=== PATIENT | female | born 1970 | race African-American/Black ===

== ENCOUNTER 2016-03-10 07:19 | Emergency (ER) | payer OTHER ==
[2016-03-10 07:27] VITALS: BMI 36.0
--- NOTE | 2016-03-10 08:26 | PDOC ---
*Physical Exam - Vital Signs Last Vital Signs Temp Pulse Resp BP Pulse Ox 98.1 F 80 20 132/78 100 03/10/16 07:24 03/10/16 07:24 03/10/16 07:24 03/10/16 07:24 03/10/16 07:24 - Physical Exam Comments: 03/10/16 08:25 Pt seen by the Advanced Practice Provider under my direct supervision Pt interviewed and examined Ancillary studies reviewed I agree with plan as outlined by the Advanced Practice Provider 03/10/16 08:26 ED Treatment Course - LABORATORY CBC & Chemistry Diagram: 03/10/16 08:00 03/10/16 08:00 *DC/Admit/Observation/Transfer Diagnosis at time of Disposition: Epigastric abdominal pain, Midsternal chest pain - Discharge Dispostion Disposition: HOME Condition at time of disposition: Improved - Referrals Referrals: Asad Angel MD [Staff Physician] - Richard Olivares MD [Primary Care Provider] - - Patient Instructions Printed Discharge Instructions: DI for Dyspepsia Additional Instructions: Continue taking medication as previously prescribed and if symptoms return or worsen please return to ED. Otherwise follow-up with your PCP
[2016-03-10 08:27] LABS: BASOPHIL 1.2 % (0-2.0); EOSINOPHIL 1.5 % (0-4.5); MCH 27.3 pg (25.7-33.7); MCHC 32.1 g/dl (32.0-36.0); MEAN CELL VOLUME 85.1 fl (80-96); NEUTROPHILS 63.7 % (42.8-82.8); PLATELET COUNT 298 K/MM3 (134-434); RDW 14.8 % (11.6-15.6); WHITE BLOOD COUNT 6.6 K/mm3 (4.0-10.0)
[2016-03-10 08:47] LABS: ALBUMIN 3.9 g/dl (3.4-5.0); ANION GAP 6 (8-16); CALCIUM 8.6 mg/dL (8.5-10.1); CO2 21 mmol/L (21-32); CREATININE 0.8 mg/dL (0.55-1.02); GLUCOSE,RANDOM 88 mg/dL (74-106); SGOT/AST 11 U/L (15-37); SGPT/ALT 12 U/L (12-78)
[2016-03-10 08:52] LABS: ALK PHOS 62 U/L (45-117); BILIRUBIN,TOTAL 0.4 mg/dL (0.2-1.0); TROPONIN I < 0.02 ng/ml (0.00-0.05)
--- NOTE | 2016-03-10 08:53 | PDOC ---
History of Present Illness - General Chief Complaint: Chest Pain Stated Complaint: CHEST PAIN Time Seen by Provider: 03/10/16 07:33 History Source: Patient, Unavil. due to pt. cond. - History of Present Illness Initial Comments: 03/10/16 08:29 45 y/o female presents to the emergency room with complaints of midsternal pressure after eating oatmeal while at work today. Patient initially thought it might up in her acid reflux took her Pepcid in hope of relief of symptoms. Patient states symptoms did subside slightly but continued also and was concerned for her heart and decided to go to the ER. 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 Patient describes the pain as a pressure as if something is in her mid sternal region but denies any radiation to her left side, diaphoresis, nausea, limitations, or shortness of breath. Timing/Duration: changing over time Severity: mild Associated Symptoms: reports: chest pain Past History - Past Medical History Allergies/Adverse Reactions: Allergies Allergy/AdvReac Type Severity Reaction Status Date / Time No Known Allergies Allergy Verified 03/10/16 07:23 Home Medications: Ambulatory Orders Famotidine [Pepcid] 20 mg PO DAILY #30 tablet 02/12/16 Naproxen [Naprosyn -] 500 mg PO PRN PRN 02/12/16 GI Disorders: No Suicide Attempt (Hx): No Other medical history: migraines - Reproductive History LMP Normal: Yes Is Patient Now?: No - Immunization History Immunization Up to Date: Yes - Psycho/Social/Smoking Cessation Hx Anxiety: No Suicidal Ideation: No Smoking Status: No Smoking History: Former smoker Have you smoked in the past 12 months: No Number of Cigarettes Smoked Daily: 0 If you are a former smoker, when did you quit?: 13 Information on smoking cessation initiated: No Hx Alcohol Use: No Drug/Substance Use Hx: No Substance Use Type: None Patient Lives Alone: No Lives with/in: spouse/SO Review of Systems - Review of Systems Able to Perform ROS?: Yes Constitutional: No: Symptoms Reported HEENTM: No: Symptoms Reported Respiratory: No: Symptoms reported Cardiac (ROS): Yes: Chest Pain ABD/GI: Yes: Indigestion : No: Symptoms Reported Musculoskeletal: No: Symptoms Reported Integumentary: No: Symptoms Reported Neurological: No: Symptoms reported *Physical Exam - Vital Signs Last Vital Signs Temp Pulse Resp BP Pulse Ox 98.1 F 80 20 132/78 100 03/10/16 07:24 03/10/16 07:24 03/10/16 07:24 03/10/16 07:24 03/10/16 07:24 - Physical Exam General Appearance: Yes: Nourished, Appropriately Dressed. No: Apparent Distress HEENT: positive: EOMI, JOSE JUAN. negative: Pale Conjunctivae Neck: positive: Supple Respiratory/Chest: positive: Lungs Clear, Normal Breath Sounds. negative: Chest Tender, Respiratory Distress, Accessory Muscle Use Cardiovascular: positive: Regular Rhythm, Regular Rate. negative: Murmur Gastrointestinal/Abdominal: positive: Soft, Tenderness (mild epigastric. No right upper quadrant tenderness) Musculoskeletal: negative: CVA Tenderness Extremity: positive: Normal Capillary Refill. negative: Pedal Edema Integumentary: positive: Normal Color, Warm, Moist Neurologic: positive: Motor Strength 5/5 (ambulatory) Heart Score/ECG Review - History History: Slightly suspicious - Electrocardiogram EKG: Normal - Age Age: 45-65 - Risk Factors Based on the list above the patient has:: No risk factors known - Troponin Troponin: </= normal limit - Score Heart Score - Total: 1 - ECG Intrepretation Rhythm: Regular Rhythm (rate 69. Intervals are regular. No ST depression or elevation noted.) ED Treatment Course - LABORATORY CBC & Chemistry Diagram: 03/10/16 08:00 03/10/16 08:00 - ADDITIONAL ORDERS Additional order review: 03/10/16 08:00 RBC 3.92 MCV 85.1 MCHC 32.1 RDW 14.8 MPV 9.0 Neutrophils % 63.7 Lymphocytes % 28.3 Monocytes % 5.3 Eosinophils % 1.5 Basophils % 1.2 Medical Decision Making - Medical Decision Making 03/10/16 08:32 Patient with midsternal chest pressure after eating patient would likely indigestion versus esophageal spasm but will order 1 set of cardiac enzymes to rule out ACS. Patient also ordered for Protonix. 03/10/16 11:21 Laboratory Tests 05/13/15 05/13/15 05/13/15 16:50 16:50 16:50 WBC 7.7 Hgb 11.4 Hct 36.3 Plt Count 317 Neutrophils % 49.9 Sodium 143 Potassium 4.1 Chloride 106 Carbon Dioxide 25 Anion Gap 12 BUN 10 Creatinine 0.8 Random Glucose 86 Calcium 8.7 Magnesium 2.0 AST ALT Alkaline Phosphatase Troponin I Serum , Qual Negative Urine Ketones Negative Ur Leukocyte Esterase Trace H D Urine WBC 2 03/10/16 03/10/16 08:00 08:00 WBC 6.6 Hgb 10.7 Hct 33.4 Plt Count Neutrophils % 63.7 Sodium 138 Potassium 4.1 Chloride 111 H Carbon Dioxide 21 Anion Gap 6 L BUN 19 H D Creatinine Random Glucose 88 Calcium Magnesium AST 11 L D ALT 12 Alkaline Phosphatase 62 Troponin I < 0.02 Serum , Qual Urine Ketones Ur Leukocyte Esterase Urine WBC Patient states feeling better and requesting to go home. 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 Otherwise follow-up with your PCP
[2016-03-10] MEDS ORDERED: PANTOPRAZOLE SODIUM 40 MG in SODIUM CHLORIDE 100 ML IVPB ONE (10:40)
[2016-03-10] MEDS ORDERED: PANTOPRAZOLE SODIUM 100 ML IVPB ONE (10:53)
--- NOTE | 2016-03-10 11:21 | EKG ---
Test Reason : Blood Pressure : / mmHG Vent. Rate : 069 BPM Atrial Rate : 069 BPM P-R Int : 150 ms QRS Dur : 086 ms QT Int : 390 ms P-R-T Axes : 002 055 043 degrees QTc Int : 417 ms NORMAL SINUS RHYTHM NORMAL ECG WHEN COMPARED WITH ECG OF 25-NOV-2015 13:57, NO SIGNIFICANT CHANGE WAS FOUND Confirmed by KENAN SANCHEZ MD ([id number]) on 03/10/2016 11:20:32 AM Referred By: Confirmed By:KENAN SANCHEZ MD
[2016-03-10 11:55] VITALS: BP 114/74; PULSE 68; TEMP 98
== END 2016-03-10 11:50 | disposition home or self-care (01) ==
LOC: JER 07:19
DX: R10.13 Epigastric pain (principal)
CPT/HCPCS: 36415; 80053; 82550; 84484; 85025; 93005; 93010; 99282-25

== ENCOUNTER 2016-03-11 08:38 | Emergency (ER) | payer OTHER ==
[2016-03-11 08:45] VITALS: TEMP 98; BMI 36.0
--- NOTE | 2016-03-11 10:00 | PDOC ---
History of Present Illness - General History Source: Patient Exam Limitations: No Limitations <Vanessa Kellogg - Last Filed: 03/11/16 11:59> - General History Source: Patient Exam Limitations: No Limitations - History of Present Illness Beta Margaret Contraindications (Core Measure): Yes: Not Prescribed <RandyMalina - Last Filed: 03/11/16 13:06> - General Chief Complaint: Chest Pain Stated Complaint: CHEST TIGHTNESS (REVISIT) Time Seen by Provider: 03/11/16 09:44 - History of Present Illness Initial Comments: 03/11/16 11:15 The patient is a 45-year-old female, with a significant past medical history of migraines, who presents to the ED with midsternal chest discomfort that began yesterday. Pt states that this discomfort began after the patient was eating oatmeal at work. She reports taking a Pepcid that helped to alleviate her symptoms. She states that her symptoms did subside but did recur and worsened today. Pt states that she feels like something is stuck in her chest. Her discomfort is not worsened by deep inspiration. Pt denies any fever, chills, or cough. Pt denies any nausea or vomiting. Pt denies any recent travel or leg swelling. Social Hx. Pt denies any tobacco, alcohol, or drug use. (Vanessa Kellogg) Past History <Vanessa Kellogg - Last Filed: 03/11/16 11:59> - Past Medical History GI Disorders: No Suicide Attempt (Hx): No Other medical history: migraines - Immunization History Immunization Up to Date: Yes - Psycho/Social/Smoking Cessation Hx Anxiety: No Suicidal Ideation: No Smoking Status: No Smoking History: Never smoked Have you smoked in the past 12 months: No Number of Cigarettes Smoked Daily: 0 If you are a former smoker, when did you quit?: 13 Information on smoking cessation initiated: No Hx Alcohol Use: No Drug/Substance Use Hx: No Substance Use Type: None <Malina Padilla - Last Filed: 03/11/16 13:06> - Past Medical History Allergies/Adverse Reactions: Allergies Allergy/AdvReac Type Severity Reaction Status Date / Time No Known Allergies Allergy Verified 03/11/16 08:41 Home Medications: Ambulatory Orders Famotidine [Pepcid] 20 mg PO DAILY #30 tablet 02/12/16 Naproxen [Naprosyn -] 500 mg PO PRN PRN 02/12/16 Magnesium 250 mg PO DAILY PRN 03/11/16 Review of Systems - Review of Systems Able to Perform ROS?: Yes <Vanessa Kellogg - Last Filed: 03/11/16 11:59> <Malina Padilla - Last Filed: 03/11/16 13:06> - Review of Systems Comments:: 03/11/16 11:15 GENERAL/CONSTITUTIONAL: No: fever, chills, weakness, loss of appetite. HEAD, EYES, EARS, NOSE AND THROAT: No: change in vision, ear pain, discharge, sore throat, throat swelling. CARDIOVASCULAR: No: lightheadedness, palpitations, syncope. (+)Chest discomfort. RESPIRATORY: No: cough, shortness of breath, wheezing, hemoptysis, stridor. GASTROINTESTINAL: No: nausea, vomiting, abdominal cramping, diarrhea, rectal bleeding, constipation. GENITOURINARY: No: dysuria, hematuria, frequency, urgency, flank pain. MUSCULOSKELETAL: No: back pain, neck pain, joint pain, muscle swelling or pain SKIN AND BREASTS: No: lesions, pallor, rash or easy bruising. NEUROLOGIC: No: headache, vertigo, paresthesias, weakness ENDOCRINE: No: unexplained weight gain or loss HEMATOLOGIC/LYMPHATIC: No: anemia, easy bleeding, swelling nodes (Vanessa Kellogg) *Physical Exam <Vanessa Kellogg - Last Filed: 03/11/16 11:59> <Malina Padilla - Last Filed: 03/11/16 13:06> - Vital Signs Last Vital Signs Temp Pulse Resp BP Pulse Ox 98.0 F 70 18 129/69 100 03/11/16 08:43 03/11/16 08:43 03/11/16 08:43 03/11/16 08:43 03/11/16 08:43 - Physical Exam Comments: 03/11/16 11:51 GENERAL: The patient is in no acute distress. HEAD: Normal with no signs of trauma. EYES: PERRLA, EOMI, sclera anicteric, conjunctiva clear. ENT: Ears normal, nares patent, oropharynx clear without exudates. Moist mucous membranes. NECK: Normal range of motion, supple without lymphadenopathy, JVD, or masses. LUNGS: Breath sounds equal, clear to auscultation bilaterally. No wheezes, and no crackles. HEART:Regular rate and rhythm, normal S1 and S2 without murmur, rub or gallop. ABDOMEN: Soft, nontender, normoactive bowel sounds. No guarding, no rebound. EXTREMITIES: Normal range of motion, no edema. No clubbing or cyanosis. No erythema, or tenderness. NEUROLOGICAL: Cranial nerves II through XII grossly intact. Normal speech. No focal neurological deficits. MUSCULOSKELETAL: Back non-tender to palpation, no CVA tenderness SKIN: Warm, Dry, normal turgor, no rashes or lesions noted. (Vanessa Kellogg) Heart Score/ECG Review #1 ECG reviewed & interpreted by me at: 10:22 General ECG Interpretation: Sinus Rhythm, Normal Rate, Normal Intervals, No acute ischemic changes <Malina Padilla - Last Filed: 03/11/16 13:06> - ADDITIONAL ORDERS Additional order review: Laboratory Results 03/11/16 10:08 Creatine Kinase 106 Troponin I < 0.02 - RADIOLOGY Radiology Studies Ordered: Category Date Time Status CHEST PA & LAT [RAD] Stat Radiology 03/11/16 10:05 Completed - Medications Given in the ED: ED Medications Discontinued Medications Generic Name Dose Route Start Last Admin Trade Name Freq PRN Reason Stop Dose Admin Ranitidine HCl 150 mg 03/11/16 10:31 03/11/16 10:34 Zantac - PO 03/11/16 10:32 150 mg ONCE ONE Administration Medical Decision Making <Vanessa Kellogg - Last Filed: 03/11/16 11:59> <Malina Padilla - Last Filed: 03/11/16 13:06> - Medical Decision Making 03/11/16 10:00 A portion of this note was documented by scribe services under my direction. I have reviewed the details of the note, within reason, and agree with the documentation with the following case summary and management plan written by me. Nursing documentation reviewed and incorporated into medical decision making 03/11/16 10:22 This is a 45 yo F with a history Migraines who presents to the ER with a complaint of persistent chest/epigastric pain No vomiting symptoms have been present since early in the morning on No associated fevers or chills No shortness of breath Pt was seen in the ER yesterday Cardiac work up negative Pt asked to follow up with GI Pt returns to the ER Requesting a Chest x ray 03/11/16 10:29 Will: repeat trop EKG done Give pepcid Do CXR 03/11/16 12:00 03/11/16 12:00 Laboratory Tests 03/11/16 10:08 Creatine Kinase 106 Troponin I < 0.02 03/11/16 13:05 Chest x-ray: Negative. Will discharged home. Please keep follow-up with your primary care physician as well as GI. Return to the ER for any other concerns or complaints. (Malina Padilla) *DC/Admit/Observation/Transfer <Vanessa Kellogg - Last Filed: 03/11/16 11:59> - Discharge Dispostion Admit: No <Malina Padilla - Last Filed: 03/11/16 13:06> Diagnosis at time of Disposition: Atypical chest pain - Discharge Dispostion Disposition: HOME Condition at time of disposition: Stable - Referrals Referrals: Richard Olivares MD [Primary Care Provider] - - Patient Instructions Printed Discharge Instructions: DI for Atypical Chest Pain Additional Instructions: Return to the emergency department immediately with ANY new, persistent or worsening symptoms. Continue any medications as previously prescribed by your physician. You should follow up with your primary doctor as soon as possible regarding today's emergency department visit. . Please make sure your doctor reviews the results of your emergency evaluation. Thank you for coming to the Emergency Department today for your care. It was a pleasure to see you today. Please note that your evaluation is INCOMPLETE until you follow-up with your doctor. - Attestations Scribe Attestion: 03/11/16 11:55 Documentation prepared by Vanessa Kellogg, acting as medical clerical assistant for Malina Padilla MD. (Vanessa Kellogg)
[2016-03-11] MEDS ORDERED: RANITIDINE HCL 150 MG TABLET (FP) PO ONE (10:31)
[2016-03-11] MEDS ORDERED: RANITIDINE HCL 150 MG TABLET (FP) ONE (10:33)
[2016-03-11 10:45] LABS: TROPONIN I < 0.02 ng/ml (0.00-0.05)
--- NOTE | 2016-03-11 10:52 | EKG ---
Test Reason : Blood Pressure : / mmHG Vent. Rate : 066 BPM Atrial Rate : 066 BPM P-R Int : 170 ms QRS Dur : 084 ms QT Int : 374 ms P-R-T Axes : 063 073 069 degrees QTc Int : 392 ms NORMAL SINUS RHYTHM NORMAL ECG WHEN COMPARED WITH ECG OF 10-MAR-2016 07:33, NO SIGNIFICANT CHANGE WAS FOUND Confirmed by CAROLE ACE MD ([id number]) on 03/11/2016 10:52:16 AM Referred By: Confirmed By:CAROLE ACE MD
[2016-03-11 13:17] VITALS: BP 111/66; PULSE 60
== END 2016-03-11 13:17 | disposition home or self-care (01) ==
LOC: JER 08:38
DX: R07.89 Other chest pain (principal); Z87.891 Personal history of nicotine dependence
CPT/HCPCS: 36415; 71020-TC; 82550; 84484; 93005; 93010; 99284-25

== ENCOUNTER → 2016-03-21 | Emergency (ER) | payer OTHER ==
[2016-03-21 09:40] VITALS: BMI 36.0
--- NOTE | 2016-03-21 09:53 | PDOC ---
History of Present Illness - General History Source: Patient - History of Present Illness Initial Comments: 03/21/16 10:21 Ms. Choudhury is an obese 45 y/o female with a PMH of migraines, presenting to the ED today complaining of chest pain. Pt. presents to ED after seeing Dr. Kemp. Pt. states that she has been having chest pain since 03/11/16 and the pain has remained unchanged. She states the pain is sub-sternal and is currently a 6/10. She describes the pain as if something is 'stuck in her chest' . Denies palpitations. The pain seems to be worse while lying down and resolves slightly while sitting. The pain does increase at times to which she describes the pain as a 10/10. When this happens the pain radiates to her midback. Pt states that she has been avoiding the stairs as she has been experiencing some shortness of breath. Denies N/V/D. Her she ate a small breakfast this morning. Pt. does not have a cardiac history and does not have a history of HTN, DM, or smoking. GENERAL/CONSTITUTIONAL: No fever or chills. No weakness. No weight change. HEAD, EYES, EARS, NOSE AND THROAT: No change in vision. No ear pain or discharge. No sore throat. CARDIOVASCULAR: (+) chest pain. (-) palpitations or edema. RESPIRATORY: (+) SOB with exertion No cough, wheezing. GASTROINTESTINAL: No nausea, vomiting, diarrhea or constipation. GENITOURINARY: No dysuria, frequency, or change in urination. MUSCULOSKELETAL: No joint or muscle swelling or pain. No neck or back pain. SKIN: No rash or easy bruising. NEUROLOGIC: No headache, vertigo, loss of consciousness, or loss of sensation. PSYCHIATRIC: No depression or anxiety. ENDOCRINE: No increased thirst. No abnormal weight change. HEMATOLOGIC/LYMPHATIC: No anemia, easy bleeding, or history of blood clots. ALLERGIC/IMMUNOLOGIC: No hives or skin allergy. No latex allergy. 03/21/16 11:17 <Ninfa Jenkins - Last Filed: 03/21/16 14:28> <Kaykay Soto - Last Filed: 03/21/16 17:02> - General Chief Complaint: Chest Pain Stated Complaint: CHEST PAIN Time Seen by Provider: 03/21/16 09:47 Past History - Past Medical History GI Disorders: No Suicide Attempt (Hx): No Other medical history: migraines - Immunization History Immunization Up to Date: Yes - Psycho/Social/Smoking Cessation Hx Anxiety: No Suicidal Ideation: No Smoking Status: No Smoking History: Never smoked Have you smoked in the past 12 months: No Number of Cigarettes Smoked Daily: 0 If you are a former smoker, when did you quit?: 13 Information on smoking cessation initiated: No Hx Alcohol Use: No Drug/Substance Use Hx: No Substance Use Type: None <Gregory,Ninfa - Last Filed: 03/21/16 14:28> <Kaykay Soto - Last Filed: 03/21/16 17:02> - Past Medical History Allergies/Adverse Reactions: Allergies Allergy/AdvReac Type Severity Reaction Status Date / Time No Known Allergies Allergy Verified 03/21/16 09:36 Home Medications: Ambulatory Orders Famotidine [Pepcid] 20 mg PO DAILY #30 tablet 02/12/16 Naproxen [Naprosyn -] 500 mg PO PRN PRN 02/12/16 Magnesium 250 mg PO DAILY PRN 03/11/16 *Physical Exam - Vital Signs Last Vital Signs Temp Pulse Resp BP Pulse Ox 98.0 F 66 18 132/66 100 03/21/16 09:37 03/21/16 09:37 03/21/16 09:37 03/21/16 09:37 03/21/16 09:37 - Physical Exam Comments: 03/21/16 10:47 GENERAL: The patient is awake, alert, and fully oriented, in no acute distress. HEAD: Normal with no signs of trauma. ENT: Pupils equal, round and reactive to light, extraocular movements intact, sclera anicteric, conjunctiva clear. Neck supple. LUNGS: Clear to auscultation bilaterally. Normal excursion. No respiratory distress or use of accessory muscles. CV: RRR, S1/S2, no MRG. Cap refill < 2 sec. ABDOMEN: Soft, non-distended, non-tender. EXTREMITIES: Normal range of motion, no edema. NEUROLOGICAL: Normal speech, normal gait. CN II-XII grossly intact. PSYCH: Normal mood, normal affect. SKIN: Warm, dry, normal turgor, no rashes or lesions noted. <Sciliano,Ninfa - Last Filed: 03/21/16 14:28> - Vital Signs Last Vital Signs Temp Pulse Resp BP Pulse Ox 98.8 F 87 20 156/80 100 03/21/16 11:17 03/21/16 11:17 03/21/16 11:17 03/21/16 11:17 03/21/16 10:13 <SotoKaykay - Last Filed: 03/21/16 17:02> ED Treatment Course - LABORATORY CBC & Chemistry Diagram: 03/21/16 10:10 03/21/16 10:10 <Ninfa Jenkins - Last Filed: 03/21/16 14:28> - LABORATORY CBC & Chemistry Diagram: 03/21/16 10:10 03/21/16 10:10 - ADDITIONAL ORDERS Additional order review: Laboratory Results 03/21/16 03/21/16 03/21/16 11:47 11:00 10:10 INR 1.16 H Sodium Potassium Chloride Carbon Dioxide Anion Gap BUN Creatinine Creat Clearance w eGFR Random Glucose Calcium Total Bilirubin AST ALT Alkaline Phosphatase Creatine Kinase 265 H D CK-MB (CK-2) < 1.000 Troponin I < 0.02 Total Protein Albumin Urine Color Straw Urine Appearance Clear Urine pH 6.0 Ur Specific [place] 1.008 Urine Protein Negative Urine Glucose (UA) Negative Urine Ketones Negative Urine Blood Negative Urine Nitrite Negative Urine Bilirubin Negative Urine Urobilinogen Negative Ur Leukocyte Esterase 3+ H D Urine RBC 3 Urine WBC 12 Ur Epithelial Cells Few Urine Bacteria Rare Urine Mucus Rare 03/21/16 10:10 INR Sodium 136 Potassium 5.2 H D Chloride 106 Carbon Dioxide 21 Anion Gap 9 BUN 13 D Creatinine 0.9 Creat Clearance w eGFR > 60 Random Glucose 75 Calcium 9.6 Total Bilirubin 0.4 AST 30 D ALT 15 D Alkaline Phosphatase 64 Creatine Kinase CK-MB (CK-2) Troponin I Total Protein 7.6 Albumin 4.2 Urine Color Urine Appearance Urine pH Ur Specific [place] Urine Protein Urine Glucose (UA) Urine Ketones Urine Blood Urine Nitrite Urine Bilirubin Urine Urobilinogen Ur Leukocyte Esterase Urine RBC Urine WBC Ur Epithelial Cells Urine Bacteria Urine Mucus 03/21/16 10:10 RBC 4.08 MCV 85.1 MCHC 32.3 RDW 14.9 MPV 9.1 Neutrophils % 64.1 Lymphocytes % 28.9 Monocytes % 5.3 Eosinophils % 0.9 Basophils % 0.8 <Kaykay Soto - Last Filed: 03/21/16 17:02> Medical Decision Making - Medical Decision Making 03/21/16 10:47 Ms. Choudhury is a 45 y/o female presenting with atypical chest pain lasting 2 weeks. Will order cardiac labs and EKG to r/o ACS. Could potentially be pericarditis given relieving factors or prinzmetal angina given history. Will consult cardiology, Dr. Martinez. Re-evaluate. EKG shows Q waves in II, III, aVF. No acute ST-T wave changes.Will compare to old EKG Consulted with cardiology. Dr. Martinez to see patient. 03/21/16 11:[address] Escalona. Pt. will be transferred to [facility] at this time for a cardiac cath. Receiving physician is Dr. Carson. 03/21/16 11:10 Troponin is negative at this time. 03/21/16 14:29 <Ninfa Jenkins - Last Filed: 03/21/16 14:28> *DC/Admit/Observation/Transfer - Transfer to Acute Care Facility Receiving Facility: [facility]. Accepting Physician:: Dr. Carson <Ninfa Jenkins - Last Filed: 03/21/16 14:28> - Attestations Physician Attestion: I reviewed the case with the mid-level practitioner and agree with the mid- level practitioner's assessment, diagnosis and disposition. <Kaykay Soto - Last Filed: 03/21/16 17:02> Diagnosis at time of Disposition: Atypical chest pain - Discharge Dispostion Disposition: TRANSFER ACUTE CARE/OTHER HOSP - Referrals Referrals: Sanchez Kemp MD [Primary Care Provider] -
[2016-03-21 10:28] LABS: BASOPHIL 0.8 % (0-2.0); EOSINOPHIL 0.9 % (0-4.5); MCH 27.5 pg (25.7-33.7); MCHC 32.3 g/dl (32.0-36.0); MEAN CELL VOLUME 85.1 fl (80-96); MEAN PLT VOLUME 9.1 fl (7.5-11.1); NEUTROPHILS 64.1 % (42.8-82.8); PLATELET COUNT 314 K/MM3 (134-434); RDW 14.9 % (11.6-15.6); WHITE BLOOD COUNT 8.5 K/mm3 (4.0-10.0)
[2016-03-21 10:49] LABS: ALBUMIN 4.2 g/dl (3.4-5.0); ALK PHOS 64 U/L (45-117); ANION GAP 9 (8-16); BILIRUBIN,TOTAL 0.4 mg/dL (0.2-1.0); CALCIUM 9.6 mg/dL (8.5-10.1); CO2 21 mmol/L (21-32); CREATININE 0.9 mg/dL (0.55-1.02); GLUCOSE,RANDOM 75 mg/dL (74-106); SGPT/ALT 15 U/L (12-78); TOT PROT 7.6 g/dl (6.4-8.2)
[2016-03-21 10:50] LABS: SGOT/AST 30 U/L (15-37)
[2016-03-21 10:51] LABS: TROPONIN I < 0.02 ng/ml (0.00-0.05)
--- NOTE | 2016-03-21 10:59 | EKG ---
Test Reason : Blood Pressure : / mmHG Vent. Rate : 067 BPM Atrial Rate : 067 BPM P-R Int : 164 ms QRS Dur : 086 ms QT Int : 382 ms P-R-T Axes : 057 061 055 degrees QTc Int : 403 ms NORMAL SINUS RHYTHM WITH SINUS ARRHYTHMIA NORMAL ECG WHEN COMPARED WITH ECG OF 11-MAR-2016 08:44, NO SIGNIFICANT CHANGE WAS FOUND Confirmed by MICHAEL NEAL MD ([id number]) on 03/21/2016 10:59:04 AM Referred By: Confirmed By:MICHAEL NEAL MD
[2016-03-21 11:19] VITALS: BP 156/80; PULSE 87; TEMP 98.8
[2016-03-21 11:20] LABS: URINE APPEARANCE CLEAR; URINE BILIRUBIN NEGATIVE (NEGATIVE); URINE BLOOD NEGATIVE (NEGATIVE); URINE COLOR STRAW; URINE GLUCOSE (UA) NEGATIVE (NEGATIVE); URINE KETONE NEGATIVE (NEGATIVE); URINE NITRITE NEGATIVE (NEGATIVE); URINE PROTEIN NEGATIVE (NEGATIVE); URINE UROBILINOGEN NEGATIVE E.U./dl (0.2-1.0)
[2016-03-21 11:22] LABS: URINE LEUK ESTERASE 3+ (NEGATIVE)
[2016-03-21 11:23] LABS: URINE BACTERIA RARE /hpf (NONE SEEN); URINE MUCUS RARE; URINE RBC 3 /hpf (0-3); URINE WBC 12 /hpf (3-5)
--- NOTE | 2016-03-21 11:27 | CON.CARD ---
Consult Consult Specialty:: Cardiology Referred by:: ER Reason for Consultation:: Chest pain - History of Present Illness Chief Complaint: chest pain History of Present Illness: 45 year old woman with persistent atypical chest pain, multiple hospital visits for this, prior nuclear stress test 10/2015 showed normal perfusion, echo showed normal structural heart with trivial pericardial effusion, cta in recent past showed no PE and no aortic dissection. Pt. was recently treated for presumed pericarditis but did not respond. she has had chest pain for the past week, continuous, substernal, worse with lying down, improved with sitting up and leaning forward. no associated symptoms. she was planned for outpatient cardiac cath this past monday but did not go as she didnt have a ride. she was seen in office today and sent to er for further evaluation. seen and examined in the er. still having chest pain, again improved with leaning forward. no other symptoms currently. - History Source History Provided By: Patient, Medical Record Limitations to Obtaining History: No Limitations - Alcohol/Substance Use Hx Alcohol Use: No - Smoking History Smoking history: Never smoked Have you smoked in the past 12 months: No Aproximately how many cigarettes per day: 0 If you are a former smoker, when did you quit?: 13 - Social History ADL: Independent History of Recent Travel: No Home Medications - Allergies Allergies/Adverse Reactions: Allergies Allergy/AdvReac Type Severity Reaction Status Date / Time No Known Allergies Allergy Verified 03/21/16 09:36 - Home Medications Home Medications: Ambulatory Orders Famotidine [Pepcid] 20 mg PO DAILY #30 tablet 02/12/16 Naproxen [Naprosyn -] 500 mg PO PRN PRN 02/12/16 Magnesium 250 mg PO DAILY PRN 03/11/16 Family Disease History - Family Disease History Family History: Denies Review of Systems - Review of Systems Constitutional: denies: No Symptoms, Chills, Diaphoresis, Fever, Lethargy, Loss of Appetite, Malaise, Night Sweats, Unintentional Wgt. Loss, Weakness, Other Eyes: denies: No Symptoms, Blind Spots, Blurred Vision, Double Vision, Eye Pain , Floaters, Photophobia, Recent Change in Vision, Other HENT: denies: No Symptoms, Difficult Swallowing, Ear Discharge, Ear Pain, Epistaxis, Gingival Bleeding, Hearing Loss, Mouth Swelling, Nasal Congestion, Ocular Prosthesis, Throat Pain, Toothache, Ringing in Ears, Other Neck: denies: No Symptoms, Decreased ROM, Lumps, Pain on Movement, Stiffness, Swollen Glands, Tenderness, Other Cardiovascular: reports: Chest Pain. denies: No Symptoms, Edema, Palpitations, Shortness of Breath, Other Respiratory: denies: No Symptoms, Cough, Exercise Intolerance, Hemoptysis, Orthopnea, PND, Snoring, SOB, SOB on Exertion, Wheezing, Other Gastrointestinal: denies: No Symptoms, Abdominal Pain, Bloating, Constipation, Diarrhea, Dysphagia, Indigestion, Melena, Nausea, Rectal Bleeding, Vomiting, Vomiting Blood, Other Genitourinary: denies: No Symptoms, Burning, Discharge, Dysuria, Flank Pain, Frequency, Hematuria, Incontinence, Lesions, Menses, Pain, Testicular Mass, Testicular Pain, Testicular Swelling, Urgency, Vaginal Bleeding, Other Breasts: denies: No Symptoms Reported, See HPI, Breast Implants, Discharge from Nipple, Lumps, Pain, Skin Changes, Other Musculoskeletal: denies: No Symptoms, Back Pain, Crepitus, Decreased ROM, Extremity Pain, Joint Pain, Joint Swelling, Muscle Pain, Muscle Cramps, Muscle Weakness, Other Integumentary: denies: No Symptoms, Blister, Bruising, Change in Color, Eczema, Erythema, Incision, Lesions, Lump, Pallor, Pruritis, Rash, Wound, Other Neurological: denies: No Symptoms, Change in LOC, Change in Speech, Confusion, Dizziness, Headache, Incoordination, Numbness, Parasthesia, Pre-Existing Deficit , Seizure, Syncope, Tremors, Unsteady Gait, Weakness, Other Endocrine: denies: No Symptoms, Excessive Sweating, Flushing, Increased Hunger, Increased Thirst, Intolerance to Cold, Intolerance to Heat, Unexplained Weight Gain, Unexplained Weight Loss, Other Hematology/Lymphatic: denies: No Symptoms, Easily Bruised, Excessive Bleeding, Swollen Glands, Other Psychiatric: denies: No Symptoms, Altered Sleep Pattern, Anxiety, Depression, Hallucinations, Panic, Paranoia, Suicidal, Other Vital Signs: Vital Signs Temperature 98.8 F 03/21/16 11:17 Pulse Rate 87 03/21/16 11:17 Respiratory Rate 20 03/21/16 11:17 Blood Pressure 156/80 03/21/16 11:17 O2 Sat by Pulse Oximetry (%) 100 03/21/16 10:13 Constitutional: Yes: No Distress, Calm, Obese Eyes: Yes: WNL, Conjunctiva Clear, EOM Intact, PERRL HENT: Yes: WNL, Atraumatic, Normocephalic Neck: Yes: WNL, Supple, Trachea Midline Respiratory: Yes: WNL, Regular, CTA Bilaterally. No: Rales, Rhonchi, Wheezes Gastrointestinal: Yes: WNL, Normal Bowel Sounds, Soft. No: Distention, Tenderness Renal/: Yes: WNL Cardiovascular: Yes: Regular Rate and Rhythm. No: Bradycardia, Tachycardia, Pulse Irregular, Gallop, Rub, Varicosities JVD: No Carotid Bruit: No PMI: Non-Displaced Heart Sounds: Yes: S1, S2. No: Split S2, S3, S4, Clicks, Gallop, Rub, Bruit Murmur: No: Systolic Murmur, Diastolic Murmur Musculoskeletal: Yes: WNL Extremities: Yes: WNL Edema: No Peripheral Pulses WNL: Yes Peripheral Pulses: 2+ Left Doralis Pedis, 2+ Right Dorsalis Pedis Integumentary: Yes: WNL Neurological: Yes: WNL, Alert, Oriented, Cran Nerves II-XII Intact ...Motor Strength: WNL Psychiatric: Yes: WNL, Alert, Oriented - Other Data Labs, Other Data: CBC, BMP 03/21/16 10:10 03/21/16 10:10 Troponin, BNP 03/21/16 10:10 Troponin I < 0.02 Troponin, BNP 03/21/16 10:10 Troponin I < 0.02 ekg-nsr 67bpm, early repolarization in inferior leads Echo: Report Reviewed Ejection Fraction %: LVEF > or = 40 % Imaging - Results Chest X-ray: Report Reviewed, Image Reviewed EKG: Report Reviewed, Image Reviewed Other: Report Reviewed, Image Reviewed Problem List - Problems (1) Atypical chest pain Code(s): R07.89 - OTHER CHEST PAIN (2) Palpitations Code(s): R00.2 - PALPITATIONS Assessment/Plan 45 year old woman with persistent atypical chest pain, multiple hospital visits for this, prior nuclear stress test 10/2015 showed normal perfusion, echo showed normal structural heart with trivial pericardial effusion, cta in recent past showed no PE and no aortic dissection. Pt. was recently treated for presumed pericarditis but did not respond. she has had chest pain for the past week, continuous, substernal, worse with lying down, improved with sitting up and leaning forward. no associated symptoms. she was planned for outpatient cardiac cath this past monday but did not go as she didnt have a ride. she was seen in office today and sent to er for further evaluation. seen and examined in the er. still having chest pain, again improved with leaning forward. no other symptoms currently. Chest pain-atypical but persistent and did not respond to outpatient treatment for pericarditis -will transfer for cardiac cath today to [facility] to definitively assess coronary anatomy and re-vascularization if needed -if no sig CAD will plan for more aggressive treatment of presumed pericarditis -cont home medical regimen for now
[2016-03-21 12:12] LABS: INR 1.16 (0.82-1.09); PROTHROMBIN TIME (PATIENT) 12.8 SEC (9.98-11.88)
== END | disposition short-term general hospital (02) ==
LOC: JER 09:31
DX: R07.89 Other chest pain (principal); R00.2 Palpitations
CPT/HCPCS: 36415; 71020-TC; 80053; 81003; 81015; 82550; 82553; 84484; 85025; 85610; 93005; 93010; 99285-25

== ENCOUNTER 2016-05-30 11:50 | Emergency (ER) | payer OTHER ==
[2016-05-30 11:55] VITALS: BP 127/71; PULSE 78; TEMP 98.6; BMI 33.6
[2016-05-30] MEDS ORDERED: KETOROLAC TROMETHAMINE 60 MG/2 ML VIAL IM ONE (12:47)
[2016-05-30] MEDS ORDERED: KETOROLAC TROMETHAMINE 60 MG/2 ML VIAL ONE (12:49)
--- NOTE | 2016-05-30 12:53 | PDOC ---
History of Present Illness - General Chief Complaint: Headache Stated Complaint: MIGRAINES Time Seen by Provider: 05/30/16 12:30 History Source: Patient Exam Limitations: No Limitations - History of Present Illness Initial Comments: 05/30/16 12:49 45 yr female history of migraines states she has had a headache for 4 days not relieved with her usual medication at home. Pt denies nausea has positive photophobia. Pt states she tried to see her neurologist but was unable to get there. Pt states she usually gets toradol and benadryl IM and that helps her break her headache. This is a typical migraine for her. 05/30/16 12:56 Past History - Past Medical History Allergies/Adverse Reactions: Allergies Allergy/AdvReac Type Severity Reaction Status Date / Time No Known Allergies Allergy Verified 05/30/16 11:55 Home Medications: Ambulatory Orders Famotidine [Pepcid] 20 mg PO DAILY #30 tablet 02/12/16 Naproxen [Naprosyn -] 500 mg PO PRN PRN 02/12/16 Magnesium 250 mg PO DAILY PRN 03/11/16 GI Disorders: No Suicide Attempt (Hx): No Other medical history: MIGRAINES - Immunization History Immunization Up to Date: Yes - Psycho/Social/Smoking Cessation Hx Anxiety: No Suicidal Ideation: No Smoking Status: No Smoking History: Never smoked Have you smoked in the past 12 months: No Number of Cigarettes Smoked Daily: 0 If you are a former smoker, when did you quit?: 13 Information on smoking cessation initiated: No Hx Alcohol Use: No Drug/Substance Use Hx: No Substance Use Type: None Neuro Specific PMHX - Complaint Specific PMHX Glaucoma: No Herniated Disk: No Laminectomy: No Migraine: Yes Review of Systems - Review of Systems Able to Perform ROS?: Yes Is the patient limited Japanese proficient: No Constitutional: No: Symptoms Reported HEENTM: No: Symptoms Reported Respiratory: No: Symptoms reported Cardiac (ROS): No: Symptoms Reported ABD/GI: No: Symptoms Reported : No: Symptoms Reported Musculoskeletal: No: Symptoms Reported Integumentary: No: Symptoms Reported Neurological: Yes: See HPI *Physical Exam - Vital Signs Last Vital Signs Temp Pulse Resp BP Pulse Ox 98.6 F 78 18 127/71 100 05/30/16 11:51 05/30/16 11:51 05/30/16 11:51 05/30/16 11:51 05/30/16 11:51 - Physical Exam General Appearance: Yes: Nourished, Appropriately Dressed HEENT: positive: EOMI, JOSE JUAN, Normal ENT Inspection, TMs Normal, Pharynx Normal Neck: positive: Supple Respiratory/Chest: positive: Lungs Clear, Normal Breath Sounds Cardiovascular: positive: Regular Rhythm, Regular Rate Gastrointestinal/Abdominal: positive: Normal Bowel Sounds, Soft Musculoskeletal: positive: Normal Inspection Extremity: positive: Normal Capillary Refill, Normal Inspection, Normal Range of Motion Integumentary: positive: Normal Color, Dry, Warm Neurologic: positive: Fully Oriented, Alert, Normal Mood/Affect, Normal Response , Motor Strength 5/5, Other (photophobia ) ED Treatment Course - ADDITIONAL ORDERS Additional order review: Laboratory Results 05/30/16 12:30 Urine HCG, Qual Negative Medical Decision Making - Medical Decision Making 05/30/16 12:53 cc: migraine headache will give toraodol and benadryl IM negative follow with neurologist this week pt stable ambulatory no distress *DC/Admit/Observation/Transfer Diagnosis at time of Disposition: Migraine Qualifiers: Migraine type: with aura Status migrainosus presence: with status migrainosus Intractability: intractable Qualified Code(s): G43.111 - Migraine with aura, intractable, with status migrainosus - Discharge Dispostion Disposition: HOME Condition at time of disposition: Good - Referrals Referrals: Chantel Soto MD [Primary Care Provider] - - Patient Instructions Additional Instructions: drink at least 2 liters of water a day avoid bright light, noise rest today in a quiet dark room if you can cool compresses to your forehead follow with the neurologist this week return if any worsening symptoms
== END 2016-05-30 13:08 | disposition home or self-care (01) ==
LOC: JERFT 11:50
PROC: 3E0233Z Introduction of Anti-inflammatory into Muscle, Percutaneous Approach (ICD-10-PCS; principal; 2016-05-30)
PROC: 3E023GC Introduction of Other Therapeutic Substance into Muscle, Percutaneous Approach (ICD-10-PCS; 2016-05-30)
DX: G43.111 Migraine with aura, intractable, with status migrainosus (principal)
CPT/HCPCS: 84703; 96372; 99281-25

== ENCOUNTER 2016-06-17 08:45 | Emergency (ER) | payer OTHER ==
[2016-06-17 08:50] VITALS: BP 114/67; PULSE 67; TEMP 98.7; BMI 33.6
[2016-06-17] MEDS ORDERED: KETOROLAC TROMETHAMINE 60 MG/2 ML VIAL IM ONE (09:36)
--- NOTE | 2016-06-17 09:38 | PDOC ---
[id number]: MIGRAINE Time Seen by Provider: 06/17/16 09:29 History Source: Patient - History of Present Illness Initial Comments: 06/17/16 09:34 45 year old female with chronic migraines c/o headache since this am. headaches trigger by lack of sleep. 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 cuevas. Past History - Past Medical History Allergies/Adverse Reactions: Allergies Allergy/AdvReac Type Severity Reaction Status Date / Time No Known Allergies Allergy Verified 06/17/16 08:50 Home Medications: Ambulatory Orders Famotidine [Pepcid] 20 mg PO DAILY #30 tablet 02/12/16 Naproxen [Naprosyn -] 500 mg PO PRN PRN 02/12/16 Magnesium 250 mg PO DAILY PRN 03/11/16 GI Disorders: No Suicide Attempt (Hx): No Other medical history: MIGRAINES - Immunization History Immunization Up to Date: Yes - Psycho/Social/Smoking Cessation Hx Anxiety: No Suicidal Ideation: No Smoking Status: No Smoking History: Never smoked Have you smoked in the past 12 months: No Number of Cigarettes Smoked Daily: 0 If you are a former smoker, when did you quit?: 13 Hx Alcohol Use: No Drug/Substance Use Hx: No Substance Use Type: None Neuro Specific PMHX - Complaint Specific PMHX Glaucoma: No Herniated Disk: No Laminectomy: No Migraine: Yes Review of Systems - Review of Systems Able to Perform ROS?: Yes Is the patient limited German proficient: No HEENTM: No: Symptoms Reported, See HPI, Eye Pain, Blurred Vision, Tearing, Recent change in vision, Double Vision, Cataracts, Ear Pain, Ocular Prothesis, Ear Discharge, Nose Pain, Nose Congestion, Tinnitus, Nose Bleeding, Hearing Loss , Throat Pain, Throat Swelling, Mouth Pain, Dental Problems, Difficulty Swallowing, Mouth Swelling, Other Neurological: Yes: Headache. No: Symptoms reported, See HPI, Numbness, Paresthesia, Pre-Existing Deficit, Seizure, Tingling, Tremors, Weakness, Unsteady Gait, Ataxia, Dizziness, Other *Physical Exam - Vital Signs Last Vital Signs Temp Pulse Resp BP Pulse Ox 98.7 F 67 18 114/67 100 06/17/16 08:48 06/17/16 08:48 06/17/16 08:48 06/17/16 08:48 06/17/16 08:48 - Physical Exam General Appearance: Yes: Appropriately Dressed Respiratory/Chest: positive: Lungs Clear, Normal Breath Sounds Cardiovascular: positive: Regular Rhythm, Regular Rate Gastrointestinal/Abdominal: positive: Normal Bowel Sounds, Soft Extremity: positive: Normal Capillary Refill, Normal Inspection, Normal Range of Motion Integumentary: positive: Normal Color, Dry, Warm 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 toradol/ benadryl. [facility] outpatient follow up *DC/Admit/Observation/Transfer Diagnosis at time of Disposition: Migraine Qualifiers: Migraine type: with aura Status migrainosus presence: without status migrainosus Intractability: not intractable Qualified Code(s): G43.109 - Migraine with aura, not intractable, without status migrainosus - Discharge Dispostion Disposition: HOME Condition at time of disposition: Stable - Referrals Referrals: Chantel Soto MD [Primary Care Provider] - - Patient Instructions Printed Discharge Instructions: Migraine -- Adult Additional Instructions: follow up with your neurologist return to the ER if symptoms worsen/
[2016-06-17] MEDS ORDERED: KETOROLAC TROMETHAMINE 60 MG/2 ML VIAL ONE (09:39)
== END 2016-06-17 10:04 | disposition home or self-care (01) ==
LOC: JERFT 08:45
PROC: 3E0233Z Introduction of Anti-inflammatory into Muscle, Percutaneous Approach (ICD-10-PCS; principal; 2016-06-17)
PROC: 3E023GC Introduction of Other Therapeutic Substance into Muscle, Percutaneous Approach (ICD-10-PCS; 2016-06-17)
DX: G43.109 Migraine with aura, not intractable, without status migrainosus (principal)
CPT/HCPCS: 96372; 99281-25

== ENCOUNTER 2016-07-02 13:05 | Emergency (ER) | payer OTHER ==
[2016-07-02 13:09] VITALS: BP 132/86; PULSE 93; TEMP 98.7; BMI 33.6
--- NOTE | 2016-07-02 13:29 | PDOC ---
History of Present Illness - General Chief Complaint: Cold Symptoms Stated Complaint: SOB Time Seen by Provider: 07/02/16 13:27 History Source: Patient Exam Limitations: No Limitations - History of Present Illness Initial Comments: CHIEF COMPLAINT: 45 y/o afebrile female with PMH migraines c/o cough and wheezing. HISTORY OF PRESENT ILLNESS: The patient states that she had cold symptoms of cough, runny nose and sneezing for a few days starting 5 days ago. She states the runny nose and sneezing have resolved. However, her cough has continued and now she feels like she has chest congestion. She is coughing up yellow phlegm and today while in [employer]ormonism she felt short of breath. She did see her doctor who prescribed her promethazine for cough but she did not take it. Instead she's been taking over the counter mucinex. She denies f/c, n/v/d, earache, CP, abd pain, back pain, hematuria, dysuria. Vital signs on arrival are within normal limits. REVIEW OF SYSTEMS: GENERAL/CONSTITUTIONAL: No fever/chills. No weakness. No weight change. HEAD, EYES, EARS, NOSE AND THROAT: No change in vision. No ear pain or discharge. No sore throat. CARDIOVASCULAR: +SOB. No chest pain. RESPIRATORY: +cough and wheezing. No hemoptysis. GASTROINTESTINAL: No abd pain, nausea, vomiting, diarrhea. GENITOURINARY: No dysuria, frequency, or change in urination. MUSCULOSKELETAL: No joint or muscle swelling or pain. No neck or back pain. SKIN: No rash or easy bruising. NEUROLOGIC: No headache, vertigo, loss of consciousness, or loss of sensation. PHYSICAL EXAM: GENERAL: The patient is awake, alert, and fully oriented, in no acute distress. She is well appearing, ambulatory, in NAD or obvious discomfort, speaks in full sentences. Very intermittent dry cough appreciated throughout exam. HEAD: Normal with no signs of trauma. ENT: Pupils equal, round and reactive to light, extraocular movements intact, sclera anicteric, conjunctiva clear. Neck supple. LUNGS: Clear to auscultation bilaterally. Normal excursion. No respiratory distress or use of accessory muscles. CV: RRR, S1/S2, no MRG. Cap refill < 2 sec. ABDOMEN: Soft, non-distended, non-tender even to deep palpation, no hepatomegaly or splenomegaly, no masses. EXTREMITIES: Normal range of motion, no edema. NEUROLOGICAL: Normal speech, normal gait. CN II-XII grossly intact. SKIN: Warm, dry, normal turgor, no rashes or lesions noted. Past History - Past Medical History Allergies/Adverse Reactions: Allergies Allergy/AdvReac Type Severity Reaction Status Date / Time No Known Allergies Allergy Verified 07/02/16 13:09 Home Medications: Ambulatory Orders Famotidine [Pepcid] 20 mg PO DAILY #30 tablet 02/12/16 Naproxen [Naprosyn -] 500 mg PO PRN PRN 02/12/16 Magnesium 250 mg PO DAILY PRN 03/11/16 Prednisone [Deltasone -] 40 mg PO UTDICT #8 tablet 07/02/16 GI Disorders: No Suicide Attempt (Hx): No Other medical history: NONE - Immunization History Immunization Up to Date: Yes - Psycho/Social/Smoking Cessation Hx Anxiety: No Suicidal Ideation: No Smoking Status: No Smoking History: Never smoked Have you smoked in the past 12 months: No Number of Cigarettes Smoked Daily: 0 If you are a former smoker, when did you quit?: 13 Hx Alcohol Use: No Drug/Substance Use Hx: No Substance Use Type: None *Physical Exam - Vital Signs Last Vital Signs Temp Pulse Resp BP Pulse Ox 98.7 F 93 H 20 132/86 100 07/02/16 13:05 07/02/16 13:05 07/02/16 13:05 07/02/16 13:05 07/02/16 13:05 Medical Decision Making - Medical Decision Making A/P: 45 y/o female with cough and wheezing, who states she was feeling SOB today. Plan is as follows: 1. hcg 2. PO prednisone 3. CXR hcg - negative CXR IMPRESSION: No acute pathology. No significant change from 03/21/16. The patient states she feels a bit better after prednisone. Provided her with CXR results. Will send rx for 4 day course of prednisone and strongly suggested she take the medication her doctor prescribed OR an over the counter allergy medication such as claritin, zyrtec or bronwyn. Pt instructed to f/u with her doctor next week and return to the ER with any worsening or concerning symptoms. The patient verbalizes understanding of all instructions, has no further questions and is awaiting discharge. *DC/Admit/Observation/Transfer Diagnosis at time of Disposition: Shortness of breath, Cough, Seasonal allergic rhinitis - Discharge Dispostion Disposition: HOME Condition at time of disposition: Improved - Referrals Referrals: Chantel Soto MD [Primary Care Provider] - - Patient Instructions Printed Discharge Instructions: DI for Cough -- Adult, Alternative Therapies for Allergies Additional Instructions: Discharge Instructions: -A prescription has been sent to your pharmacy; please take as prescribed -Take the cough medication your doctor prescribed for you -Take an over the counter allergy medicine, such as zyrtec, claritin, or bronwyn. -Follow up with your doctor in 1 week -Return to the ER with any worsening or concerning symptoms
[2016-07-02] MEDS ORDERED: predniSONE 20 MG TABLET (UD) ONE (13:45)
[2016-07-02] MEDS ORDERED: predniSONE 20 MG TABLET (UD) PO ONE (13:48)
== END 2016-07-02 14:49 | disposition home or self-care (01) ==
LOC: JERFT 13:05
DX: J30.2 Other seasonal allergic rhinitis (principal)
CPT/HCPCS: 71020-TC; 84703; 99281-25

== ENCOUNTER 2016-08-19 09:18 | Emergency (ER) | payer OTHER ==
[2016-08-19 09:26] VITALS: BP 136/77; PULSE 93; TEMP 98.2; BMI 34.4
[2016-08-19] MEDS ORDERED: KETOROLAC TROMETHAMINE 30 MG/1 ML VIAL IVPUSH ONE (10:03)
[2016-08-19] MEDS ORDERED: METOCLOPRAMIDE HCL INJECTION 10 MG/2 ML VIAL IVPUSH ONE (10:03)
--- NOTE | 2016-08-19 10:03 | PDOC ---
History of Present Illness <Sony Mandel - Last Filed: 08/19/16 12:21> - General History Source: Patient Exam Limitations: No Limitations - History of Present Illness Initial Comments: 08/19/16 10:11 The patient is a 45 year old female, with significant past medical history of migraines, who presents today complaining of a migraine starting this morning. The patient states that the headache began around 8:00am after working an overnight shift. She was driving her kids to school when she felt pressure across the top of her head as if her head was going to explode. This is not typical of her usual migraines; however, she notes that she had an episode like this once before when she was prescribed a medrol pack. She reports that she was on a Medrol Pack a couple of days ago, but finished the dose. She regularly takes Sumatriptan and naproxen for her migraines and her last dose was taken around 2am this morning. Denies nausea, vomiting. Denies dizziness, lightheadedness. Denies photophobia. Denies fever, chills. Denies chest pain, SOB. Allergies: none reported PCP- Dr. Chantel Soto Neurologist - Dr. You White ([place]) <Juanita Salazar - Last Filed: 08/19/16 12:33> - General Chief Complaint: Headache Stated Complaint: HEADACHE Time Seen by Provider: 08/19/16 09:31 Past History - Past Medical History Cardiac Disorders: Yes (pericarditis) GI Disorders: No Suicide Attempt (Hx): No Other medical history: migraines - Immunization History Immunization Up to Date: Yes - Psycho/Social/Smoking Cessation Hx Anxiety: No Suicidal Ideation: No Smoking Status: No Smoking History: Never smoked Have you smoked in the past 12 months: No Number of Cigarettes Smoked Daily: 0 If you are a former smoker, when did you quit?: 13 Information on smoking cessation initiated: No Hx Alcohol Use: No Drug/Substance Use Hx: No Substance Use Type: None <Sony Mandel - Last Filed: 08/19/16 12:21> <Juanita Salazar - Last Filed: 08/19/16 12:33> - Past Medical History Allergies/Adverse Reactions: Allergies Allergy/AdvReac Type Severity Reaction Status Date / Time No Known Allergies Allergy Verified 08/19/16 09:23 Home Medications: Ambulatory Orders Naproxen [Naprosyn -] 500 mg PO PRN PRN 02/12/16 Amitriptyline HCl [Elavil -] 100 mg PO HS 08/19/16 Colchicine 0.6 mg PO BID 08/19/16 Sumatriptan Succinate [Imitrex] 100 mg PO BID PRN 08/19/16 Topiramate [Topamax] 100 mg PO BID 08/19/16 Review of Systems - Review of Systems Able to Perform ROS?: Yes Comments:: 08/19/16 10:12 GENERAL/CONSTITUTIONAL: No fever or chills. No weakness. HEAD, EYES, EARS, NOSE AND THROAT: No change in vision. No ear pain or discharge. No sore throat. CARDIOVASCULAR: No chest pain or shortness of breath. RESPIRATORY: No cough, wheezing, or hemoptysis. GASTROINTESTINAL: No nausea, vomiting, diarrhea or constipation. GENITOURINARY: No dysuria, frequency, or change in urination. MUSCULOSKELETAL: No joint or muscle swelling or pain. No neck or back pain. SKIN: No rash NEUROLOGIC: +migraine starting this morning. No vertigo, loss of consciousness, or change in strength/sensation. ENDOCRINE: No increased thirst. No abnormal weight change. HEMATOLOGIC/LYMPHATIC: No anemia, easy bleeding, or history of blood clots. ALLERGIC/IMMUNOLOGIC: No hives or skin allergy. <Juanita Salazar - Last Filed: 08/19/16 12:33> *Physical Exam - Vital Signs Last Vital Signs Temp Pulse Resp BP Pulse Ox 98.2 F 93 H 18 136/77 100 08/19/16 09:24 08/19/16 09:24 08/19/16 09:24 08/19/16 09:24 08/19/16 09:24 <Sony Mandel - Last Filed: 08/19/16 12:21> - Vital Signs Last Vital Signs Temp Pulse Resp BP Pulse Ox 98.2 F 93 H 18 136/77 100 08/19/16 09:24 08/19/16 09:24 08/19/16 09:24 08/19/16 09:24 08/19/16 09:24 - Physical Exam Comments: 08/19/16 10:12 GENERAL: Awake, alert, and fully oriented, in no acute distress HEAD: No signs of trauma EYES: PERRLA, EOMI, sclera anicteric, conjunctiva clear ENT: Auricles normal inspection, hearing grossly normal, nares patent, oropharynx clear without exudates. Moist mucosa NECK: Normal ROM, supple, no lymphadenopathy, JVD, or masses LUNGS: Breath sounds equal, clear to auscultation bilaterally. No wheezes, and no crackles HEART: Regular rate and rhythm, normal S1 and S2, no murmurs, rubs or gallops ABDOMEN: Soft, nontender, normoactive bowel sounds. No guarding, no rebound. No masses EXTREMITIES: Normal range of motion, no edema. No clubbing or cyanosis. No cords , erythema, or tenderness NEUROLOGICAL: Cranial nerves II through XII grossly intact. Normal speech, normal gait SKIN: Warm, Dry, normal turgor, no rashes or lesions noted. <Juanita Salazar - Last Filed: 08/19/16 12:33> ED Treatment Course - RADIOLOGY Radiograph Interpretation: 08/19/16 12:32 EXAM#: TYPE/EXAM: RESULT: [id number] CT/HEAD CT WITHOUT CONTRAST CT of the brain without contrast Indication: Severe pressure in the head Comparison study available from 2015. Findings: Imaging of the brain was performed from base to vertex without contrast Ventricular size and configuration are age-appropriate There is no evidence of space-occupying mass or extra-axial fluid collection There is no evidence of acute ischemic pathology There is no evidence of intracranial hemorrhage The visualized extracranial soft tissues are normal Visualized paranasal sinuses are normally aerated The calvarium and skull base are intact Impression: No evidence of intracranial pathology Reported By: Angel Ragland MD 08/19/16 1219 <Juanita Salazar - Last Filed: 08/19/16 12:33> *DC/Admit/Observation/Transfer - Discharge Dispostion Admit: No - Attestations Physician Attestion: 08/19/16 09:35 I, Dr. Sony Mandel, attest that this document has been prepared under my direction and personally reviewed by me in its entirety. I further attest, that it accurately reflects all work, treatment, procedures and medical decision -making performed by me. <Sony Mandel - Last Filed: 08/19/16 12:21> - Attestations Scribe Attestion: 08/19/16 10:13 Documentation prepared by DAVID Herbert, acting as medical director occupational health for Sony Mandel DO. <Juanita Salazar - Last Filed: 08/19/16 12:33> Diagnosis at time of Disposition: Atypical migraine - Discharge Dispostion Disposition: HOME Condition at time of disposition: Good - Referrals Referrals: Chantel Soto MD [Primary Care Provider] - - Patient Instructions Printed Discharge Instructions: DI for Migraine Additional Instructions: Sybil- Your CT Scan was normal...... Good [place] with the [employer] treatments.... Return to us if any problems..... Best- Dr. Sony Mandel Keep your appointment with your neurologist
[2016-08-19] MEDS ORDERED: SODIUM CHLORIDE 1,000 ML IV STA (10:05)
[2016-08-19] MEDS ORDERED: METOCLOPRAMIDE HCL INJECTION 10 MG/2 ML VIAL ONE (10:09)
[2016-08-19] MEDS ORDERED: KETOROLAC TROMETHAMINE 30 MG/1 ML VIAL ONE (10:09)
== END 2016-08-19 12:44 | disposition home or self-care (01) ==
LOC: JER 09:18
PROC: 3E0333Z Introduction of Anti-inflammatory into Peripheral Vein, Percutaneous Approach (ICD-10-PCS; principal; 2016-08-19)
PROC: 3E033GC Introduction of Other Therapeutic Substance into Peripheral Vein, Percutaneous Approach (ICD-10-PCS; 2016-08-19)
PROC: 3E033GC Introduction of Other Therapeutic Substance into Peripheral Vein, Percutaneous Approach (ICD-10-PCS; 2016-08-19)
DX: G43.809 Other migraine, not intractable, without status migrainosus (principal)
CPT/HCPCS: 70450-TC; 84703; 96374; 96375; 99282-25

== ENCOUNTER 2016-09-21 20:42 | Emergency (ER) | payer OTHER ==
[2016-09-21 21:08] VITALS: BP 129/79; PULSE 69; TEMP 98.1; BMI 33.6
[2016-09-21] MEDS ORDERED: IBUPROFEN 400 MG TABLET (FP) PO ONE ×2 (23:27→23:40)
--- NOTE | 2016-09-21 23:27 | PDOC ---
History of Present Illness - General History Source: Patient Exam Limitations: No Limitations - History of Present Illness Initial Comments: 09/21/16 23:38 The patient is a 46 year old female with a PMHx of migraines presents to the ED with a migraine. She reports that she is compliant with her medications, but certain stressors exacerbate her pain. She reports the pain is mainly in the left occipital/cervical region. She is followed by a neurologist for her migraines. She denies high caffeine intake and cigarette smoking. <Verónica Torres - Last Filed: 09/21/16 23:37> - General History Source: Patient <Hector Brower - Last Filed: 09/22/16 01:03> - General Chief Complaint: Migraine Headache Stated Complaint: HEADACHE Time Seen by Provider: 09/21/16 23:22 Past History <Verónica Torres - Last Filed: 09/21/16 23:37> - Past Medical History Cardiac Disorders: Yes (pericarditis) GI Disorders: No Suicide Attempt (Hx): No Other medical history: migraine headache - Immunization History Immunization Up to Date: Yes - Psycho/Social/Smoking Cessation Hx Anxiety: No Suicidal Ideation: No Smoking Status: No Smoking History: Never smoked Have you smoked in the past 12 months: No Number of Cigarettes Smoked Daily: 0 If you are a former smoker, when did you quit?: 13 Hx Alcohol Use: No Drug/Substance Use Hx: No Substance Use Type: None <Hector Brower - Last Filed: 09/22/16 01:03> - Past Medical History Allergies/Adverse Reactions: Allergies Allergy/AdvReac Type Severity Reaction Status Date / Time No Known Allergies Allergy Verified 09/21/16 21:06 Home Medications: Ambulatory Orders Naproxen [Naprosyn -] 500 mg PO PRN PRN 02/12/16 Amitriptyline HCl [Elavil -] 100 mg PO HS 08/19/16 Colchicine 0.6 mg PO BID 08/19/16 Topiramate [Topamax] 100 mg PO BID 08/19/16 Sumatriptan Succinate [Imitrex] 50 mg PO BID #30 tablet 09/22/16 Review of Systems - Review of Systems Comments:: 09/21/16 23:39 CONSTITUTIONAL: Absent: fever, no chills, no fatigue EYES: Absent: visual changes ENT: Absent: ear pain, no sore throat CARDIOVASCULAR: Absent: chest pain, no palpitations RESPIRATORY: Absent: cough, no SOB GI: Absent: abdominal pain, no nausea, no vomiting, no constipation, no diarrhea GENITOURINARY: Absent: dysuria, no frequency, no hematuria MUSCULOSKELETAL: Absent: back pain, no arthralgia, no myalgia SKIN: Absent: rash NEURO: Present: migraine <Leora Torresobtoshia Parisi - Last Filed: 09/21/16 23:37> *Physical Exam - Vital Signs Last Vital Signs Temp Pulse Resp BP Pulse Ox 98.1 F 69 18 129/79 100 09/21/16 21:06 09/21/16 21:06 09/21/16 21:06 09/21/16 21:06 09/21/16 21:06 - Physical Exam Comments: 09/21/16 23:40 GENERAL: Well-appearing, well-nourished. HEENT: Mild left sided cervical muscle spasm, Normocephalic, atraumatic. PERRL, EOM intact. CARDIOVASCULAR: Normal S1, S2. Regular rate and rhythm. PULMONARY: Clear to auscultation bilaterally. ABDOMEN: Soft, non-distended, non-tender. EXTREMITIES: Normal ROM in all four extremities. No gross deformities. SKIN: Warm, dry. No rash NEUROLOGICAL: No focal neurological deficits. <Leora Torresobhan Ailin - Last Filed: 09/21/16 23:37> - Vital Signs Last Vital Signs Temp Pulse Resp BP Pulse Ox 98.1 F 69 18 129/79 100 09/21/16 21:06 09/21/16 21:06 09/21/16 21:06 09/21/16 21:06 09/21/16 21:06 <Hector Brower - Last Filed: 09/22/16 01:03> Medical Decision Making - Medical Decision Making 09/22/16 01:02 Dr. Brower: The scribe's documentation has been prepared under my direction and personally reviewed by me in its entirery. I confirm that the note above accurately reflects all work, treatment, procedures, and medical decision making performed by me. <Hector Brower - Last Filed: 09/22/16 01:03> *DC/Admit/Observation/Transfer - Attestations Scribe Attestion: 09/21/16 23:40 Documentation prepared by Verónica Torres, acting as medical claims processor for Hector Brower DO. <Verónica Torres - Last Filed: 09/21/16 23:37> - Discharge Dispostion Admit: No <Hector Brower - Last Filed: 09/22/16 01:03> Diagnosis at time of Disposition: Migraine - Discharge Dispostion Disposition: HOME Condition at time of disposition: Stable - Prescriptions Prescriptions: Sumatriptan Succinate [Imitrex] 50 mg PO BID #30 tablet - Referrals Referrals: Chantel Soto MD [Primary Care Provider] - - Patient Instructions Printed Discharge Instructions: DI for Migraine - Post Discharge Activity Work/School Note: Back to Work
[2016-09-21] MEDS ORDERED: diazePAM 5 MG TABLET PO ONE (23:28)
[2016-09-21] MEDS ORDERED: diazePAM 5 MG TABLET ONE (23:40)
[2016-09-22] MEDS ORDERED: SUMAtriptan SUCCINATE 50 MG TABLET ONE (01:14)
[2016-09-22] MEDS ORDERED: SUMAtriptan SUCCINATE 50 MG TABLET PO SCH (01:15)
== END 2016-09-22 01:19 | disposition home or self-care (01) ==
LOC: JER 20:42
DX: G43.909 Migraine, unspecified, not intractable, without status migrainosus (principal)
CPT/HCPCS: 84703; 99281-25

== ENCOUNTER 2016-09-23 20:27 | Emergency (ER) | payer OTHER ==
[2016-09-23 20:47] VITALS: BP 119/69; PULSE 73; TEMP 98.1; BMI 34.4
[2016-09-23] MEDS ORDERED: KETOROLAC TROMETHAMINE 60 MG/2 ML VIAL IM ONE (21:31)
--- NOTE | 2016-09-23 21:38 | PDOC ---
History of Present Illness - General Chief Complaint: Pain Stated Complaint: PAIN Time Seen by Provider: 09/23/16 20:57 - History of Present Illness Initial Comments: 09/23/16 21:33 CHIEF COMPLAINT: neck pain HISTORY OF PRESENT ILLNESS: 46 yo F with hx of migraines presents to fast track with pain to neck. Patient reports that she was seen in this fast track two days ago for a migraine and was given Valium for her neck pain, which resolved, but returned today. Patient reports that the pain is to the left side of her neck and shoulder and worsens when she moves. She denies any pain to the middle of her neck or back. She denies any headache at this time, fever , shortness of breath, palpitations, or weakness. No recent travel or sick contacts. 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 Denies tobacco, alcohol, illicit drug use. SURGICAL HISTORY: Denies ALLERGIES: No known drug allergies REVIEW OF SYSTEMS General/Constitutional: Denies fever or chills. Denies weakness, weight change. HEENT: Denies change in vision. Denies ear pain or discharge. Denies sore throat. Cardiovascular: Denies chest pain or shortness of breath. Respiratory: Denies cough, wheezing, or hemoptysis. Gastrointestinal: Denies nausea, vomiting, diarrhea or constipation. Denies rectal bleeding. Genitourinary: Denies dysuria, frequency, or change in urination. Musculoskeletal: Neck discomfort. Skin and breasts: Denies rash or easy bruising. Neurologic: Denies headache, vertigo, loss of consciousness, or loss of sensation. PHYSICAL EXAM General Appearance: Well-appearing, appropriately dressed. No apparent distress. HEENT: EOMI, PERRLA, normal ENT inspection, normal voice, TMs normal, pharynx normal. No conjunctival pallor. No photophobia, scleral icterus. Neck: Supple. Trachea midline. No tenderness, rigidity, carotid bruit, stridor , lymphadenopathy, or thyromegaly. Respiratory/Chest: Lungs CTAB. Cardiovascular: RRR. S1, S2. Gastrointestinal/Abdominal: Normal bowel sounds. Abdomen soft, non-distended. No tenderness or rebound tenderness. No organomegaly, pulsatile mass, guarding , hernia, hepatomegaly, splenomegaly. Lymphatic: No adenopathy, tenderness. Musculoskeletal/Extremities: Tenderness to L trapezius on palpation. Normal inspection. FROM of all extremities, normal capillary refill. Pelvis Stable. No CVA tenderness. No tenderness to extremities, pedal edema, swelling, erythema or deformity. Integumentary: Appropriate color, dry, warm. 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 Fully oriented, alert. Appropriate mood/affect. Motor strength 5/5. No appreciable EOM palsy, facial droop or sensory deficit. Past History - Past Medical History Allergies/Adverse Reactions: Allergies Allergy/AdvReac Type Severity Reaction Status Date / Time No Known Allergies Allergy Verified 09/23/16 20:42 Home Medications: Ambulatory Orders Naproxen [Naprosyn -] 500 mg PO PRN PRN 02/12/16 Amitriptyline HCl [Elavil -] 100 mg PO HS 08/19/16 Colchicine 0.6 mg PO BID 08/19/16 Topiramate [Topamax] 100 mg PO BID 08/19/16 Sumatriptan Succinate [Imitrex] 50 mg PO BID #30 tablet 09/22/16 Diazepam [Valium] 5 mg PO HS PRN #5 tablet MDD 1 09/23/16 Naproxen [Naprosyn -] 500 mg PO BID #14 tablet 09/23/16 Cardiac Disorders: Yes (pericarditis) GI Disorders: No Suicide Attempt (Hx): No - Immunization History Immunization Up to Date: Yes - Psycho/Social/Smoking Cessation Hx Anxiety: No Suicidal Ideation: No Smoking Status: No Smoking History: Never smoked Have you smoked in the past 12 months: No Number of Cigarettes Smoked Daily: 0 If you are a former smoker, when did you quit?: 13 Information on smoking cessation initiated: No Hx Alcohol Use: No Drug/Substance Use Hx: No Substance Use Type: None *Physical Exam - Vital Signs Last Vital Signs Temp Pulse Resp BP Pulse Ox 98.1 F 73 19 119/69 100 09/23/16 20:43 09/23/16 20:43 09/23/16 20:43 09/23/16 20:43 09/23/16 20:43 Medical Decision Making - Medical Decision Making 09/23/16 21:37 46 yo F with hx of migraines presents to fast track with pain to neck. Patient neurologically intact, pain is likely musculoskeletal in nature. -urine preg -Toradol 60 mg IM -Valium and naproxen rx sent to pharm Advised patient to take medication as prescribed and follow up with orthopedics if symptoms persist past 3-4 days. Advised patient of signs and symptoms for return to ED. Patient verbalized understanding and agrees to plan. *DC/Admit/Observation/Transfer Diagnosis at time of Disposition: Muscle spasm - Discharge Dispostion Disposition: HOME Condition at time of disposition: Stable Admit: No - Prescriptions Prescriptions: Naproxen [Naprosyn -] 500 mg PO BID #14 tablet Diazepam [Valium] 5 mg PO HS PRN #5 tablet MDD 1 PRN Reason: Muscle Spasms - Referrals Referrals: Chantel Soto MD [Primary Care Provider] - David Huggins MD [Staff Physician] - - Patient Instructions Printed Discharge Instructions: DI for Muscle Strain Additional Instructions: Please take medications as prescribed. Do NOT drive or operate machinery while taking Valium. As discussed, please follow up with orthopedics (referral provided) if your symptoms persist past 3-4 days. If you experience any new pain, headache, weakness, blurry vision, shortness of breath, chest pain, difficulty speaking or swallowing, loss of sensation, or any new or worsening symptoms, please return to the ER.
[2016-09-23] MEDS ORDERED: KETOROLAC TROMETHAMINE 60 MG/2 ML VIAL ONE (21:55)
== END 2016-09-23 22:15 | disposition home or self-care (01) ==
LOC: JERFT 20:27
PROC: 3E0233Z Introduction of Anti-inflammatory into Muscle, Percutaneous Approach (ICD-10-PCS; principal; 2016-09-23)
DX: M62.838 Other muscle spasm (principal)
CPT/HCPCS: 84703; 96372; 99281-25

== ENCOUNTER 2016-10-04 08:04 | Emergency (ER) | payer OTHER ==
[2016-10-04 08:16] VITALS: TEMP 97.9; BMI 34.4
--- NOTE | 2016-10-04 08:24 | PDOC ---
History of Present Illness <Brady Swenson - Last Filed: 10/04/16 12:30> - History of Present Illness Initial Comments: 10/04/16 08:59 46F w/ hx of chronic migraines (on amitryptiline and topiramate for ppx and sumatriptan, botox, and medropack for acute sxs) and pericarditis on colchicine presenting with several hours of palpitations. Pt reports that the palpitations are not a pounding sensation but a "skipped beat" feeling in her chest associated with discomfort but no pain or SOB, lasting a few seconds. She states that the palpitations began on route to the hospital to see her who is currently a patient. Once the symptom started, she took her colchicine as she thought it might be pericarditis-related. Her palpitations have been decreasing since it started. Pt was diagnosed with pericarditis about 3 months ago after a full cardiac workup for chest pain. She is on colchicine for a 6 month course. She was never told about a possible cause of it such as lupus. <Lonny Ruiz - Last Filed: 10/04/16 12:46> - General Chief Complaint: Palpitations Stated Complaint: PALPITATIONS Time Seen by Provider: 10/04/16 08:23 Past History <Brady Swenson - Last Filed: 10/04/16 12:30> - Past Medical History Cardiac Disorders: Yes (pericarditis) GI Disorders: No Suicide Attempt (Hx): No Comment:: 10/04/16 09:05 PMH: none other than stated above PSH: Meds: amitryptiline, topiramate, colchicine, sumatriptan, medropack Allergies: NKDA Fam Hx: DM in mother Social Hx: social drinker, no tobacco, no drugs - Immunization History Immunization Up to Date: Yes - Psycho/Social/Smoking Cessation Hx Anxiety: No Suicidal Ideation: No Smoking Status: No Smoking History: Never smoked Have you smoked in the past 12 months: No Number of Cigarettes Smoked Daily: 0 If you are a former smoker, when did you quit?: 13 Information on smoking cessation initiated: No Hx Alcohol Use: No Drug/Substance Use Hx: No Substance Use Type: None <Lonny Ruiz - Last Filed: 10/04/16 12:46> - Past Medical History Allergies/Adverse Reactions: Allergies Allergy/AdvReac Type Severity Reaction Status Date / Time No Known Allergies Allergy Verified 10/04/16 08:13 Home Medications: Ambulatory Orders Naproxen [Naprosyn -] 500 mg PO PRN PRN 02/12/16 Amitriptyline HCl [Elavil -] 100 mg PO HS 08/19/16 Colchicine 0.6 mg PO BID 08/19/16 Topiramate [Topamax] 100 mg PO BID 08/19/16 Sumatriptan Succinate [Imitrex] 50 mg PO BID #30 tablet 09/22/16 Diazepam [Valium] 5 mg PO HS PRN #5 tablet MDD 1 09/23/16 Naproxen [Naprosyn -] 500 mg PO BID #14 tablet 09/23/16 Review of Systems - Review of Systems Comments:: 10/04/16 09:10 GENERAL: No fever, chills, night sweats, or weakness. HEAD, EYES, EARS, NOSE AND THROAT: No change in vision, ear pain, or sore throat CARDIOVASCULAR: No chest pain, +palpitations RESPIRATORY: No cough, wheezing, or hemoptysis. GASTROINTESTINAL: No nausea, vomiting, diarrhea, constipation, or blood in the stool. GENITOURINARY: No dysuria, frequency, or urgency MUSCULOSKELETAL: No joint or muscle swelling or pain. SKIN: No rashes or pruritis ENDOCRINE: No increased thirst. No abnormal weight change NEUROLOGIC: + headache, no dizziness, loss of consciousness, or change in strength/sensation. <Lonny Ruiz - Last Filed: 10/04/16 12:46> *Physical Exam - Vital Signs Last Vital Signs Temp Pulse Resp BP Pulse Ox 97.9 F 88 20 117/64 100 10/04/16 08:13 10/04/16 08:13 10/04/16 08:13 10/04/16 08:13 10/04/16 08:13 <Brady Swenson - Last Filed: 10/04/16 12:30> - Vital Signs Last Vital Signs Temp Pulse Resp BP Pulse Ox 97.9 F 88 20 117/64 100 10/04/16 08:13 10/04/16 08:13 10/04/16 08:13 10/04/16 08:13 10/04/16 08:13 - Physical Exam Comments: 10/04/16 09:11 GENERAL: Awake, alert, and fully oriented, in no acute distress HEAD: normocephalic, atraumatic HEENT: PERRLA, EOMI NECK: Normal ROM, supple, no lymphadenopathy, JVD, or masses HEART: Regular rate and rhythm, normal S1 and S2, no murmurs, rubs or gallops, peripheral pulses normal and equal bilaterally. LUNGS: CTAB, no wheezing, no rales ABDOMEN: Soft, nontender, nondistended, normoactive bowel sounds. No guarding, no rebound. No masses EXTREMITIES: Normal range of motion, no edema. SKIN: Warm, dry, no rashes or lesions noted. NEUROLOGICAL: Cranial nerves II through XII grossly intact. Normal speech, normal gait, no focal sensorimotor deficits <Lonny Ruiz - Last Filed: 10/04/16 12:46> ED Treatment Course - LABORATORY CBC & Chemistry Diagram: 10/04/16 09:26 10/04/16 09:26 - ADDITIONAL ORDERS Additional order review: Laboratory Results 10/04/16 10/04/16 10:49 09:26 Sodium 137 Potassium 4.6 Chloride 104 Carbon Dioxide 23 Anion Gap 10 BUN 16 D Creatinine 0.8 Creat Clearance w eGFR > 60 Random Glucose 122 H D Calcium 9.0 Magnesium 2.5 H Total Bilirubin 0.4 AST 20 D ALT 21 D Alkaline Phosphatase 76 Creatine Kinase 223 H Creatine Kinase Index 0.6 CK-MB (CK-2) 1.393 Troponin I < 0.02 Total Protein 7.6 Albumin 4.0 Serum , Qual Negative 10/04/16 09:26 RBC 4.32 MCV 82.4 MCHC 31.7 L RDW 17.8 H D MPV 9.4 Neutrophils % 86.9 H D Lymphocytes % 9.1 D Monocytes % 3.7 L Eosinophils % 0.0 D Basophils % 0.3 - Medications Given in the ED: ED Medications Discontinued Medications Generic Name Dose Route Start Last Admin Trade Name Gastonq PRN Reason Stop Dose Admin Al Hydroxide/Mg Hydroxide 30 ml 10/04/16 09:33 10/04/16 10:30 Mylanta Oral Suspension - PO 10/04/16 09:34 30 ml ONCE ONE Administration Ranitidine HCl 150 mg 10/04/16 09:33 10/04/16 10:30 Zantac - PO 10/04/16 09:34 150 mg ONCE ONE Administration <Brady Swenson - Last Filed: 10/04/16 12:30> - LABORATORY CBC & Chemistry Diagram: 10/04/16 09:26 10/04/16 09:26 <Lonny Ruiz - Last Filed: 10/04/16 12:46> Medical Decision Making - Medical Decision Making 10/04/16 09:23 46F w/ hx of chronic migraines (on amitryptiline and topiramate for ppx and sumatriptan, botox, and medropack for acute sxs) and pericarditis on colchicine presenting with several hours of palpitations. Exam benign, EKG showing premature atrial complexes. symptoms consistent with PACs. Secondary to stress, metabolic derangements, ischemia? -EKG: PACs -CBC: leukocytosis and neutrophilia, likely due to steroid use -CMP: wnl -Mg: borderline elevated -cardiac profile: mildly elevated CK -preg test: negative 10/04/16 12:00 10/04/16 12:02 10/04/16 12:44 <Lonny Ruiz - Last Filed: 10/04/16 12:46> *DC/Admit/Observation/Transfer <Brady Swenson - Last Filed: 10/04/16 12:30> - Attestations Physician Attestion: 10/04/16 12:44 I, Dr. Lonny Ruiz, attest that this document has been prepared under my direction and personally reviewed by me in its entirety. I further attest, that it accurately reflects all work, treatment, procedures and medical decision -making performed by me. <Lonny Ruiz - Last Filed: 10/04/16 12:46> Diagnosis at time of Disposition: APC (atrial premature contractions) - Discharge Dispostion Disposition: HOME Condition at time of disposition: Improved - Referrals Referrals: Chantel Soto MD [Primary Care Provider] - - Patient Instructions Printed Discharge Instructions: DI for Palpitations Additional Instructions: Activity as tolerated. Stay hydrated. Blood tests showed no acute abnormalities. An EKG confirmed premature atrial contractions (APC) as the cause of your symptoms. These are mostly benign and self-resolving. Continue your medications as previously prescribed by your physician. 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 Bring the blood test and EKG results with you. Return to the emergency department for any new or concerning symptoms, particularly persistent palpitations, chest pain, shortness of breath/ difficulty breathing, cough/fever.
[2016-10-04] MEDS ORDERED: RANITIDINE HCL 150 MG TABLET (FP) PO ONE (09:33)
[2016-10-04] MEDS ORDERED: MAG HYDROX/AL HYDROX/SIMETH 30 ML UNIT-DOSE CUP PO ONE (09:33)
--- NOTE | 2016-10-04 09:47 | PDOC ---
Attending Attestation - Resident Resident Name: Lonny Ruiz - ED Attending Attestation I have performed the following: I have examined & evaluated the patient, The case was reviewed & discussed with the resident, I agree w/resident's findings & plan, Exceptions are as noted - HPI HPI: 10/04/16 09:33 46y/o F with h/o reportedly idiopathic pericarditis s/p complete workup with stress echo over the last 6-8 months, maintained on colchicine, also with severe migraines currently on multiple meds for recent exacerbation, presents with fleeting (1 seconds) episode of palpitation and chest discomfort. Occurring intermittently since last night, slightly increased frequency this morning. She accompanied her to the ED and decided to register for evaluation. Currently asx but she does confirm that she felt the abnormal beat during the EKG performed in triage. - Physicial Exam PE: 10/04/16 09:47 VSS, HR normal well appearing, nad heart regular, no ectopy on auscultation, lungs clear no edema 10/04/16 11:10 bedside echo by Drs. Loco/Tiffany showed no pericardial effusion. - Medical Decision Making 10/04/16 09:48 Patient seen and evaluated with the resident. I agree with the overall evaluation, assessment, and management with the following summary of visit: 46-year-old female with history of pericarditis maintained on colchicine with negative workup otherwise including stress echocardiogram, with recent migraine exacerbation on multiple medications presents with symptomatic and isolated APCs , no other red flags for other cardiopulmonary pathology. Will check electrolytes EKG, bedside echo If remains asymptomatic and without concerning events on telemetry, can follow- up with her automobile and property underwriter at [facility]. 10/04/16 12:29 workup negative, wbc 13 but on steroids. Feels well with only occasional APCs. Urine preg negative. Agrees with d/c plan and f/u with her automobile and property underwriter. understands return criteria. Heart Score/ECG Review #1 ECG reviewed & interpreted by me at: 08:12 General ECG Interpretation: Sinus Rhythm (single APC noted), Normal Rate (95), Normal Intervals (qtc 452, QRS 84), No acute ischemic changes
[2016-10-04] MEDS ORDERED: RANITIDINE HCL 150 MG TABLET (FP) ONE (10:29)
[2016-10-04] MEDS ORDERED: MAG HYDROX/AL HYDROX/SIMETH 30 ML UNIT-DOSE CUP ONE (10:30)
[2016-10-04 10:37] LABS: BASOPHIL 0.3 % (0-2.0); MCH 26.1 pg (25.7-33.7); MCHC 31.7 g/dl (32.0-36.0); MEAN CELL VOLUME 82.4 fl (80-96); MEAN PLT VOLUME 9.4 fl (7.5-11.1); NEUTROPHILS 86.9 % (42.8-82.8); PLATELET COUNT 316 K/MM3 (134-434); RDW 17.8 % (11.6-15.6); WHITE BLOOD COUNT 13.9 K/mm3 (4.0-10.0)
[2016-10-04 11:18] LABS: ANION GAP 10 (8-16); CO2 23 mmol/L (21-32); GLUCOSE,RANDOM 122 mg/dL (74-106)
[2016-10-04 11:26] LABS: ALK PHOS 76 U/L (45-117); BILIRUBIN,TOTAL 0.4 mg/dL (0.2-1.0); CREATININE 0.8 mg/dL (0.55-1.02); SGPT/ALT 21 U/L (12-78); TOT PROT 7.6 g/dl (6.4-8.2); TROPONIN I < 0.02 ng/ml (0.00-0.05)
[2016-10-04 11:28] LABS: CPK 223 IU/L (26-192); MAGNESIUM 2.5 mg/dL (1.8-2.4); SGOT/AST 20 U/L (15-37)
[2016-10-04 12:52] VITALS: BP 118/75; PULSE 60
--- NOTE | 2016-10-04 13:40 | EKG ---
Test Reason : Blood Pressure : / mmHG Vent. Rate : 095 BPM Atrial Rate : 095 BPM P-R Int : 172 ms QRS Dur : 084 ms QT Int : 360 ms P-R-T Axes : 068 064 052 degrees QTc Int : 452 ms SINUS RHYTHM WITH PREMATURE ATRIAL COMPLEXES ST ELEVATION, CONSIDER EARLY REPOLARIZATION, PERICARDITIS, OR INJURY WHEN COMPARED WITH ECG OF 21-MAR-2016 09:40, PREMATURE ATRIAL COMPLEXES ARE NOW PRESENT ST ELEVATION, CONSIDER EARLY REPOLARIZATION, PERICARDITIS, OR INJURY AND SIMILAR TO PREVIOUS TRACING CORELATE CLINICALLY. Confirmed by SUKHDEEP AUSTIN MD ([id number]) on 10/04/2016 1:40:27 PM Referred By: Confirmed By:SUKHDEEP AUSTIN MD
== END 2016-10-04 12:51 | disposition home or self-care (01) ==
LOC: JER 08:04
DX: I49.1 Atrial premature depolarization (principal); I31.9 Disease of pericardium, unspecified
CPT/HCPCS: 36415; 80053; 82553; 83735; 84484; 84703; 85025; 93005; 93010; 99285-25

== ENCOUNTER 2016-12-04 20:16 | Emergency (ER) | payer OTHER ==
[2016-12-04 20:38] VITALS: BP 113/59; PULSE 69; TEMP 98.8; BMI 35.2
--- NOTE | 2016-12-04 21:07 | PDOC ---
History of Present Illness - General Chief Complaint: Pain Stated Complaint: PAIN Time Seen by Provider: 12/04/16 20:53 Past History - Past Medical History Allergies/Adverse Reactions: Allergies Allergy/AdvReac Type Severity Reaction Status Date / Time No Known Allergies Allergy Verified 12/04/16 20:35 Home Medications: Ambulatory Orders Naproxen [Naprosyn -] 500 mg PO PRN PRN 02/12/16 Amitriptyline HCl [Elavil -] 100 mg PO HS 08/19/16 Colchicine 0.6 mg PO BID 08/19/16 Topiramate [Topamax] 100 mg PO BID 08/19/16 Sumatriptan Succinate [Imitrex] 50 mg PO BID #30 tablet 09/22/16 Diazepam [Valium] 5 mg PO HS PRN #5 tablet MDD 1 09/23/16 Naproxen [Naprosyn -] 500 mg PO BID #14 tablet 09/23/16 Cardiac Disorders: Yes (pericarditis) GI Disorders: Yes - Immunization History Immunization Up to Date: Yes - Suicide/Smoking/Psychosocial Hx Smoking Status: No Smoking History: Never smoked Have you smoked in the past 12 months: No Number of Cigarettes Smoked Daily: 0 If you are a former smoker, when did you quit?: 13 Information on smoking cessation initiated: No Hx Alcohol Use: No Drug/Substance Use Hx: No Substance Use Type: None *Physical Exam - Vital Signs Last Vital Signs Temp Pulse Resp BP Pulse Ox 98.8 F 69 20 113/59 99 12/04/16 20:35 12/04/16 20:35 12/04/16 20:35 12/04/16 20:35 12/04/16 20:35
--- NOTE | 2016-12-04 21:15 | PDOC ---
History of Present Illness - General History Source: Patient Exam Limitations: No Limitations - History of Present Illness Initial Comments: 12/04/16 21:43 The patient is a 46-year-old female with a significant past medical history of varicose veins, and presents to the emergency department with worsening bilateral lower leg pain and swelling for a five days. 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 She is also concerned about two knots at the dorsum of her feet, but denies any pain at the knots. She states she has been seeing her PCP and a vascular surgeon at [place]. She has been taking her prescribed water pills for 3 days with intermittent relief of swelling. She is also concerned about a pain at the center of her back, and has been taking heartburn medications. The patient denies chest pain, shortness of breath, headache and dizziness. The patient denies fever, chills, nausea, vomit, diarrhea and constipation. The patient denies dysuria, frequency, urgency and hematuria. Allergies: NKDA Past Surgical History: None reported Social History: No toxic habits reported <Sirisha Krishnamurthy - Last Filed: 12/04/16 21:43> <Ольга Palafox - Last Filed: 12/05/16 00:49> - General Chief Complaint: Pain Stated Complaint: PAIN Time Seen by Provider: 12/04/16 20:53 Past History <Sirisha Krishnamurthy - Last Filed: 12/04/16 21:43> - Past Medical History Cardiac Disorders: Yes (pericarditis) GI Disorders: Yes - Immunization History Immunization Up to Date: Yes - Suicide/Smoking/Psychosocial Hx Smoking Status: No Smoking History: Never smoked Have you smoked in the past 12 months: No Number of Cigarettes Smoked Daily: 0 If you are a former smoker, when did you quit?: 13 Information on smoking cessation initiated: No Hx Alcohol Use: No Drug/Substance Use Hx: No Substance Use Type: None <Ольга Palafox - Last Filed: 12/05/16 00:49> - Past Medical History Allergies/Adverse Reactions: Allergies Allergy/AdvReac Type Severity Reaction Status Date / Time No Known Allergies Allergy Verified 12/04/16 20:35 Home Medications: Ambulatory Orders Naproxen [Naprosyn -] 500 mg PO PRN PRN 02/12/16 Amitriptyline HCl [Elavil -] 100 mg PO HS 08/19/16 Colchicine 0.6 mg PO BID 08/19/16 Topiramate [Topamax] 100 mg PO BID 08/19/16 Sumatriptan Succinate [Imitrex] 50 mg PO BID #30 tablet 09/22/16 Diazepam [Valium] 5 mg PO HS PRN #5 tablet MDD 1 09/23/16 Naproxen [Naprosyn -] 500 mg PO BID #14 tablet 09/23/16 Review of Systems - Review of Systems Able to Perform ROS?: Yes Comments:: 12/04/16 21:43 GENERAL/CONSTITUTIONAL: No fever or chills. No weakness. HEAD, EYES, EARS, NOSE AND THROAT: No change in vision. No ear pain or discharge. No sore throat. CARDIOVASCULAR: No chest pain or shortness of breath. RESPIRATORY: No cough, wheezing, or hemoptysis. GASTROINTESTINAL: No nausea, vomiting, diarrhea or constipation. GENITOURINARY: No dysuria, frequency, or change in urination. MUSCULOSKELETAL: (+) Back pain. No joint swelling or pain. No neck pain. EXTREMITIES: (+) Bilateral lower leg pain and swelling. SKIN: No rash NEUROLOGIC: No headache, vertigo, loss of consciousness, or change in strength/ sensation. HEMATOLOGIC/LYMPHATIC: No anemia, easy bleeding, or history of blood clots. ALLERGIC/IMMUNOLOGIC: No hives or skin allergy. <Sirisha Krishnamurthy - Last Filed: 12/04/16 21:43> *Physical Exam - Vital Signs Last Vital Signs Temp Pulse Resp BP Pulse Ox 98.8 F 69 20 113/59 99 12/04/16 20:35 12/04/16 20:35 12/04/16 20:35 12/04/16 20:35 12/04/16 20:35 - Physical Exam Comments: 12/04/16 21:43 GENERAL: Awake, alert, and fully oriented, in no acute distress HEAD: No signs of trauma EYES: PERRLA, EOMI, sclera anicteric, conjunctiva clear ENT: Auricles normal inspection, hearing grossly normal, nares patent, oropharynx clear without exudates. Moist mucosa NECK: Normal ROM, supple, no lymphadenopathy, JVD, or masses LUNGS: Breath sounds equal, clear to auscultation bilaterally. No wheezes, and no crackles HEART: Regular rate and rhythm, normal S1 and S2, no murmurs, rubs or gallops ABDOMEN: Soft, nontender, normoactive bowel sounds. No guarding, no rebound. No masses EXTREMITIES: Normal range of motion. (+) Equal swelling of the bilateral lower legs with minimal pitting edema at the feet and ankles. No clubbing or cyanosis. No cords, erythema, or tenderness NEUROLOGICAL: Cranial nerves II through XII grossly intact. Normal speech, normal gait SKIN: Warm, Dry, normal turgor, no rashes or lesions noted. <Sirisha Krishnamurthy - Last Filed: 12/04/16 21:43> - Vital Signs Last Vital Signs Temp Pulse Resp BP Pulse Ox 98.8 F 69 20 113/59 99 12/04/16 20:35 12/04/16 20:35 12/04/16 20:35 12/04/16 20:35 12/04/16 20:35 <Ольга Palafox - Last Filed: 12/05/16 00:49> Medical Decision Making - Medical Decision Making 12/05/16 00:47 Pt is anxious and worried about the swelling in her legs. She has been following with vasc surg for this and she uses compression stockings and takes lasix for this. Pt is wondering if she has a blood clot in her legs. She has no calf tenderness; pt was reassured and referred to [facility] Vasc surgeons who do sclerotherapy and laser outpatient procedures for varicose veins. Pt will follow with PMD. <Ольга Palafox - Last Filed: 12/05/16 00:49> *DC/Admit/Observation/Transfer - Attestations Scribe Attestion: 12/04/16 21:44 Documentation prepared by Sirisha Krishnamurthy, acting as medical claims analyst for Ольга Palafox MD. <Sirisha Krishnamurthy - Last Filed: 12/04/16 21:43> - Discharge Dispostion Admit: No <Ольга Palafox - Last Filed: 12/05/16 00:49> Diagnosis at time of Disposition: Varicosities of leg, Varicose vein of leg, Leg swelling - Discharge Dispostion Disposition: HOME Condition at time of disposition: Stable - Referrals Referrals: Chantel Soto MD [Primary Care Provider] - - Patient Instructions Printed Discharge Instructions: Superficial Thrombophlebitis, Treatment of Varicose Veins of the Leg - Post Discharge Activity Forms/Work/School Notes: Back to Work
== END 2016-12-04 21:34 | disposition home or self-care (01) ==
LOC: JER 20:16
DX: I83.893 Varicose veins of bilateral lower extremities with other complications (principal)
CPT/HCPCS: 99281-25

== ENCOUNTER 2016-12-28 09:03 | Emergency (ER) | payer OTHER ==
[2016-12-28 09:16] VITALS: BP 121/72; PULSE 65; TEMP 98.2; BMI 35.0
--- NOTE | 2016-12-28 10:30 | PDOC ---
History of Present Illness - General Chief Complaint: Pain Stated Complaint: LT FOOT PAIN Time Seen by Provider: 12/28/16 09:31 History Source: Patient Exam Limitations: No Limitations - History of Present Illness Initial Comments: 12/28/16 10:29 46 yr female with foot pain for one week getting worse. Pt denies injury noted pain with walking then noticed swelling and warmth to the bottom of the foot. Lower Ext. Injury Location - Specific Injury Location Foot: left foot no evidence of injury, left foot normal range of motion, left foot pain, left foot swelling Past History - Past Medical History Allergies/Adverse Reactions: Allergies Allergy/AdvReac Type Severity Reaction Status Date / Time No Known Allergies Allergy Verified 12/28/16 09:16 Home Medications: Ambulatory Orders Pantoprazole Sodium 40 mg PO DAILY 12/28/16 Simvastatin 20 mg PO HS 12/28/16 Cardiac Disorders: Yes (pericarditis) COPD: No GI Disorders: Yes Other medical history: MIGRAINES - Immunization History Immunization Up to Date: Yes - Suicide/Smoking/Psychosocial Hx Smoking Status: No Smoking History: Never smoked Have you smoked in the past 12 months: No Number of Cigarettes Smoked Daily: 0 If you are a former smoker, when did you quit?: 13 Hx Alcohol Use: No Drug/Substance Use Hx: No Substance Use Type: None *Physical Exam - Vital Signs Last Vital Signs Temp Pulse Resp BP Pulse Ox 98.2 F 65 20 121/72 100 12/28/16 09:14 12/28/16 09:14 12/28/16 09:14 12/28/16 09:14 12/28/16 09:14 - Physical Exam General Appearance: Yes: Nourished, Appropriately Dressed HEENT: positive: EOMI, JOSE JUAN Neck: positive: Supple. negative: Tender Respiratory/Chest: positive: Lungs Clear, Normal Breath Sounds Cardiovascular: positive: Regular Rhythm, Regular Rate Gastrointestinal/Abdominal: positive: Normal Bowel Sounds, Soft Extremity: positive: Normal Capillary Refill, Normal Range of Motion, Tender ( top of the foot , swelling noted , no redness , nv intact) Integumentary: positive: Normal Color, Dry, Warm Neurologic: positive: Fully Oriented, Alert, Normal Mood/Affect, Normal Response , Motor Strength 5/5 ED Treatment Course - LABORATORY CBC & Chemistry Diagram: 12/28/16 10:37 - ADDITIONAL ORDERS Additional order review: Laboratory Results 12/28/16 09:33 Urine HCG, Qual Negative - RADIOLOGY Radiology Studies Ordered: Category Date Time Status FOOT-LEFT [RAD] Stat Radiology 12/28/16 09:53 Completed Medical Decision Making - Medical Decision Making 12/28/16 11:10 cc: left foot pain and swelling for one week no fever no chills denies trauma skin is intact will check labs r/o gout r/o fracture with xray pt has gastric ulcer unable to tolerate NSAIDS is taking tylenol with no relief 12/28/16 11:19 12/28/16 11:24 labs are WNL xray is negative will have pt follow up with local area network systems adminstrator and PMD 12/28/16 11:41 12/28/16 11:49 *DC/Admit/Observation/Transfer Diagnosis at time of Disposition: Foot pain, left - Discharge Dispostion Disposition: HOME Condition at time of disposition: Good - Referrals Referrals: Chantel Soto MD [Primary Care Provider] - Kirk Siu MD [Staff Physician] - - Patient Instructions Additional Instructions: follow with the local area network systems adminstrator elevate and apply warm compresses, you can also soak foot in warm epsom salt 3- 4 times a day take extra strength tylenol as directed for pain
[2016-12-28 10:51] LABS: BASOPHIL 1.1 % (0-2.0); EOSINOPHIL 1.2 % (0-4.5); MCHC 32.4 g/dl (32.0-36.0); MEAN CELL VOLUME 80.4 fl (80-96); MEAN PLT VOLUME 8.3 fl (7.5-11.1); NEUTROPHILS 56.9 % (42.8-82.8); PLATELET COUNT 379 K/MM3 (134-434); RDW 16.1 % (11.6-15.6); WHITE BLOOD COUNT 7.3 K/mm3 (4.0-10.0)
[2016-12-28 14:01] LABS: ERYTHROCYTE SEDIMENTATION RATE 27 mm/hr (0-20)
== END 2016-12-28 11:55 | disposition home or self-care (01) ==
LOC: JERFT 09:03
DX: M79.672 Pain in left foot (principal); Z87.891 Personal history of nicotine dependence; I31.9 Disease of pericardium, unspecified
CPT/HCPCS: 36415; 73630-TC-LT; 84550; 84703; 85025; 85651; 99282-25

== ENCOUNTER 2017-02-07 09:41 | Emergency (ER) | payer OTHER ==
[2017-02-07 09:45] VITALS: BP 132/67; PULSE 83; TEMP 98; BMI 34.1
[2017-02-07] MEDS ORDERED: KETOROLAC TROMETHAMINE 60 MG/2 ML VIAL IM ONE (10:24)
--- NOTE | 2017-02-07 10:33 | PDOC ---
History of Present Illness - General Chief Complaint: Migraine Headache Stated Complaint: MIGRAINE Time Seen by Provider: 02/07/17 10:10 History Source: Patient Exam Limitations: No Limitations - History of Present Illness Initial Comments: 02/07/17 10:25 Patient is here states has multiple ER visits for chronic migraine headache pain. States is classic symptoms, frontal primarily right side with some mild photophobia. Patient is currently receiving Botox treatment with good success and her headache clinic is at [facility] and has appointment this week for re-eval and treatment. States with break through headaches receive significant help with IM Benadryl and IM Toradol. Denies fevers, ear or throat pain, no other neurologic symptoms. Severity: Yes: mild, moderate Associated Symptoms: denies: fatigue, fever/chills, loss of consciousness, numbness in legs/feet, paresthesia, ringing in ears Past History - Travel Traveled outside of the country in the last 30 days: No Close contact w/someone who was outside of country & ill: No - Past Medical History Allergies/Adverse Reactions: Allergies Allergy/AdvReac Type Severity Reaction Status Date / Time No Known Allergies Allergy Verified 02/07/17 09:42 Home Medications: Ambulatory Orders Pantoprazole Sodium 40 mg PO DAILY 12/28/16 Simvastatin 20 mg PO HS 12/28/16 Cardiac Disorders: Yes (pericarditis) COPD: No GI Disorders: Yes Other medical history: MIGRANES - Immunization History Immunization Up to Date: Yes - Suicide/Smoking/Psychosocial Hx Smoking Status: No Smoking History: Never smoked Have you smoked in the past 12 months: No Number of Cigarettes Smoked Daily: 0 If you are a former smoker, when did you quit?: 13 Hx Alcohol Use: No Drug/Substance Use Hx: No Substance Use Type: None Neuro Specific PMHX - Complaint Specific PMHX Glaucoma: No Herniated Disk: No Laminectomy: No Migraine: Yes Review of Systems - Review of Systems Able to Perform ROS?: Yes Is the patient limited Niuean proficient: Yes Constitutional: Yes: Symptoms Reported, See HPI, Malaise. No: Fever, Loss of Appetite HEENTM: Yes: Symptoms Reported, See HPI. No: Blurred Vision (some photophobia) Respiratory: Yes: See HPI. No: Symptoms reported Musculoskeletal: No: Symptoms Reported Integumentary: No: Symptoms Reported Neurological: Yes: Symptoms reported, See HPI, Headache. No: Numbness, Paresthesia, Seizure, Unsteady Gait All Other Systems: Reviewed and Negative *Physical Exam - Vital Signs Last Vital Signs Temp Pulse Resp BP Pulse Ox 98 F 83 19 132/67 100 02/07/17 09:43 02/07/17 09:43 02/07/17 09:43 02/07/17 09:43 02/07/17 09:43 - Physical Exam General Appearance: Yes: Nourished, Appropriately Dressed, Apparent Distress, Mild Distress HEENT: positive: JOSE JUAN, Normal ENT Inspection, Normal Voice, TMs Normal, Pharynx Normal Neck: positive: Supple. negative: Tender, Carotid bruit, Lymphadenopathy (R) Respiratory/Chest: positive: Lungs Clear, Normal Breath Sounds Musculoskeletal: positive: Normal Inspection. negative: CVA Tenderness Integumentary: positive: Normal Color, Dry, Warm Neurologic: positive: evp strategy II-XII NML intact, Fully Oriented, Alert, Normal Mood/ Affect, Normal Response, Motor Strength 5/5 Progress Note - Progress Note Progress Note: Recurrent migraine, states feels much resolved after Benadryl and Toradol IM. No evidence of extending neurologic changes. We will discharge and have follow- up as scheduled with neurologist *DC/Admit/Observation/Transfer Diagnosis at time of Disposition: Migraine Qualifiers: Migraine type: unspecified Status migrainosus presence: without status migrainosus Intractability: intractable Qualified Code(s): G43.919 - Migraine, unspecified, intractable, without status migrainosus - Discharge Dispostion Disposition: HOME Condition at time of disposition: Stable Admit: No - Referrals Referrals: Chantel Soto MD [Primary Care Provider] - - Patient Instructions Printed Discharge Instructions: DI for Migraine Additional Instructions: Rest, avoid strenuous activity or exercise until symptoms resolve Lots of fluids, keep well hydrated See PMD as scheduled - Post Discharge Activity Forms/Work/School Notes: Back to Work
== END 2017-02-07 10:38 | disposition home or self-care (01) ==
LOC: JERFT 09:41
PROC: 3E033GC Introduction of Other Therapeutic Substance into Peripheral Vein, Percutaneous Approach (ICD-10-PCS; principal; 2017-02-07)
PROC: 3E0333Z Introduction of Anti-inflammatory into Peripheral Vein, Percutaneous Approach (ICD-10-PCS; 2017-02-07)
DX: G43.919 Migraine, unspecified, intractable, without status migrainosus (principal); Z87.891 Personal history of nicotine dependence
CPT/HCPCS: 96372; 99281-25

== ENCOUNTER 2017-02-09 14:18 | Emergency (ER) | payer OTHER ==
[2017-02-09 14:22] VITALS: BP 133/74; PULSE 70; TEMP 97.9; BMI 33.0
--- NOTE | 2017-02-09 15:15 | PDOC ---
History of Present Illness - General Chief Complaint: Headache Stated Complaint: MIGRAINE/HEADACHE Time Seen by Provider: 02/09/17 15:15 - History of Present Illness Initial Comments: 46 year old with history of migraine, HLD,and GERD presenting with throbbing bilateral temporal headache. States that this headache came on suddenly yesterday with light nausea as per her usual migraine presentation. She took her sumatriptain and her daily topamax without relief. The headache worsened on the morning of presentation to the ED. Denies Trauma, vomiting, diarrhea, constipation, loc, focal neuro deficits, or visual chanfe. Her neurologist at [facility] will see her tomorrow for better management but she had no avenue for acute headache relief so she came back to the ED. 02/09/17 15:22 Past History - Past Medical History Allergies/Adverse Reactions: Allergies Allergy/AdvReac Type Severity Reaction Status Date / Time No Known Allergies Allergy Verified 02/09/17 14:19 Home Medications: Ambulatory Orders Pantoprazole Sodium 40 mg PO DAILY 12/28/16 Simvastatin 20 mg PO HS 12/28/16 Cardiac Disorders: Yes (pericarditis) COPD: No DVT: No GI Disorders: Yes Hypercholesterolemia: Yes Other medical history: MIGRAINES - Immunization History Immunization Up to Date: Yes - Suicide/Smoking/Psychosocial Hx Smoking Status: No Smoking History: Never smoked Have you smoked in the past 12 months: No Number of Cigarettes Smoked Daily: 0 If you are a former smoker, when did you quit?: 13 Information on smoking cessation initiated: No Hx Alcohol Use: No Drug/Substance Use Hx: No Substance Use Type: None *Physical Exam - Vital Signs Last Vital Signs Temp Pulse Resp BP Pulse Ox 97.9 F 70 18 133/74 100 02/09/17 14:19 02/09/17 14:19 02/09/17 14:19 02/09/17 14:19 02/09/17 14:19 *DC/Admit/Observation/Transfer Diagnosis at time of Disposition: Migraine Qualifiers: Migraine type: without aura Status migrainosus presence: without status migrainosus Intractability: not intractable Qualified Code(s): G43.009 - Migraine without aura, not intractable, without status migrainosus - Discharge Dispostion Disposition: HOME Condition at time of disposition: Improved Admit: No - Referrals - Patient Instructions Printed Discharge Instructions: DI for Migraine Additional Instructions: We helped your migraine with Toradol and Benadryl. Please follow up with your neurologist. Please return if the symptoms get worse. - Post Discharge Activity
[2017-02-09] MEDS ORDERED: KETOROLAC TROMETHAMINE 30 MG/1 ML VIAL IM ONE (15:26)
[2017-02-09] MEDS ORDERED: KETOROLAC TROMETHAMINE 30 MG/1 ML VIAL ONE ×2 (15:29)
--- NOTE | 2017-02-09 16:16 | PDOC ---
Attending Attestation - Resident Resident Name: Bia Wilson - ED Attending Attestation I have performed the following: I have examined & evaluated the patient, The case was reviewed & discussed with the resident, I agree w/resident's findings & plan, Exceptions are as noted - HPI HPI: 02/09/17 16:11 46-year-old female with a history of migraines here today complaining of a headache started last p.m. states very similar to her prior migraines denies fevers chills no moderating factors has seen a neurologist who is not affiliated here in the past for her headaches - Physicial Exam PE: 02/09/17 16:13 Awake alert no acute distress lungs are clear bilaterally heart is regular without any murmurs rubs or gallops abdomen soft nontender neuro patient is alert and oriented 3 is 5 out of 5 muscle strength bilaterally sensation is intact cranial nerves are intact and speech is normal skin is warm and dry - Medical Decision Making 02/09/17 16:14 46-year-old for migraines plan to treat NSAIDs antiemeticsAnd reassess for improvement neurology outpatient follow-up if improved
== END 2017-02-09 16:24 | disposition home or self-care (01) ==
LOC: JER 14:18
PROC: 3E033GC Introduction of Other Therapeutic Substance into Peripheral Vein, Percutaneous Approach (ICD-10-PCS; principal; 2017-02-09)
PROC: 3E0337Z Introduction of Electrolytic and Water Balance Substance into Peripheral Vein, Percutaneous Approach (ICD-10-PCS; 2017-02-09)
DX: G43.009 Migraine without aura, not intractable, without status migrainosus (principal); I31.9 Disease of pericardium, unspecified; Z87.891 Personal history of nicotine dependence
CPT/HCPCS: 99281-25

== ENCOUNTER 2017-02-23 08:15 | Emergency (ER) | payer OTHER ==
[2017-02-23 08:22] VITALS: BP 136/69; PULSE 63; TEMP 98.8; BMI 33.0
[2017-02-23] MEDS ORDERED: KETOROLAC TROMETHAMINE 60 MG/2 ML VIAL IM ONE (08:44)
--- NOTE | 2017-02-23 09:08 | PDOC ---
History of Present Illness - General Chief Complaint: Migraine Headache Stated Complaint: MIGRAINE HEADACHE Time Seen by Provider: 02/23/17 08:38 History Source: Patient Exam Limitations: No Limitations - History of Present Illness Initial Comments: 02/23/17 08:52 Patient is a [46-year-old female, here requesting Toradol and Benadryl reports having history of migraines on naratriptan. The medication works however, if she does not take medication when symptoms start it does not work as well. She reports not taking the medication until headache was full blown. Denies change in symptoms, no photophobia, no neuro or sensory deficit. ] Past Medical History: [Denies]. Allergies: No known allergies Medications: [simvistatin, pantoprazole] Family History: Non-contributory Social History: Denies smoking, alcohol use, or IVDU Review of Systems GENERAL/CONSTITUTIONAL: [No fever or chills. No weakness. No weight change.] HEAD, EYES, EARS, NOSE AND THROAT: [No change in vision. No ear pain or discharge. No sore throat. ] CARDIOVASCULAR: [No chest pain or shortness of breath.] RESPIRATORY: [No cough, wheezing, or hemoptysis.] GASTROINTESTINAL: [No nausea, vomiting, diarrhea or constipation. No rectal bleeding.] GENITOURINARY: [No dysuria, frequency, or change in urination.] MUSCULOSKELETAL: [No joint or muscle swelling or pain. No neck or back pain.] SKIN AND BREASTS: [No rash or easy bruising.] NEUROLOGIC: [+ headache, no vertigo, loss of consciousness, or loss of sensation.] PSYCHIATRIC: [No depression or anxiety.] ENDOCRINE: [No increased thirst. No abnormal weight change.] HEMATOLOGIC/LYMPHATIC: [No anemia, easy bleeding, or history of blood clots.] ALLERGIC/IMMUNOLOGIC: [No hives or skin allergy. No latex allergy.] Physical Exam: GENERAL: [The patient is awake, alert, and fully oriented, in no acute distress. ] HEAD: [Normal with no signs of trauma.] EYES: [Pupils equal, round and reactive to light, extraocular movements intact, sclera anicteric, conjunctiva clear.] ENT: [Ears normal, nares patent, oropharynx clear without exudates. Moist mucous membranes. No uvula deviation] NECK: [Normal range of motion, supple without lymphadenopathy, JVD, or masses.] LUNGS: [Breath sounds equal, clear to auscultation bilaterally. No wheezes, and no crackles.] HEART: [Regular rate and rhythm, normal S1 and S2 without murmur, rub or gallop. ] ABDOMEN: [Soft, nontender, normoactive bowel sounds. No guarding, no rebound. No masses. No bruising or abrasions] RECTAL : [Guaiac negative, normal rectal tone.] MUSCULOSKELETAL: [Normal range of motion, no edema. No clubbing or cyanosis. No cords, erythema, or tenderness. No CVA Tenderness with fist.] NEUROLOGICAL: [Cranial nerves II through XII grossly intact. Normal speech, normal gait.] PSYCH: [Normal mood, normal affect.] SKIN: [Warm, Dry, normal turgor, no rashes or lesions noted.] Past History - Past Medical History Allergies/Adverse Reactions: Allergies Allergy/AdvReac Type Severity Reaction Status Date / Time No Known Allergies Allergy Verified 02/23/17 08:22 Home Medications: Ambulatory Orders Pantoprazole Sodium 40 mg PO DAILY 12/28/16 Simvastatin 20 mg PO HS 12/28/16 Cardiac Disorders: Yes (pericarditis) COPD: No DVT: No GI Disorders: Yes Hypercholesterolemia: Yes Other medical history: migraines - Immunization History Immunization Up to Date: Yes - Suicide/Smoking/Psychosocial Hx Smoking Status: No Smoking History: Never smoked Have you smoked in the past 12 months: No Number of Cigarettes Smoked Daily: 0 If you are a former smoker, when did you quit?: 13 Hx Alcohol Use: No Drug/Substance Use Hx: No Substance Use Type: None Neuro Specific PMHX - Complaint Specific PMHX Glaucoma: No Herniated Disk: No Laminectomy: No Migraine: Yes *Physical Exam - Vital Signs Last Vital Signs Temp Pulse Resp BP Pulse Ox 98.8 F 63 18 136/69 100 02/23/17 08:19 02/23/17 08:19 02/23/17 08:19 02/23/17 08:19 02/23/17 08:19 Medical Decision Making - Medical Decision Making 02/23/17 09:24 A/P: Patient here for requesting Toradol and Benadryl for chronic migraine. Did not take her medication on time now headache is not responding to her medication that she takes regularly. Toradol and Benadryl given with good result , patient's denies headache now. States total relief. We'll DC patient home to follow up with neurology. Continue current care. *DC/Admit/Observation/Transfer Diagnosis at time of Disposition: Migraine Qualifiers: Migraine type: without aura Status migrainosus presence: without status migrainosus Intractability: not intractable Qualified Code(s): G43.009 - Migraine without aura, not intractable, without status migrainosus - Discharge Dispostion Disposition: HOME Condition at time of disposition: Stable Admit: No - Referrals Referrals: Chantel Soto MD [Primary Care Provider] - - Patient Instructions Additional Instructions: Follow up with neurology - Post Discharge Activity Forms/Work/School Notes: Back to Work
== END 2017-02-23 09:25 | disposition home or self-care (01) ==
LOC: JERFT 08:15
PROC: 3E0233Z Introduction of Anti-inflammatory into Muscle, Percutaneous Approach (ICD-10-PCS; principal; 2017-02-23)
PROC: 3E023GC Introduction of Other Therapeutic Substance into Muscle, Percutaneous Approach (ICD-10-PCS; 2017-02-23)
DX: G43.009 Migraine without aura, not intractable, without status migrainosus (principal); E78.00 Pure hypercholesterolemia, unspecified; I31.9 Disease of pericardium, unspecified
CPT/HCPCS: 99281-25

== ENCOUNTER 2017-03-01 18:11 | Emergency (ER) | payer OTHER ==
--- NOTE | 2017-03-01 18:18 | PDOC ---
Rapid Medical Evaluation Time Seen by Provider: 03/01/17 18:16 Medical Evaluation: Allergies Allergy/AdvReac Type Severity Reaction Status Date / Time No Known Allergies Allergy Verified 02/23/17 08:22 I have performed a brief in-person evaluation of this patient. The patient presents with a chief complaint of: history of migraines; headache since this morning - migraine medication not working. Pertinent physical exam findings: none. No photophobia. No phonophobia. I have ordered the following: hcg The patient will proceed to the ED for further evaluation.
[2017-03-01 18:19] VITALS: BP 137/79; PULSE 81; TEMP 98.9; BMI 33.0
--- NOTE | 2017-03-01 19:35 | PDOC ---
History of Present Illness - General Chief Complaint: Migraine Headache Stated Complaint: HEADACHE Time Seen by Provider: 03/01/17 18:16 History Source: Patient Exam Limitations: No Limitations - History of Present Illness Initial Comments: 03/01/17 19:31 This is a 46-year-old woman with past medical history of migraines who presents to emergency department with frontal headache radiating to bitemporal regions. Patient states this is her usual migraine pain. Patient states pain started at approximately 6:30 this morning when she woke up for which she did not take her triptan medication. She reports photophobia but denies photophobia. Patient denies any nausea or vomiting or blurry vision. Neurologist: Christopher Lyons Past History - Past Medical History Allergies/Adverse Reactions: Allergies Allergy/AdvReac Type Severity Reaction Status Date / Time No Known Allergies Allergy Verified 03/01/17 18:18 Home Medications: Ambulatory Orders Pantoprazole Sodium 40 mg PO DAILY 12/28/16 Simvastatin 20 mg PO HS 12/28/16 Cardiac Disorders: Yes (pericarditis) COPD: No DVT: No GI Disorders: Yes (GERD) Hypercholesterolemia: Yes Other medical history: MIGRAINES - Immunization History Immunization Up to Date: Yes - Suicide/Smoking/Psychosocial Hx Smoking Status: No Smoking History: Never smoked Have you smoked in the past 12 months: No Number of Cigarettes Smoked Daily: 0 If you are a former smoker, when did you quit?: 13 Hx Alcohol Use: No Drug/Substance Use Hx: No Substance Use Type: None Neuro Specific PMHX - Complaint Specific PMHX Glaucoma: No Herniated Disk: No Laminectomy: No Migraine: Yes Review of Systems - Review of Systems Able to Perform ROS?: Yes Is the patient limited Japanese proficient: No Constitutional: No: Symptoms Reported HEENTM: No: Symptoms Reported Respiratory: No: Symptoms reported Cardiac (ROS): No: Symptoms Reported ABD/GI: No: Symptoms Reported : No: Symptoms Reported Musculoskeletal: No: Symptoms Reported Integumentary: No: Symptoms Reported Neurological: Yes: See HPI Endocrine: No: Symptoms Reported Hematologic/Lymphatic: No: Symptoms Reported *Physical Exam - Vital Signs Last Vital Signs Temp Pulse Resp BP Pulse Ox 98.9 F 81 20 137/79 100 03/01/17 18:16 03/01/17 18:16 03/01/17 18:16 03/01/17 18:16 03/01/17 18:16 - Physical Exam General Appearance: Yes: Appropriately Dressed. No: Apparent Distress HEENT: positive: Normal ENT Inspection Neck: positive: Trachea midline, Supple Respiratory/Chest: positive: Lungs Clear, Normal Breath Sounds. negative: Respiratory Distress, Accessory Muscle Use Cardiovascular: positive: Regular Rhythm, Regular Rate. negative: Murmur Gastrointestinal/Abdominal: positive: Normal Bowel Sounds, Soft. negative: Tender Musculoskeletal: positive: Normal Inspection. negative: CVA Tenderness Extremity: positive: Normal Capillary Refill, Normal Inspection Integumentary: positive: Normal Color, Dry, Warm Neurologic: positive: manager export II-XII NML intact, Fully Oriented, Alert, Normal Mood/ Affect, Normal Response, Motor Strength 5/5 Medical Decision Making - Medical Decision Making 03/01/17 19:33 A/P: This is a 46-year-old woman with past medical history of migraines who presents to emergency department with frontal headache radiating to bitemporal regions. Patient states this is her usual migraine pain. Patient states pain started at approximately 6:30 this morning when she woke up for which she did not take her triptan medication. She reports photophobia but denies photophobia. Patient denies any nausea or vomiting or blurry vision. Cranial nerves II through XII intact. Pupils equally round reactive light accommodation. Extraocular movements intact. Strength 5 out of 5 in all extremities. Diagnosis migraine I'll perform a urine test and if negative I will give the patient's 50 mg of IM Benadryl and 60 mg of IM Toradol. 03/01/17 20:36 Patient states symptoms are improved after receiving medication. Patient would like to be discharged. I will discharge the patient with strict return precautions and follow-up with her neurologist. *DC/Admit/Observation/Transfer Diagnosis at time of Disposition: Migraine Qualifiers: Migraine type: without aura Status migrainosus presence: without status migrainosus Intractability: not intractable Qualified Code(s): G43.009 - Migraine without aura, not intractable, without status migrainosus - Discharge Dispostion Disposition: HOME Condition at time of disposition: Stable Admit: No - Referrals Referrals: Chantel Soto MD [Primary Care Provider] - - Patient Instructions Additional Instructions: Take your migraine medication at the first sign of a migraine. The longer you wait, the less likely it is to work. Keep well-hydrated Make an appointment with your neurologist for follow-up. Return to emergency department for worsening headache, nausea, vomiting, dizziness or any other concerns. Thank you very much for choosing us to provide your emergent healthcare needs. - Post Discharge Activity
[2017-03-01] MEDS ORDERED: KETOROLAC TROMETHAMINE 60 MG/2 ML VIAL IM ONE (19:40)
[2017-03-01] MEDS ORDERED: diphenhydrAMINE HCL 25 MG CAPSULE (FP) PO ONE (20:23)
[2017-03-01] MEDS ORDERED: KETOROLAC TROMETHAMINE 60 MG/2 ML VIAL ONE (20:23)
== END 2017-03-01 20:39 | disposition home or self-care (01) ==
LOC: JERFT 18:11
PROC: 3E0233Z Introduction of Anti-inflammatory into Muscle, Percutaneous Approach (ICD-10-PCS; principal; 2017-03-01)
PROC: 3E023GC Introduction of Other Therapeutic Substance into Muscle, Percutaneous Approach (ICD-10-PCS; 2017-03-01)
DX: G43.009 Migraine without aura, not intractable, without status migrainosus (principal); K21.9 Gastro-esophageal reflux disease without esophagitis; E78.00 Pure hypercholesterolemia, unspecified; Z86.79 Personal history of other diseases of the circulatory system
CPT/HCPCS: 84703; 99281-25

== ENCOUNTER 2017-03-07 08:43 | Emergency (ER) | payer OTHER ==
[2017-03-07 08:51] VITALS: BP 118/69; PULSE 71; TEMP 98.8; BMI 33.0
[2017-03-07] MEDS ORDERED: KETOROLAC TROMETHAMINE 60 MG/2 ML VIAL IM ONE (09:07)
--- NOTE | 2017-03-07 09:11 | PDOC ---
History of Present Illness - General Chief Complaint: Headache Stated Complaint: MIGRAINE, PT REQUESTING FASTRACK Time Seen by Provider: 03/07/17 09:04 History Source: Patient Exam Limitations: No Limitations - History of Present Illness Initial Comments: 03/07/17 09:11 46 yr female historyof migraines seen in ER frequently for same requesting toradol and bebadryl. Pt states this is typical migraine sits in the forehead region has had for 2 days not relieved with triptan and excedrin at home. neg nv. neg head trauma. Pt has no other medical history. Severity: Yes: mild Episode Description: 2 days frontal headache , pressure Associated Symptoms: reports: denies symptoms Past History - Past Medical History Allergies/Adverse Reactions: Allergies Allergy/AdvReac Type Severity Reaction Status Date / Time No Known Allergies Allergy Verified 03/07/17 08:51 Home Medications: Ambulatory Orders Pantoprazole Sodium 40 mg PO DAILY 12/28/16 Simvastatin 20 mg PO HS 12/28/16 Cardiac Disorders: Yes (pericarditis) COPD: No DVT: No GI Disorders: Yes (GERD) Hypercholesterolemia: Yes - Immunization History Immunization Up to Date: Yes - Suicide/Smoking/Psychosocial Hx Smoking Status: No Smoking History: Never smoked Have you smoked in the past 12 months: No Number of Cigarettes Smoked Daily: 0 If you are a former smoker, when did you quit?: 13 Information on smoking cessation initiated: No Hx Alcohol Use: No Drug/Substance Use Hx: No Substance Use Type: None Neuro Specific PMHX - Complaint Specific PMHX Glaucoma: No Herniated Disk: No Laminectomy: No Migraine: Yes Review of Systems - Review of Systems Able to Perform ROS?: Yes Is the patient limited Syriac proficient: No Constitutional: No: Symptoms Reported HEENTM: No: Symptoms Reported Respiratory: No: Symptoms reported Cardiac (ROS): No: Symptoms Reported ABD/GI: No: Symptoms Reported : No: Symptoms Reported Musculoskeletal: No: Symptoms Reported Integumentary: No: Symptoms Reported Neurological: Yes: Headache *Physical Exam - Vital Signs Last Vital Signs Temp Pulse Resp BP Pulse Ox 98.8 F 71 17 118/69 99 03/07/17 08:49 03/07/17 08:49 03/07/17 08:49 03/07/17 08:49 03/07/17 08:49 - Physical Exam General Appearance: Yes: Nourished, Appropriately Dressed HEENT: positive: EOMI, JOSE JUAN, Normal ENT Inspection, TMs Normal, Pharynx Normal Neck: positive: Supple Respiratory/Chest: positive: Lungs Clear, Normal Breath Sounds Cardiovascular: positive: Regular Rhythm, Regular Rate Musculoskeletal: positive: Normal Inspection Extremity: positive: Normal Capillary Refill, Normal Inspection, Normal Range of Motion Integumentary: positive: Normal Color, Dry, Warm Neurologic: positive: roguer II-XII NML intact, Fully Oriented, Alert, Normal Mood/ Affect, Normal Response, Motor Strength 5/5, Finger to Nose (intact neuro ontact ). negative: Numbness, Sensory Deficit Medical Decision Making - Medical Decision Making 03/07/17 09:15 cc: migraine headache for 2 days not relieved with meds at home pt requesting toradol and benadryl IM injections pt states that will cure her headache pt denies any head trauma no nausea or vomiting *DC/Admit/Observation/Transfer Diagnosis at time of Disposition: Migraine Qualifiers: Migraine type: without aura Status migrainosus presence: without status migrainosus Intractability: intractable Qualified Code(s): G43.019 - Migraine without aura, intractable, without status migrainosus - Discharge Dispostion Disposition: HOME Condition at time of disposition: Good - Referrals Referrals: Chantel Soto MD [Primary Care Provider] - - Patient Instructions Additional Instructions: please follow with your neurologist as scheduled on March 09 drink at least 2 liters of water a day avoid texting, reading watching tv as this can make headaches worse RETURN to ER for any worsening symptoms or other concerns - Post Discharge Activity
== END 2017-03-07 09:36 | disposition home or self-care (01) ==
LOC: JERFT 08:43 → JER 08:43 → JERFT 09:36
PROC: 3E0233Z Introduction of Anti-inflammatory into Muscle, Percutaneous Approach (ICD-10-PCS; principal; 2017-03-07)
PROC: 3E023GC Introduction of Other Therapeutic Substance into Muscle, Percutaneous Approach (ICD-10-PCS; 2017-03-07)
DX: G43.019 Migraine without aura, intractable, without status migrainosus (principal)
CPT/HCPCS: 96372; 99281-25

== ENCOUNTER 2017-03-13 07:29 | Emergency (ER) | payer OTHER ==
[2017-03-13 07:56] VITALS: BP 110/69; PULSE 66; TEMP 98.9; BMI 34.0
[2017-03-13] MEDS ORDERED: KETOROLAC TROMETHAMINE 60 MG/2 ML VIAL IM ONE (08:17)
--- NOTE | 2017-03-13 08:19 | PDOC ---
History of Present Illness - General Chief Complaint: Migraine Headache Stated Complaint: HEADACHE Time Seen by Provider: 03/13/17 08:15 History Source: Patient Exam Limitations: No Limitations - History of Present Illness Initial Comments: 03/13/17 08:16 Patient is a [46-year-old female, here requesting Toradol and Benadryl reports having history of migraines on naratriptan. The medication works however, if she does not take medication when symptoms start it does not work as well. Has been having headaches more often. Has made an appointment for a headache specialist but not able to get appointment until the end of the month. Denies change in symptoms, no photophobia, no neuro or sensory deficit. ] Past Medical History: [Denies]. Allergies: No known allergies Medications: [simvistatin, pantoprazole] Family History: Non-contributory Social History: Denies smoking, alcohol use, or IVDU Review of Systems GENERAL/CONSTITUTIONAL: [No fever or chills. No weakness. No weight change.] HEAD, EYES, EARS, NOSE AND THROAT: [No change in vision. No ear pain or discharge. No sore throat. ] CARDIOVASCULAR: [No chest pain or shortness of breath.] RESPIRATORY: [No cough, wheezing, or hemoptysis.] GASTROINTESTINAL: [No nausea, vomiting, diarrhea or constipation. No rectal bleeding.] GENITOURINARY: [No dysuria, frequency, or change in urination.] MUSCULOSKELETAL: [No joint or muscle swelling or pain. No neck or back pain.] SKIN AND BREASTS: [No rash or easy bruising.] NEUROLOGIC: [+ headache, no vertigo, loss of consciousness, or loss of sensation.] PSYCHIATRIC: [No depression or anxiety.] ENDOCRINE: [No increased thirst. No abnormal weight change.] HEMATOLOGIC/LYMPHATIC: [No anemia, easy bleeding, or history of blood clots.] ALLERGIC/IMMUNOLOGIC: [No hives or skin allergy. No latex allergy.] Physical Exam: GENERAL: [The patient is awake, alert, and fully oriented, in no acute distress. ] HEAD: [Normal with no signs of trauma.] EYES: [Pupils equal, round and reactive to light, extraocular movements intact, sclera anicteric, conjunctiva clear.] ENT: [Ears normal, nares patent, oropharynx clear without exudates. Moist mucous membranes. No uvula deviation] NECK: [Normal range of motion, supple without lymphadenopathy, JVD, or masses.] LUNGS: [Breath sounds equal, clear to auscultation bilaterally. No wheezes, and no crackles.] HEART: [Regular rate and rhythm, normal S1 and S2 without murmur, rub or gallop. ] ABDOMEN: [Soft, nontender, normoactive bowel sounds. No guarding, no rebound. No masses. No bruising or abrasions] RECTAL : [Guaiac negative, normal rectal tone.] MUSCULOSKELETAL: [Normal range of motion, no edema. No clubbing or cyanosis. No cords, erythema, or tenderness. No CVA Tenderness with fist.] NEUROLOGICAL: [Cranial nerves II through XII grossly intact. Normal speech, normal gait.] PSYCH: [Normal mood, normal affect.] SKIN: [Warm, Dry, normal turgor, no rashes or lesions noted.] 03/13/17 08:18 Past History - Past Medical History Allergies/Adverse Reactions: Allergies Allergy/AdvReac Type Severity Reaction Status Date / Time No Known Allergies Allergy Verified 03/13/17 07:52 Home Medications: Ambulatory Orders Pantoprazole Sodium 40 mg PO DAILY 12/28/16 Simvastatin 20 mg PO HS 12/28/16 Cardiac Disorders: Yes (pericarditis) COPD: No DVT: No GI Disorders: Yes (GERD) Hypercholesterolemia: Yes - Immunization History Immunization Up to Date: Yes - Suicide/Smoking/Psychosocial Hx Smoking Status: No Smoking History: Never smoked Have you smoked in the past 12 months: No Number of Cigarettes Smoked Daily: 0 If you are a former smoker, when did you quit?: 13 Information on smoking cessation initiated: No Hx Alcohol Use: No Drug/Substance Use Hx: No Substance Use Type: None Neuro Specific PMHX - Complaint Specific PMHX Glaucoma: No Herniated Disk: No Laminectomy: No Migraine: Yes *Physical Exam - Vital Signs Last Vital Signs Temp Pulse Resp BP Pulse Ox 98.9 F 66 16 110/69 99 03/13/17 07:53 03/13/17 07:53 03/13/17 07:53 03/13/17 07:53 03/13/17 07:53 Medical Decision Making - Medical Decision Making 03/13/17 08:19 A/P: Patient with chronic headache, current medications are not working. I have ordered the toradol and the benadryl. 03/13/17 08:55 Patient is requesting to leave. States that she feels better even though it was a short time since the administration of medication. I will DC patient home to follow up with the neurologist. *DC/Admit/Observation/Transfer Diagnosis at time of Disposition: Migraine - Discharge Dispostion Disposition: HOME Condition at time of disposition: Stable Admit: No - Referrals Referrals: Chantel Soto MD [Primary Care Provider] - - Patient Instructions Additional Instructions: Follow up with neurologist. - Post Discharge Activity
[2017-03-13] MEDS ORDERED: KETOROLAC TROMETHAMINE 60 MG/2 ML VIAL ONE (08:21)
== END 2017-03-13 09:22 | disposition home or self-care (01) ==
LOC: JERFT 07:29
PROC: 3E0233Z Introduction of Anti-inflammatory into Muscle, Percutaneous Approach (ICD-10-PCS; principal; 2017-03-13)
PROC: 3E023GC Introduction of Other Therapeutic Substance into Muscle, Percutaneous Approach (ICD-10-PCS; 2017-03-13)
DX: G43.909 Migraine, unspecified, not intractable, without status migrainosus (principal); E78.00 Pure hypercholesterolemia, unspecified; K21.9 Gastro-esophageal reflux disease without esophagitis
CPT/HCPCS: 96372; 99281-25

== ENCOUNTER 2017-03-16 16:14 | Emergency (ER) | payer OTHER ==
[2017-03-16 16:43] VITALS: BP 128/56; PULSE 78; TEMP 98.8; BMI 34.0
--- NOTE | 2017-03-16 16:43 | PDOC ---
Rapid Medical Evaluation Time Seen by Provider: 03/16/17 16:40 Medical Evaluation: Allergies Allergy/AdvReac Type Severity Reaction Status Date / Time No Known Allergies Allergy Verified 03/16/17 16:39 03/16/17 16:42 pt c/o migraine headache for one day started this AM. pt has history of headaches , migraines that is relieved with toradol and benadryl injections. Pt followed by a neurologist. Pt states headache is her typical migraine neg nv.
[2017-03-16] MEDS ORDERED: KETOROLAC TROMETHAMINE 60 MG/2 ML VIAL IM ONE (18:03)
--- NOTE | 2017-03-16 18:16 | PDOC ---
History of Present Illness - General Chief Complaint: Migraine Headache Stated Complaint: MIGRANE Time Seen by Provider: 03/16/17 16:40 History Source: Patient Exam Limitations: No Limitations - History of Present Illness Initial Comments: 03/16/17 18:11 46-year-old female presents to the emergency with complaints of frontal to temporal throbbing pressure with mild photophobia without phonophobia which she states has been intermittent since December. Patient states has history of migraines and receives Botox every 3 months which she is due for on the this by her neurologist at [facility]. 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 Patient denies worsening or atypical symptoms and her previous over the past 4 years. Timing/Duration: reports: waxing and waning Severity: Yes: moderate Associated Symptoms: reports: denies symptoms Past History - Past Medical History Allergies/Adverse Reactions: Allergies Allergy/AdvReac Type Severity Reaction Status Date / Time No Known Allergies Allergy Verified 03/16/17 16:39 Home Medications: Ambulatory Orders Pantoprazole Sodium 40 mg PO DAILY 12/28/16 Simvastatin 20 mg PO HS 12/28/16 Cardiac Disorders: Yes (pericarditis) COPD: No DVT: No GI Disorders: Yes (GERD) Hypercholesterolemia: Yes - Immunization History Immunization Up to Date: Yes - Suicide/Smoking/Psychosocial Hx Smoking Status: No Smoking History: Former smoker Have you smoked in the past 12 months: No Number of Cigarettes Smoked Daily: 0 If you are a former smoker, when did you quit?: 13 Information on smoking cessation initiated: No Hx Alcohol Use: No Drug/Substance Use Hx: No Substance Use Type: None Patient Lives Alone: No Lives with/in: spouse/SO Neuro Specific PMHX - Complaint Specific PMHX Glaucoma: No Herniated Disk: No Laminectomy: No Migraine: Yes Review of Systems - Review of Systems Able to Perform ROS?: Yes Constitutional: No: Symptoms Reported HEENTM: Yes: Eye Pain (mild bilateral retrorbital). No: Blurred Vision, Tearing Respiratory: No: Symptoms reported Cardiac (ROS): No: Symptoms Reported ABD/GI: No: Symptoms Reported, Nausea Musculoskeletal: No: Symptoms Reported Integumentary: No: Symptoms Reported Neurological: Yes: Headache *Physical Exam - Vital Signs Last Vital Signs Temp Pulse Resp BP Pulse Ox 98.8 F 78 19 128/56 100 03/16/17 16:40 03/16/17 16:40 03/16/17 16:40 03/16/17 16:40 03/16/17 16:40 - Physical Exam General Appearance: Yes: Nourished, Appropriately Dressed. No: Apparent Distress HEENT: positive: EOMI, JOSE JUAN, Pharynx Normal Neck: positive: Supple Gastrointestinal/Abdominal: positive: Soft. negative: Tenderness Integumentary: positive: Normal Color, Warm, Moist Neurologic: positive: Motor Strength 5/5 (ambulatory) Medical Decision Making - Medical Decision Making 03/16/17 18:17 Pt with hx of migraine followed by a specialist at [facility] and is due for botox q 3 months. Pt denies atypical s/s or worsening s/s. Pt ordered for dph/toradol IM. 03/16/17 18:37 Patient requesting to go home and wait for the effects to kick in at home since her here for transportation. Patient understands the onset of medication and the need to follow-up with her neurologist as discussed. *DC/Admit/Observation/Transfer Diagnosis at time of Disposition: Migraine - Discharge Dispostion Disposition: HOME Condition at time of disposition: Good - Referrals Referrals: Chantel Soto MD [Primary Care Provider] - - Patient Instructions Printed Discharge Instructions: DI for Migraine Additional Instructions: Please follow-up with referred neurologist as discussed in the 30th and on the 26. Please continue to drink plenty of fluids and take your regular prescribed medication by a neurologist. Return to ED if any given time. - Post Discharge Activity
[2017-03-16] MEDS ORDERED: KETOROLAC TROMETHAMINE 60 MG/2 ML VIAL ONE (18:30)
== END 2017-03-16 18:44 | disposition home or self-care (01) ==
LOC: JERFT 16:14
PROC: 3E0233Z Introduction of Anti-inflammatory into Muscle, Percutaneous Approach (ICD-10-PCS; principal; 2017-03-16)
PROC: 3E023GC Introduction of Other Therapeutic Substance into Muscle, Percutaneous Approach (ICD-10-PCS; 2017-03-16)
DX: G43.909 Migraine, unspecified, not intractable, without status migrainosus (principal); E78.00 Pure hypercholesterolemia, unspecified; K21.9 Gastro-esophageal reflux disease without esophagitis; Z87.891 Personal history of nicotine dependence
CPT/HCPCS: 99281-25

== ENCOUNTER 2017-04-20 14:07 | Emergency (ER) | payer OTHER ==
[2017-04-20 14:17] VITALS: BP 124/62; PULSE 76; TEMP 97.9; BMI 34.2
[2017-04-20] MEDS ORDERED: ONDANSETRON *ODT* 4 MG TABLET SL ONE (14:17)
--- NOTE | 2017-04-20 14:18 | PDOC ---
Rapid Medical Evaluation Time Seen by Provider: 04/20/17 14:14 Medical Evaluation: Allergies Allergy/AdvReac Type Severity Reaction Status Date / Time No Known Allergies Allergy Verified 04/20/17 14:12 04/20/17 14:14 The patient presents with a chief complaint of: Migraine starting last night. Took vicoden and flexeril at home approximately one hour ago. States her pain is currently a 7/10 and is across the front of her head. Admits to nausea. Denies vomiting. I have performed a brief in-person evaluation of this patient; Pertinent physical exam findings: ambulatory, in no respiratory distress, no gross neurologic abnormalities I have ordered the following: Jennfran The patient will proceed to the ED for further evaluation. Discharge Disposition - Referrals Referrals: Chantel Soto MD [Primary Care Provider] - - Patient Instructions - Post Discharge Activity
[2017-04-20] MEDS ORDERED: KETOROLAC TROMETHAMINE 60 MG/2 ML VIAL IM ONE (14:49)
--- NOTE | 2017-04-20 15:01 | PDOC ---
History of Present Illness - General Chief Complaint: Migraine Headache Stated Complaint: Headache Time Seen by Provider: 04/20/17 14:14 History Source: Patient Exam Limitations: No Limitations - History of Present Illness Initial Comments: 04/20/17 14:56 pt presents with headache frontal for 3 days not relieved with OTC migraine medications. This is a typical migraine headache with nausea. Pt denies fever denies neck pain. pt is followed by neurology of [facility], usually receives botox injections. last CT was in July 2016, MRI 6 months ago . Past History - Past Medical History Allergies/Adverse Reactions: Allergies Allergy/AdvReac Type Severity Reaction Status Date / Time No Known Allergies Allergy Verified 04/20/17 14:12 Home Medications: Ambulatory Orders Pantoprazole Sodium 40 mg PO DAILY 12/28/16 Simvastatin 20 mg PO HS 12/28/16 Cardiac Disorders: Yes (pericarditis) COPD: No DVT: No GI Disorders: Yes (GERD) Hypercholesterolemia: Yes Other medical history: MIGRANES - Immunization History Immunization Up to Date: Yes - Suicide/Smoking/Psychosocial Hx Smoking Status: No Smoking History: Former smoker Have you smoked in the past 12 months: No Number of Cigarettes Smoked Daily: 0 If you are a former smoker, when did you quit?: 13 Information on smoking cessation initiated: No Hx Alcohol Use: No Drug/Substance Use Hx: No Substance Use Type: None Neuro Specific PMHX - Complaint Specific PMHX Glaucoma: No Herniated Disk: No Laminectomy: No Migraine: Yes *Physical Exam - Vital Signs Last Vital Signs Temp Pulse Resp BP Pulse Ox 97.9 F 76 19 124/62 100 04/20/17 14:13 04/20/17 14:13 04/20/17 14:13 04/20/17 14:13 04/20/17 14:13 ED Treatment Course - ADDITIONAL ORDERS Additional order review: Laboratory Results 04/20/17 14:22 Urine HCG, Qual Negative - Medications Given in the ED: ED Medications Discontinued Medications Generic Name Dose Route Start Last Admin Trade Name Freq PRN Reason Stop Dose Admin Ondansetron HCl 4 mg 04/20/17 14:17 04/20/17 14:19 Zofran Odt - SL 04/20/17 14:18 4 mg ONCE ONE Administration Medical Decision Making - Medical Decision Making 04/20/17 14:58 cc: acute on chronic migraine headache with nausea no fever no chills pt is asking for toradol and benadryl as that relieves the headache ambulatory steady gait no distress. *DC/Admit/Observation/Transfer Diagnosis at time of Disposition: Migraine Qualifiers: Migraine type: other Status migrainosus presence: with status migrainosus Intractability: not intractable Qualified Code(s): G43.801 - Other migraine, not intractable, with status migrainosus - Discharge Dispostion Disposition: HOME Condition at time of disposition: Good - Referrals Referrals: Chantel Soto MD [Primary Care Provider] - - Patient Instructions Printed Discharge Instructions: DI for Migraine Additional Instructions: please follow with your neurologist drink pleanty of water rest a dark quiet cool room avoid loud noise and reading - Post Discharge Activity
== END 2017-04-20 15:16 | disposition home or self-care (01) ==
LOC: JER 14:07 → JERFT 14:07
PROC: 3E0233Z Introduction of Anti-inflammatory into Muscle, Percutaneous Approach (ICD-10-PCS; principal; 2017-04-20)
PROC: 3E033GC Introduction of Other Therapeutic Substance into Peripheral Vein, Percutaneous Approach (ICD-10-PCS; 2017-04-20)
DX: G43.801 Other migraine, not intractable, with status migrainosus (principal); Z87.891 Personal history of nicotine dependence
CPT/HCPCS: 84703; 99281-25

== ENCOUNTER 2017-05-29 00:25 | Emergency (ER) | payer OTHER ==
[2017-05-29 00:31] VITALS: BP 134/73; PULSE 87; TEMP 98.7; BMI 35.2
--- NOTE | 2017-05-29 00:48 | PDOC ---
History of Present Illness - General Chief Complaint: Migraine Headache Stated Complaint: HEADACHE Time Seen by Provider: 05/29/17 00:47 - History of Present Illness Initial Comments: 46 year old female with migraines presenting with another episode of migraines that she describes as her usual frontal 7/10 bilateral sharp pain that co- presents with nausea but no vomiting. Her headache started earlier today at [facility] then she began to become nauseous while attempting to go to bed. Her headache started to get worse so she came to the ED. Denies any neuro deficit, vomiting, diarrhea, visual symptoms, SOB, chest pain, or other symptoms. She ran out of her imatrex and called her neurologist who may have refilled it but she is not sure. 05/29/17 02:15 Past History - Past Medical History Allergies/Adverse Reactions: Allergies Allergy/AdvReac Type Severity Reaction Status Date / Time No Known Allergies Allergy Verified 05/29/17 00:28 Home Medications: Ambulatory Orders Pantoprazole Sodium 40 mg PO DAILY 12/28/16 Simvastatin 20 mg PO HS 12/28/16 Cardiac Disorders: Yes (pericarditis) COPD: No DVT: No GI Disorders: Yes (GERD) Hypercholesterolemia: Yes - Immunization History Immunization Up to Date: Yes - Suicide/Smoking/Psychosocial Hx Smoking Status: No Smoking History: Never smoked Have you smoked in the past 12 months: No Number of Cigarettes Smoked Daily: 0 If you are a former smoker, when did you quit?: 13 Information on smoking cessation initiated: No Hx Alcohol Use: No Drug/Substance Use Hx: No Substance Use Type: None Review of Systems - Review of Systems Constitutional: No: Chills, Diaphoresis, Fever HEENTM: No: Blurred Vision, Double Vision Respiratory: No: Cough, Orthopnea, Shortness of Breath Cardiac (ROS): No: Chest Pain, Edema, Irregular Heart Rate ABD/GI: Yes: Nausea. No: Diarrhea, Vomiting : No: Dysuria, Discharge Integumentary: No: Bruising, Change in Color, Rash Neurological: Yes: Headache. No: Numbness, Paresthesia *Physical Exam - Vital Signs Last Vital Signs Temp Pulse Resp BP Pulse Ox 98.7 F 87 18 134/73 100 05/29/17 00:29 05/29/17 00:29 05/29/17 00:29 05/29/17 00:29 05/29/17 00:29 - Physical Exam General Appearance: Yes: Nourished, Appropriately Dressed. No: Apparent Distress HEENT: positive: EOMI, JOSE JUAN, Normal ENT Inspection, Normal Voice Neck: positive: Trachea midline, Normal Thyroid, Supple. negative: Tender, Rigid Respiratory/Chest: positive: Lungs Clear, Normal Breath Sounds. negative: Chest Tender, Respiratory Distress Cardiovascular: positive: Regular Rhythm, Regular Rate Gastrointestinal/Abdominal: positive: Normal Bowel Sounds, Flat, Soft. negative : Tender Musculoskeletal: positive: Normal Inspection. negative: Decreased Range of Motion Extremity: positive: Normal Capillary Refill, Normal Inspection, Normal Range of Motion. negative: Tender Integumentary: positive: Normal Color, Dry, Warm Neurologic: positive: Fully Oriented, Alert, Normal Mood/Affect, Normal Response , Motor Strength 5/5 Medical Decision Making - Medical Decision Making 46 year old female with PMH of migraines presenting with headaches that are exactly like her migraines according to her. Denies any focal neuro deficit. She sees her neurologist closely. Upreg negative, pain better after Toradol 30 IM, Benadryl 25 IM, and PO Reglan 10. Will DC her with instructions to follow up with him. 05/29/17 02:21 *DC/Admit/Observation/Transfer Diagnosis at time of Disposition: Status migrainosus without intractable migraine Qualifiers: Migraine type: unspecified Qualified Code(s): G43.901 - Migraine, unspecified, not intractable, with status migrainosus - Discharge Dispostion Disposition: HOME Condition at time of disposition: Improved Admit: No - Referrals Referrals: Chantel Soto MD [Primary Care Provider] - - Patient Instructions Printed Discharge Instructions: DI for Migraine Additional Instructions: Please follow up with your neurologist to discuss your prescription maintenance. Please return to the ED if you have new or worsening symptoms. - Post Discharge Activity
[2017-05-29] MEDS ORDERED: METOCLOPRAMIDE HCL 10 MG TABLET (FP) PO ONE ×2 (01:28→01:35)
[2017-05-29] MEDS ORDERED: diphenhydrAMINE HCL 25 MG CAPSULE (FP) PO ONE ×2 (01:28→01:34)
[2017-05-29] MEDS ORDERED: KETOROLAC TROMETHAMINE 30 MG/1 ML VIAL IM ONE (01:28)
[2017-05-29] MEDS ORDERED: KETOROLAC TROMETHAMINE 30 MG/1 ML VIAL ONE (01:35)
--- NOTE | 2017-05-29 03:09 | PDOC ---
Attending Attestation - Resident Resident Name: Bia Wilson - ED Attending Attestation I have performed the following: I have examined & evaluated the patient, The case was reviewed & discussed with the resident, I agree w/resident's findings & plan, Exceptions are as noted - Medical Decision Making 05/29/17 03:06 46 yo F with h/o migraines, on immitrex ran out,here with headache for today. mild nausea, no v/ no head trauma. no mod factors. no weakness. on exam awake alert normal nuero exam. plan will treat toradol benadryl , and reglan . will reassess. has nuerology followup. pt feeling improved. dc home. <Jerilyn Allen - Last Filed: 05/29/17 03:06> - HPI HPI: 05/29/17 03:09 Patient is a 46 year old female with a significant past medical history of migraine, HLD,and GERD who presents to the ED with complaints of multiple migraine episodes that she states began earlier this afternoon. Patient reports experiencing gradual migraine while in faith this morning that she states is a sharp 7/10 pain. She reports experiencing associated symptoms of nausea but denies any episodes of vomiting. Patient reports taking a dose of hydrocodone that she got from her friend that she states offered slight relief. Denies chest pain, Sob. Denies contact with sick individuals, out of state travelling. Denies any other symptoms. Allergies: None Social history: No smoking. No alcohol. No illicit drugs. Surgical history: None PMD: Dr. Soto - Physicial Exam PE: 05/29/17 03:10 GENERAL: Awake, alert, and fully oriented, in no acute distress HEAD: No signs of trauma EYES: PERRLA, EOMI, sclera anicteric, conjunctiva clear ENT: Auricles normal inspection, nares patent, Moist mucosa NECK: Normal ROM, supple, no lymphadenopathy, JVD, or masses LUNGS: Breath sounds equal, clear to auscultation bilaterally. No wheezes, and no crackles HEART: Regular rate and rhythm, normal S1 and S2, no murmurs, rubs or gallops ABDOMEN: Soft, nontender, normoactive bowel sounds. No guarding, no rebound. No masses EXTREMITIES: Normal range of motion, no edema. No clubbing or cyanosis. No cords, erythema, or tenderness NEUROLOGICAL: Normal speech SKIN: Warm, Dry, normal turgor, no rashes or lesions noted. <Nic Vidal - Last Filed: 05/29/17 03:10>
== END 2017-05-29 02:31 | disposition home or self-care (01) ==
LOC: JER 00:25
PROC: 3E0233Z Introduction of Anti-inflammatory into Muscle, Percutaneous Approach (ICD-10-PCS; principal; 2017-05-29)
PROC: 3E033GC Introduction of Other Therapeutic Substance into Peripheral Vein, Percutaneous Approach (ICD-10-PCS; 2017-05-29)
DX: G43.901 Migraine, unspecified, not intractable, with status migrainosus (principal); K21.9 Gastro-esophageal reflux disease without esophagitis; E78.00 Pure hypercholesterolemia, unspecified; Z86.79 Personal history of other diseases of the circulatory system
CPT/HCPCS: 84703; 96372; 99281-25

== ENCOUNTER 2017-06-07 08:30 | Emergency (ER) | payer OTHER ==
[2017-06-07 08:51] VITALS: BP 122/66; PULSE 71; TEMP 98.8; BMI 34.4
[2017-06-07] MEDS ORDERED: KETOROLAC TROMETHAMINE 60 MG/2 ML VIAL IM ONE (08:53)
[2017-06-07] MEDS ORDERED: KETOROLAC TROMETHAMINE 60 MG/2 ML VIAL ONE (09:14)
--- NOTE | 2017-06-07 10:25 | PDOC ---
History of Present Illness - General Chief Complaint: Migraine Headache Stated Complaint: Migraine Headache Time Seen by Provider: 06/07/17 08:53 History Source: Patient Exam Limitations: No Limitations - History of Present Illness Initial Comments: 06/07/17 11:50 Patient is a 46-year-old female, here requesting Toradol and Benadryl reports having history of migraines on naratriptan. The medication works however, if she does not take medication when symptoms start it does not work as well. Has been having headaches more often. Patient denies any neurosensory deficits, no vomiting, no visual disturbance. Pain is unchanged since previous episodes. Denies trauma. Past Medical History: Migraines Allergies: No known allergies Medications: simvistatin, pantoprazole Family History: Non-contributory Social History: Denies smoking, alcohol use, or IVDU Review of Systems GENERAL/CONSTITUTIONAL: No fever or chills. No weakness. No weight change. HEAD, EYES, EARS, NOSE AND THROAT: No change in vision. No ear pain or discharge. No sore throat. CARDIOVASCULAR: No chest pain or shortness of breath. RESPIRATORY: No cough, wheezing, or hemoptysis. GASTROINTESTINAL: No nausea, vomiting, diarrhea or constipation. No rectal bleeding. GENITOURINARY: No dysuria, frequency, or change in urination. MUSCULOSKELETAL: No joint or muscle swelling or pain. No neck or back pain. SKIN AND BREASTS: No rash or easy bruising. NEUROLOGIC: + headache, no vertigo, loss of consciousness, or loss of sensation. PSYCHIATRIC: No depression or anxiety. ENDOCRINE: No increased thirst. No abnormal weight change. HEMATOLOGIC/LYMPHATIC: No anemia, easy bleeding, or history of blood clots. ALLERGIC/IMMUNOLOGIC: No hives or skin allergy. No latex allergy. Physical Exam: GENERAL: The patient is awake, alert, and fully oriented, in no acute distress. HEAD: Normal with no signs of trauma. EYES: Pupils equal, round and reactive to light, extraocular movements intact, sclera anicteric, conjunctiva clear. ENT: Ears normal, nares patent, oropharynx clear without exudates. Moist mucous membranes. No uvula deviation NECK: Normal range of motion, supple without lymphadenopathy, JVD, or masses. LUNGS: Breath sounds equal, clear to auscultation bilaterally. No wheezes, and no crackles. HEART: Regular rate and rhythm, normal S1 and S2 without murmur, rub or gallop. ABDOMEN: Soft, nontender, normoactive bowel sounds. No guarding, no rebound. No masses. No bruising or abrasions MUSCULOSKELETAL: Normal range of motion, no edema. No clubbing or cyanosis. No cords, erythema, or tenderness. No CVA Tenderness with fist. NEUROLOGICAL: Cranial nerves II through XII grossly intact. Normal speech, normal gait. PSYCH: Normal mood, normal affect. SKIN: Warm, Dry, normal turgor, no rashes or lesions noted. Past History - Past Medical History Allergies/Adverse Reactions: Allergies Allergy/AdvReac Type Severity Reaction Status Date / Time No Known Allergies Allergy Verified 06/07/17 08:51 Home Medications: Ambulatory Orders Pantoprazole Sodium 40 mg PO DAILY 12/28/16 Simvastatin 20 mg PO HS 12/28/16 Cardiac Disorders: Yes (pericarditis) COPD: No DVT: No GI Disorders: Yes (GERD) Hypercholesterolemia: Yes - Immunization History Immunization Up to Date: Yes - Suicide/Smoking/Psychosocial Hx Smoking Status: No Smoking History: Never smoked Have you smoked in the past 12 months: No Number of Cigarettes Smoked Daily: 0 If you are a former smoker, when did you quit?: 13 Information on smoking cessation initiated: No Hx Alcohol Use: No Drug/Substance Use Hx: No Substance Use Type: None *Physical Exam - Vital Signs Last Vital Signs Temp Pulse Resp BP Pulse Ox 98.8 F 71 18 122/66 100 06/07/17 08:48 06/07/17 08:48 06/07/17 08:48 06/07/17 08:48 06/07/17 08:48 ED Treatment Course - Medications Given in the ED: ED Medications Discontinued Medications Generic Name Dose Route Start Last Admin Trade Name Freq PRN Reason Stop Dose Admin Diphenhydramine HCl 50 mg 06/07/17 09:30 06/07/17 09:35 Benadryl Injection - IM 06/07/17 09:31 50 mg ONCE ONE Administration Ketorolac Tromethamine 60 mg 06/07/17 08:53 06/07/17 09:25 Toradol Injection - IM 06/07/17 08:54 60 mg ONCE ONE Administration Medical Decision Making - Medical Decision Making 06/07/17 11:51 A/P: Patient here for migraine, requesting Toradol and Benadryl I have given patient 60 mg of Toradol and 50 mg of Benadryl IM. I have encouraged patient to follow-up with headache specialist she is coming more frequently and needs proper follow-up. She verbalized understanding will follow-up with Dr Soto and neurology *DC/Admit/Observation/Transfer Diagnosis at time of Disposition: Migraine Qualifiers: Migraine type: unspecified Status migrainosus presence: without status migrainosus Intractability: not intractable Qualified Code(s): G43.909 - Migraine, unspecified, not intractable, without status migrainosus - Discharge Dispostion Disposition: HOME Condition at time of disposition: Stable Admit: No - Referrals Referrals: Chantel Soto MD [Primary Care Provider] - - Patient Instructions Printed Discharge Instructions: DI for Migraine Additional Instructions: Increase fluids, recommend follow-up with neurology - Post Discharge Activity
== END 2017-06-07 10:38 | disposition home or self-care (01) ==
LOC: JERFT 08:30 → JER 08:30 → JERFT 10:38
PROC: 3E023GC Introduction of Other Therapeutic Substance into Muscle, Percutaneous Approach (ICD-10-PCS; principal; 2017-06-07)
PROC: 3E0233Z Introduction of Anti-inflammatory into Muscle, Percutaneous Approach (ICD-10-PCS; 2017-06-07)
DX: G43.909 Migraine, unspecified, not intractable, without status migrainosus (principal)
CPT/HCPCS: 96372; 99281-25

== ENCOUNTER 2017-07-02 14:29 | Emergency (ER) | payer OTHER ==
[2017-07-02 14:37] VITALS: BP 126/78; PULSE 62; TEMP 97.9; BMI 35.2
[2017-07-02] MEDS ORDERED: KETOROLAC TROMETHAMINE 60 MG/2 ML VIAL IM ONE (14:56)
[2017-07-02] MEDS ORDERED: KETOROLAC TROMETHAMINE 60 MG/2 ML VIAL ONE (15:00)
--- NOTE | 2017-07-02 15:01 | PDOC ---
History of Present Illness - General Chief Complaint: Migraine Headache Stated Complaint: MIGRAINE Time Seen by Provider: 07/02/17 14:49 History Source: Patient Exam Limitations: No Limitations - History of Present Illness Associated Symptoms: denies: denies symptoms, confusion, fatigue, fever/chills, muscle spasms, nausea/vomiting, numbness in legs/feet, paresthesia, ringing in ears Past History - Travel Traveled outside of the country in the last 30 days: No Close contact w/someone who was outside of country & ill: No - Past Medical History Allergies/Adverse Reactions: Allergies Allergy/AdvReac Type Severity Reaction Status Date / Time No Known Allergies Allergy Verified 06/09/17 08:53 Home Medications: Ambulatory Orders Pantoprazole Sodium 40 mg PO DAILY 12/28/16 Simvastatin 20 mg PO HS 12/28/16 Cardiac Disorders: Yes (pericarditis) COPD: No DVT: No GI Disorders: Yes (GERD) Hypercholesterolemia: Yes - Immunization History Immunization Up to Date: Yes - Suicide/Smoking/Psychosocial Hx Smoking Status: No Smoking History: Never smoked Have you smoked in the past 12 months: No Number of Cigarettes Smoked Daily: 0 If you are a former smoker, when did you quit?: 13 Information on smoking cessation initiated: No Hx Alcohol Use: No Drug/Substance Use Hx: No Substance Use Type: None Neuro Specific PMHX - Complaint Specific PMHX Glaucoma: No Herniated Disk: No Laminectomy: No Migraine: Yes Review of Systems - Review of Systems Is the patient limited [place] proficient: No Constitutional: No: Chills, Fever Respiratory: No: Cough, Orthopnea, Shortness of Breath Cardiac (ROS): No: Chest Pain, Lightheadedness, Palpitations, Syncope Neurological: Yes: Headache. No: Numbness, Paresthesia, Pre-Existing Deficit, Seizure, Tingling, Tremors, Weakness, Dizziness *Physical Exam - Vital Signs Last Vital Signs Temp Pulse Resp BP Pulse Ox 97.9 F 62 20 126/78 100 07/02/17 14:34 07/02/17 14:34 07/02/17 14:34 07/02/17 14:34 07/02/17 14:34 - Physical Exam General Appearance: Yes: Nourished HEENT: positive: EOMI, JOSE JUAN, TMs Normal, Pharynx Normal Neck: positive: Supple Respiratory/Chest: positive: Lungs Clear, Normal Breath Sounds Cardiovascular: positive: Regular Rhythm, Regular Rate, S1, S2 Extremity: positive: Normal Capillary Refill Integumentary: positive: Normal Color Neurologic: positive: leather stretcher II-XII NML intact, Fully Oriented, Alert, Normal Response, Motor Strength 5/5 Medical Decision Making - Medical Decision Making 07/02/17 15:01 46y/o F with h/o migriane OSCAR, last seen in ED 05/2017, s/p botox injection 2wks ago at Neurologist office, pt is also taking imitrex. Reports the heat triggered her OSCAR yesterday and she worked overnight. She denies f/c, stiff neck , photo/phonophobia or blurred vision. Requesting toradol/benadryl. Last CT imaging 08/16/16 Patient has a nonfocal neuro neurologic exam here in the emergency room vital signs are stable. Patient advised to follow up with neurologist for a better plan for headache management. Patient also recommended to follow-up ophthalmology given she with corrective contact lenses but has not seen one in 3 years. Patient discussed at length that Toradol and Benadryl cannot be the main treatment for each time she has a headache flare. *DC/Admit/Observation/Transfer Diagnosis at time of Disposition: Migraine Qualifiers: Migraine type: without aura Status migrainosus presence: without status migrainosus Intractability: not intractable Qualified Code(s): G43.009 - Migraine without aura, not intractable, without status migrainosus - Discharge Dispostion Disposition: HOME Condition at time of disposition: Stable Admit: No - Referrals Referrals: Chantel Soto MD [Primary Care Provider] - - Patient Instructions Printed Discharge Instructions: DI for Migraine - Post Discharge Activity
== END 2017-07-02 15:25 | disposition home or self-care (01) ==
LOC: JERFT 14:29
PROC: 3E0233Z Introduction of Anti-inflammatory into Muscle, Percutaneous Approach (ICD-10-PCS; principal; 2017-07-02)
PROC: 3E023GC Introduction of Other Therapeutic Substance into Muscle, Percutaneous Approach (ICD-10-PCS; 2017-07-02)
PROC: 3E023GC Introduction of Other Therapeutic Substance into Muscle, Percutaneous Approach (ICD-10-PCS; 2017-07-02)
DX: G43.009 Migraine without aura, not intractable, without status migrainosus (principal)
CPT/HCPCS: 96372; 99281-25

== ENCOUNTER 2017-07-06 08:30 | Emergency (ER) | payer OTHER ==
[2017-07-06 08:43] VITALS: BP 119/73; PULSE 69; TEMP 98.6; BMI 35.2
[2017-07-06] MEDS ORDERED: KETOROLAC TROMETHAMINE 60 MG/2 ML VIAL IM ONE (09:02)
[2017-07-06] MEDS ORDERED: ONDANSETRON *ODT* 4 MG TABLET SL ONE (09:17)
--- NOTE | 2017-07-06 09:17 | PDOC ---
History of Present Illness - General Chief Complaint: Migraine Headache Stated Complaint: MIGRAINES Time Seen by Provider: 07/06/17 09:00 History Source: Patient Exam Limitations: No Limitations - History of Present Illness Initial Comments: 07/06/17 09:21 Came to emergency department, well-known to this ER for recurrent headache known to be her migraine. Takes multiple medications including most recent Botox injection on June 26 to be treated for migraine chronic headache pain. Patient sees Dr. White neurology and is continuing her treatment for migraines. States is seen here frequently for Toradol and Benadryl injections which help the breakthrough pain. No fevers ear or throat pain, no URI symptoms. No Changes in behaviors, no changes in neuro status, states headache is same headache she suffers on a very regular and chronic basis. Timing/Duration: reports: unknown Associated Symptoms: reports: fatigue. denies: fever/chills Past History - Travel Traveled outside of the country in the last 30 days: No Close contact w/someone who was outside of country & ill: No - Past Medical History Allergies/Adverse Reactions: Allergies Allergy/AdvReac Type Severity Reaction Status Date / Time No Known Allergies Allergy Verified 07/06/17 08:39 Home Medications: Ambulatory Orders Pantoprazole Sodium 40 mg PO DAILY 12/28/16 Simvastatin 20 mg PO HS 12/28/16 Cardiac Disorders: Yes (pericarditis) COPD: No DVT: No GI Disorders: Yes (GERD) Hypercholesterolemia: Yes - Immunization History Immunization Up to Date: Yes - Suicide/Smoking/Psychosocial Hx Smoking Status: No Smoking History: Never smoked Have you smoked in the past 12 months: No Number of Cigarettes Smoked Daily: 0 If you are a former smoker, when did you quit?: 13 Information on smoking cessation initiated: No Hx Alcohol Use: No Drug/Substance Use Hx: No Substance Use Type: None Neuro Specific PMHX - Complaint Specific PMHX Glaucoma: No Herniated Disk: No Laminectomy: No Migraine: Yes Review of Systems - Review of Systems Able to Perform ROS?: Yes Is the patient limited [place] proficient: Yes Constitutional: Yes: Symptoms Reported, See HPI, Malaise HEENTM: Yes: See HPI. No: Symptoms Reported, Eye Pain, Tearing Respiratory: No: Symptoms reported Cardiac (ROS): No: Symptoms Reported Musculoskeletal: No: Symptoms Reported Integumentary: No: Symptoms Reported Neurological: Yes: Symptoms reported, See HPI, Headache. No: Numbness, Paresthesia, Weakness All Other Systems: Reviewed and Negative *Physical Exam - Vital Signs Last Vital Signs Temp Pulse Resp BP Pulse Ox 98.6 F 69 18 119/73 100 07/06/17 08:39 07/06/17 08:39 07/06/17 08:39 07/06/17 08:39 07/06/17 08:39 - Physical Exam General Appearance: Yes: Nourished, Appropriately Dressed HEENT: positive: JOSE JUAN, Normal ENT Inspection, Normal Voice, TMs Normal, Pharynx Normal Neck: positive: Tender, Supple Respiratory/Chest: positive: Lungs Clear Gastrointestinal/Abdominal: positive: Soft. negative: Tender Musculoskeletal: positive: Normal Inspection, CVA Tenderness Integumentary: positive: Normal Color, Dry, Warm, Pale Neurologic: positive: technical buyer II-XII NML intact, Fully Oriented, Alert, Normal Mood/ Affect, Normal Response, Motor Strength 5/5 Progress Note - Progress Note Progress Note: Classic migraine exacerbation, treated with Toradol and Benadryl IM injections with the Zofran for mild nausea. Will follow-up with her neurology. *DC/Admit/Observation/Transfer Diagnosis at time of Disposition: Migraine Qualifiers: Migraine type: unspecified Status migrainosus presence: with status migrainosus Intractability: not intractable Qualified Code(s): G43.901 - Migraine, unspecified, not intractable, with status migrainosus - Discharge Dispostion Disposition: HOME Condition at time of disposition: Stable Decision to Admit order: No - Referrals Referrals: Chantel Soto MD [Primary Care Provider] - - Patient Instructions Printed Discharge Instructions: DI for Headache Additional Instructions: Rest, drink lots of fluids: Teas, water, soups, Avoid strenuous activity or exercise until pain resolves Continue [id number] medications for symptomatic relief Tylenol or Motrin for fever and pain Into new other headache medications as prescribed Followup with private physician in one to 2 days as needed Return to emergency department for worsened symptoms, fevers, dehydration - Post Discharge Activity
== END 2017-07-06 09:24 | disposition home or self-care (01) ==
LOC: JERFT 08:30
PROC: 3E0233Z Introduction of Anti-inflammatory into Muscle, Percutaneous Approach (ICD-10-PCS; principal; 2017-07-06)
PROC: 3E023GC Introduction of Other Therapeutic Substance into Muscle, Percutaneous Approach (ICD-10-PCS; 2017-07-06)
DX: G43.901 Migraine, unspecified, not intractable, with status migrainosus (principal); K21.9 Gastro-esophageal reflux disease without esophagitis
CPT/HCPCS: 99281-25; Q0162

== ENCOUNTER 2017-07-13 18:41 | Emergency (ER) | payer OTHER ==
--- NOTE | 2017-07-13 18:51 | PDOC ---
Rapid Medical Evaluation Medical Evaluation: Allergies Allergy/AdvReac Type Severity Reaction Status Date / Time No Known Allergies Allergy Verified 07/06/17 08:39 07/13/17 18:46 The patient presents with a chief complaint of: Migraine starting last night. Worked overnight last night. Last saw the neurologist June 26. I have performed a brief in-person evaluation of this patient; Pertinent physical exam findings: ambulatory, in no respiratory distress. No gross neuro deficits I have ordered the following: Nothing The patient will proceed to the ED for further evaluation.
[2017-07-13 18:57] VITALS: BP 130/74; PULSE 76; TEMP 98.3; BMI 35.2
[2017-07-13] MEDS ORDERED: morphine CARPU-JECT 2 MG/1 ML DISP.SYRIN IM ONE ×3 (19:18→20:00)
--- NOTE | 2017-07-13 19:26 | PDOC ---
History of Present Illness - General Chief Complaint: Pain Stated Complaint: MIGRAINE Time Seen by Provider: 07/13/17 18:51 History Source: Patient Exam Limitations: No Limitations - History of Present Illness Initial Comments: 07/13/17 19:26 46-year-old female presents to the ED for evaluation of frontal /retro-orbital migraine for the past 2 days after eating onions which she states is the trigger for her migraines. Patient states was seen by her neurologist 2 weeks ago was given Botox. Patient states she normally takes Toradol and Benadryl which seems to alleviate her symptoms. Patient states that headache is same presentation as previous episodes without change in presentation. Timing/Duration: reports: 4-6 hours Severity: Yes: mild Associated Symptoms: reports: other Past History - Travel Traveled outside of the country in the last 30 days: No - Past Medical History Allergies/Adverse Reactions: Allergies Allergy/AdvReac Type Severity Reaction Status Date / Time No Known Allergies Allergy Verified 07/13/17 18:50 Home Medications: Ambulatory Orders Pantoprazole Sodium 40 mg PO DAILY 12/28/16 Simvastatin 20 mg PO HS 12/28/16 Cardiac Disorders: Yes (pericarditis) COPD: No DVT: No GI Disorders: Yes (GERD) Hypercholesterolemia: Yes - Immunization History Immunization Up to Date: Yes - Suicide/Smoking/Psychosocial Hx Smoking Status: No Smoking History: Never smoked Have you smoked in the past 12 months: No Number of Cigarettes Smoked Daily: 0 If you are a former smoker, when did you quit?: 13 Information on smoking cessation initiated: No Hx Alcohol Use: No Drug/Substance Use Hx: No Substance Use Type: None Patient Lives Alone: No Neuro Specific PMHX - Complaint Specific PMHX Glaucoma: No Herniated Disk: No Laminectomy: No Migraine: Yes Review of Systems - Review of Systems Able to Perform ROS?: Yes Constitutional: No: Symptoms Reported HEENTM: No: Symptoms Reported Respiratory: No: Symptoms reported Cardiac (ROS): No: Symptoms Reported ABD/GI: No: Symptoms Reported : No: Symptoms Reported Musculoskeletal: No: Symptoms Reported Integumentary: No: Symptoms Reported Neurological: Yes: Headache. No: Paresthesia, Weakness, Dizziness Hematologic/Lymphatic: No: Symptoms Reported *Physical Exam - Vital Signs Last Vital Signs Temp Pulse Resp BP Pulse Ox 98.3 F 76 18 130/74 100 07/13/17 18:50 07/13/17 18:50 07/13/17 18:50 07/13/17 18:50 07/13/17 18:50 - Physical Exam General Appearance: Yes: Nourished, Appropriately Dressed. No: Apparent Distress HEENT: positive: EOMI, JOSE JUAN, Pharynx Normal. negative: Pale Conjunctivae Neck: positive: Supple Respiratory/Chest: positive: Lungs Clear, Normal Breath Sounds. negative: Respiratory Distress, Accessory Muscle Use Cardiovascular: positive: Regular Rhythm, Regular Rate. negative: Murmur Gastrointestinal/Abdominal: positive: Soft. negative: Tenderness Integumentary: positive: Normal Color, Warm, Moist Neurologic: positive: Motor Strength 5/5 (ambulatory) Medical Decision Making - Medical Decision Making 07/13/17 19:30 Patient here requesting Toradol and Benadryl IM for her migraine treatment. Patient has no acute findings on exam or change in presentation based on her history. Patient has been seen numerous times in the ER for the same. Patient last dose of Toradol was on the 10th (7 days ago). Explained to patient on receiving Toradol frequently in regards to her kidneys and adverse effects. Patient will be given morphine 4 mg along with Benadryl 50 mg IM and will be discharged. *DC/Admit/Observation/Transfer Diagnosis at time of Disposition: Migraine - Discharge Dispostion Disposition: HOME Condition at time of disposition: Good - Referrals Referrals: Chantel Soto MD [Primary Care Provider] - - Patient Instructions Printed Discharge Instructions: DI for Migraine Additional Instructions: Please avoid triggers and follow-up with your neurologist. - Post Discharge Activity
[2017-07-13] MEDS ORDERED: MORPHINE SULFATE 10 MG/1 ML *VIAL ONE (19:34)
[2017-07-13] MEDS ORDERED: NAPROXEN 250 MG TABLET (FP) PO ONE (19:48)
[2017-07-13] MEDS ORDERED: NAPROXEN 500 MG TABLET (FP) ONE (19:53)
[2017-07-13] MEDS ORDERED: morphine SULFATE 4 MG/ML VIAL IM ONE ×2 (20:00)
== END 2017-07-13 19:59 | disposition home or self-care (01) ==
LOC: JERFT 18:41 → JER 18:41 → JERFT 19:59
PROC: 3E023GC Introduction of Other Therapeutic Substance into Muscle, Percutaneous Approach (ICD-10-PCS; principal; 2017-07-13)
DX: G43.909 Migraine, unspecified, not intractable, without status migrainosus (principal); K21.9 Gastro-esophageal reflux disease without esophagitis; E78.00 Pure hypercholesterolemia, unspecified
CPT/HCPCS: 99281-25

== ENCOUNTER 2017-07-23 22:22 | Emergency (ER) | payer OTHER ==
[2017-07-23 22:38] VITALS: BP 129/73; PULSE 109; TEMP 98.8; BMI 29.7
[2017-07-24] MEDS ORDERED: KETOROLAC TROMETHAMINE 60 MG/2 ML VIAL IM ONE (00:15)
[2017-07-24] MEDS ORDERED: METOCLOPRAMIDE HCL 10 MG TABLET (FP) PO ONE (00:15)
[2017-07-24] MEDS ORDERED: KETOROLAC TROMETHAMINE 60 MG/2 ML VIAL ONE (00:24)
[2017-07-24] MEDS ORDERED: METOCLOPRAMIDE HCL INJECTION 10 MG/2 ML VIAL ONE (00:25)
--- NOTE | 2017-07-24 00:35 | PDOC ---
History of Present Illness - General Chief Complaint: Migraine Headache Stated Complaint: HEADACHE Time Seen by Provider: 07/24/17 00:14 History Source: Patient Exam Limitations: No Limitations - History of Present Illness Initial Comments: 07/24/17 00:16 46-year-old female with history of migraine headaches chronically complaining of headache 2 days associated with nausea, no vomiting, (+) photophobia. Pain is frontal 9/10 dull aching associated with nausea. States she took Imitrex at 1 PM today and Vicodin one to 2 hours ago. She is on Botox every 90 days last dose was May. States when her headache is just bad she usually comes to the emergency room and gets a cocktail of Toradol and Reglan and Benadryl which alleviates her pain. Denies fever, chills, dysuria, abdominal pain. PMD: Dr. Soto NEURO: Dr. White PMHX: as above PSOCHX: Neg cig, EtOH, drugs ALL: NKDA GENERAL/CONSTITUTIONAL: [No fever or chills. No weakness. No weight change.] HEAD, EYES, EARS, NOSE AND THROAT: [No change in vision. No ear pain or discharge. No sore throat.] CARDIOVASCULAR: [No chest pain or shortness of breath.] RESPIRATORY: [No cough, wheezing, or hemoptysis.] GASTROINTESTINAL: [No nausea, vomiting, diarrhea or constipation. No rectal bleeding.] GENITOURINARY: [No dysuria, frequency, or change in urination.] MUSCULOSKELETAL: [No joint or muscle swelling or pain. No neck or back pain.] SKIN AND BREASTS: [No rash or easy bruising.] NEUROLOGIC: (+) headache, vertigo, loss of consciousness, or loss of sensation.] PSYCHIATRIC: [No depression or anxiety.] ENDOCRINE: [No increased thirst. No abnormal weight change.] HEMATOLOGIC/LYMPHATIC: [No anemia, easy bleeding, or history of blood clots.] ALLERGIC/IMMUNOLOGIC: [No hives or skin allergy. No latex allergy.] GENERAL: [The patient is awake, alert, and fully oriented, in no acute distress. ] HEAD: [Normal with no signs of trauma.] EYES: [Pupils equal, round and reactive to light, extraocular movements intact, sclera anicteric, conjunctiva clear.] ENT: [Ears normal, nares patent, oropharynx clear without exudates. Moist mucous membranes.] NECK: [Normal range of motion, supple without lymphadenopathy, JVD, or masses.] LUNGS: [Breath sounds equal, clear to auscultation bilaterally. No wheezes, and no crackles.] HEART: [Regular rate and rhythm, normal S1 and S2 without murmur, rub.] ABDOMEN: [Soft, nontender, normoactive bowel sounds. No guarding, no rebound. No masses.] EXTREMITIES: [Normal range of motion, no edema. No clubbing or cyanosis. No cords, erythema, or tenderness.] NEUROLOGICAL: [Cranial nerves II through XII grossly intact. Normal speech, normal gait. No nystagmus] PSYCH: [Normal mood, normal affect.] SKIN: [Warm, Dry, normal turgor, no rashes or lesions noted.] Past History - Past Medical History Allergies/Adverse Reactions: Allergies Allergy/AdvReac Type Severity Reaction Status Date / Time No Known Allergies Allergy Verified 07/23/17 22:36 Home Medications: Ambulatory Orders Pantoprazole Sodium 40 mg PO DAILY 12/28/16 Simvastatin 20 mg PO HS 12/28/16 Cardiac Disorders: Yes (pericarditis) COPD: No DVT: No GI Disorders: Yes (GERD) Hypercholesterolemia: Yes Other medical history: migraines - Immunization History Immunization Up to Date: Yes - Suicide/Smoking/Psychosocial Hx Smoking Status: No Smoking History: Never smoked Have you smoked in the past 12 months: No Number of Cigarettes Smoked Daily: 0 If you are a former smoker, when did you quit?: 13 Hx Alcohol Use: No Drug/Substance Use Hx: No Substance Use Type: None Neuro Specific PMHX - Complaint Specific PMHX Glaucoma: No Herniated Disk: No Laminectomy: No Migraine: Yes *Physical Exam - Vital Signs Last Vital Signs Temp Pulse Resp BP Pulse Ox 98.8 F 109 H 18 129/73 100 07/23/17 22:36 07/23/17 22:36 07/23/17 22:36 07/23/17 22:36 07/23/17 22:36 Medical Decision Making - Medical Decision Making 46-year-old female with history of migraine headaches chronically complaining of headache 2 days associated with nausea, no vomiting, (+) photophobia. Will treat with Toradol, Reglan, Benadryl. Patient walked out after treatment *DC/Admit/Observation/Transfer Diagnosis at time of Disposition: Migraine Qualifiers: Migraine type: unspecified Status migrainosus presence: without status migrainosus Intractability: not intractable Qualified Code(s): G43.909 - Migraine, unspecified, not intractable, without status migrainosus - Discharge Dispostion Disposition: ELOPED - Referrals Referrals: Chantel Soto MD [Primary Care Provider] - - Patient Instructions - Post Discharge Activity
== END 2017-07-24 01:30 | disposition left against medical advice (07) ==
LOC: JER 22:22
PROC: 3E0233Z Introduction of Anti-inflammatory into Muscle, Percutaneous Approach (ICD-10-PCS; principal; 2017-07-23)
PROC: 3E023GC Introduction of Other Therapeutic Substance into Muscle, Percutaneous Approach (ICD-10-PCS; 2017-07-23)
DX: G43.909 Migraine, unspecified, not intractable, without status migrainosus (principal)
CPT/HCPCS: 96372; 99281-25

== ENCOUNTER 2017-08-01 19:45 | Emergency (ER) | payer OTHER ==
[2017-08-01 20:02] VITALS: BP 131/68; PULSE 97; TEMP 98.1; BMI 35.5
--- NOTE | 2017-08-01 20:28 | PDOC ---
History of Present Illness - General Chief Complaint: Migraine Headache Stated Complaint: HEADACHE Time Seen by Provider: 08/01/17 20:23 - History of Present Illness Initial Comments: 36-year-old female presents for evaluation of headache. She states she suffers from migraines and takes Imitrex injections at home. Her headache started last night she gave herself an injection was mildly relieved and throughout the day today it started to come back. Her headache is frontal in nature exacerbated with motion and activity minimally relieved with rest without any radiation of symptoms. This is typical of her migraines that she usually gets. 08/01/17 20:26 Past History - Past Medical History Allergies/Adverse Reactions: Allergies Allergy/AdvReac Type Severity Reaction Status Date / Time No Known Allergies Allergy Verified 08/01/17 19:59 Home Medications: Ambulatory Orders Pantoprazole Sodium 40 mg PO DAILY 12/28/16 Simvastatin 20 mg PO HS 12/28/16 Cardiac Disorders: Yes (pericarditis) COPD: No DVT: No GI Disorders: Yes (GERD) Hypercholesterolemia: Yes - Immunization History Immunization Up to Date: Yes - Suicide/Smoking/Psychosocial Hx Smoking Status: No Smoking History: Never smoked Have you smoked in the past 12 months: No Number of Cigarettes Smoked Daily: 0 If you are a former smoker, when did you quit?: 13 Hx Alcohol Use: No Drug/Substance Use Hx: No Substance Use Type: None Review of Systems - Review of Systems Neurological: Yes: Headache All Other Systems: Reviewed and Negative *Physical Exam - Vital Signs Last Vital Signs Temp Pulse Resp BP Pulse Ox 98.1 F 97 H 18 131/68 100 08/01/17 20:00 08/01/17 20:00 08/01/17 20:00 08/01/17 20:00 08/01/17 20:00 - Physical Exam Comments: GENERAL: The patient is awake, alert, and fully oriented, in no acute distress. HEAD: Normal with no signs of trauma. EYES: Pupils equal, round and reactive to light, extraocular movements intact, sclera anicteric, conjunctiva clear. ENT: Ears normal, nares patent, oropharynx clear without exudates. Moist mucous membranes. NECK: Normal range of motion, supple without lymphadenopathy, JVD, or masses. LUNGS: Breath sounds equal, clear to auscultation bilaterally. No wheezes, and no crackles. HEART: Regular rate and rhythm, normal S1 and S2 without murmur, rub or gallop. ABDOMEN: Soft, nontender, normoactive bowel sounds. No guarding, no rebound. No masses. EXTREMITIES: Normal range of motion, no edema. No clubbing or cyanosis. No cords, erythema, or tenderness. NEUROLOGICAL: Cranial nerves II through XII grossly intact. Normal speech, normal gait. PSYCH: Normal mood, normal affect. SKIN: Warm, Dry, normal turgor, no rashes or lesions noted. 08/01/17 20:27 Medical Decision Making - Medical Decision Making She states her migraines are relieved when she comes to the emergency room with a shot of Toradol and Benadryl which I'm willing to give to her and reevaluate her symptoms. 08/01/17 20:28 08/01/17 21:25 re-Evaluation her symptoms have resolved *DC/Admit/Observation/Transfer Diagnosis at time of Disposition: Migraine - Discharge Dispostion Disposition: HOME Condition at time of disposition: Improved Decision to Admit order: No - Referrals Referrals: Chantel Soto MD [Primary Care Provider] - - Patient Instructions Printed Discharge Instructions: Migraine -- Adult, DI for Migraine Additional Instructions: Please follow-up with your neurologist in the next 1-2 days for further evaluation and treatment options return to the emergency room if your symptoms should return otherwise follow-up as advised. He may resume your migraine medication as directed. - Post Discharge Activity
[2017-08-01] MEDS ORDERED: KETOROLAC TROMETHAMINE 60 MG/2 ML VIAL IM ONE (20:51)
[2017-08-01] MEDS ORDERED: KETOROLAC TROMETHAMINE 60 MG/2 ML VIAL ONE (21:04)
== END 2017-08-01 21:27 | disposition home or self-care (01) ==
LOC: JERFT 19:45
PROC: 3E0233Z Introduction of Anti-inflammatory into Muscle, Percutaneous Approach (ICD-10-PCS; principal; 2017-08-01)
PROC: 3E023GC Introduction of Other Therapeutic Substance into Muscle, Percutaneous Approach (ICD-10-PCS; 2017-08-01)
DX: G43.909 Migraine, unspecified, not intractable, without status migrainosus (principal)
CPT/HCPCS: 84703; 96372; 99281-25

== ENCOUNTER 2017-08-24 17:58 | Emergency (ER) | payer OTHER ==
[2017-08-24 18:06] VITALS: TEMP 99.5; BMI 35.5
--- NOTE | 2017-08-24 18:20 | PDOC ---
History of Present Illness - General History Source: Patient Exam Limitations: No Limitations - History of Present Illness Initial Comments: 08/24/17 18:45 The patient is a 46 year old female with a significant PMH of GERD, pericarditis , hyperlipidemia, and migraines who presents to the emergency department with chest burning beginning approximately 2 days ago. She describes her chest burning as an intermittent sensation which is localized in the midsternal and epigastric regions. She reports taking TUMS, 150 mg of Zantac, and Pepcid to temporary relief. She states she has had a similar sensation intermittently in the past. She reports she used to take Pantoprazole but has not taken it in a while. The patient reports following with Dr. Kemp for Cardiology and reports a normal ECHO, stress test, and catheterization in the past. She notes she has an appointment with Dr. Kemp this coming Monday. The patient states she has had endoscopies done in the past and denies any history of H. pylori. The patient notes recent travel to [place]. She denies leg swelling. The patient denies chest pain, shortness of breath, headache and dizziness. Denies fever, chills, nausea, vomit, diarrhea and constipation. Denies dysuria, frequency, urgency and hematuria. Allergies: NKA Past surgical history: None reported. Social history: No reported cigarette, alcohol PCP: Dr. Soto Cardio: Dr. Kemp GI: Dr. Brito <Giovani Miller - Last Filed: 08/24/17 19:07> <Janny Meehan - Last Filed: 08/24/17 20:08> - General Chief Complaint: Chest Pain Stated Complaint: CHEST PAIN Time Seen by Provider: 08/24/17 18:14 Past History <Giovani Miller - Last Filed: 08/24/17 19:07> - Past Medical History Cardiac Disorders: Yes (pericarditis) COPD: No DVT: No GI Disorders: Yes (GERD) Hypercholesterolemia: Yes - Immunization History Immunization Up to Date: Yes - Suicide/Smoking/Psychosocial Hx Smoking Status: No Smoking History: Never smoked Have you smoked in the past 12 months: No Number of Cigarettes Smoked Daily: 0 If you are a former smoker, when did you quit?: 13 Hx Alcohol Use: No Drug/Substance Use Hx: No Substance Use Type: None <Janny Meehan - Last Filed: 08/24/17 20:08> - Past Medical History Allergies/Adverse Reactions: Allergies Allergy/AdvReac Type Severity Reaction Status Date / Time No Known Allergies Allergy Verified 08/10/17 18:40 Home Medications: Ambulatory Orders Simvastatin 40 mg PO HS 12/28/16 Ferrous Sulfate [Iron] 325 mg PO DAILY 08/24/17 Pantoprazole Sodium [Protonix -] 40 mg PO DAILY #14 tablet.ec 08/24/17 Sumatriptan Succinate [Imitrex Injection -] 6 mg SQ PRN 08/24/17 Review of Systems - Review of Systems Able to Perform ROS?: Yes Comments:: 08/24/17 18:45 GENERAL/CONSTITUTIONAL: No fever or chills. No weakness. HEAD, EYES, EARS, NOSE AND THROAT: No change in vision. No ear pain or discharge. No sore throat. GASTROINTESTINAL: No nausea, vomiting, diarrhea or constipation. GENITOURINARY: No dysuria, frequency, or change in urination. CARDIOVASCULAR: (+) Midsternal and epigastric burning. No shortness of breath. RESPIRATORY: No cough, wheezing, or hemoptysis. MUSCULOSKELETAL: No joint or muscle swelling or pain. No neck or back pain. SKIN: No rash NEUROLOGIC: No headache, vertigo, loss of consciousness, or change in strength/ sensation. ENDOCRINE: No increased thirst. No abnormal weight change. HEMATOLOGIC/LYMPHATIC: No anemia, easy bleeding, or history of blood clots. ALLERGIC/IMMUNOLOGIC: No hives or skin allergy. <Giovani Miller - Last Filed: 08/24/17 19:07> *Physical Exam - Vital Signs Last Vital Signs Temp Pulse Resp BP Pulse Ox 99.5 F 78 18 126/71 99 08/24/17 18:01 08/24/17 18:01 08/24/17 18:01 08/24/17 18:01 08/24/17 18:01 - Physical Exam Comments: 08/24/17 18:45 Constitutional: Awake, alert, oriented. No acute distress. Head: Normocephalic. Atraumatic Cardiovascular: (+) Anterior chest wall tenderness. Regular rate. Regular rhythm. S1, S2 regular. Distal pulses are 2+ and symmetric. Pulmonary/Chest: No evidence of respiratory distress. Clear to auscultation bilaterally No wheezing, rales or rhonchi. Abdominal: Soft and non-distended. There is no tenderness. No rebound, guarding or rigidity. No organomegaly. No palpable masses. Good bowel sounds. Back: No CVA tenderness. Musculoskeletal: No edema. No cyanosis. No clubbing. Full range of motion in all extremities. No calf tenderness. Radial/pedal pulses are intact and 2+ bilaterally Skin: Skin is warm and dry. No petechiae. No purpura. Neurological: Alert and oriented to person, place, and time. Cranial nerves II -XII are grossly intact. Normal speech. Strength is grossly symmetric. No sensory deficits. Psychiatric: Good eye contact. Normal interaction, affect and behavior. <Giovani Miller - Last Filed: 08/24/17 19:07> - Vital Signs Last Vital Signs Temp Pulse Resp BP Pulse Ox 99.5 F 78 18 126/71 99 08/24/17 18:01 08/24/17 18:01 08/24/17 18:01 08/24/17 18:01 08/24/17 18:01 <Janny Meehan - Last Filed: 08/24/17 20:08> Heart Score/ECG Review - ECG Intrepretation Comment:: 08/24/17 19:29 sinus at 65, nl axis, nl interval, no acute st/t wave findings <Janny Meehan - Last Filed: 08/24/17 20:08> ED Treatment Course - LABORATORY CBC & Chemistry Diagram: 08/24/17 18:45 08/24/17 18:45 <Giovani Miller - Last Filed: 08/24/17 19:07> - LABORATORY CBC & Chemistry Diagram: 08/24/17 18:45 08/24/17 18:45 <Janny Meehan - Last Filed: 08/24/17 20:08> Medical Decision Making - Medical Decision Making 08/24/17 19:29 46yo female with hx of gerd, hld with 3 days of burning chest pain -no other assoc symptoms GI lantin Cards [place] -has had negative cath, negative stress in last year -took pepcid, zantac, tums without relief -nontoxic in apperance -suspect gerd vs atypical cp -will however send trop - pain x 3 days -no acute ekg changes -will give gi cocktail and reassess -has appt with shay for Monday will need to schedule follow up with Dr. Brito as well 08/24/17 20:04 pt states feeling better has appt with martha for monday discussed diet changes - avoiding fried food, tomato based products pt now states pain started after eating spagetti cxr clear - ekg nonacute trop negative labs reviewed with the patient. stable for d/.c to home discussed BRAT diet, discussed follow up with Daryl answered all [email or web address]. <Janny Meehan - Last Filed: 08/24/17 20:08> *DC/Admit/Observation/Transfer - Attestations Scribe Attestion: 08/24/17 18:45 Documentation prepared by Giovani Miller, acting as medical office administrator for Janny Meehan DO. <Giovani Miller - Last Filed: 08/24/17 19:07> - Discharge Dispostion Decision to Admit order: No - Attestations Physician Attestion: 08/24/17 20:08 I, Dr. Janny Meehan DO, attest that this document has been prepared under my direction and personally reviewed by me in its entirety. I further attest, that it accurately reflects all work, treatment, procedures and medical decision -making performed by me. <Janny Meehan - Last Filed: 08/24/17 20:08> Diagnosis at time of Disposition: Atypical chest pain - Discharge Dispostion Disposition: HOME Condition at time of disposition: Stable - Prescriptions Prescriptions: Pantoprazole Sodium [Protonix -] 40 mg PO DAILY #14 tablet.ec - Referrals Referrals: Chantel Soto MD [Primary Care Provider] - Sanchez Kemp MD [Staff Physician] - Tello Brito MD [Staff Physician] - - Patient Instructions Printed Discharge Instructions: DI for Atypical Chest Pain Additional Instructions: Please keep your appointment on Monday with Dr. Kemp. Please make an appointment with Dr. Brito. Please follow up with your PMD. Please take all medications as prescribed. Please return to the ED with any further concerns or complaints. Please eat the BRAT diet (bananas, rice, apple sauce, and toast). Please stick to clear liquids for 24 hours then slowly advance your diet.
[2017-08-24] MEDS ORDERED: MAG HYDROX/AL HYDROX/SIMETH 30 ML UNIT-DOSE CUP PO ONE (18:27)
[2017-08-24] MEDS ORDERED: LIDOCAINE VISCOUS 2% ORAL/TOP 20 ML UNIT-DOSE CUP MM ONE (18:27)
[2017-08-24] MEDS ORDERED: MAG HYDROX/AL HYDROX/SIMETH 30 ML UNIT-DOSE CUP ONE (18:36)
[2017-08-24] MEDS ORDERED: LIDOCAINE VISCOUS 2% ORAL/TOP 20 ML UNIT-DOSE CUP ONE (18:36)
[2017-08-24 18:56] LABS: BASO % 0.7 % (0-2.0); HEMATOCRIT 36.1 % (32.4-45.2); HEMOGLOBIN 11.6 GM/dL (10.7-15.3); LYMPH % 44.2 % (8-40); MCH 26.8 pg (25.7-33.7); MCHC 32.2 g/dl (32.0-36.0); MEAN CELL VOLUME 83.2 fl (80-96); MEAN PLT VOLUME 8.1 fl (7.5-11.1); MONO % 6.9 % (3.8-10.2); NEUT % 47.2 % (42.8-82.8); PLATELET COUNT 290 K/MM3 (134-434); RBC 4.34 M/mm3 (3.60-5.2); RDW 18.6 % (11.6-15.6); WHITE BLOOD COUNT 8.3 K/mm3 (4.0-10.0)
[2017-08-24 19:19] LABS: ALBUMIN 3.5 g/dl (3.4-5.0); ANION GAP 7 (8-16); BILIRUBIN,TOTAL 0.3 mg/dL (0.2-1.0); BLOOD UREA NITROGEN 12 mg/dL (7-18); CALCIUM 8.6 mg/dL (8.5-10.1); CHLORIDE 105 mmol/L (98-107); CO2 28 mmol/L (21-32); CREATININE 0.8 mg/dL (0.55-1.02); GLUCOSE,RANDOM 84 mg/dL (74-106); LIPASE 176 U/L (73-393); POTASSIUM 3.7 mmol/L (3.5-5.1); SGOT/AST 16 U/L (15-37); SGPT/ALT 19 U/L (12-78); SODIUM 140 mmol/L (136-145); TOT PROT 7.5 g/dl (6.4-8.2)
[2017-08-24 19:21] LABS: ALK PHOS 77 U/L (45-117)
[2017-08-24 20:01] VITALS: BP 118/75; PULSE 64
--- NOTE | 2017-08-25 09:13 | EKG ---
Test Reason : Blood Pressure : / mmHG Vent. Rate : 065 BPM Atrial Rate : 065 BPM P-R Int : 180 ms QRS Dur : 082 ms QT Int : 406 ms P-R-T Axes : 054 048 057 degrees QTc Int : 422 ms NORMAL SINUS RHYTHM ST ELEVATION, CONSIDER EARLY REPOLARIZATION, PERICARDITIS, OR INJURY Confirmed by CAROLE ACE MD ([id number]) on 08/25/2017 9:13:34 AM Referred By: ER Confirmed By:CAROLE ACE MD
== END 2017-08-24 20:13 | disposition home or self-care (01) ==
LOC: JER 17:58
DX: R07.89 Other chest pain (principal); K21.9 Gastro-esophageal reflux disease without esophagitis; E78.5 Hyperlipidemia, unspecified; G43.909 Migraine, unspecified, not intractable, without status migrainosus
CPT/HCPCS: 36415; 71045-TC-FY; 80053; 82550; 83690; 83735; 84484; 84703; 85025; 93005; 93010; 99283-25

== ENCOUNTER 2017-09-11 08:28 | Emergency (ER) | payer OTHER ==
[2017-09-11 08:35] VITALS: BP 136/77; PULSE 71; TEMP 98.8; BMI 28.1
--- NOTE | 2017-09-11 08:42 | PDOC ---
History of Present Illness - General Chief Complaint: Pain Stated Complaint: MIGRAINES Time Seen by Provider: 09/11/17 08:37 History Source: Patient Exam Limitations: No Limitations - History of Present Illness Initial Comments: 09/11/17 08:38 46 yr female well known to ER frequent visits for chronic migraines. Pt states the heat and humidity is making the headache worse. Imitrex is not helping her headache. Pt requesting toradol and benadryl as this always works. Past History - Past Medical History Allergies/Adverse Reactions: Allergies Allergy/AdvReac Type Severity Reaction Status Date / Time No Known Allergies Allergy Verified 09/11/17 08:29 Home Medications: Ambulatory Orders Simvastatin 40 mg PO HS 12/28/16 Ferrous Sulfate [Iron] 325 mg PO DAILY 08/24/17 Pantoprazole Sodium [Protonix -] 40 mg PO DAILY #14 tablet.ec 08/24/17 Sumatriptan Succinate [Imitrex Injection -] 6 mg SQ PRN 08/24/17 Cardiac Disorders: Yes (pericarditis) COPD: No DVT: No GI Disorders: Yes (GERD) Hypercholesterolemia: Yes - Immunization History Immunization Up to Date: Yes - Suicide/Smoking/Psychosocial Hx Smoking Status: No Smoking History: Former smoker Have you smoked in the past 12 months: No Number of Cigarettes Smoked Daily: 0 If you are a former smoker, when did you quit?: 2002 Information on smoking cessation initiated: No Hx Alcohol Use: No Drug/Substance Use Hx: No Substance Use Type: None Review of Systems - Review of Systems Able to Perform ROS?: Yes Is the patient limited Cameroonian proficient: No Constitutional: No: Symptoms Reported HEENTM: No: Symptoms Reported Respiratory: No: Symptoms reported Cardiac (ROS): No: Symptoms Reported ABD/GI: No: Symptoms Reported : No: Symptoms Reported Musculoskeletal: No: Symptoms Reported Integumentary: No: Symptoms Reported Neurological: Yes: Symptoms reported *Physical Exam - Vital Signs Last Vital Signs Temp Pulse Resp BP Pulse Ox 98.8 F 71 16 136/77 99 09/11/17 08:29 09/11/17 08:29 09/11/17 08:29 09/11/17 08:29 09/11/17 08:29 - Physical Exam General Appearance: Yes: Nourished, Appropriately Dressed HEENT: positive: EOMI, JOSE JUAN, TMs Normal, Pharynx Normal Neck: positive: Supple. negative: Tender lateral, Tender midline Gastrointestinal/Abdominal: positive: Normal Bowel Sounds, Soft Lymphatic: negative: Adenopathy Musculoskeletal: positive: Normal Inspection Extremity: positive: Normal Capillary Refill, Normal Inspection, Normal Range of Motion Integumentary: positive: Normal Color, Dry, Warm Neurologic: positive: bread baker II-XII NML intact, Fully Oriented, Alert, Normal Mood/ Affect, Normal Response, Motor Strength 5/5 Medical Decision Making - Medical Decision Making 09/11/17 08:40 cc: chronic migraines, works over [employer], states had botox injection last week and gives herself imitrex injections as well pt denies fever, neg nausea or vomiting will r/o toradol and benadryl IM 09/11/17 08:52 *DC/Admit/Observation/Transfer Diagnosis at time of Disposition: Migraine Qualifiers: Migraine type: unspecified Status migrainosus presence: with status migrainosus Intractability: intractable Qualified Code(s): G43.911 - Migraine, unspecified, intractable, with status migrainosus - Discharge Dispostion Disposition: HOME Condition at time of disposition: Good - Referrals - Patient Instructions Printed Discharge Instructions: DI for Migraine Additional Instructions: drink pleanty of water follow with your neurologist as planned return if any worsening symptoms - Post Discharge Activity
[2017-09-11] MEDS ORDERED: KETOROLAC TROMETHAMINE 60 MG/2 ML VIAL IM ONE (09:10)
[2017-09-11] MEDS ORDERED: KETOROLAC TROMETHAMINE 60 MG/2 ML VIAL ONE (09:12)
== END 2017-09-11 09:21 | disposition home or self-care (01) ==
LOC: JERFT 08:28
PROC: 3E023GC Introduction of Other Therapeutic Substance into Muscle, Percutaneous Approach (ICD-10-PCS; principal; 2017-09-11)
PROC: 3E0233Z Introduction of Anti-inflammatory into Muscle, Percutaneous Approach (ICD-10-PCS; 2017-09-11)
DX: G43.911 Migraine, unspecified, intractable, with status migrainosus (principal); K21.9 Gastro-esophageal reflux disease without esophagitis; E78.00 Pure hypercholesterolemia, unspecified; Z86.79 Personal history of other diseases of the circulatory system; Z87.891 Personal history of nicotine dependence
CPT/HCPCS: 84703; 96372; 99281-25

== ENCOUNTER 2017-09-15 20:37 | Emergency (ER) | payer OTHER ==
--- NOTE | 2017-09-15 21:04 | PDOC ---
Rapid Medical Evaluation Time Seen by Provider: 09/15/17 21:01 Medical Evaluation: Allergies Allergy/AdvReac Type Severity Reaction Status Date / Time No Known Allergies Allergy Verified 09/11/17 08:29 09/15/17 21:01 I have performed a [id number] evaluation. The patient presents with a chief complaint:Frontal headache this mornin with photo and phonophobia. Usually gets migraines and tx with botox injections every 90 days. Next Botox injection on September 21, 2017 by her neurologist. Christopher Bae/Mitchell. Pt states she usually gets Toradol 60mg IM and Benadryl 50mg IM to cure the ramirez. Pt also takes imitrex at home but it doesn't work after it passes a certain point. Neg n/v/d, dizziness, lightheadedness Pertinent physical exam findings: NCAT, EOMI, Neg neck pain on palp, L/S CTAB I have ordered the followin The patient will proceed to the ED for further evaluation. Discharge Disposition - Referrals Referrals: Chantel Soto MD [Primary Care Provider] - - Patient Instructions - Post Discharge Activity
[2017-09-15 21:07] VITALS: BP 116/61; PULSE 69; TEMP 97.5; BMI 35.2
[2017-09-15] MEDS ORDERED: KETOROLAC TROMETHAMINE 60 MG/2 ML VIAL IM ONE (22:01)
--- NOTE | 2017-09-15 22:17 | PDOC ---
History of Present Illness - General Chief Complaint: Migraine Headache Stated Complaint: MIGRAINE HEADACHE Time Seen by Provider: 09/15/17 21:01 History Source: Patient Exam Limitations: No Limitations - History of Present Illness Initial Comments: 09/15/17 22:12 Best Contact: PCP: Dr. White/Mitchell Pmhx: Migraines Pshx: 2009/c section Allergies: NKDA FH:0 Social Hx: Cigarettes/ 0 Alcohol/ 0 Drugs/0 LMP:08/21/2017 47-year-old female presents to the ER complaining of frontal 6/10 throbbing nonradiating intermittent discomfort with mild photophobia/phonophobia but without nausea/vomiting, dizziness, lightheadedness, facial pain, neck pain/ stiffness, back pains, chest pain, shortness of breath, extremity numbness or tingling sensation. Patient states her symptoms are consistent with her chronic migraines. Patient states she usually gets Botox injections every 90 days for her migraines and takes Imitrex at home for breakthrough pain. Patient states she did not take her Imitrex at home early enough for her current migraine and since it passes a certain point, the only thing that will help her is Toradol and Benadryl IM. Patient states this is not one of her worst headaches. Patient states this is a mild headache. Patient denies exacerbating or alleviating factors at home. Past History - Past Medical History Allergies/Adverse Reactions: Allergies Allergy/AdvReac Type Severity Reaction Status Date / Time No Known Allergies Allergy Verified 09/11/17 08:29 Home Medications: Ambulatory Orders Simvastatin 40 mg PO HS 12/28/16 Ferrous Sulfate [Iron] 325 mg PO DAILY 08/24/17 Pantoprazole Sodium [Protonix -] 40 mg PO DAILY #14 tablet.ec 08/24/17 Sumatriptan Succinate [Imitrex Injection -] 6 mg SQ PRN 08/24/17 Cardiac Disorders: Yes (pericarditis) COPD: No DVT: No GI Disorders: Yes (GERD) Hypercholesterolemia: Yes Other medical history: migraines - Immunization History Immunization Up to Date: Yes - Suicide/Smoking/Psychosocial Hx Smoking Status: No Smoking History: Never smoked Have you smoked in the past 12 months: No Number of Cigarettes Smoked Daily: 0 If you are a former smoker, when did you quit?: 2002 Information on smoking cessation initiated: No Hx Alcohol Use: Yes ("socially") Drug/Substance Use Hx: No Substance Use Type: None Neuro Specific PMHX - Complaint Specific PMHX Glaucoma: No Herniated Disk: No Laminectomy: No Migraine: Yes Review of Systems - Review of Systems Able to Perform ROS?: Yes Comments:: 09/15/17 22:17 CONSTITUTIONAL: Absent: fever, chills, diaphoresis, generalized weakness, malaise, loss of appetite HEENT: Absent: rhinorrhea, nasal congestion, throat pain, throat swelling, difficulty swallowing, mouth swelling, ear pain, eye pain, visual Changes CARDIOVASCULAR: Absent: chest pain, loss of consciousness, palpitations, irregular heart rate, peripheral edema RESPIRATORY: Absent: cough, shortness of breath, dyspnea with exertion, orthopnea, wheezing, stridor, hemoptysis GASTROINTESTINAL: Absent: abdominal pain, abdominal distension, nausea, vomiting, diarrhea, constipation, melena, hematochezia GENITOURINARY: Absent: dysuria, frequency, urgency, hesitancy, hematuria, flank pain, genital pain MUSCULOSKELETAL: Absent: myalgia, arthralgia, joint swelling SKIN: Absent: rash, itching, pallor HEMATOLOGIC/IMMUNOLOGIC: Absent: easy bleeding, easy bruising, lymphadenopathy, frequent infections ENDOCRINE: Absent: unexplained weight gain, unexplained weight loss, heat intolerance, cold intolerance NEUROLOGIC: +Frontal ramirez Absent: focal weakness or paresthesias, dizziness, unsteady gait, seizure, mental status changes, bladder or bowel incontinence PSYCHIATRIC: Absent: anxiety, depression, suicidal or homicidal ideation, hallucinations. Is the patient limited Swedish proficient: No *Physical Exam - Vital Signs Last Vital Signs Temp Pulse Resp BP Pulse Ox 97.5 F L 69 20 116/61 100 09/15/17 21:02 09/15/17 21:02 09/15/17 21:02 09/15/17 21:02 09/15/17 21:02 - Physical Exam Comments: 09/15/17 22:17 GENERAL: Well developed, well nourished. Awake and alert. No acute distress. HEENT: Normocephalic, atraumatic. PERRLA, EOMI. No conjunctival pallor. Sclera are non- icteric. Moist mucous membranes. Oropharynx is clear. NECK: Supple. Full ROM. No JVD. Carotid pulses 2+ and symmetric, without bruits. No thyromegaly. No lymphadenopathy. CARDIOVASCULAR: Regular rate and rhythm. No murmurs, rubs, or gallops. Distal pulses are 2+ and symmetric. PULMONARY: No evidence of respiratory distress. Lungs clear to auscultation bilaterally. No wheezing, rales or rhonchi. ABDOMINAL: Soft. Non-tender. Non-distended. No rebound or guarding. No organomegaly. Normoactive bowel sounds. MUSCULOSKELETAL Normal range of motion at all joints. No bony deformities or tenderness. No CVA tenderness. EXTREMITIES: No cyanosis. No clubbing. No edema. No calf tenderness. SKIN: Warm and dry. Normal capillary refill. No rashes. No jaundice. NEUROLOGICAL: Alert, awake, appropriate. Cranial nerves 2-12 intact. No deficits to light touch and temperature in face, upper extremities and lower extremities. No motor deficits in the in face, upper extremities and lower extremities. Normoreflexic in the upper and lower extremities. Normal speech. Toes are down- going bilaterally. Gait is normal without ataxia. PSYCHIATRIC: Cooperative. Good eye contact. Appropriate mood and affect. *DC/Admit/Observation/Transfer Diagnosis at time of Disposition: Migraine Qualifiers: Migraine type: without aura Status migrainosus presence: without status migrainosus Intractability: not intractable Qualified Code(s): G43.009 - Migraine without aura, not intractable, without status migrainosus - Discharge Dispostion Disposition: HOME Condition at time of disposition: Stable Decision to Admit order: No - Referrals Referrals: Chantel Soto MD [Primary Care Provider] - - Patient Instructions Printed Discharge Instructions: DI for Migraine Additional Instructions: Rest Be sure to follow-up with your neurologist on September 21 as scheduled for your Botox injection Return back to the ER for severe/persistent or worsening symptoms - Post Discharge Activity
== END 2017-09-15 23:03 | disposition home or self-care (01) ==
LOC: JERFT 20:37
PROC: 3E0233Z Introduction of Anti-inflammatory into Muscle, Percutaneous Approach (ICD-10-PCS; principal; 2017-09-15)
PROC: 3E023GC Introduction of Other Therapeutic Substance into Muscle, Percutaneous Approach (ICD-10-PCS; 2017-09-15)
DX: G43.009 Migraine without aura, not intractable, without status migrainosus (principal)
CPT/HCPCS: 96372; 99281-25

== ENCOUNTER 2017-09-21 19:26 | Emergency (ER) | payer OTHER ==
[2017-09-21 19:41] VITALS: BP 146/85; PULSE 70; TEMP 98.8; BMI 34.4
[2017-09-21] MEDS ORDERED: KETOROLAC TROMETHAMINE 30 MG/1 ML VIAL IM ONE ×2 (19:41)
--- NOTE | 2017-09-21 19:43 | PDOC ---
Rapid Medical Evaluation Chief Complaint: Headache Time Seen by Provider: 09/21/17 19:39 Medical Evaluation: Allergies Allergy/AdvReac Type Severity Reaction Status Date / Time No Known Allergies Allergy Verified 09/11/17 08:29 09/21/17 19:39 c/o headacheafter botox shot (for migraines). seen by neurology today. history of migraines. + phonophobia PE: Patient alert ox3 A: migraines P: toradol, benadryl IM patient to fast track for further management of care. Discharge Disposition - Diagnosis Migraine Qualifiers: Migraine type: other Status migrainosus presence: without status migrainosus Intractability: not intractable Qualified Code(s): G43.809 - Other migraine, not intractable, without status migrainosus - Referrals - Patient Instructions - Post Discharge Activity
[2017-09-21] MEDS ORDERED: KETOROLAC TROMETHAMINE 60 MG/2 ML VIAL ONE (20:13)
--- NOTE | 2017-09-21 20:20 | PDOC ---
History of Present Illness - General Chief Complaint: Migraine Headache Stated Complaint: HEADACHE Time Seen by Provider: 09/21/17 19:39 History Source: Patient Exam Limitations: Clinical Condition - History of Present Illness Initial Comments: 09/21/17 20:21 Patient with history of migraine headaches presenting with complain of headache since this afternoon. Patient saw her neurologist today for Botox injection for her migraine and reported the time she gets a Botox injection she get headaches usually resolve wound Imitrex injection but helping now and again to neurologist was given a come to the emergency room for IM pain medication usually resolve her symptoms. Patient denies any other symptoms Past History - Past Medical History Allergies/Adverse Reactions: Allergies Allergy/AdvReac Type Severity Reaction Status Date / Time No Known Allergies Allergy Verified 09/21/17 19:41 Home Medications: Ambulatory Orders Simvastatin 40 mg PO HS 12/28/16 Ferrous Sulfate [Iron] 325 mg PO DAILY 08/24/17 Pantoprazole Sodium [Protonix -] 40 mg PO DAILY #14 tablet.ec 08/24/17 Sumatriptan Succinate [Imitrex Injection -] 6 mg SQ PRN 08/24/17 Cardiac Disorders: Yes (pericarditis) COPD: No DVT: No GI Disorders: Yes (GERD) Hypercholesterolemia: Yes - Immunization History Immunization Up to Date: Yes - Suicide/Smoking/Psychosocial Hx Smoking Status: No Smoking History: Never smoked Have you smoked in the past 12 months: No Number of Cigarettes Smoked Daily: 0 If you are a former smoker, when did you quit?: 2002 Hx Alcohol Use: Yes ("socially") Drug/Substance Use Hx: No Substance Use Type: None Review of Systems - Review of Systems Able to Perform ROS?: Yes Is the patient limited [place] proficient: No Constitutional: No: Chills, Diaphoresis, Fever, Loss of Appetite, Malaise, Night Sweats, Weakness, Weight Stable, Unintentional Wgt. Loss, Unexplained wgt Loss, Other HEENTM: No: Eye Pain, Blurred Vision, Tearing, Recent change in vision, Double Vision, Cataracts, Ear Pain, Ocular Prothesis, Ear Discharge, Nose Pain, Nose Congestion, Tinnitus, Nose Bleeding, Hearing Loss, Throat Pain, Throat Swelling , Mouth Pain, Dental Problems, Difficulty Swallowing, Mouth Swelling, Other Respiratory: No: Cough, Orthopnea, Shortness of Breath, SOB with Exertion, SOB at Rest, Stridor, Wheezing, Productive cough, Hemoptysis, Other Cardiac (ROS): No: Chest Pain, Edema, Irregular Heart Rate, Lightheadedness, Palpitations, Syncope, Chest Tightness, Other ABD/GI: No: Abdominal Distended, Abd. Pain w/ defecation, Blood Streaked Bowels , Constipated, Diarrhea, Difficulty Swallowing, Nausea, Poor Appetite, Poor Fluid Intake, Rectal Bleeding, Vomiting, Indigestion, Abdominal cramping, Tarry Stools, Other Musculoskeletal: No: Back Pain, Gout, Joint Pain, Joint Swelling, Muscle Pain, Muscle Weakness, Neck Pain, Joint Stiffness, Other Integumentary: No: Bruising, Change in Color, Change in Hair/Nails, Dryness, Erythema, Flushing, Lesions, Lumps, Pallor, Pruritus, Rash, Sweating, Other Neurological: Yes: See HPI, Headache All Other Systems: Reviewed and Negative *Physical Exam - Vital Signs Last Vital Signs Temp Pulse Resp BP Pulse Ox 98.8 F 70 18 146/85 98 09/21/17 19:39 09/21/17 19:39 09/21/17 19:39 09/21/17 19:39 09/21/17 19:39 - Physical Exam Comments: 09/21/17 20:22 GENERAL: Well developed, well nourished. Awake and alert. No acute distress. HEENT: Normocephalic, atraumatic. PERRLA, EOMI. No conjunctival pallor. Sclera are non- icteric. Moist mucous membranes. Oropharynx is clear. NECK: Supple. Full ROM. No JVD. Carotid pulses 2+ and symmetric, without bruits. No thyromegaly. No lymphadenopathy. CARDIOVASCULAR: Regular rate and rhythm. No murmurs, rubs, or gallops. Distal pulses are 2+ and symmetric. PULMONARY: No evidence of respiratory distress. Lungs clear to auscultation bilaterally. No wheezing, rales or rhonchi. ABDOMINAL: Soft. Non-tender. Non-distended. No rebound or guarding. No organomegaly. Normoactive bowel sounds. MUSCULOSKELETAL Normal range of motion at all joints. No bony deformities or tenderness. No CVA tenderness. EXTREMITIES: No cyanosis. No clubbing. No edema. No calf tenderness. SKIN: Warm and dry. Normal capillary refill. No rashes. No jaundice. NEUROLOGICAL: Alert, awake, appropriate. Cranial nerves 2-12 intact. No deficits to light touch and temperature in face, upper extremities and lower extremities. No motor deficits in the in face, upper extremities and lower extremities. Normoreflexic in the upper and lower extremities. Normal speech. Toes are down- going bilaterally. Gait is normal without ataxia. PSYCHIATRIC: Cooperative. Good eye contact. Appropriate mood and affect. General Appearance: Yes: Nourished, Appropriately Dressed. No: Apparent Distress ED Treatment Course - Medications Given in the ED: ED Medications Discontinued Medications Generic Name Dose Route Start Last Admin Trade Name Freq PRN Reason Stop Dose Admin Ketorolac Tromethamine 30 mg 09/21/17 19:41 09/21/17 20:12 Toradol Injection - IM 09/21/17 19:42 Not Given ONCE ONE Medical Decision Making - Medical Decision Making 09/21/17 20:18 Patient with history of migraine headaches presenting with complain of headache since this afternoon. Patient saw her neurologist today for Botox injection for her migraine and reported the time she gets a Botox injection she get headaches. Toradol 60 mg IM and Benadryl 25 mg IM given for migraine. Patient with improvement of migraine after 20 minutes the patient stable for home discharge to continue home medication with neurology follow-up *DC/Admit/Observation/Transfer Diagnosis at time of Disposition: Migraine Qualifiers: Migraine type: other Status migrainosus presence: without status migrainosus Intractability: not intractable Qualified Code(s): G43.809 - Other migraine, not intractable, without status migrainosus - Discharge Dispostion Disposition: HOME Condition at time of disposition: Good Decision to Admit order: No - Referrals Referrals: Chantel Soto MD [Primary Care Provider] - - Patient Instructions Printed Discharge Instructions: Migraine Headaches (Alternative Therapy), Migraine -- Adult - Post Discharge Activity
== END 2017-09-21 20:36 | disposition home or self-care (01) ==
LOC: JERFT 19:26
PROC: 3E023GC Introduction of Other Therapeutic Substance into Muscle, Percutaneous Approach (ICD-10-PCS; principal; 2017-09-21)
PROC: 3E0233Z Introduction of Anti-inflammatory into Muscle, Percutaneous Approach (ICD-10-PCS; 2017-09-21)
DX: G43.809 Other migraine, not intractable, without status migrainosus (principal); E78.00 Pure hypercholesterolemia, unspecified; K21.9 Gastro-esophageal reflux disease without esophagitis
CPT/HCPCS: 99281-25

== ENCOUNTER 2017-10-02 17:30 | Emergency (ER) | payer OTHER ==
[2017-10-02 17:38] VITALS: BP 127/72; PULSE 86; TEMP 98.8; BMI 34.4
[2017-10-02] MEDS ORDERED: KETOROLAC TROMETHAMINE 60 MG/2 ML VIAL IM ONE (18:22)
--- NOTE | 2017-10-02 18:25 | PDOC ---
History of Present Illness - General Chief Complaint: Migraine Headache Stated Complaint: MIGRAINE - History of Present Illness Initial Comments: 47-year-old female with a history of migraines presents for evaluation of a migraine typical of her prior headaches. Headache started this morning while at a 10/02/17 18:24 Past History - Past Medical History Allergies/Adverse Reactions: Allergies Allergy/AdvReac Type Severity Reaction Status Date / Time No Known Allergies Allergy Verified 09/21/17 19:41 Home Medications: Ambulatory Orders Simvastatin 40 mg PO HS 12/28/16 Ferrous Sulfate [Iron] 325 mg PO DAILY 08/24/17 Pantoprazole Sodium [Protonix -] 40 mg PO DAILY #14 tablet.ec 08/24/17 Sumatriptan Succinate [Imitrex Injection -] 6 mg SQ PRN 08/24/17 Cardiac Disorders: Yes (pericarditis) COPD: No DVT: No GI Disorders: Yes (GERD) Hypercholesterolemia: Yes - Immunization History Immunization Up to Date: Yes - Suicide/Smoking/Psychosocial Hx Smoking Status: No Smoking History: Never smoked Have you smoked in the past 12 months: No Number of Cigarettes Smoked Daily: 0 If you are a former smoker, when did you quit?: 2002 Hx Alcohol Use: Yes ("socially") Drug/Substance Use Hx: No Substance Use Type: None Review of Systems - Review of Systems Neurological: Yes: Headache All Other Systems: Reviewed and Negative *Physical Exam - Vital Signs Last Vital Signs Temp Pulse Resp BP Pulse Ox 98.8 F 86 18 127/72 98 10/02/17 17:32 10/02/17 17:32 10/02/17 17:32 10/02/17 17:32 10/02/17 17:32 - Physical Exam Comments: 10/02/17 18:24 HEAD: NC/AT EYES: Conjuntiva clear Ears: Canals and TM's normal NOSE: No d/c THROAT: Moist mucous membrances, oral pharanx clear, uvula midline NECK: Supple without adenopathy CARDIAC: S1 S2 LUNGS: CTA Full and Equal breath sounds ABDOMEN: Soft NT ND MS: Full ROM in all joints without edema NEUROLOGIC: No gross sensory or motor deficits, NVID SKIN: Normal color and temperature no lesions or rashes Medical Decision Making - Medical Decision Making I will give her usual medicines of Toradol and Benadryl IM and reassess her 10/02/17 18:25 10/02/17 19:12 Symptoms resolved *DC/Admit/Observation/Transfer Diagnosis at time of Disposition: Migraine - Discharge Dispostion Disposition: HOME Condition at time of disposition: Improved Decision to Admit order: No - Referrals Referrals: Chantel Soto MD [Primary Care Provider] - - Patient Instructions Printed Discharge Instructions: DI for Migraine, Migraine -- Adult Additional Instructions: Follow-up with your neurologist as scheduled and return to the emergency room should her symptoms come back. - Post Discharge Activity
== END 2017-10-02 20:05 | disposition home or self-care (01) ==
LOC: JERFT 17:30
PROC: 3E023GC Introduction of Other Therapeutic Substance into Muscle, Percutaneous Approach (ICD-10-PCS; principal; 2017-10-02)
PROC: 3E0233Z Introduction of Anti-inflammatory into Muscle, Percutaneous Approach (ICD-10-PCS; 2017-10-02)
DX: G43.909 Migraine, unspecified, not intractable, without status migrainosus (principal); E78.00 Pure hypercholesterolemia, unspecified; I31.9 Disease of pericardium, unspecified
CPT/HCPCS: 99281-25

== ENCOUNTER 2017-10-05 17:39 | Emergency (ER) | payer OTHER ==
[2017-10-05 17:43] VITALS: BP 120/74; PULSE 80; TEMP 99.1; BMI 35.2
--- NOTE | 2017-10-05 17:43 | PDOC ---
Rapid Medical Evaluation Time Seen by Provider: 10/05/17 17:41 Medical Evaluation: Allergies Allergy/AdvReac Type Severity Reaction Status Date / Time No Known Allergies Allergy Verified 09/21/17 19:41 I have performed a brief in-person evaluation of this patient. The patient presents with a chief complaint of: left buttock pain, radiating to left leg Pertinent physical exam findings: none I have ordered the following: hcg The patient will proceed to the ED for further evaluation. Discharge Disposition - Diagnosis Sciatica - Referrals - Patient Instructions - Post Discharge Activity
[2017-10-05] MEDS ORDERED: predniSONE 20 MG TABLET (UD) PO SCH (18:15)
--- NOTE | 2017-10-05 18:16 | PDOC ---
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 She denies injury or trauma. She denies history of sciatica. Patient has been attempting nonsteroidals with minimal success. Patient denies history of IV drug use, denies fever, denies loss of bowel/ bladder control or urinary retention. Patient denies previous injury or surgeries to her lumbosacral spine. Patient denies any relieving factors however states that movement exacerbates her discomfort. 10/05/17 18:11 Past History - Travel Traveled outside of the country in the last 30 days: No Close contact w/someone who was outside of country & ill: No - Past Medical History Allergies/Adverse Reactions: Allergies Allergy/AdvReac Type Severity Reaction Status Date / Time No Known Allergies Allergy Verified 10/05/17 17:43 Home Medications: Ambulatory Orders Simvastatin 40 mg PO HS 12/28/16 Ferrous Sulfate [Iron] 325 mg PO DAILY 08/24/17 Pantoprazole Sodium [Protonix -] 40 mg PO DAILY #14 tablet.ec 08/24/17 Sumatriptan Succinate [Imitrex Injection -] 6 mg SQ PRN 08/24/17 Methylprednisolone [Medrol Dose Obed] 4 mg PO ASDIR #21 tablet 10/05/17 Cardiac Disorders: Yes (pericarditis) COPD: No DVT: No GI Disorders: Yes (GERD) Hypercholesterolemia: Yes - Immunization History Immunization Up to Date: Yes - Suicide/Smoking/Psychosocial Hx Smoking Status: No Smoking History: Never smoked Have you smoked in the past 12 months: No Number of Cigarettes Smoked Daily: 0 If you are a former smoker, when did you quit?: 2002 Information on smoking cessation initiated: No Hx Alcohol Use: No Drug/Substance Use Hx: No Substance Use Type: None Review of Systems - Review of Systems Able to Perform ROS?: Yes All Other Systems: Reviewed and Negative *Physical Exam - Vital Signs Last Vital Signs Temp Pulse Resp BP Pulse Ox 99.1 F 80 20 120/74 98 10/05/17 17:40 10/05/17 17:40 10/05/17 17:40 10/05/17 17:40 10/05/17 17:40 - Physical Exam Comments: Constitutional: VS stated, pt appears in no apparent distress; obese, ambulated to examination room, steady gait noted. Skin: Warm and dry. Intact, no lesions or excoriations. Head: Normocephalic; atraumatic Eyes: conjunctiva pink without injection or discharge. Throat: Oropharynx with pink and moist mucosa. Lungs: Bilateral breath sounds clear upon auscultation. No adventitious breath sounds. Heart: Regular rate and rhythm, S1/S2 auscultated. No murmurs, rubs, or gallops. No visible pulsations, heaves, or lifts on precordium. Abdomen: Soft and non-tender. Bowel sounds present in all 4 quadrants, no hepatosplenomegaly, No bruits auscultated. No guarding or rebound. No masses or visible pulsations present. No suprapubic tenderness. No CVAT. No bruits. Musculoskeletal: Normal curves of cervical, thoracic, and lumbar spine. Full ROM of cervical and lumbar spine. Proximal joints normal; neck, arms, hips, knees, and ankles with full range of active and passive motion. Muscles appear symmetric. Sensation intact medially and laterally. No saddle anesthesia. DTRs+ 2. No tenderness on palpation of spine. I can duplicate the pain by pressing on the left gluteus bayron. + left straight leg test. 5/5 strength in upper extremities and lower extremity groups. Neurologic: Awake, alert. Conversation fluent. Psychiatric: Appropriate affect. 10/05/17 18:12 Medical Decision Making - Medical Decision Making Patient has no red flag signs. I can duplicate the pain by pressing on the left gluteus bayron. I feel this is more indicative of sciatica. Patient refused Toradol however accepted prednisone 60 mg by mouth in the department. Patient will be discharged on a steroid taper and follow-up with her PCP. 10/05/17 18:15 *DC/Admit/Observation/Transfer Diagnosis at time of Disposition: Sciatica - Discharge Dispostion Disposition: HOME Condition at time of disposition: Stable Decision to Admit order: No - Prescriptions Prescriptions: Methylprednisolone [Medrol Dose Obed] 4 mg PO ASDIR #21 tablet - Referrals Referrals: Chantel Soto MD [Primary Care Provider] - - Patient Instructions Printed Discharge Instructions: DI for Sciatica - Post Discharge Activity Forms/Work/School Notes: Back to Work
== END 2017-10-05 18:30 | disposition home or self-care (01) ==
LOC: JERFT 17:39
DX: M54.32 Sciatica, left side (principal); K21.9 Gastro-esophageal reflux disease without esophagitis; E78.00 Pure hypercholesterolemia, unspecified
CPT/HCPCS: 84703; 99281-25

== ENCOUNTER 2017-10-21 14:37 | Emergency (ER) | payer OTHER ==
[2017-10-21 14:41] VITALS: BP 122/63; PULSE 92; TEMP 98.4; BMI 36.0
[2017-10-21] MEDS ORDERED: KETOROLAC TROMETHAMINE 60 MG/2 ML VIAL IM ONE (15:04)
--- NOTE | 2017-10-21 15:10 | PDOC ---
History of Present Illness - General Chief Complaint: Back Pain Stated Complaint: BACK PAIN - History of Present Illness Initial Comments: 47-year-old female presents for evaluation of lower back pain. She states she recently had an MRI which showed a herniated disc. She has a history of migraines. She is requesting a shot of Toradol. She complains of lower back pain with left posterior lateral leg radiculopathy. No saddle paraesthesia or loss of b/b 10/21/17 15:08 10/21/17 15:09 Past History - Past Medical History Allergies/Adverse Reactions: Allergies Allergy/AdvReac Type Severity Reaction Status Date / Time No Known Allergies Allergy Verified 10/21/17 14:41 Home Medications: Ambulatory Orders Simvastatin 40 mg PO HS 12/28/16 Ferrous Sulfate [Iron] 325 mg PO DAILY 08/24/17 Pantoprazole Sodium [Protonix -] 40 mg PO DAILY #14 tablet.ec 08/24/17 Sumatriptan Succinate [Imitrex Injection -] 6 mg SQ PRN 08/24/17 Methylprednisolone [Medrol Dose Obed] 4 mg PO ASDIR #21 tablet 10/05/17 Methocarbamol [Robaxin -] 1,500 mg PO Q8H PRN #20 tablet 10/08/17 Naproxen [Naprosyn -] 500 mg PO TID #30 tablet 10/08/17 Cardiac Disorders: Yes (pericarditis) COPD: No DVT: No GI Disorders: Yes (GERD) Hypercholesterolemia: Yes - Immunization History Immunization Up to Date: Yes - Suicide/Smoking/Psychosocial Hx Smoking Status: No Smoking History: Never smoked Have you smoked in the past 12 months: No Number of Cigarettes Smoked Daily: 0 If you are a former smoker, when did you quit?: 2002 Hx Alcohol Use: No Drug/Substance Use Hx: No Substance Use Type: None Review of Systems - Review of Systems Musculoskeletal: Yes: See HPI, Back Pain *Physical Exam - Vital Signs Last Vital Signs Temp Pulse Resp BP Pulse Ox 98.4 F 92 H 16 122/63 98 10/21/17 14:39 10/21/17 14:39 10/21/17 14:39 10/21/17 14:39 10/21/17 14:39 - Physical Exam Comments: Lumbar spine skin color and temperature are normal range of motion is slightly decreased. There is mild left-sided paralumbar musculature tenderness and spasm. 5 out of 5 strength in bilateral lowers remedies without any gross sensorimotor deficits. Positive straight leg raise test on the left negative on the right. She has no gross sensorimotor deficits she is neurovascularly intact. Thighs and calves are soft and nontender. 10/21/17 15:09 *DC/Admit/Observation/Transfer Diagnosis at time of Disposition: Lumbar radicular pain - Discharge Dispostion Disposition: HOME Condition at time of disposition: Stable Decision to Admit order: No - Referrals Referrals: Chantel Soto MD [Primary Care Provider] - David Garrido MD [Staff Physician] - - Patient Instructions Additional Instructions: Return to the emergency room should symptoms worsen or go unresolved. Please follow up with spine surgery in 1-2 days for further evaluation and treatment options. Continue to take her home medication as directed. - Post Discharge Activity
[2017-10-21] MEDS ORDERED: KETOROLAC TROMETHAMINE 60 MG/2 ML VIAL ONE (15:41)
== END 2017-10-21 15:51 | disposition home or self-care (01) ==
LOC: JERFT 14:37
PROC: 3E0233Z Introduction of Anti-inflammatory into Muscle, Percutaneous Approach (ICD-10-PCS; principal; 2017-10-21)
DX: M54.16 Radiculopathy, lumbar region (principal); E78.00 Pure hypercholesterolemia, unspecified; Z87.19 Personal history of other diseases of the digestive system; Z86.79 Personal history of other diseases of the circulatory system
CPT/HCPCS: 96372; 99281-25

== ENCOUNTER 2017-11-12 13:07 | Emergency (ER) | payer OTHER ==
[2017-11-12 13:11] VITALS: BP 122/74; PULSE 100; TEMP 99.2; BMI 36.0
[2017-11-12] MEDS ORDERED: KETOROLAC TROMETHAMINE 60 MG/2 ML VIAL IM ONE (13:32)
--- NOTE | 2017-11-12 13:35 | PDOC ---
History of Present Illness - General Chief Complaint: Headache Stated Complaint: MIGRAINE HEADACHE Time Seen by Provider: 11/12/17 13:20 History Source: Patient Exam Limitations: Clinical Condition - History of Present Illness Initial Comments: 11/12/17 13:48 Patient with history of migraine headaches presenting with complain of 2 day history of severe headache with no other symptoms. Patient with multiple visits presenting with headaches which resolved with Toradol and Benadryl IM injection. Patient is being follow-up with neurology and has a follow-up appointment in 2 days. Denies nausea, vomiting, dizziness. Denies any from or injury to head Timing/Duration: reports: constant Past History - Past Medical History Allergies/Adverse Reactions: Allergies Allergy/AdvReac Type Severity Reaction Status Date / Time No Known Allergies Allergy Verified 11/12/17 13:11 Home Medications: Ambulatory Orders Simvastatin 40 mg PO HS 12/28/16 Ferrous Sulfate [Iron] 325 mg PO DAILY 08/24/17 Pantoprazole Sodium [Protonix -] 40 mg PO DAILY #14 tablet.ec 08/24/17 Sumatriptan Succinate [Imitrex Injection -] 6 mg SQ PRN 08/24/17 Methylprednisolone [Medrol Dose Obed] 4 mg PO ASDIR #21 tablet 10/05/17 Naproxen [Naprosyn -] 500 mg PO TID #30 tablet 10/08/17 Cardiac Disorders: Yes (pericarditis) COPD: No DVT: No GI Disorders: Yes (GERD) Hypercholesterolemia: Yes - Immunization History Immunization Up to Date: Yes - Suicide/Smoking/Psychosocial Hx Smoking Status: No Smoking History: Never smoked Have you smoked in the past 12 months: No Number of Cigarettes Smoked Daily: 0 If you are a former smoker, when did you quit?: 2002 Hx Alcohol Use: No Drug/Substance Use Hx: No Substance Use Type: None Neuro Specific PMHX - Complaint Specific PMHX Glaucoma: No Herniated Disk: No Laminectomy: No Migraine: Yes Review of Systems - Review of Systems Able to Perform ROS?: Yes Is the patient limited Citizen Of [place] proficient: No Constitutional: No: Chills, Fever, Weakness HEENTM: No: Symptoms Reported Respiratory: No: Cough, Orthopnea, Shortness of Breath, SOB with Exertion, SOB at Rest, Stridor, Wheezing, Productive cough, Hemoptysis, Other Cardiac (ROS): No: Chest Pain, Edema, Irregular Heart Rate, Lightheadedness, Palpitations, Syncope, Chest Tightness, Other ABD/GI: No: Abdominal Distended, Abd. Pain w/ defecation, Blood Streaked Bowels , Constipated, Diarrhea, Difficulty Swallowing, Nausea, Poor Appetite, Poor Fluid Intake, Rectal Bleeding, Vomiting, Indigestion, Abdominal cramping, Tarry Stools, Other : No: Symptoms Reported Musculoskeletal: No: Symptoms Reported Neurological: Yes: Headache. No: Dizziness All Other Systems: Reviewed and Negative *Physical Exam - Vital Signs Last Vital Signs Temp Pulse Resp BP Pulse Ox 99.2 F 100 H 20 122/74 99 11/12/17 13:08 11/12/17 13:08 11/12/17 13:08 11/12/17 13:08 11/12/17 13:08 - Physical Exam Comments: 11/12/17 13:52 GENERAL: Well developed, well nourished. Awake and alert. No acute distress. HEENT: Normocephalic, atraumatic. PERRLA, EOMI. No conjunctival pallor. Sclera are non- icteric. Moist mucous membranes. Oropharynx is clear. NECK: Supple. Full ROM. CARDIOVASCULAR: Regular rate and rhythm. No murmurs, rubs, or gallops. Distal pulses are 2+ and symmetric. PULMONARY: No evidence of respiratory distress. Lungs clear to auscultation bilaterally. No wheezing, rales or rhonchi. ABDOMINAL: Soft. Non-tender. Non-distended. No rebound or guarding. No organomegaly. Normoactive bowel sounds. MUSCULOSKELETAL Normal range of motion at all joints. EXTREMITIES: No cyanosis. No clubbing. No edema. No calf tenderness. SKIN: Warm and dry. Normal capillary refill. No rashes. No jaundice. NEUROLOGICAL: Alert, awake, appropriate. Cranial nerves 2-12 intact. Gait is normal without ataxia. PSYCHIATRIC: Cooperative. Good eye contact. Appropriate mood and affect. General Appearance: Yes: Nourished, Appropriately Dressed. No: Apparent Distress Medical Decision Making - Medical Decision Making 11/12/17 13:53 Patient with history of chronic migraines present with complain of severe headaches with no other symptoms. Clinical exam unremarkable with neuro the normal. Toradol 60 mg and Benadryl to 50 mg IM given for migraine. Patient has follow-up with neurology in 2 days *DC/Admit/Observation/Transfer Diagnosis at time of Disposition: Migraine Qualifiers: Migraine type: chronic without aura Status migrainosus presence: without status migrainosus Intractability: not intractable Qualified Code(s): G43.709 - Chronic migraine without aura, not intractable, without status migrainosus - Discharge Dispostion Disposition: HOME Condition at time of disposition: Stable Decision to Admit order: No - Referrals Referrals: Chantel Soto MD [Primary Care Provider] - - Patient Instructions Printed Discharge Instructions: Migraine Headaches (Alternative Therapy), DI for Migraine Additional Instructions: take home my the medication as prescribed. Follow-up with neurology as scheduled in 2 days - Post Discharge Activity
[2017-11-12] MEDS ORDERED: KETOROLAC TROMETHAMINE 60 MG/2 ML VIAL ONE (13:36)
== END 2017-11-12 13:48 | disposition home or self-care (01) ==
LOC: JERFT 13:07
PROC: 3E023GC Introduction of Other Therapeutic Substance into Muscle, Percutaneous Approach (ICD-10-PCS; principal; 2017-11-12)
PROC: 3E0333Z Introduction of Anti-inflammatory into Peripheral Vein, Percutaneous Approach (ICD-10-PCS; 2017-11-12)
DX: G43.709 Chronic migraine without aura, not intractable, without status migrainosus (principal)
CPT/HCPCS: 96372; 99281-25

== ENCOUNTER 2017-12-07 10:05 | Emergency (ER) | payer OTHER ==
[2017-12-07 10:12] VITALS: BP 126/72; PULSE 75; TEMP 98.6; BMI 35.5
[2017-12-07] MEDS ORDERED: KETOROLAC TROMETHAMINE 30 MG/1 ML VIAL IM ONE (10:48)
[2017-12-07] MEDS ORDERED: KETOROLAC TROMETHAMINE 30 MG/1 ML VIAL ONE (10:51)
--- NOTE | 2017-12-07 10:51 | PDOC ---
History of Present Illness - General Chief Complaint: Migraine Headache Stated Complaint: MIGRAINE HEADACHE Time Seen by Provider: 12/07/17 10:43 History Source: Patient Exam Limitations: No Limitations - History of Present Illness Initial Comments: 12/07/17 10:49 47 yr female with chronic migraine worse after working the overnight shift. pt gets relief with IM toradol 30 and benadryl 25mg. pt denies no abd pain , headache with photophobia similair to her typical migraine. 12/07/17 18:29 Past History - Past Medical History Allergies/Adverse Reactions: Allergies Allergy/AdvReac Type Severity Reaction Status Date / Time No Known Allergies Allergy Verified 12/07/17 10:09 Home Medications: Ambulatory Orders NK [No Known Home Medication] 12/07/17 Cardiac Disorders: Yes (pericarditis) COPD: No DVT: No GI Disorders: Yes (GERD) Hypercholesterolemia: Yes - Immunization History Immunization Up to Date: Yes - Suicide/Smoking/Psychosocial Hx Smoking Status: No Smoking History: Never smoked Have you smoked in the past 12 months: No Number of Cigarettes Smoked Daily: 0 If you are a former smoker, when did you quit?: 2002 Hx Alcohol Use: No Drug/Substance Use Hx: No Substance Use Type: None Neuro Specific PMHX - Complaint Specific PMHX Glaucoma: No Herniated Disk: No Laminectomy: No Migraine: Yes Review of Systems - Review of Systems Able to Perform ROS?: Yes Is the patient limited Belarusian proficient: No Constitutional: No: Symptoms Reported HEENTM: No: Symptoms Reported Respiratory: No: Symptoms reported Cardiac (ROS): No: Symptoms Reported ABD/GI: No: Symptoms Reported : No: Symptoms Reported *Physical Exam - Vital Signs Last Vital Signs Temp Pulse Resp BP Pulse Ox 98.6 F 75 18 126/72 100 12/07/17 10:09 12/07/17 10:09 12/07/17 10:09 12/07/17 10:09 12/07/17 10:09 - Physical Exam General Appearance: Yes: Nourished, Appropriately Dressed HEENT: positive: EOMI, JOSE JUAN Neck: positive: Supple. negative: Tender Respiratory/Chest: positive: Lungs Clear, Normal Breath Sounds Cardiovascular: positive: Regular Rhythm, Regular Rate Musculoskeletal: positive: Normal Inspection Extremity: positive: Normal Capillary Refill, Normal Inspection, Normal Range of Motion Integumentary: positive: Normal Color, Dry, Warm Neurologic: positive: Fully Oriented, Alert, Normal Mood/Affect, Normal Response , Motor Strength 5/5, Finger to Nose (intact). negative: Numbness, Sensory Deficit Medical Decision Making - Medical Decision Making 12/07/17 18:30 cc: chronic migraine asking for toradol and benadryl for relief pt states this is a typical migraine neg nvd, pos photophobia headache worse after working overnight shift steady gait *DC/Admit/Observation/Transfer Diagnosis at time of Disposition: Status migrainosus without intractable migraine Qualifiers: Migraine type: without aura Qualified Code(s): G43.001 - Migraine without aura , not intractable, with status migrainosus - Discharge Dispostion Disposition: HOME Condition at time of disposition: Improved - Referrals Referrals: Chantel Soto MD [Primary Care Provider] - - Patient Instructions Printed Discharge Instructions: DI for Migraine Additional Instructions: follow with your neurologist to create a plan for your constant migraine headaches please follow with your primary doctor - Post Discharge Activity
== END 2017-12-07 11:16 | disposition home or self-care (01) ==
LOC: JERFT 10:05
PROC: 3E0233Z Introduction of Anti-inflammatory into Muscle, Percutaneous Approach (ICD-10-PCS; principal; 2017-12-07)
PROC: 3E023GC Introduction of Other Therapeutic Substance into Muscle, Percutaneous Approach (ICD-10-PCS; 2017-12-07)
DX: G43.001 Migraine without aura, not intractable, with status migrainosus (principal); Z87.891 Personal history of nicotine dependence; K21.9 Gastro-esophageal reflux disease without esophagitis
CPT/HCPCS: 99281-25

== ENCOUNTER 2017-12-17 07:07 | Emergency (ER) | payer OTHER ==
[2017-12-17 07:22] VITALS: BMI 36.0
[2017-12-17] MEDS ORDERED: diphenhydrAMINE HCL 25 MG CAPSULE (FP) PO ONE ×2 (08:02→08:34)
[2017-12-17] MEDS ORDERED: KETOROLAC TROMETHAMINE 30 MG/1 ML VIAL IM ONE (08:02)
--- NOTE | 2017-12-17 08:02 | PDOC ---
History of Present Illness - General Chief Complaint: Migraine Headache Stated Complaint: MIGRAINE HEADACHE Time Seen by Provider: 12/17/17 07:51 History Source: Patient - History of Present Illness Initial Comments: 12/17/17 08:06 The patient is a 47 year old female with a PMH of migraines and HLD who presents to the ED c/o 2 day of headache. Headache started yesterday afternoon while at home and is global, pounding, c/w with her previous migraines. No visual changes, photophobia. Cyclobenzaprine which she takes daily on for her headaches did not resolve the pain. Follows with Dr. Chacon ([facility]) for headaches. Last evaluated 4 days previous at which time she recieved a "nerve marlin" shot. States a combination of Toradal and Benadryl always relieves her headaches when she comes to the ED. Notes h/o multiple CT scans and MRIs without any known concerning findings. Patient denies chest pain, shortness of breath, abdominal pain, nausea/vomiting , dysuria/hematuria. NKDA Surgical: C/S Social: denies toxic habits PMD: Dr. Soto Past History - Past Medical History Allergies/Adverse Reactions: Allergies Allergy/AdvReac Type Severity Reaction Status Date / Time No Known Allergies Allergy Verified 12/17/17 07:14 Home Medications: Ambulatory Orders NK [No Known Home Medication] 12/07/17 Cardiac Disorders: Yes (pericarditis) COPD: No DVT: No GI Disorders: Yes (GERD) Hypercholesterolemia: Yes - Immunization History Immunization Up to Date: Yes - Suicide/Smoking/Psychosocial Hx Smoking Status: No Smoking History: Never smoked Have you smoked in the past 12 months: No Number of Cigarettes Smoked Daily: 0 If you are a former smoker, when did you quit?: 2002 Hx Alcohol Use: No Drug/Substance Use Hx: No Substance Use Type: None Review of Systems - Review of Systems Constitutional: No: Chills, Fever HEENTM: No: Blurred Vision, Recent change in vision, Double Vision Respiratory: No: Cough, Shortness of Breath Cardiac (ROS): No: Chest Pain, Lightheadedness, Palpitations, Syncope ABD/GI: No: Constipated, Diarrhea, Nausea, Vomiting *Physical Exam - Vital Signs Last Vital Signs Temp Pulse Resp BP Pulse Ox 98.6 F 74 18 120/60 97 12/17/17 07:15 12/17/17 07:15 12/17/17 07:15 12/17/17 07:15 12/17/17 07:15 - Physical Exam General Appearance: Yes: Nourished, Appropriately Dressed HEENT: positive: EOMI, Normal Voice, Hearing Grossly Normal Neck: positive: Trachea midline, Supple Respiratory/Chest: positive: Lungs Clear, Normal Breath Sounds Cardiovascular: positive: S1, S2 Gastrointestinal/Abdominal: positive: Normal Bowel Sounds, Soft. negative: Distended, Guarding, Rebound, Tenderness Extremity: positive: Normal Capillary Refill, Normal Inspection Integumentary: positive: Normal Color, Dry, Warm Neurologic: positive: Fully Oriented, Alert, Responsive. negative: Confused, Disoriented Medical Decision Making - Medical Decision Making 12/17/17 08:11 47 year old female with headache similar in quality to chronic migraines.. No neurologic deficit on PE. VS stable. Will give Toradol + Benadryl as patient notes this cocktail has resolved her migraines previously. Reassess. 12/17/17 09:30 Pain resolved. Patient watching television on her Iphone. Requesting discharge. Ambulatory, improved, tolerating PO intake. Will discharge home with return precautions and PMD follow-up. I discussed the physical exam findings, ancillary test results and final diagnoses with the patient. I answered all of the patient's questions. The patient was satisfied with the care received and felt comfortable with the discharge plan and treatment plan. The patient will return to the Emergency Department with any new, persistent or worsening symptoms. *DC/Admit/Observation/Transfer Diagnosis at time of Disposition: Headache - Discharge Dispostion Disposition: HOME Condition at time of disposition: Good Decision to Admit order: No - Referrals Referrals: Chantel Soto MD [Primary Care Provider] - - Patient Instructions Printed Discharge Instructions: Migraine -- Adult Additional Instructions: You were evaluated today for your migraine. At this time you are safe for discharge. Follow-up with your neurologist and primary care doctor within the next 3 days. Return to the ED for any new/worsening/concerning symptoms. - Post Discharge Activity
[2017-12-17] MEDS ORDERED: KETOROLAC TROMETHAMINE 30 MG/1 ML VIAL ONE (08:35)
--- NOTE | 2017-12-17 09:32 | PDOC ---
Attending Attestation - Resident Resident Name: Amanda Loco - ED Attending Attestation I have performed the following: I have examined & evaluated the patient, The case was reviewed & discussed with the resident, I agree w/resident's findings & plan - HPI HPI: 12/17/17 09:33 \ 47 year old female with a PMH of migraines and HLD who presents to the ED c/o 2 day of headache, typical of her headaches. f/u neurologist at [facility]. - Physicial Exam PE: 12/17/17 09:33 agree with resident physical exam. NAD, well appearing, moving all extrem. no focal neuro deficits, ambulatory. speech clear. - Medical Decision Making 12/17/17 09:34 47-year-old female with history of headaches, worse 2 days. Patient has recurrent headaches and does get injections per her neurologist. Vital signs are normal, patient is well-appearing, no focal neurologic deficits. She is comfortable in chair and using her cell phone and also requesting to go off for smoke. She was given dose of Toradol and Benadryl with relief of her headaches. Instructions on [id number] medication use and follow up with her neurologist for headache management. Return precautions discussed, patient agrees with impression and plan as discussed.
[2017-12-17 09:52] VITALS: BP 118/74; PULSE 67; TEMP 98.7
== END 2017-12-17 09:45 | disposition home or self-care (01) ==
LOC: JER 07:07
PROC: 3E0333Z Introduction of Anti-inflammatory into Peripheral Vein, Percutaneous Approach (ICD-10-PCS; principal; 2017-12-17)
PROC: 3E033GC Introduction of Other Therapeutic Substance into Peripheral Vein, Percutaneous Approach (ICD-10-PCS; 2017-12-17)
DX: G43.909 Migraine, unspecified, not intractable, without status migrainosus (principal)
CPT/HCPCS: 96374; 96375; 99282-25

== ENCOUNTER 2018-01-09 14:56 | Emergency (ER) | payer OTHER ==
--- NOTE | 2018-01-09 15:16 | PDOC ---
Rapid Medical Evaluation Time Seen by Provider: 01/09/18 15:14 Medical Evaluation: Allergies Allergy/AdvReac Type Severity Reaction Status Date / Time No Known Allergies Allergy Verified 12/17/17 07:14 I have performed a brief in-person evaluation of this patient. The patient presents with a chief complaint of: Migraine headache; here often for same complaint. Wants toradol Pertinent physical exam findings: none I have ordered the following: nothing The patient will proceed to the ED for further evaluation. Discharge Disposition - Diagnosis Headache - Referrals Referrals: Chantel Soto MD [Primary Care Provider] - - Patient Instructions - Post Discharge Activity
[2018-01-09 15:21] VITALS: BP 124/69; PULSE 93; TEMP 98.2; BMI 35.2
[2018-01-09] MEDS ORDERED: KETOROLAC TROMETHAMINE 60 MG/2 ML VIAL IM ONE (16:38)
[2018-01-09] MEDS ORDERED: KETOROLAC TROMETHAMINE 60 MG/2 ML VIAL ONE (16:40)
--- NOTE | 2018-01-09 16:46 | PDOC ---
History of Present Illness - General Chief Complaint: Headache Stated Complaint: HEADACHE Time Seen by Provider: 01/09/18 15:14 - History of Present Illness Initial Comments: 01/09/18 16:41 39-year-old female without comorbidities presents for evaluation of headache. She states her headache started this morning, this is typical of the usual migraines she gets unrelieved by her muscle relaxer which at times helps her she comes to the emergency room for further treatment and evaluations. She requests Toradol and Benadryl IM Past History - Past Medical History Allergies/Adverse Reactions: Allergies Allergy/AdvReac Type Severity Reaction Status Date / Time No Known Allergies Allergy Verified 01/09/18 15:16 Home Medications: Ambulatory Orders NK [No Known Home Medication] 12/07/17 Cardiac Disorders: Yes (pericarditis) COPD: No DVT: No GI Disorders: Yes (GERD) Hypercholesterolemia: Yes - Immunization History Immunization Up to Date: Yes - Suicide/Smoking/Psychosocial Hx Smoking Status: No Smoking History: Never smoked Have you smoked in the past 12 months: No Number of Cigarettes Smoked Daily: 0 If you are a former smoker, when did you quit?: 2002 Hx Alcohol Use: No Drug/Substance Use Hx: No Substance Use Type: None Review of Systems - Review of Systems Neurological: Yes: Headache *Physical Exam - Vital Signs Last Vital Signs Temp Pulse Resp BP Pulse Ox 98.2 F 93 H 15 124/69 100 01/09/18 15:16 01/09/18 15:16 01/09/18 15:16 01/09/18 15:16 01/09/18 15:16 - Physical Exam Comments: 01/09/18 16:44 HEAD: NC/AT EYES: Conjuntiva clear MS: Full ROM in all joints without edema NEUROLOGIC: No gross sensory or motor deficits, NVID SKIN: Normal color and temperature no lesions or rashes *DC/Admit/Observation/Transfer Diagnosis at time of Disposition: Headache - Discharge Dispostion Disposition: HOME Condition at time of disposition: Improved Decision to Admit order: No - Referrals Referrals: Chantel Soto MD [Primary Care Provider] - - Patient Instructions Printed Discharge Instructions: Migraine -- Adult Additional Instructions: Return to the emergency room should symptoms worsen or go unresolved, follow-up with your primary care doctor for further evaluation and treatment options one to 2 days - Post Discharge Activity
== END 2018-01-09 17:17 | disposition home or self-care (01) ==
LOC: JERFT 14:56 → JER 14:56 → JERFT 17:17
PROC: 3E023GC Introduction of Other Therapeutic Substance into Muscle, Percutaneous Approach (ICD-10-PCS; principal; 2018-01-09)
PROC: 3E0233Z Introduction of Anti-inflammatory into Muscle, Percutaneous Approach (ICD-10-PCS; 2018-01-09)
DX: R51 Headache (principal)
CPT/HCPCS: 96372; 99281-25

== ENCOUNTER 2018-02-10 21:14 | Emergency (ER) | payer OTHER ==
[2018-02-10 21:31] VITALS: BP 136/79; PULSE 95; TEMP 100.1; BMI 32.7
--- NOTE | 2018-02-10 21:59 | PDOC ---
History of Present Illness - General Chief Complaint: Headache Stated Complaint: MIGRAINE Time Seen by Provider: 02/10/18 21:59 History Source: Patient - History of Present Illness Initial Comments: 02/10/18 22:05 47-year-old female with history of migraines complaining of 3 day history of headaches, nasal congestion, cough. Denies neck pain, rash, visual disturbance, photophobia. Patient reports that the cough has triggered her migraine headache. Reports muscle relaxant at home is not helping. Denies weakness/nausea, vomiting, chest pain, urinary symptoms. Patient to this ER for must multiple visits for migraines. 02/10/18 22:06 Past History - Past Medical History Allergies/Adverse Reactions: Allergies Allergy/AdvReac Type Severity Reaction Status Date / Time No Known Allergies Allergy Verified 02/10/18 21:28 Home Medications: Ambulatory Orders Amoxicillin/Potassium Clav [Augmentin 875-125 Tablet] 1 each PO BID #20 tablet 02/10/18 Fluticasone Prop 0.05% Nasal [Flonase -] 1 - 2 spray NS BID #1 spray.pump Cardiac Disorders: Yes (pericarditis) COPD: No DVT: No GI Disorders: Yes (GERD) Hypercholesterolemia: Yes - Immunization History Immunization Up to Date: Yes - Suicide/Smoking/Psychosocial Hx Smoking Status: No Smoking History: Never smoked Have you smoked in the past 12 months: No Number of Cigarettes Smoked Daily: 0 If you are a former smoker, when did you quit?: 2002 Information on smoking cessation initiated: No Hx Alcohol Use: No Drug/Substance Use Hx: No Substance Use Type: None Neuro Specific PMHX - Complaint Specific PMHX Glaucoma: No Herniated Disk: No Laminectomy: No Migraine: Yes Review of Systems - Review of Systems Able to Perform ROS?: Yes Is the patient limited Cape Verdean proficient: No Constitutional: No: Symptoms Reported, See HPI, Chills, Diaphoresis, Fever, Loss of Appetite, Malaise, Night Sweats, Weakness, Weight Stable, Unintentional Wgt. Loss, Unexplained wgt Loss, Other HEENTM: Yes: Nose Congestion, Throat Pain Respiratory: Yes: Cough Neurological: Yes: Headache *Physical Exam - Vital Signs Last Vital Signs Temp Pulse Resp BP Pulse Ox 100.1 F H 95 H 18 136/79 99 02/10/18 21:24 02/10/18 21:24 02/10/18 21:24 02/10/18 21:24 02/10/18 21:24 - Physical Exam General Appearance: Yes: Appropriately Dressed HEENT: positive: Normal Voice, Sinus Tenderness (bilateral), Other (no nuchal rigidity, b/l maxially sinus) Respiratory/Chest: positive: Lungs Clear, Normal Breath Sounds Cardiovascular: positive: Regular Rate Extremity: positive: Normal Capillary Refill, Normal Inspection, Normal Range of Motion Integumentary: positive: Normal Color, Dry, Warm Neurologic: positive: Fully Oriented, Alert Moderate Sedation - Procedure Monitoring Vital Signs: Procedure Monitoring Vital Signs Temperature 100.1 F H 02/10/18 21:24 Pulse Rate 95 H 02/10/18 21:24 Respiratory Rate 18 02/10/18 21:24 Blood Pressure 136/79 02/10/18 21:24 O2 Sat by Pulse Oximetry (%) 99 02/10/18 21:24 Progress Note - Progress Note Progress Note: A: sinusitis; headache P: toradol/ benadryl supportive care *DC/Admit/Observation/Transfer Diagnosis at time of Disposition: Sinusitis, acute Qualifiers: Sinusitis location: maxillary Recurrence: non-recurrent Qualified Code(s): J01.00 - Acute maxillary sinusitis, unspecified - Discharge Dispostion Disposition: HOME - Prescriptions Prescriptions: Amoxicillin/Potassium Clav [Augmentin 875-125 Tablet] 1 each PO BID #20 tablet Fluticasone Prop 0.05% Nasal [Flonase -] 1 - 2 spray NS BID #1 spray.pump - Referrals Referrals: Chantel Soto MD [Primary Care Provider] - - Patient Instructions Printed Discharge Instructions: DI for Migraine Additional Instructions: drink plenty of fluids take augmentin as prescribed follow up with your doctor and neurologist as soon as possible. Additional Instructions: * Please call your personal physician to report your Emergency Department visit and to report your progress, if any. * If there is no improvement in symptoms in 2 days call your physician. * Return to the Emergency Department for any worsening symptoms. - Post Discharge Activity
[2018-02-10] MEDS ORDERED: ACETAMINOPHEN 325 MG TABLET (FP) PO ONE (22:04)
[2018-02-10] MEDS ORDERED: KETOROLAC TROMETHAMINE 60 MG/2 ML VIAL IM ONE (22:04)
[2018-02-10] MEDS ORDERED: ACETAMINOPHEN 325 MG TABLET (FP) ONE (22:06)
[2018-02-10] MEDS ORDERED: KETOROLAC TROMETHAMINE 60 MG/2 ML VIAL ONE (22:06)
== END 2018-02-10 22:38 | disposition home or self-care (01) ==
LOC: JER 21:14 → JERFT 21:14
PROC: 3E023GC Introduction of Other Therapeutic Substance into Muscle, Percutaneous Approach (ICD-10-PCS; principal; 2018-02-10)
PROC: 3E0333Z Introduction of Anti-inflammatory into Peripheral Vein, Percutaneous Approach (ICD-10-PCS; 2018-02-10)
DX: J01.00 Acute maxillary sinusitis, unspecified (principal)
CPT/HCPCS: 99281-25

== ENCOUNTER 2018-03-07 08:45 | Emergency (ER) | payer OTHER ==
[2018-03-07 08:50] VITALS: BP 108/57; PULSE 89; TEMP 98.4; BMI 39.1
[2018-03-07] MEDS ORDERED: KETOROLAC TROMETHAMINE 60 MG/2 ML VIAL IM ONE (09:24)
[2018-03-07] MEDS ORDERED: KETOROLAC TROMETHAMINE 60 MG/2 ML VIAL ONE (09:28)
--- NOTE | 2018-03-07 09:29 | PDOC ---
History of Present Illness - General Chief Complaint: Headache Stated Complaint: MIGRAINE Time Seen by Provider: 03/07/18 09:09 History Source: Patient Exam Limitations: Clinical Condition - History of Present Illness Initial Comments: 03/07/18 09:24 Patient with history of migraines pain followed by neurology and receiving Botox ejections present with complaint of migraine exacerbation since overnight. Patient reported she took her Imitrex medication which improved her migraine but still persists. Patient reported when she gets severe migraines and usually reported improves with Toradol and Benadryl IM injection. Patient denies any other symptoms. Patient denies dizziness, blurry vision, nausea or vomiting. Timing/Duration: 24 hours Past History - Past Medical History Allergies/Adverse Reactions: Allergies Allergy/AdvReac Type Severity Reaction Status Date / Time No Known Allergies Allergy Verified 03/07/18 08:49 Home Medications: Ambulatory Orders Botulinum Toxin A [Botox (Nf)] 100 units IM ASDIR 03/07/18 Cardiac Disorders: Yes (pericarditis) COPD: No DVT: No GI Disorders: Yes (GERD) Hypercholesterolemia: Yes Other medical history: migranes - Immunization History Immunization Up to Date: Yes - Suicide/Smoking/Psychosocial Hx Smoking Status: No Smoking History: Never smoked Have you smoked in the past 12 months: No Number of Cigarettes Smoked Daily: 0 If you are a former smoker, when did you quit?: 2002 Information on smoking cessation initiated: No Hx Alcohol Use: No Drug/Substance Use Hx: No Substance Use Type: None Review of Systems - Review of Systems Able to Perform ROS?: Yes Is the patient limited Uzbek proficient: No Constitutional: No: Chills, Fever, Weakness HEENTM: No: Symptoms Reported, See HPI, Eye Pain, Blurred Vision, Tearing, Recent change in vision, Double Vision, Cataracts, Ear Pain, Ocular Prothesis, Ear Discharge, Nose Pain, Nose Congestion, Tinnitus, Nose Bleeding, Hearing Loss , Throat Pain, Throat Swelling, Mouth Pain, Dental Problems, Difficulty Swallowing, Mouth Swelling, Other Respiratory: No: Symptoms reported, See HPI, Cough, Orthopnea, Shortness of Breath, SOB with Exertion, SOB at Rest, Stridor, Wheezing, Productive cough, Hemoptysis, Other Cardiac (ROS): No: Symptoms Reported, See HPI, Chest Pain, Edema, Irregular Heart Rate, Lightheadedness, Palpitations, Syncope, Chest Tightness, Other ABD/GI: No: Nausea, Vomiting Neurological: Yes: Headache. No: Numbness, Paresthesia, Seizure, Tremors, Weakness, Unsteady Gait, Ataxia, Dizziness All Other Systems: Reviewed and Negative *Physical Exam - Vital Signs Last Vital Signs Temp Pulse Resp BP Pulse Ox 98.4 F 89 18 108/57 L 98 03/07/18 08:47 03/07/18 08:47 03/07/18 08:47 03/07/18 08:47 03/07/18 08:47 - Physical Exam Comments: 03/07/18 09:28 GENERAL: Well developed, well nourished. Awake and alert. No acute distress. HEENT: Normocephalic, atraumatic. PERRLA, EOMI. No conjunctival pallor. Sclera are non- icteric. Moist mucous membranes. Oropharynx is clear. NECK: Supple. Full ROM. No JVD. Carotid pulses 2+ and symmetric, without bruits. No thyromegaly. No lymphadenopathy. CARDIOVASCULAR: Regular rate and rhythm. No murmurs, rubs, or gallops. Distal pulses are 2+ and symmetric. PULMONARY: No evidence of respiratory distress. Lungs clear to auscultation bilaterally. No wheezing, rales or rhonchi. ABDOMINAL: Soft. Non-tender. Non-distended. No rebound or guarding. No organomegaly. Normoactive bowel sounds. MUSCULOSKELETAL Normal range of motion at all joints. SKIN: Warm and dry. Normal capillary refill. No rashes. No jaundice. NEUROLOGICAL: Alert, awake, appropriate. Cranial nerves 2-12 intact. Normal speech. Toes are down-going bilaterally. Gait is normal without ataxia.normal tandem walking PSYCHIATRIC: Cooperative. Good eye contact. Appropriate mood and affect. General Appearance: Yes: Nourished, Appropriately Dressed. No: Apparent Distress Moderate Sedation - Procedure Monitoring Vital Signs: Procedure Monitoring Vital Signs Temperature 98.4 F 03/07/18 08:47 Pulse Rate 89 03/07/18 08:47 Respiratory Rate 18 03/07/18 08:47 Blood Pressure 108/57 L 03/07/18 08:47 O2 Sat by Pulse Oximetry (%) 98 03/07/18 08:47 Medical Decision Making - Medical Decision Making 03/07/18 09:29 Patient with history of migraines pain followed by neurology and receiving Botox ejections present with complaint of migraine exacerbation since overnight. Patient reported she took her Imitrex medication which improved her migraine but still persists Clinical exam unremarkable with normal neuro exam. Toradol 60 mg IM and Benadryl 50 mg IM ordered for migraine. Reassess after 20 minutes. 03/07/18 09:43 Patient reported feeling much better with Toradol and Benadryl. Patient stable for discharge to take home mildly medication and follow-up patient neurologist. *DC/Admit/Observation/Transfer Diagnosis at time of Disposition: Migraine Qualifiers: Migraine type: without aura Status migrainosus presence: without status migrainosus Intractability: not intractable Qualified Code(s): G43.009 - Migraine without aura, not intractable, without status migrainosus - Discharge Dispostion Disposition: HOME Condition at time of disposition: Stable Decision to Admit order: No - Referrals Referrals: Chantel Soto MD [Primary Care Provider] - - Patient Instructions Printed Discharge Instructions: Migraine Headaches (Alternative Therapy) Additional Instructions: Take home medical medication as prescribed. Follow-up referred neurology. - Post Discharge Activity
== END 2018-03-07 09:50 | disposition home or self-care (01) ==
LOC: JERFT 08:45
PROC: 3E0233Z Introduction of Anti-inflammatory into Muscle, Percutaneous Approach (ICD-10-PCS; principal; 2018-03-07)
PROC: 3E023GC Introduction of Other Therapeutic Substance into Muscle, Percutaneous Approach (ICD-10-PCS; 2018-03-07)
DX: G43.009 Migraine without aura, not intractable, without status migrainosus (principal); E78.00 Pure hypercholesterolemia, unspecified; K21.9 Gastro-esophageal reflux disease without esophagitis; Z86.79 Personal history of other diseases of the circulatory system
CPT/HCPCS: 99281-25

== ENCOUNTER 2018-03-24 08:00 | Emergency (ER) | payer OTHER ==
[2018-03-24 08:13] VITALS: BP 122/58; PULSE 97; TEMP 99.9; BMI 36.0
--- NOTE | 2018-03-24 09:14 | PDOC ---
History of Present Illness - General Chief Complaint: Cold Symptoms Stated Complaint: FLU LIKE SYMPTOMS Time Seen by Provider: 03/24/18 08:54 History Source: Patient Exam Limitations: No Limitations - History of Present Illness Initial Comments: 03/24/18 09:08 47 year old female with medical history of migraine and high cholesterol and no surgical history presents with reports of flu like symptoms since . Patient reports productive coughing with yellowish phlegm, fever and bodyaches. 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 Timing/Duration: reports: week Severity: reports: mild Possible Cause: Yes: no prior episodes Modifying Factors: improves with: other Associated Symptoms: reports: cough, fever/chills Aspirin Received prior to arrival: Yes: no aspirin today ASA Contraindications(Core Measure): No: Allergy Beta Margaret Contraindications(Core Measure): Yes: Not Prescribed Beta Margaret Given by EMS(Core Measure): No Beta Margaret Taken at Home(Core Measure): No Beta Margaret Not Indicated at this Time(Core Measure): No Past History - Travel Traveled outside of the country in the last 30 days: No - Past Medical History Allergies/Adverse Reactions: Allergies Allergy/AdvReac Type Severity Reaction Status Date / Time No Known Allergies Allergy Verified 03/07/18 08:49 Home Medications: Ambulatory Orders Atorvastatin 40 mg PO DAILY 03/24/18 Oseltamivir Phosphate [Tamiflu -] 75 mg PO BID #10 capsule 03/24/18 Cardiac Disorders: Yes (pericarditis) COPD: No DVT: No GI Disorders: Yes (GERD) Hypercholesterolemia: Yes - Immunization History Immunization Up to Date: Yes - Suicide/Smoking/Psychosocial Hx Smoking Status: No Smoking History: Never smoked Have you smoked in the past 12 months: No Number of Cigarettes Smoked Daily: 0 If you are a former smoker, when did you quit?: 2002 Hx Alcohol Use: No Drug/Substance Use Hx: No Substance Use Type: None Respiratory Specific PMHX - Complaint Specific PMHX Angina: No Bronchitis: No Pneumonia: No Pulmonary Embolus: No TB (Tuberculosis): No Review of Systems - Review of Systems Able to Perform ROS?: Yes Is the patient limited Serbian proficient: No Constitutional: Yes: Fever, Malaise. No: Chills Respiratory: Yes: Cough, Shortness of Breath. No: Wheezing Cardiac (ROS): Yes: Chest Pain ABD/GI: No: Abdominal Distended, Nausea, Poor Appetite Integumentary: No: Bruising, Erythema Neurological: No: Numbness, Tingling *Physical Exam - Vital Signs Last Vital Signs Temp Pulse Resp BP Pulse Ox 99.9 F H 97 H 17 122/58 L 97 03/24/18 08:08 03/24/18 08:08 03/24/18 08:08 03/24/18 08:08 03/24/18 08:08 - Physical Exam General Appearance: Yes: Nourished, Appropriately Dressed. No: Apparent Distress HEENT: positive: JOSE JUAN, TMs Normal, Pharynx Normal Neck: positive: Supple. negative: Lymphadenopathy (R) Respiratory/Chest: positive: Lungs Clear, Normal Breath Sounds. negative: Respiratory Distress Cardiovascular: positive: Regular Rhythm, Regular Rate Extremity: positive: Normal Capillary Refill Neurologic: positive: senior program planner II-XII NML intact, Alert, Normal Mood/Affect. negative: Normal Response, Motor Strength 5/5 Moderate Sedation - Procedure Monitoring Vital Signs: Procedure Monitoring Vital Signs Temperature 99.9 F H 03/24/18 08:08 Pulse Rate 97 H 03/24/18 08:08 Respiratory Rate 17 03/24/18 08:08 Blood Pressure 122/58 L 03/24/18 08:08 O2 Sat by Pulse Oximetry (%) 97 03/24/18 08:08 Medical Decision Making - Medical Decision Making 03/24/18 09:16 47 year old female with medical history of migraine and high cholesterol and no surgical history presents with reports of flu like symptoms since . Plan flu test chest xray 03/24/18 10:17 influenza A + chest xray negative D/c Rx: tamiflu *DC/Admit/Observation/Transfer Diagnosis at time of Disposition: Influenza A - Discharge Dispostion Disposition: HOME Condition at time of disposition: Good Decision to Admit order: No - Prescriptions Prescriptions: Oseltamivir Phosphate [Tamiflu -] 75 mg PO BID #10 capsule - Referrals Referrals: Chantel Soto MD [Primary Care Provider] - - Patient Instructions Printed Discharge Instructions: How to Avoid a Cold or Flu, Influenza Additional Instructions: Please take medication until completed Drink plenty of fluids Rest - Post Discharge Activity Forms/Work/School Notes: Back to Work
== END 2018-03-24 10:40 | disposition home or self-care (01) ==
LOC: JERFT 08:00 → JER 08:00 → JERFT 10:40
DX: J09.X2 Influenza due to identified novel influenza A virus with other respiratory manifestations (principal); E78.00 Pure hypercholesterolemia, unspecified; G43.909 Migraine, unspecified, not intractable, without status migrainosus
CPT/HCPCS: 71045-TC-FY; 84703; 87804; 99281-25

== ENCOUNTER 2018-04-13 11:43 | Emergency (ER) | payer OTHER ==
[2018-04-13 11:58] VITALS: BP 136/76; PULSE 100; TEMP 98.4; BMI 36.0
[2018-04-13] MEDS ORDERED: KETOROLAC TROMETHAMINE 30 MG/1 ML VIAL IM ONE (12:29)
[2018-04-13] MEDS ORDERED: KETOROLAC TROMETHAMINE 30 MG/1 ML VIAL ONE (12:33)
--- NOTE | 2018-04-13 12:33 | PDOC ---
History of Present Illness - General Chief Complaint: Back Pain Stated Complaint: BACK PAIN Time Seen by Provider: 04/13/18 11:59 History Source: Patient, Old Records Exam Limitations: No Limitations - History of Present Illness Initial Comments: 04/13/18 12:30 CHIEF COMPLAINT: Lower back pain HISTORY OF PRESENT ILLNESS: This is a 47-year-old woman history of lower back pain, migraines presents emergency department for evaluation of acute on chronic lower back pain. Patient reports the pain is been present for the past 3 days for which she has been taking muscle relaxers and Aleve which has been minimally effective for her pain. She saw her primary doctor the other day and received a shot of Toradol with improvement in the back pain. Patient is made an appointment with a spinal surgeon at [facility] which she will see next week and is currently requesting a dose of Toradol the hold off the pain until she can see her doctor. Patient denies any numbness or tingling in the lower extremities, incontinence of bowel or bladder, urinary retention, saddle anesthesia, foot drop. She denies any history of IV drug use or cancer. REVIEW OF SYSTEMS: GENERAL: Afebrile, denies any weakness RESPIRATORY: No cough, wheezing, or hemoptysis. CARDIAC: No chest pain or shortness of breath MUSCULOSKELETAL: Pain to generalized lower back. No point tenderness. Pain worse on left than right. SKIN : No erythema, no bruising, no deformity. GI/: Denies any abdominal pain, no urinary difficulty, incontinence or urinary retention. RECTAL: Denies any difficulty this A.m. NEUROLOGICAL: Denies any numbness or tingling. No neurosensory deficits. PHYSICAL EXAM: GENERAL: The patient is awake, alert, and fully oriented, in no acute distress. RESPIRATORY: Lungs clear bilaterally, no rhonchi wheezes or crackles CARDIAC: S1-S2 audible, no murmur rub or gallop MUSCULOSKELETAL: Pain to generalized lower back, nonradiating, no tingling or sensory deficit. Less than 2 second cap refill, +2 pedal pulses. No spinal point tenderness. Normal reflexive and no deficits to sensation or strength. Able to perform straight leg raises. No palpable muscle spasms. GI/: Abdomen soft, nontender, nondistended. No rebound tenderness. No masses palpable. RECTAL: Deferred as patient with no neurological findings. SKIN: Warm, Dry, normal turgor, no erythema, no edema no bruising. Past History - Past Medical History Allergies/Adverse Reactions: Allergies Allergy/AdvReac Type Severity Reaction Status Date / Time No Known Allergies Allergy Verified 04/13/18 11:57 Home Medications: Ambulatory Orders Atorvastatin 40 mg PO DAILY 03/24/18 Cardiac Disorders: Yes (pericarditis) COPD: No DVT: No GI Disorders: Yes (GERD) Hypercholesterolemia: Yes - Immunization History Immunization Up to Date: Yes - Suicide/Smoking/Psychosocial Hx Smoking Status: No Smoking History: Unknown if ever smoked Have you smoked in the past 12 months: No Number of Cigarettes Smoked Daily: 0 If you are a former smoker, when did you quit?: 2002 Hx Alcohol Use: No Drug/Substance Use Hx: No Substance Use Type: None *Physical Exam - Vital Signs Last Vital Signs Temp Pulse Resp BP Pulse Ox 98.4 F 100 H 18 136/76 98 04/13/18 11:57 04/13/18 11:57 04/13/18 11:57 04/13/18 11:57 04/13/18 11:57 Moderate Sedation - Procedure Monitoring Vital Signs: Procedure Monitoring Vital Signs Temperature 98.4 F 04/13/18 11:57 Pulse Rate 100 H 04/13/18 11:57 Respiratory Rate 18 04/13/18 11:57 Blood Pressure 136/76 04/13/18 11:57 O2 Sat by Pulse Oximetry (%) 98 04/13/18 11:57 Medical Decision Making - Medical Decision Making 04/13/18 12:32 A/P: 47-year-old woman with acute on chronic lower back pain Toradol 30 millions IM now Discharge home *DC/Admit/Observation/Transfer Diagnosis at time of Disposition: Lumbar radicular pain - Discharge Dispostion Disposition: HOME Condition at time of disposition: Stable Decision to Admit order: No - Referrals Referrals: Chantel Soto MD [Primary Care Provider] - - Patient Instructions Additional Instructions: Take Aleve or Tylenol as needed for pain. Follow manufacturers instructions for appropriate dosage. Warm moist heat applied to your back may help alleviate pain. Return to emergency department for discoloration of the foot, numbness or tingling to the foot, worsening pain, or any other concerns. Thank you very much for choosing us to provide your emergent healthcare needs. - Post Discharge Activity
== END 2018-04-13 12:36 | disposition home or self-care (01) ==
LOC: JERFT 11:43
PROC: 3E0233Z Introduction of Anti-inflammatory into Muscle, Percutaneous Approach (ICD-10-PCS; principal; 2018-04-13)
DX: M54.16 Radiculopathy, lumbar region (principal); E78.00 Pure hypercholesterolemia, unspecified
CPT/HCPCS: 96372; 99281-25

== ENCOUNTER 2018-04-29 16:21 | Emergency (ER) | payer OTHER ==
[2018-04-29 16:24] VITALS: BP 134/86; PULSE 89; TEMP 98.5; BMI 37.5
[2018-04-29] MEDS ORDERED: KETOROLAC TROMETHAMINE 60 MG/2 ML VIAL IM ONE (17:02)
--- NOTE | 2018-04-29 17:04 | PDOC ---
History of Present Illness - General Chief Complaint: Headache Stated Complaint: HEADACHES Time Seen by Provider: 04/29/18 17:00 - History of Present Illness Initial Comments: 04/29/18 17:03 47-year-old female with a past medical history of dyslipidemia presents for evaluation of headache. This is typical of her usual migraines which she comes to the emergency room for. She states this was exacerbated by Jeronimo last night. No other symptoms. No systemic symptoms. Past History - Past Medical History Allergies/Adverse Reactions: Allergies Allergy/AdvReac Type Severity Reaction Status Date / Time No Known Allergies Allergy Verified 04/29/18 16:24 Home Medications: Ambulatory Orders Atorvastatin 40 mg PO DAILY 03/24/18 Cardiac Disorders: Yes (pericarditis) COPD: No DVT: No GI Disorders: Yes (GERD) Hypercholesterolemia: Yes Other medical history: migraines - Immunization History Immunization Up to Date: Yes - Suicide/Smoking/Psychosocial Hx Smoking Status: No Smoking History: Never smoked Have you smoked in the past 12 months: No Number of Cigarettes Smoked Daily: 0 If you are a former smoker, when did you quit?: 2002 Hx Alcohol Use: No Drug/Substance Use Hx: No Substance Use Type: None Review of Systems - Review of Systems Constitutional: No: Fever Neurological: Yes: Headache *Physical Exam - Vital Signs Last Vital Signs Temp Pulse Resp BP Pulse Ox 98.5 F 89 18 134/86 100 04/29/18 16:22 04/29/18 16:22 04/29/18 16:22 04/29/18 16:22 04/29/18 16:22 - Physical Exam Comments: 04/29/18 17:03 HEAD: NC/AT EYES: Conjuntiva clear Ears: Canals and TM's normal NOSE: No d/c THROAT: Moist mucous membrances, oral pharanx clear, uvula midline NECK: Supple without adenopathy CARDIAC: S1 S2 LUNGS: CTA Full and Equal breath sounds ABDOMEN: Soft NT ND MS: Full ROM in all joints without edema NEUROLOGIC: No gross sensory or motor deficits, NVID SKIN: Normal color and temperature no lesions or rashes Moderate Sedation - Procedure Monitoring Vital Signs: Procedure Monitoring Vital Signs Temperature 98.5 F 04/29/18 16:22 Pulse Rate 89 04/29/18 16:22 Respiratory Rate 18 04/29/18 16:22 Blood Pressure 134/86 04/29/18 16:22 O2 Sat by Pulse Oximetry (%) 100 04/29/18 16:22 *DC/Admit/Observation/Transfer Diagnosis at time of Disposition: Status migrainosus without intractable migraine - Discharge Dispostion Disposition: HOME Condition at time of disposition: Improved Decision to Admit order: No - Referrals Referrals: Chantel Soto MD [Primary Care Provider] - - Patient Instructions Printed Discharge Instructions: Migraine -- Adult, DI for Migraine Additional Instructions: Return to the emergency room if you're symptoms should return. Follow-up with your primary care physician and neurologist in one to 2 days for further evaluation and treatment options. Knee your regular medications. - Post Discharge Activity
[2018-04-29] MEDS ORDERED: KETOROLAC TROMETHAMINE 60 MG/2 ML VIAL ONE (17:08)
== END 2018-04-29 17:19 | disposition home or self-care (01) ==
LOC: JERFT 16:21
PROC: 3E023GC Introduction of Other Therapeutic Substance into Muscle, Percutaneous Approach (ICD-10-PCS; principal; 2018-04-29)
PROC: 3E0233Z Introduction of Anti-inflammatory into Muscle, Percutaneous Approach (ICD-10-PCS; 2018-04-29)
DX: G43.801 Other migraine, not intractable, with status migrainosus (principal); E78.5 Hyperlipidemia, unspecified; K21.9 Gastro-esophageal reflux disease without esophagitis; Z86.79 Personal history of other diseases of the circulatory system
CPT/HCPCS: 96372; 99281-25

== ENCOUNTER 2018-05-03 19:14 | Emergency (ER) | payer OTHER ==
[2018-05-03 19:57] VITALS: BP 121/76; PULSE 84; TEMP 98.3; BMI 37.5
--- NOTE | 2018-05-03 19:57 | PDOC ---
Rapid Medical Evaluation Chief Complaint: Headache Medical Evaluation: Allergies Allergy/AdvReac Type Severity Reaction Status Date / Time No Known Allergies Allergy Verified 04/29/18 16:24 05/03/18 19:56 I have performed a brief in-person evaluation of this patient. The patient presents with a chief complaint of: recurrant headache Pertinent physical exam findings: A and O x 3 , neuro I have ordered the following: Torodol 60mg IM The patient will proceed to the ED for further evaluation. Discharge Disposition - Diagnosis Migraine - Referrals - Patient Instructions - Post Discharge Activity
[2018-05-03] MEDS ORDERED: KETOROLAC TROMETHAMINE 60 MG/2 ML VIAL IM ONE (21:03)
[2018-05-03] MEDS ORDERED: KETOROLAC TROMETHAMINE 60 MG/2 ML VIAL ONE (21:06)
[2018-05-03] MEDS ORDERED: diphenhydrAMINE HCL 25 MG CAPSULE (FP) PO ONE ×2 (21:09→21:10)
--- NOTE | 2018-05-03 21:10 | PDOC ---
History of Present Illness - General Chief Complaint: Headache Stated Complaint: HEADACHE Time Seen by Provider: 05/03/18 21:00 History Source: Patient Exam Limitations: No Limitations - History of Present Illness Initial Comments: 05/03/18 21:00 c/o acute pain of chronic migraine headache, no fevers/ cough/ visual changes or fevers. Severity: Yes: mild, moderate Associated Symptoms: reports: denies symptoms. denies: numbness in legs/feet Past History - Travel Traveled outside of the country in the last 30 days: No Close contact w/someone who was outside of country & ill: No - Past Medical History Allergies/Adverse Reactions: Allergies Allergy/AdvReac Type Severity Reaction Status Date / Time No Known Allergies Allergy Verified 05/03/18 21:05 Home Medications: Ambulatory Orders Atorvastatin 40 mg PO DAILY 03/24/18 Cardiac Disorders: Yes (pericarditis) COPD: No DVT: No GI Disorders: Yes (GERD) Hypercholesterolemia: Yes - Immunization History Immunization Up to Date: Yes - Suicide/Smoking/Psychosocial Hx Smoking Status: No Smoking History: Never smoked Have you smoked in the past 12 months: No Number of Cigarettes Smoked Daily: 0 If you are a former smoker, when did you quit?: 2002 Information on smoking cessation initiated: No Hx Alcohol Use: No Drug/Substance Use Hx: No Substance Use Type: None Neuro Specific PMHX - Complaint Specific PMHX Glaucoma: No Herniated Disk: No Laminectomy: No Migraine: Yes Review of Systems - Review of Systems Able to Perform ROS?: Yes Is the patient limited Sami proficient: Yes Constitutional: Yes: Symptoms Reported, See HPI, Malaise. No: Chills, Fever, Loss of Appetite HEENTM: Yes: See HPI. No: Symptoms Reported Respiratory: Yes: See HPI. No: Symptoms reported, Cough Neurological: Yes: Symptoms reported, See HPI, Headache All Other Systems: Reviewed and Negative *Physical Exam - Vital Signs Last Vital Signs Temp Pulse Resp BP Pulse Ox 98.3 F 84 16 121/76 100 05/03/18 19:54 05/03/18 19:54 05/03/18 19:54 05/03/18 19:54 05/03/18 19:54 - Physical Exam General Appearance: Yes: Nourished, Appropriately Dressed, Apparent Distress, Mild Distress HEENT: positive: JOSE JUAN, Normal ENT Inspection, TMs Normal, Pharynx Normal Neck: positive: Tender, Supple. negative: Lymphadenopathy (R), Lymphadenopathy (L) Respiratory/Chest: positive: Lungs Clear Gastrointestinal/Abdominal: positive: Normal Bowel Sounds, Soft. negative: Tender Extremity: positive: Normal Capillary Refill Integumentary: positive: Normal Color, Dry, Warm, Pale Neurologic: positive: data architect II-XII NML intact, Fully Oriented, Alert, Normal Mood/ Affect, Normal Response, Motor Strength 5/5 Moderate Sedation - Procedure Monitoring Vital Signs: Procedure Monitoring Vital Signs Temperature 98.3 F 05/03/18 19:54 Pulse Rate 84 05/03/18 19:54 Respiratory Rate 16 05/03/18 19:54 Blood Pressure 121/76 05/03/18 19:54 O2 Sat by Pulse Oximetry (%) 100 05/03/18 19:54 Progress Note - Progress Note Progress Note: medicated with 60 mg of IM Toradol, and 50 mg by moutbenadryl per patient request and discharged. Will follow-up with headache cl Monday *DC/Admit/Observation/Transfer Diagnosis at time of Disposition: Migraine Qualifiers: Migraine type: unspecified Status migrainosus presence: without status migrainosus Intractability: not intractable Qualified Code(s): G43.909 - Migraine, unspecified, not intractable, without status migrainosus - Discharge Dispostion Disposition: HOME Condition at time of disposition: Stable Decision to Admit order: No - Referrals Referrals: Chantel Soto MD [Primary Care Provider] - - Patient Instructions Printed Discharge Instructions: DI for Migraine Additional Instructions: Rest, drink lots of fluids: Teas, water, soups, Pedialyte Saltwater gargles Steamy showers/seem to face break up mucus Avoid contact with others until fevers and cough resolved Lots of handwashing and good hygiene Continue [id number] medications for symptomatic relief Tylenol or Motrin for fever and pain Followup with private physician in one to 2 days as needed Return to emergency department for worsened symptoms, fevers, dehydration - Post Discharge Activity Forms/Work/School Notes: Back to Work
== END 2018-05-03 21:40 | disposition home or self-care (01) ==
LOC: JERFT 19:14
PROC: 3E0233Z Introduction of Anti-inflammatory into Muscle, Percutaneous Approach (ICD-10-PCS; principal; 2018-05-03)
DX: G43.909 Migraine, unspecified, not intractable, without status migrainosus (principal); E78.00 Pure hypercholesterolemia, unspecified; K21.9 Gastro-esophageal reflux disease without esophagitis; Z86.79 Personal history of other diseases of the circulatory system
CPT/HCPCS: 99281-25

== ENCOUNTER 2018-05-21 15:36 | Emergency (ER) | payer OTHER ==
[2018-05-21 15:40] VITALS: BP 133/75; PULSE 94; TEMP 98.1; BMI 36.0
[2018-05-21] MEDS ORDERED: KETOROLAC TROMETHAMINE 60 MG/2 ML VIAL IM ONE (16:33)
[2018-05-21] MEDS ORDERED: KETOROLAC TROMETHAMINE 60 MG/2 ML VIAL ONE (16:37)
--- NOTE | 2018-05-21 16:44 | PDOC ---
History of Present Illness - General Chief Complaint: Migraine Headache Stated Complaint: MIGRAINE Time Seen by Provider: 05/21/18 16:08 - History of Present Illness Initial Comments: 05/21/18 16:42 47-year-old female presents for evaluation of headache times one day. She has prior history of migraines she is here for Benadryl and Toradol. Past History - Past Medical History Allergies/Adverse Reactions: Allergies Allergy/AdvReac Type Severity Reaction Status Date / Time No Known Allergies Allergy Verified 05/21/18 15:41 Home Medications: Ambulatory Orders Atorvastatin 40 mg PO DAILY 03/24/18 Cardiac Disorders: Yes (pericarditis) COPD: No DVT: No GI Disorders: Yes (GERD) Hypercholesterolemia: Yes - Immunization History Immunization Up to Date: Yes - Suicide/Smoking/Psychosocial Hx Smoking Status: No Smoking History: Former smoker Have you smoked in the past 12 months: No Number of Cigarettes Smoked Daily: 0 If you are a former smoker, when did you quit?: 15 YRS AGO Information on smoking cessation initiated: No Hx Alcohol Use: No Drug/Substance Use Hx: No Substance Use Type: None Review of Systems - Review of Systems Neurological: Yes: Headache *Physical Exam - Vital Signs Last Vital Signs Temp Pulse Resp BP Pulse Ox 98.1 F 94 H 14 133/75 100 05/21/18 15:38 05/21/18 15:38 05/21/18 15:38 05/21/18 15:38 05/21/18 15:38 - Physical Exam Comments: 05/21/18 16:43 HEAD: NC/AT EYES: Conjuntiva clear MS: Full ROM in all joints without edema NEUROLOGIC: No gross sensory or motor deficits, NVID SKIN: Normal color and temperature no lesions or rashes ED Treatment Course - Medications Given in the ED: ED Medications Discontinued Medications Generic Name Dose Route Start Last Admin Trade Name Freq PRN Reason Stop Dose Admin Diphenhydramine HCl 25 mg 05/21/18 16:35 05/21/18 16:40 Benadryl Injection - IM 05/21/18 16:36 25 mg ONCE ONE Administration Ketorolac Tromethamine 60 mg 05/21/18 16:33 05/21/18 16:40 Toradol Injection - IM 05/21/18 16:34 60 mg ONCE ONE Administration Medical Decision Making - Medical Decision Making 05/21/18 17:21 Patient improved with Toradol and Benadryl I will have her follow-up with neurology *DC/Admit/Observation/Transfer Diagnosis at time of Disposition: Migraine - Discharge Dispostion Disposition: HOME Condition at time of disposition: Improved Decision to Admit order: No - Referrals Referrals: Chantel Soto MD [Primary Care Provider] - Baron Leung DO [Staff Physician] - - Patient Instructions Printed Discharge Instructions: DI for Migraine, Migraine -- Adult Additional Instructions: Return to the emergency room for worsening symptoms and follow-up with neurology in 2-3 days for further evaluation and treatment options - Post Discharge Activity
== END 2018-05-21 17:25 | disposition home or self-care (01) ==
LOC: JERFT 15:36
PROC: 3E0233Z Introduction of Anti-inflammatory into Muscle, Percutaneous Approach (ICD-10-PCS; principal; 2018-05-21)
PROC: 3E023GC Introduction of Other Therapeutic Substance into Muscle, Percutaneous Approach (ICD-10-PCS; 2018-05-21)
DX: G43.909 Migraine, unspecified, not intractable, without status migrainosus (principal)
CPT/HCPCS: 96372; 99281-25

== ENCOUNTER 2018-06-03 06:28 | Emergency (ER) | payer OTHER ==
[2018-06-03 07:11] VITALS: BP 117/72; PULSE 79; TEMP 98.3; BMI 36.0
[2018-06-03] MEDS ORDERED: KETOROLAC TROMETHAMINE 30 MG/1 ML VIAL IM ONE (07:42)
[2018-06-03] MEDS ORDERED: KETOROLAC TROMETHAMINE 60 MG/2 ML VIAL IM ONE (07:47)
--- NOTE | 2018-06-03 07:47 | PDOC ---
History of Present Illness - General Chief Complaint: Migraine Headache Stated Complaint: MIGRAINE Time Seen by Provider: 06/03/18 07:35 History Source: Patient Exam Limitations: Clinical Condition - History of Present Illness Initial Comments: 06/03/18 07:45 Patient with a history of chronic migraines on Botox treatment present with complaint of worsening headache since last night consistent with migraine. Patient had multiple visits for migraines and reported migraine resolved with Toradol and Benadryl. Patient was seen 2 weeks ago for same symptoms and treated and discharged with no findings. Patient be followed up with neurologist. Timing/Duration: 24 hours Past History - Past Medical History Allergies/Adverse Reactions: Allergies Allergy/AdvReac Type Severity Reaction Status Date / Time No Known Allergies Allergy Verified 06/03/18 07:11 Home Medications: Ambulatory Orders Atorvastatin 40 mg PO DAILY 03/24/18 Cardiac Disorders: Yes (pericarditis) COPD: No DVT: No GI Disorders: (GERD) Hypercholesterolemia: Yes Other medical history: migrains - Immunization History Immunization Up to Date: Yes - Suicide/Smoking/Psychosocial Hx Smoking Status: No Smoking History: Never smoked Have you smoked in the past 12 months: No Number of Cigarettes Smoked Daily: 0 If you are a former smoker, when did you quit?: 15 YRS AGO Hx Alcohol Use: No Drug/Substance Use Hx: No Substance Use Type: None Review of Systems - Review of Systems Able to Perform ROS?: Yes Is the patient limited Uzbek proficient: No Constitutional: No: Chills, Fever, Malaise, Weakness HEENTM: No: Symptoms Reported, See HPI, Eye Pain, Blurred Vision, Tearing, Recent change in vision, Double Vision, Cataracts, Ear Pain, Ocular Prothesis, Ear Discharge, Nose Pain, Nose Congestion, Tinnitus, Nose Bleeding, Hearing Loss , Throat Pain, Throat Swelling, Mouth Pain, Dental Problems, Difficulty Swallowing, Mouth Swelling, Other Respiratory: No: Symptoms reported, See HPI, Cough, Orthopnea, Shortness of Breath, SOB with Exertion, SOB at Rest, Stridor, Wheezing, Productive cough, Hemoptysis, Other Cardiac (ROS): No: Symptoms Reported, See HPI, Chest Pain, Edema, Irregular Heart Rate, Lightheadedness, Palpitations, Syncope, Chest Tightness, Other ABD/GI: No: Nausea, Vomiting Neurological: Yes: Headache. No: Pre-Existing Deficit, Seizure, Weakness, Unsteady Gait, Ataxia, Dizziness All Other Systems: Reviewed and Negative *Physical Exam - Vital Signs Last Vital Signs Temp Pulse Resp BP Pulse Ox 98.3 F 79 18 117/72 100 06/03/18 07:07 06/03/18 07:07 06/03/18 07:07 06/03/18 07:07 06/03/18 07:07 - Physical Exam Comments: 06/03/18 07:43 GENERAL: Well developed, well nourished. Awake and alert. No acute distress. HEENT: Normocephalic, atraumatic. PERRLA, EOMI. No conjunctival pallor. Sclera are non- icteric. Moist mucous membranes. Oropharynx is clear. NECK: Supple. Full ROM. No JVD. Carotid pulses 2+ and symmetric, without bruits. No thyromegaly. No lymphadenopathy. CARDIOVASCULAR: Regular rate and rhythm. No murmurs, rubs, or gallops. Distal pulses are 2+ and symmetric. PULMONARY: No evidence of respiratory distress. Lungs clear to auscultation bilaterally. No wheezing, rales or rhonchi. ABDOMINAL: Soft. Non-tender. Non-distended. No rebound or guarding. No organomegaly. Normoactive bowel sounds. MUSCULOSKELETAL Normal range of motion at all joints. No bony deformities or tenderness. EXTREMITIES: No cyanosis. No clubbing. No edema. SKIN: Warm and dry. Normal capillary refill. No rashes. No jaundice. NEUROLOGICAL: Alert, awake, appropriate. Cranial nerves 2-12 intact. No deficits to light touch and temperature in face, No motor deficits in the in face, upper extremities and lower extremities. Normal speech. Toes are down-going bilaterally. Gait is normal without ataxia. PSYCHIATRIC: Cooperative. Good eye contact. Appropriate mood and affect. General Appearance: Yes: Nourished, Appropriately Dressed. No: Apparent Distress Medical Decision Making - Medical Decision Making 06/03/18 07:44 Patient with a history of chronic migraines on Botox treatment present with complaint of worsening headache since last night consistent with migraine. Patient had multiple visits for migraines and reported migraine resolved with Toradol and Benadryl. Patient was seen 2 weeks ago for same symptoms and treated and discharged with no findings. Patient be followed up with neurologist. Clinical exam unremarkable with normal neuro exam. Toradol 30 mg IM and Benadryl 60 mg IM ordered. Patient is stable for discharge with neurology follow-up. *DC/Admit/Observation/Transfer Diagnosis at time of Disposition: Headache Qualifiers: Headache type: unspecified Headache chronicity pattern: chronic headache Intractability: not intractable Qualified Code(s): R51 - Headache Status migrainosus without intractable migraine Qualifiers: Migraine type: without aura Qualified Code(s): G43.001 - Migraine without aura , not intractable, with status migrainosus - Discharge Dispostion Disposition: HOME Condition at time of disposition: Stable Decision to Admit order: No - Referrals - Patient Instructions Printed Discharge Instructions: Migraine Headaches (Alternative Therapy), Migraine -- Adult Additional Instructions: Take home migraine medications as prescribed. Follow-up with neurologist as scheduled - Post Discharge Activity
== END 2018-06-03 08:20 | disposition home or self-care (01) ==
LOC: JER 06:28
PROC: 3E0233Z Introduction of Anti-inflammatory into Muscle, Percutaneous Approach (ICD-10-PCS; principal; 2018-06-03)
PROC: 3E023GC Introduction of Other Therapeutic Substance into Muscle, Percutaneous Approach (ICD-10-PCS; 2018-06-03)
DX: G43.001 Migraine without aura, not intractable, with status migrainosus (principal); K21.9 Gastro-esophageal reflux disease without esophagitis; E78.00 Pure hypercholesterolemia, unspecified; Z86.79 Personal history of other diseases of the circulatory system
CPT/HCPCS: 96372; 99282-25

== ENCOUNTER 2018-06-11 05:23 | Emergency (ER) | payer OTHER ==
--- NOTE | 2018-06-11 05:43 | PDOC ---
History of Present Illness - General Stated Complaint: MIGRANE Time Seen by Provider: 06/11/18 05:42 - History of Present Illness Initial Comments: 47yo F with PMH of HLD and chronic migraines presenting with headache. Patient states she has had two days of intermittent headache, rated 10/10. Her headache is consistent with previous headaches she has had, but she has had not had a headache this severe "in a minute." Patient gets monthly injections for her headaches. She has an appointment to see her neurologist today at 11am, but she reports she could not wait that long for analgesia. Patient has had head CT's in the past, but has never had a lumbar puncture. She has taken cyclobenzaprine 5mg and excedrin at home with minimal relief. Patient does not know what her headache triggers are. Endorses nausea, but no vomiting. Patient heard a large ' boom' overnight which she says her said was the thunder. No photophobia or vision changes. Denies focal neurologic deficits or paraesthesia. Patient states that benadryl and toradol usually help her headaches. No recent sick contacts or recent travel. No fever, chills, chest pain, or shortness of breath. Past History - Past Medical History Allergies/Adverse Reactions: Allergies Allergy/AdvReac Type Severity Reaction Status Date / Time No Known Allergies Allergy Verified 06/11/18 05:54 Home Medications: Ambulatory Orders Atorvastatin 40 mg PO DAILY 03/24/18 Cyclobenzaprine HCl [Flexeril 10 mg] 5 mg PO DAILY 06/11/18 Cardiac Disorders: Yes (pericarditis) COPD: No DVT: No GI Disorders: Yes (GERD) Hypercholesterolemia: Yes - Immunization History Immunization Up to Date: Yes - Suicide/Smoking/Psychosocial Hx Smoking Status: No Smoking History: Former smoker Have you smoked in the past 12 months: No Number of Cigarettes Smoked Daily: 0 If you are a former smoker, when did you quit?: 15 YRS AGO Hx Alcohol Use: No Drug/Substance Use Hx: No Substance Use Type: None Review of Systems - Review of Systems Comments:: Constitutional: no fever, no chills HEENT: no throat pain, no dysphagia Cardiovascular: no chest pain, no palpitations Respiratory: no cough, no shortness of breath Gastrointestinal: no abdominal pain, +nausea Genitourinary: no dysuria, no frequency Musculoskeletal: no myalgia, no arthralgia Skin: no rash, no itching Neurologic: +headache, no weakness *Physical Exam - Physical Exam Comments: General: Awake, alert, and fully oriented, in no acute distress, clutching her head Head: No signs of trauma Eyes: EOMI, sclera anicteric ENT: Moist mucus membranes Neck: Normal ROM, supple, no meningismus Lungs: Lungs clear, Normal breath sounds Cardio: Regular rhythm, S1 and S2 present Abdomen: Soft, nontender Extremities: Normal range of motion, Distal pulses present SKIN: Warm, Dry, normal turgor Neurologic: Cranial nerves II through XII intact. Normal speech, sensation, strength, coordination, and gait. ED Treatment Course - LABORATORY CBC & Chemistry Diagram: 06/11/18 06:16 06/11/18 06:16 Medical Decision Making - Medical Decision Making 47yo F with PMH of HLD and chronic migraines presenting with headache. DDX including but not limited to migraine headache, idiopathic intracranial headache, brain bleed/mass 975mg po tylenol CT head without contrast Urine hcg, CBC, CMP, PT/INR 06/11/18 05:58 LP recommended to patient to rule out IIH. She says she will think about it. 06/11/18 06:41 Urine Hcg negative Patient sent to CT scan Patient declined lumbar puncture, stating she has an appointment to see her neurologist today and will discuss it at that time. 06/11/18 06:56 Patient signed out to Dr. De Leon 06/11/18 07:01 *DC/Admit/Observation/Transfer Diagnosis at time of Disposition: Headache - Discharge Dispostion Disposition: HOME Condition at time of disposition: Improved - Referrals Referrals: Chantel Soto MD [Primary Care Provider] - - Patient Instructions Printed Discharge Instructions: DI for Headache Additional Instructions: You were seen today for headache. Your head CT was normal. Your lab work was normal. Take Tylenol 650 mg PO every 4 hours as needed for headache. Drink lots of fluids to stay hydrated. Get at least 8 hours of sleep at night. Follow up with your neurologist at your appointment today. Bring all the paperwork given to you today to your appointment. Return to the Emergency Department for increasing headache despite Tylenol use, weakness, numbness, tingling, neck stiffness, fever, chills, vomiting, changes in vision or any other new, worsening or concerning symptoms. - Post Discharge Activity Forms/Work/School Notes: Back to Work
--- NOTE | 2018-06-11 05:52 | PDOC ---
Attending Attestation - Resident Resident Name: Kaykay Lino - ED Attending Attestation I have performed the following: I have examined & evaluated the patient, The case was reviewed & discussed with the resident, I agree w/resident's findings & plan - HPI HPI: 06/11/18 05:51 Pt comes with a migraine OSCAR. She states that she always has this. I have never met patient and I will work her up and get LP to make sure that she has no increased CSF pressure that may be the cause of her frequent headaches. - Physicial Exam PE: 06/11/18 05:59 Agree with resident exam - Medical Decision Making 06/11/18 06:44 INR is 1; pt can get a diagnostic LP to measure her CSF opening pressure; if elevated, CSF can be removed, and closing pressure can be measured and reduced, as needed (CSF should be less than 25cm H2O) 06/11/18 06:50 Pt will be signed out to the day ER team. 06/11/18 06:52 Chem is normal and pt is not .
[2018-06-11 05:58] VITALS: TEMP 98.3; BMI 36.0
[2018-06-11] MEDS ORDERED: ACETAMINOPHEN 325 MG TABLET (FP) PO ONE (06:02)
[2018-06-11] MEDS ORDERED: ACETAMINOPHEN 325 MG TABLET (FP) ONE (06:17)
[2018-06-11 06:26] LABS: BASO % 0.7 % (0-2.0); EOS % 0.8 % (0-4.5); HEMATOCRIT 35.4 % (32.4-45.2); HEMOGLOBIN 11.6 GM/dL (10.7-15.3); LYMPH % 46.9 % (8-40); MCH 27.5 pg (25.7-33.7); MCHC 32.8 g/dl (32.0-36.0); MONO % 5.9 % (3.8-10.2); NEUT % 45.7 % (42.8-82.8); PLATELET COUNT 304 K/MM3 (134-434); RBC 4.21 M/mm3 (3.60-5.2); RDW 15.1 % (11.6-15.6); WHITE BLOOD COUNT 6.4 K/mm3 (4.0-10.0)
[2018-06-11 06:41] LABS: INR 1.02 (0.83-1.09)
[2018-06-11 06:50] LABS: ALBUMIN 3.3 g/dl (3.4-5.0); ALK PHOS 81 U/L (45-117); ANION GAP 5 MMOL/L (8-16); BILIRUBIN,TOTAL 0.2 mg/dL (0.2-1); BLOOD UREA NITROGEN 13 mg/dL (7-18); CALCIUM 8.5 mg/dL (8.5-10.1); CHLORIDE 108 mmol/L (98-107); CO2 24 mmol/L (21-32); CREATININE 0.6 mg/dL (0.55-1.3); GLUCOSE,RANDOM 100 mg/dL (74-106); POTASSIUM 3.9 mmol/L (3.5-5.1); SGOT/AST 15 U/L (15-37); SGPT/ALT 18 U/L (13-61); SODIUM 137 mmol/L (136-145); TOT PROT 7.2 g/dl (6.4-8.2)
[2018-06-11] MEDS ORDERED: SUMATRIPTAN SUCCINATE 6 MG/0.5 ML VIAL SQ ONE (06:56)
[2018-06-11] MEDS ORDERED: SODIUM CHLORIDE 1,000 ML IV STA (07:03)
[2018-06-11] MEDS ORDERED: METOCLOPRAMIDE HCL INJECTION 10 MG/2 ML VIAL IVPUSH ONE (07:04)
--- NOTE | 2018-06-11 07:07 | PDOC ---
*Physical Exam - Vital Signs Last Vital Signs Temp Pulse Resp BP Pulse Ox 98.3 F 93 H 18 136/81 100 06/11/18 05:23 06/11/18 05:23 06/11/18 05:23 06/11/18 05:23 06/11/18 05:23 ED Treatment Course - LABORATORY CBC & Chemistry Diagram: 06/11/18 06:16 06/11/18 06:16 - ADDITIONAL ORDERS Additional order review: Laboratory Results 06/11/18 06/11/18 06/11/18 06:30 06:16 06:16 PT with INR 12.00 INR 1.02 Sodium 137 Potassium 3.9 Chloride 108 H Carbon Dioxide 24 Anion Gap 5 L BUN 13 Creatinine 0.6 Creat Clearance w eGFR 106.70 Random Glucose 100 Calcium 8.5 Total Bilirubin 0.2 AST 15 ALT 18 Alkaline Phosphatase 81 Total Protein 7.2 Albumin 3.3 L Urine HCG, Qual Negative 06/11/18 06:16 RBC 4.21 MCV 84.0 MCHC 32.8 RDW 15.1 D MPV 8.0 Neutrophils % 45.7 Lymphocytes % 46.9 H Monocytes % 5.9 Eosinophils % 0.8 Basophils % 0.7 - Medications Given in the ED: ED Medications Discontinued Medications Generic Name Dose Route Start Last Admin Trade Name Freq PRN Reason Stop Dose Admin Acetaminophen 975 mg 06/11/18 06:02 06/11/18 06:23 Tylenol - PO 06/11/18 06:03 975 mg ONCE ONE Administration Medical Decision Making - Medical Decision Making 06/11/18 07:05 47 year old female with PMH migraine headaches presented to ED for headache similar to prior headaches. She has an appointment with her neurologist today at 0930, but could not make it until then, so came to the ED for treatment of her headache. Initial Vital Signs Temp Pulse Resp BP Pulse Ox 98.3 F 93 H 18 136/81 100 06/11/18 05:23 06/11/18 05:23 06/11/18 05:23 06/11/18 05:23 06/11/18 05:23 Afebrile. No tachycardia. No tachypnea. Mild hypertension. No hypoxia on room air. CBC WBC 6.4 K/mm3 (4.0-10.0) 06/11/18 06:16 RBC 4.21 M/mm3 (3.60-5.2) 06/11/18 06:16 Hgb 11.6 GM/dL (10.7-15.3) 06/11/18 06:16 Hct 35.4 % (32.4-45.2) 06/11/18 06:16 MCV 84.0 fl (80-96) 06/11/18 06:16 MCH 27.5 pg (25.7-33.7) 06/11/18 06:16 MCHC 32.8 g/dl (32.0-36.0) 06/11/18 06:16 RDW 15.1 % (11.6-15.6) D 06/11/18 06:16 Plt Count 304 K/MM3 (134-434) 06/11/18 06:16 MPV 8.0 fl (7.5-11.1) 06/11/18 06:16 Absolute Neuts (auto) 2.9 K/mm3 (1.5-8.0) 06/11/18 06:16 Neutrophils % 45.7 % (42.8-82.8) 06/11/18 06:16 Lymphocytes % 46.9 % (8-40) H 06/11/18 06:16 Monocytes % 5.9 % (3.8-10.2) 06/11/18 06:16 Eosinophils % 0.8 % (0-4.5) 06/11/18 06:16 Basophils % 0.7 % (0-2.0) 06/11/18 06:16 Nucleated RBC % 0 % (0-0) 06/11/18 06:16 No leukocytosis. No anemia. CMP Sodium 137 mmol/L (136-145) 06/11/18 06:16 Potassium 3.9 mmol/L (3.5-5.1) 06/11/18 06:16 Chloride 108 mmol/L (98-107) H 06/11/18 06:16 Carbon Dioxide 24 mmol/L (21-32) 06/11/18 06:16 Anion Gap 5 MMOL/L (8-16) L 06/11/18 06:16 BUN 13 mg/dL (7-18) 06/11/18 06:16 Creatinine 0.6 mg/dL (0.55-1.3) 06/11/18 06:16 Creat Clearance w eGFR 106.70 (>60) 06/11/18 06:16 Random Glucose 100 mg/dL (74-106) 06/11/18 06:16 Calcium 8.5 mg/dL (8.5-10.1) 06/11/18 06:16 Total Bilirubin 0.2 mg/dL (0.2-1) 06/11/18 06:16 AST 15 U/L (15-37) 06/11/18 06:16 ALT 18 U/L (13-61) 06/11/18 06:16 Alkaline Phosphatase 81 U/L (45-117) 06/11/18 06:16 Total Protein 7.2 g/dl (6.4-8.2) 06/11/18 06:16 Albumin 3.3 g/dl (3.4-5.0) L 06/11/18 06:16 No electrolyte abnormalities. No MITCHELL. No transaminitis. Urine test negative. Pending CT head. Medications given: Tylenol 976 mg PO, Sumitriptan 6 mg SQ once Medications ordered: normal saline 1000 cc bolus, Benadryl 12.5 mg IV once, Reglan 10 mg IV once 06/11/18 07:40 Ct head report: no hydrocephalus. no acute subarachnoid hemorrhage. no subdural or epidural hematoma. no mass effect. no midline shift. no herniation or edema. no evidence of acute territorial infarction. 06/11/18 08:35 Pt reported improvement of headache from 10/10 to 7/10. Will continue to observe. 06/11/18 08:52 Pt reported she is further improvement of headache and would like to leave to make it to her appointment with her neurologist. Alert and orientedx3, no neck stiffness, appears well, sitting up straight in chair, 5/5 strength all extremities, normal sensation throughout. Pt discharged. *DC/Admit/Observation/Transfer Diagnosis at time of Disposition: Headache - Discharge Dispostion Disposition: HOME Condition at time of disposition: Improved Decision to Admit order: No - Referrals Referrals: Chantel Soto MD [Primary Care Provider] - - Patient Instructions Printed Discharge Instructions: DI for Headache Additional Instructions: You were seen today for headache. Your head CT was normal. Your lab work was normal. Take Tylenol 650 mg PO every 4 hours as needed for headache. Drink lots of fluids to stay hydrated. Get at least 8 hours of sleep at night. Follow up with your neurologist at your appointment today. Bring all the paperwork given to you today to your appointment. Return to the Emergency Department for increasing headache despite Tylenol use, weakness, numbness, tingling, neck stiffness, fever, chills, vomiting, changes in vision or any other new, worsening or concerning symptoms. - Post Discharge Activity Forms/Work/School Notes: Back to Work
[2018-06-11] MEDS ORDERED: METOCLOPRAMIDE HCL INJECTION 10 MG/2 ML VIAL ONE (07:32)
[2018-06-11] MEDS ORDERED: SUMATRIPTAN SUCCINATE 6 MG/0.5 ML VIAL ONE (07:33)
[2018-06-11] MEDS ORDERED: KETOROLAC TROMETHAMINE 15 MG/ML VIAL IVPUSH ONE (08:05)
[2018-06-11] MEDS ORDERED: KETOROLAC TROMETHAMINE 30 MG/1 ML VIAL ONE (08:06)
[2018-06-11 08:28] VITALS: BP 113/70; PULSE 70
== END 2018-06-11 08:30 | disposition home or self-care (01) ==
LOC: JER 05:23
PROC: 3E033GC Introduction of Other Therapeutic Substance into Peripheral Vein, Percutaneous Approach (ICD-10-PCS; principal; 2018-06-11)
PROC: 3E033GC Introduction of Other Therapeutic Substance into Peripheral Vein, Percutaneous Approach (ICD-10-PCS; 2018-06-11)
PROC: 3E0333Z Introduction of Anti-inflammatory into Peripheral Vein, Percutaneous Approach (ICD-10-PCS; 2018-06-11)
DX: G43.909 Migraine, unspecified, not intractable, without status migrainosus (principal)
CPT/HCPCS: 36415; 70450-TC; 80053; 84703; 85025; 85610; 96374; 96375; 99282-25; J7030

== ENCOUNTER 2018-06-26 19:11 | Observation (INO) | payer OTHER ==
--- NOTE | 2018-06-26 19:15 | PDOC ---
Rapid Medical Evaluation Chief Complaint: Chest Pain Time Seen by Provider: 06/26/18 19:13 Medical Evaluation: Allergies Allergy/AdvReac Type Severity Reaction Status Date / Time No Known Allergies Allergy Verified 06/11/18 05:54 06/26/18 19:13 I have performed a brief in person evaluation at triage on this patient. CC: CP HPI: Pt is a 47 YO female who has had CP x 1 day. Pt denies family or personal hx of CV disease PE: Skin: clear Lungs: clear Heart: RRR MS: Moves all extremities without difficulty Neuro: Alert and oriented Psych: Appropriate affect I have ordered: Cv protocol Pt will proceed to the main ED for further evaluation. Discharge Disposition - Diagnosis Chest pain Qualifiers: Chest pain type: other chest pain Qualified Code(s): R07.89 - Other chest pain ; R07.8 - Other chest pain - Referrals - Patient Instructions - Post Discharge Activity
[2018-06-26 19:37] LABS: BASO % 0.7 % (0-2.0); EOS % 1.7 % (0-4.5); HEMATOCRIT 35.5 % (32.4-45.2); HEMOGLOBIN 11.6 GM/dL (10.7-15.3); LYMPH % 39.4 % (8-40); MCHC 32.7 g/dl (32.0-36.0); MEAN CELL VOLUME 85.6 fl (80-96); MEAN PLT VOLUME 8.1 fl (7.5-11.1); MONO % 5.8 % (3.8-10.2); NEUT % 52.4 % (42.8-82.8); PLATELET COUNT 310 K/MM3 (134-434); RBC 4.15 M/mm3 (3.60-5.2); RDW 15.5 % (11.6-15.6); WHITE BLOOD COUNT 8.1 K/mm3 (4.0-10.0)
[2018-06-26 20:08] LABS: INR 0.99 (0.83-1.09); PROTHROMBIN TIME (PATIENT) 11.7 SEC (9.7-13.0)
[2018-06-26 20:34] LABS: ALBUMIN 3.6 g/dl (3.4-5.0); ALK PHOS 93 U/L (45-117); ANION GAP 6 MMOL/L (8-16); BILIRUBIN,TOTAL 0.1 mg/dL (0.2-1); BLOOD UREA NITROGEN 8 mg/dL (7-18); CALCIUM 8.7 mg/dL (8.5-10.1); CHLORIDE 106 mmol/L (98-107); CO2 29 mmol/L (21-32); CREATININE 0.7 mg/dL (0.55-1.3); GLUCOSE,RANDOM 72 mg/dL (74-106); MAGNESIUM 2.1 mg/dL (1.8-2.4); POTASSIUM 3.8 mmol/L (3.5-5.1); SGOT/AST 13 U/L (15-37); SGPT/ALT 17 U/L (13-61); SODIUM 140 mmol/L (136-145); TOT PROT 7.6 g/dl (6.4-8.2)
[2018-06-26] MEDS ORDERED: MAG HYDROX/AL HYDROX/SIMETH 30 ML UNIT-DOSE CUP PO ONE (22:18)
[2018-06-26] MEDS ORDERED: FAMOTIDINE 20 MG/50 ML IVPB 20 MG/50 ML MG IVPB ONE ×2 (22:18→22:39)
[2018-06-26] MEDS ORDERED: MAG HYDROX/AL HYDROX/SIMETH 30 ML UNIT-DOSE CUP ONE (22:39)
[2018-06-27] MEDS ORDERED: ASPIRIN 81 MG CHEWABLE TABLETS PO ONE (04:49)
[2018-06-27] MEDS ORDERED: morphine CARPU-JECT 4 MG/1 ML DISP.SYRIN IVPUSH ONE (04:49)
--- NOTE | 2018-06-27 05:05 | PDOC ---
*Physical Exam - Vital Signs Last Vital Signs Temp Pulse Resp BP Pulse Ox 97.9 F 93 H 18 136/79 100 06/26/18 19:13 06/26/18 19:13 06/26/18 19:13 06/26/18 19:13 06/26/18 19:13 ED Treatment Course - LABORATORY CBC & Chemistry Diagram: 06/26/18 19:22 06/26/18 19:22 - ADDITIONAL ORDERS Additional order review: Laboratory Results 06/27/18 06/26/18 06/26/18 02:39 22:40 19:22 PT with INR INR Sodium 140 Potassium 3.8 Chloride 106 Carbon Dioxide 29 Anion Gap 6 L BUN 8 Creatinine 0.7 Creat Clearance w eGFR 89.31 Random Glucose 72 L Calcium 8.7 Magnesium 2.1 Total Bilirubin 0.1 L AST 13 L ALT 17 Alkaline Phosphatase 93 Creatine Kinase 113 129 Troponin I < 0.02 0.06 H < 0.02 Total Protein 7.6 Albumin 3.6 06/26/18 19:22 PT with INR 11.70 INR 0.99 Sodium Potassium Chloride Carbon Dioxide Anion Gap BUN Creatinine Creat Clearance w eGFR Random Glucose Calcium Magnesium Total Bilirubin AST ALT Alkaline Phosphatase Creatine Kinase Troponin I Total Protein Albumin 06/26/18 19:22 RBC 4.15 MCV 85.6 MCHC 32.7 RDW 15.5 MPV 8.1 Neutrophils % 52.4 Lymphocytes % 39.4 Monocytes % 5.8 Eosinophils % 1.7 D Basophils % 0.7 - Medications Given in the ED: ED Medications Discontinued Medications Generic Name Dose Route Start Last Admin Trade Name Freq PRN Reason Stop Dose Admin Al Hydroxide/Mg Hydroxide 30 ml 06/26/18 22:18 06/26/18 23:00 Mylanta Oral Suspension - PO 06/26/18 22:19 30 ml ONCE ONE Administration Famotidine/Sodium Chloride 20 mg in 50 mls @ 100 mls/hr 06/26/18 22:18 23:01 Pepcid 20 Mg Premixed Ivpb - IVPB 06/26/18 22:47 100 mls/hr ONCE ONE Administration Medical Decision Making - Medical Decision Making 06/27/18 04:58 47-year-old female signed out to me pending third troponin due to slight elevation of second set, patient is still complaining of active chest pressure Her troponin is within normal limits EKG with symptoms shows a sinus rhythm at 75 bpm with no acute ST elevations In light of patient's active symptoms she will be held for observation on medical service Morphine 4 mg as well as aspirin has been ordered as she has had minimal relief with GI cocktail and Pepcid *DC/Admit/Observation/Transfer Diagnosis at time of Disposition: Chest pain Qualifiers: Chest pain type: other chest pain Qualified Code(s): R07.89 - Other chest pain - Discharge Dispostion Condition at time of disposition: Fair Decision to Admit order Date/Time: Decision to Admit Order Category Date Time Status Decision to Admit to Hospital Routine Admission 06/27/18 04:51 Ordered - Referrals Referrals: Chantel Soto MD [Primary Care Provider] - - Patient Instructions - Post Discharge Activity
[2018-06-27] MEDS ORDERED: DEXTROSE 5%-0.45% SALINE 1,000 ML IV SCH (05:45)
--- NOTE | 2018-06-27 05:46 | HP ---
CHIEF COMPLAINT: Chest Pain PCP: Dr. Soto HISTORY OF PRESENT ILLNESS: This is a 47 y/o woman with a PMHx of: HLD, Chronic Migraines, s/p Cardiac Cath ([facility], 2017). Who presents to the ED with CP x last night. ER course was notable for: (1) troponin neg x3 (2) (3) Recent Travel: None PAST MEDICAL HISTORY: See HPI PAST SURGICAL HISTORY: Cardiac Cath ([facility], 2017) Social History: Smoking: Alcohol: Drugs: Family History: Allergies No Known Allergies Allergy (Verified 06/26/18 19:13) HOME MEDICATIONS: Home Medications Medication Instructions Recorded Atorvastatin 40 mg PO DAILY 03/24/18 Cyclobenzaprine HCl [Flexeril 10 5 mg PO DAILY 06/11/18 mg] REVIEW OF SYSTEMS CONSTITUTIONAL: Absent: fever, chills, diaphoresis, generalized weakness, malaise, loss of appetite, weight change HEENT: Absent: rhinorrhea, nasal congestion, throat pain, throat swelling, difficulty swallowing, mouth swelling, ear pain, eye pain, visual changes CARDIOVASCULAR: chest pain Absent: chest pain, syncope, palpitations, irregular heart rate, lightheadedness , peripheral edema RESPIRATORY: Absent: cough, shortness of breath, dyspnea with exertion, orthopnea, wheezing, stridor, hemoptysis GASTROINTESTINAL: Absent: abdominal pain, abdominal distension, nausea, vomiting, diarrhea, constipation, melena, hematochezia GENITOURINARY: Absent: dysuria, frequency, urgency, hesitancy, hematuria, flank pain, genital pain MUSCULOSKELETAL: Absent: myalgia, arthralgia, joint swelling, back pain, neck pain SKIN: Absent: rash, itching, pallor HEMATOLOGIC/IMMUNOLOGIC: Absent: easy bleeding, easy bruising, lymphadenopathy, frequent infections ENDOCRINE: Absent: unexplained weight gain, unexplained weight loss, heat intolerance, cold intolerance NEUROLOGIC: Absent: headache, focal weakness or paresthesias, dizziness, unsteady gait, seizure, mental status changes, bladder or bowel incontinence PSYCHIATRIC: Absent: anxiety, depression, suicidal or homicidal ideation, hallucinations. PHYSICAL EXAMINATION Vital Signs - 24 hr 06/26/18 19:13 Temperature 97.9 F Pulse Rate 93 H Respiratory 18 Rate Blood Pressure 136/79 O2 Sat by Pulse 100 Oximetry (%) GENERAL: Awake, alert, and fully oriented, in no acute distress. HEAD: Normal with no signs of trauma. EYES: Pupils equal, round and reactive to light, extraocular movements intact, sclera anicteric, conjunctiva clear. No lid lag. EARS, NOSE, THROAT: Ears normal, nares patent, oropharynx clear without exudates. Moist mucous membranes. NECK: Normal range of motion, supple without lymphadenopathy, JVD, or masses. LUNGS: Breath sounds equal, clear to auscultation bilaterally. No wheezes, and no crackles. No accessory muscle use. HEART: Regular rate and rhythm, normal S1 and S2 without murmur, rub or gallop. ABDOMEN: Soft, nontender, not distended, normoactive bowel sounds, no guarding, no rebound, no masses. No hepatomegaly or splenomegaly. MUSCULOSKELETAL: Normal range of motion at all joints. No bony deformities or tenderness. No CVA tenderness. UPPER EXTREMITIES: 2+ pulses, warm, well-perfused. No cyanosis. No clubbing. No peripheral edema. LOWER EXTREMITIES: 2+ pulses, warm, well-perfused. No calf tenderness. No peripheral edema. NEUROLOGICAL: Cranial nerves II-XII intact. Normal speech. Normal gait. PSYCHIATRIC: Cooperative. Good eye contact. Appropriate mood and affect. SKIN: Warm, dry, normal turgor, no rashes or lesions noted, normal capillary refill. Laboratory Results - last 24 hr 06/26/18 06/26/18 06/26/18 19:22 19:22 19:22 WBC 8.1 RBC 4.15 Hgb 11.6 Hct 35.5 MCV 85.6 MCH 28.0 MCHC 32.7 RDW 15.5 Plt Count 310 MPV 8.1 Absolute Neuts (auto) 4.2 Neutrophils % 52.4 Lymphocytes % 39.4 Monocytes % 5.8 Eosinophils % 1.7 D Basophils % 0.7 Nucleated RBC % 0 PT with INR 11.70 INR 0.99 Sodium 140 Potassium 3.8 Chloride 106 Carbon Dioxide 29 Anion Gap 6 L BUN 8 Creatinine 0.7 Creat Clearance w eGFR 89.31 Random Glucose 72 L Calcium 8.7 Magnesium 2.1 Total Bilirubin 0.1 L AST 13 L ALT 17 Alkaline Phosphatase 93 Creatine Kinase 129 Troponin I < 0.02 Total Protein 7.6 Albumin 3.6 06/26/18 06/27/18 22:40 02:39 WBC RBC Hgb Hct MCV MCH MCHC RDW Plt Count MPV Absolute Neuts (auto) Neutrophils % Lymphocytes % Monocytes % Eosinophils % Basophils % Nucleated RBC % PT with INR INR Sodium Potassium Chloride Carbon Dioxide Anion Gap BUN Creatinine Creat Clearance w eGFR Random Glucose Calcium Magnesium Total Bilirubin AST ALT Alkaline Phosphatase Creatine Kinase 113 Troponin I 0.06 H < 0.02 Total Protein Albumin ASSESSMENT/PLAN: This is a 47 y/o woman placed in Telemetry Observation for Chest Pain r/o ACS for further evaluation of their emergent condition Plan: See Problem List FEN D51/2NS@75ml/hr Replete lytes prn NPO DVT ppx OOB SCDs Consider AC if LOS > 48hr Dispo: Observation Problem List - Problem (1) Chest pain Assessment/Plan: r/o ACS Cardiac monitoring HEART Score 4 Serial Enzymes neg x3 Appreciate Cardiology consult Echo in am Stress Test in am Asa given in ED, will continue Continue Lipitor Morphine Sulfate prn Code(s): R07.9 - CHEST PAIN, UNSPECIFIED Qualifiers: Chest pain type: other chest pain Qualified Code(s): R07.89 - Other chest pain; R07.8 - Other chest pain (2) HLD (hyperlipidemia) Assessment/Plan: Continue Lipitor Code(s): E78.5 - HYPERLIPIDEMIA, UNSPECIFIED (3) Hx of migraines Assessment/Plan: stable no acute flare Will continue monitor and treat with interventions accordingly Code(s): Z86.69 - PERSONAL HISTORY OF DIS OF THE NERVOUS SYS AND SENSE ORGANS Visit type - Emergency Visit Emergency Visit: Yes ED Registration Date: 06/26/18 Care time: The patient presented to the Emergency Department on the above date and was hospitalized for further evaluation of their emergent condition. - New Patient This patient is new to me today: Yes Date on this admission: 06/27/18 - Critical Care Critical Care patient: No
[2018-06-27] MEDS ORDERED: ASPIRIN 81 MG CHEWABLE TABLETS ONE (06:05)
[2018-06-27] MEDS ORDERED: MORPHINE SULFATE 8 MG/ML VIAL ONE (06:05)
[2018-06-27 08:06] LABS: BASO % 0.7 % (0-2.0); EOS % 0.8 % (0-4.5); HEMATOCRIT 32.9 % (32.4-45.2); HEMOGLOBIN 10.7 GM/dL (10.7-15.3); MCH 27.4 pg (25.7-33.7); MCHC 32.6 g/dl (32.0-36.0); MEAN CELL VOLUME 83.8 fl (80-96); MEAN PLT VOLUME 8.1 fl (7.5-11.1); MONO % 6.5 % (3.8-10.2); PLATELET COUNT 328 K/MM3 (134-434); RBC 3.93 M/mm3 (3.60-5.2); RDW 15.4 % (11.6-15.6); WHITE BLOOD COUNT 7.1 K/mm3 (4.0-10.0)
[2018-06-27 08:07] LABS: ANION GAP 7 MMOL/L (8-16); BLOOD UREA NITROGEN 8 mg/dL (7-18); CALCIUM 9.1 mg/dL (8.5-10.1); CHLORIDE 108 mmol/L (98-107); CO2 25 mmol/L (21-32); CREATININE 0.7 mg/dL (0.55-1.3); GLUCOSE,RANDOM 121 mg/dL (74-106); MAGNESIUM 2.3 mg/dL (1.8-2.4); PHOSPHOROUS 3.2 mg/dL (2.5-4.9); POTASSIUM 4.1 mmol/L (3.5-5.1); SODIUM 139 mmol/L (136-145)
[2018-06-27] MEDS ORDERED: ONDANSETRON 4 MG/2 ML VIAL ONE (08:40)
[2018-06-27] MEDS ORDERED: morphine SULFATE 4 MG/ML VIAL IVPUSH PRN (09:00)
--- NOTE | 2018-06-27 10:13 | CON.CARD ---
Consult Consult Specialty:: Cardiology Referred by:: Medicine Reason for Consultation:: chest pain - History of Present Illness Chief Complaint: chest pain History of Present Illness: 47F h/o HLD, chronic migraines, chest pain s/p cath with normal cors 2017 at [facility] p/w chest pain since Monday. Patient of Dr. Kemp. Has prior history of chest pain with normal cath 2016, had no chest pain recently until Monday night. Has been constant since then, no radiation, no associated symptoms. Worse with lying down flat, feels it's harder to breathe, better with rubbing her chest. Feels better this AM, this morning feels nauseated after getting pain meds. - Alcohol/Substance Use Hx Alcohol Use: No - Smoking History Smoking history: Former smoker Have you smoked in the past 12 months: No Aproximately how many cigarettes per day: 0 If you are a former smoker, when did you quit?: 15 years ago - Social History ADL: Independent History of Recent Travel: No Home Medications - Allergies Allergies/Adverse Reactions: Allergies Allergy/AdvReac Type Severity Reaction Status Date / Time No Known Allergies Allergy Verified 06/27/18 09:53 - Home Medications Home Medications: Ambulatory Orders Atorvastatin 40 mg PO DAILY 03/24/18 Cyclobenzaprine HCl [Flexeril 10 mg] 5 mg PO DAILY 06/11/18 Family Disease History - Family Disease History Family History: Unremarkable Review of Systems - Review of Systems Constitutional: reports: No Symptoms Eyes: reports: No Symptoms HENT: reports: No Symptoms Neck: reports: No Symptoms Cardiovascular: reports: No Symptoms Respiratory: reports: No Symptoms Gastrointestinal: reports: No Symptoms Genitourinary: reports: No Symptoms Musculoskeletal: reports: No Symptoms Integumentary: reports: No Symptoms Neurological: reports: No Symptoms Endocrine: reports: No Symptoms Hematology/Lymphatic: reports: No Symptoms Psychiatric: reports: No Symptoms Vital Signs: Vital Signs Temperature 97.8 F 06/27/18 06:41 Pulse Rate 74 06/27/18 06:41 Respiratory Rate 18 06/27/18 09:00 Blood Pressure 115/78 06/27/18 06:41 O2 Sat by Pulse Oximetry (%) 98 06/27/18 09:00 Constitutional: Yes: Well Nourished, No Distress, Calm Eyes: Yes: Conjunctiva Clear, EOM Intact HENT: Yes: Atraumatic, Normocephalic Neck: Yes: Supple, Trachea Midline Respiratory: Yes: Regular, CTA Bilaterally Gastrointestinal: Yes: Normal Bowel Sounds, Soft Cardiovascular: Yes: Regular Rate and Rhythm JVD: No Carotid Bruit: No PMI: Non-Displaced Heart Sounds: Yes: S1, S2 Murmur: No: Systolic Murmur Musculoskeletal: No: Back Pain Extremities: No: Cold Edema: No Peripheral Pulses WNL: Yes Peripheral Pulses: 2+ Left Doralis Pedis, 2+ Right Dorsalis Pedis Integumentary: No: Jaundice Neurological: Yes: Alert, Oriented Psychiatric: No: Agitated - Other Data Labs, Other Data: CBC, BMP 06/27/18 07:10 06/27/18 07:10 INR, PTT INR 0.99 (0.83-1.09) 06/26/18 19:22 Troponin, BNP 06/26/18 06/26/18 06/27/18 19:22 22:40 02:39 Troponin I < 0.02 0.06 H < 0.02 Troponin, BNP 06/26/18 06/26/18 06/27/18 19:22 22:40 02:39 Troponin I < 0.02 0.06 H < 0.02 Assessment/Plan EKG: sinus, nl intervals, no ischemia CXR: no acute process chest pain - atypical for ACS, constant for 3 days, no ischemia on EKG, trop neg x 3 - echo and exercise stress pending, if benign findings no further inpatient workup HLD - cont atorvastatin migraines - manage per primary
--- NOTE | 2018-06-27 10:29 | PN ---
Progress Note, Physician - Current Medication List Current Medications: Active Medications Aspirin (Asa -) 81 mg PO DAILY [facility] Atorvastatin Calcium (Lipitor -) 40 mg PO HS [facility] Dextrose/Sodium Chloride (D5-1/2ns -) 1,000 mls @ 75 mls/hr IV ASDIR AMERICA Last Admin: 06/27/18 06:29 Dose: 75 mls/hr Morphine Sulfate (Morphine Sulfate) 4 mg IVPUSH Q4H PRN PRN Reason: PAIN LEVEL 7 - 10 - Objective Vital Signs: Vital Signs Temperature 97.8 F 06/27/18 06:41 Pulse Rate 74 06/27/18 06:41 Respiratory Rate 18 06/27/18 09:00 Blood Pressure 115/78 06/27/18 06:41 O2 Sat by Pulse Oximetry (%) 98 06/27/18 09:00 Cardiovascular: Yes: Regular Rate and Rhythm Respiratory: Yes: Regular, CTA Bilaterally Gastrointestinal: Yes: Normal Bowel Sounds, Soft Labs: CBC, BMP 06/27/18 07:10 06/27/18 07:10 INR, PTT INR 0.99 (0.83-1.09) 06/26/18 19:22 Problem List - Problems (1) Atypical chest pain Assessment/Plan: CE NEGATIVE CARDIO CONSULT STRESS TEST AND ECHO Code(s): R07.89 - OTHER CHEST PAIN (2) HLD (hyperlipidemia) Code(s): E78.5 - HYPERLIPIDEMIA, UNSPECIFIED
--- NOTE | 2018-06-27 10:33 | EKG ---
Test Reason : Blood Pressure : / mmHG Vent. Rate : 088 BPM Atrial Rate : 088 BPM P-R Int : 174 ms QRS Dur : 092 ms QT Int : 386 ms P-R-T Axes : 065 068 062 degrees QTc Int : 467 ms SINUS RHYTHM WITH PREMATURE ATRIAL COMPLEXES WITH ABERRANT CONDUCTION OTHERWISE NORMAL ECG WHEN COMPARED WITH ECG OF 24-AUG-2017 18:11, ABERRANT CONDUCTION IS NOW PRESENT Confirmed by BETINA ARAUJO, TAB ([id number]) on 06/27/2018 10:33:00 AM Referred By: Confirmed By:TAB MOFFETT MD
[2018-06-27] MEDS ORDERED: PANTOPRAZOLE SODIUM 40 MG VIAL ONE (13:05)
[2018-06-27] MEDS: PANTOPRAZOLE SODIUM 40 MG VIAL IVPUSH SCH ×2 (13:07→21:37)
--- NOTE | 2018-06-27 15:15 | ECHO ---
Name: RAZ NOBLE Exam:Adult Echocardiogram Study Date: 06/27/2018 02:04 PM Age: 47 yrs Reason For Study: CHEST PAIN Height: 67 in Weight: 233 lb BSA: 2.2 m2 MMode/2D Measurements & Calculations IVSd: 0.87 cm Ao root diam: 2.3 cm LVIDd: 4.3 cm LA dimension: 3.6 cm LVIDs: 2.7 cm LVPWd: 0.70 cm EDV(Teich): 85.3 ml LVOT diam: 2.0 cm ESV(Teich): 26.9 ml Doppler Measurements & Calculations MV E max yayo: 84.9 cm/sec Ao V2 max: 133.8 cm/sec MV A max yayo: 59.7 cm/sec Ao max P.2 mmHg MV E/A: 1.4 Ao V2 mean: 93.5 cm/sec MV dec time: 0.25 sec Ao mean P.0 mmHg Ao V2 VTI: 31.0 cm KENDRA(I,D): 2.4 cm2 KENDRA(V,D): 2.2 cm2 LV V1 max P.3 mmHg SV(LVOT): 74.2 ml LV V1 mean P.8 mmHg LV V1 max: 90.8 cm/sec LV V1 mean: 63.6 cm/sec LV V1 VTI: 22.6 cm Med Peak E' Yayo: 10.4 cm/sec Med E/e': 8.1 Lat Peak E' Yayo: 12.2 cm/sec Lat E/e': 6.9 Procedure A two-dimensional transthoracic echocardiogram with color flow and Doppler was performed. Left Ventricle The left ventricular size, thickness and function are normal. The left ventricular ejection fraction is normal. Left Ventricular Filling pattern is normal for age. The left ventricular wall motion is homero l. Right Ventricle The right ventricle is normal in size and function. Atria Normal left and right atrial size and function. Mitral Valve There is mild mitral valve thickening. There is no mitral valve stenosis. There is trace to mild mitr al regurgitation. Tricuspid Valve The tricuspid valve is not well visualized, but is grossly normal. There is no tricuspid stenosis. Th ere was insufficient TR detected to calculate RV systolic pressure. Aortic Valve The aortic valve is normal in structure and function. No hemodynamically significant valvular aortic stenosis. No aortic regurgitation is present. Pulmonic Valve The pulmonic valve is not well visualized. Great Vessels The aortic root is normal size. Pericardium/Pleura There is no pericardial effusion. Interpretation Summary Clinical correlation is recommended. The left ventricular size, thickness and function are normal The left ventricular ejection fraction is normal. There is trace to mild mitral regurgitation. There was insufficient TR detected to calculate RV systolic pressure. Clinical correlation is recommended. Left Ventricular Filling pattern is normal for age. MD Javi Moser 06/27/2018 03:15 PM
[2018-06-27] MEDS ORDERED: ONDANSETRON 4 MG/2 ML VIAL IVPUSH PRN (20:36)
[2018-06-27] MEDS ORDERED: ATORVASTATIN CA 40 MG TABLET (FP) PO SCH (22:00)
[2018-06-28 01:15] VITALS: BMI 36.5
[2018-06-28 05:30] VITALS: PULSE 77; TEMP 98
[2018-06-28] MEDS ORDERED: ASPIRIN 81 MG CHEWABLE TABLETS PO SCH (10:00)
[2018-06-28] MEDS: PANTOPRAZOLE SODIUM 40 MG VIAL IVPUSH SCH (12:04)
--- NOTE | 2018-06-28 12:24 | TRE ---
Protocol Name : CHANA Max Work Load (METS*10) : 84 Time In Exercise Phase : 00:06:58 Max. Systolic BP : 168 mmHg Max Diastolic BP : 75 mmHg Max Heart Rate : 166 BPM Max Predicted Heart Rate : 172 BPM Attending Physician : Reason For Termination : Target Heart Rate Achieved Reason for Test : CHEST PAIN Stress Protocol : CHANA Rest HR : 91 BPM PeakEx METs : 8.4 METS Recovery ECG Response (OLD) : Diagnosis : Baseline ecg shows sr. Normal bp and hr response to exercise. No anginal symptoms with exercise. No ischemic ecg changes or arrhythmias with exercise. Normal exercise stress ecg. Confirmed by KENAN SANCHEZ MD ([id number]) on 06/28/2018 12:23:20 PM
--- NOTE | 2018-06-28 12:25 | PN ---
Progress Note (short form) - Note Progress Note: s: no cp sob palps dizzy o: Vital Signs Period Temp Pulse Resp BP Sys/Guzmán Pulse Ox Last 24 Hr 97.5 F-98 F 18-89 18-20 116-133/62-81 100-100 Constitutional: Yes: Well Nourished, No Distress, Calm Eyes: Yes: Conjunctiva Clear Neck: Yes: Supple, Trachea Midline Respiratory: Yes: Regular, CTA Bilaterally Gastrointestinal: Yes: Normal Bowel Sounds, Soft Cardiovascular: Yes: Regular Rate and Rhythm JVD: No Heart Sounds: Yes: S1, S2 Murmur: No: Systolic Murmur Extremities: No: Cold Edema: No Peripheral Pulses: 2+ Left Doralis Pedis, 2+ Right Dorsalis Pedis Integumentary: No: Jaundice Neurological: Yes: Alert, Oriented Psychiatric: No: Agitated Current Medications Generic Name Dose Route Start Last Admin Trade Name Freq PRN Reason Stop Dose Admin Aspirin 81 mg 06/28/18 10:00 06/28/18 12:04 Asa - PO 81 mg DAILY AMERICA Administration Atorvastatin Calcium 40 mg 06/27/18 22:00 06/27/18 21:42 Lipitor - PO Not Given HS AMERICA Morphine Sulfate 4 mg 06/27/18 09:00 Morphine Sulfate IVPUSH Q4H PRN PAIN LEVEL 7 - 10 Ondansetron HCl 4 mg 06/27/18 20:36 06/27/18 21:36 Zofran Injection IVPUSH 4 mg Q6H PRN Administration NAUSEA Pantoprazole Sodium 40 mg 06/27/18 13:00 06/28/18 12:04 Protonix Iv IVPUSH 40 mg BID AMERICA Administration CBC, BMP 06/27/18 07:10 06/27/18 07:10 tele: sr echo 06/2018: nl lv/rv no sig valve path ett 06/2018: no ischemic findings EKG: sinus, nl intervals, no ischemia CXR: no acute process Assessment/Plan chest pain - atypical for ACS, constant for 3 days, no ischemia on EKG, trop neg x 3, resolved now - echo and ett both benign, no further cardiac testing needed at this time HLD - cont atorvastatin migraines - manage per primary cardiac cowan stable for dc
--- NOTE | 2018-06-28 12:47 | DS ---
Physical Examination Vital Signs: Vital Signs Temperature 98 F 06/28/18 05:00 Pulse Rate 77 06/28/18 05:00 Respiratory Rate 20 06/28/18 06:00 Blood Pressure 117/62 06/28/18 05:00 O2 Sat by Pulse Oximetry (%) 100 06/28/18 06:00 Constitutional: Yes: Calm Cardiovascular: Yes: Regular Rate and Rhythm, S1, S2 Respiratory: Yes: CTA Bilaterally Gastrointestinal: Yes: Normal Bowel Sounds, Soft Edema: No Neurological: Yes: Alert, Oriented Labs: CBC, BMP 06/27/18 07:10 06/27/18 07:10 Discharge Summary Reason For Visit: MIDSTERNAL CHEST PAIN Current Active Problems Chest pain (Acute) HLD (hyperlipidemia) (Acute) Hx of migraines (Acute) Hospital Course: CHIEF COMPLAINT: Chest Pain PCP: Dr. Soto HISTORY OF PRESENT ILLNESS: This is a 47 y/o woman with a PMHx of: HLD, Chronic Migraines, s/p Cardiac Cath ([facility], 2017). Who presents to the ED with CP x last night. ER course was notable for: (1) troponin neg x3 admitted to telemetry echo and stress test negative aspirin and statin Condition: Fair - Instructions - Home Medications Comprehensive Discharge Medication List: Ambulatory Orders Atorvastatin 40 mg PO DAILY 03/24/18 Cyclobenzaprine HCl [Flexeril 10 mg] 5 mg PO DAILY 06/11/18
[2018-06-28 13:23] VITALS: BP 127/72
--- NOTE | 2018-06-29 10:57 | EKG ---
Test Reason : Blood Pressure : / mmHG Vent. Rate : 075 BPM Atrial Rate : 075 BPM P-R Int : 182 ms QRS Dur : 086 ms QT Int : 408 ms P-R-T Axes : 062 059 053 degrees QTc Int : 455 ms NORMAL SINUS RHYTHM NORMAL ECG WHEN COMPARED WITH ECG OF 26-JUN-2018 19:19, ABERRANT CONDUCTION IS NO LONGER PRESENT Confirmed by CAROLE ACE MD ([id number]) on 06/29/2018 10:56:50 AM Referred By: Confirmed By:CAROLE ACE MD
== END 2018-06-28 14:40 | disposition home or self-care (01) ==
LOC: JER 19:11 → JERBED 06-27 04:51 → J4W 06-27 19:36
PROVIDERS: ADMIT Family Medicine; ATTEND Family Medicine
PROC: 3E033NZ Introduction of Analgesics, Hypnotics, Sedatives into Peripheral Vein, Percutaneous Approach (ICD-10-PCS; principal; 2018-06-27)
PROC: 3E0337Z Introduction of Electrolytic and Water Balance Substance into Peripheral Vein, Percutaneous Approach (ICD-10-PCS; 2018-06-27)
PROC: 3E033GC Introduction of Other Therapeutic Substance into Peripheral Vein, Percutaneous Approach (ICD-10-PCS; 2018-06-27)
DX: R07.89 Other chest pain (principal); K21.9 Gastro-esophageal reflux disease without esophagitis; E78.5 Hyperlipidemia, unspecified; Z87.891 Personal history of nicotine dependence; Z98.61 Coronary angioplasty status; Z86.69 Personal history of other diseases of the nervous system and sense organs
CPT/HCPCS: 36415; 71046-TC-FY; 80048; 80053; 82550; 83735; 84100; 84484; 85025; 85610; 93005; 93010; 93017; 93018; 93306-TC; 96365; 96375; 99285-25; G0378

== ENCOUNTER 2018-08-01 16:52 | Emergency (ER) | payer OTHER | END 2018-08-01 17:59 | disposition home or self-care (01) | LOC: JERFT 16:52 ==

== ENCOUNTER 2018-10-24 18:12 | Emergency (ER) | payer OTHER ==
--- NOTE | 2018-10-24 18:24 | PDOC ---
Rapid Medical Evaluation Time Seen by Provider: 10/24/18 18:21 Medical Evaluation: Allergies Allergy/AdvReac Type Severity Reaction Status Date / Time No Known Allergies Allergy Verified 10/22/18 15:33 10/24/18 18:22 I have performed a brief in-person evaluation of this patient. The patient presents with a chief complaint of:OSCAR. H/o migraine per pt. Saw her neurologist this am and given dose of toradol and "a nerve block" with no relief. Also took dose of flexeril at home today w/ no relief Pertinent physical exam findings:Stable and in NAD I have ordered the following:upreg The patient will proceed to the ED for further evaluation. Discharge Disposition - Diagnosis Headache Qualifiers: Headache type: unspecified Headache chronicity pattern: chronic headache Intractability: intractable Qualified Code(s): R51 - Headache - Referrals - Patient Instructions - Post Discharge Activity
[2018-10-24 18:25] VITALS: BMI 37.1
[2018-10-24] MEDS ORDERED: KETOROLAC TROMETHAMINE 60 MG/2 ML VIAL IM ONE (20:29)
[2018-10-24] MEDS ORDERED: METOCLOPRAMIDE HCL INJECTION 10 MG/2 ML VIAL IVPB ONE (20:30)
[2018-10-24] MEDS ORDERED: SODIUM CHLORIDE 0.9% 500 ML INFUS.BAG IV ONE (20:30)
--- NOTE | 2018-10-24 20:38 | PDOC ---
History of Present Illness - General Chief Complaint: Headache Stated Complaint: MIGRANE Time Seen by Provider: 10/24/18 18:21 - History of Present Illness Initial Comments: Ms. Choudhury is a 48 y/o female with PMH of migraines, HLD, chest pain, presenting today with headache. Reports that the headache started on Monday. Describes headache as stabbing in quality. Pain is bilateral. Reports muscle tightness in her neck. States that this headache is similar to her prior migraine headaches, and she has been to the ED multiple times for treatment of breakthrough migraine pain. Went to see her neurologist today for botox injections for migraines, but states that the pain got worse this evening. Denies any changes in the headache from prior. Denies that this is the worst in her life. No changes in vision. No photophobia/phonophobia. No dizziness. No nausea/vomiting. No fever. Denies chest pain/shortness of breath/abdominal pain/dysuria. PMH: migraines SurgHx: s/p cath Meds: statin, botox injections Past History - Past Medical History Allergies/Adverse Reactions: Allergies Allergy/AdvReac Type Severity Reaction Status Date / Time No Known Allergies Allergy Verified 10/24/18 18:25 Home Medications: Ambulatory Orders Atorvastatin 40 mg PO DAILY 03/24/18 Cyclobenzaprine HCl [Flexeril 10 mg] 10 mg PO PRN PRN 10/24/18 Cardiac Disorders: Yes (pericarditis) COPD: No DVT: No GI Disorders: Yes (GERD) Hypercholesterolemia: Yes Other medical history: migraines - Immunization History Immunization Up to Date: Yes - Suicide/Smoking/Psychosocial Hx Smoking Status: No Smoking History: Never smoked Have you smoked in the past 12 months: No Number of Cigarettes Smoked Daily: 0 If you are a former smoker, when did you quit?: 15 years ago Hx Alcohol Use: No Drug/Substance Use Hx: No Substance Use Type: None Hx Substance Use Treatment: No Review of Systems - Review of Systems Comments:: GENERAL/CONSTITUTIONAL: No fever or chills. No weakness._ HEAD, EYES, EARS, NOSE AND THROAT: No change in vision. No change in hearing. No sore throat._ CARDIOVASCULAR: No chest pain or shortness of breath_ RESPIRATORY: Denies cough, hemoptysis_ GASTROINTESTINAL: No nausea, vomiting, diarrhea or constipation._ GENITOURINARY: No dysuria, frequency, or change in urination._ MUSCULOSKELETAL: No joint or muscle swelling or pain. No neck or back pain._ SKIN: No rash_ NEUROLOGIC: Reports headache. No vertigo, loss of consciousness, or change in strength/sensation._ ENDOCRINE: No increased thirst. No abnormal weight change_ HEMATOLOGIC/LYMPHATIC: No anemia, easy bleeding, or history of blood clots._ ALLERGIC/IMMUNOLOGIC: No hives or skin allergy._ *Physical Exam - Vital Signs Last Vital Signs Temp Pulse Resp BP Pulse Ox 98.5 F 96 H 18 135/85 99 10/24/18 18:22 10/24/18 18:22 10/24/18 18:22 10/24/18 18:22 10/24/18 18:22 - Physical Exam Comments: GENERAL: Awake, alert, and oriented to person/place/time, in no acute distress_ HEAD: No signs of trauma, normocephalic, atraumatic _ EYES: PERRLA, EOMI, sclera anicteric, conjunctiva clear_ ENT: Hearing grossly normal, nares patent, oropharynx clear without exudates. No uvular deviation. Moist mucosa_ NECK: Normal ROM, supple, no lymphadenopathy, JVD, or masses_ LUNGS: No distress, speaks in full sentences, clear to auscultation bilaterally _ HEART: Regular rate and rhythm, normal S1 and S2, no murmurs appreciated, peripheral pulses normal and equal bilaterally._ ABDOMEN: Soft, nontender, normoactive bowel sounds. No guarding, no rebound. No masses_ EXTREMITIES: Normal inspection, Normal range of motion, no edema. No clubbing or cyanosis_ NEUROLOGICAL: Cranial nerves II through XII grossly intact. No slurred speech or dysarthria. Romberg's negative. Normal gait. No ataxia. Cerebellar testing intact. 5/5 strength and sensation in upper/lower extremities. SKIN: Warm, Dry, normal turgor, no rashes or lesions noted_ ED Treatment Course - LABORATORY CBC & Chemistry Diagram: 10/24/18 20:20 10/24/18 22:30 Medical Decision Making - Medical Decision Making 10/24/18 20:00 48F with hx of migraines presenting today with headache that is similar to her prior. Follows with neurologist and receives botox injections, but has been to ED before for breakthrough pain. No changes in quality of headache. No Obtain CBC, CMP, urine . Will give toradol, benadryl, reglan, fluids for migraine. 10/25/180 Patient reassessed. Reports that pain has much improved after meds and fluids. Plan to d/c home to f/u with her neurologist at [facility]. *DC/Admit/Observation/Transfer Diagnosis at time of Disposition: Headache Qualifiers: Headache type: unspecified Headache chronicity pattern: chronic headache Intractability: intractable Qualified Code(s): R51 - Headache - Discharge Dispostion Disposition: HOME Condition at time of disposition: Stable - Referrals Referrals: Chantel Soto MD [Primary Care Provider] - - Patient Instructions Printed Discharge Instructions: DI for Migraine Additional Instructions: Please stay hydrated and avoid wine. Please take your medications as prescribed. Please return to the ED if you have any new or worsening symptoms. - Post Discharge Activity
--- NOTE | 2018-10-24 20:53 | PDOC ---
Documentation entered by Patel Schulte SCRIBE, acting as scribe for Alfonso Marrero MD. Alfonso Marrero MD: This documentation has been prepared by the E[employer] box Daniel, SCRIBE, under my direction and personally reviewed by me in its entirety. I confirm that the documentation accurately reflects all work, treatment, procedures, and medical decision making performed by me. Attending Attestation - Resident Resident Name: Napoleon Alegriahan - ED Attending Attestation I have performed the following: I have examined & evaluated the patient, The case was reviewed & discussed with the resident, I agree w/resident's findings & plan, Exceptions are as noted - HPI HPI: 10/24/18 20:27 The patient is a 48 year old female with a past medical history of HLD, cardiac cath (2017 at [facility]), and migraines here today for evaluation of headache. The patient reports that she follows with a neurologist at [facility] and receives botox injections every 3 months. She states that her current headache began monday () and she received toradol and nerve block injections at her neurologist's office. She states that her current headache is similar to her usual migraines but worse. Patient denies lightheadedness, blurry vision. Denies fever, chills. Denies chest pain, shortness of breath. Denies nause, vomiting, diarrhea. Denies numbness, tingling. Allergies: NKA PCP: Chantel Soto - Physicial Exam PE: 10/24/18 20:33 GENERAL: Awake, alert, and fully oriented, in no acute distress HEAD: No signs of trauma EYES: PERRLA, EOMI, sclera anicteric, conjunctiva clear ENT: Auricles normal inspection, hearing grossly normal, nares patent, oropharynx clear without exudates. Moist mucosa NECK: Normal ROM, supple, no lymphadenopathy, JVD, or masses LUNGS: Breath sounds equal, clear to auscultation bilaterally. No wheezes, and no crackles HEART: Regular rate and rhythm, normal S1 and S2, no murmurs, rubs or gallops ABDOMEN: Soft, nontender, normoactive bowel sounds. No guarding, no rebound. No masses EXTREMITIES: Normal range of motion, no edema. No clubbing or cyanosis. No cords, erythema, or tenderness NEUROLOGICAL: Cranial nerves II through XII grossly intact. Normal speech, normal gait SKIN: Warm, Dry, normal turgor, no rashes or lesions noted. - Medical Decision Making 10/24/18 20:52 Headache x 3 days in pt with prior migraines Seen by neurologist in office today, received occipital nerve block persistent OSCAR normal neuro exam afebrile no indication for imaging andi crawford reassess
[2018-10-24 21:04] VITALS: BP 128/83; PULSE 68; TEMP 98.4
[2018-10-24] MEDS ORDERED: METOCLOPRAMIDE HCL INJECTION 10 MG/2 ML VIAL ONE (21:06)
[2018-10-24] MEDS ORDERED: KETOROLAC TROMETHAMINE 60 MG/2 ML VIAL ONE (21:07)
[2018-10-24 21:51] LABS: MCH 27.2 pg (25.7-33.7); WHITE BLOOD COUNT 10.3 K/mm3 (4.0-10.0)
[2018-10-24 22:01] LABS: BASO % 1.1 % (0-2.0); EOS % 1.9 % (0-4.5); HEMATOCRIT 33.3 % (32.4-45.2); HEMOGLOBIN 10.7 GM/dL (10.7-15.3); LYMPH % 40.1 % (8-40); MCHC 32.2 g/dl (32.0-36.0); MEAN CELL VOLUME 84.4 fl (80-96); MEAN PLT VOLUME 9.2 fl (7.5-11.1); MONO % 4.6 % (3.8-10.2); NEUT % 52.3 % (42.8-82.8); RBC 3.94 M/mm3 (3.60-5.2)
[2018-10-24] MEDS ORDERED: KETOROLAC TROMETHAMINE 15 MG/ML VIAL IVPUSH ONE (22:17)
[2018-10-24] MEDS ORDERED: KETOROLAC TROMETHAMINE 15 MG/ML VIAL ONE (22:18)
[2018-10-24 23:05] LABS: BILIRUBIN,TOTAL 0.2 mg/dL (0.2-1); BLOOD UREA NITROGEN 11.1 mg/dL (7-18); CALCIUM 8.9 mg/dL (8.5-10.1); CREATININE 0.8 mg/dL (0.55-1.3); POTASSIUM 3.6 mmol/L (3.5-5.1); TOT PROT 6.4 g/dl (6.4-8.2)
== END 2018-10-24 23:31 | disposition home or self-care (01) ==
LOC: JER 18:12
PROC: 3E033GC Introduction of Other Therapeutic Substance into Peripheral Vein, Percutaneous Approach (ICD-10-PCS; principal; 2018-10-24)
PROC: 3E0333Z Introduction of Anti-inflammatory into Peripheral Vein, Percutaneous Approach (ICD-10-PCS; 2018-10-24)
PROC: 3E0337Z Introduction of Electrolytic and Water Balance Substance into Peripheral Vein, Percutaneous Approach (ICD-10-PCS; 2018-10-24)
DX: R51 Headache (principal); Z87.891 Personal history of nicotine dependence; K21.9 Gastro-esophageal reflux disease without esophagitis; E78.00 Pure hypercholesterolemia, unspecified
CPT/HCPCS: 36415; 80053; 84703; 85025; 99282-25

== ENCOUNTER 2018-11-06 18:15 | Emergency (ER) | payer OTHER ==
[2018-11-06 18:22] VITALS: BP 141/81; PULSE 92; TEMP 99; BMI 36.0
[2018-11-06] MEDS ORDERED: KETOROLAC TROMETHAMINE 60 MG/2 ML VIAL IM ONE (18:38)
--- NOTE | 2018-11-06 18:41 | PDOC ---
History of Present Illness - General Chief Complaint: Headache Stated Complaint: MIGRAINE Time Seen by Provider: 11/06/18 18:35 - History of Present Illness Initial Comments: 11/06/18 18:38 48 y/o F presents for evaluation of headache which started today. She has chronic migraines and this headache is typical of her usual headache without change in intensity or character Past History - Past Medical History Allergies/Adverse Reactions: Allergies Allergy/AdvReac Type Severity Reaction Status Date / Time No Known Allergies Allergy Verified 11/06/18 18:22 Home Medications: Ambulatory Orders Atorvastatin 40 mg PO DAILY 03/24/18 Cyclobenzaprine HCl [Flexeril 10 mg] 10 mg PO PRN PRN 10/24/18 Cardiac Disorders: Yes (pericarditis) COPD: No DVT: No GI Disorders: Yes (GERD) Hypercholesterolemia: Yes - Immunization History Immunization Up to Date: Yes - Suicide/Smoking/Psychosocial Hx Smoking Status: No Smoking History: Never smoked Have you smoked in the past 12 months: No Number of Cigarettes Smoked Daily: 0 If you are a former smoker, when did you quit?: 15 years ago Hx Alcohol Use: Yes Drug/Substance Use Hx: No Substance Use Type: None Hx Substance Use Treatment: No Review of Systems - Review of Systems Neurological: Yes: Headache *Physical Exam - Vital Signs Last Vital Signs Temp Pulse Resp BP Pulse Ox 99.0 F 92 H 16 141/81 99 11/06/18 18:20 11/06/18 18:20 11/06/18 18:20 11/06/18 18:20 11/06/18 18:20 - Physical Exam Comments: 11/06/18 18:39 HEAD: NC/AT EYES: Conjuntiva clear MS: Full ROM in all joints without edema NEUROLOGIC: No gross sensory or motor deficits, NVID SKIN: Normal color and temperature no lesions or rashes Medical Decision Making - Medical Decision Making 11/06/18 18:40 will treat with usual medications. Pt warned about the chronic use of torodol *DC/Admit/Observation/Transfer Diagnosis at time of Disposition: Headache, Status migrainosus without intractable migraine - Discharge Dispostion Disposition: HOME Condition at time of disposition: Stable Decision to Admit order: No - Referrals Referrals: Chantel Soto MD [Primary Care Provider] - - Patient Instructions Additional Instructions: Please follow up with your neurologist as schedule tomorrow for further evaluation and treatment options of you migraines. Return to the emergency room should symptoms worsen or return . - Post Discharge Activity
[2018-11-06] MEDS ORDERED: KETOROLAC TROMETHAMINE 60 MG/2 ML VIAL ONE (18:50)
== END 2018-11-06 19:14 | disposition home or self-care (01) ==
LOC: JERFT 18:15
PROC: 3E023GC Introduction of Other Therapeutic Substance into Muscle, Percutaneous Approach (ICD-10-PCS; principal; 2018-11-06)
PROC: 3E0233Z Introduction of Anti-inflammatory into Muscle, Percutaneous Approach (ICD-10-PCS; 2018-11-06)
DX: G43.801 Other migraine, not intractable, with status migrainosus (principal)
CPT/HCPCS: 96372; 99281-25

== ENCOUNTER 2018-11-17 07:34 | Emergency (ER) | payer OTHER ==
[2018-11-17 07:39] VITALS: BP 125/57; PULSE 89; TEMP 97.9; BMI 36.0
[2018-11-17] MEDS ORDERED: KETOROLAC TROMETHAMINE 60 MG/2 ML VIAL IM ONE (07:46)
--- NOTE | 2018-11-17 08:04 | PDOC ---
History of Present Illness - General Chief Complaint: Migraine Headache Stated Complaint: MIGRAINE History Source: Patient Exam Limitations: No Limitations - History of Present Illness Initial Comments: 11/17/18 08:00 48-year-old female with history of chronic migraines under the care of neurologist receiving routine Botox injections presents today with her typical migraine pattern which she describes a bandlike pressure across her forehead radiating to her temporal and occipital region. Patient denies any abnormal symptoms such as dizziness, visual changes, fever, weakness, or rash. 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 Timing/Duration: reports: 4-6 hours Severity: Yes: mild Associated Symptoms: reports: other Past History - Travel Traveled outside of the country in the last 30 days: No Close contact w/someone who was outside of country & ill: No - Past Medical History Allergies/Adverse Reactions: Allergies Allergy/AdvReac Type Severity Reaction Status Date / Time No Known Allergies Allergy Verified 11/06/18 18:22 Home Medications: Ambulatory Orders Atorvastatin 40 mg PO DAILY 03/24/18 Cyclobenzaprine HCl [Flexeril 10 mg] 10 mg PO PRN PRN 10/24/18 Cardiac Disorders: Yes (pericarditis) COPD: No DVT: No GI Disorders: Yes (GERD) Hypercholesterolemia: Yes Other medical history: MIGRAINES - Immunization History Immunization Up to Date: Yes - Suicide/Smoking/Psychosocial Hx Smoking Status: No Smoking History: Never smoked Have you smoked in the past 12 months: No Number of Cigarettes Smoked Daily: 0 If you are a former smoker, when did you quit?: 15 years ago Hx Alcohol Use: No Drug/Substance Use Hx: No Substance Use Type: None Hx Substance Use Treatment: No Patient Lives Alone: No Lives with/in: spouse/SO Neuro Specific PMHX - Complaint Specific PMHX Glaucoma: No Herniated Disk: No Laminectomy: No Migraine: Yes Review of Systems - Review of Systems Able to Perform ROS?: Yes Constitutional: No: Symptoms Reported HEENTM: No: Symptoms Reported Respiratory: No: Symptoms reported Cardiac (ROS): No: Symptoms Reported ABD/GI: No: Nausea : No: Dysuria Musculoskeletal: No: Symptoms Reported Integumentary: No: Symptoms Reported Neurological: Yes: Headache. No: Weakness, Dizziness Endocrine: No: Symptoms Reported Hematologic/Lymphatic: No: Symptoms Reported *Physical Exam - Vital Signs Last Vital Signs Temp Pulse Resp BP Pulse Ox 97.9 F 89 14 125/57 L 98 11/17/18 07:37 11/17/18 07:37 11/17/18 07:37 11/17/18 07:37 11/17/18 07:37 - Physical Exam General Appearance: Yes: Nourished, Appropriately Dressed. No: Apparent Distress HEENT: positive: JOSE JUAN. negative: Pale Conjunctivae Neck: positive: Normal Thyroid Respiratory/Chest: positive: Lungs Clear, Normal Breath Sounds. negative: Respiratory Distress, Accessory Muscle Use Cardiovascular: positive: Regular Rhythm, Regular Rate. negative: Murmur Extremity: positive: Normal Inspection Integumentary: positive: Normal Color, Warm, Moist Neurologic: positive: Motor Strength 5/5 ( ambulatory) Medical Decision Making - Medical Decision Making 11/17/18 08:00 Chief complaint: Migraine for the past 4-5 hours patient with history of migraines and denies any change in migraine presentation or severity. Patient normally comes to the ER for injections of Benadryl and Toradol. Exam: Vital signs stable no neuro focal deficit Plan: Patient's labs reviewed from October 24 with normal creatinine level. Patient ordered for Toradol and Benadryl. Explained to patient the chronic use of Toradol along with precautions when receiving IM injections patient understands and requesting medications *DC/Admit/Observation/Transfer Diagnosis at time of Disposition: Migraine - Discharge Dispostion Disposition: HOME Condition at time of disposition: Good - Referrals - Patient Instructions Printed Discharge Instructions: DI for Migraine Additional Instructions: Please avoid migraine triggers and continue to take medication as prescribed along with following up with your neurologist. - Post Discharge Activity
[2018-11-17] MEDS ORDERED: KETOROLAC TROMETHAMINE 60 MG/2 ML VIAL ONE (08:16)
--- NOTE | 2018-11-17 08:18 | PDOC ---
*Physical Exam - Vital Signs Last Vital Signs Temp Pulse Resp BP Pulse Ox 97.9 F 89 14 125/57 L 98 11/17/18 07:37 11/17/18 07:37 11/17/18 07:37 11/17/18 07:37 11/17/18 07:37 Medical Decision Making - Medical Decision Making 11/17/18 08:12 Patient was seen by BOARD RUNNER Jeremie who performed the history and physical exam and has also dictated a record of this visit. Agree with BOARD RUNNER management and follow-up care instructions. For further details please see PA dictation. *DC/Admit/Observation/Transfer Diagnosis at time of Disposition: Migraine - Discharge Dispostion Disposition: HOME Condition at time of disposition: Good - Referrals - Patient Instructions Printed Discharge Instructions: DI for Migraine Additional Instructions: Please avoid migraine triggers and continue to take medication as prescribed along with following up with your neurologist. - Post Discharge Activity
== END 2018-11-17 08:33 | disposition home or self-care (01) ==
LOC: JER 07:34
PROC: 3E0233Z Introduction of Anti-inflammatory into Muscle, Percutaneous Approach (ICD-10-PCS; principal; 2018-11-17)
PROC: 3E023GC Introduction of Other Therapeutic Substance into Muscle, Percutaneous Approach (ICD-10-PCS; 2018-11-17)
DX: G43.909 Migraine, unspecified, not intractable, without status migrainosus (principal); E78.00 Pure hypercholesterolemia, unspecified; K21.9 Gastro-esophageal reflux disease without esophagitis
CPT/HCPCS: 96372; 99281-25

== ENCOUNTER 2018-12-09 13:36 | Emergency (ER) | payer OTHER ==
[2018-12-09 13:44] VITALS: BP 137/77; PULSE 89; TEMP 98.3; BMI 36.0
[2018-12-09] MEDS ORDERED: KETOROLAC TROMETHAMINE 60 MG/2 ML VIAL IM ONE (14:14)
[2018-12-09] MEDS ORDERED: KETOROLAC TROMETHAMINE 60 MG/2 ML VIAL ONE (14:16)
--- NOTE | 2018-12-09 14:58 | PDOC ---
History of Present Illness - General Chief Complaint: Headache Stated Complaint: MIGRAINE Time Seen by Provider: 12/09/18 13:50 History Source: Patient - History of Present Illness Timing/Duration: reports: other (today) Past History - Past Medical History Allergies/Adverse Reactions: Allergies Allergy/AdvReac Type Severity Reaction Status Date / Time No Known Allergies Allergy Verified 12/09/18 13:44 Home Medications: Ambulatory Orders Atorvastatin 40 mg PO DAILY 03/24/18 Cyclobenzaprine HCl [Flexeril 10 mg] 10 mg PO PRN PRN 10/24/18 Cardiac Disorders: Yes (pericarditis) COPD: No DVT: No GI Disorders: Yes (GERD) Hypercholesterolemia: Yes - Immunization History Immunization Up to Date: Yes - Psycho Social/Smoking Cessation Hx Smoking Status: No Smoking History: Never smoked Have you smoked in the past 12 months: No Number of Cigarettes Smoked Daily: 0 If you are a former smoker, when did you quit?: 15 years ago Hx Alcohol Use: No Drug/Substance Use Hx: No Substance Use Type: None Hx Substance Use Treatment: No Neuro Specific PMHX - Complaint Specific PMHX Glaucoma: No Herniated Disk: No Laminectomy: No Migraine: Yes Review of Systems - Review of Systems HEENTM: No: Blurred Vision ABD/GI: No: Nausea, Vomiting Neurological: Yes: Headache. No: Dizziness *Physical Exam - Vital Signs Last Vital Signs Temp Pulse Resp BP Pulse Ox 98.3 F 89 18 137/77 99 12/09/18 13:42 12/09/18 13:42 12/09/18 13:42 12/09/18 13:42 12/09/18 13:42 - Physical Exam Comments: 12/09/18 15:05 sitting on stretcher and texting on phone General Appearance: Yes: Appropriately Dressed. 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 Patient states current headache consistent with her usual headache. Was not home to take her muscle relaxant per pt. No dizziness, visual changes nausea or vomiting. Of note patient with numerous ER visits for headaches and states she is usually given an IM injection of Toradol and IM Benadryl of unclear reason. Patient specifically requesting IM injection of both meds. See exam Acute on chronic OSCAR Endorses h/o migraine w/ monthly botox injection Numerous ED visits for OSCAR, usually specifically requests toradol and "IM benadryl" I explained to patient that benadryl in the context of OSCAR is usually only given in conjunction with IV Reglan to prevent certain neurological reactions, i.e dystonia, etc, and that we can give her an IM dose of toradol but that benadryl is not indicated at this time. After given toradol, pt called me "an ass" and walked out of ER. Pt did sign discharge papers 12/09/18 15:07 Discharge - Discharge Information Problems reviewed: Yes Clinical Impression/Diagnosis: Headache Qualifiers: Headache type: unspecified Headache chronicity pattern: chronic headache Intractability: not intractable Qualified Code(s): R51 - Headache Disposition: HOME - Follow up/Referral Referrals: Chantel Soto MD [Primary Care Provider] - - Patient Discharge Instructions Additional Instructions: Please continue to follow-up with your neurologist for management of your chronic headache - Post Discharge Activity
== END 2018-12-09 14:26 | disposition home or self-care (01) ==
LOC: JERFT 13:36
PROC: 3E0233Z Introduction of Anti-inflammatory into Muscle, Percutaneous Approach (ICD-10-PCS; principal; 2018-12-09)
DX: G43.909 Migraine, unspecified, not intractable, without status migrainosus (principal); E78.00 Pure hypercholesterolemia, unspecified; K21.9 Gastro-esophageal reflux disease without esophagitis; Z86.79 Personal history of other diseases of the circulatory system
CPT/HCPCS: 96372; 99281-25

== ENCOUNTER 2019-01-04 14:58 | Emergency (ER) | payer OTHER ==
[2019-01-04 15:11] VITALS: BP 140/73; PULSE 85; TEMP 98.4; BMI 36.5
[2019-01-04] MEDS ORDERED: KETOROLAC TROMETHAMINE 15 MG/ML VIAL IM ONE (16:02)
[2019-01-04] MEDS ORDERED: diphenhydrAMINE HCL 25 MG CAPSULE (FP) PO ONE ×2 (16:02→16:16)
--- NOTE | 2019-01-04 16:02 | PDOC ---
History of Present Illness - General Chief Complaint: Migraine Headache Stated Complaint: MIGRANE Time Seen by Provider: 01/04/19 15:34 - History of Present Illness Initial Comments: 01/04/19 15:59 CHIEF COMPLAINT: migraine HISTORY OF PRESENT ILLNESS: 48 yo F with hx of chronic migraines, followed by a neurologist at [facility] who gives her Botox injections every two weeks along with Flexeril as her "rescue medicine." Patient describes that her headache started last night and feels exactly like her regular migraines of pressure across her forehead radiating to b/l temples. She notes that this began when she started eating pork rinds "because they're so salty." Patient denies any nausea, vomiting, visual changes, fever, chills. Patient notes that she usually gets IM Toradol and Benadryl for her migraines. No recent travel or sick contacts. PAST MEDICAL HISTORY: Denies past medical history FAMILY HISTORY: Denies SOCIAL HISTORY: Denies tobacco, alcohol, illicit drug use. SURGICAL HISTORY: Denies ALLERGIES: No known drug allergies REVIEW OF SYSTEMS General/Constitutional: Denies fever or chills. Denies weakness, weight change. HEENT: Denies change in vision. Denies ear pain or discharge. Denies sore throat. Cardiovascular: Denies chest pain or shortness of breath. Respiratory: Denies cough, wheezing, or hemoptysis. Gastrointestinal: Denies nausea, vomiting, diarrhea or constipation. Denies rectal bleeding. Genitourinary: Denies dysuria, frequency, or change in urination. Musculoskeletal: Denies joint or muscle swelling or pain. Denies neck or back pain. Skin and breasts: Denies rash or easy bruising. Neurologic: "I have a migraine." Denies vertigo, loss of consciousness, or loss of sensation. Psychiatric: Denies depression or anxiety. PHYSICAL EXAM General Appearance: Well-appearing, appropriately dressed. No apparent distress , no intoxication. HEENT: EOMI, PERRLA, normal ENT inspection, normal voice, TMs normal, pharynx normal. No conjunctival pallor. No photophobia, scleral icterus. Neck: Supple. Trachea midline. No tenderness, rigidity, carotid bruit, stridor , lymphadenopathy, or thyromegaly. Respiratory/Chest: Lungs CTAB. No shortness of breath, chest tenderness, respiratory distress, accessory muscle use. No crackles, rales, rhonchi, stridor , wheezing, dullness Cardiovascular: RRR. S1, S2. No JVD, murmur, bradycardia, tachycardia. Vascular Pulses: Dorsalis-Pedis (R): 2+, Dorsalis-Pedis (L): 2+ Gastrointestinal/Abdominal: Normal bowel sounds. Abdomen soft, non-distended. No tenderness or rebound tenderness. No organomegaly, pulsatile mass, guarding , hernia, hepatomegaly, splenomegaly. Lymphatic: No adenopathy, tenderness. Musculoskeletal/Extremities: Normal inspection. FROM of all extremities, normal capillary refill. Pelvis Stable. No CVA tenderness. No tenderness to extremities, pedal edema, swelling, erythema or deformity. Integumentary: Appropriate color, dry, warm. 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 Fully oriented, alert. Appropriate mood/affect. Motor strength 5/5. No appreciable EOM palsy, facial droop or sensory deficit. 01/04/19 16:01 Past History - Past Medical History Allergies/Adverse Reactions: Allergies Allergy/AdvReac Type Severity Reaction Status Date / Time No Known Allergies Allergy Verified 01/04/19 15:08 Home Medications: Ambulatory Orders Atorvastatin 40 mg PO DAILY 03/24/18 Cyclobenzaprine HCl [Flexeril 10 mg] 10 mg PO PRN PRN 10/24/18 Cardiac Disorders: Yes (pericarditis) COPD: No DVT: No GI Disorders: Yes (GERD) Hypercholesterolemia: Yes - Immunization History Immunization Up to Date: Yes - Psycho Social/Smoking Cessation Hx Smoking Status: No Smoking History: Never smoked Have you smoked in the past 12 months: No Number of Cigarettes Smoked Daily: 0 If you are a former smoker, when did you quit?: 15 years ago Information on smoking cessation initiated: No Hx Alcohol Use: Yes Drug/Substance Use Hx: No Substance Use Type: None Hx Substance Use Treatment: No Neuro Specific PMHX - Complaint Specific PMHX Glaucoma: No Herniated Disk: No Laminectomy: No Migraine: Yes *Physical Exam - Vital Signs Last Vital Signs Temp Pulse Resp BP Pulse Ox 98.4 F 85 18 140/73 100 01/04/19 15:09 01/04/19 15:09 01/04/19 15:09 01/04/19 15:01/04/19 15:09 Medical Decision Making - Medical Decision Making 01/04/19 16:02 48 yo F with hx of chronic migraines, followed by a neurologist at [facility] who gives her Botox injections every two weeks along with Flexeril as her "rescue medicine." -IM Toradol -po benadryl 01/04/19 16:02 Patient denies any chance of . Discharge - Discharge Information Problems reviewed: Yes Clinical Impression/Diagnosis: Migraine Qualifiers: Migraine type: unspecified Status migrainosus presence: without status migrainosus Intractability: not intractable Qualified Code(s): G43.909 - Migraine, unspecified, not intractable, without status migrainosus Condition: Stable Disposition: HOME - Admission No - Follow up/Referral Referrals: Chantel Soto MD [Primary Care Provider] - - Patient Discharge Instructions Patient Printed Discharge Instructions: DI for Migraine - Post Discharge Activity
[2019-01-04] MEDS ORDERED: KETOROLAC TROMETHAMINE 15 MG/ML VIAL ONE (16:16)
== END 2019-01-04 16:48 | disposition home or self-care (01) ==
LOC: JERFT 14:58
PROC: 3E0233Z Introduction of Anti-inflammatory into Muscle, Percutaneous Approach (ICD-10-PCS; principal; 2019-01-04)
DX: G43.909 Migraine, unspecified, not intractable, without status migrainosus (principal); K21.9 Gastro-esophageal reflux disease without esophagitis; E78.00 Pure hypercholesterolemia, unspecified
CPT/HCPCS: 96372; 99281-25

== ENCOUNTER 2019-01-13 11:30 | Emergency (ER) | payer OTHER ==
[2019-01-13 11:35] VITALS: TEMP 97.9; BMI 36.5
[2019-01-13] MEDS ORDERED: KETOROLAC TROMETHAMINE 60 MG/2 ML VIAL IM ONE (11:55)
[2019-01-13] MEDS ORDERED: SODIUM CHLORIDE 1,000 ML IV STA (11:56)
[2019-01-13] MEDS ORDERED: METOCLOPRAMIDE HCL INJECTION 10 MG/2 ML VIAL IVPB ONE (11:56)
[2019-01-13] MEDS ORDERED: KETOROLAC TROMETHAMINE 60 MG/2 ML VIAL ONE (12:03)
[2019-01-13] MEDS ORDERED: METOCLOPRAMIDE HCL INJECTION 10 MG/2 ML VIAL ONE (12:03)
[2019-01-13 12:46] LABS: BLOOD UREA NITROGEN 10.9 mg/dL (7-18); CALCIUM 8.6 mg/dL (8.5-10.1); CREATININE 0.7 mg/dL (0.55-1.3); POTASSIUM 4.3 mmol/L (3.5-5.1)
--- NOTE | 2019-01-13 12:48 | PDOC ---
History of Present Illness - General Chief Complaint: Migraine Headache Stated Complaint: HEADACHE Time Seen by Provider: 01/13/19 11:48 History Source: Patient Exam Limitations: No Limitations - History of Present Illness Initial Comments: 01/13/19 12:21 48-year-old female with history of migraines presents to ED with pressure to her forehead since awakening this morning unrelieved with Tylenol. Patient states normally waits and takes the medication again but states she was slightly nauseous and had pressure to her sinus region also. Patient states in the process of seeing a neurologist who has her scheduled for a brain MRI. Patient states symptoms similar to her migraine episodes including nausea, location and severity. Patient has no visual changes, complaints of headache, neck pain or difficulty swallowing. Patient also denies dizziness Timing/Duration: reports: 4-6 hours Severity: Yes: moderate, severe Associated Symptoms: reports: nausea/vomiting, other Past History - Travel Traveled outside of the country in the last 30 days: Yes Close contact w/someone who was outside of country & ill: Yes - Past Medical History Allergies/Adverse Reactions: Allergies Allergy/AdvReac Type Severity Reaction Status Date / Time No Known Allergies Allergy Verified 01/13/19 11:31 Home Medications: Ambulatory Orders Atorvastatin 40 mg PO DAILY 03/24/18 Cyclobenzaprine HCl [Flexeril 10 mg] 10 mg PO PRN PRN 10/24/18 Cardiac Disorders: Yes (pericarditis) COPD: No DVT: No GI Disorders: Yes (GERD) Hypercholesterolemia: Yes - Immunization History Immunization Up to Date: Yes - Psycho Social/Smoking Cessation Hx Smoking Status: No Smoking History: Never smoked Have you smoked in the past 12 months: No Number of Cigarettes Smoked Daily: 0 If you are a former smoker, when did you quit?: 15 years ago Hx Alcohol Use: Yes Drug/Substance Use Hx: No Substance Use Type: None Hx Substance Use Treatment: No Patient Lives Alone: No Lives with/in: spouse/SO Neuro Specific PMHX - Complaint Specific PMHX Glaucoma: No Herniated Disk: No Laminectomy: No Migraine: Yes Review of Systems - Review of Systems Able to Perform ROS?: Yes Constitutional: No: Symptoms Reported HEENTM: No: Symptoms Reported Respiratory: No: Symptoms reported Cardiac (ROS): No: Symptoms Reported ABD/GI: Yes: Nausea : No: Symptoms Reported Musculoskeletal: No: Symptoms Reported Integumentary: No: Symptoms Reported Neurological: Yes: Headache. No: Numbness, Paresthesia, Weakness, Dizziness Hematologic/Lymphatic: No: Symptoms Reported *Physical Exam - Vital Signs Last Vital Signs Temp Pulse Resp BP Pulse Ox 97.9 F 88 18 117/65 98 01/13/19 11:32 01/13/19 11:32 01/13/19 11:32 01/13/19 11:32 01/13/19 11:32 - Physical Exam General Appearance: Yes: Nourished, Appropriately Dressed. No: Apparent Distress HEENT: positive: EOMI, JOSE JUAN. negative: Pale Conjunctivae Neck: positive: Supple. negative: Normal Thyroid Gastrointestinal/Abdominal: positive: Soft. negative: Tenderness Integumentary: positive: Normal Color, Warm, Moist Neurologic: positive: Motor Strength 5/5 (Ambulatory) ED Treatment Course - LABORATORY CBC & Chemistry Diagram: 01/13/19 12:10 - ADDITIONAL ORDERS Additional order review: Laboratory Results 01/13/19 12:10 Sodium 138 Potassium 4.3 Chloride 108 H Carbon Dioxide 28 Anion Gap 3 L BUN 10.9 Creatinine 0.7 Est GFR (CKD-EPI)AfAm 117.91 Est GFR (CKD-EPI)NonAf 101.74 Random Glucose 91 Calcium 8.6 - Medications Given in the ED: ED Medications Discontinued Medications Generic Name Dose Route Start Last Admin Trade Name Gastonq PRN Reason Stop Dose Admin Ketorolac Tromethamine 60 mg 01/13/19 11:55 01/13/19 12:15 Toradol Injection - IM 01/13/19 11:56 60 mg ONCE ONE Administration Metoclopramide HCl 10 mg 01/13/19 11:56 01/13/19 12:10 Reglan Injection - IVPB 01/13/19 11:57 10 mg ONCE ONE Administration Medical Decision Making - Medical Decision Making 01/13/19 12:23 Chief complaint: Throbbing pressure to forehead since awakening this a.m. at around 7 AM patient states drink alcohol last night which she feels may have triggered the migraine. Patient took Tylenol with no relief requesting medication IV. Exam: Patient with no neurofocal deficits vital signs stable. No sinus tenderness. Plan: BMP to evaluate kidney function secondary to request of Toradol which she frequently receives in the ER, IV fluids, Toradol, and Reglan 01/13/19 13:25 Laboratory Tests 01/13/19 12:10 Sodium 138 Potassium 4.3 Chloride 108 H Carbon Dioxide 28 Anion Gap 3 L BUN 10.9 Creatinine 0.7 Est GFR (CKD-EPI)AfAm 117.91 Est GFR (CKD-EPI)NonAf 101.74 Random Glucose 91 Calcium 8.6 Patient states complete resolution of discomfort. Will discharge patient home Discharge - Discharge Information Problems reviewed: Yes Clinical Impression/Diagnosis: Migraine Condition: Improved Disposition: HOME - Follow up/Referral Referrals: Chantel Soto MD [Primary Care Provider] - - Patient Discharge Instructions Patient Printed Discharge Instructions: DI for Migraine Additional Instructions: Take medication as previously prescribed. Follow-up with neurologist. Avoid triggers. - Post Discharge Activity
[2019-01-13 13:20] VITALS: BP 121/76; PULSE 72
== END 2019-01-13 13:20 | disposition home or self-care (01) ==
LOC: JER 11:30
PROC: 3E0233Z Introduction of Anti-inflammatory into Muscle, Percutaneous Approach (ICD-10-PCS; principal; 2019-01-13)
PROC: 3E033GC Introduction of Other Therapeutic Substance into Peripheral Vein, Percutaneous Approach (ICD-10-PCS; 2019-01-13)
DX: G43.909 Migraine, unspecified, not intractable, without status migrainosus (principal)
CPT/HCPCS: 36415; 80048; 96372; 96374; 99282-25; J7030

== ENCOUNTER 2019-01-26 09:09 | Emergency (ER) | payer OTHER ==
[2019-01-26 09:20] VITALS: BP 129/70; PULSE 89; TEMP 98.7; BMI 36.5
[2019-01-26] MEDS ORDERED: KETOROLAC TROMETHAMINE 60 MG/2 ML VIAL IM ONE (09:54)
[2019-01-26] MEDS ORDERED: KETOROLAC TROMETHAMINE 60 MG/2 ML VIAL ONE (09:56)
--- NOTE | 2019-01-26 09:59 | PDOC ---
History of Present Illness - General Chief Complaint: Headache Stated Complaint: HEADACHE Time Seen by Provider: 01/26/19 09:19 History Source: Patient Exam Limitations: Clinical Condition - History of Present Illness Initial Comments: 01/26/19 09:59 Patient with past medical history of migraine headaches on both sides with multiple ED visit for headaches requesting Toradol injection present with complaint of frontal headache upon wake this morning typical of a migraine headache. Patient has been followed up with neurologist for migraine and has been receiving regular Botox injection but report has intermittent breakthrough headaches. Patient did not take anything for headache. Patient report headache of throbbing frontal headache. Denies nausea, vomiting, dizziness, blurry vision or change in vision. Denies any other symptoms Timing/Duration: reports: 4-6 hours, waxing and waning Associated Symptoms: denies: denies symptoms, confusion, fatigue, fever/chills, insomnia, loss of consciousness, muscle spasms, nausea/vomiting, numbness in legs/feet, paresthesia, ringing in ears, seizures, sleepy, slurred speech, tingling in legs/feet, trouble walking, vision changes, weakness, other Past History - Past Medical History Allergies/Adverse Reactions: Allergies Allergy/AdvReac Type Severity Reaction Status Date / Time No Known Allergies Allergy Verified 01/13/19 11:31 Home Medications: Ambulatory Orders Atorvastatin 40 mg PO DAILY 03/24/18 Cyclobenzaprine HCl [Flexeril 10 mg] 10 mg PO PRN PRN 10/24/18 Butalb/Acetaminophen/Caffeine [Fioricet 50-300-40 mg Capsule] 1 each PO Q6H PRN #20 capsule 01/26/19 Cardiac Disorders: Yes (pericarditis) COPD: No DVT: No GI Disorders: Yes (GERD) Hypercholesterolemia: Yes Other medical history: botox injections for freq migraines - Immunization History Immunization Up to Date: Yes - Psycho Social/Smoking Cessation Hx Smoking Status: No Smoking History: Unknown if ever smoked Have you smoked in the past 12 months: No Number of Cigarettes Smoked Daily: 0 If you are a former smoker, when did you quit?: 15 years ago Hx Alcohol Use: Yes Drug/Substance Use Hx: No Substance Use Type: None Hx Substance Use Treatment: No Neuro Specific PMHX - Complaint Specific PMHX Glaucoma: No Herniated Disk: No Laminectomy: No Migraine: Yes Review of Systems - Review of Systems Able to Perform ROS?: Yes Constitutional: No: Chills, Fever, Malaise HEENTM: Yes: Symptoms Reported, See HPI. No: Eye Pain, Blurred Vision, Tearing , Recent change in vision, Double Vision, Cataracts, Ear Pain, Ocular Prothesis , Ear Discharge, Nose Pain, Nose Congestion, Tinnitus, Nose Bleeding, Hearing Loss, Throat Pain, Throat Swelling, Mouth Pain, Dental Problems, Difficulty Swallowing, Mouth Swelling, Other Respiratory: No: Symptoms reported, See HPI, Cough, Orthopnea, Shortness of Breath, SOB with Exertion, SOB at Rest, Stridor, Wheezing, Productive cough, Hemoptysis, Other Cardiac (ROS): No: Symptoms Reported, See HPI, Chest Pain, Edema, Irregular Heart Rate, Lightheadedness, Palpitations, Syncope, Chest Tightness, Other ABD/GI: No: Symptoms Reported, Nausea, Vomiting Musculoskeletal: No: Symptoms Reported, See HPI Integumentary: No: Symptoms Reported Neurological: Yes: Symptoms reported, See HPI, Headache (frontal headache). No : Numbness, Paresthesia, Pre-Existing Deficit, Weakness, Unsteady Gait, Ataxia, Dizziness All Other Systems: Reviewed and Negative *Physical Exam - Vital Signs Last Vital Signs Temp Pulse Resp BP Pulse Ox 98.7 F 89 16 129/70 99 01/26/19 09:15 01/26/19 09:15 01/26/19 09:15 01/26/19 09:15 01/26/19 09:15 - Physical Exam 01/26/19 09:55 GENERAL: Well developed, well nourished. Awake and alert in mild acute distress. HEENT: Normocephalic, atraumatic. PERRLA, EOMI. No conjunctival pallor. Sclera are non- icteric. Moist mucous membranes. Oropharynx is clear. NECK: Supple. Full ROM. No JVD. CARDIOVASCULAR: Regular rate and rhythm. No murmurs, rubs, or gallops. Distal pulses are 2+ and symmetric. PULMONARY: No evidence of respiratory distress. Lungs clear to auscultation bilaterally. No wheezing, rales or rhonchi. MUSCULOSKELETAL Normal range of motion at all joints. No bony deformities or tenderness. SKIN: Warm and dry. Normal capillary refill. No rashes. No jaundice. NEUROLOGICAL: Alert, awake, appropriate. Cranial nerves 2-12 intact. No deficits to light touch in face, upper extremities and lower extremities. No motor deficits in the in face, upper extremities and lower extremities. Normoreflexic in the upper and lower extremities. Normal speech. Toes are down-going bilaterally. Gait is normal without ataxia. PSYCHIATRIC: Cooperative. Good eye contact. Appropriate mood and affect. General Appearance: Yes: Nourished, Appropriately Dressed. No: Apparent Distress Medical Decision Making - Medical Decision Making 01/26/19 10:00 Patient with past medical history of migraine headaches on both sides with multiple ED visit for headaches requesting Toradol injection present with complaint of frontal headache upon wake this morning typical of a migraine headache. Patient has been followed up with neurologist for migraine and has been receiving regular Botox injection but report has intermittent breakthrough headaches. Patient did not take anything for headache. Patient report headache of throbbing frontal headache. Denies nausea, vomiting, dizziness, blurry vision or change in vision. Denies any other symptoms. Patient was seen 2 weeks ago for same symptoms and all work-up was negative including blood work. Clinical exam unremarkable with normal neuro exam. Patient symptoms likely migraine headache. Toradol 60 mg IM ordered for headache. Will discharge patient home on Fioricet to take as needed for breakthrough headaches with neurology follow-up Discharge - Discharge Information Problems reviewed: Yes Clinical Impression/Diagnosis: Migraine Qualifiers: Migraine type: without aura Status migrainosus presence: without status migrainosus Intractability: not intractable Qualified Code(s): G43.009 - Migraine without aura, not intractable, without status migrainosus Condition: Improved Disposition: HOME - Admission No - Additional Discharge Information Prescriptions: Butalb/Acetaminophen/Caffeine [Fioricet 50-300-40 mg Capsule] 1 each PO Q6H PRN #20 capsule PRN Reason: headache - Follow up/Referral Referrals: Chantel Soto MD [Primary Care Provider] - - Patient Discharge Instructions Patient Printed Discharge Instructions: DI for Migraine Additional Instructions: Continue with Botox medication for migraine headache. To prescribe medication as needed for persistent headache. Follow-up with your neurologist as scheduled - Post Discharge Activity
== END 2019-01-26 10:05 | disposition home or self-care (01) ==
LOC: JERFT 09:09 → JER 09:09 → JERFT 10:05
PROC: 3E0233Z Introduction of Anti-inflammatory into Muscle, Percutaneous Approach (ICD-10-PCS; principal; 2019-01-26)
DX: G43.009 Migraine without aura, not intractable, without status migrainosus (principal); E78.00 Pure hypercholesterolemia, unspecified; K21.9 Gastro-esophageal reflux disease without esophagitis
CPT/HCPCS: 96372; 99281-25

== ENCOUNTER 2019-02-17 10:48 | Emergency (ER) | payer OTHER ==
[2019-02-17 11:07] VITALS: BP 132/72; PULSE 82; BMI 36.0
[2019-02-17] MEDS ORDERED: KETOROLAC TROMETHAMINE 60 MG/2 ML VIAL IM ONE (11:28)
--- NOTE | 2019-02-17 11:31 | PDOC ---
History of Present Illness - General Chief Complaint: Headache Stated Complaint: R/O MIGRAINE Time Seen by Provider: 02/17/19 11:01 - History of Present Illness Initial Comments: 02/17/19 11:29 48-year-old female presents for evaluation of migraine. Typical of her usual migraines this time this migraine was exacerbated by wine which she drank last night Past History - Past Medical History Allergies/Adverse Reactions: Allergies Allergy/AdvReac Type Severity Reaction Status Date / Time No Known Allergies Allergy Verified 02/17/19 11:01 Home Medications: Ambulatory Orders Atorvastatin 40 mg PO DAILY 03/24/18 Cyclobenzaprine HCl [Flexeril 10 mg] 10 mg PO PRN PRN 10/24/18 Butalb/Acetaminophen/Caffeine [Fioricet 50-300-40 mg Capsule] 1 each PO Q6H PRN #20 capsule 01/26/19 Cardiac Disorders: Yes (pericarditis) COPD: No DVT: No GI Disorders: Yes (GERD) Hypercholesterolemia: Yes - Immunization History Immunization Up to Date: Yes - Psycho Social/Smoking Cessation Hx Smoking Status: No Smoking History: Never smoked Have you smoked in the past 12 months: No Number of Cigarettes Smoked Daily: 0 If you are a former smoker, when did you quit?: 15 years ago Information on smoking cessation initiated: No Hx Alcohol Use: No Drug/Substance Use Hx: No Substance Use Type: None Hx Substance Use Treatment: No Review of Systems - Review of Systems Constitutional: No: Fever Neurological: Yes: Headache *Physical Exam - Vital Signs Last Vital Signs Temp Pulse Resp BP Pulse Ox 82 16 132/72 100 02/17/19 10:56 02/17/19 10:56 02/17/19 10:56 02/17/19 10:56 - Physical Exam 02/17/19 11:30 GENERAL: The patient is awake, alert, and fully oriented, in no acute distress. HEAD: Normal with no signs of trauma. EYES: sclera anicteric, conjunctiva clear. ENT: Ears normal NECK: Normal range of motion EXTREMITIES: Normal range of motion, no edema. No clubbing or cyanosis. No cords, erythema, or tenderness. NEUROLOGICAL: Cranial nerves II through XII grossly intact. Normal speech, normal gait. PSYCH: Normal mood, normal affect. SKIN: Warm, Dry, normal turgor, no rashes or lesions noted. Medical Decision Making - Medical Decision Making 02/17/19 11:30 Toradol and Benadryl for migraine this medication regimen has worked for her in the past Discharge - Discharge Information Problems reviewed: Yes Clinical Impression/Diagnosis: Migraine Condition: Stable Disposition: HOME - Admission No - Follow up/Referral Referrals: Chantel Soto MD [Primary Care Provider] - - Patient Discharge Instructions Additional Instructions: Return to the emergency room for worsening symptoms. Continue usual medication. Without fail follow-up with your primary care physician in 1 to 2 days for further evaluation and treatment options. No anti-inflammatories for 24 hours. - Post Discharge Activity
[2019-02-17] MEDS ORDERED: KETOROLAC TROMETHAMINE 60 MG/2 ML VIAL ONE (11:33)
== END 2019-02-17 11:51 | disposition home or self-care (01) ==
LOC: JER 10:48 → JERFT 10:48
PROC: 3E023GC Introduction of Other Therapeutic Substance into Muscle, Percutaneous Approach (ICD-10-PCS; principal; 2019-02-17)
PROC: 3E0233Z Introduction of Anti-inflammatory into Muscle, Percutaneous Approach (ICD-10-PCS; 2019-02-17)
DX: G43.909 Migraine, unspecified, not intractable, without status migrainosus (principal); E78.00 Pure hypercholesterolemia, unspecified; K21.9 Gastro-esophageal reflux disease without esophagitis; Z86.79 Personal history of other diseases of the circulatory system
CPT/HCPCS: 99281-25

== ENCOUNTER 2019-03-06 17:57 | Emergency (ER) | payer OTHER ==
[2019-03-06 18:22] VITALS: BMI 36.0
--- NOTE | 2019-03-06 18:31 | PDOC ---
Rapid Medical Evaluation Chief Complaint: Headache Time Seen by Provider: 03/06/19 18:19 Medical Evaluation: Allergies Allergy/AdvReac Type Severity Reaction Status Date / Time No Known Allergies Allergy Verified 02/17/19 11:01 Vital Signs Temp Pulse Resp BP Pulse Ox 98.2 F 99 H 17 149/97 99 03/06/19 18:19 03/06/19 18:19 03/06/19 18:19 03/06/19 18:19 03/06/19 18:19 03/06/19 18:24 I have performed a brief in-person evaluation of this patient. The patient presents with a chief complaint of: Usual headache. Pt has h/o migraines, f/u with neuro and receives freq botox injection. Pt well known to ED 2/2 numerous visits for HAs, usually requesting specifically "IM toradol and IM benadryl" and known to become upset when not given IM benadryl with her toradol Pertinent physical exam findings:cristhian well, NAD, stable I have ordered the following:nothing The patient will proceed to the ED for further evaluation. Discharge Disposition - Diagnosis Headache Qualifiers: Headache type: other headache syndrome Qualified Code(s): G44.89 - Other headache syndrome - Referrals - Patient Instructions - Post Discharge Activity
[2019-03-06] MEDS ORDERED: SODIUM CHLORIDE 1,000 ML IV STA (19:44)
[2019-03-06] MEDS ORDERED: ACETAMINOPHEN 1000 MG/100 ML VIAL (NON FORMULARY) IVPB ONE (19:44)
[2019-03-06] MEDS ORDERED: ACETAMINOPHEN INJECTION 100 ML IVPB ONE (20:13)
--- NOTE | 2019-03-06 20:23 | PDOC ---
*Physical Exam - Vital Signs Last Vital Signs Temp Pulse Resp BP Pulse Ox 98.2 F 99 H 17 149/97 99 03/06/19 18:19 03/06/19 18:19 03/06/19 18:19 03/06/19 18:19 03/06/19 18:19 ED Treatment Course - LABORATORY CBC & Chemistry Diagram: 03/06/19 20:30 03/06/19 20:30 Medical Decision Making - Medical Decision Making 03/06/19 20:23 Patient seen by the advanced practice provider under my direct supervision. Ancillary testing reviewed as necessary. I agree with plan as outlined by the advanced practice provider. Discharge - Discharge Information Problems reviewed: Yes Clinical Impression/Diagnosis: Headache Qualifiers: Headache type: other headache syndrome Qualified Code(s): G44.89 - Other headache syndrome - Follow up/Referral Referrals: Chantel Soto MD [Primary Care Provider] - - Patient Discharge Instructions - Post Discharge Activity
[2019-03-06 20:58] LABS: BASO % 0.7 % (0-2.0); EOS % 0.4 % (0-4.5); HEMATOCRIT 36.2 % (32.4-45.2); HEMOGLOBIN 11.6 GM/dL (10.7-15.3); LYMPH % 24.4 % (8-40); MCH 27.3 pg (25.7-33.7); MCHC 32.2 g/dl (32.0-36.0); MEAN CELL VOLUME 84.7 fl (80-96); MEAN PLT VOLUME 8.2 fl (7.5-11.1); MONO % 4.3 % (3.8-10.2); NEUT % 70.2 % (42.8-82.8); PLATELET COUNT 324 K/MM3 (134-434); RBC 4.27 M/mm3 (3.60-5.2); RDW 14.9 % (11.6-15.6); WHITE BLOOD COUNT 10.3 K/mm3 (4.0-10.0)
[2019-03-06 21:04] LABS: EPI CELLS 1.4 /HPF (0-5/HPF); HYALINE CASTS 1 /lpf (0-8); URINE APPEARANCE CLEAR; URINE BACTERIA 67.6 /hpf (NEGATIVE); URINE BILIRUBIN NEGATIVE (NEGATIVE); URINE COLOR YELLOW; URINE GLUCOSE (UA) NEGATIVE (NEGATIVE); URINE KETONE NEGATIVE (NEGATIVE); URINE LEUK ESTERASE TRACE (NEGATIVE); URINE NITRITE NEGATIVE (NEGATIVE); URINE PROTEIN NEGATIVE (NEGATIVE); URINE RBC 3 /hpf (0-4); URINE UROBILINOGEN 0.2 mg/dL (0.2-1.0); URINE WBC 4 /hpf (0-5)
[2019-03-06 21:26] LABS: ALBUMIN 3.6 g/dl (3.4-5.0); BILIRUBIN,TOTAL 0.3 mg/dL (0.2-1); BLOOD UREA NITROGEN 10.4 mg/dL (7-18); CALCIUM 8.9 mg/dL (8.5-10.1); CREATININE 0.8 mg/dL (0.55-1.3); POTASSIUM 4.2 mmol/L (3.5-5.1); TOT PROT 7.5 g/dl (6.4-8.2)
[2019-03-06] MEDS ORDERED: amLODIPine BESYLATE 5 MG TABLET (FP) PO ONE (22:10)
[2019-03-06] MEDS ORDERED: amLODIPine BESYLATE 5 MG TABLET (FP) ONE (22:26)
[2019-03-06] MEDS ORDERED: LIDOCAINE 5% TOPICAL PATCH TP ONE (22:26)
[2019-03-06] MEDS ORDERED: METOCLOPRAMIDE HCL INJECTION 10 MG/2 ML VIAL IVPB ONE (22:26)
--- NOTE | 2019-03-06 22:26 | PDOC ---
History of Present Illness - General Chief Complaint: Headache Stated Complaint: BAD HEADACHE Time Seen by Provider: 03/06/19 18:19 History Source: Patient Exam Limitations: No Limitations Past History - Travel Traveled outside of the country in the last 30 days: No Close contact w/someone who was outside of country & ill: No - Past Medical History Allergies/Adverse Reactions: Allergies Allergy/AdvReac Type Severity Reaction Status Date / Time No Known Allergies Allergy Verified 03/07/19 05:42 Home Medications: Ambulatory Orders Atorvastatin 40 mg PO DAILY 03/24/18 Cyclobenzaprine HCl [Flexeril 10 mg] 10 mg PO PRN PRN 10/24/18 Butalb/Acetaminophen/Caffeine [Fioricet 50-300-40 mg Capsule] 1 each PO Q6H PRN #20 capsule 01/26/19 Cardiac Disorders: Yes (pericarditis) COPD: No DVT: No GI Disorders: Yes (GERD) Hypercholesterolemia: Yes - Immunization History Immunization Up to Date: Yes - Psycho Social/Smoking Cessation Hx Smoking Status: No Smoking History: Never smoked Have you smoked in the past 12 months: No Number of Cigarettes Smoked Daily: 0 If you are a former smoker, when did you quit?: 15 years ago Hx Alcohol Use: No Drug/Substance Use Hx: No Substance Use Type: None Hx Substance Use Treatment: No Review of Systems - Review of Systems Able to Perform ROS?: Yes Comments:: 03/06/19 23:33 CONSTITUTIONAL: Absent: fever, chills, diaphoresis, generalized weakness, malaise, loss of appetite HEENT: Absent: rhinorrhea, nasal congestion, throat pain, throat swelling, difficulty swallowing, mouth swelling, ear pain, eye pain, visual Changes CARDIOVASCULAR: Absent: chest pain, loss of consciousness, palpitations, irregular heart rate, peripheral edema RESPIRATORY: Absent: cough, shortness of breath, dyspnea with exertion, orthopnea, wheezing, stridor, hemoptysis GASTROINTESTINAL: Absent: abdominal pain, abdominal distension, nausea, vomiting, diarrhea, constipation, melena, hematochezia GENITOURINARY: Absent: dysuria, frequency, urgency, hesitancy, hematuria, flank pain, genital pain MUSCULOSKELETAL: Absent: myalgia, arthralgia, joint swelling SKIN: Absent: rash, itching, pallor NEUROLOGIC: Present: Headache Absent: focal weakness or paresthesias, dizziness, unsteady gait, seizure, mental status changes, bladder or bowel incontinence PSYCHIATRIC: Absent: anxiety, depression, suicidal or homicidal ideation, hallucinations. Is the patient limited Indian proficient: No *Physical Exam - Vital Signs Last Vital Signs Temp Pulse Resp BP Pulse Ox 97.7 F 87 17 160/92 100 03/06/19 20:40 03/06/19 20:40 03/06/19 20:40 03/06/19 20:40 03/06/19 20:40 - Physical Exam 03/06/19 23:34 GENERAL: Well developed, well nourished. Awake and alert. No acute distress. HEENT: Normocephalic, atraumatic. PERRLA, EOMI. No conjunctival pallor. Sclera are non- icteric. Moist mucous membranes. Oropharynx is clear. NECK: Supple. Full ROM. No lymphadenopathy. CARDIOVASCULAR: Regular rate and rhythm. No murmurs, rubs, or gallops. Distal pulses are 2+ and symmetric. PULMONARY: No evidence of respiratory distress. Lungs clear to auscultation bilaterally. No wheezing, rales or rhonchi. ABDOMINAL: Soft. Non-tender. Non-distended. No rebound or guarding. No organomegaly. Normoactive bowel sounds. MUSCULOSKELETAL Tender to palpation of the right trapezius muscle with palpable knot. Normal range of motion at all joints. No bony deformities or tenderness. No CVA tenderness. EXTREMITIES: No cyanosis. No clubbing. No edema. No calf tenderness. SKIN: Warm and dry. Normal capillary refill. No rashes. No jaundice. NEUROLOGICAL: Alert, awake, appropriate. Cranial nerves 2-12 intact. No deficits to light touch and temperature in face, upper extremities and lower extremities. No motor deficits in the in face, upper extremities and lower extremities. Normoreflexic in the upper and lower extremities. Normal speech. Toes are down- going bilaterally. Gait is normal without ataxia. PSYCHIATRIC: Cooperative. Good eye contact. Appropriate mood and affect. ED Treatment Course - LABORATORY CBC & Chemistry Diagram: 03/06/19 20:30 03/06/19 20:30 - ADDITIONAL ORDERS Additional order review: Laboratory Results 03/06/19 03/06/19 03/06/19 20:30 20:30 20:30 Sodium 136 Potassium 4.2 Chloride 104 Carbon Dioxide 25 Anion Gap 6 L BUN 10.4 Creatinine 0.8 Est GFR (CKD-EPI)AfAm 100.33 Est GFR (CKD-EPI)NonAf 86.57 Random Glucose 83 Calcium 8.9 Total Bilirubin 0.3 AST 18 ALT 19 Alkaline Phosphatase 90 Total Protein 7.5 Albumin 3.6 Urine Color Yellow Urine Appearance Clear Urine pH 5.0 Ur Specific [place] 1.003 L Urine Protein Negative Urine Glucose (UA) Negative Urine Ketones Negative Urine Blood Negative Urine Nitrite Negative Urine Bilirubin Negative Urine Urobilinogen 0.2 Ur Leukocyte Esterase Trace Urine WBC (Auto) 4 Urine RBC (Auto) 3 Urine Casts (Auto) 1 U Epithel Cells (Auto) 1.4 Urine Bacteria (Auto) 67.6 Urine HCG, Qual Negative 03/06/19 20:30 RBC 4.27 MCV 84.7 MCHC 32.2 RDW 14.9 MPV 8.2 D Neutrophils % 70.2 D Lymphocytes % 24.4 D Monocytes % 4.3 Eosinophils % 0.4 Basophils % 0.7 - RADIOLOGY Radiology Studies Ordered: Category Date Time Status HEAD CT WITHOUT CONTRAST [CT] Stat CT Scan 03/06/19 19:47 Completed - Medications Given in the ED: ED Medications Discontinued Medications Generic Name Dose Route Start Last Admin Trade Name Freq PRN Reason Stop Dose Admin Acetaminophen 1,000 mg 03/06/19 19:44 03/06/19 20:22 Ofirmev Injection - IVPB 03/06/19 19:45 1,000 mg ONCE ONE Administration Sodium Chloride 1,000 mls @ 1,000 mls/hr 03/06/19 19:44 03/06/19 20:22 Normal Saline - IV 03/06/19 20:43 1,000 mls/hr ASDIR STA Administration Medical Decision Making - Medical Decision Making 03/06/19 22:29 The patient is a 48-year-old female past medical history of migraines, well known to this emergency department, presents for evaluation of a headache. She states that this does not feel like her usual headache. She states that she feels like her blood pressure is elevated and she feels flushed. Pt taking naratriptan to try and break her headache cycle; however, pt reports the medication has made her headache worse. she states that this is worse than her usual headache. She admits to lightheadedness. Denies fevers, chills, neck pain, nausea, vomiting or diarrhea. She also has some right shoulder tenderness. A/P: Migraine Patient is neurologically intact with no focal deficits. the patient's blood pressure is mildly elevated from her baseline. Today it is 150/80. Usually runs 120/70. Side effect profile of naratriptan includes high blood pressure and possible worsening of headaches. We will tell patient to discontinue this medication and follow-up with her primary care doctor. Head CT is negative for acute pathology at this time. Migraine cocktail given, 5 mg of amlodipine to lower her blood pressure. Patient reports relief of symptoms after the medication. Discharge home to follow up with her primary care doctor tomorrow. Repeat pressure now 125/70 I discussed the physical exam findings, ancillary test results and final diagnoses with the patient. I answered all of the patient's questions. The patient was satisfied with the care received and felt comfortable with the discharge plan and treatment plan. The Patient agrees to follow up with the primary care physician/specialist within 24-72 hours. Return precautions were given. Discharge - Discharge Information Problems reviewed: Yes Clinical Impression/Diagnosis: Headache Qualifiers: Headache type: unspecified Headache chronicity pattern: episodic headache Intractability: not intractable Qualified Code(s): R51 - Headache Condition: Stable Disposition: HOME - Admission No - Follow up/Referral Referrals: Chantel Soto MD [Primary Care Provider] - - Patient Discharge Instructions Patient Printed Discharge Instructions: DI for Headache Additional Instructions: You were evaluated for your headache today. Your head CT and blood work was normal. Please stop taking the naratriptan as this could have contributed to your headache (elevated pressure is a side effect) Drink plenty of fluids and get plenty of rest tonight. Follow-up with your primary care doctor tomorrow. Return to the ER for any new or worsening symptoms. - Post Discharge Activity
[2019-03-06] MEDS ORDERED: METOCLOPRAMIDE HCL INJECTION 10 MG/2 ML VIAL ONE (23:25)
[2019-03-06] MEDS ORDERED: LIDOCAINE 5% TOPICAL PATCH ONE (23:26)
[2019-03-07 01:06] VITALS: BP 125/79; PULSE 78; TEMP 97.5
== END 2019-03-07 01:06 | disposition home or self-care (01) ==
LOC: JERFT 17:57 → JER 17:57
PROC: 3E033NZ Introduction of Analgesics, Hypnotics, Sedatives into Peripheral Vein, Percutaneous Approach (ICD-10-PCS; principal; 2019-03-06)
PROC: 3E033GC Introduction of Other Therapeutic Substance into Peripheral Vein, Percutaneous Approach (ICD-10-PCS; 2019-03-06)
PROC: 3E033GC Introduction of Other Therapeutic Substance into Peripheral Vein, Percutaneous Approach (ICD-10-PCS; 2019-03-06)
DX: G44.89 Other headache syndrome (principal)
CPT/HCPCS: 36415; 70450-TC; 80053; 81003; 84703; 85025; 99284-25; J0131; J7030

== ENCOUNTER 2019-04-03 13:42 | Emergency (ER) | payer OTHER ==
[2019-04-03 13:57] VITALS: BP 134/80; PULSE 87; TEMP 98.4; BMI 36.8
[2019-04-03] MEDS ORDERED: KETOROLAC TROMETHAMINE 60 MG/2 ML VIAL IM ONE (13:57)
--- NOTE | 2019-04-03 13:58 | PDOC ---
Rapid Medical Evaluation Time Seen by Provider: 04/03/19 13:53 Medical Evaluation: Allergies Allergy/AdvReac Type Severity Reaction Status Date / Time No Known Allergies Allergy Verified 03/07/19 05:42 04/03/19 13:53 Pt presents for evaluation of migraine. States started last night and has gotten worse. Took her flexeril without relief of symptoms. Here for toradol shot. Brain MRI on 03/22 was normal with no acute pathology. Exam: Neurologically intact. Orders: toradol, benadryl Pt to proceed to the ER for further evaluation Discharge Disposition - Diagnosis Migraine Qualifiers: Migraine type: other Status migrainosus presence: without status migrainosus Intractability: not intractable Qualified Code(s): G43.809 - Other migraine, not intractable, without status migrainosus - Referrals - Patient Instructions - Post Discharge Activity
[2019-04-03] MEDS ORDERED: KETOROLAC TROMETHAMINE 60 MG/2 ML VIAL ONE (14:42)
--- NOTE | 2019-04-03 15:02 | PDOC ---
History of Present Illness - General Chief Complaint: Migraine Headache Stated Complaint: HEADACHES Time Seen by Provider: 04/03/19 13:53 - History of Present Illness Initial Comments: 04/03/19 15:01 48-year-old female presents for usual migraine Past History - Past Medical History Allergies/Adverse Reactions: Allergies Allergy/AdvReac Type Severity Reaction Status Date / Time No Known Allergies Allergy Verified 04/03/19 13:54 Home Medications: Ambulatory Orders Atorvastatin 40 mg PO DAILY 03/24/18 Cyclobenzaprine HCl [Flexeril 10 mg] 10 mg PO PRN PRN 10/24/18 Butalb/Acetaminophen/Caffeine [Fioricet 50-300-40 mg Capsule] 1 each PO Q6H PRN #20 capsule 01/26/19 Cardiac Disorders: Yes (pericarditis) COPD: No DVT: No GI Disorders: Yes (GERD) Hypercholesterolemia: Yes - Immunization History Immunization Up to Date: Yes - Psycho Social/Smoking Cessation Hx Smoking Status: No Smoking History: Never smoked Have you smoked in the past 12 months: No Number of Cigarettes Smoked Daily: 0 If you are a former smoker, when did you quit?: 15 years ago Information on smoking cessation initiated: No Hx Alcohol Use: No Drug/Substance Use Hx: No Substance Use Type: None Hx Substance Use Treatment: No Review of Systems - Review of Systems Neurological: Yes: Headache *Physical Exam - Vital Signs Last Vital Signs Temp Pulse Resp BP Pulse Ox 98.4 F 87 18 134/80 99 04/03/19 13:55 04/03/19 13:55 04/03/19 13:55 04/03/19 13:55 04/03/19 13:55 - Physical Exam 04/03/19 15:01 GENERAL: The patient is awake, alert, and fully oriented, in no acute distress. HEAD: Normal with no signs of trauma. EYES: sclera anicteric, conjunctiva clear. ENT: Ears normal tympanic membranes normal oropharynx clear uvula midline NECK: Normal range of motion LUNGS: Breath sounds equal, clear to auscultation bilaterally. No wheezes, and no crackles. HEART: S1 and S2 without murmur, rub or gallop. ABDOMEN: Soft, nontender, normoactive bowel sounds. No guarding, no rebound. No masses. EXTREMITIES: Normal range of motion, no edema. No clubbing or cyanosis. No cords, erythema, or tenderness. NEUROLOGICAL: Cranial nerves II through XII grossly intact. PSYCH: Normal mood, normal affect. SKIN: Warm, Dry, normal turgor, no rashes or lesions noted. ED Treatment Course - Medications Given in the ED: ED Medications Discontinued Medications Generic Name Dose Route Start Last Admin Trade Name Gastonq PRN Reason Stop Dose Admin Diphenhydramine HCl 25 mg 04/03/19 13:57 04/03/19 14:57 Benadryl Injection - IM 04/03/19 13:58 25 mg ONCE ONE Administration Ketorolac Tromethamine 60 mg 04/03/19 13:57 04/03/19 14:57 Toradol Injection - IM 04/03/19 13:58 60 mg ONCE ONE Administration Medical Decision Making - Medical Decision Making 04/03/19 15:01 Symptoms relieved after Toradol and Benadryl Discharge - Discharge Information Problems reviewed: Yes Clinical Impression/Diagnosis: Migraine Qualifiers: Migraine type: other Status migrainosus presence: without status migrainosus Intractability: not intractable Qualified Code(s): G43.809 - Other migraine, not intractable, without status migrainosus - Admission No - Follow up/Referral Referrals: Chantel Soto MD [Primary Care Provider] - - Patient Discharge Instructions Additional Instructions: Return to the emergency room for worsening symptoms and follow-up with your primary care provider in 1 to 2 days as well as your neurologist. Please keep in mind that continued injections of Toradol will injure your kidneys - Post Discharge Activity
== END 2019-04-03 15:08 | disposition home or self-care (01) ==
LOC: JERFT 13:42
PROC: 3E0233Z Introduction of Anti-inflammatory into Muscle, Percutaneous Approach (ICD-10-PCS; principal; 2019-04-03)
PROC: 3E023GC Introduction of Other Therapeutic Substance into Muscle, Percutaneous Approach (ICD-10-PCS; 2019-04-03)
DX: G43.809 Other migraine, not intractable, without status migrainosus (principal)
CPT/HCPCS: 99281-25

== ENCOUNTER 2019-04-15 15:55 | Emergency (ER) | payer OTHER ==
[2019-04-15 16:20] VITALS: BP 132/91; PULSE 108; TEMP 98.3; BMI 36.8
--- NOTE | 2019-04-15 16:21 | PDOC ---
Rapid Medical Evaluation Time Seen by Provider: 04/15/19 16:17 Medical Evaluation: Allergies Allergy/AdvReac Type Severity Reaction Status Date / Time No Known Allergies Allergy Verified 04/03/19 13:54 04/15/19 16:18 I performed a brief in-person evaluation of this patient. 48-year-old female with migraines, sees neurologist at [facility], only monthly injections, Botox injections, muscle relaxers at home. Headaches since Monday, rx nabumetone (last took at 12pm), persistent headache. No unusual symptoms, just not improving with therapy. Reports Toradol works well. Pertinent physical exam findings: No focal neurologic deficits. I have ordered the following: Pgu Patient to proceed to ED for further evaluation Discharge Disposition - Diagnosis Migraine - Referrals - Patient Instructions - Post Discharge Activity
[2019-04-15] MEDS ORDERED: KETOROLAC TROMETHAMINE 15 MG/ML VIAL IM ONE (17:41)
--- NOTE | 2019-04-15 17:47 | PDOC ---
History of Present Illness - General Chief Complaint: Migraine Headache Stated Complaint: Migraine Headache Time Seen by Provider: 04/15/19 16:17 History Source: Patient Exam Limitations: No Limitations - History of Present Illness Initial Comments: 04/15/19 17:42 48-year-old female history of hypertension and migraine headaches well-known to the ER presents for migraine headache similar to priors starting today. Patient has a neurologist however given the holiday she is unable to see her today. Today is her son's birthday and she feels that this is a trigger for her migraine headache. Denies fever, rash, vomiting, neck pain, changes in vision or any other complaint. Took nabumetone 500mg one tab at 11:30 AM today. Patient has been receiving nerve blocks and Botox treatment with some relief of headache over the past 8 to 9 years. ROS: As above PE: GENERAL: well-appearing, NAD HEAD: NCAT EYES: Pupils equal, round and reactive to light, sclera anicteric, conjunctiva clear ENT: pharynx: no erythema, no exudate, uvula midline NECK: supple CHEST: nontender RESP: clear, no w/r/r CARDIO: rrr, no m/g/r ABD: +BS, soft, nontender, non distended BACK: no midline spinal ttp, no CVAT EXTREMITIES: Normal range of motion, no edema NEUROLOGICAL: Normal speech, normal gait SKIN: Warm, Dry Is this a multiple visit Asthma Patient?: No Past History - Past Medical History Allergies/Adverse Reactions: Allergies Allergy/AdvReac Type Severity Reaction Status Date / Time No Known Allergies Allergy Verified 04/03/19 13:54 Home Medications: Ambulatory Orders Atorvastatin 40 mg PO DAILY 03/24/18 Cyclobenzaprine HCl [Flexeril 10 mg] 10 mg PO PRN PRN 10/24/18 Butalb/Acetaminophen/Caffeine [Fioricet 50-300-40 mg Capsule] 1 each PO Q6H PRN #20 capsule 01/26/19 Cardiac Disorders: Yes (pericarditis) COPD: No DVT: No GI Disorders: Yes (GERD) Hypercholesterolemia: Yes - Immunization History Immunization Up to Date: Yes - Psycho Social/Smoking Cessation Hx Smoking Status: No Smoking History: Never smoked Have you smoked in the past 12 months: No Number of Cigarettes Smoked Daily: 0 If you are a former smoker, when did you quit?: 15 years ago Hx Alcohol Use: No Drug/Substance Use Hx: No Substance Use Type: None Hx Substance Use Treatment: No *Physical Exam - Vital Signs Last Vital Signs Temp Pulse Resp BP Pulse Ox 98.3 F 108 H 16 132/91 98 04/15/19 16:18 04/15/19 16:18 04/15/19 16:18 04/15/19 16:18 04/15/19 16:18 ED Treatment Course - ADDITIONAL ORDERS Additional order review: Laboratory Results 04/15/19 16:24 Urine HCG, Qual Negative Medical Decision Making - Medical Decision Making 04/15/19 17:44 48-year-old female with hypertension and migraine headaches well-known to the ED presents complaining of migraine headache similar to priors which started today. Patient requesting Toradol and Benadryl IM. Neurologically intact Toradol 15 mg IM and Benadryl 25 mg IM given Patient aware that she must follow-up with her PMD and neurologist regarding her renal function given frequent Toradol injections from the ED Patient agrees to follow-up with neurologist this week Discharge - Discharge Information Problems reviewed: Yes Clinical Impression/Diagnosis: Migraine Qualifiers: Migraine type: unspecified Intractability: not intractable Condition: Stable Disposition: HOME - Admission No - Follow up/Referral Referrals: Chantle Soto MD [Primary Care Provider] - - Patient Discharge Instructions Additional Instructions: Follow-up with your neurologist this week Have your primary care doctor or neurologist check your renal function given your frequent Toradol injections Continue your headache regimen prescribed to you by your neurologist - Post Discharge Activity
[2019-04-15] MEDS ORDERED: KETOROLAC TROMETHAMINE 15 MG/ML VIAL ONE (17:56)
== END 2019-04-15 18:13 | disposition home or self-care (01) ==
LOC: JERFT 15:55 → JER 15:55 → JERFT 18:13
PROC: 3E023GC Introduction of Other Therapeutic Substance into Muscle, Percutaneous Approach (ICD-10-PCS; principal; 2019-04-15)
PROC: 3E0233Z Introduction of Anti-inflammatory into Muscle, Percutaneous Approach (ICD-10-PCS; 2019-04-15)
DX: G43.909 Migraine, unspecified, not intractable, without status migrainosus (principal)
CPT/HCPCS: 84703; 96372; 99284-25

== ENCOUNTER 2019-04-16 06:41 | Emergency (ER) | payer OTHER ==
[2019-04-16 07:16] VITALS: BP 122/72; PULSE 78; BMI 36.8
[2019-04-16] MEDS ORDERED: SODIUM CHLORIDE 1,000 ML IV STA (07:36)
[2019-04-16] MEDS ORDERED: METOCLOPRAMIDE HCL INJECTION 10 MG/2 ML VIAL IVPUSH ONE (07:36)
[2019-04-16] MEDS ORDERED: ACETAMINOPHEN 1000 MG/100 ML VIAL (NON FORMULARY) IVPB ONE (07:36)
--- NOTE | 2019-04-16 07:46 | PDOC ---
History of Present Illness - General Chief Complaint: Headache Stated Complaint: MIGRAINE History Source: Patient Exam Limitations: No Limitations - History of Present Illness Initial Comments: 04/16/19 07:37 48 yo female pmh HTN and chronic migraines presents to the ED for a migraine that began yesterday. Pt seen yesterday in the ED, given IV Toradol and IV Benadryl without relief of symptoms. Pt states her sons birthday was yesterday and the excess stress is usually a trigger. Pt admits to nausea, light sensitivity and sensitivity to loud noises which are normal findings during past migraines. Todays headache is described as the same intensity and severity as past headaches without new neurological symptoms, denies F/C, neck pain, changes in vision, weakness/sensory deficits on 1 side, incontinence/retention of bowel or bladder, CP, SOB, abdominal pain. Pt has botox injections every 3 weeks. Pt states she will call her Neuro headache specialist at [facility] at 9 am who usually sends out an unknown medication which breaks her migraines but believes fluids and tylenol will help today. Past History - Past Medical History Allergies/Adverse Reactions: Allergies Allergy/AdvReac Type Severity Reaction Status Date / Time No Known Allergies Allergy Verified 04/16/19 07:12 Home Medications: Ambulatory Orders Atorvastatin 40 mg PO DAILY 03/24/18 Cyclobenzaprine HCl [Flexeril 10 mg] 10 mg PO PRN PRN 10/24/18 Pantoprazole Sodium 40 mg PO DAILY 04/16/19 Cardiac Disorders: Yes (pericarditis) COPD: No DVT: No GI Disorders: Yes (GERD) Hypercholesterolemia: Yes - Immunization History Immunization Up to Date: Yes - Psycho Social/Smoking Cessation Hx Smoking Status: No Smoking History: Never smoked Have you smoked in the past 12 months: No Number of Cigarettes Smoked Daily: 0 If you are a former smoker, when did you quit?: 15 years ago Hx Alcohol Use: No Drug/Substance Use Hx: No Substance Use Type: None Hx Substance Use Treatment: No Review of Systems - Review of Systems Constitutional: No: Chills, Fever HEENTM: No: Eye Pain, Blurred Vision, Double Vision Respiratory: No: Shortness of Breath Cardiac (ROS): No: Chest Pain ABD/GI: Yes: Nausea. No: Constipated, Diarrhea, Vomiting : No: Burning, Dysuria, Frequency, Flank Pain Musculoskeletal: No: Back Pain, Muscle Pain, Neck Pain Integumentary: No: Rash Neurological: Yes: Headache. No: Numbness, Paresthesia, Weakness, Unsteady Gait , Ataxia, Dizziness *Physical Exam - Vital Signs Last Vital Signs Temp Pulse Resp BP Pulse Ox 78 18 122/72 100 04/16/19 07:13 04/16/19 07:13 04/16/19 07:13 04/16/19 07:13 - Physical Exam General Appearance: Yes: Nourished, Appropriately Dressed. No: Apparent Distress HEENT: positive: EOMI, JOSE JUAN, Hearing Grossly Normal. negative: Scleral Icterus (R), Scleral Icterus (L) Neck: positive: Supple. negative: Carotid bruit Respiratory/Chest: positive: Lungs Clear, Normal Breath Sounds. negative: Respiratory Distress, Accessory Muscle Use, Rapid RR, Crackles, Rales, Rhonchi, Stridor, Wheezing Cardiovascular: positive: Regular Rhythm, Regular Rate, S1, S2. negative: Edema , JVD, Murmur Vascular Pulses: Dorsalis-Pedis (R): 4+, Doralis-Pedis (L): 4+ Gastrointestinal/Abdominal: positive: Flat, Soft. 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 negative: Facial Droop, Numbness, Sensory Deficit, Finger to Nose, Confused, Disoriented Medical Decision Making - Medical Decision Making 04/16/19 07:59 48 yo female pmh HTN and chronic migraines presents to the ED for a migraine that began yesterday. Pt seen yesterday in the ED, given IV Toradol and IV Benadryl without relief of symptoms. Pt states her sons birthday was yesterday and the excess stress is usually a trigger. Pt admits to nausea, light sensitivity and sensitivity to loud noises which are normal findings during past migraines. Todays headache is described as the same intensity and severity as past headaches without new neurological symptoms, denies F/C, neck pain, changes in vision, weakness/sensory deficits on 1 side, incontinence/retention of bowel or bladder, CP, SOB, abdominal pain. Pt has botox injections every 3 weeks. Pt states she will call her Neuro headache specialist at [facility] at 9 am who usually sends out an unknown medication which breaks her migraines but believes fluids and tylenol will help today. joe WNL Pt well appearing, sitting up in bed, ambulates without difficulty MRI last month Brain WNL Todays OSCAR is the same presentation as past migraines as stated by pt. No imaging or labs required today, discussed with pt and agrees with plan to treat OSCAR symptomatically Given IV fluids, Tylenol and Reglan reassess and pt will contact Neurologist at 9 am 04/16/19 09:00 Pt admits to improvement of OSCAR after medications and states she will f/u with primary neurology clinic today safe for DC home Discharge - Discharge Information Problems reviewed: Yes Clinical Impression/Diagnosis: Migraine Condition: Improved Disposition: HOME - Admission No - Follow up/Referral Referrals: Chantel Soto MD [Primary Care Provider] - - Patient Discharge Instructions Patient Printed Discharge Instructions: DI for Migraine Additional Instructions: Please see your Neurologist as soon as possible and your Primary Doctor within the next 48 hours. Continue taking your prescribed medications for headaches. Return to the ER for new or concerning symptoms. Thank you - Post Discharge Activity
--- NOTE | 2019-04-16 07:49 | PDOC ---
Attending Attestation - Resident Resident Name: KhadraAyaz - ED Attending Attestation I have performed the following: I have examined & evaluated the patient, The case was reviewed & discussed with the resident, I agree w/resident's findings & plan, Exceptions are as noted - HPI HPI: 04/16/19 07:48 48y F hx of migraine headache, high cholesterol persents with 2 days of headache consistent with her previous migraines. Patient states she had a stressful day with her son's birthday yesterday and had not eaten or drank too much, her headache is localized to the frontal aspect and is a pressure-like pain that is nonradiating without associated vision changes, focal numbness, tingling, weakness, vomiting. Patient does feel a little bit nauseous and slight photophobia. She came yesterday and had Toradol and Benadryl with some mild relief however was not completely gone so she came back today for further management. Patient states the headache is similar to previous headaches. She denies any other symptoms including fever, chills, neck pain, chest pain, shortness of breath, abdominal pain. exam: GENERAL: The patient is awake, alert, and fully oriented, Nontoxic - in no acute distress. HEAD: Normocephalic, atraumatic. EYES: extraocular movements intact, sclera anicteric, conjunctiva clear. NEUROLOGICAL: No facial assymetry, Normal speech, moving all 4 expect extremity spontaneously and symmetrically PSYCH: Normal mood, normal affect. SKIN: Warm, Dry, normal turgor, Impression and plan: Migraine headache: We will treat with Reglan, Tylenol, fluids hydration No clinical signs or symptoms suggesting acute causes of her headache. Patient states that she will follow-up with her neurologist later today - Physicial Exam PE: 04/16/19 09:16 see above - Medical Decision Making 04/16/19 09:16 Patient is feeling improved with resolution of her headache will discharge patient follow-up with her headache clinic at [facility]. Return precautions were discussed
[2019-04-16 07:59] VITALS: TEMP 98.1
[2019-04-16] MEDS ORDERED: METOCLOPRAMIDE HCL INJECTION 10 MG/2 ML VIAL ONE (08:07)
[2019-04-16] MEDS ORDERED: ACETAMINOPHEN INJECTION 100 ML IVPB ONE (08:07)
== END 2019-04-16 09:34 | disposition home or self-care (01) ==
LOC: JER 06:41
PROC: 3E033GC Introduction of Other Therapeutic Substance into Peripheral Vein, Percutaneous Approach (ICD-10-PCS; principal; 2019-04-16)
PROC: 3E033NZ Introduction of Analgesics, Hypnotics, Sedatives into Peripheral Vein, Percutaneous Approach (ICD-10-PCS; 2019-04-16)
DX: G43.909 Migraine, unspecified, not intractable, without status migrainosus (principal); I10 Essential (primary) hypertension; E78.00 Pure hypercholesterolemia, unspecified; K21.9 Gastro-esophageal reflux disease without esophagitis; Z86.79 Personal history of other diseases of the circulatory system
CPT/HCPCS: 96374; 96375; 99284-25; J0131; J7030

== ENCOUNTER 2019-05-05 13:22 | Emergency (ER) | payer OTHER ==
[2019-05-05 13:27] VITALS: BP 125/76; PULSE 66; TEMP 99; BMI 36.0
[2019-05-05] MEDS ORDERED: CYCLOBENZAPRINE HCL 10 MG TABLET (FP) PO ONE (13:37)
[2019-05-05] MEDS ORDERED: IBUPROFEN 400 MG TABLET (FP) PO ONE (13:37)
[2019-05-05] MEDS ORDERED: CYCLOBENZAPRINE HCL 10 MG TABLET (FP) ONE (13:39)
--- NOTE | 2019-05-05 13:41 | PDOC ---
History of Present Illness - General Chief Complaint: Injury Stated Complaint: slip and fall Time Seen by Provider: 05/05/19 13:35 History Source: Patient - History of Present Illness Occurred: reports: this afternoon Pain Location: reports: back, neck Past History - Past Medical History Allergies/Adverse Reactions: Allergies Allergy/AdvReac Type Severity Reaction Status Date / Time No Known Allergies Allergy Verified 05/05/19 13:27 Home Medications: Ambulatory Orders Atorvastatin 40 mg PO DAILY 03/24/18 Cyclobenzaprine HCl [Flexeril 10 mg] 10 mg PO PRN PRN 10/24/18 Pantoprazole Sodium 40 mg PO DAILY 04/16/19 Cyclobenzaprine HCl [Flexeril 10 mg] 10 mg PO HS #9 tablet 05/05/19 Ibuprofen [Motrin -] 800 mg PO Q6H #30 tablet 05/05/19 Cardiac Disorders: Yes (pericarditis) COPD: No DVT: No GI Disorders: Yes (GERD) Hypercholesterolemia: Yes Other medical history: migraines - Immunization History Immunization Up to Date: Yes - Psycho Social/Smoking Cessation Hx Smoking Status: No Smoking History: Never smoked Have you smoked in the past 12 months: No Number of Cigarettes Smoked Daily: 0 If you are a former smoker, when did you quit?: 15 years ago Hx Alcohol Use: No Drug/Substance Use Hx: No Substance Use Type: None Hx Substance Use Treatment: No Review of Systems - Review of Systems Musculoskeletal: Yes: Back Pain, Neck Pain Neurological: No: Headache, Numbness, Tingling, Weakness, Dizziness *Physical Exam - Vital Signs Last Vital Signs Temp Pulse Resp BP Pulse Ox 99.0 F 66 18 125/76 99 05/05/19 13:24 05/05/19 13:24 05/05/19 13:24 05/05/19 13:24 05/05/19 13:24 - Physical Exam General Appearance: Yes: Appropriately Dressed. No: Apparent Distress HEENT: positive: Normal Voice Neck: positive: Supple Respiratory/Chest: positive: Lungs Clear, Normal Breath Sounds. negative: Respiratory Distress Cardiovascular: positive: Regular Rate, S1, S2 Gastrointestinal/Abdominal: positive: Soft Musculoskeletal: positive: Vertebral Tenderness (to R mid back) Integumentary: positive: Dry, Warm Neurologic: positive: Fully Oriented, Alert, Normal Mood/Affect Medical Decision Making - Medical Decision Making 05/05/19 13:39 48-year-old female, no significant history, here with R mid back pain after near fall today. States she tripped while walking on the street but was able to stop herself from falling. Also complaining of mild neck pain. No neuro symptoms.. Able to ambulate. see exam M/l muscle strain No e/o serious injury on exam Dc w/ pain control PMD f/u as needed Discharge - Discharge Information Problems reviewed: Yes Clinical Impression/Diagnosis: Back strain Qualifiers: Encounter type: initial encounter Qualified Code(s): S39.012A - Strain of muscle, fascia and tendon of lower back, initial encounter Condition: Good Disposition: HOME - Additional Discharge Information Prescriptions: Cyclobenzaprine HCl [Flexeril 10 mg] 10 mg PO HS #9 tablet Ibuprofen [Motrin -] 800 mg PO Q6H #30 tablet - Follow up/Referral Referrals: Chantel Soto MD [Primary Care Provider] - - Patient Discharge Instructions Patient Printed Discharge Instructions: DI for Back Strain or Sprain - Post Discharge Activity
== END 2019-05-05 13:42 | disposition home or self-care (01) ==
LOC: JERFT 13:22
DX: S39.012A Strain of muscle, fascia and tendon of lower back, initial encounter (principal)
CPT/HCPCS: 99283-25

== ENCOUNTER 2019-05-24 19:44 | Emergency (ER) | payer OTHER ==
--- NOTE | 2019-05-24 20:02 | PDOC ---
Rapid Medical Evaluation Time Seen by Provider: 05/24/19 20:02 Medical Evaluation: Allergies Allergy/AdvReac Type Severity Reaction Status Date / Time No Known Allergies Allergy Verified 05/05/19 13:27 05/24/19 20:02 HPI: The patient is a 48-year-old female with frequent ED visits for migraines presenting with 4 days of intermittent chest pain, worse with exertion. Some RESENDEZ. Took pantoprazole without relief. No fever, cough, diarrhea, other symptoms suggestive of COVID-19. ROS: NEGATIVE: difficulty breathing, shortness of breath, chest pain, lightheadedness, dizziness, nausea, vomiting and diarrhea. Other 12 point ROS reviewed and negative. Exam: General: NAD, Well-Appearing, Awake, Alert Oriented x3. BP 150/92. ENT: No rhinorrhea or nasal congestion. Neck: FROM, no midline tenderness. Lungs: Clear to auscultation bilaterally without wheezes, rhonchi or rales. Normal excursion. Patient is able to speak in full sentences. Heart: HR: Regular rhythm, S1-S2 present, no murmurs rubs or gallops. Abdomen: Non-distended. MSK/Extremities: No decrease ROM, No obvious deformities. No obvious cyanosis noted. Neuro: Normal Gait, Cranial Nerves II through XII Grossly Intact. Skin: No obvious rashes, bruising. Color Normal Appearing. Assessment/Plan: [Cough/fever] Patient has a history of this/these comorbidities: [none], denies recent travel and known COVID exposure. Patient does not meet testing criteria at this time. ASSESSMENT: Denies recent travel and known Covid exposure. Treatment: EKG CXR Main ED for further eval 05/24/19 20:06 Discharge Disposition - Diagnosis Chest pain - Referrals - Patient Instructions - Post Discharge Activity
[2019-05-24 20:11] VITALS: BP 150/92; PULSE 114; TEMP 98.3
[2019-05-24] MEDS ORDERED: MAG HYDROX/AL HYDROX/SIMETH 30 ML UNIT-DOSE CUP PO ONE (21:11)
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
[2019-05-24] MEDS ORDERED: MAG HYDROX/AL HYDROX/SIMETH 30 ML UNIT-DOSE CUP ONE (21:27)
[2019-05-24 21:52] LABS: BASO % 0.8 % (0-2.0); EOS % 0.6 % (0-4.5); HEMATOCRIT 38.5 % (32.4-45.2); HEMOGLOBIN 12.5 GM/dL (10.7-15.3); MCH 27.8 pg (25.7-33.7); MCHC 32.6 g/dl (32.0-36.0); MEAN CELL VOLUME 85.5 fl (80-96); MEAN PLT VOLUME 7.9 fl (7.5-11.1); MONO % 5.8 % (3.8-10.2); NEUT % 60.8 % (42.8-82.8); PLATELET COUNT 338 K/MM3 (134-434); RDW 15.3 % (11.6-15.6); WHITE BLOOD COUNT 10.3 K/mm3 (4.0-10.0)
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
--- NOTE | 2019-05-27 14:54 | EKG ---
Test Reason : Blood Pressure : / mmHG Vent. Rate : 098 BPM Atrial Rate : 098 BPM P-R Int : 174 ms QRS Dur : 090 ms QT Int : 358 ms P-R-T Axes : 071 081 067 degrees QTc Int : 457 ms NORMAL SINUS RHYTHM NORMAL ECG WHEN COMPARED WITH ECG OF 27-JUN-2018 04:44, NO SIGNIFICANT CHANGE WAS FOUND Confirmed by PHYLLIS HEART MD ([id number]) on 05/27/2019 2:53:52 PM Referred By: Confirmed By:PHYLLIS HEART MD
== END 2019-05-24 22:44 | disposition home or self-care (01) ==
LOC: JER 19:44 → JERFT 19:44
DX: R07.89 Other chest pain (principal)
CPT/HCPCS: 36415; 71046-TC-FY; 82550; 82553; 84484; 85025; 93005; 93010; 99285-25

== ENCOUNTER 2019-08-19 18:11 | Emergency (ER) | payer OTHER ==
[2019-08-19] MEDS ORDERED: KETOROLAC TROMETHAMINE 60 MG/2 ML VIAL IM ONE (18:17)
[2019-08-19 18:22] VITALS: BP 116/75; PULSE 89; TEMP 98.8; BMI 36.0
[2019-08-19] MEDS ORDERED: KETOROLAC TROMETHAMINE 60 MG/2 ML VIAL ONE (18:46)
== END 2019-08-19 19:12 | disposition home or self-care (01) ==
LOC: JER 18:11
PROC: 3E033NZ Introduction of Analgesics, Hypnotics, Sedatives into Peripheral Vein, Percutaneous Approach (ICD-10-PCS; principal; 2019-08-19)
DX: R51 Headache (principal)
CPT/HCPCS: 99284-25

== ENCOUNTER 2019-08-21 11:02 | Emergency (ER) | payer OTHER ==
[2019-08-21 11:10] VITALS: BP 117/70; PULSE 85; TEMP 99; BMI 36.0
--- NOTE | 2019-08-21 11:44 | PDOC ---
History of Present Illness - General Chief Complaint: Headache Stated Complaint: Headache Time Seen by Provider: 08/21/19 11:09 History Source: Patient Exam Limitations: No Limitations Past History - Travel History Traveled outside of the country in the last 30 days: No Close contact w/someone who was outside of country & ill: No - Medical History Allergies/Adverse Reactions: Allergies Allergy/AdvReac Type Severity Reaction Status Date / Time No Known Allergies Allergy Verified 08/21/19 11:04 Home Medications: Ambulatory Orders Atorvastatin 40 mg PO DAILY 03/24/18 Cyclobenzaprine HCl [Flexeril 10 mg] 10 mg PO PRN PRN 10/24/18 Pantoprazole Sodium 40 mg PO DAILY 04/16/19 Cyclobenzaprine HCl [Flexeril 10 mg] 10 mg PO HS #9 tablet 05/05/19 Ibuprofen [Motrin -] 800 mg PO Q6H #30 tablet 05/05/19 Cardiac Disorders: Yes (pericarditis) COPD: No DVT: No Diabetes: No GI Disorders: Yes (GERD) HTN: No Hypercholesterolemia: Yes - Immunization History Immunization Up to Date: Yes - Psycho-Social/Smoking History Smoking Status: No Smoking History: Never smoked Have you smoked in the past 12 months: No Number of Cigarettes Smoked Daily: 0 If you are a former smoker, when did you quit?: 15 years ago - Substance Abuse Hx (Audit-C & DAST Scrn) How often the patient has a drink containing alcohol: Never Score: In Men: 4 or > Positive; In Women: 3 or > Positive: 0 Screen Result (Pos requires Nsg. Audit-10AR): Negative In the last yr the pt used illegal drug/Rx for NonMed reason: No Score: Yes response is considered Positive: 0 Screen Result (Positive result requires Nsg. DAST-10): Negative Review of Systems - Review of Systems Able to Perform ROS?: Yes Comments:: 08/21/19 14:10 CONSTITUTIONAL: Absent: fever, chills, diaphoresis, generalized weakness, malaise, loss of appetite HEENT: Absent: rhinorrhea, nasal congestion, throat pain, throat swelling, difficulty swallowing, mouth swelling, ear pain, eye pain, visual Changes CARDIOVASCULAR: Absent: chest pain, loss of consciousness, palpitations, irregular heart rate, peripheral edema RESPIRATORY: Absent: cough, shortness of breath, dyspnea with exertion, orthopnea, wheezing, stridor, hemoptysis GASTROINTESTINAL: Absent: abdominal pain, abdominal distension, nausea, vomiting, diarrhea, constipation, melena, hematochezia GENITOURINARY: Absent: dysuria, frequency, urgency, hesitancy, hematuria, flank pain, genital pain MUSCULOSKELETAL: Absent: myalgia, arthralgia, joint swelling SKIN: Absent: rash, itching, pallor HEMATOLOGIC/IMMUNOLOGIC: Absent: easy bleeding, easy bruising, lymphadenopathy, frequent infections ENDOCRINE: Absent: unexplained weight gain, unexplained weight loss, heat intolerance, cold intolerance NEUROLOGIC: Present: Lightheadedness absent: headache, focal weakness or paresthesias, dizziness, unsteady gait, seizure, mental status changes, bladder or bowel incontinence PSYCHIATRIC: Absent: anxiety, depression, suicidal or homicidal ideation, hallucinations. Is the patient limited [place]ian proficient: No *Physical Exam - Vital Signs Last Vital Signs Temp Pulse Resp BP Pulse Ox 99 F 85 18 117/70 100 08/21/19 11:04 08/21/19 11:04 08/21/19 11:04 08/21/19 11:04 08/21/19 11:04 - Physical Exam 08/21/19 14:15 GENERAL: Well developed, well nourished. Awake and alert. No acute distress. HEENT: Normocephalic, atraumatic. PERRLA, EOMI. No conjunctival pallor. Sclera are non- icteric. Moist mucous membranes. Oropharynx is clear. NECK: Supple. Full ROM. No JVD. Carotid pulses 2+ and symmetric, without bruits. No thyromegaly. No lymphadenopathy. CARDIOVASCULAR: Regular rate and rhythm. No murmurs, rubs, or gallops. Distal pulses are 2+ and symmetric. PULMONARY: No evidence of respiratory distress. Lungs clear to auscultation bilaterally. No wheezing, rales or rhonchi. ABDOMINAL: Soft. Non-tender. Non-distended. No rebound or guarding. No organomegaly. Normoactive bowel sounds. MUSCULOSKELETAL Normal range of motion at all joints. No bony deformities or tenderness. No CVA tenderness. EXTREMITIES: No cyanosis. No clubbing. No edema. No calf tenderness. SKIN: Warm and dry. Normal capillary refill. No rashes. No jaundice. NEUROLOGICAL: Alert, awake, appropriate. Cranial nerves 2-12 intact. No deficits to light touch and temperature in face, upper extremities and lower extremities. No motor deficits in the in face, upper extremities and lower extremities. Normoreflexic in the upper and lower extremities. Normal speech. Toes are down-going bilaterally. Gait is normal without ataxia. PSYCHIATRIC: Cooperative. Good eye contact. Appropriate mood and affect. ED Treatment Course - LABORATORY CBC & Chemistry Diagram: 08/21/19 11:35 08/21/19 11:35 Medical Decision Making - Medical Decision Making 08/21/19 14:15 Patient is a 48-year-old female past medical history of migraines, well-known to this department, presents to the ER for lightheadedness. She states that she was seen 2 days ago for a migraine headache after standing outside in the sun. She states that her headache was treated in the ER with Toradol and she felt much better. She states that yesterday and today she has been standing outside in the heat and now she feels very lightheaded. She notes that she has not eaten or drank anything today. Denies fevers, chills, headache, dizziness, chest pain, shortness of breath, nausea, vomiting and diarrhea. A/P: Dehydration On exam lungs are clear auscultation bilaterally that wheezes rales or rhonchi. Heart with regular rate and rhythm, S1-S2 present no murmurs rubs or gallops. Cap refill less than 3 seconds. EKG: Rate 71 bpm, normal sinus rhythm. Normal intervals and axis. No acute ST- T wave changes. Overall normal EKG. Given heat exposure, suspect dehydration versus heat exhaustion. Basic labs ordered: No acute abnormalities identified. Troponin negative. Patient feels relief of symptoms after 2 L of fluid and IV Tylenol. Vital signs within normal limits. Patient is afebrile. We will discharge patient home to continue drinking and avoid the heat. I discussed the physical exam findings, ancillary test results and final diagnoses with the patient. I answered all of the patient's questions. The patient was satisfied with the care received and felt comfortable with the discharge plan and treatment plan. The Patient agrees to follow up with the primary care physician/specialist within 24-72 hours. Return precautions were given. Discharge - Discharge Information Problems reviewed: Yes Clinical Impression/Diagnosis: Dehydration Condition: Stable Disposition: HOME - Admission No - Follow up/Referral Referrals: Chantel Soto MD [Primary Care Provider] - - Patient Discharge Instructions Patient Printed Discharge Instructions: DI for Heat Exhaustion and Heat Stroke Additional Instructions: You were seen for your dehydration and possible heat exhaustion. Please continue to drink plenty of fluids at home. Please use air conditioning if you have it, avoid the outdoors during extreme temperatures You may take a cool bath to help with your symptoms. Please follow-up with your primary care doctor this week. Return to the ER for increasing dizziness, lightheadedness, if you are not acting like herself or if you have any changes in her symptoms - Post Discharge Activity Work/Back to School Note: Back to Work
[2019-08-21] MEDS ORDERED: SODIUM CHLORIDE 1,000 ML IV STA ×2 (11:51→13:08)
[2019-08-21 12:23] LABS: BASO % 0.9 % (0-2.0); EOS % 0.3 % (0-4.5); HEMATOCRIT 37.8 % (32.4-45.2); HEMOGLOBIN 12.2 GM/dL (10.7-15.3); LYMPH % 34.9 % (8-40); MCH 27.2 pg (25.7-33.7); MCHC 32.2 g/dl (32.0-36.0); MEAN CELL VOLUME 84.7 fl (80-96); MEAN PLT VOLUME 8.7 fl (7.5-11.1); MONO % 6.9 % (3.8-10.2); PLATELET COUNT 305 K/MM3 (134-434); RBC 4.46 M/mm3 (3.60-5.2); RDW 16.4 % (11.6-15.6); WHITE BLOOD COUNT 6.1 K/mm3 (4.0-10.0)
[2019-08-21 12:55] LABS: ALBUMIN 3.6 g/dl (3.4-5.0); ALK PHOS 90 U/L (45-117); ANION GAP 9 MMOL/L (8-16); BILIRUBIN,TOTAL 0.4 mg/dL (0.2-1); BLOOD UREA NITROGEN 10.5 mg/dL (7-18); CHLORIDE 110 mmol/L (98-107); CO2 20 mmol/L (21-32); CREATININE 0.9 mg/dL (0.55-1.3); GLUCOSE,RANDOM 97 mg/dL (74-106); POTASSIUM 4.1 mmol/L (3.5-5.1); SGOT/AST 21 U/L (15-37); SGPT/ALT 19 U/L (13-61); SODIUM 139 mmol/L (136-145); TOT PROT 7.6 g/dl (6.4-8.2)
[2019-08-21 13:11] LABS: PH,URINE 5.5 (5.0-8.0); URINE APPEARANCE CLEAR; URINE BILIRUBIN NEGATIVE (NEGATIVE); URINE COLOR YELLOW; URINE GLUCOSE (UA) NEGATIVE (NEGATIVE); URINE KETONE NEGATIVE (NEGATIVE); URINE LEUK ESTERASE NEGATIVE (NEGATIVE); URINE NITRITE NEGATIVE (NEGATIVE); URINE PROTEIN NEGATIVE (NEGATIVE); URINE UROBILINOGEN 0.2 mg/dL (0.2-1.0)
[2019-08-21] MEDS ORDERED: ACETAMINOPHEN 1000 MG/100 ML VIAL (NON FORMULARY) IVPB ONE (13:11)
[2019-08-21] MEDS ORDERED: ACETAMINOPHEN INJECTION 100 ML IVPB ONE (13:13)
[2019-08-21 13:15] LABS: HCG,QUALITATIVE URINE Negative
--- NOTE | 2019-08-21 13:43 | EKG ---
Test Reason : Blood Pressure : / mmHG Vent. Rate : 071 BPM Atrial Rate : 071 BPM P-R Int : 172 ms QRS Dur : 084 ms QT Int : 384 ms P-R-T Axes : 069 062 047 degrees QTc Int : 417 ms NORMAL SINUS RHYTHM NORMAL ECG WHEN COMPARED WITH ECG OF 12-AUG-2019 14:34, NO SIGNIFICANT CHANGE WAS FOUND Confirmed by MD Lynn Edward ([id number]) on 08/21/2019 1:42:59 PM Referred By: Confirmed By:Delmer Lynn MD
== END 2019-08-21 14:21 | disposition home or self-care (01) ==
LOC: JERFT 11:02 → JER 11:02 → JERFT 14:21
PROC: 3E033GC Introduction of Other Therapeutic Substance into Peripheral Vein, Percutaneous Approach (ICD-10-PCS; principal; 2019-08-21)
PROC: 3E0337Z Introduction of Electrolytic and Water Balance Substance into Peripheral Vein, Percutaneous Approach (ICD-10-PCS; principal; 2019-08-21)
DX: E86.0 Dehydration (principal)
CPT/HCPCS: 36415; 80053; 81003; 82550; 82553; 84484; 84703; 85025; 87086; 93005; 93010; 99284-25; J0131

== ENCOUNTER 2019-09-05 18:57 | Emergency (ER) | payer OTHER ==
[2019-09-05 19:08] VITALS: BP 136/87; PULSE 95; TEMP 98.3; BMI 36.0
[2019-09-05] MEDS ORDERED: KETOROLAC TROMETHAMINE 30 MG/1 ML VIAL IM ONE (19:30)
[2019-09-05] MEDS ORDERED: SODIUM CHLORIDE 0.9% 500 ML INFUS.BAG IV ONE (19:38)
[2019-09-05] MEDS ORDERED: ACETAMINOPHEN 500 MG TABLET (FP) PO ONE (19:38)
[2019-09-05] MEDS ORDERED: ACETAMINOPHEN 325 MG TABLET (FP) ONE (19:41)
[2019-09-05 20:06] LABS: BASO % 0.5 % (0-2.0); EOS % 0.4 % (0-4.5); HEMATOCRIT 38.9 % (32.4-45.2); HEMOGLOBIN 12.5 GM/dL (10.7-15.3); LYMPH % 37.1 % (8-40); MCH 27.4 pg (25.7-33.7); MCHC 32.2 g/dl (32.0-36.0); MEAN CELL VOLUME 84.9 fl (80-96); MEAN PLT VOLUME 8.2 fl (7.5-11.1); MONO % 5.6 % (3.8-10.2); NEUT % 56.4 % (42.8-82.8); PLATELET COUNT 328 K/MM3 (134-434); RBC 4.58 M/mm3 (3.60-5.2); RDW 15.8 % (11.6-15.6); WHITE BLOOD COUNT 8.6 K/mm3 (4.0-10.0)
--- NOTE | 2019-09-05 20:33 | PDOC ---
History of Present Illness - General Chief Complaint: Headache Stated Complaint: HEADACHE/CONSTANT THIRST/ Time Seen by Provider: 09/05/19 19:08 History Source: Patient Exam Limitations: No Limitations - History of Present Illness Initial Comments: 09/05/19 19:46 48-year-old female past medical history of migraine headaches well-known to the ER presents complaining of headache and weakness x2 days. Patient states that she is been spending a lot of time in the sun and her apartment is very hot. Patient states that she feels as if she has heat exhaustion since she has been spending so much time in the heat without drinking plenty of water. pts Headache not associated with lacrimation, fever, vomiting, changes in vision, photophobia or neck stiffness; not maximal intensity at onset and non-exertional at onset. Pt otherwise denies: fevers, chills, syncope, lightheadedness, dizziness, neck pain, chest pain, shortness of breath, palpitations, back pain, abdominal pain, nausea, vomiting, diarrhea, constipation. 09/05/19 19:47 Past History - Medical History Allergies/Adverse Reactions: Allergies Allergy/AdvReac Type Severity Reaction Status Date / Time No Known Allergies Allergy Verified 09/05/19 19:09 Home Medications: Ambulatory Orders Atorvastatin 40 mg PO DAILY 03/24/18 Cyclobenzaprine HCl [Flexeril 10 mg] 10 mg PO PRN PRN 10/24/18 Pantoprazole Sodium 40 mg PO DAILY 04/16/19 Cyclobenzaprine HCl [Flexeril 10 mg] 10 mg PO HS #9 tablet 05/05/19 Ibuprofen [Motrin -] 800 mg PO Q6H #30 tablet 05/05/19 Prochlorperazine Maleate [Compazine] 10 mg PO DAILY 09/05/19 Cardiac Disorders: Yes (pericarditis) COPD: No DVT: No Diabetes: No GI Disorders: Yes (GERD) HTN: No Hypercholesterolemia: Yes - Immunization History Immunization Up to Date: Yes - Psycho-Social/Smoking History Smoking Status: No Smoking History: Never smoked Have you smoked in the past 12 months: No Number of Cigarettes Smoked Daily: 0 If you are a former smoker, when did you quit?: 15 years ago Information on smoking cessation initiated: No - Substance Abuse Hx (Audit-C & DAST Scrn) How often the patient has a drink containing alcohol: Never Score: In Men: 4 or > Positive; In Women: 3 or > Positive: 0 Screen Result (Pos requires Nsg. Audit-10AR): Negative In the last yr the pt used illegal drug/Rx for NonMed reason: No Score: Yes response is considered Positive: 0 Screen Result (Positive result requires Nsg. DAST-10): Negative Review of Systems - Review of Systems Constitutional: Yes: Weakness. No: Chills, Fever HEENTM: No: Blurred Vision Respiratory: No: Shortness of Breath Cardiac (ROS): No: Chest Pain ABD/GI: No: Abdominal Distended : No: Burning, Dysuria Musculoskeletal: No: Back Pain Integumentary: No: Bruising Neurological: Yes: Headache. No: Numbness, Paresthesia, Tingling, Tremors *Physical Exam - Vital Signs Last Vital Signs Temp Pulse Resp BP Pulse Ox 98.3 F 95 H 18 136/87 100 09/05/19 19:06 09/05/19 19:06 09/05/19 19:06 09/05/19 19:06 09/05/19 19:06 - Physical Exam 09/05/19 19:49 Gen: AAOx 3, no acute distress, comfortable, no signs of respiratory distress HENT: atraumatic, normocephalic with no laceration or contusion. Nasal mucosa without erythema. Oropharynx without erythema or exudates. Mucous membranes [address] EYES: PERRL, EOM intact, conjunctiva pink NECK: supple; trachea midline; no JVD, no lymphadenopathy, or thyromegaly CV: RRR no murmurs, gallops, or rubs. CHEST: CTA b/l no wheezing, rales or rhonchi ABD: +BS/ND. no TTP; soft, no rebound, no guarding EXTREMITY: no cyanosis or erythema. 2+ dorsalis pedis, posterior tibial, and radial pulse. No pedal edema; no calf swelling or tenderness SKIN: no rash, warm and dry, no diaphoresis HEME: no purpura or ecchymosis NEURO: normal speech, CN II-XII intact, sensation intact, normal gait, no cerebellar deficits MS: 5/5 strength in all extremities, FROM intact in all extremities. ED Treatment Course - LABORATORY CBC & Chemistry Diagram: 09/05/19 19:50 09/05/19 19:50 - Medications Given in the ED: ED Medications Discontinued Medications Generic Name Dose Route Start Last Admin Trade Name Travis PRN Reason Stop Dose Admin Ketorolac Tromethamine 30 mg 09/05/19 19:30 09/05/19 19:40 Toradol Injection - IM 09/05/19 19:31 Not Given ONCE ONE Medical Decision Making - Medical Decision Making 09/05/19 19:49 48 year old female with OSCAR and weakness VSS Will obtain CBC and CMP to assess for electrolyte abnormalities as well as anemia Will give 1 L NS Tylenol for symptomatic relief Will reassess based on results Labs WNL Pt reports relief of symptoms with meds and fluids, pt states she no longer has OSCAR or feels weak Pt instructed on proper hydration. Strict return precautions Supportive care instructions explained and given to pt. Reasons to return emergently to ER explained and given. Importance of follow up with PMD and other specialists as indicated stressed to pt. Pt verbalized understanding of instructions. Pt to follow up with PMD in 2 days. 09/05/19 20:47 Discharge - Discharge Information Problems reviewed: Yes Clinical Impression/Diagnosis: Dehydration Condition: Stable Disposition: HOME - Admission No - Follow up/Referral Referrals: Chantel Soto MD [Primary Care Provider] - - Patient Discharge Instructions Patient Printed Discharge Instructions: DI for Dehydration -- Adult Additional Instructions: Please follow up with your PCP without fail - Post Discharge Activity
[2019-09-05 20:46] LABS: ALBUMIN 3.7 g/dl (3.4-5.0); BILIRUBIN,TOTAL 0.3 mg/dL (0.2-1); BLOOD UREA NITROGEN 13.2 mg/dL (7-18); CALCIUM 9.1 mg/dL (8.5-10.1); POTASSIUM 3.7 mmol/L (3.5-5.1)
--- NOTE | 2019-09-05 21:25 | PDOC ---
*Physical Exam - Vital Signs Last Vital Signs Temp Pulse Resp BP Pulse Ox 98.3 F 95 H 18 136/87 100 09/05/19 19:06 09/05/19 19:06 09/05/19 19:06 09/05/19 19:06 09/05/19 19:06 ED Treatment Course - LABORATORY CBC & Chemistry Diagram: 09/05/19 19:50 09/05/19 19:50 - ADDITIONAL ORDERS Additional order review: Laboratory Results 09/05/19 19:50 Sodium 139 Potassium 3.7 Chloride 106 Carbon Dioxide 27 Anion Gap 7 L BUN 13.2 Creatinine 1.0 Est GFR (CKD-EPI)AfAm 76.61 Est GFR (CKD-EPI)NonAf 66.10 Random Glucose 77 Calcium 9.1 Total Bilirubin 0.3 AST 21 ALT 21 Alkaline Phosphatase 98 Total Protein 8.0 Albumin 3.7 09/05/19 19:50 RBC 4.58 MCV 84.9 MCHC 32.2 RDW 15.8 H MPV 8.2 Neutrophils % 56.4 Lymphocytes % 37.1 Monocytes % 5.6 Eosinophils % 0.4 Basophils % 0.5 - Medications Given in the ED: ED Medications Discontinued Medications Generic Name Dose Route Start Last Admin Trade Name Freq PRN Reason Stop Dose Admin Acetaminophen 1,000 mg 09/05/19 19:38 09/05/19 19:56 Tylenol - PO 09/05/19 19:39 1,000 mg ONCE ONE Administration Ketorolac Tromethamine 30 mg 09/05/19 19:30 09/05/19 19:40 Toradol Injection - IM 09/05/19 19:31 Not Given ONCE ONE Sodium Chloride 1,000 ml 09/05/19 19:38 09/05/19 19:56 Normal Saline - IV 09/05/19 19:39 1,000 ml ONCE ONE Administration Medical Decision Making - Medical Decision Making 09/05/19 21:25 Case reviewed, agree with assessment and plan Discharge - Discharge Information Problems reviewed: Yes Clinical Impression/Diagnosis: Dehydration Condition: Stable Disposition: HOME - Follow up/Referral Referrals: Chantel Soto MD [Primary Care Provider] - - Patient Discharge Instructions Patient Printed Discharge Instructions: DI for Dehydration -- Adult Additional Instructions: Please follow up with your PCP without fail - Post Discharge Activity
== END 2019-09-05 21:08 | disposition home or self-care (01) ==
LOC: JER 18:57
DX: E86.0 Dehydration (principal)
CPT/HCPCS: 36415; 80053; 85025; 99284-25

== ENCOUNTER 2019-09-29 10:25 | Emergency (ER) | payer OTHER ==
[2019-09-29 10:34] VITALS: BMI 36.0
[2019-09-29] MEDS ORDERED: FAMOTIDINE 20 MG/50 ML IVPB 20 MG/50 ML MG IVPB ONE (11:15)
[2019-09-29] MEDS ORDERED: SODIUM CHLORIDE 0.9% 500 ML INFUS.BAG IV ONE (11:15)
[2019-09-29] MEDS ORDERED: MAG HYDROX/AL HYDROX/SIMETH -MYLANTA- ORAL SUSPENSION PO ONE (11:16)
--- NOTE | 2019-09-29 11:34 | PDOC ---
History of Present Illness - General History Source: Patient Exam Limitations: No Limitations - History of Present Illness Initial Comments: 09/29/19 11:30 49-year-old female history of migraine headaches, gastritis presents complaining of midsternal chest burning sensation x3 days. States for the past month she has intermittently drank wine and smoked cigarettes which she stopped 3 days ago. Yesterday drank whole milk "all day" and had 3-4 episodes of nonbloody loose stools. denies nausea, shortness of breath, back pain, abdominal pain, fever, chills, sick contacts, recent travel or urinary complaints. Patient took omeprazole 40 mg p.o. yesterday which slightly relieved symptoms. ROS: as above PE: GENERAL: well-appearing, NAD, obese HEAD: NCAT EYES: Pupils equal, round and reactive to light, sclera anicteric, conjunctiva clear ENT: pharynx: no erythema, no exudate, uvula midline NECK: supple CHEST: nontender RESP: clear, no w/r/r CARDIO: rrr, no m/g/r ABD: +BS, soft, nontender, non distended BACK: no midline spinal ttp, no CVAT EXTREMITIES: Normal range of motion, no edema NEUROLOGICAL: Normal speech, normal gait SKIN: Warm, Dry Is this a multiple visit Asthma Patient?: No <Sofiya Cardoso - Last Filed: 09/29/19 14:36> <Zane Manning - Last Filed: 09/29/19 15:41> - General Chief Complaint: Pain Stated Complaint: PAIN Time Seen by Provider: 09/29/19 11:00 Past History - Medical History Cardiac Disorders: Yes (pericarditis) COPD: No DVT: No Diabetes: No GI Disorders: Yes (GERD) HTN: No Hypercholesterolemia: Yes - Immunization History Immunization Up to Date: Yes - Psycho-Social/Smoking History Smoking Status: No Smoking History: Current some day smoker Have you smoked in the past 12 months: No Number of Cigarettes Smoked Daily: 0 If you are a former smoker, when did you quit?: 15 years ago Information on smoking cessation initiated: No - Substance Abuse Hx (Audit-C & DAST Scrn) How often the patient has a drink containing alcohol: Never Score: In Men: 4 or > Positive; In Women: 3 or > Positive: 0 Screen Result (Pos requires Nsg. Audit-10AR): Negative <Sofiya Cardoso - Last Filed: 09/29/19 14:36> <Zane Manning - Last Filed: 09/29/19 15:41> - Medical History Allergies/Adverse Reactions: Allergies Allergy/AdvReac Type Severity Reaction Status Date / Time No Known Allergies Allergy Verified 09/29/19 10:34 Home Medications: Ambulatory Orders Atorvastatin 40 mg PO DAILY 03/24/18 Cyclobenzaprine HCl [Flexeril 10 mg] 10 mg PO PRN PRN 10/24/18 Pantoprazole Sodium 40 mg PO DAILY 04/16/19 Cyclobenzaprine HCl [Flexeril 10 mg] 10 mg PO HS #9 tablet 05/05/19 Ibuprofen [Motrin -] 800 mg PO Q6H #30 tablet 05/05/19 Prochlorperazine Maleate [Compazine] 10 mg PO DAILY 09/05/19 *Physical Exam - Vital Signs Last Vital Signs Temp Pulse Resp BP Pulse Ox 98 F 72 18 129/79 100 09/29/19 10:31 09/29/19 10:31 09/29/19 10:31 09/29/19 10:31 09/29/19 10:31 <Sofiya Cardoso - Last Filed: 09/29/19 14:36> - Vital Signs Last Vital Signs Temp Pulse Resp BP Pulse Ox 98.1 F 71 20 125/84 98 09/29/19 14:50 09/29/19 14:50 09/29/19 14:50 09/29/19 14:50 09/29/19 14:50 <Zane Manning - Last Filed: 09/29/19 15:41> ED Treatment Course - LABORATORY CBC & Chemistry Diagram: 09/29/19 13:10 09/29/19 13:10 - RADIOLOGY Radiology Studies Ordered: Category Date Time Status CHEST PA & LAT [RAD] Stat Radiology 09/29/19 11:15 Taken <Sofiya Cardoso - Last Filed: 09/29/19 14:36> - LABORATORY CBC & Chemistry Diagram: 09/29/19 13:10 09/29/19 13:10 - ADDITIONAL ORDERS Additional order review: Laboratory Results 09/29/19 13:10 Sodium 137 Potassium 4.4 Chloride 105 Carbon Dioxide 27 Anion Gap 4 L BUN 10.6 Creatinine 0.9 Est GFR (CKD-EPI)AfAm 86.41 Est GFR (CKD-EPI)NonAf 74.55 Random Glucose 91 Calcium 9.6 Total Bilirubin 0.4 AST 14 L ALT 17 Alkaline Phosphatase 97 Total Protein 7.9 Albumin 3.6 09/29/19 13:10 RBC 4.60 MCV 86.0 MCHC 32.0 RDW 15.8 H MPV 8.3 Neutrophils % 67.4 Lymphocytes % 25.9 D Monocytes % 5.4 Eosinophils % 0.4 Basophils % 0.9 - Medications Given in the ED: ED Medications Discontinued Medications Generic Name Dose Route Start Last Admin Trade Name Freq PRN Reason Stop Dose Admin Al Hydroxide/Mg Hydroxide 30 ml 09/29/19 11:16 09/29/19 13:05 Mylanta Suspension - PO 09/29/19 11:17 30 ml ONCE ONE Administration Famotidine/Sodium Chloride 20 mg in 50 mls @ 100 mls/hr 09/29/19 11:15 09/29/19 13:05 Pepcid 20 Mg Premixed Ivpb - IVPB 09/29/19 11:44 100 mls/hr ONCE ONE Administration Sodium Chloride 1,000 ml 09/29/19 11:15 09/29/19 13:05 Normal Saline - IV 09/29/19 11:16 1,000 ml ONCE ONE Administration <Zane Manning - Last Filed: 09/29/19 15:41> Medical Decision Making - Medical Decision Making 09/29/19 11:33 49-year-old female history of migraine headaches, gastritis presents complaining of midsternal chest burning sensation x3 days. States for the past month she has intermittently drank wine and smoked cigarettes which she stopped 3 days ago. Yesterday drank whole milk "all day" and had 3-4 episodes of nonbloody loose stools. denies nausea, shortness of breath, back pain, abdominal pain, fever, chills, sick contacts, recent travel or urinary complaints. Patient took omeprazole 40 mg p.o. yesterday which slightly relieved symptoms. Chest x-ray, EKG CBC, CMP IV fluids, IV Pepcid and p.o. Maalox Reassess 09/29/19 14:36 ecg: HR 64, nsr, no st or tw changes cxr: Unremarkable on my wet read Labs reviewed Patient feels better after GI cocktail Stable for discharge <Sofiya Cardoso - Last Filed: 09/29/19 14:36> - Medical Decision Making 09/29/19 15:41 I reviewed the case of the mid-level practitioner and was available for consultation while in the emergency department <Zane Manning - Last Filed: 09/29/19 15:41> Discharge - Discharge Information Problems reviewed: Yes - Admission No <Sofiya Cardoso - Last Filed: 09/29/19 14:36> <Zane Manning - Last Filed: 09/29/19 15:41> - Discharge Information Clinical Impression/Diagnosis: GERD (gastroesophageal reflux disease) Qualifiers: Esophagitis presence: without esophagitis Qualified Code(s): K21.9 - Gastro- esophageal reflux disease without esophagitis Condition: Stable Disposition: HOME - Follow up/Referral Referrals: Chantel Soto MD [Primary Care Provider] - - Patient Discharge Instructions Additional Instructions: Take omeprazole 20 mg daily Do not smoke or drink alcohol Avoid citrus, greasy foods and chocolate which may exacerbate your symptoms Follow-up with your primary care doctor this week If you develop worsening symptoms return to ED - Post Discharge Activity
[2019-09-29 13:35] LABS: BASO % 0.9 % (0-2.0); EOS % 0.4 % (0-4.5); HEMATOCRIT 39.6 % (32.4-45.2); HEMOGLOBIN 12.7 GM/dL (10.7-15.3); LYMPH % 25.9 % (8-40); MCH 27.6 pg (25.7-33.7); MEAN PLT VOLUME 8.3 fl (7.5-11.1); MONO % 5.4 % (3.8-10.2); NEUT % 67.4 % (42.8-82.8); PLATELET COUNT 342 K/MM3 (134-434); RDW 15.8 % (11.6-15.6); WHITE BLOOD COUNT 7.4 K/mm3 (4.0-10.0)
[2019-09-29 14:02] LABS: ALBUMIN 3.6 g/dl (3.4-5.0); BILIRUBIN,TOTAL 0.4 mg/dL (0.2-1); BLOOD UREA NITROGEN 10.6 mg/dL (7-18); CALCIUM 9.6 mg/dL (8.5-10.1); CREATININE 0.9 mg/dL (0.55-1.3); POTASSIUM 4.4 mmol/L (3.5-5.1); TOT PROT 7.9 g/dl (6.4-8.2)
[2019-09-29 14:53] VITALS: BP 125/84; PULSE 71; TEMP 98.1
--- NOTE | 2019-09-30 09:58 | EKG ---
Test Reason : Blood Pressure : / mmHG Vent. Rate : 064 BPM Atrial Rate : 064 BPM P-R Int : 150 ms QRS Dur : 086 ms QT Int : 408 ms P-R-T Axes : 009 068 057 degrees QTc Int : 420 ms NORMAL SINUS RHYTHM NORMAL ECG WHEN COMPARED WITH ECG OF 21-AUG-2019 12:24, NO SIGNIFICANT CHANGE WAS FOUND Confirmed by Jesús George ([id number]) on 09/30/2019 9:58:29 AM Referred By: Confirmed By:Jesús George
== END 2019-09-29 14:54 | disposition home or self-care (01) ==
LOC: JER 10:25
PROC: 3E033GC Introduction of Other Therapeutic Substance into Peripheral Vein, Percutaneous Approach (ICD-10-PCS; principal; 2019-09-29)
DX: K21.9 Gastro-esophageal reflux disease without esophagitis (principal)
CPT/HCPCS: 36415; 71046-TC-FY; 80053; 85025; 93005; 93010; 99285-25

== ENCOUNTER 2019-10-14 18:48 | Emergency (ER) | payer OTHER ==
--- NOTE | 2019-10-14 19:06 | PDOC ---
Rapid Medical Evaluation Medical Evaluation: Allergies Allergy/AdvReac Type Severity Reaction Status Date / Time No Known Allergies Allergy Verified 10/11/19 19:13 10/14/19 19:03 I have performed a brief in-person evaluation of this patient. The patient presents with a chief complaint of: Obesity w/ HLD, GERD, migraines, here c/o CP ongoing x weeks, seen in ED 3 days ago w/ neg w/u including 2 trops. Has appt w/ cards tomorrow but returns today for unclear reason Pertinent physical exam findings:well cristhian, NAD, stable I have ordered the following:ekg The patient will proceed to the ED for further evaluation. 10/14/19 19:06 Discharge Disposition - Diagnosis Chest pain Qualifiers: Chest pain type: unspecified Qualified Code(s): R07.9 - Chest pain, unspecified - Referrals - Patient Instructions - Post Discharge Activity
[2019-10-14 19:09] VITALS: BP 118/70; PULSE 71; BMI 36.0
--- NOTE | 2019-10-15 09:08 | EKG ---
Test Reason : Blood Pressure : / mmHG Vent. Rate : 075 BPM Atrial Rate : 075 BPM P-R Int : 176 ms QRS Dur : 086 ms QT Int : 386 ms P-R-T Axes : 062 068 064 degrees QTc Int : 431 ms SINUS RHYTHM WITH PREMATURE ATRIAL COMPLEXES POSSIBLE LEFT ATRIAL ENLARGEMENT BORDERLINE ECG WHEN COMPARED WITH ECG OF 11-OCT-2019 19:08, PREMATURE ATRIAL COMPLEXES ARE NOW PRESENT Confirmed by Mo Triana MD ([id number]) on 10/15/2019 9:08:13 AM Referred By: Confirmed By:Mo Triana MD
== END 2019-10-14 20:56 | disposition left against medical advice (07) ==
LOC: JER 18:48
DX: R07.9 Chest pain, unspecified (principal)
CPT/HCPCS: 93005; 93010; 99283-25

== ENCOUNTER 2019-10-14 23:59 | Emergency (ER) | payer OTHER ==
[2019-10-15 00:09] VITALS: BP 145/76; PULSE 86; TEMP 98.7; BMI 36.0
--- NOTE | 2019-10-15 00:38 | PDOC ---
*Physical Exam - Vital Signs Last Vital Signs Temp Pulse Resp BP Pulse Ox 98.7 F 86 18 145/76 100 10/15/19 00:03 10/15/19 00:03 10/15/19 00:03 10/15/19 00:03 10/15/19 00:03 ED Treatment Course - LABORATORY CBC & Chemistry Diagram: 10/15/19 02:30 10/15/19 02:30 Medical Decision Making - Medical Decision Making 10/15/19 00:38 Patient seen by the advanced practice provider under my supervision. Ancillary testing reviewed as necessary. I agree with plan as outlined by the advanced practice provider. Discharge - Discharge Information Problems reviewed: Yes Clinical Impression/Diagnosis: Midsternal chest pain, Atypical chest pain, Pleuritic chest pain Disposition: HOME - Follow up/Referral Referrals: Chantel Soto MD [Primary Care Provider] - Call tomorrow - Patient Discharge Instructions Patient Printed Discharge Instructions: DI for Atypical Chest Pain Additional Instructions: Please follow-up with your travel pt as soon as possible. Return to the emergency room for any worsening symptoms. You may take Tylenol or ibuprofen for pain continue Protonix as prescribed by your pot pusher - Post Discharge Activity Work/Back to School Note: Back to Work
--- NOTE | 2019-10-15 00:53 | PDOC ---
History of Present Illness - General Chief Complaint: Chest Pain Stated Complaint: CHEST PAIN Time Seen by Provider: 10/15/19 00:21 History Source: Patient - History of Present Illness Initial Comments: 10/15/19 04:13 49-year-old female with history of migraines reports that about a month ago she started smoking cigarettes for 1 week. Patient reports that she was a previous smoker. After 1 week of smoking patient noticed that she is starting to have chest discomfort which she thought was related to acid reflux. Patient reports the chest discomfort chest pain is worsening over time.Patient did have a visit 3 days ago with similar complaint. Labs and chest x-ray within normal limits. Patient reports that she has followed up with GI who prescribed her pantoprazole however continues to have similar symptoms. Denies diaphoresis, nausea, vomiting, abdominal pain patient also reports b/l lower extremity edema x 3 weeks. Beta Margaret Contraindications (Core Measure): Yes: Not Prescribed Past History - Medical History Allergies/Adverse Reactions: Allergies Allergy/AdvReac Type Severity Reaction Status Date / Time No Known Allergies Allergy Verified 10/11/19 19:13 Home Medications: Ambulatory Orders Cephalexin Monohydrate [Keflex -] 500 mg PO BID #20 capsule 10/15/19 Cardiac Disorders: Yes (pericarditis) COPD: No DVT: No Diabetes: No GI Disorders: Yes (GERD) HTN: No Hypercholesterolemia: Yes - Reproductive History Is Patient Now?: No - Immunization History Immunization Up to Date: Yes - Psycho-Social/Smoking History Smoking Status: No Smoking History: Never smoked Have you smoked in the past 12 months: No Number of Cigarettes Smoked Daily: 0 If you are a former smoker, when did you quit?: 15 years ago - Substance Abuse Hx (Audit-C & DAST Scrn) How often the patient has a drink containing alcohol: Monthly or less Score: In Men: 4 or > Positive; In Women: 3 or > Positive: 1 Screen Result (Pos requires Nsg. Audit-10AR): Negative In the last yr the pt used illegal drug/Rx for NonMed reason: No Score: Yes response is considered Positive: 0 Screen Result (Positive result requires Nsg. DAST-10): Negative Cardiac Specific PMH - Complaint Specific PMHX Angina: No Pulmonary Embolus: No Review of Systems - Review of Systems Able to Perform ROS?: Yes Is the patient limited Ivorian proficient: No Constitutional: No: Symptoms Reported, See HPI, Chills, Diaphoresis, Fever, Loss of Appetite, Malaise, Night Sweats, Weakness, Weight Stable, Unintentional Wgt. Loss, Unexplained wgt Loss, Other Respiratory: Yes: Other (pleuritic pain) Cardiac (ROS): Yes: Chest Pain. No: Symptoms Reported, See HPI, Edema, Irregular Heart Rate, Lightheadedness, Palpitations, Syncope, Chest Tightness, Other *Physical Exam - Vital Signs Last Vital Signs Temp Pulse Resp BP Pulse Ox 98.7 F 86 18 145/76 100 10/15/19 00:03 10/15/19 00:03 10/15/19 00:03 10/15/19 00:03 10/15/19 00:03 - Physical Exam General Appearance: Yes: Appropriately Dressed Respiratory/Chest: positive: Lungs Clear, Normal Breath Sounds Extremity: positive: Normal Capillary Refill, Normal Inspection, Normal Range of Motion, Pedal Edema (b/l) Integumentary: positive: Normal Color, Dry, Warm Neurologic: positive: Fully Oriented, Alert ED Treatment Course - LABORATORY CBC & Chemistry Diagram: 10/15/19 02:30 10/15/19 02:30 - ADDITIONAL ORDERS Additional order review: Laboratory Results 10/15/19 10/15/19 10/15/19 04:15 02:30 02:30 PT with INR INR PTT (Actin FS) D-Dimer 919 H Sodium 140 Potassium 3.9 Chloride 106 Carbon Dioxide 25 Anion Gap 9 BUN 8.0 Creatinine 0.8 Est GFR (CKD-EPI)AfAm 99.63 Est GFR (CKD-EPI)NonAf 85.96 Random Glucose 83 Calcium 9.2 Magnesium 2.0 Total Bilirubin 0.2 AST 18 ALT 16 Alkaline Phosphatase 91 Creatine Kinase 145 Troponin I < 0.02 C-Reactive Protein < 0.3 B-Natriuretic Peptide 84.1 Total Protein 7.5 Albumin 3.6 Urine Color Yellow Urine Appearance Clear Urine pH 7.0 D Ur Specific [place] 1.020 Urine Protein Negative Urine Glucose (UA) Negative Urine Ketones Negative Urine Blood Trace-intact Urine Nitrite Negative Urine Bilirubin Negative Urine Urobilinogen 0.2 Ur Leukocyte Esterase 3+ H Urine WBC (Auto) 300.7 Urine RBC (Auto) 19.2 Urine Casts (Auto) 1.15 U Epithel Cells (Auto) 28.7 Urine Bacteria (Auto) 1935.8 10/15/19 02:30 PT with INR 12.60 INR 1.07 PTT (Actin FS) 27.3 D-Dimer Sodium Potassium Chloride Carbon Dioxide Anion Gap BUN Creatinine Est GFR (CKD-EPI)AfAm Est GFR (CKD-EPI)NonAf Random Glucose Calcium Magnesium Total Bilirubin AST ALT Alkaline Phosphatase Creatine Kinase Troponin I C-Reactive Protein B-Natriuretic Peptide Total Protein Albumin Urine Color Urine Appearance Urine pH Ur Specific [place] Urine Protein Urine Glucose (UA) Urine Ketones Urine Blood Urine Nitrite Urine Bilirubin Urine Urobilinogen Ur Leukocyte Esterase Urine WBC (Auto) Urine RBC (Auto) Urine Casts (Auto) U Epithel Cells (Auto) Urine Bacteria (Auto) 10/15/19 02:30 RBC 4.28 MCV 86.0 MCHC 32.4 RDW 15.7 H MPV 9.3 Neutrophils % 60.2 Lymphocytes % 31.6 Monocytes % 6.7 Eosinophils % 0.8 Basophils % 0.7 - RADIOLOGY Radiology Studies Ordered: Category Date Time Status CHEST CTA [CT] Stat CT Scan 10/15/19 04:06 Taken CHEST PA & LAT [RAD] Stat Radiology 10/15/19 01:03 Taken Medical Decision Making - Medical Decision Making A: chest pain P: EKG CBC CMP Cardiac labs D-Dimer elevated 10/15/19 05:37 CTA: chest: There is no PE or dissection. Heart size is normal. The trachea and bronchi are patent. There is no pleural or pericardial effusion. The lungs are clear. No fractures identified. The upper abdominal structures are normal. 10/15/19 05:38 10/15/19 06:03 UA: + 3 leuks, large bacteria, WBC: patient urinary symptoms. will empircally cover with cephalexin. patient is aware. patientw ill repeat UA with Dr. solano. Discharge - Discharge Information Problems reviewed: Yes Clinical Impression/Diagnosis: Midsternal chest pain, Atypical chest pain, Pleuritic chest pain UTI (urinary tract infection) Qualifiers: Urinary tract infection type: acute cystitis Hematuria presence: without hematuria Qualified Code(s): N30.00 - Acute cystitis without hematuria Disposition: HOME - Additional Discharge Information Prescriptions: Cephalexin Monohydrate [Keflex -] 500 mg PO BID #20 capsule - Follow up/Referral Referrals: Chantel Solano MD [Primary Care Provider] - Call tomorrow - Patient Discharge Instructions Patient Printed Discharge Instructions: DI for Atypical Chest Pain Additional Instructions: Please follow-up with your bus attendant as soon as possible. Return to the emergency room for any worsening symptoms. You may take Tylenol or ibuprofen for pain continue Protonix as prescribed by your pasteurizer helper - Post Discharge Activity Work/Back to School Note: Back to Work
[2019-10-15 03:08] LABS: BASO % 0.7 % (0-2.0); EOS % 0.8 % (0-4.5); HEMATOCRIT 36.8 % (32.4-45.2); HEMOGLOBIN 11.9 GM/dL (10.7-15.3); LYMPH % 31.6 % (8-40); MCH 27.9 pg (25.7-33.7); MCHC 32.4 g/dl (32.0-36.0); MEAN PLT VOLUME 9.3 fl (7.5-11.1); MONO % 6.7 % (3.8-10.2); NEUT % 60.2 % (42.8-82.8); PLATELET COUNT 341 K/MM3 (134-434); RBC 4.28 M/mm3 (3.60-5.2); RDW 15.7 % (11.6-15.6); WHITE BLOOD COUNT 9.3 K/mm3 (4.0-10.0)
[2019-10-15 03:30] LABS: INR 1.07 (0.83-1.09); PROTHROMBIN TIME (PATIENT) 12.6 SEC (9.7-13.0)
[2019-10-15 03:32] LABS: ACTIVATED PTT 27.3 SECONDS (25.2-36.5)
[2019-10-15 03:42] LABS: ALBUMIN 3.6 g/dl (3.4-5.0); ALK PHOS 91 U/L (45-117); ANION GAP 9 MMOL/L (8-16); BILIRUBIN,TOTAL 0.2 mg/dL (0.2-1); CALCIUM 9.2 mg/dL (8.5-10.1); CHLORIDE 106 mmol/L (98-107); CO2 25 mmol/L (21-32); CREATININE 0.8 mg/dL (0.55-1.3); GLUCOSE,RANDOM 83 mg/dL (74-106); N-TERMINAL BNP 84.1 pg/ml (5-125); POTASSIUM 3.9 mmol/L (3.5-5.1); SGOT/AST 18 U/L (15-37); SGPT/ALT 16 U/L (13-61); SODIUM 140 mmol/L (136-145); TOT PROT 7.5 g/dl (6.4-8.2)
[2019-10-15 05:20] LABS: URINE APPEARANCE Clear; URINE BILIRUBIN Negative (NEGATIVE); URINE COLOR Yellow; URINE GLUCOSE (UA) Negative (NEGATIVE); URINE KETONE Negative (NEGATIVE); URINE LEUK ESTERASE 3+ (NEGATIVE); URINE NITRITE Negative (NEGATIVE); URINE PROTEIN Negative (NEGATIVE); URINE UROBILINOGEN 0.2 mg/dL (0.2-1.0)
[2019-10-15 05:31] LABS: EPI CELLS 28.7 /uL (0-25.1); HYALINE CASTS 1.15 /uL (0-3.1); URINE BACTERIA 1935.8 /uL (0-1359); URINE RBC 19.2 /uL (0-23.9); URINE WBC 300.7 /uL (0-25.8)
--- NOTE | 2019-10-15 09:08 | EKG ---
Test Reason : Blood Pressure : / mmHG Vent. Rate : 072 BPM Atrial Rate : 072 BPM P-R Int : 178 ms QRS Dur : 088 ms QT Int : 390 ms P-R-T Axes : 062 062 057 degrees QTc Int : 427 ms SINUS RHYTHM WITH PREMATURE ATRIAL COMPLEXES WITH ABERRANT CONDUCTION OTHERWISE NORMAL ECG WHEN COMPARED WITH ECG OF 14-OCT-2019 18:57, NO SIGNIFICANT CHANGE WAS FOUND Confirmed by Mo Triana MD ([id number]) on 10/15/2019 9:07:59 AM Referred By: Confirmed By:Mo Triana MD
== END 2019-10-15 06:04 | disposition home or self-care (01) ==
LOC: JER 23:59
DX: R07.81 Pleurodynia (principal); N30.00 Acute cystitis without hematuria
CPT/HCPCS: 36415; 71046-TC-FY; 71275-TC; 80053; 81003; 82550; 83735; 83880; 84484; 85025; 85379; 85610; 85651; 85730; 86140; 93005; 93010; 99285-25

== ENCOUNTER 2019-10-29 20:54 | Emergency (ER) | payer OTHER ==
[2019-10-29] MEDS ORDERED: KETOROLAC TROMETHAMINE 60 MG/2 ML VIAL IM ONE (20:57)
--- NOTE | 2019-10-29 21:00 | PDOC ---
Rapid Medical Evaluation Time Seen by Provider: 10/29/19 20:56 Medical Evaluation: Allergies Allergy/AdvReac Type Severity Reaction Status Date / Time No Known Allergies Allergy Verified 10/11/19 19:13 10/29/19 20:58 CC: frontal throbbing to forehead since was at the [facility] and now worsening. Pt states similar presentation. Exam: bp slightly elevated, otherwise normal PE Plan: benadryl and toradol . labs reviewed from 10/14 and WNL Discharge Disposition - Diagnosis Migraine - Referrals - Patient Instructions - Post Discharge Activity
[2019-10-29 21:02] VITALS: BP 163/95; PULSE 87; TEMP 98.2; BMI 36.0
--- NOTE | 2019-10-29 21:24 | PDOC ---
History of Present Illness - General Chief Complaint: Headache Stated Complaint: HEADACHE Time Seen by Provider: 10/29/19 20:56 History Source: Patient - History of Present Illness Initial Comments: 10/29/19 21:44 49-year-old female complaining of headache and noted that her blood pressure has been elevated than normal for the last several visits with PCP. Patient is currently not on any had any antihypertensives. Denies dizziness, chest pain, nausea, vomiting, abdominal pain. Patient has a past medical history of migraines currently on Botox injections 10/29/19 21:49 Past History - Medical History Allergies/Adverse Reactions: Allergies Allergy/AdvReac Type Severity Reaction Status Date / Time No Known Allergies Allergy Verified 10/11/19 19:13 Home Medications: Ambulatory Orders Cephalexin Monohydrate [Keflex -] 500 mg PO BID #20 capsule 10/15/19 Cardiac Disorders: Yes (pericarditis) COPD: No DVT: No Diabetes: No GI Disorders: Yes (GERD) HTN: No Hypercholesterolemia: Yes - Reproductive History Is Patient Now?: No - Immunization History Immunization Up to Date: Yes - Psycho-Social/Smoking History Smoking Status: No Smoking History: Never smoked Have you smoked in the past 12 months: No Number of Cigarettes Smoked Daily: 0 If you are a former smoker, when did you quit?: 15 years ago - Substance Abuse Hx (Audit-C & DAST Scrn) How often the patient has a drink containing alcohol: Never Score: In Men: 4 or > Positive; In Women: 3 or > Positive: 0 Screen Result (Pos requires Nsg. Audit-10AR): Negative Neuro Specific PMHX - Complaint Specific PMHX Glaucoma: No Herniated Disk: No Laminectomy: No Migraine: Yes Review of Systems - Review of Systems Able to Perform ROS?: Yes Is the patient limited Cameroonian proficient: No Constitutional: No: Symptoms Reported, See HPI, Chills, Diaphoresis, Fever, Loss of Appetite, Malaise, Night Sweats, Weakness, Weight Stable, Unintentional Wgt. Loss, Unexplained wgt Loss, Other Cardiac (ROS): No: Symptoms Reported, See HPI, Chest Pain, Edema, Irregular Heart Rate, Lightheadedness, Palpitations, Syncope, Chest Tightness, Other Neurological: Yes: Headache. No: Symptoms reported, See HPI, Numbness, Paresthesia, Pre-Existing Deficit, Seizure, Tingling, Tremors, Weakness, Unsteady Gait, Ataxia, Dizziness, Other *Physical Exam - Vital Signs Last Vital Signs Temp Pulse Resp BP Pulse Ox 98.2 F 87 20 163/95 100 10/29/19 20:58 10/29/19 20:58 10/29/19 20:58 10/29/19 20:58 10/29/19 20:58 - Physical Exam General Appearance: Yes: Appropriately Dressed Respiratory/Chest: positive: Lungs Clear, Normal Breath Sounds Cardiovascular: positive: Regular Rhythm, Regular Rate Musculoskeletal: positive: Normal Inspection Extremity: positive: Normal Capillary Refill, Normal Inspection, Normal Range of Motion Integumentary: positive: Normal Color, Dry, Warm Neurologic: positive: drum tester II-XII NML intact, Fully Oriented, Alert, Normal Mood/Affect, Normal Response, Motor Strength 07/01 ED Progress Note - Progress Note Progress Note: 10/29/19 23:29 A: headache; hypertension P: tylenol norvasc reevaluate Medical Decision Making - Medical Decision Making 10/29/19 22:50 B/p is 125/86. reports no headache at this time. patient will follow up with Dr. solano. Discharge - Discharge Information Problems reviewed: Yes Clinical Impression/Diagnosis: Migraine Qualifiers: Migraine type: other Status migrainosus presence: without status migrainosus Intractability: not intractable Qualified Code(s): G43.809 - Other migraine, not intractable, without status migrainosus Hypertension Qualifiers: Hypertension type: unspecified Qualified Code(s): I10 - Essential (primary) hypertension Disposition: HOME - Follow up/Referral Referrals: Chantel Solano MD [Primary Care Provider] - Call tomorrow - Patient Discharge Instructions Patient Printed Discharge Instructions: Essential Hypertension Additional Instructions: Please follow-up with Dr. Solano tomorrow. Return to the emergency room for any worsening symptoms - Post Discharge Activity
--- NOTE | 2019-10-29 21:31 | PDOC ---
*Physical Exam - Vital Signs Last Vital Signs Temp Pulse Resp BP Pulse Ox 98.2 F 87 20 163/95 100 10/29/19 20:58 10/29/19 20:58 10/29/19 20:58 10/29/19 20:58 10/29/19 20:58 Medical Decision Making - Medical Decision Making 10/29/19 21:31 Patient seen by the advanced practice provider under my supervision. Ancillary testing reviewed as necessary. I agree with plan as outlined by the advanced practice provider. Discharge - Discharge Information Problems reviewed: Yes Clinical Impression/Diagnosis: Migraine Qualifiers: Migraine type: other Status migrainosus presence: without status migrainosus Intractability: not intractable Qualified Code(s): G43.809 - Other migraine, not intractable, without status migrainosus Hypertension Qualifiers: Hypertension type: unspecified Qualified Code(s): I10 - Essential (primary) hypertension Disposition: HOME - Follow up/Referral Referrals: Chantel Soto MD [Primary Care Provider] - Call tomorrow - Patient Discharge Instructions Patient Printed Discharge Instructions: Essential Hypertension Additional Instructions: Please follow-up with Dr. Soto tomorrow. Return to the emergency room for any worsening symptoms - Post Discharge Activity
[2019-10-29] MEDS ORDERED: KETOROLAC TROMETHAMINE 60 MG/2 ML VIAL ONE (21:38)
[2019-10-29] MEDS ORDERED: amLODIPine BESYLATE 5 MG TABLET (FP) ONE (21:41)
[2019-10-29] MEDS ORDERED: amLODIPine BESYLATE 10 MG TABLET (FP) PO ONE (21:41)
[2019-10-29] MEDS ORDERED: ACETAMINOPHEN 325 MG TABLET (FP) ONE (21:41)
[2019-10-29] MEDS ORDERED: ACETAMINOPHEN 500 MG TABLET (FP) PO ONE (21:41)
== END 2019-10-29 23:27 | disposition home or self-care (01) ==
LOC: JER 20:54
PROC: 3E0233Z Introduction of Anti-inflammatory into Muscle, Percutaneous Approach (ICD-10-PCS; principal; 2019-10-29)
PROC: 3E023GC Introduction of Other Therapeutic Substance into Muscle, Percutaneous Approach (ICD-10-PCS; 2019-10-29)
DX: G43.809 Other migraine, not intractable, without status migrainosus (principal); I10 Essential (primary) hypertension
CPT/HCPCS: 99284-25

== ENCOUNTER 2019-11-13 14:37 | Observation (INO) | payer OTHER ==
--- NOTE | 2019-11-13 14:57 | PDOC ---
History of Present Illness - General Chief Complaint: Chest Pain Stated Complaint: SENT BY PCP/CHEST PAIN Time Seen by Provider: 11/13/19 14:55 History Source: Patient, Old Records, Primary Care Provider Exam Limitations: No Limitations - History of Present Illness Initial Comments: 11/13/19 14:57 Sybil Choudhury is a 49F with PMH pericarditis, GERD, HLD, migraine, sent by PMD for evaluation of left-sided chest pain and lightheadedness. Evaluated last month for similar episode, HEART score 2, negative 2-trop, d/c home. Today was seeing Dr. Soto for follow-up for a chest pain she has been having intermittently all month. Always same chest pain, left chest with radiation up left neck. No trauma. Has had a normal stress test and echocardiogram in July, already had outpatient cardiac monitoring results pending. Cards [place]. On amlodipine for HTN. Denies palpitations or SOB. Seen by GI for GERD eval, on pantoprazole, not having reflux sx at this time. Denies abdominal pain or diarrhea, has nausea without vomiting PO intake fine. No urinary sx. Today in office had her typical chest pain, but also a sensation of "wooziness" Not room-spinning, sensation of lightheadeness Has PMH migraines, has Rx for compazine PRN, did not take today. Currently OSCAR is different from migraines. Denies vision changes, hearing changes, numbness/tingling. NDKA Past History - Medical History Allergies/Adverse Reactions: Allergies Allergy/AdvReac Type Severity Reaction Status Date / Time No Known Allergies Allergy Verified 10/11/19 19:13 Home Medications: Ambulatory Orders Albuterol 2.5/Ipratropium 0.5 [Duoneb -] PRN 11/13/19 Cardiac Disorders: Yes (pericarditis) COPD: No DVT: No Diabetes: No GI Disorders: Yes (GERD) HTN: No Hypercholesterolemia: Yes - Reproductive History Is Patient Now?: No - Immunization History Immunization Up to Date: Yes - Psycho-Social/Smoking History Smoking Status: No Smoking History: Never smoked Have you smoked in the past 12 months: No Number of Cigarettes Smoked Daily: 0 If you are a former smoker, when did you quit?: 15 years ago Information on smoking cessation initiated: No - Substance Abuse Hx (Audit-C & DAST Scrn) How often the patient has a drink containing alcohol: Monthly or less Number of drinks the patient has on a typical day: 1 or 2 How often the patient has six or more drinks on one occasion: Less than monthly Score: In Men: 4 or > Positive; In Women: 3 or > Positive: 2 Screen Result (Pos requires Nsg. Audit-10AR): Negative In the last yr the pt used illegal drug/Rx for NonMed reason: No Score: Yes response is considered Positive: 0 Screen Result (Positive result requires Nsg. DAST-10): Negative Review of Systems - Review of Systems Able to Perform ROS?: Yes Constitutional: No: Symptoms Reported HEENTM: No: Eye Pain, Blurred Vision Respiratory: No: Cough, Shortness of Breath, SOB with Exertion, SOB at Rest Cardiac (ROS): Yes: Chest Pain, Lightheadedness. No: Edema, Irregular Heart Rate, Palpitations ABD/GI: No: Constipated, Diarrhea, Nausea, Poor Appetite, Poor Fluid Intake, Vomiting : No: Symptoms Reported Musculoskeletal: No: Symptoms Reported Integumentary: No: Symptoms Reported Neurological: Yes: Headache Endocrine: No: Symptoms Reported Hematologic/Lymphatic: No: Symptoms Reported All Other Systems: Reviewed and Negative *Physical Exam - Vital Signs Last Vital Signs Temp Pulse Resp BP Pulse Ox 98.0 F 88 18 123/73 100 11/13/19 14:40 11/13/19 14:40 11/13/19 14:40 11/13/19 14:40 11/13/19 14:40 - Physical Exam General Appearance: Yes: Nourished, Appropriately Dressed. No: Apparent Distress HEENT: positive: EOMI, JOSE JUAN, Normal Voice, Symmetrical, Pharynx Normal. negative: Scleral Icterus (R), Scleral Icterus (L), Pharyngeal Erythema, Tonsillar Exudate, Tonsillar Erythema Neck: positive: Trachea midline, Normal Thyroid, Supple. negative: Tender, Rigid, Decreased range of motion, Lymphadenopathy (R), Lymphadenopathy (L), Tender lateral, Tender midline Respiratory/Chest: positive: Lungs Clear, Normal Breath Sounds. negative: Chest Tender, Respiratory Distress, Accessory Muscle Use, Crackles, Rales, Rhonchi, Stridor, Wheezing Cardiovascular: positive: Regular Rhythm, Regular Rate Gastrointestinal/Abdominal: positive: Normal Bowel Sounds, Flat, Soft. negative: Tender, Organomegaly, Guarding, Rebound Musculoskeletal: positive: Normal Inspection. negative: CVA Tenderness, Decreased Range of Motion, Vertebral Tenderness Extremity: positive: Normal Capillary Refill, Normal Inspection, Normal Range of Motion, Pelvis Stable. negative: Tender, Pedal Edema, Swelling, Calf Tenderness Integumentary: positive: Normal Color, Dry, Warm Neurologic: positive: judicial assistant II-XII NML intact, Fully Oriented, Alert, Normal M ood/Affect, Normal Response, Motor Strength 5/5, Finger to Nose (normal), Other (gait normal, finger/nose normal). negative: Sensory Deficit ED Treatment Course - LABORATORY CBC & Chemistry Diagram: 11/13/19 15:11 11/13/19 15:11 Medical Decision Making - Medical Decision Making 11/13/19 15:23 Patient has history of chest pain already evaluated by cards and GI already, sent by Dr. Soto for admission for chest pain as well as lightheadedness. VSS on arrival, will get orthostatics. Physical exam unremarkable for acute neurological deficit or other pathology. Concern for ACS vs. PNA as well as migraine vs. OSCAR. Most likely known pericarditis. Getting CBC/CMP/CP/ECG/CXR/BNP/UA/UC for evaluation. ECG NSR with HR 83, QTc 448, CHONG noted in inferior leads consistent with priors, no new CHONG/D or TWI. Plan for admit to TELE per PMD for further evaluation. 11/13/19 15:34 Negative for orthostatic hypotension. Giving IVF and Reglan for lightheadedness. CXR unremarkable for pathology. 11/13/19 17:02 Labs notable for: - CBC WNL - CMP WNL - CP WNL Will contact [facility] for [facility] admission. 11/13/19 17:54 Discussed with amee Garza for tele/obs admission. Discharge - Discharge Information Problems reviewed: Yes Clinical Impression/Diagnosis: Chest pain Qualifiers: Chest pain type: unspecified Qualified Code(s): R07.9 - Chest pain, unspecified Condition: Fair - Admission Yes - Follow up/Referral Referrals: Chantel Soto MD [Primary Care Provider] - - Patient Discharge Instructions - Post Discharge Activity
[2019-11-13 15:38] LABS: BASO % 0.6 % (0-2.0); EOS % 0.8 % (0-4.5); HEMATOCRIT 36.5 % (32.4-45.2); LYMPH % 35.9 % (8-40); MCH 28.2 pg (25.7-33.7); MCHC 32.9 g/dl (32.0-36.0); MEAN CELL VOLUME 85.6 fl (80-96); MEAN PLT VOLUME 8.3 fl (7.5-11.1); MONO % 7.3 % (3.8-10.2); NEUT % 55.4 % (42.8-82.8); PLATELET COUNT 327 K/MM3 (134-434); RBC 4.26 M/mm3 (3.60-5.2); RDW 15.4 % (11.6-15.6); WHITE BLOOD COUNT 9.2 K/mm3 (4.0-10.0)
--- NOTE | 2019-11-13 16:25 | PDOC ---
Documentation entered by Suma Ortiz SCRIBE, acting as scribe for Devin Negron MD. Devin Negron MD: This documentation has been prepared by the [employer], SCRIBE, under my direction and personally reviewed by me in its entirety. I confirm that the documentation accurately reflects all work, treatment, procedures, and medical decision making performed by me. Attending Attestation - Resident Resident Name: SarahcindaModesto - ED Attending Attestation I have performed the following: I have examined & evaluated the patient, The case was reviewed & discussed with the resident, I agree w/resident's findings & plan, Exceptions are as noted - HPI HPI: 11/13/19 16:08 The patient is a 49y/o F with a pmh of pericarditis, GERD, HLD, HTN, migraine, who presents to the ED sent by PMD, Dr. Soto for left-sided chest pain and lightheadedness. Pt reports she had a normal stress test and echocardiogram 07/2019. Pt denies SOB or palpitations. Allergies:NKDA PCP: Dr. Soto - Physicial Exam PE: 11/13/19 16:22 EXAMINATION CONSTITUTIONAL: Well-appearing; well-nourished; in no apparent distress HEAD: Normocephalic; atraumatic EYES: PERRL; EOM intact ENMT: External appears normal; normal oropharynx NECK: Supple; non-tender; no cervical lymphadenopathy CARD: Normal S1, S2; no murmurs, rubs, or gallops RESP: Normal chest excursion with respiration; breath sounds clear and equal bilaterally; no wheezes, rhonchi, or rales ABD: Soft, non-distended; non-tender; no palpable organomegaly, no palpable hernias EXT: Normal ROM in all four extremities; non-tender to palpation; distal pulses intact SKIN: Warm, dry, no rash NEURO: No focal neurological deficiencies. - Medical Decision Making 11/13/19 16:23 49-year-old female with history of hyperlipidemia, hypertension, migraine headaches, previous history of pericarditis presents with persistent, waxing and waning substernal chest discomfort that intermittently radiates to the left arm, positional and partially pleuritic. Patient had undergone an outpatient echocardiogram and stress testing at Dr. Soto's office and is scheduled for an outpatient cardiac MRI at [facility]. Patient was referred to the ER after developing similar symptoms in the PMDs office prior to arrival. In the ER, patient is awake and alert, nontoxic-appearing, vital signs are noted. EKG reveals no evidence of significant ST-T abnormalities, there is no evidence of LVH or dysrhythmia. Differential diagnosis includes ACS versus pericarditis versus PE versus pleurisy. Will obtain CBC/CMP/cardiac profile. Will obtain chest x-ray to rule out cardiomegaly versus infiltrate versus effusion. Will consult cardiology. Will admit. Discharge - Discharge Information Problems reviewed: Yes Clinical Impression/Diagnosis: Chest pain Qualifiers: Chest pain type: unspecified Qualified Code(s): R07.9 - Chest pain, unspecified Condition: Fair - Follow up/Referral Referrals: Chantel Soto MD [Primary Care Provider] - - Patient Discharge Instructions - Post Discharge Activity
[2019-11-13 16:34] LABS: ALBUMIN 3.6 g/dl (3.4-5.0); ALK PHOS 93 U/L (45-117); ANION GAP 6 MMOL/L (8-16); BILIRUBIN,TOTAL 0.2 mg/dL (0.2-1); BLOOD UREA NITROGEN 11.9 mg/dL (7-18); CALCIUM 9.3 mg/dL (8.5-10.1); CHLORIDE 106 mmol/L (98-107); CO2 27 mmol/L (21-32); GLUCOSE,RANDOM 86 mg/dL (74-106); N-TERMINAL BNP 49.2 pg/ml (5-125); POTASSIUM 4.1 mmol/L (3.5-5.1); SGOT/AST 17 U/L (15-37); SGPT/ALT 18 U/L (13-61); SODIUM 139 mmol/L (136-145); TOT PROT 7.8 g/dl (6.4-8.2)
[2019-11-13] MEDS ORDERED: METOCLOPRAMIDE HCL INJECTION 10 MG/2 ML VIAL IVPB ONE (17:15)
[2019-11-13] MEDS ORDERED: SODIUM CHLORIDE 0.9% 500 ML INFUS.BAG IV ONE (17:16)
[2019-11-13] MEDS ORDERED: METOCLOPRAMIDE HCL INJECTION 10 MG/2 ML VIAL ONE (17:19)
--- NOTE | 2019-11-13 18:29 | HP ---
CHIEF COMPLAINT: chest pain , L arm pain PCP: Charles HISTORY OF PRESENT ILLNESS: 49 yo F H pericarditis ( 2018), GERD, HTN HLD, migraine, sent by PMD for evaluation of left-sided chest pain, L arm pain. Pt states this occured as she was sitting in Dr. Soto's office. She states that the pain was 10/10 throbbing and radiating down L arm. she states that she never had chest pain of this nature- feels different from her pericarditis 2 years ago. she states that she also felt short of breath at the time. At time of exam, pain improved. endorses new LE edema. she denies Dyspnea on exertion, denies orthopnea. denies palpitations. Pt states she just started Amlodipine for her BP a few weeks ago. ER course was notable for: (1)EKG : NSR (2)trop neg x 1 Recent Travel: denies PAST MEDICAL HISTORY: see above PAST SURGICAL HISTORY: Cardiac Cath ([facility], 2017) Social History: Smokin y ago Alcohol:occasional 2 x / week Drugs: denies Allergies No Known Allergies Allergy (Verified 10/11/19 19:13) HOME MEDICATIONS: Home Medications Medication Instructions Recorded Amlodipine Besylate [Norvasc -] 5 mg PO DAILY 11/13/19 Cyclobenzaprine HCl 5 mg PO PRN PRN 11/13/19 REVIEW OF SYSTEMS CONSTITUTIONAL: Present: diaphoresis Absent: fever, chills, generalized weakness, malaise, loss of appetite, weight change HEENT: Absent: rhinorrhea, nasal congestion, throat pain, throat swelling, difficulty swallowing, mouth swelling, ear pain, eye pain, visual changes CARDIOVASCULAR: Present: chest pain, peripheral edema Absent: syncope, palpitations, irregular heart rate, lightheadedness RESPIRATORY: Absent: cough, shortness of breath, dyspnea with exertion, orthopnea, wheezing, stridor, hemoptysis GASTROINTESTINAL: Absent: abdominal pain, abdominal distension, nausea, vomiting, diarrhea, constipation, melena, hematochezia GENITOURINARY: Absent: dysuria, frequency, urgency, hesitancy, hematuria, flank pain, genital pain MUSCULOSKELETAL: Absent: myalgia, arthralgia, joint swelling, back pain, neck pain SKIN: Absent: rash, itching, pallor NEUROLOGIC: Absent: headache, focal weakness or paresthesias, dizziness, unsteady gait, seizure, mental status changes, bladder or bowel incontinence PHYSICAL EXAMINATION Vital Signs - 24 hr 11/13/19 11/13/19 14:40 15:15 Temperature 98.0 F Pulse Rate 88 Pulse Rate [ 88 Right side Standing] Pulse Rate [ 84 Right side Supine] Respiratory 18 Rate Blood Pressure 123/73 Blood Pressure 129/75 [Right side Standing] Blood Pressure 127/76 [Right side Supine] O2 Sat by Pulse 100 Oximetry (%) GENERAL: Awake, alert, and fully oriented, in no acute distress. HEAD: Normal with no signs of trauma. EYES: Pupils equal, round and reactive to light, extraocular movements intact EARS, NOSE, THROAT:oropharynx clear without exudates. Moist mucous membranes. NECK:+ JVD LUNGS: Breath sounds equal, clear to auscultation bilaterally. No wheezes, and no crackles. No accessory muscle use. HEART: Regular rate and rhythm, normal S1 and S2 without murmur ABDOMEN: Soft, nontender, not distended, normoactive bowel sounds, no guarding, no rebound, no masses. hepatomegaly MUSCULOSKELETAL: No CVA tenderness. UPPER EXTREMITIES: 2+ pulses, No peripheral edema. LOWER EXTREMITIES: 2+ pulses, warm, well-perfused. No calf tenderness. trace peripheral edema. NEUROLOGICAL: Cranial nerves II-XII intact. Normal speech. SKIN: Warm, dry, normal turgor, no rashes or lesions noted, normal capillary refill. Laboratory Results - last 24 hr 11/13/19 11/13/19 15:11 15:11 WBC 9.2 RBC 4.26 Hgb 12.0 Hct 36.5 MCV 85.6 MCH 28.2 MCHC 32.9 RDW 15.4 Plt Count 327 MPV 8.3 D Absolute Neuts (auto) 5.1 Neutrophils % 55.4 Lymphocytes % 35.9 Monocytes % 7.3 Eosinophils % 0.8 Basophils % 0.6 Nucleated RBC % 0 Sodium 139 Potassium 4.1 Chloride 106 Carbon Dioxide 27 Anion Gap 6 L BUN 11.9 Creatinine 1.0 Est GFR (CKD-EPI)AfAm 76.07 Est GFR (CKD-EPI)NonAf 65.64 Random Glucose 86 Calcium 9.3 Total Bilirubin 0.2 AST 17 ALT 18 Alkaline Phosphatase 93 Creatine Kinase 138 Troponin I < 0.02 B-Natriuretic Peptide 49.2 Total Protein 7.8 Albumin 3.6 ASSESSMENT/PLAN: 49 yo F PMH pericarditis (2018), GERD, HTN HLD, migraine, sent by PMD for evaluation of left-sided chest pain, L arm pain. Pt is admitted to obs for ACS r/o Chest Pain r/o ACS - 1st trop neg. pending rpt - EKG reviewed, NSR no ST changes. will rpt - cont tele monitoring - will consult cardiology, Dr. Triana - will hold amlodipine ( also complaining of peripheral edema) and will start lopressor 12.5 bid - will start atorvastatin - will get lipid panel, A1C, TSH - will order echo HTN - hold amlodipine - lopressor 12.5 bid sodium controlled diet DVTppx: lovenox tele obs Family Medical History Family History: Unremarkable Visit type - Emergency Visit Emergency Visit: Yes ED Registration Date: 11/13/19 Care time: The patient presented to the Emergency Department on the above date and was hospitalized for further evaluation of their emergent condition. - New Patient This patient is new to me today: Yes Date on this admission: 11/13/19 - Critical Care Critical Care patient: No ATTENDING PHYSICIAN STATEMENT I saw and evaluated the patient. I reviewed the resident's note and discussed the case with the resident. I agree with the resident's findings and plan as documented. SUBJECTIVE: OBJECTIVE: ASSESSMENT AND PLAN:
[2019-11-13] MEDS ORDERED: ACETAMINOPHEN 325 MG TABLET (FP) PO PRN (18:43)
--- OUTSIDE RECORDS SUMMARY | 2019-11-13 18:59 | XMS ---
:1970 Author Organization [facility] Care Team Providers Name Role Phone NOEL FOSTER, NOEL Unavailable Unavailable [facility], [id number] Unavailable Unavailable ED STAFF PHYSICIAN, MICHAEL Unavailable Unavailable JUAN EDMONDS Unavailable Unavailable EFREN SANTOS Unavailable Unavailable ED STAFF PHYSICIAN, STAFF Unavailable Unavailable GEORGE Richardson Unavailable Unavailable ED STAFF PHYSICIANYAKELIN Unavailable Unavailable ED STAFF PHYSICIAN, SHRUTHI Unavailable Unavailable DANYELLE CARDOSO Unavailable Unavailable DONNY STRONG Unavailable Unavailable Wan Angel MD Unavailable Unavailable Celestino Angel MD Unavailable Unavailable Celestino Angel MD Unavailable Unavailable Celestino Angel MD Unavailable Unavailable Celestino Angel MD Unavailable Unavailable Celestino Angel MD Unavailable Unavailable Celestino Angel MD Unavailable Unavailable LAURA KAHN Unavailable Unavailable ED STAFF PHYSICIAN Unavailable Unavailable WINSTON MORALES MD Unavailable Unavailable ED STAFF PHYSICIAN Unavailable Unavailable EMERGENCY SERVICE, X Unavailable Unavailable Charles Unavailable [phone] Charles Unavailable [phone] Charles Unavailable [phone] Charles Unavailable [phone] Charles Unavailable [phone] Charles Unavailable [phone] Charles Unavailable [phone] Charles Unavailable [phone] Charles Unavailable [phone] Charles Unavailable [phone] Charles Unavailable [phone] Hcarles Unavailable [phone] Charles Unavailable [phone] Charles Unavailable [phone] Charles Unavailable [phone] HOMER STEPHENSSON Unavailable Unavailable Re-disclosure Warning The records that you are about to access may contain information from federally- assisted alcohol or drug abuse programs. If such information is present, then the following federally mandated warning applies: This information has been disclosed to you from records protected by federal confidentiality rules (42 CFR part 2). The federal rules prohibit you from making any further disclosure of this information unless further disclosure is expressly permitted by the written consent of the person to whom it pertains or as otherwise permitted by 42 CFR part 2. A general authorization for the release of medical or other information is NOT sufficient for this purpose. The Federal rules restrict any use of the information to criminally investigate or prosecute any alcohol or drug abuse patient.The records that you are about to access may contain highly sensitive health information, the redisclosure of which is protected by Article 27-F of the [facility] Public Health law. If you continue you may haveaccess to information: Regarding HIV / AIDS; Provided by facilities licensed or operated by the [facility] Office of Mental Health; or Provided by the [facility] Office for People With Developmental Disabilities. If such information is present, then the following [facility] mandated warning applies: This information has been disclosed to you from confidential records which are protected by state law. State law prohibits you from making any further disclosure of this information without the specific written consent of the person to whom it pertains, or as otherwise permitted by law. Any unauthorized further disclosure in violation of state law may result in a fine or group home sentence or both. A general authorization for the release of medical or other information is NOT sufficient authorization for further disclosure. Allergies and Adverse Reactions Type Description Substance Reaction Status Data Source(s ) Drug allergy No Known Drug No Known Drug [facility] Encounters Encounter Providers Location Date Indications Data Source(s ) Outpatient Attender: 11/15/2019 I31.96 R07.9 R00.2 [facility], 06:00:00 AM [facility] Care ZVIAdmitter: EDT [facility] MANUEL CARDOSOadri: WINSTON MROALES MD I31.96 R07.9 R00.2 Attender: Winston Morales 11/13/2019 12:00:00 AM E DT MEDGEN (Adalbertominiharika Morales Physician) Office Attender: Winston Morales 11/13/2019 12:00:00 AM E DT MEDGEN (Adalbertominiharika Morales Physician) Office Attender: Winston Morales 11/13/2019 12:00:00 AM E DT MEDGEN (Adalbertominiharika Morales Physician) Office Emergency Attender: YAKELIN ED STAFF H 10/30/2019 06:42:00 AM [facility] PHYSICIANAttender: ED STAFF EDT - 10/30/2019 [facility] Center PHYSICIANAttender: STAFF ED 01:17:00 PM EDT STAFF PHYSICIANAdmitter: [facility] ED STAFF PHYSICIAN Patient discharged. Attender: Winston Morales 10/30/2019 12:00:00 AM E DT MEDGEN (Winston Morales Physician) Office Attender: Winston Morales 10/30/2019 12:00:00 AM E DT MEDGEN (Adalbertominiharika Morales Physician) Office Emergency Attender: KAT 10/22/2019 CHEST PAIN [facility] JASONAttender: 11:01:00 PM EDT PQR [facility] EMERGENCY SERVICE, [facility] ation XAdmitter: DERRICK STEPHENS CHEST PAIN PQR Attender: Winston Morales 10/17/2019 12:00:00 AM E DT MEDGEN (Winston Morales Physician) Office Attender: Winston Morales 10/17/2019 12:00:00 AM E DT MEDGEN (Adalbertominiharika Morales Physician) Office Attender: Winston Morales 10/14/2019 12:00:00 AM E DT MEDGEN (Adalbertominiharika Morales Physician) Office Attender: Winston Morales 10/14/2019 12:00:00 AM E DT MEDGEN (Adalbertominiharika Morales Physician) Office Attender: Winston Morales 10/14/2019 12:00:00 AM E DT MEDGEN (Ammir Charles Physician) [facility] 10/14/2019 12:00:00 AM E DT MEDGEN (Ammir Charles Physician) [facility] 10/14/2019 12:00:00 AM E DT MEDGEN (Ammir Charles Physician) Office [facility] 10/14/2019 12:00:00 AM E DT MEDGEN (Ammir Charles Physician) Office Attender: [facility] Charles 10/14/2019 12:00:00 AM E DT MEDGEN (Ammir Charles Physician) Office [facility] 10/14/2019 12:00:00 AM E DT MEDGEN (Ammir Charles Physician) Office [facility] 10/14/2019 12:00:00 AM E DT MEDGEN (Ammir Charles Physician) Office [facility] 10/14/2019 12:00:00 AM E DT MEDGEN (Ammir Charles Physician) Office Attender: [facility] Charles 10/14/2019 12:00:00 AM E DT MEDGEN (Ammir Charles Physician) Office [facility] 10/14/2019 12:00:00 AM E DT MEDGEN (Ammir Charles Physician) Office Outpatient Attender: [id number] [facility] 09/28/2019 12:45:00 PM [facility] ([facility] EDT [facility]) Patient admitted. Emergency Attender: ED STAFF H 09/06/2019 05:14:00 PM [facility] PHYSICIANAttender: STAFF ED EDT - 09/06/2019 Medical Center STAFF PHYSICIANAdmitter: ED 10:05:00 PM EDT STAFF PHYSICIAN Patient discharged. Emergency Attender: CRISS 06/09/2019 12:36:00 CHEST [place] [facility] IVANAttender: EMERGENCY AM EDT H [facility] Care SERVICE, XAdmitter: LAURA Vila CHEST PAIN Outpatient Attender: [id number] [facility] 05/17/2019 05:47:41 AM [facility] ([facility] EDT [facility]) Patient admitted. Emergency Attender: YAKELIN ED STAFF H 03/31/2019 08:00:00 AM [facility] PHYSICIANAttender: STAFF ED EST - 03/31/2019 Medical Center STAFF PHYSICIANAdmitter: YAKELIN 11:28:00 AM EST ED STAFF PHYSICIAN Patient discharged. Emergency Attender: EMERGENCY 03/05/2019 01:17:00 HEADACH [facility] SERVICE, XAttender: PM EST Healt h Zulma EDMONDS CAROLAdmitter: Cor poration GREY JUAN HEADACHE Emergency Attender: MICHAEL ED STAFF H 03/04/2019 06:29:00 AM [facility] PHYSICIANAttender: STAFF ED EST - 03/04/2019 [facility] Center STAFF PHYSICIANAdmitter: 11:09:00 AM EST RANCHO CORDOVA ED STAFF PHYSICIAN Patient discharged. Emergency Attender: YAKELIN ED STAFF H 02/19/2019 05:37:00 PM [facility] PHYSICIANAttender: STAFF ED EST - 02/19/2019 Medical Center STAFF PHYSICIANAdmitter: YAKELIN 06:29:00 PM EST ED STAFF PHYSICIAN Patient discharged. Emergency Attender: GEORGE MARTE H 02/15/2019 12:29:00 PM [facility] PAttender: STAFF ED STAFF EST - 02/15/2019 [facility] PHYSICIANAdmitter: GEORGE 01:48:00 PM EST ESTUARDO P Patient discharged. Emergency Attender: SHRUTHI ED STAFF H 01/23/2019 05:39:00 PM [facility] PHYSICIANAttender: STAFF ED EST - 01/23/2019 [facility] STAFF PHYSICIANAdmitter: SHRUTHI 08:54:00 PM EST ED STAFF PHYSICIAN Patient discharged. Emergency Attender: ED STAFF H 01/18/2019 06:22:00 PM [facility] PHYSICIANAttender: STAFF ED EST - 01/18/2019 [facility] STAFF PHYSICIANAdmitter: ED 09:45:00 PM EST STAFF PHYSICIAN Patient discharged. Emergency Attender: CIRSS 01/15/2019 HEADACHE, LEFT [facility] IVANAttender: 11:49:00 AM EST SIDE NUMB [facility] EMERGENCY SERVICE, [facility] XAdmitter: LAURA KAHN HEADACHE, LEFT SIDE NUMB Emergency Attender: STAFF ED STAFF H 01/12/2019 06:01:00 PM [facility] PHYSICIANAttender: ED STAFF EST - 01/12/2019 [facility] Center PHYSICIANAdmitter: ED STAFF 09:52:00 PM EST PHYSICIAN Patient discharged. Emergency Attender: NOEL 01/06/2019 06:52:00 HEADACHE [facility] SHANEKA FOSTERAAdmitter: AM EST Health Care NOEL CENTENO Cor poration HEADACHE Emergency Attender: YAKELIN ED STAFF H 01/03/2019 11:11:00 AM [facility] PHYSICIANAttender: MICHAEL ED EST - 01/03/2019 Medical Center STAFF PHYSICIANAttender: STAFF 12:38:00 PM EST ED STAFF PHYSICIANAdmitter: YAKELIN ED STAFF PHYSICIAN Patient discharged. Emergency Attender: Wan [facility] 12/10/2018 08:10:00 PM [facility] Zack MDAdmitter: Wan EDT - 12/10/2018 [place] [facility] ARAUJO 11:32:00 PM EDT Patient discharged. Emergency H 11/27/2018 03:30:00 PM EDT - [address] [place] [address] 07:11:00 PM EDT Patient discharged. Emergency H 11/15/2018 10:46:00 AM EDT - [address] [place] [address] 01:09:00 PM EDT Patient discharged. Emergency H 11/05/2018 06:38:00 PM EDT - [address] [place] [address] 08:20:00 PM EDT Patient discharged. Emergency Attender: DANIELLE 10/26/2018 [place] HEADACHE [facility] EFRENAdmitter: 05:19:00 PM EDT [facility] SEVERE HEADACHE Emergency H 10/22/2018 05:15:00 PM EDT - [address] [place] [address] 07:02:00 PM EDT Patient discharged. Emergency H 09/05/2018 01:20:00 [facility] PM EDT Center Emergency H 08/26/2018 08:15:00 [facility] AM EDT Center Emergency H 08/01/2018 05:54:00 [facility] AM EDT Center Emergency Attender: TAE 06/29/2018 05:23:00 CHEST PAIN S [facility] DONNYAdmitter: PM EDT Health [facility] access hospital DONNY STRONG [facility] CHEST PAINS Emergency H 06/09/2018 10:26:[address] [facility] Emergency H 05/05/2018 08:28:[address] [facility] Immunizations Vaccine Date Status Description Data Source(s) TB Skin test is not 06/14/2018 completed MEDGEN ( Ammir Charles vaccine. 12:00:00 AM EDT Physician) TB Skin test is not 06/14/2018 completed MEDGEN ( Ammir Charles vaccine. 12:00:00 AM EDT Physician) TB Skin test is not 06/14/2018 completed MEDGEN ( Ammir Charles vaccine. 12:00:00 AM EDT Physician) TB Skin test is not 06/14/2018 completed MEDGEN ( Ammir Charles vaccine. 12:00:00 AM EDT Physician) TB Skin test is not 06/14/2018 completed MEDGEN ( Ammir Charles vaccine. 12:00:00 AM EDT Physician) TB Skin test is not 06/12/2018 completed MEDGEN ( Ammir Charles vaccine. 12:00:00 AM EDT Physician) TB Skin test is not 06/12/2018 completed MEDGEN ( Ammir Charles vaccine. 12:00:00 AM EDT Physician) TB Skin test is not 06/12/2018 completed MEDGEN ( Ammir Charles vaccine. 12:00:00 AM EDT Physician) TB Skin test is not 06/12/2018 completed MEDGEN ( Ammir Charles vaccine. 12:00:00 AM EDT Physician) TB Skin test is not 06/12/2018 completed MEDGEN ( Ammir Charles vaccine. 12:00:00 AM EDT Physician) TB Skin test is not 01/26/2018 completed MEDGEN ( Ammir Charles vaccine. 12:00:00 AM EST Physician) TB Skin test is not 01/26/2018 completed MEDGEN ( Ammir Charles vaccine. 12:00:00 AM EST Physician) TB Skin test is not 01/26/2018 completed MEDGEN ( Ammir Charles vaccine. 12:00:00 AM EST Physician) TB Skin test is not 01/26/2018 completed MEDGEN ( Ammir Charles vaccine. 12:00:00 AM EST Physician) TB Skin test is not 01/26/2018 completed MEDGEN ( Ammir Charles vaccine. 12:00:00 AM EST Physician) TB Skin test is not 05/09/2017 completed MEDGEN ( Ammir Charles vaccine. 12:00:00 AM EDT Physician) TB Skin test is not 05/09/2017 completed MEDGEN ( Ammir Charles vaccine. 12:00:00 AM EDT Physician) TB Skin test is not 05/09/2017 completed MEDGEN ( Ammir Charles vaccine. 12:00:00 AM EDT Physician) TB Skin test is not 05/09/2017 completed MEDGEN ( Ammir Charles vaccine. 12:00:00 AM EDT Physician) TB Skin test is not 05/09/2017 completed MEDGEN ( Ammir Charles vaccine. 12:00:00 AM EDT Physician) TB Skin test is not 04/19/2016 completed MEDGEN ( Ammir Charles vaccine. 12:00:00 AM EST Physician) TB Skin test is not 04/19/2016 completed MEDGEN ( Ammir Charles vaccine. 12:00:00 AM EST Physician) TB Skin test is not 04/19/2016 completed MEDGEN ( Ammir Charles vaccine. 12:00:00 AM EST Physician) TB Skin test is not 04/19/2016 completed MEDGEN ( Ammir Charles vaccine. 12:00:00 AM EST Physician) TB Skin test is not 04/19/2016 completed MEDGEN ( Ammir Charles vaccine. 12:00:00 AM EST Physician) Medications Medication Brand Start Product Dose Route Administrative Pharmacy [facility] Indications Reaction Description Data Name Date Form Instructions Instructions Source(s) Amlodipine AMLODI 10/29/ TABLET 90 complet AMLOD IPINE MEDGEN 5 MG Oral PINE 2019 ed BESYLATE (Ammir Tablet BESYLA 12:00: Charles AMLODIPINE TE:197 00 AM Physic yazan) BESYLATE:19 361 EDT 7361 Amlodipine AMLODI 10/29/ TABLET 90 complet AMLOD IPINE MEDGEN 5 MG Oral PINE 2019 ed BESYLATE (Ammir Tablet BESYLA 12:00: Charles AMLODIPINE TE:197 00 AM Physic yazan) BESYLATE:19 361 EDT 7361 Cyclobenzap FLEXER 10/23/ TABLET 30 complet FLEX ERIL MEDGEN rine IL:828 2019 ed (Ammir hydrochlori 322 12:00: Charles de 5 MG 00 AM Physician) Oral Tablet EDT [Flexeril] FLEXERIL:82 8322 Prochlorper COMPAZ 10/23/ TABLET 30 complet COMP AZINE MEDGEN azine 10 MG INE:20 2019 ed (Ammir Oral Tablet 7685 12:00: Charles [Compazine] 00 AM Physici an) COMPAZINE:2 EDT 32036 Prochlorper COMPAZ 10/23/ TABLET 30 complet COMP AZINE MEDGEN azine 10 MG INE:20 2019 ed (Ammir Oral Tablet 7685 12:00: Charles [Compazine] 00 AM Physici an) COMPAZINE:2 EDT 52967 Cyclobenzap FLEXER 10/23/ TABLET 30 complet FLEX ERIL MEDGEN rine IL:828 2019 ed (Ammir hydrochlori 322 12:00: Charles de 5 MG 00 AM Physician) Oral Tablet EDT [Flexeril] FLEXERIL:82 8322 Tylenol Tyleno 999 UNK active Tylenol [facility] l 2020 mg Infusion r Count y (AD Infusi 11:46: (ADULT) or Healt h on (AD 31 PM GT 50 kg Care EDT 1000 mg IVPB Corpora alan n Medication administered onsite NITROFURANTOIN, MACROBID:[id number] 10/16/2019 CAPSULE 14 comp leted MACROBID MEDGEN MACROCRYSTALS 25 12:00:00 AM (Ammir MG / EDT Charles Nitrofurantoin, Phys ician) Monohydrate 75 MG Oral Capsule [Macrobid] MACROBID:[id number] Furosemide 40 MG LASIX:10/14/2019 TABLET 14 complet ed LASIX MEDGEN Oral Tablet 12:00:00 AM ( Ammir [Lasix] EDT Charles LASIX: Physici an) Famotidine 20 MG FAMOTIDINE:23616 10/14/2019 TABLET 30 com pleted FAMOTIDIN MEDGEN Oral Tablet 3 12:00:00 AM E ( Ammir FAMOTIDINE:90211 EDT Rab alex 3 Physician) Furosemide 40 MG LASIX:10/14/2019 TABLET 14 complet ed LASIX MEDGEN Oral Tablet 12:00:00 AM ( Ammir [Lasix] EDT Charles LASIX: Physici an) Furosemide 40 MG LASIX:10/14/2019 TABLET 14 complet ed LASIX MEDGEN Oral Tablet 12:00:00 AM ( Ammir [Lasix] EDT Charles LASIX: Physici an) Famotidine 20 MG FAMOTIDINE:83786 10/14/2019 TABLET 30 com pleted FAMOTIDIN MEDGEN Oral Tablet 3 12:00:00 AM E ( Ammir FAMOTIDINE:57363 EDT Rab alex 3 Physician) Famotidine 20 MG FAMOTIDINE:26639 10/14/2019 TABLET 30 com pleted FAMOTIDIN MEDGEN Oral Tablet 3 12:00:00 AM E ( Ammir FAMOTIDINE:74422 EDT Rab alex 3 Physician) Famotidine 20 MG FAMOTIDINE:42053 10/14/2019 TABLET 30 com pleted FAMOTIDIN MEDGEN Oral Tablet 3 12:00:00 AM E ( Ammir FAMOTIDINE:38661 EDT Rab alex 3 Physician) Furosemide 40 MG LASIX:10/14/2019 TABLET 14 complet ed LASIX MEDGEN Oral Tablet 12:00:00 AM ( Ammir [Lasix] EDT Charles LASIX: Physici an) Ciprofloxacin CIPROFLOXACIN:30 10/14/2019 TABLET 14 comple bianca CIPROFLOX MEDGEN 500 MG Oral 9309 12:00:00 AM ACIN ( Ammir Tablet EDT Charles CIPROFLOXACIN:30 Phy sician) 9309 Simethicone 80 SIMETHICONE:3142 10/09/2019 TABLET 1 compl eted SIMETHICO MEDGEN MG Chewable 16 12:00:00 AM NE ( Ammir Tablet EDT Charles SIMETHICONE:3142 Phy sician) 16 Simethicone 80 SIMETHICONE:3142 10/09/2019 TABLET 1 compl eted SIMETHICO MEDGEN MG Chewable 16 12:00:00 AM NE ( Ammir Tablet EDT Charles SIMETHICONE:3142 Phy sician) 16 Simethicone 80 SIMETHICONE:3142 10/09/2019 TABLET 1 compl eted SIMETHICO MEDGEN MG Chewable 16 12:00:00 AM NE ( Ammir Tablet EDT Charles SIMETHICONE:3142 Phy sician) 16 Simethicone 80 SIMETHICONE:3142 10/09/2019 TABLET 1 compl eted SIMETHICO MEDGEN MG Chewable 16 12:00:00 AM NE ( Ammir Tablet EDT Charles SIMETHICONE:3142 [facility] 16 Simethicone 80 SIMETHICONE:3142 10/09/2019 TABLET 1 compl eted SIMETHICO MEDGEN MG Chewable 16 12:00:00 AM NE ( Ammir Tablet EDT Charles SIMETHICONE:3142 [facility] 16 Colchicine 0.6 COLCHICINE:07/09/2019 TABLET 30 compl eted COLCHICIN MEDGEN MG Oral Tablet 1 12:00:00 AM E (Ammir COLCHICINE: EDT [facility] alex 1 Physician) [place] 0.6 COLCHICINE:07/09/2019 TABLET 30 compl eted COLCHICIN MEDGEN MG Oral Tablet 1 12:00:00 AM E (Ammir COLCHICINE: EDT [facility] 1 Physician) [place] 0.6 COLCHICINE:07/09/2019 TABLET 30 compl eted COLCHICIN MEDGEN MG Oral Tablet 1 12:00:00 AM E (Ammir COLCHICINE: EDT [facility] 1 Physician) [place] 0.6 COLCHICINE:07/09/2019 TABLET 30 compl eted COLCHICIN MEDGEN MG Oral Tablet 1 12:00:00 AM E (Ammir COLCHICINE: EDT [facility] 1 Physician) [place] 0.6 COLCHICINE:07/09/2019 TABLET 30 compl eted COLCHICIN MEDGEN MG Oral Tablet 1 12:00:00 AM E (Ammir COLCHICINE: T [facility] 1 Physician) Cyclobenzaprine FLEXERIL:985035 06/14/2019 TABLET 30 compl eted FLEXERIL MEDGEN hydrochloride 5 12:00:00 AM (Ammir MG Oral Tablet EDT Rabad i [Flexeril] Physician ) FLEXERIL:005297 Cyclobenzaprine FLEXERIL:771314 06/14/2019 TABLET 30 compl eted FLEXERIL MEDGEN hydrochloride 5 12:00:00 AM (Ammir MG Oral Tablet EDT Rabad i [Flexeril] Physician ) FLEXERIL:313305 Cyclobenzaprine FLEXERIL:934965 06/14/2019 TABLET 30 compl eted FLEXERIL MEDGEN hydrochloride 5 12:00:00 AM (Ammir MG Oral Tablet EDT Rabad i [Flexeril] Physician ) FLEXERIL:728462 Benadryl Benadryl 01/15/2019 25 U active Nirav adryl [place] (Diphenhyd (Diphenhyd 01:20:47 PM mg N ( Diphenhy [place] EST K dramine) Health Care Oral 25 Corporation mg PO Medication administered onsite Toradol 30 Toradol 30 01/15/2019 15 mg UNK active Toradol 30 [place] mg/mL (Ke mg/mL (Ke 01:20:38 PM mg/ mL [facility] EST (Ketorolac) Care Injection 15 Corpora tion mgIVP Medication administered onsite Tylenol Tylenol 01/15/2019 975 UNK active Tylen ol [place] (Acetaminoph (Acetaminoph 01:20:08 PM mg (Acetaminophen) County EST Oral 975 mg PO [facility]alt [facility] Corporation Medication administered onsite Reglan Reglan 01/15/2019 10 UNK active Reglan [place] (Metocloprami (Metocloprami 01:19:59 PM mg (Metoclopramide) County EST Injection 10 mg [facility]al [facility] Care IVP Corporation Medication administered onsite Reglan 10 01/06/2019 999 MG UNK completed Re glan 10 MG [place] MG Oral 10:30:09 AM Oral Table t [facility] Tablet EST TAKE 1 Care TABLET EVERY Corpora tion 6 HOURS NEEDED. Dispense: 12 Reglan 10 01/06/2019 999 MG UNK completed Re glan 10 MG [place] MG Oral 10:30:09 AM Oral Table t [facility] Tablet EST TAKE 1 Care TABLET EVERY Corpora tion 6 HOURS NEEDED. Dispense: 12 Valium 5 01/06/2019 999 MG UNK completed Hallie ium 5 MG [place] MG Oral 10:30:09 AM Oral Table t [facility] Tablet EST TAKE 1 Care TABLET 3 Corporation TIMES DAILY NEEDED. Dispense: 12 Valium 5 01/06/2019 999 MG UNK completed Hallie ium 5 MG [place] MG Oral 10:30:09 AM Oral Table t [facility] Tablet EST TAKE 1 Care TABLET 3 Corporation TIMES DAILY NEEDED. Dispense: 12 Valium 5 01/06/2019 999 MG UNK completed Hallie ium 5 MG [place] MG Oral 10:30:09 AM Oral Table t [facility] Tablet EST TAKE 1 Care TABLET 3 Corporation TIMES DAILY NEEDED. Dispense: 12 Reglan 10 01/06/2019 999 MG UNK completed Re glan 10 MG [place] MG Oral 10:30:09 AM Oral Table t [facility] Tablet EST TAKE 1 Care TABLET EVERY Corpora tion 6 HOURS NEEDED. Dispense: 12 Valium 5 01/06/2019 999 MG UNK completed Hallie ium 5 MG [place] MG Oral 09:30:09 AM Oral Table t [facility] Tablet EST TAKE 1 Care TABLET 3 Corporation TIMES DAILY NEEDED. Dispense: 12 Reglan 10 01/06/2019 999 MG UNK completed Re glan 10 MG [place] MG Oral 09:30:09 AM Oral Table t [facility] Tablet EST TAKE 1 Care TABLET EVERY Corpora tion 6 HOURS NEEDED. Dispense: 12 Reglan 10 01/06/2019 999 MG UNK completed Re glan 10 MG [place] MG Oral 09:30:09 AM Oral Table t [facility] Tablet EST TAKE 1 Care TABLET EVERY Corpora tion 6 HOURS NEEDED. Dispense: 12 Valium 5 01/06/2019 999 MG UNK completed Hallie ium 5 MG [place] MG Oral 09:30:09 AM Oral Table t [facility] Tablet EST TAKE 1 Care TABLET 3 Corporation TIMES DAILY NEEDED. Dispense: 12 0.9% NaCl 0.9% 01/06/2019 1000 mL UNK active 0.9 % NaCl [place] IV NaCl IV 08:24:46 AM IV 1000 mL ; [facility] IV rate: Care Bolus over Corporati on 30 minutes Medication administered onsite Valium Valium 01/06/2019 5 mg UNK active Valium [place] (Diazepam) (Diazepam) 08:24:32 AM ( Diazepam) [facility] Or Or EST Oral 5 mg PO [facility] Corporation Medication administered onsite Toradol 30 Toradol 30 01/06/2019 30 mg UNK active Toradol 30 [place] mg/mL (Ke mg/mL (Ke 08:23:40 AM mg/ mL [facility] (Ketorolac) Care Injection 30 Corpora tion mg IVP Medication administered onsite Diphenhydramine Diphenhydramine 01/06/2019 25 UNK active Diphenhydramine [place] (Nirav (Nirav 08:22:46 AM mg (Benadryl) Co unty EST Injection 25 mg [facility]al [facility] Care IVPB Corporation Medication administered onsite Reglan Reglan 01/06/2019 10 UNK active Reglan [place] (Metocloprami (Metocloprami 08:22:38 AM mg (Metoclopramide) County EST Injection 10 mg [facility] Medication administered onsite Dihydroergotamine DIHYDROERGOTAMINE:845936 01/02/2019 SPRAY 2 completed DIHYDROERGOTAMINE MEDGEN Mesylate 0.5 MG/ACTUAT 12:00:00 AM (Ammir Nasal [place] EST Charles DIHYDROERGOTAMINE:100753 Physician) Dihydroergotamine DIHYDROERGOTAMINE:506132 01/02/2019 SPRAY 2 completed DIHYDROERGOTAMINE MEDGEN Mesylate 0.5 MG/ACTUAT 12:00:00 AM (Ammir Nasal [place] EST Charles DIHYDROERGOTAMINE:444047 Physician) Dihydroergotamine DIHYDROERGOTAMINE:938989 01/02/2019 SPRAY 2 completed DIHYDROERGOTAMINE MEDGEN Mesylate 0.5 MG/ACTUAT 12:00:00 AM (Ammir Nasal [place] EST Charles DIHYDROERGOTAMINE:[id number] Physician) Dihydroergotamine DIHYDROERGOTAMINE:[id number] 01/02/2019 SPRAY 2 completed DIHYDROERGOTAMINE [facility] Mesylate 0.5 MG/ACTUAT 12:00:00 AM (Ammir [place] EST Charles DIHYDROERGOTAMINE:[id number] Physician) Dihydroergotamine DIHYDROERGOTAMINE:[id number] 01/02/2019 SPRAY 2 completed DIHYDROERGOTAMINE [facility] Mesylate 0.5 MG/ACTUAT 12:00:00 AM (Ammir [place] EST Charles DIHYDROERGOTAMINE:[id number] Physician) Cyclobenzaprine FLEXERIL:[id number] 12/24/2018 TABLET 30 compl eted FLEXERIL MEDGEN hydrochloride 5 MG Oral 12:00:00 AM (Ammir Tablet FLEXERIL:[id number] EDT Charles Physician) Cyclobenzaprine FLEXERIL:[id number] 12/24/2018 TABLET 30 compl eted FLEXERIL MEDGEN hydrochloride 5 MG Oral 12:00:00 AM (Ammir Tablet FLEXERIL:[id number] EDT Charles Physician) AIMOVIG SURECLICK 12/24/2018 SOLUTI 3 completed AIMOVIG SURECLICK MEDGEN AUTOINJECTOR:[id number] 12:00:00 AM ON AUTOINJECTOR (Ammir EDT Charles Physician) Cyclobenzaprine FLEXERIL:[id number] 12/24/2018 TABLET 30 compl eted FLEXERIL [facility]GEN hydrochloride 5 MG Oral 12:00:00 AM (Ammir Tablet FLEXERIL:[id number] EDT Charles Physician) AIMOVIG SURECLICK 12/24/2018 SOLUTI 3 completed AIMOVIG SURECLICK MEDGEN AUTOINJECTOR:[id number] 12:00:00 AM ON AUTOINJECTOR (Ammir EDT Charles Physician) Cyclobenzaprine FLEXERIL:[id number] 12/24/2018 TABLET 30 compl eted FLEXERIL [facility]GEN hydrochloride 5 MG Oral 12:00:00 AM (Ammir Tablet FLEXERIL:[id number] EDT Charles Physician) AIMOVIG SURECLICK 12/24/2018 SOLUTI 3 completed AIMOVIG SURECLICK MEDGEN AUTOINJECTOR:[id number] 12:00:00 AM ON AUTOINJECTOR (Amnvr EDT Charles Physician) AIMOVIG SURECLICK 12/24/2018 SOLUTI 3 completed AIMOVIG SURECLICK MEDGEN AUTOINJECTOR:[id number] 12:00:00 AM ON AUTOINJECTOR (Ammir EDT Charles Physician) Cyclobenzaprine FLEXERIL:[id number] 12/24/2018 TABLET 30 compl eted FLEXERIL [facility]GEN hydrochloride 5 MG Oral 12:00:00 AM (Ammir Tablet FLEXERIL:[id number] T Charles Physician) AIMOVIG SURECLICK 12/24/2018 SOLUTI 3 completed AIMOVIG SURECLICK MEDGEN AUTOINJECTOR:[id number] 12:00:00 AM ON AUTOINJECTOR (Amnvr EDT Charles Physician) pantoprazole 40 MG PANTOPRAZOLE:[id number] 07/16/2018 DELAYE 90 completed PANTOPRAZOLE [facility] Delayed Release Oral 12:00:00 AM D (Ammir Tablet EDT RELEAS Charles PANTOPRAZOLE:[id number] E Physician) TABLET pantoprazole 40 MG PANTOPRAZOLE:[id number] 07/16/2018 DELAYE 90 completed PANTOPRAZOLE [facility] Delayed Release Oral 12:00:00 AM D (Ammir Tablet EDT RELEAS Charles PANTOPRAZOLE:[id number] E Physician) TABLET pantoprazole 40 MG PANTOPRAZOLE:[id number] 07/16/2018 DELAYE 90 completed PANTOPRAZOLE [facility] Delayed Release Oral 12:00:00 AM D (Ammir Tablet EDT RELEAS Charles PANTOPRAZOLE:[id number] E Physician) TABLET pantoprazole 40 MG PANTOPRAZOLE:[id number] 07/16/2018 DELAYE 90 completed PANTOPRAZOLE [facility] Delayed Release Oral 12:00:00 AM D (Ammir Tablet EDT RELEAS Charles PANTOPRAZOLE:[id number] E Physician) TABLET pantoprazole 40 MG PANTOPRAZOLE:[id number] 07/16/2018 DELAYE 90 completed PANTOPRAZOLE [facility]GEN Delayed Release Oral 12:00:00 AM D (Ammir Tablet EDT RELEAS Charles PANTOPRAZOLE:[id number] E Physician) TABLET Ergocalciferol 55169 UNT VITAMIN D2:[id number] 03/27/2018 CAPSUL 12 completed VITAMIN D2 [facility] Oral Capsule VITAMIN 12:00:00 AM E (Ammir D2:[id number] EST Charles Physician) ferrous sulfate 325 MG FEOSOL:[id number] 03/27/2018 TABLET 90 completed FEOSOL [facility] Oral Tablet [Feosol] 12:00:00 AM (Ammir FEOSOL:[id number] EST Charles Physician) ferrous sulfate 325 MG FEOSOL:[id number] 03/27/2018 TABLET 90 completed FEOSOL [facility] Oral Tablet [Feosol] 12:00:00 AM (Ammir FEOSOL:[id number] EST Charles Physician) Ergocalciferol 15230 UNT VITAMIN D2:[id number] 03/27/2018 CAPSUL 12 completed VITAMIN D2 [facility] Oral Capsule VITAMIN 12:00:00 AM E (Ammir D2:[id number] EST [place] Physician) Ergocalciferol 77911 UNT VITAMIN D2:[id number] 03/27/2018 CAPSUL 12 completed VITAMIN D2 [facility]GEN Oral Capsule VITAMIN 12:00:00 AM E (Ammir D2:[id number] EST Charles Physician) ferrous sulfate 325 MG FEOSOL:[id number] 03/27/2018 TABLET 90 completed FEOSOL [facility] Oral Tablet [Feosol] 12:00:00 AM (Ammir FEOSOL:[id number] EST Charles Physician) ferrous sulfate 325 MG FEOSOL:[id number] 03/27/2018 TABLET 90 completed FEOSOL [facility]GEN Oral Tablet [Feosol] 12:00:00 AM (Ammir FEOSOL:097674 EST Charles Physician) Ergocalciferol 41639 UNT VITAMIN D2:[id number] 03/27/2018 CAPSUL 12 completed VITAMIN D2 [facility]GEN Oral Capsule VITAMIN 12:00:00 AM E (Ammir D2:[id number] EST [place] Physician) Ergocalciferol 73490 UNT VITAMIN D2:[id number] 03/27/2018 CAPSUL 12 completed VITAMIN D2 [facility]GEN Oral Capsule VITAMIN 12:00:00 AM E (Ammir D2:[id number] EST [place] Physician) ferrous sulfate 325 MG FEOSOL:[id number] 03/27/2018 TABLET 90 completed FEOSOL [facility]GEN Oral Tablet [Feosol] 12:00:00 AM (Ammir FEOSOL:534798 EST Charles Physician) atorvastatin 40 MG Oral LIPITOR:[id number] 03/26/2018 TABLET 90 completed LIPITOR MEDGEN Tablet LIPITOR:[id number] 12:00:00 AM (Ammir EST [place] Physician) atorvastatin 40 MG Oral LIPITOR:[id number] 03/26/2018 TABLET 90 completed LIPITOR MEDGEN Tablet LIPITOR:[id number] 12:00:00 AM (Ammir EST [place] Physician) atorvastatin 40 MG Oral LIPITOR:[id number] 03/26/2018 TABLET 90 completed LIPITOR MEDGEN Tablet LIPITOR:[id number] 12:00:00 AM (Ammir EST [place] Physician) atorvastatin 40 MG Oral LIPITOR:[id number] 03/26/2018 TABLET 90 completed LIPITOR MEDGEN Tablet LIPITOR:[id number] 12:00:00 AM (Ammir EST [place] Physician) atorvastatin 40 MG Oral LIPITOR:[id number] 03/26/2018 TABLET 90 completed LIPITOR MEDGEN Tablet LIPITOR:[id number] 12:00:00 AM (Ammir EST Charles Physician) pantoprazole 40 MG Oral Protonix 99 o completed Protonix [place] Granules [Protonix] 9 r [facility] [employer] pantoprazole 40 MG Oral pantoprazole 99 o disconti nu pantoprazole [place] Granules [Protonix] 9 r [facility] naratriptan 1 MG Oral naratriptan 99 o discontinu naratriptan [place] Tablet [Amerge] 9 r [facility] [employer] pantoprazole 40 MG Oral pantoprazole 99 o disconti nu pantoprazole [place] Granules [Protonix] 9 r [place] MG a BUX atorvastatin 10 MG Oral atorvastatin 99 o complete d atorvastatin [place] Tablet [Lipitor] 9 r Cou nty MG a BUX Sumatriptan 25 MG Oral sumatriptan succinate M o discontinu sumatriptan [place] Tablet [Imitrex] G r ed succinat e [facility] sumatriptan succinate a BUX pantoprazole 40 MG Oral pantoprazole 99 o disconti nu pantoprazole [place] Granules [Protonix] 9 r [place] MG a BUX Sumatriptan 25 MG Oral sumatriptan succinate M o discontinu sumatriptan [place] Tablet [Imitrex] G r ed succinat e [facility] sumatriptan succinate a BUX naratriptan 1 MG Oral naratriptan 99 o discontinu naratriptan [place] Tablet [Amerge] 9 r ed Coun ty MG a BUX pantoprazole 40 MG Oral Protonix 99 o completed Protonix [place] Granules [Protonix] 9 r [place] MG a BUX Sumatriptan 25 MG Oral sumatriptan succinate M o discontinu sumatriptan [place] Tablet [Imitrex] G r ed succinat e [facility] sumatriptan succinate a BUX naratriptan 1 MG Oral naratriptan 99 o discontinu naratriptan [place] Tablet [Amerge] 9 r ed Coun ty MG a BUX Not Taking Home Meds Not Taking Home Meds 99 U dis continu Not Taking Home [place] 9 N ed Med[place] MG K [employer] 200 ACTUAT Albuterol 0.09 albuterol 99 i completed albuterol [place] MG/ACTUAT Metered Dose 9 n [facility] Inhaler [Ventolin] MG h [facility] albuterol a Corporatio n l a t i o n naratriptan 1 MG Oral naratriptan 99 o discontinu naratriptan [place] Tablet [Amerge] 9 r ed Coun ty MG a BUX Diphenhydramine Benadryl 99 o completed Benadryl [place] Hydrochloride 25 MG Oral 9 r [facility] Capsule [Benadryl] MG a H ealt [employer] Not Taking Home Meds Not Taking Home Meds 99 U dis continu Not Taking Home [place] 9 N ed Meds [facility] MG K [employer] atorvastatin 10 MG Oral atorvastatin 99 o complete d atorvastatin [place] Tablet [Lipitor] 9 r Cou nty MG a BUX Not Taking Home Meds Not Taking Home Meds 99 U dis continu Not Taking Home [place] 9 N Meds [facility] MG K [employer] Colchicine 0.6 MG Oral colchicine 99 o completed colchicine [place] Capsule [Mitigare] 9 r C ounty colchicine MG a [place] atorvastatin 10 MG Oral atorvastatin 99 o complete d atorvastatin [place] Tablet [Lipitor] 9 r Cou nty MG a BUX atorvastatin 10 MG Oral atorvastatin 99 o complete d atorvastatin [place] Tablet [Lipitor] 9 r Cou nty MG a BUX pantoprazole 40 MG Oral Protonix 99 o discontinu Protonix [place] Granules [Protonix] 9 r [facility] MG BUX pantoprazole 40 MG Oral pantoprazole 99 o disconti nu pantoprazole [place] Granules [Protonix] 9 r [facility] MG a BUX pantoprazole 40 MG Oral pantoprazole 99 o disconti nu pantoprazole [place] Granules [Protonix] 9 [facility] MG BUX Sumatriptan 25 MG Oral sumatriptan succinate M o discontinu sumatriptan [place] Tablet [Imitrex] G r succinat e [facility] sumatriptan succinate a BUX 200 ACTUAT Albuterol 0.09 albuterol 99 i completed albuterol [place] MG/ACTUAT Metered Dose 9 n [facility] Inhaler [Ventolin] MG h [facility] albuterol a Corporatio n l a t i o n Not Taking Home Meds Not Taking Home Meds 99 U dis continu Not Taking Home [place] 9 N Meds [facility] MG K [employer] rizatriptan 10 MG Oral rizatriptan 10 mg Tablet, 1 completed [facility] Tablet rizatriptan 10 mg Ordered By: Yakelin Lyons Tablet, Ordered By: SHAWN Jackirections: 1 SHAWN Senirections: tablet oral daily PRN Center 1 tablet oral daily PRN headache headache Ketorolac Tromethamine 10 ketorolac 10 mg Tablet, 1 completed [facility] MG Oral Tablet ketorolac Ordered By: Yakelin Lyons 10 mg Tablet, Ordered By: SHAWN Enriquezirections: 1 Medical Yakelin Enriquez, tablet oral every six Center MDDirections: 1 tablet hours PRN headache oral every six hours PRN headache Diphenhydramine Benadryl 99 o completed Benadryl [place] Hydrochloride 25 MG Oral 9 [facility] Capsule [Benadryl] MG a [facility] [employer] Omeprazole 10 MG Delayed omeprazole 99 o completed omeprazole [place] Release Oral Capsule 9 r [facility] [Losec] omeprazole MG a [facility] [employer] atorvastatin 10 MG Oral atorvastatin 99 o complete d atorvastatin [place] Tablet [Lipitor] 9 r [facility] nty MG a BUX Diphenhydramine Benadryl 99 o discontinu Benadryl [place] Hydrochloride 25 MG Oral 9 r [facility] Capsule [Benadryl] MG a [facility] [employer] naratriptan 1 MG Oral naratriptan 99 o discontinu naratriptan [place] Tablet [Amerge] 9 r Coun ty MG a BUX Not Taking Home Meds Not Taking Home Meds 99 U dis continu Not Taking Home [place] 9 [place] MG K [employer] pantoprazole 40 MG Oral Protonix 99 o completed Protonix [place] Granules [Protonix] 9 r [facility] MG BUX Omeprazole 10 MG Delayed omeprazole 99 o discontin u omeprazole [place] Release Oral Capsule 9 r [facility] [Losec] omeprazole MG a H [facility] [employer] Prednisone 20 MG Oral predniSONE 20 mg Tablet, 2 completed [facility] Tablet predniSONE 20 mg Ordered By: Eloy Do Tablet, Ordered By: Viridiana PADirections: 2 tablet Samira Smalls PADirections: 2 oral daily Center tablet oral daily Ketorolac Tromethamine 10 ketorolac 10 mg Tablet, 1 completed [facility] MG Oral Tablet ketorolac Ordered By: Eloy Do 10 mg Tablet, Ordered By: PADirections: 1 tablet Medical Viridiana Green, oral every six hours PRN Center PADirections: 1 tablet pain oral every six hours PRN pain Diphenhydramine Benadryl 99 o completed Benadryl [place] Hydrochloride 25 MG Oral 9 r [facility] Capsule [Benadryl] MG a H [facility] [employer] Insurance Providers Payer name Policy type Policy ID Covered Covered libertarian's Policy P bryce / Coverage libertarian ID relationship to Trevino Inf ormation type trevino [place]ICA[place] [id number] [place] [id number] HMO MVP/HHP O [id number] 01 [id number] UNK [id number] UNK [id number] UNK [id number] UNK [id number] UNK [id number] Problems, Conditions, and Diagnoses Code Display Name Description Problem Type Effective Data Sour ce(s) Dates R00.2 Palpitations PALPITATIONS Problem 10/14/2019 MEDGEN (Am teetee 12:00:00 AM Charles EDT Physician) N39.0 Urinary tract URINARY TRACT Problem 10/14/2019 MEDGEN ( Ammir infection, site not INFECTION, SITE NOT 12:00:0 0 AM Charles specified SPECIFIED EDT Physician) R60.9 Edema, unspecified EDEMA, UNSPECIFIED Problem 0 MEDGEN (Ammir 12:00:00 AM [place] EDT Physician) R94.31 Abnormal ABNORMAL Problem 10/14/2019 MEDGEN (Ammir electrocardiogram ELECTROCARDIOGRAM 12:00:00 AM Charles [ECG] [EKG] [ECG] [EKG] EDT Physician) R00.2 Palpitations PALPITATIONS Problem 10/14/2019 MEDGEN (Am teetee 12:00:00 AM [place] EDT Physician) N39.0 Urinary tract URINARY TRACT Problem 10/14/2019 MEDGEN ( Ammir infection, site not INFECTION, SITE NOT 12:00:0 0 AM [place] specified SPECIFIED EDT Physician) R60.9 Edema, unspecified EDEMA, UNSPECIFIED Problem 0 MEDGEN (Ammir 12:00:00 AM [place] EDT Physician) R94.31 Abnormal ABNORMAL Problem 10/14/2019 MEDGEN (Ammir electrocardiogram ELECTROCARDIOGRAM 12:00:00 AM Charles [ECG] [EKG] [ECG] [EKG] EDT Physician) R00.2 Palpitations PALPITATIONS Problem 10/14/2019 MEDGEN (Am teetee 12:00:00 AM Charles EDT Physician) R60.9 Edema, unspecified EDEMA, UNSPECIFIED Problem 0 MEDGEN (Ammir 12:00:00 AM [place] EDT Physician) R94.31 Abnormal ABNORMAL Problem 10/14/2019 MEDGEN (Ammir electrocardiogram ELECTROCARDIOGRAM 12:00:00 AM Charles [ECG] [EKG] [ECG] [EKG] EDT Physician) R00.2 Palpitations PALPITATIONS Problem 10/14/2019 MEDGEN (Am teetee 12:00:00 AM Charles EDT Physician) R60.9 Edema, unspecified EDEMA, UNSPECIFIED Problem 0 MEDGEN (Ammir 12:00:00 AM Charles EDT Physician) R94.31 Abnormal ABNORMAL Problem 10/14/2019 MEDGEN (Ammir electrocardiogram ELECTROCARDIOGRAM 12:00:00 AM Charles [ECG] [EKG] [ECG] [EKG] EDT Physician) R00.2 Palpitations PALPITATIONS Problem 10/14/2019 MEDGEN (Am teetee 12:00:00 AM Charles EDT Physician) N39.0 Urinary tract URINARY TRACT Problem 10/14/2019 MEDGEN ( Ammir infection, site not INFECTION, SITE NOT 12:00:0 0 AM [place] specified SPECIFIED EDT Physician) R60.9 Edema, unspecified EDEMA, UNSPECIFIED Problem 0 MEDGEN (Ammir 12:00:00 AM Charles EDT Physician) R94.31 Abnormal ABNORMAL Problem 10/14/2019 MEDGEN (Ammir electrocardiogram ELECTROCARDIOGRAM 12:00:00 AM Charles [ECG] [EKG] [ECG] [EKG] EDT Physician) R05 Cough COUGH Problem 06/05/2019 MEDGEN (Ammir 12:00:00 AM [place] EDT Physician) R06.02 Shortness of breath SHORTNESS OF BREATH Problem 020 MEDGEN (Ammir 12:00:00 AM Charles EDT Physician) R05 Cough COUGH Problem 06/05/2019 MEDGEN (Ammir 12:00:00 AM [place] EDT Physician) R06.02 Shortness of breath SHORTNESS OF BREATH Problem 020 MEDGEN (Ammir 12:00:00 AM Charles EDT Physician) R05 Cough COUGH Problem 06/05/2019 MEDGEN (Ammir 12:00:00 AM [place] EDT Physician) R06.02 Shortness of breath SHORTNESS OF BREATH Problem 020 MEDGEN (Ammir 12:00:00 AM Charles EDT Physician) R05 Cough COUGH Problem 06/05/2019 MEDGEN (Ammir 12:00:00 AM [place] EDT Physician) R06.02 Shortness of breath SHORTNESS OF BREATH Problem 020 MEDGEN (Ammir 12:00:00 AM Charles EDT Physician) R05 Cough COUGH Problem 06/05/2019 MEDGEN (Ammir 12:00:00 AM [place] EDT Physician) R06.02 Shortness of breath SHORTNESS OF BREATH Problem 020 MEDGEN (Ammir 12:00:00 AM [place] EDT Physician) R19.7 Diarrhea, DIARRHEA, Problem 05/22/2019 MEDGEN (Ammir unspecified UNSPECIFIED 12:00:00 AM [place] EDT Physician) R19.7 Diarrhea, DIARRHEA, Problem 05/22/2019 MEDGEN (Ammir unspecified UNSPECIFIED 12:00:00 AM [place] EDT Physician) R19.7 Diarrhea, DIARRHEA, Problem 05/22/2019 MEDGEN (Ammir unspecified UNSPECIFIED 12:00:00 AM [place] EDT Physician) R19.7 Diarrhea, DIARRHEA, Problem 05/22/2019 MEDGEN (Ammir unspecified UNSPECIFIED 12:00:00 AM [place] EDT Physician) R19.7 Diarrhea, DIARRHEA, Problem 05/22/2019 MEDGEN (Ammir unspecified UNSPECIFIED 12:00:00 AM [place] EDT Physician) M25.559 Pain in unspecified PAIN IN UNSPECIFIED Problem 020 MEDGEN (Ammir hip HIP 12:00:00 AM [place] EDT Physician) M25.559 Pain in unspecified PAIN IN UNSPECIFIED Problem 020 MEDGEN (Ammir hip HIP 12:00:00 AM [place] EDT Physician) M25.559 Pain in unspecified PAIN IN UNSPECIFIED Problem 020 MEDGEN (Ammir hip HIP 12:00:00 AM [place] EDT Physician) M25.559 Pain in unspecified PAIN IN UNSPECIFIED Problem 020 MEDGEN (Ammir hip HIP 12:00:00 AM [place] EDT Physician) M25.559 Pain in unspecified PAIN IN UNSPECIFIED Problem 020 MEDGEN (Ammir hip HIP 12:00:00 AM [place] EDT Physician) M25.562 Pain in left knee PAIN IN LEFT KNEE Problem 12/24/2018 MEDGEN (Ammir 12:00:00 AM [place] EDT Physician) R73.03 Prediabetes PREDIABETES Problem 12/24/2018 MEDGEN (Ammi r 12:00:00 AM [place] EDT Physician) M25.562 Pain in left knee PAIN IN LEFT KNEE Problem 12/24/2018 MEDGEN (Ammir 12:00:00 AM [place] EDT Physician) R73.03 Prediabetes PREDIABETES Problem 12/24/2018 MEDGEN (Ammi r 12:00:00 AM [place] EDT Physician) M25.562 Pain in left knee PAIN IN LEFT KNEE Problem 12/24/2018 MEDGEN (Ammir 12:00:00 AM [place] EDT Physician) R73.03 Prediabetes PREDIABETES Problem 12/24/2018 MEDGEN (Ammi r 12:00:00 AM [place] EDT Physician) M25.562 Pain in left knee PAIN IN LEFT KNEE Problem 12/24/2018 MEDGEN (Ammir 12:00:00 AM [place] EDT Physician) R73.03 Prediabetes PREDIABETES Problem 12/24/2018 MEDGEN (Ammi r 12:00:00 AM [place] EDT Physician) M25.562 Pain in left knee PAIN IN LEFT KNEE Problem 12/24/2018 MEDGEN (Ammir 12:00:00 AM [place] EDT Physician) R73.03 Prediabetes PREDIABETES Problem 12/24/2018 MEDGEN (Ammi r 12:00:00 AM [place] EDT Physician) R07.9 Chest pain, CHEST PAIN, Problem 07/02/2018 MEDGEN (Ammi r unspecified UNSPECIFIED 12:00:00 AM [place] EDT Physician) Z09 Encounter for ENCOUNTER FOR Problem 07/02/2018 MEDGEN ( Ammir follow-up FOLLOW-UP 12:00:00 AM Charles examination after EXAMINATION AFTER EDT Physician) completed treatment COMPLETED TREATMENT for conditions other FOR CONDITIONS OTHER than malignant THAN MALIGNANT neoplasm NEOPLASM R07.9 Chest pain, CHEST PAIN, Problem 07/02/2018 MEDGEN (Ammi r unspecified UNSPECIFIED 12:00:00 AM [place] EDT Physician) Z09 Encounter for ENCOUNTER FOR Problem 07/02/2018 MEDGEN ( Ammir follow-up FOLLOW-UP 12:00:00 AM [place] examination after EXAMINATION AFTER EDT Physician) completed treatment COMPLETED TREATMENT for conditions other FOR CONDITIONS OTHER than malignant THAN MALIGNANT neoplasm NEOPLASM R07.9 Chest pain, CHEST PAIN, Problem 07/02/2018 MEDGEN (Ammi r unspecified UNSPECIFIED 12:00:00 AM [place] EDT Physician) Z09 Encounter for ENCOUNTER FOR Problem 07/02/2018 MEDGEN ( Ammir follow-up FOLLOW-UP 12:00:00 AM [place] examination after EXAMINATION AFTER EDT Physician) completed treatment COMPLETED TREATMENT for conditions other FOR CONDITIONS OTHER than malignant THAN MALIGNANT neoplasm NEOPLASM R07.9 Chest pain, CHEST PAIN, Problem 07/02/2018 MEDGEN (Ammi r unspecified UNSPECIFIED 12:00:00 AM [place] EDT Physician) Z09 Encounter for ENCOUNTER FOR Problem 07/02/2018 MEDGEN ( Ammir follow-up FOLLOW-UP 12:00:00 AM Charles examination after EXAMINATION AFTER EDT Physician) completed treatment COMPLETED TREATMENT for conditions other FOR CONDITIONS OTHER than malignant THAN MALIGNANT neoplasm NEOPLASM R07.9 Chest pain, CHEST PAIN, Problem 07/02/2018 MEDGEN (Ammi r unspecified UNSPECIFIED 12:00:00 AM [place] EDT Physician) Z09 Encounter for ENCOUNTER FOR Problem 07/02/2018 MEDGEN ( Ammir follow-up FOLLOW-UP 12:00:00 AM Charles examination after EXAMINATION AFTER EDT Physician) completed treatment COMPLETED TREATMENT for conditions other FOR CONDITIONS OTHER than malignant THAN MALIGNANT neoplasm NEOPLASM Z02.1 Encounter for ENCOUNTER FOR Problem 06/12/2018 MEDGEN ( Ammir pre-employment PRE-EMPLOYMENT 12:00:00 AM Rabad i examination EXAMINATION EDT Physician) Z02.1 Encounter for ENCOUNTER FOR Problem 06/12/2018 MEDGEN ( Ammir pre-employment PRE-EMPLOYMENT 12:00:00 AM Rabad i examination EXAMINATION EDT Physician) Z02.1 Encounter for ENCOUNTER FOR Problem 06/12/2018 MEDGEN ( Ammir pre-employment PRE-EMPLOYMENT 12:00:00 AM Rabad i examination EXAMINATION EDT Physician) Z02.1 Encounter for ENCOUNTER FOR Problem 06/12/2018 MEDGEN ( Ammir pre-employment PRE-EMPLOYMENT 12:00:00 AM Rabad i examination EXAMINATION EDT Physician) Z02.1 Encounter for ENCOUNTER FOR Problem 06/12/2018 MEDGEN ( Ammir pre-employment PRE-EMPLOYMENT 12:00:00 AM Rabad i examination EXAMINATION EDT Physician) M48.00 Spinal stenosis, SPINAL STENOSIS, Problem 04/11/2018 ME DGEN (Ammir site unspecified SITE UNSPECIFIED 12:00:00 AM R kyleigh EST Physician) M54.40 Lumbago with LUMBAGO WITH Problem 04/11/2018 MEDGEN (Am teetee sciatica, SCIATICA, 12:00:00 AM Charles unspecified side UNSPECIFIED SIDE EST Ph ysician) M48.00 Spinal stenosis, SPINAL STENOSIS, Problem 04/11/2018 ME DGEN (Ammir site unspecified SITE UNSPECIFIED 12:00:00 AM R kyleigh EST Physician) M54.40 Lumbago with LUMBAGO WITH Problem 04/11/2018 MEDGEN (Am teetee sciatica, SCIATICA, 12:00:00 AM Charles unspecified side UNSPECIFIED SIDE EST Ph ysician) M48.00 Spinal stenosis, SPINAL STENOSIS, Problem 04/11/2018 ME DGEN (Ammir site unspecified SITE UNSPECIFIED 12:00:00 AM R kyleigh EST Physician) M54.40 Lumbago with LUMBAGO WITH Problem 04/11/2018 MEDGEN (Am teetee sciatica, SCIATICA, 12:00:00 AM Charles unspecified side UNSPECIFIED SIDE EST Ph ysician) M48.00 Spinal stenosis, SPINAL STENOSIS, Problem 04/11/2018 ME DGEN (Ammir site unspecified SITE UNSPECIFIED 12:00:00 AM R kyleigh EST Physician) M54.40 Lumbago with LUMBAGO WITH Problem 04/11/2018 MEDGEN (Am teetee sciatica, SCIATICA, 12:00:00 AM [place] unspecified side UNSPECIFIED SIDE EST Ph ysician) M48.00 Spinal stenosis, SPINAL STENOSIS, Problem 04/11/2018 ME DGEN (Ammir site unspecified SITE UNSPECIFIED 12:00:00 AM R kyleigh EST Physician) M54.40 Lumbago with LUMBAGO WITH Problem 04/11/2018 MEDGEN (Am teetee sciatica, SCIATICA, 12:00:00 AM [place] unspecified side UNSPECIFIED SIDE EST Ph ysician) M54.5 Low back pain LOW BACK PAIN Problem 10/12/2017 MEDGEN ( Ammir 12:00:00 AM Charles EDT Physician) E66.8 Other obesity OTHER OBESITY Problem 10/12/2017 MEDGEN ( Ammir 12:00:00 AM [place] EDT Physician) M54.5 Low back pain LOW BACK PAIN Problem 10/12/2017 MEDGEN ( Ammir 12:00:00 AM [place] EDT Physician) E66.8 Other obesity OTHER OBESITY Problem 10/12/2017 MEDGEN ( Ammir 12:00:00 AM [place] EDT Physician) M54.5 Low back pain LOW BACK PAIN Problem 10/12/2017 MEDGEN ( Ammir 12:00:00 AM [place] EDT Physician) E66.8 Other obesity OTHER OBESITY Problem 10/12/2017 MEDGEN ( Ammir 12:00:00 AM [place] EDT Physician) M54.5 Low back pain LOW BACK PAIN Problem 10/12/2017 MEDGEN ( Ammir 12:00:00 AM [place] EDT Physician) E66.8 Other obesity OTHER OBESITY Problem 10/12/2017 MEDGEN ( Ammir 12:00:00 AM [place] EDT Physician) M54.5 Low back pain LOW BACK PAIN Problem 10/12/2017 MEDGEN ( Ammir 12:00:00 AM Charles EDT Physician) E66.8 Other obesity OTHER OBESITY Problem 10/12/2017 MEDGEN ( Ammir 12:00:00 AM [place] EDT Physician) M54.2 Cervicalgia CERVICALGIA Problem 10/06/2017 MEDGEN (Ammi r 12:00:00 AM [place] EDT Physician) M54.42 Lumbago with LUMBAGO WITH Problem 10/06/2017 MEDGEN (Am teetee sciatica, left side SCIATICA, LEFT SIDE 12:00:0 0 AM Charles EDT Physician) M54.16 Radiculopathy, RADICULOPATHY, Problem 10/06/2017 MEDGEN (Ammir lumbar region LUMBAR REGION 12:00:00 AM Charles EDT Physician) M54.2 Cervicalgia CERVICALGIA Problem 10/06/2017 MEDGEN (Ammi r 12:00:00 AM [place] EDT Physician) M54.42 Lumbago with LUMBAGO WITH Problem 10/06/2017 MEDGEN (Am teetee sciatica, left side SCIATICA, LEFT SIDE 12:00:0 0 AM Charles EDT Physician) M54.16 Radiculopathy, RADICULOPATHY, Problem 10/06/2017 MEDGEN (Ammir lumbar region LUMBAR REGION 12:00:00 AM Charles EDT Physician) M54.2 Cervicalgia CERVICALGIA Problem 10/06/2017 [facility] (Ammi r 12:00:00 AM Charles EDT Physician) M54.42 Lumbago with LUMBAGO WITH Problem 10/06/2017 [facility] (Am teetee sciatica, left side SCIATICA, LEFT SIDE 12:00:0 0 AM Charles EDT Physician) M54.16 Radiculopathy, RADICULOPATHY, Problem 10/06/2017 [facility] (Ammir lumbar region LUMBAR REGION 12:00:00 AM Charles EDT Physician) M54.2 Cervicalgia CERVICALGIA Problem 10/06/2017 [facility] (Ammi r 12:00:00 AM Charles EDT Physician) M54.42 Lumbago with LUMBAGO WITH Problem 10/06/2017 [facility] (Am teetee sciatica, left side SCIATICA, LEFT SIDE 12:00:0 0 AM Charles EDT Physician) M54.16 Radiculopathy, RADICULOPATHY, Problem 10/06/2017 [facility] (Ammir lumbar region LUMBAR REGION 12:00:00 AM Charles EDT Physician) M54.2 Cervicalgia CERVICALGIA Problem 10/06/2017 [facility] (Ammi r 12:00:00 AM Charles EDT Physician) M54.42 Lumbago with LUMBAGO WITH Problem 10/06/2017 [facility] (Am teetee sciatica, left side SCIATICA, LEFT SIDE 12:00:0 0 AM Charles EDT Physician) M54.16 Radiculopathy, RADICULOPATHY, Problem 10/06/2017 [facility] (Ammir lumbar region LUMBAR REGION 12:00:00 AM Charles EDT Physician) I10 Essential (primary) ESSENTIAL (PRIMARY) Problem 018 [facility] (Ammir hypertension HYPERTENSION 12:00:00 AM Charles EDT Physician) 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 Problem 07/31/2017 MEDG EN (Ammir anemia, unspecified ANEMIA, UNSPECIFIED 12:00:0 0 AM Charles EDT Physician) R51 Headache HEADACHE Problem 07/31/2017 [facility] (Ammir 12:00:00 AM Charles EDT Physician) I10 Essential (primary) ESSENTIAL (PRIMARY) Problem 018 [facility] (Ammir hypertension HYPERTENSION 12:00:00 AM Charles EDT Physician) 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 Problem 07/31/2017 MEDG EN (Ammir anemia, unspecified ANEMIA, UNSPECIFIED 12:00:0 0 AM Charles EDT Physician) R51 Headache HEADACHE Problem 07/31/2017 [facility] (Ammir 12:00:00 AM Charles EDT Physician) I10 Essential (primary) ESSENTIAL (PRIMARY) Problem 018 [facility] (Ammir hypertension HYPERTENSION 12:00:00 AM Charles EDT Physician) 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 Problem 07/31/2017 MEDG EN (Ammir anemia, unspecified ANEMIA, UNSPECIFIED 12:00:0 0 AM Charles EDT Physician) R51 Headache HEADACHE Problem 07/31/2017 [facility] (Ammir 12:00:00 AM Charles EDT Physician) I10 Essential (primary) ESSENTIAL (PRIMARY) Problem 018 [facility] (Ammir hypertension HYPERTENSION 12:00:00 AM Charles EDT Physician) 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 Problem 07/31/2017 MEDG EN (Ammir anemia, unspecified ANEMIA, UNSPECIFIED 12:00:0 0 AM Charles EDT Physician) R51 Headache HEADACHE Problem 07/31/2017 [facility] (Ammir 12:00:00 AM Charles EDT Physician) I10 Essential (primary) ESSENTIAL (PRIMARY) Problem 018 [facility] (Ammir hypertension HYPERTENSION 12:00:00 AM Charles EDT Physician) 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 Problem 07/31/2017 MED[facility] EN (Ammir anemia, unspecified ANEMIA, UNSPECIFIED 12:00:0 0 AM Charles EDT Physician) R51 Headache HEADACHE Problem 07/31/2017 [facility] (Ammir 12:00:00 AM Charles EDT Physician) H02.9 Unspecified disorder UNSPECIFIED DISORDER Problem 07/10 [facility] (Ammir of eyelid OF EYELID 12:00:00 AM Charles EDT Physician) H00.019 Hordeolum externum HORDEOLUM EXTERNUM Problem 8 [facility] (Ammir unspecified eye, UNSPECIFIED EYE, 12:00:00 AM R kyleigh unspecified eyelid UNSPECIFIED EYELID EDT Physician) H02.9 Unspecified disorder UNSPECIFIED DISORDER Problem 07/10 [facility] (Ammir of eyelid OF EYELID 12:00:00 AM Charles EDT Physician) H00.019 Hordeolum externum HORDEOLUM EXTERNUM Problem 8 [facility] (Ammir unspecified eye, UNSPECIFIED EYE, 12:00:00 AM R kyleigh unspecified eyelid UNSPECIFIED EYELID EDT Physician) H02.9 Unspecified disorder UNSPECIFIED DISORDER Problem 07/10 [facility] (Ammir of eyelid OF EYELID 12:00:00 AM Charles EDT Physician) H00.019 Hordeolum externum HORDEOLUM EXTERNUM Problem 8 [facility] (Ammir unspecified eye, UNSPECIFIED EYE, 12:00:00 AM R kyleigh unspecified eyelid UNSPECIFIED EYELID EDT Physician) H02.9 Unspecified disorder UNSPECIFIED DISORDER Problem 07/10 [facility] (Ammir of eyelid OF EYELID 12:00:00 AM Charles EDT Physician) H00.019 Hordeolum externum HORDEOLUM EXTERNUM Problem 8 [facility] (Ammir unspecified eye, UNSPECIFIED EYE, 12:00:00 AM R kyleigh unspecified eyelid UNSPECIFIED EYELID EDT Physician) H02.9 Unspecified disorder UNSPECIFIED DISORDER Problem 07/10 [facility] (Ammir of eyelid OF EYELID 12:00:00 AM Charles EDT Physician) H00.019 Hordeolum externum HORDEOLUM EXTERNUM Problem 8 [facility] (Ammir unspecified eye, UNSPECIFIED EYE, 12:00:00 AM R kyleigh unspecified eyelid UNSPECIFIED EYELID EDT Physician) Z11.1 Encounter for ENCOUNTER FOR Problem 05/09/2017 [facility] ( Ammir screening for SCREENING FOR 12:00:00 AM Charles respiratory RESPIRATORY EDT Physician) tuberculosis TUBERCULOSIS Z11.1 Encounter for ENCOUNTER FOR Problem 05/09/2017 [facility] ( Ammir screening for SCREENING FOR 12:00:00 AM Charlse respiratory RESPIRATORY EDT Physician) tuberculosis TUBERCULOSIS Z11.1 Encounter for ENCOUNTER FOR Problem 05/09/2017 [facility] ( Ammir screening for SCREENING FOR 12:00:00 AM Charles respiratory RESPIRATORY EDT Physician) tuberculosis TUBERCULOSIS Z11.1 Encounter for ENCOUNTER FOR Problem 05/09/2017 [facility] ( Ammir screening for SCREENING FOR 12:00:00 AM Charles respiratory RESPIRATORY EDT Physician) tuberculosis TUBERCULOSIS Z11.1 Encounter for ENCOUNTER FOR Problem 05/09/2017 [facility] ( Ammir screening for SCREENING FOR 12:00:00 AM Charles respiratory RESPIRATORY EDT Physician) tuberculosis TUBERCULOSIS K25.3 Acute gastric ulcer ACUTE GASTRIC ULCER Problem 017 [facility] (Ammir without hemorrhage WITHOUT HEMORRHAGE 12:00:00 AM Charles or perforation OR PERFORATION EDT Physic yazan) K25.7 Chronic gastric CHRONIC GASTRIC Problem 12/27/2016 [facility] EN (Ammir ulcer without ULCER WITHOUT 12:00:00 AM Charles hemorrhage or HEMORRHAGE OR EDT Physicia n) perforation PERFORATION D62 Acute ACUTE Problem 12/27/2016 [facility] (Ammir posthemorrhagic POSTHEMORRHAGIC 12:00:00 AM Rab alex anemia ANEMIA EDT Physician) D64.9 Anemia, unspecified ANEMIA, UNSPECIFIED Problem 017 [facility] (Ammir 12:00:00 AM Charles EDT Physician) E78.5 Hyperlipidemia, HYPERLIPIDEMIA, Problem 12/27/2016 [facility] EN (Ammir unspecified UNSPECIFIED 12:00:00 AM Charles EDT Physician) K25.3 Acute gastric ulcer ACUTE GASTRIC ULCER Problem 017 [facility] (Ammir without hemorrhage WITHOUT HEMORRHAGE 12:00:00 AM Charles or perforation OR PERFORATION EDT Physic yazan) K25.7 Chronic gastric CHRONIC GASTRIC Problem 12/27/2016 [facility] EN (Ammir ulcer without ULCER WITHOUT 12:00:00 AM Charles hemorrhage or HEMORRHAGE OR EDT Physicia n) perforation PERFORATION D62 Acute ACUTE Problem 12/27/2016 [facility] (Ammir posthemorrhagic POSTHEMORRHAGIC 12:00:00 AM Rab alex anemia ANEMIA EDT Physician) D64.9 Anemia, unspecified ANEMIA, UNSPECIFIED Problem 017 [facility] (Ammir 12:00:00 AM Charles EDT Physician) E78.5 Hyperlipidemia, HYPERLIPIDEMIA, Problem 12/27/2016 [facility] EN (Ammir unspecified UNSPECIFIED 12:00:00 AM Charles EDT Physician) K25.3 Acute gastric ulcer ACUTE GASTRIC ULCER Problem 017 [facility] (Ammir without hemorrhage WITHOUT HEMORRHAGE 12:00:00 AM Charles or perforation OR PERFORATION EDT Physic yazna) K25.7 Chronic gastric CHRONIC GASTRIC Problem 12/27/2016 [facility] EN (Ammir ulcer without ULCER WITHOUT 12:00:00 AM Charles hemorrhage or HEMORRHAGE OR EDT Physicia n) perforation PERFORATION D62 Acute ACUTE Problem 12/27/2016 [facility] (Ammir posthemorrhagic POSTHEMORRHAGIC 12:00:00 AM Rab alex anemia ANEMIA EDT Physician) D64.9 Anemia, unspecified ANEMIA, UNSPECIFIED Problem 017 [facility] (Ammir 12:00:00 AM Charles EDT Physician) E78.5 Hyperlipidemia, HYPERLIPIDEMIA, Problem 12/27/2016 [facility] EN (Ammir unspecified UNSPECIFIED 12:00:00 AM Charles EDT Physician) K25.3 Acute gastric ulcer ACUTE GASTRIC ULCER Problem 017 [facility] (Ammir without hemorrhage WITHOUT HEMORRHAGE 12:00:00 AM Charles or perforation OR PERFORATION EDT Physic yazan) K25.7 Chronic gastric CHRONIC GASTRIC Problem 12/27/2016 [facility] EN (Ammir ulcer without ULCER WITHOUT 12:00:00 AM Charles hemorrhage or HEMORRHAGE OR EDT Physicia n) perforation PERFORATION D62 Acute ACUTE Problem 12/27/2016 [facility] (Ammir posthemorrhagic POSTHEMORRHAGIC 12:00:00 AM Rab alex anemia ANEMIA EDT Physician) D64.9 Anemia, unspecified ANEMIA, UNSPECIFIED Problem 017 [facility] (Ammir 12:00:00 AM Charles EDT Physician) E78.5 Hyperlipidemia, HYPERLIPIDEMIA, Problem 12/27/2016 [facility] EN (Ammir unspecified UNSPECIFIED 12:00:00 AM Charles EDT Physician) K25.3 Acute gastric ulcer ACUTE GASTRIC ULCER Problem 017 [facility] (Ammir without hemorrhage WITHOUT HEMORRHAGE 12:00:00 AM Charles or perforation OR PERFORATION EDT Physic yazan) K25.7 Chronic gastric CHRONIC GASTRIC Problem 12/27/2016 [facility] EN (Ammir ulcer without ULCER WITHOUT 12:00:00 AM Charles hemorrhage or HEMORRHAGE OR EDT Physicia n) perforation PERFORATION D62 Acute ACUTE Problem 12/27/2016 [facility] (Ammir posthemorrhagic POSTHEMORRHAGIC 12:00:00 AM Rab alex anemia ANEMIA EDT Physician) D64.9 Anemia, unspecified ANEMIA, UNSPECIFIED Problem 017 [facility] (Ammir 12:00:00 AM Charles EDT Physician) E78.5 Hyperlipidemia, HYPERLIPIDEMIA, Problem 12/27/2016 [facility] EN (Ammir unspecified UNSPECIFIED 12:00:00 AM Charles EDT Physician) R60.0 Localized edema LOCALIZED EDEMA Problem 12/01/2016 [facility] EN (Ammir 12:00:00 AM Charles EDT Physician) M94.0 Chondrocostal CHONDROCOSTAL Problem 12/01/2016 [facility] ( Ammir junction syndrome JUNCTION SYNDROME 12:00:00 AM Charles [Tietze] [TIETZE] EDT Physician) R60.0 Localized edema LOCALIZED EDEMA Problem 12/01/2016 MEDG EN (Ammir 12:00:00 AM Charles EDT Physician) M94.0 Chondrocostal CHONDROCOSTAL Problem 12/01/2016 [facility] ( Ammir junction syndrome JUNCTION SYNDROME 12:00:00 AM Charles [Tietze] [TIETZE] EDT Physician) R60.0 Localized edema LOCALIZED EDEMA Problem 12/01/2016 MED[facility] EN (Ammir 12:00:00 AM Charles EDT Physician) M94.0 Chondrocostal CHONDROCOSTAL Problem 12/01/2016 [facility] ( Ammir junction syndrome JUNCTION SYNDROME 12:00:00 AM Charles [Tietze] [TIETZE] EDT Physician) R60.0 Localized edema LOCALIZED EDEMA Problem 12/01/2016 MED[facility] EN (Ammir 12:00:00 AM Charles EDT Physician) M94.0 Chondrocostal CHONDROCOSTAL Problem 12/01/2016 [facility] ( Ammir junction syndrome JUNCTION SYNDROME 12:00:00 AM Charles [Tietze] [TIETZE] EDT Physician) R60.0 Localized edema LOCALIZED EDEMA Problem 12/01/2016 [facility] EN (Ammir 12:00:00 AM Charles EDT Physician) M94.0 Chondrocostal CHONDROCOSTAL Problem 12/01/2016 [facility] ( Ammir junction syndrome JUNCTION SYNDROME 12:00:00 AM Charles [Tietze] [TIETZE] EDT Physician) G43.909 Migraine, MIGRAINE, Problem 11/17/2016 [facility] (Ammir unspecified, not UNSPECIFIED, NOT 12:00:00 AM R kyleigh intractable, without INTRACTABLE, WITHOUT EDT Physician) status migrainosus STATUS MIGRAINOSUS G43.909 Migraine, MIGRAINE, Problem 11/17/2016 [facility] (Ammir unspecified, not UNSPECIFIED, NOT 12:00:00 AM R kyleigh intractable, without INTRACTABLE, WITHOUT EDT Physician) status migrainosus STATUS MIGRAINOSUS G43.909 Migraine, MIGRAINE, Problem 11/17/2016 [facility] (Ammir unspecified, not UNSPECIFIED, NOT 12:00:00 AM R kyleigh intractable, without INTRACTABLE, WITHOUT EDT Physician) status migrainosus STATUS MIGRAINOSUS G43.909 Migraine, MIGRAINE, Problem 11/17/2016 [facility] (Ammir unspecified, not UNSPECIFIED, NOT 12:00:00 AM R kyleigh intractable, without INTRACTABLE, WITHOUT EDT Physician) status migrainosus STATUS MIGRAINOSUS G43.909 Migraine, MIGRAINE, Problem 11/17/2016 [facility] (Ammir unspecified, not UNSPECIFIED, NOT 12:00:00 AM R kyleigh intractable, without INTRACTABLE, WITHOUT EDT Physician) status migrainosus STATUS MIGRAINOSUS R07.89 Other chest pain OTHER CHEST PAIN Problem 10/06/2016 ME DGEN (Ammir 12:00:00 AM Charles EDT Physician) K21.9 Gastro-esophageal GASTRO-ESOPHAGEAL Problem 10/06/2016 [facility] (Ammir reflux disease REFLUX DISEASE 12:00:00 AM Rabad i without esophagitis WITHOUT ESOPHAGITIS EDT Physician) R07.89 Other chest pain OTHER CHEST PAIN Problem 10/06/2016 ME DGEN (Ammir 12:00:00 AM Charles EDT Physician) K21.9 Gastro-esophageal GASTRO-ESOPHAGEAL Problem 10/06/2016 [facility] (Ammir reflux disease REFLUX DISEASE 12:00:00 AM Rabad i without esophagitis WITHOUT ESOPHAGITIS EDT Physician) R07.89 Other chest pain OTHER CHEST PAIN Problem 10/06/2016 ME DGEN (Ammir 12:00:00 AM Charles EDT Physician) K21.9 Gastro-esophageal GASTRO-ESOPHAGEAL Problem 10/06/2016 [facility] (Ammir reflux disease REFLUX DISEASE 12:00:00 AM Rabad i without esophagitis WITHOUT ESOPHAGITIS EDT Physician) R07.89 Other chest pain OTHER CHEST PAIN Problem 10/06/2016 ME DGEN (Ammir 12:00:00 AM Charles EDT Physician) K21.9 Gastro-esophageal GASTRO-ESOPHAGEAL Problem 10/06/2016 [facility] (Ammir reflux disease REFLUX DISEASE 12:00:00 AM Rabad i without esophagitis WITHOUT ESOPHAGITIS EDT Physician) R07.89 Other chest pain OTHER CHEST PAIN Problem 10/06/2016 ME DGEN (Ammir 12:00:00 AM Charles EDT Physician) K21.9 Gastro-esophageal GASTRO-ESOPHAGEAL Problem 10/06/2016 [facility] (Ammir reflux disease REFLUX DISEASE 12:00:00 AM Rabad i without esophagitis WITHOUT ESOPHAGITIS EDT Physician) J30.9 Allergic rhinitis, ALLERGIC RHINITIS, Problem 7 [facility] (Ammir unspecified UNSPECIFIED 12:00:00 AM Charles EDT Physician) K92.1 Melena MELENA Problem 06/28/2016 [facility] (Ammir 12:00:00 AM Charles EDT Physician) J30.9 Allergic rhinitis, ALLERGIC RHINITIS, Problem 7 [facility] (Ammir unspecified UNSPECIFIED 12:00:00 AM Charles EDT Physician) K92.1 Melena MELENA Problem 06/28/2016 [facility] (Ammir 12:00:00 AM Charles EDT Physician) J30.9 Allergic rhinitis, ALLERGIC RHINITIS, Problem 7 [facility] (Ammir unspecified UNSPECIFIED 12:00:00 AM Charles EDT Physician) K92.1 Melena MELENA Problem 06/28/2016 [facility] (Ammir 12:00:00 AM Charles EDT Physician) J30.9 Allergic rhinitis, ALLERGIC RHINITIS, Problem 7 [facility] (Ammir unspecified UNSPECIFIED 12:00:00 AM Charles EDT Physician) K92.1 Melena MELENA Problem 06/28/2016 [facility] (Ammir 12:00:00 AM Charles EDT Physician) J30.9 Allergic rhinitis, ALLERGIC RHINITIS, Problem 7 [facility] (Ammir unspecified UNSPECIFIED 12:00:00 AM Charles EDT Physician) K92.1 Melena MELENA Problem 06/28/2016 [facility] (Ammir 12:00:00 AM Charles EDT Physician) M06.9 Rheumatoid RHEUMATOID Problem 04/21/2016 [facility] (Ammir arthritis, ARTHRITIS, 12:00:00 AM Charles unspecified UNSPECIFIED EST Physician) D50.8 Other iron OTHER IRON Problem 04/21/2016 [facility] (Ammir deficiency anemias DEFICIENCY ANEMIAS 12:00:00 AM Charles EST Physician) E55.9 Vitamin D VITAMIN D Problem 04/21/2016 [facility] (Ammir deficiency, DEFICIENCY, 12:00:00 AM Charles unspecified UNSPECIFIED EST Physician) N77.1 Vaginitis, vulvitis VAGINITIS, VULVITIS Problem 017 [facility] (Ammir and vulvovaginitis AND VULVOVAGINITIS 12:00:00 AM Charles in diseases IN DISEASES EST Physician) classified elsewhere CLASSIFIED ELSEWHERE M06.9 Rheumatoid RHEUMATOID Problem 04/21/2016 [facility] (Ammir arthritis, ARTHRITIS, 12:00:00 AM Charles unspecified UNSPECIFIED EST Physician) D50.8 Other iron OTHER IRON Problem 04/21/2016 [facility] (Ammir deficiency anemias DEFICIENCY ANEMIAS 12:00:00 AM Charles EST Physician) E55.9 Vitamin D VITAMIN D Problem 04/21/2016 [facility] (Ammir deficiency, DEFICIENCY, 12:00:00 AM Charles unspecified UNSPECIFIED EST Physician) N77.1 Vaginitis, vulvitis VAGINITIS, VULVITIS Problem 017 [facility] (Ammir and vulvovaginitis AND VULVOVAGINITIS 12:00:00 AM Charles in diseases IN DISEASES EST Physician) classified elsewhere CLASSIFIED ELSEWHERE M06.9 Rheumatoid RHEUMATOID Problem 04/21/2016 [facility] (Ammir arthritis, ARTHRITIS, 12:00:00 AM Charles unspecified UNSPECIFIED EST Physician) D50.8 Other iron OTHER IRON Problem 04/21/2016 [facility] (Ammir deficiency anemias DEFICIENCY ANEMIAS 12:00:00 AM Charles EST Physician) E55.9 Vitamin D VITAMIN D Problem 04/21/2016 [facility] (Ammir deficiency, DEFICIENCY, 12:00:00 AM Charles unspecified UNSPECIFIED EST Physician) N77.1 Vaginitis, vulvitis VAGINITIS, VULVITIS Problem 017 [facility] (Ammir and vulvovaginitis AND VULVOVAGINITIS 12:00:00 AM Charles in diseases IN DISEASES EST Physician) classified elsewhere CLASSIFIED ELSEWHERE M06.9 Rheumatoid RHEUMATOID Problem 04/21/2016 [facility] (Ammir arthritis, ARTHRITIS, 12:00:00 AM Charlse unspecified UNSPECIFIED EST Physician) D50.8 Other iron OTHER IRON Problem 04/21/2016 [facility] (Ammir deficiency anemias DEFICIENCY ANEMIAS 12:00:00 AM Charles EST Physician) E55.9 Vitamin D VITAMIN D Problem 04/21/2016 [facility] (Ammir deficiency, DEFICIENCY, 12:00:00 AM Charles unspecified UNSPECIFIED EST Physician) N77.1 Vaginitis, vulvitis VAGINITIS, VULVITIS Problem 017 MED[facility] (Ammir and vulvovaginitis AND VULVOVAGINITIS 12:00:00 AM Charles in diseases IN DISEASES EST Physician) classified elsewhere CLASSIFIED ELSEWHERE M06.9 Rheumatoid RHEUMATOID Problem 04/21/2016 [facility] (Ammir arthritis, ARTHRITIS, 12:00:00 AM Charles unspecified UNSPECIFIED EST Physician) D50.8 Other iron OTHER IRON Problem 04/21/2016 [facility] (Ammir deficiency anemias DEFICIENCY ANEMIAS 12:00:00 AM Charles EST Physician) E55.9 Vitamin D VITAMIN D Problem 04/21/2016 [facility] (Ammir deficiency, DEFICIENCY, 12:00:00 AM Charles unspecified UNSPECIFIED EST Physician) N77.1 Vaginitis, vulvitis VAGINITIS, VULVITIS Problem 017 [facility] (Ammir and vulvovaginitis AND VULVOVAGINITIS 12:00:00 AM Charles in diseases IN DISEASES EST Physician) classified elsewhere CLASSIFIED ELSEWHERE Z00.00 Encounter for ENCOUNTER FOR Problem 04/19/2016 MED[facility] ( Ammir general adult GENERAL ADULT 12:00:00 AM Charles medical examination MEDICAL EXAMINATION EST Physician) without abnormal WITHOUT ABNORMAL findings FINDINGS D25.9 Leiomyoma of uterus, LEIOMYOMA OF UTERUS, Problem 04/19 MED[facility] (Ammir unspecified UNSPECIFIED 12:00:00 AM Charles EST Physician) G43.019 Migraine without MIGRAINE WITHOUT Problem 04/19/2016 ME DGEN (Ammir aura, intractable, AURA, INTRACTABLE, 12:00:00 AM Charles without status WITHOUT STATUS EST Physic yazan) migrainosus MIGRAINOSUS E66.9 Obesity, unspecified OBESITY, UNSPECIFIED Problem 04/19 [facility] (Ammir 12:00:00 AM Charles EST Physician) Z00.00 Encounter for ENCOUNTER FOR Problem 04/19/2016 [facility] ( Ammir general adult GENERAL ADULT 12:00:00 AM Charles medical examination MEDICAL EXAMINATION EST Physician) without abnormal WITHOUT ABNORMAL findings FINDINGS D25.9 Leiomyoma of uterus, LEIOMYOMA OF UTERUS, Problem 04/19 MED[facility] (Ammir unspecified UNSPECIFIED 12:00:00 AM Charles EST Physician) G43.019 Migraine without MIGRAINE WITHOUT Problem 04/19/2016 ME DGEN (Ammir aura, intractable, AURA, INTRACTABLE, 12:00:00 AM Charles without status WITHOUT STATUS EST Physic yazan) migrainosus MIGRAINOSUS E66.9 Obesity, unspecified OBESITY, UNSPECIFIED Problem 04/19 MED[facility] (Ammir 12:00:00 AM Charles EST Physician) Z00.00 Encounter for ENCOUNTER FOR Problem 04/19/2016 [facility] 12:00:00 AM Charles medical examination MEDICAL EXAMINATION EST Physician) without abnormal WITHOUT ABNORMAL findings FINDINGS D25.9 Leiomyoma of uterus, LEIOMYOMA OF UTERUS, Problem 04/19 MEDGEN (Ammir unspecified UNSPECIFIED 12:00:00 AM Charles EST Physician) G43.019 Migraine without MIGRAINE WITHOUT Problem 04/19/2016 ME DGEN (Ammir aura, intractable, AURA, INTRACTABLE, 12:00:00 AM Charles without status WITHOUT STATUS EST Physic yazan) migrainosus MIGRAINOSUS E66.9 Obesity, unspecified OBESITY, UNSPECIFIED Problem 04/19 MED[facility] (Ammir 12:00:00 AM Charles EST Physician) Z00.00 Encounter for ENCOUNTER FOR Problem 04/19/2016 MED[facility] ( Ammir general adult GENERAL ADULT 12:00:00 AM Charles medical examination MEDICAL EXAMINATION EST Physician) without abnormal WITHOUT ABNORMAL findings FINDINGS D25.9 Leiomyoma of uterus, LEIOMYOMA OF UTERUS, Problem 04/19 MED[facility] (Ammir unspecified UNSPECIFIED 12:00:00 AM Charles EST Physician) G43.019 Migraine without MIGRAINE WITHOUT Problem 04/19/2016 ME DGEN (Ammir aura, intractable, AURA, INTRACTABLE, 12:00:00 AM Charles without status WITHOUT STATUS EST Physic yazan) migrainosus MIGRAINOSUS E66.9 Obesity, unspecified OBESITY, UNSPECIFIED Problem 04/19 MED[facility] (Ammir 12:00:00 AM Charles EST Physician) Z00.00 Encounter for ENCOUNTER FOR Problem 04/19/2016 MED[facility] ( Ammir general adult GENERAL ADULT 12:00:00 AM Charles medical examination MEDICAL EXAMINATION EST Physician) without abnormal WITHOUT ABNORMAL findings FINDINGS D25.9 Leiomyoma of uterus, LEIOMYOMA OF UTERUS, Problem 04/19 MED[facility] (Ammir unspecified UNSPECIFIED 12:00:00 AM Charles EST Physician) G43.019 Migraine without MIGRAINE WITHOUT Problem 04/19/2016 ME D[facility] (Ammir aura, intractable, AURA, INTRACTABLE, 12:00:00 AM Charles without status WITHOUT STATUS EST Physic yazan) migrainosus MIGRAINOSUS E66.9 Obesity, unspecified OBESITY, UNSPECIFIED Problem 04/19 MED[facility] (Ammir 12:00:00 AM Charles EST Physician) R00.2 Palpitations PALPITATIONS Diagnosis 11/15/2019 [facility] r 06:00:00 AM [facility] EDT Care [employer] R07.9 Chest pain, CHEST PAIN, Diagnosis 11/15/2019 [place] unspecified UNSPECIFIED 06:00:00 AM [facility] EDT Care [employer] I31.9 Disease of DISEASE OF Diagnosis 11/15/2019 [place] pericardium, PERICARDIUM, 06:00:00 AM [facility] unspecified UNSPECIFIED EDT [employer] I10 Essential (primary) ESSENTIAL (PRIMARY) Diagnosis 020 [facility] hypertension HYPERTENSION 06:42:00 AM Medical C enter EDT G43.909 Migraine, MIGRAINE, UNSP, NOT Diagnosis 10/30/2019 [place] unspecified, not INTRACTABLE, WITHOUT 06:42:00 AM [facility] intractable, without STATUS MIGRAINOSUS EDT status migrainosus R51 Headache HEADACHE Diagnosis 10/30/2019 [place] 06:42:00 AM [facility] EDT Z20.828 Contact with and CONTACT W AND Diagnosis 10/22/2019 [facility] rangel (suspected) exposure EXPOSURE TO OTH 11:01:00 P [facility] to other viral VIRAL COMMUNICABLE EDT [employer] DISEASES [employer] diseases G43.909 Migraine, MIGRAINE, UNSP, NOT Diagnosis 10/22/2019 [facility] multani unspecified, not INTRACTABLE, WITHOUT 11:01:00 PM [facility] intractable, without STATUS MIGRAINOSUS EDT Care status migrainosus Corpor ation E78.00 Pure PURE Diagnosis 10/22/2019 [place] hypercholesterolemia HYPERCHOLESTEROLEMIA 11:01 :00 PM [facility] , unspecified , UNSPECIFIED T [facility] [employer] Z53.21 Procedure and PROC/TRTMT NOT CRD Diagnosis 03/05/2019 [place] treatment not OUT D/T PT LV BEF 01:17:00 PM [facility] carried out due to SEEN BY [facility] patient leaving [facility] on prior to being seen by health care provider I72.9 Aneurysm of ANEURYSM OF Diagnosis 01/15/2019 [place] unspecified site UNSPECIFIED SITE 11:49:00 AM [facility] [employer] R51 Headache HEADACHE Diagnosis 01/15/2019 [place] 11:49:00 AM [facility] E78.5 Hyperlipidemia, HYPERLIPIDEMIA, Diagnosis 01/12/2019 [place] unspecified UNSPECIFIED 06:01:[address] EST M25.562 Pain in left knee PAIN IN LEFT KNEE Diagnosis 11/05/2018 [place] 06:38:00 PM [facility] EDT M25.569 Pain in unspecified PAIN IN UNSPECIFIED Diagnosis 019 [place] knee KNEE 06:38:00 PM [facility] EDT R07.89 Other chest pain OTHER CHEST PAIN Diagnosis 06/29/2018 [facility] R07.2 Precordial pain PRECORDIAL PAIN Diagnosis 06/29/2018 [place] 05:23:00 PM [facility] R40.241 Natasha coma scale NATASHA COMA SCALE Diagnosis 9 [place] 0 score 13-15, SCORE 13-15, 08:28:00 PM Medical C enter unspecified time UNSPECIFIED TIME EST Surgeries/Procedures Procedure Description Date Indications Data Source(s) Documentation of current 11/13/2019 MED [facility] (Ammir Charles medications (procedure) 12:00:00 AM EDT P hysician) Documentation of current 11/13/2019 [facility] (Ammir Charles medications (procedure) 12:00:00 AM EDT P hysician) Documentation of current 10/14/2019 MED [facility] (Ammir Charles medications (procedure) 12:00:00 AM EDT P hysician) Documentation of current 10/14/2019 MED [facility] ([facility] medications (procedure) 12:00:00 AM EDT P hysician) Documentation of current 10/14/2019 MED GEN (Amm[facility] medications (procedure) 12:00:00 AM EDT P hysician) Documentation of current 10/14/2019 MED GEN (Amm[facility] medications (procedure) 12:00:00 AM EDT P hysician) Documentation of current 10/14/2019 MED GEN (Amm[facility] medications (procedure) 12:00:00 AM EDT P hysician) Documentation of current 10/14/2019 MED GEN (Amm[facility] medications (procedure) 12:00:00 AM EDT P hysician) Documentation of current 10/14/2019 MED GEN (Amm[facility] medications (procedure) 12:00:00 AM EDT P hysician) Documentation of current 10/14/2019 MED GEN (Amm[facility] medications (procedure) 12:00:00 AM EDT P hysician) Documentation of current 10/14/2019 MED GEN (Amm[facility] medications (procedure) 12:00:00 AM EDT P hysician) Documentation of current 10/14/2019 MED GEN (Amm[facility] medications (procedure) 12:00:00 AM EDT P hysician) Documentation of current 10/14/2019 MED GEN (Amm[facility] medications (procedure) 12:00:00 AM EDT P hysician) Documentation of current 10/14/2019 MED GEN (Amm[facility] medications (procedure) 12:00:00 AM EDT P hysician) Documentation of current 05/13/2019 MED GEN (Amm[facility] medications (procedure) 12:00:00 AM EDT P hysician) Medication Reconciliation 05/13/2019 ME DGEN (Ammir Charles (procedure) 12:00:00 AM EDT Physician) Documentation of current 05/13/2019 MED GEN (Amm[facility] medications (procedure) 12:00:00 AM EDT P hysician) Documentation of current 05/13/2019 MED GEN (Amm[facility] medications (procedure) 12:00:00 AM EDT P hysician) Documentation of current 05/13/2019 MED GEN (Amm[facility] medications (procedure) 12:00:00 AM EDT P hysician) Documentation of current 05/13/2019 MED GEN (Amm[facility] medications (procedure) 12:00:00 AM EDT P hysician) Documentation of current 05/13/2019 MED GEN (Amm[facility] medications (procedure) 12:00:00 AM EDT P hysician) Medication Reconciliation 05/13/2019 ME DGEN (Ammir Charles (procedure) 12:00:00 AM EDT Physician) Documentation of current 05/13/2019 MED GEN (Amm[facility] medications (procedure) 12:00:00 AM EDT P hysician) Documentation of current 05/13/2019 MED GEN (Amm[facility] medications (procedure) 12:00:00 AM EDT P hysician) Documentation of current 05/13/2019 MED GEN (Amm[facility] medications (procedure) 12:00:00 AM EDT P hysician) Documentation of current 05/13/2019 MED GEN (Amm[facility] medications (procedure) 12:00:00 AM EDT P hysician) Documentation of current 05/13/2019 MED GEN (Amm[facility] medications (procedure) 12:00:00 AM EDT P hysician) Medication Reconciliation 05/13/2019 ME DGEN (Ammir Charles (procedure) 12:00:00 AM EDT Physician) Documentation of current 05/13/2019 MED GEN (Amm[facility] medications (procedure) 12:00:00 AM EDT P hysician) Documentation of current 05/13/2019 MED GEN (Amm[facility] medications (procedure) 12:00:00 AM EDT P hysician) Documentation of current 05/13/2019 MED GEN (Amm[facility] medications (procedure) 12:00:00 AM EDT P hysician) Documentation of current 05/13/2019 MED GEN (Amm[facility] medications (procedure) 12:00:00 AM EDT P hysician) Documentation of current 05/13/2019 MED GEN (Amm[facility] medications (procedure) 12:00:00 AM EDT P hysician) Medication Reconciliation 05/13/2019 [place] DGEN (Ammir Charles (procedure) 12:00:00 AM EDT Physician) Documentation of current 05/13/2019 MED GEN (Amm[facility] medications (procedure) 12:00:00 AM EDT P hysician) Documentation of current 05/13/2019 MED GEN (Amm[facility] medications (procedure) 12:00:00 AM EDT P hysician) Documentation of current 05/13/2019 MED GEN (Amm[facility] medications (procedure) 12:00:00 AM EDT P hysician) Documentation of current 05/13/2019 MED GEN (Amm[facility] medications (procedure) 12:00:00 AM EDT P hysician) Documentation of current 05/06/2019 MED GEN (Amm[facility] medications (procedure) 12:00:00 AM EDT P hysician) Documentation of current 05/06/2019 MED GEN (Amm[facility] medications (procedure) 12:00:00 AM EDT P hysician) Documentation of current 05/06/2019 MED GEN (Amm[facility] medications (procedure) 12:00:00 AM EDT P hysician) Documentation of current 05/06/2019 MED GEN (Amm[facility] medications (procedure) 12:00:00 AM EDT P hysician) Documentation of current 05/06/2019 MED GEN (Amm[facility] medications (procedure) 12:00:00 AM EDT P hysician) Documentation of current 05/06/2019 MED GEN (Amm[facility] medications (procedure) 12:00:00 AM EDT P hysician) Documentation of current 05/06/2019 MED GEN (Amm[facility] medications (procedure) 12:00:00 AM EDT P hysician) Documentation of current 05/06/2019 MED GEN (Amm[facility] medications (procedure) 12:00:00 AM EDT P hysician) Documentation of current 05/06/2019 MED GEN (Amm[facility] medications (procedure) 12:00:00 AM EDT P hysician) Documentation of current 05/06/2019 MED GEN (Amm[facility] medications (procedure) 12:00:00 AM EDT P hysician) Documentation of current 05/06/2019 MED GEN (Amm[facility] medications (procedure) 12:00:00 AM EDT P hysician) Documentation of current 05/06/2019 MED GEN (Amm[facility] medications (procedure) 12:00:00 AM EDT P hysician) Documentation of current 05/06/2019 MED GEN (Amm[facility] medications (procedure) 12:00:00 AM EDT P hysician) Documentation of current 05/06/2019 MED GEN (Amm[facility] medications (procedure) 12:00:00 AM EDT P hysician) Documentation of current 05/06/2019 MED GEN (Amm[facility] medications (procedure) 12:00:00 AM EDT P hysician) Documentation of current 05/06/2019 MED GEN (Amm[facility] medications (procedure) 12:00:00 AM EDT P hysician) Documentation of current 03/11/2019 MED GEN (Amm[facility] medications (procedure) 12:00:00 AM EST P hysician) Documentation of current 03/11/2019 MED GEN (Amm[facility] medications (procedure) 12:00:00 AM EST P hysician) Documentation of current 03/11/2019 MED GEN (Amm[facility] medications (procedure) 12:00:00 AM EST P hysician) Documentation of current 03/11/2019 MED GEN (Amm[facility] medications (procedure) 12:00:00 AM EST P hysician) Documentation of current 03/11/2019 MED GEN (Amm[facility] medications (procedure) 12:00:00 AM EST P hysician) Documentation of current 03/11/2019 MED GEN (Amm[facility] medications (procedure) 12:00:00 AM EST P hysician) Documentation of current 03/11/2019 MED GEN (Amm[facility] medications (procedure) 12:00:00 AM EST P hysician) Documentation of current 03/11/2019 MED GEN (Amm[facility] medications (procedure) 12:00:00 AM EST P hysician) Documentation of current 03/11/2019 MED GEN (Amm[facility] medications (procedure) 12:00:00 AM EST P hysician) Documentation of current 03/11/2019 MED GEN (Amm[facility] medications (procedure) 12:00:00 AM EST P hysician) Documentation of current 03/11/2019 MED GEN (Amm[facility] medications (procedure) 12:00:00 AM EST P hysician) Documentation of current 03/11/2019 MED GEN (Amm[facility] medications (procedure) 12:00:00 AM EST P hysician) Documentation of current 03/11/2019 MED GEN (Amm[facility] medications (procedure) 12:00:00 AM EST P hysician) Documentation of current 03/11/2019 MED GEN (Amm[facility] medications (procedure) 12:00:00 AM EST P hysician) Documentation of current 03/11/2019 MED GEN (Amm[facility] medications (procedure) 12:00:00 AM EST P hysician) Documentation of current 03/11/2019 MED GEN (Amm[facility] medications (procedure) 12:00:00 AM EST P hysician) Documentation of current 03/11/2019 MED GEN (Amm[facility] medications (procedure) 12:00:00 AM EST P hysician) Documentation of current 03/11/2019 MED GEN (Amm[facility] medications (procedure) 12:00:00 AM EST P hysician) Documentation of current 03/11/2019 MED GEN (Amm[facility] medications (procedure) 12:00:00 AM EST P hysician) Documentation of current 01/07/2019 MED GEN (Amm[facility] medications (procedure) 12:00:00 AM EST P hysician) Documentation of current 01/07/2019 MED GEN (Amm[facility] medications (procedure) 12:00:00 AM EST P hysician) Documentation of current 01/07/2019 MED GEN (Amm[facility] medications (procedure) 12:00:00 AM EST P hysician) Documentation of current 01/07/2019 MED GEN (Amm[facility] medications (procedure) 12:00:00 AM EST P hysician) Documentation of current 01/07/2019 MED GEN (Amm[facility] medications (procedure) 12:00:00 AM EST P hysician) Documentation of current 01/07/2019 MED GEN (Amm[facility] medications (procedure) 12:00:00 AM EST P hysician) Documentation of current 01/07/2019 MED GEN (Amm[facility] medications (procedure) 12:00:00 AM EST P hysician) Documentation of current 01/07/2019 MED GEN (Amm[facility] medications (procedure) 12:00:00 AM EST P hysician) Documentation of current 01/07/2019 MED GEN (Amm[facility] medications (procedure) 12:00:00 AM EST P hysician) Documentation of current 01/07/2019 MED GEN (Amm[facility] medications (procedure) 12:00:00 AM EST P hysician) Documentation of current 01/07/2019 MED GEN (Amm[facility] medications (procedure) 12:00:00 AM EST P hysician) Documentation of current 01/07/2019 MED GEN (Amm[facility] medications (procedure) 12:00:00 AM EST P hysician) Documentation of current 01/07/2019 MED GEN (Amm[facility] medications (procedure) 12:00:00 AM EST P hysician) Documentation of current 01/07/2019 MED GEN (Amm[facility] medications (procedure) 12:00:00 AM EST P hysician) Documentation of current 01/07/2019 MED GEN (Amm[facility] medications (procedure) 12:00:00 AM EST P hysician) Documentation of current 01/07/2019 MED GEN (Amm[facility] medications (procedure) 12:00:00 AM EST P hysician) Documentation of current 01/07/2019 MED GEN (Amm[facility] medications (procedure) 12:00:00 AM EST P hysician) Documentation of current 01/07/2019 MED GEN (Amm[facility] medications (procedure) 12:00:00 AM EST P hysician) Documentation of current 01/07/2019 MED GEN (Amm[facility] medications (procedure) 12:00:00 AM EST P hysician) Documentation of current 01/07/2019 MED GEN (Amm[facility] medications (procedure) 12:00:00 AM EST P hysician) Documentation of current 01/07/2019 MED GEN (Amm[facility] medications (procedure) 12:00:00 AM EST P hysician) Documentation of current 01/07/2019 MED GEN (Amm[facility] medications (procedure) 12:00:00 AM EST P hysician) Documentation of current 01/07/2019 MED GEN (Amm[facility] medications (procedure) 12:00:00 AM EST P hysician) Documentation of current 01/07/2019 MED GEN (Amm[facility] medications (procedure) 12:00:00 AM EST P hysician) Documentation of current 01/07/2019 MED GEN (Amm[facility] medications (procedure) 12:00:00 AM EST P hysician) Documentation of current 01/07/2019 MED GEN (Amm[facility] medications (procedure) 12:00:00 AM EST P hysician) Documentation of current 01/07/2019 MED GEN (Amm[facility] medications (procedure) 12:00:00 AM EST P hysician) Documentation of current 01/07/2019 MED GEN (Amm[facility] medications (procedure) 12:00:00 AM EST P hysician) Documentation of current 01/07/2019 MED GEN (Amm[facility] medications (procedure) 12:00:00 AM EST P hysician) Documentation of current 01/07/2019 MED GEN (Amm[facility] medications (procedure) 12:00:00 AM EST P hysician) Documentation of current 01/07/2019 MED GEN (Amm[facility] medications (procedure) 12:00:00 AM EST P hysician) Documentation of current 01/07/2019 MED GEN (Amm[facility] medications (procedure) 12:00:00 AM EST P hysician) Documentation of current 01/07/2019 MED GEN (Amm[facility] medications (procedure) 12:00:00 AM EST P hysician) Documentation of current 01/07/2019 MED GEN (Amm[facility] medications (procedure) 12:00:00 AM EST P hysician) Documentation of current 01/07/2019 MED GEN (Amm[facility] medications (procedure) 12:00:00 AM EST P hysician) Documentation of current 01/07/2019 MED GEN (Amm[facility] medications (procedure) 12:00:00 AM EST P hysician) Documentation of current 01/07/2019 MED GEN (Amm[facility] medications (procedure) 12:00:00 AM EST P hysician) Documentation of current 01/07/2019 MED GEN (Amm[facility] medications (procedure) 12:00:00 AM EST P hysician) Documentation of current 01/07/2019 MED GEN (Amm[facility] medications (procedure) 12:00:00 AM EST P hysician) Documentation of current 06/12/2018 MED GEN (Amm[facility] medications (procedure) 12:00:00 AM EDT P hysician) Documentation of current 06/12/2018 MED GEN (Amm[facility] Charles medications (procedure) 12:00:00 AM EDT P hysician) Medication Reconciliation 06/12/2018 [place] DGEN (Ammir Charles (procedure) 12:00:00 AM EDT Physician) Documentation of current 06/12/2018 MED GEN (Ammir Charles medications (procedure) 12:00:00 AM EDT P hysician) Documentation of current 06/12/2018 MED GEN (Amm[facility] medications (procedure) 12:00:00 AM EDT P hysician) Documentation of current 06/12/2018 MED GEN (Amm[facility] medications (procedure) 12:00:00 AM EDT P hysician) Documentation of current 06/12/2018 MED GEN (Amm[facility] medications (procedure) 12:00:00 AM EDT P hysician) Documentation of current 06/12/2018 MED GEN (Ammir Charles medications (procedure) 12:00:00 AM EDT P hysician) Medication Reconciliation 06/12/2018 [place] DGEN (Ammir Charles (procedure) 12:00:00 AM EDT Physician) Documentation of current 06/12/2018 MED GEN (Ammir [facility] medications (procedure) 12:00:00 AM EDT P hysician) Documentation of current 06/12/2018 MED GEN (Amm[facility] medications (procedure) 12:00:00 AM EDT P hysician) Documentation of current 06/12/2018 MED GEN (Amm[facility] medications (procedure) 12:00:00 AM EDT P hysician) Documentation of current 06/12/2018 MED GEN (Amm[facility] medications (procedure) 12:00:00 AM EDT P hysician) Documentation of current 06/12/2018 MED GEN (Amm[facility] Charles medications (procedure) 12:00:00 AM EDT P hysician) Medication Reconciliation 06/12/2018 [place] [facility]GEN (Ammir Charles (procedure) 12:00:00 AM EDT Physician) Documentation of current 06/12/2018 MED GEN (Ammir Charles medications (procedure) 12:00:00 AM EDT P hysician) Documentation of current 06/12/2018 MED GEN (Amm[facility] medications (procedure) 12:00:00 AM EDT P hysician) Documentation of current 06/12/2018 MED GEN (Amm[facility] medications (procedure) 12:00:00 AM EDT P hysician) Documentation of current 06/12/2018 MED GEN (Amm[facility] Charles medications (procedure) 12:00:00 AM EDT P hysician) Documentation of current 06/12/2018 MED GEN (Ammir Charles medications (procedure) 12:00:00 AM EDT P hysician) Medication Reconciliation 06/12/2018 ME DGEN (Ammir Charles (procedure) 12:00:00 AM EDT Physician) Documentation of current 06/12/2018 MED GEN (Ammir Charles medications (procedure) 12:00:00 AM EDT P hysician) Documentation of current 06/12/2018 MED GEN (Ammir [facility] medications (procedure) 12:00:00 AM EDT P hysician) Documentation of current 06/12/2018 MED GEN (Amm[facility] medications (procedure) 12:00:00 AM EDT P hysician) Documentation of current 06/12/2018 MED GEN (Amm[facility] medications (procedure) 12:00:00 AM EDT P hysician) Medication Reconciliation 06/12/2018 [place] [facility]GEN (Ammir Charles (procedure) 12:00:00 AM EDT Physician) Documentation of current 06/12/2018 MED GEN (Ammir [facility] medications (procedure) 12:00:00 AM EDT P hysician) Documentation of current 06/12/2018 MED GEN (Amm[facility] medications (procedure) 12:00:00 AM EDT P hysician) Documentation of current 06/12/2018 MED GEN (Amm[facility] medications (procedure) 12:00:00 AM EDT P hysician) Documentation of current 04/11/2018 MED GEN (Amm[facility] medications (procedure) 12:00:00 AM EST P hysician) Medication Reconciliation 04/11/2018 [place] DGEN (Ammir Charles (procedure) 12:00:00 AM EST Physician) Documentation of current 04/11/2018 MED GEN (Amm[facility] medications (procedure) 12:00:00 AM EST P hysician) Documentation of current 04/11/2018 MED GEN (Amm[facility] Charles medications (procedure) 12:00:00 AM EST P hysician) Documentation of current 04/11/2018 MED GEN (Ammir [facility] medications (procedure) 12:00:00 AM EST P hysician) Documentation of current 04/11/2018 MED GEN (Amm[facility] Charles medications (procedure) 12:00:00 AM EST P hysician) Documentation of current 04/11/2018 MED GEN (Amm[facility] medications (procedure) 12:00:00 AM EST P hysician) Documentation of current 04/11/2018 MED GEN (Amm[facility] Charles medications (procedure) 12:00:00 AM EST P hysician) Medication Reconciliation 04/11/2018 [place] [facility] (Ammir Charles (procedure) 12:00:00 AM EST Physician) Documentation of current 04/11/2018 MED GEN (Amm[facility] Charles medications (procedure) 12:00:00 AM EST P hysician) Documentation of current 04/11/2018 MED GEN (Amm[facility] medications (procedure) 12:00:00 AM EST P hysician) Documentation of current 04/11/2018 MED GEN (Amm[facility] medications (procedure) 12:00:00 AM EST P hysician) Documentation of current 04/11/2018 MED GEN (Amm[facility] medications (procedure) 12:00:00 AM EST P hysician) Documentation of current 04/11/2018 MED GEN (Amm[facility] medications (procedure) 12:00:00 AM EST P hysician) Documentation of current 04/11/2018 MED GEN (Ammir [facility] medications (procedure) 12:00:00 AM EST P hysician) Medication Reconciliation 04/11/2018 [place] [facility]GEN (Ammir Charles (procedure) 12:00:00 AM EST Physician) Documentation of current 04/11/2018 MED GEN (Amm[facility] Charles medications (procedure) 12:00:00 AM EST P hysician) Documentation of current 04/11/2018 MED GEN (Ammir Charles medications (procedure) 12:00:00 AM EST P hysician) Documentation of current 04/11/2018 MED GEN (Amm[facility] medications (procedure) 12:00:00 AM EST P hysician) Documentation of current 04/11/2018 MED GEN (Amm[facility] medications (procedure) 12:00:00 AM EST P hysician) Documentation of current 04/11/2018 MED GEN (Amm[facility] Charles medications (procedure) 12:00:00 AM EST P hysician) Documentation of current 04/11/2018 MED GEN (Amm[facility] Charles medications (procedure) 12:00:00 AM EST P hysician) Medication Reconciliation 04/11/2018 [place] [facility]GEN (Ammir Charles (procedure) 12:00:00 AM EST Physician) Documentation of current 04/11/2018 MED GEN (Amm[facility] Charles medications (procedure) 12:00:00 AM EST P hysician) Documentation of current 04/11/2018 MED GEN (Amm[facility] Charles medications (procedure) 12:00:00 AM EST P hysician) Documentation of current 04/11/2018 MED GEN (Amm[facility] medications (procedure) 12:00:00 AM EST P hysician) Documentation of current 04/11/2018 MED GEN (Ammir Charles medications (procedure) 12:00:00 AM EST P hysician) Documentation of current 04/11/2018 MED GEN (Ammir Charles medications (procedure) 12:00:00 AM EST P hysician) Medication Reconciliation 04/11/2018 [place] [facility]GEN (Ammir Charles (procedure) 12:00:00 AM EST Physician) Documentation of current 04/11/2018 MED GEN (Ammir Charles medications (procedure) 12:00:00 AM EST P hysician) Documentation of current 04/11/2018 MED GEN (Ammir Charles medications (procedure) 12:00:00 AM EST P hysician) Documentation of current 04/11/2018 MED GEN (Amm[facility] Charles medications (procedure) 12:00:00 AM EST P hysician) Documentation of current 04/11/2018 MED GEN (Amm[facility] medications (procedure) 12:00:00 AM EST P hysician) Documentation of current 04/11/2018 MED GEN (Amm[facility] Charles medications (procedure) 12:00:00 AM EST P hysician) Documentation of current 01/24/2018 MED GEN (Ammir Charles medications (procedure) 12:00:00 AM EST P hysician) Documentation of current 01/24/2018 MED GEN (Amm[facility] Charles medications (procedure) 12:00:00 AM EST P hysician) Documentation of current 01/24/2018 MED GEN (Amm[facility] Charles medications (procedure) 12:00:00 AM EST P hysician) Documentation of current 01/24/2018 MED GEN (Ammir Charles medications (procedure) 12:00:00 AM EST P hysician) Documentation of current 01/24/2018 MED GEN (Amm[facility] Charles medications (procedure) 12:00:00 AM EST P hysician) Documentation of current 01/24/2018 MED GEN (Ammir Charles medications (procedure) 12:00:00 AM EST P hysician) Documentation of current 01/24/2018 MED GEN (Ammir Charles medications (procedure) 12:00:00 AM EST P hysician) Documentation of current 01/24/2018 MED GEN (Ammir Charles medications (procedure) 12:00:00 AM EST P hysician) Documentation of current 01/24/2018 MED GEN (Ammir Charles medications (procedure) 12:00:00 AM EST P hysician) Documentation of current 01/24/2018 MED GEN (Ammir Charles medications (procedure) 12:00:00 AM EST P hysician) Documentation of current 01/24/2018 MED GEN (Ammir Charles medications (procedure) 12:00:00 AM EST P hysician) Documentation of current 01/24/2018 MED GEN (Ammir Charles medications (procedure) 12:00:00 AM EST P hysician) Documentation of current 01/24/2018 MED GEN (Ammir Charles medications (procedure) 12:00:00 AM EST P hysician) Documentation of current 01/24/2018 MED GEN (Amm[facility] Charles medications (procedure) 12:00:00 AM EST P hysician) Documentation of current 01/24/2018 MED GEN (Amm[facility] Charles medications (procedure) 12:00:00 AM EST P hysician) Documentation of current 01/24/2018 MED GEN (Ammir Charles medications (procedure) 12:00:00 AM EST P hysician) Documentation of current 01/24/2018 MED GEN (Ammir Charles medications (procedure) 12:00:00 AM EST P hysician) Documentation of current 01/24/2018 MED GEN (Ammir Charles medications (procedure) 12:00:00 AM EST P hysician) Documentation of current 01/24/2018 MED GEN (Ammir Charles medications (procedure) 12:00:00 AM EST P hysician) Documentation of current 01/24/2018 MED GEN (Ammir Charles medications (procedure) 12:00:00 AM EST P hysician) Documentation of current 01/24/2018 MED GEN (Ammir Charles medications (procedure) 12:00:00 AM EST P hysician) Documentation of current 01/24/2018 MED GEN (Ammir Charles medications (procedure) 12:00:00 AM EST P hysician) Documentation of current 01/24/2018 MED GEN (Ammir Charles medications (procedure) 12:00:00 AM EST P hysician) Documentation of current 01/24/2018 MED GEN (Ammir Charles medications (procedure) 12:00:00 AM EST P hysician) Documentation of current 01/24/2018 MED GEN (Ammir Charles medications (procedure) 12:00:00 AM EST P hysician) Documentation of current 01/24/2018 MED GEN (Ammir Charles medications (procedure) 12:00:00 AM EST P hysician) Documentation of current 01/24/2018 MED GEN (Ammir Charles medications (procedure) 12:00:00 AM EST P hysician) Documentation of current 01/24/2018 MED GEN (Ammir Charles medications (procedure) 12:00:00 AM EST P hysician) Documentation of current 01/24/2018 MED GEN (Ammir Charles medications (procedure) 12:00:00 AM EST P hysician) Documentation of current 01/24/2018 MED GEN (Ammir Charles medications (procedure) 12:00:00 AM EST P hysician) Documentation of current 01/24/2018 MED GEN (Ammir Charles medications (procedure) 12:00:00 AM EST P hysician) Documentation of current 01/24/2018 MED GEN (Ammir Charles medications (procedure) 12:00:00 AM EST P hysician) Documentation of current 01/24/2018 MED GEN (Ammir Charles medications (procedure) 12:00:00 AM EST P hysician) Documentation of current 01/24/2018 MED GEN (Ammir Charles medications (procedure) 12:00:00 AM EST P hysician) Documentation of current 01/24/2018 MED GEN (Ammir Charles medications (procedure) 12:00:00 AM EST P hysician) Documentation of current 01/24/2018 MED GEN (Ammir Charles medications (procedure) 12:00:00 AM EST P hysician) Documentation of current 01/24/2018 MED GEN (Ammir Charles medications (procedure) 12:00:00 AM EST P hysician) Documentation of current 01/24/2018 MED GEN (Ammir Charles medications (procedure) 12:00:00 AM EST P hysician) Documentation of current 01/24/2018 MED GEN (Ammir Charles medications (procedure) 12:00:00 AM EST P hysician) Documentation of current 01/24/2018 MED GEN (Ammir Charles medications (procedure) 12:00:00 AM EST P hysician) Documentation of current 01/24/2018 MED GEN (Ammir Charles medications (procedure) 12:00:00 AM EST P hysician) Documentation of current 01/24/2018 MED GEN (Ammir Charles medications (procedure) 12:00:00 AM EST P hysician) Documentation of current 01/24/2018 MED GEN (Ammir Charles medications (procedure) 12:00:00 AM EST P hysician) Documentation of current 01/24/2018 MED GEN (Ammir Charles medications (procedure) 12:00:00 AM EST P hysician) Documentation of current 01/24/2018 MED GEN (Ammir Charles medications (procedure) 12:00:00 AM EST P hysician) Documentation of current 12/20/2017 MED GEN (Ammir Charles medications (procedure) 12:00:00 AM EDT P hysician) Documentation of current 12/20/2017 MED [facility] ([facility] medications (procedure) 12:00:00 AM EDT P hysician) Documentation of current 12/20/2017 MED GEN ([facility] medications (procedure) 12:00:00 AM EDT P hysician) Documentation of current 12/20/2017 MED GEN ([facility] medications (procedure) 12:00:00 AM EDT P hysician) Documentation of current 12/20/2017 MED GEN ([facility] medications (procedure) 12:00:00 AM EDT P hysician) Documentation of current 12/20/2017 MED GEN ([facility] medications (procedure) 12:00:00 AM EDT P hysician) Documentation of current 12/20/2017 MED GEN ([facility] medications (procedure) 12:00:00 AM EDT P hysician) Documentation of current 12/20/2017 MED GEN ([facility] medications (procedure) 12:00:00 AM EDT P hysician) Documentation of current 12/20/2017 MED GEN ([facility] medications (procedure) 12:00:00 AM EDT P hysician) Documentation of current 12/20/2017 MED GEN ([facility] medications (procedure) 12:00:00 AM EDT P hysician) Documentation of current 12/20/2017 MED GEN ([facility] medications (procedure) 12:00:00 AM EDT P hysician) Documentation of current 12/20/2017 MED GEN ([facility] medications (procedure) 12:00:00 AM EDT P hysician) Documentation of current 12/20/2017 MED GEN ([facility] medications (procedure) 12:00:00 AM EDT P hysician) Documentation of current 12/20/2017 MED GEN ([facility] medications (procedure) 12:00:00 AM EDT P hysician) Documentation of current 12/20/2017 MED GEN ([facility] medications (procedure) 12:00:00 AM EDT P hysician) Documentation of current 12/20/2017 MED GEN ([facility] medications (procedure) 12:00:00 AM EDT P hysician) Documentation of current 12/20/2017 MED GEN ([facility] medications (procedure) 12:00:00 AM EDT P hysician) Documentation of current 12/20/2017 MED GEN ([facility] medications (procedure) 12:00:00 AM EDT P hysician) Documentation of current 12/20/2017 MED GEN ([facility] medications (procedure) 12:00:00 AM EDT P hysician) Documentation of current 12/20/2017 MED GEN ([facility] medications (procedure) 12:00:00 AM EDT P hysician) Documentation of current 12/20/2017 MED GEN ([facility] medications (procedure) 12:00:00 AM EDT P hysician) Documentation of current 12/20/2017 MED GEN ([facility] medications (procedure) 12:00:00 AM EDT P hysician) Documentation of current 12/20/2017 MED GEN ([facility] medications (procedure) 12:00:00 AM EDT P hysician) Documentation of current 12/20/2017 MED GEN ([facility] medications (procedure) 12:00:00 AM EDT P hysician) Documentation of current 12/20/2017 MED GEN ([facility] medications (procedure) 12:00:00 AM EDT P hysician) Documentation of current 12/20/2017 MED GEN ([facility] medications (procedure) 12:00:00 AM EDT P hysician) Documentation of current 12/20/2017 MED GEN ([facility] medications (procedure) 12:00:00 AM EDT P hysician) Documentation of current 12/20/2017 MED GEN ([facility] medications (procedure) 12:00:00 AM EDT P hysician) Documentation of current 12/20/2017 MED GEN ([facility] medications (procedure) 12:00:00 AM EDT P hysician) Documentation of current 12/20/2017 MED GEN ([facility] medications (procedure) 12:00:00 AM EDT P hysician) Documentation of current 12/20/2017 MED GEN ([facility] medications (procedure) 12:00:00 AM EDT P hysician) Documentation of current 12/20/2017 MED GEN ([facility] medications (procedure) 12:00:00 AM EDT P hysician) Documentation of current 12/20/2017 MED GEN ([facility] medications (procedure) 12:00:00 AM EDT P hysician) Documentation of current 12/20/2017 MED GEN ([facility] medications (procedure) 12:00:00 AM EDT P hysician) Documentation of current 12/20/2017 MED GEN ([facility] medications (procedure) 12:00:00 AM EDT P hysician) Documentation of current 11/06/2017 MED GEN ([facility] medications (procedure) 12:00:00 AM EDT P hysician) Documentation of current 11/06/2017 MED GEN ([facility] medications (procedure) 12:00:00 AM EDT P hysician) Documentation of current 11/06/2017 MED GEN ([facility] medications (procedure) 12:00:00 AM EDT P hysician) Documentation of current 11/06/2017 MED GEN ([facility] medications (procedure) 12:00:00 AM EDT P hysician) Documentation of current 11/06/2017 MED GEN ([facility] medications (procedure) 12:00:00 AM EDT P hysician) Documentation of current 11/06/2017 MED GEN ([facility] medications (procedure) 12:00:00 AM EDT P hysician) Documentation of current 11/06/2017 MED GEN ([facility] medications (procedure) 12:00:00 AM EDT P hysician) Documentation of current 11/06/2017 MED GEN ([facility] medications (procedure) 12:00:00 AM EDT P hysician) Documentation of current 11/06/2017 MED GEN ([facility] medications (procedure) 12:00:00 AM EDT P hysician) Documentation of current 11/06/2017 MED GEN ([facility] medications (procedure) 12:00:00 AM EDT P hysician) Documentation of current 11/06/2017 MED GEN ([facility] medications (procedure) 12:00:00 AM EDT P hysician) Documentation of current 11/06/2017 MED GEN ([facility] medications (procedure) 12:00:00 AM EDT P hysician) Documentation of current 11/06/2017 MED GEN ([facility] medications (procedure) 12:00:00 AM EDT P hysician) Documentation of current 11/06/2017 MED GEN ([facility] medications (procedure) 12:00:00 AM EDT P hysician) Documentation of current 11/06/2017 MED GEN ([facility] medications (procedure) 12:00:00 AM EDT P hysician) Documentation of current 11/06/2017 MED GEN ([facility] medications (procedure) 12:00:00 AM EDT P hysician) Documentation of current 11/06/2017 MED GEN ([facility] medications (procedure) 12:00:00 AM EDT P hysician) Documentation of current 11/06/2017 MED GEN ([facility] medications (procedure) 12:00:00 AM EDT P hysician) Documentation of current 11/06/2017 MED GEN ([facility] medications (procedure) 12:00:00 AM EDT P hysician) Documentation of current 11/06/2017 MED GEN ([facility] medications (procedure) 12:00:00 AM EDT P hysician) Documentation of current 11/06/2017 MED GEN ([facility] medications (procedure) 12:00:00 AM EDT P hysician) Documentation of current 11/06/2017 MED GEN ([facility] medications (procedure) 12:00:00 AM EDT P hysician) Documentation of current 11/06/2017 MED GEN ([facility] medications (procedure) 12:00:00 AM EDT P hysician) Documentation of current 11/06/2017 MED GEN ([facility] medications (procedure) 12:00:00 AM EDT P hysician) Documentation of current 11/06/2017 MED GEN ([facility] medications (procedure) 12:00:00 AM EDT P hysician) Documentation of current 11/06/2017 MED GEN ([facility] medications (procedure) 12:00:00 AM EDT P hysician) Documentation of current 11/06/2017 MED GEN ([facility] medications (procedure) 12:00:00 AM EDT P hysician) Documentation of current 11/06/2017 MED GEN ([facility] medications (procedure) 12:00:00 AM EDT P hysician) Documentation of current 11/06/2017 MED GEN ([facility] medications (procedure) 12:00:00 AM EDT P hysician) Documentation of current 11/06/2017 MED GEN ([facility] medications (procedure) 12:00:00 AM EDT P hysician) Documentation of current 11/06/2017 MED GEN ([facility] medications (procedure) 12:00:00 AM EDT P hysician) Documentation of current 11/06/2017 MED GEN ([facility] medications (procedure) 12:00:00 AM EDT P hysician) Documentation of current 11/06/2017 MED GEN ([facility] medications (procedure) 12:00:00 AM EDT P hysician) Documentation of current 11/06/2017 MED GEN ([facility] medications (procedure) 12:00:00 AM EDT P hysician) Documentation of current 11/06/2017 MED GEN ([facility] medications (procedure) 12:00:00 AM EDT P hysician) Documentation of current 11/06/2017 MED GEN ([facility] medications (procedure) 12:00:00 AM EDT P hysician) Documentation of current 11/06/2017 MED GEN ([facility] medications (procedure) 12:00:00 AM EDT P hysician) Documentation of current 11/06/2017 MED GEN ([facility] medications (procedure) 12:00:00 AM EDT P hysician) Documentation of current 11/06/2017 MED GEN ([facility] medications (procedure) 12:00:00 AM EDT P hysician) Documentation of current 11/06/2017 MED GEN ([facility] medications (procedure) 12:00:00 AM EDT P hysician) Documentation of current 11/06/2017 MED GEN ([facility] medications (procedure) 12:00:00 AM EDT P hysician) Documentation of current 11/06/2017 MED GEN ([facility] medications (procedure) 12:00:00 AM EDT P hysician) Documentation of current 11/06/2017 MED GEN ([facility] medications (procedure) 12:00:00 AM EDT P hysician) Documentation of current 11/06/2017 MED GEN ([facility] medications (procedure) 12:00:00 AM EDT P hysician) Documentation of current 11/06/2017 MED GEN ([facility] medications (procedure) 12:00:00 AM EDT P hysician) Documentation of current 11/06/2017 MED GEN ([facility] medications (procedure) 12:00:00 AM EDT P hysician) Documentation of current 11/06/2017 MED GEN ([facility] medications (procedure) 12:00:00 AM EDT P hysician) Documentation of current 11/06/2017 MED GEN ([facility] medications (procedure) 12:00:00 AM EDT P hysician) Documentation of current 11/06/2017 MED GEN ([facility] medications (procedure) 12:00:00 AM EDT P hysician) Documentation of current 11/06/2017 MED GEN ([facility] medications (procedure) 12:00:00 AM EDT P hysician) Documentation of current 11/06/2017 MED GEN ([facility] medications (procedure) 12:00:00 AM EDT P hysician) Documentation of current 11/06/2017 MED GEN ([facility] medications (procedure) 12:00:00 AM EDT P hysician) Documentation of current 11/06/2017 MED GEN ([facility] medications (procedure) 12:00:00 AM EDT P hysician) Documentation of current 11/06/2017 MED GEN ([facility] medications (procedure) 12:00:00 AM EDT P hysician) Documentation of current 11/06/2017 MED GEN ([facility] medications (procedure) 12:00:00 AM EDT P hysician) Documentation of current 10/23/2017 MED GEN ([facility] medications (procedure) 12:00:00 AM EDT P hysician) Documentation of current 10/23/2017 MED GEN ([facility] medications (procedure) 12:00:00 AM EDT P hysician) Documentation of current 10/23/2017 MED GEN ([facility] medications (procedure) 12:00:00 AM EDT P hysician) Documentation of current 10/23/2017 MED GEN ([facility] medications (procedure) 12:00:00 AM EDT P hysician) Documentation of current 10/23/2017 MED GEN ([facility] medications (procedure) 12:00:00 AM EDT P hysician) Documentation of current 10/23/2017 MED GEN ([facility] medications (procedure) 12:00:00 AM EDT P hysician) Documentation of current 10/23/2017 MED GEN ([facility] medications (procedure) 12:00:00 AM EDT P hysician) Documentation of current 10/23/2017 MED GEN ([facility] medications (procedure) 12:00:00 AM EDT P hysician) Documentation of current 10/23/2017 MED GEN ([facility] medications (procedure) 12:00:00 AM EDT P hysician) Documentation of current 10/23/2017 MED GEN ([facility] medications (procedure) 12:00:00 AM EDT P hysician) Documentation of current 10/23/2017 MED GEN ([facility] medications (procedure) 12:00:00 AM EDT P hysician) Documentation of current 10/23/2017 MED GEN ([facility] medications (procedure) 12:00:00 AM EDT P hysician) Documentation of current 10/23/2017 MED GEN ([facility] medications (procedure) 12:00:00 AM EDT P hysician) Documentation of current 10/23/2017 MED GEN ([facility] medications (procedure) 12:00:00 AM EDT P hysician) Documentation of current 10/23/2017 MED GEN ([facility] medications (procedure) 12:00:00 AM EDT P hysician) Documentation of current 10/23/2017 MED GEN ([facility] medications (procedure) 12:00:00 AM EDT P hysician) Documentation of current 10/23/2017 MED GEN ([facility] medications (procedure) 12:00:00 AM EDT P hysician) Documentation of current 10/23/2017 MED GEN ([facility] medications (procedure) 12:00:00 AM EDT P hysician) Documentation of current 10/23/2017 MED GEN ([facility] medications (procedure) 12:00:00 AM EDT P hysician) Documentation of current 10/23/2017 MED GEN ([facility] medications (procedure) 12:00:00 AM EDT P hysician) Documentation of current 10/23/2017 MED GEN ([facility] medications (procedure) 12:00:00 AM EDT P hysician) Documentation of current 10/23/2017 MED GEN ([facility] medications (procedure) 12:00:00 AM EDT P hysician) Documentation of current 10/23/2017 MED GEN ([facility] medications (procedure) 12:00:00 AM EDT P hysician) Documentation of current 10/23/2017 MED GEN ([facility] medications (procedure) 12:00:00 AM EDT P hysician) Documentation of current 10/23/2017 MED GEN ([facility] medications (procedure) 12:00:00 AM EDT P hysician) Documentation of current 10/23/2017 MED GEN ([facility] medications (procedure) 12:00:00 AM EDT P hysician) Documentation of current 10/23/2017 MED GEN ([facility] medications (procedure) 12:00:00 AM EDT P hysician) Documentation of current 10/23/2017 MED GEN ([facility] medications (procedure) 12:00:00 AM EDT P hysician) Documentation of current 10/23/2017 MED GEN ([facility] medications (procedure) 12:00:00 AM EDT P hysician) Documentation of current 10/23/2017 MED GEN ([facility] medications (procedure) 12:00:00 AM EDT P hysician) Documentation of current 10/23/2017 MED GEN ([facility] medications (procedure) 12:00:00 AM EDT P hysician) Documentation of current 10/23/2017 MED GEN ([facility] medications (procedure) 12:00:00 AM EDT P hysician) Documentation of current 10/23/2017 MED GEN ([facility] medications (procedure) 12:00:00 AM EDT P hysician) Documentation of current 10/23/2017 MED GEN ([facility] medications (procedure) 12:00:00 AM EDT P hysician) Documentation of current 10/23/2017 MED GEN ([facility] medications (procedure) 12:00:00 AM EDT P hysician) Documentation of current 10/23/2017 MED GEN ([facility] medications (procedure) 12:00:00 AM EDT P hysician) Documentation of current 10/23/2017 MED GEN ([facility] medications (procedure) 12:00:00 AM EDT P hysician) Documentation of current 10/23/2017 MED GEN ([facility] medications (procedure) 12:00:00 AM EDT P hysician) Documentation of current 10/23/2017 MED GEN ([facility] medications (procedure) 12:00:00 AM EDT P hysician) Documentation of current 10/23/2017 MED GEN ([facility] medications (procedure) 12:00:00 AM EDT P hysician) Documentation of current 09/25/2017 MED GEN ([facility] medications (procedure) 12:00:00 AM EDT P hysician) Documentation of current 09/25/2017 MED GEN ([facility] medications (procedure) 12:00:00 AM EDT P hysician) Documentation of current 09/25/2017 MED GEN ([facility] medications (procedure) 12:00:00 AM EDT P hysician) Documentation of current 09/25/2017 MED GEN ([facility] medications (procedure) 12:00:00 AM EDT P hysician) Documentation of current 09/25/2017 MED GEN ([facility] medications (procedure) 12:00:00 AM EDT P hysician) Documentation of current 09/25/2017 MED GEN ([facility] medications (procedure) 12:00:00 AM EDT P hysician) Documentation of current 09/25/2017 MED GEN ([facility] medications (procedure) 12:00:00 AM EDT P hysician) Documentation of current 09/25/2017 MED GEN ([facility] medications (procedure) 12:00:00 AM EDT P hysician) Documentation of current 09/25/2017 MED GEN ([facility] medications (procedure) 12:00:00 AM EDT P hysician) Documentation of current 09/25/2017 MED GEN ([facility] medications (procedure) 12:00:00 AM EDT P hysician) Documentation of current 09/25/2017 MED GEN ([facility] medications (procedure) 12:00:00 AM EDT P hysician) Documentation of current 09/25/2017 MED GEN ([facility] medications (procedure) 12:00:00 AM EDT P hysician) Documentation of current 09/25/2017 MED GEN ([facility] medications (procedure) 12:00:00 AM EDT P hysician) Documentation of current 09/25/2017 MED GEN ([facility] medications (procedure) 12:00:00 AM EDT P hysician) Documentation of current 09/25/2017 MED GEN ([facility] medications (procedure) 12:00:00 AM EDT P hysician) Documentation of current 09/25/2017 MED GEN ([facility] medications (procedure) 12:00:00 AM EDT P hysician) Documentation of current 09/25/2017 MED GEN ([facility] medications (procedure) 12:00:00 AM EDT P hysician) Documentation of current 09/25/2017 MED GEN ([facility] medications (procedure) 12:00:00 AM EDT P hysician) Documentation of current 09/25/2017 MED GEN ([facility] medications (procedure) 12:00:00 AM EDT P hysician) Documentation of current 09/25/2017 MED GEN ([facility] medications (procedure) 12:00:00 AM EDT P hysician) Documentation of current 09/25/2017 MED GEN ([facility] medications (procedure) 12:00:00 AM EDT P hysician) Documentation of current 09/25/2017 MED GEN ([facility] medications (procedure) 12:00:00 AM EDT P hysician) Documentation of current 09/25/2017 MED GEN ([facility] medications (procedure) 12:00:00 AM EDT P hysician) Documentation of current 09/25/2017 MED GEN ([facility] medications (procedure) 12:00:00 AM EDT P hysician) Documentation of current 09/25/2017 MED GEN ([facility] medications (procedure) 12:00:00 AM EDT P hysician) Documentation of current 09/25/2017 MED GEN ([facility] medications (procedure) 12:00:00 AM EDT P hysician) Documentation of current 09/25/2017 MED GEN ([facility] medications (procedure) 12:00:00 AM EDT P hysician) Documentation of current 09/25/2017 MED GEN ([facility] medications (procedure) 12:00:00 AM EDT P hysician) Documentation of current 09/25/2017 MED GEN ([facility] medications (procedure) 12:00:00 AM EDT P hysician) Documentation of current 09/25/2017 MED GEN ([facility] medications (procedure) 12:00:00 AM EDT P hysician) Documentation of current 09/25/2017 MED GEN ([facility] medications (procedure) 12:00:00 AM EDT P hysician) Documentation of current 09/25/2017 MED GEN ([facility] medications (procedure) 12:00:00 AM EDT P hysician) Documentation of current 09/25/2017 MED GEN ([facility] medications (procedure) 12:00:00 AM EDT P hysician) Documentation of current 09/25/2017 MED GEN ([facility] medications (procedure) 12:00:00 AM EDT P hysician) Documentation of current 09/25/2017 MED GEN ([facility] medications (procedure) 12:00:00 AM EDT P hysician) Documentation of current 12/01/2016 [facility] GEN ([facility] medications (procedure) 12:00:00 AM EDT P hysician) Documentation of current 12/01/2016 MED GEN ([facility] medications (procedure) 12:00:00 AM EDT P hysician) Documentation of current 12/01/2016 MED GEN ([facility] medications (procedure) 12:00:00 AM EDT P hysician) Documentation of current 12/01/2016 MED GEN ([facility] medications (procedure) 12:00:00 AM EDT P hysician) Documentation of current 12/01/2016 MED GEN ([facility] medications (procedure) 12:00:00 AM EDT P hysician) Documentation of current 12/01/2016 MED GEN ([facility] medications (procedure) 12:00:00 AM EDT P hysician) Documentation of current 12/01/2016 MED GEN ([facility] medications (procedure) 12:00:00 AM EDT P hysician) Documentation of current 12/01/2016 MED GEN ([facility] medications (procedure) 12:00:00 AM EDT P hysician) Documentation of current 12/01/2016 MED GEN ([facility] medications (procedure) 12:00:00 AM EDT P hysician) Documentation of current 12/01/2016 MED GEN ([facility] medications (procedure) 12:00:00 AM EDT P hysician) Documentation of current 12/01/2016 MED GEN ([facility] medications (procedure) 12:00:00 AM EDT P hysician) Documentation of current 12/01/2016 MED GEN ([facility] medications (procedure) 12:00:00 AM EDT P hysician) Documentation of current 12/01/2016 MED GEN ([facility] medications (procedure) 12:00:00 AM EDT P hysician) Documentation of current 12/01/2016 MED GEN ([facility] medications (procedure) 12:00:00 AM EDT P hysician) Documentation of current 12/01/2016 MED GEN ([facility] medications (procedure) 12:00:00 AM EDT P hysician) Documentation of current 12/01/2016 MED GEN ([facility] medications (procedure) 12:00:00 AM EDT P hysician) Documentation of current 12/01/2016 [facility] GEN ([facility] medications (procedure) 12:00:00 AM EDT P hysician) Documentation of current 12/01/2016 MED GEN ([facility] medications (procedure) 12:00:00 AM EDT P hysician) Documentation of current 12/01/2016 MED GEN ([facility] medications (procedure) 12:00:00 AM EDT P hysician) Documentation of current 12/01/2016 MED GEN ([facility] medications (procedure) 12:00:00 AM EDT P hysician) Documentation of current 12/01/2016 MED GEN ([facility] medications (procedure) 12:00:00 AM EDT P hysician) Documentation of current 12/01/2016 MED GEN ([facility] medications (procedure) 12:00:00 AM EDT P hysician) Documentation of current 12/01/2016 MED GEN ([facility] medications (procedure) 12:00:00 AM EDT P hysician) Documentation of current 12/01/2016 MED GEN ([facility] medications (procedure) 12:00:00 AM EDT P hysician) Documentation of current 12/01/2016 MED GEN ([facility] medications (procedure) 12:00:00 AM EDT P hysician) Documentation of current 12/01/2016 MED GEN ([facility] medications (procedure) 12:00:00 AM EDT P hysician) Documentation of current 12/01/2016 MED GEN ([facility] medications (procedure) 12:00:00 AM EDT P hysician) Documentation of current 12/01/2016 MED GEN ([facility] medications (procedure) 12:00:00 AM EDT P hysician) Documentation of current 12/01/2016 MED GEN ([facility] medications (procedure) 12:00:00 AM EDT P hysician) Documentation of current 12/01/2016 MED GEN ([facility] medications (procedure) 12:00:00 AM EDT P hysician) Documentation of current 12/01/2016 MED GEN ([facility] medications (procedure) 12:00:00 AM EDT P hysician) Documentation of current 12/01/2016 MED GEN ([facility] medications (procedure) 12:00:00 AM EDT P hysician) Documentation of current 12/01/2016 MED GEN ([facility] medications (procedure) 12:00:00 AM EDT P hysician) Documentation of current 12/01/2016 MED GEN ([facility] medications (procedure) 12:00:00 AM EDT P hysician) Documentation of current 12/01/2016 MED GEN ([facility] medications (procedure) 12:00:00 AM EDT P hysician) Documentation of current 12/01/2016 MED GEN ([facility] medications (procedure) 12:00:00 AM EDT P hysician) Documentation of current 12/01/2016 MED GEN ([facility] medications (procedure) 12:00:00 AM EDT P hysician) Documentation of current 12/01/2016 MED GEN ([facility] medications (procedure) 12:00:00 AM EDT P hysician) Documentation of current 12/01/2016 MED GEN ([facility] medications (procedure) 12:00:00 AM EDT P hysician) Documentation of current 12/01/2016 MED GEN ([facility] medications (procedure) 12:00:00 AM EDT P hysician) Documentation of current 12/01/2016 MED GEN ([facility] medications (procedure) 12:00:00 AM EDT P hysician) Documentation of current 12/01/2016 MED GEN ([facility] medications (procedure) 12:00:00 AM EDT P hysician) Documentation of current 12/01/2016 MED GEN ([facility] medications (procedure) 12:00:00 AM EDT P hysician) Documentation of current 12/01/2016 MED GEN ([facility] medications (procedure) 12:00:00 AM EDT P hysician) Documentation of current 12/01/2016 MED GEN ([facility] medications (procedure) 12:00:00 AM EDT P hysician) Documentation of current 12/01/2016 MED GEN ([facility] medications (procedure) 12:00:00 AM EDT P hysician) Documentation of current 12/01/2016 MED GEN ([facility] medications (procedure) 12:00:00 AM EDT P hysician) Documentation of current 12/01/2016 MED GEN ([facility] medications (procedure) 12:00:00 AM EDT P hysician) Documentation of current 12/01/2016 [facility] GEN ([facility] medications (procedure) 12:00:00 AM EDT P hysician) Documentation of current 12/01/2016 [facility] ([facility] medications (procedure) 12:00:00 AM EDT P hysician) Results ID Date Data Source [id number] 10/30/2019 12:00:00 AM EDT [facility] ([facility] Physician) Name Value Range Interpretation Description Data Sup porting Code Source(s) Document(s ) MICROALBUMIN 1.2 Normal (applies [facility] URINE mg/dL to non-numeric ([facility] results) Charles Physician) CREATININE, 34.8 Normal (applies [facility] URINE mg/dL to non-numeric (Ammir results) Charles Physician) MICROALBUMIN/CRE 34.5 Above high normal [facility] N ATININ RATIO mg/g (Ammir creat Charles Physician) ID Date Data Source [id number] 10/22/2019 12:00:00 AM EDT [facility] [[email or web address]] Name Value Range Interpretation Code Description Data Faiza rce(s) Supporting Document(s ) SARS-COV-2 [place] RNA RT-PCR [facility] This lab was ordered by [facility] and reported by [facility]. ID Date Data Source [id number] 10/16/2019 08:43:00 AM EDT [facility] Name Value Range Interpretation Code Description Data Faiza rce(s) Supporting Document(s ) HOLOGIC [facility] SARS-CoV-2 [place] PCR [facility] and reported by [facility]. ID Date Data Source [id number] 10/14/2019 12:00:00 AM EDT [facility] (Ammir Charles Physician) Name Value Range Interpretation Description Data Sup porting Code Source(s) Document(s ) GLUCOSE 87 mg/dL Normal (applies [facility] NONFASTING,SERUM to non-numeric (Ammir results) Charles Physician) SODIUM, SERUM 140 Normal (applies [facility] mEq/L to non-numeric (Ammir results) Charles Physician) POTASSIUM, SERUM 4.2 Normal (applies [facility] mEq/L to non-numeric (Ammir results) Charles Physician) CHLORIDE, SERUM 108 Normal (applies [facility] mEq/L to non-numeric (Ammir results) Charles Physician) Carbon dioxide 27 mEq/L Normal (applies [facility] [VFr/PPres] in to non-numeric (Ammir Gas delivery results) Charles system Physician) Anion gap in 9.2 Normal (applies [facility] Body fluid mEq/L to non-numeric (Ammir results) Charles Physician) BLOOD UREA 8 mg/dL Below low normal [facility] NITROGEN (Ammir Charles Physician) CREATININE, 0.70 Normal (applies [facility] SERUM mg/dL to non-numeric (Ammir results) Charles Physician) BUN/CREATININE 11.43 Normal (applies [facility] RATIO to non-numeric (Ammir results) Charles Physician) CALCIUM, SERUM 9.8 Normal (applies [facility] mg/dL to non-numeric (Ammir results) Charles Physician) TOTAL PROTEIN 7.2 g/dL Normal (applies [facility] to non-numeric (Ammir results) Charles Physician) Microalbumin 4.2 g/dL Normal (applies [facility] [Mass/time] in to non-numeric (Ammir Urine collected results) Charles for unspecified Physician) duration Globulin 3.0 gldl Normal (applies [facility] [Mass/time] in to non-numeric (Ammir 24 hour Urine results) Charles Physician) A/G RATIO 1.40 Normal (applies [facility] g/dl to non-numeric (Ammir results) Charles Physician) BILIRUBIN, TOTAL 0.2 Below low normal [facility] mg/dL (Ammir Charles Physician) ALKALINE 87 U/L Normal (applies [facility] PHOSPHATASE, ALP to non-numeric (Ammir results) Charles Physician) ALT (SGPT) 14 U/L Normal (applies [facility] to non-numeric (Ammir results) Charles Physician) AST 21 U/L Normal (applies [facility] to non-numeric (Ammir results) Charles Physician) EGFR NON AFR 94 Normal (applies [facility] SUDANESE mL/min/1 to non-numeric (Ammir .73m2 results) Charles Physician) EGFR AFR 114 Normal (applies [facility] SUDANESE mL/min/1 to non-numeric (Ammir .73m2 results) Charles Physician) ID Date Data Source [id number] 10/14/2019 12:00:00 AM EDT [facility] (Ammir Charles Physician) Name Value Range Interpretation Description Data Sup porting Code Source(s) Document(s ) CREATINE 159 U/L Normal (applies to [facility] (Amm ir KINASE (CK) non-numeric Charles results) Physician) ID Date Data Source [id number] 10/14/2019 12:00:00 AM EDT [facility] (Ammir Charles Physician) Name Value Range Interpretation Description Data Sup porting Code Source(s) Document(s ) GLUCOSE UA NEGATIVE Normal (applies [facility] to non-numeric (Ammir results) Charles Physician) BILIRUBIN, TOTAL NEGATIVE Normal (applies [facility] to non-numeric (Ammir results) Charles Physician) Ketones NEGATIVE Normal (applies [facility] [Presence] in to non-numeric (Ammir Blood by Tablet results) Charles Physician) Specific gravity 1.009 SG Normal (applies [facility] of Pericardial units to non-numeric (Ammir fluid by results) [facility] Refractometry Physician) Blood [Presence] NEGATIVE Normal (applies [facility] in Urine by to non-numeric (Ammir Visual results) Charles Physician) pH of Lower 8 Ph units Normal (applies [facility] respiratory to non-numeric (Ammir specimen results) Charles Physician) Protein NEGATIVE Normal (applies [facility] [Mass/volume] in to non-numeric (Ammir Lower results) [facility] respiratory Physician) specimen Urobilinogen 0-2.0 Normal (applies [facility] [Presence] in to non-numeric (Ammir Urine by results) [facility] Automated test Physician) strip Nitrite NEGATIVE Normal (applies [facility] [Presence] in to non-numeric (Ammir Urine by Test results) [facility] strip Physician) Leukocyte LARGE Abnormal [facility] esterase (applies to (Ammir [Presence] in non-numeric Charles Body fluid by results) Physician) Automated test strip Color of YELLOW Normal (applies [facility] Peritoneal to non-numeric (Ammir dialysis fluid results) Charles Physician) TRANSPARENCY CLOUDY Abnormal [facility] (applies to (Ammir non-numeric Charles results) Physician) RBC`S 0-4 Normal (applies [facility] to non-numeric (Ammir results) Charles Physician) WBC`S 21-50 Abnormal [facility] (applies to (Ammir non-numeric Charles results) Physician) Bacteria FEW Abnormal [facility] [Presence] in (applies to (Ammir Prostatic fluid non-numeric Charles by Light results) Physician) microscopy SQUAMOUS FEW Normal (applies [facility] EPITHELIAL to non-numeric (Ammir results) Charles Physician) MUCOUS FEW Normal (applies [facility] to non-numeric (Ammir results) Charles Physician) ID Date Data Source [id number] 10/14/2019 12:00:00 AM EDT [facility] (Ammir Charles Physician) Name Value Range Interpretation Description Data Sup porting Code Source(s) Document(s ) BNP, B-TYPE 52.8 Normal (applies [facility] NATRIURETIC pg/mL to non-numeric (Ammir results) Charles Physician) ID Date Data Source [id number] 10/14/2019 12:00:00 AM EDT [facility] (Ammir Charles Physician) Name Value Range Interpretation Description Data Sup porting Code Source(s) Document(s ) Hemoglobin A1c 5.7 % Above high normal [facility] (Ammir in Blood Charles Physician) ID Date Data Source [id number] 10/14/2019 12:00:00 AM EDT [facility] (Ammir Charles Physician) Name Value Range Interpretation Description Data Sup porting Code Source(s) Document(s ) VITAMIN D 32.27 Below low normal [facility] (Ammir 25-HYDROXY ng/mL Charles Physician) ID Date Data Source [id number] 10/14/2019 12:00:00 AM EDT [facility] (Ammir Charles Physician) Name Value Range Interpretation Description Data Sup porting Code Source(s) Document(s ) FOLATE SERUM 15.6 Normal (applies to [facility] ( Ammir ng/mL non-numeric Charles results) Physician) VITAMIN B12 924 pg/mL Above high normal [facility] (Am teetee Charles Physician) ID Date Data Source [id number] 10/14/2019 12:00:00 AM EDT [facility] (Ammir Charles Physician) Name Value Range Interpretation Description Data Sup porting Code Source(s) Document(s ) WBC 6.8 Normal (applies [facility] 10(3)/uL to non-numeric (Ammir results) Charles Physician) RBC 4.4 Normal (applies [facility] 10(6)/uL to non-numeric (Ammir results) Charles Physician) Hemoglobin 11.7 g/dL Below low normal [facility] [Mass/volume] (Ammir in Mixed venous Charles blood by Physician) Oximetry Hematocrit 36.0 % Normal (applies [facility] [Pure volume to non-numeric (Ammir fraction] of results) Charles Blood by Physician) Automated count MCV 82.8 fL Normal (applies [facility] to non-numeric (Ammir results) Charles Physician) MCH 27 pg Normal (applies [facility] to non-numeric (Ammir results) Charles Physician) MCHC 33 g/dL Normal (applies [facility] to non-numeric (Ammir results) Charles Physician) RDWSD 41.6 fL Normal (applies [facility] to non-numeric (Ammir results) Charles Physician) RDWCV 13.9 % Normal (applies [facility] to non-numeric (Ammir results) Charles Physician) Platelet Count 362 Normal (applies [facility] 10(3)/uL to non-numeric (Ammir results) Charles Physician) MPV 10.7 fL Normal (applies [facility] to non-numeric (Ammir results) Charles Physician) Neutrophil Abs 3.86 Normal (applies [facility] 10(3)/uL to non-numeric (Ammir results) Charles Physician) Lymphocyte Abs 2.40 Normal (applies [facility] 10(3)/uL to non-numeric (Ammir results) Charles Physician) Monocyte Abs 0.48 Normal (applies [facility] 10(3)/uL to non-numeric (Ammir results) Charles Physician) Eosinophil Abs 0.07 Normal (applies [facility] 10(3)/uL to non-numeric (Ammir results) Charles Physician) Basophil Abs 0.03 Normal (applies [facility] 10(3)/uL to non-numeric (Ammir results) Charles Physician) Immature 0.01 Normal (applies [facility] Granulocyte Abs 10(3)/uL to non-numeric (Ammir results) Charles Physician) Neutrophil % 56.50 % Normal (applies [facility] to non-numeric (Ammir results) Charles Physician) Lymphocyte % 35 % Normal (applies [facility] to non-numeric (Ammir results) Charles Physician) Monocyte % 7.0 % Normal (applies [facility] to non-numeric (Ammir results) Charles Physician) Eosinophil % 1.0 % Normal (applies [facility] to non-numeric (Ammir results) Charles Physician) Basophil % 0.4 % Normal (applies [facility] to non-numeric (Ammir results) Charles Physician) Immature 0.10 % Normal (applies [facility] Granulocyte % to non-numeric (Ammir results) Charles Physician) NRBC % 0.0 % Normal (applies [facility] to non-numeric (Ammir results) Charles Physician) NRBC Abs 0.00 Normal (applies [facility] 10(3)/uL to non-numeric (Ammir results) Charles Physician) ID Date Data Source [id number] 10/14/2019 12:00:00 AM EDT [facility] (Ammir Charles Physician) Name Value Range Interpretation Description Data Sup porting Code Source(s) Document(s ) MICROALBUMIN 0.3 Normal (applies [facility] URINE mg/dL to non-numeric (Ammir results) Charles Physician) CREATININE, 62.9 Normal (applies [facility] URINE mg/dL to non-numeric (Ammir results) Charles Physician) MICROALBUMIN/CRE 4.8 mg/g Normal (applies [facility] ATININ RATIO creat to non-numeric (Ammir results) Charles Physician) ID Date Data Source [id number] 10/14/2019 12:00:00 AM EDT [facility] (Ammir Charles Physician) Name Value Range Interpretation Description Data Sup porting Code Source(s) Document(s ) TSH,3RD 1.59 Normal (applies to [facility] GENERATION uIU/mL non-numeric (Ammir results) Charles Physician) T4 FREE, 1.00 Normal (applies to [facility] THYROXINE ng/dL non-numeric (Ammir results) Charles Physician) ID Date Data Source [id number] 10/14/2019 12:00:00 AM EDT [facility] (Ammir Charles Physician) Name Value Range Interpretation Description Data Sup porting Code Source(s) Document(s ) Cholesterol 169 Normal (applies [facility] [Moles/volume] mg/dL to non-numeric (Ammir in Pericardial results) Charles fluid Physician) LDL CALCULATION 101.6 Normal (applies [facility] mg/dL to non-numeric (Ammir results) [place] Physician) CHOL/HDL RATIO 3.19 Normal (applies [facility] ratio to non-numeric (Ammir results) Charles Physician) HDL CHOLESTEROL 53 mg/dL Normal (applies [facility] to non-numeric (Ammir results) Charles Physician) VLDL CALCULATION 14.4 Normal (applies [facility] mg/dl to non-numeric (Ammir results) Charles Physician) TRIGLYCERIDES 72 mg/dL Normal (applies [facility] to non-numeric (Ammir results) Charles Physician) ID Date Data Source [id number] 10/14/2019 12:00:00 AM EDT [facility] (Ammir Charles Physician) Name Value Range Interpretation Description Data Sup porting Code Source(s) Document(s ) GLUCOSE 87 mg/dL Normal (applies [facility] NONFASTING,SERUM to non-numeric (Ammir results) Charles Physician) SODIUM, SERUM 140 Normal (applies [facility] mEq/L to non-numeric (Ammir results) Charles Physician) POTASSIUM, SERUM 4.2 Normal (applies [facility] mEq/L to non-numeric (Ammir results) Charles Physician) CHLORIDE, SERUM 108 Normal (applies [facility] mEq/L to non-numeric (Ammir results) Charles Physician) Carbon dioxide 27 mEq/L Normal (applies [facility] [VFr/PPres] in to non-numeric (Ammir Gas delivery results) Charles system Physician) Anion gap in 9.2 Normal (applies [facility] Body fluid mEq/L to non-numeric (Ammir results) Charles Physician) BLOOD UREA 8 mg/dL Below low normal [facility] NITROGEN (Ammir Charles Physician) CREATININE, 0.70 Normal (applies [facility] SERUM mg/dL to non-numeric (Ammir results) Charles Physician) BUN/CREATININE 11.43 Normal (applies [facility] RATIO to non-numeric (Ammir results) Charles Physician) CALCIUM, SERUM 9.8 Normal (applies [facility] mg/dL to non-numeric (Ammir results) Charles Physician) TOTAL PROTEIN 7.2 g/dL Normal (applies [facility] to non-numeric (Ammir results) Charles Physician) Microalbumin 4.2 g/dL Normal (applies [facility] [Mass/time] in to non-numeric (Ammir Urine collected results) Charles for unspecified Physician) duration Globulin 3.0 gldl Normal (applies [facility] [Mass/time] in to non-numeric (Ammir 24 hour Urine results) Charles Physician) A/G RATIO 1.40 Normal (applies [facility] g/dl to non-numeric (Ammir results) Charles Physician) BILIRUBIN, TOTAL 0.2 Below low normal [facility] mg/dL (Ammir Charles Physician) ALKALINE 87 U/L Normal (applies [facility] PHOSPHATASE, ALP to non-numeric (Ammir results) Charles Physician) ALT (SGPT) 14 U/L Normal (applies [facility] to non-numeric (Ammir results) Charles Physician) AST 21 U/L Normal (applies [facility] to non-numeric (Ammir results) Charles Physician) EGFR NON AFR 94 Normal (applies [facility] SUDANESE mL/min/1 to non-numeric (Ammir .73m2 results) Charles Physician) EGFR AFR 114 Normal (applies [facility] SUDANESE mL/min/1 to non-numeric (Ammir .73m2 results) Charles Physician) ID Date Data Source [id number] 10/14/2019 12:00:00 AM EDT [facility] (Ammir Charles Physician) Name Value Range Interpretation Description Data Sup porting Code Source(s) Document(s ) CREATINE 159 U/L Normal (applies to [facility] (Amm ir KINASE (CK) non-numeric Charles results) Physician) ID Date Data Source [id number] 10/14/2019 12:00:00 AM EDT [facility] (Ammir Charles Physician) Name Value Range Interpretation Description Data Sup porting Code Source(s) Document(s ) GLUCOSE UA NEGATIVE Normal (applies [facility] to non-numeric (Ammir results) Charles Physician) BILIRUBIN, TOTAL NEGATIVE Normal (applies [facility] to non-numeric (Ammir results) Charles Physician) Ketones NEGATIVE Normal (applies [facility] [Presence] in to non-numeric (Ammir Blood by Tablet results) Charles Physician) Specific gravity 1.009 SG Normal (applies [facility] of Pericardial units to non-numeric (Ammir fluid by results) Charles Refractometry Physician) Blood [Presence] NEGATIVE Normal (applies [facility] in Urine by to non-numeric (Ammir Visual results) Charles Physician) pH of Lower 8 Ph units Normal (applies [facility] respiratory to non-numeric (Ammir specimen results) Charles Physician) Protein NEGATIVE Normal (applies [facility] [Mass/volume] in to non-numeric (Ammir Lower results) Charles respiratory Physician) specimen Urobilinogen 0-2.0 Normal (applies [facility] [Presence] in to non-numeric (Ammir Urine by results) Charles Automated test Physician) strip Nitrite NEGATIVE Normal (applies [facility] [Presence] in to non-numeric (Ammir Urine by Test results) Charles strip Physician) Leukocyte LARGE Abnormal [facility] esterase (applies to (Ammir [Presence] in non-numeric Charles Body fluid by results) Physician) Automated test strip Color of YELLOW Normal (applies [facility] Peritoneal to non-numeric (Ammir dialysis fluid results) Charles Physician) TRANSPARENCY CLOUDY Abnormal [facility] (applies to (Ammir non-numeric Charles results) Physician) RBC`S 0-4 Normal (applies [facility] to non-numeric (Ammir results) Charles Physician) WBC`S 21-50 Abnormal [facility] (applies to (Ammir non-numeric Charles results) Physician) SQUAMOUS FEW Normal (applies [facility] EPITHELIAL to non-numeric (Ammir results) Charles Physician) Bacteria FEW Abnormal [facility] [Presence] in (applies to (Ammir Prostatic fluid non-numeric Charles by Light results) Physician) microscopy MUCOUS FEW Normal (applies [facility] to non-numeric (Ammir results) Charles Physician) ID Date Data Source [id number] 10/14/2019 12:00:00 AM EDT [facility] (Ammir Charles Physician) Name Value Range Interpretation Description Data Sup porting Code Source(s) Document(s ) BNP, B-TYPE 52.8 Normal (applies [facility] NATRIURETIC pg/mL to non-numeric (Ammir results) Charles Physician) ID Date Data Source [id number] 10/14/2019 12:00:00 AM EDT [facility] (Ammir Charles Physician) Name Value Range Interpretation Description Data Sup porting Code Source(s) Document(s ) Hemoglobin A1c 5.7 % Above high normal [facility] (Ammir in Blood Charles Physician) ID Date Data Source [id number] 10/14/2019 12:00:00 AM EDT [facility] (Ammir Charles Physician) Name Value Range Interpretation Description Data Sup porting Code Source(s) Document(s ) VITAMIN D 32.27 Below low normal [facility] (Ammir 25-HYDROXY ng/mL Charles Physician) ID Date Data Source [id number] 10/14/2019 12:00:00 AM EDT [facility] (Ammir Charles Physician) Name Value Range Interpretation Description Data Sup porting Code Source(s) Document(s ) FOLATE SERUM 15.6 Normal (applies to [facility] ( Ammir ng/mL non-numeric Charles results) Physician) VITAMIN B12 924 pg/mL Above high normal [facility] (Am teetee Charles Physician) ID Date Data Source [id number] 10/14/2019 12:00:00 AM EDT [facility] (Ammir Charles Physician) Name Value Range Interpretation Description Data Sup porting Code Source(s) Document(s ) WBC 6.8 Normal (applies [facility] 10(3)/uL to non-numeric (Ammir results) Charles Physician) RBC 4.4 Normal (applies [facility] 10(6)/uL to non-numeric (Ammir results) Charles Physician) Hemoglobin 11.7 g/dL Below low normal [facility] [Mass/volume] (Ammir in Mixed venous Charles blood by Physician) Oximetry Hematocrit 36.0 % Normal (applies [facility] [Pure volume to non-numeric (Ammir fraction] of results) Charles Blood by Physician) Automated count MCV 82.8 fL Normal (applies [facility] to non-numeric (Ammir results) Charles Physician) MCH 27 pg Normal (applies [facility] to non-numeric (Ammir results) Charles Physician) MCHC 33 g/dL Normal (applies [facility] to non-numeric (Ammir results) Charles Physician) RDWSD 41.6 fL Normal (applies [facility] to non-numeric (Ammir results) Charles Physician) RDWCV 13.9 % Normal (applies [facility] to non-numeric (Ammir results) Charles Physician) Platelet Count 362 Normal (applies [facility] 10(3)/uL to non-numeric (Ammir results) Charles Physician) MPV 10.7 fL Normal (applies [facility] to non-numeric (Ammir results) Charles Physician) Neutrophil Abs 3.86 Normal (applies [facility] 10(3)/uL to non-numeric (Ammir results) Charles Physician) Lymphocyte Abs 2.40 Normal (applies [facility] 10(3)/uL to non-numeric (Ammir results) Charles Physician) Monocyte Abs 0.48 Normal (applies [facility] 10(3)/uL to non-numeric (Ammir results) Charles Physician) Eosinophil Abs 0.07 Normal (applies [facility] 10(3)/uL to non-numeric (Ammir results) Charles Physician) Immature 0.01 Normal (applies [facility] Granulocyte Abs 10(3)/uL to non-numeric (Ammir results) Charles Physician) Basophil Abs 0.03 Normal (applies [facility] 10(3)/uL to non-numeric (Ammir results) Charles Physician) Neutrophil % 56.50 % Normal (applies [facility] to non-numeric (Ammir results) Charles Physician) Lymphocyte % 35 % Normal (applies [facility] to non-numeric (Ammir results) Charles Physician) Monocyte % 7.0 % Normal (applies [facility] to non-numeric (Ammir results) Charles Physician) Eosinophil % 1.0 % Normal (applies [facility] to non-numeric (Ammir results) Charles Physician) Basophil % 0.4 % Normal (applies [facility] to non-numeric (Ammir results) Charles Physician) Immature 0.10 % Normal (applies [facility] Granulocyte % to non-numeric (Ammir results) Charles Physician) NRBC % 0.0 % Normal (applies [facility] to non-numeric (Ammir results) Charles Physician) NRBC Abs 0.00 Normal (applies [facility] 10(3)/uL to non-numeric (Ammir results) Charles Physician) ID Date Data Source [id number] 10/14/2019 12:00:00 AM EDT [facility] (Ammir Charles Physician) Name Value Range Interpretation Description Data Sup porting Code Source(s) Document(s ) MICROALBUMIN 0.3 Normal (applies [facility] URINE mg/dL to non-numeric (Ammir results) Charles Physician) CREATININE, 62.9 Normal (applies [facility] URINE mg/dL to non-numeric (Ammir results) Charles Physician) MICROALBUMIN/CRE 4.8 mg/g Normal (applies [facility] ATININ RATIO creat to non-numeric (Ammir results) Charles Physician) ID Date Data Source [id number] 10/14/2019 12:00:00 AM EDT [facility] (Ammir Charles Physician) Name Value Range Interpretation Description Data Sup porting Code Source(s) Document(s ) TSH,3RD 1.59 Normal (applies to [facility] GENERATION uIU/mL non-numeric (Ammir results) Charles Physician) T4 FREE, 1.00 Normal (applies to [facility] THYROXINE ng/dL non-numeric (Ammir results) Charles Physician) ID Date Data Source [id number] 10/14/2019 12:00:00 AM EDT [facility] (Ammir Charles Physician) Name Value Range Interpretation Description Data Sup porting Code Source(s) Document(s ) Cholesterol 169 Normal (applies [facility] [Moles/volume] mg/dL to non-numeric (Ammir in Pericardial results) Charles fluid Physician) LDL CALCULATION 101.6 Normal (applies [facility] mg/dL to non-numeric (Ammir results) Charles Physician) HDL CHOLESTEROL 53 mg/dL Normal (applies [facility] to non-numeric (Ammir results) Charles Physician) CHOL/HDL RATIO 3.19 Normal (applies [facility] ratio to non-numeric (Ammir results) Charles Physician) VLDL CALCULATION 14.4 Normal (applies [facility] mg/dl to non-numeric (Ammir results) Charles Physician) TRIGLYCERIDES 72 mg/dL Normal (applies [facility] to non-numeric (Ammir results) Charles Physician) ID Date Data Source [id number] 10/14/2019 12:00:00 AM EDT [facility] (Ammir Charles Physician) Name Value Range Interpretation Description Data Sup porting Code Source(s) Document(s ) GLUCOSE 87 mg/dL Normal (applies [facility] NONFASTING,SERUM to non-numeric (Ammir results) Charles Physician) SODIUM, SERUM 140 Normal (applies [facility] mEq/L to non-numeric (Ammir results) Charles Physician) POTASSIUM, SERUM 4.2 Normal (applies [facility] mEq/L to non-numeric (Ammir results) Charles Physician) CHLORIDE, SERUM 108 Normal (applies [facility] mEq/L to non-numeric (Ammir results) Charles Physician) Carbon dioxide 27 mEq/L Normal (applies [facility] [VFr/PPres] in to non-numeric (Ammir Gas delivery results) Charles system Physician) Anion gap in 9.2 Normal (applies [facility] Body fluid mEq/L to non-numeric (Ammir results) Charles Physician) BLOOD UREA 8 mg/dL Below low normal [facility] NITROGEN (Ammir Charles Physician) CREATININE, 0.70 Normal (applies [facility] SERUM mg/dL to non-numeric (Ammir results) Charles Physician) BUN/CREATININE 11.43 Normal (applies [facility] RATIO to non-numeric (Ammir results) Charles Physician) CALCIUM, SERUM 9.8 Normal (applies [facility] mg/dL to non-numeric (Ammir results) Charles Physician) TOTAL PROTEIN 7.2 g/dL Normal (applies [facility] to non-numeric (Ammir results) Charles Physician) Microalbumin 4.2 g/dL Normal (applies [facility] [Mass/time] in to non-numeric (Ammir Urine collected results) Charles for unspecified Physician) duration Globulin 3.0 gldl Normal (applies [facility] [Mass/time] in to non-numeric (Ammir 24 hour Urine results) Charles Physician) A/G RATIO 1.40 Normal (applies [facility] g/dl to non-numeric (Ammir results) Charles Physician) BILIRUBIN, TOTAL 0.2 Below low normal [facility] mg/dL (Ammir Charles Physician) ALKALINE 87 U/L Normal (applies [facility] PHOSPHATASE, ALP to non-numeric (Ammir results) Charles Physician) ALT (SGPT) 14 U/L Normal (applies [facility] to non-numeric (Ammir results) Charles Physician) AST 21 U/L Normal (applies [facility] to non-numeric (Ammir results) Charles Physician) EGFR NON AFR 94 Normal (applies [facility] SUDANESE mL/min/1 to non-numeric (Ammir .73m2 results) Charles Physician) EGFR AFR 114 Normal (applies [facility] SUDANESE mL/min/1 to non-numeric (Ammir .73m2 results) Charles Physician) ID Date Data Source [id number] 10/14/2019 12:00:00 AM EDT [facility] (Ammir Charles Physician) Name Value Range Interpretation Description Data Sup porting Code Source(s) Document(s ) CREATINE 159 U/L Normal (applies to [facility] (Amm ir KINASE (CK) non-numeric Charles results) Physician) ID Date Data Source [id number] 10/14/2019 12:00:00 AM EDT [facility] (Ammir Charles Physician) Name Value Range Interpretation Description Data Sup porting Code Source(s) Document(s ) GLUCOSE UA NEGATIVE Normal (applies [facility] to non-numeric (Ammir results) Charles Physician) BILIRUBIN, TOTAL NEGATIVE Normal (applies [facility] to non-numeric (Ammir results) Charles Physician) Ketones NEGATIVE Normal (applies [facility] [Presence] in to non-numeric (Ammir Blood by Tablet results) Charles Physician) Specific gravity 1.009 SG Normal (applies [facility] of Pericardial units to non-numeric (Ammir fluid by results) Charles Refractometry Physician) Blood [Presence] NEGATIVE Normal (applies [facility] in Urine by to non-numeric (Ammir Visual results) Charles Physician) pH of Lower 8 Ph units Normal (applies [facility] respiratory to non-numeric (Ammir specimen results) Charles Physician) Protein NEGATIVE Normal (applies [facility] [Mass/volume] in to non-numeric (Ammir Lower results) Charles respiratory Physician) specimen Urobilinogen 0-2.0 Normal (applies [facility] [Presence] in to non-numeric (Ammir Urine by results) Charles Automated test Physician) strip Nitrite NEGATIVE Normal (applies [facility] [Presence] in to non-numeric (Ammir Urine by Test results) Charles strip Physician) Leukocyte LARGE Abnormal [facility] esterase (applies to (Ammir [Presence] in non-numeric Charles Body fluid by results) Physician) Automated test strip Color of YELLOW Normal (applies [facility] Peritoneal to non-numeric (Ammir dialysis fluid results) Charles Physician) TRANSPARENCY CLOUDY Abnormal [facility] (applies to (Ammir non-numeric Charles results) Physician) RBC`S 0-4 Normal (applies [facility] to non-numeric (Ammir results) Charles Physician) WBC`S 21-50 Abnormal [facility] (applies to (Ammir non-numeric Charles results) Physician) Bacteria FEW Abnormal [facility] [Presence] in (applies to (Ammir Prostatic fluid non-numeric Charles by Light results) Physician) microscopy SQUAMOUS FEW Normal (applies [facility] EPITHELIAL to non-numeric (Ammir results) Charles Physician) MUCOUS FEW Normal (applies [facility] to non-numeric (Ammir results) Charles Physician) ID Date Data Source [id number] 10/14/2019 12:00:00 AM EDT [facility] (Ammir Charles Physician) Name Value Range Interpretation Description Data Sup porting Code Source(s) Document(s ) BNP, B-TYPE 52.8 Normal (applies [facility] NATRIURETIC pg/mL to non-numeric (Ammir results) Charles Physician) ID Date Data Source [id number] 10/14/2019 12:00:00 AM EDT [facility] (Ammir Charles Physician) Name Value Range Interpretation Description Data Sup porting Code Source(s) Document(s ) Hemoglobin A1c 5.7 % Above high normal [facility] (Ammir in Blood Charles Physician) ID Date Data Source [id number] 10/14/2019 12:00:00 AM EDT [facility] (Ammir Charles Physician) Name Value Range Interpretation Description Data Sup porting Code Source(s) Document(s ) VITAMIN D 32.27 Below low normal [facility] (Ammir 25-HYDROXY ng/mL Charles Physician) ID Date Data Source [id number] 10/14/2019 12:00:00 AM EDT [facility] (Ammir Charles Physician) Name Value Range Interpretation Description Data Sup porting Code Source(s) Document(s ) FOLATE SERUM 15.6 Normal (applies to [facility] ( Ammir ng/mL non-numeric Charles results) Physician) VITAMIN B12 924 pg/mL Above high normal [facility] (Am teetee Charles Physician) ID Date Data Source [id number] 10/14/2019 12:00:00 AM EDT [facility] (Ammir Charles Physician) Name Value Range Interpretation Description Data Sup porting Code Source(s) Document(s ) WBC 6.8 Normal (applies [facility] 10(3)/uL to non-numeric (Ammir results) Charles Physician) RBC 4.4 Normal (applies [facility] 10(6)/uL to non-numeric (Ammir results) Charles Physician) Hemoglobin 11.7 g/dL Below low normal [facility] [Mass/volume] (Ammir in Mixed venous Charles blood by Physician) Oximetry Hematocrit 36.0 % Normal (applies [facility] [Pure volume to non-numeric (Ammir fraction] of results) Charles Blood by Physician) Automated count MCV 82.8 fL Normal (applies [facility] to non-numeric (Ammir results) Charles Physician) MCH 27 pg Normal (applies [facility] to non-numeric (Ammir results) Charles Physician) MCHC 33 g/dL Normal (applies [facility] to non-numeric (Ammir results) Charles Physician) RDWSD 41.6 fL Normal (applies [facility] to non-numeric (Ammir results) Charles Physician) RDWCV 13.9 % Normal (applies [facility] to non-numeric (Ammir results) Charles Physician) Platelet Count 362 Normal (applies [facility] 10(3)/uL to non-numeric (Ammir results) Charles Physician) MPV 10.7 fL Normal (applies [facility] to non-numeric (Ammir results) Charles Physician) Neutrophil Abs 3.86 Normal (applies [facility] 10(3)/uL to non-numeric (Ammir results) Charles Physician) Lymphocyte Abs 2.40 Normal (applies [facility] 10(3)/uL to non-numeric (Ammir results) Charles Physician) Monocyte Abs 0.48 Normal (applies [facility] 10(3)/uL to non-numeric (Ammir results) Charles Physician) Eosinophil Abs 0.07 Normal (applies [facility] 10(3)/uL to non-numeric (Ammir results) Charles Physician) Basophil Abs 0.03 Normal (applies [facility] 10(3)/uL to non-numeric (Ammir results) Charles Physician) Immature 0.01 Normal (applies [facility] Granulocyte Abs 10(3)/uL to non-numeric (Ammir results) Charles Physician) Neutrophil % 56.50 % Normal (applies [facility] to non-numeric (Ammir results) Charles Physician) Lymphocyte % 35 % Normal (applies [facility] to non-numeric (Ammir results) Charles Physician) Monocyte % 7.0 % Normal (applies [facility] to non-numeric (Ammir results) Charles Physician) Eosinophil % 1.0 % Normal (applies [facility] to non-numeric (Ammir results) Charles Physician) Basophil % 0.4 % Normal (applies [facility] to non-numeric (Ammir results) Charles Physician) Immature 0.10 % Normal (applies [facility] Granulocyte % to non-numeric (Ammir results) Charles Physician) NRBC % 0.0 % Normal (applies [facility] to non-numeric (Ammir results) Charles Physician) NRBC Abs 0.00 Normal (applies [facility] 10(3)/uL to non-numeric (Ammir results) Charles Physician) ID Date Data Source [id number] 10/14/2019 12:00:00 AM EDT [facility] (Ammir Charles Physician) Name Value Range Interpretation Description Data Sup porting Code Source(s) Document(s ) MICROALBUMIN 0.3 Normal (applies [facility] URINE mg/dL to non-numeric (Ammir results) Charles Physician) CREATININE, 62.9 Normal (applies [facility] URINE mg/dL to non-numeric (Ammir results) Charles Physician) MICROALBUMIN/CRE 4.8 mg/g Normal (applies [facility] ATININ RATIO creat to non-numeric (Ammir results) Charles Physician) ID Date Data Source [id number] 10/14/2019 12:00:00 AM EDT [facility] (Ammir Charles Physician) Name Value Range Interpretation Description Data Sup porting Code Source(s) Document(s ) TSH,3RD 1.59 Normal (applies to [facility] GENERATION uIU/mL non-numeric (Ammir results) Charles Physician) T4 FREE, 1.00 Normal (applies to [facility] THYROXINE ng/dL non-numeric (Ammir results) Charles Physician) ID Date Data Source [id number] 10/14/2019 12:00:00 AM EDT [facility] (Ammir Charles Physician) Name Value Range Interpretation Description Data Sup porting Code Source(s) Document(s ) Cholesterol 169 Normal (applies [facility] [Moles/volume] mg/dL to non-numeric (Ammir in Pericardial results) Charles fluid Physician) LDL CALCULATION 101.6 Normal (applies [facility] mg/dL to non-numeric (Ammir results) Charles Physician) CHOL/HDL RATIO 3.19 Normal (applies [facility] ratio to non-numeric (Ammir results) Charles Physician) HDL CHOLESTEROL 53 mg/dL Normal (applies [facility] to non-numeric (Ammir results) Charles Physician) VLDL CALCULATION 14.4 Normal (applies [facility] mg/dl to non-numeric (Ammir results) Charles Physician) TRIGLYCERIDES 72 mg/dL Normal (applies [facility] to non-numeric (Ammir results) Charles Physician) ID Date Data Source [id number] 10/04/2019 10:15:00 AM EDT [facility] Name Value Range Interpretation Code Description Data Faiza rce(s) Supporting Document(s ) HOLOGIC [place] SARS-CoV-2 TMA PCR This lab was ordered by [employer] and reported by [employer]. ID Date Data Source [id number] 09/27/2019 10:08:00 AM EDT [facility] Name Value Range Interpretation Code Description Data Faiza rce(s) Supporting Document(s ) HOLOGIC [place] SARS-CoV-2 TMA PCR This lab was ordered by [employer] and reported by [employer]. ID Date Data Source [id number] 06/09/2019 12:00:00 AM EDT [facility] Name Value Range Interpretation Code Description Data Faiza rce(s) Supporting Document(s ) 2019-nCoV [place] RNA XXX CARMEN+probe- Imp This lab was ordered by [facility] and reported by [employer] ID Date Data Source [id number] 01/07/2019 12:00:00 AM EST [facility] (Ammir Charles Physician) Name Value Range Interpretation Description Data Sup porting Code Source(s) Document(s ) QUANTIFERON NEGATIVE Normal (applies [facility] PLUS to non-numeric (Ammir results) Charles Physician) QFTPLUSNIL 0.03 IU/mL Normal (applies [facility] to non-numeric (Ammir results) Charles Physician) TB1 MINUS NIL 0.00 IU/mL Normal (applies [facility] to non-numeric (Ammir results) Charles Physician) TB2 MINUS NIL 0.01 IU/mL Normal (applies [facility] to non-numeric (Ammir results) Charles Physician) QFTPLUS 0.09 IU/mL Normal (applies [facility] MITOGEN MINUS to non-numeric (Ammir NIL results) Charles Physician) ID Date Data Source [id number] 01/07/2019 12:00:00 AM EST [facility] (Ammir Charles Physician) Name Value Range Interpretation Description Data Sup porting Code Source(s) Document(s ) QUANTIFERON NEGATIVE Normal (applies [facility] PLUS to non-numeric (Ammir results) Charles Physician) QFTPLUSNIL 0.03 IU/mL Normal (applies [facility] to non-numeric (Ammir results) Charles Physician) TB1 MINUS NIL 0.00 IU/mL Normal (applies [facility] to non-numeric (Ammir results) Charles Physician) TB2 MINUS NIL 0.01 IU/mL Normal (applies [facility] to non-numeric (Ammir results) Charles Physician) QFTPLUS 0.09 IU/mL Normal (applies [facility] MITOGEN MINUS to non-numeric (Ammir NIL results) Charles Physician) ID Date Data Source [id number] 01/07/2019 12:00:00 AM EST [facility] (Ammir Charles Physician) Name Value Range Interpretation Description Data Sup porting Code Source(s) Document(s ) QUANTIFERON NEGATIVE Normal (applies [facility] PLUS to non-numeric (Ammir results) Charles Physician) QFTPLUSNIL 0.03 IU/mL Normal (applies [facility] to non-numeric (Ammir results) Charles Physician) TB1 MINUS NIL 0.00 IU/mL Normal (applies [facility] to non-numeric (Ammir results) Charles Physician) QFTPLUS 0.09 IU/mL Normal (applies [facility] MITOGEN MINUS to non-numeric (Ammir NIL results) Charles Physician) TB2 MINUS NIL 0.01 IU/mL Normal (applies [facility] to non-numeric (Ammir results) Charles Physician) ID Date Data Source [id number] 01/07/2019 12:00:00 AM EST [facility] (Ammir Charles Physician) Name Value Range Interpretation Description Data Sup porting Code Source(s) Document(s ) QUANTIFERON NEGATIVE Normal (applies [facility] PLUS to non-numeric (Ammir results) Charles Physician) QFTPLUSNIL 0.03 IU/mL Normal (applies [facility] to non-numeric (Ammir results) Charles Physician) TB1 MINUS NIL 0.00 IU/mL Normal (applies [facility] to non-numeric (Ammir results) Charles Physician) TB2 MINUS NIL 0.01 IU/mL Normal (applies [facility] to non-numeric (Ammir results) Charles Physician) QFTPLUS 0.09 IU/mL Normal (applies [facility] MITOGEN MINUS to non-numeric (Ammir NIL results) Charles Physician) ID Date Data Source [id number] 01/07/2019 12:00:00 AM EST [facility] (Ammir Charles Physician) Name Value Range Interpretation Description Data Sup porting Code Source(s) Document(s ) QUANTIFERON NEGATIVE Normal (applies [facility] PLUS to non-numeric (Ammir results) Charles Physician) QFTPLUSNIL 0.03 IU/mL Normal (applies [facility] to non-numeric (Ammir results) Charles Physician) TB1 MINUS NIL 0.00 IU/mL Normal (applies [facility] to non-numeric (Ammir results) Charles Physician) TB2 MINUS NIL 0.01 IU/mL Normal (applies [facility] to non-numeric (Ammir results) Charles Physician) QFTPLUS 0.09 IU/mL Normal (applies [facility] MITOGEN MINUS to non-numeric (Ammir NIL results) Charles Physician) ID Date Data Source [id number] 12/24/2018 12:00:00 AM EDT [facility] (Ammir Charles Physician) Name Value Range Interpretation Description Data Sup porting Code Source(s) Document(s ) GLUCOSE 71 mg/dL Normal (applies [facility] NONFASTING,SERUM to non-numeric (Ammir results) Charles Physician) GLUCOSE 71 mg/dL Normal (applies [facility] NONFASTING,SERUM to non-numeric (Ammir results) Charles Physician) SODIUM, SERUM 137 Normal (applies [facility] mEq/L to non-numeric (Ammir results) Charles Physician) SODIUM, SERUM 137 Normal (applies [facility] mEq/L to non-numeric (Ammir results) Charles Physician) POTASSIUM, SERUM 4.4 Normal (applies [facility] mEq/L to non-numeric (Ammir results) Charles Physician) POTASSIUM, SERUM 4.4 Normal (applies [facility] mEq/L to non-numeric (Ammir results) Charles Physician) CHLORIDE, SERUM 108 Normal (applies [facility] mEq/L to non-numeric (Ammir results) Charles Physician) CHLORIDE, SERUM 108 Normal (applies [facility] mEq/L to non-numeric (Ammir results) Charles Physician) Carbon dioxide 26 mEq/L Normal (applies [facility] [VFr/PPres] in to non-numeric (Ammir Gas delivery results) Charles system Physician) Carbon dioxide 26 mEq/L Normal (applies [facility] [VFr/PPres] in to non-numeric (Ammir Gas delivery results) Charles system Physician) Anion gap in 7.4 Normal (applies [facility] Body fluid mEq/L to non-numeric (Ammir results) Charles Physician) Anion gap in 7.4 Normal (applies [facility] Body fluid mEq/L to non-numeric (Ammir results) Charles Physician) BLOOD UREA 23 mg/dL Normal (applies [facility] NITROGEN to non-numeric (Ammir results) Charles Physician) BLOOD UREA 23 mg/dL Normal (applies [facility] NITROGEN to non-numeric (Ammir results) Charles Physician) CREATININE, 0.70 Normal (applies [facility] SERUM mg/dL to non-numeric (Ammir results) Charles Physician) CREATININE, 0.70 Normal (applies [facility] SERUM mg/dL to non-numeric (Ammir results) Charles Physician) CALCIUM, SERUM 9.2 Normal (applies [facility] mg/dL to non-numeric (Ammir results) Charles Physician) CALCIUM, SERUM 9.2 Normal (applies [facility] mg/dL to non-numeric (Ammir results) Charles Physician) TOTAL PROTEIN 7.0 g/dL Normal (applies [facility] to non-numeric (Ammir results) Charles Physician) TOTAL PROTEIN 7.0 g/dL Normal (applies [facility] to non-numeric (Ammir results) Charles Physician) Microalbumin 3.9 g/dL Normal (applies [facility] [Mass/time] in to non-numeric (Ammir Urine collected results) Charles for unspecified Physician) duration Microalbumin 3.9 g/dL Normal (applies [facility] [Mass/time] in to non-numeric (Ammir Urine collected results) Charles for unspecified Physician) duration Globulin 3.1 gldl Normal (applies [facility] [Mass/time] in to non-numeric (Ammir 24 hour Urine results) Charles Physician) Globulin 3.1 gldl Normal (applies [facility] [Mass/time] in to non-numeric (Ammir 24 hour Urine results) Charles Physician) A/G RATIO 1.26 Normal (applies [facility] g/dl to non-numeric (Ammir results) Charles Physician) A/G RATIO 1.26 Normal (applies [facility] g/dl to non-numeric (Ammir results) Charles Physician) BILIRUBIN, TOTAL 0.2 Below low normal [facility] mg/dL (Ammir Charles Physician) BILIRUBIN, TOTAL 0.2 Below low normal [facility] mg/dL (Ammir Charles Physician) ALKALINE 88 U/L Normal (applies [facility] PHOSPHATASE, ALP to non-numeric (Ammir results) Charles Physician) ALKALINE 88 U/L Normal (applies [facility] PHOSPHATASE, ALP to non-numeric (Ammir results) Charles Physician) ALT (SGPT) 18 U/L Normal (applies [facility] to non-numeric (Ammir results) Charles Physician) ALT (SGPT) 18 U/L Normal (applies [facility] to non-numeric (Ammir results) Charles Physician) AST 23 U/L Normal (applies [facility] to non-numeric (Ammir results) Charles Physician) AST 23 U/L Normal (applies [facility] to non-numeric (Ammir results) Charles Physician) EGFR NON AFR 95 Normal (applies [facility] SUDANESE mL/min/1 to non-numeric (Ammir .73m2 results) Charles Physician) EGFR NON AFR 95 Normal (applies [facility] SUDANESE mL/min/1 to non-numeric (Ammir .73m2 results) Charles Physician) EGFR AFR 114 Normal (applies [facility] SUDANESE mL/min/1 to non-numeric (Ammir .73m2 results) Charles Physician) EGFR AFR 114 Normal (applies [facility] SUDANESE mL/min/1 to non-numeric (Ammir .73m2 results) Charles Physician) ID Date Data Source [id number] 12/24/2018 12:00:00 AM EDT [facility] (Ammir Charles Physician) Name Value Range Interpretation Code Description Data Faiza rce(s) Supporting Document(s ) IRON, 42 ug/dL Normal (applies to [facility] (Amm ir TOTAL non-numeric Charles results) Physician) IRON, 42 ug/dL Normal (applies to [facility] (Amm ir TOTAL non-numeric Charles results) Physician) ID Date Data Source [id number] 12/24/2018 12:00:00 AM EDT [facility] (Ammir Charles Physician) Name Value Range Interpretation Code Description Data Faiza rce(s) Supporting Document(s ) IRON, 42 ug/dL Normal (applies to [facility] (Amm ir TOTAL non-numeric Charles results) Physician) IRON, 42 ug/dL Normal (applies to [facility] (Amm ir TOTAL non-numeric Charles results) Physician) ID Date Data Source [id number] 12/24/2018 12:00:00 AM EDT [facility] (Ammir Charles Physician) Name Value Range Interpretation Description Data Sup porting Code Source(s) Document(s ) Hemoglobin A1c 5.7 % Above high normal [facility] (Ammir in Blood Charles Physician) Hemoglobin A1c 5.7 % Above high normal [facility] (Ammir in Blood Charles Physician) ID Date Data Source [id number] 12/24/2018 12:00:00 AM EDT [facility] (Ammir Charles Physician) Name Value Range Interpretation Description Data Sup porting Code Source(s) Document(s ) Hemoglobin A1c 5.7 % Above high normal [facility] (Ammir in Blood Charles Physician) Hemoglobin A1c 5.7 % Above high normal [facility] (Ammir in Blood Charles Physician) ID Date Data Source [id number] 12/24/2018 12:00:00 AM EDT [facility] (Ammir Charles Physician) Name Value Range Interpretation Description Data Sup porting Code Source(s) Document(s ) VITAMIN D 26.99 Below low normal [facility] (Ammir 25-HYDROXY ng/mL Charles Physician) VITAMIN D 26.99 Below low normal [facility] (Ammir 25-HYDROXY ng/mL Charles Physician) ID Date Data Source [id number] 12/24/2018 12:00:00 AM EDT [facility] (Ammir Charles Physician) Name Value Range Interpretation Description Data Sup porting Code Source(s) Document(s ) VITAMIN D 26.99 Below low normal [facility] (Ammir 25-HYDROXY ng/mL Charles Physician) VITAMIN D 26.99 Below low normal [facility] (Ammir 25-HYDROXY ng/mL Charles Physician) ID Date Data Source [id number] 12/24/2018 12:00:00 AM EDT [facility] (Ammir Charles Physician) Name Value Range Interpretation Description Data Sup porting Code Source(s) Document(s ) FOLATE SERUM 25.9 Normal (applies to [facility] ( Ammir ng/mL non-numeric Charles results) Physician) FOLATE SERUM 25.9 Normal (applies to [facility] ( Ammir ng/mL non-numeric Charles results) Physician) VITAMIN B12 881 pg/mL Normal (applies to [facility] (A mmir non-numeric Charles results) Physician) VITAMIN B12 881 pg/mL Normal (applies to [facility] (A mmir non-numeric Charles results) Physician) ID Date Data Source [id number] 12/24/2018 12:00:00 AM EDT [facility] (Ammir Charles Physician) Name Value Range Interpretation Description Data Sup porting Code Source(s) Document(s ) FOLATE SERUM 25.9 Normal (applies to [facility] ( Ammir ng/mL non-numeric Charles results) Physician) FOLATE SERUM 25.9 Normal (applies to [facility] ( Ammir ng/mL non-numeric Charles results) Physician) VITAMIN B12 881 pg/mL Normal (applies to [facility] (A mmir non-numeric Charles results) Physician) VITAMIN B12 881 pg/mL Normal (applies to [facility] (A mmir non-numeric Charles results) Physician) ID Date Data Source [id number] 12/24/2018 12:00:00 AM EDT [facility] (Ammir Charles Physician) Name Value Range Interpretation Description Data Sup porting Code Source(s) Document(s ) WBC 7.3 Normal (applies [facility] 10(3)/uL to non-numeric (Ammir results) Charles Physician) WBC 7.3 Normal (applies [facility] 10(3)/uL to non-numeric (Ammir results) Charles Physician) RBC 4.0 Normal (applies [facility] 10(6)/uL to non-numeric (Ammir results) Charles Physician) RBC 4.0 Normal (applies [facility] 10(6)/uL to non-numeric (Ammir results) Charles Physician) Hemoglobin 10.9 g/dL Below low normal [facility] [Mass/volume] (Ammir in Mixed venous Charles blood by Physician) Oximetry Hemoglobin 10.9 g/dL Below low normal [facility] [Mass/volume] (Ammir in Mixed venous Charles blood by Physician) Oximetry Hematocrit 33.9 % Below low normal [facility] [Pure volume (Ammir fraction] of Charles Blood by Physician) Automated count Hematocrit 33.9 % Below low normal [facility] [Pure volume (Ammir fraction] of Charles Blood by Physician) Automated count MCV 84.8 fL Normal (applies [facility] to non-numeric (Ammir results) Charles Physician) MCV 84.8 fL Normal (applies [facility] to non-numeric (Ammir results) Charles Physician) MCH 27 pg Normal (applies [facility] to non-numeric (Ammir results) Charles Physician) MCH 27 pg Normal (applies [facility] to non-numeric (Ammir results) Charles Physician) MCHC 32 g/dL Normal (applies [facility] to non-numeric (Ammir results) Charles Physician) MCHC 32 g/dL Normal (applies [facility] to non-numeric (Ammir results) Charles Physician) RDWSD 42.3 fL Normal (applies [facility] to non-numeric (Ammir results) Charles Physician) RDWSD 42.3 fL Normal (applies [facility] to non-numeric (Ammir results) Charles Physician) RDWCV 13.7 % Normal (applies [facility] to non-numeric (Ammir results) Charles Physician) RDWCV 13.7 % Normal (applies [facility] to non-numeric (Ammir results) Charles Physician) Platelet Count 330 Normal (applies [facility] 10(3)/uL to non-numeric (Ammir results) Charles Physician) Platelet Count 330 Normal (applies [facility] 10(3)/uL to non-numeric (Ammir results) Charles Physician) MPV 10.7 fL Normal (applies [facility] to non-numeric (Ammir results) Charles Physician) MPV 10.7 fL Normal (applies [facility] to non-numeric (Ammir results) Charles Physician) Neutrophil Abs 3.74 Normal (applies [facility] 10(3)/uL to non-numeric (Ammir results) Charles Physician) Neutrophil Abs 3.74 Normal (applies [facility] 10(3)/uL to non-numeric (Ammir results) Charles Physician) Lymphocyte Abs 2.95 Normal (applies [facility] 10(3)/uL to non-numeric (Ammir results) Charles Physician) Lymphocyte Abs 2.95 Normal (applies [facility] 10(3)/uL to non-numeric (Ammir results) Charles Physician) Monocyte Abs 0.42 Normal (applies [facility] 10(3)/uL to non-numeric (Ammir results) Charles Physician) Monocyte Abs 0.42 Normal (applies [facility] 10(3)/uL to non-numeric (Ammir results) Charles Physician) Eosinophil Abs 0.09 Normal (applies [facility] 10(3)/uL to non-numeric (Ammir results) Charles Physician) Eosinophil Abs 0.09 Normal (applies [facility] 10(3)/uL to non-numeric (Ammir results) Charles Physician) Basophil Abs 0.06 Normal (applies [facility] 10(3)/uL to non-numeric (Ammir results) Charles Physician) Basophil Abs 0.06 Normal (applies [facility] 10(3)/uL to non-numeric (Ammir results) Charles Physician) Immature 0.01 Normal (applies [facility] Granulocyte Abs 10(3)/uL to non-numeric (Ammir results) Charles Physician) Immature 0.01 Normal (applies [facility] Granulocyte Abs 10(3)/uL to non-numeric (Ammir results) Charles Physician) Neutrophil % 51.50 % Normal (applies [facility] to non-numeric (Ammir results) Charles Physician) Neutrophil % 51.50 % Normal (applies [facility] to non-numeric (Ammir results) Charles Physician) Lymphocyte % 41 % Normal (applies [facility] to non-numeric (Ammir results) Charles Physician) Lymphocyte % 41 % Normal (applies [facility] to non-numeric (Ammir results) Charles Physician) Monocyte % 5.8 % Normal (applies [facility] to non-numeric (Ammir results) Charles Physician) Monocyte % 5.8 % Normal (applies [facility] to non-numeric (Ammir results) Charles Physician) Eosinophil % 1.2 % Normal (applies [facility] to non-numeric (Ammir results) Charles Physician) Eosinophil % 1.2 % Normal (applies [facility] to non-numeric (Ammir results) Charles Physician) Basophil % 0.8 % Normal (applies [facility] to non-numeric (Ammir results) Charles Physician) Basophil % 0.8 % Normal (applies [facility] to non-numeric (Ammir results) Charles Physician) Immature 0.10 % Normal (applies [facility] Granulocyte % to non-numeric (Ammir results) Charles Physician) Immature 0.10 % Normal (applies [facility] Granulocyte % to non-numeric (Ammir results) Charles Physician) NRBC % 0.0 % Normal (applies [facility] to non-numeric (Ammir results) Charles Physician) NRBC % 0.0 % Normal (applies [facility] to non-numeric (Ammir results) Charles Physician) NRBC Abs 0.00 Normal (applies [facility] 10(3)/uL to non-numeric (Ammir results) Charles Physician) NRBC Abs 0.00 Normal (applies [facility] 10(3)/uL to non-numeric (Ammir results) Charles Physician) ID Date Data Source [id number] 12/24/2018 12:00:00 AM EDT [facility] (Ammir Charles Physician) Name Value Range Interpretation Description Data Sup porting Code Source(s) Document(s ) GLUCOSE 71 mg/dL Normal (applies [facility] NONFASTING,SERUM to non-numeric (Ammir results) [facility] Physician) GLUCOSE 71 mg/dL Normal (applies [facility] NONFASTING,SERUM to non-numeric (Ammir results) [facility] Physician) SODIUM, SERUM 137 Normal (applies [facility] mEq/L to non-numeric (Ammir results) [facility] Physician) SODIUM, SERUM 137 Normal (applies [facility] mEq/L to non-numeric (Ammir results) [facility] Physician) POTASSIUM, SERUM 4.4 Normal (applies [facility] mEq/L to non-numeric (Ammir results) [facility] Physician) POTASSIUM, SERUM 4.4 Normal (applies [facility] mEq/L to non-numeric (Ammir results) Charles Physician) CHLORIDE, SERUM 108 Normal (applies [facility] mEq/L to non-numeric (Ammir results) [facility] Physician) CHLORIDE, SERUM 108 Normal (applies [facility] mEq/L to non-numeric (Ammir results) [facility] Physician) Carbon dioxide 26 mEq/L Normal (applies [facility] [VFr/PPres] in to non-numeric (Ammir Gas delivery results) Charles system Physician) Carbon dioxide 26 mEq/L Normal (applies [facility] [VFr/PPres] in to non-numeric (Ammir Gas delivery results) [facility] system Physician) Anion gap in 7.4 Normal (applies [facility] Body fluid mEq/L to non-numeric (Ammir results) [facility] Physician) Anion gap in 7.4 Normal (applies [facility] Body fluid mEq/L to non-numeric (Ammir results) [facility] Physician) BLOOD UREA 23 mg/dL Normal (applies [facility] NITROGEN to non-numeric (Ammir results) [facility] Physician) BLOOD UREA 23 mg/dL Normal (applies [facility] NITROGEN to non-numeric (Ammir results) [facility] Physician) CREATININE, 0.70 Normal (applies [facility] SERUM mg/dL to non-numeric (Ammir results) Charles Physician) CREATININE, 0.70 Normal (applies [facility] SERUM mg/dL to non-numeric (Ammir results) [facility] Physician) CALCIUM, SERUM 9.2 Normal (applies [facility] mg/dL to non-numeric (Ammir results) Charles Physician) CALCIUM, SERUM 9.2 Normal (applies [facility] mg/dL to non-numeric (Ammir results) [facility] Physician) TOTAL PROTEIN 7.0 g/dL Normal (applies [facility] to non-numeric (Ammir results) [facility] Physician) TOTAL PROTEIN 7.0 g/dL Normal (applies [facility] to non-numeric (Ammir results) [facility] Physician) Microalbumin 3.9 g/dL Normal (applies [facility] [Mass/time] in to non-numeric (Ammir Urine collected results) Charles for unspecified Physician) duration Microalbumin 3.9 g/dL Normal (applies [facility] [Mass/time] in to non-numeric (Ammir Urine collected results) Charles for unspecified Physician) duration Globulin 3.1 gldl Normal (applies [facility] [Mass/time] in to non-numeric (Ammir 24 hour Urine results) Charles Physician) Globulin 3.1 gldl Normal (applies [facility] [Mass/time] in to non-numeric (Ammir 24 hour Urine results) Charles Physician) A/G RATIO 1.26 Normal (applies [facility] g/dl to non-numeric (Ammir results) [facility] Physician) A/G RATIO 1.26 Normal (applies [facility] g/dl to non-numeric (Ammir results) [facility] Physician) BILIRUBIN, TOTAL 0.2 Below low normal [facility] mg/dL (Ammir Charles Physician) BILIRUBIN, TOTAL 0.2 Below low normal [facility] mg/dL (Ammir Charles Physician) ALKALINE 88 U/L Normal (applies [facility] PHOSPHATASE, ALP to non-numeric (Ammir results) Charles Physician) ALKALINE 88 U/L Normal (applies [facility] PHOSPHATASE, ALP to non-numeric (Ammir results) Charles Physician) ALT (SGPT) 18 U/L Normal (applies [facility] to non-numeric (Ammir results) Charles Physician) ALT (SGPT) 18 U/L Normal (applies [facility] to non-numeric (Ammir results) Charles Physician) AST 23 U/L Normal (applies [facility] to non-numeric (Ammir results) [facility] Physician) AST 23 U/L Normal (applies [facility] to non-numeric (Ammir results) [facility] Physician) EGFR NON AFR 95 Normal (applies [facility] SUDANESE mL/min/1 to non-numeric (Ammir .73m2 results) [facility] Physician) EGFR NON AFR 95 Normal (applies [facility] SUDANESE mL/min/1 to non-numeric (Ammir .73m2 results) [facility] Physician) EGFR AFR 114 Normal (applies [facility] SUDANESE mL/min/1 to non-numeric (Ammir .73m2 results) [facility] Physician) EGFR AFR 114 Normal (applies [facility] SUDANESE mL/min/1 to non-numeric (Ammir .73m2 results) Charles Physician) ID Date Data Source [id number] 12/24/2018 12:00:00 AM EDT [facility] (Ammir [facility] Physician) Name Value Range Interpretation Description Data Sup porting Code Source(s) Document(s ) WBC 7.3 Normal (applies [facility] 10(3)/uL to non-numeric (Ammir results) [facility] Physician) WBC 7.3 Normal (applies [facility] 10(3)/uL to non-numeric (Ammir results) [facility] Physician) RBC 4.0 Normal (applies [facility] 10(6)/uL to non-numeric (Ammir results) [facility] Physician) RBC 4.0 Normal (applies [facility] 10(6)/uL to non-numeric (Ammir results) [facility] Physician) Hemoglobin 10.9 g/dL Below low normal [facility] [Mass/volume] (Ammir in Mixed venous Charles blood by Physician) Oximetry Hemoglobin 10.9 g/dL Below low normal [facility] [Mass/volume] (Ammir in Mixed venous Charles blood by Physician) Oximetry Hematocrit 33.9 % Below low normal [facility] [Pure volume (Ammir fraction] of [facility] Blood by Physician) Automated count Hematocrit 33.9 % Below low normal [facility] [Pure volume (Ammir fraction] of [facility] Blood by Physician) Automated count MCV 84.8 fL Normal (applies [facility] to non-numeric (Ammir results) [facility] Physician) MCV 84.8 fL Normal (applies [facility] to non-numeric (Ammir results) Charles Physician) MCH 27 pg Normal (applies [facility] to non-numeric (Ammir results) Charles Physician) MCH 27 pg Normal (applies [facility] to non-numeric (Ammir results) [facility] Physician) MCHC 32 g/dL Normal (applies [facility] to non-numeric (Ammir results) Charles Physician) MCHC 32 g/dL Normal (applies [facility] to non-numeric (Ammir results) [facility] Physician) RDWSD 42.3 fL Normal (applies [facility] to non-numeric (Ammir results) [facility] Physician) RDWSD 42.3 fL Normal (applies [facility] to non-numeric (Ammir results) [facility] Physician) RDWCV 13.7 % Normal (applies [facility] to non-numeric (Ammir results) [facility] Physician) RDWCV 13.7 % Normal (applies [facility] to non-numeric (Ammir results) [facility] Physician) Platelet Count 330 Normal (applies [facility] 10(3)/uL to non-numeric (Ammir results) [facility] Physician) Platelet Count 330 Normal (applies [facility] 10(3)/uL to non-numeric (Ammir results) [facility] Physician) MPV 10.7 fL Normal (applies [facility] to non-numeric (Ammir results) [facility] Physician) MPV 10.7 fL Normal (applies [facility] to non-numeric (Ammir results) [facility] Physician) Neutrophil Abs 3.74 Normal (applies [facility] 10(3)/uL to non-numeric (Ammir results) [facility] Physician) Neutrophil Abs 3.74 Normal (applies [facility] 10(3)/uL to non-numeric (Ammir results) [facility] Physician) Lymphocyte Abs 2.95 Normal (applies [facility] 10(3)/uL to non-numeric (Ammir results) [facility] Physician) Lymphocyte Abs 2.95 Normal (applies [facility] 10(3)/uL to non-numeric (Ammir results) [facility] Physician) Monocyte Abs 0.42 Normal (applies [facility] 10(3)/uL to non-numeric (Ammir results) [facility] Physician) Monocyte Abs 0.42 Normal (applies [facility] 10(3)/uL to non-numeric (Ammir results) [facility] Physician) Eosinophil Abs 0.09 Normal (applies [facility] 10(3)/uL to non-numeric (Ammir results) [facility] Physician) Eosinophil Abs 0.09 Normal (applies [facility] 10(3)/uL to non-numeric (Ammir results) [facility] Physician) Basophil Abs 0.06 Normal (applies [facility] 10(3)/uL to non-numeric (Ammir results) [facility] Physician) Basophil Abs 0.06 Normal (applies [facility] 10(3)/uL to non-numeric (Ammir results) [facility] Physician) Immature 0.01 Normal (applies [facility] Granulocyte Abs 10(3)/uL to non-numeric (Ammir results) Charles Physician) Immature 0.01 Normal (applies [facility] Granulocyte Abs 10(3)/uL to non-numeric (Ammir results) Charles Physician) Neutrophil % 51.50 % Normal (applies [facility] to non-numeric (Ammir results) [facility] Physician) Neutrophil % 51.50 % Normal (applies [facility] to non-numeric (Ammir results) Charles Physician) Lymphocyte % 41 % Normal (applies [facility] to non-numeric (Ammir results) [facility] Physician) Lymphocyte % 41 % Normal (applies [facility] to non-numeric (Ammir results) [facility] Physician) Monocyte % 5.8 % Normal (applies [facility] to non-numeric (Ammir results) [facility] Physician) Monocyte % 5.8 % Normal (applies [facility] to non-numeric (Ammir results) [facility] Physician) Eosinophil % 1.2 % Normal (applies [facility] to non-numeric (Ammir results) [facility] Physician) Eosinophil % 1.2 % Normal (applies [facility] to non-numeric (Ammir results) [facility] Physician) Basophil % 0.8 % Normal (applies [facility] to non-numeric (Ammir results) [facility] Physician) Basophil % 0.8 % Normal (applies [facility] to non-numeric (Ammir results) [facility] Physician) Immature 0.10 % Normal (applies [facility] Granulocyte % to non-numeric (Ammir results) Charles Physician) Immature 0.10 % Normal (applies [facility] Granulocyte % to non-numeric (Ammir results) Charles Physician) NRBC % 0.0 % Normal (applies [facility] to non-numeric (Ammir results) Charles Physician) NRBC % 0.0 % Normal (applies [facility] to non-numeric (Ammir results) [facility] Physician) NRBC Abs 0.00 Normal (applies [facility] 10(3)/uL to non-numeric (Ammir results) [facility] Physician) NRBC Abs 0.00 Normal (applies [facility] 10(3)/uL to non-numeric (Ammir results) [facility] Physician) ID Date Data Source [id number] 12/24/2018 12:00:00 AM EDT [facility] (Ammir [facility] Physician) Name Value Range Interpretation Description Data Sup porting Code Source(s) Document(s ) Transferrin 267 mg/dL Normal (applies [facility] [Mass/time] in to non-numeric (Ammir 24 hour Urine results) [facility] Physician) Transferrin 267 mg/dL Normal (applies [facility] [Mass/time] in to non-numeric (Ammir 24 hour Urine results) Charles Physician) TIBC 374.4 Normal (applies [facility] ug/dL to non-numeric (Ammir results) Charles Physician) TIBC 374.4 Normal (applies [facility] ug/dL to non-numeric (Ammir results) Charles Physician) UIBC 332.4 Normal (applies [facility] ug/dL to non-numeric (Ammir results) Charles Physician) UIBC 332.4 Normal (applies [facility] ug/dL to non-numeric (Ammir results) Charles Physician) %SATURATION 11.2 % Below low normal [facility] (Ammir Charles Physician) %SATURATION 11.2 % Below low normal [facility] (Ammir Charles Physician) ID Date Data Source [id number] 12/24/2018 12:00:00 AM EDT [facility] (Ammir Charles Physician) Name Value Range Interpretation Description Data Sup porting Code Source(s) Document(s ) Transferrin 267 mg/dL Normal (applies [facility] [Mass/time] in to non-numeric (Ammir 24 hour Urine results) Charles Physician) Transferrin 267 mg/dL Normal (applies [facility] [Mass/time] in to non-numeric (Ammir 24 hour Urine results) Charles Physician) TIBC 374.4 Normal (applies [facility] ug/dL to non-numeric (Ammir results) Charles Physician) TIBC 374.4 Normal (applies [facility] ug/dL to non-numeric (Ammir results) Charles Physician) UIBC 332.4 Normal (applies [facility] ug/dL to non-numeric (Ammir results) [facility] Physician) UIBC 332.4 Normal (applies [facility] ug/dL to non-numeric (Ammir results) Charles Physician) %SATURATION 11.2 % Below low normal [facility] (Ammir Charles Physician) %SATURATION 11.2 % Below low normal [facility] (Ammir Charles Physician) ID Date Data Source [id number] 12/24/2018 12:00:00 AM EDT [facility] (Ammir [facility] Physician) Name Value Range Interpretation Description Data Sup porting Code Source(s) Document(s ) Ferritin 14.4 Normal (applies to [facility] (Amm ir [Interpretat ng/mL non-numeric Charles ion] in results) Physician) Blood Ferritin 14.4 Normal (applies to [facility] (Amm ir [Interpretat ng/mL non-numeric Charles ion] in results) Physician) Blood ID Date Data Source [id number] 12/24/2018 12:00:00 AM EDT [facility] (Ammir [facility] Physician) Name Value Range Interpretation Description Data Sup porting Code Source(s) Document(s ) Ferritin 14.4 Normal (applies to [facility] (Amm ir [Interpretat ng/mL non-numeric Charles ion] in results) Physician) Blood Ferritin 14.4 Normal (applies to [facility] (Amm ir [Interpretat ng/mL non-numeric Charles ion] in results) Physician) Blood ID Date Data Source [id number] 12/24/2018 12:00:00 AM EDT [facility] (Ammir [facility] Physician) Name Value Range Interpretation Description Data Sup porting Code Source(s) Document(s ) T4 FREE, 0.85 Below low normal [facility] THYROXINE ng/dL (Ammir [facility] Physician) T4 FREE, 0.85 Below low normal [facility] THYROXINE ng/dL (Ammir Charles Physician) TSH,3RD 1.60 Normal (applies to [facility] GENERATION uIU/mL non-numeric (Ammir results) [facility] Physician) TSH,3RD 1.60 Normal (applies to [facility] GENERATION uIU/mL non-numeric (Ammir results) [facility] Physician) ID Date Data Source [id number] 12/24/2018 12:00:00 AM EDT [facility] (Ammir [facility] Physician) Name Value Range Interpretation Description Data Sup porting Code Source(s) Document(s ) T4 FREE, 0.85 Below low normal [facility] THYROXINE ng/dL (Ammir Charles Physician) T4 FREE, 0.85 Below low normal [facility] THYROXINE ng/dL (Ammir Charles Physician) TSH,3RD 1.60 Normal (applies to [facility] GENERATION uIU/mL non-numeric (Ammir results) Charles Physician) TSH,3RD 1.60 Normal (applies to [facility] GENERATION uIU/mL non-numeric (Ammir results) [facility] Physician) ID Date Data Source [id number] 12/24/2018 12:00:00 AM EDT [facility] (Ammir [facility] Physician) Name Value Range Interpretation Description Data Sup porting Code Source(s) Document(s ) Cholesterol 132 Normal (applies [facility] [Moles/volume] mg/dL to non-numeric (Ammir in Pericardial results) Charles fluid Physician) Cholesterol 132 Normal (applies [facility] [Moles/volume] mg/dL to non-numeric (Ammir in Pericardial results) Charles fluid Physician) LDL CALCULATION 68.0 Normal (applies [facility] mg/dL to non-numeric (Ammir results) Charles Physician) LDL CALCULATION 68.0 Normal (applies [facility] mg/dL to non-numeric (Ammir results) Charles Physician) CHOL/HDL RATIO 2.40 Normal (applies [facility] ratio to non-numeric (Ammir results) Charles Physician) CHOL/HDL RATIO 2.40 Normal (applies [facility] ratio to non-numeric (Ammir results) Charles Physician) HDL CHOLESTEROL 55 mg/dL Normal (applies [facility] to non-numeric (Ammir results) Charles Physician) HDL CHOLESTEROL 55 mg/dL Normal (applies [facility] to non-numeric (Ammir results) Charles Physician) VLDL CALCULATION 9.0 Normal (applies [facility] mg/dl to non-numeric (Ammir results) Charles Physician) VLDL CALCULATION 9.0 Normal (applies [facility] mg/dl to non-numeric (Ammir results) Charles Physician) TRIGLYCERIDES 45 mg/dL Normal (applies [facility] to non-numeric (Ammir results) Charles Physician) TRIGLYCERIDES 45 mg/dL Normal (applies [facility] to non-numeric (Ammir results) Charles Physician) ID Date Data Source [id number] 12/24/2018 12:00:00 AM EDT [facility] (Ammir Charles Physician) Name Value Range Interpretation Description Data Sup porting Code Source(s) Document(s ) Cholesterol 132 Normal (applies [facility] [Moles/volume] mg/dL to non-numeric (Ammir in Pericardial results) Charles fluid Physician) Cholesterol 132 Normal (applies [facility] [Moles/volume] mg/dL to non-numeric (Ammir in Pericardial results) Charles fluid Physician) LDL CALCULATION 68.0 Normal (applies [facility] mg/dL to non-numeric (Ammir results) Charles Physician) LDL CALCULATION 68.0 Normal (applies [facility] mg/dL to non-numeric (Ammir results) Charles Physician) CHOL/HDL RATIO 2.40 Normal (applies [facility] ratio to non-numeric (Ammir results) Charles Physician) CHOL/HDL RATIO 2.40 Normal (applies [facility] ratio to non-numeric (Ammir results) Charles Physician) HDL CHOLESTEROL 55 mg/dL Normal (applies [facility] to non-numeric (Ammir results) Charles Physician) HDL CHOLESTEROL 55 mg/dL Normal (applies [facility] to non-numeric (Ammir results) Charles Physician) VLDL CALCULATION 9.0 Normal (applies [facility] mg/dl to non-numeric (Ammir results) Charles Physician) VLDL CALCULATION 9.0 Normal (applies [facility] mg/dl to non-numeric (Ammir results) Charles Physician) TRIGLYCERIDES 45 mg/dL Normal (applies [facility] to non-numeric (Ammir results) Charles Physician) TRIGLYCERIDES 45 mg/dL Normal (applies [facility] to non-numeric (Ammir results) Charles Physician) ID Date Data Source [id number] 12/24/2018 12:00:00 AM EDT [facility] (Ammir Charles Physician) Name Value Range Interpretation Description Data Sup porting Code Source(s) Document(s ) Transferrin 267 mg/dL Normal (applies [facility] [Mass/time] in to non-numeric (Ammir 24 hour Urine results) Charles Physician) Transferrin 267 mg/dL Normal (applies [facility] [Mass/time] in to non-numeric (Ammir 24 hour Urine results) Charles Physician) TIBC 374.4 Normal (applies [facility] ug/dL to non-numeric (Ammir results) Charles Physician) TIBC 374.4 Normal (applies [facility] ug/dL to non-numeric (Ammir results) Charles Physician) UIBC 332.4 Normal (applies [facility] ug/dL to non-numeric (Ammir results) Charles Physician) UIBC 332.4 Normal (applies [facility] ug/dL to non-numeric (Ammir results) Charles Physician) %SATURATION 11.2 % Below low normal [facility] (Ammir Charles Physician) %SATURATION 11.2 % Below low normal [facility] (Ammir Charles Physician) ID Date Data Source [id number] 12/24/2018 12:00:00 AM EDT [facility] (Ammir Charles Physician) Name Value Range Interpretation Description Data Sup porting Code Source(s) Document(s ) Transferrin 267 mg/dL Normal (applies [facility] [Mass/time] in to non-numeric (Ammir 24 hour Urine results) Charles Physician) Transferrin 267 mg/dL Normal (applies [facility] [Mass/time] in to non-numeric (Ammir 24 hour Urine results) Charles Physician) TIBC 374.4 Normal (applies [facility] ug/dL to non-numeric (Ammir results) Charles Physician) TIBC 374.4 Normal (applies [facility] ug/dL to non-numeric (Ammir results) Charles Physician) UIBC 332.4 Normal (applies [facility] ug/dL to non-numeric (Ammir results) Charles Physician) UIBC 332.4 Normal (applies [facility] ug/dL to non-numeric (Ammir results) Charles Physician) %SATURATION 11.2 % Below low normal [facility] (Ammir Charles Physician) %SATURATION 11.2 % Below low normal [facility] (Ammir Charles Physician) ID Date Data Source [id number] 12/24/2018 12:00:00 AM EDT [facility] (Ammir Charles Physician) Name Value Range Interpretation Description Data Sup porting Code Source(s) Document(s ) Ferritin 14.4 Normal (applies to [facility] (Amm ir [Interpretat ng/mL non-numeric Charles ion] in results) Physician) Blood Ferritin 14.4 Normal (applies to [facility] (Amm ir [Interpretat ng/mL non-numeric Charles ion] in results) Physician) Blood ID Date Data Source [id number] 12/24/2018 12:00:00 AM EDT [facility] (Ammir Charles Physician) Name Value Range Interpretation Description Data Sup porting Code Source(s) Document(s ) Ferritin 14.4 Normal (applies to [facility] (Amm ir [Interpretat ng/mL non-numeric Charles ion] in results) Physician) Blood Ferritin 14.4 Normal (applies to [facility] (Amm ir [Interpretat ng/mL non-numeric Charles ion] in results) Physician) Blood ID Date Data Source [id number] 12/24/2018 12:00:00 AM EDT [facility] (Ammir Charles Physician) Name Value Range Interpretation Description Data Sup porting Code Source(s) Document(s ) T4 FREE, 0.85 Below low normal [facility] THYROXINE ng/dL (Ammir Charles Physician) T4 FREE, 0.85 Below low normal [facility] THYROXINE ng/dL (Ammir Charles Physician) TSH,3RD 1.60 Normal (applies to [facility] GENERATION uIU/mL non-numeric (Ammir results) Charles Physician) TSH,3RD 1.60 Normal (applies to [facility] GENERATION uIU/mL non-numeric (Ammir results) Charles Physician) ID Date Data Source [id number] 12/24/2018 12:00:00 AM EDT [facility] (Ammir Charles Physician) Name Value Range Interpretation Description Data Sup porting Code Source(s) Document(s ) T4 FREE, 0.85 Below low normal [facility] THYROXINE ng/dL (Ammir Charles Physician) T4 FREE, 0.85 Below low normal [facility] THYROXINE ng/dL (Ammir Charles Physician) TSH,3RD 1.60 Normal (applies to [facility] GENERATION uIU/mL non-numeric (Ammir results) Charles Physician) TSH,3RD 1.60 Normal (applies to [facility] GENERATION uIU/mL non-numeric (Ammir results) Charles Physician) ID Date Data Source [id number] 12/24/2018 12:00:00 AM EDT [facility] (Ammir Charles Physician) Name Value Range Interpretation Description Data Sup porting Code Source(s) Document(s ) GLUCOSE 71 mg/dL Normal (applies [facility] NONFASTING,SERUM to non-numeric (Ammir results) Charles Physician) GLUCOSE 71 mg/dL Normal (applies [facility] NONFASTING,SERUM to non-numeric (Ammir results) Charles Physician) SODIUM, SERUM 137 Normal (applies [facility] mEq/L to non-numeric (Ammir results) Charles Physician) SODIUM, SERUM 137 Normal (applies [facility] mEq/L to non-numeric (Ammir results) Charles Physician) POTASSIUM, SERUM 4.4 Normal (applies [facility] mEq/L to non-numeric (Ammir results) Charles Physician) POTASSIUM, SERUM 4.4 Normal (applies [facility] mEq/L to non-numeric (Ammir results) Charles Physician) CHLORIDE, SERUM 108 Normal (applies [facility] mEq/L to non-numeric (Ammir results) Charles Physician) CHLORIDE, SERUM 108 Normal (applies [facility] mEq/L to non-numeric (Ammir results) Charles Physician) Carbon dioxide 26 mEq/L Normal (applies [facility] [VFr/PPres] in to non-numeric (Ammir Gas delivery results) Charles system Physician) Carbon dioxide 26 mEq/L Normal (applies [facility] [VFr/PPres] in to non-numeric (Ammir Gas delivery results) Charles system Physician) Anion gap in 7.4 Normal (applies [facility] Body fluid mEq/L to non-numeric (Ammir results) Charles Physician) Anion gap in 7.4 Normal (applies [facility] Body fluid mEq/L to non-numeric (Ammir results) Charles Physician) BLOOD UREA 23 mg/dL Normal (applies [facility] NITROGEN to non-numeric (Ammir results) Charles Physician) BLOOD UREA 23 mg/dL Normal (applies [facility] NITROGEN to non-numeric (Ammir results) Charles Physician) CREATININE, 0.70 Normal (applies [facility] SERUM mg/dL to non-numeric (Ammir results) Charles Physician) CREATININE, 0.70 Normal (applies [facility] SERUM mg/dL to non-numeric (Ammir results) Charles Physician) CALCIUM, SERUM 9.2 Normal (applies [facility] mg/dL to non-numeric (Ammir results) Charles Physician) CALCIUM, SERUM 9.2 Normal (applies [facility] mg/dL to non-numeric (Ammir results) Charles Physician) TOTAL PROTEIN 7.0 g/dL Normal (applies [facility] to non-numeric (Ammir results) Charles Physician) TOTAL PROTEIN 7.0 g/dL Normal (applies [facility] to non-numeric (Ammir results) Charles Physician) Microalbumin 3.9 g/dL Normal (applies [facility] [Mass/time] in to non-numeric (Ammir Urine collected results) Charles for unspecified Physician) duration Microalbumin 3.9 g/dL Normal (applies [facility] [Mass/time] in to non-numeric (Ammir Urine collected results) Charles for unspecified Physician) duration Globulin 3.1 gldl Normal (applies [facility] [Mass/time] in to non-numeric (Ammir 24 hour Urine results) Charles Physician) Globulin 3.1 gldl Normal (applies [facility] [Mass/time] in to non-numeric (Ammir 24 hour Urine results) Charles Physician) A/G RATIO 1.26 Normal (applies [facility] g/dl to non-numeric (Ammir results) Charles Physician) A/G RATIO 1.26 Normal (applies [facility] g/dl to non-numeric (Ammir results) Charles Physician) BILIRUBIN, TOTAL 0.2 Below low normal [facility] mg/dL (Ammir Charles Physician) BILIRUBIN, TOTAL 0.2 Below low normal [facility] mg/dL (Ammir Charles Physician) ALKALINE 88 U/L Normal (applies [facility] PHOSPHATASE, ALP to non-numeric (Ammir results) Charles Physician) ALKALINE 88 U/L Normal (applies [facility] PHOSPHATASE, ALP to non-numeric (Ammir results) Charles Physician) ALT (SGPT) 18 U/L Normal (applies [facility] to non-numeric (Ammir results) Charles Physician) ALT (SGPT) 18 U/L Normal (applies [facility] to non-numeric (Ammir results) Charles Physician) AST 23 U/L Normal (applies [facility] to non-numeric (Ammir results) Charles Physician) AST 23 U/L Normal (applies [facility] to non-numeric (Ammir results) Charles Physician) EGFR NON AFR 95 Normal (applies [facility] SUDANESE mL/min/1 to non-numeric (Ammir .73m2 results) Charles Physician) EGFR NON AFR 95 Normal (applies [facility] SUDANESE mL/min/1 to non-numeric (Ammir .73m2 results) Charles Physician) EGFR AFR 114 Normal (applies [facility] SUDANESE mL/min/1 to non-numeric (Ammir .73m2 results) Charles Physician) EGFR AFR 114 Normal (applies [facility] SUDANESE mL/min/1 to non-numeric (Ammir .73m2 results) Charles Physician) ID Date Data Source [id number] 12/24/2018 12:00:00 AM EDT [facility] (Ammir Charles Physician) Name Value Range Interpretation Description Data Sup porting Code Source(s) Document(s ) GLUCOSE 71 mg/dL Normal (applies [facility] NONFASTING,SERUM to non-numeric (Ammir results) Charles Physician) GLUCOSE 71 mg/dL Normal (applies [facility] NONFASTING,SERUM to non-numeric (Ammir results) Charles Physician) SODIUM, SERUM 137 Normal (applies [facility] mEq/L to non-numeric (Ammir results) Charles Physician) SODIUM, SERUM 137 Normal (applies [facility] mEq/L to non-numeric (Ammir results) [facility] Physician) POTASSIUM, SERUM 4.4 Normal (applies [facility] mEq/L to non-numeric (Ammir results) [facility] Physician) POTASSIUM, SERUM 4.4 Normal (applies [facility] mEq/L to non-numeric (Ammir results) [facility] Physician) CHLORIDE, SERUM 108 Normal (applies [facility] mEq/L to non-numeric (Ammir results) [facility] Physician) CHLORIDE, SERUM 108 Normal (applies [facility] mEq/L to non-numeric (Ammir results) [facility] Physician) Carbon dioxide 26 mEq/L Normal (applies [facility] [VFr/PPres] in to non-numeric (Ammir Gas delivery results) Charles system Physician) Carbon dioxide 26 mEq/L Normal (applies [facility] [VFr/PPres] in to non-numeric (Ammir Gas delivery results) [facility] system Physician) Anion gap in 7.4 Normal (applies [facility] Body fluid mEq/L to non-numeric (Ammir results) [facility] Physician) Anion gap in 7.4 Normal (applies [facility] Body fluid mEq/L to non-numeric (Ammir results) [facility] Physician) BLOOD UREA 23 mg/dL Normal (applies [facility] NITROGEN to non-numeric (Ammir results) [facility] Physician) BLOOD UREA 23 mg/dL Normal (applies [facility] NITROGEN to non-numeric (Ammir results) [facility] Physician) CREATININE, 0.70 Normal (applies [facility] SERUM mg/dL to non-numeric (Ammir results) [facility] Physician) CREATININE, 0.70 Normal (applies [facility] SERUM mg/dL to non-numeric (Ammir results) [facility] Physician) CALCIUM, SERUM 9.2 Normal (applies [facility] mg/dL to non-numeric (Ammir results) [facility] Physician) CALCIUM, SERUM 9.2 Normal (applies [facility] mg/dL to non-numeric (Ammir results) [facility] Physician) TOTAL PROTEIN 7.0 g/dL Normal (applies [facility] to non-numeric (Ammir results) [facility] Physician) TOTAL PROTEIN 7.0 g/dL Normal (applies [facility] to non-numeric (Ammir results) [facility] Physician) Microalbumin 3.9 g/dL Normal (applies [facility] [Mass/time] in to non-numeric (Ammir Urine collected results) Charles for unspecified Physician) duration Microalbumin 3.9 g/dL Normal (applies [facility] [Mass/time] in to non-numeric (Ammir Urine collected results) Charles for unspecified Physician) duration Globulin 3.1 gldl Normal (applies [facility] [Mass/time] in to non-numeric (Ammir 24 hour Urine results) Charles Physician) Globulin 3.1 gldl Normal (applies [facility] [Mass/time] in to non-numeric (Ammir 24 hour Urine results) Charles Physician) A/G RATIO 1.26 Normal (applies [facility] g/dl to non-numeric (Ammir results) [facility] Physician) A/G RATIO 1.26 Normal (applies [facility] g/dl to non-numeric (Ammir results) [facility] Physician) BILIRUBIN, TOTAL 0.2 Below low normal [facility] mg/dL (Ammir [facility] Physician) BILIRUBIN, TOTAL 0.2 Below low normal [facility] mg/dL (Ammir [facility] Physician) ALKALINE 88 U/L Normal (applies [facility] PHOSPHATASE, ALP to non-numeric (Ammir results) Charles Physician) ALKALINE 88 U/L Normal (applies [facility] PHOSPHATASE, ALP to non-numeric (Ammir results) Charles Physician) ALT (SGPT) 18 U/L Normal (applies [facility] to non-numeric (Ammir results) [facility] Physician) ALT (SGPT) 18 U/L Normal (applies [facility] to non-numeric (Ammir results) [facility] Physician) AST 23 U/L Normal (applies [facility] to non-numeric (Ammir results) [facility] Physician) AST 23 U/L Normal (applies [facility] to non-numeric (Ammir results) [facility] Physician) EGFR NON AFR 95 Normal (applies [facility] SUDANESE mL/min/1 to non-numeric (Ammir .73m2 results) [facility] Physician) EGFR NON AFR 95 Normal (applies [facility] SUDANESE mL/min/1 to non-numeric (Ammir .73m2 results) [facility] Physician) EGFR AFR 114 Normal (applies [facility] SUDANESE mL/min/1 to non-numeric (Ammir .73m2 results) [facility] Physician) EGFR AFR 114 Normal (applies [facility] SUDANESE mL/min/1 to non-numeric (Ammir .73m2 results) [facility] Physician) ID Date Data Source [id number] 12/24/2018 12:00:00 AM EDT [facility] (Ammir [facility] Physician) Name Value Range Interpretation Code Description Data Faiza rce(s) Supporting Document(s ) IRON, 42 ug/dL Normal (applies to [facility] (Amm ir TOTAL non-numeric Charles results) Physician) IRON, 42 ug/dL Normal (applies to [facility] (Amm ir TOTAL non-numeric Charles results) Physician) ID Date Data Source [id number] 12/24/2018 12:00:00 AM EDT [facility] (Ammir [facility] Physician) Name Value Range Interpretation Code Description Data Faiza rce(s) Supporting Document(s ) IRON, 42 ug/dL Normal (applies to [facility] (Amm ir TOTAL non-numeric Charles results) Physician) IRON, 42 ug/dL Normal (applies to [facility] (Amm ir TOTAL non-numeric Charles results) Physician) ID Date Data Source [id number] 12/24/2018 12:00:00 AM EDT [facility] (Ammir [facility] Physician) Name Value Range Interpretation Description Data Sup porting Code Source(s) Document(s ) Hemoglobin A1c 5.7 % Above high normal [facility] (Ammir in Blood [facility] Physician) Hemoglobin A1c 5.7 % Above high normal [facility] (Ammir in Blood [facility] Physician) ID Date Data Source [id number] 12/24/2018 12:00:00 AM EDT [facility] (Ammir [facility] Physician) Name Value Range Interpretation Description Data Sup porting Code Source(s) Document(s ) Hemoglobin A1c 5.7 % Above high normal [facility] (Ammir in Blood [facility] Physician) Hemoglobin A1c 5.7 % Above high normal [facility] (Ammir in Blood [facility] Physician) ID Date Data Source [id number] 12/24/2018 12:00:00 AM EDT [facility] (Ammir [facility] Physician) Name Value Range Interpretation Description Data Sup porting Code Source(s) Document(s ) VITAMIN D 26.99 Below low normal [facility] (Ammir 25-HYDROXY ng/mL [facility] Physician) VITAMIN D 26.99 Below low normal [facility] (Ammir 25-HYDROXY ng/mL [facility] Physician) ID Date Data Source [id number] 12/24/2018 12:00:00 AM EDT [facility] (Ammir [facility] Physician) Name Value Range Interpretation Description Data Sup porting Code Source(s) Document(s ) VITAMIN D 26.99 Below low normal [facility] (Ammir 25-HYDROXY ng/mL [facility] Physician) VITAMIN D 26.99 Below low normal [facility] (Ammir 25-HYDROXY ng/mL [facility] Physician) ID Date Data Source [id number] 12/24/2018 12:00:00 AM EDT [facility] (Ammir [facility] Physician) Name Value Range Interpretation Description Data Sup porting Code Source(s) Document(s ) FOLATE SERUM 25.9 Normal (applies to [facility] ( Ammir ng/mL non-numeric Charles results) Physician) FOLATE SERUM 25.9 Normal (applies to [facility] ( Ammir ng/mL non-numeric Charles results) Physician) VITAMIN B12 881 pg/mL Normal (applies to [facility] (A mmir non-numeric Charles results) Physician) VITAMIN B12 881 pg/mL Normal (applies to [facility] (A mmir non-numeric Charles results) Physician) ID Date Data Source [id number] 12/24/2018 12:00:00 AM EDT [facility] (Ammir [facility] Physician) Name Value Range Interpretation Description Data Sup porting Code Source(s) Document(s ) FOLATE SERUM 25.9 Normal (applies to [facility] ( Ammir ng/mL non-numeric Charles results) Physician) FOLATE SERUM 25.9 Normal (applies to [facility] ( Ammir ng/mL non-numeric Charles results) Physician) VITAMIN B12 881 pg/mL Normal (applies to [facility] (A mmir non-numeric Charles results) Physician) VITAMIN B12 881 pg/mL Normal (applies to [facility] (A mmir non-numeric Charles results) Physician) ID Date Data Source [id number] 12/24/2018 12:00:00 AM EDT [facility] (Ammir [facility] Physician) Name Value Range Interpretation Description Data Sup porting Code Source(s) Document(s ) WBC 7.3 Normal (applies [facility] 10(3)/uL to non-numeric (Ammir results) [facility] Physician) WBC 7.3 Normal (applies [facility] 10(3)/uL to non-numeric (Ammir results) [facility] Physician) RBC 4.0 Normal (applies [facility] 10(6)/uL to non-numeric (Ammir results) [facility] Physician) RBC 4.0 Normal (applies [facility] 10(6)/uL to non-numeric (Ammir results) [facility] Physician) Hemoglobin 10.9 g/dL Below low normal [facility] [Mass/volume] (Ammir in Mixed venous Charles blood by Physician) Oximetry Hemoglobin 10.9 g/dL Below low normal [facility] [Mass/volume] (Ammir in Mixed venous [facility] blood by Physician) Oximetry Hematocrit 33.9 % Below low normal [facility] [Pure volume (Ammir fraction] of [facility] Blood by Physician) Automated count Hematocrit 33.9 % Below low normal [facility] [Pure volume (Ammir fraction] of [facility] Blood by Physician) Automated count MCV 84.8 fL Normal (applies [facility] to non-numeric (Ammir results) [facility] Physician) MCV 84.8 fL Normal (applies [facility] to non-numeric (Ammir results) [facility] Physician) MCH 27 pg Normal (applies [facility] to non-numeric (Ammir results) [facility] Physician) MCH 27 pg Normal (applies [facility] to non-numeric (Ammir results) Charles Physician) MCHC 32 g/dL Normal (applies [facility] to non-numeric (Ammir results) Charles Physician) MCHC 32 g/dL Normal (applies [facility] to non-numeric (Ammir results) Charles Physician) RDWSD 42.3 fL Normal (applies [facility] to non-numeric (Ammir results) Charles Physician) RDWSD 42.3 fL Normal (applies [facility] to non-numeric (Ammir results) [facility] Physician) RDWCV 13.7 % Normal (applies [facility] to non-numeric (Ammir results) [facility] Physician) RDWCV 13.7 % Normal (applies [facility] to non-numeric (Ammir results) [facility] Physician) Platelet Count 330 Normal (applies [facility] 10(3)/uL to non-numeric (Ammir results) [facility] Physician) Platelet Count 330 Normal (applies [facility] 10(3)/uL to non-numeric (Ammir results) Charles Physician) MPV 10.7 fL Normal (applies [facility] to non-numeric (Ammir results) [facility] Physician) MPV 10.7 fL Normal (applies [facility] to non-numeric (Ammir results) [facility] Physician) Neutrophil Abs 3.74 Normal (applies [facility] 10(3)/uL to non-numeric (Ammir results) [facility] Physician) Neutrophil Abs 3.74 Normal (applies [facility] 10(3)/uL to non-numeric (Ammir results) Charles Physician) Lymphocyte Abs 2.95 Normal (applies [facility] 10(3)/uL to non-numeric (Ammir results) Charles Physician) Lymphocyte Abs 2.95 Normal (applies [facility] 10(3)/uL to non-numeric (Ammir results) [facility] Physician) Monocyte Abs 0.42 Normal (applies [facility] 10(3)/uL to non-numeric (Ammir results) [facility] Physician) Monocyte Abs 0.42 Normal (applies [facility] 10(3)/uL to non-numeric (Ammir results) [facility] Physician) Eosinophil Abs 0.09 Normal (applies [facility] 10(3)/uL to non-numeric (Ammir results) [facility] Physician) Eosinophil Abs 0.09 Normal (applies [facility] 10(3)/uL to non-numeric (Ammir results) [facility] Physician) Basophil Abs 0.06 Normal (applies [facility] 10(3)/uL to non-numeric (Ammir results) Charles Physician) Basophil Abs 0.06 Normal (applies [facility] 10(3)/uL to non-numeric (Ammir results) [facility] Physician) Immature 0.01 Normal (applies [facility] Granulocyte Abs 10(3)/uL to non-numeric (Ammir results) [facility] Physician) Immature 0.01 Normal (applies [facility] Granulocyte Abs 10(3)/uL to non-numeric (Ammir results) [facility] Physician) Neutrophil % 51.50 % Normal (applies [facility] to non-numeric (Ammir results) [facility] Physician) Neutrophil % 51.50 % Normal (applies [facility] to non-numeric (Ammir results) [facility] Physician) Lymphocyte % 41 % Normal (applies [facility] to non-numeric (Ammir results) Charles Physician) Lymphocyte % 41 % Normal (applies [facility] to non-numeric (Ammir results) Charles Physician) Monocyte % 5.8 % Normal (applies [facility] to non-numeric (Ammir results) [facility] Physician) Monocyte % 5.8 % Normal (applies [facility] to non-numeric (Ammir results) [facility] Physician) Eosinophil % 1.2 % Normal (applies [facility] to non-numeric (Ammir results) Charles Physician) Eosinophil % 1.2 % Normal (applies [facility] to non-numeric (Ammir results) Charles Physician) Basophil % 0.8 % Normal (applies [facility] to non-numeric (Ammir results) Charles Physician) Basophil % 0.8 % Normal (applies [facility] to non-numeric (Ammir results) Charles Physician) Immature 0.10 % Normal (applies [facility] Granulocyte % to non-numeric (Ammir results) Charles Physician) Immature 0.10 % Normal (applies [facility] Granulocyte % to non-numeric (Ammir results) [facility] Physician) NRBC % 0.0 % Normal (applies [facility] to non-numeric (Ammir results) Charles Physician) NRBC % 0.0 % Normal (applies [facility] to non-numeric (Ammir results) [facility] Physician) NRBC Abs 0.00 Normal (applies [facility] 10(3)/uL to non-numeric (Ammir results) [facility] Physician) NRBC Abs 0.00 Normal (applies [facility] 10(3)/uL to non-numeric (Ammir results) [facility] Physician) ID Date Data Source [id number] 12/24/2018 12:00:00 AM EDT [facility] (Ammir [facility] Physician) Name Value Range Interpretation Description Data Sup porting Code Source(s) Document(s ) GLUCOSE 71 mg/dL Normal (applies [facility] NONFASTING,SERUM to non-numeric (Ammir results) [facility] Physician) GLUCOSE 71 mg/dL Normal (applies [facility] NONFASTING,SERUM to non-numeric (Ammir results) Charles Physician) SODIUM, SERUM 137 Normal (applies [facility] mEq/L to non-numeric (Ammir results) Charles Physician) POTASSIUM, SERUM 4.4 Normal (applies [facility] mEq/L to non-numeric (Ammir results) Charles Physician) SODIUM, SERUM 137 Normal (applies [facility] mEq/L to non-numeric (Ammir results) Charles Physician) POTASSIUM, SERUM 4.4 Normal (applies [facility] mEq/L to non-numeric (Ammir results) Charles Physician) CHLORIDE, SERUM 108 Normal (applies [facility] mEq/L to non-numeric (Ammir results) Charles Physician) CHLORIDE, SERUM 108 Normal (applies [facility] mEq/L to non-numeric (Ammir results) Charles Physician) Carbon dioxide 26 mEq/L Normal (applies [facility] [VFr/PPres] in to non-numeric (Ammir Gas delivery results) [facility] system Physician) Carbon dioxide 26 mEq/L Normal (applies [facility] [VFr/PPres] in to non-numeric (Ammir Gas delivery results) Charles system Physician) Anion gap in 7.4 Normal (applies [facility] Body fluid mEq/L to non-numeric (Ammir results) Charles Physician) Anion gap in 7.4 Normal (applies [facility] Body fluid mEq/L to non-numeric (Ammir results) Charles Physician) BLOOD UREA 23 mg/dL Normal (applies [facility] NITROGEN to non-numeric (Ammir results) Charles Physician) BLOOD UREA 23 mg/dL Normal (applies [facility] NITROGEN to non-numeric (Ammir results) Charles Physician) CREATININE, 0.70 Normal (applies [facility] SERUM mg/dL to non-numeric (Ammir results) Charles Physician) CREATININE, 0.70 Normal (applies [facility] SERUM mg/dL to non-numeric (Ammir results) Charles Physician) CALCIUM, SERUM 9.2 Normal (applies [facility] mg/dL to non-numeric (Ammir results) Charles Physician) CALCIUM, SERUM 9.2 Normal (applies [facility] mg/dL to non-numeric (Ammir results) Charles Physician) TOTAL PROTEIN 7.0 g/dL Normal (applies [facility] to non-numeric (Ammir results) Charles Physician) TOTAL PROTEIN 7.0 g/dL Normal (applies [facility] to non-numeric (Ammir results) Charles Physician) Microalbumin 3.9 g/dL Normal (applies [facility] [Mass/time] in to non-numeric (Ammir Urine collected results) Charles for unspecified Physician) duration Microalbumin 3.9 g/dL Normal (applies [facility] [Mass/time] in to non-numeric (Ammir Urine collected results) Charles for unspecified Physician) duration Globulin 3.1 gldl Normal (applies [facility] [Mass/time] in to non-numeric (Ammir 24 hour Urine results) Charles Physician) Globulin 3.1 gldl Normal (applies [facility] [Mass/time] in to non-numeric (Ammir 24 hour Urine results) Charles Physician) A/G RATIO 1.26 Normal (applies [facility] g/dl to non-numeric (Ammir results) Charles Physician) A/G RATIO 1.26 Normal (applies [facility] g/dl to non-numeric (Ammir results) Charles Physician) BILIRUBIN, TOTAL 0.2 Below low normal [facility] mg/dL (Ammir Charles Physician) BILIRUBIN, TOTAL 0.2 Below low normal [facility] mg/dL (Ammir Charles Physician) ALKALINE 88 U/L Normal (applies [facility] PHOSPHATASE, ALP to non-numeric (Ammir results) Charles Physician) ALKALINE 88 U/L Normal (applies [facility] PHOSPHATASE, ALP to non-numeric (Ammir results) Charles Physician) ALT (SGPT) 18 U/L Normal (applies [facility] to non-numeric (Ammir results) Charles Physician) ALT (SGPT) 18 U/L Normal (applies [facility] to non-numeric (Ammir results) Charles Physician) AST 23 U/L Normal (applies [facility] to non-numeric (Ammir results) Charles Physician) AST 23 U/L Normal (applies [facility] to non-numeric (Ammir results) Charles Physician) EGFR NON AFR 95 Normal (applies [facility] SUDANESE mL/min/1 to non-numeric (Ammir .73m2 results) Charles Physician) EGFR NON AFR 95 Normal (applies [facility] SUDANESE mL/min/1 to non-numeric (Ammir .73m2 results) Charles Physician) EGFR AFR 114 Normal (applies [facility] SUDANESE mL/min/1 to non-numeric (Ammir .73m2 results) Charles Physician) EGFR AFR 114 Normal (applies [facility] SUDANESE mL/min/1 to non-numeric (Ammir .73m2 results) Charles Physician) ID Date Data Source [id number] 12/24/2018 12:00:00 AM EDT [facility] (Ammir Charles Physician) Name Value Range Interpretation Code Description Data Faiza rce(s) Supporting Document(s ) IRON, 42 ug/dL Normal (applies to [facility] (Amm ir TOTAL non-numeric Charles results) Physician) IRON, 42 ug/dL Normal (applies to [facility] (Amm ir TOTAL non-numeric Charles results) Physician) ID Date Data Source [id number] 12/24/2018 12:00:00 AM EDT [facility] (Ammir Charles Physician) Name Value Range Interpretation Code Description Data Faiza rce(s) Supporting Document(s ) IRON, 42 ug/dL Normal (applies to [facility] (Amm ir TOTAL non-numeric Charles results) Physician) IRON, 42 ug/dL Normal (applies to [facility] (Amm ir TOTAL non-numeric Charles results) Physician) ID Date Data Source [id number] 12/24/2018 12:00:00 AM EDT [facility] (Ammir Charles Physician) Name Value Range Interpretation Description Data Sup porting Code Source(s) Document(s ) Hemoglobin A1c 5.7 % Above high normal [facility] (Ammir in Blood [facility] Physician) Hemoglobin A1c 5.7 % Above high normal [facility] (Ammir in Blood Charles Physician) ID Date Data Source [id number] 12/24/2018 12:00:00 AM EDT [facility] (Ammir Charles Physician) Name Value Range Interpretation Description Data Sup porting Code Source(s) Document(s ) Hemoglobin A1c 5.7 % Above high normal [facility] (Ammir in Blood [facility] Physician) Hemoglobin A1c 5.7 % Above high normal [facility] (Ammir in Blood Charles Physician) ID Date Data Source [id number] 12/24/2018 12:00:00 AM EDT [facility] (Ammir Charles Physician) Name Value Range Interpretation Description Data Sup porting Code Source(s) Document(s ) VITAMIN D 26.99 Below low normal [facility] (Ammir 25-HYDROXY ng/mL Charles Physician) VITAMIN D 26.99 Below low normal [facility] (Ammir 25-HYDROXY ng/mL [facility] Physician) ID Date Data Source [id number] 12/24/2018 12:00:00 AM EDT [facility] (Ammir Charles Physician) Name Value Range Interpretation Description Data Sup porting Code Source(s) Document(s ) VITAMIN D 26.99 Below low normal [facility] (Ammir 25-HYDROXY ng/mL [facility] Physician) VITAMIN D 26.99 Below low normal [facility] (Ammir 25-HYDROXY ng/mL Charles Physician) ID Date Data Source [id number] 12/24/2018 12:00:00 AM EDT [facility] (Ammir Charles Physician) Name Value Range Interpretation Description Data Sup porting Code Source(s) Document(s ) FOLATE SERUM 25.9 Normal (applies to [facility] ( Ammir ng/mL non-numeric Charles results) Physician) FOLATE SERUM 25.9 Normal (applies to [facility] ( Ammir ng/mL non-numeric Charles results) Physician) VITAMIN B12 881 pg/mL Normal (applies to [facility] (A mmir non-numeric Charles results) Physician) VITAMIN B12 881 pg/mL Normal (applies to [facility] (A mmir non-numeric Charles results) Physician) ID Date Data Source [id number] 12/24/2018 12:00:00 AM EDT [facility] (Ammir Charles Physician) Name Value Range Interpretation Description Data Sup porting Code Source(s) Document(s ) FOLATE SERUM 25.9 Normal (applies to [facility] ( Ammir ng/mL non-numeric Charles results) Physician) FOLATE SERUM 25.9 Normal (applies to [facility] ( Ammir ng/mL non-numeric Charles results) Physician) VITAMIN B12 881 pg/mL Normal (applies to [facility] (A mmir non-numeric Charles results) Physician) VITAMIN B12 881 pg/mL Normal (applies to [facility] (A mmir non-numeric Charles results) Physician) ID Date Data Source [id number] 12/24/2018 12:00:00 AM EDT [facility] (Ammir Charles Physician) Name Value Range Interpretation Description Data Sup porting Code Source(s) Document(s ) WBC 7.3 Normal (applies [facility] 10(3)/uL to non-numeric (Ammir results) Charles Physician) WBC 7.3 Normal (applies [facility] 10(3)/uL to non-numeric (Ammir results) Charles Physician) RBC 4.0 Normal (applies [facility] 10(6)/uL to non-numeric (Ammir results) Charles Physician) RBC 4.0 Normal (applies [facility] 10(6)/uL to non-numeric (Ammir results) Charles Physician) Hemoglobin 10.9 g/dL Below low normal [facility] [Mass/volume] (Ammir in Mixed venous Charles blood by Physician) Oximetry Hemoglobin 10.9 g/dL Below low normal [facility] [Mass/volume] (Ammir in Mixed venous Charles blood by Physician) Oximetry Hematocrit 33.9 % Below low normal [facility] [Pure volume (Ammir fraction] of [facility] Blood by Physician) Automated count Hematocrit 33.9 % Below low normal [facility] [Pure volume (Ammir fraction] of [facility] Blood by Physician) Automated count MCV 84.8 fL Normal (applies [facility] to non-numeric (Ammir results) Charles Physician) MCV 84.8 fL Normal (applies [facility] to non-numeric (Ammir results) Charles Physician) MCH 27 pg Normal (applies [facility] to non-numeric (Ammir results) Charles Physician) MCH 27 pg Normal (applies [facility] to non-numeric (Ammir results) Charles Physician) MCHC 32 g/dL Normal (applies [facility] to non-numeric (Ammir results) Charles Physician) MCHC 32 g/dL Normal (applies [facility] to non-numeric (Ammir results) Charles Physician) RDWSD 42.3 fL Normal (applies [facility] to non-numeric (Ammir results) Charles Physician) RDWSD 42.3 fL Normal (applies [facility] to non-numeric (Ammir results) Charles Physician) RDWCV 13.7 % Normal (applies [facility] to non-numeric (Ammir results) Charles Physician) RDWCV 13.7 % Normal (applies [facility] to non-numeric (Ammir results) Charles Physician) Platelet Count 330 Normal (applies [facility] 10(3)/uL to non-numeric (Ammir results) Charles Physician) Platelet Count 330 Normal (applies [facility] 10(3)/uL to non-numeric (Ammir results) Charles Physician) MPV 10.7 fL Normal (applies [facility] to non-numeric (Ammir results) Charles Physician) MPV 10.7 fL Normal (applies [facility] to non-numeric (Ammir results) Charles Physician) Neutrophil Abs 3.74 Normal (applies [facility] 10(3)/uL to non-numeric (Ammir results) Charles Physician) Neutrophil Abs 3.74 Normal (applies [facility] 10(3)/uL to non-numeric (Ammir results) Charles Physician) Lymphocyte Abs 2.95 Normal (applies [facility] 10(3)/uL to non-numeric (Ammir results) Charles Physician) Lymphocyte Abs 2.95 Normal (applies [facility] 10(3)/uL to non-numeric (Ammir results) Charles Physician) Monocyte Abs 0.42 Normal (applies [facility] 10(3)/uL to non-numeric (Ammir results) Charles Physician) Monocyte Abs 0.42 Normal (applies [facility] 10(3)/uL to non-numeric (Ammir results) Charles Physician) Eosinophil Abs 0.09 Normal (applies [facility] 10(3)/uL to non-numeric (Ammir results) Charles Physician) Eosinophil Abs 0.09 Normal (applies [facility] 10(3)/uL to non-numeric (Ammir results) Charles Physician) Basophil Abs 0.06 Normal (applies [facility] 10(3)/uL to non-numeric (Ammir results) Charles Physician) Basophil Abs 0.06 Normal (applies [facility] 10(3)/uL to non-numeric (Ammir results) Charles Physician) Immature 0.01 Normal (applies [facility] Granulocyte Abs 10(3)/uL to non-numeric (Ammir results) Charles Physician) Immature 0.01 Normal (applies [facility] Granulocyte Abs 10(3)/uL to non-numeric (Ammir results) Charles Physician) Neutrophil % 51.50 % Normal (applies [facility] to non-numeric (Ammir results) Charles Physician) Lymphocyte % 41 % Normal (applies [facility] to non-numeric (Ammir results) Charles Physician) Neutrophil % 51.50 % Normal (applies [facility] to non-numeric (Ammir results) Charles Physician) Lymphocyte % 41 % Normal (applies [facility] to non-numeric (Ammir results) Charles Physician) Monocyte % 5.8 % Normal (applies [facility] to non-numeric (Ammir results) Charles Physician) Monocyte % 5.8 % Normal (applies [facility] to non-numeric (Ammir results) Charles Physician) Eosinophil % 1.2 % Normal (applies [facility] to non-numeric (Ammir results) Charles Physician) Eosinophil % 1.2 % Normal (applies [facility] to non-numeric (Ammir results) Charles Physician) Basophil % 0.8 % Normal (applies [facility] to non-numeric (Ammir results) Charles Physician) Basophil % 0.8 % Normal (applies [facility] to non-numeric (Ammir results) Charles Physician) Immature 0.10 % Normal (applies [facility] Granulocyte % to non-numeric (Ammir results) Charles Physician) Immature 0.10 % Normal (applies [facility] Granulocyte % to non-numeric (Ammir results) Charles Physician) NRBC % 0.0 % Normal (applies [facility] to non-numeric (Ammir results) Charles Physician) NRBC % 0.0 % Normal (applies [facility] to non-numeric (Ammir results) Charles Physician) NRBC Abs 0.00 Normal (applies [facility] 10(3)/uL to non-numeric (Ammir results) Charles Physician) NRBC Abs 0.00 Normal (applies [facility] 10(3)/uL to non-numeric (Ammir results) Charles Physician) ID Date Data Source [id number] 12/24/2018 12:00:00 AM EDT [facility] (Ammir Charles Physician) Name Value Range Interpretation Description Data Sup porting Code Source(s) Document(s ) Transferrin 267 mg/dL Normal (applies [facility] [Mass/time] in to non-numeric (Ammir 24 hour Urine results) Charles Physician) Transferrin 267 mg/dL Normal (applies [facility] [Mass/time] in to non-numeric (Ammir 24 hour Urine results) Charles Physician) TIBC 374.4 Normal (applies [facility] ug/dL to non-numeric (Ammir results) Charles Physician) TIBC 374.4 Normal (applies [facility] ug/dL to non-numeric (Ammir results) Charles Physician) UIBC 332.4 Normal (applies [facility] ug/dL to non-numeric (Ammir results) Charles Physician) UIBC 332.4 Normal (applies [facility] ug/dL to non-numeric (Ammir results) Charles Physician) %SATURATION 11.2 % Below low normal [facility] (Ammir Charles Physician) %SATURATION 11.2 % Below low normal [facility] (Ammir Charles Physician) ID Date Data Source [id number] 12/24/2018 12:00:00 AM EDT [facility] (Ammir Charles Physician) Name Value Range Interpretation Description Data Sup porting Code Source(s) Document(s ) Transferrin 267 mg/dL Normal (applies [facility] [Mass/time] in to non-numeric (Ammir 24 hour Urine results) Charles Physician) Transferrin 267 mg/dL Normal (applies [facility] [Mass/time] in to non-numeric (Ammir 24 hour Urine results) Charles Physician) TIBC 374.4 Normal (applies [facility] ug/dL to non-numeric (Ammir results) Charles Physician) TIBC 374.4 Normal (applies [facility] ug/dL to non-numeric (Ammir results) Charles Physician) UIBC 332.4 Normal (applies [facility] ug/dL to non-numeric (Ammir results) Charles Physician) UIBC 332.4 Normal (applies [facility] ug/dL to non-numeric (Ammir results) Charles Physician) %SATURATION 11.2 % Below low normal [facility] (Ammir Charles Physician) %SATURATION 11.2 % Below low normal [facility] (Ammir Charles Physician) ID Date Data Source [id number] 12/24/2018 12:00:00 AM EDT [facility] (Ammir Charles Physician) Name Value Range Interpretation Description Data Sup porting Code Source(s) Document(s ) Ferritin 14.4 Normal (applies to [facility] (Amm ir [Interpretat ng/mL non-numeric Charles ion] in results) Physician) Blood Ferritin 14.4 Normal (applies to [facility] (Amm ir [Interpretat ng/mL non-numeric Charles ion] in results) Physician) Blood ID Date Data Source [id number] 12/24/2018 12:00:00 AM EDT [facility] (Ammir Charles Physician) Name Value Range Interpretation Description Data Sup porting Code Source(s) Document(s ) Ferritin 14.4 Normal (applies to [facility] (Amm ir [Interpretat ng/mL non-numeric Charles ion] in results) Physician) Blood Ferritin 14.4 Normal (applies to [facility] (Amm ir [Interpretat ng/mL non-numeric Charles ion] in results) Physician) Blood ID Date Data Source [id number] 12/24/2018 12:00:00 AM EDT [facility] (Ammir Charles Physician) Name Value Range Interpretation Description Data Sup porting Code Source(s) Document(s ) T4 FREE, 0.85 Below low normal [facility] THYROXINE ng/dL (Ammir Charles Physician) T4 FREE, 0.85 Below low normal [facility] THYROXINE ng/dL (Ammir Charles Physician) TSH,3RD 1.60 Normal (applies to [facility] GENERATION uIU/mL non-numeric (Ammir results) Charles Physician) TSH,3RD 1.60 Normal (applies to [facility] GENERATION uIU/mL non-numeric (Ammir results) Charles Physician) ID Date Data Source [id number] 12/24/2018 12:00:00 AM EDT [facility] (Ammir Charles Physician) Name Value Range Interpretation Description Data Sup porting Code Source(s) Document(s ) T4 FREE, 0.85 Below low normal [facility] THYROXINE ng/dL (Ammir Charles Physician) T4 FREE, 0.85 Below low normal [facility] THYROXINE ng/dL (Ammir Charles Physician) TSH,3RD 1.60 Normal (applies to [facility] GENERATION uIU/mL non-numeric (Ammir results) Charles Physician) TSH,3RD 1.60 Normal (applies to [facility] GENERATION uIU/mL non-numeric (Ammir results) Charles Physician) ID Date Data Source [id number] 12/24/2018 12:00:00 AM EDT [facility] (Ammir Charles Physician) Name Value Range Interpretation Description Data Sup porting Code Source(s) Document(s ) Cholesterol 132 Normal (applies [facility] [Moles/volume] mg/dL to non-numeric (Ammir in Pericardial results) Charles fluid Physician) Cholesterol 132 Normal (applies [facility] [Moles/volume] mg/dL to non-numeric (Ammir in Pericardial results) Charles fluid Physician) LDL CALCULATION 68.0 Normal (applies [facility] mg/dL to non-numeric (Ammir results) Charles Physician) LDL CALCULATION 68.0 Normal (applies [facility] mg/dL to non-numeric (Ammir results) Charles Physician) CHOL/HDL RATIO 2.40 Normal (applies [facility] ratio to non-numeric (Ammir results) Charles Physician) CHOL/HDL RATIO 2.40 Normal (applies [facility] ratio to non-numeric (Ammir results) Charles Physician) HDL CHOLESTEROL 55 mg/dL Normal (applies [facility] to non-numeric (Ammir results) Charles Physician) HDL CHOLESTEROL 55 mg/dL Normal (applies [facility] to non-numeric (Ammir results) Charles Physician) VLDL CALCULATION 9.0 Normal (applies [facility] mg/dl to non-numeric (Ammir results) Charles Physician) VLDL CALCULATION 9.0 Normal (applies [facility] mg/dl to non-numeric (Ammir results) Charles Physician) TRIGLYCERIDES 45 mg/dL Normal (applies [facility] to non-numeric (Ammir results) Charles Physician) TRIGLYCERIDES 45 mg/dL Normal (applies [facility] to non-numeric (Ammir results) Charles Physician) ID Date Data Source [id number] 12/24/2018 12:00:00 AM EDT [facility] (Ammir Charles Physician) Name Value Range Interpretation Description Data Sup porting Code Source(s) Document(s ) Cholesterol 132 Normal (applies [facility] [Moles/volume] mg/dL to non-numeric (Ammir in Pericardial results) Charles fluid Physician) Cholesterol 132 Normal (applies [facility] [Moles/volume] mg/dL to non-numeric (Ammir in Pericardial results) Charles fluid Physician) LDL CALCULATION 68.0 Normal (applies [facility] mg/dL to non-numeric (Ammir results) Charles Physician) LDL CALCULATION 68.0 Normal (applies [facility] mg/dL to non-numeric (Ammir results) Charles Physician) CHOL/HDL RATIO 2.40 Normal (applies [facility] ratio to non-numeric (Ammir results) Charles Physician) CHOL/HDL RATIO 2.40 Normal (applies [facility] ratio to non-numeric (Ammir results) Charles Physician) HDL CHOLESTEROL 55 mg/dL Normal (applies [facility] to non-numeric (Ammir results) Charles Physician) HDL CHOLESTEROL 55 mg/dL Normal (applies [facility] to non-numeric (Ammir results) Charles Physician) VLDL CALCULATION 9.0 Normal (applies [facility] mg/dl to non-numeric (Ammir results) Charles Physician) VLDL CALCULATION 9.0 Normal (applies [facility] mg/dl to non-numeric (Ammir results) Charles Physician) TRIGLYCERIDES 45 mg/dL Normal (applies [facility] to non-numeric (Ammir results) Charles Physician) TRIGLYCERIDES 45 mg/dL Normal (applies [facility] to non-numeric (Ammir results) Charles Physician) ID Date Data Source [id number] 12/24/2018 12:00:00 AM EDT [facility] (Ammir Charles Physician) Name Value Range Interpretation Description Data Sup porting Code Source(s) Document(s ) WBC 7.3 Normal (applies [facility] 10(3)/uL to non-numeric (Ammir results) Charles Physician) WBC 7.3 Normal (applies [facility] 10(3)/uL to non-numeric (Ammir results) Charles Physician) RBC 4.0 Normal (applies [facility] 10(6)/uL to non-numeric (Ammir results) Charles Physician) RBC 4.0 Normal (applies [facility] 10(6)/uL to non-numeric (Ammir results) Charles Physician) Hemoglobin 10.9 g/dL Below low normal [facility] [Mass/volume] (Ammir in Mixed venous Charles blood by Physician) Oximetry Hemoglobin 10.9 g/dL Below low normal [facility] [Mass/volume] (Ammir in Mixed venous Charles blood by Physician) Oximetry Hematocrit 33.9 % Below low normal [facility] [Pure volume (Ammir fraction] of Charles Blood by Physician) Automated count Hematocrit 33.9 % Below low normal [facility] [Pure volume (Ammir fraction] of Charles Blood by Physician) Automated count MCV 84.8 fL Normal (applies [facility] to non-numeric (Ammir results) Charles Physician) MCV 84.8 fL Normal (applies [facility] to non-numeric (Ammir results) Charles Physician) MCH 27 pg Normal (applies [facility] to non-numeric (Ammir results) Charles Physician) MCH 27 pg Normal (applies [facility] to non-numeric (Ammir results) Charles Physician) MCHC 32 g/dL Normal (applies [facility] to non-numeric (Ammir results) Charles Physician) MCHC 32 g/dL Normal (applies [facility] to non-numeric (Ammir results) Charles Physician) RDWSD 42.3 fL Normal (applies [facility] to non-numeric (Ammir results) Charles Physician) RDWSD 42.3 fL Normal (applies [facility] to non-numeric (Ammir results) Charles Physician) RDWCV 13.7 % Normal (applies [facility] to non-numeric (Ammir results) Charles Physician) RDWCV 13.7 % Normal (applies [facility] to non-numeric (Ammir results) Charles Physician) Platelet Count 330 Normal (applies [facility] 10(3)/uL to non-numeric (Ammir results) Charles Physician) Platelet Count 330 Normal (applies [facility] 10(3)/uL to non-numeric (Ammir results) Charles Physician) MPV 10.7 fL Normal (applies [facility] to non-numeric (Ammir results) Charles Physician) MPV 10.7 fL Normal (applies [facility] to non-numeric (Ammir results) Charles Physician) Neutrophil Abs 3.74 Normal (applies [facility] 10(3)/uL to non-numeric (Ammir results) Charles Physician) Neutrophil Abs 3.74 Normal (applies [facility] 10(3)/uL to non-numeric (Ammir results) Charles Physician) Lymphocyte Abs 2.95 Normal (applies [facility] 10(3)/uL to non-numeric (Ammir results) Charles Physician) Lymphocyte Abs 2.95 Normal (applies [facility] 10(3)/uL to non-numeric (Ammir results) Charles Physician) Monocyte Abs 0.42 Normal (applies [facility] 10(3)/uL to non-numeric (Ammir results) Charles Physician) Monocyte Abs 0.42 Normal (applies [facility] 10(3)/uL to non-numeric (Ammir results) Charles Physician) Eosinophil Abs 0.09 Normal (applies [facility] 10(3)/uL to non-numeric (Ammir results) Charles Physician) Eosinophil Abs 0.09 Normal (applies [facility] 10(3)/uL to non-numeric (Ammir results) Charles Physician) Basophil Abs 0.06 Normal (applies [facility] 10(3)/uL to non-numeric (Ammir results) Charles Physician) Basophil Abs 0.06 Normal (applies [facility] 10(3)/uL to non-numeric (Ammir results) Charles Physician) Immature 0.01 Normal (applies [facility] Granulocyte Abs 10(3)/uL to non-numeric (Ammir results) Charles Physician) Immature 0.01 Normal (applies [facility] Granulocyte Abs 10(3)/uL to non-numeric (Ammir results) Charles Physician) Neutrophil % 51.50 % Normal (applies [facility] to non-numeric (Ammir results) Charles Physician) Neutrophil % 51.50 % Normal (applies [facility] to non-numeric (Ammir results) Charles Physician) Lymphocyte % 41 % Normal (applies [facility] to non-numeric (Ammir results) Charles Physician) Lymphocyte % 41 % Normal (applies [facility] to non-numeric (Ammir results) Charles Physician) Monocyte % 5.8 % Normal (applies [facility] to non-numeric (Ammir results) Charles Physician) Monocyte % 5.8 % Normal (applies [facility] to non-numeric (Ammir results) Charles Physician) Eosinophil % 1.2 % Normal (applies [facility] to non-numeric (Ammir results) Charles Physician) Eosinophil % 1.2 % Normal (applies [facility] to non-numeric (Ammir results) Charles Physician) Basophil % 0.8 % Normal (applies [facility] to non-numeric (Ammir results) Charles Physician) Basophil % 0.8 % Normal (applies [facility] to non-numeric (Ammir results) Charles Physician) Immature 0.10 % Normal (applies [facility] Granulocyte % to non-numeric (Ammir results) Charles Physician) Immature 0.10 % Normal (applies [facility] Granulocyte % to non-numeric (Ammir results) Charles Physician) NRBC % 0.0 % Normal (applies [facility] to non-numeric (Ammir results) Charles Physician) NRBC % 0.0 % Normal (applies [facility] to non-numeric (Ammir results) Charles Physician) NRBC Abs 0.00 Normal (applies [facility] 10(3)/uL to non-numeric (Ammir results) Charles Physician) NRBC Abs 0.00 Normal (applies [facility] 10(3)/uL to non-numeric (Ammir results) Charles Physician) ID Date Data Source [id number] 12/24/2018 12:00:00 AM EDT [facility] (Ammir [facility] Physician) Name Value Range Interpretation Description Data Sup porting Code Source(s) Document(s ) Cholesterol 132 Normal (applies [facility] [Moles/volume] mg/dL to non-numeric (Ammir in Pericardial results) Charles fluid Physician) Cholesterol 132 Normal (applies [facility] [Moles/volume] mg/dL to non-numeric (Ammir in Pericardial results) Charles fluid Physician) LDL CALCULATION 68.0 Normal (applies [facility] mg/dL to non-numeric (Ammir results) Charles Physician) LDL CALCULATION 68.0 Normal (applies [facility] mg/dL to non-numeric (Ammir results) Charles Physician) CHOL/HDL RATIO 2.40 Normal (applies [facility] ratio to non-numeric (Ammir results) Charles Physician) CHOL/HDL RATIO 2.40 Normal (applies [facility] ratio to non-numeric (Ammir results) Charles Physician) HDL CHOLESTEROL 55 mg/dL Normal (applies [facility] to non-numeric (Ammir results) Charles Physician) HDL CHOLESTEROL 55 mg/dL Normal (applies [facility] to non-numeric (Ammir results) Charles Physician) VLDL CALCULATION 9.0 Normal (applies [facility] mg/dl to non-numeric (Ammir results) Charles Physician) VLDL CALCULATION 9.0 Normal (applies [facility] mg/dl to non-numeric (Ammir results) Charles Physician) TRIGLYCERIDES 45 mg/dL Normal (applies [facility] to non-numeric (Ammir results) Charles Physician) TRIGLYCERIDES 45 mg/dL Normal (applies [facility] to non-numeric (Ammir results) Charles Physician) ID Date Data Source [id number] 12/24/2018 12:00:00 AM EDT [facility] (Ammir [facility] Physician) Name Value Range Interpretation Description Data Sup porting Code Source(s) Document(s ) Cholesterol 132 Normal (applies [facility] [Moles/volume] mg/dL to non-numeric (Ammir in Pericardial results) Charles fluid Physician) Cholesterol 132 Normal (applies [facility] [Moles/volume] mg/dL to non-numeric (Ammir in Pericardial results) Charles fluid Physician) LDL CALCULATION 68.0 Normal (applies [facility] mg/dL to non-numeric (Ammir results) Charles Physician) LDL CALCULATION 68.0 Normal (applies [facility] mg/dL to non-numeric (Ammir results) Charles Physician) CHOL/HDL RATIO 2.40 Normal (applies [facility] ratio to non-numeric (Ammir results) Charles Physician) CHOL/HDL RATIO 2.40 Normal (applies [facility] ratio to non-numeric (Ammir results) Charles Physician) HDL CHOLESTEROL 55 mg/dL Normal (applies [facility] to non-numeric (Ammir results) Charles Physician) HDL CHOLESTEROL 55 mg/dL Normal (applies [facility] to non-numeric (Ammir results) Chrales Physician) VLDL CALCULATION 9.0 Normal (applies [facility] mg/dl to non-numeric (Ammir results) Charles Physician) VLDL CALCULATION 9.0 Normal (applies [facility] mg/dl to non-numeric (Ammir results) Charles Physician) TRIGLYCERIDES 45 mg/dL Normal (applies [facility] to non-numeric (Ammir results) Charles Physician) TRIGLYCERIDES 45 mg/dL Normal (applies [facility] to non-numeric (Ammir results) Charles Physician) ID Date Data Source [id number] 12/24/2018 12:00:00 AM EDT [facility] (Ammir Charles Physician) Name Value Range Interpretation Description Data Sup porting Code Source(s) Document(s ) GLUCOSE 71 mg/dL Normal (applies [facility] NONFASTING,SERUM to non-numeric (Ammir results) Charles Physician) GLUCOSE 71 mg/dL Normal (applies [facility] NONFASTING,SERUM to non-numeric (Ammir results) Charles Physician) SODIUM, SERUM 137 Normal (applies [facility] mEq/L to non-numeric (Ammir results) Charles Physician) SODIUM, SERUM 137 Normal (applies [facility] mEq/L to non-numeric (Ammir results) Charles Physician) POTASSIUM, SERUM 4.4 Normal (applies [facility] mEq/L to non-numeric (Ammir results) Charles Physician) POTASSIUM, SERUM 4.4 Normal (applies [facility] mEq/L to non-numeric (Ammir results) Charles Physician) CHLORIDE, SERUM 108 Normal (applies [facility] mEq/L to non-numeric (Ammir results) Charles Physician) Carbon dioxide 26 mEq/L Normal (applies [facility] [VFr/PPres] in to non-numeric (Ammir Gas delivery results) Charles system Physician) CHLORIDE, SERUM 108 Normal (applies [facility] mEq/L to non-numeric (Ammir results) Charles Physician) Carbon dioxide 26 mEq/L Normal (applies [facility] [VFr/PPres] in to non-numeric (Ammir Gas delivery results) Charles system Physician) Anion gap in 7.4 Normal (applies [facility] Body fluid mEq/L to non-numeric (Ammir results) Charles Physician) Anion gap in 7.4 Normal (applies [facility] Body fluid mEq/L to non-numeric (Ammir results) Charles Physician) BLOOD UREA 23 mg/dL Normal (applies [facility] NITROGEN to non-numeric (Ammir results) Charles Physician) BLOOD UREA 23 mg/dL Normal (applies [facility] NITROGEN to non-numeric (Ammir results) Charles Physician) CREATININE, 0.70 Normal (applies [facility] SERUM mg/dL to non-numeric (Ammir results) Charles Physician) CREATININE, 0.70 Normal (applies [facility] SERUM mg/dL to non-numeric (Ammir results) Charles Physician) CALCIUM, SERUM 9.2 Normal (applies [facility] mg/dL to non-numeric (Ammir results) Charles Physician) CALCIUM, SERUM 9.2 Normal (applies [facility] mg/dL to non-numeric (Ammir results) Charles Physician) TOTAL PROTEIN 7.0 g/dL Normal (applies [facility] to non-numeric (Ammir results) Charles Physician) TOTAL PROTEIN 7.0 g/dL Normal (applies [facility] to non-numeric (Ammir results) Charles Physician) Microalbumin 3.9 g/dL Normal (applies [facility] [Mass/time] in to non-numeric (Ammir Urine collected results) Charles for unspecified Physician) duration Microalbumin 3.9 g/dL Normal (applies [facility] [Mass/time] in to non-numeric (Ammir Urine collected results) Charles for unspecified Physician) duration Globulin 3.1 gldl Normal (applies [facility] [Mass/time] in to non-numeric (Ammir 24 hour Urine results) Charles Physician) Globulin 3.1 gldl Normal (applies [facility] [Mass/time] in to non-numeric (Ammir 24 hour Urine results) Charles Physician) A/G RATIO 1.26 Normal (applies [facility] g/dl to non-numeric (Ammir results) Charles Physician) BILIRUBIN, TOTAL 0.2 Below low normal [facility] mg/dL (Ammir Charles Physician) A/G RATIO 1.26 Normal (applies [facility] g/dl to non-numeric (Ammir results) Charles Physician) BILIRUBIN, TOTAL 0.2 Below low normal [facility] mg/dL (Ammir Charles Physician) ALKALINE 88 U/L Normal (applies [facility] PHOSPHATASE, ALP to non-numeric (Ammir results) Charles Physician) ALKALINE 88 U/L Normal (applies [facility] PHOSPHATASE, ALP to non-numeric (Ammir results) Charles Physician) ALT (SGPT) 18 U/L Normal (applies [facility] to non-numeric (Ammir results) Charles Physician) ALT (SGPT) 18 U/L Normal (applies [facility] to non-numeric (Ammir results) Charles Physician) AST 23 U/L Normal (applies [facility] to non-numeric (Ammir results) Charles Physician) AST 23 U/L Normal (applies [facility] to non-numeric (Ammir results) Charles Physician) EGFR NON AFR 95 Normal (applies [facility] SUDANESE mL/min/1 to non-numeric (Ammir .73m2 results) Charles Physician) EGFR NON AFR 95 Normal (applies [facility] SUDANESE mL/min/1 to non-numeric (Ammir .73m2 results) Charles Physician) EGFR AFR 114 Normal (applies [facility] SUDANESE mL/min/1 to non-numeric (Ammir .73m2 results) Charles Physician) EGFR AFR 114 Normal (applies [facility] SUDANESE mL/min/1 to non-numeric (Ammir .73m2 results) Charles Physician) ID Date Data Source [id number] 12/24/2018 12:00:00 AM EDT [facility] (Ammir Charles Physician) Name Value Range Interpretation Description Data Sup porting Code Source(s) Document(s ) GLUCOSE 71 mg/dL Normal (applies [facility] NONFASTING,SERUM to non-numeric (Ammir results) Charles Physician) GLUCOSE 71 mg/dL Normal (applies [facility] NONFASTING,SERUM to non-numeric (Ammir results) Charles Physician) SODIUM, SERUM 137 Normal (applies [facility] mEq/L to non-numeric (Ammir results) Charles Physician) SODIUM, SERUM 137 Normal (applies [facility] mEq/L to non-numeric (Ammir results) Charles Physician) POTASSIUM, SERUM 4.4 Normal (applies [facility] mEq/L to non-numeric (Ammir results) Charles Physician) POTASSIUM, SERUM 4.4 Normal (applies [facility] mEq/L to non-numeric (Ammir results) Charles Physician) CHLORIDE, SERUM 108 Normal (applies [facility] mEq/L to non-numeric (Ammir results) Charles Physician) CHLORIDE, SERUM 108 Normal (applies [facility] mEq/L to non-numeric (Ammir results) Charles Physician) Carbon dioxide 26 mEq/L Normal (applies [facility] [VFr/PPres] in to non-numeric (Ammir Gas delivery results) Charles system Physician) Carbon dioxide 26 mEq/L Normal (applies [facility] [VFr/PPres] in to non-numeric (Ammir Gas delivery results) Charles system Physician) Anion gap in 7.4 Normal (applies [facility] Body fluid mEq/L to non-numeric (Ammir results) Charles Physician) Anion gap in 7.4 Normal (applies [facility] Body fluid mEq/L to non-numeric (Ammir results) Charles Physician) BLOOD UREA 23 mg/dL Normal (applies [facility] NITROGEN to non-numeric (Ammir results) Charles Physician) BLOOD UREA 23 mg/dL Normal (applies [facility] NITROGEN to non-numeric (Ammir results) Charles Physician) CREATININE, 0.70 Normal (applies [facility] SERUM mg/dL to non-numeric (Ammir results) Charles Physician) CREATININE, 0.70 Normal (applies [facility] SERUM mg/dL to non-numeric (Ammir results) Charles Physician) CALCIUM, SERUM 9.2 Normal (applies [facility] mg/dL to non-numeric (Ammir results) Charles Physician) CALCIUM, SERUM 9.2 Normal (applies [facility] mg/dL to non-numeric (Ammir results) Charles Physician) TOTAL PROTEIN 7.0 g/dL Normal (applies [facility] to non-numeric (Ammir results) Charles Physician) TOTAL PROTEIN 7.0 g/dL Normal (applies [facility] to non-numeric (Ammir results) Charles Physician) Microalbumin 3.9 g/dL Normal (applies [facility] [Mass/time] in to non-numeric (Ammir Urine collected results) Charles for unspecified Physician) duration Microalbumin 3.9 g/dL Normal (applies [facility] [Mass/time] in to non-numeric (Ammir Urine collected results) Charles for unspecified Physician) duration Globulin 3.1 gldl Normal (applies [facility] [Mass/time] in to non-numeric (Ammir 24 hour Urine results) Charles Physician) Globulin 3.1 gldl Normal (applies [facility] [Mass/time] in to non-numeric (Ammir 24 hour Urine results) Charles Physician) A/G RATIO 1.26 Normal (applies [facility] g/dl to non-numeric (Ammir results) Charles Physician) A/G RATIO 1.26 Normal (applies [facility] g/dl to non-numeric (Ammir results) Charles Physician) BILIRUBIN, TOTAL 0.2 Below low normal [facility] mg/dL (Ammir Charles Physician) BILIRUBIN, TOTAL 0.2 Below low normal [facility] mg/dL (Ammir Charles Physician) ALKALINE 88 U/L Normal (applies [facility] PHOSPHATASE, ALP to non-numeric (Ammir results) Charles Physician) ALKALINE 88 U/L Normal (applies [facility] PHOSPHATASE, ALP to non-numeric (Ammir results) Charles Physician) ALT (SGPT) 18 U/L Normal (applies [facility] to non-numeric (Ammir results) Charles Physician) ALT (SGPT) 18 U/L Normal (applies [facility] to non-numeric (Ammir results) Charles Physician) AST 23 U/L Normal (applies [facility] to non-numeric (Ammir results) Charles Physician) AST 23 U/L Normal (applies [facility] to non-numeric (Ammir results) Charles Physician) EGFR NON AFR 95 Normal (applies [facility] SUDANESE mL/min/1 to non-numeric (Ammir .73m2 results) Charles Physician) EGFR NON AFR 95 Normal (applies [facility] SUDANESE mL/min/1 to non-numeric (Ammir .73m2 results) Charles Physician) EGFR AFR 114 Normal (applies [facility] SUDANESE mL/min/1 to non-numeric (Ammir .73m2 results) Charles Physician) EGFR AFR 114 Normal (applies [facility] SUDANESE mL/min/1 to non-numeric (Ammir .73m2 results) Charles Physician) ID Date Data Source [id number] 12/24/2018 12:00:00 AM EDT [facility] (Ammir Charles Physician) Name Value Range Interpretation Code Description Data Faiza rce(s) Supporting Document(s ) IRON, 42 ug/dL Normal (applies to [facility] (Amm ir TOTAL non-numeric Charles results) Physician) IRON, 42 ug/dL Normal (applies to [facility] (Amm ir TOTAL non-numeric Charles results) Physician) ID Date Data Source [id number] 12/24/2018 12:00:00 AM EDT [facility] (Ammir Charles Physician) Name Value Range Interpretation Code Description Data Faiza rce(s) Supporting Document(s ) IRON, 42 ug/dL Normal (applies to [facility] (Amm ir TOTAL non-numeric Charles results) Physician) IRON, 42 ug/dL Normal (applies to [facility] (Amm ir TOTAL non-numeric Charles results) Physician) ID Date Data Source [id number] 12/24/2018 12:00:00 AM EDT [facility] (Ammir Charles Physician) Name Value Range Interpretation Description Data Sup porting Code Source(s) Document(s ) Hemoglobin A1c 5.7 % Above high normal [facility] (Ammir in Blood Charles Physician) Hemoglobin A1c 5.7 % Above high normal [facility] (Ammir in Blood Charles Physician) ID Date Data Source [id number] 12/24/2018 12:00:00 AM EDT [facility] ([facility]mmir [facility] Physician) Name Value Range Interpretation Description Data Sup porting Code Source(s) Document(s ) Hemoglobin A1c 5.7 % Above high normal [facility] (Ammir in Blood [facility] Physician) Hemoglobin A1c 5.7 % Above high normal [facility] (Ammir in Blood [facility] Physician) ID Date Data Source [id number] 12/24/2018 12:00:00 AM EDT [facility] ([facility]mm[facility]ician) Name Value Range Interpretation Description Data Sup porting Code Source(s) Document(s ) VITAMIN D 26.99 Below low normal [facility] (Ammir 25-HYDROXY ng/mL Charles Physician) VITAMIN D 26.99 Below low normal [facility] (Ammir 25-HYDROXY ng/mL Charles Physician) ID Date Data Source [id number] 12/24/2018 12:00:00 AM EDT [facility] ([facility]ician) Name Value Range Interpretation Description Data Sup porting Code Source(s) Document(s ) VITAMIN D 26.99 Below low normal [facility] (Ammir 25-HYDROXY ng/mL Charles Physician) VITAMIN D 26.99 Below low normal [facility] (Ammir 25-HYDROXY ng/mL [facility] Physician) ID Date Data Source [id number] 12/24/2018 12:00:00 AM EDT [facility] ([facility]ician) Name Value Range Interpretation Description Data Sup porting Code Source(s) Document(s ) FOLATE SERUM 25.9 Normal (applies to [facility] ( Ammir ng/mL non-numeric Charles results) Physician) FOLATE SERUM 25.9 Normal (applies to [facility] ( Ammir ng/mL non-numeric Charles results) Physician) VITAMIN B12 881 pg/mL Normal (applies to [facility] (A mmir non-numeric Charles results) Physician) VITAMIN B12 881 pg/mL Normal (applies to [facility] (A mmir non-numeric Charles results) Physician) ID Date Data Source [id number] 12/24/2018 12:00:00 AM EDT [facility] ([facility]mm[facility]ician) Name Value Range Interpretation Description Data Sup porting Code Source(s) Document(s ) FOLATE SERUM 25.9 Normal (applies to [facility] ( Ammir ng/mL non-numeric Charles results) Physician) FOLATE SERUM 25.9 Normal (applies to [facility] ( Ammir ng/mL non-numeric Charles results) Physician) VITAMIN B12 881 pg/mL Normal (applies to [facility] (A mmir non-numeric Charles results) Physician) VITAMIN B12 881 pg/mL Normal (applies to [facility] (A mmir non-numeric Charles results) Physician) ID Date Data Source [id number] 12/24/2018 12:00:00 AM EDT [facility] ([facility]mm[facility] Physician) Name Value Range Interpretation Description Data Sup porting Code Source(s) Document(s ) WBC 7.3 Normal (applies [facility] 10(3)/uL to non-numeric (Ammir results) [facility] Physician) WBC 7.3 Normal (applies [facility] 10(3)/uL to non-numeric (Ammir results) Charles Physician) RBC 4.0 Normal (applies [facility] 10(6)/uL to non-numeric (Ammir results) [facility] Physician) RBC 4.0 Normal (applies [facility] 10(6)/uL to non-numeric (Ammir results) Charles Physician) Hemoglobin 10.9 g/dL Below low normal [facility] [Mass/volume] (Ammir in Mixed venous [place] blood by Physician) Oximetry Hemoglobin 10.9 g/dL Below low normal [facility] [Mass/volume] (Ammir in Mixed venous Charles blood by Physician) Oximetry Hematocrit 33.9 % Below low normal [facility] [Pure volume (Ammir fraction] of Charles Blood by Physician) Automated count Hematocrit 33.9 % Below low normal [facility] [Pure volume (Ammir fraction] of Charles Blood by Physician) Automated count MCV 84.8 fL Normal (applies [facility] to non-numeric (Ammir results) Charles Physician) MCV 84.8 fL Normal (applies [facility] to non-numeric (Ammir results) Charles Physician) MCH 27 pg Normal (applies [facility] to non-numeric (Ammir results) Charles Physician) MCH 27 pg Normal (applies [facility] to non-numeric (Ammir results) Charles Physician) MCHC 32 g/dL Normal (applies [facility] to non-numeric (Ammir results) Charles Physician) MCHC 32 g/dL Normal (applies [facility] to non-numeric (Ammir results) Charles Physician) RDWSD 42.3 fL Normal (applies [facility] to non-numeric (Ammir results) Charles Physician) RDWSD 42.3 fL Normal (applies [facility] to non-numeric (Ammir results) Charles Physician) RDWCV 13.7 % Normal (applies [facility] to non-numeric (Ammir results) Charles Physician) RDWCV 13.7 % Normal (applies [facility] to non-numeric (Ammir results) Charles Physician) Platelet Count 330 Normal (applies [facility] 10(3)/uL to non-numeric (Ammir results) Charles Physician) Platelet Count 330 Normal (applies [facility] 10(3)/uL to non-numeric (Ammir results) Charles Physician) MPV 10.7 fL Normal (applies [facility] to non-numeric (Ammir results) Charles Physician) MPV 10.7 fL Normal (applies [facility] to non-numeric (Ammir results) Charles Physician) Neutrophil Abs 3.74 Normal (applies [facility] 10(3)/uL to non-numeric (Ammir results) Charles Physician) Neutrophil Abs 3.74 Normal (applies [facility] 10(3)/uL to non-numeric (Ammir results) Charles Physician) Lymphocyte Abs 2.95 Normal (applies [facility] 10(3)/uL to non-numeric (Ammir results) Charles Physician) Lymphocyte Abs 2.95 Normal (applies [facility] 10(3)/uL to non-numeric (Ammir results) Charles Physician) Monocyte Abs 0.42 Normal (applies [facility] 10(3)/uL to non-numeric (Ammir results) Charles Physician) Monocyte Abs 0.42 Normal (applies [facility] 10(3)/uL to non-numeric (Ammir results) Charles Physician) Eosinophil Abs 0.09 Normal (applies [facility] 10(3)/uL to non-numeric (Ammir results) Charles Physician) Eosinophil Abs 0.09 Normal (applies [facility] 10(3)/uL to non-numeric (Ammir results) Charles Physician) Basophil Abs 0.06 Normal (applies [facility] 10(3)/uL to non-numeric (Ammir results) Charles Physician) Basophil Abs 0.06 Normal (applies [facility] 10(3)/uL to non-numeric (Ammir results) Charles Physician) Immature 0.01 Normal (applies [facility] Granulocyte Abs 10(3)/uL to non-numeric (Ammir results) Charles Physician) Immature 0.01 Normal (applies [facility] Granulocyte Abs 10(3)/uL to non-numeric (Ammir results) Charles Physician) Neutrophil % 51.50 % Normal (applies [facility] to non-numeric (Ammir results) Charles Physician) Neutrophil % 51.50 % Normal (applies [facility] to non-numeric (Ammir results) Charles Physician) Lymphocyte % 41 % Normal (applies [facility] to non-numeric (Ammir results) Charles Physician) Lymphocyte % 41 % Normal (applies [facility] to non-numeric (Ammir results) Charles Physician) Monocyte % 5.8 % Normal (applies [facility] to non-numeric (Ammir results) Charles Physician) Monocyte % 5.8 % Normal (applies [facility] to non-numeric (Ammir results) Charles Physician) Eosinophil % 1.2 % Normal (applies [facility] to non-numeric (Ammir results) Charles Physician) Eosinophil % 1.2 % Normal (applies [facility] to non-numeric (Ammir results) Charles Physician) Basophil % 0.8 % Normal (applies [facility] to non-numeric (Ammir results) Charles Physician) Basophil % 0.8 % Normal (applies [facility] to non-numeric (Ammir results) Charles Physician) Immature 0.10 % Normal (applies [facility] Granulocyte % to non-numeric (Ammir results) Charles Physician) Immature 0.10 % Normal (applies [facility] Granulocyte % to non-numeric (Ammir results) Charles Physician) NRBC % 0.0 % Normal (applies [facility] to non-numeric (Ammir results) Charles Physician) NRBC % 0.0 % Normal (applies [facility] to non-numeric (Ammir results) Charles Physician) NRBC Abs 0.00 Normal (applies [facility] 10(3)/uL to non-numeric (Ammir results) Charles Physician) NRBC Abs 0.00 Normal (applies [facility] 10(3)/uL to non-numeric (Ammir results) [facility] Physician) ID Date Data Source [id number] 12/24/2018 12:00:00 AM EDT [facility] ([facility]) Name Value Range Interpretation Description Data Sup porting Code Source(s) Document(s ) WBC 7.3 Normal (applies [facility] 10(3)/uL to non-numeric (Ammir results) [facility] Physician) WBC 7.3 Normal (applies [facility] 10(3)/uL to non-numeric (Ammir results) [facility] Physician) RBC 4.0 Normal (applies [facility] 10(6)/uL to non-numeric (Ammir results) Charles Physician) RBC 4.0 Normal (applies [facility] 10(6)/uL to non-numeric (Ammir results) Charles Physician) Hemoglobin 10.9 g/dL Below low normal [facility] [Mass/volume] (Ammir in Mixed venous Charles blood by Physician) Oximetry Hemoglobin 10.9 g/dL Below low normal [facility] [Mass/volume] (Ammir in Mixed venous Charles blood by Physician) Oximetry Hematocrit 33.9 % Below low normal [facility] [Pure volume (Ammir fraction] of Charles Blood by Physician) Automated count Hematocrit 33.9 % Below low normal [facility] [Pure volume (Ammir fraction] of Charles Blood by Physician) Automated count MCV 84.8 fL Normal (applies [facility] to non-numeric (Ammir results) [facility] Physician) MCV 84.8 fL Normal (applies [facility] to non-numeric (Ammir results) Charles Physician) MCH 27 pg Normal (applies [facility] to non-numeric (Ammir results) Charles Physician) MCH 27 pg Normal (applies [facility] to non-numeric (Ammir results) Charles Physician) MCHC 32 g/dL Normal (applies [facility] to non-numeric (Ammir results) Charles Physician) MCHC 32 g/dL Normal (applies [facility] to non-numeric (Ammir results) Charles Physician) RDWSD 42.3 fL Normal (applies [facility] to non-numeric (Ammir results) Charles Physician) RDWSD 42.3 fL Normal (applies [facility] to non-numeric (Ammir results) Charles Physician) RDWCV 13.7 % Normal (applies [facility] to non-numeric (Ammir results) Charles Physician) RDWCV 13.7 % Normal (applies [facility] to non-numeric (Ammir results) [facility] Physician) Platelet Count 330 Normal (applies [facility] 10(3)/uL to non-numeric (Ammir results) Charles Physician) Platelet Count 330 Normal (applies [facility] 10(3)/uL to non-numeric (Ammir results) Charles Physician) MPV 10.7 fL Normal (applies [facility] to non-numeric (Ammir results) [facility] Physician) MPV 10.7 fL Normal (applies [facility] to non-numeric (Ammir results) [facility] Physician) Neutrophil Abs 3.74 Normal (applies [facility] 10(3)/uL to non-numeric (Ammir results) [facility] Physician) Neutrophil Abs 3.74 Normal (applies [facility] 10(3)/uL to non-numeric (Ammir results) [facility] Physician) Lymphocyte Abs 2.95 Normal (applies [facility] 10(3)/uL to non-numeric (Ammir results) [facility] Physician) Lymphocyte Abs 2.95 Normal (applies [facility] 10(3)/uL to non-numeric (Ammir results) [facility] Physician) Monocyte Abs 0.42 Normal (applies [facility] 10(3)/uL to non-numeric (Ammir results) [facility] Physician) Monocyte Abs 0.42 Normal (applies [facility] 10(3)/uL to non-numeric (Ammir results) [facility] Physician) Eosinophil Abs 0.09 Normal (applies [facility] 10(3)/uL to non-numeric (Ammir results) [facility] Physician) Eosinophil Abs 0.09 Normal (applies [facility] 10(3)/uL to non-numeric (Ammir results) [facility] Physician) Basophil Abs 0.06 Normal (applies [facility] 10(3)/uL to non-numeric (Ammir results) [facility] Physician) Basophil Abs 0.06 Normal (applies [facility] 10(3)/uL to non-numeric (Ammir results) [facility] Physician) Immature 0.01 Normal (applies [facility] Granulocyte Abs 10(3)/uL to non-numeric (Ammir results) [facility] Physician) Immature 0.01 Normal (applies [facility] Granulocyte Abs 10(3)/uL to non-numeric (Ammir results) [facility] Physician) Neutrophil % 51.50 % Normal (applies [facility] to non-numeric (Ammir results) [facility] Physician) Neutrophil % 51.50 % Normal (applies [facility] to non-numeric (Ammir results) [facility] Physician) Lymphocyte % 41 % Normal (applies [facility] to non-numeric (Ammir results) [facility] Physician) Lymphocyte % 41 % Normal (applies [facility] to non-numeric (Ammir results) [facility] Physician) Monocyte % 5.8 % Normal (applies [facility] to non-numeric (Ammir results) [facility] Physician) Monocyte % 5.8 % Normal (applies [facility] to non-numeric (Ammir results) [facility] Physician) Eosinophil % 1.2 % Normal (applies [facility] to non-numeric (Ammir results) [facility] Physician) Eosinophil % 1.2 % Normal (applies [facility] to non-numeric (Ammir results) [facility] Physician) Basophil % 0.8 % Normal (applies [facility] to non-numeric (Ammir results) [facility] Physician) Basophil % 0.8 % Normal (applies [facility] to non-numeric (Ammir results) [facility] Physician) Immature 0.10 % Normal (applies [facility] Granulocyte % to non-numeric (Ammir results) [facility] Physician) Immature 0.10 % Normal (applies [facility] Granulocyte % to non-numeric (Ammir results) [facility] Physician) NRBC % 0.0 % Normal (applies [facility] to non-numeric (Ammir results) [facility] Physician) NRBC % 0.0 % Normal (applies [facility] to non-numeric (Ammir results) [facility] Physician) NRBC Abs 0.00 Normal (applies [facility] 10(3)/uL to non-numeric (Ammir results) [facility] Physician) NRBC Abs 0.00 Normal (applies [facility] 10(3)/uL to non-numeric (Ammir results) [facility] Physician) ID Date Data Source [id number] 12/24/2018 12:00:00 AM EDT [facility] ([facility]) Name Value Range Interpretation Description Data Sup porting Code Source(s) Document(s ) Transferrin 267 mg/dL Normal (applies [facility] [Mass/time] in to non-numeric (Ammir 24 hour Urine results) [facility] Physician) Transferrin 267 mg/dL Normal (applies [facility] [Mass/time] in to non-numeric (Ammir 24 hour Urine results) Charles Physician) TIBC 374.4 Normal (applies [facility] ug/dL to non-numeric (Ammir results) [facility] Physician) TIBC 374.4 Normal (applies [facility] ug/dL to non-numeric (Ammir results) [facility] Physician) UIBC 332.4 Normal (applies [facility] ug/dL to non-numeric (Ammir results) [facility] Physician) UIBC 332.4 Normal (applies [facility] ug/dL to non-numeric (Ammir results) [facility] Physician) %SATURATION 11.2 % Below low normal [facility] (Amm[facility] Physician) %SATURATION 11.2 % Below low normal [facility] (Amm[facility] Physician) ID Date Data Source [id number] 12/24/2018 12:00:00 AM EDT [facility] ([facility]ician) Name Value Range Interpretation Description Data Sup porting Code Source(s) Document(s ) Transferrin 267 mg/dL Normal (applies [facility] [Mass/time] in to non-numeric (Ammir 24 hour Urine results) [facility] Physician) Transferrin 267 mg/dL Normal (applies [facility] [Mass/time] in to non-numeric (Ammir 24 hour Urine results) Charles Physician) TIBC 374.4 Normal (applies [facility] ug/dL to non-numeric (Ammir results) [facility] Physician) TIBC 374.4 Normal (applies [facility] ug/dL to non-numeric (Ammir results) Charles Physician) UIBC 332.4 Normal (applies [facility] ug/dL to non-numeric (Ammir results) Charles Physician) UIBC 332.4 Normal (applies [facility] ug/dL to non-numeric (Ammir results) Charles Physician) %SATURATION 11.2 % Below low normal [facility] (Amm[facility] Physician) %SATURATION 11.2 % Below low normal [facility] ([facility]mm[facility] Physician) ID Date Data Source [id number] 12/24/2018 12:00:00 AM EDT [facility] ([facility] Physician) Name Value Range Interpretation Description Data Sup porting Code Source(s) Document(s ) Ferritin 14.4 Normal (applies to [facility] (Amm ir [Interpretat ng/mL non-numeric Charles ion] in results) Physician) Blood Ferritin 14.4 Normal (applies to [facility] (Amm ir [Interpretat ng/mL non-numeric Charles ion] in results) Physician) Blood ID Date Data Source [id number] 12/24/2018 12:00:00 AM EDT [facility] ([facility] Physician) Name Value Range Interpretation Description Data Sup porting Code Source(s) Document(s ) Ferritin 14.4 Normal (applies to [facility] (Amm ir [Interpretat ng/mL non-numeric Charles ion] in results) Physician) Blood Ferritin 14.4 Normal (applies to [facility] (Amm ir [Interpretat ng/mL non-numeric Charles ion] in results) Physician) Blood ID Date Data Source [id number] 12/24/2018 12:00:00 AM EDT [facility] ([facility]mm[facility] Physician) Name Value Range Interpretation Description Data Sup porting Code Source(s) Document(s ) T4 FREE, 0.85 Below low normal [facility] THYROXINE ng/dL (Ammir Charles Physician) T4 FREE, 0.85 Below low normal [facility] THYROXINE ng/dL (Ammir Charles Physician) TSH,3RD 1.60 Normal (applies to [facility] GENERATION uIU/mL non-numeric (Ammir results) Charles Physician) TSH,3RD 1.60 Normal (applies to [facility] GENERATION uIU/mL non-numeric (Ammir results) Charles Physician) ID Date Data Source [id number] 12/24/2018 12:00:00 AM EDT [facility] (Ammir [facility] Physician) Name Value Range Interpretation Description Data Sup porting Code Source(s) Document(s ) T4 FREE, 0.85 Below low normal [facility] THYROXINE ng/dL (Ammir Charles Physician) T4 FREE, 0.85 Below low normal [facility] THYROXINE ng/dL (Ammir Charles Physician) TSH,3RD 1.60 Normal (applies to [facility] GENERATION uIU/mL non-numeric (Ammir results) Charles Physician) TSH,3RD 1.60 Normal (applies to [facility] GENERATION uIU/mL non-numeric (Ammir results) [facility] Physician) ID Date Data Source [id number] 12/24/2018 12:00:00 AM EDT [facility] (Ammir [facility] Physician) Name Value Range Interpretation Description Data Sup porting Code Source(s) Document(s ) Cholesterol 132 Normal (applies [facility] [Moles/volume] mg/dL to non-numeric (Ammir in Pericardial results) Charles fluid Physician) Cholesterol 132 Normal (applies [facility] [Moles/volume] mg/dL to non-numeric (Ammir in Pericardial results) Charles fluid Physician) LDL CALCULATION 68.0 Normal (applies [facility] mg/dL to non-numeric (Ammir results) Charles Physician) LDL CALCULATION 68.0 Normal (applies [facility] mg/dL to non-numeric (Ammir results) Charles Physician) CHOL/HDL RATIO 2.40 Normal (applies [facility] ratio to non-numeric (Ammir results) Charles Physician) CHOL/HDL RATIO 2.40 Normal (applies [facility] ratio to non-numeric (Ammir results) Charles Physician) HDL CHOLESTEROL 55 mg/dL Normal (applies [facility] to non-numeric (Ammir results) Charles Physician) HDL CHOLESTEROL 55 mg/dL Normal (applies [facility] to non-numeric (Ammir results) Charles Physician) VLDL CALCULATION 9.0 Normal (applies [facility] mg/dl to non-numeric (Ammir results) Charles Physician) VLDL CALCULATION 9.0 Normal (applies [facility] mg/dl to non-numeric (Ammir results) Charles Physician) TRIGLYCERIDES 45 mg/dL Normal (applies [facility] to non-numeric (Ammir results) Charles Physician) TRIGLYCERIDES 45 mg/dL Normal (applies [facility] to non-numeric (Ammir results) Charles Physician) ID Date Data Source [id number] 12/24/2018 12:00:00 AM EDT [facility] (Ammir [facility] Physician) Name Value Range Interpretation Description Data Sup porting Code Source(s) Document(s ) Cholesterol 132 Normal (applies [facility] [Moles/volume] mg/dL to non-numeric (Ammir in Pericardial results) Charles fluid Physician) Cholesterol 132 Normal (applies [facility] [Moles/volume] mg/dL to non-numeric (Ammir in Pericardial results) Charles fluid Physician) LDL CALCULATION 68.0 Normal (applies [facility] mg/dL to non-numeric (Ammir results) Charles Physician) LDL CALCULATION 68.0 Normal (applies [facility] mg/dL to non-numeric (Ammir results) Charles Physician) CHOL/HDL RATIO 2.40 Normal (applies [facility] ratio to non-numeric (Ammir results) Charles Physician) HDL CHOLESTEROL 55 mg/dL Normal (applies [facility] to non-numeric (Ammir results) Charles Physician) CHOL/HDL RATIO 2.40 Normal (applies [facility] ratio to non-numeric (Ammir results) Charles Physician) HDL CHOLESTEROL 55 mg/dL Normal (applies [facility] to non-numeric (Ammir results) Charles Physician) VLDL CALCULATION 9.0 Normal (applies [facility] mg/dl to non-numeric (Ammir results) Charles Physician) VLDL CALCULATION 9.0 Normal (applies [facility] mg/dl to non-numeric (Ammir results) Charles Physician) TRIGLYCERIDES 45 mg/dL Normal (applies [facility] to non-numeric (Ammir results) Charles Physician) TRIGLYCERIDES 45 mg/dL Normal (applies [facility] to non-numeric (Ammir results) Charles Physician) ID Date Data Source [id number] 12/24/2018 12:00:00 AM EDT [facility] (Ammir [facility] Physician) Name Value Range Interpretation Description Data Sup porting Code Source(s) Document(s ) GLUCOSE 71 mg/dL Normal (applies [facility] NONFASTING,SERUM to non-numeric (Ammir results) [facility] Physician) GLUCOSE 71 mg/dL Normal (applies [facility] NONFASTING,SERUM to non-numeric (Ammir results) Charles Physician) SODIUM, SERUM 137 Normal (applies [facility] mEq/L to non-numeric (Ammir results) Charles Physician) SODIUM, SERUM 137 Normal (applies [facility] mEq/L to non-numeric (Ammir results) Charles Physician) POTASSIUM, SERUM 4.4 Normal (applies [facility] mEq/L to non-numeric (Ammir results) Charles Physician) POTASSIUM, SERUM 4.4 Normal (applies [facility] mEq/L to non-numeric (Ammir results) Charles Physician) CHLORIDE, SERUM 108 Normal (applies [facility] mEq/L to non-numeric (Ammir results) Charles Physician) CHLORIDE, SERUM 108 Normal (applies [facility] mEq/L to non-numeric (Ammir results) Charles Physician) Carbon dioxide 26 mEq/L Normal (applies [facility] [VFr/PPres] in to non-numeric (Ammir Gas delivery results) [facility] system Physician) Carbon dioxide 26 mEq/L Normal (applies [facility] [VFr/PPres] in to non-numeric (Ammir Gas delivery results) [facility] system Physician) Anion gap in 7.4 Normal (applies [facility] Body fluid mEq/L to non-numeric (Ammir results) [facility] Physician) Anion gap in 7.4 Normal (applies [facility] Body fluid mEq/L to non-numeric (Ammir results) Charles Physician) BLOOD UREA 23 mg/dL Normal (applies [facility] NITROGEN to non-numeric (Ammir results) Charles Physician) BLOOD UREA 23 mg/dL Normal (applies [facility] NITROGEN to non-numeric (Ammir results) Charles Physician) CREATININE, 0.70 Normal (applies [facility] SERUM mg/dL to non-numeric (Ammir results) Charles Physician) CREATININE, 0.70 Normal (applies [facility] SERUM mg/dL to non-numeric (Ammir results) Charles Physician) CALCIUM, SERUM 9.2 Normal (applies [facility] mg/dL to non-numeric (Ammir results) Charles Physician) CALCIUM, SERUM 9.2 Normal (applies [facility] mg/dL to non-numeric (Ammir results) Charles Physician) TOTAL PROTEIN 7.0 g/dL Normal (applies [facility] to non-numeric (Ammir results) Charles Physician) TOTAL PROTEIN 7.0 g/dL Normal (applies [facility] to non-numeric (Ammir results) Charles Physician) Microalbumin 3.9 g/dL Normal (applies [facility] [Mass/time] in to non-numeric (Ammir Urine collected results) Charles for unspecified Physician) duration Microalbumin 3.9 g/dL Normal (applies [facility] [Mass/time] in to non-numeric (Ammir Urine collected results) Charles for unspecified Physician) duration Globulin 3.1 gldl Normal (applies [facility] [Mass/time] in to non-numeric (Ammir 24 hour Urine results) Charles Physician) Globulin 3.1 gldl Normal (applies [facility] [Mass/time] in to non-numeric (Ammir 24 hour Urine results) Charles Physician) A/G RATIO 1.26 Normal (applies [facility] g/dl to non-numeric (Ammir results) Charles Physician) A/G RATIO 1.26 Normal (applies [facility] g/dl to non-numeric (Ammir results) Charles Physician) BILIRUBIN, TOTAL 0.2 Below low normal [facility] mg/dL (Ammir Charles Physician) BILIRUBIN, TOTAL 0.2 Below low normal [facility] mg/dL (Ammir Charles Physician) ALKALINE 88 U/L Normal (applies [facility] PHOSPHATASE, ALP to non-numeric (Ammir results) Charles Physician) ALKALINE 88 U/L Normal (applies [facility] PHOSPHATASE, ALP to non-numeric (Ammir results) Charles Physician) ALT (SGPT) 18 U/L Normal (applies [facility] to non-numeric (Ammir results) Charles Physician) ALT (SGPT) 18 U/L Normal (applies [facility] to non-numeric (Ammir results) Charles Physician) AST 23 U/L Normal (applies [facility] to non-numeric (Ammir results) Charles Physician) AST 23 U/L Normal (applies [facility] to non-numeric (Ammir results) Charles Physician) EGFR NON AFR 95 Normal (applies [facility] SUDANESE mL/min/1 to non-numeric (Ammir .73m2 results) Charles Physician) EGFR NON AFR 95 Normal (applies [facility] SUDANESE mL/min/1 to non-numeric (Ammir .73m2 results) Charles Physician) EGFR AFR 114 Normal (applies [facility] SUDANESE mL/min/1 to non-numeric (Ammir .73m2 results) Charles Physician) EGFR AFR 114 Normal (applies [facility] SUDANESE mL/min/1 to non-numeric (Ammir .73m2 results) Charles Physician) ID Date Data Source [id number] 12/24/2018 12:00:00 AM EDT [facility] (Ammir Charles Physician) Name Value Range Interpretation Description Data Sup porting Code Source(s) Document(s ) GLUCOSE 71 mg/dL Normal (applies [facility] NONFASTING,SERUM to non-numeric (Ammir results) Charles Physician) GLUCOSE 71 mg/dL Normal (applies [facility] NONFASTING,SERUM to non-numeric (Ammir results) Charles Physician) SODIUM, SERUM 137 Normal (applies [facility] mEq/L to non-numeric (Ammir results) Charles Physician) SODIUM, SERUM 137 Normal (applies [facility] mEq/L to non-numeric (Ammir results) Charles Physician) POTASSIUM, SERUM 4.4 Normal (applies [facility] mEq/L to non-numeric (Ammir results) Charles Physician) POTASSIUM, SERUM 4.4 Normal (applies [facility] mEq/L to non-numeric (Ammir results) Charles Physician) CHLORIDE, SERUM 108 Normal (applies [facility] mEq/L to non-numeric (Ammir results) Charles Physician) CHLORIDE, SERUM 108 Normal (applies [facility] mEq/L to non-numeric (Ammir results) Charles Physician) Carbon dioxide 26 mEq/L Normal (applies [facility] [VFr/PPres] in to non-numeric (Ammir Gas delivery results) [facility] system Physician) Carbon dioxide 26 mEq/L Normal (applies [facility] [VFr/PPres] in to non-numeric (Ammir Gas delivery results) [facility] system Physician) Anion gap in 7.4 Normal (applies [facility] Body fluid mEq/L to non-numeric (Ammir results) [facility] Physician) Anion gap in 7.4 Normal (applies [facility] Body fluid mEq/L to non-numeric (Ammir results) [facility] Physician) BLOOD UREA 23 mg/dL Normal (applies [facility] NITROGEN to non-numeric (Ammir results) Charles Physician) BLOOD UREA 23 mg/dL Normal (applies [facility] NITROGEN to non-numeric (Ammir results) [facility] Physician) CREATININE, 0.70 Normal (applies [facility] SERUM mg/dL to non-numeric (Ammir results) [facility] Physician) CREATININE, 0.70 Normal (applies [facility] SERUM mg/dL to non-numeric (Ammir results) [facility] Physician) CALCIUM, SERUM 9.2 Normal (applies [facility] mg/dL to non-numeric (Ammir results) [facility] Physician) CALCIUM, SERUM 9.2 Normal (applies [facility] mg/dL to non-numeric (Ammir results) [facility] Physician) TOTAL PROTEIN 7.0 g/dL Normal (applies [facility] to non-numeric (Ammir results) [facility] Physician) TOTAL PROTEIN 7.0 g/dL Normal (applies [facility] to non-numeric (Ammir results) [facility] Physician) Microalbumin 3.9 g/dL Normal (applies [facility] [Mass/time] in to non-numeric (Ammir Urine collected results) Charles for unspecified Physician) duration Microalbumin 3.9 g/dL Normal (applies [facility] [Mass/time] in to non-numeric (Ammir Urine collected results) Charles for unspecified Physician) duration Globulin 3.1 gldl Normal (applies [facility] [Mass/time] in to non-numeric (Ammir 24 hour Urine results) [facility] Physician) Globulin 3.1 gldl Normal (applies [facility] [Mass/time] in to non-numeric (Ammir 24 hour Urine results) Charles Physician) A/G RATIO 1.26 Normal (applies [facility] g/dl to non-numeric (Ammir results) [facility] Physician) A/G RATIO 1.26 Normal (applies [facility] g/dl to non-numeric (Ammir results) [facility] Physician) BILIRUBIN, TOTAL 0.2 Below low normal [facility] mg/dL (Ammir [facility] Physician) BILIRUBIN, TOTAL 0.2 Below low normal [facility] mg/dL (Ammir [facility] Physician) ALKALINE 88 U/L Normal (applies [facility] PHOSPHATASE, ALP to non-numeric (Ammir results) Charles Physician) ALKALINE 88 U/L Normal (applies [facility] PHOSPHATASE, ALP to non-numeric (Ammir results) Charles Physician) ALT (SGPT) 18 U/L Normal (applies [facility] to non-numeric (Ammir results) Charles Physician) ALT (SGPT) 18 U/L Normal (applies [facility] to non-numeric (Ammir results) Charles Physician) AST 23 U/L Normal (applies [facility] to non-numeric (Ammir results) Charles Physician) AST 23 U/L Normal (applies [facility] to non-numeric (Ammir results) [facility] Physician) EGFR NON AFR 95 Normal (applies [facility] SUDANESE mL/min/1 to non-numeric (Ammir .73m2 results) Charles Physician) EGFR NON AFR 95 Normal (applies [facility] SUD[place]ESE mL/min/1 to non-numeric (Ammir .73m2 results) [facility] Physician) EGFR AFR 114 Normal (applies [facility] SUDAN[place] mL/min/1 to non-numeric (Ammir .73m2 results) Charles Physician) EGFR AFR 114 Normal (applies [facility] SUDANESE mL/min/1 to non-numeric (Ammir .73m2 results) Charles Physician) ID Date Data Source [id number] 12/24/2018 12:00:00 AM EDT [facility] (Ammir [facility] Physician) Name Value Range Interpretation Description Data Sup porting Code Source(s) Document(s ) Transferrin 267 mg/dL Normal (applies [facility] [Mass/time] in to non-numeric (Ammir 24 hour Urine results) Charles Physician) Transferrin 267 mg/dL Normal (applies [facility] [Mass/time] in to non-numeric (Ammir 24 hour Urine results) Charles Physician) TIBC 374.4 Normal (applies [facility] ug/dL to non-numeric (Ammir results) Charles Physician) TIBC 374.4 Normal (applies [facility] ug/dL to non-numeric (Ammir results) Charles Physician) UIBC 332.4 Normal (applies [facility] ug/dL to non-numeric (Ammir results) Charles Physician) UIBC 332.4 Normal (applies [facility] ug/dL to non-numeric (Ammir results) Charles Physician) %SATURATION 11.2 % Below low normal [facility] (Ammir [facility] Physician) %SATURATION 11.2 % Below low normal [facility] (Ammir [facility] Physician) ID Date Data Source [id number] 12/24/2018 12:00:00 AM EDT [facility] (Ammir [facility] Physician) Name Value Range Interpretation Description Data Sup porting Code Source(s) Document(s ) Transferrin 267 mg/dL Normal (applies [facility] [Mass/time] in to non-numeric (Ammir 24 hour Urine results) [facility] Physician) Transferrin 267 mg/dL Normal (applies [facility] [Mass/time] in to non-numeric (Ammir 24 hour Urine results) Charles Physician) TIBC 374.4 Normal (applies [facility] ug/dL to non-numeric (Ammir results) Charles Physician) TIBC 374.4 Normal (applies [facility] ug/dL to non-numeric (Ammir results) Charles Physician) UIBC 332.4 Normal (applies [facility] ug/dL to non-numeric (Ammir results) Charles Physician) UIBC 332.4 Normal (applies [facility] ug/dL to non-numeric (Ammir results) Charles Physician) %SATURATION 11.2 % Below low normal [facility] (Ammir [facility] Physician) %SATURATION 11.2 % Below low normal [facility] (Ammir [facility] Physician) ID Date Data Source [id number] 12/24/2018 12:00:00 AM EDT [facility] (Ammir [facility] Physician) Name Value Range Interpretation Description Data Sup porting Code Source(s) Document(s ) Ferritin 14.4 Normal (applies to [facility] (Amm ir [Interpretat ng/mL non-numeric Charles ion] in results) Physician) Blood Ferritin 14.4 Normal (applies to [facility] (Amm ir [Interpretat ng/mL non-numeric Charles ion] in results) Physician) Blood ID Date Data Source [id number] 12/24/2018 12:00:00 AM EDT [facility] (Ammir [facility] Physician) Name Value Range Interpretation Description Data Sup porting Code Source(s) Document(s ) Ferritin 14.4 Normal (applies to [facility] (Amm ir [Interpretat ng/mL non-numeric Charles ion] in results) Physician) Blood Ferritin 14.4 Normal (applies to [facility] (Amm ir [Interpretat ng/mL non-numeric Charles ion] in results) Physician) Blood ID Date Data Source [id number] 12/24/2018 12:00:00 AM EDT [facility] (Ammir [facility] Physician) Name Value Range Interpretation Description Data Sup porting Code Source(s) Document(s ) T4 FREE, 0.85 Below low normal [facility] THYROXINE ng/dL (Ammir [facility] Physician) T4 FREE, 0.85 Below low normal [facility] THYROXINE ng/dL (Ammir [facility] Physician) TSH,3RD 1.60 Normal (applies to [facility] GENERATION uIU/mL non-numeric (Ammir results) [facility] Physician) TSH,3RD 1.60 Normal (applies to [facility] GENERATION uIU/mL non-numeric (Ammir results) [facility] Physician) ID Date Data Source [id number] 12/24/2018 12:00:00 AM EDT [facility] (Ammir [facility] Physician) Name Value Range Interpretation Description Data Sup porting Code Source(s) Document(s ) T4 FREE, 0.85 Below low normal [facility] THYROXINE ng/dL (Ammir [facility] Physician) T4 FREE, 0.85 Below low normal [facility] THYROXINE ng/dL (Ammir [facility] Physician) TSH,3RD 1.60 Normal (applies to [facility] GENERATION uIU/mL non-numeric (Ammir results) [facility] Physician) TSH,3RD 1.60 Normal (applies to [facility] GENERATION uIU/mL non-numeric (Ammir results) [facility] Physician) ID Date Data Source [id number] 12/24/2018 12:00:00 AM EDT [facility] (Ammir [facility] Physician) Name Value Range Interpretation Description Data Sup porting Code Source(s) Document(s ) Cholesterol 132 Normal (applies [facility] [Moles/volume] mg/dL to non-numeric (Ammir in Pericardial results) [facility] fluid Physician) Cholesterol 132 Normal (applies [facility] [Moles/volume] mg/dL to non-numeric (Ammir in Pericardial results) [facility] fluid Physician) LDL CALCULATION 68.0 Normal (applies [facility] mg/dL to non-numeric (Ammir results) [facility] Physician) LDL CALCULATION 68.0 Normal (applies [facility] mg/dL to non-numeric (Ammir results) [facility] Physician) CHOL/HDL RATIO 2.40 Normal (applies [facility] ratio to non-numeric (Ammir results) [facility] Physician) CHOL/HDL RATIO 2.40 Normal (applies [facility] ratio to non-numeric (Ammir results) [facility] Physician) HDL CHOLESTEROL 55 mg/dL Normal (applies [facility] to non-numeric (Ammir results) Charles Physician) HDL CHOLESTEROL 55 mg/dL Normal (applies [facility] to non-numeric (Ammir results) Charles Physician) VLDL CALCULATION 9.0 Normal (applies [facility] mg/dl to non-numeric (Ammir results) [facility] Physician) VLDL CALCULATION 9.0 Normal (applies [facility] mg/dl to non-numeric (Ammir results) Charles Physician) TRIGLYCERIDES 45 mg/dL Normal (applies [facility] to non-numeric (Ammir results) Charles Physician) TRIGLYCERIDES 45 mg/dL Normal (applies [facility] to non-numeric (Ammir results) [facility] Physician) ID Date Data Source [id number] 12/24/2018 12:00:00 AM EDT [facility] (Ammir [facility] Physician) Name Value Range Interpretation Code Description Data Faiza rce(s) Supporting Document(s ) IRON, 42 ug/dL Normal (applies to [facility] (Amm ir TOTAL non-numeric Charles results) Physician) IRON, 42 ug/dL Normal (applies to [facility] (Amm ir TOTAL non-numeric Charles results) Physician) ID Date Data Source [id number] 12/24/2018 12:00:00 AM EDT [facility] (Ammir [facility] Physician) Name Value Range Interpretation Code Description Data Faiza rce(s) Supporting Document(s ) IRON, 42 ug/dL Normal (applies to [facility] (Amm ir TOTAL non-numeric Charles results) Physician) IRON, 42 ug/dL Normal (applies to [facility] (Amm ir TOTAL non-numeric Charles results) Physician) ID Date Data Source [id number] 12/24/2018 12:00:00 AM EDT [facility] (Ammir [facility] Physician) Name Value Range Interpretation Description Data Sup porting Code Source(s) Document(s ) RBC 4.0 Normal (applies [facility] 10(6)/uL to non-numeric (Ammir results) [facility] Physician) RBC 4.0 Normal (applies [facility] 10(6)/uL to non-numeric (Ammir results) [facility] Physician) Hemoglobin 10.9 g/dL Below low normal [facility] [Mass/volume] (Ammir in Mixed venous Charles blood by Physician) Oximetry Hemoglobin 10.9 g/dL Below low normal [facility] [Mass/volume] (Ammir in Mixed venous Charles blood by Physician) Oximetry Hematocrit 33.9 % Below low normal [facility] [Pure volume (Ammir fraction] of [facility] Blood by Physician) Automated count Hematocrit 33.9 % Below low normal [facility] [Pure volume (Ammir fraction] of [facility] Blood by Physician) Automated count MCV 84.8 fL Normal (applies [facility] to non-numeric (Ammir results) [facility] Physician) MCV 84.8 fL Normal (applies [facility] to non-numeric (Ammir results) Charles Physician) MCH 27 pg Normal (applies [facility] to non-numeric (Ammir results) Charles Physician) MCH 27 pg Normal (applies [facility] to non-numeric (Ammir results) Charles Physician) MCHC 32 g/dL Normal (applies [facility] to non-numeric (Ammir results) Charles Physician) MCHC 32 g/dL Normal (applies [facility] to non-numeric (Ammir results) Charles Physician) RDWSD 42.3 fL Normal (applies [facility] to non-numeric (Ammir results) Charles Physician) RDWSD 42.3 fL Normal (applies [facility] to non-numeric (Ammir results) Charles Physician) RDWCV 13.7 % Normal (applies [facility] to non-numeric (Ammir results) [facility] Physician) RDWCV 13.7 % Normal (applies [facility] to non-numeric (Ammir results) [facility] Physician) Platelet Count 330 Normal (applies [facility] 10(3)/uL to non-numeric (Ammir results) [facility] Physician) Platelet Count 330 Normal (applies [facility] 10(3)/uL to non-numeric (Ammir results) Charles Physician) MPV 10.7 fL Normal (applies [facility] to non-numeric (Ammir results) [facility] Physician) MPV 10.7 fL Normal (applies [facility] to non-numeric (Ammir results) [facility] Physician) Neutrophil Abs 3.74 Normal (applies [facility] 10(3)/uL to non-numeric (Ammir results) [facility] Physician) Neutrophil Abs 3.74 Normal (applies [facility] 10(3)/uL to non-numeric (Ammir results) [facility] Physician) Lymphocyte Abs 2.95 Normal (applies [facility] 10(3)/uL to non-numeric (Ammir results) [facility] Physician) Lymphocyte Abs 2.95 Normal (applies [facility] 10(3)/uL to non-numeric (Ammir results) [facility] Physician) Monocyte Abs 0.42 Normal (applies [facility] 10(3)/uL to non-numeric (Ammir results) [facility] Physician) Monocyte Abs 0.42 Normal (applies [facility] 10(3)/uL to non-numeric (Ammir results) [facility] Physician) Eosinophil Abs 0.09 Normal (applies [facility] 10(3)/uL to non-numeric (Ammir results) [facility] Physician) Eosinophil Abs 0.09 Normal (applies [facility] 10(3)/uL to non-numeric (Ammir results) [facility] Physician) Basophil Abs 0.06 Normal (applies [facility] 10(3)/uL to non-numeric (Ammir results) [facility] Physician) Basophil Abs 0.06 Normal (applies [facility] 10(3)/uL to non-numeric (Ammir results) Charles Physician) Immature 0.01 Normal (applies [facility] Granulocyte Abs 10(3)/uL to non-numeric (Ammir results) Charles Physician) Immature 0.01 Normal (applies [facility] Granulocyte Abs 10(3)/uL to non-numeric (Ammir results) Charles Physician) Neutrophil % 51.50 % Normal (applies [facility] to non-numeric (Ammir results) Charles Physician) Neutrophil % 51.50 % Normal (applies [facility] to non-numeric (Ammir results) Charles Physician) Lymphocyte % 41 % Normal (applies [facility] to non-numeric (Ammir results) Charles Physician) Lymphocyte % 41 % Normal (applies [facility] to non-numeric (Ammir results) Charles Physician) Monocyte % 5.8 % Normal (applies [facility] to non-numeric (Ammir results) Charles Physician) Monocyte % 5.8 % Normal (applies [facility] to non-numeric (Ammir results) Charles Physician) Eosinophil % 1.2 % Normal (applies [facility] to non-numeric (Ammir results) Charles Physician) Eosinophil % 1.2 % Normal (applies [facility] to non-numeric (Ammir results) Charles Physician) Basophil % 0.8 % Normal (applies [facility] to non-numeric (Ammir results) Charles Physician) Basophil % 0.8 % Normal (applies [facility] to non-numeric (Ammir results) Charles Physician) Immature 0.10 % Normal (applies [facility] Granulocyte % to non-numeric (Ammir results) Charles Physician) Immature 0.10 % Normal (applies [facility] Granulocyte % to non-numeric (Ammir results) Charles Physician) NRBC % 0.0 % Normal (applies [facility] to non-numeric (Ammir results) Charles Physician) NRBC % 0.0 % Normal (applies [facility] to non-numeric (Ammir results) Charles Physician) NRBC Abs 0.00 Normal (applies [facility] 10(3)/uL to non-numeric (Ammir results) Charles Physician) NRBC Abs 0.00 Normal (applies [facility] 10(3)/uL to non-numeric (Ammir results) Charles Physician) Hemoglobin A1c 5.7 % Above high normal [facility] in Blood (Ammir Charles Physician) Hemoglobin A1c 5.7 % Above high normal [facility] in Blood (Ammir Charles Physician) ID Date Data Source [id number] 12/24/2018 12:00:00 AM EDT [facility] (Ammir [facility] Physician) Name Value Range Interpretation Description Data Sup porting Code Source(s) Document(s ) Hemoglobin A1c 5.7 % Above high normal [facility] (Ammir in Blood Charles Physician) Hemoglobin A1c 5.7 % Above high normal [facility] (Ammir in Blood Charles Physician) ID Date Data Source [id number] 12/24/2018 12:00:00 AM EDT [facility] (Ammir [facility] Physician) Name Value Range Interpretation Description Data Sup porting Code Source(s) Document(s ) VITAMIN D 26.99 Below low normal [facility] (Ammir 25-HYDROXY ng/mL Charles Physician) VITAMIN D 26.99 Below low normal [facility] (Ammir 25-HYDROXY ng/mL Charles Physician) ID Date Data Source [id number] 12/24/2018 12:00:00 AM EDT [facility] (Ammir [facility] Physician) Name Value Range Interpretation Description Data Sup porting Code Source(s) Document(s ) VITAMIN D 26.99 Below low normal [facility] (Ammir 25-HYDROXY ng/mL Charles Physician) VITAMIN D 26.99 Below low normal [facility] (Ammir 25-HYDROXY ng/mL Charles Physician) ID Date Data Source [id number] 12/24/2018 12:00:00 AM EDT [facility] (Ammir [facility] Physician) Name Value Range Interpretation Description Data Sup porting Code Source(s) Document(s ) FOLATE SERUM 25.9 Normal (applies to [facility] ( Ammir ng/mL non-numeric Charles results) Physician) FOLATE SERUM 25.9 Normal (applies to [facility] ( Ammir ng/mL non-numeric Charles results) Physician) VITAMIN B12 881 pg/mL Normal (applies to [facility] (A mmir non-numeric Charles results) Physician) VITAMIN B12 881 pg/mL Normal (applies to [facility] (A mmir non-numeric Charles results) Physician) ID Date Data Source [id number] 12/24/2018 12:00:00 AM EDT [facility] (Ammir [facility] Physician) Name Value Range Interpretation Description Data Sup porting Code Source(s) Document(s ) FOLATE SERUM 25.9 Normal (applies to [facility] ( Ammir ng/mL non-numeric Charles results) Physician) FOLATE SERUM 25.9 Normal (applies to [facility] ( Ammir ng/mL non-numeric Charles results) Physician) VITAMIN B12 881 pg/mL Normal (applies to [facility] (A mmir non-numeric Charles results) Physician) VITAMIN B12 881 pg/mL Normal (applies to [facility] (A mmir non-numeric Charles results) Physician) ID Date Data Source [id number] 12/24/2018 12:00:00 AM EDT [facility] (Ammir [facility] Physician) Name Value Range Interpretation Description Data Sup porting Code Source(s) Document(s ) WBC 7.3 Normal (applies [facility] 10(3)/uL to non-numeric (Ammir results) [facility] Physician) WBC 7.3 Normal (applies [facility] 10(3)/uL to non-numeric (Ammir results) Charles Physician) RBC 4.0 Normal (applies [facility] 10(6)/uL to non-numeric (Ammir results) Charles Physician) RBC 4.0 Normal (applies [facility] 10(6)/uL to non-numeric (Ammir results) Charles Physician) Hemoglobin 10.9 g/dL Below low normal [facility] [Mass/volume] (Ammir in Mixed venous Charles blood by Physician) Oximetry Hemoglobin 10.9 g/dL Below low normal [facility] [Mass/volume] (Ammir in Mixed venous Charles blood by Physician) Oximetry Hematocrit 33.9 % Below low normal [facility] [Pure volume (Ammir fraction] of [facility] Blood by Physician) Automated count Hematocrit 33.9 % Below low normal [facility] [Pure volume (Ammir fraction] of Charles Blood by Physician) Automated count MCV 84.8 fL Normal (applies [facility] to non-numeric (Ammir results) Charles Physician) MCV 84.8 fL Normal (applies [facility] to non-numeric (Ammir results) Charles Physician) MCH 27 pg Normal (applies [facility] to non-numeric (Ammir results) Charles Physician) MCH 27 pg Normal (applies [facility] to non-numeric (Ammir results) Charles Physician) MCHC 32 g/dL Normal (applies [facility] to non-numeric (Ammir results) Charles Physician) MCHC 32 g/dL Normal (applies [facility] to non-numeric (Ammir results) Charles Physician) RDWSD 42.3 fL Normal (applies [facility] to non-numeric (Ammir results) Charles Physician) RDWSD 42.3 fL Normal (applies [facility] to non-numeric (Ammir results) Charles Physician) RDWCV 13.7 % Normal (applies [facility] to non-numeric (Ammir results) Charles Physician) RDWCV 13.7 % Normal (applies [facility] to non-numeric (Ammir results) Charles Physician) Platelet Count 330 Normal (applies [facility] 10(3)/uL to non-numeric (Ammir results) Charles Physician) Platelet Count 330 Normal (applies [facility] 10(3)/uL to non-numeric (Ammir results) Charles Physician) MPV 10.7 fL Normal (applies [facility] to non-numeric (Ammir results) Charles Physician) MPV 10.7 fL Normal (applies [facility] to non-numeric (Ammir results) Charles Physician) Neutrophil Abs 3.74 Normal (applies [facility] 10(3)/uL to non-numeric (Ammir results) Charles Physician) Neutrophil Abs 3.74 Normal (applies [facility] 10(3)/uL to non-numeric (Ammir results) Charles Physician) Lymphocyte Abs 2.95 Normal (applies [facility] 10(3)/uL to non-numeric (Ammir results) Charles Physician) Lymphocyte Abs 2.95 Normal (applies [facility] 10(3)/uL to non-numeric (Ammir results) Charles Physician) Monocyte Abs 0.42 Normal (applies [facility] 10(3)/uL to non-numeric (Ammir results) Charles Physician) Monocyte Abs 0.42 Normal (applies [facility] 10(3)/uL to non-numeric (Ammir results) Charles Physician) Eosinophil Abs 0.09 Normal (applies [facility] 10(3)/uL to non-numeric (Ammir results) Charles Physician) Eosinophil Abs 0.09 Normal (applies [facility] 10(3)/uL to non-numeric (Ammir results) Charles Physician) Basophil Abs 0.06 Normal (applies [facility] 10(3)/uL to non-numeric (Ammir results) Charles Physician) Basophil Abs 0.06 Normal (applies [facility] 10(3)/uL to non-numeric (Ammir results) Charles Physician) Immature 0.01 Normal (applies [facility] Granulocyte Abs 10(3)/uL to non-numeric (Ammir results) Charles Physician) Immature 0.01 Normal (applies [facility] Granulocyte Abs 10(3)/uL to non-numeric (Ammir results) Charles Physician) Neutrophil % 51.50 % Normal (applies [facility] to non-numeric (Ammir results) Charles Physician) Neutrophil % 51.50 % Normal (applies [facility] to non-numeric (Ammir results) Charles Physician) Lymphocyte % 41 % Normal (applies [facility] to non-numeric (Ammir results) Charles Physician) Lymphocyte % 41 % Normal (applies [facility] to non-numeric (Ammir results) Charles Physician) Monocyte % 5.8 % Normal (applies [facility] to non-numeric (Ammir results) Charles Physician) Monocyte % 5.8 % Normal (applies [facility] to non-numeric (Ammir results) Charles Physician) Eosinophil % 1.2 % Normal (applies [facility] to non-numeric (Ammir results) Charles Physician) Eosinophil % 1.2 % Normal (applies [facility] to non-numeric (Ammir results) Charles Physician) Basophil % 0.8 % Normal (applies [facility] to non-numeric (Ammir results) Charles Physician) Basophil % 0.8 % Normal (applies [facility] to non-numeric (Ammir results) Charles Physician) Immature 0.10 % Normal (applies [facility] Granulocyte % to non-numeric (Ammir results) Charles Physician) Immature 0.10 % Normal (applies [facility] Granulocyte % to non-numeric (Ammir results) Charles Physician) NRBC % 0.0 % Normal (applies [facility] to non-numeric (Ammir results) Charles Physician) NRBC % 0.0 % Normal (applies [facility] to non-numeric (Ammir results) Charles Physician) NRBC Abs 0.00 Normal (applies [facility] 10(3)/uL to non-numeric (Ammir results) Charles Physician) NRBC Abs 0.00 Normal (applies [facility] 10(3)/uL to non-numeric (Ammir results) Charles Physician) ID Date Data Source [id number] 12/24/2018 12:00:00 AM EDT [facility] (Ammir Charles Physician) Name Value Range Interpretation Description Data Sup porting Code Source(s) Document(s ) WBC 7.3 Normal (applies [facility] 10(3)/uL to non-numeric (Ammir results) Charles Physician) WBC 7.3 Normal (applies [facility] 10(3)/uL to non-numeric (Ammir results) Charles Physician) RBC 4.0 Normal (applies [facility] 10(6)/uL to non-numeric (Ammir results) Charles Physician) RBC 4.0 Normal (applies [facility] 10(6)/uL to non-numeric (Ammir results) Charles Physician) Hemoglobin 10.9 g/dL Below low normal [facility] [Mass/volume] (Ammir in Mixed venous Charles blood by Physician) Oximetry Hemoglobin 10.9 g/dL Below low normal [facility] [Mass/volume] (Ammir in Mixed venous Charles blood by Physician) Oximetry Hematocrit 33.9 % Below low normal [facility] [Pure volume (Ammir fraction] of [facility] Blood by Physician) Automated count Hematocrit 33.9 % Below low normal [facility] [Pure volume (Ammir fraction] of Charles Blood by Physician) Automated count MCV 84.8 fL Normal (applies [facility] to non-numeric (Ammir results) Charles Physician) MCV 84.8 fL Normal (applies [facility] to non-numeric (Ammir results) Charles Physician) MCH 27 pg Normal (applies [facility] to non-numeric (Ammir results) Charles Physician) MCH 27 pg Normal (applies [facility] to non-numeric (Ammir results) Charles Physician) MCHC 32 g/dL Normal (applies [facility] to non-numeric (Ammir results) Charles Physician) MCHC 32 g/dL Normal (applies [facility] to non-numeric (Ammir results) Charles Physician) RDWSD 42.3 fL Normal (applies [facility] to non-numeric (Ammir results) Charles Physician) RDWSD 42.3 fL Normal (applies [facility] to non-numeric (Ammir results) Charles Physician) RDWCV 13.7 % Normal (applies [facility] to non-numeric (Ammir results) Charles Physician) RDWCV 13.7 % Normal (applies [facility] to non-numeric (Ammir results) Charles Physician) Platelet Count 330 Normal (applies [facility] 10(3)/uL to non-numeric (Ammir results) Charles Physician) Platelet Count 330 Normal (applies [facility] 10(3)/uL to non-numeric (Ammir results) Charles Physician) MPV 10.7 fL Normal (applies [facility] to non-numeric (Ammir results) Charles Physician) MPV 10.7 fL Normal (applies [facility] to non-numeric (Ammir results) Charles Physician) Neutrophil Abs 3.74 Normal (applies [facility] 10(3)/uL to non-numeric (Ammir results) Charles Physician) Neutrophil Abs 3.74 Normal (applies [facility] 10(3)/uL to non-numeric (Ammir results) Charles Physician) Lymphocyte Abs 2.95 Normal (applies [facility] 10(3)/uL to non-numeric (Ammir results) Charles Physician) Lymphocyte Abs 2.95 Normal (applies [facility] 10(3)/uL to non-numeric (Ammir results) Charles Physician) Monocyte Abs 0.42 Normal (applies [facility] 10(3)/uL to non-numeric (Ammir results) Charles Physician) Monocyte Abs 0.42 Normal (applies [facility] 10(3)/uL to non-numeric (Ammir results) Charles Physician) Eosinophil Abs 0.09 Normal (applies [facility] 10(3)/uL to non-numeric (Ammir results) Charles Physician) Eosinophil Abs 0.09 Normal (applies [facility] 10(3)/uL to non-numeric (Ammir results) Charles Physician) Basophil Abs 0.06 Normal (applies [facility] 10(3)/uL to non-numeric (Ammir results) [facility] Physician) Basophil Abs 0.06 Normal (applies [facility] 10(3)/uL to non-numeric (Ammir results) [facility] Physician) Immature 0.01 Normal (applies [facility] Granulocyte Abs 10(3)/uL to non-numeric (Ammir results) [facility] Physician) Immature 0.01 Normal (applies [facility] Granulocyte Abs 10(3)/uL to non-numeric (Ammir results) [facility] Physician) Neutrophil % 51.50 % Normal (applies [facility] to non-numeric (Ammir results) [facility] Physician) Neutrophil % 51.50 % Normal (applies [facility] to non-numeric (Ammir results) [facility] Physician) Lymphocyte % 41 % Normal (applies [facility] to non-numeric (Ammir results) [facility] Physician) Lymphocyte % 41 % Normal (applies [facility] to non-numeric (Ammir results) [facility] Physician) Monocyte % 5.8 % Normal (applies [facility] to non-numeric (Ammir results) [facility] Physician) Monocyte % 5.8 % Normal (applies [facility] to non-numeric (Ammir results) [facility] Physician) Eosinophil % 1.2 % Normal (applies [facility] to non-numeric (Ammir results) [facility] Physician) Eosinophil % 1.2 % Normal (applies [facility] to non-numeric (Ammir results) [facility] Physician) Basophil % 0.8 % Normal (applies [facility] to non-numeric (Ammir results) [facility] Physician) Basophil % 0.8 % Normal (applies [facility] to non-numeric (Ammir results) [facility] Physician) Immature 0.10 % Normal (applies [facility] Granulocyte % to non-numeric (Ammir results) [facility] Physician) Immature 0.10 % Normal (applies [facility] Granulocyte % to non-numeric (Ammir results) [facility] Physician) NRBC % 0.0 % Normal (applies [facility] to non-numeric (Ammir results) [facility] Physician) NRBC % 0.0 % Normal (applies [facility] to non-numeric (Ammir results) [facility] Physician) NRBC Abs 0.00 Normal (applies [facility] 10(3)/uL to non-numeric (Ammir results) [facility] Physician) NRBC Abs 0.00 Normal (applies [facility] 10(3)/uL to non-numeric (Ammir results) [facility] Physician) ID Date Data Source [id number] 12/24/2018 12:00:00 AM EDT [facility] (Ammir [facility] Physician) Name Value Range Interpretation Description Data Sup porting Code Source(s) Document(s ) Cholesterol 132 Normal (applies [facility] [Moles/volume] mg/dL to non-numeric (Ammir in Pericardial results) [facility] fluid Physician) Cholesterol 132 Normal (applies [facility] [Moles/volume] mg/dL to non-numeric (Ammir in Pericardial results) [facility] fluid Physician) LDL CALCULATION 68.0 Normal (applies [facility] mg/dL to non-numeric (Ammir results) [facility] Physician) LDL CALCULATION 68.0 Normal (applies [facility] mg/dL to non-numeric (Ammir results) [facility] Physician) CHOL/HDL RATIO 2.40 Normal (applies [facility] ratio to non-numeric (Ammir results) [facility] Physician) CHOL/HDL RATIO 2.40 Normal (applies [facility] ratio to non-numeric (Ammir results) [facility] Physician) HDL CHOLESTEROL 55 mg/dL Normal (applies [facility] to non-numeric (Ammir results) [facility] Physician) HDL CHOLESTEROL 55 mg/dL Normal (applies [facility] to non-numeric (Ammir results) [facility] Physician) VLDL CALCULATION 9.0 Normal (applies [facility] mg/dl to non-numeric (Ammir results) [facility] Physician) VLDL CALCULATION 9.0 Normal (applies [facility] mg/dl to non-numeric (Ammir results) [facility] Physician) TRIGLYCERIDES 45 mg/dL Normal (applies [facility] to non-numeric (Ammir results) [facility] Physician) TRIGLYCERIDES 45 mg/dL Normal (applies [facility] to non-numeric (Ammir results) [facility] Physician) ID Date Data Source [id number] 03/27/2018 12:00:00 AM EST [facility] (Ammir [facility] Physician) Name Value Range Interpretation Description Data Sup porting Code Source(s) Document(s ) IRON, TOTAL 34 ug/dL Below low normal [facility] (Ammir [facility] Physician) Transferrin 240 mg/dL Normal (applies [facility] [Mass/time] in to non-numeric (Ammir 24 hour Urine results) [facility] Physician) TIBC 336.5 Normal (applies [facility] ug/dL to non-numeric (Ammir results) [facility] Physician) UIBC 302.5 Normal (applies [facility] ug/dL to non-numeric (Ammir results) [facility] Physician) %SATURATION 10.1 % Below low normal [facility] (Ammir [facility] Physician) ID Date Data Source [id number] 03/27/2018 12:00:00 AM EST [facility] (Ammir [facility] Physician) Name Value Range Interpretation Description Data Sup porting Code Source(s) Document(s ) WBC 4.8 Normal (applies [facility] 10(3)/uL to non-numeric (Ammir results) [facility] Physician) RBC 4.6 Normal (applies [facility] 10(6)/uL to non-numeric (Ammir results) [facility] Physician) Hemoglobin 12.7 g/dL Normal (applies [facility] [Mass/volume] to non-numeric (Ammir in Mixed venous results) Charles blood by Physician) Oximetry Hematocrit 38.0 % Normal (applies [facility] [Pure volume to non-numeric (Ammir fraction] of results) [facility] Blood by Physician) Automated count MCV 82.6 fL Normal (applies [facility] to non-numeric (Ammir results) [facility] Physician) MCH 28 pg Normal (applies [facility] to non-numeric (Ammir results) [facility] Physician) MCHC 33 g/dL Normal (applies [facility] to non-numeric (Ammir results) [facility] Physician) RDWSD 38.9 fL Normal (applies [facility] to non-numeric (Ammir results) [facility] Physician) RDWCV 13.0 % Normal (applies [facility] to non-numeric (Ammir results) [facility] Physician) Platelet Count 247 Normal (applies [facility] 10(3)/uL to non-numeric (Ammir results) [facility] Physician) MPV 10.7 fL Normal (applies [facility] to non-numeric (Ammir results) [facility] Physician) Neutrophil Abs 1.77 Normal (applies [facility] 10(3)/uL to non-numeric (Ammir results) [facility] Physician) Lymphocyte Abs 2.69 Normal (applies [facility] 10(3)/uL to non-numeric (Ammir results) [facility] Physician) Monocyte Abs 0.29 Normal (applies [facility] 10(3)/uL to non-numeric (Ammir results) [facility] Physician) Eosinophil Abs 0.04 Normal (applies [facility] 10(3)/uL to non-numeric (Ammir results) [facility] Physician) Immature 0.01 Normal (applies [facility] Granulocyte Abs 10(3)/uL to non-numeric (Ammir results) [facility] Physician) Neutrophil % 36.70 % Below low normal [facility] (Ammir [facility] Physician) Lymphocyte % 56 % Above high normal [facility] (Ammir [facility] Physician) Monocyte % 6.0 % Normal (applies [facility] to non-numeric (Ammir results) [facility] Physician) Eosinophil % 0.8 % Normal (applies [facility] to non-numeric (Ammir results) [facility] Physician) Basophil % 0.6 % Normal (applies [facility] to non-numeric (Ammir results) [facility] Physician) Immature 0.20 % Normal (applies [facility] Granulocyte % to non-numeric (Ammir results) [facility] Physician) ID Date Data Source [id number] 03/27/2018 12:00:00 AM EST [facility] (Ammir [facility] Physician) Name Value Range Interpretation Description Data Sup porting Code Source(s) Document(s ) Ferritin 52.2 Normal (applies to [facility] (Amm ir [Interpretat ng/mL non-numeric Charles ion] in results) Physician) Blood ID Date Data Source [id number] 03/27/2018 12:00:00 AM EST [facility] (Ammir [facility] Physician) Name Value Range Interpretation Description Data Sup porting Code Source(s) Document(s ) T4 FREE, 1.09 Normal (applies to [facility] THYROXINE ng/dL non-numeric (Ammir results) [facility] Physician) TSH,3RD 3.30 Normal (applies to [facility] GENERATION uIU/mL non-numeric (Ammir results) [facility] Physician) ID Date Data Source [id number] 03/27/2018 12:00:00 AM EST [facility] (Ammir [facility] Physician) Name Value Range Interpretation Description Data Sup porting Code Source(s) Document(s ) Hemoglobin A1c 5.8 % Above high normal [facility] (Ammir in Blood [facility] Physician) ID Date Data Source [id number] 03/27/2018 12:00:00 AM EST [facility] (Ammir [facility] Physician) Name Value Range Interpretation Description Data Sup porting Code Source(s) Document(s ) GLUCOSE 87 mg/dL Normal (applies [facility] NONFASTING,SERUM to non-numeric (Ammir results) [facility] Physician) SODIUM, SERUM 138 Normal (applies [facility] mEq/L to non-numeric (Ammir results) [facility] Physician) POTASSIUM, SERUM 4.1 Normal (applies [facility] mEq/L to non-numeric (Ammir results) [facility] Physician) CHLORIDE, SERUM 107 Normal (applies [facility] mEq/L to non-numeric (Ammir results) [facility] Physician) Carbon dioxide 22 mEq/L Normal (applies [facility] [VFr/PPres] in to non-numeric (Ammir Gas delivery results) [facility] system Physician) Anion gap in 13.1 Normal (applies [facility] Body fluid mEq/L to non-numeric (Ammir results) [facility] Physician) BLOOD UREA 13 mg/dL Normal (applies [facility] NITROGEN to non-numeric (Ammir results) [facility] Physician) CREATININE, 0.80 Normal (applies [facility] SERUM mg/dL to non-numeric (Ammir results) [facility] Physician) CALCIUM, SERUM 9.0 Normal (applies [facility] mg/dL to non-numeric (Ammir results) [facility] Physician) TOTAL PROTEIN 7.9 g/dL Normal (applies [facility] to non-numeric (Ammir results) [facility] Physician) Microalbumin 4.2 g/dL Normal (applies [facility] [Mass/time] in to non-numeric (Ammir Urine collected results) Charles for unspecified Physician) duration Globulin 3.7 gldl Normal (applies [facility] [Mass/time] in to non-numeric (Ammir 24 hour Urine results) [facility] Physician) A/G RATIO 1.14 Normal (applies [facility] g/dl to non-numeric (Ammir results) [facility] Physician) BILIRUBIN, TOTAL 0.2 Below low normal [facility] mg/dL (Ammir [facility] Physician) ALKALINE 78 U/L Normal (applies [facility] PHOSPHATASE, ALP to non-numeric (Ammir results) [facility] Physician) ALT (SGPT) 20 U/L Normal (applies [facility] to non-numeric (Ammir results) [facility] Physician) AST 26 U/L Normal (applies [facility] to non-numeric (Ammir results) [facility] Physician) EGFR NON AFR 81 Above high normal [facility] SUDANESE mL/min/1 (Ammir .73m2 [facility] Physician) EGFR AFR 98 Above high normal [facility] SUDANESE mL/min/1 (Ammir .73m2 [facility] Physician) ID Date Data Source [id number] 03/27/2018 12:00:00 AM EST [facility] (Ammir [facility] Physician) Name Value Range Interpretation Description Data Sup porting Code Source(s) Document(s ) Cholesterol 158 Normal (applies [facility] [Moles/volume] mg/dL to non-numeric (Ammir in Pericardial results) Charles fluid Physician) LDL CALCULATION 84.4 Normal (applies [facility] mg/dL to non-numeric (Ammir results) [facility] Physician) CHOL/HDL RATIO 2.87 Normal (applies [facility] ratio to non-numeric (Ammir results) [facility] Physician) HDL CHOLESTEROL 55 mg/dL Above high normal [facility] (Ammir [facility] Physician) VLDL CALCULATION 18.6 Normal (applies [facility] mg/dl to non-numeric (Ammir results) [facility] Physician) TRIGLYCERIDES 93 mg/dL Normal (applies [facility] to non-numeric (Ammir results) [facility] Physician) ID Date Data Source [id number] 03/27/2018 12:00:00 AM EST [facility] (Ammir [facility] Physician) Name Value Range Interpretation Description Data Sup porting Code Source(s) Document(s ) VITAMIN D 15.16 Below low normal [facility] (Ammir 25-HYDROXY ng/mL [facility] Physician) ID Date Data Source [id number] 03/27/2018 12:00:00 AM EST [facility] (Ammir [facility] Physician) Name Value Range Interpretation Description Data Sup porting Code Source(s) Document(s ) FOLATE 20.7 ng/mL Above high normal [facility] (Amm ir SERUM [facility] Physician) ID Date Data Source [id number] 03/27/2018 12:00:00 AM EST [facility] (Ammir [facility] Physician) Name Value Range Interpretation Description Data Sup porting Code Source(s) Document(s ) VITAMIN B12 1353 Above high normal [facility] (Am teetee pg/mL [facility] Physician) ID Date Data Source [id number] 03/27/2018 12:00:00 AM EST [facility] (Ammir [facility] Physician) Name Value Range Interpretation Description Data Sup porting Code Source(s) Document(s ) Ferritin 52.2 Normal (applies to [facility] (Amm ir [Interpretat ng/mL non-numeric Charles ion] in results) Physician) Blood ID Date Data Source [id number] 03/27/2018 12:00:00 AM EST [facility] (Ammir [facility] Physician) Name Value Range Interpretation Description Data Sup porting Code Source(s) Document(s ) T4 FREE, 1.09 Normal (applies to [facility] THYROXINE ng/dL non-numeric (Ammir results) [facility] Physician) TSH,3RD 3.30 Normal (applies to [facility] GENERATION uIU/mL non-numeric (Ammir results) [facility] Physician) ID Date Data Source [id number] 03/27/2018 12:00:00 AM EST [facility] (Ammir [facility] Physician) Name Value Range Interpretation Description Data Sup porting Code Source(s) Document(s ) Hemoglobin A1c 5.8 % Above high normal [facility] (Ammir in Blood [facility] Physician) ID Date Data Source [id number] 03/27/2018 12:00:00 AM EST [facility] (Ammir [facility] Physician) Name Value Range Interpretation Description Data Sup porting Code Source(s) Document(s ) GLUCOSE 87 mg/dL Normal (applies [facility] NONFASTING,SERUM to non-numeric (Ammir results) [facility] Physician) SODIUM, SERUM 138 Normal (applies [facility] mEq/L to non-numeric (Ammir results) [facility] Physician) POTASSIUM, SERUM 4.1 Normal (applies [facility] mEq/L to non-numeric (Ammir results) [facility] Physician) CHLORIDE, SERUM 107 Normal (applies [facility] mEq/L to non-numeric (Ammir results) [facility] Physician) Carbon dioxide 22 mEq/L Normal (applies [facility] [VFr/PPres] in to non-numeric (Ammir Gas delivery results) [facility] system Physician) Anion gap in 13.1 Normal (applies [facility] Body fluid mEq/L to non-numeric (Ammir results) [facility] Physician) BLOOD UREA 13 mg/dL Normal (applies [facility] NITROGEN to non-numeric (Ammir results) [facility] Physician) CREATININE, 0.80 Normal (applies [facility] SERUM mg/dL to non-numeric (Ammir results) [facility] Physician) CALCIUM, SERUM 9.0 Normal (applies [facility] mg/dL to non-numeric (Ammir results) [facility] Physician) TOTAL PROTEIN 7.9 g/dL Normal (applies [facility] to non-numeric (Ammir results) [facility] Physician) Microalbumin 4.2 g/dL Normal (applies [facility] [Mass/time] in to non-numeric (Ammir Urine collected results) Charles for unspecified Physician) duration Globulin 3.7 gldl Normal (applies [facility] [Mass/time] in to non-numeric (Ammir 24 hour Urine results) [facility] Physician) A/G RATIO 1.14 Normal (applies [facility] g/dl to non-numeric (Ammir results) [facility] Physician) BILIRUBIN, TOTAL 0.2 Below low normal [facility] mg/dL (Ammir [facility] Physician) ALKALINE 78 U/L Normal (applies [facility] PHOSPHATASE, ALP to non-numeric (Ammir results) [facility] Physician) ALT (SGPT) 20 U/L Normal (applies [facility] to non-numeric (Ammir results) [facility] Physician) AST 26 U/L Normal (applies [facility] to non-numeric (Ammir results) [facility] Physician) EGFR NON AFR 81 Above high normal [facility] SUDANESE mL/min/1 (Ammir .73m2 [facility] Physician) EGFR AFR 98 Above high normal [facility] SUDANESE mL/min/1 (Ammir .73m2 [facility] Physician) ID Date Data Source [id number] 03/27/2018 12:00:00 AM EST [facility] (Ammir [facility] Physician) Name Value Range Interpretation Description Data Sup porting Code Source(s) Document(s ) Cholesterol 158 Normal (applies [facility] [Moles/volume] mg/dL to non-numeric (Ammir in Pericardial results) Charles fluid Physician) LDL CALCULATION 84.4 Normal (applies [facility] mg/dL to non-numeric (Ammir results) [facility] Physician) CHOL/HDL RATIO 2.87 Normal (applies [facility] ratio to non-numeric (Ammir results) [facility] Physician) HDL CHOLESTEROL 55 mg/dL Above high normal [facility] (Ammir [facility] Physician) VLDL CALCULATION 18.6 Normal (applies [facility] mg/dl to non-numeric (Ammir results) [facility] Physician) TRIGLYCERIDES 93 mg/dL Normal (applies [facility] to non-numeric (Ammir results) [facility] Physician) ID Date Data Source [id number] 03/27/2018 12:00:00 AM EST [facility] (Ammir [facility] Physician) Name Value Range Interpretation Description Data Sup porting Code Source(s) Document(s ) VITAMIN D 15.16 Below low normal [facility] (Ammir 25-HYDROXY ng/mL [facility] Physician) ID Date Data Source [id number] 03/27/2018 12:00:00 AM EST [facility] (Ammir [facility] Physician) Name Value Range Interpretation Description Data Sup porting Code Source(s) Document(s ) FOLATE 20.7 ng/mL Above high normal [facility] (Amm ir SERUM Charles Physician) ID Date Data Source [id number] 03/27/2018 12:00:00 AM EST [facility] (Ammir [facility] Physician) Name Value Range Interpretation Description Data Sup porting Code Source(s) Document(s ) VITAMIN B12 1353 Above high normal [facility] (Am teetee pg/mL Charles Physician) ID Date Data Source [id number] 03/27/2018 12:00:00 AM EST [facility] (Ammir [facility] Physician) Name Value Range Interpretation Description Data Sup porting Code Source(s) Document(s ) IRON, TOTAL 34 ug/dL Below low normal [facility] (Ammir [facility] Physician) Transferrin 240 mg/dL Normal (applies [facility] [Mass/time] in to non-numeric (Ammir 24 hour Urine results) Charles Physician) TIBC 336.5 Normal (applies [facility] ug/dL to non-numeric (Ammir results) Charles Physician) UIBC 302.5 Normal (applies [facility] ug/dL to non-numeric (Ammir results) [facility] Physician) %SATURATION 10.1 % Below low normal [facility] (Ammir Charles Physician) ID Date Data Source [id number] 03/27/2018 12:00:00 AM EST [facility] (Ammir [facility] Physician) Name Value Range Interpretation Description Data Sup porting Code Source(s) Document(s ) WBC 4.8 Normal (applies [facility] 10(3)/uL to non-numeric (Ammir results) [facility] Physician) RBC 4.6 Normal (applies [facility] 10(6)/uL to non-numeric (Ammir results) [facility] Physician) Hemoglobin 12.7 g/dL Normal (applies [facility] [Mass/volume] to non-numeric (Ammir in Mixed venous results) Charles blood by Physician) Oximetry Hematocrit 38.0 % Normal (applies [facility] [Pure volume to non-numeric (Ammir fraction] of results) [facility] Blood by Physician) Automated count MCV 82.6 fL Normal (applies [facility] to non-numeric (Ammir results) Charles Physician) MCH 28 pg Normal (applies [facility] to non-numeric (Ammir results) Charles Physician) MCHC 33 g/dL Normal (applies [facility] to non-numeric (Ammir results) Charles Physician) RDWSD 38.9 fL Normal (applies [facility] to non-numeric (Ammir results) Charles Physician) RDWCV 13.0 % Normal (applies [facility] to non-numeric (Ammir results) [facility] Physician) Platelet Count 247 Normal (applies [facility] 10(3)/uL to non-numeric (Ammir results) Charles Physician) MPV 10.7 fL Normal (applies [facility] to non-numeric (Ammir results) [facility] Physician) Neutrophil Abs 1.77 Normal (applies [facility] 10(3)/uL to non-numeric (Ammir results) Charles Physician) Lymphocyte Abs 2.69 Normal (applies [facility] 10(3)/uL to non-numeric (Ammir results) [facility] Physician) Monocyte Abs 0.29 Normal (applies [facility] 10(3)/uL to non-numeric (Ammir results) [facility] Physician) Eosinophil Abs 0.04 Normal (applies [facility] 10(3)/uL to non-numeric (Ammir results) Charles Physician) Immature 0.01 Normal (applies [facility] Granulocyte Abs 10(3)/uL to non-numeric (Ammir results) Charles Physician) Neutrophil % 36.70 % Below low normal [facility] (Ammir Charles Physician) Lymphocyte % 56 % Above high normal [facility] (Ammir Charles Physician) Monocyte % 6.0 % Normal (applies [facility] to non-numeric (Ammir results) Charles Physician) Eosinophil % 0.8 % Normal (applies [facility] to non-numeric (Ammir results) Charles Physician) Basophil % 0.6 % Normal (applies [facility] to non-numeric (Ammir results) Charles Physician) Immature 0.20 % Normal (applies [facility] Granulocyte % to non-numeric (Ammir results) Charles Physician) ID Date Data Source [id number] 03/27/2018 12:00:00 AM EST [facility] (Ammir Charles Physician) Name Value Range Interpretation Description Data Sup porting Code Source(s) Document(s ) Ferritin 52.2 Normal (applies to [facility] (Amm ir [Interpretat ng/mL non-numeric Charles ion] in results) Physician) Blood ID Date Data Source [id number] 03/27/2018 12:00:00 AM EST [facility] (Ammir Charles Physician) Name Value Range Interpretation Description Data Sup porting Code Source(s) Document(s ) T4 FREE, 1.09 Normal (applies to [facility] THYROXINE ng/dL non-numeric (Ammir results) Charles Physician) TSH,3RD 3.30 Normal (applies to [facility] GENERATION uIU/mL non-numeric (Ammir results) Charles Physician) ID Date Data Source [id number] 03/27/2018 12:00:00 AM EST [facility] (Ammir Charles Physician) Name Value Range Interpretation Description Data Sup porting Code Source(s) Document(s ) Hemoglobin A1c 5.8 % Above high normal [facility] (Ammir in Blood [facility] Physician) ID Date Data Source [id number] 03/27/2018 12:00:00 AM EST [facility] (Ammir Charles Physician) Name Value Range Interpretation Description Data Sup porting Code Source(s) Document(s ) GLUCOSE 87 mg/dL Normal (applies [facility] NONFASTING,SERUM to non-numeric (Ammir results) Charles Physician) SODIUM, SERUM 138 Normal (applies [facility] mEq/L to non-numeric (Ammir results) Charles Physician) POTASSIUM, SERUM 4.1 Normal (applies [facility] mEq/L to non-numeric (Ammir results) Charles Physician) CHLORIDE, SERUM 107 Normal (applies [facility] mEq/L to non-numeric (Ammir results) Charles Physician) Carbon dioxide 22 mEq/L Normal (applies [facility] [VFr/PPres] in to non-numeric (Ammir Gas delivery results) Charles system Physician) Anion gap in 13.1 Normal (applies [facility] Body fluid mEq/L to non-numeric (Ammir results) Charles Physician) BLOOD UREA 13 mg/dL Normal (applies [facility] NITROGEN to non-numeric (Ammir results) Charles Physician) CREATININE, 0.80 Normal (applies [facility] SERUM mg/dL to non-numeric (Ammir results) Charles Physician) CALCIUM, SERUM 9.0 Normal (applies [facility] mg/dL to non-numeric (Ammir results) Charles Physician) TOTAL PROTEIN 7.9 g/dL Normal (applies [facility] to non-numeric (Ammir results) Charles Physician) Microalbumin 4.2 g/dL Normal (applies [facility] [Mass/time] in to non-numeric (Ammir Urine collected results) Charles for unspecified Physician) duration Globulin 3.7 gldl Normal (applies [facility] [Mass/time] in to non-numeric (Ammir 24 hour Urine results) Charles Physician) A/G RATIO 1.14 Normal (applies [facility] g/dl to non-numeric (Ammir results) Charles Physician) BILIRUBIN, TOTAL 0.2 Below low normal [facility] mg/dL (Ammir Charles Physician) ALKALINE 78 U/L Normal (applies [facility] PHOSPHATASE, ALP to non-numeric (Ammir results) Charles Physician) ALT (SGPT) 20 U/L Normal (applies [facility] to non-numeric (Ammir results) Charles Physician) AST 26 U/L Normal (applies [facility] to non-numeric (Ammir results) Charles Physician) EGFR NON AFR 81 Above high normal [facility] SUDANESE mL/min/1 (Ammir .73m2 Charles Physician) EGFR AFR 98 Above high normal [facility] SUDANESE mL/min/1 (Ammir .73m2 Charles Physician) ID Date Data Source [id number] 03/27/2018 12:00:00 AM EST [facility] (Ammir Charles Physician) Name Value Range Interpretation Description Data Sup porting Code Source(s) Document(s ) Cholesterol 158 Normal (applies [facility] [Moles/volume] mg/dL to non-numeric (Ammir in Pericardial results) Charles fluid Physician) LDL CALCULATION 84.4 Normal (applies [facility] mg/dL to non-numeric (Ammir results) Charles Physician) CHOL/HDL RATIO 2.87 Normal (applies [facility] ratio to non-numeric (Ammir results) Charles Physician) HDL CHOLESTEROL 55 mg/dL Above high normal [facility] (Ammir Charles Physician) VLDL CALCULATION 18.6 Normal (applies [facility] mg/dl to non-numeric (Ammir results) Charles Physician) TRIGLYCERIDES 93 mg/dL Normal (applies [facility] to non-numeric (Ammir results) Charles Physician) ID Date Data Source [id number] 03/27/2018 12:00:00 AM EST [facility] (Ammir Charles Physician) Name Value Range Interpretation Description Data Sup porting Code Source(s) Document(s ) IRON, TOTAL 34 ug/dL Below low normal [facility] (Ammir Charles Physician) Transferrin 240 mg/dL Normal (applies [facility] [Mass/time] in to non-numeric (Ammir 24 hour Urine results) Charles Physician) TIBC 336.5 Normal (applies [facility] ug/dL to non-numeric (Ammir results) Charles Physician) UIBC 302.5 Normal (applies [facility] ug/dL to non-numeric (Ammir results) Charles Physician) %SATURATION 10.1 % Below low normal [facility] (Ammir Charles Physician) ID Date Data Source [id number] 03/27/2018 12:00:00 AM EST [facility] (Ammir Charles Physician) Name Value Range Interpretation Description Data Sup porting Code Source(s) Document(s ) WBC 4.8 Normal (applies [facility] 10(3)/uL to non-numeric (Ammir results) Charles Physician) RBC 4.6 Normal (applies [facility] 10(6)/uL to non-numeric (Ammir results) Charles Physician) Hemoglobin 12.7 g/dL Normal (applies [facility] [Mass/volume] to non-numeric (Ammir in Mixed venous results) Charles blood by Physician) Oximetry Hematocrit 38.0 % Normal (applies [facility] [Pure volume to non-numeric (Ammir fraction] of results) Charles Blood by Physician) Automated count MCV 82.6 fL Normal (applies [facility] to non-numeric (Ammir results) Charles Physician) MCH 28 pg Normal (applies [facility] to non-numeric (Ammir results) Charles Physician) MCHC 33 g/dL Normal (applies [facility] to non-numeric (Ammir results) Charles Physician) RDWSD 38.9 fL Normal (applies [facility] to non-numeric (Ammir results) Charles Physician) RDWCV 13.0 % Normal (applies [facility] to non-numeric (Ammir results) Charles Physician) Platelet Count 247 Normal (applies [facility] 10(3)/uL to non-numeric (Ammir results) Charles Physician) MPV 10.7 fL Normal (applies [facility] to non-numeric (Ammir results) [facility] Physician) Neutrophil Abs 1.77 Normal (applies [facility] 10(3)/uL to non-numeric (Ammir results) [facility] Physician) Lymphocyte Abs 2.69 Normal (applies [facility] 10(3)/uL to non-numeric (Ammir results) [facility] Physician) Monocyte Abs 0.29 Normal (applies [facility] 10(3)/uL to non-numeric (Ammir results) [facility] Physician) Eosinophil Abs 0.04 Normal (applies [facility] 10(3)/uL to non-numeric (Ammir results) [facility] Physician) Immature 0.01 Normal (applies [facility] Granulocyte Abs 10(3)/uL to non-numeric (Ammir results) Charles Physician) Neutrophil % 36.70 % Below low normal [facility] (Ammir Charles Physician) Lymphocyte % 56 % Above high normal [facility] (Ammir Charles Physician) Monocyte % 6.0 % Normal (applies [facility] to non-numeric (Ammir results) Charles Physician) Eosinophil % 0.8 % Normal (applies [facility] to non-numeric (Ammir results) Charles Physician) Basophil % 0.6 % Normal (applies [facility] to non-numeric (Ammir results) [facility] Physician) Immature 0.20 % Normal (applies [facility] Granulocyte % to non-numeric (Ammir results) Charles Physician) ID Date Data Source [id number] 03/27/2018 12:00:00 AM EST [facility] (Ammir Charles Physician) Name Value Range Interpretation Description Data Sup porting Code Source(s) Document(s ) Ferritin 52.2 Normal (applies to [facility] (Amm ir [Interpretat ng/mL non-numeric Charles ion] in results) Physician) Blood ID Date Data Source [id number] 03/27/2018 12:00:00 AM EST [facility] (Ammir Charles Physician) Name Value Range Interpretation Description Data Sup porting Code Source(s) Document(s ) T4 FREE, 1.09 Normal (applies to [facility] THYROXINE ng/dL non-numeric (Ammir results) Charles Physician) TSH,3RD 3.30 Normal (applies to [facility] GENERATION uIU/mL non-numeric (Ammir results) Charles Physician) ID Date Data Source [id number] 03/27/2018 12:00:00 AM EST [facility] (Ammir Charles Physician) Name Value Range Interpretation Description Data Sup porting Code Source(s) Document(s ) Hemoglobin A1c 5.8 % Above high normal [facility] (Ammir in Blood Charles Physician) ID Date Data Source [id number] 03/27/2018 12:00:00 AM EST [facility] (Ammir Charles Physician) Name Value Range Interpretation Description Data Sup porting Code Source(s) Document(s ) GLUCOSE 87 mg/dL Normal (applies [facility] NONFASTING,SERUM to non-numeric (Ammir results) Charles Physician) SODIUM, SERUM 138 Normal (applies [facility] mEq/L to non-numeric (Ammir results) Charles Physician) POTASSIUM, SERUM 4.1 Normal (applies [facility] mEq/L to non-numeric (Ammir results) Charles Physician) CHLORIDE, SERUM 107 Normal (applies [facility] mEq/L to non-numeric (Ammir results) Charles Physician) Carbon dioxide 22 mEq/L Normal (applies [facility] [VFr/PPres] in to non-numeric (Ammir Gas delivery results) Charles system Physician) Anion gap in 13.1 Normal (applies [facility] Body fluid mEq/L to non-numeric (Ammir results) Charles Physician) BLOOD UREA 13 mg/dL Normal (applies [facility] NITROGEN to non-numeric (Ammir results) Charles Physician) CREATININE, 0.80 Normal (applies [facility] SERUM mg/dL to non-numeric (Ammir results) Charles Physician) CALCIUM, SERUM 9.0 Normal (applies [facility] mg/dL to non-numeric (Ammir results) Charles Physician) TOTAL PROTEIN 7.9 g/dL Normal (applies [facility] to non-numeric (Ammir results) Charles Physician) Microalbumin 4.2 g/dL Normal (applies [facility] [Mass/time] in to non-numeric (Ammir Urine collected results) Charles for unspecified Physician) duration Globulin 3.7 gldl Normal (applies [facility] [Mass/time] in to non-numeric (Ammir 24 hour Urine results) Charles Physician) A/G RATIO 1.14 Normal (applies [facility] g/dl to non-numeric (Ammir results) Charles Physician) BILIRUBIN, TOTAL 0.2 Below low normal [facility] mg/dL (Ammir Charles Physician) ALKALINE 78 U/L Normal (applies [facility] PHOSPHATASE, ALP to non-numeric (Ammir results) Charles Physician) ALT (SGPT) 20 U/L Normal (applies [facility] to non-numeric (Ammir results) Charles Physician) AST 26 U/L Normal (applies [facility] to non-numeric (Ammir results) Charles Physician) EGFR NON AFR 81 Above high normal [facility] SUDANESE mL/min/1 (Ammir .73m2 Charles Physician) EGFR AFR 98 Above high normal [facility] SUDANESE mL/min/1 (Ammir .73m2 Charles Physician) ID Date Data Source [id number] 03/27/2018 12:00:00 AM EST [facility] (Ammir Charles Physician) Name Value Range Interpretation Description Data Sup porting Code Source(s) Document(s ) Cholesterol 158 Normal (applies [facility] [Moles/volume] mg/dL to non-numeric (Ammir in Pericardial results) Charles fluid Physician) LDL CALCULATION 84.4 Normal (applies [facility] mg/dL to non-numeric (Ammir results) Charles Physician) CHOL/HDL RATIO 2.87 Normal (applies [facility] ratio to non-numeric (Ammir results) Charles Physician) HDL CHOLESTEROL 55 mg/dL Above high normal [facility] (Ammir Charles Physician) VLDL CALCULATION 18.6 Normal (applies [facility] mg/dl to non-numeric (Ammir results) Charles Physician) TRIGLYCERIDES 93 mg/dL Normal (applies [facility] to non-numeric (Ammir results) Charles Physician) ID Date Data Source [id number] 03/27/2018 12:00:00 AM EST [facility] (Ammir Charles Physician) Name Value Range Interpretation Description Data Sup porting Code Source(s) Document(s ) VITAMIN D 15.16 Below low normal [facility] (Ammir 25-HYDROXY ng/mL [facility] Physician) ID Date Data Source [id number] 03/27/2018 12:00:00 AM EST [facility] (Ammir Charles Physician) Name Value Range Interpretation Description Data Sup porting Code Source(s) Document(s ) FOLATE 20.7 ng/mL Above high normal [facility] (Amm ir SERUM Charles Physician) ID Date Data Source [id number] 03/27/2018 12:00:00 AM EST [facility] (Ammir Charles Physician) Name Value Range Interpretation Description Data Sup porting Code Source(s) Document(s ) VITAMIN B12 1353 Above high normal [facility] (Am teet[place] pg/mL Charles Physician) ID Date Data Source [id number] 03/27/2018 12:00:00 AM EST [facility] (Ammir Charles Physician) Name Value Range Interpretation Description Data Sup porting Code Source(s) Document(s ) IRON, TOTAL 34 ug/dL Below low normal [facility] (Ammir [facility] Physician) Transferrin 240 mg/dL Normal (applies [facility] [Mass/time] in to non-numeric (Ammir 24 hour Urine results) Charles Physician) TIBC 336.5 Normal (applies [facility] ug/dL to non-numeric (Ammir results) Charles Physician) UIBC 302.5 Normal (applies [facility] ug/dL to non-numeric (Ammir results) Charles Physician) %SATURATION 10.1 % Below low normal [facility] (Ammir Charles Physician) ID Date Data Source [id number] 03/27/2018 12:00:00 AM EST [facility] (Ammir Charles Physician) Name Value Range Interpretation Description Data Sup porting Code Source(s) Document(s ) WBC 4.8 Normal (applies [facility] 10(3)/uL to non-numeric (Ammir results) [facility] Physician) RBC 4.6 Normal (applies [facility] 10(6)/uL to non-numeric (Ammir results) Charles Physician) Hemoglobin 12.7 g/dL Normal (applies [facility] [Mass/volume] to non-numeric (Ammir in Mixed venous results) Charles blood by Physician) Oximetry Hematocrit 38.0 % Normal (applies [facility] [Pure volume to non-numeric (Ammir fraction] of results) Charles Blood by Physician) Automated count MCV 82.6 fL Normal (applies [facility] to non-numeric (Ammir results) Charles Physician) MCH 28 pg Normal (applies [facility] to non-numeric (Ammir results) Charles Physician) MCHC 33 g/dL Normal (applies [facility] to non-numeric (Ammir results) Charles Physician) RDWSD 38.9 fL Normal (applies [facility] to non-numeric (Ammir results) Charles Physician) RDWCV 13.0 % Normal (applies [facility] to non-numeric (Ammir results) Charles Physician) Platelet Count 247 Normal (applies [facility] 10(3)/uL to non-numeric (Ammir results) Charles Physician) MPV 10.7 fL Normal (applies [facility] to non-numeric (Ammir results) Charles Physician) Neutrophil Abs 1.77 Normal (applies [facility] 10(3)/uL to non-numeric (Ammir results) Charles Physician) Lymphocyte Abs 2.69 Normal (applies [facility] 10(3)/uL to non-numeric (Ammir results) [facility] Physician) Monocyte Abs 0.29 Normal (applies [facility] 10(3)/uL to non-numeric (Ammir results) [facility] Physician) Eosinophil Abs 0.04 Normal (applies [facility] 10(3)/uL to non-numeric (Ammir results) Charles Physician) Immature 0.01 Normal (applies [facility] Granulocyte Abs 10(3)/uL to non-numeric (Ammir results) Charles Physician) Neutrophil % 36.70 % Below low normal [facility] (Ammir Charles Physician) Lymphocyte % 56 % Above high normal [facility] (Ammir Charles Physician) Monocyte % 6.0 % Normal (applies [facility] to non-numeric (Ammir results) [facility] Physician) Eosinophil % 0.8 % Normal (applies [facility] to non-numeric (Ammir results) Charles Physician) Basophil % 0.6 % Normal (applies [facility] to non-numeric (Ammir results) Charles Physician) Immature 0.20 % Normal (applies [facility] Granulocyte % to non-numeric (Ammir results) Charles Physician) ID Date Data Source [id number] 03/27/2018 12:00:00 AM EST [facility] (Ammir Charles Physician) Name Value Range Interpretation Description Data Sup porting Code Source(s) Document(s ) IRON, TOTAL 34 ug/dL Below low normal [facility] (Ammir Charles Physician) Transferrin 240 mg/dL Normal (applies [facility] [Mass/time] in to non-numeric (Ammir 24 hour Urine results) Charles Physician) TIBC 336.5 Normal (applies [facility] ug/dL to non-numeric (Ammir results) Charles Physician) UIBC 302.5 Normal (applies [facility] ug/dL to non-numeric (Ammir results) Charles Physician) %SATURATION 10.1 % Below low normal [facility] (Ammir Charles Physician) ID Date Data Source [id number] 03/27/2018 12:00:00 AM EST [facility] (Ammir Charles Physician) Name Value Range Interpretation Description Data Sup porting Code Source(s) Document(s ) WBC 4.8 Normal (applies [facility] 10(3)/uL to non-numeric (Ammir results) [facility] Physician) RBC 4.6 Normal (applies [facility] 10(6)/uL to non-numeric (Ammir results) Charles Physician) Hemoglobin 12.7 g/dL Normal (applies [facility] [Mass/volume] to non-numeric (Ammir in Mixed venous results) Charles blood by Physician) Oximetry Hematocrit 38.0 % Normal (applies [facility] [Pure volume to non-numeric (Ammir fraction] of results) [facility] Blood by Physician) Automated count MCV 82.6 fL Normal (applies [facility] to non-numeric (Ammir results) Charles Physician) MCH 28 pg Normal (applies [facility] to non-numeric (Ammir results) Charles Physician) MCHC 33 g/dL Normal (applies [facility] to non-numeric (Ammir results) Charles Physician) RDWSD 38.9 fL Normal (applies [facility] to non-numeric (Ammir results) Charles Physician) RDWCV 13.0 % Normal (applies [facility] to non-numeric (Ammir results) Charles Physician) Platelet Count 247 Normal (applies [facility] 10(3)/uL to non-numeric (Ammir results) Charles Physician) MPV 10.7 fL Normal (applies [facility] to non-numeric (Ammir results) Charles Physician) Neutrophil Abs 1.77 Normal (applies [facility] 10(3)/uL to non-numeric (Ammir results) Charles Physician) Lymphocyte Abs 2.69 Normal (applies [facility] 10(3)/uL to non-numeric (Ammir results) [facility] Physician) Monocyte Abs 0.29 Normal (applies [facility] 10(3)/uL to non-numeric (Ammir results) [facility] Physician) Eosinophil Abs 0.04 Normal (applies [facility] 10(3)/uL to non-numeric (Ammir results) [facility] Physician) Immature 0.01 Normal (applies [facility] Granulocyte Abs 10(3)/uL to non-numeric (Ammir results) Charles Physician) Neutrophil % 36.70 % Below low normal [facility] (Ammir Charles Physician) Lymphocyte % 56 % Above high normal [facility] (Ammir Charles Physician) Monocyte % 6.0 % Normal (applies [facility] to non-numeric (Ammir results) Charles Physician) Eosinophil % 0.8 % Normal (applies [facility] to non-numeric (Ammir results) Charles Physician) Basophil % 0.6 % Normal (applies [facility] to non-numeric (Ammir results) Charles Physician) Immature 0.20 % Normal (applies [facility] Granulocyte % to non-numeric (Ammir results) Charles Physician) ID Date Data Source [id number] 03/27/2018 12:00:00 AM EST [facility] (Ammir Charles Physician) Name Value Range Interpretation Description Data Sup porting Code Source(s) Document(s ) Ferritin 52.2 Normal (applies to [facility] (Amm ir [Interpretat ng/mL non-numeric Charles ion] in results) Physician) Blood ID Date Data Source [id number] 03/27/2018 12:00:00 AM EST [facility] (Ammir [facility] Physician) Name Value Range Interpretation Description Data Sup porting Code Source(s) Document(s ) T4 FREE, 1.09 Normal (applies to [facility] THYROXINE ng/dL non-numeric (Ammir results) [facility] Physician) TSH,3RD 3.30 Normal (applies to [facility] GENERATION uIU/mL non-numeric (Ammir results) Charles Physician) ID Date Data Source [id number] 03/27/2018 12:00:00 AM EST [facility] (Ammir Charles Physician) Name Value Range Interpretation Description Data Sup porting Code Source(s) Document(s ) Hemoglobin A1c 5.8 % Above high normal [facility] (Ammir in Blood [facility] Physician) ID Date Data Source [id number] 03/27/2018 12:00:00 AM EST [facility] (Ammir [facility] Physician) Name Value Range Interpretation Description Data Sup porting Code Source(s) Document(s ) GLUCOSE 87 mg/dL Normal (applies [facility] NONFASTING,SERUM to non-numeric (Ammir results) Charles Physician) SODIUM, SERUM 138 Normal (applies [facility] mEq/L to non-numeric (Ammir results) Charles Physician) POTASSIUM, SERUM 4.1 Normal (applies [facility] mEq/L to non-numeric (Ammir results) Charles Physician) CHLORIDE, SERUM 107 Normal (applies [facility] mEq/L to non-numeric (Ammir results) [facility] Physician) Carbon dioxide 22 mEq/L Normal (applies [facility] [VFr/PPres] in to non-numeric (Ammir Gas delivery results) Charles system Physician) Anion gap in 13.1 Normal (applies [facility] Body fluid mEq/L to non-numeric (Ammir results) Charles Physician) BLOOD UREA 13 mg/dL Normal (applies [facility] NITROGEN to non-numeric (Ammir results) Charles Physician) CREATININE, 0.80 Normal (applies [facility] SERUM mg/dL to non-numeric (Ammir results) Charles Physician) CALCIUM, SERUM 9.0 Normal (applies [facility] mg/dL to non-numeric (Ammir results) Charles Physician) TOTAL PROTEIN 7.9 g/dL Normal (applies [facility] to non-numeric (Ammir results) Charles Physician) Microalbumin 4.2 g/dL Normal (applies [facility] [Mass/time] in to non-numeric (Ammir Urine collected results) Charles for unspecified Physician) duration Globulin 3.7 gldl Normal (applies [facility] [Mass/time] in to non-numeric (Ammir 24 hour Urine results) Charles Physician) A/G RATIO 1.14 Normal (applies [facility] g/dl to non-numeric (Ammir results) Charles Physician) BILIRUBIN, TOTAL 0.2 Below low normal [facility] mg/dL (Ammir Charles Physician) ALKALINE 78 U/L Normal (applies [facility] PHOSPHATASE, ALP to non-numeric (Ammir results) Charles Physician) ALT (SGPT) 20 U/L Normal (applies [facility] to non-numeric (Ammir results) Charles Physician) AST 26 U/L Normal (applies [facility] to non-numeric (Ammir results) Charles Physician) EGFR NON AFR 81 Above high normal [facility] SUDANESE mL/min/1 (Ammir .73m2 Charles Physician) EGFR AFR 98 Above high normal [facility] SUDANESE mL/min/1 (Ammir .73m2 Charles Physician) ID Date Data Source [id number] 03/27/2018 12:00:00 AM EST [facility] (Ammir Charles Physician) Name Value Range Interpretation Description Data Sup porting Code Source(s) Document(s ) Cholesterol 158 Normal (applies [facility] [Moles/volume] mg/dL to non-numeric (Ammir in Pericardial results) Charles fluid Physician) LDL CALCULATION 84.4 Normal (applies [facility] mg/dL to non-numeric (Ammir results) Charles Physician) CHOL/HDL RATIO 2.87 Normal (applies [facility] ratio to non-numeric (Ammir results) Charles Physician) HDL CHOLESTEROL 55 mg/dL Above high normal [facility] (Ammir Charles Physician) VLDL CALCULATION 18.6 Normal (applies [facility] mg/dl to non-numeric (Ammir results) Charles Physician) TRIGLYCERIDES 93 mg/dL Normal (applies [facility] to non-numeric (Ammir results) Charles Physician) ID Date Data Source [id number] 03/27/2018 12:00:00 AM EST [facility] (Ammir Charles Physician) Name Value Range Interpretation Description Data Sup porting Code Source(s) Document(s ) VITAMIN D 15.16 Below low normal [facility] (Ammir 25-HYDROXY ng/mL Charles Physician) ID Date Data Source [id number] 03/27/2018 12:00:00 AM EST [facility] (Ammir Charles Physician) Name Value Range Interpretation Description Data Sup porting Code Source(s) Document(s ) FOLATE 20.7 ng/mL Above high normal [facility] (Amm ir SERUM Charles Physician) ID Date Data Source [id number] 03/27/2018 12:00:00 AM EST [facility] (Ammir Charles Physician) Name Value Range Interpretation Description Data Sup porting Code Source(s) Document(s ) VITAMIN B12 1353 Above high normal [facility] (Am [place] pg/mL Charles Physician) ID Date Data Source [id number] 01/25/2018 12:00:00 AM EST [facility] (Ammir Charles Physician) Name Value Range Interpretation Description Data Sup porting Code Source(s) Document(s ) Amphetamines NEGATIVE Normal (applies [facility] [Presence] in to non-numeric (Ammir Stool results) Charles Physician) BENZODIAZEPINE NEGATIVE Normal (applies [facility] to non-numeric (Ammir results) Charles Physician) Barbiturates NEGATIVE Normal (applies [facility] [Mass/volume] in to non-numeric (Ammir Serum or Plasma results) Charles Physician) Methadone NEGATIVE Normal (applies [facility] [Mass/volume] in to non-numeric (Ammir Blood results) Charles Physician) Opiates NEGATIVE Normal (applies [facility] [Presence] in to non-numeric (Ammir Unknown substance results) Charles by Confirmatory Physician) method PCP NEGATIVE Normal (applies [facility] (PHENCYCLIDINE) to non-numeric (Ammir results) Charles Physician) Cocaine NEGATIVE Normal (applies [facility] [Presence] in to non-numeric (Ammir Unknown substance results) Charles by Confirmatory Physician) method Cannabinoids NEGATIVE Normal (applies [facility] [Presence] in to non-numeric (Ammir Unknown substance results) Charles by Confirmatory Physician) method Propoxyphene NEGATIVE Normal (applies [facility] [Presence] in to non-numeric (Ammir Meconium by results) Charles Screen method Physician) Ethanol NEGATIVE Normal (applies [facility] [Mass/volume] in to non-numeric (Ammir Urine collected results) Charles for unspecified Physician) duration CREATININE,URINE 119.4 Above high [facility] mg/dL normal (Ammir Charles Physician) ID Date Data Source [id number] 01/25/2018 12:00:00 AM EST [facility] (Ammir Charles Physician) Name Value Range Interpretation Description Data Sup porting Code Source(s) Document(s ) HEPATITIS BS NONREACTIVE Normal (applies [facility] AG SCREEN to non-numeric (Ammir results) Charles Physician) ID Date Data Source [id number] 01/25/2018 12:00:00 AM EST [facility] (Ammir Charles Physician) Name Value Range Interpretation Description Data Sup porting Code Source(s) Document(s ) HEPATITIS B 100.73 Normal (applies to [facility] (A mmir SURFACE AB (REACTIVE non-numeric Charles ) results) Physician) ID Date Data Source [id number] 01/25/2018 12:00:00 AM EST [facility] (Ammir Charles Physician) Name Value Range Interpretation Description Data Sup porting Code Source(s) Document(s ) MEASLES IGG 50.2 Above high normal [facility] (Am [place] AU/mL Charles Physician) ID Date Data Source [id number] 01/25/2018 12:00:00 AM EST [facility] (Ammir Charles Physician) Name Value Range Interpretation Code Description Data Supporting Source(s) Document(s ) MUMPS IGG 67.8 AU/mL Above high normal [facility] (Amm ir Charles Physician) ID Date Data Source [id number] 01/25/2018 12:00:00 AM EST [facility] (Ammir Charles Physician) Name Value Range Interpretation Description Data Sup porting Code Source(s) Document(s ) RUBELLA IGG 7.3 INDEX Above high normal [facility] (Am teet[place] AB Charles Physician) ID Date Data Source [id number] 01/25/2018 12:00:00 AM EST [facility] (Ammir Charles Physician) Name Value Range Interpretation Code Description Data Supporting Source(s) Document(s ) VARICELLA- 1377 INDEX Above high normal [facility] (Am teetee ZOSTER Charles VIRUS IGG Physician) ID Date Data Source [id number] 01/25/2018 12:00:00 AM EST [facility] (Ammir Charles Physician) Name Value Range Interpretation Description Data Sup porting Code Source(s) Document(s ) MEASLES IGG 50.2 Above high normal [facility] (Am [place] AU/mL Charles Physician) ID Date Data Source [id number] 01/25/2018 12:00:00 AM EST [facility] (Ammir Charles Physician) Name Value Range Interpretation Code Description Data Supporting Source(s) Document(s ) MUMPS IGG 67.8 AU/mL Above high normal [facility] (Amm ir Charles Physician) ID Date Data Source [id number] 01/25/2018 12:00:00 AM EST [facility] (Ammir Charles Physician) Name Value Range Interpretation Description Data Sup porting Code Source(s) Document(s ) RUBELLA IGG 7.3 INDEX Above high normal [facility] (Am teet[place] AB Charles Physician) ID Date Data Source [id number] 01/25/2018 12:00:00 AM EST [facility] (Ammir Charles Physician) Name Value Range Interpretation Code Description Data Supporting Source(s) Document(s ) VARICELLA- 1377 INDEX Above high normal [facility] (Am teetee ZOSTER Charles VIRUS IGG Physician) ID Date Data Source [id number] 01/25/2018 12:00:00 AM EST [facility] (Ammir Charles Physician) Name Value Range Interpretation Description Data Sup porting Code Source(s) Document(s ) Amphetamines NEGATIVE Normal (applies [facility] [Presence] in to non-numeric (Ammir Stool results) Charles Physician) BENZODIAZEPINE NEGATIVE Normal (applies [facility] to non-numeric (Ammir results) Charles Physician) Barbiturates NEGATIVE Normal (applies [facility] [Mass/volume] in to non-numeric (Ammir Serum or Plasma results) Charles Physician) Methadone NEGATIVE Normal (applies [facility] [Mass/volume] in to non-numeric (Ammir Blood results) Charles Physician) Opiates NEGATIVE Normal (applies [facility] [Presence] in to non-numeric (Ammir Unknown substance results) Charles by Confirmatory Physician) method PCP NEGATIVE Normal (applies [facility] (PHENCYCLIDINE) to non-numeric (Ammir results) Charles Physician) Cocaine NEGATIVE Normal (applies [facility] [Presence] in to non-numeric (Ammir Unknown substance results) Charles by Confirmatory Physician) method Cannabinoids NEGATIVE Normal (applies [facility] [Presence] in to non-numeric (Ammir Unknown substance results) Charles by Confirmatory Physician) method Propoxyphene NEGATIVE Normal (applies [facility] [Presence] in to non-numeric (Ammir Meconium by results) Charles Screen method Physician) Ethanol NEGATIVE Normal (applies [facility] [Mass/volume] in to non-numeric (Ammir Urine collected results) Charles for unspecified Physician) duration CREATININE,URINE 119.4 Above high [facility] mg/dL normal (Ammir Charles Physician) ID Date Data Source [id number] 01/25/2018 12:00:00 AM EST [facility] (Ammir Charles Physician) Name Value Range Interpretation Description Data Sup porting Code Source(s) Document(s ) HEPATITIS BS NONREACTIVE Normal (applies [facility] AG SCREEN to non-numeric (Ammir results) Charles Physician) ID Date Data Source [id number] 01/25/2018 12:00:00 AM EST [facility] (Ammir Charles Physician) Name Value Range Interpretation Description Data Sup porting Code Source(s) Document(s ) HEPATITIS B 100.73 Normal (applies to [facility] (A mmir SURFACE AB (REACTIVE non-numeric Charles ) results) Physician) ID Date Data Source [id number] 01/25/2018 12:00:00 AM EST [facility] (Ammir Charles Physician) Name Value Range Interpretation Description Data Sup porting Code Source(s) Document(s ) MEASLES IGG 50.2 Above high normal [facility] (Am [place] AU/mL Charles Physician) ID Date Data Source [id number] 01/25/2018 12:00:00 AM EST [facility] (Ammir Charles Physician) Name Value Range Interpretation Code Description Data Supporting Source(s) Document(s ) MUMPS IGG 67.8 AU/mL Above high normal [facility] (Amm ir Charles Physician) ID Date Data Source [id number] 01/25/2018 12:00:00 AM EST [facility] (Ammir Charles Physician) Name Value Range Interpretation Description Data Sup porting Code Source(s) Document(s ) RUBELLA IGG 7.3 INDEX Above high normal [facility] (Am te[place] AB Charles Physician) ID Date Data Source [id number] 01/25/2018 12:00:00 AM EST [facility] (Ammir Charles Physician) Name Value Range Interpretation Code Description Data Supporting Source(s) Document(s ) VARICELLA- 1377 INDEX Above high normal [facility] (Am teetee ZOSTER Charles VIRUS IGG Physician) ID Date Data Source [id number] 01/25/2018 12:00:00 AM EST [facility] (Ammir Charles Physician) Name Value Range Interpretation Description Data Sup porting Code Source(s) Document(s ) Amphetamines NEGATIVE Normal (applies [facility] [Presence] in to non-numeric (Ammir Stool results) Charles Physician) BENZODIAZEPINE NEGATIVE Normal (applies [facility] to non-numeric (Ammir results) Charles Physician) Barbiturates NEGATIVE Normal (applies [facility] [Mass/volume] in to non-numeric (Ammir Serum or Plasma results) Charles Physician) Methadone NEGATIVE Normal (applies [facility] [Mass/volume] in to non-numeric (Ammir Blood results) Charles Physician) Opiates NEGATIVE Normal (applies [facility] [Presence] in to non-numeric (Ammir Unknown substance results) Charles by Confirmatory Physician) method PCP NEGATIVE Normal (applies [facility] (PHENCYCLIDINE) to non-numeric (Ammir results) Charles Physician) Cocaine NEGATIVE Normal (applies [facility] [Presence] in to non-numeric (Ammir Unknown substance results) Charles by Confirmatory Physician) method Cannabinoids NEGATIVE Normal (applies [facility] [Presence] in to non-numeric (Ammir Unknown substance results) Charles by Confirmatory Physician) method Propoxyphene NEGATIVE Normal (applies [facility] [Presence] in to non-numeric (Ammir Meconium by results) Charles Screen method Physician) Ethanol NEGATIVE Normal (applies [facility] [Mass/volume] in to non-numeric (Ammir Urine collected results) Charles for unspecified Physician) duration CREATININE,URINE 119.4 Above high [facility] mg/dL normal (Ammir Charles Physician) ID Date Data Source [id number] 01/25/2018 12:00:00 AM EST [facility] (Ammir Charles Physician) Name Value Range Interpretation Description Data Sup porting Code Source(s) Document(s ) HEPATITIS BS NONREACTIVE Normal (applies [facility] AG SCREEN to non-numeric (Ammir results) Charles Physician) ID Date Data Source [id number] 01/25/2018 12:00:00 AM EST [facility] (Ammir Charles Physician) Name Value Range Interpretation Description Data Sup porting Code Source(s) Document(s ) HEPATITIS B 100.73 Normal (applies to [facility] (A mmir SURFACE AB (REACTIVE non-numeric Charles ) results) Physician) ID Date Data Source [id number] 01/25/2018 12:00:00 AM EST [facility] (Ammir Charles Physician) Name Value Range Interpretation Description Data Sup porting Code Source(s) Document(s ) MEASLES IGG 50.2 Above high normal [facility] (Am teetee AU/mL Charles Physician) ID Date Data Source [id number] 01/25/2018 12:00:00 AM EST [facility] (Ammir Charles Physician) Name Value Range Interpretation Code Description Data Supporting Source(s) Document(s ) MUMPS IGG 67.8 AU/mL Above high normal [facility] (Amm ir Charles Physician) ID Date Data Source [id number] 01/25/2018 12:00:00 AM EST [facility] (Ammir Charles Physician) Name Value Range Interpretation Description Data Sup porting Code Source(s) Document(s ) RUBELLA IGG 7.3 INDEX Above high normal [facility] (Am teetee AB Charles Physician) ID Date Data Source [id number] 01/25/2018 12:00:00 AM EST [facility] (Ammir Charles Physician) Name Value Range Interpretation Code Description Data Supporting Source(s) Document(s ) VARICELLA- 1377 INDEX Above high normal [facility] (Am teetee ZOSTER Charles VIRUS IGG Physician) ID Date Data Source [id number] 01/25/2018 12:00:00 AM EST [facility] (Ammir Charles Physician) Name Value Range Interpretation Description Data Sup porting Code Source(s) Document(s ) Amphetamines NEGATIVE Normal (applies [facility] [Presence] in to non-numeric (Ammir Stool results) Charles Physician) BENZODIAZEPINE NEGATIVE Normal (applies [facility] to non-numeric (Ammir results) Charles Physician) Barbiturates NEGATIVE Normal (applies [facility] [Mass/volume] in to non-numeric (Ammir Serum or Plasma results) Charles Physician) Methadone NEGATIVE Normal (applies [facility] [Mass/volume] in to non-numeric (Ammir Blood results) Charles Physician) Opiates NEGATIVE Normal (applies [facility] [Presence] in to non-numeric (Ammir Unknown substance results) Charles by Confirmatory Physician) method PCP NEGATIVE Normal (applies [facility] (PHENCYCLIDINE) to non-numeric (Ammir results) Charles Physician) Cocaine NEGATIVE Normal (applies [facility] [Presence] in to non-numeric (Ammir Unknown substance results) Charles by Confirmatory Physician) method Cannabinoids NEGATIVE Normal (applies [facility] [Presence] in to non-numeric (Ammir Unknown substance results) Charles by Confirmatory Physician) method Propoxyphene NEGATIVE Normal (applies [facility] [Presence] in to non-numeric (Ammir Meconium by results) Charles Screen method Physician) Ethanol NEGATIVE Normal (applies [facility] [Mass/volume] in to non-numeric (Ammir Urine collected results) Charles for unspecified Physician) duration CREATININE,URINE 119.4 Above high [facility] mg/dL normal (Ammir Charles Physician) ID Date Data Source [id number] 01/25/2018 12:00:00 AM EST [facility] (Ammir Charles Physician) Name Value Range Interpretation Description Data Sup porting Code Source(s) Document(s ) HEPATITIS BS NONREACTIVE Normal (applies [facility] AG SCREEN to non-numeric (Ammir results) Charles Physician) ID Date Data Source [id number] 01/25/2018 12:00:00 AM EST [facility] (Ammir Charles Physician) Name Value Range Interpretation Description Data Sup porting Code Source(s) Document(s ) HEPATITIS B 100.73 Normal (applies to [facility] (A mmir SURFACE AB (REACTIVE non-numeric Charles ) results) Physician) ID Date Data Source [id number] 01/25/2018 12:00:00 AM EST [facility] (Ammir Charles Physician) Name Value Range Interpretation Description Data Sup porting Code Source(s) Document(s ) MEASLES IGG 50.2 Above high normal [facility] (Am teet[place] AU/mL Charles Physician) ID Date Data Source [id number] 01/25/2018 12:00:00 AM EST [facility] (Ammir Charles Physician) Name Value Range Interpretation Code Description Data Supporting Source(s) Document(s ) MUMPS IGG 67.8 AU/mL Above high normal [facility] (Amm ir Charles Physician) ID Date Data Source [id number] 01/25/2018 12:00:00 AM EST [facility] (Ammir Charles Physician) Name Value Range Interpretation Description Data Sup porting Code Source(s) Document(s ) GLUCOSE 71 mg/dL Normal (applies [facility] NONFASTING,SERUM to non-numeric (Ammir results) Charles Physician) SODIUM, SERUM 137 Normal (applies [facility] mEq/L to non-numeric (Ammir results) Charles Physician) SODIUM, SERUM 137 Normal (applies [facility] mEq/L to non-numeric (Ammir results) Charles Physician) POTASSIUM, SERUM 4.4 Normal (applies [facility] mEq/L to non-numeric (Ammir results) Charles Physician) POTASSIUM, SERUM 4.4 Normal (applies [facility] mEq/L to non-numeric (Ammir results) Charles Physician) CHLORIDE, SERUM 108 Normal (applies [facility] mEq/L to non-numeric (Ammir results) Charles Physician) CHLORIDE, SERUM 108 Normal (applies [facility] mEq/L to non-numeric (Ammir results) Charles Physician) Carbon dioxide 26 mEq/L Normal (applies [facility] [VFr/PPres] in to non-numeric (Ammir Gas delivery results) Charles system Physician) Carbon dioxide 26 mEq/L Normal (applies [facility] [VFr/PPres] in to non-numeric (Ammir Gas delivery results) Charles system Physician) Anion gap in 7.4 Normal (applies [facility] Body fluid mEq/L to non-numeric (Ammir results) Charles Physician) Anion gap in 7.4 Normal (applies [facility] Body fluid mEq/L to non-numeric (Ammir results) Charles Physician) BLOOD UREA 23 mg/dL Normal (applies [facility] NITROGEN to non-numeric (Ammir results) Charles Physician) BLOOD UREA 23 mg/dL Normal (applies [facility] NITROGEN to non-numeric (Ammir results) Charles Physician) CREATININE, 0.70 Normal (applies [facility] SERUM mg/dL to non-numeric (Ammir results) Charles Physician) CREATININE, 0.70 Normal (applies [facility] SERUM mg/dL to non-numeric (Ammir results) Charles Physician) CALCIUM, SERUM 9.2 Normal (applies [facility] mg/dL to non-numeric (Ammir results) Charles Physician) CALCIUM, SERUM 9.2 Normal (applies [facility] mg/dL to non-numeric (Ammir results) Charles Physician) TOTAL PROTEIN 7.0 g/dL Normal (applies [facility] to non-numeric (Ammir results) Charles Physician) TOTAL PROTEIN 7.0 g/dL Normal (applies [facility] to non-numeric (Ammir results) Charles Physician) Microalbumin 3.9 g/dL Normal (applies [facility] [Mass/time] in to non-numeric (Ammir Urine collected results) Charles for unspecified Physician) duration Microalbumin 3.9 g/dL Normal (applies [facility] [Mass/time] in to non-numeric (Ammir Urine collected results) Charles for unspecified Physician) duration Globulin 3.1 gldl Normal (applies [facility] [Mass/time] in to non-numeric (Ammir 24 hour Urine results) Charles Physician) Globulin 3.1 gldl Normal (applies [facility] [Mass/time] in to non-numeric (Ammir 24 hour Urine results) Charles Physician) A/G RATIO 1.26 Normal (applies [facility] g/dl to non-numeric (Ammir results) Charles Physician) A/G RATIO 1.26 Normal (applies [facility] g/dl to non-numeric (Ammir results) Charles Physician) BILIRUBIN, TOTAL 0.2 Below low normal [facility] mg/dL (Ammir Charles Physician) BILIRUBIN, TOTAL 0.2 Below low normal [facility] mg/dL (Ammir Charles Physician) ALKALINE 88 U/L Normal (applies [facility] PHOSPHATASE, ALP to non-numeric (Ammir results) Charles Physician) ALKALINE 88 U/L Normal (applies [facility] PHOSPHATASE, ALP to non-numeric (Ammir results) Charles Physician) ALT (SGPT) 18 U/L Normal (applies [facility] to non-numeric (Ammir results) Charles Physician) ALT (SGPT) 18 U/L Normal (applies [facility] to non-numeric (Ammir results) Charles Physician) AST 23 U/L Normal (applies [facility] to non-numeric (Ammir results) Charles Physician) AST 23 U/L Normal (applies [facility] to non-numeric (Ammir results) Charles Physician) EGFR NON AFR 95 Normal (applies [facility] SUDANESE mL/min/1 to non-numeric (Ammir .73m2 results) Charles Physician) EGFR NON AFR 95 Normal (applies [facility] SUDANESE mL/min/1 to non-numeric (Ammir .73m2 results) Charles Physician) EGFR AFR 114 Normal (applies [facility] SUDANESE mL/min/1 to non-numeric (Ammir .73m2 results) Charles Physician) EGFR AFR 114 Normal (applies [facility] SUDANESE mL/min/1 to non-numeric (Ammir .73m2 results) Charles Physician) RUBELLA IGG AB 7.3 Above high normal [facility] INDEX (Ammir Charles Physician) ID Date Data Source [id number] 01/25/2018 12:00:00 AM EST [facility] (Ammir Charles Physician) Name Value Range Interpretation Code Description Data Supporting Source(s) Document(s ) VARICELLA- 1377 INDEX Above high normal [facility] (Am teetee ZOSTER Charles VIRUS IGG Physician) ID Date Data Source [id number] 10/21/2017 12:00:00 AM EDT [facility] (Ammir Charles Physician) Name Value Range Interpretation Description Data Sup porting Code Source(s) Document(s ) Amphetamines NEGATIVE Normal (applies [facility] [Presence] in to non-numeric (Ammir Stool results) Charles Physician) BENZODIAZEPINE NEGATIVE Normal (applies [facility] to non-numeric (Ammir results) Charles Physician) Barbiturates NEGATIVE Normal (applies [facility] [Mass/volume] in to non-numeric (Ammir Serum or Plasma results) Charles Physician) Methadone NEGATIVE Normal (applies [facility] [Mass/volume] in to non-numeric (Ammir Blood results) Charles Physician) Opiates NEGATIVE Normal (applies [facility] [Presence] in to non-numeric (Ammir Unknown substance results) Charles by Confirmatory Physician) method PCP NEGATIVE Normal (applies [facility] (PHENCYCLIDINE) to non-numeric (Ammir results) Charles Physician) Cocaine NEGATIVE Normal (applies [facility] [Presence] in to non-numeric (Ammir Unknown substance results) Charles by Confirmatory Physician) method Cannabinoids NEGATIVE Normal (applies [facility] [Presence] in to non-numeric (Ammir Unknown substance results) Charles by Confirmatory Physician) method Propoxyphene NEGATIVE Normal (applies [facility] [Presence] in to non-numeric (Ammir Meconium by results) Charles Screen method Physician) Ethanol NEGATIVE Normal (applies [facility] [Mass/volume] in to non-numeric (Ammir Urine collected results) Charles for unspecified Physician) duration CREATININE,URINE 101.7 Above high [facility] mg/dL normal (Ammir Charles Physician) ID Date Data Source [id number] 10/21/2017 12:00:00 AM EDT [facility] (Ammir Charles Physician) Name Value Range Interpretation Description Data Sup porting Code Source(s) Document(s ) Amphetamines NEGATIVE Normal (applies [facility] [Presence] in to non-numeric (Ammir Stool results) Charles Physician) BENZODIAZEPINE NEGATIVE Normal (applies [facility] to non-numeric (Ammir results) Charles Physician) Barbiturates NEGATIVE Normal (applies [facility] [Mass/volume] in to non-numeric (Ammir Serum or Plasma results) Charles Physician) Methadone NEGATIVE Normal (applies [facility] [Mass/volume] in to non-numeric (Ammir Blood results) Charles Physician) Opiates NEGATIVE Normal (applies [facility] [Presence] in to non-numeric (Ammir Unknown substance results) Charles by Confirmatory Physician) method PCP NEGATIVE Normal (applies [facility] (PHENCYCLIDINE) to non-numeric (Ammir results) Charles Physician) Cocaine NEGATIVE Normal (applies [facility] [Presence] in to non-numeric (Ammir Unknown substance results) Charles by Confirmatory Physician) method Cannabinoids NEGATIVE Normal (applies [facility] [Presence] in to non-numeric (Ammir Unknown substance results) Charles by Confirmatory Physician) method Propoxyphene NEGATIVE Normal (applies [facility] [Presence] in to non-numeric (Ammir Meconium by results) Charles Screen method Physician) Ethanol NEGATIVE Normal (applies [facility] [Mass/volume] in to non-numeric (Ammir Urine collected results) Charles for unspecified Physician) duration CREATININE,URINE 101.7 Above high [facility] mg/dL normal (Ammir Charles Physician) ID Date Data Source [id number] 10/21/2017 12:00:00 AM EDT [facility] (Ammir Charles Physician) Name Value Range Interpretation Description Data Sup porting Code Source(s) Document(s ) Amphetamines NEGATIVE Normal (applies [facility] [Presence] in to non-numeric (Ammir Stool results) Charles Physician) BENZODIAZEPINE NEGATIVE Normal (applies [facility] to non-numeric (Ammir results) Charles Physician) Barbiturates NEGATIVE Normal (applies [facility] [Mass/volume] in to non-numeric (Ammir Serum or Plasma results) Charles Physician) Methadone NEGATIVE Normal (applies [facility] [Mass/volume] in to non-numeric (Ammir Blood results) Charles Physician) Opiates NEGATIVE Normal (applies [facility] [Presence] in to non-numeric (Ammir Unknown substance results) Charles by Confirmatory Physician) method PCP NEGATIVE Normal (applies [facility] (PHENCYCLIDINE) to non-numeric (Ammir results) Charles Physician) Cocaine NEGATIVE Normal (applies [facility] [Presence] in to non-numeric (Ammir Unknown substance results) Charles by Confirmatory Physician) method Cannabinoids NEGATIVE Normal (applies [facility] [Presence] in to non-numeric (Ammir Unknown substance results) Charles by Confirmatory Physician) method Propoxyphene NEGATIVE Normal (applies [facility] [Presence] in to non-numeric (Ammir Meconium by results) Charles Screen method Physician) Ethanol NEGATIVE Normal (applies [facility] [Mass/volume] in to non-numeric (Ammir Urine collected results) Charles for unspecified Physician) duration CREATININE,URINE 101.7 Above high [facility] mg/dL normal (Ammir Charles Physician) ID Date Data Source [id number] 10/21/2017 12:00:00 AM EDT [facility] (Ammir Charles Physician) Name Value Range Interpretation Description Data Sup porting Code Source(s) Document(s ) Amphetamines NEGATIVE Normal (applies [facility] [Presence] in to non-numeric (Ammir Stool results) Charles Physician) BENZODIAZEPINE NEGATIVE Normal (applies [facility] to non-numeric (Ammir results) Charles Physician) Barbiturates NEGATIVE Normal (applies [facility] [Mass/volume] in to non-numeric (Ammir Serum or Plasma results) Charles Physician) Methadone NEGATIVE Normal (applies [facility] [Mass/volume] in to non-numeric (Ammir Blood results) Charles Physician) Opiates NEGATIVE Normal (applies [facility] [Presence] in to non-numeric (Ammir Unknown substance results) Charles by Confirmatory Physician) method PCP NEGATIVE Normal (applies [facility] (PHENCYCLIDINE) to non-numeric (Ammir results) Charles Physician) Cocaine NEGATIVE Normal (applies [facility] [Presence] in to non-numeric (Ammir Unknown substance results) Charles by Confirmatory Physician) method Cannabinoids NEGATIVE Normal (applies [facility] [Presence] in to non-numeric (Ammir Unknown substance results) Charles by Confirmatory Physician) method Propoxyphene NEGATIVE Normal (applies [facility] [Presence] in to non-numeric (Ammir Meconium by results) Charles Screen method Physician) Ethanol NEGATIVE Normal (applies [facility] [Mass/volume] in to non-numeric (Ammir Urine collected results) Charles for unspecified Physician) duration CREATININE,URINE 101.7 Above high [facility] mg/dL normal (Ammir Charles Physician) ID Date Data Source [id number] 10/21/2017 12:00:00 AM EDT [facility] (Ammir Cahrles Physician) Name Value Range Interpretation Description Data Sup porting Code Source(s) Document(s ) Amphetamines NEGATIVE Normal (applies [facility] [Presence] in to non-numeric (Ammir Stool results) Charles Physician) BENZODIAZEPINE NEGATIVE Normal (applies [facility] to non-numeric (Ammir results) Charles Physician) Barbiturates NEGATIVE Normal (applies [facility] [Mass/volume] in to non-numeric (Ammir Serum or Plasma results) Charles Physician) Methadone NEGATIVE Normal (applies [facility] [Mass/volume] in to non-numeric (Ammir Blood results) Charles Physician) Opiates NEGATIVE Normal (applies [facility] [Presence] in to non-numeric (Ammir Unknown substance results) Charles by Confirmatory Physician) method PCP NEGATIVE Normal (applies [facility] (PHENCYCLIDINE) to non-numeric (Ammir results) Charles Physician) Cocaine NEGATIVE Normal (applies [facility] [Presence] in to non-numeric (Ammir Unknown substance results) Charles by Confirmatory Physician) method Cannabinoids NEGATIVE Normal (applies [facility] [Presence] in to non-numeric (Ammir Unknown substance results) Charles by Confirmatory Physician) method Propoxyphene NEGATIVE Normal (applies [facility] [Presence] in to non-numeric (Ammir Meconium by results) Charles Screen method Physician) Ethanol NEGATIVE Normal (applies [facility] [Mass/volume] in to non-numeric (Ammir Urine collected results) Charles for unspecified Physician) duration CREATININE,URINE 101.7 Above high [facility] mg/dL normal (Ammir Charles Physician) ID Date Data Source [id number] 07/31/2017 12:00:00 AM EDT [facility] (Ammir Charles Physician) Name Value Range Interpretation Code Description Data Faiza rce(s) Supporting Document(s ) DIHYDROTES 16 Normal (applies to [facility] (Am teetee TOSTERON,L non-numeric results) Charles [facility] Physician) ID Date Data Source [id number] 07/31/2017 12:00:00 AM EDT [facility] (Ammir Charles Physician) Name Value Range Interpretation Code Description Data Faiza rce(s) Supporting Document(s ) ESTROGEN, 138.4 Normal (applies to [facility] (Amm ir TOTAL, non-numeric Charles SERUM results) Physician) ID Date Data Source [id number] 07/31/2017 12:00:00 AM EDT [facility] (Ammir Charles Physician) Name Value Range Interpretation Code Description Data Supporting Source(s) Document(s ) RADHA 0.3 Ratio Normal (applies to [facility] (Amm ir Screen(Sym non-numeric Charles phony) results) Physician) dsDNA 1.3 IU/ml Normal (applies to [facility] (Amm ir non-numeric Charles results) Physician) ID Date Data Source [id number] 07/31/2017 12:00:00 AM EDT [facility] (Ammir Charles Physician) Name Value Range Interpretation Code Description Data Faiza rce(s) Supporting Document(s ) ESR 24 mm/hr Above high normal [facility] (Ammi r Charles Physician) ID Date Data Source [id number] 07/31/2017 12:00:00 AM EDT [facility] (Ammir Charles Physician) Name Value Range Interpretation Description Data Sup porting Code Source(s) Document(s ) RHEUMATOID 5.30 Normal (applies to [facility] FACTOR IGG/IGM IU/mL non-numeric (Ammir results) Charles Physician) ID Date Data Source [id number] 07/31/2017 12:00:00 AM EDT [facility] (Ammir Charles Physician) Name Value Range Interpretation Code Description Data Faiza rce(s) Supporting Document(s ) URIC ACID 4.6 mg/dL Normal (applies to [facility] (Amm ir non-numeric Charles results) Physician) ID Date Data Source [id number] 07/31/2017 12:00:00 AM EDT [facility] (Ammir Charles Physician) Name Value Range Interpretation Code Description Data Faiza rce(s) Supporting Document(s ) SSA/Ro IgG <0.3 Normal (applies to [facility] (Am teetee non-numeric results) Charles Physician) ID Date Data Source [id number] 07/31/2017 12:00:00 AM EDT [facility] (Ammir Charles Physician) Name Value Range Interpretation Code Description Data Faiza rce(s) Supporting Document(s ) SSB/La IgG <0.3 Normal (applies to [facility] (Am teetee non-numeric results) Charles Physician) ID Date Data Source [id number] 07/31/2017 12:00:00 AM EDT [facility] (Ammir Charles Physician) Name Value Range Interpretation Code Description Data Supporting Source(s) Document(s ) Gordon IgG 1.6 Robert Normal (applies to [facility] (Amm ir U/mL non-numeric Charles results) Physician) ION IMPLANT MACHINE OPERATOR IgG 1.9 Robert Normal (applies to [facility] (Amm ir U/mL non-numeric Charles results) Physician) ID Date Data Source [id number] 07/31/2017 12:00:00 AM EDT [facility] (Ammir Charles Physician) Name Value Range Interpretation Description Data Sup porting Code Source(s) Document(s ) Cyclic 0.6 U/ml Normal (applies [facility] Citrullinated to non-numeric (Ammir Peptide IgG results) Charles Physician) ID Date Data Source [id number] 07/31/2017 12:00:00 AM EDT [facility] (Ammir Charles Physician) Name Value Range Interpretation Description Data Sup porting Code Source(s) Document(s ) C-REACTIVE 1.7 mg/dL Above high normal [facility] (Amm ir PROTEIN Charles (INFL) Physician) ID Date Data Source [id number] 07/31/2017 12:00:00 AM EDT [facility] (Ammir Charles Physician) Name Value Range Interpretation Code Description Data Faiza rce(s) Supporting Document(s ) DIHYDROTES 16 Normal (applies to [facility] (Am teetee TOSTERON,L non-numeric results) Charles [facility] Physician) ID Date Data Source [id number] 07/31/2017 12:00:00 AM EDT [facility] (Ammir Charles Physician) Name Value Range Interpretation Code Description Data Faiza rce(s) Supporting Document(s ) ESTROGEN, 138.4 Normal (applies to [facility] (Amm ir TOTAL, non-numeric Charles SERUM results) Physician) ID Date Data Source [id number] 07/31/2017 12:00:00 AM EDT [facility] (Ammir Charles Physician) Name Value Range Interpretation Code Description Data Supporting Source(s) Document(s ) RADHA 0.3 Ratio Normal (applies to [facility] (Amm ir Screen(Sym non-numeric Charles phony) results) Physician) dsDNA 1.3 IU/ml Normal (applies to [facility] (Amm ir non-numeric Charles results) Physician) ID Date Data Source [id number] 07/31/2017 12:00:00 AM EDT [facility] (Ammir Charles Physician) Name Value Range Interpretation Code Description Data Faiza rce(s) Supporting Document(s ) ESR 24 mm/hr Above high normal [facility] (Ammi r Charles Physician) ID Date Data Source [id number] 07/31/2017 12:00:00 AM EDT [facility] Charles Physician[facility] Name Value Range Interpretation Description Data Sup porting Code Source(s) Document(s ) RHEUMATOID 5.30 Normal (applies to [facility] FACTOR IGG/IGM IU/mL non-numeric (Ammir results) Charles Physician) ID Date Data Source [id number] 07/31/2017 12:00:00 AM EDT [facility] Charles Physician[facility] Name Value Range Interpretation Code Description Data Faiza rce(s) Supporting Document(s ) URIC ACID 4.6 mg/dL Normal (applies to [facility] (Amm ir non-numeric Charles results) Physician) ID Date Data Source [id number] 07/31/2017 12:00:00 AM EDT [facility] (Ammir Charles Physician) Name Value Range Interpretation Code Description Data Faiza rce(s) Supporting Document(s ) SSA/Ro IgG <0.3 Normal (applies to [facility] (Am teet[place] non-numeric results) Charles Physician) ID Date Data Source [id number] 07/31/2017 12:00:00 AM EDT [facility] Charles Physician[facility] Name Value Range Interpretation Code Description Data Faiza rce(s) Supporting Document(s ) SSB/La IgG <0.3 Normal (applies to [facility] (Am teet[place] non-numeric results) Charles Physician) ID Date Data Source [id number] 07/31/2017 12:00:00 AM EDT [facility] (Ammir Charles Physician) Name Value Range Interpretation Code Description Data Supporting Source(s) Document(s ) Gordon IgG 1.6 Robert Normal (applies to [facility] (Amm ir U/mL non-numeric Charles results) Physician) ION IMPLANT MACHINE OPERATOR IgG 1.9 Robert Normal (applies to [facility] (Amm ir U/mL non-numeric Charles results) Physician) ID Date Data Source [id number] 07/31/2017 12:00:00 AM EDT [facility] (Ammir Charles Physician) Name Value Range Interpretation Description Data Sup porting Code Source(s) Document(s ) Cyclic 0.6 U/ml Normal (applies [facility] Citrullinated to non-numeric (Ammir Peptide IgG results) Charles Physician) ID Date Data Source [id number] 07/31/2017 12:00:00 AM EDT [facility] (Ammir Charles Physician) Name Value Range Interpretation Description Data Sup porting Code Source(s) Document(s ) C-REACTIVE 1.7 mg/dL Above high normal [facility] (Amm ir PROTEIN Charles (INFL) Physician) ID Date Data Source [id number] 07/31/2017 12:00:00 AM EDT [facility] (Ammir Charles Physician) Name Value Range Interpretation Description Data Sup porting Code Source(s) Document(s ) WBC 6.6 Normal (applies to [facility] 10(3)/uL non-numeric (Ammir results) [facility] Physician) RBC 4.1 Normal (applies to [facility] 10(6)/uL non-numeric (Ammir results) [facility] Physician) Hemoglobin 10.8 g/dL Below low normal [facility] [Mass/volume] (Ammir in Mixed Charles venous blood Physician) by Oximetry Hematocrit 33.9 % Below low normal [facility] [Pure volume (Ammir fraction] of [facility] Blood by Physician) Automated count MCV 81.9 fL Normal (applies to [facility] non-numeric (Ammir results) [facility] Physician) MCH 26 pg Normal (applies to [facility] non-numeric (Ammir results) [facility] Physician) MCHC 32 g/dL Normal (applies to [facility] non-numeric (Ammir results) [facility] Physician) RDWSD 46.8 fL Normal (applies to [facility] non-numeric (Ammir results) [facility] Physician) RDWCV 15.7 % Above high normal [facility] (Ammir [facility] Physician) PLT 304 Normal (applies to [facility] 10(3)/uL non-numeric (Ammir results) [facility] Physician) MPV 10.8 fL Normal (applies to [facility] non-numeric (Ammir results) [facility] Physician) NE# 3.53 Normal (applies to [facility] 10(3)/uL non-numeric (Ammir results) [facility] Physician) LY# 2.46 Normal (applies to [facility] 10(3)/uL non-numeric (Ammir results) [facility] Physician) MO# 0.45 Normal (applies to [facility] 10(3)/uL non-numeric (Ammir results) [facility] Physician) EO# 0.07 Normal (applies to [facility] 10(3)/uL non-numeric (Ammir results) [facility] Physician) IG# 0.01 Normal (applies to [facility] 10(3)/uL non-numeric (Ammir results) [facility] Physician) NE% 53.70 % Normal (applies to [facility] non-numeric (Ammir results) [facility] Physician) LY% 38 % Normal (applies to [facility] non-numeric (Ammir results) Charles Physician) MO% 6.9 % Normal (applies to [facility] non-numeric (Ammir results) [facility] Physician) EO% 1.1 % Normal (applies to [facility] non-numeric (Ammir results) Charles Physician) BA% 0.5 % Normal (applies to [facility] non-numeric (Ammir results) [facility] Physician) IG% 0.20 % Normal (applies to [facility] non-numeric (Ammir results) [facility] Physician) ID Date Data Source [id number] 07/31/2017 12:00:00 AM EDT [facility] (Ammir [facility] Physician) Name Value Range Interpretation Description Data Sup porting Code Source(s) Document(s ) GLUCOSE 75 mg/dL Normal (applies [facility] NONFASTING,SERUM to non-numeric (Ammir results) [facility] Physician) SODIUM, SERUM 140 Normal (applies [facility] mEq/L to non-numeric (Ammir results) [facility] Physician) POTASSIUM, SERUM 4.1 Normal (applies [facility] mEq/L to non-numeric (Ammir results) [facility] Physician) CHLORIDE, SERUM 107 Normal (applies [facility] mEq/L to non-numeric (Ammir results) [facility] Physician) Carbon dioxide 24 mEq/L Normal (applies [facility] [VFr/PPres] in to non-numeric (Ammir Gas delivery results) [facility] system Physician) Anion gap in 13.1 Normal (applies [facility] Body fluid mEq/L to non-numeric (Ammir results) [facility] Physician) BLOOD UREA 13 mg/dL Normal (applies [facility] NITROGEN to non-numeric (Ammir results) [facility] Physician) CREATININE, 0.80 Normal (applies [facility] SERUM mg/dL to non-numeric (Ammir results) [facility] Physician) CALCIUM, SERUM 8.8 Normal (applies [facility] mg/dL to non-numeric (Ammir results) [facility] Physician) TOTAL PROTEIN 6.9 g/dL Normal (applies [facility] to non-numeric (Ammir results) [facility] Physician) Microalbumin 3.7 g/dL Normal (applies [facility] [Mass/time] in to non-numeric (Ammir Urine collected results) Charles for unspecified Physician) duration Globulin 3.2 gldl Normal (applies [facility] [Mass/time] in to non-numeric (Ammir 24 hour Urine results) [facility] Physician) A/G RATIO 1.16 Normal (applies [facility] g/dl to non-numeric (Ammir results) [facility] Physician) BILIRUBIN, TOTAL 0.3 Normal (applies [facility] mg/dL to non-numeric (Ammir results) [facility] Physician) ALKALINE 64 U/L Normal (applies [facility] PHOSPHATASE, ALP to non-numeric (Ammir results) [facility] Physician) ALT (SGPT) 15 U/L Normal (applies [facility] to non-numeric (Ammir results) [facility] Physician) AST 23 U/L Normal (applies [facility] to non-numeric (Ammir results) [facility] Physician) EGFR NON AFR 82 Above high normal [facility] SUDANESE mL/min/1 (Ammir .73m2 Charles Physician) EGFR AFR 99 Above high normal [facility] SUDANESE mL/min/1 (Ammir .73m2 [facility] Physician) ID Date Data Source [id number] 07/31/2017 12:00:00 AM EDT [facility] (Ammir [facility] Physician) Name Value Range Interpretation Code Description Data Faiza rce(s) Supporting Document(s ) LH(LUTEIN 3 mIU/mL Above high normal [facility] (Ammi r IZING Charles HORMONE) Physician) ID Date Data Source [id number] 07/31/2017 12:00:00 AM EDT [facility] (Ammir [facility] Physician) Name Value Range Interpretation Code Description Data Faiza rce(s) Supporting Document(s ) BETA-hCG <2.0 Normal (applies to [facility] (Amm ir non-numeric results) [facility] Physician) ID Date Data Source [id number] 07/31/2017 12:00:00 AM EDT [facility] (Ammir [facility] Physician) Name Value Range Interpretation Description Data Sup porting Code Source(s) Document(s ) Progesterone 0.27 Above high normal [facility] [Mass/volume] in ng/mL (Ammir Saliva (oral Charles fluid) Physician) ID Date Data Source [id number] 07/31/2017 12:00:00 AM EDT [facility] (Ammir [facility] Physician) Name Value Range Interpretation Code Description Data Faiza rce(s) Supporting Document(s ) ESTRADIOL 45 pg/mL Above high normal [facility] (Ammi r -E2 [facility] Physician) ID Date Data Source [id number] 07/31/2017 12:00:00 AM EDT [facility] (Ammir [facility] Physician) Name Value Range Interpretation Description Data Sup porting Code Source(s) Document(s ) WBC 6.6 Normal (applies to [facility] 10(3)/uL non-numeric (Ammir results) [facility] Physician) RBC 4.1 Normal (applies to [facility] 10(6)/uL non-numeric (Ammir results) [facility] Physician) Hemoglobin 10.8 g/dL Below low normal [facility] [Mass/volume] (Ammir in Mixed [facility] venous blood Physician) by Oximetry Hematocrit 33.9 % Below low normal [facility] [Pure volume (Ammir fraction] of [facility] Blood by Physician) Automated count MCV 81.9 fL Normal (applies to [facility] non-numeric (Ammir results) [facility] Physician) MCH 26 pg Normal (applies to [facility] non-numeric (Ammir results) [facility] Physician) MCHC 32 g/dL Normal (applies to [facility] non-numeric (Ammir results) Charles Physician) RDWSD 46.8 fL Normal (applies to [facility] non-numeric (Ammir results) [facility] Physician) RDWCV 15.7 % Above high normal [facility] (Ammir [facility] Physician) PLT 304 Normal (applies to [facility] 10(3)/uL non-numeric (Ammir results) [facility] Physician) MPV 10.8 fL Normal (applies to [facility] non-numeric (Ammir results) [facility] Physician) NE# 3.53 Normal (applies to [facility] 10(3)/uL non-numeric (Ammir results) [facility] Physician) LY# 2.46 Normal (applies to [facility] 10(3)/uL non-numeric (Ammir results) [facility] Physician) MO# 0.45 Normal (applies to [facility] 10(3)/uL non-numeric (Ammir results) [facility] Physician) EO# 0.07 Normal (applies to [facility] 10(3)/uL non-numeric (Ammir results) [facility] Physician) IG# 0.01 Normal (applies to [facility] 10(3)/uL non-numeric (Ammir results) [facility] Physician) NE% 53.70 % Normal (applies to [facility] non-numeric (Ammir results) [facility] Physician) LY% 38 % Normal (applies to [facility] non-numeric (Ammir results) [facility] Physician) MO% 6.9 % Normal (applies to [facility] non-numeric (Ammir results) [facility] Physician) EO% 1.1 % Normal (applies to [facility] non-numeric (Ammir results) [facility] Physician) BA% 0.5 % Normal (applies to [facility] non-numeric (Ammir results) [facility] Physician) IG% 0.20 % Normal (applies to [facility] non-numeric (Ammir results) [facility] Physician) ID Date Data Source [id number] 07/31/2017 12:00:00 AM EDT [facility] (Ammir [facility] Physician) Name Value Range Interpretation Description Data Sup porting Code Source(s) Document(s ) GLUCOSE 75 mg/dL Normal (applies [facility] NONFASTING,SERUM to non-numeric (Ammir results) [facility] Physician) SODIUM, SERUM 140 Normal (applies [facility] mEq/L to non-numeric (Ammir results) [facility] Physician) POTASSIUM, SERUM 4.1 Normal (applies [facility] mEq/L to non-numeric (Ammir results) [facility] Physician) CHLORIDE, SERUM 107 Normal (applies [facility] mEq/L to non-numeric (Ammir results) [facility] Physician) Carbon dioxide 24 mEq/L Normal (applies [facility] [VFr/PPres] in to non-numeric (Ammir Gas delivery results) [facility] system Physician) Anion gap in 13.1 Normal (applies [facility] Body fluid mEq/L to non-numeric (Ammir results) [facility] Physician) BLOOD UREA 13 mg/dL Normal (applies [facility] NITROGEN to non-numeric (Ammir results) [facility] Physician) CREATININE, 0.80 Normal (applies [facility] SERUM mg/dL to non-numeric (Ammir results) [facility] Physician) CALCIUM, SERUM 8.8 Normal (applies [facility] mg/dL to non-numeric (Ammir results) [facility] Physician) TOTAL PROTEIN 6.9 g/dL Normal (applies [facility] to non-numeric (Ammir results) [facility] Physician) Microalbumin 3.7 g/dL Normal (applies [facility] [Mass/time] in to non-numeric (Ammir Urine collected results) Charles for unspecified Physician) duration Globulin 3.2 gldl Normal (applies [facility] [Mass/time] in to non-numeric (Ammir 24 hour Urine results) [facility] Physician) A/G RATIO 1.16 Normal (applies [facility] g/dl to non-numeric (Ammir results) [facility] Physician) BILIRUBIN, TOTAL 0.3 Normal (applies [facility] mg/dL to non-numeric (Ammir results) [facility] Physician) ALKALINE 64 U/L Normal (applies [facility] PHOSPHATASE, ALP to non-numeric (Ammir results) [facility] Physician) ALT (SGPT) 15 U/L Normal (applies [facility] to non-numeric (Ammir results) [facility] Physician) AST 23 U/L Normal (applies [facility] to non-numeric (Ammir results) [facility] Physician) EGFR NON AFR 82 Above high normal [facility] SUDANESE mL/min/1 (Ammir .73m2 Charles Physician) EGFR AFR 99 Above high normal [facility] SUDANESE mL/min/1 (Ammir .73m2 [facility] Physician) ID Date Data Source [id number] 07/31/2017 12:00:00 AM EDT [facility] (Ammir [facility] Physician) Name Value Range Interpretation Code Description Data Faiza rce(s) Supporting Document(s ) LH(LUTEIN 3 mIU/mL Above high normal [facility] (Ammi r IZING Charles HORMONE) Physician) ID Date Data Source [id number] 07/31/2017 12:00:00 AM EDT [facility] (Ammir [facility] Physician) Name Value Range Interpretation Code Description Data Faiza rce(s) Supporting Document(s ) BETA-hCG <2.0 Normal (applies to [facility] (Amm ir non-numeric results) [facility] Physician) ID Date Data Source [id number] 07/31/2017 12:00:00 AM EDT [facility] (Ammir [facility] Physician) Name Value Range Interpretation Description Data Sup porting Code Source(s) Document(s ) Progesterone 0.27 Above high normal [facility] [Mass/volume] in ng/mL (Ammir Saliva (oral Charles fluid) Physician) ID Date Data Source [id number] 07/31/2017 12:00:00 AM EDT [facility] (Ammir [facility] Physician) Name Value Range Interpretation Code Description Data Faiza rce(s) Supporting Document(s ) ESTRADIOL 45 pg/mL Above high normal [facility] (Ammi r -E2 [facility] Physician) ID Date Data Source [id number] 07/31/2017 12:00:00 AM EDT [facility] (Ammir [facility] Physician) Name Value Range Interpretation Description Data Sup porting Code Source(s) Document(s ) Prolactin 5.3 ng/mL Normal (applies to [facility] (Amm ir [Mass/volume] non-numeric Charles in Serum or results) Physician) Plasma by 3rd IS ID Date Data Source [id number] 07/31/2017 12:00:00 AM EDT [facility] (Ammir [facility] Physician) Name Value Range Interpretation Code Description Data Faiza rce(s) Supporting Document(s ) DHEA-SULF 48.1 ug/dl Normal (applies to [facility] (Am teetee ATE non-numeric Charles results) Physician) ID Date Data Source [id number] 07/31/2017 12:00:00 AM EDT [facility] (Ammir [facility] Physician) Name Value Range Interpretation Description Data Sup porting Code Source(s) Document(s ) PTH, INTACT 68.1 pg/mL Normal (applies to [facility] ( Ammir non-numeric Charles results) Physician) ID Date Data Source [id number] 07/31/2017 12:00:00 AM EDT [facility] (Ammir [facility] Physician) Name Value Range Interpretation Description Data Sup porting Code Source(s) Document(s ) EGG WHITE 0.12 kU/L Above high normal [facility] (Ammi r (F1) IGE [facility] Physician) MILK (F2) 0.16 kU/L Above high normal [facility] (Ammi r IGE [facility] Physician) CODFISH (F3) <0.10 Normal (applies to [facility] ( Ammir IGE non-numeric Charles results) Physician) WHEAT (F4) <0.10 Normal (applies to [facility] (Am teetee IGE non-numeric Charles results) Physician) MAIZE / CORN <0.10 Normal (applies to [facility] ( Ammir (F8) IGE non-numeric Charles results) Physician) SESAME SEED <0.10 Normal (applies to [facility] (A mmir (F10) IGE non-numeric Charles results) Physician) PEANUT (F13) <0.10 Normal (applies to [facility] ( Ammir IGE non-numeric Charles results) Physician) SOYBEAN <0.10 Normal (applies to [facility] (Amm ir (F14) IGE non-numeric Charles results) Physician) SHRIMP (F24) <0.10 Normal (applies to [facility] ( Ammir IGE non-numeric Charles results) Physician) WALNUT <0.10 Normal (applies to [facility] (Amm ir (F256) IGE non-numeric Charles results) Physician) SCALLOP <0.10 Normal (applies to [facility] (Amm ir (F338) IGE non-numeric Charles results) Physician) SALMON (F41) <0.10 Normal (applies to [facility] ( Ammir IGE non-numeric Charles results) Physician) TUNA (F40) <0.10 Normal (applies to [facility] (Am teetee IGE non-numeric Charles results) Physician) HAZELNUT(F17 <0.10 Normal (applies to [facility] ( Ammir ) IGE non-numeric Charles results) Physician) CASHEW <0.10 Normal (applies to [facility] (Amm ir NUT(F202) non-numeric Charles IGE results) Physician) ALMOND <0.10 Normal (applies to [facility] (Amm ir (F20)IGE non-numeric Charles results) Physician) TOTAL IGE 133 kU/L Above high normal [facility] (Ammi r [facility] Physician) ID Date Data Source [id number] 07/31/2017 12:00:00 AM EDT [facility] (Ammir [facility] Physician) Name Value Range Interpretation Description Data Sup porting Code Source(s) Document(s ) FSH(FOLLICLE 6.6 Above high normal [facility] STIMULATING mIU/mL (Ammir HORMONE) Charles Physician) ID Date Data Source [id number] 07/31/2017 12:00:00 AM EDT [facility] (Ammir [facility] Physician) Name Value Range Interpretation Description Data Sup porting Code Source(s) Document(s ) MULBERRY (T70) IGE <0.10 Normal (applies [facility] N to non-numeric (Ammir results) Charles Physician) OAK (T7) IGE <0.10 Normal (applies [facility] to non-numeric (Ammir results) Charles Physician) BERMUDA GRASS (G2) <0.10 Normal (applies [facility] N IGE to non-numeric (Ammir results) Charles Physician) RADU GRASS (G6) <0.10 Normal (applies [facility] N IGE to non-numeric (Ammir results) Charles Physician) COMMON RAGWEED WEED <0.10 Normal (applies [facility] EN to non-numeric (Ammir results) Charles Physician) MUGWORT (W6) IGE <0.10 Normal (applies [facility] to non-numeric (Ammir results) Charles Physician) ROUGH PIGWEED (W14) <0.10 Normal (applies [facility] EN IGE to non-numeric (Ammir results) Charles Physician) DERMATOPHAGOIDES <0.10 Normal (applies [facility] FARINAE to non-numeric (Ammir results) Charles Physician) CAT EPITHEL. & <0.10 Normal (applies [facility] DANDER IGE to non-numeric (Ammir results) Charles Physician) DOG DANDER (E5) IGE <0.10 Normal (applies [facility] EN to non-numeric (Ammir results) Charles Physician) COCKROACH (I6) IGE <0.10 Normal (applies [facility] N to non-numeric (Ammir results) Charles Physician) PENICILLIUM NOTATUM <0.10 Normal (applies [facility] EN (M1) to non-numeric (Ammir results) Charles Physician) CLADOSPORIUM <0.10 Normal (applies [facility] HERBARUM(M2) IGE to non-numeric (Ammir results) Charles Physician) ASPERGILLUS <0.10 Normal (applies [facility] FUMIGATUS (M3 to non-numeric (Ammir results) Charles Physician) ALTERNARIA <0.10 Normal (applies [facility] ALTERNATA (M6) to non-numeric (Ammir results) Charles Physician) MAPLE (BOX <0.10 Normal (applies [facility] ELEDER)(T1)IGE to non-numeric (Ammir results) Charles Physician) BIRCH (T3) IGE <0.10 Normal (applies [facility] to non-numeric (Ammir results) Charles Physician) [place] (T6) <0.10 Normal (applies [facility] EN IGE to non-numeric (Ammir results) Charles Physician) ELM (T8) IGE <0.10 Normal (applies [facility] to non-numeric (Ammir results) Charles Physician) WALNUT TREE (T10) <0.10 Normal (applies [facility] IGE to non-numeric (Ammir results) Charles Physician) [place] (T11) IGE <0.10 Normal (applies MED[facility] N to non-numeric (Ammir results) Charles Physician) [place] (T14) <0.10 Normal (applies [facility] IGE to non-numeric (Ammir results) Charles Physician) WH[place] LUIS (T15) IGE <0.10 Normal (applies [facility] EN to non-numeric (Ammir results) Charles Physician) D. PTERONYS <0.10 Normal (applies [facility] SINUS(D1) IGE to non-numeric (Ammir results) Charles Physician) SHEEP SORREL (W18) <0.10 Normal (applies [facility] N IGE to non-numeric (Ammir results) Charles Physician) MOUSE UR PROT (E72) <0.10 Normal (applies [facility] EN IGE to non-numeric (Ammir results) Charles Physician) ID Date Data Source [id number] 07/31/2017 12:00:00 AM EDT [facility] (Ammir Charles Physician) Name Value Range Interpretation Description Data Sup porting Code Source(s) Document(s ) GLUCOSE 75 mg/dL Normal (applies [facility] NONFASTING,SERUM to non-numeric (Ammir results) Charles Physician) SODIUM, SERUM 140 Normal (applies [facility] mEq/L to non-numeric (Ammir results) Charles Physician) POTASSIUM, SERUM 4.1 Normal (applies [facility] mEq/L to non-numeric (Ammir results) Charles Physician) CHLORIDE, SERUM 107 Normal (applies [facility] mEq/L to non-numeric (Ammir results) [place] Physician) Carbon dioxide 24 mEq/L Normal (applies [facility] [VFr/PPres] in to non-numeric (Ammir Gas delivery results) Charles system Physician) Anion gap in 13.1 Normal (applies [facility] Body fluid mEq/L to non-numeric (Ammir results) Charles Physician) BLOOD UREA 13 mg/dL Normal (applies [facility] NITROGEN to non-numeric (Ammir results) Charles Physician) CREATININE, 0.80 Normal (applies [facility] SERUM mg/dL to non-numeric (Ammir results) Charles Physician) CALCIUM, SERUM 8.8 Normal (applies [facility] mg/dL to non-numeric (Ammir results) Charles Physician) TOTAL PROTEIN 6.9 g/dL Normal (applies [facility] to non-numeric (Ammir results) Charles Physician) Microalbumin 3.7 g/dL Normal (applies [facility] [Mass/time] in to non-numeric (Ammir Urine collected results) Charles for unspecified Physician) duration Globulin 3.2 gldl Normal (applies [facility] [Mass/time] in to non-numeric (Ammir 24 hour Urine results) Charles Physician) A/G RATIO 1.16 Normal (applies [facility] g/dl to non-numeric (Ammir results) Charles Physician) BILIRUBIN, TOTAL 0.3 Normal (applies [facility] mg/dL to non-numeric (Ammir results) Charles Physician) ALKALINE 64 U/L Normal (applies [facility] PHOSPHATASE, ALP to non-numeric (Ammir results) Charles Physician) ALT (SGPT) 15 U/L Normal (applies [facility] to non-numeric (Ammir results) Charles Physician) AST 23 U/L Normal (applies [facility] to non-numeric (Ammir results) Charles Physician) EGFR NON AFR 82 Above high normal [facility] SUDANESE mL/min/1 (Ammir .73m2 Charles Physician) EGFR AFR 99 Above high normal [facility] SUDANESE mL/min/1 (Ammir .73m2 Charles Physician) ID Date Data Source [id number] 07/31/2017 12:00:00 AM EDT [facility] (Ammir Charles Physician) Name Value Range Interpretation Code Description Data Faiza rce(s) Supporting Document(s ) LH(LUTEIN 3 mIU/mL Above high normal [facility] (Ammi r IZING Chrales HORMONE) Physician) ID Date Data Source [id number] 07/31/2017 12:00:00 AM EDT [facility] (Ammir Charles Physician) Name Value Range Interpretation Code Description Data Faiza rce(s) Supporting Document(s ) BETA-hCG <2.0 Normal (applies to [facility] (Amm ir non-numeric results) Charles Physician) ID Date Data Source [id number] 07/31/2017 12:00:00 AM EDT [facility] (Ammir Charles Physician) Name Value Range Interpretation Description Data Sup porting Code Source(s) Document(s ) Progesterone 0.27 Above high normal [facility] [Mass/volume] in ng/mL (Ammir Saliva (oral Charles fluid) Physician) ID Date Data Source [id number] 07/31/2017 12:00:00 AM EDT [facility] (Ammir Charles Physician) Name Value Range Interpretation Code Description Data Faiza rce(s) Supporting Document(s ) ESTRADIOL 45 pg/mL Above high normal [facility] (Ammi r -E2 Charles Physician) ID Date Data Source [id number] 07/31/2017 12:00:00 AM EDT [facility] (Ammir Charles Physician) Name Value Range Interpretation Description Data Sup porting Code Source(s) Document(s ) Prolactin 5.3 ng/mL Normal (applies to [facility] (Amm ir [Mass/volume] non-numeric Charles in Serum or results) Physician) Plasma by 3rd IS ID Date Data Source [id number] 07/31/2017 12:00:00 AM EDT [facility] (Ammir Charles Physician) Name Value Range Interpretation Code Description Data Faiza rce(s) Supporting Document(s ) DHEA-SULF 48.1 ug/dl Normal (applies to [facility] (Am teetee ATE non-numeric Charles results) Physician) ID Date Data Source [id number] 07/31/2017 12:00:00 AM EDT [facility] (Ammir Charles Physician) Name Value Range Interpretation Description Data Sup porting Code Source(s) Document(s ) PTH, INTACT 68.1 pg/mL Normal (applies to [facility] ( Ammir non-numeric Charles results) Physician) ID Date Data Source [id number] 07/31/2017 12:00:00 AM EDT [facility] Physician[facility] Name Value Range Interpretation Description Data Sup porting Code Source(s) Document(s ) EGG WHITE 0.12 kU/L Above high normal [facility] (Ammi r (F1) IGE Charles Physician) MILK (F2) 0.16 kU/L Above high normal [facility] (Ammi r IGE Charles Physician) CODFISH (F3) <0.10 Normal (applies to [facility] ( Ammir IGE non-numeric Charles results) Physician) WHEAT (F4) <0.10 Normal (applies to [facility] (Am teetee IGE non-numeric Charles results) Physician) MAIZE / CORN <0.10 Normal [facility] ( Ammir (F8) IGE non-numeric Charles results) Physician) SESAME SEED <0.10 Normal (applies to [facility] (A mmir (F10) IGE non-numeric Charles results) Physician) PEANUT (F13) <0.10 Normal (applies to [facility] ( Ammir IGE non-numeric Charles results) Physician) SOYBEAN <0.10 Normal (applies to [facility] (Amm ir (F14) IGE non-numeric Charles results) Physician) SHRIMP (F24) <0.10 Normal (applies to [facility] ( Ammir IGE non-numeric Charles results) Physician) WALNUT <0.10 Normal (applies to [facility] (Amm ir (F256) IGE non-numeric Charles results) Physician) SCALLOP <0.10 Normal (applies to [facility] (Amm ir (F338) IGE non-numeric Charles results) Physician) SALMON (F41) <0.10 Normal (applies to [facility] ( Ammir IGE non-numeric Charles results) Physician) TUNA (F40) <0.10 Normal (applies to [facility] (Am teetee IGE non-numeric Charles results) Physician) HAZELNUT(F17 <0.10 Normal (applies to [facility] ( Ammir ) IGE non-numeric Charles results) Physician) CASHEW <0.10 Normal (applies to [facility] (Amm ir NUT(F202) non-numeric Charles IGE results) Physician) ALMOND <0.10 Normal (applies to [facility] (Amm ir (F20)IGE non-numeric Charles results) Physician) TOTAL IGE 133 kU/L Above high normal [facility] (Ammi r Charles Physician) ID Date Data Source [id number] 07/31/2017 12:00:00 AM EDT [facility] (Ammir Charles Physician) Name Value Range Interpretation Description Data Sup porting Code Source(s) Document(s ) FSH(FOLLICLE 6.6 Above high normal [facility] STIMULATING mIU/mL (Ammir HORMONE) Charles Physician) ID Date Data Source [id number] 07/31/2017 12:00:00 AM EDT [facility] (Ammir Charles Physician) Name Value Range Interpretation Description Data Sup porting Code Source(s) Document(s ) MULBERRY (T70) IGE <0.10 Normal (applies MED[facility] N to non-numeric (Ammir results) Charles Physician) OAK (T7) IGE <0.10 Normal (applies [facility] to non-numeric (Ammir results) Charles Physician) BERMUDA GRASS (G2) <0.10 Normal (applies MED[facility] N IGE to non-numeric (Ammir results) Charles Physician) RADU GRASS (G6) <0.10 Normal (applies MED[facility] N IGE to non-numeric (Ammir results) Charles Physician) COMMON RAGWEED WEED <0.10 Normal (applies MED[facility] EN to non-numeric (Ammir results) Charles Physician) MUGWORT (W6) IGE <0.10 Normal (applies [facility] to non-numeric (Ammir results) Charles Physician) ROUGH PIGWEED (W14) <0.10 Normal (applies MED[facility] EN IGE to non-numeric (Ammir results) Charles Physician) DERMATOPHAGOIDES <0.10 Normal (applies [facility] FARINAE to non-numeric (Ammir results) Charles Physician) CAT EPITHEL. & <0.10 Normal (applies [facility] DANDER IGE to non-numeric (Ammir results) Charles Physician) DOG DANDER (E5) IGE <0.10 Normal (applies [facility] EN to non-numeric (Ammir results) Charles Physician) COCKROACH (I6) IGE <0.10 Normal (applies MED[facility] N to non-numeric (Ammir results) Charles Physician) PENICILLIUM NOTATUM <0.10 Normal (applies MED[facility] EN (M1) to non-numeric (Ammir results) Charles Physician) CLADOSPORIUM <0.10 Normal (applies [facility] HERBARUM(M2) IGE to non-numeric (Ammir results) Charles Physician) ASPERGILLUS <0.10 Normal (applies [facility] FUMIGATUS (M3 to non-numeric (Ammir results) Charles Physician) ALTERNARIA <0.10 Normal (applies [facility] ALTERNATA (M6) to non-numeric (Ammir results) Charles Physician) MAPLE (BOX <0.10 Normal (applies [facility] ELEDER)(T1)IGE to non-numeric (Ammir results) Charles Physician) BIRCH (T3) IGE <0.10 Normal (applies [facility] to non-numeric (Ammir results) Charles Physician) MOUNTAIN CEDAR (T6) <0.10 Normal (applies MEDG EN IGE to non-numeric (Ammir results) Charles Physician) ELM (T8) IGE <0.10 Normal (applies [facility] to non-numeric (Ammir results) Charles Physician) WALNUT TREE (T10) <0.10 Normal (applies [facility] IGE to non-numeric (Ammir results) Charles Physician) SYCAMORE (T11) IGE <0.10 Normal (applies MEDGE N to non-numeric (Ammir results) Charles Physician) COT[place] (T14) <0.10 Normal (applies [facility] IGE to non-numeric (Ammir results) Charles Physician) WHITE LUIS (T15) IGE <0.10 Normal (applies MEDG EN to non-numeric (Ammir results) Charles Physician) D. PTERONYS <0.10 Normal (applies [facility] SINUS(D1) IGE to non-numeric (Ammir results) Charles Physician) SHEEP SORREL (W18) <0.10 Normal (applies MEDGE N IGE to non-numeric (Ammir results) Charles Physician) MOUSE UR PROT (E72) <0.10 Normal (applies MEDG EN IGE to non-numeric (Ammir results) Charles Physician) ID Date Data Source [id number] 07/31/2017 12:00:00 AM EDT [facility] (Ammir Charles Physician) Name Value Range Interpretation Description Data Sup porting Code Source(s) Document(s ) MULBERRY (T70) IGE <0.10 Normal (applies MEDGE N to non-numeric (Ammir results) Charles Physician) OAK (T7) IGE <0.10 Normal (applies [facility] to non-numeric (Ammir results) Charles Physician) BERMUDA GRASS (G2) <0.10 Normal (applies MEDGE N IGE to non-numeric (Ammir results) Charles Physician) RADU GRASS (G6) <0.10 Normal (applies MEDGE N IGE to non-numeric (Ammir results) Charles Physician) COMMON RAGWEED WEED <0.10 Normal (applies MEDG EN to non-numeric (Ammir results) Charles Physician) MUGWORT (W6) IGE <0.10 Normal (applies [facility] to non-numeric (Ammir results) Charles Physician) ROUGH PIGWEED (W14) <0.10 Normal (applies MEDG EN IGE to non-numeric (Ammir results) Charles Physician) DERMATOPHAGOIDES <0.10 Normal (applies [facility] FARINAE to non-numeric (Ammir results) Charles Physician) CAT EPITHEL. & <0.10 Normal (applies [facility] DANDER IGE to non-numeric (Ammir results) Charles Physician) DOG DANDER (E5) IGE <0.10 Normal (applies MEDG EN to non-numeric (Ammir results) Charles Physician) COCKROACH (I6) IGE <0.10 Normal (applies MEDGE N to non-numeric (Ammir results) Charles Physician) CLADOSPORIUM <0.10 Normal (applies [facility] HERBARUM(M2) IGE to non-numeric (Ammir results) Charles Physician) PENICILLIUM NOTATUM <0.10 Normal (applies MEDG EN (M1) to non-numeric (Ammir results) Charles Physician) ASPERGILLUS <0.10 Normal (applies [facility] FUMIGATUS (M3 to non-numeric (Ammir results) Charles Physician) ALTERNARIA <0.10 Normal (applies [facility] ALTERNATA (M6) to non-numeric (Ammir results) Charles Physician) MAPLE (BOX <0.10 Normal (applies [facility] ELEDER)(T1)IGE to non-numeric (Ammir results) Charles Physician) BIRCH (T3) IGE <0.10 Normal (applies [facility] to non-numeric (Ammir results) Charles Physician) MOUNTAIN CEDAR (T6) <0.10 Normal (applies MEDG EN IGE to non-numeric (Ammir results) Charles Physician) ELM (T8) IGE <0.10 Normal (applies [facility] to non-numeric (Ammir results) Charles Physician) W[place] TREE (T10) <0.10 Normal (applies [facility] IGE to non-numeric (Ammir results) Charles Physician) [place] (T11) IGE <0.10 Normal (applies MEDGE N to non-numeric (Ammir results) Charles Physician) [place] (T14) <0.10 Normal (applies [facility] IGE to non-numeric (Ammir results) Charles Physician) WHITE LUIS (T15) IGE <0.10 Normal (applies MEDG EN to non-numeric (Ammir results) Charles Physician) D. PTERONYS <0.10 Normal (applies [facility] SINUS(D1) IGE to non-numeric (Ammir results) Charles Physician) SHEEP SORREL (W18) <0.10 Normal (applies MEDGE N IGE to non-numeric (Ammir results) Charles Physician) MOUSE UR PROT (E72) <0.10 Normal (applies MEDG EN IGE to non-numeric (Ammir results) Charles Physician) ID Date Data Source [id number] 07/31/2017 12:00:00 AM EDT [facility] (Ammir Charles Physician) Name Value Range Interpretation Code Description Data Faiza rce(s) Supporting Document(s ) DIHYDROTES 16 Normal (applies to [facility] (Am teetee TOSTERON,L non-numeric results) [facility] ID Date Data Source [id number] 07/31/2017 12:00:00 AM EDT [facility] (Ammir Charles Physician) Name Value Range Interpretation Code Description Data Faiza rce(s) Supporting Document(s ) ESTROGEN, 138.4 Normal (applies to [facility] (Amm ir TOTAL, non-numeric Charles SERUM results) Physician) ID Date Data Source [id number] 07/31/2017 12:00:00 AM EDT [facility] (Ammir Charles Physician) Name Value Range Interpretation Code Description Data Supporting Source(s) Document(s ) RADHA 0.3 Ratio Normal (applies to [facility] (Amm ir Screen(Sym non-numeric Charles phony) results) Physician) dsDNA 1.3 IU/ml Normal (applies to [facility] (Amm ir non-numeric Charles results) Physician) ID Date Data Source [id number] 07/31/2017 12:00:00 AM EDT [facility] (Ammir Charles Physician) Name Value Range Interpretation Code Description Data Faiza rce(s) Supporting Document(s ) ESR 24 mm/hr Above high normal [facility] (Ammi r Charles Physician) ID Date Data Source [id number] 07/31/2017 12:00:00 AM EDT [facility] (Ammir Charles Physician) Name Value Range Interpretation Description Data Sup porting Code Source(s) Document(s ) RHEUMATOID 5.30 Normal (applies to [facility] FACTOR IGG/IGM IU/mL non-numeric (Ammir results) Charles Physician) ID Date Data Source [id number] 07/31/2017 12:00:00 AM EDT [facility] (Ammir Charles Physician) Name Value Range Interpretation Code Description Data Faiza rce(s) Supporting Document(s ) URIC ACID 4.6 mg/dL Normal (applies to [facility] (Amm ir non-numeric Charles results) Physician) ID Date Data Source [id number] 07/31/2017 12:00:00 AM EDT [facility] (Ammir Charles Physician) Name Value Range Interpretation Code Description Data Faiza rce(s) Supporting Document(s ) SSA/Ro IgG <0.3 Normal (applies to [facility] (Am teetee non-numeric results) Charles Physician) ID Date Data Source [id number] 07/31/2017 12:00:00 AM EDT [facility] (Ammir Charles Physician) Name Value Range Interpretation Code Description Data Faiza rce(s) Supporting Document(s ) SSB/La IgG <0.3 Normal (applies to [facility] (Am teetee non-numeric results) Charles Physician) ID Date Data Source [id number] 07/31/2017 12:00:00 AM EDT [facility] (Ammir Charles Physician) Name Value Range Interpretation Code Description Data Supporting Source(s) Document(s ) Gordon IgG 1.6 Robert Normal (applies to [facility] (Amm ir U/mL non-numeric Charles results) Physician) ION IMPLANT MACHINE OPERATOR IgG 1.9 Robert Normal (applies to [facility] (Amm ir U/mL non-numeric Charles results) Physician) ID Date Data Source [id number] 07/31/2017 12:00:00 AM EDT [facility] (Ammir Charles Physician) Name Value Range Interpretation Description Data Sup porting Code Source(s) Document(s ) C-REACTIVE 1.7 mg/dL Above high normal [facility] (Amm ir PROTEIN Charles (INFL) Physician) ID Date Data Source [id number] 07/31/2017 12:00:00 AM EDT [facility] (Ammir Charles Physician) Name Value Range Interpretation Description Data Sup porting Code Source(s) Document(s ) WBC 6.6 Normal (applies to [facility] 10(3)/uL non-numeric (Ammir results) Charles Physician) RBC 4.1 Normal (applies to [facility] 10(6)/uL non-numeric (Ammir results) Charles Physician) Hemoglobin 10.8 g/dL Below low normal [facility] [Mass/volume] (Ammir in Mixed Charles venous blood Physician) by Oximetry Hematocrit 33.9 % Below low normal [facility] [Pure volume (Ammir fraction] of Charles Blood by Physician) Automated count MCV 81.9 fL Normal (applies to [facility] non-numeric (Ammir results) Charles Physician) MCH 26 pg Normal (applies to [facility] non-numeric (Ammir results) Charles Physician) MCHC 32 g/dL Normal (applies to [facility] non-numeric (Ammir results) Charles Physician) RDWSD 46.8 fL Normal (applies to [facility] non-numeric (Ammir results) Charles Physician) RDWCV 15.7 % Above high normal [facility] (Ammir Charles Physician) PLT 304 Normal (applies to [facility] 10(3)/uL non-numeric (Ammir results) Charles Physician) MPV 10.8 fL Normal (applies to [facility] non-numeric (Ammir results) Charles Physician) NE# 3.53 Normal (applies to [facility] 10(3)/uL non-numeric (Ammir results) Charles Physician) LY# 2.46 Normal (applies to [facility] 10(3)/uL non-numeric (Ammir results) Charles Physician) MO# 0.45 Normal (applies to [facility] 10(3)/uL non-numeric (Ammir results) Charles Physician) EO# 0.07 Normal (applies to [facility] 10(3)/uL non-numeric (Ammir results) Charles Physician) IG# 0.01 Normal (applies to [facility] 10(3)/uL non-numeric (Ammir results) Charles Physician) NE% 53.70 % Normal (applies to [facility] non-numeric (Ammir results) Charles Physician) LY% 38 % Normal (applies to [facility] non-numeric (Ammir results) Charles Physician) MO% 6.9 % Normal (applies to [facility] non-numeric (Ammir results) Charles Physician) EO% 1.1 % Normal (applies to [facility] non-numeric (Ammir results) Charles Physician) BA% 0.5 % Normal (applies to [facility] non-numeric (Ammir results) Charles Physician) IG% 0.20 % Normal (applies to [facility] non-numeric (Ammir results) Charles Physician) ID Date Data Source [id number] 07/31/2017 12:00:00 AM EDT [facility] (Ammir Charles Physician) Name Value Range Interpretation Description Data Sup porting Code Source(s) Document(s ) GLUCOSE 75 mg/dL Normal (applies [facility] NONFASTING,SERUM to non-numeric (Ammir results) Charles Physician) SODIUM, SERUM 140 Normal (applies [facility] mEq/L to non-numeric (Ammir results) Charles Physician) POTASSIUM, SERUM 4.1 Normal (applies [facility] mEq/L to non-numeric (Ammir results) Charles Physician) CHLORIDE, SERUM 107 Normal (applies [facility] mEq/L to non-numeric (Ammir results) Charles Physician) Carbon dioxide 24 mEq/L Normal (applies [facility] [VFr/PPres] in to non-numeric (Ammir Gas delivery results) Charles system Physician) Anion gap in 13.1 Normal (applies [facility] Body fluid mEq/L to non-numeric (Ammir results) Charles Physician) BLOOD UREA 13 mg/dL Normal (applies [facility] NITROGEN to non-numeric (Ammir results) Charles Physician) CREATININE, 0.80 Normal (applies [facility] SERUM mg/dL to non-numeric (Ammir results) Charles Physician) CALCIUM, SERUM 8.8 Normal (applies [facility] mg/dL to non-numeric (Ammir results) Charles Physician) TOTAL PROTEIN 6.9 g/dL Normal (applies [facility] to non-numeric (Ammir results) Charles Physician) Microalbumin 3.7 g/dL Normal (applies [facility] [Mass/time] in to non-numeric (Ammir Urine collected results) Charles for unspecified Physician) duration Globulin 3.2 gldl Normal (applies [facility] [Mass/time] in to non-numeric (Ammir 24 hour Urine results) Charles Physician) A/G RATIO 1.16 Normal (applies [facility] g/dl to non-numeric (Ammir results) Charles Physician) ALKALINE 64 U/L Normal (applies [facility] PHOSPHATASE, ALP to non-numeric (Ammir results) Charles Physician) BILIRUBIN, TOTAL 0.3 Normal (applies [facility] mg/dL to non-numeric (Ammir results) Charels Physician) ALT (SGPT) 15 U/L Normal (applies [facility] to non-numeric (Ammir results) Charles Physician) AST 23 U/L Normal (applies [facility] to non-numeric (Ammir results) Charles Physician) EGFR NON AFR 82 Above high normal [facility] SUDANESE mL/min/1 (Ammir .73m2 Charles Physician) EGFR AFR 99 Above high normal [facility] SUDANESE mL/min/1 (Ammir .73m2 Charles Physician) ID Date Data Source [id number] 07/31/2017 12:00:00 AM EDT [facility] (Ammir Charles Physician) Name Value Range Interpretation Code Description Data Faiza rce(s) Supporting Document(s ) LH(LUTEIN 3 mIU/mL Above high normal [facility] (Ammi r IZING Charles HORMONE) Physician) ID Date Data Source [id number] 07/31/2017 12:00:00 AM EDT [facility] (Ammir Charles Physician) Name Value Range Interpretation Code Description Data Faiza rce(s) Supporting Document(s ) BETA-hCG <2.0 Normal (applies to [facility] (Amm ir non-numeric results) Charles Physician) ID Date Data Source [id number] 07/31/2017 12:00:00 AM EDT [facility] (Ammir Charles Physician) Name Value Range Interpretation Description Data Sup porting Code Source(s) Document(s ) Progesterone 0.27 Above high normal [facility] [Mass/volume] in ng/mL (Ammir Saliva (oral Charles fluid) Physician) ID Date Data Source [id number] 07/31/2017 12:00:00 AM EDT [facility] (Ammir Charles Physician) Name Value Range Interpretation Description Data Sup porting Code Source(s) Document(s ) PTH, INTACT 68.1 pg/mL Normal (applies to [facility] ( Ammir non-numeric Charles results) Physician) ID Date Data Source [id number] 07/31/2017 12:00:00 AM EDT [facility] (Ammir Charles Physician) Name Value Range Interpretation Description Data Sup porting Code Source(s) Document(s ) EGG WHITE 0.12 kU/L Above high normal [facility] (Ammi r (F1) IGE Charles Physician) MILK (F2) 0.16 kU/L Above high normal [facility] (Ammi r IGE Charles Physician) CODFISH (F3) <0.10 Normal (applies to [facility] ( Ammir IGE non-numeric Charles results) Physician) WHEAT (F4) <0.10 Normal (applies to [facility] (Am teetee IGE non-numeric Charles results) Physician) MAIZE / CORN <0.10 Normal (applies to [facility] ( Ammir (F8) IGE non-numeric Charles results) Physician) SESAME SEED <0.10 Normal (applies to [facility] (A mmir (F10) IGE non-numeric Charles results) Physician) PEANUT (F13) <0.10 Normal (applies to [facility] ( Ammir IGE non-numeric Charles results) Physician) SOYBEAN <0.10 Normal (applies to [facility] (Amm ir (F14) IGE non-numeric Charles results) Physician) SHRIMP (F24) <0.10 Normal (applies to [facility] ( Ammir IGE non-numeric Charles results) Physician) WALNUT <0.10 Normal (applies to [facility] (Amm ir (F256) IGE non-numeric Charles results) Physician) SCALLOP <0.10 Normal (applies to [facility] (Amm ir (F338) IGE non-numeric Charles results) Physician) SALMON (F41) <0.10 Normal (applies to [facility] ( Ammir IGE non-numeric Charles results) Physician) TUNA (F40) <0.10 Normal (applies to [facility] (Am teetee IGE non-numeric Charles results) Physician) HAZELNUT(F17 <0.10 Normal (applies to [facility] ( Ammir ) IGE non-numeric Charles results) Physician) CASHEW <0.10 Normal (applies to [facility] (Amm ir NUT(F202) non-numeric Charles IGE results) Physician) ALMOND <0.10 Normal (applies to [facility] (Amm ir (F20)IGE non-numeric Charles results) Physician) TOTAL IGE 133 kU/L Above high normal [facility] (Ammi r Charles Physician) ID Date Data Source [id number] 07/31/2017 12:00:00 AM EDT [facility] (Ammir Charles Physician) Name Value Range Interpretation Description Data Sup porting Code Source(s) Document(s ) FSH(FOLLICLE 6.6 Above high normal [facility] STIMULATING mIU/mL (Ammir HORMONE) Charles Physician) ID Date Data Source [id number] 07/31/2017 12:00:00 AM EDT [facility] (Ammir Charles Physician) Name Value Range Interpretation Description Data Sup porting Code Source(s) Document(s ) Prolactin 5.3 ng/mL Normal (applies to [facility] (Amm ir [Mass/volume] non-numeric Charles in Serum or results) Physician) Plasma by 3rd IS ID Date Data Source [id number] 07/31/2017 12:00:00 AM EDT [facility] (Ammir Charles Physician) Name Value Range Interpretation Code Description Data Faiza rce(s) Supporting Document(s ) DHEA-SULF 48.1 ug/dl Normal (applies to [facility] (Am teetee ATE non-numeric Charles results) Physician) ID Date Data Source [id number] 07/31/2017 12:00:00 AM EDT [facility] (Ammir Charles Physician) Name Value Range Interpretation Description Data Sup porting Code Source(s) Document(s ) PTH, INTACT 68.1 pg/mL Normal (applies to [facility] ( Ammir non-numeric Charles results) Physician) ID Date Data Source [id number] 07/31/2017 12:00:00 AM EDT [facility] (Ammir Charles Physician) Name Value Range Interpretation Description Data Sup porting Code Source(s) Document(s ) EGG WHITE 0.12 kU/L Above high normal [facility] (Ammi r (F1) IGE Charles Physician) MILK (F2) 0.16 kU/L Above high normal [facility] (Ammi r IGE Charles Physician) CODFISH (F3) <0.10 Normal (applies to [facility] ( Ammir IGE non-numeric Charles results) Physician) WHEAT (F4) <0.10 Normal (applies to [facility] (Am teetee IGE non-numeric Charles results) Physician) MAIZE / CORN <0.10 Normal (applies to [facility] ( Ammir (F8) IGE non-numeric Charles results) Physician) SESAME SEED <0.10 Normal (applies to [facility] (A mmir (F10) IGE non-numeric Charles results) Physician) PEANUT (F13) <0.10 Normal (applies to [facility] ( Ammir IGE non-numeric Charles results) Physician) SOYBEAN <0.10 Normal (applies to [facility] (Amm ir (F14) IGE non-numeric Charles results) Physician) SHRIMP (F24) <0.10 Normal (applies to [facility] ( Ammir IGE non-numeric Charles results) Physician) WALNUT <0.10 Normal (applies to [facility] (Amm ir (F256) IGE non-numeric Charles results) Physician) SCALLOP <0.10 Normal (applies to [facility] (Amm ir (F338) IGE non-numeric Charles results) Physician) SALMON (F41) <0.10 Normal (applies to [facility] ( Ammir IGE non-numeric Charles results) Physician) TUNA (F40) <0.10 Normal (applies to [facility] (Am teetee IGE non-numeric Charles results) Physician) HAZELNUT(F17 <0.10 Normal (applies to [facility] ( Ammir ) IGE non-numeric Charles results) Physician) CASHEW <0.10 Normal (applies to [facility] (Amm ir NUT(F202) non-numeric Charles IGE results) Physician) ALMOND <0.10 Normal (applies to [facility] (Amm ir (F20)IGE non-numeric Charles results) Physician) TOTAL IGE 133 kU/L Above high normal [facility] (Ammi r Charles Physician) ID Date Data Source [id number] 07/31/2017 12:00:00 AM EDT [facility] (Ammir Charles Physician) Name Value Range Interpretation Description Data Sup porting Code Source(s) Document(s ) FSH(FOLLICLE 6.6 Above high normal [facility] STIMULATING mIU/mL (Ammir HORMONE) Charles Physician) ID Date Data Source [id number] 07/31/2017 12:00:00 AM EDT [facility] (Ammir Charles Physician) Name Value Range Interpretation Description Data Sup porting Code Source(s) Document(s ) MULBERRY (T70) IGE <0.10 Normal (applies MED[facility] N to non-numeric (Ammir results) Charles Physician) OAK (T7) IGE <0.10 Normal (applies [facility] to non-numeric (Ammir results) Charles Physician) BERMUDA GRASS (G2) <0.10 Normal (applies MEDGE N IGE to non-numeric (Ammir results) Charles Physician) RADU GRASS (G6) <0.10 Normal (applies MEDGE N IGE to non-numeric (Ammir results) Charles Physician) COMMON RAGWEED WEED <0.10 Normal (applies MEDG EN to non-numeric (Ammir results) Charles Physician) ROUGH PIGWEED (W14) <0.10 Normal (applies MEDG EN IGE to non-numeric (Ammir results) Charles Physician) MUGWORT (W6) IGE <0.10 Normal (applies [facility] to non-numeric (Ammir results) Charles Physician) DERMATOPHAGOIDES <0.10 Normal (applies [facility] FARINAE to non-numeric (Ammir results) Charles Physician) CAT EPITHEL. & <0.10 Normal (applies [facility] DANDER IGE to non-numeric (Ammir results) Charles Physician) DOG DANDER (E5) IGE <0.10 Normal (applies [facility] EN to non-numeric (Ammir results) Charles Physician) COCKROACH (I6) IGE <0.10 Normal (applies MED[facility] N to non-numeric (Ammir results) Charles Physician) CLADOSPORIUM <0.10 Normal (applies [facility] HERBARUM(M2) IGE to non-numeric (Ammir results) Charles Physician) PENICILLIUM NOTATUM <0.10 Normal (applies MEDG EN (M1) to non-numeric (Ammir results) Charles Physician) ASPERGILLUS <0.10 Normal (applies [facility] FUMIGATUS (M3 to non-numeric (Ammir results) Charles Physician) ALTERNARIA <0.10 Normal (applies [facility] ALTERNATA (M6) to non-numeric (Ammir results) Charles Physician) MAPLE (BOX <0.10 Normal (applies [facility] ELEDER)(T1)IGE to non-numeric (Ammir results) Charles Physician) BIRCH (T3) IGE <0.10 Normal (applies [facility] to non-numeric (Ammir results) Charles Physician) MOUNTAIN CEDAR (T6) <0.10 Normal (applies MEDG EN IGE to non-numeric (Ammir results) Charles Physician) ELM (T8) IGE <0.10 Normal (applies [facility] to non-numeric (Ammir results) Charles Physician) WALNUT TREE (T10) <0.10 Normal (applies [facility] IGE to non-numeric (Ammir results) Charles Physician) SY[place] (T11) IGE <0.10 Normal (applies MEDGE N to non-numeric (Ammir results) Charles Physician) [place] (T14) <0.10 Normal (applies [facility] IGE to non-numeric (Ammir results) Charles Physician) WHITE LUIS (T15) IGE <0.10 Normal (applies MEDG EN to non-numeric (Ammir results) Charles Physician) D. PTERONYS <0.10 Normal (applies [facility] SINUS(D1) IGE to non-numeric (Ammir results) Charles Physician) SHEEP SORREL (W18) <0.10 Normal (applies MEDGE N IGE to non-numeric (Ammir results) Charles Physician) MOUSE UR PROT (E72) <0.10 Normal (applies MEDG EN IGE to non-numeric (Ammir results) Charles Physician) ID Date Data Source [id number] 07/31/2017 12:00:00 AM EDT [facility] (Ammir Charles Physician) Name Value Range Interpretation Code Description Data Faiza rce(s) Supporting Document(s ) DIHYDROTES 16 Normal (applies to [facility] (Am teetee TOSTERON,L non-numeric results) Charles [facility] Physician) ID Date Data Source [id number] 07/31/2017 12:00:00 AM EDT [facility] (Ammir Charles Physician) Name Value Range Interpretation Code Description Data Faiza rce(s) Supporting Document(s ) ESTROGEN, 138.4 Normal (applies to [facility] (Amm ir TOTAL, non-numeric Charles SERUM results) Physician) ID Date Data Source [id number] 07/31/2017 12:00:00 AM EDT [facility] (Ammir Charles Physician) Name Value Range Interpretation Code Description Data Supporting Source(s) Document(s ) RADHA 0.3 Ratio Normal (applies to [facility] (Amm ir Screen(Sym non-numeric Charles phony) results) Physician) dsDNA 1.3 IU/ml Normal (applies to [facility] (Amm ir non-numeric Charles results) Physician) ID Date Data Source [id number] 07/31/2017 12:00:00 AM EDT [facility] (Ammir Charles Physician) Name Value Range Interpretation Code Description Data Faiza rce(s) Supporting Document(s ) ESR 24 mm/hr Above high normal [facility] (Ammi r Charles Physician) ID Date Data Source [id number] 07/31/2017 12:00:00 AM EDT [facility] (Ammir Charles Physician) Name Value Range Interpretation Description Data Sup porting Code Source(s) Document(s ) RHEUMATOID 5.30 Normal (applies to [facility] FACTOR IGG/IGM IU/mL non-numeric (Ammir results) Charles Physician) ID Date Data Source [id number] 07/31/2017 12:00:00 AM EDT [facility] (Ammir Charles Physician) Name Value Range Interpretation Code Description Data Faiza rce(s) Supporting Document(s ) URIC ACID 4.6 mg/dL Normal (applies to [facility] (Amm ir non-numeric Charles results) Physician) ID Date Data Source [id number] 07/31/2017 12:00:00 AM EDT [facility] (Ammir Charles Physician) Name Value Range Interpretation Code Description Data Faiza rce(s) Supporting Document(s ) SSA/Ro IgG <0.3 Normal (applies to [facility] (Am teetee non-numeric results) Charles Physician) ID Date Data Source [id number] 07/31/2017 12:00:00 AM EDT [facility] (Ammir Charles Physician) Name Value Range Interpretation Code Description Data Faiza rce(s) Supporting Document(s ) SSB/La IgG <0.3 Normal (applies to [facility] (Am teetee non-numeric results) [place] Physician) ID Date Data Source [id number] 07/31/2017 12:00:00 AM EDT [facility] (Ammir Charles Physician) Name Value Range Interpretation Code Description Data Supporting Source(s) Document(s ) Gordon IgG 1.6 Robert Normal (applies to [facility] (Amm ir U/mL non-numeric Charles results) Physician) ION IMPLANT MACHINE OPERATOR IgG 1.9 Robert Normal (applies to [facility] (Amm ir U/mL non-numeric Charles results) Physician) ID Date Data Source [id number] 07/31/2017 12:00:00 AM EDT [facility] (Ammir Charles Physician) Name Value Range Interpretation Description Data Sup porting Code Source(s) Document(s ) Cyclic 0.6 U/ml Normal (applies [facility] Citrullinated to non-numeric (Ammir Peptide IgG results) Charles Physician) ID Date Data Source [id number] 07/31/2017 12:00:00 AM EDT [facility] (Ammir Charles Physician) Name Value Range Interpretation Description Data Sup porting Code Source(s) Document(s ) C-REACTIVE 1.7 mg/dL Above high normal [facility] (Amm ir PROTEIN Charles (INFL) Physician) ID Date Data Source [id number] 07/31/2017 12:00:00 AM EDT [facility] (Ammir Charles Physician) Name Value Range Interpretation Description Data Sup porting Code Source(s) Document(s ) WBC 6.6 Normal (applies to [facility] 10(3)/uL non-numeric (Ammir results) Charles Physician) RBC 4.1 Normal (applies to [facility] 10(6)/uL non-numeric (Ammir results) Charles Physician) Hemoglobin 10.8 g/dL Below low normal [facility] [Mass/volume] (Ammir in Mixed Charles venous blood Physician) by Oximetry Hematocrit 33.9 % Below low normal [facility] [Pure volume (Ammir fraction] of Charles Blood by Physician) Automated count MCV 81.9 fL Normal (applies to [facility] non-numeric (Ammir results) Charles Physician) MCH 26 pg Normal (applies to [facility] non-numeric (Ammir results) [place] Physician) MCHC 32 g/dL Normal (applies to [facility] non-numeric (Ammir results) Charles Physician) RDWSD 46.8 fL Normal (applies to [facility] non-numeric (Ammir results) Charles Physician) RDWCV 15.7 % Above high normal [facility] (Ammir Charles Physician) PLT 304 Normal (applies to [facility] 10(3)/uL non-numeric (Ammir results) Charles Physician) MPV 10.8 fL Normal (applies to [facility] non-numeric (Ammir results) Charles Physician) NE# 3.53 Normal (applies to [facility] 10(3)/uL non-numeric (Ammir results) Charles Physician) LY# 2.46 Normal (applies to [facility] 10(3)/uL non-numeric (Ammir results) Charles Physician) MO# 0.45 Normal (applies to [facility] 10(3)/uL non-numeric (Ammir results) Charles Physician) EO# 0.07 Normal (applies to [facility] 10(3)/uL non-numeric (Ammir results) Charles Physician) IG# 0.01 Normal (applies to [facility] 10(3)/uL non-numeric (Ammir results) Charles Physician) NE% 53.70 % Normal (applies to [facility] non-numeric (Ammir results) Charles Physician) LY% 38 % Normal (applies to [facility] non-numeric (Ammir results) Charles Physician) MO% 6.9 % Normal (applies to [facility] non-numeric (Ammir results) Charles Physician) EO% 1.1 % Normal (applies to [facility] non-numeric (Ammir results) Charles Physician) BA% 0.5 % Normal (applies to [facility] non-numeric (Ammir results) Charles Physician) IG% 0.20 % Normal (applies to [facility] non-numeric (Ammir results) Charles Physician) ID Date Data Source [id number] 07/31/2017 12:00:00 AM EDT [facility] (Ammir Charles Physician) Name Value Range Interpretation Code Description Data Supporting Source(s) Document(s ) RADHA 0.3 Ratio Normal (applies to [facility] (Amm ir Screen(Sym non-numeric Charles phony) results) Physician) dsDNA 1.3 IU/ml Normal (applies to [facility] (Amm ir non-numeric Charles results) Physician) ID Date Data Source [id number] 07/31/2017 12:00:00 AM EDT [facility] (Ammir Charles Physician) Name Value Range Interpretation Code Description Data Faiza rce(s) Supporting Document(s ) ESR 24 mm/hr Above high normal [facility] (Ammi r Charles Physician) ID Date Data Source [id number] 07/31/2017 12:00:00 AM EDT [facility] (Ammir Charles Physician) Name Value Range Interpretation Description Data Sup porting Code Source(s) Document(s ) RHEUMATOID 5.30 Normal (applies to [facility] FACTOR IGG/IGM IU/mL non-numeric (Ammir results) Charles Physician) ID Date Data Source [id number] 07/31/2017 12:00:00 AM EDT [facility] (Ammir Charles Physician) Name Value Range Interpretation Code Description Data Faiza rce(s) Supporting Document(s ) URIC ACID 4.6 mg/dL Normal (applies to [facility] (Amm ir non-numeric Charles results) Physician) ID Date Data Source [id number] 07/31/2017 12:00:00 AM EDT [facility] (Ammir Charles Physician) Name Value Range Interpretation Code Description Data Faiza rce(s) Supporting Document(s ) SSA/Ro IgG <0.3 Normal (applies to [facility] (Am teetee non-numeric results) Charles Physician) ID Date Data Source [id number] 07/31/2017 12:00:00 AM EDT [facility] (Ammir Charles Physician) Name Value Range Interpretation Code Description Data Faiza rce(s) Supporting Document(s ) SSB/La IgG <0.3 Normal (applies to [facility] (Am teetee non-numeric results) Charles Physician) ID Date Data Source [id number] 07/31/2017 12:00:00 AM EDT [facility] (Ammir Charles Physician) Name Value Range Interpretation Code Description Data Supporting Source(s) Document(s ) Gordon IgG 1.6 Robert Normal (applies to [facility] (Amm ir U/mL non-numeric Charles results) Physician) [employer]ON [employer] MACHINE OPERATOR IgG 1.9 Robert Normal (applies to [facility] (Amm ir U/mL non-numeric Charles results) Physician) ID Date Data Source [id number] 07/31/2017 12:00:00 AM EDT [facility] (Ammir Charles Physician) Name Value Range Interpretation Description Data Sup porting Code Source(s) Document(s ) Cyclic 0.6 U/ml Normal (applies [facility] Citrullinated to non-numeric (Ammir Peptide IgG results) Charles Physician) ID Date Data Source [id number] 07/31/2017 12:00:00 AM EDT [facility] (Ammir Charles Physician) Name Value Range Interpretation Description Data Sup porting Code Source(s) Document(s ) C-REACTIVE 1.7 mg/dL Above high normal [facility] (Amm ir PROTEIN Charles (INFL) Physician) ID Date Data Source [id number] 07/31/2017 12:00:00 AM EDT [facility] (Ammir Charles Physician) Name Value Range Interpretation Description Data Sup porting Code Source(s) Document(s ) WBC 6.6 Normal (applies to [facility] 10(3)/uL non-numeric (Ammir results) Charles Physician) RBC 4.1 Normal (applies to [facility] 10(6)/uL non-numeric (Ammir results) Charles Physician) Hemoglobin 10.8 g/dL Below low normal [facility] [Mass/volume] (Ammir in Mixed Charles venous blood Physician) by Oximetry Hematocrit 33.9 % Below low normal [facility] [Pure volume (Ammir fraction] of [facility] Blood by Physician) Automated count MCV 81.9 fL Normal (applies to [facility] non-numeric (Ammir results) Charles Physician) MCH 26 pg Normal (applies to [facility] non-numeric (Ammir results) Charles Physician) MCHC 32 g/dL Normal (applies to [facility] non-numeric (Ammir results) Charles Physician) RDWSD 46.8 fL Normal (applies to [facility] non-numeric (Ammir results) Charles Physician) RDWCV 15.7 % Above high normal [facility] (Ammir Charles Physician) PLT 304 Normal (applies to [facility] 10(3)/uL non-numeric (Ammir results) Charles Physician) MPV 10.8 fL Normal (applies to [facility] non-numeric (Ammir results) Charles Physician) NE# 3.53 Normal (applies to [facility] 10(3)/uL non-numeric (Ammir results) Charles Physician) LY# 2.46 Normal (applies to [facility] 10(3)/uL non-numeric (Ammir results) Charles Physician) MO# 0.45 Normal (applies to [facility] 10(3)/uL non-numeric (Ammir results) Charles Physician) EO# 0.07 Normal (applies to [facility] 10(3)/uL non-numeric (Ammir results) Charles Physician) IG# 0.01 Normal (applies to [facility] 10(3)/uL non-numeric (Ammir results) Charles Physician) NE% 53.70 % Normal (applies to [facility] non-numeric (Ammir results) Charles Physician) LY% 38 % Normal (applies to [facility] non-numeric (Ammir results) Charles Physician) MO% 6.9 % Normal (applies to [facility] non-numeric (Ammir results) Charles Physician) EO% 1.1 % Normal (applies to [facility] non-numeric (Ammir results) Charles Physician) BA% 0.5 % Normal (applies to [facility] non-numeric (Ammir results) Charles Physician) IG% 0.20 % Normal (applies to [facility] non-numeric (Ammir results) Charles Physician) ID Date Data Source [id number] 07/31/2017 12:00:00 AM EDT [facility] (Ammir Charles Physician) Name Value Range Interpretation Description Data Sup porting Code Source(s) Document(s ) GLUCOSE 75 mg/dL Normal (applies [facility] NONFASTING,SERUM to non-numeric (Ammir results) Charles Physician) SODIUM, SERUM 140 Normal (applies [facility] mEq/L to non-numeric (Ammir results) Charles Physician) POTASSIUM, SERUM 4.1 Normal (applies [facility] mEq/L to non-numeric (Ammir results) Charles Physician) CHLORIDE, SERUM 107 Normal (applies [facility] mEq/L to non-numeric (Ammir results) Charles Physician) Carbon dioxide 24 mEq/L Normal (applies [facility] [VFr/PPres] in to non-numeric (Ammir Gas delivery results) Charles system Physician) Anion gap in 13.1 Normal (applies [facility] Body fluid mEq/L to non-numeric (Ammir results) Charles Physician) BLOOD UREA 13 mg/dL Normal (applies [facility] NITROGEN to non-numeric (Ammir results) [facility] Physician) CREATININE, 0.80 Normal (applies [facility] SERUM mg/dL to non-numeric (Ammir results) Charles Physician) CALCIUM, SERUM 8.8 Normal (applies [facility] mg/dL to non-numeric (Ammir results) [facility] Physician) TOTAL PROTEIN 6.9 g/dL Normal (applies [facility] to non-numeric (Ammir results) [facility] Physician) Microalbumin 3.7 g/dL Normal (applies [facility] [Mass/time] in to non-numeric (Ammir Urine collected results) Charles for unspecified Physician) duration Globulin 3.2 gldl Normal (applies [facility] [Mass/time] in to non-numeric (Ammir 24 hour Urine results) [facility] Physician) A/G RATIO 1.16 Normal (applies [facility] g/dl to non-numeric (Ammir results) [facility] Physician) BILIRUBIN, TOTAL 0.3 Normal (applies [facility] mg/dL to non-numeric (Ammir results) [facility] Physician) ALKALINE 64 U/L Normal (applies [facility] PHOSPHATASE, ALP to non-numeric (Ammir results) [facility] Physician) ALT (SGPT) 15 U/L Normal (applies [facility] to non-numeric (Ammir results) [facility] Physician) AST 23 U/L Normal (applies [facility] to non-numeric (Ammir results) [facility] Physician) EGFR NON AFR 82 Above high normal [facility] SUDANESE mL/min/1 (Ammir .73m2 Charles Physician) EGFR AFR 99 Above high normal [facility] SUDANESE mL/min/1 (Ammir .73m2 Charles Physician) ID Date Data Source [id number] 07/31/2017 12:00:00 AM EDT [facility] (Ammir Charles Physician) Name Value Range Interpretation Code Description Data Faiza rce(s) Supporting Document(s ) DIHYDROTES 16 Normal (applies to [facility] (Am teetee TOSTERON,L non-numeric results) Charles [facility] Physician) ID Date Data Source [id number] 07/31/2017 12:00:00 AM EDT [facility] (Ammir Charles Physician) Name Value Range Interpretation Code Description Data Faiza rce(s) Supporting Document(s ) ESTROGEN, 138.4 Normal (applies to [facility] (Amm ir TOTAL, non-numeric Charles SERUM results) Physician) ID Date Data Source [id number] 07/31/2017 12:00:00 AM EDT [facility] (Ammir Charles Physician) Name Value Range Interpretation Description Data Sup porting Code Source(s) Document(s ) BENZODIAZEPINE NEGATIVE Normal (applies [facility] to non-numeric (Ammir results) Charles Physician) Barbiturates NEGATIVE Normal (applies [facility] [Mass/volume] in to non-numeric (Ammir Serum or Plasma results) Charles Physician) Methadone NEGATIVE Normal (applies [facility] [Mass/volume] in to non-numeric (Ammir Blood results) Charles Physician) Opiates NEGATIVE Normal (applies [facility] [Presence] in to non-numeric (Ammir Unknown substance results) Charles by Confirmatory Physician) method PCP NEGATIVE Normal (applies [facility] (PHENCYCLIDINE) to non-numeric (Ammir results) Charles Physician) Cocaine NEGATIVE Normal (applies [facility] [Presence] in to non-numeric (Ammir Unknown substance results) Charles by Confirmatory Physician) method Cannabinoids NEGATIVE Normal (applies [facility] [Presence] in to non-numeric (Ammir Unknown substance results) Charles by Confirmatory Physician) method Propoxyphene NEGATIVE Normal (applies [facility] [Presence] in to non-numeric (Ammir Meconium by results) Charles Screen method Physician) Ethanol NEGATIVE Normal (applies [facility] [Mass/volume] in to non-numeric (Ammir Urine collected results) Charles for unspecified Physician) duration CREATININE,URINE 119.4 Above high [facility] mg/dL normal (Ammir Chalres Physician) LH(LUTEINIZING 3 mIU/mL Above high [facility] HORMONE) normal (Ammir Charles Physician) ID Date Data Source [id number] 07/31/2017 12:00:00 AM EDT [facility] (Ammir Charles Physician) Name Value Range Interpretation Code Description Data Faiza rce(s) Supporting Document(s ) BETA-hCG <2.0 Normal (applies to [facility] (Amm ir non-numeric results) Charles Physician) ID Date Data Source [id number] 07/31/2017 12:00:00 AM EDT [facility] (Ammir Charles Physician) Name Value Range Interpretation Description Data Sup porting Code Source(s) Document(s ) Progesterone 0.27 Above high normal [facility] [Mass/volume] in ng/mL (Ammir Saliva (oral Charles fluid) Physician) ID Date Data Source [id number] 07/31/2017 12:00:00 AM EDT [facility] (Ammir Charles Physician) Name Value Range Interpretation Code Description Data Faiza rce(s) Supporting Document(s ) ESTRADIOL 45 pg/mL Above high normal [facility] (Ammi r -E2 Charles Physician) ID Date Data Source [id number] 07/31/2017 12:00:00 AM EDT [facility] (Ammir Charles Physician) Name Value Range Interpretation Description Data Sup porting Code Source(s) Document(s ) Prolactin 5.3 ng/mL Normal (applies to [facility] (Amm ir [Mass/volume] non-numeric Charles in Serum or results) Physician) Plasma by 3rd IS ID Date Data Source [id number] 07/31/2017 12:00:00 AM EDT [facility] (Ammir Charles Physician) Name Value Range Interpretation Code Description Data Faiza rce(s) Supporting Document(s ) DHEA-SULF 48.1 ug/dl Normal (applies to [facility] (Am teetee ATE non-numeric Charles results) Physician) ID Date Data Source [id number] 07/31/2017 12:00:00 AM EDT [facility] (Ammir Charles Physician) Name Value Range Interpretation Description Data Sup porting Code Source(s) Document(s ) PTH, INTACT 68.1 pg/mL Normal (applies to [facility] ( Ammir non-numeric Charles results) Physician) ID Date Data Source [id number] 07/31/2017 12:00:00 AM EDT [facility] (Ammir Charles Physician) Name Value Range Interpretation Description Data Sup porting Code Source(s) Document(s ) EGG WHITE 0.12 kU/L Above high normal [facility] (Ammi r (F1) IGE Charles Physician) MILK (F2) 0.16 kU/L Above high normal [facility] (Ammi r IGE Charles Physician) CODFISH (F3) <0.10 Normal (applies to [facility] ( Ammir IGE non-numeric Charles results) Physician) WHEAT (F4) <0.10 Normal (applies to [facility] (Am teetee IGE non-numeric Charles results) Physician) MAIZE / CORN <0.10 Normal (applies to [facility] ( Ammir (F8) IGE non-numeric Charles results) Physician) SESAME SEED <0.10 Normal (applies to [facility] (A mmir (F10) IGE non-numeric Charles results) Physician) PEANUT (F13) <0.10 Normal (applies to [facility] ( Ammir IGE non-numeric Charles results) Physician) SOYBEAN <0.10 Normal (applies to [facility] (Amm ir (F14) IGE non-numeric Charles results) Physician) SHRIMP (F24) <0.10 Normal (applies to [facility] ( Ammir IGE non-numeric Charles results) Physician) WALNUT <0.10 Normal (applies to [facility] (Amm ir (F256) IGE non-numeric Charles results) Physician) SCALLOP <0.10 Normal (applies to [facility] (Amm ir (F338) IGE non-numeric Charles results) Physician) SALMON (F41) <0.10 Normal (applies to [facility] ( Ammir IGE non-numeric Charles results) Physician) TUNA (F40) <0.10 Normal (applies to [facility] (Am teetee IGE non-numeric Charles results) Physician) HAZELNUT(F17 <0.10 Normal (applies to [facility] ( Ammir ) IGE non-numeric Charles results) Physician) CASHEW <0.10 Normal (applies to [facility] (Amm ir NUT(F202) non-numeric Charles IGE results) Physician) ALMOND <0.10 Normal (applies to [facility] (Amm ir (F20)IGE non-numeric Charles results) Physician) TOTAL IGE 133 kU/L Above high normal [facility] (Ammi r Charles Physician) ID Date Data Source [id number] 07/31/2017 12:00:00 AM EDT [facility] (Ammir Charles Physician) Name Value Range Interpretation Description Data Sup porting Code Source(s) Document(s ) FSH(FOLLICLE 6.6 Above high normal [facility] STIMULATING mIU/mL (Ammir HORMONE) Charles Physician) ID Date Data Source [id number] 07/31/2017 12:00:00 AM EDT [facility] (Ammir Charles Physician) Name Value Range Interpretation Description Data Sup porting Code Source(s) Document(s ) MULBERRY (T70) IGE <0.10 Normal (applies [facility] N to non-numeric (Ammir results) Charles Physician) OAK (T7) IGE <0.10 Normal (applies [facility] to non-numeric (Ammir results) Charles Physician) BERMUDA GRASS (G2) <0.10 Normal (applies [facility] N IGE to non-numeric (Ammir results) Charles Physician) RADU GRASS (G6) <0.10 Normal (applies [facility] N IGE to non-numeric (Ammir results) Charles Physician) COMMON RAGWEED WEED <0.10 Normal (applies [facility] EN to non-numeric (Ammir results) Charles Physician) MUGWORT (W6) IGE <0.10 Normal (applies [facility] to non-numeric (Ammir results) Charles Physician) ROUGH PIGWEED (W14) <0.10 Normal (applies [facility] EN IGE to non-numeric (Ammir results) Charles Physician) DERMATOPHAGOIDES <0.10 Normal (applies [facility] FARINAE to non-numeric (Ammir results) Charles Physician) CAT EPITHEL. & <0.10 Normal (applies [facility] DANDER IGE to non-numeric (Ammir results) Charles Physician) DOG DANDER (E5) IGE <0.10 Normal (applies [facility] EN to non-numeric (Ammir results) Charles Physician) COCKROACH (I6) IGE <0.10 Normal (applies [facility] N to non-numeric (Ammir results) Charles Physician) PENICILLIUM NOTATUM <0.10 Normal (applies [facility] EN (M1) to non-numeric (Ammir results) Charles Physician) CLADOSPORIUM <0.10 Normal (applies [facility] HERBARUM(M2) IGE to non-numeric (Ammir results) Charles Physician) ASPERGILLUS <0.10 Normal (applies [facility] FUMIGATUS (M3 to non-numeric (Ammir results) Charles Physician) ALTERNARIA <0.10 Normal (applies [facility] ALTERNATA (M6) to non-numeric (Ammir results) Charles Physician) MAPLE (BOX <0.10 Normal (applies [facility] ELEDER)(T1)IGE to non-numeric (Ammir results) Charles Physician) BIRCH (T3) IGE <0.10 Normal (applies [facility] to non-numeric (Ammir results) Charles Physician) M[place]AIN CEDAR (T6) <0.10 Normal (applies [facility] EN IGE to non-numeric (Ammir results) Charles Physician) ELM (T8) IGE <0.10 Normal (applies [facility] to non-numeric (Ammir results) Charles Physician) WALNUT TREE (T10) <0.10 Normal (applies [facility] IGE to non-numeric (Ammir results) Charles Physician) SYCAMORE (T11) IGE <0.10 Normal (applies MED[facility] N to non-numeric (Ammir results) Charles Physician) [place] (T14) <0.10 Normal (applies [facility] IGE to non-numeric (Ammir results) Charles Physician) WHITE LUIS (T15) IGE <0.10 Normal (applies [facility] EN to non-numeric (Ammir results) Charles Physician) D. PTERONYS <0.10 Normal (applies [facility] SINUS(D1) IGE to non-numeric (Ammir results) Charles Physician) SHEEP SORREL (W18) <0.10 Normal (applies [facility] N IGE to non-numeric (Ammir results) [place] Physician) MOUSE UR PROT (E72) <0.10 Normal (applies [facility] EN IGE to non-numeric (Ammir results) Charles Physician) ID Date Data Source [id number] 07/10/2017 12:00:00 AM EDT [facility] (Ammir Charles Physician) Name Value Range Interpretation Description Data Sup porting Code Source(s) Document(s ) WBC 7.5 Normal (applies to [facility] 10(3)/uL non-numeric (Ammir results) Charles Physician) RBC 4.5 Normal (applies to [facility] 10(6)/uL non-numeric (Ammir results) Charles Physician) Hemoglobin 11.3 g/dL Below low normal [facility] [Mass/volume] (Ammir in Mixed Charles venous blood Physician) by Oximetry Hematocrit 36.3 % Normal (applies to [facility] [Pure volume non-numeric (Ammir fraction] of results) Charles Blood by Physician) Automated count MCV 81.6 fL Normal (applies to [facility] non-numeric (Ammir results) Charles Physician) MCH 25 pg Normal (applies to [facility] non-numeric (Ammir results) Charles Physician) MCHC 31 g/dL Normal (applies to [facility] non-numeric (Ammir results) Charles Physician) RDWSD 44.2 fL Normal (applies to [facility] non-numeric (Ammir results) Charles Physician) RDWCV 15.0 % Normal (applies to [facility] non-numeric (Ammir results) Charles Physician) PLT 312 Normal (applies to [facility] 10(3)/uL non-numeric (Ammir results) Charles Physician) MPV 10.6 fL Normal (applies to [facility] non-numeric (Ammir results) Charles Physician) NE# 3.97 Normal (applies to [facility] 10(3)/uL non-numeric (Ammir results) Charles Physician) LY# 2.96 Normal (applies to [facility] 10(3)/uL non-numeric (Ammir results) Charles Physician) MO# 0.39 Normal (applies to [facility] 10(3)/uL non-numeric (Ammir results) Charles Physician) EO# 0.08 Normal (applies to [facility] 10(3)/uL non-numeric (Ammir results) Charles Physician) IG# 0.02 Normal (applies to [facility] 10(3)/uL non-numeric (Ammir results) Charles Physician) NE% 53.00 % Normal (applies to [facility] non-numeric (Ammir results) Charles Physician) LY% 40 % Normal (applies to [facility] non-numeric (Ammir results) Charles Physician) MO% 5.2 % Normal (applies to [facility] non-numeric (Ammir results) Charles Physician) EO% 1.1 % Normal (applies to [facility] non-numeric (Ammir results) Charles Physician) BA% 0.8 % Normal (applies to [facility] non-numeric (Ammir results) Charles Physician) IG% 0.30 % Normal (applies to [facility] non-numeric (Ammir results) Charles Physician) ID Date Data Source [id number] 07/10/2017 12:00:00 AM EDT [facility] (Ammir Charles Physician) Name Value Range Interpretation Description Data Sup porting Code Source(s) Document(s ) WBC 7.5 Normal (applies to [facility] 10(3)/uL non-numeric (Ammir results) Charles Physician) RBC 4.5 Normal (applies to [facility] 10(6)/uL non-numeric (Ammir results) Charles Physician) Hemoglobin 11.3 g/dL Below low normal [facility] [Mass/volume] (Ammir in Mixed Charles venous blood Physician) by Oximetry Hematocrit 36.3 % Normal (applies to [facility] [Pure volume non-numeric (Ammir fraction] of results) Charles Blood by Physician) Automated count MCV 81.6 fL Normal (applies to [facility] non-numeric (Ammir results) Charles Physician) MCH 25 pg Normal (applies to [facility] non-numeric (Ammir results) Charles Physician) MCHC 31 g/dL Normal (applies to [facility] non-numeric (Ammir results) Charles Physician) RDWSD 44.2 fL Normal (applies to [facility] non-numeric (Ammir results) Charles Physician) RDWCV 15.0 % Normal (applies to [facility] non-numeric (Ammir results) Charles Physician) PLT 312 Normal (applies to [facility] 10(3)/uL non-numeric (Ammir results) Charles Physician) MPV 10.6 fL Normal (applies to [facility] non-numeric (Ammir results) Charles Physician) NE# 3.97 Normal (applies to [facility] 10(3)/uL non-numeric (Ammir results) Charles Physician) LY# 2.96 Normal (applies to [facility] 10(3)/uL non-numeric (Ammir results) Charles Physician) MO# 0.39 Normal (applies to [facility] 10(3)/uL non-numeric (Ammir results) Charles Physician) EO# 0.08 Normal (applies to [facility] 10(3)/uL non-numeric (Ammir results) Charles Physician) IG# 0.02 Normal (applies to [facility] 10(3)/uL non-numeric (Ammir results) Charles Physician) NE% 53.00 % Normal (applies to [facility] non-numeric (Ammir results) Charles Physician) LY% 40 % Normal (applies to [facility] non-numeric (Ammir results) Charles Physician) MO% 5.2 % Normal (applies to [facility] non-numeric (Ammir results) Charles Physician) EO% 1.1 % Normal (applies to [facility] non-numeric (Ammir results) Charles Physician) BA% 0.8 % Normal (applies to [facility] non-numeric (Ammir results) [place] Physician) IG% 0.30 % Normal (applies to [facility] non-numeric (Ammir results) Charles Physician) ID Date Data Source [id number] 07/10/2017 12:00:00 AM EDT [facility] (Ammir Charles Physician) Name Value Range Interpretation Description Data Sup porting Code Source(s) Document(s ) WBC 7.5 Normal (applies to [facility] 10(3)/uL non-numeric (Ammir results) Charles Physician) RBC 4.5 Normal (applies to [facility] 10(6)/uL non-numeric (Ammir results) Charles Physician) Hemoglobin 11.3 g/dL Below low normal [facility] [Mass/volume] (Ammir in Mixed Charles venous blood Physician) by Oximetry Hematocrit 36.3 % Normal (applies to [facility] [Pure volume non-numeric (Ammir fraction] of results) Charles Blood by Physician) Automated count MCV 81.6 fL Normal (applies to [facility] non-numeric (Ammir results) Charles Physician) MCH 25 pg Normal (applies to [facility] non-numeric (Ammir results) Charles Physician) MCHC 31 g/dL Normal (applies to [facility] non-numeric (Ammir results) Charles Physician) RDWSD 44.2 fL Normal (applies to [facility] non-numeric (Ammir results) Charles Physician) RDWCV 15.0 % Normal (applies to [facility] non-numeric (Ammir results) Charles Physician) PLT 312 Normal (applies to [facility] 10(3)/uL non-numeric (Ammir results) Charles Physician) MPV 10.6 fL Normal (applies to [facility] non-numeric (Ammir results) Charles Physician) NE# 3.97 Normal (applies to [facility] 10(3)/uL non-numeric (Ammir results) Charles Physician) LY# 2.96 Normal (applies to [facility] 10(3)/uL non-numeric (Ammir results) Charles Physician) MO# 0.39 Normal (applies to [facility] 10(3)/uL non-numeric (Ammir results) Charles Physician) EO# 0.08 Normal (applies to [facility] 10(3)/uL non-numeric (Ammir results) Charles Physician) IG# 0.02 Normal (applies to [facility] 10(3)/uL non-numeric (Ammir results) Charles Physician) NE% 53.00 % Normal (applies to [facility] non-numeric (Ammir results) Charles Physician) LY% 40 % Normal (applies to [facility] non-numeric (Ammir results) Charles Physician) MO% 5.2 % Normal (applies to [facility] non-numeric (Ammir results) Charles Physician) EO% 1.1 % Normal (applies to [facility] non-numeric (Ammir results) Charles Physician) BA% 0.8 % Normal (applies to [facility] non-numeric (Ammir results) Charles Physician) IG% 0.30 % Normal (applies to [facility] non-numeric (Ammir results) [facility] Physician) ID Date Data Source [id number] 07/10/2017 12:00:00 AM EDT [facility] (Ammir [facility] Physician) Name Value Range Interpretation Description Data Sup porting Code Source(s) Document(s ) WBC 7.5 Normal (applies to [facility] 10(3)/uL non-numeric (Ammir results) [facility] Physician) RBC 4.5 Normal (applies to [facility] 10(6)/uL non-numeric (Ammir results) [facility] Physician) Hemoglobin 11.3 g/dL Below low normal [facility] [Mass/volume] (Ammir in Mixed [facility] venous blood Physician) by Oximetry Hematocrit 36.3 % Normal (applies to [facility] [Pure volume non-numeric (Ammir fraction] of results) [facility] Blood by Physician) Automated count MCV 81.6 fL Normal (applies to [facility] non-numeric (Ammir results) [facility] Physician) MCH 25 pg Normal (applies to [facility] non-numeric (Ammir results) [facility] Physician) MCHC 31 g/dL Normal (applies to [facility] non-numeric (Ammir results) [facility] Physician) RDWSD 44.2 fL Normal (applies to [facility] non-numeric (Ammir results) [facility] Physician) RDWCV 15.0 % Normal (applies to [facility] non-numeric (Ammir results) [facility] Physician) PLT 312 Normal (applies to [facility] 10(3)/uL non-numeric (Ammir results) [facility] Physician) MPV 10.6 fL Normal (applies to [facility] non-numeric (Ammir results) [facility] Physician) NE# 3.97 Normal (applies to [facility] 10(3)/uL non-numeric (Ammir results) [facility] Physician) LY# 2.96 Normal (applies to [facility] 10(3)/uL non-numeric (Ammir results) [facility] Physician) MO# 0.39 Normal (applies to [facility] 10(3)/uL non-numeric (Ammir results) [facility] Physician) EO# 0.08 Normal (applies to [facility] 10(3)/uL non-numeric (Ammir results) [facility] Physician) IG# 0.02 Normal (applies to [facility] 10(3)/uL non-numeric (Ammir results) [facility] Physician) NE% 53.00 % Normal (applies to [facility] non-numeric (Ammir results) [facility] Physician) LY% 40 % Normal (applies to [facility] non-numeric (Ammir results) [facility] Physician) MO% 5.2 % Normal (applies to [facility] non-numeric (Ammir results) [facility] Physician) EO% 1.1 % Normal (applies to [facility] non-numeric (Ammir results) [facility] Physician) BA% 0.8 % Normal (applies to [facility] non-numeric (Ammir results) [facility] Physician) IG% 0.30 % Normal (applies to [facility] non-numeric (Ammir results) [facility] Physician) ID Date Data Source [id number] 07/10/2017 12:00:00 AM EDT [facility] (Ammir [facility] Physician) Name Value Range Interpretation Description Data Sup porting Code Source(s) Document(s ) WBC 7.5 Normal (applies to [facility] 10(3)/uL non-numeric (Ammir results) [facility] Physician) RBC 4.5 Normal (applies to [facility] 10(6)/uL non-numeric (Ammir results) [facility] Physician) Hemoglobin 11.3 g/dL Below low normal [facility] [Mass/volume] (Ammir in Mixed [facility] venous blood Physician) by Oximetry Hematocrit 36.3 % Normal (applies to [facility] [Pure volume non-numeric (Ammir fraction] of results) [facility] Blood by Physician) Automated count MCV 81.6 fL Normal (applies to [facility] non-numeric (Ammir results) Charles Physician) MCH 25 pg Normal (applies to [facility] non-numeric (Ammir results) Charles Physician) MCHC 31 g/dL Normal (applies to [facility] non-numeric (Ammir results) Charles Physician) RDWSD 44.2 fL Normal (applies to [facility] non-numeric (Ammir results) Charles Physician) RDWCV 15.0 % Normal (applies to [facility] non-numeric (Ammir results) Charles Physician) PLT 312 Normal (applies to [facility] 10(3)/uL non-numeric (Ammir results) Charles Physician) MPV 10.6 fL Normal (applies to [facility] non-numeric (Ammir results) [facility] Physician) NE# 3.97 Normal (applies to [facility] 10(3)/uL non-numeric (Ammir results) [facility] Physician) LY# 2.96 Normal (applies to [facility] 10(3)/uL non-numeric (Ammir results) Charles Physician) MO# 0.39 Normal (applies to [facility] 10(3)/uL non-numeric (Ammir results) [facility] Physician) EO# 0.08 Normal (applies to [facility] 10(3)/uL non-numeric (Ammir results) [facility] Physician) IG# 0.02 Normal (applies to [facility] 10(3)/uL non-numeric (Ammir results) [facility] Physician) NE% 53.00 % Normal (applies to [facility] non-numeric (Ammir results) [facility] Physician) LY% 40 % Normal (applies to [facility] non-numeric (Ammir results) [facility] Physician) MO% 5.2 % Normal (applies to [facility] non-numeric (Ammir results) [facility] Physician) EO% 1.1 % Normal (applies to [facility] non-numeric (Ammir results) [facility] Physician) BA% 0.8 % Normal (applies to [facility] non-numeric (Ammir results) [facility] Physician) IG% 0.30 % Normal (applies to [facility] non-numeric (Ammir results) Charles Physician) ID Date Data Source [id number] 03/23/2017 12:00:00 AM EST [facility] (Ammir [facility] Physician) Name Value Range Interpretation Description Data Sup porting Code Source(s) Document(s ) VITAMIN D 52.2 Normal (applies to [facility] (Amm ir 1.25 pg/mL non-numeric Charles results) Physician) ID Date Data Source [id number] 03/23/2017 12:00:00 AM EST [facility] (Ammir Chalres Physician) Name Value Range Interpretation Description Data Sup porting Code Source(s) Document(s ) FOLATE SERUM 10 ng/mL Above high normal [facility] (A mmir Cahrles Physician) VITAMIN B12 815 pg/mL Normal (applies to [facility] (A mmir non-numeric Charles results) Physician) ID Date Data Source [id number] 03/23/2017 12:00:00 AM EST [facility] (Ammir [facility] Physician) Name Value Range Interpretation Description Data Sup porting Code Source(s) Document(s ) IRON, TOTAL 22 ug/dL Below low normal [facility] (Ammir [facility] Physician) Transferrin 310 mg/dL Normal (applies [facility] [Mass/time] in to non-numeric (Ammir 24 hour Urine results) Charles Physician) TIBC 434.7 Normal (applies [facility] ug/dL to non-numeric (Ammir results) [facility] Physician) UIBC 412.7 Above high normal [facility] ug/dL (Ammir Charles Physician) %SATURATION 5.1 % Below low normal [facility] (Ammir Charles Physician) ID Date Data Source [id number] 03/23/2017 12:00:00 AM EST [facility] (Ammir Charles Physician) Name Value Range Interpretation Description Data Sup porting Code Source(s) Document(s ) WBC 7.7 Normal (applies to [facility] 10(3)/uL non-numeric (Ammir results) [facility] Physician) RBC 4.1 Normal (applies to [facility] 10(6)/uL non-numeric (Ammir results) Charles Physician) Hemoglobin 10.2 g/dL Below low normal [facility] [Mass/volume] (Ammir in Mixed Charles venous blood Physician) by Oximetry Hematocrit 33.1 % Below low normal [facility] [Pure volume (Ammir fraction] of [facility] Blood by Physician) Automated count MCV 81.3 fL Normal (applies to [facility] non-numeric (Ammir results) Charles Physician) MCH 25 pg Normal (applies to [facility] non-numeric (Ammir results) Charles Physician) MCHC 31 g/dL Normal (applies to [facility] non-numeric (Ammir results) Charles Physician) RDWSD 48.2 fL Normal (applies to [facility] non-numeric (Ammir results) Charles Physician) RDWCV 16.5 % Above high normal [facility] (Ammir Charles Physician) PLT 334 Normal (applies to [facility] 10(3)/uL non-numeric (Ammir results) Charles Physician) MPV 11.2 fL Normal (applies to [facility] non-numeric (Ammir results) Charles Physician) NE# 3.69 Normal (applies to [facility] 10(3)/uL non-numeric (Ammir results) Charles Physician) LY# 3.50 Normal (applies to [facility] 10(3)/uL non-numeric (Ammir results) Charles Physician) MO# 0.39 Normal (applies to [facility] 10(3)/uL non-numeric (Ammir results) [facility] Physician) EO# 0.08 Normal (applies to [facility] 10(3)/uL non-numeric (Ammir results) Charles Physician) IG# 0.01 Normal (applies to [facility] 10(3)/uL non-numeric (Ammir results) Charles Physician) NE% 47.80 % Normal (applies to [facility] non-numeric (Ammir results) Charles Physician) LY% 45 % Normal (applies to [facility] non-numeric (Ammir results) Charles Physician) MO% 5.0 % Normal (applies to [facility] non-numeric (Ammir results) Charles Physician) EO% 1.0 % Normal (applies to [facility] non-numeric (Ammir results) Charles Physician) BA% 0.8 % Normal (applies to [facility] non-numeric (Ammir results) Charles Physician) IG% 0.10 % Normal (applies to [facility] non-numeric (Ammir results) [facility] Physician) ID Date Data Source [id number] 03/23/2017 12:00:00 AM EST [facility] (Ammir [facility] Physician) Name Value Range Interpretation Description Data Sup porting Code Source(s) Document(s ) Ferritin 11.1 Normal (applies to [facility] (Amm ir [Interpretat ng/mL non-numeric Charles ion] in results) Physician) Blood ID Date Data Source [id number] 03/23/2017 12:00:00 AM EST [facility] (Ammir Charles Physician) Name Value Range Interpretation Description Data Sup porting Code Source(s) Document(s ) T4 FREE, 1.27 Normal (applies to [facility] THYROXINE ng/dL non-numeric (Ammir results) Charles Physician) TSH,3RD 1.71 Normal (applies to [facility] GENERATION uIU/mL non-numeric (Ammir results) Charles Physician) ID Date Data Source [id number] 03/23/2017 12:00:00 AM EST [facility] (Ammir Charles Physician) Name Value Range Interpretation Description Data Sup porting Code Source(s) Document(s ) GLUCOSE 79 mg/dL Normal (applies [facility] NONFASTING,SERUM to non-numeric (Ammir results) Charles Physician) SODIUM, SERUM 137 Normal (applies [facility] mEq/L to non-numeric (Ammir results) Charles Physician) POTASSIUM, SERUM 4.2 Normal (applies [facility] mEq/L to non-numeric (Ammir results) Charles Physician) CHLORIDE, SERUM 104 Normal (applies [facility] mEq/L to non-numeric (Ammir results) Charles Physician) Carbon dioxide 25 mEq/L Normal (applies [facility] [VFr/PPres] in to non-numeric (Ammir Gas delivery results) Charles system Physician) Anion gap in 12.2 Normal (applies [facility] Body fluid mEq/L to non-numeric (Ammir results) Charles Physician) BLOOD UREA 12 mg/dL Normal (applies [facility] NITROGEN to non-numeric (Ammir results) Charles Physician) CREATININE, 0.80 Normal (applies [facility] SERUM mg/dL to non-numeric (Ammir results) Charles Physician) CALCIUM, SERUM 9.5 Normal (applies [facility] mg/dL to non-numeric (Ammir results) Charles Physician) TOTAL PROTEIN 7.2 g/dL Normal (applies [facility] to non-numeric (Ammir results) Charles Physician) Microalbumin 4.1 g/dL Normal (applies [facility] [Mass/time] in to non-numeric (Ammir Urine collected results) Charles for unspecified Physician) duration Globulin 3.1 gldl Normal (applies [facility] [Mass/time] in to non-numeric (Ammir 24 hour Urine results) Charles Physician) A/G RATIO 1.32 Normal (applies [facility] g/dl to non-numeric (Ammir results) Charles Physician) BILIRUBIN, TOTAL 0.3 Normal (applies [facility] mg/dL to non-numeric (Ammir results) Charles Physician) ALKALINE 72 U/L Normal (applies [facility] PHOSPHATASE, ALP to non-numeric (Ammir results) Charles Physician) ALT (SGPT) 21 U/L Normal (applies [facility] to non-numeric (Ammir results) Charles Physician) AST 22 U/L Normal (applies [facility] to non-numeric (Ammir results) [facility] Physician) EGFR NON AFR 82 Above high normal [facility] SUDANESE mL/min/1 (Ammir .73m2 Charles Physician) EGFR AFR 99 Above high normal [facility] SUDANESE mL/min/1 (Ammir .73m2 Charles Physician) ID Date Data Source [id number] 03/23/2017 12:00:00 AM EST [facility] (Ammir Charles Physician) Name Value Range Interpretation Description Data Sup porting Code Source(s) Document(s ) Cholesterol 149 Normal (applies [facility] [Moles/volume] mg/dL to non-numeric (Ammir in Pericardial results) Charles fluid Physician) LDL CALCULATION 79.6 Normal (applies [facility] mg/dL to non-numeric (Ammir results) Charles Physician) CHOL/HDL RATIO 2.53 Normal (applies [facility] ratio to non-numeric (Ammir results) Charles Physician) HDL CHOLESTEROL 59 mg/dL Above high normal [facility] (Ammir Charles Physician) VLDL CALCULATION 10.4 Normal (applies [facility] mg/dl to non-numeric (Ammir results) Charles Physician) TRIGLYCERIDES 52 mg/dL Normal (applies [facility] to non-numeric (Ammir results) Charles Physician) ID Date Data Source [id number] 03/23/2017 12:00:00 AM EST [facility] (Ammir Charles Physician) Name Value Range Interpretation Description Data Sup porting Code Source(s) Document(s ) VITAMIN D 52.2 Normal (applies to [facility] (Amm ir 1.25 pg/mL non-numeric Charles results) Physician) ID Date Data Source [id number] 03/23/2017 12:00:00 AM EST [facility] (Ammir Charles Physician) Name Value Range Interpretation Description Data Sup porting Code Source(s) Document(s ) FOLATE SERUM 10 ng/mL Above high normal [facility] (A mmir Charles Physician) VITAMIN B12 815 pg/mL Normal (applies to [facility] (A mmir non-numeric Charles results) Physician) ID Date Data Source [id number] 03/23/2017 12:00:00 AM EST [facility] (Ammir Charles Physician) Name Value Range Interpretation Description Data Sup porting Code Source(s) Document(s ) IRON, TOTAL 22 ug/dL Below low normal [facility] (Ammir Charles Physician) Transferrin 310 mg/dL Normal (applies [facility] [Mass/time] in to non-numeric (Ammir 24 hour Urine results) Charles Physician) TIBC 434.7 Normal (applies [facility] ug/dL to non-numeric (Ammir results) Charles Physician) UIBC 412.7 Above high normal [facility] ug/dL (Ammir Charles Physician) %SATURATION 5.1 % Below low normal [facility] (Ammir Charles Physician) ID Date Data Source [id number] 03/23/2017 12:00:00 AM EST [facility] (Ammir Charles Physician) Name Value Range Interpretation Description Data Sup porting Code Source(s) Document(s ) RBC 4.1 Normal (applies to [facility] 10(6)/uL non-numeric (Ammir results) [facility] Physician) WBC 7.7 Normal (applies to [facility] 10(3)/uL non-numeric (Ammir results) [facility] Physician) Hemoglobin 10.2 g/dL Below low normal [facility] [Mass/volume] (Ammir in Mixed Charles venous blood Physician) by Oximetry Hematocrit 33.1 % Below low normal [facility] [Pure volume (Ammir fraction] of Charles Blood by Physician) Automated count MCV 81.3 fL Normal (applies to [facility] non-numeric (Ammir results) [facility] Physician) MCH 25 pg Normal (applies to [facility] non-numeric (Ammir results) Charles Physician) MCHC 31 g/dL Normal (applies to [facility] non-numeric (Ammir results) Charles Physician) RDWSD 48.2 fL Normal (applies to [facility] non-numeric (Ammir results) Charles Physician) RDWCV 16.5 % Above high normal [facility] (Ammir Charles Physician) PLT 334 Normal (applies to [facility] 10(3)/uL non-numeric (Ammir results) Charles Physician) MPV 11.2 fL Normal (applies to [facility] non-numeric (Ammir results) [facility] Physician) NE# 3.69 Normal (applies to [facility] 10(3)/uL non-numeric (Ammir results) Charles Physician) LY# 3.50 Normal (applies to [facility] 10(3)/uL non-numeric (Ammir results) Charles Physician) MO# 0.39 Normal (applies to [facility] 10(3)/uL non-numeric (Ammir results) [facility] Physician) EO# 0.08 Normal (applies to [facility] 10(3)/uL non-numeric (Ammir results) Charles Physician) IG# 0.01 Normal (applies to [facility] 10(3)/uL non-numeric (Ammir results) Charles Physician) NE% 47.80 % Normal (applies to [facility] non-numeric (Ammir results) Charles Physician) LY% 45 % Normal (applies to [facility] non-numeric (Ammir results) Charles Physician) MO% 5.0 % Normal (applies to [facility] non-numeric (Ammir results) Charles Physician) EO% 1.0 % Normal (applies to [facility] non-numeric (Ammir results) Charles Physician) BA% 0.8 % Normal (applies to [facility] non-numeric (Ammir results) Charles Physician) IG% 0.10 % Normal (applies to [facility] non-numeric (Ammir results) Charles Physician) ID Date Data Source [id number] 03/23/2017 12:00:00 AM EST [facility] (Ammir Charles Physician) Name Value Range Interpretation Description Data Sup porting Code Source(s) Document(s ) VITAMIN D 52.2 Normal (applies to [facility] (Amm ir 1.25 pg/mL non-numeric Charles results) Physician) ID Date Data Source [id number] 03/23/2017 12:00:00 AM EST [facility] (Ammir [facility] Physician) Name Value Range Interpretation Description Data Sup porting Code Source(s) Document(s ) FOLATE SERUM 10 ng/mL Above high normal [facility] (A mmir [facility] Physician) VITAMIN B12 815 pg/mL Normal (applies to [facility] (A mmir non-numeric Charles results) Physician) ID Date Data Source [id number] 03/23/2017 12:00:00 AM EST [facility] (Ammir [facility] Physician) Name Value Range Interpretation Description Data Sup porting Code Source(s) Document(s ) IRON, TOTAL 22 ug/dL Below low normal [facility] (Ammir [facility] Physician) Transferrin 310 mg/dL Normal (applies [facility] [Mass/time] in to non-numeric (Ammir 24 hour Urine results) Charles Physician) TIBC 434.7 Normal (applies [facility] ug/dL to non-numeric (Ammir results) Charles Physician) UIBC 412.7 Above high normal [facility] ug/dL (Ammir Charles Physician) %SATURATION 5.1 % Below low normal [facility] (Ammir Charles Physician) ID Date Data Source [id number] 03/23/2017 12:00:00 AM EST [facility] (Ammir [facility] Physician) Name Value Range Interpretation Description Data Sup porting Code Source(s) Document(s ) Ferritin 11.1 Normal (applies to [facility] (Amm ir [Interpretat ng/mL non-numeric Charles ion] in results) Physician) Blood ID Date Data Source [id number] 03/23/2017 12:00:00 AM EST [facility] (Ammir Charles Physician) Name Value Range Interpretation Description Data Sup porting Code Source(s) Document(s ) T4 FREE, 1.27 Normal (applies to [facility] THYROXINE ng/dL non-numeric (Ammir results) [facility] Physician) TSH,3RD 1.71 Normal (applies to [facility] GENERATION uIU/mL non-numeric (Ammir results) [facility] Physician) ID Date Data Source [id number] 03/23/2017 12:00:00 AM EST [facility] (Ammir [facility] Physician) Name Value Range Interpretation Description Data Sup porting Code Source(s) Document(s ) GLUCOSE 79 mg/dL Normal (applies [facility] NONFASTING,SERUM to non-numeric (Ammir results) [facility] Physician) SODIUM, SERUM 137 Normal (applies [facility] mEq/L to non-numeric (Ammir results) Charles Physician) POTASSIUM, SERUM 4.2 Normal (applies [facility] mEq/L to non-numeric (Ammir results) Charles Physician) CHLORIDE, SERUM 104 Normal (applies [facility] mEq/L to non-numeric (Ammir results) Charles Physician) Carbon dioxide 25 mEq/L Normal (applies [facility] [VFr/PPres] in to non-numeric (Ammir Gas delivery results) [facility] system Physician) Anion gap in 12.2 Normal (applies [facility] Body fluid mEq/L to non-numeric (Ammir results) Charles Physician) BLOOD UREA 12 mg/dL Normal (applies [facility] NITROGEN to non-numeric (Ammir results) Charles Physician) CREATININE, 0.80 Normal (applies [facility] SERUM mg/dL to non-numeric (Ammir results) [facility] Physician) CALCIUM, SERUM 9.5 Normal (applies [facility] mg/dL to non-numeric (Ammir results) [facility] Physician) TOTAL PROTEIN 7.2 g/dL Normal (applies [facility] to non-numeric (Ammir results) [facility] Physician) Microalbumin 4.1 g/dL Normal (applies [facility] [Mass/time] in to non-numeric (Ammir Urine collected results) Charles for unspecified Physician) duration Globulin 3.1 gldl Normal (applies [facility] [Mass/time] in to non-numeric (Ammir 24 hour Urine results) Charles Physician) A/G RATIO 1.32 Normal (applies [facility] g/dl to non-numeric (Ammir results) [facility] Physician) BILIRUBIN, TOTAL 0.3 Normal (applies [facility] mg/dL to non-numeric (Ammir results) [facility] Physician) ALKALINE 72 U/L Normal (applies [facility] PHOSPHATASE, ALP to non-numeric (Ammir results) Charles Physician) ALT (SGPT) 21 U/L Normal (applies [facility] to non-numeric (Ammir results) Charles Physician) AST 22 U/L Normal (applies [facility] to non-numeric (Ammir results) Charles Physician) EGFR NON AFR 82 Above high normal [facility] SUDANESE mL/min/1 (Ammir .73m2 Charles Physician) EGFR AFR 99 Above high normal [facility] SUDANESE mL/min/1 (Ammir .73m2 Charles Physician) ID Date Data Source [id number] 03/23/2017 12:00:00 AM EST [facility] (Ammir Charles Physician) Name Value Range Interpretation Description Data Sup porting Code Source(s) Document(s ) Cholesterol 149 Normal (applies [facility] [Moles/volume] mg/dL to non-numeric (Ammir in Pericardial results) Charles fluid Physician) LDL CALCULATION 79.6 Normal (applies [facility] mg/dL to non-numeric (Ammir results) Charles Physician) CHOL/HDL RATIO 2.53 Normal (applies [facility] ratio to non-numeric (Ammir results) Charles Physician) HDL CHOLESTEROL 59 mg/dL Above high normal [facility] (Ammir Charles Physician) VLDL CALCULATION 10.4 Normal (applies [facility] mg/dl to non-numeric (Ammir results) Charles Physician) TRIGLYCERIDES 52 mg/dL Normal (applies [facility] to non-numeric (Ammir results) Charles Physician) ID Date Data Source [id number] 03/23/2017 12:00:00 AM EST [facility] (Ammir Charles Physician) Name Value Range Interpretation Description Data Sup porting Code Source(s) Document(s ) VITAMIN D 52.2 Normal (applies to [facility] (Amm ir 1.25 pg/mL non-numeric Charles results) Physician) ID Date Data Source [id number] 03/23/2017 12:00:00 AM EST [facility] (Ammir Charles Physician) Name Value Range Interpretation Description Data Sup porting Code Source(s) Document(s ) FOLATE SERUM 10 ng/mL Above high normal [facility] (A mmir Charles Physician) VITAMIN B12 815 pg/mL Normal (applies to [facility] (A mmir non-numeric Charles results) Physician) ID Date Data Source [id number] 03/23/2017 12:00:00 AM EST [facility] (Ammir Charles Physician) Name Value Range Interpretation Description Data Sup porting Code Source(s) Document(s ) IRON, TOTAL 22 ug/dL Below low normal [facility] (Ammir Charles Physician) Transferrin 310 mg/dL Normal (applies [facility] [Mass/time] in to non-numeric (Ammir 24 hour Urine results) Charles Physician) TIBC 434.7 Normal (applies [facility] ug/dL to non-numeric (Ammir results) Charles Physician) UIBC 412.7 Above high normal [facility] ug/dL (Ammir Charles Physician) %SATURATION 5.1 % Below low normal [facility] (Ammir Charles Physician) ID Date Data Source [id number] 03/23/2017 12:00:00 AM EST [facility] (Ammir Charles Physician) Name Value Range Interpretation Description Data Sup porting Code Source(s) Document(s ) WBC 7.7 Normal (applies to [facility] 10(3)/uL non-numeric (Ammir results) [facility] Physician) RBC 4.1 Normal (applies to [facility] 10(6)/uL non-numeric (Ammir results) [facility] Physician) Hemoglobin 10.2 g/dL Below low normal [facility] [Mass/volume] (Ammir in Mixed [facility] venous blood Physician) by Oximetry Hematocrit 33.1 % Below low normal [facility] [Pure volume (Ammir fraction] of [facility] Blood by Physician) Automated count MCV 81.3 fL Normal (applies to [facility] non-numeric (Ammir results) [facility] Physician) MCH 25 pg Normal (applies to [facility] non-numeric (Ammir results) Charles Physician) MCHC 31 g/dL Normal (applies to [facility] non-numeric (Ammir results) Charles Physician) RDWSD 48.2 fL Normal (applies to [facility] non-numeric (Ammir results) Charles Physician) RDWCV 16.5 % Above high normal [facility] (Ammir Charles Physician) PLT 334 Normal (applies to [facility] 10(3)/uL non-numeric (Ammir results) [facility] Physician) MPV 11.2 fL Normal (applies to [facility] non-numeric (Ammir results) [facility] Physician) NE# 3.69 Normal (applies to [facility] 10(3)/uL non-numeric (Ammir results) Charles Physician) LY# 3.50 Normal (applies to [facility] 10(3)/uL non-numeric (Ammir results) Charles Physician) MO# 0.39 Normal (applies to [facility] 10(3)/uL non-numeric (Ammir results) [facility] Physician) EO# 0.08 Normal (applies to [facility] 10(3)/uL non-numeric (Ammir results) Charles Physician) IG# 0.01 Normal (applies to [facility] 10(3)/uL non-numeric (Ammir results) [facility] Physician) NE% 47.80 % Normal (applies to [facility] non-numeric (Ammir results) Charles Physician) LY% 45 % Normal (applies to [facility] non-numeric (Ammir results) Charles Physician) MO% 5.0 % Normal (applies to [facility] non-numeric (Ammir results) Charles Physician) EO% 1.0 % Normal (applies to [facility] non-numeric (Ammir results) Charles Physician) BA% 0.8 % Normal (applies to [facility] non-numeric (Ammir results) Charles Physician) IG% 0.10 % Normal (applies to [facility] non-numeric (Ammir results) Charles Physician) ID Date Data Source [id number] 03/23/2017 12:00:00 AM EST [facility] (Ammir [facility] Physician) Name Value Range Interpretation Description Data Sup porting Code Source(s) Document(s ) Ferritin 11.1 Normal (applies to [facility] (Amm ir [Interpretat ng/mL non-numeric Charles ion] in results) Physician) Blood ID Date Data Source [id number] 03/23/2017 12:00:00 AM EST [facility] (Ammir [facility] Physician) Name Value Range Interpretation Description Data Sup porting Code Source(s) Document(s ) T4 FREE, 1.27 Normal (applies to [facility] THYROXINE ng/dL non-numeric (Ammir results) [facility] Physician) TSH,3RD 1.71 Normal (applies to [facility] GENERATION uIU/mL non-numeric (Ammir results) [facility] Physician) ID Date Data Source [id number] 03/23/2017 12:00:00 AM EST [facility] (Ammir [facility] Physician) Name Value Range Interpretation Description Data Sup porting Code Source(s) Document(s ) GLUCOSE 79 mg/dL Normal (applies [facility] NONFASTING,SERUM to non-numeric (Ammir results) [facility] Physician) SODIUM, SERUM 137 Normal (applies [facility] mEq/L to non-numeric (Ammir results) Charles Physician) POTASSIUM, SERUM 4.2 Normal (applies [facility] mEq/L to non-numeric (Ammir results) Charles Physician) CHLORIDE, SERUM 104 Normal (applies [facility] mEq/L to non-numeric (Ammir results) Charles Physician) Carbon dioxide 25 mEq/L Normal (applies [facility] [VFr/PPres] in to non-numeric (Ammir Gas delivery results) Charles system Physician) Anion gap in 12.2 Normal (applies [facility] Body fluid mEq/L to non-numeric (Ammir results) Charles Physician) BLOOD UREA 12 mg/dL Normal (applies [facility] NITROGEN to non-numeric (Ammir results) Charles Physician) CREATININE, 0.80 Normal (applies [facility] SERUM mg/dL to non-numeric (Ammir results) Charles Physician) CALCIUM, SERUM 9.5 Normal (applies [facility] mg/dL to non-numeric (Ammir results) Charles Physician) TOTAL PROTEIN 7.2 g/dL Normal (applies [facility] to non-numeric (Ammir results) Charles Physician) Microalbumin 4.1 g/dL Normal (applies [facility] [Mass/time] in to non-numeric (Ammir Urine collected results) Charles for unspecified Physician) duration Globulin 3.1 gldl Normal (applies [facility] [Mass/time] in to non-numeric (Ammir 24 hour Urine results) Charles Physician) A/G RATIO 1.32 Normal (applies [facility] g/dl to non-numeric (Ammir results) Charles Physician) BILIRUBIN, TOTAL 0.3 Normal (applies [facility] mg/dL to non-numeric (Ammir results) Charles Physician) ALKALINE 72 U/L Normal (applies [facility] PHOSPHATASE, ALP to non-numeric (Ammir results) Charles Physician) ALT (SGPT) 21 U/L Normal (applies [facility] to non-numeric (Ammir results) Charles Physician) AST 22 U/L Normal (applies [facility] to non-numeric (Ammir results) Charles Physician) EGFR NON AFR 82 Above high normal [facility] SUDANESE mL/min/1 (Ammir .73m2 Charles Physician) EGFR AFR 99 Above high normal [facility] SUDANESE mL/min/1 (Ammir .73m2 Charles Physician) ID Date Data Source [id number] 03/23/2017 12:00:00 AM EST [facility] (Ammir Charles Physician) Name Value Range Interpretation Description Data Sup porting Code Source(s) Document(s ) Cholesterol 149 Normal (applies [facility] [Moles/volume] mg/dL to non-numeric (Ammir in Pericardial results) Charles fluid Physician) LDL CALCULATION 79.6 Normal (applies [facility] mg/dL to non-numeric (Ammir results) Charles Physician) CHOL/HDL RATIO 2.53 Normal (applies [facility] ratio to non-numeric (Ammir results) Charles Physician) HDL CHOLESTEROL 59 mg/dL Above high normal [facility] (Ammir Charles Physician) VLDL CALCULATION 10.4 Normal (applies [facility] mg/dl to non-numeric (Ammir results) Charles Physician) TRIGLYCERIDES 52 mg/dL Normal (applies [facility] to non-numeric (Ammir results) Charles Physician) ID Date Data Source [id number] 03/23/2017 12:00:00 AM EST [facility] (Ammir Charles Physician) Name Value Range Interpretation Description Data Sup porting Code Source(s) Document(s ) Ferritin 11.1 Normal (applies to [facility] (Amm ir [Interpretat ng/mL non-numeric Charles ion] in results) Physician) Blood ID Date Data Source [id number] 03/23/2017 12:00:00 AM EST [facility] (Ammir Charles Physician) Name Value Range Interpretation Description Data Sup porting Code Source(s) Document(s ) T4 FREE, 1.27 Normal (applies to [facility] THYROXINE ng/dL non-numeric (Ammir results) Charles Physician) TSH,3RD 1.71 Normal (applies to [facility] GENERATION uIU/mL non-numeric (Ammir results) Charles Physician) ID Date Data Source [id number] 03/23/2017 12:00:00 AM EST [facility] (Ammir Charles Physician) Name Value Range Interpretation Description Data Sup porting Code Source(s) Document(s ) GLUCOSE 79 mg/dL Normal (applies [facility] NONFASTING,SERUM to non-numeric (Ammir results) Charles Physician) SODIUM, SERUM 137 Normal (applies [facility] mEq/L to non-numeric (Ammir results) Charles Physician) POTASSIUM, SERUM 4.2 Normal (applies [facility] mEq/L to non-numeric (Ammir results) Charles Physician) CHLORIDE, SERUM 104 Normal (applies [facility] mEq/L to non-numeric (Ammir results) Charles Physician) Carbon dioxide 25 mEq/L Normal (applies [facility] [VFr/PPres] in to non-numeric (Ammir Gas delivery results) Charles system Physician) Anion gap in 12.2 Normal (applies [facility] Body fluid mEq/L to non-numeric (Ammir results) Charles Physician) BLOOD UREA 12 mg/dL Normal (applies [facility] NITROGEN to non-numeric (Ammir results) Charles Physician) CREATININE, 0.80 Normal (applies [facility] SERUM mg/dL to non-numeric (Ammir results) Charles Physician) TOTAL PROTEIN 7.2 g/dL Normal (applies [facility] to non-numeric (Ammir results) Charles Physician) CALCIUM, SERUM 9.5 Normal (applies [facility] mg/dL to non-numeric (Ammir results) Charles Physician) Microalbumin 4.1 g/dL Normal (applies [facility] [Mass/time] in to non-numeric (Ammir Urine collected results) Charles for unspecified Physician) duration Globulin 3.1 gldl Normal (applies [facility] [Mass/time] in to non-numeric (Ammir 24 hour Urine results) Charles Physician) A/G RATIO 1.32 Normal (applies [facility] g/dl to non-numeric (Ammir results) Charles Physician) BILIRUBIN, TOTAL 0.3 Normal (applies [facility] mg/dL to non-numeric (Ammir results) Charles Physician) ALKALINE 72 U/L Normal (applies [facility] PHOSPHATASE, ALP to non-numeric (Ammir results) Charles Physician) ALT (SGPT) 21 U/L Normal (applies [facility] to non-numeric (Ammir results) Charles Physician) AST 22 U/L Normal (applies [facility] to non-numeric (Ammir results) Charles Physician) EGFR NON AFR 82 Above high normal [facility] SUDANESE mL/min/1 (Ammir .73m2 Charles Physician) EGFR AFR 99 Above high normal [facility] SUDANESE mL/min/1 (Ammir .73m2 Charles Physician) ID Date Data Source [id number] 03/23/2017 12:00:00 AM EST [facility] (Ammir Charles Physician) Name Value Range Interpretation Description Data Sup porting Code Source(s) Document(s ) Cholesterol 149 Normal (applies [facility] [Moles/volume] mg/dL to non-numeric (Ammir in Pericardial results) Charles fluid Physician) LDL CALCULATION 79.6 Normal (applies [facility] mg/dL to non-numeric (Ammir results) Charles Physician) CHOL/HDL RATIO 2.53 Normal (applies [facility] ratio to non-numeric (Ammir results) Charles Physician) HDL CHOLESTEROL 59 mg/dL Above high normal [facility] (Ammir Charles Physician) VLDL CALCULATION 10.4 Normal (applies [facility] mg/dl to non-numeric (Ammir results) Charles Physician) TRIGLYCERIDES 52 mg/dL Normal (applies [facility] to non-numeric (Ammir results) Charles Physician) ID Date Data Source [id number] 03/23/2017 12:00:00 AM EST [facility] (Ammir Charles Physician) Name Value Range Interpretation Description Data Sup porting Code Source(s) Document(s ) Cholesterol 149 Normal (applies [facility] [Moles/volume] mg/dL to non-numeric (Ammir in Pericardial results) Charles fluid Physician) LDL CALCULATION 79.6 Normal (applies [facility] mg/dL to non-numeric (Ammir results) Charles Physician) CHOL/HDL RATIO 2.53 Normal (applies [facility] ratio to non-numeric (Ammir results) Charles Physician) HDL CHOLESTEROL 59 mg/dL Above high normal [facility] (Ammir Charles Physician) VLDL CALCULATION 10.4 Normal (applies [facility] mg/dl to non-numeric (Ammir results) Charles Physician) TRIGLYCERIDES 52 mg/dL Normal (applies [facility] to non-numeric (Ammir results) Charles Physician) ID Date Data Source [id number] 03/23/2017 12:00:00 AM EST [facility] (Ammir Charles Physician) Name Value Range Interpretation Description Data Sup porting Code Source(s) Document(s ) VITAMIN D 52.2 Normal (applies to [facility] (Amm ir 1.25 pg/mL non-numeric Charles results) Physician) ID Date Data Source [id number] 03/23/2017 12:00:00 AM EST [facility] (Ammir Charles Physician) Name Value Range Interpretation Description Data Sup porting Code Source(s) Document(s ) FOLATE SERUM 10 ng/mL Above high normal [facility] (A mmir Chrales Physician) VITAMIN B12 815 pg/mL Normal (applies to [facility] (A mmir non-numeric Charles results) Physician) ID Date Data Source [id number] 03/23/2017 12:00:00 AM EST [facility] (Ammir Charles Physician) Name Value Range Interpretation Description Data Sup porting Code Source(s) Document(s ) IRON, TOTAL 22 ug/dL Below low normal [facility] (Ammir Charles Physician) Transferrin 310 mg/dL Normal (applies [facility] [Mass/time] in to non-numeric (Ammir 24 hour Urine results) Charles Physician) TIBC 434.7 Normal (applies [facility] ug/dL to non-numeric (Ammir results) Charles Physician) UIBC 412.7 Above high normal [facility] ug/dL (Ammir Charles Physician) %SATURATION 5.1 % Below low normal [facility] (Ammir Charles Physician) ID Date Data Source [id number] 03/23/2017 12:00:00 AM EST [facility] (Ammir Charles Physician) Name Value Range Interpretation Description Data Sup porting Code Source(s) Document(s ) WBC 7.7 Normal (applies to [facility] 10(3)/uL non-numeric (Ammir results) Charles Physician) RBC 4.1 Normal (applies to [facility] 10(6)/uL non-numeric (Ammir results) Charles Physician) Hemoglobin 10.2 g/dL Below low normal [facility] [Mass/volume] (Ammir in Mixed Charles venous blood Physician) by Oximetry Hematocrit 33.1 % Below low normal [facility] [Pure volume (Ammir fraction] of Charles Blood by Physician) Automated count MCV 81.3 fL Normal (applies to [facility] non-numeric (Ammir results) Charles Physician) MCH 25 pg Normal (applies to [facility] non-numeric (Ammir results) Charles Physician) MCHC 31 g/dL Normal (applies to [facility] non-numeric (Ammir results) Charles Physician) RDWSD 48.2 fL Normal (applies to [facility] non-numeric (Ammir results) Charles Physician) RDWCV 16.5 % Above high normal [facility] (Ammir Charles Physician) PLT 334 Normal (applies to [facility] 10(3)/uL non-numeric (Ammir results) Charles Physician) MPV 11.2 fL Normal (applies to [facility] non-numeric (Ammir results) Charles Physician) NE# 3.69 Normal (applies to [facility] 10(3)/uL non-numeric (Ammir results) Charles Physician) LY# 3.50 Normal (applies to [facility] 10(3)/uL non-numeric (Ammir results) Charles Physician) MO# 0.39 Normal (applies to [facility] 10(3)/uL non-numeric (Ammir results) Charles Physician) EO# 0.08 Normal (applies to [facility] 10(3)/uL non-numeric (Ammir results) Charles Physician) IG# 0.01 Normal (applies to [facility] 10(3)/uL non-numeric (Ammir results) Charles Physician) NE% 47.80 % Normal (applies to [facility] non-numeric (Ammir results) Charles Physician) LY% 45 % Normal (applies to [facility] non-numeric (Ammir results) Charles Physician) MO% 5.0 % Normal (applies to [facility] non-numeric (Ammir results) Charles Physician) EO% 1.0 % Normal (applies to [facility] non-numeric (Ammir results) Charles Physician) BA% 0.8 % Normal (applies to [facility] non-numeric (Ammir results) Charles Physician) IG% 0.10 % Normal (applies to [facility] non-numeric (Ammir results) Charles Physician) ID Date Data Source [id number] 03/23/2017 12:00:00 AM EST [facility] (Ammir Charles Physician) Name Value Range Interpretation Description Data Sup porting Code Source(s) Document(s ) Ferritin 11.1 Normal (applies to [facility] (Amm ir [Interpretat ng/mL non-numeric Charles ion] in results) Physician) Blood ID Date Data Source [id number] 03/23/2017 12:00:00 AM EST [facility] (Ammir Charles Physician) Name Value Range Interpretation Description Data Sup porting Code Source(s) Document(s ) T4 FREE, 1.27 Normal (applies to [facility] THYROXINE ng/dL non-numeric (Ammir results) Charles Physician) TSH,3RD 1.71 Normal (applies to [facility] GENERATION uIU/mL non-numeric (Ammir results) Charles Physician) ID Date Data Source [id number] 03/23/2017 12:00:00 AM EST [facility] (Ammir Charles Physician) Name Value Range Interpretation Description Data Sup porting Code Source(s) Document(s ) GLUCOSE 79 mg/dL Normal (applies [facility] NONFASTING,SERUM to non-numeric (Ammir results) Charles Physician) SODIUM, SERUM 137 Normal (applies [facility] mEq/L to non-numeric (Ammir results) Charles Physician) POTASSIUM, SERUM 4.2 Normal (applies [facility] mEq/L to non-numeric (Ammir results) Charles Physician) CHLORIDE, SERUM 104 Normal (applies [facility] mEq/L to non-numeric (Ammir results) Charles Physician) Carbon dioxide 25 mEq/L Normal (applies [facility] [VFr/PPres] in to non-numeric (Ammir Gas delivery results) Charles system Physician) Anion gap in 12.2 Normal (applies [facility] Body fluid mEq/L to non-numeric (Ammir results) Charles Physician) BLOOD UREA 12 mg/dL Normal (applies [facility] NITROGEN to non-numeric (Ammir results) Charles Physician) CREATININE, 0.80 Normal (applies [facility] SERUM mg/dL to non-numeric (Ammir results) Charles Physician) CALCIUM, SERUM 9.5 Normal (applies [facility] mg/dL to non-numeric (Ammir results) Charles Physician) TOTAL PROTEIN 7.2 g/dL Normal (applies [facility] to non-numeric (Ammir results) Charles Physician) Microalbumin 4.1 g/dL Normal (applies [facility] [Mass/time] in to non-numeric (Ammir Urine collected results) Charles for unspecified Physician) duration Globulin 3.1 gldl Normal (applies [facility] [Mass/time] in to non-numeric (Ammir 24 hour Urine results) Charles Physician) A/G RATIO 1.32 Normal (applies [facility] g/dl to non-numeric (Ammir results) Charles Physician) BILIRUBIN, TOTAL 0.3 Normal (applies [facility] mg/dL to non-numeric (Ammir results) Charles Physician) ALKALINE 72 U/L Normal (applies [facility] PHOSPHATASE, ALP to non-numeric (Ammir results) Charles Physician) ALT (SGPT) 21 U/L Normal (applies [facility] to non-numeric (Ammir results) Charles Physician) AST 22 U/L Normal (applies [facility] to non-numeric (Ammir results) Charles Physician) EGFR NON AFR 82 Above high normal [facility] SUDANESE mL/min/1 (Ammir .73m2 Charles Physician) EGFR AFR 99 Above high normal [facility] SUD[place]ESE mL/min/1 (Ammir .73m2 Charles Physician) ID Date Data Source [id number] 12/27/2016 12:00:00 AM EDT [facility] (Ammir Charles Physician) Name Value Range Interpretation Code Description Data Faiza rce(s) Supporting Document(s ) MAGNESIUM, 2 mg/dL Normal (applies to [facility] (Am teetee SERUM non-numeric Charles results) Physician) ID Date Data Source [id number] 12/27/2016 12:00:00 AM EDT [facility] (Ammir Charles Physician) Name Value Range Interpretation Description Data Sup porting Code Source(s) Document(s ) PHOSPHATE 3.7 mg/dL Normal (applies to [facility] (Amm ir (PHOSPHORUS) non-numeric Charles results) Physician) ID Date Data Source [id number] 12/27/2016 12:00:00 AM EDT [facility] (Ammir Charles Physician) Name Value Range Interpretation Description Data Sup porting Code Source(s) Document(s ) GLUCOSE 91 mg/dL Normal (applies to [facility] (Amm ir NONFASTING,S non-numeric Charles NANY results) Physician) SODIUM, 139 mEq/L Normal (applies to [facility] (Amm ir SERUM non-numeric Charles results) Physician) POTASSIUM, 4.5 mEq/L Normal (applies to [facility] (Am teetee SERUM non-numeric Charles results) Physician) CHLORIDE, 106 mEq/L Normal (applies to [facility] (Amm ir SERUM non-numeric Charles results) Physician) Carbon 26 mEq/L Normal (applies to [facility] (Amm ir dioxide non-numeric Charles [VFr/PPres] results) Physician) in Gas delivery system Anion gap in 11.5 Normal (applies to [facility] ( Ammir Body fluid mEq/L non-numeric Charles results) Physician) BLOOD UREA 12 mg/dL Normal (applies to [facility] (Am teetee NITROGEN non-numeric Charles results) Physician) CREATININE, 0.80 Normal (applies to [facility] (A mmir SERUM mg/dL non-numeric Charles results) Physician) CALCIUM, 9.6 mg/dL Normal (applies to [facility] (Amm ir SERUM non-numeric Charles results) Physician) EGFR NON AFR 82 Above high normal [facility] (A mmir SUDANESE mL/min/1. Charles 73m2 Physician) EGFR AFR 99 Above high normal [facility] (Ammi r SUDANESE mL/min/1. Charles 73m2 Physician) ID Date Data Source [id number] 12/27/2016 12:00:00 AM EDT [facility] (Ammir Charles Physician) Name Value Range Interpretation Description Data Sup porting Code Source(s) Document(s ) IRON, TOTAL 17 ug/dL Below low normal [facility] (Ammir Charles Physician) Transferrin 345 mg/dL Normal (applies [facility] [Mass/time] in to non-numeric (Ammir 24 hour Urine results) Charles Physician) TIBC 483.8 Above high normal [facility] ug/dL (Ammir Charles Physician) UIBC 466.8 Above high normal [facility] ug/dL (Ammir Charles Physician) %SATURATION 3.5 % Below low normal [facility] (Ammir Charles Physician) ID Date Data Source [id number] 12/27/2016 12:00:00 AM EDT [facility] (Ammir Charles Physician) Name Value Range Interpretation Description Data Sup porting Code Source(s) Document(s ) WBC 7.4 Normal (applies to [facility] 10(3)/uL non-numeric (Ammir results) Charles Physician) RBC 3.8 Normal (applies to [facility] 10(6)/uL non-numeric (Ammir results) Charles Physician) Hemoglobin 9.6 g/dL Below low normal [facility] [Mass/volume] (Ammir in Mixed Charles venous blood Physician) by Oximetry Hematocrit 30.5 % Below low normal [facility] [Pure volume (Ammir fraction] of Charles Blood by Physician) Automated count MCV 81.3 fL Normal (applies to [facility] non-numeric (Ammir results) Charles Physician) MCH 26 pg Normal (applies to [facility] non-numeric (Ammir results) Charles Physician) MCHC 32 g/dL Normal (applies to [facility] non-numeric (Ammir results) Charles Physician) RDWSD 42.6 fL Normal (applies to [facility] non-numeric (Ammir results) Charles Physician) RDWCV 14.5 % Normal (applies to [facility] non-numeric (Ammir results) Charles Physician) PLT 364 Normal (applies to [facility] 10(3)/uL non-numeric (Ammir results) Charles Physician) MPV 11.3 fL Normal (applies to [facility] non-numeric (Ammir results) Charles Physician) NE# 4.40 Normal (applies to [facility] 10(3)/uL non-numeric (Ammir results) Charles Physician) LY# 2.54 Normal (applies to [facility] 10(3)/uL non-numeric (Ammir results) Charles Physician) MO# 0.36 Normal (applies to [facility] 10(3)/uL non-numeric (Ammir results) Charles Physician) EO# 0.07 Normal (applies to [facility] 10(3)/uL non-numeric (Ammir results) Charles Physician) IG# 0.02 Normal (applies to [facility] 10(3)/uL non-numeric (Ammir results) Charles Physician) NE% 59.20 % Normal (applies to [facility] non-numeric (Ammir results) Charles Physician) LY% 34 % Normal (applies to [facility] non-numeric (Ammir results) Charles Physician) MO% 4.8 % Normal (applies to [facility] non-numeric (Ammir results) Charles Physician) EO% 0.9 % Normal (applies to [facility] non-numeric (Ammir results) Charles Physician) BA% 0.7 % Normal (applies to [facility] non-numeric (Ammir results) Charles Physician) IG% 0.30 % Normal (applies to [facility] non-numeric (Ammir results) Charles Physician) ID Date Data Source [id number] 12/27/2016 12:00:00 AM EDT [facility] (Ammir Charles Physician) Name Value Range Interpretation Description Data Sup porting Code Source(s) Document(s ) Ferritin 7.3 ng/mL Below low normal [facility] (Ammir [Interpretat Charles ion] in Physician) Blood ID Date Data Source [id number] 12/27/2016 12:00:00 AM EDT [facility] (Ammir Charles Physician) Name Value Range Interpretation Description Data Sup porting Code Source(s) Document(s ) Ferritin 7.3 ng/mL Below low normal [facility] (Ammir [Interpretat Charles ion] in Physician) Blood ID Date Data Source [id number] 12/27/2016 12:00:00 AM EDT [facility] (Ammir Charles Physician) Name Value Range Interpretation Description Data Sup porting Code Source(s) Document(s ) GLUCOSE 91 mg/dL Normal (applies to [facility] (Amm ir NONFASTING,S non-numeric Charles NANY results) Physician) SODIUM, 139 mEq/L Normal [facility] (Amm ir SERUM non-numeric Charles results) Physician) POTASSIUM, 4.5 mEq/L Normal [facility] (Am teetee SERUM non-numeric Charles results) Physician) CHLORIDE, 106 mEq/L Normal (applies to [facility] (Amm ir SERUM non-numeric Charles results) Physician) Carbon 26 mEq/L Normal (applies to [facility] (Amm ir dioxide non-numeric Charles [VFr/PPres] results) Physician) in Gas delivery system Anion gap in 11.5 Normal (applies to [facility] ( Ammir Body fluid mEq/L non-numeric Charles results) Physician) BLOOD UREA 12 mg/dL Normal (applies to [facility] (Am teetee NITROGEN non-numeric Charles results) Physician) CREATININE, 0.80 Normal (applies to [facility] (A mmir SERUM mg/dL non-numeric Charles results) Physician) CALCIUM, 9.6 mg/dL Normal (applies to [facility] (Amm ir SERUM non-numeric Charles results) Physician) EGFR NON AFR 82 Above high normal [facility] (A mmir SUDANESE mL/min/1. Charles 73m2 Physician) EGFR AFR 99 Above high normal [facility] (Ammi r SUDANESE mL/min/1. Charles 73m2 Physician) ID Date Data Source [id number] 12/27/2016 12:00:00 AM EDT [facility] (Ammir Charles Physician) Name Value Range Interpretation Code Description Data Faiza rce(s) Supporting Document(s ) MAGNESIUM, 2 mg/dL Normal (applies to [facility] (Am teetee SERUM non-numeric Charles results) Physician) ID Date Data Source [id number] 12/27/2016 12:00:00 AM EDT [facility] (Ammir Charles Physician) Name Value Range Interpretation Description Data Sup porting Code Source(s) Document(s ) PHOSPHATE 3.7 mg/dL Normal (applies to [facility] (Amm ir (PHOSPHORUS) non-numeric Charlse results) Physician) ID Date Data Source [id number] 12/27/2016 12:00:00 AM EDT [facility] (Ammir Charles Physician) Name Value Range Interpretation Description Data Sup porting Code Source(s) Document(s ) IRON, TOTAL 17 ug/dL Below low normal [facility] (Ammir Charles Physician) Transferrin 345 mg/dL Normal (applies [facility] [Mass/time] in to non-numeric (Ammir 24 hour Urine results) Charles Physician) TIBC 483.8 Above high normal [facility] ug/dL (Ammir Charles Physician) UIBC 466.8 Above high normal [facility] ug/dL (Ammir Charles Physician) %SATURATION 3.5 % Below low normal [facility] (Ammir Charles Physician) ID Date Data Source [id number] 12/27/2016 12:00:00 AM EDT [facility] (Ammir Charles Physician) Name Value Range Interpretation Description Data Sup porting Code Source(s) Document(s ) WBC 7.4 Normal (applies to [facility] 10(3)/uL non-numeric (Ammir results) Charles Physician) RBC 3.8 Normal (applies to [facility] 10(6)/uL non-numeric (Ammir results) Charles Physician) Hemoglobin 9.6 g/dL Below low normal [facility] [Mass/volume] (Ammir in Mixed Charles venous blood Physician) by Oximetry Hematocrit 30.5 % Below low normal [facility] [Pure volume (Ammir fraction] of Charles Blood by Physician) Automated count MCV 81.3 fL Normal (applies to [facility] non-numeric (Ammir results) Charles Physician) MCH 26 pg Normal (applies to [facility] non-numeric (Ammir results) Charles Physician) MCHC 32 g/dL Normal (applies to [facility] non-numeric (Ammir results) Charles Physician) RDWSD 42.6 fL Normal (applies to [facility] non-numeric (Ammir results) Charles Physician) RDWCV 14.5 % Normal (applies to [facility] non-numeric (Ammir results) Charles Physician) PLT 364 Normal (applies to [facility] 10(3)/uL non-numeric (Ammir results) Charles Physician) MPV 11.3 fL Normal (applies to [facility] non-numeric (Ammir results) Charles Physician) NE# 4.40 Normal (applies to [facility] 10(3)/uL non-numeric (Ammir results) Charles Physician) LY# 2.54 Normal (applies to [facility] 10(3)/uL non-numeric (Ammir results) Charles Physician) MO# 0.36 Normal (applies to [facility] 10(3)/uL non-numeric (Ammir results) Charles Physician) EO# 0.07 Normal (applies to [facility] 10(3)/uL non-numeric (Ammir results) Charles Physician) IG# 0.02 Normal (applies to [facility] 10(3)/uL non-numeric (Ammir results) Charles Physician) NE% 59.20 % Normal (applies to [facility] non-numeric (Ammir results) Charles Physician) LY% 34 % Normal (applies to [facility] non-numeric (Ammir results) Charles Physician) MO% 4.8 % Normal (applies to [facility] non-numeric (Ammir results) Charles Physician) EO% 0.9 % Normal (applies to [facility] non-numeric (Ammir results) Charles Physician) BA% 0.7 % Normal (applies to [facility] non-numeric (Ammir results) Charles Physician) IG% 0.30 % Normal (applies to [facility] non-numeric (Ammir results) Charles Physician) ID Date Data Source [id number] 12/27/2016 12:00:00 AM EDT [facility] (Ammir Charles Physician) Name Value Range Interpretation Description Data Sup porting Code Source(s) Document(s ) Ferritin 7.3 ng/mL Below low normal [facility] (Ammir [Interpretat Charles ion] in Physician) Blood ID Date Data Source [id number] 12/27/2016 12:00:00 AM EDT [facility] (Ammir Charles Physician) Name Value Range Interpretation Code Description Data Faiza rce(s) Supporting Document(s ) MAGNESIUM, 2 mg/dL Normal (applies to [facility] (Am teetee SERUM non-numeric Charles results) Physician) ID Date Data Source [id number] 12/27/2016 12:00:00 AM EDT [facility] (Ammir Charles Physician) Name Value Range Interpretation Description Data Sup porting Code Source(s) Document(s ) PHOSPHATE 3.7 mg/dL Normal (applies to [facility] (Amm ir (PHOSPHORUS) non-numeric Charles results) Physician) ID Date Data Source [id number] 12/27/2016 12:00:00 AM EDT [facility] (Ammir Charles Physician) Name Value Range Interpretation Description Data Sup porting Code Source(s) Document(s ) IRON, TOTAL 17 ug/dL Below low normal [facility] (Ammir Charles Physician) Transferrin 345 mg/dL Normal (applies [facility] [Mass/time] in to non-numeric (Ammir 24 hour Urine results) Charles Physician) TIBC 483.8 Above high normal [facility] ug/dL (Ammir Charles Physician) UIBC 466.8 Above high normal [facility] ug/dL (Ammir Charles Physician) %SATURATION 3.5 % Below low normal [facility] (Ammir Charles Physician) ID Date Data Source [id number] 12/27/2016 12:00:00 AM EDT [facility] (Ammir Charles Physician) Name Value Range Interpretation Description Data Sup porting Code Source(s) Document(s ) WBC 7.4 Normal (applies to [facility] 10(3)/uL non-numeric (Ammir results) Charles Physician) RBC 3.8 Normal (applies to [facility] 10(6)/uL non-numeric (Ammir results) Charles Physician) Hemoglobin 9.6 g/dL Below low normal [facility] [Mass/volume] (Ammir in Mixed Charles venous blood Physician) by Oximetry Hematocrit 30.5 % Below low normal [facility] [Pure volume (Ammir fraction] of Charles Blood by Physician) Automated count MCV 81.3 fL Normal (applies to [facility] non-numeric (Ammir results) Charles Physician) MCH 26 pg Normal (applies to [facility] non-numeric (Ammir results) Charles Physician) MCHC 32 g/dL Normal (applies to [facility] non-numeric (Ammir results) Charles Physician) RDWSD 42.6 fL Normal (applies to [facility] non-numeric (Ammir results) Charles Physician) RDWCV 14.5 % Normal (applies to [facility] non-numeric (Ammir results) Charles Physician) PLT 364 Normal (applies to [facility] 10(3)/uL non-numeric (Ammir results) Charles Physician) MPV 11.3 fL Normal (applies to [facility] non-numeric (Ammir results) Charles Physician) NE# 4.40 Normal (applies to [facility] 10(3)/uL non-numeric (Ammir results) Charles Physician) LY# 2.54 Normal (applies to [facility] 10(3)/uL non-numeric (Ammir results) Charles Physician) MO# 0.36 Normal (applies to [facility] 10(3)/uL non-numeric (Ammir results) Charles Physician) EO# 0.07 Normal (applies to [facility] 10(3)/uL non-numeric (Ammir results) Charles Physician) IG# 0.02 Normal (applies to [facility] 10(3)/uL non-numeric (Ammir results) Charles Physician) NE% 59.20 % Normal (applies to [facility] non-numeric (Ammir results) Charles Physician) LY% 34 % Normal (applies to [facility] non-numeric (Ammir results) Charles Physician) MO% 4.8 % Normal (applies to [facility] non-numeric (Ammir results) Charles Physician) EO% 0.9 % Normal (applies to [facility] non-numeric (Ammir results) Charles Physician) BA% 0.7 % Normal (applies to [facility] non-numeric (Ammir results) Charles Physician) IG% 0.30 % Normal (applies to [facility] non-numeric (Ammir results) Charles Physician) ID Date Data Source [id number] 12/27/2016 12:00:00 AM EDT [facility] (Ammir Charles Physician) Name Value Range Interpretation Description Data Sup porting Code Source(s) Document(s ) Ferritin 7.3 ng/mL Below low normal [facility] (Ammir [Interpretat Charles ion] in Physician) Blood ID Date Data Source [id number] 12/27/2016 12:00:00 AM EDT [facility] (Ammir Charles Physician) Name Value Range Interpretation Description Data Sup porting Code Source(s) Document(s ) GLUCOSE 91 mg/dL Normal (applies to [facility] (Amm ir NONFASTING,S non-numeric Charles NANY results) Physician) SODIUM, 139 mEq/L Normal ([facility] (Amm ir SERUM non-numeric Charles results) Physician) POTASSIUM, 4.5 mEq/L Normal (applies to [facility] (Am teetee SERUM non-numeric Charles results) Physician) CHLORIDE, 106 mEq/L Normal (applies to [facility] (Amm ir SERUM non-numeric Charles results) Physician) Carbon 26 mEq/L Normal (applies to [facility] (Amm ir dioxide non-numeric Charles [VFr/PPres] results) Physician) in Gas delivery system Anion gap in 11.5 Normal (applies to [facility] ( Ammir Body fluid mEq/L non-numeric Charles results) Physician) BLOOD UREA 12 mg/dL Normal (applies to [facility] (Am teetee NITROGEN non-numeric Charles results) Physician) CREATININE, 0.80 Normal ([facility] (A mmir SERUM mg/dL non-numeric Charles results) Physician) CALCIUM, 9.6 mg/dL Normal (applies to [facility] (Amm ir SERUM non-numeric Charles results) Physician) EGFR NON AFR 82 Above high normal [facility] (A mmir SUDANESE mL/min/1. Charles 73m2 Physician) EGFR AFR 99 Above high normal [facility] (Ammi r SUDANESE mL/min/1. Charles 73m2 Physician) ID Date Data Source [id number] 12/27/2016 12:00:00 AM EDT [facility] (Ammir Charles Physician) Name Value Range Interpretation Code Description Data Faiza rce(s) Supporting Document(s ) MAGNESIUM, 2 mg/dL Normal (applies to [facility] (Am teetee SERUM non-numeric Charles results) Physician) ID Date Data Source [id number] 12/27/2016 12:00:00 AM EDT [facility] (Ammir Charles Physician) Name Value Range Interpretation Description Data Sup porting Code Source(s) Document(s ) PHOSPHATE 3.7 mg/dL Normal (applies to [facility] (Amm ir (PHOSPHORUS) non-numeric Charles results) Physician) ID Date Data Source [id number] 12/27/2016 12:00:00 AM EDT [facility] (Ammir Charles Physician) Name Value Range Interpretation Description Data Sup porting Code Source(s) Document(s ) IRON, TOTAL 17 ug/dL Below low normal [facility] (Ammir Charles Physician) Transferrin 345 mg/dL Normal (applies [facility] [Mass/time] in to non-numeric (Ammir 24 hour Urine results) Charles Physician) TIBC 483.8 Above high normal [facility] ug/dL (Ammir Charles Physician) UIBC 466.8 Above high normal [facility] ug/dL (Ammir Charles Physician) %SATURATION 3.5 % Below low normal [facility] (Ammir Charles Physician) ID Date Data Source [id number] 12/27/2016 12:00:00 AM EDT [facility] (Ammir Charles Physician) Name Value Range Interpretation Description Data Sup porting Code Source(s) Document(s ) WBC 7.4 Normal (applies to [facility] 10(3)/uL non-numeric (Ammir results) Charles Physician) RBC 3.8 Normal (applies to [facility] 10(6)/uL non-numeric (Ammir results) Charles Physician) Hemoglobin 9.6 g/dL Below low normal [facility] [Mass/volume] (Ammir in Mixed Charles venous blood Physician) by Oximetry Hematocrit 30.5 % Below low normal [facility] [Pure volume (Ammir fraction] of Charles Blood by Physician) Automated count MCV 81.3 fL Normal (applies to [facility] non-numeric (Ammir results) Charles Physician) MCH 26 pg Normal (applies to [facility] non-numeric (Ammir results) Charles Physician) MCHC 32 g/dL Normal (applies to [facility] non-numeric (Ammir results) Charles Physician) RDWSD 42.6 fL Normal (applies to [facility] non-numeric (Ammir results) Charles Physician) RDWCV 14.5 % Normal (applies to [facility] non-numeric (Ammir results) Charles Physician) PLT 364 Normal (applies to [facility] 10(3)/uL non-numeric (Ammir results) Charles Physician) MPV 11.3 fL Normal (applies to [facility] non-numeric (Ammir results) Charles Physician) NE# 4.40 Normal (applies to [facility] 10(3)/uL non-numeric (Ammir results) Charles Physician) LY# 2.54 Normal (applies to [facility] 10(3)/uL non-numeric (Ammir results) Charles Physician) MO# 0.36 Normal (applies to [facility] 10(3)/uL non-numeric (Ammir results) Charles Physician) EO# 0.07 Normal (applies to [facility] 10(3)/uL non-numeric (Ammir results) Charles Physician) IG# 0.02 Normal (applies to [facility] 10(3)/uL non-numeric (Ammir results) Charles Physician) NE% 59.20 % Normal (applies to [facility] non-numeric (Ammir results) Charles Physician) LY% 34 % Normal (applies to [facility] non-numeric (Ammir results) Charles Physician) MO% 4.8 % Normal (applies to [facility] non-numeric (Ammir results) Charles Physician) EO% 0.9 % Normal (applies to [facility] non-numeric (Ammir results) Charles Physician) BA% 0.7 % Normal (applies to [facility] non-numeric (Ammir results) Charles Physician) IG% 0.30 % Normal (applies to [facility] non-numeric (Ammir results) Charles Physician) ID Date Data Source [id number] 12/27/2016 12:00:00 AM EDT [facility] (Ammir Charles Physician) Name Value Range Interpretation Description Data Sup porting Code Source(s) Document(s ) IRON, TOTAL 17 ug/dL Below low normal [facility] (Ammir Charles Physician) Transferrin 345 mg/dL Normal (applies [facility] [Mass/time] in to non-numeric (Ammir 24 hour Urine results) Charles Physician) TIBC 483.8 Above high normal [facility] ug/dL (Ammir Charles Physician) UIBC 466.8 Above high normal [facility] ug/dL (Ammir Charles Physician) %SATURATION 3.5 % Below low normal [facility] (Ammir Charles Physician) ID Date Data Source [id number] 12/27/2016 12:00:00 AM EDT [facility] (Ammir Charles Physician) Name Value Range Interpretation Description Data Sup porting Code Source(s) Document(s ) WBC 7.4 Normal (applies to [facility] 10(3)/uL non-numeric (Ammir results) Charles Physician) RBC 3.8 Normal (applies to [facility] 10(6)/uL non-numeric (Ammir results) Charles Physician) Hemoglobin 9.6 g/dL Below low normal [facility] [Mass/volume] (Ammir in Mixed Charles venous blood Physician) by Oximetry Hematocrit 30.5 % Below low normal [facility] [Pure volume (Ammir fraction] of Charles Blood by Physician) Automated count MCV 81.3 fL Normal (applies to [facility] non-numeric (Ammir results) Charles Physician) MCH 26 pg Normal (applies to [facility] non-numeric (Ammir results) Charles Physician) MCHC 32 g/dL Normal (applies to [facility] non-numeric (Ammir results) Charles Physician) RDWSD 42.6 fL Normal (applies to [facility] non-numeric (Ammir results) Charles Physician) RDWCV 14.5 % Normal (applies to [facility] non-numeric (Ammir results) Charles Physician) PLT 364 Normal (applies to [facility] 10(3)/uL non-numeric (Ammir results) Charles Physician) MPV 11.3 fL Normal (applies to [facility] non-numeric (Ammir results) Charles Physician) NE# 4.40 Normal (applies to [facility] 10(3)/uL non-numeric (Ammir results) Charles Physician) LY# 2.54 Normal (applies to [facility] 10(3)/uL non-numeric (Ammir results) Charles Physician) MO# 0.36 Normal (applies to [facility] 10(3)/uL non-numeric (Ammir results) Charles Physician) EO# 0.07 Normal (applies to [facility] 10(3)/uL non-numeric (Ammir results) Charles Physician) IG# 0.02 Normal (applies to [facility] 10(3)/uL non-numeric (Ammir results) Charles Physician) NE% 59.20 % Normal (applies to [facility] non-numeric (Ammir results) Charles Physician) LY% 34 % Normal (applies to [facility] non-numeric (Ammir results) Charles Physician) MO% 4.8 % Normal (applies to [facility] non-numeric (Ammir results) Charles Physician) EO% 0.9 % Normal (applies to [facility] non-numeric (Ammir results) Charles Physician) BA% 0.7 % Normal (applies to [facility] non-numeric (Ammir results) Charles Physician) IG% 0.30 % Normal (applies to [facility] non-numeric (Ammir results) Charles Physician) ID Date Data Source [id number] 12/27/2016 12:00:00 AM EDT [facility] (Ammir Charles Physician) Name Value Range Interpretation Description Data Sup porting Code Source(s) Document(s ) Ferritin 7.3 ng/mL Below low normal [facility] (Ammir [Interpretat Charles ion] in Physician) Blood ID Date Data Source [id number] 12/27/2016 12:00:00 AM EDT [facility] (Ammir Charles Physician) Name Value Range Interpretation Description Data Sup porting Code Source(s) Document(s ) GLUCOSE 91 mg/dL Normal (applies to [facility] (Amm ir NONFASTING,S non-numeric Charles NANY results) Physician) SODIUM, 139 mEq/L Normal (applies to [facility] (Amm ir SERUM non-numeric Charles results) Physician) POTASSIUM, 4.5 mEq/L Normal (applies to [facility] (Am teetee SERUM non-numeric Charles results) Physician) CHLORIDE, 106 mEq/L Normal (applies to [facility] (Amm ir SERUM non-numeric Charles results) Physician) Carbon 26 mEq/L Normal (applies to [facility] (Amm ir dioxide non-numeric Charles [VFr/PPres] results) Physician) in Gas delivery system Anion gap in 11.5 Normal (applies to [facility] ( Ammir Body fluid mEq/L non-numeric Charles results) Physician) BLOOD UREA 12 mg/dL Normal (applies to [facility] (Am teetee NITROGEN non-numeric Charles results) Physician) CREATININE, 0.80 Normal (applies to [facility] (A mmir SERUM mg/dL non-numeric Charles results) Physician) CALCIUM, 9.6 mg/dL Normal (applies to [facility] (Amm ir SERUM non-numeric Charles results) Physician) EGFR NON AFR 82 Above high normal [facility] (A mmir SUDANESE mL/min/1. Charles 73m2 Physician) EGFR AFR 99 Above high normal [facility] (Ammi r SUDANESE mL/min/1. Charles 73m2 Physician) ID Date Data Source [id number] 12/27/2016 12:00:00 AM EDT [facility] (Ammir Charles Physician) Name Value Range Interpretation Code Description Data Faiza rce(s) Supporting Document(s ) MAGNESIUM, 2 mg/dL Normal (applies to [facility] (Am teetee SERUM non-numeric Charles results) Physician) ID Date Data Source [id number] 12/27/2016 12:00:00 AM EDT [facility] (Ammir Charles Physician) Name Value Range Interpretation Description Data Sup porting Code Source(s) Document(s ) PHOSPHATE 3.7 mg/dL Normal (applies to [facility] (Amm ir (PHOSPHORUS) non-numeric Charles results) Physician) ID Date Data Source [id number] 12/01/2016 12:00:00 AM EDT [facility] (Ammir Charles Physician) Name Value Range Interpretation Description Data Sup porting Code Source(s) Document(s ) GLUCOSE 91 mg/dL Normal (applies to [facility] (Amm ir NONFASTING,S non-numeric Charles NANY results) Physician) SODIUM, 138 mEq/L Normal (applies to [facility] (Amm ir SERUM non-numeric Charles results) Physician) POTASSIUM, 4.2 mEq/L Normal (applies to [facility] (Am teetee SERUM non-numeric Charles results) Physician) CHLORIDE, 108 mEq/L Normal (applies to [facility] (Amm ir SERUM non-numeric Charles results) Physician) Carbon 23 mEq/L Normal (applies to [facility] (Amm ir dioxide non-numeric Charles [VFr/PPres] results) Physician) in Gas delivery system Anion gap in 11.2 Normal (applies to [facility] ( Ammir Body fluid mEq/L non-numeric Charles results) Physician) BLOOD UREA 11 mg/dL Normal (applies to [facility] (Am teetee NITROGEN non-numeric Charles results) Physician) CREATININE, 0.80 Normal (applies to [facility] (A mmir SERUM mg/dL non-numeric Charles results) Physician) CALCIUM, 9.7 mg/dL Normal ([facility] (Amm ir SERUM non-numeric Charles results) Physician) EGFR NON AFR 82 Above high normal [facility] (A mmir SUDANESE mL/min/1. Charles 73m2 Physician) EGFR AFR 99 Above high normal [facility] (Ammi r SUDANESE mL/min/1. Charles 73m2 Physician) ID Date Data Source [id number] 12/01/2016 12:00:00 AM EDT [facility] (Ammir Charles Physician) Name Value Range Interpretation Description Data Sup porting Code Source(s) Document(s ) GLUCOSE 91 mg/dL Normal (applies to [facility] (Amm ir NONFASTING,S non-numeric Charles NANY results) Physician) SODIUM, 138 mEq/L Normal ([facility] (Amm ir SERUM non-numeric Charles results) Physician) POTASSIUM, 4.2 mEq/L Normal (applies to [facility] (Am teetee SERUM non-numeric Charles results) Physician) CHLORIDE, 108 mEq/L Normal (applies to [facility] (Amm ir SERUM non-numeric Charles results) Physician) Carbon 23 mEq/L Normal (applies to [facility] (Amm ir dioxide non-numeric Charles [VFr/PPres] results) Physician) in Gas delivery system Anion gap in 11.2 Normal (applies to [facility] ( Ammir Body fluid mEq/L non-numeric Charles results) Physician) BLOOD UREA 11 mg/dL Normal (applies to [facility] (Am teetee NITROGEN non-numeric Charles results) Physician) CREATININE, 0.80 Normal (applies to [facility] (A mmir SERUM mg/dL non-numeric Charles results) Physician) CALCIUM, 9.7 mg/dL Normal (applies to [facility] (Amm ir SERUM non-numeric Charles results) Physician) EGFR NON AFR 82 Above high normal [facility] (A mmir SUDANESE mL/min/1. Charles 73m2 Physician) EGFR AFR 99 Above high normal [facility] (Ammi r SUDANESE mL/min/1. Charles 73m2 Physician) ID Date Data Source [id number] 12/01/2016 12:00:00 AM EDT [facility] (Ammir Charles Physician) Name Value Range Interpretation Description Data Sup porting Code Source(s) Document(s ) GLUCOSE 91 mg/dL Normal (applies to [facility] (Amm ir NONFASTING,S non-numeric Charles NANY results) Physician) SODIUM, 138 mEq/L Normal (applies to [facility] (Amm ir SERUM non-numeric Charles results) Physician) POTASSIUM, 4.2 mEq/L Normal (applies to [facility] (Am teetee SERUM non-numeric Charles results) Physician) CHLORIDE, 108 mEq/L Normal (applies to [facility] (Amm ir SERUM non-numeric Charles results) Physician) Carbon 23 mEq/L Normal (applies to [facility] (Amm ir dioxide non-numeric Charles [VFr/PPres] results) Physician) in Gas delivery system Anion gap in 11.2 Normal (applies to [facility] ( Ammir Body fluid mEq/L non-numeric Charles results) Physician) BLOOD UREA 11 mg/dL Normal (applies to [facility] (Am teetee NITROGEN non-numeric Charles results) Physician) CREATININE, 0.80 Normal (applies to [facility] (A mmir SERUM mg/dL non-numeric Charles results) Physician) CALCIUM, 9.7 mg/dL Normal (applies to [facility] (Amm ir SERUM non-numeric Charles results) Physician) EGFR NON AFR 82 Above high normal [facility] (A mmir SUDANESE mL/min/1. Charles 73m2 Physician) EGFR AFR 99 Above high normal [facility] (Ammi r SUDANESE mL/min/1. Charles 73m2 Physician) ID Date Data Source [id number] 12/01/2016 12:00:00 AM EDT [facility] (Ammir Charles Physician) Name Value Range Interpretation Description Data Sup porting Code Source(s) Document(s ) GLUCOSE 91 mg/dL Normal (applies to [facility] (Amm ir NONFASTING,S non-numeric Charles NANY results) Physician) SODIUM, 138 mEq/L Normal (applies to [facility] (Amm ir SERUM non-numeric Charles results) Physician) POTASSIUM, 4.2 mEq/L Normal (applies to [facility] (Am teetee SERUM non-numeric Charles results) Physician) CHLORIDE, 108 mEq/L Normal (applies to [facility] (Amm ir SERUM non-numeric Charles results) Physician) Carbon 23 mEq/L Normal (applies to [facility] (Amm ir dioxide non-numeric Charles [VFr/PPres] results) Physician) in Gas delivery system Anion gap in 11.2 Normal (applies to [facility] ( Ammir Body fluid mEq/L non-numeric Charles results) Physician) BLOOD UREA 11 mg/dL Normal (applies to [facility] (Am teetee NITROGEN non-numeric Charles results) Physician) CREATININE, 0.80 Normal (applies to [facility] (A mmir SERUM mg/dL non-numeric Charles results) Physician) CALCIUM, 9.7 mg/dL Normal (applies to [facility] (Amm ir SERUM non-numeric Charles results) Physician) EGFR NON AFR 82 Above high normal [facility] (A mmir SUDANESE mL/min/1. Charles 73m2 Physician) EGFR AFR 99 Above high normal [facility] (Ammi r SUDANESE mL/min/1. Charles 73m2 Physician) ID Date Data Source [id number] 12/01/2016 12:00:00 AM EDT [facility] (Ammir Charles Physician) Name Value Range Interpretation Description Data Sup porting Code Source(s) Document(s ) GLUCOSE 91 mg/dL Normal (applies to [facility] (Amm ir NONFASTING,S non-numeric Charles NANY results) Physician) SODIUM, 138 mEq/L Normal (applies to [facility] (Amm ir SERUM non-numeric Charles results) Physician) POTASSIUM, 4.2 mEq/L Normal (applies to [facility] (Am teetee SERUM non-numeric Charles results) Physician) CHLORIDE, 108 mEq/L Normal (applies to [facility] (Amm ir SERUM non-numeric Charles results) Physician) Carbon 23 mEq/L Normal (applies to [facility] (Amm ir dioxide non-numeric Charles [VFr/PPres] results) Physician) in Gas delivery system Anion gap in 11.2 Normal (applies to [facility] ( Ammir Body fluid mEq/L non-numeric Charles results) Physician) BLOOD UREA 11 mg/dL Normal (applies to [facility] (Am teetee NITROGEN non-numeric Charles results) Physician) CREATININE, 0.80 Normal (applies to [facility] (A mmir SERUM mg/dL non-numeric Charles results) Physician) CALCIUM, 9.7 mg/dL Normal (applies to [facility] (Amm ir SERUM non-numeric Charles results) Physician) EGFR NON AFR 82 Above high normal [facility] (A mmir SUDANESE mL/min/1. Charles 73m2 Physician) EGFR AFR 99 Above high normal [facility] (Ammi r SUDANESE mL/min/1. Charles 73m2 Physician) ID Date Data Source [id number] 11/17/2016 12:00:00 AM EDT [facility] (Ammir Charles Physician) Name Value Range Interpretation Description Data Sup porting Code Source(s) Document(s ) GLUCOSE UA NEGATIVE Normal (applies [facility] to non-numeric (Ammir results) Charles Physician) BILIRUBIN, TOTAL NEGATIVE Normal (applies [facility] to non-numeric (Ammir results) Charles Physician) Ketones NEGATIVE Normal (applies [facility] [Presence] in to non-numeric (Ammir Blood by Tablet results) Charles Physician) Specific gravity 1.023 SG Normal (applies [facility] of Pericardial units to non-numeric (Ammir fluid by results) Charles Refractometry Physician) Blood [Presence] NEGATIVE Normal (applies [facility] in Urine by to non-numeric (Ammir Visual results) Charles Physician) pH of Lower 5 Ph units Normal (applies [facility] respiratory to non-numeric (Ammir specimen results) Charles Physician) Protein NEGATIVE Normal (applies [facility] [Mass/volume] in to non-numeric (Ammir Lower results) Charles respiratory Physician) specimen Urobilinogen 0-2.0 Normal (applies [facility] [Presence] in to non-numeric (Ammir Urine by results) Charles Automated test Physician) strip Nitrite NEGATIVE Normal (applies [facility] [Presence] in to non-numeric (Ammir Urine by Test results) Charles strip Physician) Leukocyte LARGE Normal (applies [facility] esterase to non-numeric (Ammir [Presence] in results) Charles Body fluid by Physician) Automated test strip Color of YELLOW Normal (applies [facility] Peritoneal to non-numeric (Ammir dialysis fluid results) Charles Physician) TRANSPARENCY SLIGHTLY-CL Normal (applies [facility] OUDY to non-numeric (Ammir results) Charles Physician) RBC`S 0-4 Normal (applies [facility] to non-numeric (Ammir results) Charles Physician) WBC`S >50 Above high [facility] normal (Ammir Charles Physician) SQUMAOUS FEW Normal (applies [facility] EPITHELIAL to non-numeric (Ammir results) Charles Physician) MUCOUS FEW Normal (applies [facility] to non-numeric (Ammir results) Charles Physician) ID Date Data Source [id number] 11/17/2016 12:00:00 AM EDT [facility] (Ammir Charles Physician) Name Value Range Interpretation Description Data Sup porting Code Source(s) Document(s ) ORGANISM Abnormal (applies [facility] to non-numeric (Ammir results) Charles Physician) Comment Normal (applies [facility] [Interpretation] to non-numeric (Ammir Left eye Narrative results) Charles Ophthalmometer Physician) ID Date Data Source [id number] 11/17/2016 12:00:00 AM EDT [facility] (Ammir Charles Physician) Name Value Range Interpretation Description Data Sup porting Code Source(s) Document(s ) GLUCOSE UA NEGATIVE Normal (applies [facility] to non-numeric (Ammir results) Charles Physician) BILIRUBIN, TOTAL NEGATIVE Normal (applies [facility] to non-numeric (Ammir results) Charles Physician) Ketones NEGATIVE Normal (applies [facility] [Presence] in to non-numeric (Ammir Blood by Tablet results) Charles Physician) Specific gravity 1.023 SG Normal (applies [facility] of Pericardial units to non-numeric (Ammir fluid by results) Charles Refractometry Physician) Blood [Presence] NEGATIVE Normal (applies [facility] in Urine by to non-numeric (Ammir Visual results) Charles Physician) pH of Lower 5 Ph units Normal (applies [facility] respiratory to non-numeric (Ammir specimen results) Charles Physician) Protein NEGATIVE Normal (applies [facility] [Mass/volume] in to non-numeric (Ammir Lower results) Charles respiratory Physician) specimen Urobilinogen 0-2.0 Normal (applies [facility] [Presence] in to non-numeric (Ammir Urine by results) Charles Automated test Physician) strip Nitrite NEGATIVE Normal (applies [facility] [Presence] in to non-numeric (Ammir Urine by Test results) Charles strip Physician) Leukocyte LARGE Normal (applies [facility] esterase to non-numeric (Ammir [Presence] in results) Charles Body fluid by Physician) Automated test strip Color of YELLOW Normal (applies [facility] Peritoneal to non-numeric (Ammir dialysis fluid results) Charles Physician) TRANSPARENCY SLIGHTLY-CL Normal (applies [facility] OUDY to non-numeric (Ammir results) Charles Physician) RBC`S 0-4 Normal (applies [facility] to non-numeric (Ammir results) Charles Physician) WBC`S >50 Above high [facility] normal (Ammir Charles Physician) SQUMAOUS FEW Normal (applies [facility] EPITHELIAL to non-numeric (Ammir results) Charles Physician) MUCOUS FEW Normal (applies [facility] to non-numeric (Ammir results) Charles Physician) ID Date Data Source [id number] 11/17/2016 12:00:00 AM EDT [facility] (Ammir Charles Physician) Name Value Range Interpretation Description Data Sup porting Code Source(s) Document(s ) ORGANISM Abnormal (applies [facility] to non-numeric (Ammir results) Charles Physician) Comment Normal (applies [facility] [Interpretation] to non-numeric (Ammir Left eye Narrative results) [facility] Ophthalmometer Physician) ID Date Data Source [id number] 11/17/2016 12:00:00 AM EDT [facility] (Ammir Charles Physician) Name Value Range Interpretation Description Data Sup porting Code Source(s) Document(s ) GLUCOSE UA NEGATIVE Normal (applies [facility] to non-numeric (Ammir results) Charles Physician) BILIRUBIN, TOTAL NEGATIVE Normal (applies [facility] to non-numeric (Ammir results) Charles Physician) Ketones NEGATIVE Normal (applies [facility] [Presence] in to non-numeric (Ammir Blood by Tablet results) Charles Physician) Specific gravity 1.023 SG Normal (applies [facility] of Pericardial units to non-numeric (Ammir fluid by results) Charles Refractometry Physician) Blood [Presence] NEGATIVE Normal (applies [facility] in Urine by to non-numeric (Ammir Visual results) Charles Physician) pH of Lower 5 Ph units Normal (applies [facility] respiratory to non-numeric (Ammir specimen results) Charles Physician) Protein NEGATIVE Normal (applies [facility] [Mass/volume] in to non-numeric (Ammir Lower results) Charles respiratory Physician) specimen Urobilinogen 0-2.0 Normal (applies [facility] [Presence] in to non-numeric (Ammir Urine by results) Charles Automated test Physician) strip Nitrite NEGATIVE Normal (applies [facility] [Presence] in to non-numeric (Ammir Urine by Test results) Charles strip Physician) Leukocyte LARGE Normal (applies [facility] esterase to non-numeric (Ammir [Presence] in results) Charles Body fluid by Physician) Automated test strip Color of YELLOW Normal (applies [facility] Peritoneal to non-numeric (Ammir dialysis fluid results) Charles Physician) TRANSPARENCY SLIGHTLY-CL Normal (applies [facility] OUDY to non-numeric (Ammir results) Charles Physician) RBC`S 0-4 Normal (applies [facility] to non-numeric (Ammir results) Charles Physician) WBC`S >50 Above high [facility] normal (Ammir Charles Physician) SQUMAOUS FEW Normal (applies [facility] EPITHELIAL to non-numeric (Ammir results) Charles Physician) MUCOUS FEW Normal (applies [facility] to non-numeric (Ammir results) Charles Physician) ID Date Data Source [id number] 11/17/2016 12:00:00 AM EDT [facility] (Ammir Charles Physician) Name Value Range Interpretation Description Data Sup porting Code Source(s) Document(s ) ORGANISM Abnormal (applies [facility] to non-numeric (Ammir results) Charles Physician) Comment Normal (applies [facility] [Interpretation] to non-numeric (Ammir Left eye Narrative results) Charles Ophthalmometer Physician) ID Date Data Source [id number] 11/17/2016 12:00:00 AM EDT [facility] (Ammir Charles Physician) Name Value Range Interpretation Description Data Sup porting Code Source(s) Document(s ) ORGANISM Abnormal (applies [facility] to non-numeric (Ammir results) Charles Physician) Comment Normal (applies [facility] [Interpretation] to non-numeric (Ammir Left eye Narrative results) [facility] Ophthalmometer Physician) ID Date Data Source [id number] 11/17/2016 12:00:00 AM EDT [facility] (Ammir Charles Physician) Name Value Range Interpretation Description Data Sup porting Code Source(s) Document(s ) GLUCOSE UA NEGATIVE Normal (applies [facility] to non-numeric (Ammir results) Charles Physician) BILIRUBIN, TOTAL NEGATIVE Normal (applies [facility] to non-numeric (Ammir results) Charles Physician) Ketones NEGATIVE Normal (applies [facility] [Presence] in to non-numeric (Ammir Blood by Tablet results) Charles Physician) Specific gravity 1.023 SG Normal (applies [facility] of Pericardial units to non-numeric (Ammir fluid by results) Charles Refractometry Physician) Blood [Presence] NEGATIVE Normal (applies [facility] in Urine by to non-numeric (Ammir Visual results) Charles Physician) pH of Lower 5 Ph units Normal (applies [facility] respiratory to non-numeric (Ammir specimen results) Charles Physician) Protein NEGATIVE Normal (applies [facility] [Mass/volume] in to non-numeric (Ammir Lower results) Charles respiratory Physician) specimen Urobilinogen 0-2.0 Normal (applies [facility] [Presence] in to non-numeric (Ammir Urine by results) Charles Automated test Physician) strip Nitrite NEGATIVE Normal (applies [facility] [Presence] in to non-numeric (Ammir Urine by Test results) Charles strip Physician) Leukocyte LARGE Normal (applies [facility] esterase to non-numeric (Ammir [Presence] in results) Charles Body fluid by Physician) Automated test strip Color of YELLOW Normal (applies [facility] Peritoneal to non-numeric (Ammir dialysis fluid results) Charles Physician) TRANSPARENCY SLIGHTLY-CL Normal (applies [facility] OUDY to non-numeric (Ammir results) Charles Physician) RBC`S 0-4 Normal (applies [facility] to non-numeric (Ammir results) Charles Physician) WBC`S >50 Above high [facility] normal (Ammir Charles Physician) SQUMAOUS FEW Normal (applies [facility] EPITHELIAL to non-numeric (Ammir results) Charles Physician) MUCOUS FEW Normal (applies [facility] to non-numeric (Ammir results) Charles Physician) ID Date Data Source [id number] 11/17/2016 12:00:00 AM EDT [facility] (Ammir Charles Physician) Name Value Range Interpretation Description Data Sup porting Code Source(s) Document(s ) Hemoglobin 10.2 Below low normal [facility] [Mass/volume] in g/dL (Ammir Mixed venous Charles blood by Oximetry Physician) Hematocrit [Pure 33.1 % Below low normal [facility] volume fraction] (Ammir of Blood by Charles Automated count Physician) MCV 81.3 fL Normal (applies [facility] to non-numeric (Ammir results) Charles Physician) MCH 25 pg Normal (applies [facility] to non-numeric (Ammir results) Charles Physician) MCHC 31 g/dL Normal (applies [facility] to non-numeric (Ammir results) Charles Physician) RDWSD 48.2 fL Normal (applies [facility] to non-numeric (Ammir results) Charles Physician) RDWCV 16.5 % Above high normal [facility] (Ammir Charles Physician) PLT 334 Normal (applies [facility] 10(3)/uL to non-numeric (Ammir results) Charles Physician) MPV 11.2 fL Normal (applies [facility] to non-numeric (Ammir results) Charles Physician) NE# 3.69 Normal (applies [facility] 10(3)/uL to non-numeric (Ammir results) Charles Physician) LY# 3.50 Normal (applies [facility] 10(3)/uL to non-numeric (Ammir results) Charles Physician) MO# 0.39 Normal (applies [facility] 10(3)/uL to non-numeric (Ammir results) Charles Physician) EO# 0.08 Normal (applies [facility] 10(3)/uL to non-numeric (Ammir results) Charles Physician) IG# 0.01 Normal (applies [facility] 10(3)/uL to non-numeric (Ammir results) Charles Physician) NE% 47.80 % Normal (applies [facility] to non-numeric (Ammir results) Charles Physician) LY% 45 % Normal (applies [facility] to non-numeric (Ammir results) Charles Physician) MO% 5.0 % Normal (applies [facility] to non-numeric (Ammir results) Charles Physician) EO% 1.0 % Normal (applies [facility] to non-numeric (Ammir results) Charles Physician) BA% 0.8 % Normal (applies [facility] to non-numeric (Ammir results) Charles Physician) IG% 0.10 % Normal (applies [facility] to non-numeric (Ammir results) Charles Physician) ORGANISM Abnormal (applies [facility] to non-numeric (Ammir results) Charles Physician) Comment Normal (applies [facility] [Interpretation] to non-numeric (Ammir Left eye results) Charles Narrative Physician) Ophthalmometer ID Date Data Source [id number] 07/04/2016 12:00:00 AM EDT [facility] (Ammir Charles Physician) Name Value Range Interpretation Code Description Data Supporting Source(s) Document(s ) OCCULT NEGATIVE Normal (applies to [facility] (Amm ir BLOOD, non-numeric Charles STOOL SPC 1 results) Physician) OCCULT NEGATIVE Normal (applies to [facility] (Amm ir BLOOD, non-numeric Charles STOOL SPC 2 results) Physician) OCCULT NEGATIVE Normal (applies to [facility] (Amm ir BLOOD, non-numeric Charles STOOL SPC 3 results) Physician) ID Date Data Source [id number] 07/04/2016 12:00:00 AM EDT [facility] (Ammir Charles Physician) Name Value Range Interpretation Code Description Data Supporting Source(s) Document(s ) OCCULT NEGATIVE Normal (applies to [facility] (Amm ir BLOOD, non-numeric Charles STOOL SPC 1 results) Physician) OCCULT NEGATIVE Normal (applies to [facility] (Amm ir BLOOD, non-numeric Charles STOOL SPC 2 results) Physician) OCCULT NEGATIVE Normal (applies to [facility] (Amm ir BLOOD, non-numeric Charles STOOL SPC 3 results) Physician) ID Date Data Source [id number] 07/04/2016 12:00:00 AM EDT [facility] (Ammir Charles Physician) Name Value Range Interpretation Code Description Data Supporting Source(s) Document(s ) OCCULT NEGATIVE Normal (applies to [facility] (Amm ir BLOOD, non-numeric Charles STOOL SPC 1 results) Physician) OCCULT NEGATIVE Normal (applies to [facility] (Amm ir BLOOD, non-numeric Charles STOOL SPC 2 results) Physician) OCCULT NEGATIVE Normal (applies to [facility] (Amm ir BLOOD, non-numeric Charles STOOL SPC 3 results) Physician) ID Date Data Source [id number] 07/04/2016 12:00:00 AM EDT [facility] (Ammir Charles Physician) Name Value Range Interpretation Code Description Data Supporting Source(s) Document(s ) OCCULT NEGATIVE Normal (applies to [facility] (Amm ir BLOOD, non-numeric Charles STOOL SPC 1 results) Physician) OCCULT NEGATIVE Normal (applies to [facility] (Amm ir BLOOD, non-numeric Charles STOOL SPC 2 results) Physician) OCCULT NEGATIVE Normal (applies to [facility] (Amm ir BLOOD, non-numeric Charles STOOL SPC 3 results) Physician) ID Date Data Source [id number] 06/29/2016 12:00:00 AM EDT [facility] (Ammir Charles Physician) Name Value Range Interpretation Description Data Sup porting Code Source(s) Document(s ) VITAMIN D 58.8 Normal (applies to [facility] (Amm ir 1.25 pg/mL non-numeric Charles results) Physician) ID Date Data Source [id number] 06/29/2016 12:00:00 AM EDT [facility] (Ammir Charles Physician) Name Value Range Interpretation Description Data Sup porting Code Source(s) Document(s ) FOLATE SERUM 13.4 Above high normal [facility] (A mmir ng/mL Charles Physician) VITAMIN B12 676 pg/mL Normal (applies to [facility] (A mmir non-numeric Charles results) Physician) ID Date Data Source [id number] 06/29/2016 12:00:00 AM EDT [facility] (Ammir Charles Physician) Name Value Range Interpretation Description Data Sup porting Code Source(s) Document(s ) T4 FREE, 0.88 Below low normal [facility] THYROXINE ng/dL (Ammir Charles Physician) TSH,3RD 1.588 Normal (applies to [facility] GENERATION uIU/mL non-numeric (Ammir results) Charles Physician) ID Date Data Source [id number] 06/29/2016 12:00:00 AM EDT [facility] (Ammir Charles Physician) Name Value Range Interpretation Description Data Sup porting Code Source(s) Document(s ) HEPATITIS A NONREACTIVE Normal (applies [facility] AB to non-numeric (Ammir results) Charles Physician) ID Date Data Source [id number] 06/29/2016 12:00:00 AM EDT [facility] (Ammir Charles Physician) Name Value Range Interpretation Description Data Sup porting Code Source(s) Document(s ) HEPATITIS BS NONREACTIVE Normal (applies [facility] AG SCREEN to non-numeric (Ammir results) Charles Physician) ID Date Data Source [id number] 06/29/2016 12:00:00 AM EDT [facility] (Ammir Charles Physician) Name Value Range Interpretation Code Description Data Faiza rce(s) Supporting Document(s ) HBeAB NEGATIVE Normal (applies to [facility] (Amm ir non-numeric results) Charles Physician) ID Date Data Source [id number] 06/29/2016 12:00:00 AM EDT [facility] (Ammir Charles Physician) Name Value Range Interpretation Description Data Sup porting Code Source(s) Document(s ) HEPATITIS C NONREACTIVE Normal (applies [facility] AB QL to non-numeric (Ammir results) Charles Physician) ID Date Data Source [id number] 06/29/2016 12:00:00 AM EDT [facility] (Ammir Charles Physician) Name Value Range Interpretation Description Data Sup porting Code Source(s) Document(s ) HEPATITIS B NONREACTIVE Normal (applies [facility] CORE AB QL to non-numeric (Ammir results) Charles Physician) ID Date Data Source [id number] 06/29/2016 12:00:00 AM EDT [facility] (Ammir Charles Physician) Name Value Range Interpretation Description Data Sup porting Code Source(s) Document(s ) HEPATITIS B 97.07 Normal (applies to [facility] (A mmir SURFACE AB (REACTIVE non-numeric Charles ) results) Physician) ID Date Data Source [id number] 06/29/2016 12:00:00 AM EDT [facility] (Ammir Charles Physician) Name Value Range Interpretation Description Data Sup porting Code Source(s) Document(s ) HEPATITIS BE NONREACTIVE Normal (applies [facility] AG to non-numeric (Ammir results) Charles Physician) ID Date Data Source [id number] 06/29/2016 12:00:00 AM EDT [facility] (Ammir Charles Physician) Name Value Range Interpretation Description Data Sup porting Code Source(s) Document(s ) Hemoglobin A1c 5.6 % Normal (applies to [facility] (Ammir in Blood non-numeric Charles results) Physician) ID Date Data Source [id number] 06/29/2016 12:00:00 AM EDT [facility] (Ammir Charles Physician) Name Value Range Interpretation Code Description Data Supporting Source(s) Document(s ) GLYCOMARK 16.56 Normal (applies to [facility] (Amm ir ug/mL non-numeric Charles results) Physician) ID Date Data Source [id number] 06/29/2016 12:00:00 AM EDT [facility] (Ammir Charles Physician) Name Value Range Interpretation Description Data Sup porting Code Source(s) Document(s ) WBC 5.42 Normal (applies to [facility] 10(3)/uL non-numeric (Ammir results) Charles Physician) RBC 3.93 Normal (applies to [facility] 10(6)/uL non-numeric (Ammir results) Charles Physician) Hemoglobin 10.2 g/dL Below low normal [facility] [Mass/volume] (Ammir in Mixed Charles venous blood Physician) by Oximetry Hematocrit 33.6 % Below low normal [facility] [Pure volume (Ammir fraction] of Charles Blood by Physician) Automated count MCV 85.5 fL Normal (applies to [facility] non-numeric (Ammir results) Charles Physician) MCH 26.0 pg Normal (applies to [facility] non-numeric (Ammir results) Charles Physician) MCHC 30.4 g/dL Below low normal [facility] (Ammir Charles Physician) PLT 242 Normal (applies to [facility] 10(3)/uL non-numeric (Ammir results) Charles Physician) RDWSD 43.5 fL Normal (applies to [facility] non-numeric (Ammir results) Charles Physician) RDWCV 14.1 % Normal (applies to [facility] non-numeric (Ammir results) Charles Physician) MPV 11.2 fL Normal (applies to [facility] non-numeric (Ammir results) Charles Physician) NE# 2.13 Normal (applies to [facility] 10(3)/uL non-numeric (Ammir results) Charles Physician) LY# 2.43 Normal (applies to [facility] 10(3)/uL non-numeric (Ammir results) Charles Physician) MO# 0.62 Normal (applies to [facility] 10(3)/uL non-numeric (Ammir results) Charles Physician) EO# 0.16 Normal (applies to [facility] 10(3)/uL non-numeric (Ammir results) Charles Physician) BA# 0.07 Normal (applies to [facility] 10(3)/uL non-numeric (Ammir results) Charles Physician) IG# 0.01 Normal (applies to [facility] 10(3)/uL non-numeric (Ammir results) Charles Physician) NE% 39.3 % Normal (applies to [facility] non-numeric (Ammir results) Charles Physician) LY% 44.8 % Normal (applies to [facility] non-numeric (Ammir results) Charles Physician) MO% 11.4 % Normal (applies to [facility] non-numeric (Ammir results) Charles Physician) EO% 3.0 % Normal (applies to [facility] non-numeric (Ammir results) Charles Physician) BA% 1.3 % Normal (applies to [facility] non-numeric (Ammir results) Charles Physician) IG% 0.2 % Normal (applies to [facility] non-numeric (Ammir results) Charles Physician) ID Date Data Source [id number] 06/29/2016 12:00:00 AM EDT [facility] (Ammir Charles Physician) Name Value Range Interpretation Description Data Sup porting Code Source(s) Document(s ) GLUCOSE 83 mg/dL Normal (applies [facility] NONFASTING,SERUM to non-numeric (Ammir results) Charles Physician) SODIUM, SERUM 140 Normal (applies [facility] mEq/L to non-numeric (Ammir results) Charles Physician) POTASSIUM, SERUM 4.2 Normal (applies [facility] mEq/L to non-numeric (Ammir results) Charles Physician) CHLORIDE, SERUM 111 Above high normal [facility] mEq/L (Ammir Charles Physician) Carbon dioxide 23 mEq/L Normal (applies [facility] [VFr/PPres] in to non-numeric (Ammir Gas delivery results) Charles system Physician) Anion gap in 10.2 Normal (applies [facility] Body fluid mEq/L to non-numeric (Ammir results) Charles Physician) BLOOD UREA 11 mg/dL Normal (applies [facility] NITROGEN to non-numeric (Ammir results) Charles Physician) CREATININE, 0.9 Normal (applies [facility] SERUM mg/dL to non-numeric (Ammir results) Charles Physician) CALCIUM, SERUM 9.2 Normal (applies [facility] mg/dL to non-numeric (Ammir results) Charles Physician) TOTAL PROTEIN 6.8 g/dL Normal (applies [facility] to non-numeric (Ammir results) Charles Physician) Microalbumin 3.8 g/dL Normal (applies [facility] [Mass/time] in to non-numeric (Ammir Urine collected results) Charles for unspecified Physician) duration Globulin 3.0 gldl Normal (applies [facility] [Mass/time] in to non-numeric (Ammir 24 hour Urine results) Charles Physician) A/G RATIO 1.27 Normal (applies [facility] g/dl to non-numeric (Ammir results) Charles Physician) BILIRUBIN, TOTAL 0.1 Below low normal [facility] mg/dL (Ammir Charles Physician) ALKALINE 75 U/L Normal (applies [facility] PHOSPHATASE, ALP to non-numeric (Ammir results) Charles Physician) ALT (SGPT) 11 U/L Normal (applies [facility] to non-numeric (Ammir results) Charles Physician) AST 16 U/L Normal (applies [facility] to non-numeric (Ammir results) Charles Physician) EGFR NON AFR 72 Above high normal [facility] SUDANESE mL/min/1 (Ammir .73m2 Charles Physician) EGFR AFR 87 Above high normal [facility] SUDANESE mL/min/1 (Ammir .73m2 Charles Physician) ID Date Data Source [id number] 06/29/2016 12:00:00 AM EDT [facility] (Ammir Charles Physician) Name Value Range Interpretation Description Data Sup porting Code Source(s) Document(s ) Cholesterol 153 Normal (applies [facility] [Moles/volume] mg/dL to non-numeric (Ammir in Pericardial results) Charles fluid Physician) LDL CALCULATION 86.4 Normal (applies [facility] mg/dL to non-numeric (Ammir results) Charles Physician) CHOL/HDL RATIO 2.94 Normal (applies [facility] ratio to non-numeric (Ammir results) Charles Physician) HDL CHOLESTEROL 52 mg/dL Above high normal [facility] (Ammir Charles Physician) VLDL CALCULATION 14.6 Normal (applies [facility] mg/dl to non-numeric (Ammir results) Charles Physician) TRIGLYCERIDES 73 mg/dL Normal (applies [facility] to non-numeric (Ammir results) Charles Physician) ID Date Data Source [id number] 06/29/2016 12:00:00 AM EDT [facility] (Ammir Charles Physician) Name Value Range Interpretation Description Data Sup porting Code Source(s) Document(s ) T3 FREE 2.4 Normal (applies [facility] TRIIODOTHYRONINE pg/mL to non-numeric (Ammir results) Charles Physician) ID Date Data Source [id number] 06/29/2016 12:00:00 AM EDT [facility] (Ammir Charles Physician) Name Value Range Interpretation Description Data Sup porting Code Source(s) Document(s ) T4 TOTAL 5.9 ug/dL Normal (applies to [facility] (Amm ir THYROXINE non-numeric Charles results) Physician) ID Date Data Source [id number] 06/29/2016 12:00:00 AM EDT [facility] (Ammir Charles Physician) Name Value Range Interpretation Code Description Data Faiza rce(s) Supporting Document(s ) T3 TOTAL 91 ng/dL Normal (applies to [facility] (Amm ir non-numeric Charles results) Physician) ID Date Data Source [id number] 06/29/2016 12:00:00 AM EDT [facility] (Ammir Charles Physician) Name Value Range Interpretation Description Data Sup porting Code Source(s) Document(s ) T4 TOTAL 5.9 ug/dL Normal (applies to [facility] (Amm ir THYROXINE non-numeric Charles results) Physician) ID Date Data Source [id number] 06/29/2016 12:00:00 AM EDT [facility] (Ammir Charles Physician) Name Value Range Interpretation Code Description Data Faiza rce(s) Supporting Document(s ) T3 TOTAL 91 ng/dL Normal (applies to [facility] (Amm ir non-numeric Charles results) Physician) ID Date Data Source [id number] 06/29/2016 12:00:00 AM EDT [facility] (Ammir Charles Physician) Name Value Range Interpretation Description Data Sup porting Code Source(s) Document(s ) VITAMIN D 58.8 Normal (applies to [facility] (Amm ir 1.25 pg/mL non-numeric Charles results) Physician) ID Date Data Source [id number] 06/29/2016 12:00:00 AM EDT [facility] (Ammir Charles Physician) Name Value Range Interpretation Description Data Sup porting Code Source(s) Document(s ) FOLATE SERUM 13.4 Above high normal [facility] (A mmir ng/mL Charles Physician) VITAMIN B12 676 pg/mL Normal (applies to [facility] (A mmir non-numeric Charles results) Physician) ID Date Data Source [id number] 06/29/2016 12:00:00 AM EDT [facility] (Ammir Charles Physician) Name Value Range Interpretation Description Data Sup porting Code Source(s) Document(s ) T4 FREE, 0.88 Below low normal [facility] THYROXINE ng/dL (Ammir Charles Physician) TSH,3RD 1.588 Normal (applies to [facility] GENERATION uIU/mL non-numeric (Ammir results) Charles Physician) ID Date Data Source [id number] 06/29/2016 12:00:00 AM EDT [facility] (Ammir Charles Physician) Name Value Range Interpretation Description Data Sup porting Code Source(s) Document(s ) HEPATITIS A NONREACTIVE Normal (applies [facility] AB to non-numeric (Ammir results) Charles Physician) ID Date Data Source [id number] 06/29/2016 12:00:00 AM EDT [facility] (Ammir Charles Physician) Name Value Range Interpretation Description Data Sup porting Code Source(s) Document(s ) HEPATITIS BS NONREACTIVE Normal (applies [facility] AG SCREEN to non-numeric (Ammir results) Charles Physician) ID Date Data Source [id number] 06/29/2016 12:00:00 AM EDT [facility] (Ammir Charles Physician) Name Value Range Interpretation Code Description Data Faiza rce(s) Supporting Document(s ) HBeAB NEGATIVE Normal (applies to [facility] (Amm ir non-numeric results) Charles Physician) ID Date Data Source [id number] 06/29/2016 12:00:00 AM EDT [facility] (Ammir Charles Physician) Name Value Range Interpretation Description Data Sup porting Code Source(s) Document(s ) HEPATITIS C NONREACTIVE Normal (applies [facility] AB QL to non-numeric (Ammir results) Charles Physician) ID Date Data Source [id number] 06/29/2016 12:00:00 AM EDT [facility] (Ammir Charles Physician) Name Value Range Interpretation Description Data Sup porting Code Source(s) Document(s ) HEPATITIS B NONREACTIVE Normal (applies [facility] CORE AB QL to non-numeric (Ammir results) Charles Physician) ID Date Data Source [id number] 06/29/2016 12:00:00 AM EDT [facility] (Ammir Charles Physician) Name Value Range Interpretation Description Data Sup porting Code Source(s) Document(s ) HEPATITIS B 97.07 Normal (applies to [facility] (A mmir SURFACE AB (REACTIVE non-numeric Charles ) results) Physician) ID Date Data Source [id number] 06/29/2016 12:00:00 AM EDT [facility] ([facility]mmir [facility] Physician) Name Value Range Interpretation Description Data Sup porting Code Source(s) Document(s ) HEPATITIS BE NONREACTIVE Normal (applies [facility] AG to non-numeric (Ammir results) [facility] Physician) ID Date Data Source [id number] 06/29/2016 12:00:00 AM EDT [facility] ([facility]) Name Value Range Interpretation Description Data Sup porting Code Source(s) Document(s ) Hemoglobin A1c 5.6 % Normal (applies to [facility] (Ammir in Blood non-numeric Charles results) Physician) ID Date Data Source [id number] 06/29/2016 12:00:00 AM EDT [facility] ([facility]ician) Name Value Range Interpretation Code Description Data Supporting Source(s) Document(s ) GLYCOMARK 16.56 Normal (applies to [facility] (Amm ir ug/mL non-numeric Charles results) Physician) ID Date Data Source [id number] 06/29/2016 12:00:00 AM EDT [facility] ([facility] Physician) Name Value Range Interpretation Description Data Sup porting Code Source(s) Document(s ) WBC 5.42 Normal (applies to [facility] 10(3)/uL non-numeric (Ammir results) [facility] Physician) RBC 3.93 Normal (applies to [facility] 10(6)/uL non-numeric (Ammir results) [facility] Physician) Hemoglobin 10.2 g/dL Below low normal [facility] [Mass/volume] (Ammir in Mixed Charles venous blood Physician) by Oximetry Hematocrit 33.6 % Below low normal [facility] [Pure volume (Ammir fraction] of Charles Blood by Physician) Automated count MCV 85.5 fL Normal (applies to [facility] non-numeric (Ammir results) [facility] Physician) MCH 26.0 pg Normal (applies to [facility] non-numeric (Ammir results) [facility] Physician) MCHC 30.4 g/dL Below low normal [facility] (Ammir Charles Physician) PLT 242 Normal (applies to [facility] 10(3)/uL non-numeric (Ammir results) Charles Physician) RDWSD 43.5 fL Normal (applies to [facility] non-numeric (Ammir results) Charles Physician) RDWCV 14.1 % Normal (applies to [facility] non-numeric (Ammir results) [facility] Physician) MPV 11.2 fL Normal (applies to [facility] non-numeric (Ammir results) [facility] Physician) NE# 2.13 Normal (applies to [facility] 10(3)/uL non-numeric (Ammir results) [facility] Physician) LY# 2.43 Normal (applies to [facility] 10(3)/uL non-numeric (Ammir results) [facility] Physician) EO# 0.16 Normal (applies to [facility] 10(3)/uL non-numeric (Ammir results) [facility] Physician) MO# 0.62 Normal (applies to [facility] 10(3)/uL non-numeric (Ammir results) Charles Physician) BA# 0.07 Normal (applies to [facility] 10(3)/uL non-numeric (Ammir results) Charles Physician) IG# 0.01 Normal (applies to [facility] 10(3)/uL non-numeric (Ammir results) Charles Physician) NE% 39.3 % Normal (applies to [facility] non-numeric (Ammir results) Charles Physician) LY% 44.8 % Normal (applies to [facility] non-numeric (Ammir results) Charles Physician) MO% 11.4 % Normal (applies to [facility] non-numeric (Ammir results) Charles Physician) EO% 3.0 % Normal (applies to [facility] non-numeric (Ammir results) Charles Physician) BA% 1.3 % Normal (applies to [facility] non-numeric (Ammir results) [facility] Physician) IG% 0.2 % Normal (applies to [facility] non-numeric (Ammir results) [facility] Physician) ID Date Data Source [id number] 06/29/2016 12:00:00 AM EDT [facility] ([facility] Physician) Name Value Range Interpretation Description Data Sup porting Code Source(s) Document(s ) GLUCOSE 83 mg/dL Normal (applies [facility] NONFASTING,SERUM to non-numeric (Ammir results) Charles Physician) SODIUM, SERUM 140 Normal (applies [facility] mEq/L to non-numeric (Ammir results) Charles Physician) POTASSIUM, SERUM 4.2 Normal (applies [facility] mEq/L to non-numeric (Ammir results) Charles Physician) CHLORIDE, SERUM 111 Above high normal [facility] mEq/L (Ammir Charles Physician) Carbon dioxide 23 mEq/L Normal (applies [facility] [VFr/PPres] in to non-numeric (Ammir Gas delivery results) Charles system Physician) Anion gap in 10.2 Normal (applies [facility] Body fluid mEq/L to non-numeric (Ammir results) Charles Physician) BLOOD UREA 11 mg/dL Normal (applies [facility] NITROGEN to non-numeric (Ammir results) Charles Physician) CREATININE, 0.9 Normal (applies [facility] SERUM mg/dL to non-numeric (Ammir results) Charles Physician) CALCIUM, SERUM 9.2 Normal (applies [facility] mg/dL to non-numeric (Ammir results) Charles Physician) TOTAL PROTEIN 6.8 g/dL Normal (applies [facility] to non-numeric (Ammir results) Charles Physician) Microalbumin 3.8 g/dL Normal (applies [facility] [Mass/time] in to non-numeric (Ammir Urine collected results) Charles for unspecified Physician) duration Globulin 3.0 gldl Normal (applies [facility] [Mass/time] in to non-numeric (Ammir 24 hour Urine results) Charles Physician) A/G RATIO 1.27 Normal (applies [facility] g/dl to non-numeric (Ammir results) Charles Physician) BILIRUBIN, TOTAL 0.1 Below low normal [facility] mg/dL (Ammir Charles Physician) ALKALINE 75 U/L Normal (applies [facility] PHOSPHATASE, ALP to non-numeric (Ammir results) Charles Physician) ALT (SGPT) 11 U/L Normal (applies [facility] to non-numeric (Ammir results) Charles Physician) AST 16 U/L Normal (applies [facility] to non-numeric (Ammir results) Charles Physician) EGFR NON AFR 72 Above high normal [facility] SUDANESE mL/min/1 (Ammir .73m2 Charles Physician) EGFR AFR 87 Above high normal [facility] SUDANESE mL/min/1 (Ammir .73m2 Charles Physician) ID Date Data Source [id number] 06/29/2016 12:00:00 AM EDT [facility] ([facility] Physician) Name Value Range Interpretation Description Data Sup porting Code Source(s) Document(s ) Cholesterol 153 Normal (applies [facility] [Moles/volume] mg/dL to non-numeric (Ammir in Pericardial results) Charles fluid Physician) LDL CALCULATION 86.4 Normal (applies [facility] mg/dL to non-numeric (Ammir results) Charles Physician) CHOL/HDL RATIO 2.94 Normal (applies [facility] ratio to non-numeric (Ammir results) Charles Physician) HDL CHOLESTEROL 52 mg/dL Above high normal [facility] ([facility]mm[facility] Charles Physician) VLDL CALCULATION 14.6 Normal (applies [facility] mg/dl to non-numeric (Ammir results) Charles Physician) TRIGLYCERIDES 73 mg/dL Normal (applies [facility] to non-numeric (Ammir results) Charles Physician) ID Date Data Source [id number] 06/29/2016 12:00:00 AM EDT [facility] ([facility] Physician) Name Value Range Interpretation Description Data Sup porting Code Source(s) Document(s ) T3 FREE 2.4 Normal (applies [facility] TRIIODOTHYRONINE pg/mL to non-numeric (Ammir results) [facility] Physician) ID Date Data Source [id number] 06/29/2016 12:00:00 AM EDT [facility] ([facility] Physician) Name Value Range Interpretation Description Data Sup porting Code Source(s) Document(s ) FOLATE SERUM 13.4 Above high normal [facility] (A mmir ng/mL [facility] Physician) VITAMIN B12 676 pg/mL Normal (applies to [facility] (A mmir non-numeric Charles results) Physician) ID Date Data Source [id number] 06/29/2016 12:00:00 AM EDT [facility] ([facility] Physician) Name Value Range Interpretation Description Data Sup porting Code Source(s) Document(s ) T4 FREE, 0.88 Below low normal [facility] THYROXINE ng/dL (Ammir Charles Physician) TSH,3RD 1.588 Normal (applies to [facility] GENERATION uIU/mL non-numeric (Ammir results) Charles Physician) ID Date Data Source [id number] 06/29/2016 12:00:00 AM EDT [facility] ([facility]mm[facility] Physician) Name Value Range Interpretation Description Data Sup porting Code Source(s) Document(s ) HEPATITIS A NONREACTIVE Normal (applies [facility] AB to non-numeric (Ammir results) [facility] Physician) ID Date Data Source [id number] 06/29/2016 12:00:00 AM EDT [facility] ([facility] Physician) Name Value Range Interpretation Description Data Sup porting Code Source(s) Document(s ) HEPATITIS BS NONREACTIVE Normal (applies [facility] AG SCREEN to non-numeric (Ammir results) [facility] Physician) ID Date Data Source [id number] 06/29/2016 12:00:00 AM EDT [facility] ([facility] Physician) Name Value Range Interpretation Code Description Data Faiza rce(s) Supporting Document(s ) HBeAB NEGATIVE Normal (applies to [facility] (Amm ir non-numeric results) Charles Physician) ID Date Data Source [id number] 06/29/2016 12:00:00 AM EDT [facility] ([facility] Physician) Name Value Range Interpretation Description Data Sup porting Code Source(s) Document(s ) HEPATITIS C NONREACTIVE Normal (applies [facility] AB QL to non-numeric (Ammir results) [facility] Physician) ID Date Data Source [id number] 06/29/2016 12:00:00 AM EDT [facility] ([facility] Physician) Name Value Range Interpretation Description Data Sup porting Code Source(s) Document(s ) HEPATITIS B NONREACTIVE Normal (applies [facility] CORE AB QL to non-numeric (Ammir results) [facility] Physician) ID Date Data Source [id number] 06/29/2016 12:00:00 AM EDT [facility] ([facility] Physician) Name Value Range Interpretation Description Data Sup porting Code Source(s) Document(s ) HEPATITIS B 97.07 Normal (applies to [facility] (A mmir SURFACE AB (REACTIVE non-numeric Charles ) results) Physician) ID Date Data Source [id number] 06/29/2016 12:00:00 AM EDT [facility] ([facility] Physician) Name Value Range Interpretation Description Data Sup porting Code Source(s) Document(s ) HEPATITIS BE NONREACTIVE Normal (applies [facility] AG to non-numeric (Ammir results) [facility] Physician) ID Date Data Source [id number] 06/29/2016 12:00:00 AM EDT [facility] ([facility] Physician) Name Value Range Interpretation Description Data Sup porting Code Source(s) Document(s ) Hemoglobin A1c 5.6 % Normal (applies to [facility] (Ammir in Blood non-numeric Charles results) Physician) ID Date Data Source [id number] 06/29/2016 12:00:00 AM EDT [facility] ([facility] Physician) Name Value Range Interpretation Code Description Data Supporting Source(s) Document(s ) GLYCOMARK 16.56 Normal (applies to [facility] (Amm ir ug/mL non-numeric Charles results) Physician) ID Date Data Source [id number] 06/29/2016 12:00:00 AM EDT [facility] ([facility] Physician) Name Value Range Interpretation Description Data Sup porting Code Source(s) Document(s ) WBC 5.42 Normal (applies to [facility] 10(3)/uL non-numeric (Ammir results) [facility] Physician) RBC 3.93 Normal (applies to [facility] 10(6)/uL non-numeric (Ammir results) [place] Physician) Hemoglobin 10.2 g/dL Below low normal [facility] [Mass/volume] (Ammir in Mixed [facility] venous blood Physician) by Oximetry Hematocrit 33.6 % Below low normal [facility] [Pure volume (Ammir fraction] of [place] Blood by Physician) Automated count MCV 85.5 fL Normal (applies to [facility] non-numeric (Ammir results) Charles Physician) MCH 26.0 pg Normal (applies to [facility] non-numeric (Ammir results) Charles Physician) MCHC 30.4 g/dL Below low normal [facility] (Ammir Charles Physician) PLT 242 Normal (applies to [facility] 10(3)/uL non-numeric (Ammir results) Charles Physician) RDWSD 43.5 fL Normal (applies to [facility] non-numeric (Ammir results) Charles Physician) RDWCV 14.1 % Normal (applies to [facility] non-numeric (Ammir results) Charles Physician) MPV 11.2 fL Normal (applies to [facility] non-numeric (Ammir results) Charles Physician) NE# 2.13 Normal (applies to [facility] 10(3)/uL non-numeric (Ammir results) Charles Physician) LY# 2.43 Normal (applies to [facility] 10(3)/uL non-numeric (Ammir results) [facility] Physician) MO# 0.62 Normal (applies to [facility] 10(3)/uL non-numeric (Ammir results) Charles Physician) EO# 0.16 Normal (applies to [facility] 10(3)/uL non-numeric (Ammir results) Charles Physician) BA# 0.07 Normal (applies to [facility] 10(3)/uL non-numeric (Ammir results) Charles Physician) IG# 0.01 Normal (applies to [facility] 10(3)/uL non-numeric (Ammir results) Charles Physician) NE% 39.3 % Normal (applies to [facility] non-numeric (Ammir results) Charles Physician) LY% 44.8 % Normal (applies to [facility] non-numeric (Ammir results) Charles Physician) MO% 11.4 % Normal (applies to [facility] non-numeric (Ammir results) Charles Physician) EO% 3.0 % Normal (applies to [facility] non-numeric (Ammir results) Charles Physician) BA% 1.3 % Normal (applies to [facility] non-numeric (Ammir results) Charles Physician) IG% 0.2 % Normal (applies to [facility] non-numeric (Ammir results) Charles Physician) ID Date Data Source [id number] 06/29/2016 12:00:00 AM EDT [facility] ([facility] Physician) Name Value Range Interpretation Description Data Sup porting Code Source(s) Document(s ) GLUCOSE 83 mg/dL Normal (applies [facility] NONFASTING,SERUM to non-numeric (Ammir results) [facility] Physician) SODIUM, SERUM 140 Normal (applies [facility] mEq/L to non-numeric (Ammir results) Charles Physician) POTASSIUM, SERUM 4.2 Normal (applies [facility] mEq/L to non-numeric (Ammir results) Charles Physician) CHLORIDE, SERUM 111 Above high normal [facility] mEq/L (Ammir Charles Physician) Carbon dioxide 23 mEq/L Normal (applies [facility] [VFr/PPres] in to non-numeric (Ammir Gas delivery results) Charles system Physician) Anion gap in 10.2 Normal (applies [facility] Body fluid mEq/L to non-numeric (Ammir results) Charles Physician) BLOOD UREA 11 mg/dL Normal (applies [facility] NITROGEN to non-numeric (Ammir results) Charles Physician) CREATININE, 0.9 Normal (applies [facility] SERUM mg/dL to non-numeric (Ammir results) Charles Physician) CALCIUM, SERUM 9.2 Normal (applies [facility] mg/dL to non-numeric (Ammir results) Charles Physician) TOTAL PROTEIN 6.8 g/dL Normal (applies [facility] to non-numeric (Ammir results) Charles Physician) Microalbumin 3.8 g/dL Normal (applies [facility] [Mass/time] in to non-numeric (Ammir Urine collected results) Charles for unspecified Physician) duration Globulin 3.0 gldl Normal (applies [facility] [Mass/time] in to non-numeric (Ammir 24 hour Urine results) Charles Physician) A/G RATIO 1.27 Normal (applies [facility] g/dl to non-numeric (Ammir results) Charles Physician) BILIRUBIN, TOTAL 0.1 Below low normal [facility] mg/dL (Ammir Charles Physician) ALKALINE 75 U/L Normal (applies [facility] PHOSPHATASE, ALP to non-numeric (Ammir results) Charles Physician) ALT (SGPT) 11 U/L Normal (applies [facility] to non-numeric (Ammir results) Charles Physician) AST 16 U/L Normal (applies [facility] to non-numeric (Ammir results) Charles Physician) EGFR NON AFR 72 Above high normal [facility] SUDANESE mL/min/1 (Ammir .73m2 Charles Physician) EGFR AFR 87 Above high normal [facility] SUDANESE mL/min/1 (Ammir .73m2 Charles Physician) ID Date Data Source [id number] 06/29/2016 12:00:00 AM EDT [facility] ([facility]mm[facility] Physician) Name Value Range Interpretation Description Data Sup porting Code Source(s) Document(s ) Cholesterol 153 Normal (applies [facility] [Moles/volume] mg/dL to non-numeric (Ammir in Pericardial results) Charles fluid Physician) LDL CALCULATION 86.4 Normal (applies [facility] mg/dL to non-numeric (Ammir results) Charles Physician) CHOL/HDL RATIO 2.94 Normal (applies [facility] ratio to non-numeric (Ammir results) Charles Physician) HDL CHOLESTEROL 52 mg/dL Above high normal [facility] (Ammir Charles Physician) VLDL CALCULATION 14.6 Normal (applies [facility] mg/dl to non-numeric (Ammir results) Charles Physician) TRIGLYCERIDES 73 mg/dL Normal (applies [facility] to non-numeric (Ammir results) Charles Physician) ID Date Data Source [id number] 06/29/2016 12:00:00 AM EDT [facility] (Ammir [facility] Physician) Name Value Range Interpretation Description Data Sup porting Code Source(s) Document(s ) T3 FREE 2.4 Normal (applies [facility] TRIIODOTHYRONINE pg/mL to non-numeric (Ammir results) Charles Physician) ID Date Data Source [id number] 06/29/2016 12:00:00 AM EDT [facility] (Ammir [facility] Physician) Name Value Range Interpretation Description Data Sup porting Code Source(s) Document(s ) VITAMIN D 58.8 Normal (applies to [facility] (Amm ir 1.25 pg/mL non-numeric Charles results) Physician) ID Date Data Source [id number] 06/29/2016 12:00:00 AM EDT [facility] (Ammir [facility] Physician) Name Value Range Interpretation Description Data Sup porting Code Source(s) Document(s ) FOLATE SERUM 13.4 Above high normal [facility] (A mmir ng/mL Charles Physician) VITAMIN B12 676 pg/mL Normal (applies to [facility] (A mmir non-numeric Charles results) Physician) ID Date Data Source [id number] 06/29/2016 12:00:00 AM EDT [facility] (Ammir Charles Physician) Name Value Range Interpretation Description Data Sup porting Code Source(s) Document(s ) T4 FREE, 0.88 Below low normal [facility] THYROXINE ng/dL (Ammir Charles Physician) TSH,3RD 1.588 Normal (applies to [facility] GENERATION uIU/mL non-numeric (Ammir results) Charles Physician) ID Date Data Source [id number] 06/29/2016 12:00:00 AM EDT [facility] (Ammir Charles Physician) Name Value Range Interpretation Description Data Sup porting Code Source(s) Document(s ) HEPATITIS A NONREACTIVE Normal (applies [facility] AB to non-numeric (Ammir results) Charles Physician) ID Date Data Source [id number] 06/29/2016 12:00:00 AM EDT [facility] (Ammir Charles Physician) Name Value Range Interpretation Description Data Sup porting Code Source(s) Document(s ) HEPATITIS BS NONREACTIVE Normal (applies [facility] AG SCREEN to non-numeric (Ammir results) Charles Physician) ID Date Data Source [id number] 06/29/2016 12:00:00 AM EDT [facility] (Ammir Charles Physician) Name Value Range Interpretation Code Description Data Faiza rce(s) Supporting Document(s ) HBeAB NEGATIVE Normal (applies to [facility] (Amm ir non-numeric results) Charles Physician) ID Date Data Source [id number] 06/29/2016 12:00:00 AM EDT [facility] (Ammir Charles Physician) Name Value Range Interpretation Description Data Sup porting Code Source(s) Document(s ) HEPATITIS C NONREACTIVE Normal (applies [facility] AB QL to non-numeric (Ammir results) Charles Physician) ID Date Data Source [id number] 06/29/2016 12:00:00 AM EDT [facility] (Ammir Charles Physician) Name Value Range Interpretation Description Data Sup porting Code Source(s) Document(s ) HEPATITIS B NONREACTIVE Normal (applies [facility] CORE AB QL to non-numeric (Ammir results) Charles Physician) ID Date Data Source [id number] 06/29/2016 12:00:00 AM EDT [facility] (Ammir Charles Physician) Name Value Range Interpretation Description Data Sup porting Code Source(s) Document(s ) HEPATITIS B 97.07 Normal (applies to [facility] (A mmir SURFACE AB (REACTIVE non-numeric Charles ) results) Physician) ID Date Data Source [id number] 06/29/2016 12:00:00 AM EDT [facility] (Ammir Charles Physician) Name Value Range Interpretation Description Data Sup porting Code Source(s) Document(s ) HEPATITIS BE NONREACTIVE Normal (applies [facility] AG to non-numeric (Ammir results) [facility] Physician) ID Date Data Source [id number] 06/29/2016 12:00:00 AM EDT [facility] (Ammir Charles Physician) Name Value Range Interpretation Description Data Sup porting Code Source(s) Document(s ) Hemoglobin A1c 5.6 % Normal (applies to [facility] (Ammir in Blood non-numeric Charles results) Physician) ID Date Data Source [id number] 06/29/2016 12:00:00 AM EDT [facility] (Ammir Charles Physician) Name Value Range Interpretation Code Description Data Supporting Source(s) Document(s ) GLYCOMARK 16.56 Normal (applies to [facility] (Amm ir ug/mL non-numeric Charles results) Physician) ID Date Data Source [id number] 06/29/2016 12:00:00 AM EDT [facility] (Ammir Charles Physician) Name Value Range Interpretation Description Data Sup porting Code Source(s) Document(s ) WBC 5.42 Normal (applies to [facility] 10(3)/uL non-numeric (Ammir results) Charles Physician) RBC 3.93 Normal (applies to [facility] 10(6)/uL non-numeric (Ammir results) Charles Physician) Hemoglobin 10.2 g/dL Below low normal [facility] [Mass/volume] (Ammir in Mixed Charles venous blood Physician) by Oximetry Hematocrit 33.6 % Below low normal [facility] [Pure volume (Ammir fraction] of [facility] Blood by Physician) Automated count MCV 85.5 fL Normal (applies to [facility] non-numeric (Ammir results) Charles Physician) MCH 26.0 pg Normal (applies to [facility] non-numeric (Ammir results) Charles Physician) MCHC 30.4 g/dL Below low normal [facility] (Ammir Charles Physician) PLT 242 Normal (applies to [facility] 10(3)/uL non-numeric (Ammir results) Charles Physician) RDWSD 43.5 fL Normal (applies to [facility] non-numeric (Ammir results) Charles Physician) RDWCV 14.1 % Normal (applies to [facility] non-numeric (Ammir results) Charles Physician) MPV 11.2 fL Normal (applies to [facility] non-numeric (Ammir results) Charles Physician) NE# 2.13 Normal (applies to [facility] 10(3)/uL non-numeric (Ammir results) Charles Physician) LY# 2.43 Normal (applies to [facility] 10(3)/uL non-numeric (Ammir results) Charles Physician) MO# 0.62 Normal (applies to [facility] 10(3)/uL non-numeric (Ammir results) Charles Physician) EO# 0.16 Normal (applies to [facility] 10(3)/uL non-numeric (Ammir results) Charles Physician) BA# 0.07 Normal (applies to [facility] 10(3)/uL non-numeric (Ammir results) Charles Physician) IG# 0.01 Normal (applies to [facility] 10(3)/uL non-numeric (Ammir results) Charles Physician) NE% 39.3 % Normal (applies to [facility] non-numeric (Ammir results) Charles Physician) LY% 44.8 % Normal (applies to [facility] non-numeric (Ammir results) Charles Physician) MO% 11.4 % Normal (applies to [facility] non-numeric (Ammir results) Charles Physician) EO% 3.0 % Normal (applies to [facility] non-numeric (Ammir results) Charles Physician) BA% 1.3 % Normal (applies to [facility] non-numeric (Ammir results) Charles Physician) IG% 0.2 % Normal (applies to [facility] non-numeric (Ammir results) Charles Physician) ID Date Data Source [id number] 06/29/2016 12:00:00 AM EDT [facility] (Ammir Charles Physician) Name Value Range Interpretation Description Data Sup porting Code Source(s) Document(s ) GLUCOSE 83 mg/dL Normal (applies [facility] NONFASTING,SERUM to non-numeric (Ammir results) Charles Physician) SODIUM, SERUM 140 Normal (applies [facility] mEq/L to non-numeric (Ammir results) Charles Physician) POTASSIUM, SERUM 4.2 Normal (applies [facility] mEq/L to non-numeric (Ammir results) Charles Physician) CHLORIDE, SERUM 111 Above high normal [facility] mEq/L (Ammir Charles Physician) Carbon dioxide 23 mEq/L Normal (applies [facility] [VFr/PPres] in to non-numeric (Ammir Gas delivery results) Charles system Physician) Anion gap in 10.2 Normal (applies [facility] Body fluid mEq/L to non-numeric (Ammir results) Charles Physician) BLOOD UREA 11 mg/dL Normal (applies [facility] NITROGEN to non-numeric (Ammir results) Charles Physician) CREATININE, 0.9 Normal (applies [facility] SERUM mg/dL to non-numeric (Ammir results) Charles Physician) CALCIUM, SERUM 9.2 Normal (applies [facility] mg/dL to non-numeric (Ammir results) Charles Physician) TOTAL PROTEIN 6.8 g/dL Normal (applies [facility] to non-numeric (Ammir results) Charles Physician) Microalbumin 3.8 g/dL Normal (applies [facility] [Mass/time] in to non-numeric (Ammir Urine collected results) Charles for unspecified Physician) duration Globulin 3.0 gldl Normal (applies [facility] [Mass/time] in to non-numeric (Ammir 24 hour Urine results) Charles Physician) A/G RATIO 1.27 Normal (applies [facility] g/dl to non-numeric (Ammir results) Charles Physician) BILIRUBIN, TOTAL 0.1 Below low normal [facility] mg/dL (Ammir Charles Physician) ALKALINE 75 U/L Normal (applies [facility] PHOSPHATASE, ALP to non-numeric (Ammir results) Charles Physician) ALT (SGPT) 11 U/L Normal (applies [facility] to non-numeric (Ammir results) Charles Physician) AST 16 U/L Normal (applies [facility] to non-numeric (Ammir results) Charles Physician) EGFR AFR 87 Above high normal [facility] SUDANESE mL/min/1 (Ammir .73m2 Charles Physician) EGFR NON AFR 72 Above high normal [facility] SUDANESE mL/min/1 (Ammir .73m2 Charles Physician) ID Date Data Source [id number] 06/29/2016 12:00:00 AM EDT [facility] (Ammir Charles Physician) Name Value Range Interpretation Description Data Sup porting Code Source(s) Document(s ) Cholesterol 153 Normal (applies [facility] [Moles/volume] mg/dL to non-numeric (Ammir in Pericardial results) Charles fluid Physician) LDL CALCULATION 86.4 Normal (applies [facility] mg/dL to non-numeric (Ammir results) Charles Physician) CHOL/HDL RATIO 2.94 Normal (applies [facility] ratio to non-numeric (Ammir results) Charles Physician) HDL CHOLESTEROL 52 mg/dL Above high normal [facility] (Ammir Charles Physician) VLDL CALCULATION 14.6 Normal (applies [facility] mg/dl to non-numeric (Ammir results) Charles Physician) TRIGLYCERIDES 73 mg/dL Normal (applies [facility] to non-numeric (Ammir results) [facility] Physician) ID Date Data Source [id number] 06/29/2016 12:00:00 AM EDT [facility] (Ammir Charles Physician) Name Value Range Interpretation Description Data Sup porting Code Source(s) Document(s ) T3 FREE 2.4 Normal (applies [facility] TRIIODOTHYRONINE pg/mL to non-numeric (Ammir results) [facility] Physician) ID Date Data Source [id number] 06/29/2016 12:00:00 AM EDT [facility] (Ammir [facility] Physician) Name Value Range Interpretation Description Data Sup porting Code Source(s) Document(s ) T4 TOTAL 5.9 ug/dL Normal (applies to [facility] (Amm ir THYROXINE non-numeric Charles results) Physician) ID Date Data Source [id number] 06/29/2016 12:00:00 AM EDT [facility] (Ammir Charles Physician) Name Value Range Interpretation Code Description Data Faiza rce(s) Supporting Document(s ) T3 TOTAL 91 ng/dL Normal (applies to [facility] (Amm ir non-numeric Charles results) Physician) ID Date Data Source [id number] 06/29/2016 12:00:00 AM EDT [facility] (Ammir Charles Physician) Name Value Range Interpretation Description Data Sup porting Code Source(s) Document(s ) VITAMIN D 58.8 Normal (applies to [facility] (Amm ir 1.25 pg/mL non-numeric Charles results) Physician) ID Date Data Source [id number] 06/29/2016 12:00:00 AM EDT [facility] (Ammir Charles Physician) Name Value Range Interpretation Description Data Sup porting Code Source(s) Document(s ) T4 TOTAL 5.9 ug/dL Normal (applies to [facility] (Amm ir THYROXINE non-numeric Charles results) Physician) ID Date Data Source [id number] 06/29/2016 12:00:00 AM EDT [facility] (Ammir Cahrles Physician) Name Value Range Interpretation Description Data Sup porting Code Source(s) Document(s ) HEPATITIS A NONREACTIVE Normal (applies [facility] AB to non-numeric (Ammir results) Charles Physician) ID Date Data Source [id number] 06/29/2016 12:00:00 AM EDT [facility] (Ammir Charles Physician) Name Value Range Interpretation Description Data Sup porting Code Source(s) Document(s ) OCCULT NEGATIVE Normal (applies [facility] BLOOD, STOOL to non-numeric (Ammir SPC 2 results) Charles Physician) OCCULT NEGATIVE Normal (applies [facility] BLOOD, STOOL to non-numeric (Ammir SPC 3 results) Charles Physician) HEPATITIS BS NONREACTIVE Normal (applies [facility] AG SCREEN to non-numeric (Ammir results) Charles Physician) ID Date Data Source [id number] 06/29/2016 12:00:00 AM EDT [facility] (Ammir Charles Physician) Name Value Range Interpretation Code Description Data Faiza rce(s) Supporting Document(s ) HBeAB NEGATIVE Normal (applies to [facility] (Amm ir non-numeric results) Charles Physician) ID Date Data Source [id number] 06/29/2016 12:00:00 AM EDT [facility] (Ammir Charles Physician) Name Value Range Interpretation Description Data Sup porting Code Source(s) Document(s ) BILIRUBIN, NEGATIVE Normal (applies [facility] TOTAL to non-numeric (Ammir results) Charles Physician) Ketones NEGATIVE Normal (applies [facility] [Presence] in to non-numeric (Ammir Blood by Tablet results) Charles Physician) Specific 1.023 SG Normal (applies [facility] gravity of units to non-numeric (Ammir Pericardial results) Charles fluid by Physician) Refractometry Blood NEGATIVE Normal (applies [facility] [Presence] in to non-numeric (Ammir Urine by Visual results) Charles Physician) pH of Lower 5 Ph units Normal (applies [facility] respiratory to non-numeric (Ammir specimen results) Charles Physician) Protein NEGATIVE Normal (applies [facility] [Mass/volume] to non-numeric (Ammir in Lower results) Charles respiratory Physician) specimen Urobilinogen 0-2.0 Normal (applies [facility] [Presence] in to non-numeric (Ammir Urine by results) Charles Automated test Physician) strip Nitrite NEGATIVE Normal (applies [facility] [Presence] in to non-numeric (Ammir Urine by Test results) Charles strip Physician) Leukocyte LARGE Normal (applies [facility] esterase to non-numeric (Ammir [Presence] in results) Charles Body fluid by Physician) Automated test strip Color of YELLOW Normal (applies [facility] Peritoneal to non-numeric (Ammir dialysis fluid results) Charles Physician) TRANSPARENCY SLIGHTLY-CLOU Normal (applies [facility] DY to non-numeric (Ammir results) Charles Physician) RBC`S 0-4 Normal (applies [facility] to non-numeric (Ammir results) Charles Physician) WBC`S >50 Above high [facility] normal (Ammir Charles Physician) SQUMAOUS FEW Normal (applies [facility] EPITHELIAL to non-numeric (Ammir results) Charles Physician) MUCOUS FEW Normal (applies [facility] to non-numeric (Ammir results) Charles Physician) HEPATITIS C AB NONREACTIVE Normal (applies [facility] QL to non-numeric (Ammir results) Charles Physician) ID Date Data Source [id number] 06/29/2016 12:00:00 AM EDT [facility] (Ammir Charles Physician) Name Value Range Interpretation Description Data Sup porting Code Source(s) Document(s ) HEPATITIS B NONREACTIVE Normal (applies [facility] CORE AB QL to non-numeric (Ammir results) Charles Physician) ID Date Data Source [id number] 06/29/2016 12:00:00 AM EDT [facility] (Ammir Charles Physician) Name Value Range Interpretation Description Data Sup porting Code Source(s) Document(s ) HEPATITIS B 97.07 Normal (applies to [facility] (A mmir SURFACE AB (REACTIVE non-numeric Charles ) results) Physician) ID Date Data Source [id number] 06/29/2016 12:00:00 AM EDT [facility] (Ammir Charles Physician) Name Value Range Interpretation Description Data Sup porting Code Source(s) Document(s ) HEPATITIS BE NONREACTIVE Normal (applies [facility] AG to non-numeric (Ammir results) Charles Physician) ID Date Data Source [id number] 06/29/2016 12:00:00 AM EDT [facility] (Ammir Charles Physician) Name Value Range Interpretation Description Data Sup porting Code Source(s) Document(s ) Hemoglobin A1c 5.6 % Normal (applies to [facility] (Ammir in Blood non-numeric Charles results) Physician) ID Date Data Source [id number] 06/29/2016 12:00:00 AM EDT [facility] (Ammir Charles Physician) Name Value Range Interpretation Code Description Data Supporting Source(s) Document(s ) GLYCOMARK 16.56 Normal (applies to [facility] (Amm ir ug/mL non-numeric Charles results) Physician) ID Date Data Source [id number] 06/29/2016 12:00:00 AM EDT [facility] (Ammir Charles Physician) Name Value Range Interpretation Description Data Sup porting Code Source(s) Document(s ) WBC 5.42 Normal (applies to [facility] 10(3)/uL non-numeric (Ammir results) Charles Physician) RBC 3.93 Normal (applies to [facility] 10(6)/uL non-numeric (Ammir results) Charles Physician) Hemoglobin 10.2 g/dL Below low normal [facility] [Mass/volume] (Ammir in Mixed Charles venous blood Physician) by Oximetry Hematocrit 33.6 % Below low normal [facility] [Pure volume (Ammir fraction] of Charles Blood by Physician) Automated count MCV 85.5 fL Normal (applies to [facility] non-numeric (Ammir results) Charles Physician) MCH 26.0 pg Normal (applies to [facility] non-numeric (Ammir results) Charles Physician) MCHC 30.4 g/dL Below low normal [facility] (Ammir Charles Physician) PLT 242 Normal (applies to [facility] 10(3)/uL non-numeric (Ammir results) Charles Physician) RDWSD 43.5 fL Normal (applies to [facility] non-numeric (Ammir results) Charles Physician) RDWCV 14.1 % Normal (applies to [facility] non-numeric (Ammir results) Charles Physician) MPV 11.2 fL Normal (applies to [facility] non-numeric (Ammir results) Charles Physician) NE# 2.13 Normal (applies to [facility] 10(3)/uL non-numeric (Ammir results) Charles Physician) LY# 2.43 Normal (applies to [facility] 10(3)/uL non-numeric (Ammir results) Charles Physician) MO# 0.62 Normal (applies to [facility] 10(3)/uL non-numeric (Ammir results) Charles Physician) EO# 0.16 Normal (applies to [facility] 10(3)/uL non-numeric (Ammir results) Charles Physician) BA# 0.07 Normal (applies to [facility] 10(3)/uL non-numeric (Ammir results) Charles Physician) IG# 0.01 Normal (applies to [facility] 10(3)/uL non-numeric (Ammir results) Charles Physician) NE% 39.3 % Normal (applies to [facility] non-numeric (Ammir results) Charles Physician) LY% 44.8 % Normal (applies to [facility] non-numeric (Ammir results) Charles Physician) MO% 11.4 % Normal (applies to [facility] non-numeric (Ammir results) Charles Physician) EO% 3.0 % Normal (applies to [facility] non-numeric (Ammir results) Charles Physician) BA% 1.3 % Normal (applies to [facility] non-numeric (Ammir results) Charles Physician) IG% 0.2 % Normal (applies to [facility] non-numeric (Ammir results) Charles Physician) ID Date Data Source [id number] 06/29/2016 12:00:00 AM EDT [facility] (Ammir Charles Physician) Name Value Range Interpretation Description Data Sup porting Code Source(s) Document(s ) GLUCOSE 83 mg/dL Normal (applies [facility] NONFASTING,SERUM to non-numeric (Ammir results) Charles Physician) SODIUM, SERUM 140 Normal (applies [facility] mEq/L to non-numeric (Ammir results) Charles Physician) POTASSIUM, SERUM 4.2 Normal (applies [facility] mEq/L to non-numeric (Ammir results) Charles Physician) CHLORIDE, SERUM 111 Above high normal [facility] mEq/L (Ammir Charles Physician) Carbon dioxide 23 mEq/L Normal (applies [facility] [VFr/PPres] in to non-numeric (Ammir Gas delivery results) Charles system Physician) Anion gap in 10.2 Normal (applies [facility] Body fluid mEq/L to non-numeric (Ammir results) Charles Physician) BLOOD UREA 11 mg/dL Normal (applies [facility] NITROGEN to non-numeric (Ammir results) Charles Physician) CREATININE, 0.9 Normal (applies [facility] SERUM mg/dL to non-numeric (Ammir results) Charles Physician) CALCIUM, SERUM 9.2 Normal (applies [facility] mg/dL to non-numeric (Ammir results) Charles Physician) TOTAL PROTEIN 6.8 g/dL Normal (applies [facility] to non-numeric (Ammir results) Charles Physician) Microalbumin 3.8 g/dL Normal (applies [facility] [Mass/time] in to non-numeric (Ammir Urine collected results) Charles for unspecified Physician) duration Globulin 3.0 gldl Normal (applies [facility] [Mass/time] in to non-numeric (Ammir 24 hour Urine results) Charles Physician) A/G RATIO 1.27 Normal (applies [facility] g/dl to non-numeric (Ammir results) Charles Physician) BILIRUBIN, TOTAL 0.1 Below low normal [facility] mg/dL (Ammir Charles Physician) ALKALINE 75 U/L Normal (applies [facility] PHOSPHATASE, ALP to non-numeric (Ammir results) Charles Physician) ALT (SGPT) 11 U/L Normal (applies [facility] to non-numeric (Ammir results) Charles Physician) AST 16 U/L Normal (applies [facility] to non-numeric (Ammir results) Charles Physician) EGFR NON AFR 72 Above high normal [facility] SUDANESE mL/min/1 (Ammir .73m2 Charles Physician) EGFR AFR 87 Above high normal [facility] SUDANESE mL/min/1 (Ammir .73m2 Charles Physician) ID Date Data Source [id number] 06/29/2016 12:00:00 AM EDT [facility] (Ammir Charles Physician) Name Value Range Interpretation Description Data Sup porting Code Source(s) Document(s ) Cholesterol 153 Normal (applies [facility] [Moles/volume] mg/dL to non-numeric (Ammir in Pericardial results) Charles fluid Physician) LDL CALCULATION 86.4 Normal (applies [facility] mg/dL to non-numeric (Ammir results) Charles Physician) CHOL/HDL RATIO 2.94 Normal (applies [facility] ratio to non-numeric (Ammir results) Charles Physician) HDL CHOLESTEROL 52 mg/dL Above high normal [facility] (Ammir Charles Physician) VLDL CALCULATION 14.6 Normal (applies [facility] mg/dl to non-numeric (Ammir results) Charles Physician) TRIGLYCERIDES 73 mg/dL Normal (applies [facility] to non-numeric (Ammir results) Charles Physician) ID Date Data Source [id number] 06/29/2016 12:00:00 AM EDT [facility] (Ammir Charles Physician) Name Value Range Interpretation Description Data Sup porting Code Source(s) Document(s ) SODIUM, SERUM 139 Normal (applies [facility] mEq/L to non-numeric (Ammir results) Charles Physician) POTASSIUM, SERUM 4.5 Normal (applies [facility] mEq/L to non-numeric (Ammir results) Charles Physician) CHLORIDE, SERUM 106 Normal (applies [facility] mEq/L to non-numeric (Ammir results) Charles Physician) Carbon dioxide 26 mEq/L Normal (applies [facility] [VFr/PPres] in Gas to non-numeric (Ammir delivery system results) Charles Physician) Anion gap in Body 11.5 Normal (applies [facility] fluid mEq/L to non-numeric (Ammir results) Charles Physician) BLOOD UREA NITROGEN 12 mg/dL Normal (applies [facility] EN to non-numeric (Ammir results) Charles Physician) CREATININE, SERUM 0.80 Normal (applies [facility] mg/dL to non-numeric (Ammir results) Charles Physician) CALCIUM, SERUM 9.6 Normal (applies [facility] mg/dL to non-numeric (Ammir results) Charles Physician) EGFR NON AFR 82 Above high [facility] SUDANESE mL/min/1 normal (Ammir .73m2 Charles Physician) EGFR AFR SUDANESE 99 Above high [facility] mL/min/1 normal (Ammir .73m2 Charles Physician) T3 FREE 2.4 Normal (applies [facility] TRIIODOTHYRONINE pg/mL to non-numeric (Ammir results) Charles Physician) ID Date Data Source [id number] 06/29/2016 12:00:00 AM EDT [facility] (Ammir Charles Physician) Name Value Range Interpretation Description Data Sup porting Code Source(s) Document(s ) T4 TOTAL 5.9 ug/dL Normal (applies to [facility] (Amm ir THYROXINE non-numeric Charles results) Physician) ID Date Data Source [id number] 06/29/2016 12:00:00 AM EDT [facility] (Ammir Charles Physician) Name Value Range Interpretation Code Description Data Faiza rce(s) Supporting Document(s ) T3 TOTAL 91 ng/dL Normal (applies to [facility] (Amm ir non-numeric Charles results) Physician) ID Date Data Source [id number] 06/29/2016 12:00:00 AM EDT [facility] (Ammir Charles Physician) Name Value Range Interpretation Description Data Sup porting Code Source(s) Document(s ) VITAMIN D 58.8 Normal (applies to [facility] (Amm ir 1.25 pg/mL non-numeric Charles results) Physician) ID Date Data Source [id number] 06/29/2016 12:00:00 AM EDT [facility] (Ammir Charles Physician) Name Value Range Interpretation Description Data Sup porting Code Source(s) Document(s ) FOLATE SERUM 13.4 Above high normal [facility] (A mmir ng/mL Charles Physician) VITAMIN B12 676 pg/mL Normal (applies to [facility] (A mmir non-numeric Charles results) Physician) ID Date Data Source [id number] 06/29/2016 12:00:00 AM EDT [facility] (Ammir Charles Physician) Name Value Range Interpretation Description Data Sup porting Code Source(s) Document(s ) T4 FREE, 0.88 Below low normal [facility] THYROXINE ng/dL (Ammir Charles Physician) TSH,3RD 1.588 Normal (applies to [facility] GENERATION uIU/mL non-numeric (Ammir results) Charles Physician) Procedure Social History Code Duration Value Status Description Data Source(s ) Smoking 11/13/2019 Unknown if ever completed Unknown if ever [facility] (Ammir 12:00:00 AM EDT smoked smoked Charles Ph ysician) Smoking 11/13/2019 Former smoker completed Former smoker (quit [facility] (Ammir 12:00:00 AM EDT (quit 14 years 14 years ago), n o Charles Physician) ago), no alcohol use alcohol use Smoking 10/30/2019 Denies Ever completed Denies Ever Smoked [place] 11:07:00 AM EDT Smoked [facility] C enter Smoking 10/30/2019 Denies Ever completed Denies Ever Smoked [place] 06:50:00 AM EDT Smoked Medical C enter Smoking 10/30/2019 Unknown if ever completed Unknown if ever [facility] (Ammir 12:00:00 AM EDT smoked smoked Charles Ph ysician) Smoking 10/30/2019 Former smoker completed Former smoker (quit [facility] (Ammir 12:00:00 AM EDT (quit 14 years 14 years ago), n o Charles Physician) ago), no alcohol use alcohol use Smoking 10/20/2019 Unknown if ever completed Unknown if ever [facility] (Ammir 12:00:00 AM EDT smoked smoked Charles Ph ysician) Smoking 10/20/2019 Former smoker completed Former smoker (quit [facility] (Ammir 12:00:00 AM EDT (quit 14 years 14 years ago), n o Charles Physician) ago), no alcohol use alcohol use Smoking 10/14/2019 Unknown if ever completed Unknown if ever [facility] (Ammir 12:00:00 AM EDT smoked smoked Charles Ph ysician) Smoking 10/14/2019 Former smoker completed Former smoker (quit [facility] (Ammir 12:00:00 AM EDT (quit 14 years 14 years ago), n o Charles Physician) ago), no alcohol use alcohol use Smoking 10/14/2019 Unknown if ever completed Unknown if ever [facility] (Ammir 12:00:00 AM EDT smoked smoked Charles Ph ysician) Smoking 10/14/2019 Former smoker completed Former smoker (quit [facility] (Ammir 12:00:00 AM EDT (quit 14 years 14 years ago), n o Charles Physician) ago), no alcohol use alcohol use Smoking 09/06/2019 Denies Ever completed Denies Ever Smoked [place] 06:17:00 PM EDT Smoked Medical C enter Smoking 09/06/2019 Denies Ever completed Denies Ever Smoked [place] 05:29:00 PM EDT Smoked [facility] C enter Smoking 03/31/2019 Denies Ever completed Denies Ever Smoked [place] 08:37:00 AM EST Smoked Medical C enter Smoking 03/31/2019 Denies Ever completed Denies Ever Smoked [place] 08:30:00 AM EST Smoked [facility] C enter Smoking 03/31/2019 Denies Ever completed Denies Ever Smoked [place] 08:15:00 AM EST Smoked [facility] C enter Smoking 03/04/2019 Denies Ever completed Denies Ever Smoked [place] 07:34:00 AM EST Smoked [facility] C enter Smoking 03/04/2019 Denies Ever completed Denies Ever Smoked [place] 07:15:00 AM EST Smoked [facility] C enter Smoking 03/04/2019 Denies Ever completed Denies Ever Smoked [place] 06:38:00 AM EST Smoked [facility] C enter Smoking 02/19/2019 Denies Ever completed Denies Ever Smoked [place] 06:21:00 PM EST Smoked [facility] C enter Smoking 02/19/2019 Denies Ever completed Denies Ever Smoked [place] 05:54:00 PM EST Smoked [facility] C enter Smoking 02/19/2019 Denies Ever completed Denies Ever Smoked [place] 05:45:00 PM EST Smoked [facility] C enter Smoking 02/15/2019 Denies Ever completed Denies Ever Smoked [place] 01:00:00 PM EST Smoked [facility] C enter Smoking 02/15/2019 Denies Ever completed Denies Ever Smoked [place] 12:31:00 PM EST Smoked [facility] C enter Smoking 01/23/2019 Denies Ever completed Denies Ever Smoked [place] 05:59:00 PM EST Smoked [facility] C enter Smoking 01/23/2019 Denies Ever completed Denies Ever Smoked [place] 05:47:00 PM EST Smoked [facility] C enter Smoking 01/18/2019 Denies Ever completed Denies Ever Smoked [place] 07:33:00 PM EST Smoked Medical C enter Smoking 01/18/2019 Denies Ever completed Denies Ever Smoked [place] 07:23:00 PM EST Smoked [facility] C enter Smoking 01/12/2019 Denies Ever completed Denies Ever Smoked [place] 06:33:00 PM EST Smoked [facility] C enter Smoking 01/12/2019 Denies Ever completed Denies Ever Smoked [place] 06:15:00 PM EST Smoked Medical C enter Smoking 01/12/2019 Denies Ever completed Denies Ever Smoked [place] 06:11:00 PM EST Smoked [facility] C enter Smoking 01/03/2019 Denies Ever completed Denies Ever Smoked [place] 11:41:00 AM EST Smoked [facility] C enter Smoking 01/03/2019 Denies Ever completed Denies Ever Smoked [place] 11:15:00 AM EST Smoked [facility] C enter Smoking 01/03/2019 Denies Ever completed Denies Ever Smoked [place] 11:13:00 AM EST Smoked [facility] C enter Smoking 12/10/2018 Denies Ever completed Denies Ever Smoked [place] 09:25:00 PM EDT Smoked Medical C enter Smoking 12/10/2018 Denies Ever completed Denies Ever Smoked [place] 09:00:00 PM EDT Smoked [facility] C enter Smoking 12/10/2018 Denies Ever completed Denies Ever Smoked [place] 08:59:00 PM EDT Smoked [facility] C enter Smoking 11/27/2018 Denies Ever completed Denies Ever Smoked [place] 03:37:00 PM EDT Smoked Medical C enter Smoking 11/27/2018 Denies Ever completed Denies Ever Smoked [place] 03:31:00 PM EDT Smoked Medical C enter Smoking 11/15/2018 Denies Ever completed Denies Ever Smoked [place] 11:22:00 AM EDT Smoked Medical C enter Smoking 11/15/2018 Denies Ever completed Denies Ever Smoked [place] 11:10:00 AM EDT Smoked Medical C enter Smoking 11/05/2018 Denies Ever completed Denies Ever Smoked [place] 07:20:00 PM EDT Smoked [facility] C enter Smoking 11/05/2018 Denies Ever completed Denies Ever Smoked [place] 06:40:00 PM EDT Smoked Medical C enter Smoking 10/22/2018 Denies Ever completed Denies Ever Smoked [place] 05:33:00 PM EDT Smoked Medical C enter Smoking 10/22/2018 Denies Ever completed Denies Ever Smoked [place] 05:33:00 PM EDT Smoked Medical C enter Smoking 10/22/2018 Denies Ever completed Denies Ever Smoked [place] 05:19:00 PM EDT Smoked Medical C enter Smoking 09/05/2018 Denies Ever completed Denies Ever Smoked [place] 01:37:00 PM EDT Smoked Medical C enter Smoking 09/05/2018 Denies Ever completed Denies Ever Smoked [place] 01:36:00 PM EDT Smoked Medical C enter Smoking 09/05/2018 Denies Ever completed Denies Ever Smoked [place] 01:32:00 PM EDT Smoked Medical C enter Smoking 08/26/2018 Denies Ever completed Denies Ever Smoked [place] 09:40:00 AM EDT Smoked Medical C enter Smoking 08/26/2018 Denies Ever completed Denies Ever Smoked [place] 08:18:00 AM EDT Smoked Medical C enter Smoking 08/01/2018 Denies Ever completed Denies Ever Smoked [place] 06:03:00 AM EDT Smoked Medical C enter Smoking 08/01/2018 Denies Ever completed Denies Ever Smoked [place] 06:01:00 AM EDT Smoked Medical C enter Smoking 08/01/2018 Denies Ever completed Denies Ever Smoked [place] 05:56:00 AM EDT Smoked Medical C enter Smoking 06/09/2018 Denies Ever completed Denies Ever Smoked [place] 10:39:00 AM EDT Smoked Medical C enter Smoking 06/09/2018 Denies Ever completed Denies Ever Smoked [place] 10:28:00 AM EDT Smoked Medical C enter Smoking 05/05/2018 Denies Ever completed Denies Ever Smoked [place] 07:57:00 PM EST Smoked Medical C enter Smoking 05/05/2018 Denies Ever completed Denies Ever Smoked [place] 07:54:00 PM EST Smoked Medical C enter Smoking 05/05/2018 Denies Ever completed Denies Ever Smoked [place] 07:51:00 PM EST Smoked [facility] C enter Smoking 03/13/2018 Denies Ever completed Denies Ever Smoked [place] 05:27:00 PM EST Smoked Medical C enter Smoking 03/13/2018 Denies Ever completed Denies Ever Smoked [place] 05:13:00 PM EST Smoked Medical C enter Vital Signs ID Date Data Source UNK Name Value Range Interpretation Code Description Data Source(s) Systolic blood 110 mm[Hg] 110 mm[Hg] [facility] (Am [place] pressure Charles Physician) Diastolic blood 70 mm[Hg] 70 mm[Hg] [facility] (A mmir pressure Charles Physician) Inhaled oxygen 99 % 99 % [facility] (Am [place] concentration Charles Physician) Heart rate 77 /min 77 /min [facility] (Ammir Charles Physician) Body temperature 36.770252 [id number] [facility] Respiratory rate 18 /min 18 /min [facility] Oxygen saturation 99 % 99 % [facility] Arterial blood [facility] by Pulse oximetry Heart rate 85 /min 85 /min [facility] Diastolic blood 90 mm[Hg] 90 mm[Hg] [facility] Systolic blood 136 mm[Hg] 136 mm[Hg] [facility] Body temperature 35.120804 [phone] [facility] Respiratory rate 20 /min 20 /min [facility] Oxygen saturation 99 % 99 % [facility] Arterial blood [facility] by Pulse oximetry Heart rate 75 /min 75 /min [facility] Diastolic blood 90 mm[Hg] 90 mm[Hg] [facility] Systolic blood 144 mm[Hg] 144 mm[Hg] [facility] Body temperature 36.006348 [phone] [facility] Respiratory rate 20 /min 20 /min [facility] Oxygen saturation 100 % 100 % [facility] blood [facility] by Pulse oximetry Heart rate 88 /min 88 /min [facility] Diastolic blood 75 mm[Hg] 75 mm[Hg] [facility] Systolic blood 122 mm[Hg] 122 mm[Hg] [facility] pressure Medical Center Heart rate 83 /min 83 /min [facility] Diastolic blood 93 mm[Hg] 93 mm[Hg] [facility] pressure [facility] [place] Systolic blood 153 mm[Hg] 153 mm[Hg] [facility] Body temperature 36.850366 [id number] [facility] Respiratory rate 18 /min 18 /min [facility] Oxygen saturation 100 % 100 % [facility] in [facility] blood [facility] by Pulse oximetry Body height 67 in 67 in [facility] (Ammir Charles Physician) Body weight 231 lb 231 lb [facility] (Ammir Charles Physician) Systolic blood 120 mm[Hg] 120 mm[Hg] [facility] (Am [place] pressure Charles Physician) Diastolic blood 65 mm[Hg] 65 mm[Hg] [facility] (A mmir pressure Charles Physician) Body mass index 36.2 kg/m2 36.2 kg/m2 [facility] (A mmir (BMI) [Ratio] Charles Physician) Inhaled oxygen 97 % 97 % [facility] (Am [place] concentration Charles Physician) Heart rate 87 /min 87 /min [facility] (Ammir Charles Physician) Body height 67 in 67 in [facility] (Ammir Charles Physician) Body weight 231 lb 231 lb [facility] (Ammir Charles Physician) Systolic blood 120 mm[Hg] 120 mm[Hg] [facility] (Am [place] pressure Charles Physician) Diastolic blood 65 mm[Hg] 65 mm[Hg] [facility] (A mmir pressure Charles Physician) Body mass index 36.2 kg/m2 36.2 kg/m2 [facility] (A mmir (BMI) [Ratio] Charles Physician) Inhaled oxygen 97 % 97 % [facility] (Am [place] concentration Charles Physician) Heart rate 87 /min 87 /min [facility] (Ammir Charles Physician) Body weight 230 lb 230 lb [facility] (Ammir Charles Physician) Systolic blood 120 mm[Hg] 120 mm[Hg] [facility] (Am [place] pressure Charles Physician) Diastolic blood 76 mm[Hg] 76 mm[Hg] [facility] (A mmir pressure Charles Physician) Inhaled oxygen 98 % 98 % [facility] (Am [place] concentration Charles Physician) Heart rate 87 /min 87 /min [facility] (Ammir Charles Physician) Body weight 230 lb 230 lb [facility] (Ammir [facility]) Systolic blood 120 mm[Hg] 120 mm[Hg] [facility] (Am teetee pressure [facility]) Diastolic blood 76 mm[Hg] 76 mm[Hg] [facility] (A mmir pressure [facility]) Inhaled oxygen 98 % 98 % [facility] (Am [employer] concentration [facility]) Heart rate 87 /min 87 /min [facility] (Ammir [facility]ician) Body weight 230 lb 230 lb [facility] (Ammir Charles [facility]ician) Systolic blood 120 mm[Hg] 120 mm[Hg] [facility] (Am [employer] pressure [facility]) Diastolic blood 76 mm[Hg] 76 mm[Hg] [facility] (A mmir pressure [facility]ician) Inhaled oxygen 98 % 98 % [facility] (Am [employer] concentration [facility]) Heart rate 87 /min 87 /min [facility] (Ammir [facility]) Body temperature 98.8 F 98.8 F [facility] ( Ammir Charles [facility]ician) Heart rate 85 /min 85 /min [facility] (Ammir [facility]) Body height 67 in 67 in [facility] (Ammir Charles [facility]ician) Body weight 231 lb 231 lb [facility] (Ammir [facility]ician) Systolic blood 138 mm[Hg] 138 mm[Hg] [facility] (Am [employer] pressure [facility]) Diastolic blood 96 mm[Hg] 96 mm[Hg] [facility] (A mmir pressure [facility]ician) Body mass index 36.2 kg/m2 36.2 kg/m2 [facility] (A mmir (BMI) [Ratio] [facility]) Inhaled oxygen 98 % 98 % [facility] (Am [employer] concentration [facility]) Body height 67 in 67 in [facility] (Ammir [facility]ician) Body weight 231 lb 231 lb [facility] (Ammir Charles [facility]ician) Systolic blood 138 mm[Hg] 138 mm[Hg] [facility] (Am [employer] pressure [facility]) Diastolic blood 96 mm[Hg] 96 mm[Hg] [facility] (A mmir pressure [facility]ician) Body mass index 36.2 kg/m2 36.2 kg/m2 [facility] (A mmir (BMI) [Ratio] [facility]) Inhaled oxygen 98 % 98 % [facility] (Am [employer] concentration [facility]) Body temperature 98.8 F 98.8 F [facility] ( Ammir Charles Physician) Heart rate 85 /min 85 /min [facility] (Ammir Charles [facility]ician) Body height 67 in in [facility] (Ammir Charles [facility]ician) Body weight 231 lb 231 lb [facility] (Ammir Charles Physician) Systolic blood 138 mm[Hg] 138 mm[Hg] [facility] (Am [place] pressure [facility]) Diastolic blood 96 mm[Hg] 96 mm[Hg] [facility] (A mmir pressure [facility]ician) Body mass index 36.2 kg/m2 36.2 kg/m2 [facility] (A mmir (BMI) [Ratio] [facility]) Inhaled oxygen 98 % 98 % [facility] (Am [employer] concentration [facility]) Body temperature 98.8 F 98.8 F [facility] ( Ammir Charles Physician) Heart rate 85 /min 85 /min [facility] (Ammir Charles [facility]ician) Body height 67 in in [facility] (Ammir Charles [facility]ician) Body weight 231 lb 231 lb [facility] (Ammir Charles Physician) Systolic blood 108 mm[Hg] 108 mm[Hg] [facility] (Am [employer] pressure [facility]) Diastolic blood 80 mm[Hg] 80 mm[Hg] [facility] (A mmir pressure [facility]ician) Body mass index 36.2 kg/m2 36.2 kg/m2 [facility] (A mmir (BMI) [Ratio] [facility]) Inhaled oxygen 98 % 98 % [facility] (Am [employer] concentration [facility]) Body temperature 98.8 F 98.8 F [facility] ( Ammir Charles [facility]ician) Heart rate 85 /min 85 /min [facility] (Ammir Charles [facility]ician) Body height 67 in in [facility] (Ammir Charles Physician) Body weight 231 lb 231 lb [facility] (Ammir Charles Physician) Systolic blood 138 mm[Hg] 138 mm[Hg] [facility] (Am [employer] pressure [facility]ician) Diastolic blood 96 mm[Hg] 96 mm[Hg] [facility] (A mmir pressure [facility]ician) Body mass index 36.2 kg/m2 36.2 kg/m2 [facility] (A mmir (BMI) [Ratio] [facility]) Inhaled oxygen 98 % 98 % [facility] (Am [employer] concentration [facility]) Body temperature 98.8 F 98.8 F [facility] ( Ammir Charles [facility]ician) Heart rate 85 /min 85 /min [facility] (Ammir Charles Physician) Body temperature 36.997554 36.837230 [facility] Respiratory rate 18 /min 18 /min [facility] Oxygen saturation 98 % 98 % [facility] radha in [facility] blood [facility] by Pulse oximetry Heart rate 76 /min 76 /min [facility] Diastolic blood 88 mm[Hg] 88 mm[Hg] [facility] pressure [facility] Center Systolic blood 145 mm[Hg] 145 mm[Hg] [facility] Body height 67 in in [facility] (Ammir Charles Physician) Body weight 233 lb 233 lb [facility] (Ammir Charles Physician) Systolic blood 124 mm[Hg] 124 mm[Hg] [facility] (Am [employer] pressure [facility]ician) Diastolic blood 82 mm[Hg] 82 mm[Hg] [facility] (A mmir pressure [facility]ician) Body mass index 36.5 kg/m2 36.5 kg/m2 [facility] (A mmir (BMI) [Ratio] [facility]) Inhaled oxygen 95 % 95 % [facility] (Am [employer] concentration [facility]ician) Body temperature 98.8 F 98.8 F [facility] ( Ammir Charles [facility]ician) Heart rate 96 /min 96 /min [facility] (Ammir Charles [facility]ician) Body height in in [facility] (Ammir Charles [facility]ician) Body weight 233 lb 233 lb [facility] (Ammir Charles Physician) Systolic blood 124 mm[Hg] 124 mm[Hg] [facility] (Am [employer] pressure [facility]) Diastolic blood 82 mm[Hg] 82 mm[Hg] [facility] (A mmir pressure Charles [facility]ician) Body mass index 36.5 kg/m2 36.5 kg/m2 [facility] (A mmir (BMI) [Ratio] [facility]) Inhaled oxygen 95 % 95 % [facility] (Am [employer] concentration [facility]ician) Body temperature 98.8 F 98.8 F [facility] ( Ammir Charles Physician) Heart rate 96 /min 96 /min [facility] (Ammir Charles [facility]ician) Body height 67 in in [facility] (Ammir Charles Physician) Body weight 233 lb 233 lb [facility] (Ammir Charles Physician) Systolic blood 124 mm[Hg] 124 mm[Hg] [facility] (Am [employer] pressure [facility]ician) Diastolic blood 82 mm[Hg] 82 mm[Hg] [facility] (A mmir pressure Charles [facility]ician) Body mass index 36.5 kg/m2 36.5 kg/m2 [facility] (A mmir (BMI) [Ratio] [facility]) Inhaled oxygen 95 % 95 % [facility] (Am [employer] concentration [facility]ician) Body temperature 98.8 F 98.8 F [facility] ( Ammir Charles Physician) Heart rate 96 /min 96 /min [facility] (Ammir Charles [facility]ician) Body height 67 in in [facility] (Ammir Charles Physician) Body weight 233 lb 233 lb [facility] (Ammir Charles Physician) Systolic blood 124 mm[Hg] 124 mm[Hg] [facility] (Am [employer] pressure [facility]ician) Diastolic blood 82 mm[Hg] 82 mm[Hg] [facility] (A mmir pressure Charles [facility]ician) Body mass index 36.5 kg/m2 36.5 kg/m2 [facility] (A mmir (BMI) [Ratio] [facility]) Inhaled oxygen 95 % 95 % [facility] (Am [employer] concentration [facility]ician) Body temperature 98.8 F 98.8 F [facility] ( Ammir Charles Physician) Heart rate 96 /min 96 /min [facility] (Ammir Charles [facility]ician) Body height 67 in in [facility] (Ammir Charles Physician) Body weight 233 lb 233 lb [facility] (Ammir Charles Physician) Systolic blood 124 mm[Hg] 124 mm[Hg] [facility] (Am [employer] pressure [facility]ician) Diastolic blood 82 mm[Hg] 82 mm[Hg] [facility] (A mmir pressure Charles [facility]ician) Body mass index 36.5 kg/m2 36.5 kg/m2 [facility] (A mmir (BMI) [Ratio] [facility]) Inhaled oxygen 95 % 95 % [facility] (Am [employer] concentration [facility]ician) Body temperature 98.8 F 98.8 F [facility] ( Ammir Charles Physician) Heart rate 96 /min 96 /min [facility] (Ammir Charles [facility]ician) Body height 67 in in [facility] (Ammir Charles Physician) Body weight 233 lb 233 lb [facility] (Ammir Charles Physician) Systolic blood 130 mm[Hg] 130 mm[Hg] [facility] (Am [place] pressure [facility]ician) Diastolic blood 84 mm[Hg] 84 mm[Hg] [facility] (A mmir pressure Charles [facility]ician) Body mass index 36.5 kg/m2 36.5 kg/m2 [facility] (A mmir (BMI) [Ratio] [facility]) Inhaled oxygen 95 % 95 % [facility] (Am [place] concentration Charles [facility]ician) Heart rate 84 /min 84 /min [facility] (Ammir Charles Physician) Body height 67 in in [facility] (Ammir Charles Physician) Body weight 233 lb 233 lb [facility] (Ammir Charles Physician) Systolic blood 130 mm[Hg] 130 mm[Hg] [facility] (Am [place] pressure Charles [facility]ician) Diastolic blood 84 mm[Hg] 84 mm[Hg] [facility] (A mmir pressure Charles [facility]ician) Body mass index 36.5 kg/m2 36.5 kg/m2 [facility] (A mmir (BMI) [Ratio] Charles [facility]ician) Inhaled oxygen 95 % 95 % [facility] (Am [place] concentration Charles [facility]ician) Heart rate 84 /min 84 /min [facility] (Ammir Charles Physician) Body height in in [facility] (Ammir Charles Physician) Body weight 233 lb 233 lb [facility] (Ammir Charles Physician) Systolic blood 130 mm[Hg] 130 mm[Hg] [facility] (Am [place] pressure Charles [facility]ician) Diastolic blood 84 mm[Hg] 84 mm[Hg] [facility] (A mmir pressure Charles [facility]ician) Body mass index 36.5 kg/m2 36.5 kg/m2 [facility] (A mmir (BMI) [Ratio] [facility]) Inhaled oxygen 95 % 95 % [facility] (Am [place] concentration Charles [facility]ician) Heart rate 84 /min 84 /min [facility] (Ammir Charles Physician) Body height in in [facility] (Ammir Charles Physician) Body weight 233 lb 233 lb [facility] (Ammir Charles Physician) Systolic blood 130 mm[Hg] 130 mm[Hg] [facility] (Am [place] pressure Charles [facility]ician) Diastolic blood 84 mm[Hg] 84 mm[Hg] [facility] (A mmir pressure Charles [facility]ician) Body mass index 36.5 kg/m2 36.5 kg/m2 [facility] (A mmir (BMI) [Ratio] [facility]) Inhaled oxygen 95 % 95 % [facility] (Am [place] concentration Charles [facility]ician) Heart rate 84 /min 84 /min [facility] (Ammir Charles Physician) Body height in in [facility] (Ammir Charles Physician) Body weight 233 lb 233 lb [facility] (Ammir Charles Physician) Systolic blood 130 mm[Hg] 130 mm[Hg] [facility] (Am [place] pressure Charles [facility]ician) Diastolic blood 84 mm[Hg] 84 mm[Hg] [facility] (A mmir pressure Charles Physician) Body mass index 36.5 kg/m2 36.5 kg/m2 [facility] (A mmir (BMI) [Ratio] [facility]ician) Inhaled oxygen 95 % 95 % [facility] (Am [place] concentration Charles [facility]ician) Heart rate 84 /min 84 /min [facility] (Ammir Charles Physician) Body height 67 in in [facility] (Ammir Charles Physician) Body weight 233 lb 233 lb [facility] (Ammir Charles Physician) Systolic blood 130 mm[Hg] 130 mm[Hg] [facility] (Am [place] pressure Charles [facility]ician) Diastolic blood 84 mm[Hg] 84 mm[Hg] [facility] (A mmir pressure Charles [facility]ician) Body mass index 36.5 kg/m2 36.5 kg/m2 [facility] (A mmir (BMI) [Ratio] [facility]ician) Inhaled oxygen 98 % 98 % [facility] (Am [place] concentration [facility]ician) Heart rate 95 /min 95 /min [facility] (Ammir Charles [facility]ician) Body height 67 in in [facility] (Ammir Charles Physician) Body weight 233 lb 233 lb [facility] (Ammir Charles Physician) Systolic blood 130 mm[Hg] 130 mm[Hg] [facility] (Am [place] pressure [facility]ician) Diastolic blood 84 mm[Hg] 84 mm[Hg] [facility] (A mmir pressure Charles [facility]ician) Body mass index 36.5 kg/m2 36.5 kg/m2 [facility] (A mmir (BMI) [Ratio] [facility]ician) Inhaled oxygen 98 % 98 % [facility] (Am [place] concentration Charles [facility]ician) Heart rate 95 /min 95 /min [facility] (Ammir Charles Physician) Body height 67 in in [facility] (Ammir Charles Physician) Body weight 233 lb 233 lb [facility] (Ammir Charles Physician) Systolic blood 130 mm[Hg] 130 mm[Hg] [facility] (Am [place] pressure Charles [facility]ician) Diastolic blood 84 mm[Hg] 84 mm[Hg] [facility] (A mmir pressure Charles [facility]ician) Body mass index 36.5 kg/m2 36.5 kg/m2 [facility] (A mmir (BMI) [Ratio] [facility]ician) Inhaled oxygen 98 % 98 % [facility] (Am [place] concentration Charles Physician) Heart rate 95 /min 95 /min [facility] (Ammir Charles Physician) Body height 67 in in [facility] (Ammir Charles Physician) Body weight 233 lb 233 lb [facility] (Ammir Charles Physician) Systolic blood 130 mm[Hg] 130 mm[Hg] [facility] (Am [place] pressure Charles [facility]ician) Diastolic blood 84 mm[Hg] 84 mm[Hg] [facility] (A mmir pressure Charles Physician) Body mass index 36.5 kg/m2 36.5 kg/m2 [facility] (A mmir (BMI) [Ratio] Charles [facility]ician) Inhaled oxygen 98 % 98 % [facility] (Am [place] concentration Charles Physician) Heart rate 95 /min 95 /min [facility] (Ammir Charles Physician) Body height in [facility] (Ammir Charles Physician) Body weight 233 lb 233 lb [facility] (Ammir Charles Physician) Systolic blood 130 mm[Hg] 130 mm[Hg] [facility] (Am [employer] pressure Charles [facility]ician) Diastolic blood 84 mm[Hg] 84 mm[Hg] [facility] (A mmir pressure Charles Physician) Body mass index 36.5 kg/m2 36.5 kg/m2 [facility] (A mmir (BMI) [Ratio] Charles [facility]ician) Inhaled oxygen 98 % 98 % [facility] (Am [place] concentration Charles [facility]ician) Heart rate 95 /min 95 /min [facility] (Ammir Charles Physician) Body height in [facility] (Ammir Charles Physician) Body weight 237 lb 237 lb [facility] (Ammir Charles Physician) Systolic blood 126 mm[Hg] 126 mm[Hg] [facility] (Am [employer] pressure Charles [facility]ician) Diastolic blood 80 mm[Hg] 80 mm[Hg] [facility] (A mmir pressure Charles [facility]ician) Body mass index 37.1 kg/m2 37.1 kg/m2 [facility] (A mmir (BMI) [Ratio] [facility]ician) Inhaled oxygen 96 % 96 % [facility] (Am [employer] concentration Charles [facility]ician) Heart rate 74 /min 74 /min [facility] (Ammir Charles Physician) Body height in [facility] (Ammir Charles Physician) Body weight 237 lb 237 lb [facility] (Ammir Charles Physician) Systolic blood 126 mm[Hg] 126 mm[Hg] [facility] (Am [employer] pressure Charles [facility]ician) Diastolic blood 80 mm[Hg] 80 mm[Hg] [facility] (A mmir pressure Charles [facility]ician) Body mass index 37.1 kg/m2 37.1 kg/m2 [facility] (A mmir (BMI) [Ratio] Charles [facility]ician) Inhaled oxygen 96 % 96 % [facility] (Am [place] concentration Charles [facility]ician) Heart rate 74 /min 74 /min [facility] (Ammir Charles Physician) Body height 67 in in [facility] (Ammir Charles Physician) Body weight 237 lb 237 lb [facility] (Ammir Charles Physician) Systolic blood 126 mm[Hg] 126 mm[Hg] [facility] (Am [employer] pressure Charles [facility]ician) Diastolic blood 80 mm[Hg] 80 mm[Hg] [facility] (A mmir pressure Charles Physician) Body mass index 37.1 kg/m2 37.1 kg/m2 [facility] (A mmir (BMI) [Ratio] Charles [facility]ician) Inhaled oxygen 96 % 96 % [facility] (Am [employer] concentration Charles [facility]ician) Heart rate 74 /min 74 /min [facility] (Ammir Charles Physician) Heart rate 74 /min 74 /min [facility] (Ammir Charles Physician) Body height 67 in in [facility] (Ammir Charles Physician) Body weight 237 lb 237 lb [facility] (Ammir Charles Physician) Systolic blood 126 mm[Hg] 126 mm[Hg] [facility] (Am [place] pressure Charles [facility]ician) Diastolic blood 80 mm[Hg] 80 mm[Hg] [facility] (A mmir pressure Charles [facility]ician) Body mass index 37.1 kg/m2 37.1 kg/m2 [facility] (A mmir (BMI) [Ratio] Charles [facility]ician) Inhaled oxygen 96 % 96 % [facility] (Am [employer] concentration Charles [facility]ician) Body height 67 in in [facility] (Ammir Charles Physician) Body weight 237 lb 237 lb [facility] (Ammir Charles Physician) Systolic blood 126 mm[Hg] 126 mm[Hg] [facility] (Am te[place] pressure Charles Physician) Diastolic blood 80 mm[Hg] 80 mm[Hg] [facility] (A mmir pressure Charles Physician) Body mass index 37.1 kg/m2 37.1 kg/m2 [facility] (A mmir (BMI) [Ratio] Charles [facility]ician) Inhaled oxygen 96 % 96 % [facility] (Am [employer] concentration Charles [facility]ician) Heart rate 74 /min 74 /min [facility] (Ammir Charles Physician) Body weight 105.780655 105.293736 kg [facility] Measured kg [facility] Body temperature 36.348342 36.418843 [facility] Respiratory rate 18 /min 18 /min [facility] Oxygen saturation 98 % 98 % [facility] in Arterial blood [facility] by Pulse oximetry Heart rate 97 /min 97 /min [facility] Body height 170.519087 170.849990 cm [facility] cm [facility] Diastolic blood 72 mm[Hg] 72 mm[Hg] [facility] pressure [facility] Center Systolic blood 132 mm[Hg] 132 mm[Hg] [facility] pressure [facility] Center Body mass index 36.2 kg/m2 36.2 kg/m2 [facility] (BMI) [Ratio] Medical [address] Body height 67 in 67 in [facility] (Ammir Charles Physician) Body weight 237 lb 237 lb [facility] (Ammir Charles Physician) Systolic blood 126 mm[Hg] 126 mm[Hg] [facility] (Am [employer] pressure Charles [facility]ician) Diastolic blood 80 mm[Hg] 80 mm[Hg] [facility] (A mmir pressure Charles [facility]ician) Body mass index 37.1 kg/m2 37.1 kg/m2 [facility] (A mmir (BMI) [Ratio] Charles [facility]ician) Inhaled oxygen 96 % 96 % [facility] (Am [place] concentration Charles [facility]ician) Heart rate 74 /min 74 /min [facility] (Ammir Charles Physician) Body height 67 in 67 in [facility] (Ammir Charles Physician) Body weight 237 lb 237 lb [facility] (Ammir Charles Physician) Systolic blood 126 mm[Hg] 126 mm[Hg] [facility] (Am [employer] pressure Charles [facility]ician) Diastolic blood 80 mm[Hg] 80 mm[Hg] [facility] (A mmir pressure Charles Physician) Body mass index 37.1 kg/m2 37.1 kg/m2 [facility] (A mmir (BMI) [Ratio] [facility]ician) Inhaled oxygen 96 % 96 % [facility] (Am [place] concentration Charles Physician) Heart rate 74 /min 74 /min [facility] (Ammir Charles Physician) Body height 67 in in [facility] (Ammir Charles Physician) Body weight 237 lb 237 lb [facility] (Ammir Charles Physician) Systolic blood 126 mm[Hg] 126 mm[Hg] [facility] (Am [place] pressure Charles [facility]ician) Diastolic blood 80 mm[Hg] 80 mm[Hg] [facility] (A mmir pressure Charles [facility]ician) Body mass index 37.1 kg/m2 37.1 kg/m2 [facility] (A mmir (BMI) [Ratio] Charles [facility]ician) Inhaled oxygen 96 % 96 % [facility] (Am [place] concentration Charles [facility]ician) Heart rate 74 /min 74 /min [facility] (Ammir Charles Physician) Body height 67 in [facility] Body weight 237 lb 237 lb [facility] (Ammir Charles Physician) Systolic blood 126 mm[Hg] 126 mm[Hg] [facility] (Am [employer] pressure Charles [facility]ician) Diastolic blood 80 mm[Hg] 80 mm[Hg] [facility] (A mmir pressure Charles Physician) Body mass index 37.1 kg/m2 37.1 kg/m2 [facility] (A mmir (BMI) [Ratio] Charles [facility]ician) Inhaled oxygen 96 % 96 % [facility] (Am [employer] concentration Charles [facility]ician) Heart rate 74 /min 74 /min [facility] (Ammir Charles Physician) Body height 67 in in [facility] Body weight 237 lb 237 lb [facility] (Ammir Charles Physician) Systolic blood 126 mm[Hg] 126 mm[Hg] [facility] (Am [employer] pressure [facility]ician) Diastolic blood 80 mm[Hg] 80 mm[Hg] [facility] (A mmir pressure Charles [facility]ician) Body mass index 37.1 kg/m2 37.1 kg/m2 [facility] (A mmir (BMI) [Ratio] [facility]ician) Inhaled oxygen 96 % 96 % [facility] (Am [employer] concentration Charles [facility]ician) Heart rate 74 /min 74 /min [facility] (Ammir Charles Physician) Body temperature 36.821167 36.109927 [facility] Respiratory rate 18 /min 18 /min [facility] Heart rate 92 /min 92 /min [facility] Diastolic blood 98 mm[Hg] 98 mm[Hg] [facility] Systolic blood 155 mm[Hg] 155 mm[Hg] [facility] Body weight 100.684826 100.528243 kg [facility] Measured kg [facility] Body temperature 36.446372 36.106976 [facility] Respiratory rate 19 /min 19 /min [facility] Oxygen saturation 97 % 97 % [facility] Ar[facility]ial blood [facility] by Pulse oximetry Heart rate 90 /min 90 /min [facility] Body height 170.393297 170.257280 cm [facility] Diastolic blood 84 mm[Hg] 84 mm[Hg] [facility] pressure Medical Center Systolic blood 141 mm[Hg] 141 mm[Hg] [facility] Body mass index 34.5 kg/m2 34.5 kg/m2 [facility] (BMI) [Ratio] [facility] Body temperature 36.507732 36.117219 [facility] Respiratory rate 17 /min 17 /min [facility] Oxygen saturation 99 % 99 % [facility] Arterial blood [facility] by Pulse oximetry Heart rate 88 /min 88 /min [facility] Diastolic blood 95 mm[Hg] 95 mm[Hg] [facility] Systolic blood 143 mm[Hg] 143 mm[Hg] [facility] Respiratory rate 18 /min 18 /min [facility] Oxygen saturation 96 % 96 % [facility] blood [facility] by Pulse oximetry Heart rate 75 /min 75 /min [facility] Diastolic blood 75 mm[Hg] 75 mm[Hg] [facility] Systolic blood 144 mm[Hg] 144 mm[Hg] [facility] Body weight 106.853406 106.384226 kg [facility] Measured kg [facility] Center Body temperature 37.010672 37.876525 [facility] Respiratory rate 16 /min 16 /min [facility] Oxygen saturation 98 % 98 % [facility] blood [facility] by Pulse oximetry Heart rate 96 /min 96 /min [facility] Body height 170.597531 170.098986 cm [facility] Medical [place] Diastolic blood 92 mm[Hg] 92 mm[Hg] [facility] Systolic blood 153 mm[Hg] 153 mm[Hg] [facility] Body mass index 36.8 kg/m2 36.8 kg/m2 [facility] (BMI) [Ratio] Medical [facility] Body weight 104.085426 104.907041 kg [facility] Measured kg [facility] Body temperature 36.022863 36.890674 [facility] Respiratory rate 17 /min 17 /min [facility] Oxygen saturation 100 % 100 % [facility] Arterial blood [facility] by Pulse oximetry Heart rate 96 /min 96 /min [facility] Body height 170.043421 170.545797 cm [facility] Diastolic blood 88 mm[Hg] 88 mm[Hg] [facility] pressure [facility] Systolic blood 147 mm[Hg] 147 mm[Hg] [facility] Body mass index 36.0 kg/m2 36.0 kg/m2 [facility] (BMI) [Ratio] Medical [facility] Body temperature 36.509401 36.025832 [facility] Respiratory rate 17 /min 17 /min [facility] Oxygen saturation 100 % 100 % [facility] Arterial blood [facility] by Pulse oximetry Heart rate 90 /min 90 /min [facility] Diastolic blood 76 mm[Hg] 76 mm[Hg] [facility] Systolic blood 142 mm[Hg] 142 mm[Hg] [facility] Body height 67 in 67 in [facility] (Ammir Charles Physician) Body weight 233 lb 233 lb [facility] (Ammir Charles Physician) Systolic blood 130 mm[Hg] 130 mm[Hg] [facility] ([employer] [place] pressure [facility]) Diastolic blood 78 mm[Hg] 78 mm[Hg] [facility] (A mmir pressure [facility]) Body mass index 36.5 kg/m2 36.5 kg/m2 [facility] (A mmir (BMI) [Ratio] [facility]) Inhaled oxygen 96 % 96 % [facility] (Am [place] concentration [facility]ician) Heart rate 74 /min 74 /min [facility] (Ammir Charles Physician) Body height 67 in 67 in [facility] (Ammir Charles Physician) Body weight 233 lb 233 lb [facility] (Ammir Charles Physician) Systolic blood 130 mm[Hg] 130 mm[Hg] [facility] (Am [place] pressure [facility]ician) Diastolic blood 78 mm[Hg] 78 mm[Hg] [facility] (A mmir pressure [facility]ician) Body mass index 36.5 kg/m2 36.5 kg/m2 [facility] (A mmir (BMI) [Ratio] [facility]) Inhaled oxygen 96 % 96 % [facility] ([employer] [place] concentration Charles [facility]ician) Heart rate 74 /min 74 /min [facility] (Ammir Charles Physician) Body height 67 in in [facility] (Ammir Charles Physician) Body weight 233 lb 233 lb [facility] (Ammir Charles Physician) Systolic blood 130 mm[Hg] 130 mm[Hg] [facility] (Am [employer] pressure [facility]ician) Diastolic blood 78 mm[Hg] 78 mm[Hg] [facility] (A mmir pressure [facility]ician) Body mass index 36.5 kg/m2 36.5 kg/m2 [facility] (A mmir (BMI) [Ratio] [facility]) Inhaled oxygen 96 % 96 % [facility] (Am [place] concentration Charles [facility]ician) Heart rate 74 /min 74 /min [facility] (Ammir Charles Physician) Body height 67 in in [facility] (Ammir Charles Physician) Body weight 233 lb 233 lb [facility] (Ammir Charles Physician) Systolic blood 130 mm[Hg] 130 mm[Hg] [facility] (Am [place] pressure [facility]ician) Diastolic blood 78 mm[Hg] 78 mm[Hg] [facility] (A mmir pressure [facility]) Body mass index 36.5 kg/m2 36.5 kg/m2 [facility] (A mmir (BMI) [Ratio] [facility]) Inhaled oxygen 96 % 96 % [facility] ([employer] [place] concentration Charles [facility]ician) Heart rate 74 /min 74 /min [facility] (Ammir Charles Physician) Body height 67 in in [facility] (Ammir Charles Physician) Body weight 233 lb 233 lb [facility] (Ammir Charles Physician) Systolic blood 130 mm[Hg] 130 mm[Hg] [facility] (Am [employer] pressure [facility]ician) Diastolic blood 78 mm[Hg] 78 mm[Hg] [facility] (A mmir pressure [facility]) Body mass index 36.5 kg/m2 36.5 kg/m2 [facility] (A mmir (BMI) [Ratio] [facility]) Inhaled oxygen 96 % 96 % [facility] (Am [place] concentration [facility]) Heart rate 74 /min 74 /min [facility] (Ammir Charles Physician) Body temperature 37.023227 37.373022 [facility] Respiratory rate 18 /min 18 /min [facility] Oxygen saturation 99 % 99 % [facility] J osephs in Arterial blood [facility] by Pulse oximetry Heart rate 82 /min 82 /min [facility] Diastolic blood 68 mm[Hg] 68 mm[Hg] [facility] pressure [facility] Systolic blood 134 mm[Hg] 134 mm[Hg] [facility] Body temperature 37.598220 37.794574 [facility] Respiratory rate 18 /min 18 /min [facility] Oxygen saturation 99 % 99 % [facility] J osephs in Arterial blood [facility] by Pulse oximetry Heart rate 85 /min 85 /min [facility] Diastolic blood 70 mm[Hg] 70 mm[Hg] [facility] Systolic blood 131 mm[Hg] 131 mm[Hg] [facility] Body height 67 in 67 in [facility] (Ammir Charles Physician) Body weight 233 lb 233 lb [facility] (Ammir Charles Physician) Systolic blood 124 mm[Hg] 124 mm[Hg] [facility] ([place] pressure Charles Physician) Diastolic blood 80 mm[Hg] 80 mm[Hg] [facility] (A mmir pressure Charles Physician) Body mass index 36.5 kg/m2 36.5 kg/m2 [facility] (A mmir (BMI) [Ratio] Charles Physician) Inhaled oxygen 98 % 98 % [facility] (Am [place] concentration Charles Physician) Heart rate 84 /min 84 /min [facility] (Ammir Charles Physician) Body height 67 in 67 in [facility] (Ammir Charles Physician) Body weight 233 lb 233 lb [facility] (Ammir Charles Physician) Systolic blood 124 mm[Hg] 124 mm[Hg] [facility] ([place] pressure Charles Physician) Diastolic blood 80 mm[Hg] 80 mm[Hg] [facility] (A mmir pressure Charles Physician) Body mass index 36.5 kg/m2 36.5 kg/m2 [facility] (A mmir (BMI) [Ratio] Charles Physician) Inhaled oxygen 98 % 98 % [facility] ([place] concentration Charles Physician) Heart rate 84 /min 84 /min [facility] (Ammir Charles Physician) Body height 67 in in [facility] (Ammir Charles Physician) Body weight 233 lb 233 lb [facility] (Ammir Charles Physician) Systolic blood 124 mm[Hg] 124 mm[Hg] [facility] ([place] pressure Charles Physician) Diastolic blood 80 mm[Hg] 80 mm[Hg] [facility] (A mmir pressure Charles Physician) Body mass index 36.5 kg/m2 36.5 kg/m2 [facility] (A mmir (BMI) [Ratio] Charles Physician) Inhaled oxygen 98 % 98 % [facility] ([place] concentration Charles Physician) Heart rate 84 /min 84 /min [facility] (Ammir Charles Physician) Body height 67 in in [facility] (Ammir Charles Physician) Body weight 233 lb 233 lb [facility] (Ammir Charles Physician) Systolic blood 124 mm[Hg] 124 mm[Hg] [facility] ([place] pressure Charlse Physician) Diastolic blood 80 mm[Hg] 80 mm[Hg] [facility] (A mmir pressure Charles Physician) Body mass index 36.5 kg/m2 36.5 kg/m2 [facility] (A mmir (BMI) [Ratio] Charles Physician) Inhaled oxygen 98 % 98 % [facility] ([place] concentration Charles Physician) Heart rate 84 /min 84 /min [facility] (Ammir Charles Physician) Body height 67 in in [facility] (Ammir Charles Physician) Body weight 233 lb 233 lb [facility] (Ammir Charles Physician) Systolic blood 124 mm[Hg] 124 mm[Hg] [facility] ([place] pressure Charles Physician) Diastolic blood 80 mm[Hg] 80 mm[Hg] [facility] (A mmir pressure Charles Physician) Body mass index 36.5 kg/m2 36.5 kg/m2 [facility] (A mmir (BMI) [Ratio] Charles Physician) Inhaled oxygen 98 % 98 % [facility] ([place] concentration Charles Physician) Heart rate 84 /min 84 /min [facility] (Ammir Charles Physician) Body temperature 36.721953 36.990337 [facility] Respiratory rate 19 /min 19 /min [facility] Oxygen saturation 100 % 100 % [facility] in [facility] by Pulse oximetry Heart rate 81 /min 81 /min [facility] Diastolic blood 87 mm[Hg] 87 mm[Hg] [facility] Systolic blood 153 mm[Hg] 153 mm[Hg] [facility] Body weight 104.524289 104.258258 kg [facility] Measured kg Medical Center Body temperature 36.648602 36.493651 Lakshmi [facility] Respiratory rate 17 /min 17 /min [facility] Oxygen saturation 98 % 98 % [facility] in Arterial blood [facility] by Pulse oximetry Heart rate 90 /min 90 /min [facility] Body height 170.374325 170.403571 cm [facility] Diastolic blood 76 mm[Hg] 76 mm[Hg] [facility] Systolic blood 140 mm[Hg] 140 mm[Hg] [facility] Body mass index 36.0 kg/m2 36.0 kg/m2 [facility] (BMI) [Ratio] Medical [address] Body weight 104.432806 104.672951 kg [facility] Measured kg Medical Center Body temperature 36.101350 36.885011 [facility] Respiratory rate 17 /min 17 /min [facility] Oxygen saturation 98 % 98 % [facility] in Arterial blood [facility] Center by Pulse oximetry Heart rate 86 /min 86 /min [facility] Body height 170.900342 170.864361 cm [facility] Diastolic blood 65 mm[Hg] 65 mm[Hg] [facility] Systolic blood 110 mm[Hg] 110 mm[Hg] [facility] Body mass index 36.0 kg/m2 36.0 kg/m2 [facility] (BMI) [Ratio] [facility] [address] Body temperature 37.310739 37.952598 [facility] Respiratory rate 20 /min 20 /min [facility] Oxygen saturation 99 % 99 % [facility] in Arterial blood [facility] by Pulse oximetry Heart rate 85 /min 85 /min [facility] Diastolic blood 67 mm[Hg] 67 mm[Hg] [facility] Systolic blood 124 mm[Hg] 124 mm[Hg] [facility] Body temperature 36.949370 36.261461 Laksh[facility] Heart rate 91 /min 91 /min [facility] Body temperature 37.685866 37.660577 [facility] Respiratory rate 20 /min 20 /min [facility] Oxygen saturation 98 % 98 % [facility] in Arterial blood [facility] Center by Pulse oximetry Heart rate 99 /min 99 /min [facility] Diastolic blood 84 mm[Hg] 84 mm[Hg] [facility] Systolic blood 148 mm[Hg] 148 mm[Hg] [facility] Body weight 105.550758 105.804835 kg [facility] Measured kg Medical Center Body temperature 36.076711 36.579779 [facility] Respiratory rate 16 /min 16 /min [facility] Oxygen saturation 100 % 100 % [facility] in Arterial blood [facility] Center by Pulse oximetry Heart rate 85 /min 85 /min [facility] Body height 170.186916 170.151495 cm [facility] Diastolic blood 73 mm[Hg] 73 mm[Hg] [facility] Systolic blood 132 mm[Hg] 132 mm[Hg] [facility] Body mass index 36.4 kg/m2 36.4 kg/m2 [facility] (BMI) [Ratio] Medical [facility] Body weight 104.360426 104.867115 kg [facility] Measured kg Medical Center Body temperature 36.475991 36.384350 [facility] Respiratory rate 16 /min 16 /min [facility] Oxygen saturation 99 % 99 % [facility]ph[facility] in [facility] blood [facility] by Pulse oximetry Heart rate 84 /min 84 /min [facility] Body height 170.378562 170.345062 cm [facility] Diastolic blood 84 mm[Hg] 84 mm[Hg] [facility] Systolic blood 147 mm[Hg] 147 mm[Hg] [facility] Body mass index 36.0 kg/m2 36.0 kg/m2 [facility] (BMI) [Ratio] Medical [facility] Body temperature 36.607220 36.816677 [facility] Respiratory rate 17 /min 17 /min [facility] Oxygen saturation 98 % 98 % [facility] in [facility] blood [facility] by Pulse oximetry Heart rate 78 /min 78 /min [facility] Diastolic blood 76 mm[Hg] 76 mm[Hg] [facility] pressure Medical [place] Systolic blood 132 mm[Hg] 132 mm[Hg] [facility] Body temperature 36.482527 36.334823 Laksh[facility] Respiratory rate 17 /min 17 /min [facility] Oxygen saturation 100 % 100 % [facility] Tony osephs in [facility] by Pulse oximetry Heart rate 82 /min 82 /min [facility] Diastolic blood 78 mm[Hg] 78 mm[Hg] [facility] pressure [facility] Systolic blood 138 mm[Hg] 138 mm[Hg] [facility] Body weight 233 lb 233 lb [facility] (Ammir Charles Physician) Systolic blood 124 mm[Hg] 124 mm[Hg] [facility] ([place] pressure Charles Physician) Diastolic blood 76 mm[Hg] 76 mm[Hg] [facility] (A mmir pressure Charles Physician) Inhaled oxygen 98 % 98 % [facility] ([place] concentration Charles Physician) Heart rate 84 /min 84 /min [facility] (Ammir Charles Physician) Body weight 233 lb 233 lb [facility] (Ammir Charles Physician) Systolic blood 124 mm[Hg] 124 mm[Hg] [facility] ([place] pressure Charles Physician) Diastolic blood 76 mm[Hg] 76 mm[Hg] [facility] (A mmir pressure Charles Physician) Inhaled oxygen 98 % 98 % [facility] ([place] concentration Charles Physician) Heart rate 84 /min 84 /min [facility] (Ammir Charles Physician) Body weight 233 lb 233 lb [facility] (Ammir Charles Physician) Systolic blood 124 mm[Hg] 124 mm[Hg] [facility] ([place] pressure Charles Physician) Diastolic blood 76 mm[Hg] 76 mm[Hg] [facility] (A mmir pressure Charles Physician) Inhaled oxygen 98 % 98 % [facility] ([place] concentration Charles Physician) Heart rate 84 /min 84 /min [facility] (Ammir Charles Physician) Body weight 233 lb 233 lb [facility] (Ammir Charles Physician) Systolic blood 124 mm[Hg] 124 mm[Hg] [facility] ([place] pressure Charles Physician) Diastolic blood 76 mm[Hg] 76 mm[Hg] [facility] (A mmir pressure Charles Physician) Inhaled oxygen 98 % 98 % [facility] ([place] concentration Charles Physician) Heart rate 84 /min 84 /min [facility] (Ammir Charles Physician) Body weight 233 lb 233 lb [facility] (Ammir Charles Physician) Systolic blood 124 mm[Hg] 124 mm[Hg] [facility] ([place] pressure Charles Physician) Diastolic blood 76 mm[Hg] 76 mm[Hg] [facility] (A mmir pressure Charles Physician) Inhaled oxygen 98 % 98 % [facility] ([place] concentration Charles Physician) Heart rate 84 /min 84 /min [facility] (Ammir Charles Physician) Body height 67 in in [facility] (Ammir Charles Physician) Body weight 237 lb 237 lb [facility] (Ammir Charles Physician) Systolic blood 132 mm[Hg] 132 mm[Hg] [facility] ([place] pressure Charles Physician) Diastolic blood 88 mm[Hg] 88 mm[Hg] [facility] (A mmir pressure Charles Physician) Body mass index 37.1 kg/m2 37.1 kg/m2 [facility] (A mmir (BMI) [Ratio] Charles Physician) Inhaled oxygen 99 % 99 % [facility] ([place] concentration Charles Physician) Heart rate 81 /min 81 /min [facility] (Ammir Charles Physician) Body height 67 in in [facility] (Ammir Charles Physician) Body weight 237 lb 237 lb [facility] (Ammir Charles Physician) Systolic blood 132 mm[Hg] 132 mm[Hg] [facility] ([place] pressure Charles Physician) Diastolic blood 88 mm[Hg] 88 mm[Hg] [facility] (A mmir pressure Charles Physician) Body mass index 37.1 kg/m2 37.1 kg/m2 [facility] (A mmir (BMI) [Ratio] Charles Physician) Inhaled oxygen 99 % 99 % [facility] ([place] concentration Charles Physician) Heart rate 81 /min 81 /min [facility] (Ammir Charles Physician) Body height 67 in in [facility] (Ammir Charles Physician) Body weight 237 lb 237 lb [facility] (Ammir Charles Physician) Systolic blood 132 mm[Hg] 132 mm[Hg] [facility] ([place] pressure Charles Physician) Diastolic blood 88 mm[Hg] 88 mm[Hg] [facility] (A mmir pressure Charles Physician) Body mass index 37.1 kg/m2 37.1 kg/m2 [facility] (A mmir (BMI) [Ratio] Charles Physician) Inhaled oxygen 99 % 99 % [facility] ([place] concentration Charles Physician) Heart rate 81 /min 81 /min [facility] (Ammir Charles Physician) Body height 67 in 67 in [facility] (Ammir Charles Physician) Body weight 237 lb 237 lb [facility] (Ammir Charles Physician) Systolic blood 132 mm[Hg] 132 mm[Hg] [facility] ([place] pressure Charles Physician) Diastolic blood 88 mm[Hg] 88 mm[Hg] [facility] (A mmir pressure Charles Physician) Body mass index 37.1 kg/m2 37.1 kg/m2 [facility] (A mmir (BMI) [Ratio] Charles Physician) Inhaled oxygen 99 % 99 % [facility] ([place] concentration Charles Physician) Heart rate 81 /min 81 /min [facility] (Ammir Charles Physician) Body height 67 in 67 in [facility] (Ammir Charles Physician) Body weight 237 lb 237 lb [facility] (Ammir Charles Physician) Systolic blood 132 mm[Hg] 132 mm[Hg] [facility] ([place] pressure Charles Physician) Diastolic blood 88 mm[Hg] 88 mm[Hg] [facility] (A mmir pressure Charles Physician) Body mass index 37.1 kg/m2 37.1 kg/m2 [facility] (A mmir (BMI) [Ratio] Charles Physician) Inhaled oxygen 99 % 99 % [facility] ([place] concentration Charles Physician) Heart rate 81 /min 81 /min [facility] (Ammir Charles Physician) Respiratory rate 18 /min 18 /min [facility] Oxygen saturation 98 % 98 % [facility] J osephs in [facility] by Pulse oximetry Heart rate 80 /min 80 /min [facility] Diastolic blood 86 mm[Hg] 86 mm[Hg] [facility] Systolic blood 158 mm[Hg] 158 mm[Hg] [facility] Body temperature 36.347803 36.906057 [facility] Respiratory rate 18 /min 18 /min [facility] Oxygen saturation 98 % 98 % [facility] J osephs in Arterial blood [facility] by Pulse oximetry Heart rate 86 /min 86 /min [facility] Diastolic blood 97 mm[Hg] 97 mm[Hg] [facility] Systolic blood 158 mm[Hg] 158 mm[Hg] [facility] Body temperature 36.242267 36.708029 Laksh[facility] Respiratory rate 17 /min 17 /min [facility] Oxygen saturation 98 % 98 % [facility] in Arterial blood [facility] by Pulse oximetry Heart rate 76 /min 76 /min [facility] Diastolic blood 76 mm[Hg] 76 mm[Hg] [facility] Systolic blood 142 mm[Hg] 142 mm[Hg] [facility] Body temperature 36.443825 36.531504 Laksh[facility] Respiratory rate 17 /min 17 /min [facility] Oxygen saturation 98 % 98 % [facility] in Arterial blood [facility] by Pulse oximetry Heart rate 78 /min 78 /min [facility] Diastolic blood 85 mm[Hg] 85 mm[Hg] [facility] Systolic blood 145 mm[Hg] 145 mm[Hg] [facility] Systolic blood 110 mm[Hg] 110 mm[Hg] [facility] ([place] pressure Charles Physician) Diastolic blood 80 mm[Hg] 80 mm[Hg] [facility] (A mmir pressure Charles Physician) Inhaled oxygen 98 % 98 % [facility] ([place] concentration Charles Physician) Heart rate 90 /min 90 /min [facility] (Ammir Charles Physician) Systolic blood 110 mm[Hg] 110 mm[Hg] [facility] ([place] pressure Charles Physician) Diastolic blood 80 mm[Hg] 80 mm[Hg] [facility] (A mmir pressure Charles Physician) Inhaled oxygen 98 % 98 % [facility] ([place] concentration Charles Physician) Heart rate 90 /min 90 /min [facility] (Ammir Charles Physician) Systolic blood 110 mm[Hg] 110 mm[Hg] [facility] ([place] pressure Charles Physician) Diastolic blood 80 mm[Hg] 80 mm[Hg] [facility] (A mmir pressure Charles Physician) Inhaled oxygen 98 % 98 % [facility] ([place] concentration Charles Physician) Heart rate 90 /min 90 /min [facility] (Ammir Charles Physician) Systolic blood 110 mm[Hg] 110 mm[Hg] [facility] ([place] pressure Charles Physician) Diastolic blood 80 mm[Hg] 80 mm[Hg] [facility] (A mmir pressure Charles Physician) Inhaled oxygen 98 % 98 % [facility] ([place] concentration Charles Physician) Heart rate 90 /min 90 /min [facility] (Ammir Charles Physician) Systolic blood 110 mm[Hg] 110 mm[Hg] [facility] ([place] pressure Charles Physician) Diastolic blood 80 mm[Hg] 80 mm[Hg] [facility] (A mmir pressure Charles Physician) Inhaled oxygen 98 % 98 % [facility] ([place] concentration Charles Physician) Heart rate 90 /min 90 /min [facility] (Ammir Charles Physician) Body height 65 in 65 in [facility] (Ammir Charles Physician) Body weight 235 lb 235 lb [facility] (Ammir Charles Physician) Systolic blood 120 mm[Hg] 120 mm[Hg] [facility] ([place] pressure Charles Physician) Diastolic blood 84 mm[Hg] 84 mm[Hg] [facility] (A mmir pressure Charles Physician) Body mass index 39.1 kg/m2 39.1 kg/m2 [facility] (A mmir (BMI) [Ratio] Charles Physician) Inhaled oxygen 99 % 99 % [facility] ([place] concentration Charles Physician) Heart rate 84 /min 84 /min [facility] (Ammir Charles Physician) Body height 65 in 65 in [facility] (Ammir Charles Physician) Body weight 235 lb 235 lb [facility] (Ammir Charles Physician) Systolic blood 120 mm[Hg] 120 mm[Hg] [facility] ([place] pressure Charles Physician) Diastolic blood 84 mm[Hg] 84 mm[Hg] [facility] (A mmir pressure Charles Physician) Body mass index 39.1 kg/m2 39.1 kg/m2 [facility] (A mmir (BMI) [Ratio] Charles Physician) Inhaled oxygen 99 % 99 % [facility] ([place] concentration Charles Physician) Heart rate 84 /min 84 /min [facility] (Ammir Charles Physician) Body height 65 in 65 in [facility] (Ammir Charles Physician) Body weight 235 lb 235 lb [facility] (Ammir Charles Physician) Systolic blood 120 mm[Hg] 120 mm[Hg] [facility] ([place] pressure Charles Physician) Diastolic blood 84 mm[Hg] 84 mm[Hg] [facility] (A mmir pressure Charles Physician) Body mass index 39.1 kg/m2 39.1 kg/m2 [facility] (A mmir (BMI) [Ratio] Charles Physician) Inhaled oxygen 99 % 99 % [facility] ([place] concentration Charles Physician) Heart rate 84 /min 84 /min [facility] (Ammir Charles Physician) Body height 65 in 65 in [facility] (Ammir Charles Physician) Body weight 235 lb 235 lb [facility] (Ammir Charles Physician) Systolic blood 120 mm[Hg] 120 mm[Hg] [facility] ([place] pressure Charles Physician) Diastolic blood 84 mm[Hg] 84 mm[Hg] [facility] (A mmir pressure Charles Physician) Body mass index 39.1 kg/m2 39.1 kg/m2 [facility] (A mmir (BMI) [Ratio] Charles Physician) Inhaled oxygen 99 % 99 % [facility] ([place] concentration Charles Physician) Heart rate 84 /min 84 /min [facility] (Ammir Charles Physician) Body height 65 in 65 in [facility] (Ammir Charles Physician) Body weight 235 lb 235 lb [facility] (Ammir Charles Physician) Systolic blood 120 mm[Hg] 120 mm[Hg] [facility] ([place] pressure Charles Physician) Diastolic blood 84 mm[Hg] 84 mm[Hg] [facility] (A mmir pressure Charles Physician) Body mass index 39.1 kg/m2 39.1 kg/m2 [facility] (A mmir (BMI) [Ratio] Charles Physician) Inhaled oxygen 99 % 99 % [facility] ([place] concentration Charles Physician) Heart rate 84 /min 84 /min [facility] (Ammir Charles Physician) Body weight 108.116851 108.988321 kg [facility] Measured kg [facility] Body temperature 36.247662 36.455432 Laksh[facility] Respiratory rate 20 /min 20 /min [facility] Oxygen saturation 100 % 100 % [facility] Tony garciahs in Arterial blood [facility] Center by Pulse oximetry Heart rate 92 /min 92 /min [facility] Body height 170.525670 170.483186 cm [facility] Diastolic blood 76 mm[Hg] 76 mm[Hg] [facility] pressure [facility] Systolic blood 131 mm[Hg] 131 mm[Hg] [facility] pressure [facility] Body mass index 37.2 kg/m2 37.2 kg/m2 [facility] (BMI) [Ratio] Medical [address] Body height 65 in 65 in [facility] (Ammir Charles Physician) Body weight 235 lb 235 lb [facility] (Ammir Charles Physician) Systolic blood 120 mm[Hg] 120 mm[Hg] [facility] ([place] pressure Charles Physician) Diastolic blood 70 mm[Hg] 70 mm[Hg] [facility] (A mmir pressure Charles Physician) Body mass index 39.1 kg/m2 39.1 kg/m2 [facility] (A mmir (BMI) [Ratio] Charles Physician) Inhaled oxygen 98 % 98 % [facility] ([place] concentration Charles Physician) Heart rate 84 /min 84 /min [facility] (Ammir Charles Physician) Body mass index 39.1 kg/m2 39.1 kg/m2 [facility] (A mmir (BMI) [Ratio] Charles Physician) Inhaled oxygen 98 % 98 % [facility] ([place] concentration Charles Physician) Heart rate 84 /min 84 /min [facility] (Ammir Charles Physician) Body height 65 in 65 in [facility] (Ammir Charles Physician) Body weight 235 lb 235 lb [facility] (Ammir Charles Physician) Systolic blood 120 mm[Hg] 120 mm[Hg] [facility] ([place] pressure Charles Physician) Diastolic blood 70 mm[Hg] 70 mm[Hg] [facility] (A mmir pressure Charles Physician) Body height 65 in 65 in [facility] (Ammir Charles Physician) Body weight 235 lb 235 lb [facility] (Ammir Charles Physician) Systolic blood 120 mm[Hg] 120 mm[Hg] [facility] ([place] pressure Charles Physician) Diastolic blood 70 mm[Hg] 70 mm[Hg] [facility] (A mmir pressure Charles Physician) Body mass index 39.1 kg/m2 39.1 kg/m2 [facility] (A mmir (BMI) [Ratio] Charles Physician) Inhaled oxygen 98 % 98 % [facility] ([place] concentration Charles Physician) Heart rate 84 /min 84 /min [facility] (Ammir Charles Physician) Body height 65 in 65 in [facility] (Ammir Charles Physician) Body weight 235 lb 235 lb [facility] (Ammir Charles Physician) Systolic blood 120 mm[Hg] 120 mm[Hg] [facility] ([place] pressure Charles Physician) Diastolic blood 70 mm[Hg] 70 mm[Hg] [facility] (A mmir pressure Charles Physician) Body mass index 39.1 kg/m2 39.1 kg/m2 [facility] (A mmir (BMI) [Ratio] Charles Physician) Inhaled oxygen 98 % 98 % [facility] ([place] concentration Charles Physician) Heart rate 84 /min 84 /min [facility] (Ammir Charles Physician) Body height 65 in 65 in [facility] (Ammir Charles Physician) Body weight 235 lb 235 lb [facility] (Ammir Charles Physician) Systolic blood 120 mm[Hg] 120 mm[Hg] [facility] ([place] pressure Charles Physician) Diastolic blood 70 mm[Hg] 70 mm[Hg] [facility] (A mmir pressure Charles Physician) Body mass index 39.1 kg/m2 39.1 kg/m2 [facility] (A mmir (BMI) [Ratio] Charles Physician) Inhaled oxygen 98 % 98 % [facility] ([place] concentration Charles Physician) Heart rate 84 /min 84 /min [facility] (Ammir Charles Physician) Body height 67 in 67 in [facility] (Ammir Charles Physician) Body weight 235 lb 235 lb [facility] (Ammir Charles Physician) Systolic blood 134 mm[Hg] 134 mm[Hg] [facility] ([place] pressure Charles Physician) Diastolic blood 70 mm[Hg] 70 mm[Hg] [facility] (A mmir pressure Charles Physician) Body mass index 36.8 kg/m2 36.8 kg/m2 [facility] (A mmir (BMI) [Ratio] Charles Physician) Inhaled oxygen 98 % 98 % [facility] ([place] concentration Charles Physician) Body temperature 98.7 F 98.7 F [facility] ( Ammir Charles Physician) Heart rate 82 /min 82 /min [facility] (Ammir Charles Physician) Body height 67 in 67 in [facility] (Ammir Charles Physician) Body weight 235 lb 235 lb [facility] (Ammir Charles Physician) Systolic blood 134 mm[Hg] 134 mm[Hg] [facility] ([place] pressure Charles Physician) Diastolic blood 70 mm[Hg] 70 mm[Hg] [facility] (A mmir pressure Charles Physician) Body mass index 36.8 kg/m2 36.8 kg/m2 [facility] (A mmir (BMI) [Ratio] Charles Physician) Inhaled oxygen 98 % 98 % [facility] ([place] concentration Charles Physician) Body temperature 98.7 F 98.7 F [facility] ( Ammir Charles Physician) Heart rate 82 /min 82 /min [facility] (Ammir Charles Physician) Body height 67 in in [facility] (Ammir Charles Physician) Body weight 235 lb 235 lb [facility] (Ammir Charles Physician) Systolic blood 134 mm[Hg] 134 mm[Hg] [facility] ([place] pressure Charles Physician) Diastolic blood 70 mm[Hg] 70 mm[Hg] [facility] (A mmir pressure Charles Physician) Body mass index 36.8 kg/m2 36.8 kg/m2 [facility] (A mmir (BMI) [Ratio] Charles Physician) Inhaled oxygen 98 % 98 % [facility] ([place] concentration Charles Physician) Body temperature 98.7 F 98.7 F [facility] ( Ammir Charles Physician) Heart rate 82 /min 82 /min [facility] (Ammir Charles Physician) Body height in in [facility] (Ammir Charles Physician) Body weight 235 lb 235 lb [facility] (Ammir Charles Physician) Systolic blood 134 mm[Hg] 134 mm[Hg] [facility] ([place] pressure Charles Physician) Diastolic blood 70 mm[Hg] 70 mm[Hg] [facility] (A mmir pressure Charles Physician) Body mass index 36.8 kg/m2 36.8 kg/m2 [facility] (A mmir (BMI) [Ratio] Charles Physician) Inhaled oxygen 98 % 98 % [facility] ([place] concentration Charles Physician) Body temperature 98.7 F 98.7 F [facility] ( Ammir Charles Physician) Heart rate 82 /min 82 /min [facility] ([facility]) Body height in in [facility] ([facility]) Body weight 235 lb 235 lb [facility] ([facility]) Systolic blood 134 mm[Hg] 134 mm[Hg] [facility] ([facility] [employer] [employer] [facility]) Diastolic blood 70 mm[Hg] 70 mm[Hg] [facility] (A mm[facility] pressure [facility]) Body mass index 36.8 kg/m2 36.8 kg/m2 [facility] (A mmir (BMI) [Ratio] [facility]) Inhaled oxygen 98 % 98 % [facility] ([facility] [place] [employer] [facility]) Body temperature 98.7 F 98.7 F [facility] ( A[facility]) Heart rate 82 /min 82 /min [facility] ([facility]) Body height 67 in in [facility] ([facility]mm[facility]) Body weight 236 lb 236 lb [facility] ([facility]mm[facility]) Systolic blood 134 mm[Hg] 134 mm[Hg] [facility] ([facility] [employer] [employer] [facility]) Diastolic blood 70 mm[Hg] 70 mm[Hg] [facility] (A mmir pressure [facility]) Body mass index 37 kg/m2 37 kg/m2 [facility] (A mmir (BMI) [Ratio] [facility]) Inhaled oxygen 96 % 96 % [facility] ([employer] [place] [employer] [facility]) Body temperature 98.7 F 98.7 F [facility] ( A[facility]) Heart rate 89 /min 89 /min [facility] ([facility]mm[facility]) Body height 67 in in [facility] (Amm[facility]) Body weight 236 lb 236 lb [facility] ([facility]mm[facility]) Systolic blood 134 mm[Hg] 134 mm[Hg] [facility] ([facility] [employer] [employer] [facility]) Diastolic blood 70 mm[Hg] 70 mm[Hg] [facility] (A mm[facility] pressure [facility]) Body mass index 37 kg/m2 37 kg/m2 [facility] (A mmir (BMI) [Ratio] [facility]) Inhaled oxygen 96 % 96 % [facility] ([employer] [place] [employer] [facility]) Body temperature 98.7 F 98.7 F [facility] ( A[facility]) Heart rate 89 /min 89 /min [facility] ([facility]mm[facility]) Body height 67 in in [facility] (Amm[facility]) Body weight 236 lb 236 lb [facility] (Amm[facility]) Systolic blood 134 mm[Hg] 134 mm[Hg] [facility] ([employer] [employer] [facility]) Diastolic blood 70 mm[Hg] 70 mm[Hg] [facility] (A mm[facility] pressure [facility]) Body mass index 37 kg/m2 37 kg/m2 [facility] (A mmir (BMI) [Ratio] [facility]) Inhaled oxygen 96 % 96 % [facility] ([employer] [place] [employer] [facility]) Body temperature 98.7 F 98.7 F [facility] ( Amm[facility]) Heart rate 89 /min 89 /min [facility] (Amm[facility]) Body height 67 in in [facility] (Amm[facility]ician) Body weight 236 lb 236 lb [facility] (Amm[facility]) Systolic blood 134 mm[Hg] 134 mm[Hg] [facility] ([employer] [employer] [facility]) Diastolic blood 70 mm[Hg] 70 mm[Hg] [facility] (A mm[facility] pressure [facility]) Body mass index 37 kg/m2 37 kg/m2 [facility] (A mmir (BMI) [Ratio] [facility]) Inhaled oxygen 96 % 96 % [facility] ([employer] [place] [employer] [facility]) Body temperature 98.7 F 98.7 F [facility] ( Amm[facility]) Heart rate 89 /min 89 /min [facility] ([facility]mm[facility]) Body height in [facility] (Amm[facility]) Body weight 236 lb 236 lb [facility] (Amm[facility]) Systolic blood 134 mm[Hg] 134 mm[Hg] [facility] ([employer] [place] [employer] [facility]) Diastolic blood 70 mm[Hg] 70 mm[Hg] [facility] (A mm[facility] pressure [facility]) Body mass index 37 kg/m2 37 kg/m2 [facility] (A mmir (BMI) [Ratio] [facility]) Inhaled oxygen 96 % 96 % [facility] ([employer] [place] [employer] [facility]) Body temperature 98.7 F 98.7 F [facility] ( Amm[facility]) Heart rate 89 /min 89 /min [facility] (Amm[facility]) Body height in [facility] (Amm[facility]) Systolic blood 112 mm[Hg] 112 mm[Hg] [facility] ([employer] [place] [employer] [facility]) Diastolic blood 80 mm[Hg] 80 mm[Hg] [facility] (A mm[facility] pressure [facility]) Inhaled oxygen 98 % 98 % [facility] ([employer] [employer] [facility]) Body temperature 98.7 F 98.7 F [facility] ( Amm[facility]) Heart rate 92 /min 92 /min [facility] (Amm[facility]) Body height in [facility] (Amm[facility]) Systolic blood 112 mm[Hg] 112 mm[Hg] [facility] ([employer] [employer] [facility]) Diastolic blood 80 mm[Hg] 80 mm[Hg] [facility] (A mm[facility] pressure [facility]) Inhaled oxygen 98 % 98 % [facility] ([employer] [employer] [facility]) Body temperature 98.7 F 98.7 F [facility] ( Amm[facility]) Heart rate 92 /min 92 /min [facility] (Amm[facility]) Body height 67 in in [facility] ([facility]mm[facility]) Systolic blood 112 mm[Hg] 112 mm[Hg] [facility] ([employer] [employer] [facility]) Diastolic blood 80 mm[Hg] 80 mm[Hg] [facility] (A mm[facility] pressure [facility]) Inhaled oxygen 98 % 98 % [facility] ([employer] [place] [employer] [facility]) Body temperature 98.7 F 98.7 F [facility] ( Amm[facility]) Heart rate 92 /min 92 /min [facility] (Amm[facility]) Body height 67 in in [facility] (Amm[facility]ician) Systolic blood 112 mm[Hg] 112 mm[Hg] [facility] ([employer] [place] [employer] [facility]) Diastolic blood 80 mm[Hg] 80 mm[Hg] [facility] (A mm[facility] pressure [facility]) Inhaled oxygen 98 % 98 % [facility] ([employer] [employer] [facility]) Body temperature 98.7 F 98.7 F [facility] ( Amm[facility]) Heart rate 92 /min 92 /min [facility] (Amm[facility]) Body height 67 in in [facility] (Amm[facility]) Systolic blood 112 mm[Hg] 112 mm[Hg] [facility] ([employer] [employer] [facility]) Diastolic blood 80 mm[Hg] 80 mm[Hg] [facility] (A mm[facility] pressure [facility]) Inhaled oxygen 98 % 98 % [facility] ([employer] [employer] [facility]) Body temperature 98.7 F 98.7 F [facility] ( Amm[facility]) Heart rate 92 /min 92 /min [facility] (Amm[facility]) Body height 67 in in [facility] (Amm[facility]) Systolic blood 130 mm[Hg] 130 mm[Hg] [facility] ([employer] [place] [employer] [facility]) Diastolic blood 78 mm[Hg] 78 mm[Hg] [facility] (A mm[facility] pressure [facility]) Inhaled oxygen 98 % 98 % [facility] ([employer] [employer] [facility]) Body temperature 98.7 F 98.7 F [facility] ( Ammir [facility]) Heart rate 69 /min 69 /min [facility] (Amm[facility]) Body height 67 in in [facility] (Ammir [facility]ician) Systolic blood 130 mm[Hg] 130 mm[Hg] [facility] ([employer] [employer] [facility]) Diastolic blood 78 mm[Hg] 78 mm[Hg] [facility] (A mm[facility] pressure [facility]) Inhaled oxygen 98 % 98 % [facility] ([employer] [place] [employer] [facility]) Body temperature 98.7 F 98.7 F [facility] ( Amm[facility]) Heart rate 69 /min 69 /min [facility] (Amm[facility]) Systolic blood 130 mm[Hg] 130 mm[Hg] [facility] ([employer] [employer] [facility]) Diastolic blood 78 mm[Hg] 78 mm[Hg] [facility] (A mm[facility] pressure [facility]) Inhaled oxygen 98 % 98 % [facility] ([employer] [employer] [facility]) Body temperature 98.7 F 98.7 F [facility] ( Amm[facility]) Heart rate 69 /min 69 /min [facility] (Amm[facility]) Body height 67 in in [facility] (Amm[facility]) Body height 67 in in [facility] (Amm[facility]ician) Systolic blood 130 mm[Hg] 130 mm[Hg] [facility] ([employer] [place] [employer] [facility]) Diastolic blood 78 mm[Hg] 78 mm[Hg] [facility] (A mm[facility] pressure [facility]) Inhaled oxygen 98 % 98 % [facility] ([employer] [place] [employer] [facility]) Body temperature 98.7 F 98.7 F [facility] ( Amm[facility]) Heart rate 69 /min 69 /min [facility] (Amm[facility]) Body height 67 in in [facility] (Ammir [facility]ician) Systolic blood 130 mm[Hg] 130 mm[Hg] [facility] ([employer] [place] [employer] [facility]) Diastolic blood 78 mm[Hg] 78 mm[Hg] [facility] (A mm[facility] pressure [facility]) Inhaled oxygen 98 % 98 % [facility] ([employer] [place] [employer] [facility]) Body temperature 98.7 F 98.7 F [facility] ( Amm[facility]) Heart rate 69 /min 69 /min [facility] (Amm[facility]) Body weight 227 lb 227 lb [facility] (Amm[facility]ician) Systolic blood 116 mm[Hg] 116 mm[Hg] [facility] ([employer] [place] [employer] [facility]) Diastolic blood 70 mm[Hg] 70 mm[Hg] [facility] (A mm[facility] pressure [facility]) Inhaled oxygen 98 % 98 % [facility] ([employer] [employer] [facility]) Heart rate 85 /min 85 /min [facility] (Amm[facility]ician) Body weight 227 lb 227 lb [facility] (Amm[facility]ician) Systolic blood 116 mm[Hg] 116 mm[Hg] [facility] ([employer] [employer] [facility]) Diastolic blood 70 mm[Hg] 70 mm[Hg] [facility] (A mm[facility] pressure [facility]) Inhaled oxygen 98 % 98 % [facility] ([employer] [employer] [facility]) Heart rate 85 /min 85 /min [facility] ([facility]mm[facility]) Body weight 227 lb 227 lb [facility] (Amm[facility]) Systolic blood 116 mm[Hg] 116 mm[Hg] [facility] ([employer] [employer] [facility]) Diastolic blood 70 mm[Hg] 70 mm[Hg] [facility] (A mm[facility] pressure [facility]) Inhaled oxygen 98 % 98 % [facility] ([employer] [place] [employer] [facility]) Heart rate 85 /min 85 /min [facility] (Amm[facility]ician) Body weight 227 lb 227 lb [facility] ([facility]mm[facility]ician) Systolic blood 116 mm[Hg] 116 mm[Hg] [facility] ([employer] [employer] [facility]) Diastolic blood 70 mm[Hg] 70 mm[Hg] [facility] (A mm[facility] pressure [facility]) Inhaled oxygen 98 % 98 % [facility] ([employer] [employer] [facility]) Heart rate 85 /min 85 /min [facility] (Amm[facility]ician) Body weight 227 lb 227 lb [facility] (Amm[facility]ician) Systolic blood 116 mm[Hg] 116 mm[Hg] [facility] ([employer] [employer] [facility]) Diastolic blood 70 mm[Hg] 70 mm[Hg] [facility] (A mm[facility] pressure [facility]) Inhaled oxygen 98 % 98 % [facility] ([employer] [employer] [facility]) Heart rate 85 /min 85 /min [facility] (Amm[facility]) Body weight 226 lb 226 lb [facility] (Amm[facility]) Systolic blood 140 mm[Hg] 140 mm[Hg] [facility] ([employer] [employer] [facility]) Diastolic blood 85 mm[Hg] 85 mm[Hg] [facility] (A mm[facility] pressure [facility]) Inhaled oxygen 98 % 98 % [facility] ([employer] [employer] [facility]) Heart rate 94 /min 94 /min [facility] (Amm[facility]ician) Body weight 226 lb 226 lb [facility] (Amm[facility]) Systolic blood 140 mm[Hg] 140 mm[Hg] [facility] ([employer] [place] [employer] [facility]) Diastolic blood 85 mm[Hg] 85 mm[Hg] [facility] (A mm[facility] pressure [facility]) Inhaled oxygen 98 % 98 % [facility] ([employer] [employer] [facility]) Heart rate 94 /min 94 /min [facility] (Amm[facility]) Body weight 226 lb 226 lb [facility] (Amm[facility]) Systolic blood 140 mm[Hg] 140 mm[Hg] [facility] ([employer] [employer] [facility]) Diastolic blood 85 mm[Hg] 85 mm[Hg] [facility] (A mm[facility] pressure [facility]) Inhaled oxygen 98 % 98 % [facility] ([employer] [employer] [facility]) Heart rate 94 /min 94 /min [facility] (Amm[facility]ician) Body weight 226 lb 226 lb [facility] (Amm[facility]ician) Systolic blood 140 mm[Hg] 140 mm[Hg] [facility] ([employer] [employer] [facility]) Diastolic blood 85 mm[Hg] 85 mm[Hg] [facility] (A mm[facility] pressure [facility]) Inhaled oxygen 98 % 98 % [facility] ([employer] [employer] [facility]) Heart rate 94 /min 94 /min [facility] (Amm[facility]ician) Body weight 226 lb 226 lb [facility] (Amm[facility]) Systolic blood 140 mm[Hg] 140 mm[Hg] [facility] ([employer] [employer] [facility]) Diastolic blood 85 mm[Hg] 85 mm[Hg] [facility] (A mm[facility] pressure [facility]) Inhaled oxygen 98 % 98 % [facility] ([employer] [employer] [facility]) Heart rate 94 /min 94 /min [facility] (Amm[facility]) Systolic blood 110 mm[Hg] 110 mm[Hg] [facility] ([employer] [employer] [facility]) Diastolic blood 78 mm[Hg] 78 mm[Hg] [facility] (A mm[facility] pressure [facility]) Inhaled oxygen 98 % 98 % [facility] ([employer] [employer] [facility]) Heart rate 77 /min 77 /min [facility] (Amm[facility]ician) Systolic blood 110 mm[Hg] 110 mm[Hg] [facility] ([employer] [employer] [facility]) Diastolic blood 78 mm[Hg] 78 mm[Hg] [facility] (A mm[facility] pressure [facility]) Inhaled oxygen 98 % 98 % [facility] ([employer] [employer] [facility]) Heart rate 77 /min 77 /min [facility] (Amm[facility]ician) Systolic blood 110 mm[Hg] 110 mm[Hg] [facility] ([employer] [employer] [facility]) Diastolic blood 78 mm[Hg] 78 mm[Hg] [facility] (A mm[facility] pressure [facility]) Inhaled oxygen 98 % 98 % [facility] ([employer] [employer] [facility]) Heart rate 77 /min 77 /min [facility] (Amm[facility]) Systolic blood 110 mm[Hg] 110 mm[Hg] [facility] ([employer] [employer] [facility]) Diastolic blood 78 mm[Hg] 78 mm[Hg] [facility] (A mm[facility] pressure [facility]) Inhaled oxygen 98 % 98 % [facility] ([employer] [employer] [facility]) Heart rate 77 /min 77 /min [facility] (Amm[facility]ician) Systolic blood 110 mm[Hg] 110 mm[Hg] [facility] ([employer] [employer] [facility]) Diastolic blood 78 mm[Hg] 78 mm[Hg] [facility] (A mm[facility] pressure [facility]) Inhaled oxygen 98 % 98 % [facility] ([employer] [employer] [facility]) Heart rate 77 /min 77 /min [facility] (Amm[facility]) Diastolic blood 76 mm[Hg] 76 mm[Hg] [facility] (A mm[facility] pressure [facility]) Body mass index 35.1 kg/m2 35.1 kg/m2 [facility] (A mmir (BMI) [Ratio] [facility]) Inhaled oxygen 98 % 98 % [facility] ([employer] [employer] [facility]) Heart rate 64 /min 64 /min [facility] (Amm[facility]) Body height 67 in 67 in [facility] (Amm[facility]ician) Body weight 224.2 lb 224.2 lb [facility] (Ammir [facility]ician) Systolic blood 116 mm[Hg] 116 mm[Hg] [facility] ([employer] [employer] [facility]) Body height 67 in 67 in [facility] (Amm[facility]ician) Body weight 224.2 lb 224.2 lb [facility] (Ammir [facility]ician) Systolic blood 116 mm[Hg] 116 mm[Hg] [facility] ([employer] [employer] [facility]) Diastolic blood 76 mm[Hg] 76 mm[Hg] [facility] (A mm[facility] pressure [facility]) Body mass index 35.1 kg/m2 35.1 kg/m2 [facility] (A mmir (BMI) [Ratio] [facility]) Inhaled oxygen 98 % 98 % [facility] ([employer] [place] [employer] [facility]) Heart rate 64 /min 64 /min [facility] (Amm[facility]) Body height 67 in 67 in [facility] (Amm[facility]ician) Body weight 224.2 lb 224.2 lb [facility] (Amm[facility]ician) Systolic blood 116 mm[Hg] 116 mm[Hg] [facility] ([employer] [employer] [facility]) Diastolic blood 76 mm[Hg] 76 mm[Hg] [facility] (A mm[facility] pressure [facility]) Body mass index 35.1 kg/m2 35.1 kg/m2 [facility] (A mmir (BMI) [Ratio] [facility]) Inhaled oxygen 98 % 98 % [facility] ([employer] [employer] [facility]) Heart rate 64 /min 64 /min [facility] (Amm[facility]) Body height 67 in 67 in [facility] (Amm[facility]ician) Body weight 224.2 lb 224.2 lb [facility] (Amm[facility]ician) Systolic blood 116 mm[Hg] 116 mm[Hg] [facility] ([employer] [employer] [facility]) Diastolic blood 76 mm[Hg] 76 mm[Hg] [facility] (A mm[facility] pressure [facility]) Body mass index 35.1 kg/m2 35.1 kg/m2 [facility] (A mmir (BMI) [Ratio] [facility]) Inhaled oxygen 98 % 98 % [facility] ([employer] [employer] [facility]) Heart rate 64 /min 64 /min [facility] (Amm[facility]ician) Body weight 224.2 lb 224.2 lb [facility] (Ammir [facility]ician) Systolic blood 116 mm[Hg] 116 mm[Hg] [facility] ([employer] [employer] [facility]) Diastolic blood 76 mm[Hg] 76 mm[Hg] [facility] (A mm[facility] pressure [facility]) Body mass index 35.1 kg/m2 35.1 kg/m2 [facility] (A mmir (BMI) [Ratio] [facility]) Inhaled oxygen 98 % 98 % [facility] ([employer] [employer] [facility]) Heart rate 64 /min 64 /min [facility] (Amm[facility]) Body height in [facility] (Amm[facility]ician) Body height in [facility] (Ammir [facility]ician) Body weight 224.2 lb 224.2 lb [facility] (Ammir [facility]ician) Systolic blood 116 mm[Hg] 116 mm[Hg] [facility] ([employer] [employer] [facility]) Diastolic blood 76 mm[Hg] 76 mm[Hg] [facility] (A mm[facility] pressure [facility]) Body mass index 35.1 kg/m2 35.1 kg/m2 [facility] (A mmir (BMI) [Ratio] [facility]) Inhaled oxygen 98 % 98 % [facility] ([employer] [employer] [facility]) Heart rate 64 /min 64 /min [facility] (Amm[facility]) Body height in [facility] (Amm[facility]ician) Body weight 224.2 lb 224.2 lb [facility] (Ammir [facility]ician) Systolic blood 116 mm[Hg] 116 mm[Hg] [facility] ([employer] [employer] [facility]) Diastolic blood 76 mm[Hg] 76 mm[Hg] [facility] (A mm[facility] pressure [facility]) Body mass index 35.1 kg/m2 35.1 kg/m2 [facility] (A mmir (BMI) [Ratio] [facility]) Inhaled oxygen 98 % 98 % [facility] ([employer] [employer] [facility]) Heart rate 64 /min 64 /min [facility] (Amm[facility]) Body height in [facility] (Amm[facility]ician) Body weight 224.2 lb 224.2 lb [facility] (Ammir [facility]ician) Systolic blood 116 mm[Hg] 116 mm[Hg] [facility] ([employer] [employer] [facility]) Diastolic blood 76 mm[Hg] 76 mm[Hg] [facility] (A mm[facility] pressure [facility]) Body mass index 35.1 kg/m2 35.1 kg/m2 [facility] (A mmir (BMI) [Ratio] [facility]) Inhaled oxygen 98 % 98 % [facility] ([employer] [employer] [facility]) Heart rate 64 /min 64 /min [facility] (Amm[facility]) Body height in [facility] (Amm[facility]ician) Body weight 224.2 lb 224.2 lb [facility] (Ammir [facility]ician) Systolic blood 116 mm[Hg] 116 mm[Hg] [facility] ([employer] [employer] [facility]) Diastolic blood 76 mm[Hg] 76 mm[Hg] [facility] (A mm[facility] pressure [facility]) Body mass index 35.1 kg/m2 35.1 kg/m2 [facility] (A mmir (BMI) [Ratio] [facility]) Inhaled oxygen 98 % 98 % [facility] ([employer] [employer] [facility]) Heart rate 64 /min 64 /min [facility] (Amm[facility]) Body height 67 in in [facility] (Amm[facility]ician) Body weight 224.2 lb 224.2 lb [facility] (Amm[facility]ician) Systolic blood 116 mm[Hg] 116 mm[Hg] [facility] ([employer] [employer] [facility]) Diastolic blood 76 mm[Hg] 76 mm[Hg] [facility] (A mm[facility] pressure [facility]) Body mass index 35.1 kg/m2 35.1 kg/m2 [facility] (A mmir (BMI) [Ratio] [facility]) Inhaled oxygen 98 % 98 % [facility] ([employer] [employer] [facility]) Heart rate 64 /min 64 /min [facility] (Amm[facility]ician) Body height in [facility] (Amm[facility]) Body weight 220 lb 220 lb [facility] (Ammir [facility]ician) Systolic blood 130 mm[Hg] 130 mm[Hg] [facility] ([employer] [employer] [facility]) Diastolic blood 80 mm[Hg] 80 mm[Hg] [facility] (A mm[facility] pressure [facility]) Body mass index 34.5 kg/m2 34.5 kg/m2 [facility] (A mmir (BMI) [Ratio] [facility]) Inhaled oxygen 97 % 97 % [facility] ([employer] [employer] [facility]) Heart rate 87 /min 87 /min [facility] (Amm[facility]) Body height 67 in in [facility] (Amm[facility]ician) Body weight 220 lb 220 lb [facility] (Ammir [facility]ician) Systolic blood 130 mm[Hg] 130 mm[Hg] [facility] ([employer] [employer] [facility]) Diastolic blood 80 mm[Hg] 80 mm[Hg] [facility] (A mm[facility] pressure [facility]) Body mass index 34.5 kg/m2 34.5 kg/m2 [facility] (A mmir (BMI) [Ratio] [facility]) Inhaled oxygen 97 % 97 % [facility] ([employer] [employer] [facility]) Heart rate 87 /min 87 /min [facility] (Ammir [facility]ician) Diastolic blood 80 mm[Hg] 80 mm[Hg] [facility] (A mm[facility] pressure [facility]) Body mass index 34.5 kg/m2 34.5 kg/m2 [facility] (A mmir (BMI) [Ratio] [facility]) Inhaled oxygen 97 % 97 % [facility] ([employer] [employer] [facility]) Heart rate 87 /min 87 /min [facility] (Amm[facility]) Body height 67 in in [facility] (Amm[facility]ician) Body weight 220 lb 220 lb [facility] (Ammir [facility]ician) Systolic blood 130 mm[Hg] 130 mm[Hg] [facility] ([employer] [employer] [facility]) Body height 67 in in [facility] (Amm[facility]ician) Body weight 220 lb 220 lb [facility] (Amm[facility]ician) Systolic blood 130 mm[Hg] 130 mm[Hg] [facility] ([employer] [employer] [facility]) Diastolic blood 80 mm[Hg] 80 mm[Hg] [facility] (A mm[facility] pressure [facility]) Body mass index 34.5 kg/m2 34.5 kg/m2 [facility] (A mmir (BMI) [Ratio] [facility]) Inhaled oxygen 97 % 97 % [facility] ([employer] [employer] [facility]) Heart rate 87 /min 87 /min [facility] (Amm[facility]) Body height 67 in in [facility] (Amm[facility]ician) Body weight 220 lb 220 lb [facility] (Amm[facility]ician) Systolic blood 130 mm[Hg] 130 mm[Hg] [facility] ([employer] [employer] [facility]) Diastolic blood 80 mm[Hg] 80 mm[Hg] [facility] (A mm[facility] pressure [facility]) Body mass index 34.5 kg/m2 34.5 kg/m2 [facility] (A mmir (BMI) [Ratio] [facility]) Inhaled oxygen 97 % 97 % [facility] ([employer] [employer] [facility]) Heart rate 87 /min 87 /min [facility] (Amm[facility]) Body weight 210 lb 210 lb [facility] (Amm[facility]ician) Systolic blood 120 mm[Hg] 120 mm[Hg] [facility] ([employer] [employer] [facility]) Diastolic blood 80 mm[Hg] 80 mm[Hg] [facility] (A mm[facility] pressure [facility]) Inhaled oxygen 95 % 95 % [facility] ([employer] [employer] [facility]) Heart rate 82 /min 82 /min [facility] (Amm[facility]ician) Body weight 210 lb 210 lb [facility] (Amm[facility]ician) Systolic blood 120 mm[Hg] 120 mm[Hg] [facility] ([employer] [employer] [facility]) Diastolic blood 80 mm[Hg] 80 mm[Hg] [facility] (A mm[facility] pressure [facility]) Inhaled oxygen 95 % 95 % [facility] ([employer] [employer] [facility]) Heart rate 82 /min 82 /min [facility] (Amm[facility]ician) Body weight 210 lb 210 lb [facility] (Amm[facility]) Systolic blood 120 mm[Hg] 120 mm[Hg] [facility] ([employer] [employer] [facility]) Diastolic blood 80 mm[Hg] 80 mm[Hg] [facility] (A mmir pressure [facility]) Inhaled oxygen 95 % 95 % [facility] ([employer] [employer] [facility]) Heart rate 82 /min 82 /min [facility] (Amm[facility]) Inhaled oxygen 95 % 95 % [facility] ([employer] [employer] [facility]) Heart rate 82 /min 82 /min [facility] (Amm[facility]ician) Body weight 210 lb 210 lb [facility] (Amm[facility]ician) Systolic blood 120 mm[Hg] 120 mm[Hg] [facility] ([employer] [employer] [facility]) Diastolic blood 80 mm[Hg] 80 mm[Hg] [facility] (A mmir pressure [facility]) Body weight 210 lb 210 lb [facility] (Amm[facility]ician) Systolic blood 120 mm[Hg] 120 mm[Hg] [facility] ([employer] [employer] [facility]) Diastolic blood 80 mm[Hg] 80 mm[Hg] [facility] (A mm[facility] pressure [facility]) Inhaled oxygen 95 % 95 % [facility] ([employer] [employer] [facility]) Heart rate 82 /min 82 /min [facility] (Amm[facility]ician) Systolic blood 120 mm[Hg] 120 mm[Hg] [facility] ([employer] [facility]) Diastolic blood 70 mm[Hg] 70 mm[Hg] [facility] (A mm[facility] pressure [facility]) Inhaled oxygen 98 % 98 % [facility] ([employer] [employer] [facility]) Heart rate 72 /min 72 /min [facility] (Amm[facility]) Heart rate 72 /min 72 /min [facility] (Amm[facility]) Systolic blood 120 mm[Hg] 120 mm[Hg] [facility] ([employer] [facility]) Diastolic blood 70 mm[Hg] 70 mm[Hg] [facility] (A mm[facility] pressure [facility]) Inhaled oxygen 98 % 98 % [facility] ([employer] [employer] [facility]) Systolic blood 120 mm[Hg] 120 mm[Hg] [facility] ([employer] [facility]) Diastolic blood 70 mm[Hg] 70 mm[Hg] [facility] (A mmir pressure [facility]) Inhaled oxygen 98 % 98 % [facility] ([employer] [employer] [facility]) Heart rate 72 /min 72 /min [facility] (Amm[facility]) Diastolic blood 70 mm[Hg] 70 mm[Hg] [facility] (A mmir pressure [facility]) Inhaled oxygen 98 % 98 % [facility] ([employer] [employer] [facility]) Heart rate 72 /min 72 /min [facility] (Amm[facility]ician) Systolic blood 120 mm[Hg] 120 mm[Hg] [facility] ([employer] [facility]) Systolic blood 120 mm[Hg] 120 mm[Hg] [facility] ([employer] [facility]) Diastolic blood 70 mm[Hg] 70 mm[Hg] [facility] (A mmir pressure [facility]) Inhaled oxygen 98 % 98 % [facility] ([employer] [employer] [facility]) Heart rate 72 /min 72 /min [facility] (Amm[facility]) Systolic blood 120 mm[Hg] 120 mm[Hg] [facility] ([employer] [facility]) Diastolic blood 80 mm[Hg] 80 mm[Hg] [facility] (A mmir pressure [facility]) Inhaled oxygen 97 % 97 % [facility] ([employer] [employer] [facility]) Heart rate 70 /min 70 /min [facility] (Amm[facility]) Systolic blood 120 mm[Hg] 120 mm[Hg] [facility] ([employer] [facility]) Diastolic blood 80 mm[Hg] 80 mm[Hg] [facility] (A mmir pressure [facility]) Inhaled oxygen 97 % 97 % [facility] ([employer] [facility]) Heart rate 70 /min 70 /min [facility] (Amm[facility]) Systolic blood 120 mm[Hg] 120 mm[Hg] [facility] ([facility] pressure [facility]) Diastolic blood 80 mm[Hg] 80 mm[Hg] [facility] (A mmir pressure [facility]) Inhaled oxygen 97 % 97 % [facility] (Am [place] concentration [facility]) Heart rate 70 /min 70 /min [facility] (Ammir [facility]) Systolic blood 120 mm[Hg] 120 mm[Hg] [facility] (Am [place] pressure [facility]) Diastolic blood 80 mm[Hg] 80 mm[Hg] [facility] (A mmir pressure [facility]) Inhaled oxygen 97 % 97 % [facility] (Am [place] concentration [facility]) Heart rate 70 /min 70 /min [facility] (Ammir [facility]) Systolic blood 120 mm[Hg] 120 mm[Hg] [facility] (Am [place] pressure [facility]) Diastolic blood 80 mm[Hg] 80 mm[Hg] [facility] (A mmir pressure [facility]) Inhaled oxygen 97 % 97 % [facility] (Am [place] concentration [facility]) Heart rate 70 /min 70 /min [facility] (Ammir [facility]) Body height 67 in 67 in [facility] (Ammir [facility]) Body weight 224 lb 224 lb [facility] (Ammir [facility]) Systolic blood 122 mm[Hg] 122 mm[Hg] [facility] (Am [place] pressure [facility]) Diastolic blood 70 mm[Hg] 70 mm[Hg] [facility] (A mmir pressure [facility]) Body mass index 35.1 kg/m2 35.1 kg/m2 [facility] (A mmir (BMI) [Ratio] [facility]) Inhaled oxygen 99 % 99 % [facility] (Am [place] concentration [facility]) Heart rate 65 /min 65 /min [facility] (Ammir [facility]) Body height 67 in 67 in [facility] (Ammir [facility]) Body weight 224 lb 224 lb [facility] (Ammir [facility]) Systolic blood 122 mm[Hg] 122 mm[Hg] [facility] (Am [place] pressure [facility]) Diastolic blood 70 mm[Hg] 70 mm[Hg] [facility] (A mmir pressure [facility]) Body mass index 35.1 kg/m2 35.1 kg/m2 [facility] (A mmir (BMI) [Ratio] [facility]) Inhaled oxygen 99 % 99 % [facility] (Am [place] concentration [facility]) Heart rate 65 /min 65 /min [facility] (Ammir [facility]) Body height 67 in in [facility] (Ammir [facility]) Body weight 224 lb 224 lb [facility] (Ammir [facility]) Systolic blood 122 mm[Hg] 122 mm[Hg] [facility] (Am [place] pressure [facility]) Diastolic blood 70 mm[Hg] 70 mm[Hg] [facility] (A mmir pressure [facility]) Body mass index 35.1 kg/m2 35.1 kg/m2 [facility] (A mmir (BMI) [Ratio] [facility]) Inhaled oxygen 99 % 99 % [facility] (Am [place] concentration [facility]) Heart rate 65 /min 65 /min [facility] (Ammir [facility]ician) Body height in [facility] (Ammir [facility]) Body weight 224 lb 224 lb [facility] (Ammir [facility]) Systolic blood 122 mm[Hg] 122 mm[Hg] [facility] (Am [place] pressure [facility]) Diastolic blood 70 mm[Hg] 70 mm[Hg] [facility] (A mmir pressure [facility]) Body mass index 35.1 kg/m2 35.1 kg/m2 [facility] (A mmir (BMI) [Ratio] [facility]) Inhaled oxygen 99 % 99 % [facility] (Am [place] concentration [facility]) Heart rate 65 /min 65 /min [facility] (Ammir [facility]) Body height in [facility] (Ammir [facility]) Body weight 224 lb 224 lb [facility] (Ammir [facility]ician) Systolic blood 122 mm[Hg] 122 mm[Hg] [facility] (Am [place] pressure [facility]) Diastolic blood 70 mm[Hg] 70 mm[Hg] [facility] (A mmir pressure [facility]) Body mass index 35.1 kg/m2 35.1 kg/m2 [facility] (A mmir (BMI) [Ratio] [facility]) Inhaled oxygen 99 % 99 % [facility] ([employer] [place] concentration [facility]) Heart rate 65 /min 65 /min [facility] (Ammir [facility]ician) Body height in [facility] (Ammir [facility]) Body weight 229 lb 229 lb [facility] (Ammir [facility]) Systolic blood 116 mm[Hg] 116 mm[Hg] [facility] (Am [place] pressure [facility]) Diastolic blood 72 mm[Hg] 72 mm[Hg] [facility] (A mmir pressure [facility]) Body mass index 35.9 kg/m2 35.9 kg/m2 [facility] (A mmir (BMI) [Ratio] [facility]) Inhaled oxygen 98 % 98 % [facility] (Am [place] concentration [facility]) Heart rate 73 /min 73 /min [facility] (Ammir Charlse Physician) Body height 67 in in [facility] (Ammir [facility]) Body weight 229 lb 229 lb [facility] (Ammir [facility]ician) Systolic blood 116 mm[Hg] 116 mm[Hg] [facility] (Am [place] pressure [facility]) Diastolic blood 72 mm[Hg] 72 mm[Hg] [facility] (A mmir pressure [facility]) Body mass index 35.9 kg/m2 35.9 kg/m2 [facility] (A mmir (BMI) [Ratio] [facility]) Inhaled oxygen 98 % 98 % [facility] (Am [place] concentration [facility]) Heart rate 73 /min 73 /min [facility] (Ammir [facility]ician) Body height in in [facility] (Ammir [facility]) Body weight 229 lb 229 lb [facility] (Ammir [facility]) Systolic blood 116 mm[Hg] 116 mm[Hg] [facility] (Am [place] pressure [facility]) Diastolic blood 72 mm[Hg] 72 mm[Hg] [facility] (A mmir pressure [facility]) Body mass index 35.9 kg/m2 35.9 kg/m2 [facility] (A mmir (BMI) [Ratio] [facility]) Inhaled oxygen 98 % 98 % [facility] (Am [place] concentration [facility]) Heart rate 73 /min 73 /min [facility] (Ammir [facility]ician) Body height 67 in in [facility] (Ammir [facility]ician) Body weight 229 lb 229 lb [facility] (Ammir [facility]ician) Systolic blood 116 mm[Hg] 116 mm[Hg] [facility] (Am [place] pressure [facility]ician) Diastolic blood 72 mm[Hg] 72 mm[Hg] [facility] (A mmir pressure [facility]) Body mass index 35.9 kg/m2 35.9 kg/m2 [facility] (A mmir (BMI) [Ratio] [facility]) Inhaled oxygen 98 % 98 % [facility] (Am [place] concentration [facility]) Heart rate 73 /min 73 /min [facility] (Ammir [facility]) Body height 67 in [facility] (Ammir [facility]ician) Body weight 229 lb 229 lb [facility] (Ammir [facility]ician) Systolic blood 116 mm[Hg] 116 mm[Hg] [facility] (Am [place] pressure [facility]) Diastolic blood 72 mm[Hg] 72 mm[Hg] [facility] (A mmir pressure [facility]) Body mass index 35.9 kg/m2 35.9 kg/m2 [facility] (A mmir (BMI) [Ratio] [facility]) Inhaled oxygen 98 % 98 % [facility] (Am [place] concentration [facility]) Heart rate 73 /min 73 /min [facility] (Ammir [facility]ician) Body height in [facility] (Ammir [facility]ician) Body weight 228 lb 228 lb [facility] (Ammir [facility]ician) Systolic blood 110 mm[Hg] 110 mm[Hg] [facility] (Am [place] pressure [facility]) Diastolic blood 66 mm[Hg] 66 mm[Hg] [facility] (A mmir pressure [facility]) Body mass index 35.7 kg/m2 35.7 kg/m2 [facility] (A mmir (BMI) [Ratio] [facility]) Inhaled oxygen 98 % 98 % [facility] (Am [place] concentration [facility]) Body temperature 98.2 F 98.2 F [facility] ( Ammir [facility]) Body height in [facility] (Ammir [facility]) Body weight 228 lb 228 lb [facility] (Ammir [facility]ician) Systolic blood 110 mm[Hg] 110 mm[Hg] [facility] (Am [place] pressure [facility]) Diastolic blood 66 mm[Hg] 66 mm[Hg] [facility] (A mmir pressure [facility]) Body mass index 35.7 kg/m2 35.7 kg/m2 [facility] (A mmir (BMI) [Ratio] [facility]) Inhaled oxygen 98 % 98 % [facility] (Am [place] concentration [facility]) Body temperature 98.2 F 98.2 F [facility] ( Ammir [facility]) Body height in [facility] (Ammir [facility]) Body weight 228 lb 228 lb [facility] (Ammir [facility]) Systolic blood 110 mm[Hg] 110 mm[Hg] [facility] (Am [place] pressure [facility]) Diastolic blood 66 mm[Hg] 66 mm[Hg] [facility] (A mmir pressure [facility]) Body mass index 35.7 kg/m2 35.7 kg/m2 [facility] (A mmir (BMI) [Ratio] [facility]) Inhaled oxygen 98 % 98 % [facility] (Am [place] concentration [facility]) Body temperature 98.2 F 98.2 F [facility] ( Ammir [facility]) Body height 67 in in [facility] (Ammir [facility]) Body weight 228 lb 228 lb [facility] (Ammir [facility]ician) Systolic blood 110 mm[Hg] 110 mm[Hg] [facility] (Am [place] pressure [facility]) Diastolic blood 66 mm[Hg] 66 mm[Hg] [facility] (A mmir pressure [facility]) Body mass index 35.7 kg/m2 35.7 kg/m2 [facility] (A mmir (BMI) [Ratio] [facility]) Inhaled oxygen 98 % 98 % [facility] (Am [place] concentration [facility]) Body temperature 98.2 F 98.2 F [facility] ( Ammir [facility]) Inhaled oxygen 98 % 98 % [facility] (Am [place] concentration [facility]) Body temperature 98.2 F 98.2 F [facility] ( Ammir [facility]) Body height 67 in in [facility] (Ammir [facility]) Body weight 228 lb 228 lb [facility] (Ammir [facility]) Systolic blood 110 mm[Hg] 110 mm[Hg] [facility] (Am [place] pressure [facility]) Diastolic blood 66 mm[Hg] 66 mm[Hg] [facility] (A mmir pressure [facility]) Body mass index 35.7 kg/m2 35.7 kg/m2 [facility] (A mmir (BMI) [Ratio] [facility]) Systolic blood 110 mm[Hg] 110 mm[Hg] [facility] (Am [place] pressure [facility]) Diastolic blood 70 mm[Hg] 70 mm[Hg] [facility] (A mmir pressure [facility]) Inhaled oxygen 99 % 99 % [facility] (Am [place] concentration [facility]) Body temperature 98.3 F 98.3 F [facility] ( Ammir [facility]) Heart rate 74 /min 74 /min [facility] (Ammir Chalres Physician) Systolic blood 110 mm[Hg] 110 mm[Hg] [facility] (Am [place] pressure [facility]) Diastolic blood 70 mm[Hg] 70 mm[Hg] [facility] (A mmir pressure [facility]) Inhaled oxygen 99 % 99 % [facility] (Am [place] concentration [facility]) Body temperature 98.3 F 98.3 F [facility] ( Ammir [facility]) Heart rate 74 /min 74 /min [facility] (Ammir [facility]) Systolic blood 110 mm[Hg] 110 mm[Hg] [facility] (Am [place] pressure [facility]) Diastolic blood 70 mm[Hg] 70 mm[Hg] [facility] (A mmir pressure [facility]) Inhaled oxygen 99 % 99 % [facility] (Am [place] concentration [facility]) Body temperature 98.3 F 98.3 F [facility] ( Ammir [facility]) Heart rate 74 /min 74 /min [facility] (Ammir [facility]) Systolic blood 110 mm[Hg] 110 mm[Hg] [facility] (Am [place] pressure [facility]) Diastolic blood 70 mm[Hg] 70 mm[Hg] [facility] (A mmir pressure [facility]) Inhaled oxygen 99 % 99 % [facility] (Am [place] concentration [facility]) Body temperature 98.3 F 98.3 F [facility] ( Ammir [facility]) Heart rate 74 /min 74 /min [facility] (Ammir [facility]ician) Systolic blood 110 mm[Hg] 110 mm[Hg] [facility] (Am [place] pressure [facility]) Diastolic blood 70 mm[Hg] 70 mm[Hg] [facility] (A mmir pressure [facility]) Inhaled oxygen 99 % 99 % [facility] (Am [place] concentration [facility]) Body temperature 98.3 F 98.3 F [facility] ( Ammir [facility]ician) Heart rate 74 /min 74 /min [facility] (Ammir [facility]ician) Body height 67 in 67 in [facility] (Ammir [facility]ician) Body weight 217 lb 217 lb [facility] (Ammir [facility]ician) Systolic blood 110 mm[Hg] 110 mm[Hg] [facility] (Am [place] pressure [facility]) Diastolic blood 70 mm[Hg] 70 mm[Hg] [facility] (A mmir pressure [facility]) Body mass index 34 kg/m2 34 kg/m2 [facility] (A mmir (BMI) [Ratio] [facility]) Body temperature 98 F 98 F [facility] ( Ammir [facility]ician) Heart rate 84 /min 84 /min [facility] (Ammir [facility]) Body height 67 in in [facility] (Ammir [facility]ician) Body weight 217 lb 217 lb [facility] (Ammir [facility]ician) Systolic blood 110 mm[Hg] 110 mm[Hg] [facility] (Am [place] pressure [facility]) Diastolic blood 70 mm[Hg] 70 mm[Hg] [facility] (A mmir pressure [facility]) Body mass index 34 kg/m2 34 kg/m2 [facility] (A mmir (BMI) [Ratio] [facility]) Body temperature 98 F 98 F [facility] ( Ammir [facility]ician) Heart rate 84 /min 84 /min [facility] (Ammir [facility]) Body mass index 34 kg/m2 34 kg/m2 [facility] (A mmir (BMI) [Ratio] [facility]) Body temperature 98 F 98 F [facility] ( Ammir [facility]ician) Heart rate 84 /min 84 /min [facility] (Ammir [facility]) Body height in in [facility] (Ammir [facility]ician) Body weight 217 lb 217 lb [facility] (Ammir [facility]ician) Systolic blood 110 mm[Hg] 110 mm[Hg] [facility] (Am [place] pressure [facility]) Diastolic blood 70 mm[Hg] 70 mm[Hg] [facility] (A mmir pressure [facility]) Body height in in [facility] (Ammir [facility]ician) Body weight 217 lb 217 lb [facility] (Ammir [facility]ician) Systolic blood 110 mm[Hg] 110 mm[Hg] [facility] (Am [place] pressure [facility]) Diastolic blood 70 mm[Hg] 70 mm[Hg] [facility] (A mmir pressure [facility]) Body mass index 34 kg/m2 34 kg/m2 [facility] (A mmir (BMI) [Ratio] [facility]) Body temperature 98 F 98 F [facility] ( Ammir [facility]ician) Heart rate 84 /min 84 /min [facility] (Ammir [facility]ician) Body height 67 in in [facility] (Ammir [facility]ician) Body weight 217 lb 217 lb [facility] (Ammir [facility]ician) Systolic blood 110 mm[Hg] 110 mm[Hg] [facility] (Am [place] pressure [facility]) Diastolic blood 70 mm[Hg] 70 mm[Hg] [facility] (A mmir pressure [facility]) Body mass index 34 kg/m2 34 kg/m2 [facility] (A mmir (BMI) [Ratio] [facility]) Body temperature 98 F 98 F [facility] ( Ammir [facility]ician) Heart rate 84 /min 84 /min [facility] (Ammir [facility]) Body height 67 in in [facility] (Ammir [facility]ician) Body weight 215 lb 215 lb [facility] (Ammir [facility]ician) Systolic blood 100 mm[Hg] 100 mm[Hg] [facility] (Am [place] pressure [facility]) Diastolic blood 70 mm[Hg] 70 mm[Hg] [facility] (A mmir pressure [facility]) Body mass index 33.7 kg/m2 33.7 kg/m2 [facility] (A mmir (BMI) [Ratio] [facility]) Inhaled oxygen 90 % 90 % [facility] (Am [place] concentration [facility]) Body temperature 97.8 F 97.8 F [facility] ( Ammir [facility]ician) Heart rate 94 /min 94 /min [facility] (Ammir [facility]) Body height 67 in in [facility] (Ammir [facility]ician) Body weight 215 lb 215 lb [facility] (Ammir [facility]ician) Systolic blood 100 mm[Hg] 100 mm[Hg] [facility] (Am [place] pressure [facility]) Diastolic blood 70 mm[Hg] 70 mm[Hg] [facility] (A mmir pressure [facility]) Body mass index 33.7 kg/m2 33.7 kg/m2 [facility] (A mmir (BMI) [Ratio] [facility]) Inhaled oxygen 90 % 90 % [facility] (Am [place] concentration [facility]) Body temperature 97.8 F 97.8 F [facility] ( Ammir [facility]ician) Heart rate 94 /min 94 /min [facility] (Ammir [facility]) Body height 67 in in [facility] (Ammir [facility]ician) Body weight 215 lb 215 lb [facility] (Ammir [facility]ician) Systolic blood 100 mm[Hg] 100 mm[Hg] [facility] (Am [place] pressure [facility]) Diastolic blood 70 mm[Hg] 70 mm[Hg] [facility] (A mmir pressure [facility]) Body mass index 33.7 kg/m2 33.7 kg/m2 [facility] (A mmir (BMI) [Ratio] [facility]) Inhaled oxygen 90 % 90 % [facility] (Am [place] concentration [facility]) Body temperature 97.8 F 97.8 F [facility] ( Ammir [facility]ician) Heart rate 94 /min 94 /min [facility] (Ammir [facility]) Body height 67 in 67 in [facility] (Ammir [facility]ician) Body weight 215 lb 215 lb [facility] (Ammir [facility]ician) Systolic blood 100 mm[Hg] 100 mm[Hg] [facility] (Am [place] pressure [facility]) Diastolic blood 70 mm[Hg] 70 mm[Hg] [facility] (A mmir pressure [facility]) Body mass index 33.7 kg/m2 33.7 kg/m2 [facility] (A mmir (BMI) [Ratio] [facility]) Inhaled oxygen 90 % 90 % [facility] (Am [place] concentration [facility]) Body temperature 97.8 F 97.8 F [facility] ( Ammir [facility]ician) Heart rate 94 /min 94 /min [facility] (Ammir [facility]ician) Body height 67 in 67 in [facility] (Ammir [facility]ician) Body weight 215 lb 215 lb [facility] (Ammir [facility]ician) Systolic blood 100 mm[Hg] 100 mm[Hg] [facility] (Am [place] pressure [facility]ician) Diastolic blood 70 mm[Hg] 70 mm[Hg] [facility] (A mmir pressure [facility]ician) Body mass index 33.7 kg/m2 33.7 kg/m2 [facility] (A mmir (BMI) [Ratio] [facility]) Inhaled oxygen 90 % 90 % [facility] (Am [place] concentration [facility]) Body temperature 97.8 F 97.8 F [facility] ( Ammir [facility]ician) Heart rate 94 /min 94 /min [facility] (Ammir Charles Physician) Patient Treatment Plan of Care Planned Activity Planned Date Details Description Data Source (s) Tylenol Infusion (AD 10/22/2019 [facility] 11:46:31 PM EDT [facility] Benadryl (Diphenhyd 01/15/2019 [facility] 01:20:47 PM EST [employer] [facility] Toradol 30 mg/mL (Ke 01/15/2019 [facility] 01:20:38 PM EST [employer] [facility] Tylenol (Acetaminoph 01/15/2019 [facility] 01:20:08 PM [facility] Reglan (Metocloprami 01/15/2019 [facility] 01:19:59 PM [facility] 0.9% NaCl IV 01/06/2019 [facility] 08:24:46 AM [facility] (Diazepam) Or 01/06/2019 [facility] 08:24:32 AM [facility] Ambiq Micro Toradol 30 mg/mL (Ke 01/06/2019 [facility] 08:23:40 AM [facility] Ambiq Micro Diphenhydramine (Nirav 01/06/2019 [facility] 08:22:46 AM [facility] Ambiq Micro Reglan (Metocloprami 01/06/2019 [facility] 08:22:38 AM [facility] Prednisone 20 MG Oral [facility] Ket[facility] Tromethamine 10 Sa int [facility] Ketorolac Tromethamine 10 int [facility] rizatriptan 10 MG Oral Tristar [facility] [place]
--- OUTSIDE RECORDS SUMMARY | 2019-11-13 20:02 | XMS ---
:1970 Author Organization [facility] Care Team Providers Name Role Phone NOEL [...] is protected by Article 27-F of the [facility] Public Health law. If you continue you may haveaccess to information: Regarding HIV / AIDS; Provided by facilities licensed or operated by the [facility] Office of Mental Health; or Provided by the [facility] Office for People With Developmental Disabilities. If such information is present, then the following [facility] mandated warning applies: This information has been [...] law may result in a fine or fpc sentence or both. A general authorization for the release of medical or other information is NOT sufficient authorization for further disclosure. Allergies and Adverse Reactions Type Description Substance Reaction Status Data Source(s ) Drug allergy No Known Drug No Known Drug [facility] Encounters Encounter Providers Location Date Indications Data Source(s ) Outpatient Attender: 11/15/2019 I31.96 R07.9 R00.2 [facility], 06:00:[address] [facility] Care ZVIAdmitter: EDT [facility] MANUEL CARDOSOadri: WINSTON MORALES MD I31.96 R07.9 R00.2 Attender: Winston Morales 11/13/2019 12:00:00 AM E DT MEDGEN (Adalbertominiharika Morales Physician) Office Attender: Winston Morales 11/13/2019 12:00:00 AM E DT MEDGEN (Adalbertominiharika Morales Physician) Office Attender: Winston Morales 11/13/2019 12:00:00 AM E DT MEDGEN (Adalbertominiharika Morales Physician) Office Emergency Attender: YAKELIN ED STAFF H 10/30/2019 06:42:00 AM [facility] PHYSICIANAttender: ED STAFF EDT - 10/30/2019 [facility] PHYSICIANAttender: STAFF ED 01:17:00 PM EDT STAFF PHYSICIANAdmitter: [facility] ED STAFF PHYSICIAN Patient discharged. Attender: Winston Morales 10/30/2019 12:00:00 AM E DT MEDGEN (Winston Morales Physician) Office Attender: Winston Morales 10/30/2019 12:00:00 AM E DT MEDGEN (Adalbertominiharika Morales Physician) Office Emergency Attender: KAT 10/22/2019 CHEST PAIN [facility] JASONAttender: 11:01:00 PM EDT PQR [facility] EMERGENCY SERVICE, [facility] ation XAdmitter: DERRICK STEPHENS CHEST PAIN PQR [...] DT MEDGEN (Ammir Charles Physician) [facility]/14/2019 12:00:00 AM E DT MEDGEN (Ammir Charles Physician) [facility] 10/14/2019 12:00:00 AM E DT MEDGEN (Ammir Charles Physician) [facility] 10/14/2019 12:00:00 AM E DT MEDGEN (Ammir Charles Physician) Office Attender: [facility] Charles 10/14/2019 12:00:00 AM E DT MEDGEN (Ammir Charles Physician) Office [facility] 10/14/2019 12:00:00 AM E DT MEDGEN (Ammir Charles Physician) Office [facility] 10/14/2019 12:00:00 AM E DT MEDGEN (Ammir Charles Physician) Office [facility] 10/14/2019 12:00:00 AM E DT MEDGEN (Ammir Charles Physician) Office Attender: [facility] Charles 10/14/2019 12:00:00 AM E DT MEDGEN (Ammir Charles Physician) Office [facility] 10/14/2019 12:00:00 AM E DT MEDGEN (Ammir Charles Physician) Office Outpatient Attender: [email or web address] [facility] 09/28/2019 12:45:00 PM [facility] ([facility] EDT Collaborative) Patient admitted. Emergency Attender: ED STAFF H 09/06/2019 05:14:00 PM [facility] PHYSICIANAttender: STAFF ED EDT - 09/06/2019 [facility] STAFF PHYSICIANAdmitter: ED 10:05:00 PM EDT STAFF PHYSICIAN Patient discharged. Emergency Attender: CRISS 06/09/2019 12:36:00 CHEST MITCHELL [facility] IVANAttender: EMERGENCY AM EDT H [facility] Care SERVICE, XAdmitter: LAURA Vila CHEST PAIN Outpatient Attender: STJRH9 [facility] 05/17/2019 05:47:41 AM [facility] ([facility] EDT Collaborative) Patient admitted. Emergency Attender: YAKELIN ED STAFF H 03/31/2019 08:00:00 AM [facility] PHYSICIANAttender: STAFF ED EST - 03/31/2019 [facility] STAFF PHYSICIANAdmitter: YAKELIN 11:28:00 AM EST ED STAFF PHYSICIAN Patient discharged. Emergency Attender: EMERGENCY 03/05/2019 01:17:00 HEADACH [facility] SERVICE, XAttender: PM EST Healt h Zulma EDMONDS CAROLAdmitter: Cor poration GREY JUAN HEADACHE Emergency Attender: MICHAEL ED STAFF H 03/04/2019 06:29:00 AM [facility] PHYSICIANAttender: STAFF ED EST - 03/04/2019 [facility] STAFF PHYSICIANAdmitter: 11:09:00 AM EST [place] ED STAFF PHYSICIAN Patient discharged. Emergency Attender: YAKELIN ED STAFF H 02/19/2019 05:37:00 PM [facility] PHYSICIANAttender: STAFF ED EST - 02/19/2019 [facility] STAFF PHYSICIANAdmitter: YAKELIN 06:29:00 PM EST ED STAFF PHYSICIAN Patient discharged. Emergency Attender: GEORGE MARTE H 02/15/2019 12:29:00 PM [facility] PAttender: STAFF ED STAFF EST - 02/15/2019 [facility] PHYSICIANAdmitter: GEORGE 01:48:00 PM EST ESTUARDO P Patient discharged. Emergency Attender: SHRUTHI ED STAFF H 01/23/2019 05:39:00 PM [facility] PHYSICIANAttender: STAFF ED EST - 01/23/2019 [facility] STAFF PHYSICIANAdmitter: SHRUTHI 08:54:00 PM EST ED STAFF PHYSICIAN Patient discharged. Emergency Attender: ED STAFF H 01/18/2019 06:22:00 PM [facility] PHYSICIANAttender: STAFF ED EST - 01/18/2019 [facility] STAFF PHYSICIANAdmitter: ED 09:45:00 PM EST STAFF PHYSICIAN Patient discharged. Emergency Attender: CRISS 01/15/2019 HEADACHE, LEFT [facility] IVANAttender: 11:49:00 AM EST SIDE NUMB [facility] EMERGENCY SERVICE, [facility] XAdmitter: LAURA KAHN HEADACHE, LEFT SIDE NUMB Emergency Attender: STAFF ED STAFF H 01/12/2019 06:01:00 PM [facility] PHYSICIANAttender: ED STAFF EST - 01/12/2019 [facility] PHYSICIANAdmitter: ED STAFF 09:52:00 PM EST PHYSICIAN Patient discharged. Emergency Attender: NOEL 01/06/2019 06:52:00 HEADACHE [facility] SHANEKA FOSTERAAdmitter: AM EST Health Care NOEL CENTENO Cor poration HEADACHE Emergency Attender: YAKELIN ED STAFF H 01/03/2019 11:11:00 AM [facility] PHYSICIANAttender: MICHAEL ED EST - 01/03/2019 [facility] Center STAFF PHYSICIANAttender: STAFF 12:38:00 PM EST ED STAFF PHYSICIANAdmitter: YAKELIN ED STAFF PHYSICIAN Patient discharged. Emergency Attender: Wan [facility] 12/10/2018 08:10:00 PM [facility] Zack MDAdmitter: Wan EDT - 12/10/2018 [facility] ARAUJO 11:32:00 PM EDT Patient discharged. Emergency H 11/27/2018 03:30:00 PM EDT - [address] [place] [address] 07:11:00 PM EDT Patient discharged. Emergency H 11/15/2018 10:46:00 AM EDT - [address] [place] [address] 01:09:00 PM EDT Patient discharged. Emergency H 11/05/2018 06:38:00 PM EDT - [address] [place] [address] 08:20:00 PM EDT Patient discharged. Emergency Attender: DANIELLE 10/26/2018 SE[place]ERE HEADACHE [facility] EFRENAdmitter: 05:19:00 PM EDT [facility] EFREN SANTOS [facility] SEVERE HEADACHE Emergency H 10/22/2018 05:15:00 PM EDT - [address] [place] [address] 07:02:00 PM EDT Patient discharged. Emergency H 09/05/2018 01:20:00 [facility] PM EDT Center Emergency H 08/26/2018 08:15:00 [facility] AM EDT Center Emergency H 08/01/2018 05:54:00 [facility] AM EDT Center Emergency Attender: TAE 06/29/2018 05:23:00 CHEST PAIN S [facility] DONNYAdmitter: PM EDT Health [facility] DONNY STRONG [facility] CHEST PAINS Emergency H 06/09/2018 10:26:[address] [facility] Emergency H 05/05/2018 08:28:[address] [facility] Immunizations Vaccine Date Status Description Data Source(s) [...] Brand Start Product Dose Route Administrative Pharmacy [facility] Indications Reaction Description Data Name [...] [Compazine] 00 AM Physici an) COMPAZINE:2 EDT 89006 Prochlorper COMPAZ 10/23/ TABLET 30 complet COMP AZINE MEDGEN azine 10 MG INE:20 2019 ed (Ammir Oral Tablet 7685 12:00: Charles [Compazine] 00 AM Physici an) COMPAZINE:2 EDT 76762 Cyclobenzap FLEXER 10/23/ TABLET 30 complet FLEX [...] Corpora alan n Medication administered onsite NITROFURANTOIN, MACROBID:[id number] 10/16/2019 CAPSULE 14 comp leted MACROBID MEDGEN MACROCRYSTALS 25 12:00:00 AM (Ammir MG / EDT Charles Nitrofurantoin, Phys ician) Monohydrate 75 MG Oral Capsule [Macrobid] MACROBID:[id number] Furosemide 40 MG LASIX:10/14/2019 TABLET 14 complet ed LASIX MEDGEN Oral Tablet 12:00:00 AM ( Ammir [Lasix] EDT Charles LASIX: Physici an) Famotidine 20 MG FAMOTIDINE:40933 10/14/2019 TABLET 30 com pleted FAMOTIDIN MEDGEN Oral Tablet 3 12:00:00 AM E ( Ammir FAMOTIDINE:88006 EDT Rab alex 3 Physician) Furosemide 40 MG LASIX:10/14/2019 TABLET 14 complet ed LASIX MEDGEN Oral Tablet 12:00:00 AM ( Ammir [Lasix] EDT Charles LASIX: Physici an) Furosemide 40 MG LASIX:10/14/2019 TABLET 14 complet ed LASIX MEDGEN Oral Tablet 12:00:00 AM ( Ammir [Lasix] EDT Charles LASIX: Physici an) Famotidine 20 MG FAMOTIDINE:76065 10/14/2019 TABLET 30 com pleted FAMOTIDIN MEDGEN Oral Tablet 3 12:00:00 AM E ( Ammir FAMOTIDINE:48843 EDT Rab alex 3 Physician) Famotidine 20 MG FAMOTIDINE:43532 10/14/2019 TABLET 30 com pleted FAMOTIDIN MEDGEN Oral Tablet 3 12:00:00 AM E ( Ammir FAMOTIDINE:21645 EDT Rab alex 3 Physician) Famotidine 20 MG FAMOTIDINE:43813 10/14/2019 TABLET 30 com pleted FAMOTIDIN MEDGEN Oral Tablet 3 12:00:00 AM E ( Ammir FAMOTIDINE:24289 EDT Rab alex 3 Physician) Furosemide 40 [...] ( Ammir Tablet EDT Charles [facility]:3142 [facility] 16 Simethicone 80 SIMETHICONE:3142 10/09/2019 TABLET 1 compl eted SIMETHICO MEDGEN MG Chewable 16 12:00:00 AM NE ( Ammir Tablet EDT Charles SIMETHICONE:3142 [facility] 16 [place] 0.6 COLCHICINE:07/09/2019 TABLET 30 compl eted COLCHICIN MEDGEN MG Oral Tablet 1 12:00:00 AM E (Ammir COLCHICINE: EDT [facility] alex 1 Physician) [place] 0.6 COLCHICINE:07/09/2019 TABLET 30 compl eted COLCHICIN MEDGEN MG Oral Tablet 1 12:00:00 AM E (Ammir COLCHICINE: EDT [facility] 1 Physician) [place] 0.6 COLCHICINE:07/09/2019 TABLET 30 compl eted COLCHICIN MEDGEN MG Oral Tablet 1 12:00:00 AM E (Ammir COLCHICINE: EDT [facility] 1 Physician) [place] 0.6 COLCHICINE:07/09/2019 TABLET 30 compl eted COLCHICIN MEDGEN MG Oral Tablet 1 12:00:00 AM E (Ammir COLCHICINE: EDT [facility] 1 Physician) [place] 0.6 COLCHICINE:07/09/2019 TABLET 30 compl eted COLCHICIN MEDGEN MG Oral Tablet 1 12:00:00 AM E (Ammir COLCHICINE: T [facility] 1 Physician) Cyclobenzaprine FLEXERIL:220659 06/14/2019 TABLET 30 compl eted FLEXERIL MEDGEN hydrochloride 5 12:00:00 AM (Ammir MG Oral Tablet EDT Rabad i [Flexeril] Physician ) FLEXERIL:419999 Cyclobenzaprine FLEXERIL:735746 06/14/2019 TABLET 30 compl eted FLEXERIL MEDGEN hydrochloride 5 12:00:00 AM (Ammir MG Oral Tablet EDT Rabad i [Flexeril] Physician ) FLEXERIL:375280 Cyclobenzaprine FLEXERIL:415108 06/14/2019 TABLET 30 compl eted FLEXERIL MEDGEN hydrochloride 5 12:00:00 AM (Ammir MG Oral Tablet EDT Rabad i [Flexeril] Physician ) FLEXERIL:408246 Benadryl Benadryl 01/15/2019 25 U active Nirav adryl [place] (Diphenhyd (Diphenhyd 01:20:47 PM mg N ( Diphen[place] EST K dramine) Health Care Oral 25 Corporation mg PO Medication administered onsite Toradol 30 Toradol 30 01/15/2019 15 mg UNK active Toradol 30 [place] mg/mL (Ke mg/mL (Ke 01:20:38 PM mg/ mL [facility] EST (Ketorolac) Care Injection 15 Corpora tion mgIVP Medication administered onsite Tylenol Tylenol 01/15/2019 975 UNK active Tylen ol [place] (Acetaminoph (Acetaminoph 01:20:08 PM mg (Acetaminophen) County EST Oral 975 mg PO [facility] Corporation Medication administered onsite Reglan Reglan 01/15/2019 10 UNK active Reglan [place] (Metocloprami (Metocloprami 01:19:59 PM mg (Metoclopramide) County EST Injection 10 mg [facility] IVP Corporation Medication administered onsite Reglan 10 01/06/2019 999 MG UNK completed Re glan 10 MG [place] MG Oral 10:30:09 AM Oral Table t [facility] Tablet EST TAKE 1 Care TABLET EVERY Corpora tion 6 HOURS NEEDED. Dispense: 12 Reglan 10 01/06/2019 999 MG UNK completed Re glan 10 MG [place] MG Oral 10:30:09 AM Oral Table t [facility] Tablet EST TAKE 1 Care TABLET EVERY Corpora tion 6 HOURS NEEDED. Dispense: 12 Valium 5 01/06/2019 999 MG UNK completed Hallie ium 5 MG [place] MG Oral 10:30:09 AM Oral Table t [facility] Tablet EST TAKE 1 Care TABLET 3 Corporation TIMES DAILY NEEDED. Dispense: 12 Valium 5 01/06/2019 999 MG UNK completed Hallie ium 5 MG [place] MG Oral 10:30:09 AM Oral Table t [facility] Tablet EST TAKE 1 Care TABLET 3 Corporation TIMES DAILY NEEDED. Dispense: 12 Valium 5 01/06/2019 999 MG UNK completed Hallie ium 5 MG [place] MG Oral 10:30:09 AM Oral Table t [facility] Tablet EST TAKE 1 Care TABLET 3 Corporation TIMES DAILY NEEDED. Dispense: 12 Reglan 10 01/06/2019 999 MG UNK completed Re glan 10 MG [place] MG Oral 10:30:09 AM Oral Table t [facility] Tablet EST TAKE 1 Care TABLET EVERY Corpora tion 6 HOURS NEEDED. Dispense: 12 Valium 5 01/06/2019 999 MG UNK completed Hallie ium 5 MG [place] MG Oral 09:30:09 AM Oral Table t [facility] Tablet EST TAKE 1 Care TABLET 3 Corporation TIMES DAILY NEEDED. Dispense: 12 Reglan 10 01/06/2019 999 MG UNK completed Re glan 10 MG [place] MG Oral 09:30:09 AM Oral Table t [facility] Tablet EST TAKE 1 Care TABLET EVERY Corpora tion 6 HOURS NEEDED. Dispense: 12 Reglan 10 01/06/2019 999 MG UNK completed Re glan 10 MG [place] MG Oral 09:30:09 AM Oral Table t [facility] Tablet EST TAKE 1 Care TABLET EVERY Corpora tion 6 HOURS NEEDED. Dispense: 12 Valium 5 01/06/2019 999 MG UNK completed Hallie ium 5 MG [place] MG Oral 09:30:09 AM Oral Table t [facility] Tablet EST TAKE 1 Care TABLET 3 Corporation TIMES DAILY NEEDED. Dispense: 12 0.9% NaCl 0.9% 01/06/2019 1000 mL UNK active 0.9 % NaCl [place] IV NaCl IV 08:24:46 AM IV 1000 mL ; [facility] IV rate: Care Bolus over Corporati on 30 minutes Medication administered onsite Valium Valium 01/06/2019 5 mg UNK active Valium [place] (Diazepam) (Diazepam) 08:24:32 AM ( Diazepam) [facility] Or Or EST Oral 5 mg PO [facility] Corporation Medication administered onsite Toradol 30 Toradol 30 01/06/2019 30 mg UNK active Toradol 30 [place] mg/mL (Ke mg/mL (Ke 08:23:40 AM mg/ mL [facility] (Ketorolac) Care Injection 30 Corpora tion mg IVP Medication administered onsite Diphenhydramine Diphenhydramine 01/06/2019 25 UNK active Diphenhydramine [place] (Nirav (Nirav 08:22:46 AM mg (Benadryl) Co unty EST Injection 25 mg [facility] IVPB Corporation Medication administered onsite Reglan Reglan 01/06/2019 10 UNK active Reglan [place] (Metocloprami (Metocloprami 08:22:38 AM mg (Metoclopramide) County EST Injection 10 mg [facility] Medication administered onsite Dihydroergotamine DIHYDROERGOTAMINE:674543 01/02/2019 SPRAY 2 completed DIHYDROERGOTAMINE MEDGEN Mesylate 0.5 MG/ACTUAT 12:00:00 AM (Ammir Nasal [place] EST Charles DIHYDROERGOTAMINE:020303 Physician) Dihydroergotamine DIHYDROERGOTAMINE:205681 01/02/2019 SPRAY 2 completed DIHYDROERGOTAMINE MEDGEN Mesylate 0.5 MG/ACTUAT 12:00:00 AM (Ammir Nasal [place] EST Charles DIHYDROERGOTAMINE:646516 Physician) Dihydroergotamine DIHYDROERGOTAMINE:285999 01/02/2019 SPRAY 2 completed DIHYDROERGOTAMINE MEDGEN Mesylate 0.5 MG/ACTUAT 12:00:00 AM (Ammir Nasal [place] EST Charles DIHYDROERGOTAMINE:283779 Physician) Dihydroergotamine DIHYDROERGOTAMINE:585458 01/02/2019 SPRAY 2 completed DIHYDROERGOTAMINE MEDGEN Mesylate 0.5 MG/ACTUAT 12:00:00 AM (Ammir Nasal [place] EST Charles DIHYDROERGOTAMINE:618749 Physician) Dihydroergotamine DIHYDROERGOTAMINE:998732 01/02/2019 SPRAY 2 completed DIHYDROERGOTAMINE MEDGEN Mesylate 0.5 MG/ACTUAT 12:00:00 AM (Ammir Nasal [place] EST Charles DIHYDROERGOTAMINE:048164 Physician) Cyclobenzaprine FLEXERIL:190824 12/24/2018 TABLET 30 compl eted FLEXERIL MEDGEN hydrochloride 5 MG Oral 12:00:00 AM (Ammir Tablet FLEXERIL:720650 EDT Charles Physician) Cyclobenzaprine FLEXERIL:642181 12/24/2018 TABLET 30 compl eted FLEXERIL MEDGEN hydrochloride 5 MG Oral 12:00:00 AM (Ammir Tablet FLEXERIL:143730 EDT Charles Physician) AIMOVIG SURECLICK 12/24/2018 SOLUTI 3 completed AIMOVIG SURECLICK MEDGEN AUTOINJECTOR:[id number] 12:00:00 AM ON AUTOINJECTOR (Ammir EDT Charles Physician) Cyclobenzaprine FLEXERIL:050220 12/24/2018 TABLET 30 compl eted FLEXERIL MEDGEN hydrochloride 5 MG Oral 12:00:00 AM (Ammir Tablet FLEXERIL:943854 EDT Charles Physician) AIMOVIG SURECLICK 12/24/2018 SOLUTI 3 completed AIMOVIG SURECLICK MEDGEN AUTOINJECTOR:[id number] 12:00:00 AM ON AUTOINJECTOR (Ammir EDT Charles Physician) Cyclobenzaprine FLEXERIL:165477 12/24/2018 TABLET 30 compl eted FLEXERIL MEDGEN hydrochloride 5 MG Oral 12:00:00 AM (Ammir Tablet FLEXERIL:196134 EDT Charles Physician) AIMOVIG SURECLICK 12/24/2018 SOLUTI 3 completed AIMOVIG SURECLICK MEDGEN AUTOINJECTOR:[id number] 12:00:00 AM ON AUTOINJECTOR (Ammtr EDT Charles Physician) AIMOVIG SURECLICK 12/24/2018 SOLUTI 3 completed AIMOVIG SURECLICK MEDGEN AUTOINJECTOR:[id number] 12:00:00 AM ON AUTOINJECTOR (Ammir EDT Charles Physician) Cyclobenzaprine FLEXERIL:318721 12/24/2018 TABLET 30 compl eted FLEXERIL MEDGEN hydrochloride 5 MG Oral 12:00:00 AM (Ammir Tablet FLEXERIL:422054 T Charles Physician) AIMOVIG SURECLICK 12/24/2018 SOLUTI 3 completed AIMOVIG SURECLICK MEDGEN AUTOINJECTOR:[id number] 12:00:00 AM ON AUTOINJECTOR (Ammtr EDT Charles Physician) pantoprazole 40 MG PANTOPRAZOLE:529477 07/16/2018 DELAYE 90 completed PANTOPRAZOLE MEDGEN Delayed Release Oral 12:00:00 AM D (Ammir Tablet EDT RELEAS Charles PANTOPRAZOLE:032382 E Physician) TABLET pantoprazole 40 MG PANTOPRAZOLE:463863 07/16/2018 DELAYE 90 completed PANTOPRAZOLE MEDGEN Delayed Release Oral 12:00:00 AM D (Ammir Tablet EDT RELEAS Charles PANTOPRAZOLE:345962 E Physician) TABLET pantoprazole 40 MG PANTOPRAZOLE:898371 07/16/2018 DELAYE 90 completed PANTOPRAZOLE MEDGEN Delayed Release Oral 12:00:00 AM D (Ammir Tablet EDT RELEAS Charles PANTOPRAZOLE:846593 E Physician) TABLET pantoprazole 40 MG PANTOPRAZOLE:610055 07/16/2018 DELAYE 90 completed PANTOPRAZOLE MEDGEN Delayed Release Oral 12:00:00 AM D (Ammir Tablet EDT RELEAS Charles PANTOPRAZOLE:098889 E Physician) TABLET pantoprazole 40 MG PANTOPRAZOLE:691994 07/16/2018 DELAYE 90 completed PANTOPRAZOLE MEDGEN Delayed Release Oral 12:00:00 AM D (Ammir Tablet EDT RELEAS Charles PANTOPRAZOLE:902251 E Physician) TABLET Ergocalciferol 55592 UNT VITAMIN D2:4367218 03/27/2018 CAPSUL 12 completed VITAMIN D2 MEDGEN Oral Capsule VITAMIN 12:00:00 AM E (Ammir D2:8784553 EST Charles Physician) ferrous sulfate 325 MG FEOSOL:132117 03/27/2018 TABLET 90 completed FEOSOL MEDGEN Oral Tablet [Feosol] 12:00:00 AM (Ammir FEOSOL:544381 EST Charles Physician) ferrous sulfate 325 MG FEOSOL:744346 03/27/2018 TABLET 90 completed FEOSOL MEDGEN Oral Tablet [Feosol] 12:00:00 AM (Ammir FEOSOL:839199 EST Charles Physician) Ergocalciferol 05826 UNT VITAMIN D2:3765285 03/27/2018 CAPSUL 12 completed VITAMIN D2 MEDGEN Oral Capsule VITAMIN 12:00:00 AM E (Ammir D2:6205855 EST [place] Physician) Ergocalciferol 03811 UNT VITAMIN D2:5481871 03/27/2018 CAPSUL 12 completed VITAMIN D2 MEDGEN Oral Capsule VITAMIN 12:00:00 AM E (Ammir D2:9921329 EST [place] Physician) ferrous sulfate 325 MG FEOSOL:929660 03/27/2018 TABLET 90 completed FEOSOL MEDGEN Oral Tablet [Feosol] 12:00:00 AM (Ammir FEOSOL:026687 EST [place] Physician) ferrous sulfate 325 MG FEOSOL:846189 03/27/2018 TABLET 90 completed FEOSOL MEDGEN Oral Tablet [Feosol] 12:00:00 AM (Ammir FEOSOL:201251 EST Charles Physician) Ergocalciferol 46682 UNT VITAMIN D2:9013034 03/27/2018 CAPSUL 12 completed VITAMIN D2 MEDGEN Oral Capsule VITAMIN 12:00:00 AM E (Ammir D2:1562421 EST [place] Physician) Ergocalciferol 46053 UNT VITAMIN D2:0020658 03/27/2018 CAPSUL 12 completed VITAMIN D2 MEDGEN Oral Capsule VITAMIN 12:00:00 AM E (Ammir D2:0761705 EST [place] Physician) ferrous sulfate 325 MG FEOSOL:531558 03/27/2018 TABLET 90 completed FEOSOL MEDGEN Oral Tablet [Feosol] 12:00:00 AM (Ammir FEOSOL:016134 EST [place] Physician) atorvastatin 40 MG Oral LIPITOR:915730 03/26/2018 TABLET 90 completed LIPITOR MEDGEN Tablet LIPITOR:353083 12:00:00 AM (Ammir EST Charles Physician) atorvastatin 40 MG Oral LIPITOR:132374 03/26/2018 TABLET 90 completed LIPITOR MEDGEN Tablet LIPITOR:580513 12:00:00 AM (Ammir EST Charles Physician) atorvastatin 40 MG Oral LIPITOR:373516 03/26/2018 TABLET 90 completed LIPITOR MEDGEN Tablet LIPITOR:[id number] 12:00:00 AM (Ammir EST Charles Physician) atorvastatin 40 MG Oral LIPITOR:447407 03/26/2018 TABLET 90 completed LIPITOR MEDGEN Tablet LIPITOR:400379 12:00:00 AM (Ammir EST Charles Physician) atorvastatin 40 MG Oral LIPITOR:611632 03/26/2018 TABLET 90 completed LIPITOR MEDGEN Tablet LIPITOR:725292 12:00:00 AM (Ammir EST Charles Physician) pantoprazole 40 MG Oral Protonix 99 o completed Protonix [place] Granules [Protonix] 9 r [facility] [employer] pantoprazole 40 MG Oral pantoprazole 99 o disconti nu pantoprazole [place] Granules [Protonix] 9 r [facility] naratriptan 1 MG Oral naratriptan 99 o discontinu naratriptan [place] Tablet [Amerge] 9 r [facility] [employer] pantoprazole 40 MG Oral pantoprazole 99 o disconti nu pantoprazole [place] Granules [Protonix] 9 r [place] MG a [facility] atorvastatin 10 MG Oral atorvastatin 99 o complete d atorvastatin [place] Tablet [Lipitor] 9 r Cou nty MG a [employer] Sumatriptan 25 MG Oral sumatriptan succinate M o discontinu sumatriptan [place] Tablet [Imitrex] G r ed succinat e [facility] sumatriptan succinate a [employer] pantoprazole 40 MG Oral pantoprazole 99 o disconti nu pantoprazole [place] Granules [Protonix] 9 r ed [place] MG a [facility] Sumatriptan 25 MG Oral sumatriptan succinate M o discontinu sumatriptan [place] Tablet [Imitrex] G r ed succinat e [facility] sumatriptan succinate a [employer] naratriptan 1 MG Oral naratriptan 99 o discontinu naratriptan [place] Tablet [Amerge] 9 r ed Coun ty MG a [facility] pantoprazole 40 MG Oral Protonix 99 o completed Protonix [place] Granules [Protonix] 9 r County MG a [facility] Sumatriptan 25 MG Oral sumatriptan succinate M o discontinu sumatriptan [place] Tablet [Imitrex] G r ed succinat e [facility] sumatriptan succinate a [facility] naratriptan 1 MG Oral naratriptan 99 o discontinu naratriptan [place] Tablet [Amerge] 9 r ed Coun ty MG a [employer] Not Taking Home Meds Not Taking Home Meds 99 U dis continu Not Taking Home [place] 9 N ed Meds County MG K Asuum 200 ACTUAT Albuterol 0.09 albuterol 99 i completed albuterol [place] MG/ACTUAT Metered Dose 9 n [facility] Inhaler [Ventolin] MG h H [facility] albuterol a Corporatio n l a t i o n naratriptan 1 MG Oral naratriptan 99 o discontinu naratriptan [place] Tablet [Amerge] 9 r ed Coun ty MG a [facility] Diphenhydramine Benadryl 99 o completed Benadryl [place] Hydrochloride 25 MG Oral 9 r [facility] Capsule [Benadryl] MG a H [place] Not Taking Home Meds Not Taking Home Meds 99 U dis continu Not Taking Home [place] 9 N ed Meds [facility] MG K Asuum atorvastatin 10 MG Oral atorvastatin 99 o complete d atorvastatin [place] Tablet [Lipitor] 9 r Cou nty MG a [facility] Not Taking Home Meds Not Taking Home Meds 99 U dis continu Not Taking Home [place] 9 N Meds [facility] MG K Asuum Colchicine 0.6 MG Oral colchicine 99 o completed colchicine [place] Capsule [Mitigare] 9 r C ounty colchicine MG a Phonetime atorvastatin 10 MG Oral atorvastatin 99 o complete d atorvastatin [place] Tablet [Lipitor] 9 r Cou nty MG a [facility] atorvastatin 10 MG Oral atorvastatin 99 o complete d atorvastatin [place] Tablet [Lipitor] 9 r Cou nty MG a [facility] pantoprazole 40 MG Oral Protonix 99 o discontinu Protonix [place] Granules [Protonix] 9 r [facility] MG [facility] pantoprazole 40 MG Oral pantoprazole 99 o disconti nu pantoprazole [place] Granules [Protonix] 9 r [facility] MG a [facility] pantoprazole 40 MG Oral pantoprazole 99 o disconti nu pantoprazole [place] Granules [Protonix] 9 [facility] MG [facility] Sumatriptan 25 MG Oral sumatriptan succinate M o discontinu sumatriptan [place] Tablet [Imitrex] G r succinat e [facility] sumatriptan succinate a [facility] 200 ACTUAT Albuterol 0.09 albuterol 99 i completed albuterol [place] MG/ACTUAT Metered Dose 9 n [facility] Inhaler [Ventolin] MG h H [facility] albuterol a Corporatio n l a t i o n Not Taking Home Meds Not Taking Home Meds 99 U dis continu Not Taking Home [place] 9 N Meds [facility] MG K Asuum rizatriptan 10 MG Oral rizatriptan 10 mg [...] headache Diphenhydramine Benadryl 99 o completed Benadryl [place] Hydrochloride 25 MG Oral 9 [facility] Capsule [Benadryl] MG a H [facility] Aconex Omeprazole 10 MG Delayed omeprazole 99 o completed omeprazole [place] Release Oral Capsule 9 r [facility] [Losec] omeprazole MG a H [facility] [place] atorvastatin 10 MG Oral atorvastatin 99 o complete d atorvastatin [place] Tablet [Lipitor] 9 r [facility] nty MG a [facility] Diphenhydramine Benadryl 99 o discontinu Benadryl [place] Hydrochloride 25 MG Oral 9 r [facility] Capsule [Benadryl] MG a [facility] naratriptan 1 MG Oral naratriptan 99 o discontinu naratriptan [place] Tablet [Amerge] 9 r Coun ty MG a [facility] Not Taking Home Meds Not Taking Home Meds 99 U dis continu Not Taking Home [place] 9 [place] K Asuum pantoprazole 40 MG Oral Protonix 99 o completed Protonix [place] Granules [Protonix] 9 r [facility] MG [facility] Omeprazole 10 MG Delayed omeprazole 99 o discontin u omeprazole [place] Release Oral Capsule 9 r [facility] [Losec] omeprazole MG a [facility] Prednisone 20 MG Oral predniSONE 20 mg [...] pain Diphenhydramine Benadryl 99 o completed Benadryl [place] Hydrochloride 25 MG Oral 9 r [facility] Capsule [Benadryl] MG a H [facility] [employer] Insurance Providers Payer name Policy type Policy ID Covered Covered constitution party's Policy P bryce / Coverage constitution party ID relationship to Trevino Inf ormation type trevino [place] [id number] [place] [id number] HMO MVP/HHP O [id number] 01 [id number] UNK [id number] UNK [id number] UNK [id number] UNK [id number] UNK [id number] Problems, Conditions, and Diagnoses Code Display Name [...] MEDG EN (Ammir unspecified UNSPECIFIED 12:00:00 AM Charlse EDT Physician) R60.0 Localized edema LOCALIZED EDEMA [...] for ENCOUNTER FOR Problem 04/19[facility]2016 [facility] 12:00:00 AM Charles [...] EST Physician) R00.2 Palpitations PALPITATIONS Diagnosis 11/15/2019 [facility] r 06:00:00 AM [facility] EDT Care [employer] R07.9 Chest pain, CHEST PAIN, Diagnosis 11/15/2019 [place] unspecified UNSPECIFIED 06:00:00 AM [facility] EDT Care [employer] 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 hypertension HYPERTENSION 06:42:00 AM Medical C enter EDT G43.909 Migraine, MIGRAINE, UNSP, NOT Diagnosis 10/30/2019 [place] unspecified, not INTRACTABLE, WITHOUT 06:42:00 AM [facility] intractable, without STATUS MIGRAINOSUS EDT status migrainosus R51 Headache HEADACHE Diagnosis 10/30/2019 [place] 06:42:00 AM [facility] Cent[facility] r EDT Z20.828 Contact with and CONTACT W AND Diagnosis 10/22/2019 [facility] rangel (suspected) exposure EXPOSURE TO OTH 11:01:00 P [facility] to other viral VIRAL COMMUNICABLE EDT Ca AGNITiO DISEASES [employer] diseases G43.909 Migraine, MIGRAINE, UNSP, NOT Diagnosis 10/22/2019 [facility] multani unspecified, not INTRACTABLE, WITHOUT 11:01:00 PM [facility] intractable, without STATUS MIGRAINOSUS EDT Care status migrainosus Corpor ation E78.00 Pure PURE Diagnosis 10/22/2019 [place] hypercholesterolemia HYPERCHOLESTEROLEMIA 11:01 :00 PM [facility] , unspecified , UNSPECIFIED T [facility] [employer] Z53.21 Procedure and PROC/TRTMT NOT CRD Diagnosis 03/05/2019 [place] treatment not OUT D/T PT [place] BEF 01:17:00 PM [facility] carried out due to SEEN BY [facility] patient leaving [facility] on prior to being seen by health care provider I72.9 Aneurysm of ANEURYSM OF Diagnosis 01/15/2019 [place] unspecified site UNSPECIFIED SITE 11:49:00 AM [facility] [employer] R51 Headache HEADACHE Diagnosis 01/15/2019 [place] 11:49:00 AM [facility] E78.5 Hyperlipidemia, HYPERLIPIDEMIA, Diagnosis [...] PAIN Diagnosis 06/29/2018 [facility]:23[facility] R07.2 Precordial pain PRECORDIAL PAIN Diagnosis 06/29/2018 [place] 05:23:00 PM [facility] R40.241 Natasha coma scale NATASHA COMA SCALE [...] AM EDT P hysician) Medication Reconciliation 05/13/2019 [place] DGEN (Ammir Charles (procedure) 12:00:00 AM EDT [...] AM EDT P hysician) Medication Reconciliation 06/12/2018 [place] DGEN (Ammir Charles (procedure) 12:00:00 AM EDT [...] AM EDT P hysician) Medication Reconciliation 06/12/2018 [place] DGEN (Ammir Charles (procedure) 12:00:00 AM EDT [...] AM EST P hysician) Medication Reconciliation 04/11/2018 [place] DGEN (Ammir Charles (procedure) 12:00:00 AM EST [...] AM EST P hysician) Medication Reconciliation 04/11/2018 [place] DGEN (Ammir Charles (procedure) 12:00:00 AM EST [...] AM EST P hysician) Medication Reconciliation 04/11/2018 [place] DGEN (Ammir Charles (procedure) 12:00:00 AM EST [...] AM EST P hysician) Medication Reconciliation 04/11/2018 [place] DGEN (Ammir Charles (procedure) 12:00:00 AM EST [...] AM EST P hysician) Medication Reconciliation 04/11/2018 [place] DGEN (Ammir Charles (procedure) 12:00:00 AM EST [...] Documentation of current 12/20/2017 MED GEN (Ammir Chalres medications (procedure) 12:00:00 AM EDT P hysician) [...] Documentation of current 11/06/2017 MED GEN (Ammir Cahrles medications (procedure) 12:00:00 AM EDT P hysician) [...] Documentation of current 10/23/2017 MED GEN (Ammir Charlse medications (procedure) 12:00:00 AM EDT P hysician) [...] P hysician) Results ID Date Data Source [id number] 10/30/2019 12:00:00 AM EDT MED[facility] (Ammir Charles [...] creat Charles Physician) ID Date Data Source [id number] 10/22/2019 12:00:00 AM EDT [facility] Name Value Range Interpretation Code Description Data Faiza rce(s) Supporting Document(s ) SARS-COV-2 [place] RNA RT-PCR [facility] This lab was ordered by [facility] and reported by [facility]. ID Date Data Source [id number] 10/16/2019 08:43:[address] [facility] Name Value Range Interpretation Code Description Data Faiza rce(s) Supporting Document(s ) HOLOGIC [facility] SARS-CoV-2 TMA PCR [facility] and reported by [facility]. ID Date Data Source [id number] 10/14/2019 12:00:00 AM EDT MEDGEN (Ammir Charles [...] EGFR NON AFR 94 Normal (applies MEDGEN GAMBIAN mL/min/1 to non-numeric (Ammir .73m2 results) Charles Physician) EGFR AFR 114 Normal (applies [facility] GAMBIAN mL/min/1 to non-numeric (Ammir .73m2 results) Charles Physician) ID Date Data Source [id number] 10/14/2019 12:00:00 AM EDT [facility] (Ammir Charles Physician) Name Value Range Interpretation Description Data Sup porting Code Source(s) Document(s ) CREATINE 159 U/L Normal (applies to MEDGEN (Amm ir KINASE (CK) non-numeric Charles results) Physician) ID Date Data Source [id number] 10/14/2019 12:00:00 AM EDT MED[facility] (Ammir Charles [...] units to non-numeric (Ammir fluid by results) [facility] Refractometry Physician) Blood [Presence] NEGATIVE Normal (applies MED[facility] in Urine by to non-numeric (Ammir Visual results) Charles Physician) pH of Lower 8 Ph units Normal (applies MEDGEN respiratory to non-numeric (Ammir specimen results) Charles Physician) Protein NEGATIVE Normal (applies MEDGEN [Mass/volume] in to non-numeric (Ammir Lower results) [facility] respiratory Physician) specimen Urobilinogen 0-2.0 Normal (applies MEDGEN [Presence] in to non-numeric (Ammir Urine by results) [facility] Automated test Physician) strip Nitrite NEGATIVE Normal (applies MEDGEN [Presence] in to non-numeric (Ammir Urine by Test results) [facility] strip Physician) Leukocyte LARGE Abnormal MEDGEN esterase [...] results) Charles Physician) ID Date Data Source [id number] 10/14/2019 12:00:00 AM EDT [facility] (Ammir Charles Physician) Name Value Range Interpretation Description Data Sup porting Code Source(s) Document(s ) BNP, B-TYPE 52.8 Normal (applies MEDGEN NATRIURETIC pg/mL to non-numeric (Ammir results) Charles Physician) ID Date Data Source [id number] 10/14/2019 12:00:00 AM EDT [facility] (Ammir Charles Physician) Name Value Range Interpretation Description Data Sup porting Code Source(s) Document(s ) Hemoglobin A1c 5.7 % Above high normal MEDGEN (Ammir in Blood Charles Physician) ID Date Data Source [id number] 10/14/2019 12:00:00 AM EDT [facility] (Ammir Charles Physician) Name Value Range Interpretation Description Data Sup porting Code Source(s) Document(s ) VITAMIN D 32.27 Below low normal MEDGEN (Ammir 25-HYDROXY ng/mL Charles Physician) ID Date Data Source [id number] 10/14/2019 12:00:00 AM EDT [facility] (Ammir Charles Physician) Name Value Range Interpretation Description Data Sup porting Code Source(s) Document(s ) FOLATE SERUM 15.6 Normal (applies to MEDGEN ( Ammir ng/mL non-numeric Charles results) Physician) VITAMIN B12 924 pg/mL Above high normal MEDGEN (Am teetee Charles Physician) ID Date Data Source [id number] 10/14/2019 12:00:00 AM EDT [facility] (Ammir Charles [...] results) Charles Physician) ID Date Data Source [id number] 10/14/2019 12:00:00 AM EDT [facility] (Ammir Charles [...] results) Charles Physician) ID Date Data Source [id number] 10/14/2019 12:00:00 AM EDT [facility] (Ammir Charles Physician) Name Value Range Interpretation Description Data Sup porting Code Source(s) Document(s ) TSH,3RD 1.59 Normal (applies to [facility] GENERATION uIU/mL non-numeric (Ammir results) Charles Physician) T4 FREE, 1.00 Normal (applies to MED[facility] THYROXINE ng/dL non-numeric (Ammir results) Charles Physician) ID Date Data Source [id number] 10/14/2019 12:00:00 AM EDT [facility] (Ammir Charles [...] results) Charles Physician) ID Date Data Source [id number] 10/14/2019 12:00:00 AM EDT [facility] (Ammir Charles [...] EGFR NON AFR 94 Normal (applies MED[facility] GAMBIAN mL/min/1 to non-numeric (Ammir .73m2 results) Charles Physician) EGFR AFR 114 Normal (applies [facility] GAMBIAN mL/min/1 to non-numeric (Ammir .73m2 results) Charles Physician) ID Date Data Source [id number] 10/14/2019 12:00:00 AM EDT [facility] (Ammir Charles Physician) Name Value Range Interpretation Description Data Sup porting Code Source(s) Document(s ) CREATINE 159 U/L Normal (applies to MEDGEN (Amm ir KINASE (CK) non-numeric Charles results) Physician) ID Date Data Source [id number] 10/14/2019 12:00:00 AM EDT [facility] (Ammir Charles [...] results) Charles Physician) ID Date Data Source [id number] 10/14/2019 12:00:00 AM EDT [facility] (Ammir Charles Physician) Name Value Range Interpretation Description Data Sup porting Code Source(s) Document(s ) BNP, B-TYPE 52.8 Normal (applies MED[facility] NATRIURETIC pg/mL to non-numeric (Ammir results) Charles Physician) ID Date Data Source [id number] 10/14/2019 12:00:00 AM EDT [facility] (Ammir Charles Physician) Name Value Range Interpretation Description Data Sup porting Code Source(s) Document(s ) Hemoglobin A1c 5.7 % Above high normal MEDGEN (Ammir in Blood Charles Physician) ID Date Data Source [id number] 10/14/2019 12:00:00 AM EDT [facility] (Ammir Charles Physician) Name Value Range Interpretation Description Data Sup porting Code Source(s) Document(s ) VITAMIN D 32.27 Below low normal MEDGEN (Ammir 25-HYDROXY ng/mL Charles Physician) ID Date Data Source [id number] 10/14/2019 12:00:00 AM EDT [facility] (Ammir Charles Physician) Name Value Range Interpretation Description Data Sup porting Code Source(s) Document(s ) FOLATE SERUM 15.6 Normal (applies to MEDGEN ( Ammir ng/mL non-numeric Charles results) Physician) VITAMIN B12 924 pg/mL Above high normal MEDGEN (Am teetee Charles Physician) ID Date Data Source [id number] 10/14/2019 12:00:00 AM EDT [facility] (Ammir Charles [...] results) Charles Physician) ID Date Data Source [id number] 10/14/2019 12:00:00 AM EDT [facility] (Ammir Charles [...] results) Charles Physician) ID Date Data Source [id number] 10/14/2019 12:00:00 AM EDT [facility] (Ammir Charles Physician) Name Value Range Interpretation Description Data Sup porting Code Source(s) Document(s ) TSH,3RD 1.59 Normal (applies to [facility] GENERATION uIU/mL non-numeric (Ammir results) Charles Physician) T4 FREE, 1.00 Normal (applies to [facility] THYROXINE ng/dL non-numeric (Ammir results) Charles Physician) ID Date Data Source [id number] 10/14/2019 12:00:00 AM EDT [facility] (Ammir Charles [...] results) Charles Physician) ID Date Data Source [id number] 10/14/2019 12:00:00 AM EDT [facility] (Ammir Charles [...] EGFR NON AFR 94 Normal (applies MEDGEN GAMBIAN mL/min/1 to non-numeric (Ammir .73m2 results) Charles Physician) EGFR AFR 114 Normal (applies [facility] GAMBIAN mL/min/1 to non-numeric (Ammir .73m2 results) Charles Physician) ID Date Data Source [id number] 10/14/2019 12:00:00 AM EDT [facility] (Ammir Charles Physician) Name Value Range Interpretation Description Data Sup porting Code Source(s) Document(s ) CREATINE 159 U/L Normal (applies to MEDGEN (Amm ir KINASE (CK) non-numeric Charles results) Physician) ID Date Data Source [id number] 10/14/2019 12:00:00 AM EDT [facility] (Ammir Charles [...] results) Charles Physician) ID Date Data Source [id number] 10/14/2019 12:00:00 AM EDT [facility] (Ammir Charles Physician) Name Value Range Interpretation Description Data Sup porting Code Source(s) Document(s ) BNP, B-TYPE 52.8 Normal (applies MED[facility] NATRIURETIC pg/mL to non-numeric (Ammir results) Charles Physician) ID Date Data Source [id number] 10/14/2019 12:00:00 AM EDT [facility] (Ammir Charles Physician) Name Value Range Interpretation Description Data Sup porting Code Source(s) Document(s ) Hemoglobin A1c 5.7 % Above high normal MEDGEN (Ammir in Blood Charles Physician) ID Date Data Source [id number] 10/14/2019 12:00:00 AM EDT [facility] (Ammir Charles Physician) Name Value Range Interpretation Description Data Sup porting Code Source(s) Document(s ) VITAMIN D 32.27 Below low normal MEDGEN (Ammir 25-HYDROXY ng/mL Charles Physician) ID Date Data Source [id number] 10/14/2019 12:00:00 AM EDT [facility] (Ammir Charles Physician) Name Value Range Interpretation Description Data Sup porting Code Source(s) Document(s ) FOLATE SERUM 15.6 Normal (applies to MEDGEN ( Ammir ng/mL non-numeric Charles results) Physician) VITAMIN B12 924 pg/mL Above high normal MEDGEN (Am teetee Charles Physician) ID Date Data Source [id number] 10/14/2019 12:00:00 AM EDT MED[facility] (Ammir Charles [...] results) Charles Physician) ID Date Data Source [id number] 10/14/2019 12:00:00 AM EDT [facility] (Ammir Charles [...] results) Charles Physician) ID Date Data Source [id number] 10/14/2019 12:00:00 AM EDT [facility] (Ammir Charles Physician) Name Value Range Interpretation Description Data Sup porting Code Source(s) Document(s ) TSH,3RD 1.59 Normal (applies to [facility] GENERATION uIU/mL non-numeric (Ammir results) Charles Physician) T4 FREE, 1.00 Normal (applies to [facility] THYROXINE ng/dL non-numeric (Ammir results) Charles Physician) ID Date Data Source [id number] 10/14/2019 12:00:00 AM EDT [facility] (Ammir Charles [...] results) Charles Physician) ID Date Data Source [id number] 10/04/2019 10:15:00 AM EDT [facility] Name Value Range Interpretation Code Description Data Faiza rce(s) Supporting Document(s ) HOLOGIC [facility] SARS-CoV-2 TMA PCR This lab was ordered by [email or web address] and reported by [employer]. ID Date Data Source [id number] 09/27/2019 10:08:00 AM EDT [facility] Name Value Range Interpretation Code Description Data Faiza rce(s) Supporting Document(s ) HOLOGIC [facility] SARS-CoV-2 TMA PCR This lab was ordered by [employer] and reported by [employer]. ID Date Data Source [id number] 06/09/2019 12:00:00 AM EDT [facility] Name Value Range Interpretation Code Description Data Faiza rce(s) Supporting Document(s ) 2019-nCoV [facility] RNA XXX CARMEN+probe- Imp This lab was ordered by [facility] and reported by [employer] ID Date Data Source [id number] 01/07/2019 12:00:00 AM EST MEDGEN (Ammir Charles [...] results) Charles Physician) ID Date Data Source [id number] 01/07/2019 12:00:00 AM EST [facility] (Ammir Charles [...] results) Charles Physician) ID Date Data Source [id number] 01/07/2019 12:00:00 AM EST [facility] (Ammir Charles [...] results) Charles Physician) ID Date Data Source [id number] 01/07/2019 12:00:00 AM EST [facility] (Ammir Charles [...] results) Charles Physician) ID Date Data Source [id number] 01/07/2019 12:00:00 AM EST [facility] (Ammir Charles [...] results) Charles Physician) ID Date Data Source [id number] 12/24/2018 12:00:00 AM EDT [facility] (Ammir Charles [...] EGFR NON AFR 95 Normal (applies [facility] GAMBIAN mL/min/1 to non-numeric (Ammir .73m2 results) Charles Physician) EGFR NON AFR 95 Normal (applies [facility] GAMBIAN mL/min/1 to non-numeric (Ammir .73m2 results) Charles Physician) EGFR AFR 114 Normal (applies [facility] GAMBIAN mL/min/1 to non-numeric (Ammir .73m2 results) Charles Physician) EGFR AFR 114 Normal (applies [facility] GAMBIAN mL/min/1 to non-numeric (Ammir .73m2 results) Charles Physician) ID Date Data Source [id number] 12/24/2018 12:00:00 AM EDT [facility] (Ammir Charles Physician) Name Value Range Interpretation Code Description Data Afiza rce(s) Supporting Document(s ) IRON, 42 ug/dL Normal (applies to MEDGEN (Amm ir TOTAL non-numeric Charles results) Physician) IRON, 42 ug/dL Normal (applies to [facility] (Amm ir TOTAL non-numeric Charles results) Physician) ID Date Data Source [id number] 12/24/2018 12:00:00 AM EDT [facility] (Ammir Charles Physician) Name Value Range Interpretation Code Description Data Afiza rce(s) Supporting Document(s ) IRON, 42 ug/dL Normal (applies to MEDGEN (Amm ir TOTAL non-numeric Charles results) Physician) IRON, 42 ug/dL Normal (applies to MEDGEN (Amm ir TOTAL non-numeric Charles results) Physician) ID Date Data Source [id number] 12/24/2018 12:00:00 AM EDT [facility] (Ammir Charles Physician) Name Value Range Interpretation Description Data Sup porting Code Source(s) Document(s ) Hemoglobin A1c 5.7 % Above high normal MEDGEN (Ammir in Blood Charles Physician) Hemoglobin A1c 5.7 % Above high normal MEDGEN (Ammir in Blood Charles Physician) ID Date Data Source [id number] 12/24/2018 12:00:00 AM EDT [facility] (Ammir Charles Physician) Name Value Range Interpretation Description Data Sup porting Code Source(s) Document(s ) Hemoglobin A1c 5.7 % Above high normal MEDGEN (Ammir in Blood Charles Physician) Hemoglobin A1c 5.7 % Above high normal MEDGEN (Ammir in Blood Charles Physician) ID Date Data Source [id number] 12/24/2018 12:00:00 AM EDT [facility] (Ammir Charles Physician) Name Value Range Interpretation Description Data Sup porting Code Source(s) Document(s ) VITAMIN D 26.99 Below low normal MED[facility] (Ammir 25-HYDROXY ng/mL Charles Physician) VITAMIN D 26.99 Below low normal [facility] (Ammir 25-HYDROXY ng/mL Charles Physician) ID Date Data Source [id number] 12/24/2018 12:00:00 AM EDT [facility] (Ammir Charles Physician) Name Value Range Interpretation Description Data Sup porting Code Source(s) Document(s ) VITAMIN D 26.99 Below low normal MEDGEN (Ammir 25-HYDROXY ng/mL Charles Physician) VITAMIN D 26.99 Below low normal MEDGEN (Ammir 25-HYDROXY ng/mL Charles Physician) ID Date Data Source [id number] 12/24/2018 12:00:00 AM EDT [facility] (Ammir Charles [...] Charles results) Physician) ID Date Data Source [id number] 12/24/2018 12:00:00 AM EDT [facility] (Ammir Charles [...] Charles results) Physician) ID Date Data Source [id number] 12/24/2018 12:00:00 AM EDT [facility] (Ammir Charles [...] results) Charles Physician) ID Date Data Source [id number] 12/24/2018 12:00:00 AM EDT [facility] (Ammir Charles [...] (applies MEDGEN g/dl to non-numeric (Ammir results) Charlse Physician) BILIRUBIN, TOTAL 0.2 Below low normal [...] Normal (applies MEDGEN to non-numeric (Ammir results) Hcarles Physician) EGFR NON AFR 95 Normal (applies MEDGEN GAMBIAN mL/min/1 to non-numeric (Ammir .73m2 results) Charles Physician) EGFR NON AFR 95 Normal (applies [facility] GAMBIAN mL/min/1 to non-numeric (Ammir .73m2 results) Charles Physician) EGFR AFR 114 Normal (applies [facility]GEN GAMBIAN mL/min/1 to non-numeric (Ammir .73m2 results) Charles Physician) EGFR AFR 114 Normal (applies [facility]GEN GAMBIAN mL/min/1 to non-numeric (Ammir .73m2 results) Charles Physician) ID Date Data Source [id number] 12/24/2018 12:00:00 AM EDT [facility] (Ammir Charles [...] results) Charles Physician) ID Date Data Source [id number] 12/24/2018 12:00:00 AM EDT [facility] (Ammir Charles [...] (Ammir Charles Physician) ID Date Data Source [id number] 12/24/2018 12:00:00 AM EDT [facility] (Ammir Charles [...] (Ammir Charles Physician) ID Date Data Source [id number] 12/24/2018 12:00:00 AM EDT [facility] (Ammir Charles Physician) Name Value Range Interpretation Description Data Sup porting Code Source(s) Document(s ) Ferritin 14.4 Normal (applies to [facility]GEN (Amm ir [Interpretat ng/mL non-numeric Charles ion] in results) Physician) Blood Ferritin 14.4 Normal (applies to [facility] (Amm ir [Interpretat ng/mL non-numeric Charles ion] in results) Physician) Blood ID Date Data Source [id number] 12/24/2018 12:00:00 AM EDT [facility] (Ammir Charles Physician) Name Value Range Interpretation Description Data Sup porting Code Source(s) Document(s ) Ferritin 14.4 Normal (applies to [facility]GEN (Amm ir [Interpretat ng/mL non-numeric Charles ion] in results) Physician) Blood Ferritin 14.4 Normal (applies to [facility]GEN (Amm ir [Interpretat ng/mL non-numeric Charles ion] in results) Physician) Blood ID Date Data Source [id number] 12/24/2018 12:00:00 AM EDT [facility] (Ammir Charles [...] results) Charles Physician) ID Date Data Source [id number] 12/24/2018 12:00:00 AM EDT [facility] (Ammir Charles [...] results) Charles Physician) ID Date Data Source [id number] 12/24/2018 12:00:00 AM EDT [facility] (Ammir Charles [...] results) Charles Physician) ID Date Data Source [id number] 12/24/2018 12:00:00 AM EDT [facility] (Ammir Charles [...] results) Charles Physician) ID Date Data Source [id number] 12/24/2018 12:00:00 AM EDT [facility] (Ammir Charles [...] (Ammir Charles Physician) ID Date Data Source [id number] 12/24/2018 12:00:00 AM EDT [facility] (Ammir Charles [...] (Ammir Charles Physician) ID Date Data Source [id number] 12/24/2018 12:00:00 AM EDT [facility] (Ammir Charles Physician) Name Value Range Interpretation Description Data Sup porting Code Source(s) Document(s ) Ferritin 14.4 Normal (applies to [facility] (Amm ir [Interpretat ng/mL non-numeric Charles ion] in results) Physician) Blood Ferritin 14.4 Normal (applies to [facility] (Amm ir [Interpretat ng/mL non-numeric Charles ion] in results) Physician) Blood ID Date Data Source [id number] 12/24/2018 12:00:00 AM EDT [facility] (Ammir Charles Physician) Name Value Range Interpretation Description Data Sup porting Code Source(s) Document(s ) Ferritin 14.4 Normal (applies to [facility] (Amm ir [Interpretat ng/mL non-numeric Charles ion] in results) Physician) Blood Ferritin 14.4 Normal (applies to [facility] (Amm ir [Interpretat ng/mL non-numeric Charles ion] in results) Physician) Blood ID Date Data Source [id number] 12/24/2018 12:00:00 AM EDT [facility] (Ammir Charles [...] results) Charles Physician) ID Date Data Source [id number] 12/24/2018 12:00:00 AM EDT [facility] (Ammir Charles [...] results) Charles Physician) ID Date Data Source [id number] 12/24/2018 12:00:00 AM EDT [facility] (Ammir Charles [...] EGFR NON AFR 95 Normal (applies [facility] [place] mL/min/1 to non-numeric (Ammir .73m2 results) Charles Physician) EGFR NON AFR 95 Normal (applies [facility] [place] mL/min/1 to non-numeric (Ammir .73m2 results) Charles Physician) EGFR AFR 114 Normal (applies [facility] [place] mL/min/1 to non-numeric (Ammir .73m2 results) Charles Physician) EGFR AFR 114 Normal (applies [facility] [place] mL/min/1 to non-numeric (Ammir .73m2 results) Charles Physician) ID Date Data Source [id number] 12/24/2018 12:00:00 AM EDT [facility] (Ammir Charles [...] EGFR NON AFR 95 Normal (applies [facility] [place] mL/min/1 to non-numeric (Ammir .73m2 results) Charles Physician) EGFR NON AFR 95 Normal (applies [facility] [place] mL/min/1 to non-numeric (Ammir .73m2 results) Charles Physician) EGFR AFR 114 Normal (applies [facility] [place] mL/min/1 to non-numeric (Ammir .73m2 results) Charles Physician) EGFR AFR 114 Normal (applies [facility] [place] mL/min/1 to non-numeric (Ammir .73m2 results) Charles Physician) ID Date Data Source [id number] 12/24/2018 12:00:00 AM EDT [facility] (Ammir Charles Physician) Name Value Range Interpretation Code Description Data Faiza rce(s) Supporting Document(s ) IRON, 42 ug/dL Normal (applies to [facility] (Amm ir TOTAL non-numeric Charles results) Physician) IRON, 42 ug/dL Normal (applies to [facility] (Amm ir TOTAL non-numeric Charles results) Physician) ID Date Data Source [id number] 12/24/2018 12:00:00 AM EDT [facility] (Ammir Charles Physician) Name Value Range Interpretation Code Description Data Faiza rce(s) Supporting Document(s ) IRON, 42 ug/dL Normal (applies to [facility] (Amm ir TOTAL non-numeric Charles results) Physician) IRON, 42 ug/dL Normal (applies to [facility] (Amm ir TOTAL non-numeric Charles results) Physician) ID Date Data Source [id number] 12/24/2018 12:00:00 AM EDT [facility] (Ammir Charles Physician) Name Value Range Interpretation Description Data Sup porting Code Source(s) Document(s ) Hemoglobin A1c 5.7 % Above high normal [facility] (Ammir in Blood Charles Physician) Hemoglobin A1c 5.7 % Above high normal [facility] (Ammir in Blood Charles Physician) ID Date Data Source [id number] 12/24/2018 12:00:00 AM EDT [facility] (Ammir Charles Physician) Name Value Range Interpretation Description Data Sup porting Code Source(s) Document(s ) Hemoglobin A1c 5.7 % Above high normal [facility] (Ammir in Blood Charles Physician) Hemoglobin A1c 5.7 % Above high normal [facility] (Ammir in Blood Charles Physician) ID Date Data Source [id number] 12/24/2018 12:00:00 AM EDT [facility] (Ammir Charles Physician) Name Value Range Interpretation Description Data Sup porting Code Source(s) Document(s ) VITAMIN D 26.99 Below low normal [facility] (Ammir 25-HYDROXY ng/mL Charles Physician) VITAMIN D 26.99 Below low normal [facility] (Ammir 25-HYDROXY ng/mL Charles Physician) ID Date Data Source [id number] 12/24/2018 12:00:00 AM EDT [facility] (Ammir Charles Physician) Name Value Range Interpretation Description Data Sup porting Code Source(s) Document(s ) VITAMIN D 26.99 Below low normal [facility] (Ammir 25-HYDROXY ng/mL Charles Physician) VITAMIN D 26.99 Below low normal [facility] (Ammir 25-HYDROXY ng/mL Charles Physician) ID Date Data Source [id number] 12/24/2018 12:00:00 AM EDT [facility] (Ammir Charles [...] Charles results) Physician) ID Date Data Source [id number] 12/24/2018 12:00:00 AM EDT [facility] (Ammir Charles [...] Charles results) Physician) ID Date Data Source [id number] 12/24/2018 12:00:00 AM EDT [facility] (Ammir Charles [...] results) Charles Physician) ID Date Data Source [id number] 12/24/2018 12:00:00 AM EDT [facility] (Ammir Charles [...] Body fluid mEq/L to non-numeric (Ammir results) Charels Physician) Anion gap in 7.4 Normal (applies [...] EGFR NON AFR 95 Normal (applies [facility] [place] mL/min/1 to non-numeric (Ammir .73m2 results) Charles Physician) EGFR NON AFR 95 Normal (applies [facility] [place] mL/min/1 to non-numeric (Ammir .73m2 results) Charles Physician) EGFR AFR 114 Normal (applies [facility] [place] mL/min/1 to non-numeric (Ammir .73m2 results) Charles Physician) EGFR AFR 114 Normal (applies [facility] [place] mL/min/1 to non-numeric (Ammir .73m2 results) Charles Physician) ID Date Data Source [id number] 12/24/2018 12:00:00 AM EDT [facility] (Ammir Charles Physician) Name Value Range Interpretation Code Description Data Faiza rce(s) Supporting Document(s ) IRON, 42 ug/dL Normal (applies to [facility] (Amm ir TOTAL non-numeric Charles results) Physician) IRON, 42 ug/dL Normal (applies to [facility] (Amm ir TOTAL non-numeric Charles results) Physician) ID Date Data Source [id number] 12/24/2018 12:00:00 AM EDT [facility] (Ammir Charles Physician) Name Value Range Interpretation Code Description Data Faiza rce(s) Supporting Document(s ) IRON, 42 ug/dL Normal (applies to [facility] (Amm ir TOTAL non-numeric Charles results) Physician) IRON, 42 ug/dL Normal (applies to [facility] (Amm ir TOTAL non-numeric Charles results) Physician) ID Date Data Source [id number] 12/24/2018 12:00:00 AM EDT [facility] (Ammir Charles Physician) Name Value Range Interpretation Description Data Sup porting Code Source(s) Document(s ) Hemoglobin A1c 5.7 % Above high normal [facility] (Ammir in Blood Charles Physician) Hemoglobin A1c 5.7 % Above high normal [facility] (Ammir in Blood Charles Physician) ID Date Data Source [id number] 12/24/2018 12:00:00 AM EDT [facility] (Ammir Charles Physician) Name Value Range Interpretation Description Data Sup porting Code Source(s) Document(s ) Hemoglobin A1c 5.7 % Above high normal [facility] (Ammir in Blood Charles Physician) Hemoglobin A1c 5.7 % Above high normal [facility] (Ammir in Blood Charles Physician) ID Date Data Source [id number] 12/24/2018 12:00:00 AM EDT [facility] (Ammir Charles Physician) Name Value Range Interpretation Description Data Sup porting Code Source(s) Document(s ) VITAMIN D 26.99 Below low normal [facility] (Ammir 25-HYDROXY ng/mL Charles Physician) VITAMIN D 26.99 Below low normal [facility] (Ammir 25-HYDROXY ng/mL Charles Physician) ID Date Data Source [id number] 12/24/2018 12:00:00 AM EDT [facility] (Ammir Charles Physician) Name Value Range Interpretation Description Data Sup porting Code Source(s) Document(s ) VITAMIN D 26.99 Below low normal [facility] (Ammir 25-HYDROXY ng/mL Charles Physician) VITAMIN D 26.99 Below low normal [facility] (Ammir 25-HYDROXY ng/mL Charles Physician) ID Date Data Source [id number] 12/24/2018 12:00:00 AM EDT [facility] (Ammir Charles [...] Charles results) Physician) ID Date Data Source [id number] 12/24/2018 12:00:00 AM EDT [facility] (Ammir Charles [...] Charles results) Physician) ID Date Data Source [id number] 12/24/2018 12:00:00 AM EDT [facility] (Ammir Charles [...] results) Charles Physician) ID Date Data Source [id number] 12/24/2018 12:00:00 AM EDT [facility] (Ammir Charles [...] (Ammir Charles Physician) ID Date Data Source [id number] 12/24/2018 12:00:00 AM EDT [facility] (Ammir Charles [...] (Ammir Charles Physician) ID Date Data Source [id number] 12/24/2018 12:00:00 AM EDT [facility] (Ammir Charles Physician) Name Value Range Interpretation Description Data Sup porting Code Source(s) Document(s ) Ferritin 14.4 Normal (applies to [facility] (Amm ir [Interpretat ng/mL non-numeric Charles ion] in results) Physician) Blood Ferritin 14.4 Normal (applies to [facility] (Amm ir [Interpretat ng/mL non-numeric Charles ion] in results) Physician) Blood ID Date Data Source [id number] 12/24/2018 12:00:00 AM EDT [facility] (Ammir Chalres Physician) Name Value Range Interpretation Description Data Sup porting Code Source(s) Document(s ) Ferritin 14.4 Normal (applies to [facility] (Amm ir [Interpretat ng/mL non-numeric Charles ion] in results) Physician) Blood Ferritin 14.4 Normal (applies to [facility] (Amm ir [Interpretat ng/mL non-numeric Charles ion] in results) Physician) Blood ID Date Data Source [id number] 12/24/2018 12:00:00 AM EDT [facility] (Ammir Charles [...] results) Charles Physician) ID Date Data Source [id number] 12/24/2018 12:00:00 AM EDT [facility] (Ammir Charles [...] results) Charles Physician) ID Date Data Source [id number] 12/24/2018 12:00:00 AM EDT [facility] (Ammir Charles [...] results) Charles Physician) ID Date Data Source [id number] 12/24/2018 12:00:00 AM EDT [facility] (Ammir Charles [...] results) Charles Physician) ID Date Data Source [id number] 12/24/2018 12:00:00 AM EDT [facility] (Ammir Charles [...] (applies [facility] 10(3)/uL to non-numeric (Ammir results) Chrales Physician) Basophil Abs 0.06 Normal (applies [facility] [...] results) Charles Physician) ID Date Data Source [id number] 12/24/2018 12:00:00 AM EDT [facility] (Ammir Charles [...] results) Charles Physician) ID Date Data Source [id number] 12/24/2018 12:00:00 AM EDT [facility] (Ammir Charles [...] results) Charles Physician) ID Date Data Source [id number] 12/24/2018 12:00:00 AM EDT [facility] (Ammir Charles [...] EGFR NON AFR 95 Normal (applies [facility] [place] mL/min/1 to non-numeric (Ammir .73m2 results) Charles Physician) EGFR NON AFR 95 Normal (applies [facility] [place] mL/min/1 to non-numeric (Ammir .73m2 results) Charles Physician) EGFR AFR 114 Normal (applies [facility] [place] mL/min/1 to non-numeric (Ammir .73m2 results) Charles Physician) EGFR AFR 114 Normal (applies [facility] [place] mL/min/1 to non-numeric (Ammir .73m2 results) Charles Physician) ID Date Data Source [id number] 12/24/2018 12:00:00 AM EDT [facility] (Ammir Charles [...] EGFR NON AFR 95 Normal (applies [facility] [place] mL/min/1 to non-numeric (Ammir .73m2 results) Charles Physician) EGFR NON AFR 95 Normal (applies [facility] [place] mL/min/1 to non-numeric (Ammir .73m2 results) Charles Physician) EGFR AFR 114 Normal (applies [facility] [place] mL/min/1 to non-numeric (Ammir .73m2 results) Charles Physician) EGFR AFR 114 Normal (applies [facility] [place] mL/min/1 to non-numeric (Ammir .73m2 results) Charles Physician) ID Date Data Source [id number] 12/24/2018 12:00:00 AM EDT [facility] (Ammir Charles Physician) Name Value Range Interpretation Code Description Data Faiza rce(s) Supporting Document(s ) IRON, 42 ug/dL Normal (applies to [facility] (Amm ir TOTAL non-numeric Charles results) Physician) IRON, 42 ug/dL Normal (applies to [facility] (Amm ir TOTAL non-numeric Charles results) Physician) ID Date Data Source [id number] 12/24/2018 12:00:00 AM EDT [facility] (Ammir Charles Physician) Name Value Range Interpretation Code Description Data Faiza rce(s) Supporting Document(s ) IRON, 42 ug/dL Normal (applies to [facility] (Amm ir TOTAL non-numeric Charles results) Physician) IRON, 42 ug/dL Normal (applies to [facility] (Amm ir TOTAL non-numeric Charles results) Physician) ID Date Data Source [id number] 12/24/2018 12:00:00 AM EDT [facility] (Ammir Charles Physician) Name Value Range Interpretation Description Data Sup porting Code Source(s) Document(s ) Hemoglobin A1c 5.7 % Above high normal [facility] (Ammir in Blood Charles Physician) Hemoglobin A1c 5.7 % Above high normal [facility] (Ammir in Blood Charles Physician) ID Date Data Source [id number] 12/24/2018 12:00:00 AM EDT [facility] (Ammir Charles Physician) Name Value Range Interpretation Description Data Sup porting Code Source(s) Document(s ) Hemoglobin A1c 5.7 % Above high normal [facility] (Ammir in Blood Charles Physician) Hemoglobin A1c 5.7 % Above high normal [facility] (Ammir in Blood Charles Physician) ID Date Data Source [id number] 12/24/2018 12:00:00 AM EDT [facility] (Ammir Charles Physician) Name Value Range Interpretation Description Data Sup porting Code Source(s) Document(s ) VITAMIN D 26.99 Below low normal [facility] (Ammir 25-HYDROXY ng/mL Charles Physician) VITAMIN D 26.99 Below low normal [facility] (Ammir 25-HYDROXY ng/mL Charles Physician) ID Date Data Source [id number] 12/24/2018 12:00:00 AM EDT [facility] (Ammir Charles Physician) Name Value Range Interpretation Description Data Sup porting Code Source(s) Document(s ) VITAMIN D 26.99 Below low normal [facility] (Ammir 25-HYDROXY ng/mL Charles Physician) VITAMIN D 26.99 Below low normal [facility] (Ammir 25-HYDROXY ng/mL Charles Physician) ID Date Data Source [id number] 12/24/2018 12:00:00 AM EDT [facility] (Ammir Charles [...] Charles results) Physician) ID Date Data Source [id number] 12/24/2018 12:00:00 AM EDT [facility] (Ammir Charles [...] Charles results) Physician) ID Date Data Source [id number] 12/24/2018 12:00:00 AM EDT [facility] (Ammir Charles Physician) Name Value Range Interpretation Description Data Sup porting Code Source(s) Document(s ) WBC 7.3 Normal (applies [facility] 10(3)/uL to non-numeric (Ammir results) Charlse Physician) WBC 7.3 Normal (applies [facility] 10(3)/uL [...] results) Charles Physician) ID Date Data Source [id number] 12/24/2018 12:00:00 AM EDT [facility] (Ammir Charles [...] results) Charles Physician) ID Date Data Source [id number] 12/24/2018 12:00:00 AM EDT [facility] (Ammir Charles [...] (Ammir Charles Physician) ID Date Data Source [id number] 12/24/2018 12:00:00 AM EDT [facility] (Ammir Charles [...] (Ammir Charles Physician) ID Date Data Source [id number] 12/24/2018 12:00:00 AM EDT [facility] (Ammir Charles Physician) Name Value Range Interpretation Description Data Sup porting Code Source(s) Document(s ) Ferritin 14.4 Normal (applies to [facility] (Amm ir [Interpretat ng/mL non-numeric Charles ion] in results) Physician) Blood Ferritin 14.4 Normal (applies to [facility] (Amm ir [Interpretat ng/mL non-numeric Charles ion] in results) Physician) Blood ID Date Data Source [id number] 12/24/2018 12:00:00 AM EDT [facility] (Ammir Charles Physician) Name Value Range Interpretation Description Data Sup porting Code Source(s) Document(s ) Ferritin 14.4 Normal (applies to [facility] (Amm ir [Interpretat ng/mL non-numeric Charles ion] in results) Physician) Blood Ferritin 14.4 Normal (applies to [facility] (Amm ir [Interpretat ng/mL non-numeric Charles ion] in results) Physician) Blood ID Date Data Source [id number] 12/24/2018 12:00:00 AM EDT [facility] (Ammir Charles [...] results) Charles Physician) ID Date Data Source [id number] 12/24/2018 12:00:00 AM EDT [facility] (Ammir Charles [...] results) Charles Physician) ID Date Data Source [id number] 12/24/2018 12:00:00 AM EDT [facility] (Ammir Charles [...] results) Charles Physician) ID Date Data Source [id number] 12/24/2018 12:00:00 AM EDT [facility] (Ammir Charles [...] results) Charles Physician) ID Date Data Source [id number] 12/24/2018 12:00:00 AM EDT [facility] (Ammir Charles [...] EGFR NON AFR 95 Normal (applies [facility] [place] mL/min/1 to non-numeric (Ammir .73m2 results) Charles Physician) EGFR NON AFR 95 Normal (applies [facility] [place] mL/min/1 to non-numeric (Ammir .73m2 results) Charles Physician) EGFR AFR 114 Normal (applies [facility] [place] mL/min/1 to non-numeric (Ammir .73m2 results) Charles Physician) EGFR AFR 114 Normal (applies [facility] [place] mL/min/1 to non-numeric (Ammir .73m2 results) Charles Physician) ID Date Data Source [id number] 12/24/2018 12:00:00 AM EDT [facility] (Ammir Charles [...] [facility] SERUM mg/dL to non-numeric (Ammir results) Charlse Physician) CREATININE, 0.70 Normal (applies [facility] SERUM [...] EGFR NON AFR 95 Normal (applies [facility] [place] mL/min/1 to non-numeric (Ammir .73m2 results) Charles Physician) EGFR NON AFR 95 Normal (applies [facility] [place] mL/min/1 to non-numeric (Ammir .73m2 results) Charles Physician) EGFR AFR 114 Normal (applies [facility] [place] mL/min/1 to non-numeric (Ammir .73m2 results) Charles Physician) EGFR AFR 114 Normal (applies [facility] [place] mL/min/1 to non-numeric (Ammir .73m2 results) Charles Physician) ID Date Data Source [id number] 12/24/2018 12:00:00 AM EDT [facility] (Ammir Charles [...] (Ammir Charles Physician) ID Date Data Source [id number] 12/24/2018 12:00:00 AM EDT [facility] (Ammir Charles [...] (Ammir Charles Physician) ID Date Data Source [id number] 12/24/2018 12:00:00 AM EDT [facility] (Ammir Charles Physician) Name Value Range Interpretation Description Data Sup porting Code Source(s) Document(s ) Ferritin 14.4 Normal (applies to [facility] (Amm ir [Interpretat ng/mL non-numeric Charles ion] in results) Physician) Blood Ferritin 14.4 Normal (applies to [facility] (Amm ir [Interpretat ng/mL non-numeric Charles ion] in results) Physician) Blood ID Date Data Source [id number] 12/24/2018 12:00:00 AM EDT [facility] (Ammir Charles Physician) Name Value Range Interpretation Description Data Sup porting Code Source(s) Document(s ) Ferritin 14.4 Normal (applies to [facility] (Amm ir [Interpretat ng/mL non-numeric Charles ion] in results) Physician) Blood Ferritin 14.4 Normal (applies to [facility] (Amm ir [Interpretat ng/mL non-numeric Charles ion] in results) Physician) Blood ID Date Data Source [id number] 12/24/2018 12:00:00 AM EDT [facility] (Ammir Charles [...] results) Charles Physician) ID Date Data Source [id number] 12/24/2018 12:00:00 AM EDT [facility] (Ammir Charles [...] results) Charles Physician) ID Date Data Source [id number] 12/24/2018 12:00:00 AM EDT [facility] (Ammir Charles [...] results) Charles Physician) ID Date Data Source [id number] 12/24/2018 12:00:00 AM EDT [facility] (Ammir Charles Physician) Name Value Range Interpretation Code Description Data Faiza rce(s) Supporting Document(s ) IRON, 42 ug/dL Normal (applies to [facility] (Amm ir TOTAL non-numeric Charles results) Physician) IRON, 42 ug/dL Normal (applies to [facility] (Amm ir TOTAL non-numeric Charles results) Physician) ID Date Data Source [id number] 12/24/2018 12:00:00 AM EDT [facility] (Ammir Charles Physician) Name Value Range Interpretation Code Description Data Faiza rce(s) Supporting Document(s ) IRON, 42 ug/dL Normal (applies to [facility] (Amm ir TOTAL non-numeric Charles results) Physician) IRON, 42 ug/dL Normal (applies to [facility] (Amm ir TOTAL non-numeric Charles results) Physician) ID Date Data Source [id number] 12/24/2018 12:00:00 AM EDT [facility] (Ammir Charles [...] (applies [facility] 10(3)/uL to non-numeric (Ammir results) Charlse Physician) Eosinophil Abs 0.09 Normal (applies [facility] [...] (Ammir Charles Physician) ID Date Data Source [id number] 12/24/2018 12:00:00 AM EDT [facility] (Ammir Charles Physician) Name Value Range Interpretation Description Data Sup porting Code Source(s) Document(s ) Hemoglobin A1c 5.7 % Above high normal [facility] (Ammir in Blood Charles Physician) Hemoglobin A1c 5.7 % Above high normal [facility] (Ammir in Blood Charles Physician) ID Date Data Source [id number] 12/24/2018 12:00:00 AM EDT [facility] (Ammir Charles Physician) Name Value Range Interpretation Description Data Sup porting Code Source(s) Document(s ) VITAMIN D 26.99 Below low normal [facility] (Ammir 25-HYDROXY ng/mL Charles Physician) VITAMIN D 26.99 Below low normal [facility] (Ammir 25-HYDROXY ng/mL Charles Physician) ID Date Data Source [id number] 12/24/2018 12:00:00 AM EDT [facility] (Ammir Charles Physician) Name Value Range Interpretation Description Data Sup porting Code Source(s) Document(s ) VITAMIN D 26.99 Below low normal [facility] (Ammir 25-HYDROXY ng/mL Charles Physician) VITAMIN D 26.99 Below low normal [facility] (Ammir 25-HYDROXY ng/mL Charles Physician) ID Date Data Source [id number] 12/24/2018 12:00:00 AM EDT [facility] (Ammir Charles Physician) Name Value Range Interpretation Description Data Sup porting Code Source(s) Document(s ) FOLATE SERUM 25.9 Normal (applies to [facility] ( Ammir ng/mL non-numeric Charles results) Physician) FOLATE SERUM 25.9 Normal (applies to [facility] ( Ammir ng/mL non-numeric Charles results) Physician) VITAMIN B12 881 pg/mL Normal (applies to [facility] (A mmir non-numeric Cahrles results) Physician) VITAMIN B12 881 pg/mL Normal (applies to [facility] (A mmir non-numeric Charles results) Physician) ID Date Data Source [id number] 12/24/2018 12:00:00 AM EDT [facility] (Ammir Charles [...] Charles results) Physician) ID Date Data Source [id number] 12/24/2018 12:00:00 AM EDT [facility] (Ammir Charles [...] (applies [facility] 10(3)/uL to non-numeric (Ammir results) Hcarles Physician) Monocyte Abs 0.42 Normal (applies [facility] [...] results) Charles Physician) ID Date Data Source [id number] 12/24/2018 12:00:00 AM EDT [facility] (Ammir Charles [...] results) Charles Physician) ID Date Data Source [id number] 12/24/2018 12:00:00 AM EDT [facility] (Ammir Charles [...] results) Charles Physician) ID Date Data Source [id number] 03/27/2018 12:00:00 AM EST [facility] (Ammir Charles [...] (Ammir Charles Physician) ID Date Data Source [id number] 03/27/2018 12:00:00 AM EST [facility] (Ammir Charles [...] results) Charles Physician) ID Date Data Source [id number] 03/27/2018 12:00:00 AM EST [facility] (Ammir Charles Physician) Name Value Range Interpretation Description Data Sup porting Code Source(s) Document(s ) Ferritin 52.2 Normal (applies to [facility] (Amm ir [Interpretat ng/mL non-numeric Charles ion] in results) Physician) Blood ID Date Data Source [id number] 03/27/2018 12:00:00 AM EST [facility] (Ammir Charles Physician) Name Value Range Interpretation Description Data Sup porting Code Source(s) Document(s ) T4 FREE, 1.09 Normal (applies to [facility] THYROXINE ng/dL non-numeric (Ammir results) Charles Physician) TSH,3RD 3.30 Normal (applies to [facility] GENERATION uIU/mL non-numeric (Ammir results) Charles Physician) ID Date Data Source [id number] 03/27/2018 12:00:00 AM EST [facility] (Ammir Charles Physician) Name Value Range Interpretation Description Data Sup porting Code Source(s) Document(s ) Hemoglobin A1c 5.8 % Above high normal [facility] (Ammir in Blood Charles Physician) ID Date Data Source [id number] 03/27/2018 12:00:00 AM EST [facility] (Ammir Charles [...] NON AFR 81 Above high normal [facility] GAMBI[place] mL/min/1 (Ammir .73m2 Charles Physician) EGFR AFR 98 Above high normal [facility] GAMBI[place] mL/min/1 (Ammir .73m2 Charles Physician) ID Date Data Source [id number] 03/27/2018 12:00:00 AM EST [facility] (Ammir Charles [...] results) Charles Physician) ID Date Data Source [id number] 03/27/2018 12:00:00 AM EST [facility] (Ammir Charles Physician) Name Value Range Interpretation Description Data Sup porting Code Source(s) Document(s ) VITAMIN D 15.16 Below low normal [facility] (Ammir 25-HYDROXY ng/mL Charles Physician) ID Date Data Source [id number] 03/27/2018 12:00:00 AM EST [facility] (Ammir Charles Physician) Name Value Range Interpretation Description Data Sup porting Code Source(s) Document(s ) FOLATE 20.7 ng/mL Above high normal [facility] (Amm ir SERUM Charles Physician) ID Date Data Source [id number] 03/27/2018 12:00:00 AM EST [facility] (Ammir Charles Physician) Name Value Range Interpretation Description Data Sup porting Code Source(s) Document(s ) VITAMIN B12 1353 Above high normal [facility] (Am [place] pg/mL Charles Physician) ID Date Data Source [id number] 03/27/2018 12:00:00 AM EST [facility] (Ammir Charles Physician) Name Value Range Interpretation Description Data Sup porting Code Source(s) Document(s ) Ferritin 52.2 Normal (applies to [facility] (Amm ir [Interpretat ng/mL non-numeric Charles ion] in results) Physician) Blood ID Date Data Source [id number] 03/27/2018 12:00:00 AM EST [facility] (Ammir Charles Physician) Name Value Range Interpretation Description Data Sup porting Code Source(s) Document(s ) T4 FREE, 1.09 Normal (applies to [facility] THYROXINE ng/dL non-numeric (Ammir results) Charles Physician) TSH,3RD 3.30 Normal (applies to [facility] GENERATION uIU/mL non-numeric (Ammir results) Charles Physician) ID Date Data Source [id number] 03/27/2018 12:00:00 AM EST [facility] (Ammir Charles Physician) Name Value Range Interpretation Description Data Sup porting Code Source(s) Document(s ) Hemoglobin A1c 5.8 % Above high normal [facility] (Ammir in Blood Charles Physician) ID Date Data Source [id number] 03/27/2018 12:00:00 AM EST [facility] (Ammir Charles [...] NON AFR 81 Above high normal [facility] GAMBIAN mL/min/1 (Ammir .73m2 Charles Physician) EGFR AFR 98 Above high normal [facility] GAMBIAN mL/min/1 (Ammir .73m2 Charles Physician) ID Date Data Source [id number] 03/27/2018 12:00:00 AM EST [facility] (Ammir Charles [...] results) Charles Physician) ID Date Data Source [id number] 03/27/2018 12:00:00 AM EST [facility] (Ammir Charles Physician) Name Value Range Interpretation Description Data Sup porting Code Source(s) Document(s ) VITAMIN D 15.16 Below low normal [facility] (Ammir 25-HYDROXY ng/mL Charles Physician) ID Date Data Source [id number] 03/27/2018 12:00:00 AM EST [facility] (Ammir Charles Physician) Name Value Range Interpretation Description Data Sup porting Code Source(s) Document(s ) FOLATE 20.7 ng/mL Above high normal [facility] (Amm ir SERUM Charles Physician) ID Date Data Source [id number] 03/27/2018 12:00:00 AM EST [facility] (Ammir Charles Physician) Name Value Range Interpretation Description Data Sup porting Code Source(s) Document(s ) VITAMIN B12 1353 Above high normal [facility] (Am teetee pg/mL Charles Physician) ID Date Data Source [id number] 03/27/2018 12:00:00 AM EST [facility] (Ammir Charles [...] (Ammir Charles Physician) ID Date Data Source [id number] 03/27/2018 12:00:00 AM EST [facility] (Ammir Charles [...] results) Charles Physician) ID Date Data Source [id number] 03/27/2018 12:00:00 AM EST [facility] (Ammir Charles Physician) Name Value Range Interpretation Description Data Sup porting Code Source(s) Document(s ) Ferritin 52.2 Normal (applies to [facility] (Amm ir [Interpretat ng/mL non-numeric Charles ion] in results) Physician) Blood ID Date Data Source [id number] 03/27/2018 12:00:00 AM EST [facility] (Ammir Charles Physician) Name Value Range Interpretation Description Data Sup porting Code Source(s) Document(s ) T4 FREE, 1.09 Normal (applies to [facility] THYROXINE ng/dL non-numeric (Ammir results) Charles Physician) TSH,3RD 3.30 Normal (applies to [facility] GENERATION uIU/mL non-numeric (Ammir results) Charles Physician) ID Date Data Source [id number] 03/27/2018 12:00:00 AM EST [facility] (Ammir Charles Physician) Name Value Range Interpretation Description Data Sup porting Code Source(s) Document(s ) Hemoglobin A1c 5.8 % Above high normal [facility] (Ammir in Blood Charles Physician) ID Date Data Source [id number] 03/27/2018 12:00:00 AM EST [facility] (Ammir Charles [...] NON AFR 81 Above high normal [facility] GAMBIAN mL/min/1 (Ammir .73m2 Charles Physician) EGFR AFR 98 Above high normal [facility] GAMBIAN mL/min/1 (Ammir .73m2 Charles Physician) ID Date Data Source [id number] 03/27/2018 12:00:00 AM EST [facility] (Ammir Charles [...] results) Charles Physician) ID Date Data Source [id number] 03/27/2018 12:00:00 AM EST [facility] (Ammir Charles [...] (Ammir Charles Physician) ID Date Data Source [id number] 03/27/2018 12:00:00 AM EST [facility] (Ammir Charles [...] results) Charles Physician) ID Date Data Source [id number] 03/27/2018 12:00:00 AM EST [facility] (Ammir Charles Physician) Name Value Range Interpretation Description Data Sup porting Code Source(s) Document(s ) Ferritin 52.2 Normal (applies to [facility] (Amm ir [Interpretat ng/mL non-numeric Charles ion] in results) Physician) Blood ID Date Data Source [id number] 03/27/2018 12:00:00 AM EST [facility] (Ammir Charles Physician) Name Value Range Interpretation Description Data Sup porting Code Source(s) Document(s ) T4 FREE, 1.09 Normal (applies to [facility] THYROXINE ng/dL non-numeric (Ammir results) Charles Physician) TSH,3RD 3.30 Normal (applies to [facility] GENERATION uIU/mL non-numeric (Ammir results) Charles Physician) ID Date Data Source [id number] 03/27/2018 12:00:00 AM EST [facility] (Ammir Charles Physician) Name Value Range Interpretation Description Data Sup porting Code Source(s) Document(s ) Hemoglobin A1c 5.8 % Above high normal [facility] (Ammir in Blood Charles Physician) ID Date Data Source [id number] 03/27/2018 12:00:00 AM EST [facility] (Ammir Charles [...] NON AFR 81 Above high normal [facility] GAMBIAN mL/min/1 (Ammir .73m2 Charles Physician) EGFR AFR 98 Above high normal [facility] GAMBIAN mL/min/1 (Ammir .73m2 Charles Physician) ID Date Data Source [id number] 03/27/2018 12:00:00 AM EST [facility] (Ammir Charles [...] results) Charles Physician) ID Date Data Source [id number] 03/27/2018 12:00:00 AM EST [facility] (Ammir Charles Physician) Name Value Range Interpretation Description Data Sup porting Code Source(s) Document(s ) VITAMIN D 15.16 Below low normal [facility] (Ammir 25-HYDROXY ng/mL Charles Physician) ID Date Data Source [id number] 03/27/2018 12:00:00 AM EST [facility] (Ammir Charles Physician) Name Value Range Interpretation Description Data Sup porting Code Source(s) Document(s ) FOLATE 20.7 ng/mL Above high normal [facility] (Amm ir SERUM Charles Physician) ID Date Data Source [id number] 03/27/2018 12:00:00 AM EST [facility] (Ammir Charles Physician) Name Value Range Interpretation Description Data Sup porting Code Source(s) Document(s ) VITAMIN B12 1353 Above high normal [facility] (Am teetee pg/mL Charles Physician) ID Date Data Source [id number] 03/27/2018 12:00:00 AM EST [facility] (Ammir Charles [...] (Ammir Charles Physician) ID Date Data Source [id number] 03/27/2018 12:00:00 AM EST [facility] (Ammir Charles [...] results) Charles Physician) ID Date Data Source [id number] 03/27/2018 12:00:00 AM EST [facility] (Ammir Charles [...] (Ammir Charles Physician) ID Date Data Source [id number] 03/27/2018 12:00:00 AM EST [facility] (Ammir Charles [...] results) Charles Physician) ID Date Data Source [id number] 03/27/2018 12:00:00 AM EST [facility] (Ammir Charles Physician) Name Value Range Interpretation Description Data Sup porting Code Source(s) Document(s ) Ferritin 52.2 Normal (applies to [facility] (Amm ir [Interpretat ng/mL non-numeric Charles ion] in results) Physician) Blood ID Date Data Source [id number] 03/27/2018 12:00:00 AM EST [facility] (Ammir Charles Physician) Name Value Range Interpretation Description Data Sup porting Code Source(s) Document(s ) T4 FREE, 1.09 Normal (applies to [facility] THYROXINE ng/dL non-numeric (Ammir results) Charles Physician) TSH,3RD 3.30 Normal (applies to [facility] GENERATION uIU/mL non-numeric (Ammir results) Charles Physician) ID Date Data Source [id number] 03/27/2018 12:00:00 AM EST [facility] (Ammir Charles Physician) Name Value Range Interpretation Description Data Sup porting Code Source(s) Document(s ) Hemoglobin A1c 5.8 % Above high normal [facility] (Ammir in Blood Charles Physician) ID Date Data Source [id number] 03/27/2018 12:00:00 AM EST [facility] (Ammir Charles Physician) Name Value Range Interpretation Description Data Sup porting Code Source(s) Document(s ) GLUCOSE 87 mg/dL Normal (applies [facility] NONFASTING,SERUM to non-numeric (Ammir results) Charles Physician) SODIUM, SERUM 138 Normal (applies [facility] mEq/L to non-numeric (Ammir results) Chalres Physician) POTASSIUM, SERUM 4.1 Normal (applies [facility] [...] NON AFR 81 Above high normal [facility] GAMBIAN mL/min/1 (Ammir .73m2 Charles Physician) EGFR AFR 98 Above high normal [facility] GAMBIAN mL/min/1 (Ammir .73m2 Charles Physician) ID Date Data Source [id number] 03/27/2018 12:00:00 AM EST [facility] (Ammir Charles [...] results) Charles Physician) ID Date Data Source [id number] 03/27/2018 12:00:00 AM EST [facility] (Ammir Charles Physician) Name Value Range Interpretation Description Data Sup porting Code Source(s) Document(s ) VITAMIN D 15.16 Below low normal [facility] (Ammir 25-HYDROXY ng/mL Charles Physician) ID Date Data Source [id number] 03/27/2018 12:00:00 AM EST [facility] (Ammir Charles Physician) Name Value Range Interpretation Description Data Sup porting Code Source(s) Document(s ) FOLATE 20.7 ng/mL Above high normal [facility] (Amm ir SERUM Charles Physician) ID Date Data Source [id number] 03/27/2018 12:00:00 AM EST [facility] (Ammir Charles Physician) Name Value Range Interpretation Description Data Sup porting Code Source(s) Document(s ) VITAMIN B12 1353 Above high normal [facility] (Am te[place] pg/mL Charles Physician) ID Date Data Source [id number] 01/25/2018 12:00:00 AM EST [facility] (Ammir Charles [...] (Ammir Charles Physician) ID Date Data Source [id number] 01/25/2018 12:00:00 AM EST [facility] (Ammir Charles Physician) Name Value Range Interpretation Description Data Sup porting Code Source(s) Document(s ) HEPATITIS BS NONREACTIVE Normal (applies [facility] AG SCREEN to non-numeric (Ammir results) Charles Physician) ID Date Data Source [id number] 01/25/2018 12:00:00 AM EST [facility] (Ammir Charles Physician) Name Value Range Interpretation Description Data Sup porting Code Source(s) Document(s ) HEPATITIS B 100.73 Normal (applies to [facility] (A mmir SURFACE AB (REACTIVE non-numeric Charles ) results) Physician) ID Date Data Source [id number] 01/25/2018 12:00:00 AM EST [facility] (Ammir Charles Physician) Name Value Range Interpretation Description Data Sup porting Code Source(s) Document(s ) MEASLES IGG 50.2 Above high normal [facility] (Am teet[place] AU/mL Charles Physician) ID Date Data Source [id number] 01/25/2018 12:00:00 AM EST [facility] (Ammir Charles Physician) Name Value Range Interpretation Code Description Data Supporting Source(s) Document(s ) MUMPS IGG 67.8 AU/mL Above high normal [facility] (Amm ir Charles Physician) ID Date Data Source [id number] 01/25/2018 12:00:00 AM EST [facility] (Ammir Charles Physician) Name Value Range Interpretation Description Data Sup porting Code Source(s) Document(s ) RUBELLA IGG 7.3 INDEX Above high normal [facility] (Am teetee AB Charles Physician) ID Date Data Source [id number] 01/25/2018 12:00:00 AM EST [facility] (Ammir Charles Physician) Name Value Range Interpretation Code Description Data Supporting Source(s) Document(s ) VARICELLA- 1377 INDEX Above high normal [facility] (Am teetee ZOSTER Charles VIRUS IGG Physician) ID Date Data Source [id number] 01/25/2018 12:00:00 AM EST [facility] (Ammir Charles Physician) Name Value Range Interpretation Description Data Sup porting Code Source(s) Document(s ) MEASLES IGG 50.2 Above high normal [facility] (Am teet[place] AU/mL Charles Physician) ID Date Data Source [id number] 01/25/2018 12:00:00 AM EST [facility] (Ammir Charles Physician) Name Value Range Interpretation Code Description Data Supporting Source(s) Document(s ) MUMPS IGG 67.8 AU/mL Above high normal [facility] (Amm ir Charles Physician) ID Date Data Source [id number] 01/25/2018 12:00:00 AM EST [facility] (Ammir Charles Physician) Name Value Range Interpretation Description Data Sup porting Code Source(s) Document(s ) RUBELLA IGG 7.3 INDEX Above high normal [facility] (Am teetee AB Charles Physician) ID Date Data Source [id number] 01/25/2018 12:00:00 AM EST [facility] (Ammir Charles Physician) Name Value Range Interpretation Code Description Data Supporting Source(s) Document(s ) VARICELLA- 1377 INDEX Above high normal [facility] (Am teetee ZOSTER Charles VIRUS IGG Physician) ID Date Data Source [id number] 01/25/2018 12:00:00 AM EST [facility] (Ammir Charles [...] (Ammir Charles Physician) ID Date Data Source [id number] 01/25/2018 12:00:00 AM EST [facility] (Ammir Charles Physician) Name Value Range Interpretation Description Data Sup porting Code Source(s) Document(s ) HEPATITIS BS NONREACTIVE Normal (applies [facility] AG SCREEN to non-numeric (Ammir results) Charles Physician) ID Date Data Source [id number] 01/25/2018 12:00:00 AM EST [facility] (Ammir Charles Physician) Name Value Range Interpretation Description Data Sup porting Code Source(s) Document(s ) HEPATITIS B 100.73 Normal (applies to [facility] (A mmir SURFACE AB (REACTIVE non-numeric Charles ) results) Physician) ID Date Data Source [id number] 01/25/2018 12:00:00 AM EST [facility] (Ammir Charles Physician) Name Value Range Interpretation Description Data Sup porting Code Source(s) Document(s ) MEASLES IGG 50.2 Above high normal [facility] (Am te[place] AU/mL Charles Physician) ID Date Data Source [id number] 01/25/2018 12:00:00 AM EST [facility] (Ammir Charles Physician) Name Value Range Interpretation Code Description Data Supporting Source(s) Document(s ) MUMPS IGG 67.8 AU/mL Above high normal [facility] (Amm ir Charles Physician) ID Date Data Source [id number] 01/25/2018 12:00:00 AM EST [facility] (Ammir Charles Physician) Name Value Range Interpretation Description Data Sup porting Code Source(s) Document(s ) RUBELLA IGG 7.3 INDEX Above high normal [facility] (Am teetee AB Charles Physician) ID Date Data Source [id number] 01/25/2018 12:00:00 AM EST [facility] (Ammir Charles Physician) Name Value Range Interpretation Code Description Data Supporting Source(s) Document(s ) VARICELLA- 1377 INDEX Above high normal [facility] (Am teetee ZOSTER Charles VIRUS IGG Physician) ID Date Data Source [id number] 01/25/2018 12:00:00 AM EST [facility] (Ammir Charles [...] (Ammir Charles Physician) ID Date Data Source [id number] 01/25/2018 12:00:00 AM EST [facility] (Ammir Charles Physician) Name Value Range Interpretation Description Data Sup porting Code Source(s) Document(s ) HEPATITIS BS NONREACTIVE Normal (applies [facility] AG SCREEN to non-numeric (Ammir results) Charles Physician) ID Date Data Source [id number] 01/25/2018 12:00:00 AM EST [facility] (Ammir Charles Physician) Name Value Range Interpretation Description Data Sup porting Code Source(s) Document(s ) HEPATITIS B 100.73 Normal (applies to [facility] (A mmir SURFACE AB (REACTIVE non-numeric Charles ) results) Physician) ID Date Data Source [id number] 01/25/2018 12:00:00 AM EST [facility] (Ammir Charles Physician) Name Value Range Interpretation Description Data Sup porting Code Source(s) Document(s ) MEASLES IGG 50.2 Above high normal [facility] (Am te[place] AU/mL Charles Physician) ID Date Data Source [id number] 01/25/2018 12:00:00 AM EST [facility] (Ammir Charles Physician) Name Value Range Interpretation Code Description Data Supporting Source(s) Document(s ) MUMPS IGG 67.8 AU/mL Above high normal [facility] (Amm ir Charles Physician) ID Date Data Source [id number] 01/25/2018 12:00:00 AM EST [facility] (Ammir Charles Physician) Name Value Range Interpretation Description Data Sup porting Code Source(s) Document(s ) RUBELLA IGG 7.3 INDEX Above high normal [facility] (Am teetee AB Charles Physician) ID Date Data Source [id number] 01/25/2018 12:00:00 AM EST [facility] (Ammir Charles Physician) Name Value Range Interpretation Code Description Data Supporting Source(s) Document(s ) VARICELLA- 1377 INDEX Above high normal [facility] (Am teetee ZOSTER Charles VIRUS IGG Physician) ID Date Data Source [id number] 01/25/2018 12:00:00 AM EST [facility] (Ammir Charles [...] (Ammir Charles Physician) ID Date Data Source [id number] 01/25/2018 12:00:00 AM EST [facility] (Ammir Charles Physician) Name Value Range Interpretation Description Data Sup porting Code Source(s) Document(s ) HEPATITIS BS NONREACTIVE Normal (applies [facility] AG SCREEN to non-numeric (Ammir results) Charles Physician) ID Date Data Source [id number] 01/25/2018 12:00:00 AM EST [facility] (Ammir Charles Physician) Name Value Range Interpretation Description Data Sup porting Code Source(s) Document(s ) HEPATITIS B 100.73 Normal (applies to [facility] (A mmir SURFACE AB (REACTIVE non-numeric Charles ) results) Physician) ID Date Data Source [id number] 01/25/2018 12:00:00 AM EST [facility] (Ammir Charles Physician) Name Value Range Interpretation Description Data Sup porting Code Source(s) Document(s ) MEASLES IGG 50.2 Above high normal [facility] (Am te[place] AU/mL Charles Physician) ID Date Data Source [id number] 01/25/2018 12:00:00 AM EST [facility] (Ammir Charles Physician) Name Value Range Interpretation Code Description Data Supporting Source(s) Document(s ) MUMPS IGG 67.8 AU/mL Above high normal [facility] (Amm ir Charles Physician) ID Date Data Source [id number] 01/25/2018 12:00:00 AM EST [facility] (Ammir Charles [...] EGFR NON AFR 95 Normal (applies [facility] GAMBIAN mL/min/1 to non-numeric (Ammir .73m2 results) Charles Physician) EGFR NON AFR 95 Normal (applies [facility] GAMBIAN mL/min/1 to non-numeric (Ammir .73m2 results) Charles Physician) EGFR AFR 114 Normal (applies [facility] GAMBIAN mL/min/1 to non-numeric (Ammir .73m2 results) Charles Physician) EGFR AFR 114 Normal (applies [facility] GAMBIAN mL/min/1 to non-numeric (Ammir .73m2 results) Charles Physician) RUBELLA IGG AB 7.3 Above high normal [facility] INDEX (Ammir Charles Physician) ID Date Data Source [id number] 01/25/2018 12:00:00 AM EST [facility] (Ammir Charles Physician) Name Value Range Interpretation Code Description Data Supporting Source(s) Document(s ) VARICELLA- 1377 INDEX Above high normal [facility] (Am teetee ZOSTER Charles VIRUS IGG Physician) ID Date Data Source [id number] 10/21/2017 12:00:00 AM EDT [facility] (Ammir Charles [...] (Ammir Charles Physician) ID Date Data Source [id number] 10/21/2017 12:00:00 AM EDT [facility] (Ammir Charles [...] (Ammir Charles Physician) ID Date Data Source [id number] 10/21/2017 12:00:00 AM EDT [facility] (Ammir Charles [...] (Ammir Charles Physician) ID Date Data Source [id number] 10/21/2017 12:00:00 AM EDT [facility] (Ammir Charles [...] (Ammir Charles Physician) ID Date Data Source [id number] 10/21/2017 12:00:00 AM EDT [facility] (Ammir Charles [...] (Ammir Charles Physician) ID Date Data Source [id number] 07/31/2017 12:00:00 AM EDT [facility] (Ammir Charles Physician) Name Value Range Interpretation Code Description Data Faiza rce(s) Supporting Document(s ) DIHYDROTES 16 Normal (applies to [facility] (Am teetee TOSTERON,L non-numeric results) Charles [facility] Physician) ID Date Data Source [id number] 07/31/2017 12:00:00 AM EDT [facility] (Ammir Charles Physician) Name Value Range Interpretation Code Description Data Faiza rce(s) Supporting Document(s ) ESTROGEN, 138.4 Normal (applies to [facility] (Amm ir TOTAL, non-numeric Charles SERUM results) Physician) ID Date Data Source [id number] 07/31/2017 12:00:00 AM EDT [facility] (Ammir Charles Physician) Name Value Range Interpretation Code Description Data Supporting Source(s) Document(s ) RADHA 0.3 Ratio Normal (applies to [facility] (Amm ir Screen(Sym non-numeric Charles phony) results) Physician) dsDNA 1.3 IU/ml Normal (applies to [facility] (Amm ir non-numeric Charles results) Physician) ID Date Data Source [id number] 07/31/2017 12:00:00 AM EDT [facility] (Ammir Charles Physician) Name Value Range Interpretation Code Description Data Faiza rce(s) Supporting Document(s ) ESR 24 mm/hr Above high normal [facility] (Ammi r Charles Physician) ID Date Data Source [id number] 07/31/2017 12:00:00 AM EDT [facility] (Ammir Charles Physician) Name Value Range Interpretation Description Data Sup porting Code Source(s) Document(s ) RHEUMATOID 5.30 Normal (applies to [facility] FACTOR IGG/IGM IU/mL non-numeric (Ammir results) Charles Physician) ID Date Data Source [id number] 07/31/2017 12:00:00 AM EDT [facility] (Ammir Charles Physician) Name Value Range Interpretation Code Description Data Faiza rce(s) Supporting Document(s ) URIC ACID 4.6 mg/dL Normal (applies to [facility] (Amm ir non-numeric Charles results) Physician) ID Date Data Source [id number] 07/31/2017 12:00:00 AM EDT [facility] (Ammir Charles Physician) Name Value Range Interpretation Code Description Data Faiza rce(s) Supporting Document(s ) SSA/Ro IgG <0.3 Normal (applies to [facility] (Am teetee non-numeric results) Charles Physician) ID Date Data Source [id number] 07/31/2017 12:00:00 AM EDT [facility] (Ammir Charles Physician) Name Value Range Interpretation Code Description Data Faiza rce(s) Supporting Document(s ) SSB/La IgG <0.3 Normal (applies to [facility] (Am teet[place] non-numeric results) Charles Physician) ID Date Data Source [id number] 07/31/2017 12:00:00 AM EDT [facility] (Ammir Charles Physician) Name Value Range Interpretation Code Description Data Supporting Source(s) Document(s ) Gordon IgG 1.6 Robert Normal (applies to [facility] (Amm ir U/mL non-numeric Charles results) Physician) RD MANAGER IgG 1.9 Robert Normal (applies to [facility] (Amm ir U/mL non-numeric Charles results) Physician) ID Date Data Source [id number] 07/31/2017 12:00:00 AM EDT [facility] (Ammir Charles Physician) Name Value Range Interpretation Description Data Sup porting Code Source(s) Document(s ) Cyclic 0.6 U/ml Normal (applies [facility] Citrullinated to non-numeric (Ammir Peptide IgG results) Charles Physician) ID Date Data Source [id number] 07/31/2017 12:00:00 AM EDT [facility] (Ammir Charles Physician) Name Value Range Interpretation Description Data Sup porting Code Source(s) Document(s ) C-REACTIVE 1.7 mg/dL Above high normal [facility] (Amm ir PROTEIN Charles (INFL) Physician) ID Date Data Source [id number] 07/31/2017 12:00:00 AM EDT [facility] (Ammir Charles Physician) Name Value Range Interpretation Code Description Data Faiza rce(s) Supporting Document(s ) DIHYDROTES 16 Normal (applies to [facility] (Am teetee TOSTERON,L non-numeric results) Charles [facility] Physician) ID Date Data Source [id number] 07/31/2017 12:00:00 AM EDT [facility] (Ammir Charles Physician) Name Value Range Interpretation Code Description Data Faiza rce(s) Supporting Document(s ) ESTROGEN, 138.4 Normal (applies to [facility] (Amm ir TOTAL, non-numeric Charles SERUM results) Physician) ID Date Data Source [id number] 07/31/2017 12:00:00 AM EDT [facility] (Ammir Charles Physician) Name Value Range Interpretation Code Description Data Supporting Source(s) Document(s ) RADHA 0.3 Ratio Normal (applies to [facility] (Amm ir Screen(Sym non-numeric Charles phony) results) Physician) dsDNA 1.3 IU/ml Normal (applies to [facility] (Amm ir non-numeric Charles results) Physician) ID Date Data Source [id number] 07/31/2017 12:00:00 AM EDT [facility] (Ammir Charles Physician) Name Value Range Interpretation Code Description Data Faiza rce(s) Supporting Document(s ) ESR 24 mm/hr Above high normal [facility] (Ammi r Charles Physician) ID Date Data Source [id number] 07/31/2017 12:00:00 AM EDT [facility] Phys[facility] Name Value Range Interpretation Description Data Sup porting Code Source(s) Document(s ) RHEUMATOID 5.30 Normal (applies to [facility] FACTOR IGG/IGM IU/mL non-numeric (Ammir results) Charles Physician) ID Date Data Source [id number] 07/31/2017 12:00:00 AM EDT [facility] Physician[facility] Name Value Range Interpretation Code Description Data Faiza rce(s) Supporting Document(s ) URIC ACID 4.6 mg/dL Normal (applies to [facility] (Amm ir non-numeric Charles results) Physician) ID Date Data Source [id number] 07/31/2017 12:00:00 AM EDT [facility] (Ammir Charles Physician) Name Value Range Interpretation Code Description Data Faiza rce(s) Supporting Document(s ) SSA/Ro IgG <0.3 Normal (applies to [facility] (Am teetee non-numeric results) Charles Physician) ID Date Data Source [id number] 07/31/2017 12:00:00 AM EDT [facility] Physician[facility] Name Value Range Interpretation Code Description Data Faiza rce(s) Supporting Document(s ) SSB/La IgG <0.3 Normal (applies to [facility] (Am teetee non-numeric results) Charles Physician) ID Date Data Source [id number] 07/31/2017 12:00:00 AM EDT [facility] (Ammir Charles Physician) Name Value Range Interpretation Code Description Data Supporting Source(s) Document(s ) Gordon IgG 1.6 Robert Normal (applies to [facility] (Amm ir U/mL non-numeric Charles results) Physician) RD MANAGER IgG 1.9 Robert Normal (applies to [facility] (Amm ir U/mL non-numeric Charles results) Physician) ID Date Data Source [id number] 07/31/2017 12:00:00 AM EDT [facility] (Ammir Charles Physician) Name Value Range Interpretation Description Data Sup porting Code Source(s) Document(s ) Cyclic 0.6 U/ml Normal (applies [facility] Citrullinated to non-numeric (Ammir Peptide IgG results) Charles Physician) ID Date Data Source [id number] 07/31/2017 12:00:00 AM EDT [facility] (Ammir Charles Physician) Name Value Range Interpretation Description Data Sup porting Code Source(s) Document(s ) C-REACTIVE 1.7 mg/dL Above high normal [facility] (Amm ir PROTEIN Charles (INFL) Physician) ID Date Data Source [id number] 07/31/2017 12:00:00 AM EDT [facility] (Ammir Charles [...] [facility] non-numeric (Ammir results) Cahrles Physician) IG% 0.20 % Normal (applies to [facility] non-numeric (Ammir results) Charles Physician) ID Date Data Source [id number] 07/31/2017 12:00:00 AM EDT [facility] (Ammir Charles [...] NON AFR 82 Above high normal [facility] GAMBIAN mL/min/1 (Ammir .73m2 Charles Physician) EGFR AFR 99 Above high normal [facility] GAMBIAN mL/min/1 (Ammir .73m2 Charles Physician) ID Date Data Source [id number] 07/31/2017 12:00:00 AM EDT [facility] (Ammir Charles Physician) Name Value Range Interpretation Code Description Data Faiza rce(s) Supporting Document(s ) LH(LUTEIN 3 mIU/mL Above high normal [facility] (Ammi r IZING Charles HORMONE) Physician) ID Date Data Source [id number] 07/31/2017 12:00:00 AM EDT [facility] (Ammir Charles Physician) Name Value Range Interpretation Code Description Data Faiza rce(s) Supporting Document(s ) BETA-hCG <2.0 Normal (applies to [facility] (Amm ir non-numeric results) Charles Physician) ID Date Data Source [id number] 07/31/2017 12:00:00 AM EDT [facility] (Ammir Charles Physician) Name Value Range Interpretation Description Data Sup porting Code Source(s) Document(s ) Progesterone 0.27 Above high normal [facility] [Mass/volume] in ng/mL (Ammir Saliva (oral Charles fluid) Physician) ID Date Data Source [id number] 07/31/2017 12:00:00 AM EDT [facility] (Ammir Charles Physician) Name Value Range Interpretation Code Description Data Faiza rce(s) Supporting Document(s ) ESTRADIOL 45 pg/mL Above high normal [facility] (Ammi r -E2 Charles Physician) ID Date Data Source [id number] 07/31/2017 12:00:00 AM EDT [facility] (Ammir Charles [...] results) Charles Physician) ID Date Data Source [id number] 07/31/2017 12:00:00 AM EDT [facility] (Ammir Charles [...] NON AFR 82 Above high normal [facility] GAMBIAN mL/min/1 (Ammir .73m2 Charles Physician) EGFR AFR 99 Above high normal [facility] GAMBIAN mL/min/1 (Ammir .73m2 Charles Physician) ID Date Data Source [id number] 07/31/2017 12:00:00 AM EDT [facility] (Ammir Charles Physician) Name Value Range Interpretation Code Description Data Faiza rce(s) Supporting Document(s ) LH(LUTEIN 3 mIU/mL Above high normal [facility] (Ammi r IZING Charles HORMONE) Physician) ID Date Data Source [id number] 07/31/2017 12:00:00 AM EDT [facility] (Ammir Charles Physician) Name Value Range Interpretation Code Description Data Faiza rce(s) Supporting Document(s ) BETA-hCG <2.0 Normal (applies to [facility] (Amm ir non-numeric results) Charles Physician) ID Date Data Source [id number] 07/31/2017 12:00:00 AM EDT [facility] (Ammir Charles Physician) Name Value Range Interpretation Description Data Sup porting Code Source(s) Document(s ) Progesterone 0.27 Above high normal [facility] [Mass/volume] in ng/mL (Ammir Saliva (oral Charles fluid) Physician) ID Date Data Source [id number] 07/31/2017 12:00:00 AM EDT [facility] (Ammir Charles Physician) Name Value Range Interpretation Code Description Data Faiza rce(s) Supporting Document(s ) ESTRADIOL 45 pg/mL Above high normal [facility] (Ammi r -E2 Charles Physician) ID Date Data Source [id number] 07/31/2017 12:00:00 AM EDT [facility] (Ammir Charles Physician) Name Value Range Interpretation Description Data Sup porting Code Source(s) Document(s ) Prolactin 5.3 ng/mL Normal (applies to [facility] (Amm ir [Mass/volume] non-numeric Charles in Serum or results) Physician) Plasma by 3rd IS ID Date Data Source [id number] 07/31/2017 12:00:00 AM EDT [facility] (Ammir Charles Physician) Name Value Range Interpretation Code Description Data Faiza rce(s) Supporting Document(s ) DHEA-SULF 48.1 ug/dl Normal (applies to [facility] (Am teetee ATE non-numeric Charles results) Physician) ID Date Data Source [id number] 07/31/2017 12:00:00 AM EDT [facility] (Ammir Charles Physician) Name Value Range Interpretation Description Data Sup porting Code Source(s) Document(s ) PTH, INTACT 68.1 pg/mL Normal (applies to [facility] ( Ammir non-numeric Charles results) Physician) ID Date Data Source [id number] 07/31/2017 12:00:00 AM EDT [facility] (Ammir Charles [...] r Charles Physician) ID Date Data Source [id number] 07/31/2017 12:00:00 AM EDT [facility] (Ammir Charles Physician) Name Value Range Interpretation Description Data Sup porting Code Source(s) Document(s ) FSH(FOLLICLE 6.6 Above high normal [facility] STIMULATING mIU/mL (Ammir HORMONE) Charles Physician) ID Date Data Source [id number] 07/31/2017 12:00:00 AM EDT [facility] (Ammir Charles [...] results) Charles Physician) ID Date Data Source [id number] 07/31/2017 12:00:00 AM EDT [facility] (Ammir Charles [...] NON AFR 82 Above high normal [facility] GAMBIAN mL/min/1 (Ammir .73m2 Charles Physician) EGFR AFR 99 Above high normal [facility] GAMBIAN mL/min/1 (Ammir .73m2 Charles Physician) ID Date Data Source [id number] 07/31/2017 12:00:00 AM EDT [facility] (Ammir Charles Physician) Name Value Range Interpretation Code Description Data Faiza rce(s) Supporting Document(s ) LH(LUTEIN 3 mIU/mL Above high normal [facility] (Ammi r IZING Charles HORMONE) Physician) ID Date Data Source [id number] 07/31/2017 12:00:00 AM EDT [facility] (Ammir Charles Physician) Name Value Range Interpretation Code Description Data Faiza rce(s) Supporting Document(s ) BETA-hCG <2.0 Normal (applies to [facility] (Amm ir non-numeric results) Charles Physician) ID Date Data Source [id number] 07/31/2017 12:00:00 AM EDT [facility] (Ammir Charles Physician) Name Value Range Interpretation Description Data Sup porting Code Source(s) Document(s ) Progesterone 0.27 Above high normal [facility] [Mass/volume] in ng/mL (Ammir Saliva (oral Charles fluid) Physician) ID Date Data Source [id number] 07/31/2017 12:00:00 AM EDT [facility] (Ammir Charles Physician) Name Value Range Interpretation Code Description Data Faiza rce(s) Supporting Document(s ) ESTRADIOL 45 pg/mL Above high normal [facility] (Ammi r -E2 Charles Physician) ID Date Data Source [id number] 07/31/2017 12:00:00 AM EDT [facility] (Ammir Charles Physician) Name Value Range Interpretation Description Data Sup porting Code Source(s) Document(s ) Prolactin 5.3 ng/mL Normal (applies to [facility] (Amm ir [Mass/volume] non-numeric Charles in Serum or results) Physician) Plasma by 3rd IS ID Date Data Source [id number] 07/31/2017 12:00:00 AM EDT [facility] (Ammir Charles Physician) Name Value Range Interpretation Code Description Data Faiza rce(s) Supporting Document(s ) DHEA-SULF 48.1 ug/dl Normal (applies to [facility] (Am teetee ATE non-numeric Charles results) Physician) ID Date Data Source [id number] 07/31/2017 12:00:00 AM EDT [facility] (Ammir Charles Physician) Name Value Range Interpretation Description Data Sup porting Code Source(s) Document(s ) PTH, INTACT 68.1 pg/mL Normal (applies to [facility] ( Ammir non-numeric Charles results) Physician) ID Date Data Source [id number] 07/31/2017 12:00:00 AM EDT [facility] Physician[facility] Name Value Range Interpretation [...] MAIZE / CORN <0.10 Normal ([facility] ( Ammir (F8) IGE non-numeric Charles results) Physician) SESAME SEED <0.10 Normal (applies to [facility] (A mmir (F10) IGE non-numeric Charles results) [...] (F40) <0.10 Normal (applies to [facility] (Am teeete IGE non-numeric Charles results) Physician) [place](F17 <0.10 Normal (applies to [facility] ( Ammir ) IGE non-numeric Charles results) Physician) CASHEW <0.10 Normal (applies to [facility] (Amm ir NUT(F202) non-numeric Charles IGE results) Physician) ALMOND <0.10 Normal (applies to [facility] (Amm ir (F20)IGE non-numeric Charles results) Physician) TOTAL IGE 133 kU/L Above high normal [facility] (Ammi r Charles Physician) ID Date Data Source [id number] 07/31/2017 12:00:00 AM EDT [facility] (Ammir Charles Physician) Name Value Range Interpretation Description Data Sup porting Code Source(s) Document(s ) FSH(FOLLICLE 6.6 Above high normal [facility] STIMULATING mIU/mL (Ammir HORMONE) Charles Physician) ID Date Data Source [id number] 07/31/2017 12:00:00 AM EDT [facility] (Ammir Charles [...] results) Charles Physician) ID Date Data Source [id number] 07/31/2017 12:00:00 AM EDT [facility] (Ammir Charles [...] results) Charles Physician) ID Date Data Source [id number] 07/31/2017 12:00:00 AM EDT [facility] (Ammir Charles Physician) Name Value Range Interpretation Code Description Data Faiza rce(s) Supporting Document(s ) DIHYDROTES 16 Normal (applies to [facility] (Am teetee TOSTERON,L non-numeric results) [facility]) ID Date Data Source [id number] 07/31/2017 12:00:00 AM EDT [facility] (Ammir Charles Physician) Name Value Range Interpretation Code Description Data Faiza rce(s) Supporting Document(s ) ESTROGEN, 138.4 Normal (applies to [facility] (Amm ir TOTAL, non-numeric Charles SERUM results) Physician) ID Date Data Source [id number] 07/31/2017 12:00:00 AM EDT [facility] (Ammir Charles Physician) Name Value Range Interpretation Code Description Data Supporting Source(s) Document(s ) RADHA 0.3 Ratio Normal (applies to [facility] (Amm ir Screen(Sym non-numeric Charles phony) results) Physician) dsDNA 1.3 IU/ml Normal (applies to [facility] (Amm ir non-numeric Charles results) Physician) ID Date Data Source [id number] 07/31/2017 12:00:00 AM EDT [facility] (Ammir Charles Physician) Name Value Range Interpretation Code Description Data Faiza rce(s) Supporting Document(s ) ESR 24 mm/hr Above high normal [facility] (Ammi r Charles Physician) ID Date Data Source [id number] 07/31/2017 12:00:00 AM EDT [facility] (Ammir Charles Physician) Name Value Range Interpretation Description Data Sup porting Code Source(s) Document(s ) RHEUMATOID 5.30 Normal (applies to [facility] FACTOR IGG/IGM IU/mL non-numeric (Ammir results) Charles Physician) ID Date Data Source [id number] 07/31/2017 12:00:00 AM EDT [facility] (Ammir Charles Physician) Name Value Range Interpretation Code Description Data Faiza rce(s) Supporting Document(s ) URIC ACID 4.6 mg/dL Normal (applies to [facility] (Amm ir non-numeric Charles results) Physician) ID Date Data Source [id number] 07/31/2017 12:00:00 AM EDT [facility] (Ammir Charles Physician) Name Value Range Interpretation Code Description Data Faiza rce(s) Supporting Document(s ) SSA/Ro IgG <0.3 Normal (applies to [facility] (Am teetee non-numeric results) Charles Physician) ID Date Data Source [id number] 07/31/2017 12:00:00 AM EDT [facility] (Ammir Charles Physician) Name Value Range Interpretation Code Description Data Faiza rce(s) Supporting Document(s ) SSB/La IgG <0.3 Normal (applies to [facility] (Am teetee non-numeric results) Charles Physician) ID Date Data Source [id number] 07/31/2017 12:00:00 AM EDT [facility] (Ammir Charles Physician) Name Value Range Interpretation Code Description Data Supporting Source(s) Document(s ) Gordon IgG 1.6 Robert Normal (applies to [facility] (Amm ir U/mL non-numeric Charles results) Physician) RD MANAGER IgG 1.9 Robert Normal (applies to [facility] (Amm ir U/mL non-numeric Charles results) Physician) ID Date Data Source [id number] 07/31/2017 12:00:00 AM EDT [facility] (Ammir Charles Physician) Name Value Range Interpretation Description Data Sup porting Code Source(s) Document(s ) C-REACTIVE 1.7 mg/dL Above high normal [facility] (Amm ir PROTEIN Charles (INFL) Physician) ID Date Data Source [id number] 07/31/2017 12:00:00 AM EDT [facility] (Ammir Charles [...] results) Charles Physician) ID Date Data Source [id number] 07/31/2017 12:00:00 AM EDT [facility] (Ammir Charles [...] mg/dL to non-numeric (Ammir results) Charles Physician) ALT (SGPT) 15 U/L Normal (applies [facility] to non-numeric (Ammir results) Charles Physician) AST 23 U/L Normal (applies [facility] to non-numeric (Ammir results) Charles Physician) EGFR NON AFR 82 Above high normal [facility] GAMBIAN mL/min/1 (Ammir .73m2 Charles Physician) EGFR AFR 99 Above high normal [facility] GAMBIAN mL/min/1 (Ammir .73m2 Charles Physician) ID Date Data Source [id number] 07/31/2017 12:00:00 AM EDT [facility] (Ammir Charles Physician) Name Value Range Interpretation Code Description Data Faiza rce(s) Supporting Document(s ) LH(LUTEIN 3 mIU/mL Above high normal [facility] (Ammi r IZING Charles HORMONE) Physician) ID Date Data Source [id number] 07/31/2017 12:00:00 AM EDT [facility] (Ammir Charles Physician) Name Value Range Interpretation Code Description Data Faiza rce(s) Supporting Document(s ) BETA-hCG <2.0 Normal (applies to [facility] (Amm ir non-numeric results) Charles Physician) ID Date Data Source [id number] 07/31/2017 12:00:00 AM EDT [facility] (Ammir Charles Physician) Name Value Range Interpretation Description Data Sup porting Code Source(s) Document(s ) Progesterone 0.27 Above high normal [facility] [Mass/volume] in ng/mL (Ammir Saliva (oral Charles fluid) Physician) ID Date Data Source [id number] 07/31/2017 12:00:00 AM EDT [facility] (Ammir Charles Physician) Name Value Range Interpretation Description Data Sup porting Code Source(s) Document(s ) PTH, INTACT 68.1 pg/mL Normal (applies to [facility] ( Ammir non-numeric Charles results) Physician) ID Date Data Source [id number] 07/31/2017 12:00:00 AM EDT [facility] (Ammir Charles [...] r Charles Physician) ID Date Data Source [id number] 07/31/2017 12:00:00 AM EDT [facility] (Ammir Charles Physician) Name Value Range Interpretation Description Data Sup porting Code Source(s) Document(s ) FSH(FOLLICLE 6.6 Above high normal [facility] STIMULATING mIU/mL (Ammir HORMONE) Charles Physician) ID Date Data Source [id number] 07/31/2017 12:00:00 AM EDT [facility] (Ammir Charles Physician) Name Value Range Interpretation Description Data Sup porting Code Source(s) Document(s ) Prolactin 5.3 ng/mL Normal (applies to [facility] (Amm ir [Mass/volume] non-numeric Charles in Serum or results) Physician) Plasma by 3rd IS ID Date Data Source [id number] 07/31/2017 12:00:00 AM EDT [facility] (Ammir Charles Physician) Name Value Range Interpretation Code Description Data Faiza rce(s) Supporting Document(s ) DHEA-SULF 48.1 ug/dl Normal (applies to [facility] (Am teetee ATE non-numeric Charles results) Physician) ID Date Data Source [id number] 07/31/2017 12:00:00 AM EDT [facility] (Ammir Charles Physician) Name Value Range Interpretation Description Data Sup porting Code Source(s) Document(s ) PTH, INTACT 68.1 pg/mL Normal (applies to [facility] ( Ammir non-numeric Charles results) Physician) ID Date Data Source [id number] 07/31/2017 12:00:00 AM EDT [facility] (Ammir Charles [...] r Charles Physician) ID Date Data Source [id number] 07/31/2017 12:00:00 AM EDT [facility] (Ammir Charles Physician) Name Value Range Interpretation Description Data Sup porting Code Source(s) Document(s ) FSH(FOLLICLE 6.6 Above high normal [facility] STIMULATING mIU/mL (Ammir HORMONE) Charles Physician) ID Date Data Source [id number] 07/31/2017 12:00:00 AM EDT [facility] (Ammir Charles [...] results) Charles Physician) ID Date Data Source [id number] 07/31/2017 12:00:00 AM EDT [facility] (Ammir Charles Physician) Name Value Range Interpretation Code Description Data Faiza rce(s) Supporting Document(s ) DIHYDROTES 16 Normal (applies to [facility] (Am teetee TOSTERON,L non-numeric results) Charles [facility] Physician) ID Date Data Source [id number] 07/31/2017 12:00:00 AM EDT [facility] (Ammir Charles Physician) Name Value Range Interpretation Code Description Data Faiza rce(s) Supporting Document(s ) ESTROGEN, 138.4 Normal (applies to [facility] (Amm ir TOTAL, non-numeric Charles SERUM results) Physician) ID Date Data Source [id number] 07/31/2017 12:00:00 AM EDT [facility] (Ammir Charles Physician) Name Value Range Interpretation Code Description Data Supporting Source(s) Document(s ) RADHA 0.3 Ratio Normal (applies to [facility] (Amm ir Screen(Sym non-numeric Charles phony) results) Physician) dsDNA 1.3 IU/ml Normal (applies to [facility] (Amm ir non-numeric Charles results) Physician) ID Date Data Source [id number] 07/31/2017 12:00:00 AM EDT [facility] (Ammir Charles Physician) Name Value Range Interpretation Code Description Data Faiza rce(s) Supporting Document(s ) ESR 24 mm/hr Above high normal [facility] (Ammi r Charles Physician) ID Date Data Source [id number] 07/31/2017 12:00:00 AM EDT [facility] (Ammir Charles Physician) Name Value Range Interpretation Description Data Sup porting Code Source(s) Document(s ) RHEUMATOID 5.30 Normal (applies to [facility] FACTOR IGG/IGM IU/mL non-numeric (Ammir results) Charles Physician) ID Date Data Source [id number] 07/31/2017 12:00:00 AM EDT [facility] (Ammir Charles Physician) Name Value Range Interpretation Code Description Data Faiza rce(s) Supporting Document(s ) URIC ACID 4.6 mg/dL Normal (applies to [facility] (Amm ir non-numeric Charles results) Physician) ID Date Data Source [id number] 07/31/2017 12:00:00 AM EDT [facility] (Ammir Charles Physician) Name Value Range Interpretation Code Description Data Faiza rce(s) Supporting Document(s ) SSA/Ro IgG <0.3 Normal (applies to [facility] (Am teetee non-numeric results) Charles Physician) ID Date Data Source [id number] 07/31/2017 12:00:00 AM EDT [facility] (Ammir Charles Physician) Name Value Range Interpretation Code Description Data Faiza rce(s) Supporting Document(s ) SSB/La IgG <0.3 Normal (applies to [facility] (Am teetee non-numeric results) Charles Physician) ID Date Data Source [id number] 07/31/2017 12:00:00 AM EDT [facility] (Ammir Charles Physician) Name Value Range Interpretation Code Description Data Supporting Source(s) Document(s ) Gordon IgG 1.6 Robert Normal (applies to [facility] (Amm ir U/mL non-numeric Charles results) Physician) RD MANAGER IgG 1.9 Robert Normal (applies to [facility] (Amm ir U/mL non-numeric Charles results) Physician) ID Date Data Source [id number] 07/31/2017 12:00:00 AM EDT [facility] (Ammir Charles Physician) Name Value Range Interpretation Description Data Sup porting Code Source(s) Document(s ) Cyclic 0.6 U/ml Normal (applies [facility] Citrullinated to non-numeric (Ammir Peptide IgG results) Charles Physician) ID Date Data Source [id number] 07/31/2017 12:00:00 AM EDT [facility] (Ammir Charles Physician) Name Value Range Interpretation Description Data Sup porting Code Source(s) Document(s ) C-REACTIVE 1.7 mg/dL Above high normal [facility] (Amm ir PROTEIN Charles (INFL) Physician) ID Date Data Source [id number] 07/31/2017 12:00:00 AM EDT [facility] (Ammir Charles [...] results) Charles Physician) ID Date Data Source [id number] 07/31/2017 12:00:00 AM EDT [facility] (Ammir Charles Physician) Name Value Range Interpretation Code Description Data Supporting Source(s) Document(s ) RADHA 0.3 Ratio Normal (applies to [facility] (Amm ir Screen(Sym non-numeric Charles phony) results) Physician) dsDNA 1.3 IU/ml Normal (applies to [facility] (Amm ir non-numeric Charles results) Physician) ID Date Data Source [id number] 07/31/2017 12:00:00 AM EDT [facility] Charles Phys[facility] Name Value Range Interpretation Code Description Data Faiza rce(s) Supporting Document(s ) ESR 24 mm/hr Above high normal [facility] (Ammi r Charles Physician) ID Date Data Source [id number] 07/31/2017 12:00:00 AM EDT [facility] (Ammir Charles Physician) Name Value Range Interpretation Description Data Sup porting Code Source(s) Document(s ) RHEUMATOID 5.30 Normal (applies to [facility] FACTOR IGG/IGM IU/mL non-numeric (Ammir results) Charles Physician) ID Date Data Source [id number] 07/31/2017 12:00:00 AM EDT [facility] Charles Physician[facility] Name Value Range Interpretation Code Description Data Faiza rce(s) Supporting Document(s ) URIC ACID 4.6 mg/dL Normal (applies to [facility] (Amm ir non-numeric Charles results) Physician) ID Date Data Source [id number] 07/31/2017 12:00:00 AM EDT [facility] (Ammir Charles Physician) Name Value Range Interpretation Code Description Data Faiza rce(s) Supporting Document(s ) SSA/Ro IgG <0.3 Normal (applies to [facility] (Am teetee non-numeric results) Charles Physician) ID Date Data Source [id number] 07/31/2017 12:00:00 AM EDT [facility] (Ammir Charles Physician) Name Value Range Interpretation Code Description Data Faiza rce(s) Supporting Document(s ) SSB/La IgG <0.3 Normal (applies to [facility] (Am teetee non-numeric results) Charles Physician) ID Date Data Source [id number] 07/31/2017 12:00:00 AM EDT [facility] (Ammir Charles Physician) Name Value Range Interpretation Code Description Data Supporting Source(s) Document(s ) Gordon IgG 1.6 Robert Normal (applies to [facility] (Amm ir U/mL non-numeric Charles results) Physician) RD MANAGER IgG 1.9 Robert Normal (applies to [facility] (Amm ir U/mL non-numeric Charles results) Physician) ID Date Data Source [id number] 07/31/2017 12:00:00 AM EDT [facility] (Ammir Charles Physician) Name Value Range Interpretation Description Data Sup porting Code Source(s) Document(s ) Cyclic 0.6 U/ml Normal (applies [facility] Citrullinated to non-numeric (Ammir Peptide IgG results) Charles Physician) ID Date Data Source [id number] 07/31/2017 12:00:00 AM EDT [facility] (Ammir Charles Physician) Name Value Range Interpretation Description Data Sup porting Code Source(s) Document(s ) C-REACTIVE 1.7 mg/dL Above high normal [facility] (Amm ir PROTEIN Charles (INFL) Physician) ID Date Data Source [id number] 07/31/2017 12:00:00 AM EDT [facility] (Ammir Charles [...] results) Charles Physician) ID Date Data Source [id number] 07/31/2017 12:00:00 AM EDT [facility] (Ammir Charles [...] (applies [facility] NITROGEN to non-numeric (Ammir results) [facility] Physician) CREATININE, 0.80 Normal (applies [facility] SERUM mg/dL to non-numeric (Ammir results) Charles Physician) CALCIUM, SERUM 8.8 Normal (applies [facility] mg/dL to non-numeric (Ammir results) [facility] Physician) TOTAL PROTEIN 6.9 g/dL Normal (applies [facility] to non-numeric (Ammir results) [facility] Physician) Microalbumin 3.7 g/dL Normal (applies [facility] [Mass/time] in to non-numeric (Ammir Urine collected results) Charles for unspecified Physician) duration Globulin 3.2 gldl Normal (applies [facility] [Mass/time] in to non-numeric (Ammir 24 hour Urine results) [facility] Physician) A/G RATIO 1.16 Normal (applies [facility] g/dl to non-numeric (Ammir results) [facility] Physician) BILIRUBIN, TOTAL 0.3 Normal (applies [facility] mg/dL to non-numeric (Ammir results) [facility] Physician) ALKALINE 64 U/L Normal (applies [facility] PHOSPHATASE, ALP to non-numeric (Ammir results) [facility] Physician) ALT (SGPT) 15 U/L Normal (applies [facility] to non-numeric (Ammir results) [facility] Physician) AST 23 U/L Normal (applies [facility] to non-numeric (Ammir results) [facility] Physician) EGFR NON AFR 82 Above high normal [facility] GAMBIAN mL/min/1 (Ammir .73m2 Charles Physician) EGFR AFR 99 Above high normal [facility] GAMBIAN mL/min/1 (Ammir .73m2 Charles Physician) ID Date Data Source [id number] 07/31/2017 12:00:00 AM EDT [facility] (Ammir Charles Physician) Name Value Range Interpretation Code Description Data Faiza rce(s) Supporting Document(s ) DIHYDROTES 16 Normal (applies to [facility] (Am teetee TOSTERON,L non-numeric results) Charles [facility] Physician) ID Date Data Source [id number] 07/31/2017 12:00:00 AM EDT [facility] (Ammir Charles Physician) Name Value Range Interpretation Code Description Data Faiza rce(s) Supporting Document(s ) ESTROGEN, 138.4 Normal (applies to [facility] (Amm ir TOTAL, non-numeric Charles SERUM results) Physician) ID Date Data Source [id number] 07/31/2017 12:00:00 AM EDT [facility] (Ammir Charles [...] high [facility] mg/dL normal (Ammir Charles Physician) LH(LUTEINIZING 3 mIU/mL Above high [facility] HORMONE) normal (Ammir Charles Physician) ID Date Data Source [id number] 07/31/2017 12:00:00 AM EDT [facility] (Ammir Charles Physician) Name Value Range Interpretation Code Description Data Faiza rce(s) Supporting Document(s ) BETA-hCG <2.0 Normal (applies to [facility] (Amm ir non-numeric results) Charles Physician) ID Date Data Source [id number] 07/31/2017 12:00:00 AM EDT [facility] (Ammir Charles Physician) Name Value Range Interpretation Description Data Sup porting Code Source(s) Document(s ) Progesterone 0.27 Above high normal [facility] [Mass/volume] in ng/mL (Ammir Saliva (oral Charles fluid) Physician) ID Date Data Source [id number] 07/31/2017 12:00:00 AM EDT [facility] (Ammir Charles Physician) Name Value Range Interpretation Code Description Data Faiza rce(s) Supporting Document(s ) ESTRADIOL 45 pg/mL Above high normal [facility] (Ammi r -E2 Charles Physician) ID Date Data Source [id number] 07/31/2017 12:00:00 AM EDT [facility] (Ammir Charles Physician) Name Value Range Interpretation Description Data Sup porting Code Source(s) Document(s ) Prolactin 5.3 ng/mL Normal (applies to [facility] (Amm ir [Mass/volume] non-numeric Charles in Serum or results) Physician) Plasma by 3rd IS ID Date Data Source [id number] 07/31/2017 12:00:00 AM EDT [facility] (Ammir Charles Physician) Name Value Range Interpretation Code Description Data Faiza rce(s) Supporting Document(s ) DHEA-SULF 48.1 ug/dl Normal (applies to [facility] (Am teetee ATE non-numeric [place] results) Physician) ID Date Data Source [id number] 07/31/2017 12:00:00 AM EDT [facility] (Ammir Charles Physician) Name Value Range Interpretation Description Data Sup porting Code Source(s) Document(s ) PTH, INTACT 68.1 pg/mL Normal (applies to [facility] ( Ammir non-numeric Charles results) Physician) ID Date Data Source [id number] 07/31/2017 12:00:00 AM EDT [facility] (Ammir Charles Physician) Name Value Range Interpretation Description Data Sup porting Code Source(s) Document(s ) EGG WHITE 0.12 kU/L Above high normal [facility] (Ammi r (F1) IGE Charles Physician) MILK (F2) 0.16 kU/L Above high normal [facility] (Ammi r [facility] Hcarles Physician) CODFISH (F3) <0.10 Normal (applies to [...] r Charles Physician) ID Date Data Source [id number] 07/31/2017 12:00:00 AM EDT [facility] (Ammir Charles Physician) Name Value Range Interpretation Description Data Sup porting Code Source(s) Document(s ) FSH(FOLLICLE 6.6 Above high normal [facility] STIMULATING mIU/mL (Ammir HORMONE) Charles Physician) ID Date Data Source [id number] 07/31/2017 12:00:00 AM EDT [facility] (Ammir Charles [...] results) Charles Physician) ID Date Data Source [id number] 07/10/2017 12:00:00 AM EDT [facility] (Ammir Charles [...] results) Charles Physician) ID Date Data Source [id number] 07/10/2017 12:00:00 AM EDT [facility] (Ammir Charles [...] results) Charles Physician) ID Date Data Source [id number] 07/10/2017 12:00:00 AM EDT [facility] (Ammir Charles [...] results) Charles Physician) ID Date Data Source [id number] 07/10/2017 12:00:00 AM EDT [facility] (Ammir Charles [...] results) Charles Physician) ID Date Data Source [id number] 07/10/2017 12:00:00 AM EDT [facility] (Ammir Charles [...] [Pure volume non-numeric (Ammir fraction] of results) [facility] Blood by Physician) Automated count MCV 81.6 [...] results) Charles Physician) ID Date Data Source [id number] 03/23/2017 12:00:00 AM EST [facility] (Ammir Charles Physician) Name Value Range Interpretation Description Data Sup porting Code Source(s) Document(s ) VITAMIN D 52.2 Normal (applies to [facility] (Amm ir 1.25 pg/mL non-numeric Charles results) Physician) ID Date Data Source [id number] 03/23/2017 12:00:00 AM EST [facility] (Ammir Charles Physician) Name Value Range Interpretation Description Data Sup porting Code Source(s) Document(s ) FOLATE SERUM 10 ng/mL Above high normal [facility] (A mmir Charles Physician) VITAMIN B12 815 pg/mL Normal (applies to [facility] (A mmir non-numeric Charles results) Physician) ID Date Data Source [id number] 03/23/2017 12:00:00 AM EST [facility] (Ammir Charles [...] (Ammir Charles Physician) ID Date Data Source [id number] 03/23/2017 12:00:00 AM EST [facility] (Ammir Charles [...] results) Charles Physician) ID Date Data Source [id number] 03/23/2017 12:00:00 AM EST [facility] (Ammir Charles Physician) Name Value Range Interpretation Description Data Sup porting Code Source(s) Document(s ) Ferritin 11.1 Normal (applies to [facility] (Amm ir [Interpretat ng/mL non-numeric Charles ion] in results) Physician) Blood ID Date Data Source [id number] 03/23/2017 12:00:00 AM EST [facility] (Ammir Charles Physician) Name Value Range Interpretation Description Data Sup porting Code Source(s) Document(s ) T4 FREE, 1.27 Normal (applies to [facility] THYROXINE ng/dL non-numeric (Ammir results) Charles Physician) TSH,3RD 1.71 Normal (applies to [facility] GENERATION uIU/mL non-numeric (Ammir results) Charles Physician) ID Date Data Source [id number] 03/23/2017 12:00:00 AM EST [facility] (Ammir Charles [...] NON AFR 82 Above high normal [facility] GAMBIAN mL/min/1 (Ammir .73m2 Charles Physician) EGFR AFR 99 Above high normal [facility] GAMBIAN mL/min/1 (Ammir .73m2 Charles Physician) ID Date Data Source [id number] 03/23/2017 12:00:00 AM EST [facility] (Ammir Charles [...] results) Charles Physician) ID Date Data Source [id number] 03/23/2017 12:00:00 AM EST [facility] (Ammir Charles Physician) Name Value Range Interpretation Description Data Sup porting Code Source(s) Document(s ) VITAMIN D 52.2 Normal (applies to [facility] (Amm ir 1.25 pg/mL non-numeric Charles results) Physician) ID Date Data Source [id number] 03/23/2017 12:00:00 AM EST [facility] (Ammir Charles Physician) Name Value Range Interpretation Description Data Sup porting Code Source(s) Document(s ) FOLATE SERUM 10 ng/mL Above high normal [facility] (A mmir Charles Physician) VITAMIN B12 815 pg/mL Normal (applies to [facility] (A mmir non-numeric Charles results) Physician) ID Date Data Source [id number] 03/23/2017 12:00:00 AM EST [facility] (Ammir Charles [...] (Ammir Charles Physician) ID Date Data Source [id number] 03/23/2017 12:00:00 AM EST [facility] (Ammir Charles [...] results) Charles Physician) ID Date Data Source [id number] 03/23/2017 12:00:00 AM EST [facility] (Ammir Charles Physician) Name Value Range Interpretation Description Data Sup porting Code Source(s) Document(s ) VITAMIN D 52.2 Normal (applies to [facility] (Amm ir 1.25 pg/mL non-numeric Charles results) Physician) ID Date Data Source [id number] 03/23/2017 12:00:00 AM EST [facility] (Ammir Charles Physician) Name Value Range Interpretation Description Data Sup porting Code Source(s) Document(s ) FOLATE SERUM 10 ng/mL Above high normal [facility] (A mmir Charles Physician) VITAMIN B12 815 pg/mL Normal (applies to [facility] (A mmir non-numeric Charles results) Physician) ID Date Data Source [id number] 03/23/2017 12:00:00 AM EST [facility] (Ammir Charles [...] (Ammir Charles Physician) ID Date Data Source [id number] 03/23/2017 12:00:00 AM EST [facility] (Ammir Charles Physician) Name Value Range Interpretation Description Data Sup porting Code Source(s) Document(s ) Ferritin 11.1 Normal (applies to [facility] (Amm ir [Interpretat ng/mL non-numeric Charles ion] in results) Physician) Blood ID Date Data Source [id number] 03/23/2017 12:00:00 AM EST [facility] (Ammir Charles Physician) Name Value Range Interpretation Description Data Sup porting Code Source(s) Document(s ) T4 FREE, 1.27 Normal (applies to [facility] THYROXINE ng/dL non-numeric (Ammir results) Charles Physician) TSH,3RD 1.71 Normal (applies to [facility] GENERATION uIU/mL non-numeric (Ammir results) Charles Physician) ID Date Data Source [id number] 03/23/2017 12:00:00 AM EST [facility] (Ammir Charles [...] NON AFR 82 Above high normal [facility] GAMBIAN mL/min/1 (Ammir .73m2 Charles Physician) EGFR AFR 99 Above high normal [facility] GAMBIAN mL/min/1 (Ammir .73m2 Charles Physician) ID Date Data Source [id number] 03/23/2017 12:00:00 AM EST [facility] (Ammir Charles [...] 59 mg/dL Above high normal [facility] (Ammir Chalres Physician) VLDL CALCULATION 10.4 Normal (applies [facility] mg/dl to non-numeric (Ammir results) Charles Physician) TRIGLYCERIDES 52 mg/dL Normal (applies [facility] to non-numeric (Ammir results) Charles Physician) ID Date Data Source [id number] 03/23/2017 12:00:00 AM EST [facility] (Ammir Charles Physician) Name Value Range Interpretation Description Data Sup porting Code Source(s) Document(s ) VITAMIN D 52.2 Normal (applies to [facility] (Amm ir 1.25 pg/mL non-numeric Charles results) Physician) ID Date Data Source [id number] 03/23/2017 12:00:00 AM EST [facility] (Ammir Charles Physician) Name Value Range Interpretation Description Data Sup porting Code Source(s) Document(s ) FOLATE SERUM 10 ng/mL Above high normal [facility] (A mmir Charles Physician) VITAMIN B12 815 pg/mL Normal (applies to [facility] (A mmir non-numeric Charles results) Physician) ID Date Data Source [id number] 03/23/2017 12:00:00 AM EST [facility] (Ammir Charles [...] (Ammir Charles Physician) ID Date Data Source [id number] 03/23/2017 12:00:00 AM EST [facility] (Ammir Charles [...] results) Charles Physician) ID Date Data Source [id number] 03/23/2017 12:00:00 AM EST [facility] (Ammir Charles Physician) Name Value Range Interpretation Description Data Sup porting Code Source(s) Document(s ) Ferritin 11.1 Normal (applies to [facility] (Amm ir [Interpretat ng/mL non-numeric Charles ion] in results) Physician) Blood ID Date Data Source [id number] 03/23/2017 12:00:00 AM EST [facility] (Ammir Charles Physician) Name Value Range Interpretation Description Data Sup porting Code Source(s) Document(s ) T4 FREE, 1.27 Normal (applies to [facility] THYROXINE ng/dL non-numeric (Ammir results) Charles Physician) TSH,3RD 1.71 Normal (applies to [facility] GENERATION uIU/mL non-numeric (Ammir results) Charles Physician) ID Date Data Source [id number] 03/23/2017 12:00:00 AM EST [facility] (Ammir Charles [...] NON AFR 82 Above high normal [facility] GAMBIAN mL/min/1 (Ammir .73m2 Charles Physician) EGFR AFR 99 Above high normal [facility] GAMBIAN mL/min/1 (Ammir .73m2 Charles Physician) ID Date Data Source [id number] 03/23/2017 12:00:00 AM EST [facility] (Ammir Charles [...] results) Charles Physician) ID Date Data Source [id number] 03/23/2017 12:00:00 AM EST [facility] (Ammir Charles Physician) Name Value Range Interpretation Description Data Sup porting Code Source(s) Document(s ) Ferritin 11.1 Normal (applies to [facility] (Amm ir [Interpretat ng/mL non-numeric Charles ion] in results) Physician) Blood ID Date Data Source [id number] 03/23/2017 12:00:00 AM EST [facility] (Ammir Charles Physician) Name Value Range Interpretation Description Data Sup porting Code Source(s) Document(s ) T4 FREE, 1.27 Normal (applies to [facility] THYROXINE ng/dL non-numeric (Ammir results) Charles Physician) TSH,3RD 1.71 Normal (applies to [facility] GENERATION uIU/mL non-numeric (Ammir results) Charles Physician) ID Date Data Source [id number] 03/23/2017 12:00:00 AM EST [facility] (Ammir Charles [...] NON AFR 82 Above high normal [facility] GAMBIAN mL/min/1 (Ammir .73m2 Charles Physician) EGFR AFR 99 Above high normal [facility] GAMBIAN mL/min/1 (Ammir .73m2 Charles Physician) ID Date Data Source [id number] 03/23/2017 12:00:00 AM EST [facility] (Ammir Charles [...] results) Charles Physician) ID Date Data Source [id number] 03/23/2017 12:00:00 AM EST [facility] (Ammir Charles [...] results) Charles Physician) ID Date Data Source [id number] 03/23/2017 12:00:00 AM EST [facility] (Ammir Charles Physician) Name Value Range Interpretation Description Data Sup porting Code Source(s) Document(s ) VITAMIN D 52.2 Normal (applies to [facility] (Amm ir 1.25 pg/mL non-numeric Charles results) Physician) ID Date Data Source [id number] 03/23/2017 12:00:00 AM EST [facility] (Ammir Charles Physician) Name Value Range Interpretation Description Data Sup porting Code Source(s) Document(s ) FOLATE SERUM 10 ng/mL Above high normal [facility] (A mmir Charles Physician) VITAMIN B12 815 pg/mL Normal (applies to [facility] (A mmir non-numeric Charles results) Physician) ID Date Data Source [id number] 03/23/2017 12:00:00 AM EST [facility] (Ammir Charles Physician) Name Value Range Interpretation Description Data Sup porting Code Source(s) Document(s ) IRON, TOTAL 22 ug/dL Below low normal [facility] (Ammir Charles Physician) Transferrin 310 mg/dL Normal (applies [facility] [Mass/time] in to non-numeric (Ammir 24 hour Urine results) Charlse Physician) TIBC 434.7 Normal (applies [facility] ug/dL to non-numeric (Ammir results) Charles Physician) UIBC 412.7 Above high normal [facility] ug/dL (Ammir Charles Physician) %SATURATION 5.1 % Below low normal [facility] (Ammir Charles Physician) ID Date Data Source [id number] 03/23/2017 12:00:00 AM EST [facility] (Ammir Charles [...] results) Charles Physician) ID Date Data Source [id number] 03/23/2017 12:00:00 AM EST [facility] (Ammir Charles Physician) Name Value Range Interpretation Description Data Sup porting Code Source(s) Document(s ) Ferritin 11.1 Normal (applies to [facility] (Amm ir [Interpretat ng/mL non-numeric Charles ion] in results) Physician) Blood ID Date Data Source [id number] 03/23/2017 12:00:00 AM EST [facility] (Ammir Charles Physician) Name Value Range Interpretation Description Data Sup porting Code Source(s) Document(s ) T4 FREE, 1.27 Normal (applies to [facility] THYROXINE ng/dL non-numeric (Ammir results) Charles Physician) TSH,3RD 1.71 Normal (applies to [facility] GENERATION uIU/mL non-numeric (Ammir results) Charles Physician) ID Date Data Source [id number] 03/23/2017 12:00:00 AM EST [facility] (Ammir Charles [...] NON AFR 82 Above high normal [facility] GAMBIAN mL/min/1 (Ammir .73m2 Charles Physician) EGFR AFR 99 Above high normal [facility] GAMBIAN mL/min/1 (Ammir .73m2 Charles Physician) ID Date Data Source [id number] 12/27/2016 12:00:00 AM EDT [facility] (Ammir Charles Physician) Name Value Range Interpretation Code Description Data Faiza rce(s) Supporting Document(s ) MAGNESIUM, 2 mg/dL Normal (applies to [facility] (Am teetee SERUM non-numeric Charles results) Physician) ID Date Data Source [id number] 12/27/2016 12:00:00 AM EDT [facility] (Ammir Charles Physician) Name Value Range Interpretation Description Data Sup porting Code Source(s) Document(s ) PHOSPHATE 3.7 mg/dL Normal (applies to [facility] (Amm ir (PHOSPHORUS) non-numeric Charles results) Physician) ID Date Data Source [id number] 12/27/2016 12:00:00 AM EDT [facility] (Ammir Charles Physician) Name Value Range Interpretation Description Data Sup porting Code Source(s) Document(s ) GLUCOSE 91 mg/dL Normal (applies to [facility] (Amm ir NONFASTING,S non-numeric Charles NANY results) Physician) SODIUM, 139 mEq/L Normal (applies to [facility] (Amm ir SERUM non-numeric Charles results) Physician) POTASSIUM, 4.5 mEq/L Normal (applies to [facility] (Am teetee SERUM non-numeric Charles results) Physician) CHLORIDE, 106 mEq/L Normal (applies to [facility] (Amm ir SERUM non-numeric Charles results) Physician) Carbon 26 mEq/L Normal (applies to [facility] (Amm ir dioxide non-numeric Charles [VFr/PPres] results) [...] (applies to [facility] (Amm ir SERUM non-numeric Charlse results) Physician) EGFR NON AFR 82 Above high normal [facility] (A mmir GAMBIAN mL/min/1. Charles 73m2 Physician) EGFR AFR 99 Above high normal [facility] (Ammi r GAMBIAN mL/min/1. Charles 73m2 Physician) ID Date Data Source [id number] 12/27/2016 12:00:00 AM EDT [facility] (Ammir Charles [...] (Ammir Charles Physician) ID Date Data Source [id number] 12/27/2016 12:00:00 AM EDT [facility] (Ammir Charles [...] results) Charles Physician) ID Date Data Source [id number] 12/27/2016 12:00:00 AM EDT [facility] (Ammir Charles Physician) Name Value Range Interpretation Description Data Sup porting Code Source(s) Document(s ) Ferritin 7.3 ng/mL Below low normal [facility] (Ammir [Interpretat Charles ion] in Physician) Blood ID Date Data Source [id number] 12/27/2016 12:00:00 AM EDT [facility] Charles Physician[facility] Name Value Range Interpretation Description Data Sup porting Code Source(s) Document(s ) Ferritin 7.3 ng/mL Below low normal [facility] (Ammir [Interpretat Charles ion] in Physician) Blood ID Date Data Source [id number] 12/27/2016 12:00:00 AM EDT [facility] (Ammir Charles Physician) Name Value Range Interpretation Description Data Sup porting Code Source(s) Document(s ) GLUCOSE 91 mg/dL Normal (applies to [facility] (Amm ir NONFASTING,S non-numeric Charles NANY results) Physician) SODIUM, 139 mEq/L Normal [facility] ([facility]mm [facility] SERUM non-numeric Charles results) Physician) POTASSIUM, 4.5 mEq/L [facility] (Am teetee SERUM non-numeric Charles results) Physician) CHLORIDE, 106 mEq/L Normal (applies to [facility] (Amm ir SERUM non-numeric Charles results) Physician) Carbon 26 mEq/L Normal (applies to [facility] (Amm ir dioxide non-numeric Charles [VFr/PPres] results) Physician) in Gas delivery system Anion gap in 11.5 Normal (applies to [facility] ( Ammir Body fluid mEq/L non-numeric Charles results) Physician) BLOOD UREA 12 mg/dL Normal (applies to [facility] (Am teetee NITROGEN non-numeric Charles results) Physician) CREATININE, 0.80 Normal (applies to [facility] (A mmir SERUM mg/dL non-numeric Charles results) Physician) CALCIUM, 9.6 mg/dL Normal (applies to [facility] (Amm ir SERUM non-numeric Charles results) Physician) EGFR NON AFR 82 Above high normal [facility] (A mmir GAMBIAN mL/min/1. Charles 73m2 Physician) EGFR AFR 99 Above high normal [facility] (Ammi r GAMBIAN mL/min/1. Charles 73m2 Physician) ID Date Data Source [id number] 12/27/2016 12:00:00 AM EDT [facility] (Ammir Charles Physician) Name Value Range Interpretation Code Description Data Faiza rce(s) Supporting Document(s ) MAGNESIUM, 2 mg/dL Normal (applies to [facility] (Am teetee SERUM non-numeric Charles results) Physician) ID Date Data Source [id number] 12/27/2016 12:00:00 AM EDT [facility] (Ammir Charles Physician) Name Value Range Interpretation Description Data Sup porting Code Source(s) Document(s ) PHOSPHATE 3.7 mg/dL Normal (applies to [facility] (Amm ir (PHOSPHORUS) non-numeric Charles results) Physician) ID Date Data Source [id number] 12/27/2016 12:00:00 AM EDT [facility] (Ammir Charles [...] (Ammir Charles Physician) ID Date Data Source [id number] 12/27/2016 12:00:00 AM EDT [facility] (Ammir Charles [...] results) Charles Physician) ID Date Data Source [id number] 12/27/2016 12:00:00 AM EDT [facility] (Ammir Charles Physician) Name Value Range Interpretation Description Data Sup porting Code Source(s) Document(s ) Ferritin 7.3 ng/mL Below low normal [facility] (Ammir [Interpretat Charles ion] in Physician) Blood ID Date Data Source [id number] 12/27/2016 12:00:00 AM EDT [facility] (Ammir Charles Physician) Name Value Range Interpretation Code Description Data Faiza rce(s) Supporting Document(s ) MAGNESIUM, 2 mg/dL Normal (applies to [facility] (Am teetee SERUM non-numeric Charles results) Physician) ID Date Data Source [id number] 12/27/2016 12:00:00 AM EDT [facility] (Ammir Charles Physician) Name Value Range Interpretation Description Data Sup porting Code Source(s) Document(s ) PHOSPHATE 3.7 mg/dL Normal (applies to [facility] (Amm ir (PHOSPHORUS) non-numeric Charles results) Physician) ID Date Data Source [id number] 12/27/2016 12:00:00 AM EDT [facility] (Ammir Charles [...] (Ammir Charles Physician) ID Date Data Source [id number] 12/27/2016 12:00:00 AM EDT [facility] (Ammir Charles [...] results) Charles Physician) ID Date Data Source [id number] 12/27/2016 12:00:00 AM EDT [facility] (Ammir Charles Physician) Name Value Range Interpretation Description Data Sup porting Code Source(s) Document(s ) Ferritin 7.3 ng/mL Below low normal [facility] (Ammir [Interpretat Charles ion] in Physician) Blood ID Date Data Source [id number] 12/27/2016 12:00:00 AM EDT [facility] Charles Physician[facility] Name Value Range Interpretation Description Data Sup porting Code Source(s) Document(s ) GLUCOSE 91 mg/dL Normal (applies to [facility] (Amm ir NONFASTING,S non-numeric Charles NANY results) Physician) SODIUM, 139 mEq/L Normal [facility] (Amm ir SERUM non-numeric Charles results) Physician) POTASSIUM, 4.5 mEq/L Normal (applies to [facility] (Am teetee SERUM non-numeric Charles results) Physician) CHLORIDE, 106 mEq/L Normal (applies to [facility] (Amm ir SERUM non-numeric Charles results) Physician) Carbon 26 mEq/L Normal (applies to [facility] (Amm ir dioxide non-numeric Charles [VFr/PPres] results) Physician) in Gas delivery system Anion gap in 11.5 Normal (applies to [facility] ( Ammir Body fluid mEq/L non-numeric Charles results) Physician) BLOOD UREA 12 mg/dL Normal (applies to [facility] (Am teetee NITROGEN non-numeric Charles results) Physician) CREATININE, 0.80 Normal [facility] (A [facility]ir SERUM mg/dL non-numeric Charles results) Physician) CALCIUM, 9.6 mg/dL Normal (applies to [facility] (Amm ir SERUM non-numeric Charles results) Physician) EGFR NON AFR 82 Above high normal [facility] (A mmir GAMBIAN mL/min/1. Charles 73m2 Physician) EGFR AFR 99 Above high normal [facility] (Ammi r GAMBIAN mL/min/1. Charles 73m2 Physician) ID Date Data Source [id number] 12/27/2016 12:00:00 AM EDT [facility] (Ammir Charles Physician) Name Value Range Interpretation Code Description Data Faiza rce(s) Supporting Document(s ) MAGNESIUM, 2 mg/dL Normal (applies to [facility] (Am teetee SERUM non-numeric Charles results) Physician) ID Date Data Source [id number] 12/27/2016 12:00:00 AM EDT [facility] (Ammir Charles Physician) Name Value Range Interpretation Description Data Sup porting Code Source(s) Document(s ) PHOSPHATE 3.7 mg/dL Normal (applies to [facility] (Amm ir (PHOSPHORUS) non-numeric Charles results) Physician) ID Date Data Source [id number] 12/27/2016 12:00:00 AM EDT [facility] (Ammir Charles [...] (Ammir Charles Physician) ID Date Data Source [id number] 12/27/2016 12:00:00 AM EDT [facility] (Ammir Charles [...] results) Charles Physician) ID Date Data Source [id number] 12/27/2016 12:00:00 AM EDT [facility] (Ammir Charles [...] (Ammir Charles Physician) ID Date Data Source [id number] 12/27/2016 12:00:00 AM EDT [facility] (Ammir Charles [...] results) Charles Physician) ID Date Data Source [id number] 12/27/2016 12:00:00 AM EDT [facility] (Ammir Charles Physician) Name Value Range Interpretation Description Data Sup porting Code Source(s) Document(s ) Ferritin 7.3 ng/mL Below low normal [facility] (Ammir [Interpretat Charles ion] in Physician) Blood ID Date Data Source [id number] 12/27/2016 12:00:00 AM EDT [facility] (Ammir Charles Physician) Name Value Range Interpretation Description Data Sup porting Code Source(s) Document(s ) GLUCOSE 91 mg/dL Normal (applies to [facility] (Amm ir NONFASTING,S non-numeric Charles NANY results) Physician) SODIUM, 139 mEq/L Normal (applies to [facility] (Amm ir SERUM non-numeric Charles results) Physician) POTASSIUM, 4.5 mEq/L Normal (applies to [facility] (Am teetee SERUM non-numeric Charles results) Physician) CHLORIDE, 106 mEq/L Normal (applies to [facility] (Amm ir SERUM non-numeric Charles results) Physician) Carbon 26 mEq/L Normal (applies to [facility] (Amm ir dioxide non-numeric Charles [VFr/PPres] results) Physician) in Gas delivery system Anion gap in 11.5 Normal (applies to [facility] ( Ammir Body fluid mEq/L non-numeric Charles results) Physician) BLOOD UREA 12 mg/dL Normal (applies to [facility] (Am teetee NITROGEN non-numeric Charles results) Physician) CREATININE, 0.80 Normal (applies to [facility] (A mmir SERUM mg/dL non-numeric Charles results) Physician) CALCIUM, 9.6 mg/dL Normal (applies to [facility] (Amm ir SERUM non-numeric Charles results) Physician) EGFR NON AFR 82 Above high normal [facility] (A mmir GAMBIAN mL/min/1. Charles 73m2 Physician) EGFR AFR 99 Above high normal [facility] (Ammi r GAMBIAN mL/min/1. Charles 73m2 Physician) ID Date Data Source [id number] 12/27/2016 12:00:00 AM EDT [facility] (Ammir Charles Physician) Name Value Range Interpretation Code Description Data Faiza rce(s) Supporting Document(s ) MAGNESIUM, 2 mg/dL Normal (applies to [facility] (Am teetee SERUM non-numeric Charles results) Physician) ID Date Data Source [id number] 12/27/2016 12:00:00 AM EDT [facility] (Ammir Charles Physician) Name Value Range Interpretation Description Data Sup porting Code Source(s) Document(s ) PHOSPHATE 3.7 mg/dL Normal (applies to [facility] (Amm ir (PHOSPHORUS) non-numeric Charles results) Physician) ID Date Data Source [id number] 12/01/2016 12:00:00 AM EDT [facility] (Ammir Charles Physician) Name Value Range Interpretation Description Data Sup porting Code Source(s) Document(s ) GLUCOSE 91 mg/dL Normal (applies to [facility] (Amm ir NONFASTING,S non-numeric Charles NANY results) Physician) SODIUM, 138 mEq/L Normal (applies to [facility] (Amm ir SERUM non-numeric Charles results) Physician) POTASSIUM, 4.2 mEq/L Normal (applies to [facility] (Am teetee SERUM non-numeric Charles results) Physician) CHLORIDE, 108 mEq/L Normal (applies to [facility] (Amm ir SERUM non-numeric Charles results) Physician) Carbon 23 mEq/L Normal (applies to [facility] (Amm ir dioxide non-numeric Charles [VFr/PPres] results) Physician) in Gas delivery system Anion gap in 11.2 Normal (applies to [facility] ( Ammir Body fluid mEq/L non-numeric Charles results) Physician) BLOOD UREA 11 mg/dL Normal (applies to [facility] (Am teetee NITROGEN non-numeric Charles results) Physician) CREATININE, 0.80 Normal (applies to [facility] (A mmir SERUM mg/dL non-numeric Charles results) Physician) CALCIUM, 9.7 mg/dL Normal [facility] ([facility]mm [facility] SERUM non-numeric Charles results) Physician) EGFR NON AFR 82 Above high normal [facility] (A mmir GAMBIAN mL/min/1. Charles 73m2 Physician) EGFR AFR 99 Above high normal [facility] (Ammi r GAMBIAN mL/min/1. Charles 73m2 Physician) ID Date Data Source [id number] 12/01/2016 12:00:00 AM EDT [facility] (Ammir Charles Physician) Name Value Range Interpretation Description Data Sup porting Code Source(s) Document(s ) GLUCOSE 91 mg/dL Normal (applies to [facility] (Amm ir NONFASTING,S non-numeric Charles NANY results) Physician) SODIUM, 138 mEq/L Normal ([facility] (Amm ir SERUM non-numeric Charles results) Physician) POTASSIUM, 4.2 mEq/L Normal (applies to [facility] (Am teetee SERUM non-numeric Charles results) Physician) CHLORIDE, 108 mEq/L Normal (applies to [facility] (Amm ir SERUM non-numeric Charles results) Physician) Carbon 23 mEq/L Normal (applies to [facility] (Amm ir dioxide non-numeric Charles [VFr/PPres] results) Physician) in Gas delivery system Anion gap in 11.2 Normal (applies to [facility] ( Ammir Body fluid mEq/L non-numeric Charles results) Physician) BLOOD UREA 11 mg/dL Normal (applies to [facility] (Am teetee NITROGEN non-numeric Charles results) Physician) CREATININE, 0.80 Normal (applies to [facility] (A mmir SERUM mg/dL non-numeric Charles results) Physician) CALCIUM, 9.7 mg/dL Normal (applies to [facility] (Amm ir SERUM non-numeric Charles results) Physician) EGFR NON AFR 82 Above high normal [facility] (A mmir GAMBIAN mL/min/1. Charles 73m2 Physician) EGFR AFR 99 Above high normal [facility] (Ammi r GAMBIAN mL/min/1. Charles 73m2 Physician) ID Date Data Source [id number] 12/01/2016 12:00:00 AM EDT [facility] (Ammir Charles Physician) Name Value Range Interpretation Description Data Sup porting Code Source(s) Document(s ) GLUCOSE 91 mg/dL Normal (applies to [facility] (Amm ir NONFASTING,S non-numeric Charles NANY results) Physician) SODIUM, 138 mEq/L Normal (applies to [facility] (Amm ir SERUM non-numeric Charles results) Physician) POTASSIUM, 4.2 mEq/L Normal (applies to [facility] (Am teetee SERUM non-numeric Charles results) Physician) CHLORIDE, 108 mEq/L Normal (applies to [facility] (Amm ir SERUM non-numeric Charles results) Physician) Carbon 23 mEq/L Normal (applies to [facility] (Amm ir dioxide non-numeric Charles [VFr/PPres] results) Physician) in Gas delivery system Anion gap in 11.2 Normal (applies to [facility] ( Ammir Body fluid mEq/L non-numeric Charles results) Physician) BLOOD UREA 11 mg/dL Normal (applies to [facility] (Am teetee NITROGEN non-numeric Charles results) Physician) CREATININE, 0.80 Normal (applies to [facility] (A mmir SERUM mg/dL non-numeric Charles results) Physician) CALCIUM, 9.7 mg/dL Normal (applies to [facility] (Amm ir SERUM non-numeric Charles results) Physician) EGFR NON AFR 82 Above high normal [facility] (A mmir GAMBIAN mL/min/1. Charles 73m2 Physician) EGFR AFR 99 Above high normal [facility] (Ammi r GAMBIAN mL/min/1. Charles 73m2 Physician) ID Date Data Source [id number] 12/01/2016 12:00:00 AM EDT [facility] (Ammir Charles Physician) Name Value Range Interpretation Description Data Sup porting Code Source(s) Document(s ) GLUCOSE 91 mg/dL Normal (applies to [facility] (Amm ir NONFASTING,S non-numeric Charles NANY results) Physician) SODIUM, 138 mEq/L Normal (applies to [facility] (Amm ir SERUM non-numeric Charles results) Physician) POTASSIUM, 4.2 mEq/L Normal (applies to [facility] (Am teetee SERUM non-numeric Charles results) Physician) CHLORIDE, 108 mEq/L Normal (applies to [facility] (Amm ir SERUM non-numeric Charles results) Physician) Carbon 23 mEq/L Normal (applies to [facility] (Amm ir dioxide non-numeric Charles [VFr/PPres] results) Physician) in Gas delivery system Anion gap in 11.2 Normal (applies to [facility] ( Ammir Body fluid mEq/L non-numeric Charles results) Physician) BLOOD UREA 11 mg/dL Normal (applies to [facility] (Am teetee NITROGEN non-numeric Charles results) Physician) CREATININE, 0.80 Normal (applies to [facility] (A mmir SERUM mg/dL non-numeric Charles results) Physician) CALCIUM, 9.7 mg/dL Normal (applies to [facility] (Amm ir SERUM non-numeric Charles results) Physician) EGFR NON AFR 82 Above high normal [facility] (A mmir GAMBIAN mL/min/1. Charles 73m2 Physician) EGFR AFR 99 Above high normal [facility] (Ammi r GAMBIAN mL/min/1. Charles 73m2 Physician) ID Date Data Source [id number] 12/01/2016 12:00:00 AM EDT [facility] (Ammir Charles Physician) Name Value Range Interpretation Description Data Sup porting Code Source(s) Document(s ) GLUCOSE 91 mg/dL Normal (applies to [facility] (Amm ir NONFASTING,S non-numeric Charles NANY results) Physician) SODIUM, 138 mEq/L Normal (applies to [facility] (Amm ir SERUM non-numeric Charles results) Physician) POTASSIUM, 4.2 mEq/L Normal (applies to [facility] (Am teetee SERUM non-numeric Charles results) Physician) CHLORIDE, 108 mEq/L Normal (applies to [facility] (Amm ir SERUM non-numeric Charles results) Physician) Carbon 23 mEq/L Normal (applies to [facility] (Amm ir dioxide non-numeric Charles [VFr/PPres] results) Physician) in Gas delivery system Anion gap in 11.2 Normal (applies to [facility] ( Ammir Body fluid mEq/L non-numeric Charles results) Physician) BLOOD UREA 11 mg/dL Normal (applies to [facility] (Am teetee NITROGEN non-numeric Charles results) Physician) CREATININE, 0.80 Normal (applies to [facility] (A mmir SERUM mg/dL non-numeric Charles results) Physician) CALCIUM, 9.7 mg/dL Normal (applies to [facility] (Amm ir SERUM non-numeric Charles results) Physician) EGFR NON AFR 82 Above high normal [facility] (A mmir GAMBIAN mL/min/1. Charles 73m2 Physician) EGFR AFR 99 Above high normal [facility] (Ammi r GAMBIAN mL/min/1. Charles 73m2 Physician) ID Date Data Source [id number] 11/17/2016 12:00:00 AM EDT [facility] (Ammir Charles [...] results) Charles Physician) ID Date Data Source [id number] 11/17/2016 12:00:00 AM EDT [facility] (Ammir Charles Physician) Name Value Range Interpretation Description Data Sup porting Code Source(s) Document(s ) ORGANISM Abnormal (applies [facility] to non-numeric (Ammir results) Charles Physician) Comment Normal (applies [facility] [Interpretation] to non-numeric (Ammir Left eye Narrative results) Charles Ophthalmometer Physician) ID Date Data Source [id number] 11/17/2016 12:00:00 AM EDT [facility] (Ammir Charles [...] results) Charles Physician) ID Date Data Source [id number] 11/17/2016 12:00:00 AM EDT [facility] (Ammir Charles Physician) Name Value Range Interpretation Description Data Sup porting Code Source(s) Document(s ) ORGANISM Abnormal (applies [facility] to non-numeric (Ammir results) Charles Physician) Comment Normal (applies [facility] [Interpretation] to non-numeric (Ammir Left eye Narrative results) Charles Ophthalmometer Physician) ID Date Data Source [id number] 11/17/2016 12:00:00 AM EDT [facility] (Ammir Charles [...] results) Charles Physician) ID Date Data Source [id number] 11/17/2016 12:00:00 AM EDT [facility] (Ammir Charles Physician) Name Value Range Interpretation Description Data Sup porting Code Source(s) Document(s ) ORGANISM Abnormal (applies [facility] to non-numeric (Ammir results) Charles Physician) Comment Normal (applies [facility] [Interpretation] to non-numeric (Ammir Left eye Narrative results) Charles Ophthalmometer Physician) ID Date Data Source [id number] 11/17/2016 12:00:00 AM EDT [facility] (Ammir Charles Physician) Name Value Range Interpretation Description Data Sup porting Code Source(s) Document(s ) ORGANISM Abnormal (applies [facility] to non-numeric (Ammir results) Charles Physician) Comment Normal (applies [facility] [Interpretation] to non-numeric (Ammir Left eye Narrative results) Charles Ophthalmometer Physician) ID Date Data Source [id number] 11/17/2016 12:00:00 AM EDT [facility] (Ammir Charles [...] results) Charles Physician) ID Date Data Source [id number] 11/17/2016 12:00:00 AM EDT [facility] (Ammir Charles [...] Narrative Physician) Ophthalmometer ID Date Data Source [id number] 07/04/2016 12:00:00 AM EDT [facility] (Ammir Charles [...] 3 results) Physician) ID Date Data Source [id number] 07/04/2016 12:00:00 AM EDT [facility] (Ammir Charles [...] 3 results) Physician) ID Date Data Source [id number] 07/04/2016 12:00:00 AM EDT [facility] (Ammir Charles [...] 3 results) Physician) ID Date Data Source [id number] 07/04/2016 12:00:00 AM EDT [facility] (Ammir Charles [...] 3 results) Physician) ID Date Data Source [id number] 06/29/2016 12:00:00 AM EDT [facility] (Ammir Charles Physician) Name Value Range Interpretation Description Data Sup porting Code Source(s) Document(s ) VITAMIN D 58.8 Normal (applies to [facility] (Amm ir 1.25 pg/mL non-numeric Charles results) Physician) ID Date Data Source [id number] 06/29/2016 12:00:00 AM EDT [facility] (Ammir Charles Physician) Name Value Range Interpretation Description Data Sup porting Code Source(s) Document(s ) FOLATE SERUM 13.4 Above high normal [facility] (A mmir ng/mL Charles Physician) VITAMIN B12 676 pg/mL Normal (applies to [facility] (A mmir non-numeric Charles results) Physician) ID Date Data Source [id number] 06/29/2016 12:00:00 AM EDT [facility] (Ammir Charles Physician) Name Value Range Interpretation Description Data Sup porting Code Source(s) Document(s ) T4 FREE, 0.88 Below low normal [facility] THYROXINE ng/dL (Ammir Charles Physician) TSH,3RD 1.588 Normal (applies to [facility] GENERATION uIU/mL non-numeric (Ammir results) Charles Physician) ID Date Data Source [id number] 06/29/2016 12:00:00 AM EDT [facility] (Ammir Charles Physician) Name Value Range Interpretation Description Data Sup porting Code Source(s) Document(s ) HEPATITIS A NONREACTIVE Normal (applies [facility] AB to non-numeric (Ammir results) Charles Physician) ID Date Data Source [id number] 06/29/2016 12:00:00 AM EDT [facility] (Ammir Charles Physician) Name Value Range Interpretation Description Data Sup porting Code Source(s) Document(s ) HEPATITIS BS NONREACTIVE Normal (applies [facility] AG SCREEN to non-numeric (Ammir results) Charles Physician) ID Date Data Source [id number] 06/29/2016 12:00:00 AM EDT [facility] (Ammir Charles Physician) Name Value Range Interpretation Code Description Data Faiza rce(s) Supporting Document(s ) HBeAB NEGATIVE Normal (applies to [facility] (Amm ir non-numeric results) Charles Physician) ID Date Data Source [id number] 06/29/2016 12:00:00 AM EDT [facility] (Ammir Charles Physician) Name Value Range Interpretation Description Data Sup porting Code Source(s) Document(s ) HEPATITIS C NONREACTIVE Normal (applies [facility] AB QL to non-numeric (Ammir results) Charles Physician) ID Date Data Source [id number] 06/29/2016 12:00:00 AM EDT [facility] (Ammir Charles Physician) Name Value Range Interpretation Description Data Sup porting Code Source(s) Document(s ) HEPATITIS B NONREACTIVE Normal (applies [facility] CORE AB QL to non-numeric (Ammir results) Charles Physician) ID Date Data Source [id number] 06/29/2016 12:00:00 AM EDT [facility] (Ammir Charles Physician) Name Value Range Interpretation Description Data Sup porting Code Source(s) Document(s ) HEPATITIS B 97.07 Normal (applies to [facility] (A mmir SURFACE AB (REACTIVE non-numeric Charles ) results) Physician) ID Date Data Source [id number] 06/29/2016 12:00:00 AM EDT [facility] (Ammir Charles Physician) Name Value Range Interpretation Description Data Sup porting Code Source(s) Document(s ) HEPATITIS BE NONREACTIVE Normal (applies [facility] AG to non-numeric (Ammir results) Charles Physician) ID Date Data Source [id number] 06/29/2016 12:00:00 AM EDT [facility] (Ammir Charles Physician) Name Value Range Interpretation Description Data Sup porting Code Source(s) Document(s ) Hemoglobin A1c 5.6 % Normal (applies to [facility] (Ammir in Blood non-numeric Charles results) Physician) ID Date Data Source [id number] 06/29/2016 12:00:00 AM EDT [facility] (Ammir Charles Physician) Name Value Range Interpretation Code Description Data Supporting Source(s) Document(s ) GLYCOMARK 16.56 Normal (applies to [facility] (Amm ir ug/mL non-numeric Charles results) Physician) ID Date Data Source [id number] 06/29/2016 12:00:00 AM EDT [facility] (Ammir Charles [...] results) Charles Physician) ID Date Data Source [id number] 06/29/2016 12:00:00 AM EDT [facility] (Ammir Charles [...] NON AFR 72 Above high normal [facility] GAMBIAN mL/min/1 (Ammir .73m2 Charles Physician) EGFR AFR 87 Above high normal [facility] GAMBIAN mL/min/1 (Ammir .73m2 Charles Physician) ID Date Data Source [id number] 06/29/2016 12:00:00 AM EDT [facility] (Ammir Charles [...] results) Charles Physician) ID Date Data Source [id number] 06/29/2016 12:00:00 AM EDT [facility] (Ammir Charles Physician) Name Value Range Interpretation Description Data Sup porting Code Source(s) Document(s ) T3 FREE 2.4 Normal (applies [facility] TRIIODOTHYRONINE pg/mL to non-numeric (Ammir results) Charles Physician) ID Date Data Source [id number] 06/29/2016 12:00:00 AM EDT [facility] (Ammir Charles Physician) Name Value Range Interpretation Description Data Sup porting Code Source(s) Document(s ) T4 TOTAL 5.9 ug/dL Normal (applies to [facility] (Amm ir THYROXINE non-numeric Charles results) Physician) ID Date Data Source [id number] 06/29/2016 12:00:00 AM EDT [facility] (Ammir Charles Physician) Name Value Range Interpretation Code Description Data Faiza rce(s) Supporting Document(s ) T3 TOTAL 91 ng/dL Normal (applies to [facility] (Amm ir non-numeric Charles results) Physician) ID Date Data Source [id number] 06/29/2016 12:00:00 AM EDT [facility] (Ammir Charles Physician) Name Value Range Interpretation Description Data Sup porting Code Source(s) Document(s ) T4 TOTAL 5.9 ug/dL Normal (applies to [facility] (Amm ir THYROXINE non-numeric Charles results) Physician) ID Date Data Source [id number] 06/29/2016 12:00:00 AM EDT [facility] (Ammir Charles Physician) Name Value Range Interpretation Code Description Data Faiza rce(s) Supporting Document(s ) T3 TOTAL 91 ng/dL Normal (applies to [facility] (Amm ir non-numeric Charles results) Physician) ID Date Data Source [id number] 06/29/2016 12:00:00 AM EDT [facility] (Ammir Charles Physician) Name Value Range Interpretation Description Data Sup porting Code Source(s) Document(s ) VITAMIN D 58.8 Normal (applies to [facility] (Amm ir 1.25 pg/mL non-numeric Charles results) Physician) ID Date Data Source [id number] 06/29/2016 12:00:00 AM EDT [facility] (Ammir Charles Physician) Name Value Range Interpretation Description Data Sup porting Code Source(s) Document(s ) FOLATE SERUM 13.4 Above high normal [facility] (A mmir ng/mL Charles Physician) VITAMIN B12 676 pg/mL Normal (applies to [facility] (A mmir non-numeric Charles results) Physician) ID Date Data Source [id number] 06/29/2016 12:00:00 AM EDT [facility] (Ammir Charles Physician) Name Value Range Interpretation Description Data Sup porting Code Source(s) Document(s ) T4 FREE, 0.88 Below low normal [facility] THYROXINE ng/dL (Ammir Charles Physician) TSH,3RD 1.588 Normal (applies to [facility] GENERATION uIU/mL non-numeric (Ammir results) Charles Physician) ID Date Data Source [id number] 06/29/2016 12:00:00 AM EDT [facility] (Ammir Charles Physician) Name Value Range Interpretation Description Data Sup porting Code Source(s) Document(s ) HEPATITIS A NONREACTIVE Normal (applies [facility] AB to non-numeric (Ammir results) Charles Physician) ID Date Data Source [id number] 06/29/2016 12:00:00 AM EDT [facility] (Ammir Charles Physician) Name Value Range Interpretation Description Data Sup porting Code Source(s) Document(s ) HEPATITIS BS NONREACTIVE Normal (applies [facility] AG SCREEN to non-numeric (Ammir results) Charles Physician) ID Date Data Source [id number] 06/29/2016 12:00:00 AM EDT [facility] (Ammir Charles Physician) Name Value Range Interpretation Code Description Data Faiza rce(s) Supporting Document(s ) HBeAB NEGATIVE Normal (applies to [facility] (Amm ir non-numeric results) Charles Physician) ID Date Data Source [id number] 06/29/2016 12:00:00 AM EDT [facility] (Ammir Charles Physician) Name Value Range Interpretation Description Data Sup porting Code Source(s) Document(s ) HEPATITIS C NONREACTIVE Normal (applies [facility] AB QL to non-numeric (Ammir results) Charles Physician) ID Date Data Source [id number] 06/29/2016 12:00:00 AM EDT [facility] (Ammir Charles Physician) Name Value Range Interpretation Description Data Sup porting Code Source(s) Document(s ) HEPATITIS B NONREACTIVE Normal (applies [facility] CORE AB QL to non-numeric (Ammir results) Charles Physician) ID Date Data Source [id number] 06/29/2016 12:00:00 AM EDT [facility] (Ammir Charles Physician) Name Value Range Interpretation Description Data Sup porting Code Source(s) Document(s ) HEPATITIS B 97.07 Normal (applies to [facility] (A mmir SURFACE AB (REACTIVE non-numeric Charles ) results) Physician) ID Date Data Source [id number] 06/29/2016 12:00:00 AM EDT [facility] (Ammir Charles Physician) Name Value Range Interpretation Description Data Sup porting Code Source(s) Document(s ) HEPATITIS BE NONREACTIVE Normal (applies [facility] AG to non-numeric (Ammir results) Charles Physician) ID Date Data Source [id number] 06/29/2016 12:00:00 AM EDT [facility] (Ammir Charles Physician) Name Value Range Interpretation Description Data Sup porting Code Source(s) Document(s ) Hemoglobin A1c 5.6 % Normal (applies to [facility] (Ammir in Blood non-numeric Charles results) Physician) ID Date Data Source [id number] 06/29/2016 12:00:00 AM EDT [facility] (Ammir Charles Physician) Name Value Range Interpretation Code Description Data Supporting Source(s) Document(s ) GLYCOMARK 16.56 Normal (applies to [facility] (Amm ir ug/mL non-numeric Charles results) Physician) ID Date Data Source [id number] 06/29/2016 12:00:00 AM EDT [facility] (Ammir Charles [...] results) Charles Physician) ID Date Data Source [id number] 06/29/2016 12:00:00 AM EDT [facility] (Ammir Charles [...] NON AFR 72 Above high normal [facility] GAMBIAN mL/min/1 (Ammir .73m2 Charles Physician) EGFR AFR 87 Above high normal [facility] GAMBIAN mL/min/1 (Ammir .73m2 Charles Physician) ID Date Data Source [id number] 06/29/2016 12:00:00 AM EDT [facility] (Ammir Charles [...] results) Charles Physician) ID Date Data Source [id number] 06/29/2016 12:00:00 AM EDT [facility] (Ammir Charles Physician) Name Value Range Interpretation Description Data Sup porting Code Source(s) Document(s ) T3 FREE 2.4 Normal (applies [facility] TRIIODOTHYRONINE pg/mL to non-numeric (Ammir results) Charles Physician) ID Date Data Source [id number] 06/29/2016 12:00:00 AM EDT [facility] (Ammir Charles Physician) Name Value Range Interpretation Description Data Sup porting Code Source(s) Document(s ) FOLATE SERUM 13.4 Above high normal [facility] (A mmir ng/mL Charles Physician) VITAMIN B12 676 pg/mL Normal (applies to [facility] (A mmir non-numeric Charles results) Physician) ID Date Data Source [id number] 06/29/2016 12:00:00 AM EDT [facility] (Ammir Charles Physician) Name Value Range Interpretation Description Data Sup porting Code Source(s) Document(s ) T4 FREE, 0.88 Below low normal [facility] THYROXINE ng/dL (Ammir Charles Physician) TSH,3RD 1.588 Normal (applies to [facility] GENERATION uIU/mL non-numeric (Ammir results) Charles Physician) ID Date Data Source [id number] 06/29/2016 12:00:00 AM EDT [facility] (Ammir Charles Physician) Name Value Range Interpretation Description Data Sup porting Code Source(s) Document(s ) HEPATITIS A NONREACTIVE Normal (applies [facility] AB to non-numeric (Ammir results) Charles Physician) ID Date Data Source [id number] 06/29/2016 12:00:00 AM EDT [facility] (Ammir Charles Physician) Name Value Range Interpretation Description Data Sup porting Code Source(s) Document(s ) HEPATITIS BS NONREACTIVE Normal (applies [facility] AG SCREEN to non-numeric (Ammir results) Charles Physician) ID Date Data Source [id number] 06/29/2016 12:00:00 AM EDT [facility] (Ammir Charles Physician) Name Value Range Interpretation Code Description Data Faiza rce(s) Supporting Document(s ) HBeAB NEGATIVE Normal (applies to [facility] (Amm ir non-numeric results) Charles Physician) ID Date Data Source [id number] 06/29/2016 12:00:00 AM EDT [facility] (Ammir Charles Physician) Name Value Range Interpretation Description Data Sup porting Code Source(s) Document(s ) HEPATITIS C NONREACTIVE Normal (applies [facility] AB QL to non-numeric (Ammir results) Charles Physician) ID Date Data Source [id number] 06/29/2016 12:00:00 AM EDT [facility] (Ammir Charles Physician) Name Value Range Interpretation Description Data Sup porting Code Source(s) Document(s ) HEPATITIS B NONREACTIVE Normal (applies [facility] CORE AB QL to non-numeric (Ammir results) Charles Physician) ID Date Data Source [id number] 06/29/2016 12:00:00 AM EDT [facility] (Ammir Charles Physician) Name Value Range Interpretation Description Data Sup porting Code Source(s) Document(s ) HEPATITIS B 97.07 Normal (applies to [facility] (A mmir SURFACE AB (REACTIVE non-numeric Charles ) results) Physician) ID Date Data Source [id number] 06/29/2016 12:00:00 AM EDT [facility] (Ammir Charles Physician) Name Value Range Interpretation Description Data Sup porting Code Source(s) Document(s ) HEPATITIS BE NONREACTIVE Normal (applies [facility] AG to non-numeric (Ammir results) Charles Physician) ID Date Data Source [id number] 06/29/2016 12:00:00 AM EDT [facility] (Ammir Charles Physician) Name Value Range Interpretation Description Data Sup porting Code Source(s) Document(s ) Hemoglobin A1c 5.6 % Normal (applies to [facility] (Ammir in Blood non-numeric Charles results) Physician) ID Date Data Source [id number] 06/29/2016 12:00:00 AM EDT [facility] (Ammir Charles Physician) Name Value Range Interpretation Code Description Data Supporting Source(s) Document(s ) GLYCOMARK 16.56 Normal (applies to [facility] (Amm ir ug/mL non-numeric Charles results) Physician) ID Date Data Source [id number] 06/29/2016 12:00:00 AM EDT [facility] (Ammir Charles [...] results) Charles Physician) ID Date Data Source [id number] 06/29/2016 12:00:00 AM EDT [facility] (Ammir Charles [...] NON AFR 72 Above high normal [facility] GAMBIAN mL/min/1 (Ammir .73m2 Charles Physician) EGFR AFR 87 Above high normal [facility] GAMBIAN mL/min/1 (Ammir .73m2 Charles Physician) ID Date Data Source [id number] 06/29/2016 12:00:00 AM EDT [facility] (Ammir Charles [...] results) Charles Physician) ID Date Data Source [id number] 06/29/2016 12:00:00 AM EDT [facility] (Ammir Charles Physician) Name Value Range Interpretation Description Data Sup porting Code Source(s) Document(s ) T3 FREE 2.4 Normal (applies [facility] TRIIODOTHYRONINE pg/mL to non-numeric (Ammir results) Charles Physician) ID Date Data Source [id number] 06/29/2016 12:00:00 AM EDT [facility] (Ammir Charles Physician) Name Value Range Interpretation Description Data Sup porting Code Source(s) Document(s ) VITAMIN D 58.8 Normal (applies to [facility] (Amm ir 1.25 pg/mL non-numeric Charles results) Physician) ID Date Data Source [id number] 06/29/2016 12:00:00 AM EDT [facility] (Ammir Charles Physician) Name Value Range Interpretation Description Data Sup porting Code Source(s) Document(s ) FOLATE SERUM 13.4 Above high normal [facility] (A mmir ng/mL Charles Physician) VITAMIN B12 676 pg/mL Normal (applies to [facility] (A mmir non-numeric Charles results) Physician) ID Date Data Source [id number] 06/29/2016 12:00:00 AM EDT [facility] (Ammir Charles Physician) Name Value Range Interpretation Description Data Sup porting Code Source(s) Document(s ) T4 FREE, 0.88 Below low normal [facility] THYROXINE ng/dL (Ammir Charles Physician) TSH,3RD 1.588 Normal (applies to [facility] GENERATION uIU/mL non-numeric (Ammir results) Charles Physician) ID Date Data Source [id number] 06/29/2016 12:00:00 AM EDT [facility] (Ammir Charles Physician) Name Value Range Interpretation Description Data Sup porting Code Source(s) Document(s ) HEPATITIS A NONREACTIVE Normal (applies [facility] AB to non-numeric (Ammir results) Charles Physician) ID Date Data Source [id number] 06/29/2016 12:00:00 AM EDT [facility] (Ammir Charles Physician) Name Value Range Interpretation Description Data Sup porting Code Source(s) Document(s ) HEPATITIS BS NONREACTIVE Normal (applies [facility] AG SCREEN to non-numeric (Ammir results) Charles Physician) ID Date Data Source [id number] 06/29/2016 12:00:00 AM EDT [facility] (Ammir Charles Physician) Name Value Range Interpretation Code Description Data Faiza rce(s) Supporting Document(s ) HBeAB NEGATIVE Normal (applies to [facility] (Amm ir non-numeric results) Charles Physician) ID Date Data Source [id number] 06/29/2016 12:00:00 AM EDT [facility] (Ammir Charles Physician) Name Value Range Interpretation Description Data Sup porting Code Source(s) Document(s ) HEPATITIS C NONREACTIVE Normal (applies [facility] AB QL to non-numeric (Ammir results) Charles Physician) ID Date Data Source [id number] 06/29/2016 12:00:00 AM EDT [facility] (Ammir Charles Physician) Name Value Range Interpretation Description Data Sup porting Code Source(s) Document(s ) HEPATITIS B NONREACTIVE Normal (applies [facility] CORE AB QL to non-numeric (Ammir results) Charles Physician) ID Date Data Source [id number] 06/29/2016 12:00:00 AM EDT [facility] (Ammir Charles Physician) Name Value Range Interpretation Description Data Sup porting Code Source(s) Document(s ) HEPATITIS B 97.07 Normal (applies to [facility] (A mmir SURFACE AB (REACTIVE non-numeric Charles ) results) Physician) ID Date Data Source [id number] 06/29/2016 12:00:00 AM EDT [facility] (Ammir Charles Physician) Name Value Range Interpretation Description Data Sup porting Code Source(s) Document(s ) HEPATITIS BE NONREACTIVE Normal (applies [facility] AG to non-numeric (Ammir results) Charles Physician) ID Date Data Source [id number] 06/29/2016 12:00:00 AM EDT [facility] (Ammir Charles Physician) Name Value Range Interpretation Description Data Sup porting Code Source(s) Document(s ) Hemoglobin A1c 5.6 % Normal (applies to [facility] (Ammir in Blood non-numeric Charles results) Physician) ID Date Data Source [id number] 06/29/2016 12:00:00 AM EDT [facility] (Ammir Charles Physician) Name Value Range Interpretation Code Description Data Supporting Source(s) Document(s ) GLYCOMARK 16.56 Normal (applies to [facility] (Amm ir ug/mL non-numeric Charles results) Physician) ID Date Data Source [id number] 06/29/2016 12:00:00 AM EDT [facility] (Ammir Charles [...] results) Charles Physician) ID Date Data Source [id number] 06/29/2016 12:00:00 AM EDT [facility] (Ammir Charles [...] EGFR AFR 87 Above high normal [facility] GAMBIAN mL/min/1 (Ammir .73m2 Charles Physician) EGFR NON AFR 72 Above high normal [facility] GAMBIAN mL/min/1 (Ammir .73m2 Charles Physician) ID Date Data Source [id number] 06/29/2016 12:00:00 AM EDT [facility] (Ammir Charles [...] results) Charles Physician) ID Date Data Source [id number] 06/29/2016 12:00:00 AM EDT [facility] (Ammir Charles Physician) Name Value Range Interpretation Description Data Sup porting Code Source(s) Document(s ) T3 FREE 2.4 Normal (applies [facility] TRIIODOTHYRONINE pg/mL to non-numeric (Ammir results) Charles Physician) ID Date Data Source [id number] 06/29/2016 12:00:00 AM EDT [facility] (Ammir Charles Physician) Name Value Range Interpretation Description Data Sup porting Code Source(s) Document(s ) T4 TOTAL 5.9 ug/dL Normal (applies to [facility] (Amm ir THYROXINE non-numeric Charles results) Physician) ID Date Data Source [id number] 06/29/2016 12:00:00 AM EDT [facility] (Ammir Charles Physician) Name Value Range Interpretation Code Description Data Faiza rce(s) Supporting Document(s ) T3 TOTAL 91 ng/dL Normal (applies to [facility] (Amm ir non-numeric Charles results) Physician) ID Date Data Source [id number] 06/29/2016 12:00:00 AM EDT [facility] (Ammir Charles Physician) Name Value Range Interpretation Description Data Sup porting Code Source(s) Document(s ) VITAMIN D 58.8 Normal (applies to [facility] (Amm ir 1.25 pg/mL non-numeric Charles results) Physician) ID Date Data Source [id number] 06/29/2016 12:00:00 AM EDT [facility] (Ammir Charles Physician) Name Value Range Interpretation Description Data Sup porting Code Source(s) Document(s ) T4 TOTAL 5.9 ug/dL Normal (applies to [facility] (Amm ir THYROXINE non-numeric Charles results) Physician) ID Date Data Source [id number] 06/29/2016 12:00:00 AM EDT [facility] (Ammir Charles Physician) Name Value Range Interpretation Description Data Sup porting Code Source(s) Document(s ) HEPATITIS A NONREACTIVE Normal (applies [facility] AB to non-numeric (Ammir results) Charles Physician) ID Date Data Source [id number] 06/29/2016 12:00:00 AM EDT [facility] (Ammir Charles [...] results) Charles Physician) ID Date Data Source [id number] 06/29/2016 12:00:00 AM EDT [facility] (Ammir Charles Physician) Name Value Range Interpretation Code Description Data Faiza rce(s) Supporting Document(s ) HBeAB NEGATIVE Normal (applies to [facility] (Amm ir non-numeric results) Charles Physician) ID Date Data Source [id number] 06/29/2016 12:00:00 AM EDT [facility] (Ammir Charles [...] results) Charles Physician) ID Date Data Source [id number] 06/29/2016 12:00:00 AM EDT [facility] (Ammir Charles Physician) Name Value Range Interpretation Description Data Sup porting Code Source(s) Document(s ) HEPATITIS B NONREACTIVE Normal (applies [facility] CORE AB QL to non-numeric (Ammir results) Charles Physician) ID Date Data Source [id number] 06/29/2016 12:00:00 AM EDT [facility] (Ammir Charles Physician) Name Value Range Interpretation Description Data Sup porting Code Source(s) Document(s ) HEPATITIS B 97.07 Normal (applies to [facility] (A mmir SURFACE AB (REACTIVE non-numeric Charles ) results) Physician) ID Date Data Source [id number] 06/29/2016 12:00:00 AM EDT [facility] (Ammir Charles Physician) Name Value Range Interpretation Description Data Sup porting Code Source(s) Document(s ) HEPATITIS BE NONREACTIVE Normal (applies [facility] AG to non-numeric (Ammir results) Charles Physician) ID Date Data Source [id number] 06/29/2016 12:00:00 AM EDT [facility] (Ammir Charles Physician) Name Value Range Interpretation Description Data Sup porting Code Source(s) Document(s ) Hemoglobin A1c 5.6 % Normal (applies to [facility] (Ammir in Blood non-numeric Charles results) Physician) ID Date Data Source [id number] 06/29/2016 12:00:00 AM EDT [facility] (Ammir Charles Physician) Name Value Range Interpretation Code Description Data Supporting Source(s) Document(s ) GLYCOMARK 16.56 Normal (applies to [facility] (Amm ir ug/mL non-numeric Charles results) Physician) ID Date Data Source [id number] 06/29/2016 12:00:00 AM EDT [facility] (Ammir Charles [...] results) Charles Physician) ID Date Data Source [id number] 06/29/2016 12:00:00 AM EDT [facility] (Ammir Charles [...] NON AFR 72 Above high normal [facility] GAMBIAN mL/min/1 (Ammir .73m2 Charles Physician) EGFR AFR 87 Above high normal [facility] GAMBIAN mL/min/1 (Ammir .73m2 Charles Physician) ID Date Data Source [id number] 06/29/2016 12:00:00 AM EDT [facility] (Ammir Charles [...] results) Charles Physician) ID Date Data Source [id number] 06/29/2016 12:00:00 AM EDT [facility] (Ammir Charles [...] EGFR NON AFR 82 Above high [facility] GAMBIAN mL/min/1 normal (Ammir .73m2 Charles Physician) EGFR AFR GAMBIAN 99 Above high [facility] mL/min/1 normal (Ammir .73m2 Charles Physician) T3 FREE 2.4 Normal (applies [facility] TRIIODOTHYRONINE pg/mL to non-numeric (Ammir results) Hcarles Physician) ID Date Data Source [id number] 06/29/2016 12:00:00 AM EDT [facility] (Ammir Charles Physician) Name Value Range Interpretation Description Data Sup porting Code Source(s) Document(s ) T4 TOTAL 5.9 ug/dL Normal (applies to [facility] (Amm ir THYROXINE non-numeric Charles results) Physician) ID Date Data Source [id number] 06/29/2016 12:00:00 AM EDT [facility] (Ammir Charles Physician) Name Value Range Interpretation Code Description Data Faiza rce(s) Supporting Document(s ) T3 TOTAL 91 ng/dL Normal (applies to [facility] (Amm ir non-numeric Charles results) Physician) ID Date Data Source [id number] 06/29/2016 12:00:00 AM EDT [facility] (Ammir Charles Physician) Name Value Range Interpretation Description Data Sup porting Code Source(s) Document(s ) VITAMIN D 58.8 Normal (applies to [facility] (Amm ir 1.25 pg/mL non-numeric Charles results) Physician) ID Date Data Source [id number] 06/29/2016 12:00:00 AM EDT [facility] (Ammir Charles Physician) Name Value Range Interpretation Description Data Sup porting Code Source(s) Document(s ) FOLATE SERUM 13.4 Above high normal [facility] (A mmir ng/mL Charles Physician) VITAMIN B12 676 pg/mL Normal (applies to [facility] (A mmir non-numeric Charles results) Physician) ID Date Data Source [id number] 06/29/2016 12:00:00 AM EDT [facility] (Ammir Charles [...] Ever completed Denies Ever [facility]oked [facility] 08:18:00 AM EDT Smoked Medical [facility] enter [...] /min [facility] (Ammir Charles Physician) Body temperature 36.632949 36.420592 [facility] Respiratory rate 18 /min 18 /min [facility] Oxygen saturation 99 % 99 % [facility] Arterial blood [facility] by Pulse oximetry Heart rate 85 /min 85 /min [facility] Diastolic blood 90 mm[Hg] 90 mm[Hg] [facility] Systolic blood 136 mm[Hg] 136 mm[Hg] [facility] Body temperature 35.203679 35.291599 [facility] Respiratory rate 20 /min 20 /min [facility] Oxygen saturation 99 % 99 % [facility] Arterial blood [facility] by Pulse oximetry Heart rate 75 /min 75 /min [facility] Diastolic blood 90 mm[Hg] 90 mm[Hg] [facility] Systolic blood 144 mm[Hg] 144 mm[Hg] [facility] Body temperature 36.617897 36.327909 [facility] Respiratory rate 20 /min 20 /min [facility] Oxygen saturation 100 % 100 % [facility] blood [facility] by Pulse oximetry Heart rate 88 /min 88 /min [facility] Diastolic blood 75 mm[Hg] 75 mm[Hg] [facility] Systolic blood 122 mm[Hg] 122 mm[Hg] [facility] pressure [facility] Center Heart rate 83 /min 83 /min [facility] Diastolic blood 93 mm[Hg] 93 mm[Hg] [facility] pressure [facility] Systolic blood 153 mm[Hg] 153 mm[Hg] [facility] Body temperature 36.790438 36.550704 [facility] Respiratory rate 18 /min 18 /min [facility] Oxygen saturation 100 % 100 % [facility] in [facility] blood [facility] by Pulse oximetry Body height 67 in [...] /min [facility] (Ammir Charles Physician) Body temperature 36.556182 36.120494 [facility] Respiratory rate 18 /min 18 /min [facility] Oxygen saturation 98 % 98 % [facility] radha in [facility] blood [facility] by Pulse oximetry Heart rate 76 /min 76 /min [facility] Diastolic blood 88 mm[Hg] 88 mm[Hg] [facility] pressure [facility] Systolic blood 145 mm[Hg] 145 mm[Hg] [facility] Body height 67 in in [facility] [...] /min [facility] (Ammir Charles Physician) Body weight 105.682327 105.556463 kg [facility] Measured kg [facility] Body temperature 36.995254 36.617905 [facility] Respiratory rate 18 /min 18 /min [facility] Oxygen saturation 98 % 98 % [facility] in Arterial blood [facility] by Pulse oximetry Heart rate 97 /min 97 /min [facility] Body height 170.567413 170.717644 cm [facility] cm [facility] Diastolic blood 72 mm[Hg] 72 mm[Hg] [facility] pressure [facility] Systolic blood 132 mm[Hg] 132 mm[Hg] [facility] pressure [facility] Body mass index 36.2 kg/m2 36.2 kg/m2 [facility] (BMI) [Ratio] [facility] [address] Body [...] Charles Physician) Body height 67 in [facility] Charles Phys[facility]) Body weight 237 lb [...] Charles Physician) Body height 67 in [facility] Charles Phys[facility]) Body weight 237 lb [...] /min [facility] (Ammir Charles Physician) Body temperature 36.287823 36.755069 [facility] Respiratory rate 18 /min 18 /min [facility] Heart rate 92 /min 92 /min [facility] Diastolic blood 98 mm[Hg] 98 mm[Hg] [facility] Systolic blood 155 mm[Hg] 155 mm[Hg] [facility] Body weight 100.639255 100.454979 kg [facility] Measured kg [facility] Body temperature 36.723318 36.423744 [facility] Respiratory rate 19 /min 19 /min [facility] Oxygen saturation 97 % 97 % [facility] Arterial blood [facility] by Pulse oximetry Heart rate 90 /min 90 /min [facility] Body height 170.461963 170.377163 cm [facility] Diastolic blood 84 mm[Hg] 84 mm[Hg] [facility] pressure [facility] Systolic blood 141 mm[Hg] 141 mm[Hg] [facility] Body mass index 34.5 kg/m2 34.5 kg/m2 [facility] (BMI) [Ratio] [facility] Body temperature 36.953284 36.117662 [facility] Respiratory rate 17 /min 17 /min [facility] Oxygen saturation 99 % 99 % [facility] Arterial blood [facility] by Pulse oximetry Heart rate 88 /min 88 /min [facility] Diastolic blood 95 mm[Hg] 95 mm[Hg] [facility] Systolic blood 143 mm[Hg] 143 mm[Hg] [facility] Respiratory rate 18 /min 18 /min [facility] Oxygen saturation 96 % 96 % [facility] blood [facility] by Pulse oximetry Heart rate 75 /min 75 /min [facility] Diastolic blood 75 mm[Hg] 75 mm[Hg] [facility] Systolic blood 144 mm[Hg] 144 mm[Hg] [facility] Body weight 106.711426 106.613109 kg [facility] Measured kg [facility] Body temperature 37.093518 37.876623 [facility] Respiratory rate 16 /min 16 /min [facility] Oxygen saturation 98 % 98 % [facility] blood [facility] by Pulse oximetry Heart rate 96 /min 96 /min [facility] Body height 170.641425 170.362460 [facility] Diastolic blood 92 mm[Hg] 92 mm[Hg] [facility] Systolic blood 153 mm[Hg] 153 mm[Hg] [facility] Body mass index 36.8 kg/m2 36.8 kg/m2 [facility] (BMI) [Ratio] Medical [facility] Body weight 104.837368 104.431045 kg [facility] Measured kg [facility] Body temperature 36.152944 36.870273 [facility] Respiratory rate 17 /min 17 /min [facility] Oxygen saturation 100 % 100 % [facility] Arterial blood [facility] by Pulse oximetry Heart rate 96 /min 96 /min [facility] Body height 170.937077 170.235840 cm [facility] Diastolic blood 88 mm[Hg] 88 mm[Hg] [facility] pressure [facility] Systolic blood 147 mm[Hg] 147 mm[Hg] [facility] Body mass index 36.0 kg/m2 36.0 kg/m2 [facility] (BMI) [Ratio] Medical [facility] Body temperature 36.110594 36.331087 [facility] Respiratory rate 17 /min 17 /min [facility] Oxygen saturation 100 % 100 % [facility] Arterial blood [facility] by Pulse oximetry Heart rate 90 /min 90 /min [facility] Diastolic blood 76 mm[Hg] 76 mm[Hg] [facility] Systolic blood 142 mm[Hg] 142 mm[Hg] [facility] Body height 67 in 67 in [facility] (Ammir Charles Physician) Body weight 233 lb [...] Physician) Body height 67 in 67 in [facility] (Ammir Charles Physician) Body weight 233 lb [...] /min [facility] (Ammir Charles Physician) Body temperature 37.859639 37.606709 [facility] Respiratory rate 18 /min 18 /min [facility] Oxygen saturation 99 % 99 % [facility] J [facility]ph[facility] in Arterial blood [facility] by Pulse oximetry Heart rate 82 /min 82 /min [facility] Diastolic blood 68 mm[Hg] 68 mm[Hg] [facility] pressure [facility] Systolic blood 134 mm[Hg] 134 mm[Hg] [facility] Body temperature 37.872407 37.389066 [facility] Respiratory rate 18 /min 18 /min [facility] Oxygen saturation 99 % 99 % [facility] J [facility]phs in Arterial blood [facility] by Pulse oximetry Heart rate 85 /min 85 /min [facility] Diastolic blood 70 mm[Hg] 70 mm[Hg] [facility] Systolic blood 131 mm[Hg] 131 mm[Hg] [facility] Body height 67 in 67 in [facility] [...] /min [facility] (Ammir Charles Physician) Body temperature 36.673895 36.759810 [facility] Respiratory rate 19 /min 19 /min [facility] Oxygen saturation 100 % 100 % [facility] in [facility] by Pulse oximetry Heart rate 81 /min 81 /min [facility] Diastolic blood 87 mm[Hg] 87 mm[Hg] [facility] Systolic blood 153 mm[Hg] 153 mm[Hg] [facility] Body weight 104.913286 104.057345 kg [facility] Measured kg [facility] Body temperature 36.052139 36.546330 [facility] Respiratory rate 17 /min 17 /min [facility] Oxygen saturation 98 % 98 % [facility] Arterial blood [facility] by Pulse oximetry Heart rate 90 /min 90 /min [facility] Body height 170.164326 170.883277 cm [facility] Diastolic blood 76 mm[Hg] 76 mm[Hg] [facility] Systolic blood 140 mm[Hg] 140 mm[Hg] [facility] Body mass index 36.0 kg/m2 36.0 kg/m2 [facility] (BMI) [Ratio] [facility] Body weight 104.915747 104.906102 kg [facility] Measured kg [facility] Body temperature 36.918654 36.728027 [facility] Respiratory rate 17 /min 17 /min [facility] Oxygen saturation 98 % 98 % [facility] Arterial blood [facility] by Pulse oximetry Heart rate 86 /min 86 /min [facility] Body height 170.723012 170.629817 cm [facility] Diastolic blood 65 mm[Hg] 65 mm[Hg] [facility] Systolic blood 110 mm[Hg] 110 mm[Hg] [facility] Body mass index 36.0 kg/m2 36.0 kg/m2 [facility] (BMI) [Ratio] [facility] Body temperature 37.200001 37.596768 [facility] Respiratory rate 20 /min 20 /min [facility] Oxygen saturation 99 % 99 % [facility] Arterial blood [facility] by Pulse oximetry Heart rate 85 /min 85 /min [facility] Diastolic blood 67 mm[Hg] 67 mm[Hg] [facility] Systolic blood 124 mm[Hg] 124 mm[Hg] [facility] Body temperature 36.193026 36.769001 [facility] Heart rate 91 /min 91 /min [facility] Body temperature 37.413046 37.193100 [facility] Respiratory rate 20 /min 20 /min [facility] Oxygen saturation 98 % 98 % [facility] Arterial blood [facility] by Pulse oximetry Heart rate 99 /min 99 /min [facility] Diastolic blood 84 mm[Hg] 84 mm[Hg] [facility] Systolic blood 148 mm[Hg] 148 mm[Hg] [facility] Body weight 105.807712 105.015611 kg [facility] Measured kg [facility] Body temperature 36.280395 36.037090 [facility] Respiratory rate 16 /min 16 /min [facility] Oxygen saturation 100 % 100 % [facility] Arterial blood [facility] by Pulse oximetry Heart rate 85 /min 85 /min [facility] Body height 170.434733 170.018531 cm [facility] Diastolic blood 73 mm[Hg] 73 mm[Hg] [facility] Systolic blood 132 mm[Hg] 132 mm[Hg] [facility] Body mass index 36.4 kg/m2 36.4 kg/m2 [facility] (BMI) [Ratio] Medical [facility] ter Body weight 104.857862 104.161268 kg [facility] Measured kg [facility] Body temperature 36.356369 36.258784 [facility] Respiratory rate 16 /min 16 /min [facility] Oxygen saturation 99 % 99 % [facility] blood [facility] by Pulse oximetry Heart rate 84 /min 84 /min [facility] Body height 170.844678 170.857682 cm [facility] Diastolic blood 84 mm[Hg] 84 mm[Hg] [facility] Systolic blood 147 mm[Hg] 147 mm[Hg] [facility] Body mass index 36.0 kg/m2 36.0 kg/m2 [facility] (BMI) [Ratio] Medical [facility] ter Body temperature 36.678941 36.988563 [facility] Respiratory rate 17 /min 17 /min [facility] Oxygen saturation 98 % 98 % [facility] blood [facility] by Pulse oximetry Heart rate 78 /min 78 /min [facility] Diastolic blood 76 mm[Hg] 76 mm[Hg] [facility] pressure [facility] Systolic blood 132 mm[Hg] 132 mm[Hg] [facility] Body temperature 36.597788 36.209053 [facility] Respiratory rate 17 /min 17 /min [facility] Oxygen saturation 100 % 100 % [facility] Tony osephs in [facility] by Pulse oximetry Heart rate 82 /min 82 /min [facility] Diastolic blood 78 mm[Hg] 78 mm[Hg] [facility] pressure [facility] Systolic blood 138 mm[Hg] 138 mm[Hg] [facility] Body weight 233 lb 233 lb MED[facility] [...] Physician) Respiratory rate 18 /min 18 /min [facility] Oxygen saturation 98 % 98 % [facility] J oseph[facility] in [facility] by Pulse oximetry Heart rate 80 /min 80 /min [facility] Diastolic blood 86 mm[Hg] 86 mm[Hg] [facility] Systolic blood 158 mm[Hg] 158 mm[Hg] [facility] Body temperature 36.980453 36.047846 [facility] Respiratory rate 18 /min 18 /min [facility] Oxygen saturation 98 % 98 % [facility] J osephs in Arterial blood [facility] by Pulse oximetry Heart rate 86 /min 86 /min [facility] Diastolic blood 97 mm[Hg] 97 mm[Hg] [facility] Systolic blood 158 mm[Hg] 158 mm[Hg] [facility] Body temperature 36.929909 36.266975 [facility] Respiratory rate 17 /min 17 /min [facility] Oxygen saturation 98 % 98 % [facility] Arterial blood [facility] by Pulse oximetry Heart rate 76 /min 76 /min [facility] Diastolic blood 76 mm[Hg] 76 mm[Hg] [facility] Systolic blood 142 mm[Hg] 142 mm[Hg] [facility] Body temperature 36.889161 36.062280 [facility]sh[facility] Respiratory rate 17 /min 17 /min [facility] Oxygen saturation 98 % 98 % [facility] Arterial blood [facility] by Pulse oximetry Heart rate 78 /min 78 /min [facility] Diastolic blood 85 mm[Hg] 85 mm[Hg] [facility] Systolic blood 145 mm[Hg] 145 mm[Hg] [facility] Systolic blood 110 mm[Hg] 110 mm[Hg] [facility] [...] /min [facility] (Ammir Charles Physician) Body weight 108.093246 108.759030 kg [facility] Measured kg [facility] Body temperature 36.807558 36.824398 [facility] Respiratory rate 20 /min 20 /min [facility] Oxygen saturation 100 % 100 % [facility] Tony garciahs in Arterial blood [facility] by Pulse oximetry Heart rate 92 /min 92 /min [facility] Body height [id number] 170.638901 cm [facility] Diastolic blood 76 mm[Hg] 76 mm[Hg] [facility] pressure [facility] Center Systolic blood 131 mm[Hg] 131 mm[Hg] [facility] pressure Medical Center Body mass index 37.2 kg/m2 37.2 kg/m2 [facility] (BMI) [Ratio] Medical [facility] Body height [...] blood 120 mm[Hg] 120 mm[Hg] MED[facility] (Am teteee pressure Charles Physician) Diastolic blood 70 mm[Hg] [...] Charles Physician) Body height in MEDGEN (Ammir Chalres Physician) Systolic blood 112 mm[Hg] 112 mm[Hg] [...] blood 112 mm[Hg] 112 mm[Hg] [facility] (Am teteee pressure Charles Physician) Diastolic blood 80 mm[Hg] [...] mm[Hg] 70 mm[Hg] MED[facility] (A mmir pressure Chalres Physician) Inhaled oxygen 98 % 98 % [...] % 98 % [facility] (Am teetee concentration Chrales Physician) Heart rate 94 /min 94 /min [...] blood 120 mm[Hg] 120 mm[Hg] MEDGEN (Am etetee pressure Charles Physician) Diastolic blood 70 mm[Hg] [...] mm[Hg] 122 mm[Hg] MEDGEN (Am teetee pressure Cahrles Physician) Diastolic blood 70 mm[Hg] 70 mm[Hg] [...] Data Source (s) Tylenol Infusion (AD 10/22/2019 [facility] 11:46:31 PM EDT [facility] Benadryl (Diphenhyd 01/15/2019 [facility] 01:20:47 PM EST [facility] Toradol 30 mg/mL (Ke 01/15/2019 [facility] 01:20:38 PM EST [facility] Tylenol (Acetaminoph 01/15/2019 [facility] 01:20:08 PM [facility] Reglan (Metocloprami 01/15/2019 [facility] 01:19:59 PM [facility] 0.9% NaCl IV 01/06/2019 [facility]ty 08:24:46 AM [facility] Valium (Diazepam) Or 01/06/2019 [facility] 08:24:32 AM [facility] Toradol 30 mg/mL (Ke 01/06/2019 [facility] 08:23:40 AM [facility] Diphenhydramine (Nirav 01/06/2019 [facility] 08:22:46 AM [facility] Reglan (Metocloprami 01/06/2019 [facility] 08:22:38 AM [facility] Prednisone 20 MG Oral [facility] Ketorolac Tromethamine 10 Sa int [facility] Oral [facility] Ketorolac Tromethamine 10 int [facility] MG Oral [facility] rizatriptan 10 MG Oral [facility] Tablet [place]
[2019-11-13 20:28] LABS: ANION GAP 8 MMOL/L (8-16); BLOOD UREA NITROGEN 11.7 mg/dL (7-18); CALCIUM 8.6 mg/dL (8.5-10.1); CHLORIDE 108 mmol/L (98-107); CO2 22 mmol/L (21-32); CREATININE 0.8 mg/dL (0.55-1.3); GLUCOSE,RANDOM 84 mg/dL (74-106); POTASSIUM 4.3 mmol/L (3.5-5.1); SODIUM 138 mmol/L (136-145)
--- NOTE | 2019-11-13 20:53 | PN ---
Teaching Attending Note Name of Resident: Anisa Tian ATTENDING PHYSICIAN STATEMENT I saw and evaluated the patient. I reviewed the resident's note and discussed the case with the resident. I agree with the resident's findings and plan as documented. SUBJECTIVE: Patient seen and examined at bedside, admitted for episode of CP which she explains is "constant" was sent from PCP office. Had similar presentation last year where full cardiac workup including stress test was done and was unremarkable for ischemia. VSS. OBJECTIVE: GA comfortable, AAox3 HEENT NC/AT, no JVD, neck supple, MMM Chest CTAB, no crackles or wheezing, no TTP CVS s1, S2+, no m/r/g, RRR Abd morbidly obese, soft, NT, BS+ Ext no LE edema, no calf tenderness Vital Signs (72 hours) 11/13/19 11/13/19 14:40 15:15 Temperature 98.0 F Pulse Rate 88 Pulse Rate [ 88 Right side Standing] Pulse Rate [ 84 Right side Supine] Respiratory 18 Rate Blood Pressure 123/73 Blood Pressure 129/75 [Right side Standing] Blood Pressure 127/76 [Right side Supine] O2 Sat by Pulse 100 Oximetry (%) Laboratory Results - last 24 hr 11/13/19 11/13/19 11/13/19 15:11 15:11 18:50 WBC 9.2 RBC 4.26 Hgb 12.0 Hct 36.5 MCV 85.6 MCH 28.2 MCHC 32.9 RDW 15.4 Plt Count 327 MPV 8.3 D Absolute Neuts (auto) 5.1 Neutrophils % 55.4 Lymphocytes % 35.9 Monocytes % 7.3 Eosinophils % 0.8 Basophils % 0.6 Nucleated RBC % 0 Sodium 139 138 Potassium 4.1 4.3 Chloride 106 108 H Carbon Dioxide 27 22 Anion Gap 6 L 8 BUN 11.9 11.7 Creatinine 1.0 0.8 Est GFR (CKD-EPI)AfAm 76.07 99.63 Est GFR (CKD-EPI)NonAf 65.64 85.96 Random Glucose 86 84 Calcium 9.3 8.6 Total Bilirubin 0.2 AST 17 ALT 18 Alkaline Phosphatase 93 Creatine Kinase 138 Troponin I < 0.02 < 0.02 B-Natriuretic Peptide 49.2 Total Protein 7.8 Albumin 3.6 Home Medications Medication Instructions Recorded Amlodipine Besylate [Norvasc -] 5 mg PO DAILY 11/13/19 Cyclobenzaprine HCl 5 mg PO PRN PRN 11/13/19 Current Medications Generic Name Dose Route Start Last Admin Trade Name Freq PRN Reason Stop Dose Admin Acetaminophen 650 mg 11/13/19 18:43 Tylenol - PO Q6H PRN Fever Or Pain Level 1 - 5 Atorvastatin Calcium 40 mg 11/13/19 22:00 Lipitor - PO HS AMERICA Enoxaparin Sodium 40 mg 11/14/19 10:00 Lovenox - SQ DAILY [place] Metoprolol Tartrate 12.5 mg 11/13/19 22:00 Lopressor - PO BID AMERICA ASSESSMENT AND PLAN: 49 F Atypical chest pain r/o ACS HTN (newly diagnosed) Morbid obesity ?Psychosomatic disorder HLD Plan: Trend trops x3, add BB for palpitations, continue overnight tele Cont. statin for HLD Advise relaxation techniques, being patient had normal stress testing last year, low suspicion for CAD/ischemia Add nitropaste PRN if CP recurs and see if it helps DVT ppx: Lovenox SC
[2019-11-13 21:46] LABS: EPI CELLS 14 /uL (0-25.1); HYALINE CASTS 0 /uL (0-3.1); URINE APPEARANCE CLEAR; URINE BACTERIA 956 /uL (0-1359); URINE BILIRUBIN NEGATIVE (NEGATIVE); URINE COLOR YELLOW; URINE GLUCOSE (UA) NEGATIVE (NEGATIVE); URINE KETONE NEGATIVE (NEGATIVE); URINE LEUK ESTERASE 3+ (NEGATIVE); URINE NITRITE NEGATIVE (NEGATIVE); URINE PROTEIN NEGATIVE (NEGATIVE); URINE UROBILINOGEN 0.2 mg/dL (0.2-1.0); URINE WBC 146 /uL (0-25.8)
[2019-11-13] MEDS ORDERED: ATORVASTATIN CA 40 MG TABLET (FP) PO SCH (22:00)
[2019-11-13 22:54] LABS: URINE RBC 17.7 /uL (0-23.9)
[2019-11-13] MEDS: METOPROLOL TARTRATE 25 MG TABLET (FP) PO SCH (23:42)
[2019-11-14 04:06] VITALS: BMI 36.6
[2019-11-14 08:07] LABS: HEMATOCRIT 34.3 % (32.4-45.2); HEMOGLOBIN 11.2 GM/dL (10.7-15.3); MCH 27.6 pg (25.7-33.7); MCHC 32.6 g/dl (32.0-36.0); MEAN CELL VOLUME 84.5 fl (80-96); MEAN PLT VOLUME 8.5 fl (7.5-11.1); PLATELET COUNT 306 K/MM3 (134-434); RBC 4.05 M/mm3 (3.60-5.2); RDW 15.5 % (11.6-15.6); WHITE BLOOD COUNT 7.1 K/mm3 (4.0-10.0)
[2019-11-14 08:38] LABS: CHOLESTEROL 185 mg/dL (50-200); HDL CHOLESTEROL 55 mg/dL (40-60); LDL CHOLESTEROL (ONLY SJRH) 117 mg/dL (5-100); TRIGLYCERIDES 76 mg/dL (0-150)
[2019-11-14 09:20] LABS: MAGNESIUM 2.2 mg/dL (1.8-2.4); PHOSPHOROUS 3.8 mg/dL (2.5-4.9)
--- NOTE | 2019-11-14 09:51 | EKG ---
Test Reason : Blood Pressure : / mmHG Vent. Rate : 083 BPM Atrial Rate : 083 BPM P-R Int : 182 ms QRS Dur : 086 ms QT Int : 382 ms P-R-T Axes : 059 063 050 degrees QTc Int : 448 ms NORMAL SINUS RHYTHM POSSIBLE LEFT ATRIAL ENLARGEMENT BORDERLINE ECG WHEN COMPARED WITH ECG OF 15-OCT-2019 01:24, ABERRANT CONDUCTION IS NO LONGER PRESENT Confirmed by DANIEL ARAUJO, KENAN ([id number]) on 11/14/2019 9:51:17 AM Referred By: Confirmed By:KENAN SANCHEZ MD
--- NOTE | 2019-11-14 09:59 | ECHO ---
Name: RAZ NOBLE Exam:Adult Echocardiogram Study Date: 11/14/2019 09:04 AM Age: 49 yrs Height: 67 in Weight: 235 lb BSA: 2.2 m2 MMode/2D Measurements & Calculations IVSd: 0.87 cm Ao root diam: 2.3 cm LVIDd: 3.7 cm LA dimension: 3.5 cm LVIDs: 2.6 cm ACS: 1.7 cm LVPWd: 1.3 cm LVPWs: 1.4 cm EDV(Teich): 59.4 ml ESV(Teich): 23.8 ml LVOT diam: 1.7 cm RV S Yayo: 9.2 cm/sec Doppler Measurements & Calculations MV E max yayo: 87.9 cm/sec Ao V2 max: 118.0 cm/sec MV A max yayo: 61.2 cm/sec Ao max P.6 mmHg MV E/A: 1.4 MV dec time: 0.21 sec KENDRA(V,D): 2.0 cm2 LV V1 max P.2 mmHg TR max yayo: 199.1 cm/sec LV V1 max: 102.2 cm/sec TR max P.9 mmHg PA V2 max: 122.6 cm/sec Med Peak E' Yayo: 11.3 cm/sec PA max P.1 mmHg Med E/e': 7.8 Lat Peak E' Yayo: 13.9 cm/sec Lat E/e': 6.3 Procedure A complete two-dimensional transthoracic echocardiogram was performed (2D, M-mode, Doppler and color flow Doppler). Left Ventricle The left ventricular size, thickness and function are normal. Ejection Fraction = 60-65%. The left ve ntricular wall motion is normal. Right Ventricle The right ventricle is normal in size and function. Atria Normal left and right atrial size and function. Mitral Valve There is no mitral regurgitation noted. Tricuspid Valve There is trace tricuspid regurgitation. There was insufficient TR detected to calculate RV systolic p ressure. Aortic Valve No hemodynamically significant valvular aortic stenosis. No aortic regurgitation is present. Pulmonic Valve There is no pulmonic valvular regurgitation. Great Vessels The aortic root is normal size. Pericardium/Pleura There is no pericardial effusion. Interpretation Summary The left ventricular size, thickness and function are normal The right ventricle is normal in size and function. There is trace tricuspid regurgitation. MD Zane Tang 11/14/2019 09:58 AM
[2019-11-14] MEDS ORDERED: ENOXAPARIN NA (PORCINE) 40 MG/0.4 ML DISP.SYRIN SQ SCH (10:00)
[2019-11-14] MEDS ORDERED: amLODIPine BESYLATE 5 MG TABLET (FP) PO SCH (10:00)
[2019-11-14] MEDS ORDERED: REGADENOSON 0.4 MG/5 ML PRE-FILLED SYRINGE IVPUSH ONE ×2 (10:15→10:42)
[2019-11-14] MEDS: METOPROLOL TARTRATE 25 MG TABLET (FP) PO SCH (14:16)
--- NOTE | 2019-11-14 15:12 | CON.CARD ---
Cardiology Consult (text) - Consultation Consultation Note: cc: cp hpi: 49 f hx htn, hld, pericarditis here with cp. Was sitting at pmd office yesterday and felt sharp left cp. No sob palps dizzy loc pnd orthopnea le edema. CP has been intermittent past few mos, not exertional. Feels well now. pmh: per hpi psh: none social: ex tob fam: no premature cad scd ros: per hpi; all others nl meds: Ambulatory Orders Amlodipine Besylate [Norvasc -] 5 mg PO DAILY 11/13/19 Cyclobenzaprine HCl 5 mg PO PRN PRN 11/13/19 Prochlorperazine Maleate [Compazine] 10 mg PO DAILY PRN 11/13/19 pe: Vital Signs Period Temp Pulse Resp BP Sys/Guzmán Pulse Ox Last 24 Hr 98.0 F-98.2 F 69-88 18-20 110-137/64-93 97-99 nad no jvd rrr s1s2 no mrg cta bl nl eff aao3 no le e/c/c abd nt nd pos ns no jaundice diaphoresis pos dp pt no carotid bruits Laboratory Last Values WBC 7.1 K/mm3 (4.0-10.0) 11/14/19 05:55 RBC 4.05 M/mm3 (3.60-5.2) 11/14/19 05:55 Hgb 11.2 GM/dL (10.7-15.3) 11/14/19 05:55 Hct 34.3 % (32.4-45.2) 11/14/19 05:55 MCV 84.5 fl (80-96) 11/14/19 05:55 MCH 27.6 pg (25.7-33.7) 11/14/19 05:55 MCHC 32.6 g/dl (32.0-36.0) 11/14/19 05:55 RDW 15.5 % (11.6-15.6) 11/14/19 05:55 Plt Count 306 K/MM3 (134-434) 11/14/19 05:55 MPV 8.5 fl (7.5-11.1) 11/14/19 05:55 Absolute Neuts (auto) 5.1 K/mm3 (1.5-8.0) 11/13/19 15:11 Neutrophils % 55.4 % (42.8-82.8) 11/13/19 15:11 Lymphocytes % 35.9 % (8-40) 11/13/19 15:11 Monocytes % 7.3 % (3.8-10.2) 11/13/19 15:11 Eosinophils % 0.8 % (0-4.5) 11/13/19 15:11 Basophils % 0.6 % (0-2.0) 11/13/19 15:11 Nucleated RBC % 0 % (0-0) 11/13/19 15:11 Sodium 138 mmol/L (136-145) 11/13/19 18:50 Potassium 4.3 mmol/L (3.5-5.1) 11/13/19 18:50 Chloride 108 mmol/L (98-107) H 11/13/19 18:50 Carbon Dioxide 22 mmol/L (21-32) 11/13/19 18:50 Anion Gap 8 MMOL/L (8-16) 11/13/19 18:50 BUN 11.7 mg/dL (7-18) 11/13/19 18:50 Creatinine 0.8 mg/dL (0.55-1.3) 11/13/19 18:50 Est GFR (CKD-EPI)AfAm 99.63 11/13/19 18:50 Est GFR (CKD-EPI)NonAf 85.96 11/13/19 18:50 Random Glucose 84 mg/dL (74-106) 11/13/19 18:50 Hemoglobin A1c % 5.6 % (4.2-6.3) 11/14/19 05:55 Calcium 8.6 mg/dL (8.5-10.1) 11/13/19 18:50 Phosphorus 3.8 mg/dL (2.5-4.9) 11/14/19 05:55 Magnesium 2.2 mg/dL (1.8-2.4) 11/14/19 05:55 Total Bilirubin 0.2 mg/dL (0.2-1) 11/13/19 15:11 AST 17 U/L (15-37) 11/13/19 15:11 ALT 18 U/L (13-61) 11/13/19 15:11 Alkaline Phosphatase 93 U/L (45-117) 11/13/19 15:11 Creatine Kinase 138 U/L (26-192) 11/13/19 15:11 Troponin I < 0.02 ng/ml (0.00-0.05) 11/13/19 18:50 B-Natriuretic Peptide 49.2 pg/ml (5-125) 11/13/19 15:11 Total Protein 7.8 g/dl (6.4-8.2) 11/13/19 15:11 Albumin 3.6 g/dl (3.4-5.0) 11/13/19 15:11 Triglycerides 76 mg/dL (0-150) 11/14/19 05:55 Cholesterol 185 mg/dL (50-200) 11/14/19 05:55 Total LDL Cholesterol 117 mg/dL (5-100) H 11/14/19 05:55 HDL Cholesterol 55 mg/dL (40-60) 11/14/19 05:55 TSH 2.35 uIU/ml (0.358-3.74) 11/14/19 05:55 Urine Color Yellow 11/13/19 21:00 Urine Appearance Clear 11/13/19 21:00 Urine pH 7.0 (5.0-8.0) 11/13/19 21:00 Ur Specific [place] 1.004 (1.010-1.035) L 11/13/19 21:00 Urine Protein Negative (NEGATIVE) 11/13/19 21:00 Urine Glucose (UA) Negative (NEGATIVE) 11/13/19 21:00 Urine Ketones Negative (NEGATIVE) 11/13/19 21:00 Urine Blood Negative (NEGATIVE) 11/13/19 21:00 Urine Nitrite Negative (NEGATIVE) 11/13/19 21:00 Urine Bilirubin Negative (NEGATIVE) 11/13/19 21:00 Urine Urobilinogen 0.2 mg/dL (0.2-1.0) 11/13/19 21:00 Ur Leukocyte Esterase 3+ (NEGATIVE) H 11/13/19 21:00 Urine WBC (Auto) 146 /uL (0-25.8) 11/13/19 21:00 Urine RBC (Auto) 17.7 /uL (0-23.9) 11/13/19 21:00 Urine Casts (Auto) 0 /uL (0-3.1) 11/13/19 21:00 U Epithel Cells (Auto) 14 /uL (0-25.1) 11/13/19 21:00 Urine Bacteria (Auto) 956 /uL (0-1359) 11/13/19 21:00 COVID-19 (CARMEN) Not detected (Not Detected) 11/13/19 18:50 ecg: sr, nl intervals, no ischemic changes cxr: clear tele: sr a/p: 49 f hx htn, hld, pericarditis here with cp. cp: -atypical symptom, resolved -no signs acs or chf -echo here unremarkable -mibi today shows no ischemia -likely non cardiac chest pain htn: -cont home meds hld: -cont statin hx of pericarditis: -no evidence of recurrent pericarditis here -echo and ecg unremarkable cardiac cowan stable for dc
[2019-11-14 15:26] VITALS: BP 120/74; PULSE 74; TEMP 98
--- NOTE | 2019-11-14 15:42 | DS ---
Physical Examination Vital Signs: Vital Signs Temperature 98.0 F 11/14/19 15:00 Pulse Rate 74 11/14/19 15:00 Respiratory Rate 11/14/19 15:00 Blood Pressure 120/74 11/14/19 15:00 O2 Sat by Pulse Oximetry (%) 98 11/14/19 09:00 Findings/Remarks: STRESS TEST NEGATIVE Constitutional: Yes: No Distress Cardiovascular: Yes: Regular Rate and Rhythm Respiratory: Yes: WNL Gastrointestinal: Yes: Abdomen, Obese Neurological: Yes: Pre-Existing Deficit Labs: CBC, BMP 11/14/19 05:55 11/13/19 18:50 Discharge Summary Problems reviewed: Yes Reason For Visit: CHEST PAIN Procedures: Principal: STRESS TEST Hospital Course: ADMITTED CARDIAC WORKUP, STRESS TEST NEGATIVE ATYPICAL CHEST PAIN Condition: Improved - Instructions Diet, Activity, Other Instructions: OUTPATIENT F/U DR SOTO IN 2 WEEKS Referrals: Chantel Soto MD [Primary Care Provider] - Disposition: HOME - Home Medications Comprehensive Discharge Medication List: Ambulatory Orders Amlodipine Besylate [Norvasc -] 5 mg PO DAILY 11/13/19 Cyclobenzaprine HCl 5 mg PO PRN PRN 11/13/19 Prochlorperazine Maleate [Compazine] 10 mg PO DAILY PRN 11/13/19
== END 2019-11-14 16:35 | disposition home or self-care (01) ==
LOC: JER 14:37 → INTOOBSV 17:03 → JERBED 17:03 → J4W 23:23
PROVIDERS: ATTEND Family Medicine
PROC: 3E033GC Introduction of Other Therapeutic Substance into Peripheral Vein, Percutaneous Approach (ICD-10-PCS; principal; 2019-11-13)
PROC: 3E013GC Introduction of Other Therapeutic Substance into Subcutaneous Tissue, Percutaneous Approach (ICD-10-PCS; 2019-11-13)
DX: R07.89 Other chest pain (principal); I10 Essential (primary) hypertension; E78.5 Hyperlipidemia, unspecified; K21.9 Gastro-esophageal reflux disease without esophagitis; E66.01 Morbid (severe) obesity due to excess calories; Z87.19 Personal history of other diseases of the digestive system
CPT/HCPCS: 36415; 71046-TC-FY; 78452-TC; 80048; 80053; 80061; 81003; 82550; 83036; 83721; 83735; 83880; 84100; 84443; 84484; 85025; 85027; 93005; 93010; 93017; 93306-TC; 96372; 96374; 99285-25; A9502; G0378; U0003

== ENCOUNTER 2020-01-10 11:48 | Emergency (ER) | payer OTHER ==
[2020-01-10 12:16] VITALS: BP 111/77; PULSE 82; TEMP 98; BMI 36.0
[2020-01-10] MEDS ORDERED: KETOROLAC TROMETHAMINE 60 MG/2 ML VIAL IM ONE (12:46)
[2020-01-10] MEDS ORDERED: KETOROLAC TROMETHAMINE 60 MG/2 ML VIAL ONE (13:30)
== END 2020-01-10 13:54 | disposition home or self-care (01) ==
LOC: JERFT 11:48
PROC: 3E0233Z Introduction of Anti-inflammatory into Muscle, Percutaneous Approach (ICD-10-PCS; principal; 2020-01-10)
PROC: 3E023NZ Introduction of Analgesics, Hypnotics, Sedatives into Muscle, Percutaneous Approach (ICD-10-PCS; 2020-01-10)
DX: G43.909 Migraine, unspecified, not intractable, without status migrainosus (principal)
CPT/HCPCS: 99284-25

== ENCOUNTER 2020-01-26 10:39 | Emergency (ER) | payer OTHER ==
[2020-01-26 10:48] VITALS: BP 116/77; PULSE 80; TEMP 98; BMI 36.0
[2020-01-26] MEDS ORDERED: KETOROLAC TROMETHAMINE 60 MG/2 ML VIAL ONE (11:40)
[2020-01-26] MEDS ORDERED: KETOROLAC TROMETHAMINE 60 MG/2 ML VIAL IM ONE (11:40)
== END 2020-01-26 11:45 | disposition home or self-care (01) ==
LOC: JER 10:39 → JERFT 10:39
PROC: 3E0233Z Introduction of Anti-inflammatory into Muscle, Percutaneous Approach (ICD-10-PCS; principal; 2020-01-26)
DX: G43.009 Migraine without aura, not intractable, without status migrainosus (principal)
CPT/HCPCS: 99284-25

== ENCOUNTER 2020-01-27 15:55 | Emergency (ER) | payer OTHER ==
[2020-01-27 16:01] VITALS: BMI 36.0
[2020-01-27] MEDS ORDERED: METOCLOPRAMIDE HCL INJECTION 10 MG/2 ML VIAL IVPB ONE (17:10)
[2020-01-27] MEDS ORDERED: METOCLOPRAMIDE HCL INJECTION 10 MG/2 ML VIAL ONE (17:22)
[2020-01-27 17:38] LABS: BASO % 0.6 % (0-2.0); EOS % 0.3 % (0-4.5); HEMATOCRIT 37.9 % (32.4-45.2); HEMOGLOBIN 12.2 GM/dL (10.7-15.3); LYMPH % 26.1 % (8-40); MCH 27.2 pg (25.7-33.7); MCHC 32.1 g/dl (32.0-36.0); MEAN CELL VOLUME 84.9 fl (80-96); MEAN PLT VOLUME 7.7 fl (7.5-11.1); MONO % 4.4 % (3.8-10.2); NEUT % 68.6 % (42.8-82.8); PLATELET COUNT 345 K/MM3 (134-434); RBC 4.47 M/mm3 (3.60-5.2); RDW 15.8 % (11.6-15.6); WHITE BLOOD COUNT 9.2 K/mm3 (4.0-10.0)
[2020-01-27 17:47] LABS: EPI CELLS >36 /uL (0-25.1); HYALINE CASTS 1 /uL (0-3.1); PH,URINE 5.5 (5.0-8.0); URINE APPEARANCE CLOUDY; URINE BACTERIA 1362 /uL (0-1359); URINE BILIRUBIN NEGATIVE (NEGATIVE); URINE COLOR YELLOW; URINE GLUCOSE (UA) NEGATIVE (NEGATIVE); URINE KETONE NEGATIVE (NEGATIVE); URINE LEUK ESTERASE 1+ (NEGATIVE); URINE NITRITE NEGATIVE (NEGATIVE); URINE PROTEIN NEGATIVE (NEGATIVE); URINE RBC 13 /uL (0-23.9); URINE UROBILINOGEN 0.2 mg/dL (0.2-1.0); URINE WBC 74 /uL (0-25.8)
[2020-01-27 17:50] LABS: PROTHROMBIN TIME (PATIENT) 12.1 SEC (9.7-13.0)
[2020-01-27 17:54] LABS: CHLORIDE 105 mmol/L (98-107); POTASSIUM 4.1 mmol/L (3.5-5.1); SODIUM 137 mmol/L (136-145)
[2020-01-27 17:55] LABS: CALCIUM 9.4 mg/dL (8.5-10.1)
[2020-01-27 17:56] LABS: ALBUMIN 3.8 g/dl (3.4-5.0); ANION GAP 7 MMOL/L (8-16); BLOOD UREA NITROGEN 9.2 mg/dL (7-18); CO2 25 mmol/L (21-32); GLUCOSE,RANDOM 98 mg/dL (74-106)
[2020-01-27 17:59] LABS: CREATININE 0.8 mg/dL (0.55-1.3); SGOT/AST 18 U/L (15-37); SGPT/ALT 19 U/L (13-61)
[2020-01-27 18:01] LABS: BILIRUBIN,TOTAL 0.7 mg/dL (0.2-1); TOT PROT 8.1 g/dl (6.4-8.2)
[2020-01-27 18:02] LABS: ALK PHOS 99 U/L (45-117)
[2020-01-27 20:17] VITALS: BP 129/86; PULSE 86
== END 2020-01-27 20:17 | disposition home or self-care (01) ==
LOC: JER 15:55
PROC: 3E033GC Introduction of Other Therapeutic Substance into Peripheral Vein, Percutaneous Approach (ICD-10-PCS; principal; 2020-01-27)
DX: G44.201 Tension-type headache, unspecified, intractable (principal); N30.00 Acute cystitis without hematuria
CPT/HCPCS: 36415; 70450-TC; 80053; 81003; 84484; 85025; 85610; 85730; 93005; 93010; 99285-25

== ENCOUNTER 2020-03-16 15:05 | Emergency (ER) | payer OTHER ==
[2020-03-16 15:16] VITALS: BP 134/84; PULSE 104; TEMP 98.9; BMI 36.0
== END 2020-03-16 18:29 | disposition home or self-care (01) ==
LOC: JER 15:05
DX: J06.9 Acute upper respiratory infection, unspecified (principal); Z11.52 Encounter for screening for COVID-19
CPT/HCPCS: 71046-TC-FY; 87804; 99284-25; C9803; U0003

== ENCOUNTER 2020-06-25 08:41 | Emergency (ER) | payer OTHER ==
[2020-06-25 08:52] VITALS: BP 137/74; PULSE 89; TEMP 98.4; BMI 36.0
[2020-06-25] MEDS ORDERED: ACETAMINOPHEN 325 MG TABLET (FP) PO ONE (09:12)
[2020-06-25] MEDS ORDERED: ACETAMINOPHEN 500 MG TABLET (FP) ONE (09:19)
== END 2020-06-25 11:50 | disposition home or self-care (01) ==
LOC: JER 08:41
DX: M79.605 Pain in left leg (principal)
CPT/HCPCS: 93971-TC; 99284-25

== ENCOUNTER 2020-07-16 06:07 | Emergency (ER) | payer OTHER ==
[2020-07-16 06:23] VITALS: TEMP 98.6; BMI 39.1
[2020-07-16] MEDS ORDERED: ACETAMINOPHEN 325 MG TABLET (FP) PO ONE (06:33)
[2020-07-16] MEDS ORDERED: ACETAMINOPHEN 325 MG TABLET (FP) ONE (06:43)
[2020-07-16 07:09] LABS: BASO % 0.6 % (0-2.0); EOS % 0.9 % (0-4.5); HEMATOCRIT 35.4 % (32.4-45.2); HEMOGLOBIN 11.6 GM/dL (10.7-15.3); LYMPH % 31.6 % (8-40); MCH 27.7 pg (25.7-33.7); MCHC 32.7 g/dl (32.0-36.0); MEAN CELL VOLUME 84.7 fl (80-96); MONO % 5.4 % (3.8-10.2); NEUT % 61.5 % (42.8-82.8); PLATELET COUNT 321 K/MM3 (134-434); RBC 4.18 M/mm3 (3.60-5.2); RDW 15.1 % (11.6-15.6); WHITE BLOOD COUNT 6.9 K/mm3 (4.0-10.0)
[2020-07-16 07:19] LABS: INR 1.04 (0.83-1.09); PROTHROMBIN TIME (PATIENT) 12.6 SEC (9.7-13.0)
[2020-07-16 07:21] LABS: ACTIVATED PTT 28.7 SECONDS (25.2-36.5)
[2020-07-16 07:35] LABS: CHLORIDE 108 mmol/L (98-107); SODIUM 140 mmol/L (136-145)
[2020-07-16 07:37] LABS: CALCIUM 8.9 mg/dL (8.5-10.1)
[2020-07-16 07:38] LABS: ALBUMIN 3.4 g/dl (3.4-5.0); ANION GAP 6 MMOL/L (8-16); BLOOD UREA NITROGEN 10.6 mg/dL (7-18); CO2 26 mmol/L (21-32); GLUCOSE,RANDOM 101 mg/dL (74-106)
[2020-07-16 07:41] LABS: CREATININE 0.7 mg/dL (0.55-1.3); SGOT/AST 17 U/L (15-37); SGPT/ALT 17 U/L (13-61)
[2020-07-16 07:43] LABS: BILIRUBIN,TOTAL 0.4 mg/dL (0.2-1); TOT PROT 7.4 g/dl (6.4-8.2)
[2020-07-16 07:44] LABS: ALK PHOS 101 U/L (45-117)
[2020-07-16 07:46] LABS: N-TERMINAL BNP 68.5 pg/ml (5-125)
[2020-07-16] MEDS ORDERED: LIDOCAINE VISCOUS 2% ORAL/TOP 20 ML UNIT-DOSE CUP MM ONE (08:08)
[2020-07-16] MEDS ORDERED: FAMOTIDINE 20 MG/50 ML IVPB 20 MG/50 ML MG IVPB ONE ×2 (08:08→08:42)
[2020-07-16] MEDS ORDERED: MAG HYDROX/AL HYDROX/SIMETH 30 ML UNIT-DOSE CUP PO ONE (08:08)
[2020-07-16] MEDS ORDERED: LIDOCAINE VISCOUS 2% ORAL/TOP 20 ML UNIT-DOSE CUP ONE (08:41)
[2020-07-16] MEDS ORDERED: MAG HYDROX/AL HYDROX/SIMETH 30 ML UNIT-DOSE CUP ONE (08:42)
[2020-07-16 09:39] VITALS: BP 165/74; PULSE 79
== END 2020-07-16 09:39 | disposition home or self-care (01) ==
LOC: JER 06:07
PROC: 3E033NZ Introduction of Analgesics, Hypnotics, Sedatives into Peripheral Vein, Percutaneous Approach (ICD-10-PCS; principal; 2020-07-16)
DX: K21.9 Gastro-esophageal reflux disease without esophagitis (principal); R07.89 Other chest pain; R60.9 Edema, unspecified
CPT/HCPCS: 36415; 71046-TC-FY; 80053; 82550; 83880; 84484; 84703; 85025; 85610; 85730; 93005; 93010; 93970-TC; 99284-25

== ENCOUNTER 2020-07-24 15:57 | Observation (INO) | payer OTHER ==
[2020-07-24] MEDS ORDERED: MAG HYDROX/AL HYDROX/SIMETH 30 ML UNIT-DOSE CUP PO ONE (17:56)
[2020-07-24] MEDS ORDERED: FAMOTIDINE 20 MG TABLET PO ONE (17:56)
[2020-07-24] MEDS ORDERED: MAG HYDROX/AL HYDROX/SIMETH 30 ML UNIT-DOSE CUP ONE (18:37)
[2020-07-24] MEDS ORDERED: FAMOTIDINE 20 MG TABLET ONE (18:37)
[2020-07-24 18:57] LABS: BASO % 0.7 % (0-2.0); EOS % 0.3 % (0-4.5); HEMATOCRIT 38.4 % (32.4-45.2); HEMOGLOBIN 12.5 GM/dL (10.7-15.3); LYMPH % 24.5 % (8-40); MCH 27.9 pg (25.7-33.7); MCHC 32.6 g/dl (32.0-36.0); MEAN CELL VOLUME 85.6 fl (80-96); MEAN PLT VOLUME 8.8 fl (7.5-11.1); MONO % 4.9 % (3.8-10.2); NEUT % 69.6 % (42.8-82.8); PLATELET COUNT 336 K/MM3 (134-434); RBC 4.49 M/mm3 (3.60-5.2); RDW 14.8 % (11.6-15.6); WHITE BLOOD COUNT 8.7 K/mm3 (4.0-10.0)
[2020-07-24 19:07] LABS: INR 1.06 (0.83-1.09)
[2020-07-24 19:17] LABS: CHLORIDE 106 mmol/L (98-107); SODIUM 137 mmol/L (136-145)
[2020-07-24 19:19] LABS: ANION GAP 8 MMOL/L (8-16); BLOOD UREA NITROGEN 8.9 mg/dL (7-18); CALCIUM 9.9 mg/dL (8.5-10.1); CO2 24 mmol/L (21-32)
[2020-07-24 19:20] LABS: GLUCOSE,RANDOM 87 mg/dL (74-106)
[2020-07-24 19:22] LABS: SGOT/AST 20 U/L (15-37); SGPT/ALT 22 U/L (13-61)
[2020-07-24 19:23] LABS: CREATININE 0.9 mg/dL (0.55-1.3)
[2020-07-24 19:24] LABS: BILIRUBIN,TOTAL 0.4 mg/dL (0.2-1); TOT PROT 8.6 g/dl (6.4-8.2)
[2020-07-24 19:25] LABS: ALK PHOS 112 U/L (45-117)
[2020-07-24] MEDS ORDERED: ACETAMINOPHEN 325 MG TABLET (FP) PO ONE (19:50)
[2020-07-24] MEDS ORDERED: ACETAMINOPHEN 325 MG TABLET (FP) ONE (19:52)
[2020-07-24] MEDS ORDERED: ASPIRIN 81 MG CHEWABLE TABLETS PO ONE (20:10)
[2020-07-25 00:43] VITALS: BMI 37.5
[2020-07-25 07:33] LABS: BASO % 0.5 % (0-2.0); EOS % 1.5 % (0-4.5); HEMATOCRIT 36.2 % (32.4-45.2); HEMOGLOBIN 12.1 GM/dL (10.7-15.3); LYMPH % 36.6 % (8-40); MCH 28.6 pg (25.7-33.7); MCHC 33.4 g/dl (32.0-36.0); MEAN CELL VOLUME 85.5 fl (80-96); MEAN PLT VOLUME 8.1 fl (7.5-11.1); MONO % 6.9 % (3.8-10.2); NEUT % 54.5 % (42.8-82.8); PLATELET COUNT 309 K/MM3 (134-434); RBC 4.23 M/mm3 (3.60-5.2); RDW 14.5 % (11.6-15.6); WHITE BLOOD COUNT 6.2 K/mm3 (4.0-10.0)
[2020-07-25 08:02] LABS: ALBUMIN 3.4 g/dl (3.4-5.0); CALCIUM 8.7 mg/dL (8.5-10.1)
[2020-07-25 08:03] LABS: MAGNESIUM 2.2 mg/dL (1.8-2.4)
[2020-07-25 08:06] LABS: CREATININE 0.8 mg/dL (0.55-1.3); TOT PROT 7.4 g/dl (6.4-8.2)
[2020-07-25 08:07] LABS: BILIRUBIN,TOTAL 0.5 mg/dL (0.2-1)
[2020-07-25] MEDS: ACETAMINOPHEN 500 MG TABLET (FP) PO PRN ×2 (09:21→18:16)
[2020-07-26 06:48] VITALS: TEMP 97.6
[2020-07-26 09:01] VITALS: BP 121/71; PULSE 67
== END 2020-07-26 12:41 | disposition home or self-care (01) ==
LOC: JER 15:57 → JERBED 18:20 → J4S 07-25 00:31
PROVIDERS: ADMIT Hospitalist; ATTEND Family Medicine
DX: R07.9 Chest pain, unspecified (principal); I10 Essential (primary) hypertension; E78.5 Hyperlipidemia, unspecified; K21.9 Gastro-esophageal reflux disease without esophagitis; E66.9 Obesity, unspecified; Z68.37 Body mass index [BMI] 37.0-37.9, adult; M54.5 Low back pain; G89.29 Other chronic pain; Z86.79 Personal history of other diseases of the circulatory system; Z87.891 Personal history of nicotine dependence
CPT/HCPCS: 36415; 71045-TC-FY; 80053; 83735; 84484; 84703; 85025; 85610; 85730; 93005; 93010; 99285-25; C9803; G0378; U0003; U0005

== ENCOUNTER 2020-08-10 17:26 | Emergency (ER) | payer OTHER ==
[2020-08-10 17:37] VITALS: BMI 36.8
[2020-08-10 19:25] LABS: BASO % 0.9 % (0-2.0); EOS % 0.8 % (0-4.5); HEMATOCRIT 38.3 % (32.4-45.2); HEMOGLOBIN 12.6 GM/dL (10.7-15.3); LYMPH % 33.9 % (8-40); MCH 27.3 pg (25.7-33.7); MCHC 32.9 g/dl (32.0-36.0); MEAN CELL VOLUME 83.2 fl (80-96); MEAN PLT VOLUME 8.8 fl (7.5-11.1); MONO % 4.8 % (3.8-10.2); NEUT % 59.6 % (42.8-82.8); PLATELET COUNT 313 10^3/uL (134-434); RDW 14.4 % (11.6-15.6); WHITE BLOOD COUNT 8.8 K/mm3 (4.0-10.0)
[2020-08-10 19:32] LABS: INR 1.08 (0.83-1.09)
[2020-08-10] MEDS ORDERED: amLODIPine BESYLATE 5 MG TABLET (FP) ONE (19:36)
[2020-08-10 19:42] LABS: CHLORIDE 107 mmol/L (98-107); SODIUM 140 mmol/L (136-145)
[2020-08-10] MEDS ORDERED: amLODIPine BESYLATE 5 MG TABLET (FP) PO ONE (19:44)
[2020-08-10 19:45] LABS: ALBUMIN 3.7 g/dl (3.4-5.0); ANION GAP 7 MMOL/L (8-16); BLOOD UREA NITROGEN 15.1 mg/dL (7-18); CO2 26 mmol/L (21-32); GLUCOSE,RANDOM 79 mg/dL (74-106)
[2020-08-10 19:48] LABS: CREATININE 0.8 mg/dL (0.55-1.3); SGOT/AST 14 U/L (15-37); SGPT/ALT 15 U/L (13-61)
[2020-08-10 19:50] LABS: BILIRUBIN,TOTAL 0.3 mg/dL (0.2-1); TOT PROT 7.9 g/dl (6.4-8.2)
[2020-08-10 19:51] LABS: ALK PHOS 97 U/L (45-117)
[2020-08-10 22:48] VITALS: BP 121/77; PULSE 67; TEMP 97.2
== END 2020-08-10 23:01 | disposition home or self-care (01) ==
LOC: JER 17:26
DX: R07.9 Chest pain, unspecified (principal)
CPT/HCPCS: 36415; 71045-TC-FY; 80053; 82550; 84484; 85025; 85610; 93005; 93010; 99285-25

== ENCOUNTER 2021-01-22 09:13 | Emergency (ER) | payer OTHER ==
[2021-01-22 09:29] VITALS: BP 118/81; PULSE 84; TEMP 98.4; BMI 15.6
[2021-01-22] MEDS ORDERED: DEXAMETHASONE LIQUID 0.5 MG/5 ML PO ONE (09:58)
[2021-01-22] MEDS ORDERED: diphenhydrAMINE HCL 50 MG CAPSULE PO ONE (09:59)
[2021-01-22] MEDS ORDERED: DEXAMETHASONE SOD PHOSPHATE 10 MG/1 ML VIAL ONE (10:02)
[2021-01-22] MEDS ORDERED: diphenhydrAMINE HCL 25 MG CAPSULE (FP) PO ONE (10:02)
== END 2021-01-22 10:15 | disposition home or self-care (01) ==
LOC: JERFT 09:13
DX: R21 Rash and other nonspecific skin eruption (principal)
CPT/HCPCS: 99283-25

== ENCOUNTER 2021-01-31 10:53 | Emergency (ER) | payer OTHER ==
[2021-01-31 11:12] VITALS: BP 131/89; PULSE 85; TEMP 97.9; BMI 36.9
[2021-01-31] MEDS ORDERED: ACETAMINOPHEN/CAFFEINE/BUTALBITAL 1 TAB PO ONE (12:15)
[2021-01-31] MEDS ORDERED: ACETAMINOPHEN 500 MG TABLET (FP) PO ONE (12:24)
[2021-01-31] MEDS ORDERED: ACETAMINOPHEN 500 MG TABLET (FP) ONE (12:29)
== END 2021-01-31 12:50 | disposition home or self-care (01) ==
LOC: JER 10:53
DX: R51.9 Headache, unspecified (principal); I10 Essential (primary) hypertension
CPT/HCPCS: 99283-25

== ENCOUNTER 2021-02-01 09:52 | Emergency (ER) | payer OTHER ==
[2021-02-01 10:07] VITALS: BP 139/90; PULSE 86; TEMP 97.6; BMI 36.9
[2021-02-01] MEDS ORDERED: ACETAMINOPHEN 1000 MG/100 ML VIAL IVPB ONE (11:17)
[2021-02-01] MEDS ORDERED: LACTATED RINGERS SOLUTION 1000 ML INFUS.BAG IV ONE (11:17)
[2021-02-01] MEDS ORDERED: METOCLOPRAMIDE HCL INJECTION 10 MG/2 ML VIAL IVPUSH ONE (11:21)
[2021-02-01] MEDS ORDERED: ACETAMINOPHEN INJECTION 100 ML IVPB ONE (12:22)
[2021-02-01] MEDS ORDERED: METOCLOPRAMIDE HCL INJECTION 10 MG/2 ML VIAL ONE (12:22)
== END 2021-02-01 13:23 | disposition home or self-care (01) ==
LOC: JER 09:52
PROC: 3E0333Z Introduction of Anti-inflammatory into Peripheral Vein, Percutaneous Approach (ICD-10-PCS; principal; 2021-02-01)
PROC: 3E033GC Introduction of Other Therapeutic Substance into Peripheral Vein, Percutaneous Approach (ICD-10-PCS; 2021-02-01)
DX: G43.909 Migraine, unspecified, not intractable, without status migrainosus (principal)
CPT/HCPCS: 99284-25; J0131

== ENCOUNTER 2021-07-19 18:38 | Emergency (ER) | payer OTHER ==
[2021-07-19 18:57] VITALS: TEMP 98.2; BMI 38.5
[2021-07-19] MEDS ORDERED: FAMOTIDINE 10 MG TABLET PO ONE (22:16)
[2021-07-19] MEDS ORDERED: FAMOTIDINE 20 MG TABLET ONE (23:17)
[2021-07-19 23:40] VITALS: BP 140/71; PULSE 91
== END 2021-07-19 23:43 | disposition home or self-care (01) ==
LOC: JER 18:38
DX: K21.9 Gastro-esophageal reflux disease without esophagitis (principal)
CPT/HCPCS: 93005; 93010; 99284-25

== ENCOUNTER 2021-07-24 10:23 | Emergency (ER) | payer OTHER ==
[2021-07-24 10:27] VITALS: BP 138/89; PULSE 81; TEMP 97.6; BMI 36.9
== END 2021-07-24 11:34 | disposition home or self-care (01) ==
LOC: JER 10:23
DX: R51.9 Headache, unspecified (principal)
CPT/HCPCS: 99283-25

== ENCOUNTER 2021-08-18 08:46 | Emergency (ER) | payer OTHER ==
[2021-08-18 08:51] VITALS: BP 129/83; PULSE 82; TEMP 98.3; BMI 37.5
== END 2021-08-18 10:21 | disposition home or self-care (01) ==
LOC: JERFT 08:46
DX: R60.9 Edema, unspecified (principal)
CPT/HCPCS: 73610-TC-LT-FY; 73630-TC-LT; 99283-25

== ENCOUNTER 2021-08-31 00:48 | Observation (INO) | payer OTHER ==
[2021-08-31 04:16] LABS: BASO % 0.7 % (0-2.0); EOS % 0.3 % (0-4.5); HEMATOCRIT 39.7 % (32.4-45.2); HEMOGLOBIN 13.2 GM/dL (10.7-15.3); LYMPH % 24.2 % (8-40); MCHC 33.2 g/dl (32.0-36.0); MEAN CELL VOLUME 84.4 fl (80-96); MEAN PLT VOLUME 7.3 fl (7.5-11.1); MONO % 4.1 % (3.8-10.2); NEUT % 70.7 % (42.8-82.8); PLATELET COUNT 322 10^3/uL (134-434); RDW 15.4 % (11.6-15.6); WHITE BLOOD COUNT 8.6 K/mm3 (4.0-10.0)
[2021-08-31] MEDS ORDERED: ONDANSETRON 4 MG/2 ML VIAL IVPUSH ONE (04:18)
[2021-08-31] MEDS ORDERED: ACETAMINOPHEN 1000 MG/100 ML BAG IVPB ONE (04:18)
[2021-08-31 04:28] LABS: ALBUMIN 3.6 g/dl (3.4-5.0); CALCIUM 9.3 mg/dL (8.5-10.1)
[2021-08-31 04:29] LABS: BLOOD UREA NITROGEN 13.2 mg/dL (7-18)
[2021-08-31 04:33] LABS: BILIRUBIN,TOTAL 0.3 mg/dL (0.2-1)
[2021-08-31] MEDS ORDERED: ACETAMINOPHEN INJECTION 100 ML IVPB ONE (04:37)
[2021-08-31] MEDS ORDERED: ONDANSETRON 4 MG/2 ML VIAL ONE (04:37)
[2021-08-31] MEDS ORDERED: ASPIRIN 81 MG CHEWABLE TABLETS PO ONE (04:39)
[2021-08-31] MEDS ORDERED: ASPIRIN 81 MG CHEWABLE TABLETS ONE (04:54)
[2021-08-31] MEDS ORDERED: POLYETHYLENE GLYCOL (HEALTHYLAX) 3350 17 GM PACKET PO PRN (06:08)
[2021-08-31] MEDS ORDERED: MAG HYDROX/AL HYDROX/SIMETH 30 ML UNIT-DOSE CUP PO ONE (06:09)
[2021-08-31] MEDS ORDERED: KETOROLAC TROMETHAMINE 15 MG/ML VIAL IVPUSH ONE (06:13)
[2021-08-31] MEDS ORDERED: FAMOTIDINE 20 MG/50 ML IVPB 20 MG/50 ML MG IVPB ONE ×2 (06:15→06:39)
[2021-08-31] MEDS ORDERED: KETOROLAC TROMETHAMINE 15 MG/ML VIAL ONE (06:39)
[2021-08-31] MEDS ORDERED: MAG HYDROX/AL HYDROX/SIMETH 30 ML UNIT-DOSE CUP ONE (06:39)
[2021-08-31] MEDS ORDERED: ACETAMINOPHEN 1000 MG/100 ML BAG IVPB PRN (11:00)
[2021-08-31 11:17] VITALS: BMI 38.5
[2021-08-31] MEDS ORDERED: ENOXAPARIN NA (PORCINE) 40 MG/0.4 ML DISP.SYRIN SQ SCH (12:00)
[2021-08-31 14:26] LABS: MAGNESIUM 2.2 mg/dL (1.8-2.4)
[2021-08-31 18:11] VITALS: BP 108/67; PULSE 74; TEMP 98.3
[2021-08-31 19:30] LABS: INR 1.08 (0.83-1.09); PROTHROMBIN TIME (PATIENT) 12.4 SEC (9.7-13.0)
[2021-08-31 19:32] LABS: ACTIVATED PTT 32.1 SECONDS (25.2-36.5)
[2021-09-01] MEDS ORDERED: ACETAMINOPHEN 325 MG TABLET (FP) PO PRN (11:00)
== END 2021-08-31 20:07 | disposition home or self-care (01) ==
LOC: JER 00:48 → JERBED 06:09 → J4W 10:53
PROVIDERS: ADMIT Internal Medicine; ATTEND Family Medicine
PROC: 3E033NZ Introduction of Analgesics, Hypnotics, Sedatives into Peripheral Vein, Percutaneous Approach (ICD-10-PCS; principal; 2021-08-31)
PROC: 3E023GC Introduction of Other Therapeutic Substance into Muscle, Percutaneous Approach (ICD-10-PCS; 2021-08-31)
PROC: 3E0333Z Introduction of Anti-inflammatory into Peripheral Vein, Percutaneous Approach (ICD-10-PCS; 2021-08-31)
PROC: 3E033GC Introduction of Other Therapeutic Substance into Peripheral Vein, Percutaneous Approach (ICD-10-PCS; 2021-08-31)
DX: R07.9 Chest pain, unspecified (principal); I31.9 Disease of pericardium, unspecified; I10 Essential (primary) hypertension; G89.29 Other chronic pain; K21.9 Gastro-esophageal reflux disease without esophagitis; E78.5 Hyperlipidemia, unspecified; E66.8 Other obesity; Z68.38 Body mass index [BMI] 38.0-38.9, adult; Z87.891 Personal history of nicotine dependence
CPT/HCPCS: 36415; 71046-TC-FY; 71275-TC; 80053; 83735; 84484; 84703; 85025; 85610; 85730; 93005; 93010; 93306-TC; 93970-TC; 96365; 96372; 96375; 99285-25; C9803-CS; G0378; Q9967; U0003; U0005

== ENCOUNTER 2021-11-16 18:00 | Emergency (ER) | payer OTHER ==
[2021-11-16 18:20] VITALS: BP 119/79; PULSE 78; RESP 18; TEMP 97.8; BMI 38.5
== END 2021-11-16 19:02 | disposition home or self-care (01) ==
LOC: JERFT 18:00
DX: R51.9 Headache, unspecified (principal)
CPT/HCPCS: 99281-25

== ENCOUNTER 2021-11-23 10:31 | Emergency (ER) | payer OTHER ==
[2021-11-23 10:48] VITALS: TEMP 98.6; BMI 30.9
[2021-11-23] MEDS ORDERED: FAMOTIDINE 20 MG TABLET PO ONE (11:37)
[2021-11-23] MEDS ORDERED: KETOROLAC TROMETHAMINE 30 MG/1 ML VIAL IM ONE (11:38)
[2021-11-23] MEDS ORDERED: ONDANSETRON 4 MG TABLET PO ONE (11:38)
[2021-11-23] MEDS ORDERED: SODIUM CHLORIDE 0.9% 500 ML INFUS.BAG IV ONE (11:45)
[2021-11-23] MEDS ORDERED: ONDANSETRON 4 MG/2 ML VIAL IVPUSH PRN (11:45)
[2021-11-23] MEDS ORDERED: FAMOTIDINE 20 MG/50 ML IVPB 20 MG/50 ML MG IVPB ONE ×2 (11:45→12:02)
[2021-11-23] MEDS ORDERED: KETOROLAC TROMETHAMINE 30 MG/1 ML VIAL IVPUSH ONE (11:48)
[2021-11-23] MEDS ORDERED: KETOROLAC TROMETHAMINE 30 MG/1 ML VIAL ONE (12:02)
[2021-11-23] MEDS ORDERED: ONDANSETRON 4 MG/2 ML VIAL ONE (12:02)
[2021-11-23 13:18] LABS: BASO % 0.7 % (0-2.0); EOS % 1.6 % (0-4.5); HEMATOCRIT 41.2 % (32.4-45.2); HEMOGLOBIN 13.4 GM/dL (10.7-15.3); MCH 28.9 pg (25.7-33.7); MCHC 32.5 g/dl (32.0-36.0); MEAN CELL VOLUME 88.8 fl (80-96); MEAN PLT VOLUME 8.5 fl (7.5-11.1); MONO % 4.8 % (3.8-10.2); NEUT % 64.9 % (42.8-82.8); PLATELET COUNT 322 10^3/uL (134-434); RBC 4.63 M/mm3 (3.60-5.2); RDW 15.6 % (11.6-15.6); WHITE BLOOD COUNT 9.3 K/mm3 (4.0-10.0)
[2021-11-23 13:49] LABS: CALCIUM 9.5 mg/dL (8.5-10.1)
[2021-11-23 13:50] LABS: ALBUMIN 3.4 g/dl (3.4-5.0); BLOOD UREA NITROGEN 13.4 mg/dL (7-18)
[2021-11-23 13:52] LABS: CREATININE 0.9 mg/dL (0.55-1.3)
[2021-11-23 13:54] LABS: BILIRUBIN,TOTAL 0.4 mg/dL (0.2-1); TOT PROT 7.9 g/dl (6.4-8.2)
[2021-11-23] MEDS ORDERED: POTASSIUM CHLORIDE ORAL LIQUID 20 MEQ/15 ML PO ONE (15:55)
[2021-11-23] MEDS ORDERED: POTASSIUM CHLORIDE ORAL LIQUID 20 MEQ/15 ML ONE (16:04)
[2021-11-23 16:31] LABS: EPI CELLS >36 /uL (0-25.1); HYALINE CASTS 0 /uL (0-3.1); PH,URINE 5.5 (5.0-8.0); URINE APPEARANCE CLOUDY; URINE BACTERIA 452 /uL (0-1359); URINE BILIRUBIN NEGATIVE (NEGATIVE); URINE COLOR YELLOW; URINE GLUCOSE (UA) NEGATIVE (NEGATIVE); URINE KETONE NEGATIVE (NEGATIVE); URINE LEUK ESTERASE 2+ (NEGATIVE); URINE NITRITE NEGATIVE (NEGATIVE); URINE PROTEIN NEGATIVE (NEGATIVE); URINE RBC 5 /uL (0-23.9); URINE UROBILINOGEN 0.2 mg/dL (0.2-1.0); URINE WBC 107 /uL (0-25.8)
[2021-11-23 16:42] LABS: HCG,QUALITATIVE URINE Negative
[2021-11-23 16:53] VITALS: BP 131/78; PULSE 62; RESP 20
== END 2021-11-23 17:08 | disposition home or self-care (01) ==
LOC: JER 10:31
PROC: 3E033NZ Introduction of Analgesics, Hypnotics, Sedatives into Peripheral Vein, Percutaneous Approach (ICD-10-PCS; principal; 2021-11-23)
PROC: 3E033GC Introduction of Other Therapeutic Substance into Peripheral Vein, Percutaneous Approach (ICD-10-PCS; 2021-11-23)
PROC: 3E0333Z Introduction of Anti-inflammatory into Peripheral Vein, Percutaneous Approach (ICD-10-PCS; 2021-11-23)
DX: R10.13 Epigastric pain (principal)
CPT/HCPCS: 36415; 76705-TC; 80053; 81003; 83690; 84703; 85025; 87086; 99284-25

== ENCOUNTER 2021-12-29 09:55 | Inpatient (IN) | payer OTHER ==
[2021-12-29] MEDS ORDERED: KETOROLAC TROMETHAMINE 30 MG/1 ML VIAL IM ONE (10:27)
[2021-12-29] MEDS ORDERED: KETOROLAC TROMETHAMINE 30 MG/1 ML VIAL ONE (10:39)
[2021-12-29 12:24] LABS: BASO % 0.6 % (0-2.0); EOS % 0.4 % (0-4.5); HEMATOCRIT 36.5 % (32.4-45.2); HEMOGLOBIN 12.5 GM/dL (10.7-15.3); LYMPH % 23.9 % (8-40); MCH 30.3 pg (25.7-33.7); MCHC 34.3 g/dl (32.0-36.0); MEAN CELL VOLUME 88.4 fl (80-96); MEAN PLT VOLUME 7.9 fl (7.5-11.1); MONO % 6.7 % (3.8-10.2); NEUT % 68.4 % (42.8-82.8); PLATELET COUNT 289 10^3/uL (134-434); RBC 4.13 M/mm3 (3.60-5.2); RDW 14.3 % (11.6-15.6); WHITE BLOOD COUNT 10.7 K/mm3 (4.0-10.0)
[2021-12-29 12:33] LABS: INR 1.09 (0.83-1.09); PROTHROMBIN TIME (PATIENT) 12.6 SEC (9.7-13.0)
[2021-12-29 12:35] LABS: ACTIVATED PTT 28.4 SECONDS (25.2-36.5)
[2021-12-29 12:45] LABS: CALCIUM 9.8 mg/dL (8.5-10.1)
[2021-12-29 12:46] LABS: ALBUMIN 3.5 g/dl (3.4-5.0); BLOOD UREA NITROGEN 13.1 mg/dL (7-18)
[2021-12-29 12:50] LABS: BILIRUBIN,TOTAL 0.6 mg/dL (0.2-1)
[2021-12-29 15:49] LABS: EPI CELLS >36 /uL (0-25.1); HYALINE CASTS 1 /uL (0-3.1); PH,URINE 7.5 (5.0-8.0); URINE APPEARANCE CLEAR; URINE BACTERIA 1865 /uL (0-1359); URINE BILIRUBIN NEGATIVE (NEGATIVE); URINE COLOR YELLOW; URINE GLUCOSE (UA) NEGATIVE (NEGATIVE); URINE KETONE NEGATIVE (NEGATIVE); URINE LEUK ESTERASE 3+ (NEGATIVE); URINE NITRITE NEGATIVE (NEGATIVE); URINE PROTEIN NEGATIVE (NEGATIVE); URINE RBC 19 /uL (0-23.9); URINE UROBILINOGEN 0.2 mg/dL (0.2-1.0); URINE WBC 92 /uL (0-25.8)
[2021-12-29] MEDS ORDERED: ENOXAPARIN NA (PORCINE) 100 MG/1 ML DISP.SYRIN SQ ONE ×2 (16:24→16:29)
[2021-12-29] MEDS ORDERED: ACETAMINOPHEN 1000 MG/100 ML BAG IVPB ONE (16:25)
[2021-12-29] MEDS ORDERED: ACETAMINOPHEN INJECTION 100 ML IVPB ONE (16:29)
[2021-12-29] MEDS: ENOXAPARIN NA (PORCINE) 100 MG/1 ML DISP.SYRIN SQ SCH (16:56)
[2021-12-29] MEDS ORDERED: ACETAMINOPHEN 325 MG TABLET (FP) ONE (20:41)
[2021-12-30] MEDS: ACETAMINOPHEN 325 MG TABLET (FP) PO PRN ×3 (01:39→16:30)
[2021-12-30 01:51] VITALS: BMI 40.1
[2021-12-30] MEDS: ENOXAPARIN NA (PORCINE) 100 MG/1 ML DISP.SYRIN SQ SCH ×2 (03:57→16:31)
[2021-12-30 09:34] LABS: HEMATOCRIT 37.5 % (32.4-45.2); HEMOGLOBIN 12.4 GM/dL (10.7-15.3); MCH 29.5 pg (25.7-33.7); MEAN CELL VOLUME 89.3 fl (80-96); MEAN PLT VOLUME 8.5 fl (7.5-11.1); PLATELET COUNT 273 10^3/uL (134-434); RDW 14.4 % (11.6-15.6); WHITE BLOOD COUNT 8.7 K/mm3 (4.0-10.0)
[2021-12-30] MEDS: PROCHLORPERAZINE MALEATE 5 MG TABLET PO PRN (10:07)
[2021-12-30] MEDS: PANTOPRAZOLE 40 MG TABLET PO SCH (10:07)
[2021-12-30] MEDS: HYDROCHLOROTHIAZIDE 25 MG TABLET (FP) PO SCH (10:07)
[2021-12-30] MEDS: metoPROLOL SUCCINATE 25 MG TAB.SR.24H (FP) PO SCH ×2 (10:07→21:28)
[2021-12-30 10:50] LABS: CALCIUM 9.1 mg/dL (8.5-10.1)
[2021-12-30 10:51] LABS: ALBUMIN 3.1 g/dl (3.4-5.0); BLOOD UREA NITROGEN 13.1 mg/dL (7-18)
[2021-12-30 10:54] LABS: CREATININE 0.8 mg/dL (0.55-1.3)
[2021-12-30 10:55] LABS: BILIRUBIN,TOTAL 0.9 mg/dL (0.2-1); TOT PROT 7.3 g/dl (6.4-8.2)
[2021-12-31] MEDS: ACETAMINOPHEN 325 MG TABLET (FP) PO PRN (04:50)
[2021-12-31] MEDS: ENOXAPARIN NA (PORCINE) 100 MG/1 ML DISP.SYRIN SQ SCH ×2 (04:52→17:09)
[2021-12-31] MEDS: PANTOPRAZOLE 40 MG TABLET PO SCH (09:07)
[2021-12-31] MEDS: metoPROLOL SUCCINATE 25 MG TAB.SR.24H (FP) PO SCH ×2 (09:07→21:30)
[2021-12-31] MEDS: HYDROCHLOROTHIAZIDE 25 MG TABLET (FP) PO SCH (09:07)
[2021-12-31 10:34] LABS: BLOOD UREA NITROGEN 11.1 mg/dL (7-18); CALCIUM 9.1 mg/dL (8.5-10.1)
[2021-12-31] MEDS ORDERED: CYCLOBENZAPRINE HCL 10 MG TABLET (FP) PO PRN (12:20)
[2021-12-31] MEDS: traMADol HCL 50 MG TABLET PO PRN (12:38)
[2021-12-31] MEDS: APIXABAN 5 MG TABLET PO SCH (21:29)
[2021-12-31] MEDS ORDERED: APIXABAN 5 MG TABLET PO SCH (22:00)
[2021-12-31 23:26] LABS: EPI CELLS 14 /uL (0-25.1); HYALINE CASTS 1 /uL (0-3.1); PH,URINE 6.5 (5.0-8.0); URINE APPEARANCE CLEAR; URINE BACTERIA 974 /uL (0-1359); URINE BILIRUBIN NEGATIVE (NEGATIVE); URINE COLOR YELLOW; URINE GLUCOSE (UA) NEGATIVE (NEGATIVE); URINE KETONE NEGATIVE (NEGATIVE); URINE LEUK ESTERASE 1+ (NEGATIVE); URINE NITRITE NEGATIVE (NEGATIVE); URINE PROTEIN NEGATIVE (NEGATIVE); URINE RBC 6 /uL (0-23.9); URINE WBC 40 /uL (0-25.8)
[2022-01-01] MEDS: metoPROLOL SUCCINATE 25 MG TAB.SR.24H (FP) PO SCH ×2 (09:25→21:41)
[2022-01-01] MEDS: APIXABAN 5 MG TABLET PO SCH ×2 (09:26→21:41)
[2022-01-01] MEDS: HYDROCHLOROTHIAZIDE 25 MG TABLET (FP) PO SCH (09:27)
[2022-01-01] MEDS: PANTOPRAZOLE 40 MG TABLET PO SCH (09:27)
[2022-01-01 12:49] VITALS: RESP 18
[2022-01-01] MEDS: PROCHLORPERAZINE MALEATE 5 MG TABLET PO PRN (16:24)
[2022-01-02] MEDS: PANTOPRAZOLE 40 MG TABLET PO SCH (09:41)
[2022-01-02] MEDS: HYDROCHLOROTHIAZIDE 25 MG TABLET (FP) PO SCH (09:41)
[2022-01-02] MEDS: metoPROLOL SUCCINATE 25 MG TAB.SR.24H (FP) PO SCH (09:41)
[2022-01-02] MEDS: APIXABAN 5 MG TABLET PO SCH (09:42)
[2022-01-02 15:47] VITALS: BP 129/75; PULSE 88; TEMP 99.7
[2022-01-02] MEDS ORDERED: APIXABAN 5 MG TABLET PO ONE (18:37)
[2022-01-02] MEDS: traMADol HCL 50 MG TABLET PO PRN (20:06)
== END 2022-01-02 20:21 | disposition home or self-care (01) | DRG 134 ==
LOC: JER 09:55 → JERBED 16:44 → J7W 12-30 01:18
PROVIDERS: ADMIT Family Medicine; ATTEND Family Medicine
DX: I26.99 Other pulmonary embolism without acute cor pulmonale (principal); Z68.41 Body mass index [BMI] 40.0-44.9, adult; I10 Essential (primary) hypertension; E66.01 Morbid (severe) obesity due to excess calories; M54.9 Dorsalgia, unspecified; K21.9 Gastro-esophageal reflux disease without esophagitis; E78.5 Hyperlipidemia, unspecified
CPT/HCPCS: 36415; 71046-TC-FY; 71275-TC; 76937; 80048; 80053; 80061; 81003; 85025; 85027; 85610; 85730; 93005; 93010; 93306-TC; 93970-TC; 99285-25; C9803-CS; Q9967; U0003; U0005

== ENCOUNTER 2022-01-03 17:00 | Emergency (ER) | payer OTHER ==
[2022-01-03 17:11] VITALS: BP 136/86; PULSE 90; RESP 17; TEMP 98.8; BMI 38.5
[2022-01-03 20:52] LABS: HEMATOCRIT 35.1 % (32.4-45.2); HEMOGLOBIN 11.9 GM/dL (10.7-15.3); MCHC 33.8 g/dl (32.0-36.0); MEAN CELL VOLUME 88.5 fl (80-96); MEAN PLT VOLUME 7.8 fl (7.5-11.1); PLATELET COUNT 365 10^3/uL (134-434); RBC 3.97 M/mm3 (3.60-5.2); RDW 14.1 % (11.6-15.6); WHITE BLOOD COUNT 10.4 K/mm3 (4.0-10.0)
[2022-01-03 21:23] LABS: ALBUMIN 3.4 g/dl (3.4-5.0); CALCIUM 9.4 mg/dL (8.5-10.1)
[2022-01-03 21:24] LABS: BLOOD UREA NITROGEN 13.5 mg/dL (7-18)
[2022-01-03 21:26] LABS: CREATININE 0.8 mg/dL (0.55-1.3)
[2022-01-03 21:28] LABS: BILIRUBIN,TOTAL 0.5 mg/dL (0.2-1); TOT PROT 8.6 g/dl (6.4-8.2)
[2022-01-03] MEDS ORDERED: ACETAMINOPHEN 325 MG TABLET (FP) PO ONE (21:50)
[2022-01-03] MEDS ORDERED: ACETAMINOPHEN 325 MG TABLET (FP) ONE (22:02)
== END 2022-01-04 01:02 | disposition home or self-care (01) ==
LOC: JER 17:00
DX: R07.9 Chest pain, unspecified (principal)
CPT/HCPCS: 0241U-QW; 36415; 71046-TC-FY; 80053; 84484; 85027; 93005; 93010; 99285-25

== ENCOUNTER 2022-01-14 06:02 | Emergency (ER) | payer OTHER ==
[2022-01-14 06:34] VITALS: PULSE 62; RESP 18; BMI 38.5
[2022-01-14] MEDS ORDERED: KETOROLAC TROMETHAMINE 15 MG/ML VIAL IVPUSH ONE (07:39)
[2022-01-14] MEDS ORDERED: traMADol HCL 50 MG TABLET PO ONE (07:43)
[2022-01-14] MEDS ORDERED: KETOROLAC TROMETHAMINE 15 MG/ML VIAL ONE (07:55)
[2022-01-14] MEDS ORDERED: traMADol HCL 50 MG TABLET ONE (07:55)
[2022-01-14 08:23] LABS: BASO % 0.7 % (0-2.0); EOS % 0.5 % (0-4.5); HEMATOCRIT 37.3 % (32.4-45.2); HEMOGLOBIN 12.6 GM/dL (10.7-15.3); LYMPH % 22.6 % (8-40); MCH 29.8 pg (25.7-33.7); MCHC 33.7 g/dl (32.0-36.0); MEAN CELL VOLUME 88.3 fl (80-96); MEAN PLT VOLUME 7.2 fl (7.5-11.1); MONO % 4.7 % (3.8-10.2); NEUT % 71.5 % (42.8-82.8); PLATELET COUNT 491 10^3/uL (134-434); RBC 4.22 M/mm3 (3.60-5.2); WHITE BLOOD COUNT 7.2 K/mm3 (4.0-10.0)
[2022-01-14 08:51] LABS: ALBUMIN 3.3 g/dl (3.4-5.0); MAGNESIUM 1.9 mg/dL (1.8-2.4)
[2022-01-14 08:52] LABS: BLOOD UREA NITROGEN 12.2 mg/dL (7-18)
[2022-01-14 08:54] LABS: CREATININE 0.9 mg/dL (0.55-1.3)
[2022-01-14 08:56] LABS: BILIRUBIN,TOTAL 0.3 mg/dL (0.2-1); TOT PROT 7.8 g/dl (6.4-8.2)
[2022-01-14 08:58] LABS: N-TERMINAL BNP 60.4 pg/ml (5-125)
[2022-01-14 09:15] LABS: INR 1.46 (0.83-1.09); PROTHROMBIN TIME (PATIENT) 16.8 SEC (9.7-13.0)
[2022-01-14 09:18] LABS: ACTIVATED PTT 33.3 SECONDS (25.2-36.5)
[2022-01-14 10:38] VITALS: BP 137/80; TEMP 98
== END 2022-01-14 11:22 | disposition home or self-care (01) ==
LOC: JER 06:02
PROC: 3E033NZ Introduction of Analgesics, Hypnotics, Sedatives into Peripheral Vein, Percutaneous Approach (ICD-10-PCS; principal; 2022-01-14)
DX: R07.9 Chest pain, unspecified (principal)
CPT/HCPCS: 0241U-QW; 36415; 71046-TC-FY; 80053; 83735; 83880; 84484; 85025; 85610; 85730; 93005; 93010; 99284-25

== ENCOUNTER 2022-01-17 14:12 | Emergency (ER) | payer OTHER ==
[2022-01-17 15:10] VITALS: BP 124/83; PULSE 87; RESP 18; TEMP 98.1; BMI 38.5
== END 2022-01-17 20:04 | disposition home or self-care (01) ==
LOC: JER 14:12
DX: M79.605 Pain in left leg (principal)
CPT/HCPCS: 93971-TC; 99284-25

== ENCOUNTER 2022-03-17 09:57 | Emergency (ER) | payer OTHER ==
[2022-03-17 10:07] VITALS: TEMP 97.8; BMI 38.7
[2022-03-17 11:31] LABS: BASO % 0.7 % (0-2.0); EOS % 0.3 % (0-4.5); HEMATOCRIT 37.2 % (32.4-45.2); HEMOGLOBIN 12.3 GM/dL (10.7-15.3); LYMPH % 34.6 % (8-40); MCH 28.5 pg (25.7-33.7); MCHC 32.9 g/dl (32.0-36.0); MEAN CELL VOLUME 86.5 fl (80-96); MEAN PLT VOLUME 9.3 fl (7.5-11.1); MONO % 4.7 % (3.8-10.2); NEUT % 59.7 % (42.8-82.8); PLATELET COUNT 324 10^3/uL (134-434); RDW 13.2 % (11.6-15.6); WHITE BLOOD COUNT 8.4 K/mm3 (4.0-10.0)
[2022-03-17 11:38] LABS: INR 1.38 (0.83-1.09); PROTHROMBIN TIME (PATIENT) 15.9 SEC (9.7-13.0)
[2022-03-17 11:41] LABS: ACTIVATED PTT 36.3 SECONDS (25.2-36.5)
[2022-03-17 11:52] LABS: CALCIUM 10.3 mg/dL (8.5-10.1)
[2022-03-17 11:53] LABS: ALBUMIN 3.7 g/dl (3.4-5.0); BLOOD UREA NITROGEN 9.6 mg/dL (7-18)
[2022-03-17 11:56] LABS: CREATININE 0.8 mg/dL (0.55-1.3)
[2022-03-17 11:57] LABS: BILIRUBIN,TOTAL 0.4 mg/dL (0.2-1); TOT PROT 8.1 g/dl (6.4-8.2)
[2022-03-17] MEDS ORDERED: ACETAMINOPHEN 500 MG TABLET (FP) PO ONE (14:19)
[2022-03-17] MEDS ORDERED: ACETAMINOPHEN INJECTION 100 ML IVPB ONE (14:53)
[2022-03-17] MEDS ORDERED: ACETAMINOPHEN 325 MG TABLET (FP) PO ONE (19:59)
[2022-03-17] MEDS ORDERED: MAG HYDROX/AL HYDROX/SIMETH -MYLANTA- ORAL SUSPENSION PO ONE (20:02)
[2022-03-17] MEDS ORDERED: ACETAMINOPHEN 325 MG TABLET (FP) ONE (20:07)
[2022-03-17] MEDS ORDERED: MAG HYDROX/AL HYDROX/SIMETH 30 ML UNIT-DOSE CUP ONE (20:07)
[2022-03-17 20:22] VITALS: BP 110/60; PULSE 65; RESP 18
== END 2022-03-17 20:23 | disposition home or self-care (01) ==
LOC: JER 09:57
DX: R07.9 Chest pain, unspecified (principal)
CPT/HCPCS: 0241U-QW; 36415; 71275-TC; 80053; 84484; 84703; 85025; 85610; 85730; 86850; 86900; 86901; 93005; 93010; 99285-25; Q9967

== ENCOUNTER 2022-03-20 13:34 | Emergency (ER) | payer OTHER ==
[2022-03-20 13:38] VITALS: BMI 39.1
[2022-03-20] MEDS ORDERED: FAMOTIDINE 20 MG TABLET PO ONE (14:13)
[2022-03-20] MEDS ORDERED: MAG HYDROX/AL HYDROX/SIMETH 30 ML UNIT-DOSE CUP PO ONE (14:13)
[2022-03-20] MEDS ORDERED: FAMOTIDINE 20 MG TABLET ONE (14:22)
[2022-03-20] MEDS ORDERED: MAG HYDROX/AL HYDROX/SIMETH 30 ML UNIT-DOSE CUP ONE (14:22)
[2022-03-20] MEDS ORDERED: ONDANSETRON 4 MG/2 ML VIAL IVPUSH ONE (14:37)
[2022-03-20] MEDS ORDERED: ONDANSETRON 4 MG/2 ML VIAL ONE (14:42)
[2022-03-20 14:58] VITALS: TEMP 98.4
[2022-03-20 15:08] LABS: BASO % 0.8 % (0-2.0); EOS % 0.5 % (0-4.5); HEMOGLOBIN 12.6 GM/dL (10.7-15.3); LYMPH % 38.9 % (8-40); MCH 28.5 pg (25.7-33.7); MCHC 33.1 g/dl (32.0-36.0); MEAN CELL VOLUME 86.2 fl (80-96); MEAN PLT VOLUME 8.7 fl (7.5-11.1); MONO % 5.1 % (3.8-10.2); NEUT % 54.7 % (42.8-82.8); PLATELET COUNT 340 10^3/uL (134-434); RBC 4.41 M/mm3 (3.60-5.2); RDW 13.4 % (11.6-15.6); WHITE BLOOD COUNT 7.4 K/mm3 (4.0-10.0)
[2022-03-20 15:12] LABS: INR 1.47 (0.83-1.09)
[2022-03-20 15:14] LABS: ACTIVATED PTT 35.4 SECONDS (25.2-36.5)
[2022-03-20 15:26] LABS: CALCIUM 10.1 mg/dL (8.5-10.1)
[2022-03-20 15:27] LABS: ALBUMIN 3.8 g/dl (3.4-5.0); MAGNESIUM 2.2 mg/dL (1.8-2.4)
[2022-03-20 15:30] LABS: CREATININE 0.9 mg/dL (0.55-1.3)
[2022-03-20 15:32] LABS: BILIRUBIN,TOTAL 0.3 mg/dL (0.2-1); TOT PROT 8.1 g/dl (6.4-8.2)
[2022-03-20 16:35] LABS: N-TERMINAL BNP 95.6 pg/ml (5-125)
[2022-03-20 16:47] VITALS: BP 124/84; PULSE 59; RESP 20
== END 2022-03-20 16:48 | disposition home or self-care (01) ==
LOC: JER 13:34
PROC: 3E033GC Introduction of Other Therapeutic Substance into Peripheral Vein, Percutaneous Approach (ICD-10-PCS; principal; 2022-03-20)
DX: K21.9 Gastro-esophageal reflux disease without esophagitis (principal)
CPT/HCPCS: 36415; 71046-TC-FY; 80053; 83735; 83880; 84484; 85025; 85610; 85730; 93005; 93010; 99285-25

== ENCOUNTER 2022-04-29 19:18 | Emergency (ER) | payer OTHER ==
[2022-04-29 19:41] VITALS: BP 121/72; PULSE 69; RESP 20; TEMP 97.9; BMI 38.3
[2022-04-29] MEDS ORDERED: ACETAMINOPHEN 1000 MG/100 ML BAG IVPB ONE (20:24)
[2022-04-29] MEDS ORDERED: ACETAMINOPHEN INJECTION 100 ML IVPB ONE (20:26)
[2022-04-29 20:44] LABS: BASO % 0.9 % (0-2.0); EOS % 0.6 % (0-4.5); HEMOGLOBIN 11.4 GM/dL (10.7-15.3); LYMPH % 38.7 % (8-40); MCH 27.1 pg (25.7-33.7); MCHC 32.6 g/dl (32.0-36.0); MEAN CELL VOLUME 83.1 fl (80-96); MEAN PLT VOLUME 7.5 fl (7.5-11.1); MONO % 5.3 % (3.8-10.2); NEUT % 54.5 % (42.8-82.8); PLATELET COUNT 331 10^3/uL (134-434); RBC 4.21 M/mm3 (3.60-5.2); RDW 13.3 % (11.6-15.6)
[2022-04-29 21:14] LABS: ALBUMIN 3.5 g/dl (3.4-5.0); BLOOD UREA NITROGEN 12.1 mg/dL (7-18)
[2022-04-29 21:17] LABS: CREATININE 0.9 mg/dL (0.55-1.3)
[2022-04-29 21:19] LABS: BILIRUBIN,TOTAL 0.3 mg/dL (0.2-1); TOT PROT 7.6 g/dl (6.4-8.2)
[2022-04-29] MEDS ORDERED: KETOROLAC TROMETHAMINE 15 MG/ML VIAL IVPUSH ONE (21:55)
[2022-04-29] MEDS ORDERED: KETOROLAC TROMETHAMINE 15 MG/ML VIAL ONE (22:07)
== END 2022-04-29 23:07 | disposition home or self-care (01) ==
LOC: JER 19:18
PROC: 3E0333Z Introduction of Anti-inflammatory into Peripheral Vein, Percutaneous Approach (ICD-10-PCS; principal; 2022-04-29)
PROC: 3E0333Z Introduction of Anti-inflammatory into Peripheral Vein, Percutaneous Approach (ICD-10-PCS; 2022-04-29)
DX: R07.89 Other chest pain (principal)
CPT/HCPCS: 36415; 71046-TC-FY; 80053; 84484; 85025; 93005; 93010; 93970-TC; 99285-25

== ENCOUNTER 2022-05-15 15:27 | Emergency (ER) | payer OTHER ==
[2022-05-15 15:33] VITALS: BP 116/65; PULSE 76; RESP 18; TEMP 97.9; BMI 38.5
[2022-05-15 17:19] LABS: HEMATOCRIT 35.9 % (32.4-45.2); HEMOGLOBIN 11.9 GM/dL (10.7-15.3); LYMPH % 33.7 % (8-40); MCH 27.6 pg (25.7-33.7); MCHC 33.1 g/dl (32.0-36.0); MEAN CELL VOLUME 83.4 fl (80-96); MEAN PLT VOLUME 7.7 fl (7.5-11.1); MONO % 5.9 % (3.8-10.2); NEUT % 58.4 % (42.8-82.8); PLATELET COUNT 349 10^3/uL (134-434); RDW 13.8 % (11.6-15.6); WHITE BLOOD COUNT 8.1 K/mm3 (4.0-10.0)
[2022-05-15 17:26] LABS: INR 1.31 (0.83-1.09); PROTHROMBIN TIME (PATIENT) 15.2 SEC (9.7-13.0)
[2022-05-15 17:29] LABS: ACTIVATED PTT 36.1 SECONDS (25.2-36.5)
[2022-05-15 17:40] LABS: ALBUMIN 3.4 g/dl (3.4-5.0); CALCIUM 9.9 mg/dL (8.5-10.1); MAGNESIUM 2.1 mg/dL (1.8-2.4)
[2022-05-15 17:44] LABS: CREATININE 0.9 mg/dL (0.55-1.3)
[2022-05-15 17:45] LABS: BILIRUBIN,TOTAL 0.5 mg/dL (0.2-1); TOT PROT 7.5 g/dl (6.4-8.2)
[2022-05-15 17:48] LABS: N-TERMINAL BNP 102.6 pg/ml (5-125)
[2022-05-15] MEDS ORDERED: ACETAMINOPHEN 500 MG TABLET (FP) PO ONE (18:02)
[2022-05-15] MEDS ORDERED: ACETAMINOPHEN 325 MG TABLET (FP) ONE (18:34)
== END 2022-05-15 18:51 | disposition home or self-care (01) ==
LOC: JER 15:27
DX: R07.2 Precordial pain (principal); M79.604 Pain in right leg; M79.605 Pain in left leg
CPT/HCPCS: 36415; 71046-TC-FY; 80053; 83690; 83735; 83880; 84484; 84703; 85025; 85379; 85610; 85730; 93005; 93010; 99285-25

== ENCOUNTER 2022-05-26 19:27 | Emergency (ER) | payer OTHER ==
[2022-05-26 19:34] VITALS: BP 128/76; PULSE 70; RESP 18; TEMP 97.9; BMI 37.5
[2022-05-26] MEDS ORDERED: LIDOCAINE 5% TOPICAL PATCH TP ONE (20:46)
[2022-05-26] MEDS ORDERED: ACETAMINOPHEN 1000 MG/100 ML BAG IVPB ONE (20:46)
[2022-05-26] MEDS ORDERED: ACETAMINOPHEN INJECTION 100 ML IVPB ONE (20:50)
[2022-05-26] MEDS ORDERED: LIDOCAINE 5% TOPICAL PATCH ONE (20:50)
[2022-05-26 20:59] LABS: BASO % 0.9 % (0-2.0); EOS % 0.6 % (0-4.5); HEMATOCRIT 35.8 % (32.4-45.2); HEMOGLOBIN 11.8 GM/dL (10.7-15.3); LYMPH % 29.6 % (8-40); MCHC 32.8 g/dl (32.0-36.0); MEAN CELL VOLUME 82.4 fl (80-96); MEAN PLT VOLUME 8.1 fl (7.5-11.1); MONO % 5.7 % (3.8-10.2); NEUT % 63.2 % (42.8-82.8); PLATELET COUNT 323 10^3/uL (134-434); RBC 4.35 M/mm3 (3.60-5.2); RDW 14.2 % (11.6-15.6)
[2022-05-26 21:21] LABS: ALBUMIN 3.4 g/dl (3.4-5.0); BLOOD UREA NITROGEN 12.2 mg/dL (7-18); CALCIUM 9.6 mg/dL (8.5-10.1)
[2022-05-26 21:24] LABS: CREATININE 0.8 mg/dL (0.55-1.3)
[2022-05-26 21:26] LABS: BILIRUBIN,TOTAL 0.3 mg/dL (0.2-1); TOT PROT 7.7 g/dl (6.4-8.2)
[2022-05-26 21:46] LABS: ACTIVATED PTT 35.7 SECONDS (25.2-36.5); INR 1.2 (0.83-1.09); PROTHROMBIN TIME (PATIENT) 13.9 SEC (9.7-13.0)
[2022-05-26] MEDS ORDERED: LIDOCAINE PATCH REMOVAL MC SCH (22:00)
[2022-05-26] MEDS ORDERED: APIXABAN 5 MG TABLET PO ONE (23:08)
[2022-05-26] MEDS ORDERED: APIXABAN 5 MG TABLET ONE (23:13)
== END 2022-05-26 23:22 | disposition home or self-care (01) ==
LOC: JER 19:27
DX: M54.6 Pain in thoracic spine (principal); Z86.711 Personal history of pulmonary embolism; Z20.822 Contact with and (suspected) exposure to COVID-19
CPT/HCPCS: 0241U-QW; 36415; 71046-TC-FY; 80053; 84484; 85025; 85379; 85610; 85730; 93005; 93010; 99285-25

== ENCOUNTER 2022-07-05 12:56 | Emergency (ER) | payer OTHER ==
[2022-07-05 13:13] VITALS: BP 107/70; PULSE 77; RESP 18; TEMP 98.7; BMI 39.1
[2022-07-05] MEDS ORDERED: ACETAMINOPHEN 1000 MG/100 ML BAG IVPB ONE (14:51)
[2022-07-05] MEDS ORDERED: MAG HYDROX/AL HYDROX/SIMETH -MYLANTA- ORAL SUSPENSION PO ONE (14:51)
[2022-07-05] MEDS ORDERED: FAMOTIDINE 20 MG/50 ML IVPB 20 MG in PREMIX 50 IVPB ONE (14:51)
[2022-07-05] MEDS ORDERED: MAG HYDROX/AL HYDROX/SIMETH 30 ML UNIT-DOSE CUP ONE (15:02)
[2022-07-05] MEDS ORDERED: FAMOTIDINE 20 MG/50 ML IVPB 20 MG/50 ML MG IVPB ONE (15:02)
[2022-07-05 15:38] LABS: BASO % 0.4 % (0-2.0); EOS % 0.2 % (0-4.5); HEMATOCRIT 37.4 % (32.4-45.2); HEMOGLOBIN 12.4 GM/dL (10.7-15.3); LYMPH % 21.6 % (8-40); MCH 27.3 pg (25.7-33.7); MCHC 33.1 g/dl (32.0-36.0); MEAN CELL VOLUME 82.4 fl (80-96); MEAN PLT VOLUME 8.8 fl (7.5-11.1); MONO % 4.4 % (3.8-10.2); NEUT % 73.4 % (42.8-82.8); PLATELET COUNT 329 10^3/uL (134-434); RBC 4.54 M/mm3 (3.60-5.2); RDW 14.4 % (11.6-15.6); WHITE BLOOD COUNT 11.1 K/mm3 (4.0-10.0)
[2022-07-05] MEDS ORDERED: ACETAMINOPHEN INJECTION 100 ML IVPB ONE (15:48)
[2022-07-05 16:03] LABS: POTASSIUM 3.4 mmol/L (3.5-5.1)
[2022-07-05 16:06] LABS: ALBUMIN 3.9 g/dl (3.4-5.0); BLOOD UREA NITROGEN 10.2 mg/dL (7-18)
[2022-07-05 16:09] LABS: CREATININE 0.8 mg/dL (0.55-1.3)
[2022-07-05 16:10] LABS: BILIRUBIN,TOTAL 0.2 mg/dL (0.2-1)
[2022-07-05 16:11] LABS: TOT PROT 8.3 g/dl (6.4-8.2)
[2022-07-05 16:12] LABS: ACTIVATED PTT 35.8 SECONDS (25.2-36.5); INR 1.57 (0.83-1.09); PROTHROMBIN TIME (PATIENT) 18.1 SEC (9.7-13.0)
[2022-07-05 16:31] LABS: EPI CELLS >36 /uL (0-25.1); HYALINE CASTS 2 /uL (0-3.1); URINE APPEARANCE CLOUDY; URINE BACTERIA 1480 /uL (0-1359); URINE BILIRUBIN NEGATIVE (NEGATIVE); URINE COLOR YELLOW; URINE GLUCOSE (UA) NEGATIVE (NEGATIVE); URINE KETONE TRACE (NEGATIVE); URINE LEUK ESTERASE 3+ (NEGATIVE); URINE NITRITE NEGATIVE (NEGATIVE); URINE PROTEIN NEGATIVE (NEGATIVE); URINE WBC 152 /uL (0-25.8)
[2022-07-05] MEDS ORDERED: morphine CARPU-JECT 4 MG/1 ML DISP.SYRIN IVPUSH ONE (16:57)
[2022-07-05] MEDS ORDERED: morphine SULFATE 4 MG/ML VIAL ONE (17:08)
[2022-07-05] MEDS ORDERED: CEPHALEXIN MONOHYDRATE 500 MG CAPSULE (UD) PO ONE (19:02)
[2022-07-05] MEDS ORDERED: CEPHALEXIN MONOHYDRATE 500 MG CAPSULE (UD) ONE (19:03)
[2022-07-05] MEDS ORDERED: DOCUSATE SODIUM 100 MG CAPSULE (FP) PO ONE (19:03)
== END 2022-07-05 19:14 | disposition home or self-care (01) ==
LOC: JER 12:56
PROC: 3E033GC Introduction of Other Therapeutic Substance into Peripheral Vein, Percutaneous Approach (ICD-10-PCS; principal; 2022-07-05)
PROC: 3E033GC Introduction of Other Therapeutic Substance into Peripheral Vein, Percutaneous Approach (ICD-10-PCS; 2022-07-05)
PROC: 3E033GC Introduction of Other Therapeutic Substance into Peripheral Vein, Percutaneous Approach (ICD-10-PCS; 2022-07-05)
DX: R10.33 Periumbilical pain (principal); R10.13 Epigastric pain
CPT/HCPCS: 36415; 71046-TC-FY; 74177-TC; 80053; 81003; 83690; 84484; 84703; 85025; 85610; 85730; 87086; 96365; 96375; 99285-25; Q9967

== ENCOUNTER 2022-07-08 12:42 | Emergency (ER) | payer OTHER ==
[2022-07-08 13:12] VITALS: BP 125/74; PULSE 70; RESP 16; TEMP 98.9; BMI 38.3
[2022-07-08] MEDS ORDERED: PHENAZOPYRIDINE HCL 100 MG TABLET (FP) PO ONE (13:55)
[2022-07-08] MEDS ORDERED: PHENAZOPYRIDINE HCL 100 MG TABLET (FP) ONE (14:12)
== END 2022-07-08 14:20 | disposition home or self-care (01) ==
LOC: SUPCPDRO 12:42 → FER 12:42
DX: R10.30 Lower abdominal pain, unspecified (principal); N30.00 Acute cystitis without hematuria
CPT/HCPCS: 81003; 87086; 99283-25

== ENCOUNTER 2022-07-13 20:17 | Emergency (ER) | payer OTHER ==
[2022-07-13 20:27] VITALS: BP 136/83; PULSE 76; RESP 18; TEMP 98.7; BMI 38.9
== END 2022-07-13 23:32 | disposition home or self-care (01) ==
LOC: FER 20:17
DX: K59.00 Constipation, unspecified (principal)
CPT/HCPCS: 74019-TC-FY; 99283-25

== ENCOUNTER 2022-07-20 08:51 | Emergency (ER) | payer OTHER ==
[2022-07-20 09:05] VITALS: BMI 38.3
[2022-07-20] MEDS ORDERED: SODIUM CHLORIDE 1,000 ML IV STA (10:14)
[2022-07-20] MEDS ORDERED: morphine CARPU-JECT 4 MG/1 ML DISP.SYRIN IVPUSH ONE (10:14)
[2022-07-20] MEDS ORDERED: FAMOTIDINE 20 MG/50 ML IVPB 20 MG/50 ML MG IVPB ONE ×2 (10:14→10:37)
[2022-07-20] MEDS ORDERED: morphine SULFATE 4 MG/ML VIAL ONE (10:37)
[2022-07-20] MEDS ORDERED: morphine CARPU-JECT 2 MG/1 ML DISP.SYRIN IM ONE (11:00)
[2022-07-20 11:33] LABS: BASO % 0.7 % (0-2.0); EOS % 0.2 % (0-4.5); HEMATOCRIT 36.8 % (32.4-45.2); HEMOGLOBIN 12.4 GM/dL (10.7-15.3); LYMPH % 32.8 % (8-40); MCHC 33.8 g/dl (32.0-36.0); MEAN CELL VOLUME 82.8 fl (80-96); MEAN PLT VOLUME 8.6 fl (7.5-11.1); MONO % 5.7 % (3.8-10.2); NEUT % 60.6 % (42.8-82.8); PLATELET COUNT 367 10^3/uL (134-434); RBC 4.44 M/mm3 (3.60-5.2); WHITE BLOOD COUNT 7.5 K/mm3 (4.0-10.0)
[2022-07-20 11:47] LABS: INR 1.58 (0.83-1.09); PROTHROMBIN TIME (PATIENT) 18.2 SEC (9.7-13.0)
[2022-07-20 11:58] LABS: POTASSIUM 3.6 mmol/L (3.5-5.1)
[2022-07-20 12:00] LABS: CALCIUM 10.3 mg/dL (8.5-10.1)
[2022-07-20 12:01] LABS: BLOOD UREA NITROGEN 4.8 mg/dL (7-18)
[2022-07-20 12:04] LABS: CREATININE 0.7 mg/dL (0.55-1.3)
[2022-07-20 12:05] LABS: TOT PROT 8.6 g/dl (6.4-8.2)
[2022-07-20 12:06] LABS: BILIRUBIN,TOTAL 0.5 mg/dL (0.2-1)
[2022-07-20] MEDS ORDERED: ONDANSETRON 4 MG/2 ML VIAL IVPUSH ONE (14:22)
[2022-07-20 14:34] LABS: EPI CELLS 23 /uL (0-25.1); HYALINE CASTS 0 /uL (0-3.1); PH,URINE 5.5 (5.0-8.0); URINE APPEARANCE CLEAR; URINE BACTERIA 203 /uL (0-1359); URINE BILIRUBIN NEGATIVE (NEGATIVE); URINE COLOR YELLOW; URINE GLUCOSE (UA) NEGATIVE (NEGATIVE); URINE KETONE TRACE (NEGATIVE); URINE LEUK ESTERASE TRACE (NEGATIVE); URINE NITRITE NEGATIVE (NEGATIVE); URINE PROTEIN NEGATIVE (NEGATIVE); URINE RBC 146 /uL (0-23.9); URINE UROBILINOGEN 0.2 mg/dL (0.2-1.0); URINE WBC 23 /uL (0-25.8)
[2022-07-20 14:42] VITALS: BP 105/62; PULSE 74; RESP 18; TEMP 98.1
[2022-07-20] MEDS ORDERED: ONDANSETRON 4 MG/2 ML VIAL ONE (14:45)
== END 2022-07-20 16:18 | disposition home or self-care (01) ==
LOC: JER 08:51
PROC: 3E033GC Introduction of Other Therapeutic Substance into Peripheral Vein, Percutaneous Approach (ICD-10-PCS; principal; 2022-07-20)
PROC: 3E033GC Introduction of Other Therapeutic Substance into Peripheral Vein, Percutaneous Approach (ICD-10-PCS; 2022-07-20)
PROC: 3E023GC Introduction of Other Therapeutic Substance into Muscle, Percutaneous Approach (ICD-10-PCS; 2022-07-20)
DX: R10.13 Epigastric pain (principal); R10.32 Left lower quadrant pain; R11.0 Nausea; R63.0 Anorexia
CPT/HCPCS: 36415; 74177-TC; 80053; 81003; 83690; 84484; 85025; 85610; 93005; 93010; 99285-25; Q9967

== ENCOUNTER 2022-07-23 16:23 | Emergency (ER) | payer OTHER ==
[2022-07-23 16:32] VITALS: BP 122/70; PULSE 97; RESP 18; TEMP 99.3; BMI 38.3
[2022-07-23] MEDS ORDERED: SODIUM CHLORIDE 0.9% 500 ML INFUS.BAG IV ONE (18:13)
[2022-07-23 19:56] LABS: BASO % 0.5 % (0-2.0); EOS % 0.2 % (0-4.5); HEMATOCRIT 33.7 % (32.4-45.2); HEMOGLOBIN 11.2 GM/dL (10.7-15.3); LYMPH % 17.2 % (8-40); MCH 27.4 pg (25.7-33.7); MCHC 33.2 g/dl (32.0-36.0); MEAN CELL VOLUME 82.4 fl (80-96); MEAN PLT VOLUME 7.6 fl (7.5-11.1); MONO % 13.4 % (3.8-10.2); NEUT % 68.7 % (42.8-82.8); PLATELET COUNT 352 10^3/uL (134-434); RBC 4.09 M/mm3 (3.60-5.2); RDW 14.5 % (11.6-15.6); WHITE BLOOD COUNT 5.6 K/mm3 (4.0-10.0)
[2022-07-23 20:09] LABS: POTASSIUM 3.1 mmol/L (3.5-5.1)
[2022-07-23 20:11] LABS: CALCIUM 9.7 mg/dL (8.5-10.1)
[2022-07-23 20:12] LABS: ALBUMIN 3.5 g/dl (3.4-5.0); BLOOD UREA NITROGEN 7.9 mg/dL (7-18)
[2022-07-23 20:15] LABS: CREATININE 0.8 mg/dL (0.55-1.3)
[2022-07-23 20:16] LABS: BILIRUBIN,TOTAL 0.3 mg/dL (0.2-1); TOT PROT 7.6 g/dl (6.4-8.2)
[2022-07-23] MEDS ORDERED: POTASSIUM CHLORIDE ORAL LIQUID 20 MEQ/15 ML PO ONE (20:20)
[2022-07-23] MEDS ORDERED: POTASSIUM CHLORIDE ORAL LIQUID 20 MEQ/15 ML ONE (20:24)
== END 2022-07-23 22:19 | disposition home or self-care (01) ==
LOC: JER 16:23
DX: E87.6 Hypokalemia (principal); R00.2 Palpitations; R07.89 Other chest pain; R42 Dizziness and giddiness; R06.02 Shortness of breath; R41.0 Disorientation, unspecified
CPT/HCPCS: 36415; 71045-TC-FY; 80053; 83690; 84484; 84703; 85025; 93005; 93010; 99285-25

== ENCOUNTER 2022-08-22 13:51 | Emergency (ER) | payer OTHER ==
[2022-08-22 14:06] VITALS: BP 127/67; PULSE 81; RESP 18; TEMP 98.7; BMI 30.3
[2022-08-22] MEDS ORDERED: ACETAMINOPHEN 1000 MG/100 ML BAG IVPB ONE (15:30)
[2022-08-22] MEDS ORDERED: ACETAMINOPHEN INJECTION 100 ML IVPB ONE (15:40)
[2022-08-22 16:03] LABS: BASO % 0.9 % (0-2.0); EOS % 0.5 % (0-4.5); HEMATOCRIT 36.2 % (32.4-45.2); LYMPH % 25.8 % (8-40); MCH 27.5 pg (25.7-33.7); MEAN CELL VOLUME 83.4 fl (80-96); MEAN PLT VOLUME 8.6 fl (7.5-11.1); MONO % 5.6 % (3.8-10.2); NEUT % 67.2 % (42.8-82.8); PLATELET COUNT 357 10^3/uL (134-434); RBC 4.34 M/mm3 (3.60-5.2); RDW 15.1 % (11.6-15.6); WHITE BLOOD COUNT 9.1 K/mm3 (4.0-10.0)
[2022-08-22 16:14] LABS: ALBUMIN 3.6 g/dl (3.4-5.0); CALCIUM 10.7 mg/dL (8.5-10.1)
[2022-08-22 16:15] LABS: BLOOD UREA NITROGEN 9.9 mg/dL (7-18)
[2022-08-22 16:17] LABS: CREATININE 0.8 mg/dL (0.55-1.3)
[2022-08-22 16:19] LABS: BILIRUBIN,TOTAL 0.4 mg/dL (0.2-1); TOT PROT 7.8 g/dl (6.4-8.2)
[2022-08-22] MEDS ORDERED: FAMOTIDINE 20 MG TABLET PO ONE (19:30)
[2022-08-22] MEDS ORDERED: FAMOTIDINE 20 MG TABLET ONE (19:32)
== END 2022-08-22 19:37 | disposition home or self-care (01) ==
LOC: JER 13:51 → JERFT 13:51 → JER 19:37
PROC: 3E033NZ Introduction of Analgesics, Hypnotics, Sedatives into Peripheral Vein, Percutaneous Approach (ICD-10-PCS; principal; 2022-08-22)
DX: R07.2 Precordial pain (principal); S89.92XD Unspecified injury of left lower leg, subsequent encounter; R22.42 Localized swelling, mass and lump, left lower limb; W22.8XXD Striking against or struck by other objects, subsequent encounter
CPT/HCPCS: 36415; 71046-TC-FY; 71275-TC; 80053; 84484; 84703; 85025; 93005; 93010; 93970-TC; 99285-25; Q9967

== ENCOUNTER 2022-09-10 17:35 | Emergency (ER) | payer OTHER ==
[2022-09-10 17:50] VITALS: BP 129/75; PULSE 78; RESP 18; TEMP 98.2; BMI 37.5
[2022-09-10] MEDS ORDERED: ACETAMINOPHEN 325 MG TABLET (FP) PO ONE (20:30)
[2022-09-10 20:38] LABS: BASO % 0.9 % (0-2.0); EOS % 0.6 % (0-4.5); HEMATOCRIT 35.4 % (32.4-45.2); HEMOGLOBIN 11.3 GM/dL (10.7-15.3); LYMPH % 27.6 % (8-40); MCH 27.1 pg (25.7-33.7); MCHC 31.8 g/dl (32.0-36.0); MEAN CELL VOLUME 85.1 fl (80-96); MEAN PLT VOLUME 8.6 fl (7.5-11.1); NEUT % 65.9 % (42.8-82.8); PLATELET COUNT 315 10^3/uL (134-434); RBC 4.16 M/mm3 (3.60-5.2); RDW 14.2 % (11.6-15.6); WHITE BLOOD COUNT 9.6 K/mm3 (4.0-10.0)
[2022-09-10 21:12] LABS: POTASSIUM 3.9 mmol/L (3.5-5.1)
[2022-09-10 21:15] LABS: ALBUMIN 3.5 g/dl (3.4-5.0); CALCIUM 9.9 mg/dL (8.5-10.1)
[2022-09-10 21:16] LABS: MAGNESIUM 2.1 mg/dL (1.8-2.4)
[2022-09-10 21:19] LABS: CREATININE 0.9 mg/dL (0.55-1.3)
[2022-09-10 21:20] LABS: BILIRUBIN,TOTAL 0.3 mg/dL (0.2-1); TOT PROT 7.5 g/dl (6.4-8.2)
[2022-09-10] MEDS ORDERED: ACETAMINOPHEN 325 MG TABLET (FP) ONE (21:34)
== END 2022-09-11 00:12 | disposition home or self-care (01) ==
LOC: JER 17:35
DX: R07.9 Chest pain, unspecified (principal); M79.89 Other specified soft tissue disorders
CPT/HCPCS: 36415; 71045-TC-FY; 71275-TC; 80053; 83735; 84484; 85025; 93005; 93010; 93970-TC; 99285-25; Q9967

== ENCOUNTER 2022-10-23 18:07 | Emergency (ER) | payer OTHER ==
[2022-10-23 18:17] VITALS: BP 127/72; PULSE 72; RESP 18; TEMP 98.2; BMI 35.9
[2022-10-23] MEDS ORDERED: ACETAMINOPHEN 1000 MG/100 ML BAG IVPB ONE (18:43)
[2022-10-23] MEDS ORDERED: SODIUM CHLORIDE 0.9% 500 ML INFUS.BAG IV ONE (18:43)
[2022-10-23] MEDS ORDERED: METOCLOPRAMIDE HCL INJECTION 10 MG/2 ML VIAL IVPB ONE (18:43)
[2022-10-23] MEDS ORDERED: METOCLOPRAMIDE HCL INJECTION 10 MG/2 ML VIAL ONE (19:05)
[2022-10-23] MEDS ORDERED: ACETAMINOPHEN INJECTION 100 ML IVPB ONE (19:05)
[2022-10-23 19:33] LABS: BASO % 0.9 % (0-2.0); EOS % 0.5 % (0-4.5); HEMATOCRIT 37.5 % (32.4-45.2); HEMOGLOBIN 12.3 GM/dL (10.7-15.3); LYMPH % 45.6 % (8-40); MCHC 32.8 g/dl (32.0-36.0); MEAN CELL VOLUME 82.3 fl (80-96); MEAN PLT VOLUME 8.5 fl (7.5-11.1); MONO % 6.9 % (3.8-10.2); NEUT % 46.1 % (42.8-82.8); PLATELET COUNT 269 10^3/uL (134-434); RBC 4.56 M/mm3 (3.60-5.2); RDW 14.3 % (11.6-15.6); WHITE BLOOD COUNT 7.4 K/mm3 (4.0-10.0)
[2022-10-23 19:41] LABS: INR 1.07 (0.83-1.09); PROTHROMBIN TIME (PATIENT) 12.4 SEC (9.7-13.0)
[2022-10-23 19:43] LABS: ACTIVATED PTT 28.8 SECONDS (25.2-36.5)
[2022-10-23 19:51] LABS: POTASSIUM 3.8 mmol/L (3.5-5.1)
[2022-10-23 19:53] LABS: ALBUMIN 3.4 g/dl (3.4-5.0); BLOOD UREA NITROGEN 14.7 mg/dL (7-18); CALCIUM 9.5 mg/dL (8.5-10.1)
[2022-10-23 19:57] LABS: CREATININE 0.9 mg/dL (0.55-1.3)
[2022-10-23 19:58] LABS: BILIRUBIN,TOTAL 0.4 mg/dL (0.2-1); TOT PROT 7.2 g/dl (6.4-8.2)
== END 2022-10-23 22:22 | disposition home or self-care (01) ==
LOC: JER 18:07
PROC: 3E033NZ Introduction of Analgesics, Hypnotics, Sedatives into Peripheral Vein, Percutaneous Approach (ICD-10-PCS; principal; 2022-10-23)
PROC: 3E033GC Introduction of Other Therapeutic Substance into Peripheral Vein, Percutaneous Approach (ICD-10-PCS; 2022-10-23)
DX: R07.89 Other chest pain (principal); R51.9 Headache, unspecified
CPT/HCPCS: 36415; 71045-TC-FY; 80053; 84484; 85025; 85610; 85730; 93005; 93010; 99285-25

== ENCOUNTER 2022-11-30 12:12 | Emergency (ER) | payer OTHER ==
[2022-11-30 12:21] VITALS: BP 140/84; PULSE 73; RESP 18; TEMP 97.8; BMI 39.1
[2022-11-30] MEDS ORDERED: SODIUM CHLORIDE 0.9% 500 ML INFUS.BAG IV ONE (12:51)
[2022-11-30] MEDS ORDERED: ACETAMINOPHEN 1000 MG/100 ML BAG IVPB ONE (12:51)
[2022-11-30] MEDS ORDERED: ACETAMINOPHEN INJECTION 100 ML IVPB ONE (13:06)
[2022-11-30 14:52] LABS: BASO % 0.4 % (0-2.0); EOS % 0.2 % (0-4.5); HEMOGLOBIN 12.1 GM/dL (10.7-15.3); LYMPH % 34.8 % (8-40); MCH 27.9 pg (25.7-33.7); MCHC 33.7 g/dl (32.0-36.0); MEAN CELL VOLUME 82.7 fl (80-96); MONO % 4.8 % (3.8-10.2); NEUT % 59.8 % (42.8-82.8); PLATELET COUNT 287 10^3/uL (134-434); RBC 4.35 M/mm3 (3.60-5.2); RDW 14.9 % (11.6-15.6); WHITE BLOOD COUNT 7.1 K/mm3 (4.0-10.0)
[2022-11-30 15:01] LABS: INR 1.29 (0.83-1.09); PROTHROMBIN TIME (PATIENT) 14.9 SEC (9.7-13.0)
[2022-11-30 15:29] LABS: POTASSIUM 3.4 mmol/L (3.5-5.1)
[2022-11-30 15:30] LABS: CALCIUM 10.1 mg/dL (8.5-10.1)
[2022-11-30 15:31] LABS: BLOOD UREA NITROGEN 12.7 mg/dL (7-18)
[2022-11-30 15:35] LABS: CREATININE 0.8 mg/dL (0.55-1.3)
== END 2022-11-30 15:52 | disposition home or self-care (01) ==
LOC: JER 12:12
PROC: 3E033NZ Introduction of Analgesics, Hypnotics, Sedatives into Peripheral Vein, Percutaneous Approach (ICD-10-PCS; principal; 2022-11-30)
DX: G43.101 Migraine with aura, not intractable, with status migrainosus (principal)
CPT/HCPCS: 36415; 70450-TC; 80048; 83735; 85025; 85610; 86850; 86900; 86901; 99284-25

== ENCOUNTER 2022-12-20 10:47 | Emergency (ER) | payer OTHER ==
[2022-12-20 10:55] VITALS: BMI 37.5
[2022-12-20] MEDS ORDERED: ACETAMINOPHEN 1000 MG/100 ML BAG IVPB ONE (11:18)
[2022-12-20] MEDS ORDERED: ACETAMINOPHEN INJECTION 100 ML IVPB ONE (11:41)
[2022-12-20 11:59] LABS: BASO % 0.8 % (0-2.0); EOS % 0.9 % (0-4.5); HEMATOCRIT 37.4 % (32.4-45.2); LYMPH % 35.4 % (8-40); MCH 27.3 pg (25.7-33.7); MCHC 32.1 g/dl (32.0-36.0); MEAN CELL VOLUME 84.9 fl (80-96); MEAN PLT VOLUME 8.1 fl (7.5-11.1); MONO % 6.4 % (3.8-10.2); NEUT % 56.5 % (42.8-82.8); PLATELET COUNT 287 10^3/uL (134-434); RDW 15.6 % (11.6-15.6); WHITE BLOOD COUNT 8.5 K/mm3 (4.0-10.0)
[2022-12-20 12:18] LABS: POTASSIUM 3.7 mmol/L (3.5-5.1)
[2022-12-20 12:20] LABS: BLOOD UREA NITROGEN 16.4 mg/dL (7-18); CALCIUM 9.5 mg/dL (8.5-10.1)
[2022-12-20 12:21] LABS: ALBUMIN 3.5 g/dl (3.4-5.0)
[2022-12-20 12:25] LABS: BILIRUBIN,TOTAL 0.4 mg/dL (0.2-1); TOT PROT 7.7 g/dl (6.4-8.2)
[2022-12-20 12:28] LABS: N-TERMINAL BNP 45.8 pg/ml (5-125)
[2022-12-20 16:22] VITALS: BP 124/83; PULSE 66; RESP 16; TEMP 97.8
== END 2022-12-20 16:55 | disposition home or self-care (01) ==
LOC: JER 10:47
DX: R07.9 Chest pain, unspecified (principal); M79.605 Pain in left leg; M25.462 Effusion, left knee; R22.42 Localized swelling, mass and lump, left lower limb; Z86.711 Personal history of pulmonary embolism
CPT/HCPCS: 36415; 71045-TC-FY; 73562-TC-LT-FY; 80053; 83880; 84484; 85025; 93005; 93010; 93971-TC; 99285-25

== ENCOUNTER 2022-12-21 08:54 | Emergency (ER) | payer OTHER ==
[2022-12-21 09:16] VITALS: BP 121/71; PULSE 65; RESP 98; TEMP 98.6; BMI 37.5
[2022-12-21] MEDS ORDERED: MAG HYDROX/AL HYDROX/SIMETH -MYLANTA- ORAL SUSPENSION PO ONE (10:33)
[2022-12-21] MEDS ORDERED: MAG HYDROX/AL HYDROX/SIMETH 30 ML UNIT-DOSE CUP ONE (11:00)
[2022-12-21 11:27] LABS: BASO % 0.7 % (0-2.0); EOS % 0.5 % (0-4.5); HEMATOCRIT 38.8 % (32.4-45.2); HEMOGLOBIN 12.7 GM/dL (10.7-15.3); LYMPH % 34.1 % (8-40); MCH 27.2 pg (25.7-33.7); MCHC 32.6 g/dl (32.0-36.0); MEAN CELL VOLUME 83.3 fl (80-96); MEAN PLT VOLUME 8.9 fl (7.5-11.1); MONO % 4.5 % (3.8-10.2); NEUT % 60.2 % (42.8-82.8); PLATELET COUNT 301 10^3/uL (134-434); RBC 4.66 M/mm3 (3.60-5.2); WHITE BLOOD COUNT 6.7 K/mm3 (4.0-10.0)
[2022-12-21 11:47] LABS: POTASSIUM 3.9 mmol/L (3.5-5.1)
[2022-12-21 11:49] LABS: CALCIUM 9.9 mg/dL (8.5-10.1)
[2022-12-21 11:50] LABS: ALBUMIN 3.7 g/dl (3.4-5.0); BLOOD UREA NITROGEN 14.3 mg/dL (7-18)
[2022-12-21 11:53] LABS: CREATININE 0.8 mg/dL (0.55-1.3)
[2022-12-21 11:54] LABS: BILIRUBIN,TOTAL 0.6 mg/dL (0.2-1); TOT PROT 8.1 g/dl (6.4-8.2)
== END 2022-12-21 13:23 | disposition home or self-care (01) ==
LOC: JER 08:54
DX: R07.9 Chest pain, unspecified (principal); M54.9 Dorsalgia, unspecified; G89.29 Other chronic pain
CPT/HCPCS: 36415; 76705-TC; 80053; 83605; 83690; 84484; 85025; 85379; 93005; 93010; 99284-25

== ENCOUNTER 2023-01-12 12:55 | Emergency (ER) | payer OTHER ==
[2023-01-12 12:59] VITALS: BP 141/85; PULSE 79; RESP 18; TEMP 98.4; BMI 37.5
[2023-01-12] MEDS ORDERED: KETOROLAC TROMETHAMINE 30 MG/1 ML VIAL IVPUSH ONE (14:01)
[2023-01-12] MEDS ORDERED: FAMOTIDINE 20 MG/50 ML IVPB 20 MG/50 ML MG IVPB ONE ×2 (14:01→14:12)
[2023-01-12] MEDS ORDERED: ACETAMINOPHEN 1000 MG/100 ML BAG IVPB ONE (14:03)
[2023-01-12] MEDS ORDERED: ONDANSETRON 4 MG/2 ML VIAL ONE (14:12)
[2023-01-12] MEDS ORDERED: ACETAMINOPHEN INJECTION 100 ML IVPB ONE (14:12)
[2023-01-12] MEDS ORDERED: ONDANSETRON 4 MG/2 ML VIAL IVPUSH ONE (14:13)
[2023-01-12 14:36] LABS: BASO % 0.4 % (0-2.0); EOS % 0.5 % (0-4.5); HEMATOCRIT 38.7 % (32.4-45.2); HEMOGLOBIN 12.7 GM/dL (10.7-15.3); LYMPH % 26.7 % (8-40); MCH 27.8 pg (25.7-33.7); MCHC 32.8 g/dl (32.0-36.0); MEAN CELL VOLUME 84.7 fl (80-96); MEAN PLT VOLUME 8.2 fl (7.5-11.1); MONO % 6.1 % (3.8-10.2); NEUT % 66.3 % (42.8-82.8); PLATELET COUNT 312 10^3/uL (134-434); RBC 4.57 M/mm3 (3.60-5.2); RDW 15.9 % (11.6-15.6)
[2023-01-12 14:40] LABS: EPI CELLS 5 /uL (0-25.1); HYALINE CASTS 0 /uL (0-3.1); PH,URINE 5.5 (5.0-8.0); URINE APPEARANCE CLEAR; URINE BACTERIA 72 /uL (0-1359); URINE BILIRUBIN NEGATIVE (NEGATIVE); URINE COLOR YELLOW; URINE GLUCOSE (UA) NEGATIVE (NEGATIVE); URINE KETONE NEGATIVE (NEGATIVE); URINE LEUK ESTERASE TRACE (NEGATIVE); URINE NITRITE NEGATIVE (NEGATIVE); URINE PROTEIN NEGATIVE (NEGATIVE); URINE RBC 9 /uL (0-23.9); URINE UROBILINOGEN 0.2 mg/dL (0.2-1.0); URINE WBC 8 /uL (0-25.8)
[2023-01-12 15:06] LABS: POTASSIUM 3.8 mmol/L (3.5-5.1)
[2023-01-12 15:11] LABS: CALCIUM 10.2 mg/dL (8.5-10.1)
[2023-01-12 15:12] LABS: ALBUMIN 3.7 g/dl (3.4-5.0); BLOOD UREA NITROGEN 9.7 mg/dL (7-18)
[2023-01-12 15:15] LABS: CREATININE 0.8 mg/dL (0.55-1.3)
[2023-01-12 15:16] LABS: BILIRUBIN,TOTAL 0.7 mg/dL (0.2-1); TOT PROT 7.8 g/dl (6.4-8.2)
== END 2023-01-12 19:12 | disposition home or self-care (01) ==
LOC: JER 12:55
PROC: 3E033GC Introduction of Other Therapeutic Substance into Peripheral Vein, Percutaneous Approach (ICD-10-PCS; principal; 2023-01-12)
PROC: 3E033NZ Introduction of Analgesics, Hypnotics, Sedatives into Peripheral Vein, Percutaneous Approach (ICD-10-PCS; 2023-01-12)
PROC: 3E033GC Introduction of Other Therapeutic Substance into Peripheral Vein, Percutaneous Approach (ICD-10-PCS; 2023-01-12)
DX: R10.32 Left lower quadrant pain (principal); R10.13 Epigastric pain; R11.0 Nausea; I88.0 Nonspecific mesenteric lymphadenitis
CPT/HCPCS: 36415; 74177-TC; 80053; 81003; 83690; 84484; 85025; 87086; 93005; 93010; 99285-25; Q9967

== ENCOUNTER 2023-02-01 01:35 | Emergency (ER) | payer OTHER ==
[2023-02-01 01:41] VITALS: BMI 37.5
[2023-02-01] MEDS ORDERED: ACETAMINOPHEN 1000 MG/100 ML BAG IVPB ONE (02:40)
[2023-02-01] MEDS ORDERED: ONDANSETRON 4 MG/2 ML VIAL IVPUSH ONE (02:40)
[2023-02-01] MEDS ORDERED: ACETAMINOPHEN INJECTION 100 ML IVPB ONE (03:10)
[2023-02-01] MEDS ORDERED: ONDANSETRON 4 MG/2 ML VIAL ONE (03:10)
[2023-02-01 03:33] LABS: POTASSIUM 3.4 mmol/L (3.5-5.1)
[2023-02-01 03:35] LABS: ALBUMIN 3.5 g/dl (3.4-5.0); BLOOD UREA NITROGEN 13.4 mg/dL (7-18); CALCIUM 9.7 mg/dL (8.5-10.1)
[2023-02-01 03:38] LABS: CREATININE 0.9 mg/dL (0.55-1.3)
[2023-02-01 03:40] LABS: BILIRUBIN,TOTAL 0.3 mg/dL (0.2-1); TOT PROT 7.8 g/dl (6.4-8.2)
[2023-02-01 04:37] LABS: BASO % 0.7 % (0-2.0); EOS % 0.8 % (0-4.5); HEMATOCRIT 36.5 % (32.4-45.2); LYMPH % 25.4 % (8-40); MCH 28.1 pg (25.7-33.7); MCHC 32.8 g/dl (32.0-36.0); MEAN CELL VOLUME 85.7 fl (80-96); MEAN PLT VOLUME 8.1 fl (7.5-11.1); NEUT % 67.1 % (42.8-82.8); PLATELET COUNT 345 10^3/uL (134-434); RBC 4.25 M/mm3 (3.60-5.2); RDW 15.4 % (11.6-15.6); WHITE BLOOD COUNT 7.7 K/mm3 (4.0-10.0)
[2023-02-01 04:41] LABS: EPI CELLS 34 /uL (0-25.1); HYALINE CASTS 0 /uL (0-3.1); PH,URINE 5.5 (5.0-8.0); URINE APPEARANCE CLOUDY; URINE BACTERIA 1429 /uL (0-1359); URINE BILIRUBIN NEGATIVE (NEGATIVE); URINE COLOR YELLOW; URINE GLUCOSE (UA) NEGATIVE (NEGATIVE); URINE KETONE NEGATIVE (NEGATIVE); URINE LEUK ESTERASE 2+ (NEGATIVE); URINE NITRITE NEGATIVE (NEGATIVE); URINE PROTEIN NEGATIVE (NEGATIVE); URINE RBC 28 /uL (0-23.9); URINE UROBILINOGEN 0.2 mg/dL (0.2-1.0); URINE WBC 176 /uL (0-25.8)
[2023-02-01] MEDS ORDERED: CEFTRIAXONE 1 GM in DEXTROSE 5%-WATER - 50 ML IVPB ONE (06:01)
[2023-02-01] MEDS ORDERED: CEFTRIAXONE 1 GM/50 ML BAG ONE (06:29)
[2023-02-01] MEDS ORDERED: morphine CARPU-JECT 2 MG/1 ML DISP.SYRIN IVPUSH ONE (06:36)
[2023-02-01] MEDS ORDERED: FAMOTIDINE 20 MG/50 ML IVPB 20 MG/50 ML MG IVPB ONE ×2 (06:36→06:45)
[2023-02-01 07:42] VITALS: BP 142/89; PULSE 72; RESP 16; TEMP 98
[2023-02-01] MEDS: ACETAMINOPHEN 325 MG TABLET (FP) PO ONE ×2 (08:31→08:34)
[2023-02-01] MEDS ORDERED: ACETAMINOPHEN 325 MG TABLET (FP) ONE (08:31)
[2023-02-01] MEDS ORDERED: KETOROLAC TROMETHAMINE 15 MG/ML VIAL IVPUSH ONE (08:46)
[2023-02-01] MEDS ORDERED: KETOROLAC TROMETHAMINE 15 MG/ML VIAL ONE (08:48)
== END 2023-02-01 09:00 | disposition home or self-care (01) ==
LOC: JER 01:35
PROC: 3E03329 Introduction of Other Anti-infective into Peripheral Vein, Percutaneous Approach (ICD-10-PCS; principal; 2023-02-01)
PROC: 3E033GC Introduction of Other Therapeutic Substance into Peripheral Vein, Percutaneous Approach (ICD-10-PCS; 2023-02-01)
PROC: 3E033GC Introduction of Other Therapeutic Substance into Peripheral Vein, Percutaneous Approach (ICD-10-PCS; 2023-02-01)
PROC: 3E033GC Introduction of Other Therapeutic Substance into Peripheral Vein, Percutaneous Approach (ICD-10-PCS; 2023-02-01)
PROC: 3E033GC Introduction of Other Therapeutic Substance into Peripheral Vein, Percutaneous Approach (ICD-10-PCS; 2023-02-01)
PROC: 3E033GC Introduction of Other Therapeutic Substance into Peripheral Vein, Percutaneous Approach (ICD-10-PCS; 2023-02-01)
DX: R10.13 Epigastric pain (principal); R11.0 Nausea
CPT/HCPCS: 36415; 74177-TC; 80053; 81003; 83605; 83690; 83735; 84484; 85025; 87086; 93005; 93010; 99285-25

== ENCOUNTER 2023-03-02 09:40 | Emergency (ER) | payer OTHER ==
[2023-03-02 10:23] VITALS: BP 111/69; PULSE 78; RESP 17; TEMP 98.1; BMI 37.5
[2023-03-02] MEDS ORDERED: ACETAMINOPHEN 1000 MG/100 ML BAG IVPB ONE (10:38)
[2023-03-02] MEDS ORDERED: ACETAMINOPHEN INJECTION 100 ML IVPB ONE (10:56)
[2023-03-02 12:17] LABS: BASO % 0.8 % (0-2.0); HEMATOCRIT 37.7 % (32.4-45.2); LYMPH % 31.2 % (8-40); MCH 27.8 pg (25.7-33.7); MCHC 31.9 g/dl (32.0-36.0); MEAN PLT VOLUME 8.8 fl (7.5-11.1); MONO % 5.6 % (3.8-10.2); NEUT % 61.4 % (42.8-82.8); PLATELET COUNT 322 10^3/uL (134-434); RBC 4.33 M/mm3 (3.60-5.2); WHITE BLOOD COUNT 8.8 K/mm3 (4.0-10.0)
[2023-03-02 12:24] LABS: INR 1.24 (0.83-1.09); PROTHROMBIN TIME (PATIENT) 14.4 SEC (9.7-13.0)
[2023-03-02 12:26] LABS: ACTIVATED PTT 30.6 SECONDS (25.2-36.5)
[2023-03-02 12:36] LABS: POTASSIUM 3.8 mmol/L (3.5-5.1)
[2023-03-02 12:44] LABS: ALBUMIN 3.7 g/dl (3.4-5.0); BLOOD UREA NITROGEN 9.5 mg/dL (7-18); CALCIUM 10.1 mg/dL (8.5-10.1)
[2023-03-02 12:47] LABS: CREATININE 0.9 mg/dL (0.55-1.3)
[2023-03-02 12:49] LABS: BILIRUBIN,TOTAL 0.4 mg/dL (0.2-1); TOT PROT 8.7 g/dl (6.4-8.2)
== END 2023-03-02 13:50 | disposition admitted as inpatient to this hospital (09) ==
LOC: JER 09:40
PROC: 3E033NZ Introduction of Analgesics, Hypnotics, Sedatives into Peripheral Vein, Percutaneous Approach (ICD-10-PCS; principal; 2023-03-02)
DX: R07.89 Other chest pain (principal); R06.02 Shortness of breath; Z20.822 Contact with and (suspected) exposure to COVID-19
CPT/HCPCS: 0241U-QW; 36415; 71046-TC-FY; 80053; 84484; 84702; 85025; 85379; 85610; 85730; 93005; 93010; 99285-25

== ENCOUNTER 2023-03-10 09:55 | Emergency (ER) | payer OTHER ==
[2023-03-10 10:14] VITALS: BMI 37.9
[2023-03-10 11:07] LABS: HEMATOCRIT 37.2 % (32.4-45.2); HEMOGLOBIN 12.2 GM/dL (10.7-15.3); LYMPH % 26.8 % (8-40); MCH 28.2 pg (25.7-33.7); MCHC 32.7 g/dl (32.0-36.0); MEAN CELL VOLUME 86.2 fl (80-96); MEAN PLT VOLUME 8.7 fl (7.5-11.1); MONO % 4.5 % (3.8-10.2); NEUT % 67.1 % (42.8-82.8); PLATELET COUNT 301 10^3/uL (134-434); RBC 4.31 M/mm3 (3.60-5.2); RDW 14.8 % (11.6-15.6); WHITE BLOOD COUNT 7.7 K/mm3 (4.0-10.0)
[2023-03-10 11:08] LABS: BASO % 0.7 % (0-2.0); EOS % 0.9 % (0-4.5)
[2023-03-10 11:23] LABS: POTASSIUM 3.7 mmol/L (3.5-5.1)
[2023-03-10 11:25] LABS: CALCIUM 10.7 mg/dL (8.5-10.1)
[2023-03-10 11:26] LABS: ALBUMIN 3.7 g/dl (3.4-5.0); BLOOD UREA NITROGEN 8.9 mg/dL (7-18)
[2023-03-10 11:29] LABS: CREATININE 0.8 mg/dL (0.55-1.3)
[2023-03-10 11:30] LABS: TOT PROT 8.3 g/dl (6.4-8.2)
[2023-03-10 11:31] LABS: BILIRUBIN,TOTAL 0.5 mg/dL (0.2-1)
[2023-03-10 11:34] LABS: N-TERMINAL BNP 65.6 pg/ml (5-125)
[2023-03-10 11:40] LABS: ACTIVATED PTT 32.8 SECONDS (25.2-36.5); INR 1.18 (0.83-1.09); PROTHROMBIN TIME (PATIENT) 13.7 SEC (9.7-13.0)
[2023-03-10] MEDS ORDERED: LIDOCAINE VISCOUS 2% ORAL/TOP 15 ML UNIT-DOSE CUP MM ONE (12:42)
[2023-03-10] MEDS ORDERED: MAG HYDROX/AL HYDROX/SIMETH 30 ML UNIT-DOSE CUP ONE (14:16)
[2023-03-10] MEDS ORDERED: LIDOCAINE VISCOUS 2% ORAL/TOP 15 ML UNIT-DOSE CUP ONE (14:16)
[2023-03-10] MEDS ORDERED: FAMOTIDINE 20 MG TABLET ONE (14:16)
[2023-03-10] MEDS: FAMOTIDINE 20 MG TABLET PO ONE (14:21)
[2023-03-10] MEDS: MAG HYDROX/AL HYDROX/SIMETH -MYLANTA- ORAL SUSPENSION PO ONE (14:21)
[2023-03-10] MEDS ORDERED: KETOROLAC TROMETHAMINE 30 MG/1 ML VIAL ONE (14:28)
[2023-03-10] MEDS: KETOROLAC TROMETHAMINE 30 MG/1 ML VIAL IVPUSH ONE (14:34)
[2023-03-10 14:52] VITALS: BP 128/80; PULSE 63; RESP 17; TEMP 98.2
== END 2023-03-10 15:54 | disposition home or self-care (01) ==
LOC: JER 09:55
PROC: 3E0333Z Introduction of Anti-inflammatory into Peripheral Vein, Percutaneous Approach (ICD-10-PCS; principal; 2023-03-10)
DX: R07.2 Precordial pain (principal); R05.9 Cough, unspecified; R22.43 Localized swelling, mass and lump, lower limb, bilateral; Z20.822 Contact with and (suspected) exposure to COVID-19
CPT/HCPCS: 0241U-QW; 36415; 71046-TC-FY; 80053; 83880; 84484; 85025; 85379; 85610; 85730; 93005; 93010; 93308; 93970-TC; 99285-25

== ENCOUNTER 2023-03-24 09:54 | Emergency (ER) | payer OTHER ==
[2023-03-24 10:03] VITALS: BMI 37.5
[2023-03-24] MEDS ORDERED: ALBUTEROL SO4 2.5/IPRATROPIUM 0.5 INH SOL 3 ML VIAL.NEB. NEB ONE ×2 (10:36→10:45)
[2023-03-24] MEDS ORDERED: predniSONE 20 MG TABLET (UD) PO ONE (10:36)
[2023-03-24] MEDS ORDERED: predniSONE 20 MG TABLET (UD) ONE (10:45)
[2023-03-24 12:56] VITALS: BP 129/79; PULSE 86; RESP 18; TEMP 98
== END 2023-03-24 13:00 | disposition home or self-care (01) ==
LOC: FER 09:54
PROC: 3E0F7GC Introduction of Other Therapeutic Substance into Respiratory Tract, Via Natural or Artificial Opening (ICD-10-PCS; principal; 2023-03-24)
DX: R06.02 Shortness of breath (principal); R05.9 Cough, unspecified; R07.89 Other chest pain; Z20.822 Contact with and (suspected) exposure to COVID-19
CPT/HCPCS: 0241U-QW; 71045-TC-FY; 93005; 99285-25

== ENCOUNTER 2023-03-26 16:50 | Emergency (ER) | payer OTHER ==
[2023-03-26 16:58] VITALS: BP 143/80; PULSE 80; RESP 16; TEMP 98.1; BMI 37.5
[2023-03-26 17:28] LABS: HEMOGLOBIN 12.5 G/dL (10.7-15.3); MCH 28.8 pg (25.7-33.7); MCHC 32.9 g/dl (32.0-36.0); MEAN CELL VOLUME 87.8 fl (80-96); PLATELET COUNT 324.9 10^3/uL (134-434); RBC 4.33 10^6/uL (3.60-5.2); RDW 16.1 % (11.6-15.6); WHITE BLOOD COUNT 10.4 10^3/uL (4.0-10.8)
[2023-03-26 17:41] LABS: PLATELET ESTIMATE SLT INCREASE
[2023-03-26 17:50] LABS: ALBUMIN 4.3 g/dl (3.4-5.0); BILIRUBIN,TOTAL 0.4 mg/dl (0.2-1); CALCIUM 10.2 mg/dl (8.5-10.1); POTASSIUM 3.6 mmol/L (3.5-5.1); TOT PROT 8.1 g/dl (6.4-8.2)
== END 2023-03-26 18:10 | disposition home or self-care (01) ==
LOC: FER 16:50
DX: R07.9 Chest pain, unspecified (principal); M94.0 Chondrocostal junction syndrome [Tietze]
CPT/HCPCS: 36415; 80053; 84484; 85027; 93005; 99284-25

== ENCOUNTER 2023-07-13 09:37 | Emergency (ER) | payer OTHER ==
[2023-07-13 09:51] VITALS: BMI 38.3
[2023-07-13] MEDS ORDERED: METOCLOPRAMIDE HCL INJECTION 10 MG/2 ML VIAL ONE (10:41)
[2023-07-13] MEDS: METOCLOPRAMIDE HCL INJECTION 10 MG/2 ML VIAL IVPUSH ONE (11:03)
[2023-07-13] MEDS: SODIUM CHLORIDE 1,000 ML IV STA (11:03)
[2023-07-13 13:17] VITALS: BP 121/65; PULSE 64; RESP 18; TEMP 97.6
== END 2023-07-13 13:29 | disposition home or self-care (01) ==
LOC: JERFT 09:37
PROC: 3E030GC Introduction of Other Therapeutic Substance into Peripheral Vein, Open Approach (ICD-10-PCS; principal; 2023-07-13)
PROC: 3E030GC Introduction of Other Therapeutic Substance into Peripheral Vein, Open Approach (ICD-10-PCS; 2023-07-13)
PROC: 3E0337Z Introduction of Electrolytic and Water Balance Substance into Peripheral Vein, Percutaneous Approach (ICD-10-PCS; 2023-07-13)
DX: J30.2 Other seasonal allergic rhinitis (principal)
CPT/HCPCS: 70450-TC; 99284-25

== ENCOUNTER 2023-08-03 19:32 | Emergency (ER) | payer OTHER ==
[2023-08-03 19:49] VITALS: BP 124/86; PULSE 57; RESP 19; TEMP 98.4; BMI 38.3
[2023-08-03] MEDS ORDERED: MAG HYDROX/AL HYDROX/SIMETH 30 ML UNIT-DOSE CUP ONE (20:21)
[2023-08-03] MEDS ORDERED: FAMOTIDINE 20 MG/50 ML IVPB 20 MG/50 ML MG IVPB ONE (20:21)
[2023-08-03] MEDS: MAG HYDROX/AL HYDROX/SIMETH 30 ML UNIT-DOSE CUP PO ONE (20:46)
[2023-08-03] MEDS: FAMOTIDINE 20 MG/50 ML IVPB 20 MG/50 ML MG IVPB ONE (20:46)
[2023-08-03 20:52] LABS: BASO % 0.8 % (0-2.0); EOS % 1.2 % (0-4.5); HEMATOCRIT 35.4 % (32.4-45.2); HEMOGLOBIN 11.6 GM/dL (10.7-15.3); LYMPH % 35.1 % (8-40); MCH 28.2 pg (25.7-33.7); MCHC 32.7 g/dl (32.0-36.0); MEAN CELL VOLUME 86.2 fl (80-96); MEAN PLT VOLUME 8.5 fl (7.5-11.1); MONO % 5.1 % (3.8-10.2); NEUT % 57.8 % (42.8-82.8); PLATELET COUNT 295 10^3/uL (134-434); RBC 4.11 M/mm3 (3.60-5.2); RDW 13.7 % (11.6-15.6); WHITE BLOOD COUNT 8.4 K/mm3 (4.0-10.0)
[2023-08-03 21:06] LABS: POTASSIUM 3.4 mmol/L (3.5-5.1)
[2023-08-03 21:08] LABS: ALBUMIN 3.4 g/dl (3.4-5.0); CALCIUM 9.6 mg/dL (8.5-10.1)
[2023-08-03 21:09] LABS: BLOOD UREA NITROGEN 13.8 mg/dL (7-18)
[2023-08-03 21:11] LABS: CREATININE 0.8 mg/dL (0.55-1.3)
[2023-08-03 21:13] LABS: BILIRUBIN,TOTAL 0.2 mg/dL (0.2-1); TOT PROT 7.5 g/dl (6.4-8.2)
[2023-08-03 21:16] LABS: N-TERMINAL BNP 129.4 pg/ml (5-125)
[2023-08-03 21:22] LABS: INR 1.13 (0.83-1.09); PROTHROMBIN TIME (PATIENT) 12.9 SEC (9.7-13.0)
== END 2023-08-03 23:49 | disposition home or self-care (01) ==
LOC: JER 19:32
PROC: 3E033GC Introduction of Other Therapeutic Substance into Peripheral Vein, Percutaneous Approach (ICD-10-PCS; principal; 2023-08-03)
DX: R07.2 Precordial pain (principal); K21.9 Gastro-esophageal reflux disease without esophagitis; Z20.822 Contact with and (suspected) exposure to COVID-19
CPT/HCPCS: 0241U-QW; 36415; 71045-TC-FY; 80053; 83880; 84484; 85025; 85379; 85610; 85730; 93005; 93010; 99285-25

== ENCOUNTER 2023-10-04 07:02 | Emergency (ER) | payer OTHER ==
[2023-10-04 07:15] VITALS: BP 128/76; PULSE 68; RESP 16; TEMP 98.7; BMI 38.3
== END 2023-10-04 08:12 | disposition home or self-care (01) ==
LOC: JERFT 07:02 → JER 07:02 → JERFT 08:12
DX: R20.0 Anesthesia of skin (principal); R20.2 Paresthesia of skin
CPT/HCPCS: 99283-25

== ENCOUNTER 2023-12-01 07:58 | Emergency (ER) | payer OTHER ==
[2023-12-01 08:11] VITALS: BP 144/89; PULSE 69; RESP 18; BMI 37.5
== END 2023-12-01 09:36 | disposition left against medical advice (07) ==
LOC: JER 07:58
DX: R06.02 Shortness of breath (principal)
CPT/HCPCS: 99281-25

== ENCOUNTER 2023-12-12 05:45 | Emergency (ER) | payer OTHER ==
[2023-12-12 05:56] VITALS: BP 130/75; PULSE 65; RESP 18; TEMP 97.6; BMI 38.3
[2023-12-12 07:39] LABS: BASO % 0.5 % (0-2.0); EOS % 1.9 % (0-4.5); HEMATOCRIT 37.9 % (32.4-45.2); HEMOGLOBIN 12.3 GM/dL (10.7-15.3); INR 1.13 (0.83-1.09); LYMPH % 39.6 % (8-40); MCH 28.8 pg (25.7-33.7); MCHC 32.5 g/dl (32.0-36.0); MEAN CELL VOLUME 88.4 fl (80-96); MEAN PLT VOLUME 9.4 fl (7.5-11.1); MONO % 6.2 % (3.8-10.2); NEUT % 51.8 % (42.8-82.8); PLATELET COUNT 298 10^3/uL (134-434); RBC 4.28 M/mm3 (3.60-5.2); RDW 14.5 % (11.6-15.6); WHITE BLOOD COUNT 8.9 K/mm3 (4.0-10.0)
[2023-12-12 07:42] LABS: ACTIVATED PTT 33.1 SECONDS (25.2-36.5)
[2023-12-12] MEDS ORDERED: ACETAMINOPHEN INJECTION 100 ML ONE (07:44)
[2023-12-12] MEDS: ACETAMINOPHEN 1000 MG/100 ML BAG IVPB ONE (07:54)
[2023-12-12 08:09] LABS: POTASSIUM 3.5 mmol/L (3.5-5.1)
[2023-12-12 08:11] LABS: ALBUMIN 3.9 g/dl (3.4-5.0); BLOOD UREA NITROGEN 15.7 mg/dL (7-18); CALCIUM 10.5 mg/dL (8.5-10.1)
[2023-12-12 08:14] LABS: CREATININE 0.9 mg/dL (0.55-1.3)
[2023-12-12 08:16] LABS: BILIRUBIN,TOTAL 0.7 mg/dL (0.2-1); TOT PROT 8.3 g/dl (6.4-8.2)
== END 2023-12-12 09:04 | disposition home or self-care (01) ==
LOC: JER 05:45
PROC: 3E033NZ Introduction of Analgesics, Hypnotics, Sedatives into Peripheral Vein, Percutaneous Approach (ICD-10-PCS; principal; 2023-12-12)
DX: R07.9 Chest pain, unspecified (principal); R06.02 Shortness of breath; M54.9 Dorsalgia, unspecified
CPT/HCPCS: 36415; 71045-TC-FY; 80053; 84484; 85025; 85379; 85610; 85730; 93005; 93010; 99285-25; J0131

== ENCOUNTER → 2023-12-19 | Emergency (ER) | payer OTHER ==
[2023-12-19 08:05] VITALS: BP 125/80; PULSE 65; RESP 18; TEMP 98.4; BMI 34.3
== END ==
LOC: JER 07:44
DX: Z53.21 Procedure and treatment not carried out due to patient leaving prior to being seen by health care provider (principal)
CPT/HCPCS: 99281-25